=== PATIENT | female | born 1960 | race Caucasian/White ===

== ENCOUNTER 2023-03-10 10:31 | Outpatient (OUT) | payer OTHER, SELFPAY ==
--- NOTE | 2023-03-10 10:33 | MM_ITS ---
Patient: VIRGILIO MOREL Exam Date: 03/10/2023 : 1960 Gender:F Ordering : DR JOHANA RIVAS M.D. Admission #: [id number] Family : Order #: [id number] CLICK HERE TO VIEW EXAM RADIOLOGY REPORT PROCEDURE: MM TOMOSYNTHESIS SCREENING BI COMPARISON: MG MAMM SCREEN ELI W CAD, 05/30/2017. MG MAMM ELI SCRN W CAD DIG, 12/04/2013. INDICATIONS: Screening Calculator Name NCI Breast Cancer Risk Assessment Tool 5 Year Breast Cancer Risk 2.00% Lifetime Breast Cancer Risk 9.00% Personal Breast Cancer No Personal Ovarian Cancer No Treatments None Family Cancers None LOCATION: [facility] BREAST COMPOSITION: Heterogeneously dense,which may obscure small masses. FINDINGS: DIAGNOSTIC CATEGORY 2--BENIGN FINDING: RIGHT BREAST: No significant suspicious finding. Scattered benign-appearing lymph nodes are present. No significant change has occurred. LEFT BREAST: No significant suspicious finding. Scattered benign-appearing lymph nodes are present. No significant change has occurred. RECOMMENDATIONS: ROUTINE MAMMOGRAM AND CLINICAL EVALUATION IN 12 MONTHS. PLEASE NOTE: A NORMAL MAMMOGRAM DOES NOT EXCLUDE THE POSSIBILITY OF BREAST CANCER. A CLINICALLY SUSPICIOUS PALPABLE LUMP SHOULD BE BIOPSIED. Dictated by: Eleazar Valle M.D. on 03/10/2023 at 14:29 Approved by: Eleazar Valle M.D. on 03/10/2023 at 14:32
== END 2023-03-10 10:32 | disposition home or self-care (01) ==
LOC: MAMMO 10:31
PROVIDERS: PCP Family Medicine; Visit Provider Family Medicine
DX: Z12.31 Encounter for screening mammogram for malignant neoplasm of breast (principal)
CPT/HCPCS: 77063; 77067

== ENCOUNTER 2024-03-24 07:43 | Outpatient (OUT) | payer OTHER, SELFPAY ==
[2024-03-24 08:22] LABS: Basophils Percent Auto 0.3 % (0.2-2.0); Eosinophils Absolute Auto 0.2 10^3/uL (0.0-0.7); Eosinophils Percent Auto 3.5 % (0.9-7.0); Hematocrit 32.8 % (36.0-48.0); Hemoglobin 10.8 g/dL (12.0-16.0); Immature Granulocytes Abs Auto 0.02 10^3/uL (0.00-0.03); Immature Granulocytes Pct Auto 0.3 % (0.0-0.5); Lymphocytes Absolute Auto 1.7 10^3/uL (1.2-3.8); Lymphocytes Percent Auto 28.7 % (20.5-60.0); Mean Corpuscular HGB Conc 32.9 g/dL (29.9-35.2); Mean Corpuscular Hemoglobin 29.9 pg (26.7-34.0); Mean Corpuscular Volume 90.9 fL (81.0-99.0); Mean Platelet Volume 9.5 fL (9.5-13.5); Monocytes Absolute Auto 0.5 10^3/uL (0.3-0.8); Monocytes Percent Auto 7.4 % (1.7-12.0); Neutrophils Absolute Auto 3.6 10^3/uL (1.4-6.5); Neutrophils Percent Auto 59.8 % (43.0-75.0); Platelet Count 251 10^3/uL (150-450); Red Blood Count 3.61 10^6/uL (4.20-5.40); Red Cell Distribution Width 12.9 % (11.0-15.0); White Blood Count 6.1 10^3/uL (4.0-11.0)
[2024-03-24 09:08] LABS: Free T4 0.78 ng/dL (0.76-1.46)
[2024-03-24 10:00] LABS: Alanine Aminotransferase 23 U/L (14-59); Albumin Globulin Ratio 1.1; Albumin Level 3.8 g/dL (3.4-5.0); Alkaline Phosphatase 81 U/L (46-116); Anion Gap 16.2; Aspartate Amino Transferase 19 U/L (15-37); BUN Creatinine Ratio 33.3; Bilirubin Total 0.4 mg/dL (0.2-1.0); Calcium 8.9 mg/dL (8.5-10.1); Carbon Dioxide 21.6 mmol/L (21.0-32.0); Chloride 105 mmol/L (98-107); Chol HDL Ratio 2.4; Cholesterol 149 mg/dL (<=200); Estimated GFR (African America >60 (>=60); Estimated GFR (Non-African Ame 53 (>=60); Globulin 3.5 g/dL; Glucose 125 mg/dL (74-106); HDL Cholesterol 61 mg/dL (40-60); Potassium 3.8 mmol/L (3.5-5.1); Sodium 139 mmol/L (136-145); Thyroid Stimulating Hormone 1.649 uIU/mL (0.358-3.740); Total Protein 7.3 g/dL (6.4-8.2); Triglycerides 117 mg/dL (<=150); VLDL CHOLESTEROL 23.4 mg/dL
== END 2024-03-24 07:44 | disposition home or self-care (01) ==
PROVIDERS: PCP Family Medicine; Visit Provider Registered Nurse
DX: E78.2 Mixed hyperlipidemia (principal); E11.9 Type 2 diabetes mellitus without complications; Z79.4 Long term (current) use of insulin; I10 Essential (primary) hypertension; E03.9 Hypothyroidism, unspecified
CPT/HCPCS: 36415; 80053; 80061; 84439; 84443; 85025

== ENCOUNTER 2025-01-08 03:44 | Emergency (ER) | payer OTHER, SELFPAY ==
[2025-01-08 03:46] VITALS: BP 196/69; PULSE 79; TEMP 36.7; O2SAT 100; BMI 33.5
--- NOTE | 2025-01-08 04:05 | XR_ITS ---
The [address] [address] Patient Name: VIRGILIO MOREL MRN: [id number] date: 1960 Sex: F Assigned Patient Location: ER Current Patient Location: ED.MAIN Accession/Order Number: [id number] Exam Date: 01/08/2025 06:11 Report Date: 01/08/2025 06:13 At the request of: RAQUEL MIXON MD Procedure: XR hand LT min 3V XR hand LT min 3V 01/08/2025 4:37 AM SIGNS AND SYMPTOMS: ^fall PROTOCOL: Frontal, lateral, and oblique radiographs of the left hand COMPARISON: None FINDINGS: There is a transversely oriented minimally displaced fracture at the base of the fifth metacarpal. There is minimal narrowing of the distal interphalangeal joints. The radiocarpal joint is preserved. Soft tissue swelling is noted at the base of the hand near the fifth metacarpal. XR/XR hand LT min 3V IMPRESSION: There is a transversely oriented minimally displaced fracture at the base of the fifth metacarpal. Impression dictated by: Koko Monge M.D. 01/08/2025 6:13 AM Dictation Location: [place] [address] Electronically authenticated by: [id number] Y Date: 01/08/2025 06:13
--- NOTE | 2025-01-08 04:05 | CT_ITS ---
[address] [address] Patient Name: VIRGILIO MOREL MRN: [id number] date: 1960 Sex: F Assigned Patient Location: ER Current Patient Location: .[facility] Accession/Order Number: [id number] Exam Date: 01/08/2025 06:13 Report Date: 01/08/2025 06:21 At the request of: RAQUEL MIXON MD Procedure: CT cervical spine wo con CT head/brain wo con, CT cervical spine wo con 01/08/2025 4:37 AM SIGNS AND SYMPTOMS: Fall hitting head and face on concrete floor with laceration to forehead above left eyebrow TECHNIQUE:Multi-detector CT axial slices of the brain and cervical spine were obtained without IV contrast. Helical,sagittal, coronal, and 3-D reconstructions of the cervical spine were performed. CT was performed with one or more of the following dose reduction techniques: Automated exposure control, adjustment of the mA and/or kV according to patient size, or use of iterative reconstruction technique. COMPARISON: None. FINDINGS: Noncontrast head CT: There is no shift of the midline structures, acute intracranial bleeding, mass effects, or evidence of acute ischemia. The ventricular system is normal in size. The brainstem and the cerebellum are unremarkable. The visualized intraorbital contents, the visualized paranasal sinuses, and the infratemporal soft tissues show no acute abnormality. The osseous structures in the skull base and the calvarium show no abnormality. Subcutaneous emphysema is noted along the superior rim of the left orbit consistent with the history of laceration. There is soft tissue swelling at the bridge of the nose. Cervical spine: There is preservation of the vertebral body heights. There is moderate disc height loss at C5-C6 with mild disc height loss at C6-C7 and C4-C5. No fractures or dislocations are seen. There is 3 mm of anterolisthesis of C4 upon C5 secondary to facet hypertrophy. There is partial bony fusion across the facets at C2-C3.. The craniocervical junction and atlantoaxial joint are within normal limits. The prevertebral soft tissues are within normal limits. The paraspinous soft tissues are within normal limits. The lung apices are unremarkable. CT/CT cervical spine wo con IMPRESSION: No acute intracranial pathology. Subcutaneous emphysema is noted along the superior rim of the left orbit consistent with the history of laceration. There is soft tissue swelling at the bridge of the nose. No acute cervical spine injury. Degenerative changes are noted in the cervical spine as above. Impression dictated by: Koko Monge M.D. 01/08/2025 6:21 AM Dictation Location: [place] [address] Electronically authenticated by: [id number] Y Date: 01/08/2025 06:21
--- NOTE | 2025-01-08 04:05 | CT_ITS ---
[address] [address] Patient Name: VIRGILIO MOREL MRN: [id number] date: 1960 Sex: F Assigned Patient Location: ER Current Patient Location: [facility] Accession/Order Number: [id number] Exam Date: 01/08/2025 06:13 Report Date: 01/08/2025 06:21 At the request of: RAQUEL MIXON MD Procedure: CT cervical spine wo con CT head/brain wo con, CT cervical spine wo con 01/08/2025 4:37 AM SIGNS AND SYMPTOMS: Fall hitting head and face on concrete floor with laceration to forehead above left eyebrow TECHNIQUE:Multi-detector CT axial slices of the brain and cervical spine were obtained without IV contrast. Helical,sagittal, coronal, and 3-D reconstructions of the cervical spine were performed. CT was performed with one or more of the following dose reduction techniques: Automated exposure control, adjustment of the mA and/or kV according to patient size, or use of iterative reconstruction technique. COMPARISON: None. FINDINGS: Noncontrast head CT: There is no shift of the midline structures, acute intracranial bleeding, mass effects, or evidence of acute ischemia. The ventricular system is normal in size. The brainstem and the cerebellum are unremarkable. The visualized intraorbital contents, the visualized paranasal sinuses, and the infratemporal soft tissues show no acute abnormality. The osseous structures in the skull base and the calvarium show no abnormality. Subcutaneous emphysema is noted along the superior rim of the left orbit consistent with the history of laceration. There is soft tissue swelling at the bridge of the nose. Cervical spine: There is preservation of the vertebral body heights. There is moderate disc height loss at C5-C6 with mild disc height loss at C6-C7 and C4-C5. No fractures or dislocations are seen. There is 3 mm of anterolisthesis of C4 upon C5 secondary to facet hypertrophy. There is partial bony fusion across the facets at C2-C3.. The craniocervical junction and atlantoaxial joint are within normal limits. The prevertebral soft tissues are within normal limits. The paraspinous soft tissues are within normal limits. The lung apices are unremarkable. CT/CT head/brain wo con IMPRESSION: No acute intracranial pathology. Subcutaneous emphysema is noted along the superior rim of the left orbit consistent with the history of laceration. There is soft tissue swelling at the bridge of the nose. No acute cervical spine injury. Degenerative changes are noted in the cervical spine as above. Impression dictated by: Koko Monge M.D. 01/08/2025 6:21 AM Dictation Location: [place] [address] Electronically authenticated by: [id number] Y Date: 01/08/2025 06:21
--- NOTE | 2025-01-08 04:11 | ED.HEATRA1 ---
HPI HPI - Head Injury General Chief complaint: Fall Stated complaint: FALL, HEAD INJURY Time Seen by Provider: 01/08/25 04:00 Source: patient Mode of arrival: ambulance Limitations: no limitations History of Present Illness HPI Narrative: walking down stairs at work and fell down last couple of stairs. Struck her forehead. no LOC. No neck pain. Also injured her left hand. No numbness or weakness or her extremities. No nausea or vomiting or dizziness Related Data Allergies Allergy/AdvReac Type Severity Reaction Status Date / Time Penicillins AdvReac Mild Rash Verified 01/08/25 03:51 Opioid HPI Opioid Management Most Recent Pain and Opioid Data: Last Pain Scale 7 Today, 03:46 Review of Systems ROS Status of ROS 10 or more systems reviewed and unremarkable except as noted in history and below PFSH PFSH Social History Little interest or pleasure in doing things: not at all Feeling down, depressed, or hopeless: not at all Exam Constitutional Vital Signs, click to edit/add: Last Vital Signs Temp 98.1 F 01/08/25 03:46 Pulse 79 01/08/25 03:46 Resp 20 01/08/25 03:46 BP 196/69 H 01/08/25 03:46 Pulse Ox 100 01/08/25 03:46 O2 Del Method Room Air 01/08/25 03:46 Common normals: no apparent distress, average body habitus, oriented x3, no limitations, healthy appearing, alert and well nourished [facility] Face and sinus images:  1. full thickness lac Eye Common normals: PERRL and EOMs intact bilaterally Neck & C-Spine Common normals: full ROM Chest Common normals: inspection of chest normal Respiratory Common normals: normal respiratory effort, no retractions, no use of accessory muscles and clear to auscultation bilaterally Cardio Common normals: regular rate, regular rhythm, S1 normal heart sound and S2 normal heart sound GI Common normals: Normal to inspection, nondistended, normoactive bowel sounds present Inspection: normal to inspection Extremity Other: mild swelling dorsum left hand Neuro Common normals: oriented x3, CN's II-XII intact bilaterally, moves all extremities and no focal motor deficits Psych Appearance: grossly normal Course Vital Signs Vital signs: Vital Signs Temperature 98.1 F 01/08/25 03:46 Pulse Rate 79 01/08/25 03:46 Respiratory Rate 20 01/08/25 03:46 Blood Pressure 196/69 H 01/08/25 03:46 Pulse Oximetry 100 01/08/25 03:46 Oxygen Delivery Method Room Air 01/08/25 03:46 Temperature 98.1 F 01/08/25 03:46 Pulse Rate 79 01/08/25 03:46 Respiratory Rate 20 01/08/25 03:46 Blood Pressure 196/69 H 01/08/25 03:46 Pulse Oximetry 100 01/08/25 03:46 Oxygen Delivery Method Room Air 01/08/25 03:46 MDM - Head Injury MDM Narrative Medical decision making narrative: fell on the stairs at work. Struck her forehead. lacerated forehead and injured left hand. No LOC. No neuro symptoms. no weakness, numbness, dizziness or visual complaints. CT brain and C-spine ordered as well as xray left hand. lac repaired as above. patient also given tetanus . xray with fracture proximal 5th metacarpal nondisplaced . Patient placed in splint. CT studies pending. CT with evidence of SQ emphysema at site of forehead lac. Patient given dose of clindamycin and discharged home with a prescription for clindamycin Imaging Data Chest x-ray: Radiologist's impression: ITS Impressions Cervical Spine CT 01/08/25 04:05 IMPRESSION: No acute intracranial pathology. Subcutaneous emphysema is noted along the superior rim of the left orbit consistent with the history of laceration. There is soft tissue swelling at the bridge of the nose. No acute cervical spine injury. Degenerative changes are noted in the cervical spine as above. Impression dictated by: Koko Monge M.D. 01/08/2025 6:21 AM Dictation Location: [employer] Electronically authenticated by: [id number] Y Date: 01/08/2025 06:21 Hand X-Ray 01/08/25 04:05 IMPRESSION: There is a transversely oriented minimally displaced fracture at the base of the fifth metacarpal. Impression dictated by: Koko Monge M.D. 01/08/2025 6:13 AM Dictation Location: [employer] Electronically authenticated by: [id number] Y Date: 01/08/2025 06:[address] 01/08/25 04:05 IMPRESSION: No acute intracranial pathology. Subcutaneous emphysema is noted along the superior rim of the left orbit consistent with the history of laceration. There is soft tissue swelling at the bridge of the nose. No acute cervical spine injury. Degenerative changes are noted in the cervical spine as above. Impression dictated by: Koko Monge M.D. 01/08/2025 6:21 AM Dictation Location: [place] [address] Electronically authenticated by: [id number] Y Date: 01/08/2025 06:21 Discharge Plan Discharge Chief Complaint: Fall Clinical Impression: Closed head injury, Facial laceration, Left hand fracture Patient Disposition: Home, Self-Care Print Language: Occitan Instructions: Laceration (ED), Hand Fracture (ED), Head Injury (ED) Additional Instructions: have wound rechecked in 2-3 days and stitches removed in 5-6 days. Follow up with orthopedics Dr Perdomo or with orthopedics industrial medicine. keep hand elevated Referrals: JOHANA RIVAS [Primary Care Provider, [facility]] - 1 week Procedures ED Procedure Instructions Procedures Procedures: 7cm lac SQ space forehead. 1% lido as local. Site cleaned with betadine. rinsed with saline. No FB seen. Repaired with #2 5.0 vicryl and # 8 5.0 nylon stitches. Tolerated well left hand fracture. ulnar gutter fiber glass splint fashioned onto her hand. Patient tolerated well. no complications. N/V intact
--- OUTSIDE RECORDS SUMMARY | 2025-01-08 04:24 | XMS_ITS | CCD ---
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 Name Role Phone Oswaldo Grewal MD Primary Care Provider Oswaldo Grewal Unavailable Unavailable Unavailable Kindra Peralta Unavailable MARY KATE Bhardwaj Primary Care Provider MD Josep Perdomo Attending Provider MD Jose Jordan Attending Provider Oswaldo Grewal Unavailable Lashon Longoria Unavailable Josep Perdomo Unavailable [phone] Abdiaziz Nash Unavailable Unavailable Amanda Saucedo Unavailable Unavailable Oswaldo Grewal MD Primary Care Provider MARY KATE Bhardwaj Primary Care Provider [phone] DO Spenser Canchola Attending Provider MARY KATE Bhardwaj Primary Care Provider DO Spenser [place]chola Attending Provider Oswaldo Grewal MD Primary Care Provider KEO Daniels Primary Care Provider KEO Daniels Attending Provider Josep Perdomo Unavailable VIOLET COMBS Admitting Unavailable VIOLET COMBS Attending Unavailable OSWALDO GREWAL Primary Care Unavailable Kiepert, Yajaira Admitting Unavailable Kiepert, Yajaira Attending Unavailable Kiepert, Yajaira Primary Care Unavailable Murcek, Spenser Attending Unavailable Murcek, Spenser Admitting Unavailable Cornwall, Noemi Primary Care Unavailable Kiepert, Yajaira Primary Care Unavailable Murcek, Spenser Attending Unavailable Murcek, Spenser Admitting Unavailable Kiepert, Yajaira Primary Care Unavailable Murcek, Spenser Admitting Unavailable Murcek, Spenser Attending Unavailable Kiepert, Yajaira Primary Care Unavailable Murcek, Spenser Attending Unavailable Murcek, Spenser Admitting Unavailable Cornwall, Noemi Admitting Unavailable Cornwall, Noemi Attending Unavailable Jeremiah, Noemi Primary Care Unavailable Murcek, Spenser Attending Unavailable Murcek, Spenser Admitting Unavailable Cornwall, Noemi Primary Care Unavailable Kiepert, Yajaira Primary Care Unavailable Attizzani, Jose Attending Unavailable Attizzani, Jose Admitting Unavailable Traboulssi, Mourhaf Attending Unavailable Kiepert, Yajaira Primary Care Unavailable Traboulssi, Mourhaf Admitting Unavailable Traboulssi, Mourhaf Attending Unavailable Kiepert, Yajaira Primary Care Unavailable Traboulssi, Mourhaf Admitting Unavailable Cornwall, INDUSTRIAL CHEMISTRY TEACHER Noemi Primary Care Provider Unavailab le MurdaniellaDO deborah Spenser Attending Provider Jeremiah, INDUSTRIAL CHEMISTRY TEACHER Noemi Attending Provider Unavailable JEREMIAH, NOEMI Admitting Unavailable JEREMIAH, NOEMI Attending Unavailable KIEPERT, YAJAIRA Primary Care Unavailable MISC, DR HUSSEIN Admitting Unavailable MISC, DR HUSSEIN Attending Unavailable KIEPERT, YAJAIRA Primary Care Unavailable MISC, DR HUSSEIN Consulting Unavailable JEREMIAH, NOEMI Admitting Unavailable JEREMIAH, NOEMI Attending Unavailable KIEPERT, YAJAIRA Primary Care Unavailable ZIEBER, DR YULIA Robins Consulting Unavailable JEREMIAH, NOEMI Consulting Unavailable REQUEST, DR NONE LISTED Admitting Unavaila ble REQUEST, DR WAHL LISTED Attending Unavaila ble KIEPERT, YAJAIRA Primary Care Unavailable MISC, DR HUSSEIN Consulting Unavailable MISC, DR HUSSEIN Admitting Unavailable MISC, DR HUSSEIN Attending Unavailable GREWAL, DR VAUGHN Primary Care Unavailable MISC, DR HUSSEIN Consulting Unavailable Traboulssi, Mourhaf A Unavailable [phone] Conor, Dr. Carrasco Attending Unavaila ble Grewal, Dr. Oswaldo Saini Primary Care Unavailab le Traboulssi, Dr. Carrasco Referring Unavaila ble Grewal, Dr. Oswaldo Saini Primary Care Unavailab Lashon Naranjo Attending Unavailable MD PAZ JORDAN Admitting Unavailable Traboulssi, Dr. Carrasco Referring Unavaila ble EFFIE SAUCEDO Attending Unavailable Grewal, Dr. Oswaldo Saini Primary Care Unavailab le Grewal, Dr. Oswaldo Saini Primary Care Unavailab Abdiaziz Watson Attending Unavailable Traboulssi, Dr. Carrasco Referring Unavaila ble Traboulssi, Dr. Carrasco Attending Unavaila ble Grewal, Dr. Oswaldo Saini Primary Care Unavailab le Traboulssi, Dr. Carrasco Attending Unavaila ble Grewal, Dr. Oswaldo Saini Primary Care Unavailab le Traboulssi, Dr. Carrasco Referring Unavaila ble Richardi Josep FLORES Unavailable GREWALOSWALDO Primary Care Unavailable SCOTCH, LUCAS Attending Unavailable GREWAL, OSWALDO SAINI Primary Care Unavailable SCOTCH, LUCAS Referring Unavailable GREWAL, OSWALDO SAINI Primary Care Unavailable VIOLET COMBS Attending Unavailable GREWAL, OSWALDO SAINI Primary Care Unavailable VIOLET COMBS Referring Unavailable GREWAL, OSWALDO SAINI Primary Care Unavailable GREWAL, OSWALDO SAINI Primary Care Unavailable SCOTCH, LUCAS Attending Unavailable SCOTCH, LUCAS Attending Unavailable GREWAL, OSWALDO SAINI Primary Care Unavailable VIOLET COMBS Attending Unavailable GREWAL, OSWALDO SAINI Primary Care Unavailable SCOTCH, LUCAS Referring Unavailable GREWAL, OSWALDO SAINI Primary Care Unavailable SCOTCH, LUCAS Attending Unavailable SCOTCH, LUCAS Referring Unavailable GREWAL, OSWALDO SAINI Primary Care Unavailable SELF Referring Unavailable SCOTCH, LUCAS Attending Unavailable GERWAL, OSWALDO SAINI Primary Care Unavailable Oswaldo Grewal MD Primary Care Provider JOSEP PERDOMO Attending Unavailable GREWALOSWALDO Primary Care Unavailable Oswaldo Grewal MD Primary Care Provider Oswaldo Grewal MD Primary Care Provider [phone] Lause INDUSTRIAL CHEMISTRY TEACHER, Guerline R Unavailable Kendall INDUSTRIAL CHEMISTRY TEACHER, Noemi Unavailable Violet Combs Attending Unavailable Violet Combs Admitting Unavailable OSWALDO GREWAL Primary Care Unavailable KENDALL, NOEMI Attending Unavailable GREGG, VALENTINA W Attending Unavailable GREGG, VALENTINA W Attending Unavailable GREGGMIKHAIL GUTIERREZNDAN W Attending Unavailable NOEMI ARGUETA Attending Unavailable DOLBIN BREWER Attending Unavailable DOLBIN BREWER Attending Unavailable DOLCE, BIN Ferreira Attending Unavailable DOLCE, BIN D Attending Unavailable DOLDANIELLA, BIN Ferreira Attending Unavailable GREGGVALENTINA GUTIERREZ W Attending Unavailable KENDALL, NOEMI Attending Unavailable Allergies Allergy Classification Reported Allergen(s) Allergy Type Date of Onset Reaction(s) Facility (20 sources) Latex; Translations: [LATEX] Drug Intolerance 06-18-20 13 Intolerance [facility] (11 sources) Penicillins; Translations: [PENICILLINS] Drug Allergy 06-18-20 13 Rash [facility] (20 sources) dorzolamide; Translations: [Trusopt] Drug Allergy 08-04-19 24 Unknown [place] [address] DO Work Phone: (20 sources) dorzolamide / Timolol; Translations: [Cosopt] Drug Allergy 08-04-19 24 Unknown [place] [address] DO Work Phone: (20 sources) Levalbuterol; Translations: [levalbuterol] Drug Allergy 08-04-19 24 Unknown [place] [address] DO Work Phone: (18 sources) Penicillins; Translations: [Penicillins] Allergy to drug (finding) Unknown [place] [address] DO Work Phone: (20 sources) Timolol; Translations: [timolol] Drug Allergy 08-04-19 Unknown [place] [address] DO Work Phone: (17 sources) Brimonidine Tartrate POWD; Translations: [Brimonidine Tartrate POWD] Allergy to drug (finding) [place] [address] DO Work Phone: (2 sources) Penicillin G Drug Allergy hives [facility] [employer] Other (8 sources) Elastic Propensity to adverse reactions 02-03-20 22 rash [facility] (1 source) brimonidine Drug Allergy Unknown [facility] (1 source) dorzolamide Drug Allergy Unknown [facility] (1 source) dorzolamide / Timolol Drug Allergy Unknown [facility] (20 sources) Penicillins Drug Allergy 06-18-20 13 Rash, Unknown [facility] (3 sources) Adhesive Tape Allergy to substance (finding) -[facility] DO Work Phone: (1 source) Penicillins Drug allergy (disorder) 06-26-20 15 [facility] Rep[facility] (3 sources) brimonidine; Translations: [BRIMONIDINE] Drug Allergy 08-04-19 24 Unknown [facility] Work Phone: (1 source) dorzolamide; Translations: [DORZOLAMIDE] Drug Allergy 08-04-19 24 [facility] Repository (1 source) dorzolamide / Timolol; Translations: [DORZOLAMIDE-TI MOLOL] Drug Allergy 08-04-19 24 [facility] Repository (20 sources) brimonidine Drug Allergy 08-04-19 24 Unknown [facility] (20 sources) Latex Propensity to adverse reactions 06-18-20 13 [facility] (20 sources) Penicillins Drug Allergy 06-18-20 13 Rash [facility] (20 sources) Other Allergy to substance 05-03-20 21 [facility] (1 source) quynh bandage; Translations: [Unknown] Propensity to adverse reactions to drug (disorder) [facility] Repository Medications Current Medications Medication Drug Class(es) Dates Sig (Normalized) Sig (Original) acetaminophen 500 mg oral tablet (20 sources) Start: 02-02-2022 take 500 mg by mouth every four to six hours Acetaminophen Active 500 MG PO EVERY 4-6 HOURS February 01, 2022 11:00pm Start: 02-05-2020 End: 07-29-2023 take 2 tablets by mouth every eight hours acetaminophen (TYLENOL) 500 mg tablet Take 2 tablets by mouth every 8 hours. 02/05/2020 07/29/2023 Discontinued (Course of therapy completed) Comment on above: Take 2 tablets by mo [facility] every 8 hours. acetaminophen 325 mg / HYDROcodone bitartrate 5 mg oral tablet (2 sources) Opioid Agonist Start: End: take 1 tablet by mouth every six hours as needed for pain HYDROcodone-acetamin ophen ([place]) 5-325 MG tablet Indications: Pain Take 1 tablet by mouth every 6 (six) hours if needed for moderate pain (PRN pain) for up to 5 days 10 tablet 05/22/2024 05/27/2024 Active 12 hr acetaZOLAMIDE 500 mg extended release oral capsule (20 sources) Carbonic Anhydrase Inhibitor Start: End: take 1 capsule by mouth twice daily acetaZOLAMIDE (Diamox) 500 MG 12 hr capsule TAKE 1 CAPSULE BY MOUTH TWICE DAILY DIRECTED 02/23/2023 08/03/2024 Discontinued (Therapy completed) Comment on above: Take 500 mg by mouth two times a day. amLODIPine 10 mg oral tablet (20 sources) Dihydropyridine Calcium Channel Radha Start: End: take 1 tablet by mouth once daily amLODIPine (Norvasc) 10 MG tablet Indications: Primary hypertension (CMS/HCC) Take 1 tablet (10 mg) by mouth Daily 08/03/2024 01/30/2025 Active Start: 10-06-2022 take 1 tablet by pernell th once daily amLODIPine Besylate 10 MG Oral Tablet TAKE 1 TABLET DAILY. Quantity: 90 Refills: 3 Ordered: 06-Oct-2022 Josep Perdomo MD Start : 06-Oct-2022 Active dose change Start: 06-20-2018 take 1 tablet by pernell th once daily amLODIPine (NORVASC) 5 mg tablet Take 5 mg by mouth once daily. 05/05/2022 Active Start: 06-25-2013 End: 08-05-2022 take 1 tablet by mouth once daily amLODIPine (NORVASC) 10 mg tablet Indications: Hypertension Take 1 tablet by mouth once daily. 0 06/25/2013 08/05/2022 Discontinued Comment on above: Take 1 tablet by pernell th once daily. Take 5 mg by mouth o nce daily. aspirin 81 mg delayed release oral tablet (20 sources) Platelet Aggregation Inhibitor, Nonsteroidal Anti-inflammatory Drug Start: 08-20-2022 End: 09-17-2024 aspirin 81 MG EC tablet 1 (one) time each day at the same time. 08/20/2022 09/17/2024 Discontinued (Patient refused) Start: 03-20-2022 End: 07-17-2022 take 1 tablet by mouth once daily Aspirin Low Dose 81 MG Oral Tablet Delayed Release Take 1 tablet daily Quantity: 90 Refills: 1 Ordered: 20-Mar-2022 DO Start : 20-Mar-2022 Active Start: 03-20-2022 take 1 tablet by pernell th twice daily Aspirin Low Dose 81 MG Oral Tablet Delayed Release Take 1 tablet twice daily Quantity: 180 Refills: 1 Ordered: 20-Mar-2022 DO Start : 20-Mar-2022 Active Start: 02-05-2020 End: 12-09-2021 take 1 tablet by mouth twice daily aspirin, enteric coated (ASPIRIN, ENTERIC COATED) 81 mg EC tablet Take 1 tablet by mouth twice daily. 84 tablet 02/05/2020 12/09/2021 Discontinued (Course of therapy completed) Comment on above: Take 1 tablet by pernell th twice daily for 4 weeks atorvastatin 10 mg oral tablet (20 sources) HMG-CoA Reductase Inhibitor Start: 03-22-20 End: 03-16-20 take 1 tablet by mouth once daily atorvastatin (Lipitor) 10 MG tablet Indications: Hypertriglyceridemia (CMS/HCC) Take 1 tablet (10 mg) by mouth Daily 08/03/2024 01/30/2025 Active Comment on above: TK 1 T PO QD brimonidine tartrate 2 mg/ml ophthalmic solution (20 sources) alpha-Adrenergic Agonist Start: 06-16-20 take 1 drop(s) into the eye(s) twice daily brimonidine (ALPHAGAN) 0.2 % ophthalmic solution Use 1 Drop in both eyes two times a day. 06/16/2023 Active Start: 02-15-2023 take 1 drop(s) into the eye(s) in the morning brimonidine (AlphaGAN P) 0.2 % ophthalmic solution Administer 1 drop into both eyes in the morning and 1 drop before bedtime. 02/15/2023 Active Comment on above: Use 1 Drop in both e yes two times a day. chlorthalidone 25 mg oral tablet (20 sources) Thiazide-like Diuretic Start: 2022 take 1 tablet by mouth once daily chlorthalidone (Hygroton) 25 MG tablet Take 25 mg by mouth Daily 11/30/2022 Active Comment on above: Take 1 tablet by pernell th every afternoon. dexamethasone 0.001 mg/mg / neomycin 0.0035 mg/mg / polymyxin b 10 unt/mg ophthalmic ointment (20 sources) Aminoglycoside Antibacterial, Polymyxin-class Antibacterial, Corticosteroid Start: 2023 End: 2024 [id number] exAMETHasone (Polydex) 3.5-27321-8.1 ointment ophthalmic ointment APPLY 1/2 INCH INTO BOTH EYES TWICE A DAY 11/14/2023 09/17/2024 Discontinued (Patient refused) dextromethorphan hydrobromide 30 mg / pyrilamine maleate 30 mg oral tablet (2 sources) Uncompetitive V-ipsdvf-Y-aspartate Receptor Antagonist, Sigma-1 Agonist Start: 2019 [place] DMT 30-30 MG as directed Orally every 6 hours as needed for cough for 5 days Jul, Active diclofenac sodium 50 mg delayed release oral tablet (20 sources) Nonsteroidal Anti-inflammatory Drug Start: 2023 End: 2024 diclofenac (Voltaren) 50 MG EC tablet 08/28/2023 09/17/2024 Discontinued (Patient refused) Comment on above: Take 1 tablet by pernell th two times a day with meals. dicyclomine hydrochloride 20 mg oral tablet (20 sources) Anticholinergic Start: 2015 End: 2024 take 1 tablet by mouth in the morning dicyclomine (Bentyl) 20 MG tablet Indications: Irritable bowel syndrome, unspecified type Take 1 tablet (20 mg) by mouth in the morning and 1 tablet (20 mg) before bedtime. 60 tablet 5 11/12/2024 05/11/2025 Active Comment on above: Take 20 mg by mouth twice daily. ferrous sulfate 325 mg delayed release oral tablet (4 sources) End: 2023 take 1 tablet by mouth three times daily at mealtime ferrous sulfate 325 (65 Fe) MG EC tablet Take 65 mg by mouth 3 times a day with meals. Do not crush, chew, or split. 0 09/09/2023 Discontinued (Therapy completed) take 1 tablet by mouth once ilsa Kerns 325 (65 Fe) MG Oral Tablet TAKE 1 TABLET DAILY DIRECTED. Quantity: 0 Refills: 0 Ordered: 06-Oct-2022 DO Active fluorouracil 50 mg/ml topical cream (11 sources) Nucleoside Metabolic Inhibitor Start: 05-15-2024 End: 06-14-2024 gabapentin 600 mg oral tablet (20 sources) Anti-epileptic Agent Start: 10-15-2024 End: 01-13-2025 take 0.5 tablet by mouth in the morning, then take 0.5 tablet by mouth in the evening, then take 0.5 tablet by mouth at bedtime gabapentin (Neurontin) 600 MG tablet Indications: Acute left-sided low back pain with left-sided sciatica Take 0.5 tablets (300 mg) by mouth in the morning and 0.5 tablets (300 mg) in the evening and 0.5 tablets (300 mg) before bedtime. 45 tablet 2 10/15/2024 01/13/2025 Active Start: 09-17-2024 End: 10-17-2024 take 1 tablet by mouth in the morning, then take 1 tablet by mouth in the evening, then take 1 tablet by mouth at bedtime gabapentin (Neurontin) 600 MG tablet Indications: Acute left-sided low back pain with left-sided sciatica Take 1 tablet (600 mg) by mouth in the morning and 1 tablet (600 mg) in the evening and 1 tablet (600 mg) before bedtime. 90 tablet 09/17/2024 10/15/2024 Discontinued (Reorder) Start: 06-26-2024 End: 09-17-2024 take 1 capsule by mouth in the morning, then take 1 capsule by mouth in the evening, then take 1 capsule by mouth at bedtime gabapentin (Neurontin) 300 MG capsule Indications: Restless legs syndrome Take 1 capsule (300 mg) by mouth in the morning and 1 capsule (300 mg) in the evening and 1 capsule (300 mg) before bedtime. 08/03/2024 09/17/2024 Discontinued Start: 02-22-2024 End: 04-19-2024 take 1 capsule by mouth in the morning, then take 1 capsule by mouth in the evening, then take 1 capsule by mouth at bedtime gabapentin (Neurontin) 300 MG capsule Indications: Restless legs syndrome Take 1 capsule (300 mg) by mouth in the morning and 1 capsule (300 mg) in the evening and 1 capsule (300 mg) before bedtime. 90 capsule 2 03/20/2024 04/19/2024 Active Start: 01-29-2022 take 200 mg by mouth twice risa ly Gabapentin Active 200 MG PO Twice daily January 28, 2022 11:00pm Start: 01-29-2022 take 100 mg by mouth four times daily Gabapentin Active 100 MG PO Four times daily January 29, 2022 12:00am Start: 10-17-2019 take 1 capsule by mo uth twice daily gabapentin (NEURONTIN) 100 mg capsule Take 1 capsule by mouth twice daily for 30 days. 60 capsule 10/17/2019 Active take 2 capsules by m outh twice daily gabapentin (Neurontin) 100 mg capsule Take 2 capsules (200 mg) by mouth 2 times a day. Active Gabapentin Activ e Comment on above: Take 1 capsule by mo uth twice daily for 30 days. ibuprofen 200 mg oral tablet (20 sources) Nonsteroidal Anti-inflammatory Drug Start: 05-19-2022 take 200 mg by mouth every six hours Ibuprofen Active 200 MG PO Q6H May 18, 2022 11:00pm Ibuprofen 200 MG Oral Tablet TAKE TABLET PRN Quantity: 0 Refills: 0 Ordered: 23-Dec-2021 DO Active Ibuprofen Active latanoprost 0.05 mg/ml ophthalmic solution (20 sources) Prostaglandin Analog Start: 07-17-2023 take 1 drop(s) into the eye(s) once daily latanoprost (XALATAN) 0.005 % ophthalmic solution Use 1 Drop in both eyes once daily. 07/17/2023 Active Start: 02-15-2023 take 1 drop(s) into the eye(s) at bedtime latanoprost (Xalatan) 0.005 % ophthalmic solution Administer 1 drop into both eyes at bedtime 02/15/2023 Active End: 08-05-2022 take 1 drop(s) into the eye(s) once daily at bedtime latanoprost (XALATAN) 0.005 % ophthalmic solution 1 Drop daily at bedtime. 08/05/2022 Discontinued Comment on above: 1 Drop daily at bedt ld. Use 1 Drop in both e yes once daily. levothyroxine sodium 0.1 mg oral tablet (20 sources) l-Thyroxine Start: 4 End: 5 take 1 tablet by mouth once daily before mealtime levothyroxine (Synthroid, Levoxyl) 100 MCG tablet TAKE 1 TABLET BY MOUTH EVERY MORNING BEFORE A MEAL 09/26/2024 Active Start: 07-09-2022 End: 03-21-2024 take 1 tablet by mouth before mealtime levothyroxine (Synthroid) 100 MCG tablet Indications: Hypothyroidism (acquired) (CMS/HCC) Take 1 tablet (100 mcg) by mouth in the morning. Take before meals. 90 tablet 1 09/23/2023 Active Comment on above: TAKE 1 TABLET BY PERNELL TH EVERY DAY IN THE MORNING ON AN EMPTY STOMACH losartan potassium 100 mg oral tablet (1 source) Angiotensin 2 Receptor Radha Start: 2 take 1 tablet by mouth once daily losartan 100 mg oral tablet ; 1 tab(s) orally once a day Quantity: 0 Refills: 0 Ordered: 20-Mar-2022 Sachin Brannon Start: 20-Mar-2022 Status: Discontinued Generic Substitution Allowed magnesium oxide 400 mg oral tablet (20 sources) Start: 4 End: 5 take 1 tablet by mouth in the morning magnesium oxide (Mag-Ox) 400 (240 Mg) MG tablet TAKE 1 TABLET BY MOUTH IN THE MORNING AND TAKE 1 TABLET BY MOUTH BEFORE BEDTIME 06/05/2024 09/17/2024 Discontinued (Patient refused) Start: 03-05-2024 End: 03-24-2024 take 1 tablet by mouth in the morning magnesium oxide (Mag-Ox) 400 (240 Mg) MG tablet TAKE 1 TABLET BY MOUTH IN THE MORNING AND TAKE 1 TABLET BY MOUTH BEFORE BEDTIME 03/05/2024 03/24/2024 Discontinued (Therapy completed) Start: 11-21-2023 End: 11-20-2024 take 1 tablet by mouth in the morning magnesium oxide (Mag-Ox) 400 mg tablet Indications: Restless legs syndrome , Other diabetic neurological complication associated with type 2 diabetes mellitus Take 1 tablet (400 mg) by mouth in the morning and 1 tablet (400 mg) before bedtime. 180 tablet 3 11/21/2023 11/20/2024 Active meloxicam 7.5 mg oral tablet (20 sources) Nonsteroidal Anti-inflammatory Drug Start: 03-24-2024 End: 08-03-2025 take 1 tablet by mouth once daily meloxicam (Mobic) 7.5 MG tablet Indications: Carpal tunnel syndrome, bilateral Take 1 tablet (7.5 mg) by mouth Daily 08/03/2024 08/03/2025 Active Start: 04-18-2018 End: 08-20-2022 take 1 tablet by mouth once daily at mealtime meloxicam (MOBIC) 15 mg tablet Take 1 tablet by mouth once daily. with food 30 tablet 1 10/17/2019 08/20/2022 Discontinued Start: 10-20-2013 take 1 tablet by pernell every twenty-four hours Meloxicam 7.5 MG 1 tablet Orally Once a day for 15 day(s) Oct, Active Comment on above: Take 1 tablet by pernell once daily. with food TAKE 1 TABLET BY PERNELL EVERY DAY WITH FOOD metFORMIN (1 source) Biguanide Metformin Active methylPREDNISolone 4 mg oral tablet (1 source) Corticosteroid Start: 2021 methylPREDNISolone 4 MG as directed Orally Once a day for 6 days Feb, Active nitrofurantoin, macrocrystals 25 mg / nitrofurantoin, monohydrate 75 mg oral capsule (1 source) Nitrofuran Antibacterial Start: 2021 End: 2021 take 1 capsule by mouth twice daily nitrofurantoin monohydrate and macrocrystal (MACROBID) 100 mg capsule Take 1 capsule by mouth twice daily for 7 days. 14 capsule 0 12/11/2021 12/18/2021 Active Comment on above: Take 1 capsule by mo [facility] twice daily for 7 days. oxyCODONE hydrochloride 5 mg oral tablet (20 sources) Opioid Agonist Start: 2022 oxyCODONE (Roxicodone) 5 MG immediate release tablet 08/20/2022 Active Start: 08-20-2022 End: 09-03-2022 take 1 tablet by mouth every four to six hours as needed oxyCODONE (Roxicodone) 5 MG immediate release tablet 1-2 tablet as needed Orally every 4-6 hrs 08/20/2022 Active Comment on above: take 1 every 4-6 karis rs as needed for pain Take 1-2 tablets by mouth every 4-6 hours as needed for pain. prednisoLONE acetate 10 mg/ml ophthalmic suspension (20 sources) Corticosteroid Start: 06-16-2023 prednisoLONE acetate (PRED FORTE) 1 % ophthalmic suspension Use 1 Drop in both eyes every Tuesday, Tuesday, and Tuesday. 06/16/2023 Active Start: 03-23-2023 prednisoLONE a cetate (Pred-Forte) 1 % ophthalmic suspension 03/23/2023 Active take 1 drop(s) into the eye(s) four times daily prednisoLONE acetate (Pred-Forte) 1 % ophthalmic suspension Administer 1 drop into both eyes 4 times a day. Active Comment on above: Use 1 Drop in both e yes every Tuesday, Tuesday, and Tuesday. predniSONE 20 mg oral tablet (8 sources) Start: 09-17-2024 predniSONE (Deltasone) 20 MG tablet Indications: Acute left-sided low back pain with left-sided sciatica Take two tablets (40 mg) daily for five days, then take one tablet (20 mg) daily for five days. Take with food. 15 tablet 09/17/2024 Active rOPINIRole 0.25 mg oral tablet (20 sources) Nonergot Dopamine Agonist Start: 02-13-2024 End: 08-03-2025 take 1 tablet by mouth at bedtime rOPINIRole (Requip) 1 MG tablet Indications: Restless Leg Syndrome Take 1 tablet (1 mg) by mouth at bedtime 90 tablet 3 08/03/2024 08/03/2025 Active Start: 09-12-2023 End: 11-09-2024 rOPINIRole (Requip) 0.25 MG tablet Indications: Restless Leg Syndrome Take 1 tablet (0.25 mg) by mouth 6 (six) times a day Patient states she takes it 1 in the morning, 1 at lunch, 2 in the evening and 2 at bed 180 tablet 11 10/10/2024 Active Start: 07-31-2018 take 1 tablet by pernell th three times daily rOPINIRole (REQUIP) 0.25 mg tablet Take 1 tablet by mouth three times daily. 10/17/2019 Active take 1 tablet by pernell th once in the morning, then take 1 tablet by mouth at lunch, then take 2 tablets by mouth in the evening, then take 2 tablets by mouth at bedtime rOPINIRole 0.25 mg oral tablet ; 1 tab orally in the morning, 1 during the lunch time, 2 tabs in evening and 2 tabs at bedtime. Quantity: 0 Refills: 0 Ordered: 19-Mar-2022 Narcisa Estevez Generic Substitution Allowed Comment on above: Take 1 tablet by pernell th three times daily. SITagliptin 25 mg oral tablet (20 sources) Dipeptidyl Peptidase 4 Inhibitor Start: 3 End: 5 take 1 tablet by mouth once daily SITagliptin (Januvia) 25 MG tablet Indications: Primary hypertension (CMS/HCC) , Mixed hyperlipidemia (CMS/HCC) , Type 2 diabetes mellitus with stage 3a chronic kidney disease, without long-term current use of insulin (HCC) (CMS/HCC) Take 1 tablet (25 mg) by mouth Daily 90 tablet 1 09/23/2023 08/03/2024 Discontinued (Therapy completed) Comment on above: Take 25 mg by mouth once daily. terbinafine 250 mg oral tablet (20 sources) Allylamine Antifungal Start: 3 End: terbinafine (LamISIL) 250 MG tablet 1 (one) time each day at the same time. 08/02/2022 09/17/2024 Discontinued (Patient refused) tiZANidine 4 mg oral tablet (20 sources) Central alpha-2 Adrenergic Agonist Start: 5 End: 5 take 1 tablet by mouth at bedtime tiZANidine (Zanaflex) 4 MG tablet Indications: Acute left-sided low back pain with left-sided sciatica Take 1 tablet (4 mg) by mouth at bedtime 30 tablet 3 11/16/2024 12/16/2024 Active Start: 08-06-2021 End: 03-24-2024 tiZANidine (Zanaflex) 4 MG t ablet 1 tablet as needed Orally at bedtime 07/24/2022 03/24/2024 Discontinued (Therapy completed) End: 09-09-2023 tiZANidine (Zanaflex) 4 mg c apsule Take 1 capsule (4 mg) by mouth once daily at bedtime. 1/2-1 tablet 0 09/09/2023 Discontinued (Therapy completed) Comment on above: Take 2-4 mg by mouth daily at bedtime. valACYclovir 1000 mg oral tablet (20 sources) Herpesvirus Nucleoside Analog DNA Polymerase Inhibitor, Herpes Simplex Virus Nucleoside Analog DNA Polymerase Inhibitor, Herpes Zoster Virus Nucleoside Analog DNA Polymerase Inhibitor Start: 3 valACYclovir (Valtrex) 1 g tablet Take 1,000 mg by mouth Daily as directed 04/04/2023 Active valsartan 320 mg oral tablet (20 sources) Angiotensin 2 Receptor Radha Start: 3 End: 5 take 1 tablet by mouth once daily valsartan (Diovan) 320 MG tablet Indications: Irritable bowel syndrome, unspecified type Take 1 tablet (320 mg) by mouth Daily 08/03/2024 01/30/2025 Active Start: 04-01-2022 take 160 mg by mouth once daily at bedtime Valsartan Active 160 MG PO Daily at bedtime May 18, 2022 11:00pm Comment on above: Take 320 mg by mouth once daily. Completed/Discontinued Medications Medication Drug Class(es) Dates Sig (Normalized) Sig (Original) azithromycin 500 mg oral tablet (6 sources) Macrolide Antimicrobial Start: 2 Azithromycin 500 MG Oral Tablet TAKE 1 TABLET 30-60 mins before your dental procedure Quantity: 1 Refills: 6 Ordered: 13-May-2022 Abdiaziz Momin Start : 13-May-2022 Active clindamycin 300 mg oral capsule (17 sources) Lincosamide Antibacterial Start: 2 End: 3 clindamycin (CLEOCIN HCL) 300 mg capsule Indications: S/P right unicompartmental knee replacement , Status post left knee replacement TWO TABS ONE HOUR PRIOR TO DENTAL PROCEDURE AND TWO TABS SIX HOURS AFTER THE DENTAL PROCEDURE 4 capsule 1 11/12/2021 03/02/2023 Discontinued Comment on above: TWO TABS ONE HOUR OH IOR TO DENTAL PROCEDURE AND TWO TABS SIX HOURS AFTER THE DENTAL PROCEDURE docusate sodium 100 mg oral capsule (16 sources) Start: 0 End: 4 take 1 capsule by mouth every twelve hours as needed docusate sodium (COLACE) 100 mg capsule Take 1 capsule by mouth twice daily as needed for Constipation. 60 capsule 02/05/2020 07/29/2023 Discontinued (Course of therapy completed) Comment on above: Take 1 capsule by mo [facility] twice daily as needed for Constipation. doxycycline monohydrate 100 mg oral capsule (8 sources) Tetracycline-clas s Drug Start: 4 End: 4 doxycycline (Monodox) 100 MG capsule Indications: Abscess , Skin and Soft Tissue Infection Take 1 capsule (100 mg) by mouth in the morning and 1 capsule (100 mg) before bedtime. Do all this for 10 days. Take with at least 8 ounces (large glass) of water, do not lie down for 30 minutes after. 20 capsule 05/23/2024 06/02/2024 furosemide 20 mg oral tablet (3 sources) Loop Diuretic Start: 2 Furosemide 20 MG Oral Tablet TAKE 1 TABLET DAILY NEEDED for increased shortness, increased leg swelling, and / or weight gain (3lbs in 24hrs or 5lbs in 48hrs) Quantity: 30 Refills: 1 Ordered: 26-Jul-2022 Abdiaziz Momin Start : 13-May-2022 Active hydroCHLOROthiazide 25 mg / lisinopril 20 mg oral tablet (9 sources) Thiazide Diuretic, Angiotensin Converting Enzyme Inhibitor End: 3 take 1 tablet by mouth once daily lisinopril-hydrochlo rothiazide 20-25 mg per tablet Take 1 tablet by mouth once daily. 08/05/2022 Discontinued Comment on above: Take 1 tablet by [facility] once daily. hydroCHLOROthiazide 25 mg / losartan potassium 100 mg oral tablet (20 sources) Thiazide Diuretic, Angiotensin 2 Receptor Radha Start: 8 End: 3 take 1 tablet by mouth once daily losartan-hydrochloro thiazide (HYZAAR) 100-25 mg per tablet TK 1 T PO QD 5 03/22/2018 08/05/2022 Discontinued Comment on above: TK 1 T PO QD mupirocin 0.02 mg/mg topical ointment (2 sources) RNA Synthetase Inhibitor Antibacterial Start: 3 mupirocin (BACTROBAN) 2 % ointment Indications: Preop examination Apply 0.5 inch with cotton swab (Q-tip) to each nostril in the morning and evening for 5 days prior to and including day of surgery. 22 g 0 08/05/2022 Active Comment on above: Apply 0.5 inch with cotton swab (Q-tip) to each nostril in the morning and evening for 5 days prior to and including day of surgery. Problems Active Problems Problem Classification Problem Date Documented Date Episodic/Chronic Anxiety disorders (1 source) Anxiety disorder, unspecified; Translations: [Anxiety disorder, unspecified] Onset: 03-20-2022 Chronic Bacterial infection; unspecified site (2 sources) Methicillin resistant Staphylococcus aureus infection; Translations: [Methicillin resistant Staphylococcus aureus infection, unspecified site] Episodic Cataract (20 sources) Nuclear sclerotic cataract; Translations: [Senile nuclear sclerosis] Onset: 08-04-2023 08-04-2023 Chronic Chronic kidney disease (2 sources) Chronic kidney disease stage 3A ; Translations: [Chronic kidney disease, stage 3a (HCC) ([facility]/HCC)] 08-03-2024 Chronic Chronic ulcer of skin (6 sources) Non-pressure chronic ulcer of other part of right foot with fat layer exposed; Translations: [Ulcer of other part of foot] 05-29-2024 Chronic Diabetes mellitus with complications (8 sources) Type 2 diabetes mellitus with ulcer; Translations: [Type 2 diabetes mellitus with foot ulcer] 08-03-2024 Chronic Diabetes mellitus without complication (20 sources) Type 2 diabetes mellitus without complication; Translations: [Type 2 diabetes mellitus without complications] Onset: 05-10-2017 12-19-2022 Chronic Disorders of lipid metabolism (20 sources) Hyperlipidemia; Translations: [Hyperlipidemia, unspecified] Onset: 05-12-2015 Resolved: 02-25-2023 02-04-2020 Chronic Esophageal disorders (1 source) Gastro-esophageal reflux disease without esophagitis; Translations: [Gastro-esophageal reflux disease without esophagitis] Onset: 03-20-2022 Chronic Essential hypertension (20 sources) Hypertensive disorder; Translations: [Essential (primary) hypertension] Onset: 05-12-2015 Resolved: 02-25-2023 02-04-2020 Chronic Glaucoma (20 sources) Primary open angle glaucoma; Translations: [Primary open angle glaucoma] Onset: 03-20-2022 08-04-2023 Chronic Immunizations and screening for infectious disease (3 sources) Contact with and (suspected) exposure to other viral communicable diseases; Translations: [Immunization due] Onset: 09-07-2021 Resolved: 09-07-2021 Episodic Neoplasms of unspecified nature or uncertain behavior (6 sources) Neoplasm of uncertain behavior of skin; Translations: [Neoplasm of uncertain behavior of skin] 05-15-2024 Episodic Nutritional deficiencies (20 sources) Vitamin D deficiency; Translations: [Vitamin D deficiency, unspecified] Onset: 06-21-2016 12-19-2022 Chronic Other and unspecified benign neoplasm (2 sources) Benign tumor of unknown origin; Translations: [Benign neoplasm, unspecified site] 05-15-2024 Episodic Other congenital anomalies (4 sources) Porokeratosis; Translations: [Other specified congenital malformations of skin] 05-15-2024 Chronic Other connective tissue disease (4 sources) Presence of right artificial knee joint; Translations: [S/P right unicompartmental knee replacement] Onset: 03-27-2021 Chronic Other connective tissue disease (1 source) Presence of left artificial knee joint; Translations: [Status post left knee replacement] Onset: 04-30-2020 Chronic Other connective tissue disease (4 sources) Pain in right foot; Translations: [Pain in right foot] 05-15-2024 Episodic Other diseases of veins and lymphatics (4 sources) Peripheral venous insufficiency; Translations: [Venous insufficiency (chronic) (peripheral)] 05-29-2024 Episodic Other hereditary and degenerative nervous system conditions (20 sources) Restless legs; Translations: [Restless legs syndrome] Onset: 06-21-2016 Resolved: 02-07-2023 08-05-2022 Chronic Other hereditary and degenerative nervous system conditions (5 sources) Restless legs syndrome; Translations: [RESTLESS LEGS SYNDROME] Onset: 03-20-2022 Chronic Other lower respiratory disease (1 source) Cough; Translations: [Cough, unspecified type] Episodic Other lower respiratory disease (2 sources) Dyspnea, unspecified; Translations: [Dyspnea, unspecified] Onset: 08-04-2023 Episodic Other nervous system disorders (20 sources) Bilateral carpal tunnel syndrome; Translations: [Carpal tunnel syndrome, bilateral upper limbs] Onset: 04-14-2023 04-14-2023 Chronic Other nervous system disorders (20 sources) Chronic pain; Translations: [Other chronic pain] Onset: 10-11-2018 Resolved: 02-07-2023 02-07-2023 Chronic Other nervous system disorders (1 source) Other acute postprocedural pain; Translations: [Post-op pain] Onset: 08-19-2022 Episodic Other nervous system disorders (1 source) Postoperative pain ; Translations: [Other acute postprocedural pain] Episodic Other nutritional; endocrine; and metabolic disorders (1 source) Body mass index (BMI) 40.0-44.9, adult; Translations: [Body mass index [BMI] 40.0-44.9, adult] Onset: 03-20-2022 Chronic Other nutritional; endocrine; and metabolic disorders (1 source) Morbid (severe) obesity due to excess calories; Translations: [Morbid (severe) obesity due to excess calories] Onset: 03-20-2022 Chronic Other nutritional; endocrine; and metabolic disorders (2 sources) Body mass index (BMI) 35.0-35.9, adult; Translations: [Body mass index (BMI) 35.0-35.9, adult] Onset: 09-09-2023 Chronic Other nutritional; endocrine; and metabolic disorders (20 sources) Morbid obesity; Translations: [Morbid (severe) obesity due to excess calories] Onset: 12-19-2022 12-19-2022 Chronic Other nutritional; endocrine; and metabolic disorders (2 sources) Hypomagnesemia; Translations: [Hypomagnesemia] 03-30-2024 Chronic Peripheral and visceral atherosclerosis (2 sources) Atherosclerosis of aorta; Translations: [Atherosclerosis of aorta] 03-30-2024 Chronic Residual codes; unclassified (1 source) Pain; Translations: [Pain, unspecified] 02-02-2021 Episodic Skin and subcutaneous tissue infections (8 sources) Abscess of right foot; Translations: [Cutaneous abscess of right foot] 05-22-2024 Episodic Spondylosis; intervertebral disc disorders; other back problems (20 sources) Disorder of right sciatic nerve; Translations: [Sciatica, right side] Onset: 11-14-2018 Resolved: 02-07-2023 02-07-2023 Episodic Thyroid disorders (20 sources) Hypothyroidism; Translations: [Hypothyroidism, unspecified] Onset: 03-18-2022 Resolved: 02-07-2023 08-05-2022 Chronic Unclassified (2 sources) AORTIC STENOSIS/ CPT- 44477 03-11-2022 Comment on above: AORTIC STENOSIS/ CPT - 87980 Unclassified (2 sources) Primary hypertension 03-19-2022 Unclassified (1 source) 1 MONTH F/U POST TAVR 03-10-2022 Comment on above: 1 MONTH F/U POST TAV R Unclassified (1 source) [facility] [place] OP CATH AORTIC STENOSIS MT 12-23-2021 Comment on above: [facility] OP CATH AORTIC STENOSIS MT Unclassified (1 source) Severe calcific aortic valve stenosis 03-18-2022 Unclassified (1 source) S/P TAVR (transcatheter aortic valve replacement) 03-18-2022 Unclassified (1 source) Nontoxic goiter, unspecified; Translations: [Nontoxic goiter, unspecified] Onset: 06-28-2022 Unclassified (1 source) R01.1 - Cardiac murmur, unspecified; Translations: [R01.1 - Cardiac murmur, unspecified] Onset: 12-17-2021 Viral infection (2 sources) Verruca plantaris; Translations: [Plantar wart] 05-15-2024 Episodic Past or Other Problems Problem Classification Problem Date Documented Da te Episodic/Chronic Complication of device; implant or graft (20 sources) Prosthetic joint mechanical failure; Translations: [Broken internal joint prosthesis, other site, sequela] Onset: 3 Resolved: Episodic Complications of surgical procedures or medical care (20 sources) Postprocedural hypothyroidism; Translations: [History of subtotal thyroidectomy] Onset: 3 Resolved: 3 02-07-2023 Chronic Deficiency and other anemia (20 sources) Anemia; Translations: [Anemia, unspecified] Onset: 3 Resolved: 3 08-20-2022 Episodic Diabetes mellitus without complication (20 sources) Impaired fasting glycemia; Translations: [Impaired fasting glucose] Onset: 5 Resolved: 3 02-07-2023 Episodic Heart valve disorders (20 sources) Aortic stenosis, non-rheumatic ; Translations: [Aortic valve disorders] Onset: 2 Resolved: 3 03-18-2022 Chronic Malaise and fatigue (20 sources) Asthenia; Translations: [Weakness] Onset: 3 04-14-2023 Episodic Menopausal disorders (20 sources) Postmenopausal bleeding; Translations: [Postmenopausal bleeding] Onset: 7 Resolved: 3 02-07-2023 Chronic Osteoarthritis (20 sources) Osteoarthritis of knee; Translations: [Unilateral primary osteoarthritis, unspecified knee] Onset: 3 Resolved: 3 06-08-2013 Chronic Other aftercare (20 sources) Patient encounter status; Translations: [Aftercare following joint replacement surgery] Onset: 3 Resolved: 3 11-29-2022 Chronic Other aftercare (1 source) MCFP (current) use of non-steroidal anti-inflammatories (NSAID); Translations: [MCFP (current) use of non-steroidal non-inflam (NSAID)] Onset: 2 Episodic Other connective tissue disease (20 sources) History of total knee arthroplasty; Translations: [Presence of left artificial knee joint] Onset: 4 Resolved: 3 04-30-2020 Chronic Other connective tissue disease (20 sources) History of prosthetic unicompartmental arthroplasty of right knee; Translations: [Presence of right artificial knee joint] Onset: 1 Resolved: 3 03-27-2021 Chronic Other connective tissue disease (20 sources) History of revision of right total knee arthroplasty; Translations: [Presence of right artificial knee joint] Onset: 1 Resolved: 3 Chronic Other connective tissue disease (20 sources) Artificial knee joint present; Translations: [Presence of unspecified artificial knee joint] Onset: 3 Resolved: 3 02-07-2023 Chronic Other connective tissue disease (20 sources) Bursitis of shoulder; Translations: [Bursitis of unspecified shoulder] Onset: 4 Resolved: 3 09-19-2013 Episodic Other gastrointestinal disorders (20 sources) Irritable bowel syndrome; Translations: [Irritable bowel syndrome without diarrhea] Onset: 3 Resolved: 3 02-04-2020 Chronic Other gastrointestinal disorders (1 source) Constipation, unspecified; Translations: [Constipation, unspecified] Onset: 2 Episodic Other lower respiratory disease (20 sources) Dyspnea; Translations: [Other respiratory abnormalities] Onset: 4 09-09-2023 Episodic Other nervous system disorders (20 sources) Difficulty walking; Translations: [Difficulty in walking, not elsewhere classified] Onset: 0 Resolved: 3 02-07-2023 Chronic Other nervous system disorders (20 sources) Numbness; Translations: [Anesthesia of skin] Onset: 3 04-14-2023 Episodic Other non-traumatic joint disorders (20 sources) Pain in unspecified knee; Translations: [Pain in joint, lower leg] Onset: 3 Resolved: 3 07-05-2013 Episodic Other non-traumatic joint disorders (16 sources) Effusion of joint of left knee; Translations: [Effusion, left knee] Onset: 0 Resolved: 3 04-30-2020 Episodic Other non-traumatic joint disorders (20 sources) Effusion of right knee joint; Translations: [Effusion, right knee] Onset: 1 Resolved: 3 03-27-2021 Episodic Other non-traumatic joint disorders (20 sources) Bilateral stiffness of knee joints; Translations: [Stiffness of right knee, not elsewhere classified] Onset: 4 07-29-2023 Episodic Other nutritional; endocrine; and metabolic disorders (20 sources) Obesity; Translations: [Obesity, unspecified] Onset: 8 Resolved: 3 01-08-2020 Chronic Other nutritional; endocrine; and metabolic disorders (20 sources) Obese class II; Translations: [Obesity, unspecified] Onset: 5 Resolved: 3 02-03-2020 Chronic Other nutritional; endocrine; and metabolic disorders (20 sources) Body mass index 30+ - obesity; Translations: [Body mass index (BMI) 35.0-35.9, adult] Onset: 3 Resolved: 3 09-09-2023 Chronic Other nutritional; endocrine; and metabolic disorders (20 sources) Obese class I; Translations: [Class 1 obesity] Onset: 9 Resolved: 3 02-07-2023 Chronic Residual codes; unclassified (20 sources) Never smoked tobacco; Translations: [Other specified health status] Onset: 4 03-24-2024 Episodic Unclassified (17 sources) Never smoked tobacco; Translations: [Never a smoker] Unclassified (1 source) Cough, unspecified type R05.9 Onset: 2 Resolved: 2 Urinary tract infections (4 sources) Acute cystitis; Translations: [Acute cystitis without hematuria] Onset: 3 Resolved: 3 08-19-2022 Episodic Viral infection (1 source) COVID-19 Onset: 2 Resolved: 2 Results Test Name Value Interpretation Reference Range Facility HbA1c (Bld) [Mass fraction]O rdered By: Flor Velasco on 08-03-2024 Interpretation and review of laboratory results Normal [facility] - Hematology and Cell countsOrdered By: Flor Velasco on 08-03-2024 HbA1c (Bld) [Mass fraction] 6.1 % [facility] HbA1c (Bld) [Mass fraction]o n 03-30-2024 Interpretation and review of laboratory results Normal [facility] - Chemistry and C hemistry - challengeon 03-30-2024 Albumin DL <= 20 mg/L (U) [Mass/Vol] 300 mg/dL [facility] Comment on above: moderately increased Laboratory - Hematology and Cell countson 03-30-2024 HbA1c (Bld) [Mass fraction] 6.2 % [facility] No Panel Informationon 03-30 Interpretation and review of laboratory results Abnormal [facility] ALL CBC WITH AUTO DIFFon BASOPHILS ABSOLUTE AUTO 0.0 [facility] Basophils/100 WBC (Bld) 0.3 % 0.2 - 2.0 % [facility] Eosinophils/100 WBC (Bld) 3.5 % 0.9 - 7.0 % [facility] Erythrocyte distribution width (RBC) [Ratio] 12.9 % 11.0 - 15.0 % [facility] Hematocrit (Bld) [Volume fraction] 32.8 % Low 36.0 - 48.0 % [facility] Hemoglobin (Bld) [Mass/Vol] 10.8 g/dL Low 12.0 - 16.0 g/dL [facility] IMMATURE GRANULOCYTES ABS AUTO 0.02 [facility] Immature granulocytes/100 WBC (Bld) 0.3 % 0.0 - 0.5 % [facility] Interpretation and review of laboratory results Abnormal [facility] LYMPHOCYTES ABSOLUTE AUTO 1.7 [facility] Lymphocytes/100 WBC (Bld) 28.7 % 20.5 - 60.0 % [facility] MCH (RBC) [Entitic mass] 29.9 pg 26.7 - 34.0 pg [facility] MCHC (RBC) [Mass/Vol] 32.9 g/dL 29.9 - 35.2 g/dL [facility] MCV (RBC) [Entitic vol] 90.9 fL 81.0 - 99.0 fL [facility] MONOCYTES ABSOLUTE AUTO 0.5 [facility] Monocytes/100 WBC (Bld) 7.4 % 1.7 - 12.0 % [facility] NEUTROPHILS ABSOLUTE AUTO 3.6 [facility] Neutrophils/100 WBC (Bld) 59.8 % 43.0 - 75.0 % [facility] Platelet mean volume (Bld) [Entitic vol] 9.5 fL 9.5 - 13.5 fL [facility] TBH EO # 0.2 [facility] TBH PLT 251 [facility] TB RBC 3.61 Low [facility] TB WBC 6.1 [facility] CNOVon 09-02-2023 [facility] Office Visit (LOORRM ) -------- VIRGILIO JOHNSON ([id number]) 1960 F Date Time Provider Department 09/02/23 10:00 AM LUCAS LEVY During your visit today, we recorded the following information about you: Lucas Levy PA-C 09/02/2023 10:42 AM Signed This document has been created with the use of voice recognition technology. It may contain inaccuracies such as misspellings, inaccurate syntax or word sense that escaped review. Chief complaint: Recheck of right knee Revision right TKR 08/29/2022 (1 year) Left TKR 02/03/2022 (1-1/2 years) HISTORY: Virgilio is a 63 year old female. Patient comes in today for follow up of her right knee postoperatively. She reports she is doing great. She states pain is well controlled with no medication other than Voltaren. Made good progress with physical therapy. 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 Get some soreness in her back but notes with stiffness in the knee is gone and is not having any knee pain complaints. She has also lost 25 pounds since April and continues to be motivated to increase weight loss. Pain level 0/10. No other musculoskeletal complaints PAST MEDICAL HISTORY Diagnosis Date HLD (hyperlipidemia) HTN (hypertension) IBS (irritable bowel syndrome) OA (osteoarthritis) of knee Obesity RLS (restless legs syndrome) PAST SURGICAL HISTORY Procedure Laterality Date ARTHROSCOPY KNEE DIAGNOSTIC W/WO SYNOVIAL BX SPX right knee Arthroscopy, knee ARTHRP KNE CONDYLEANDPLATU MEDIALANDLAT COMPARTMENTS Right 2012 partial UCKR COLONOSCOPY SCREENING EYE SURGERY HX PAST SURGICAL HISTORY OF 03/18/2022 History of Aortic valve replacement PAST SURGICAL HISTORY OF lasik surgery PAST SURGICAL HISTORY OF Laser gonioplasty PAST SURGICAL HISTORY OF Left 05/2022 thyroidectomy Medications reviewed. ALLERGIES Allergen Reactions Latex Intolerance States she cannot have anything with elastic or latex, She gets a severe rash and areas of breakdown and pus. Penicillins Rash Had rash once years ago and does not remember if she has had PCN since then. Social History Tobacco Use Smoking status: Never Smokeless tobacco: Never Vaping Use Vaping Use: Never used Substance Use Topics Alcohol use: No Drug use: Never EXAMINATION: GENERAL: Appears healthy, well-nourished, no deformities. ORIENTATION: Alert and oriented to person place and time HABITUS: Normal GAIT: Ambulating with a normal brisk gait On physical exam of the right knee today, Appearance: No warmth or redness, wound is well-healed with no sign of infection. Calf is soft and nontender. Negative Homans. Tenderness: None Swelling: No swelling of the knee itself, no swelling distally Range of motion: 0-120 degrees easily, with just tightness at extremes Excellent quadriceps conditioning bilaterally. RADIOGRAPHS: None needed today IMPRESSION: Encounter Diagnosis ICD-10-CM 1. Aftercare following right knee joint replacement surgery Z47.1 Z96.651 2. 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 Status post left knee replacement Z96.652 She is doing quite well and is extremely pleased with her progress. Her weight loss continues to improve and she is motivated to continue this. We discussed limitations. We discussed the importance of keeping her strength up and her weight down for longevity of the knees. Follow-up in 1 year for annual recheck. Sooner if problems arise. Lucas Levy PA-C September 02, 2023 10:36 AM Referring Provider: SELF [[id number]] Allergies As of Date: 09/02/2023 Noted Allergy Reaction LATEX 06/18/2013 5 - Intolerance Comments: States she cannot have anything with elastic or latex, She gets a severe rash and areas of breakdown and pus. PENICILLINS 06/18/2013 2 - Rash Comments: Had rash once years ago and does not remember if she has had PCN since then. Date Reviewed: 09/02/2023 Reviewed by: Lucas Levy PA-C - Fully Assessed Reason for Visit: Established Patient [175] Follow Up [171] Knee Replacement [363] Knee Replacement [363] Primary Visit Diagnosis:Aftercare following right knee joint replacement surgery [Z47.1, Z96.651] Other Visit Diagnoses:Status post revision of total knee, 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] Status post left knee replacement [Z96.652] Prescriptions as of 09/02/2023 - acetaZOLAMIDE SR (DIAMOX SEQUELS) 500 mg capsule Take 500 mg by mouth two times a day. - brimonidine (ALPHAGAN) 0.2 % ophthalmic solution Use 1 Drop in both eyes two times a day. - chlorthalidone (HYGROTON) 25 mg tablet Take 1 tablet by mouth every afternoon. - latanoprost (XALATAN) 0.005 % ophthalmic solution Use 1 Drop in both eyes once daily. - prednisoLONE acetate (PRED FORTE) 1 % ophthalmic suspension Use 1 Drop in both eyes every Mon (more content not included)... Normal [facility] CNOVon 07-29-2023 CNOV Office Visit (LOORRM ) -------- VIRGILIO JOHNSON ([id number]) 1960 F Date Time Provider Department 07/29/23 10:00 AM BEBO LUCAS JENNYFERKathryn During your visit today, we recorded the following information about you: Weight 106.1 kg Lucas Levy PA-C 07/29/2023 12:44 PM Signed This document has been created with the use of voice recognition technology. It may contain inaccuracies such as misspellings, inaccurate syntax or word sense that escaped review. Chief complaint: Recheck of stiffness in right and left knees Revision right TKR 08/29/2022 (11 months) Left TKR 02/03/2022 (1-2 years) HISTORY: Virgilio is a 63 year old female. Patient comes in today for follow up of her right and left knees with complaints of significant stiffness and swelling at the end of her day. She reports that any significant activities seem to irritate it if she is on her feet a long time such as work. She also notes it is worse in the cold weather. She states pain is well controlled with meloxicam but it does not seem to be helping as much as it used to and will occasionally supplement with ibuprofen. Made good progress with physical therapy. She has been working on weight loss and is down 20 pounds in the last few months. 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 She notes that her current job is a little bit easier than what she has had in the past as she gets a few more breaks throughout her workday where she can sit down for half hour at a time. This has helped some. Denies any real pain complaints, just significant stiffness. Pain level 0/10. No other musculoskeletal complaints PAST MEDICAL HISTORY Diagnosis Date HLD (hyperlipidemia) HTN (hypertension) IBS (irritable bowel syndrome) OA (osteoarthritis) of knee Obesity RLS (restless legs syndrome) PAST SURGICAL HISTORY Procedure Laterality Date ARTHROSCOPY KNEE DIAGNOSTIC W/WO SYNOVIAL BX SPX right knee Arthroscopy, knee ARTHRP KNE CONDYLEANDPLATU MEDIALANDLAT COMPARTMENTS Right 2012 partial UCKR COLONOSCOPY SCREENING EYE SURGERY HX PAST SURGICAL HISTORY OF 03/18/2022 History of Aortic valve replacement PAST SURGICAL HISTORY OF lasik surgery PAST SURGICAL HISTORY OF Laser gonioplasty PAST SURGICAL HISTORY OF Left 05/2022 thyroidectomy Medications reviewed. ALLERGIES Allergen Reactions Latex Intolerance States she cannot have anything with elastic or latex, She gets a severe rash and areas of breakdown and pus. Penicillins Rash Had rash once years ago and does not remember if she has had PCN since then. Social History Tobacco Use Smoking status: Never Smokeless tobacco: Never Vaping Use Vaping Use: Never used Substance Use Topics Alcohol use: No Drug use: Never EXAMINATION: GENERAL: Appears healthy, well-nourished, no deformities. ORIENTATION: Alert and oriented to person place and time HABITUS: Normal GAIT: Ambulating with a relatively normal gait today On physical exam of the knees today, Appearance: No warmth or redness, wound is well-healed with no sign of infection. Calf is soft and nontender. Negative Homans. Tenderness: No significant tenderness about the knee Swelling: Minimal swelling of the knee itself today, no swelling distally Range of motion: 0 to 130 degrees on the left and 0- 120 degrees easily on the right, with just tightness at extremes Quadriceps conditioning is improving nicely. RADIOGRAPHS: Personally reviewed by myself and with the patient today demonstrating right and left TKR components in satisfactory position with good interfaces noted. No evidence of wear or loosening. Good general alignment. Level patella tracking on skyline view. No other osseous abnormalities. IMPRESSION: Encounter Diagnosis ICD-10-CM 1. 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 Status post left knee replacement Z96.652 XR KNEE POST OP 3V AP/LAT/MERCHANT BILATERAL PARKING FOR HANDICAPPED 3. S/P right unicompartmental knee replacement Z96.651 4. Knee joint stiffness, bilateral M25.661 PARKING FOR HANDICAPPED M25.662 We discussed that the stiffness is likely from a bit of swelling that she gets as the day goes on which is not surprising giving her physical job. For now she is tolerating it but might improve her symptoms with the different anti-inflammatory since she has been taking the meloxicam for quite some time. Will switch to Voltaren 50 mg twice a day which she should take with food as well and will discontinue the meloxicam. Will see how she does with this. She cannot tolerate any bracing on the knee without significant skin irritation. Follow-up in 1 month for annual recheck of her right knee. Discussed that I see no problems with the prosthesis himself and her strength is good. The intermittent inflam (more content not included)... Normal [facility] XR KNEE 3V AP/LAT/XAVIER BILon 07-29-2023 XR KNEE 3V AP/LAT/XAVIER CAMPOS * * *Final Report* * * DATE OF EXAM: Jul 29 2023 10:37AM LZX 5635 - XR KNEE 3V AP/LAT/XAVIER CAMPOS / PROCEDURE REASON: multiple diagnoses * * * * Physician Interpretation * * * * EXAM: XR KNEE 3V AP/LAT/XAVIER CAMPOS HISTORY: Status post revision of total knee, right Status post left knee replacement . BILATERAL KNEE PAIN, POST OP STATUS OF BILATERAL KNEE REPLACEMENTS TECHNIQUE: XR KNEE 3V AP/LAT/XAVIER CAMPOS Laterality: NOT APPLICABLE Number of different views (projections): 3 COMPARISON: 02/28/2023. RESULT: BONES: Normal bone density. Bilateral total knee arthroplasties. Right knee arthroplasty is constrained. No perihardware lucency or fracture. JOINT SPACES: Maintained. No dislocation. No erosion. Small bilateral suprapatellar joint effusions. SOFT TISSUES: Unremarkable. IMPRESSION: Stable bilateral knee arthroplasties. Agency Manager: [employer] Transcribe Date/Time: Jul 29 2023 3:07P Dictated by : JAIR JOSHUA MD This examination was interpreted and the report reviewed and electronically signed by: JAIR JOSHUA MD on Jul 29 2023 3:13PM EST [id number] Normal [facility] XR Knee - bilateral 3 Viewso n 07-29-2023 IMPRESSION: Stable bilateral knee arthroplasties. Agency Manager: [employer] Transcribe Date/Time: Jul 29 2023 3:07P Dictated by : JAIR JOSHUA MD This examination was interpreted and the report reviewed and electronically signed by: JAIR JOSHUA MD on Jul 29 2023 3:13PM EST DIVISION OF RADIOLOGY * * *Final Report* * * DATE OF EXAM: Jul 29 2023 10:37AM LZX 5635 - XR KNEE 3V AP/LAT/XAVIER CAMPOS / PROCEDURE REASON: multiple diagnoses * * * * Physician Interpretation * * * * EXAM: XR KNEE 3V AP/LAT/XAVIER CAMPOS HISTORY: Status post revision of total knee, right Status post left knee replacement . BILATERAL KNEE PAIN, POST OP STATUS OF BILATERAL KNEE REPLACEMENTS TECHNIQUE: XR KNEE 3V AP/LAT/XAVIER CAMPOS Laterality: NOT APPLICABLE Number of different views (projections): 3 COMPARISON: 02/28/2023. RESULT: BONES: Normal bone density. Bilateral total knee arthroplasties. Right knee arthroplasty is constrained. No perihardware lucency or fracture. JOINT SPACES: Maintained. No dislocation. No erosion. Small bilateral suprapatellar joint effusions. SOFT TISSUES: Unremarkable. DIVISION OF RADIOLOGY Provider, [facility] - 07/29/2023 * * *Final Report* * * DATE OF EXAM: Jul 29 2023 10:37AM LZX 5635 - XR KNEE 3V AP/LAT/XAVIER CAMPOS / PROCEDURE REASON: multiple diagnoses * * * * Physician Interpretation * * * * EXAM: XR KNEE 3V AP/LAT/XAVIER CAMPOS HISTORY: Status post revision of total knee, right Status post left knee replacement . BILATERAL KNEE PAIN, POST OP STATUS OF BILATERAL KNEE REPLACEMENTS TECHNIQUE: XR KNEE 3V AP/LAT/XAVIER CAMPOS Laterality: NOT APPLICABLE Number of different views (projections): 3 COMPARISON: 02/28/2023. RESULT: BONES: Normal bone density. Bilateral total knee arthroplasties. Right knee arthroplasty is constrained. No perihardware lucency or fracture. JOINT SPACES: Maintained. No dislocation. No erosion. Small bilateral suprapatellar joint effusions. SOFT TISSUES: Unremarkable. IMPRESSION IMPRESSION: Stable bilateral knee arthroplasties. Agency Manager: [facility] Transcribe Date/Time: Jul 29 2023 3:07P Dictated by : JAIR JOSHUA MD This examination was interpreted and the report reviewed and electronically signed by: JAIR JOSHUA MD on Jul 29 2023 3:13PM [facility] Radiology Study observation (narrative) [facility] XR Knee - bilateral 3 ViewsO rdered By: [facility] Provider on 07-29-2023 [facility] Office Visit (Cardiology)on 03-17-2023 Follow-up visit Diagnoses/Problems Assessed S/P TAVR (transcatheter aortic valve replacement) (V43.3) (Z95.2) Essential hypertension, benign (401.1) (I10) Orders S/P TAVR (transcatheter aortic valve replacement) Echocardiogram; Status:Hold For - Scheduling; Requested for:[id number]; Chief Complaint VIRGILIO JOHNSON is being seen for a cardiovascular evaluation . one year s/p TAVR follow-up. A telephone visit (audio only) between the patient (at the originating site) and the provider (at the distant site) was utilized to provide this telehealth service. Verbal consent was requested and obtained from VIRGILIO JOHNSON on this date, 03/17/2023 09:00 AM , for a telehealth visit. History of Present IllnessThe patient is NYHA functional Class I. Symptoms: denies lower extremity edema, stable dyspnea on exertion, stable fatigue, stable exercise intolerance, denies orthopnea and denies paroxysmal nocturnal dyspnea. Associated symptoms include no chest pain, no syncope, no palpitations, no recent weight gain and no recent weight loss. Medications: the patient is adherent with her medication regimen. She denies medication side effects. Disease Management: the patient is doing well with her heart failure goals. Due For: an echocardiogram. Active Problems Problems Cataract, nuclear sclerotic, both eyes (366.16) (H25.13) Chronic pain of both knees (719.46,338.29) (M25.561,M25.562,G89.29) Class 2 obesity with body mass index (BMI) of 38.0 to 38.9 in adult (278.00,V85.38) (E66.9,Z68.38) Dyspnea (786.09) (R06.00) Essential hypertension, benign (401.1) (I10) Hyperlipidemia (272.4) (E78.5) Never a smoker Preop cardiovascular exam (V72.81) (Z01.810) Primary open angle glaucoma (POAG) of both eyes, mild stage (365.11,365.71) (H40.1131) S/P TAVR (transcatheter aortic valve replacement) (V43.3) (Z95.2) Surgical History Problems History of Aortic valve replacement History of Complete colonoscopy Managed By: Abraham Sparrow MD (Gastroenterology) History of Corneal lasik History of Eye surgery History of Knee replacement History of Knee replacement partial History of Laser gonioplasty Past Medical History Problems History of Glaucoma of both eyes (365.9) (H40.9) History of Nonrheumatic aortic valve stenosis (424.1) (I35.0) Resolved Date: 13 May 2022 Current Meds Medication NameInstruction amLODIPine Besylate 10 MG Oral TabletTAKE 1 TABLET DAILY. Aspirin Low Dose 81 MG Oral Tablet Delayed ReleaseTake 1 tablet twice daily Atorvastatin Calcium 10 MG Oral TabletTAKE 1 TABLET Bedtime Azithromycin 500 MG Oral TabletTAKE 1 TABLET 30-60 mins before your dental procedure Chlorthalidone 25 MG Oral TabletTAKE 1 TABLET DAILY. Dicyclomine HCl - 20 MG Oral TabletTAKE 1 TABLET TWICE DAILY. FeroSul 325 (65 Fe) MG Oral TabletTAKE 1 TABLET DAILY DIRECTED. Gabapentin 100 MG Oral CapsuleTAKE 2 CAPSULE Twice daily Levothyroxine Sodium 100 MCG Oral TabletTAKE 1 TABLET BY MOUTH EVERY DAY IN THE MORNING ON AN EMPTY STOMACH Meloxicam 15 MG Oral TabletTAKE 1 TABLET DAILY. rOPINIRole HCl - 0.25 MG Oral Tablet1 in am, 1 lunch, 2 pm, 2 bedtime tiZANidine HCl - 4 MG Oral TabletTAKE 1/2 TO 1 TABLET BY MOUTH AT BEDTIME Tylenol Extra Strength 500 MG Oral TabletTAKE 1 TABLET EVERY 4 TO 6 HOURS NEEDED. Valsartan 320 MG Oral TabletTAKE 1 TABLET DAILY. Allergies Medication Brimonidine Tartrate POWD Recorded By: Heather Larson; 01/10/2019 9:23:16 AM Cosopt Recorded By: Heather Larson; 01/10/2019 9:23:16 AM levalbuterol Recorded By: Heather Larson; 01/10/2019 9:23:16 AM Penicillins Recorded By: Heather Larson; 01/10/2019 9:23:16 AM timolol Recorded By: Heather Larson; 01/10/2019 9:23:16 AM Trusopt Recorded By: Heather Larson; 01/10/2019 9:23:16 AM NonMedication Adhesive Tape Recorded By: Vanessa Da Silva; 10/06/2022 3:59:12 PM Family History Mother Family history of congestive heart failure (V17.49) (Z82.49) Family history of glaucoma (V19.11) (Z83.511) Father Family history of cerebrovascular accident (CVA) (V17.1) (Z82.3) Family history of glaucoma (V19.11) (Z83.511) Sister Family history of heart murmur (V17.49) (Z82.49) Social History Problems Caffeine use (V49.89) (Z78.9) 2-3 cups coffee daily Never a smoker No alcohol use No illicit drug use Review of Systems Constitutional: not feeling tired. Eyes: eyesight problems. ENT: no hearing loss and no nosebleeds. Cardiovascular: no intermittent leg claudication and as noted in HPI. Respiratory: shortness of breath during exertion, but no chronic cough and no shortness of breath. Gastrointestinal: no change in bowel habits and no blood in stools. Genitourinary: no urinary frequency. Skin: no skin rashes. Neurological: no seizures and no frequent falls. Psychiatric: no depression and not suicidal. All other systems have been reviewed and are negative for complaint. Scores and Scales [place] Cardiomyopathy Ques (more content not included)... Normal [email or web address] 02[facility] CNOV Office Visit (LOORRM ) -------- VIRGILIO JOHNSON ([id number]) 1960 F Date Time Provider Department 02/28/23 10:30 AM VIOLET COMBS During your visit today, we recorded the following information about you: Violet Combs MD 03/06/2023 3:04 PM Signed see dictated note Violet Combs II, MD Referring Provider: SELF [200] Allergies As of Date: 02/28/2023 Noted Allergy Reaction LATEX 06/18/2013 5 - Intolerance Comments: States she cannot have anything with elastic or latex, She gets a severe rash and areas of breakdown and pus. PENICILLINS 06/18/2013 2 - Rash Comments: Had rash once years ago and does not remember if she has had PCN since then. Date Reviewed: 02/28/2023 Reviewed by: Regina Reyes MA - Fully Assessed Reason for Visit: Follow Up [171] Established Patient [175] Knee Replacement [363] Primary Visit Diagnosis:Status post revision of total knee, 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] Other Visit Diagnosis:Status post left knee replacement [Z96.652] Order(s):XR KNEE POST OP 3V AP/LAT/MERCHANT BILATERAL [[id number]] Order #: [id number] FUTURE Prescriptions as of 03/06/2023 - clindamycin (CLEOCIN HCL) 300 mg capsule TWO TABS ONE HOUR PRIOR TO DENTAL PROCEDURE AND TWO TABS SIX HOURS AFTER THE DENTAL PROCEDURE - meloxicam (MOBIC) 15 mg tablet TAKE 1 TABLET BY MOUTH EVERY DAY WITH FOOD - oxyCODONE IR (ROXICODONE) 5 mg immediate release tablet take 1 every 4-6 hours as needed for pain - aspirin, enteric coated (ASPIRIN, ENTERIC COATED) 81 mg EC tablet Take 1 tablet by mouth twice daily for 4 weeks - levothyroxine (SYNTHROID) 100 mcg tablet TAKE 1 TABLET BY MOUTH EVERY DAY IN THE MORNING ON AN EMPTY STOMACH - terbinafine HCl (LAMISIL) 250 mg tablet - tiZANidine (ZANAFLEX) 4 mg tablet Take 2-4 mg by mouth daily at bedtime. - valsartan (DIOVAN) 320 mg tablet Take 320 mg by mouth once daily. - amLODIPine (NORVASC) 5 mg tablet Take 5 mg by mouth once daily. - acetaminophen (TYLENOL) 500 mg tablet Take 2 tablets by mouth every 8 hours. - docusate sodium (COLACE) 100 mg capsule Take 1 capsule by mouth twice daily as needed for Constipation. - rOPINIRole (REQUIP) 0.25 mg tablet Take 1 tablet by mouth three times daily. - gabapentin (NEURONTIN) 100 mg capsule Take 1 capsule by mouth twice daily for 30 days. - atorvastatin (LIPITOR) 10 mg tablet TK 1 T PO QD - dicyclomine 20 mg tablet Take 20 mg by mouth twice daily. Problem List As Of Date 02/28/2023 Noted Resolved OA (osteoarthritis) of knee [M17.9] 06/08/2013 Knee pain [M25.569] 07/05/2013 08/19/2022 Acute shoulder bursitis [M75.50] 09/19/2013 Status post left knee replacement [Z96.652] 09/19/2013 S/P TKR o/90 days [Z96.659] 07/03/2014 HTN (hypertension) [I10] IBS (irritable bowel syndrome) [K58.9] HLD (hyperlipidemia) [E78.5] Obesity [E66.9] Obesity, Class II, BMI 35-39.9 [E66.9] 02/03/2020 Primary osteoarthritis of left knee [M17.12] 02/04/2020 Effusion of left knee [M25.462] 04/30/2020 08/19/2022 Patellofemoral arthritis of right knee [M17.11] 03/27/2021 S/P revision of total knee, 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] 03/27/2021 Knee effusion, right [M25.461] 03/27/2021 Aortic valve stenosis [I35.0] 08/05/2022 RLS (restless legs syndrome) [G25.81] 08/05/2022 Hypothyroidism [E03.9] 08/05/2022 Acute cystitis without hematuria [N30.00] 08/09/2022 08/19/2022 Failed total knee, 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] 08/19/2022 Failed total knee arthroplasty, initial encount*08/19/2022 Postoperative anemia [D64.9] 08/20/2022 Status post revision of total knee, right [Z96.*11/11/2022 Aftercare following right knee joint replacemen*11/29/2022 Encounter Status:Closed by VIOLET COMBS II on 03/06/23 [facility] XR KNEE 3V AP/LAT/XAVIER BILon 02-28-2023 XR KNEE 3V AP/LAT/XAVIER CAMPOS * * *Final Report* * * DATE OF EXAM: Feb 28 2023 10:39AM LZX 5635 - XR KNEE 3V AP/LAT/XAVIER CAMPOS / PROCEDURE REASON: multiple diagnoses * * * * Physician Interpretation * * * * HISTORY (as given from clinical provider): Status post revision of total knee, right Status post left knee replacement . Additional history provided by the performing technologist (if any): Post op TECHNIQUE: XR KNEE 3V AP/LAT/XAVIER CAMPOS COMPARISON: 09/07/2022 RESULT: Status post bilateral total knee arthroplasty. Normal postoperative appearance bilaterally. No other significant abnormality. Agency Manager: [facility] Transcribe Date/Time: Feb 28 2023 12:02P Dictated by : RACHEAL BENITEZ MD This examination was interpreted and the report reviewed and electronically signed by: RACHEAL BENITEZ MD on Feb 28 2023 12:02PM EST [id number] Normal [facility] XR KNEE POST OP 3V AP/LAT/ME RCHANT BILATERALon 02-28-2023 [facility] XR Knee - bilateral 3 Viewso n 02-28-2023 * * *Final Report* * * DATE OF EXAM: Feb 28 2023 10:39AM LZX 5635 - XR KNEE 3V AP/LAT/XAVIER CAPMOS / PROCEDURE REASON: multiple diagnoses * * * * Physician Interpretation * * * * HISTORY (as given from clinical provider): Status post revision of total knee, right Status post left knee replacement . Additional history provided by the performing technologist (if any): Post op TECHNIQUE: XR KNEE 3V AP/LAT/XAVIER CAMPOS COMPARISON: 09/07/2022 RESULT: Status post bilateral total knee arthroplasty. Normal postoperative appearance bilaterally. No other significant abnormality. Agency Manager: [facility] Transcribe Date/Time: Feb 28 2023 12:02P Dictated by : RACHEAL BENITEZ MD This examination was interpreted and the report reviewed and electronically signed by: RACHEAL BENITEZ MD on Feb 28 2023 12:02PM [facility] DIVISION OF RADIOLOGY Provider, [facility] - 02/28/2023 * * *Final Report* * * DATE OF EXAM: Feb 28 2023 10:39AM LZX 5635 - XR KNEE 3V AP/LAT/XAVIER CAMPOS / PROCEDURE REASON: multiple diagnoses * * * * Physician Interpretation * * * * HISTORY (as given from clinical provider): Status post revision of total knee, right Status post left knee replacement . Additional history provided by the performing technologist (if any): Post op TECHNIQUE: XR KNEE 3V AP/LAT/XAVIER CAMPOS COMPARISON: 09/07/2022 RESULT: Status post bilateral total knee arthroplasty. Normal postoperative appearance bilaterally. No other significant abnormality. Agency Manager: [facility] Transcribe Date/Time: Feb 28 2023 12:02P Dictated by : RACHEAL BENITEZ MD This examination was interpreted and the report reviewed and electronically signed by: RACHEAL BENITEZ MD on Feb 28 2023 12:02PM EST [facility] Radiology Study observation (narrative) [facility] XR Knee - bilateral 3 ViewsO rdered By: [facility] Provider on 02-28-2023 [facility] Office Visit (Cardiology)on 11-30-2022 Follow-up visit Diagnoses/Problems Assessed Essential hypertension, benign (401.1) (I10) Orders Essential hypertension, benign Start: Chlorthalidone 25 MG Oral Tablet; TAKE 1 TABLET DAILY Basic Metabolic Panel; Status:Active - Retrospective Authorization; Requested for:11Jan2023; Patient Instructions Please bring all medicines, vitamins, and herbal supplements with you when you come to the office. Prescriptions will not be filled unless you are compliant with your follow up appointments or have a follow up appointment scheduled as per instruction of your physician. Refills should be requested at the time of your visit. Blood Pressure Follow Up In 6 weeks Keep follow-up appt as scheduled Chief Complaint VIRGILIO JOHNSON is being seen for hypertension. History of Present Illness Patient is here for follow-up continue management for hypertension. Recently several adjustment were made for her medication including increasing amlodipine and valsartan. Despite this the blood pressure remains elevated. Patient is asymptomatic. Assessment 1. Uncontrolled hypertension Plan We will start chlorthalidone 25 mg once daily and do a blood pressure check and a BMP in 6 weeks Current Meds Medication NameInstruction amLODIPine Besylate 10 MG Oral TabletTAKE 1 TABLET DAILY. Aspirin Low Dose 81 MG Oral Tablet Delayed ReleaseTake 1 tablet twice daily Atorvastatin Calcium 10 MG Oral TabletTAKE 1 TABLET Bedtime Azithromycin 500 MG Oral TabletTAKE 1 TABLET 30-60 mins before your dental procedure Dicyclomine HCl - 20 MG Oral TabletTAKE 1 TABLET TWICE DAILY. FeroSul 325 (65 Fe) MG Oral TabletTAKE 1 TABLET DAILY DIRECTED. Gabapentin 100 MG Oral CapsuleTAKE 2 CAPSULE Twice daily Levothyroxine Sodium 100 MCG Oral TabletTAKE 1 TABLET BY MOUTH EVERY DAY IN THE MORNING ON AN EMPTY STOMACH Meloxicam 15 MG Oral TabletTAKE 1 TABLET DAILY. rOPINIRole HCl - 0.25 MG Oral Tablet1 in am, 1 lunch, 2 pm, 2 bedtime tiZANidine HCl - 4 MG Oral TabletTAKE 1/2 TO 1 TABLET BY MOUTH AT BEDTIME Tylenol Extra Strength 500 MG Oral TabletTAKE 1 TABLET EVERY 4 TO 6 HOURS NEEDED. Valsartan 320 MG Oral TabletTAKE 1 TABLET DAILY. Allergies Medication Brimonidine Tartrate POWD Recorded By: Heather Larson; 01/10/2019 9:23:16 AM Cosopt Recorded By: Heather Larson; 01/10/2019 9:23:16 AM levalbuterol Recorded By: Heather Larson; 01/10/2019 9:23:16 AM Penicillins Recorded By: Heather Larson; 01/10/2019 9:23:16 AM timolol Recorded By: Heather Larson; 01/10/2019 9:23:16 AM Trusopt Recorded By: Heather Larson; 01/10/2019 9:23:16 AM NonMedication Adhesive Tape Recorded By: Vanessa Da Silva; 10/06/2022 3:59:12 PM Vitals Vital Signs Recorded: [id number] 01:11PMRecorded: [id number] 01:08PM Izlmddod281, LUE, Hvynckc073, RUE, Sitting Fmyetknxh90, LUE, Erknniw51, RUE, Sitting Heart Rate80, R Radial Height5 ft 8 in Wrvzet384 lb BMI Iwmgwmvyxa38.53 kg/m2 BSA Calculated2.28 Signatures Electronically signed by : Josep Perdomo MD; Nov 30 2022 7:06PM EST (Author) Normal [facility]works Bacteria Fld Culton 11-30-19 Bacteria identified Cx Nom (Body fld) CULTURE, BODY FLD: No growth GRAM STAIN: No organisms seen Rare Polymorphonuclear leukocytes Rare Mononuclear cells Gram stain from primary specimen Normal [facility] Comment on above: Performed By: #### 6 11-4 ####[facility] LABCLIA [id number] [address] OF [facility] CNOVon 11-29-2022 CNOV Office Visit (LOORRM ) -------- VIRGILIO JOHNSON ([id number]) 1960 F Date Time Provider Department 11/29/22 12:00 PM LUCAS LEVY During your visit today, we recorded the following information about you: Lucas Levy PA-C 11/29/2022 5:10 PM Signed This document has been created with the use of voice recognition technology. It may contain inaccuracies such as misspellings, inaccurate syntax or word sense that escaped review. Chief complaint: Recheck of right knee Revision right TKR 08/19/2022 (3+ months) HISTORY: Virgilio is a 62 year old female. Patient comes in today for follow up of her right knee postoperatively. She reports that her strength is improving with therapy but she still gets significant tightness. She felt really good after her 2 water therapy sessions and is scheduled for more over the next few weeks. Also scheduled for [place] therapy sessions. She states pain is well controlled with Tylenol and meloxicam and needs a new prescription for meloxicam today. She reports that she is trying to walk for exercise but has increased swelling which is bothersome. The knee always feels tight. Pain level 2 with more tightness than anything/10. No other musculoskeletal complaints PAST MEDICAL HISTORY Diagnosis Date HLD (hyperlipidemia) HTN (hypertension) IBS (irritable bowel syndrome) OA (osteoarthritis) of knee Obesity RLS (restless legs syndrome) PAST SURGICAL HISTORY Procedure Laterality Date ARTHROSCOPY KNEE DIAGNOSTIC W/WO SYNOVIAL BX SPX right knee Arthroscopy, knee ARTHRP KNE CONDYLEANDPLATU MEDIALANDLAT COMPARTMENTS Right 2012 partial UCKR COLONOSCOPY SCREENING EYE SURGERY HX PAST SURGICAL HISTORY OF 03/18/2022 History of Aortic valve replacement PAST SURGICAL HISTORY OF lasik surgery PAST SURGICAL HISTORY OF Laser gonioplasty PAST SURGICAL HISTORY OF Left 05/2022 thyroidectomy Medications reviewed. ALLERGIES Allergen Reactions Latex Intolerance States she cannot have anything with elastic or latex, She gets a severe rash and areas of breakdown and pus. Penicillins Rash Had rash once years ago and does not remember if she has had PCN since then. Social History Tobacco Use Smoking status: Never Smokeless tobacco: Never Vaping Use Vaping Use: Never used Substance Use Topics Alcohol use: No Drug use: Never EXAMINATION: GENERAL: Appears healthy, well-nourished, no deformities. ORIENTATION: Alert and oriented to person place and time HABITUS: Normal GAIT: Ambulates with an antalgic stifflegged gait On physical exam of the right knee today, Appearance: No warmth or redness, wound is healing satisfactorily with no sign of infection. Calf is soft and nontender. Negative Homans. Tenderness: Minimal tenderness about the knee Swellin+ effusion of the knee itself, no swelling distally Range of motion: 5-120 degrees easily, but with tightness at extremes Quadriceps conditioning is improving nicely. RADIOGRAPHS: None needed today IMPRESSION: Encounter Diagnosis ICD-10-CM 1. 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 Aftercare following right knee joint replacement surgery Z47.1 Z96.651 3. Knee effusion, right M25.461 Large Joint Arthro/Inj: R knee joint She is making good progress with therapy but the knee is still quite tight and making it difficult for her to walk for exercise to build her stamina. I feel that the swelling that she currently has is interfering with her ability to rehab this knee. Discussed risk benefits and alternatives to aspiration of the knee including the risk of infection in the joint replacement and she wishes to proceed. We discussed the use of ice for postinjection pain. She will continue with her water and land therapy. Continue to try to build her stamina by walking twice a day. Her gait dramatically improved after aspiration. We will plan return to work on 12/17/2022 with no restrictions. Follow-up in 3 months for recheck. Sooner if problems arise. Her prescription for meloxicam was refilled today. Large Joint Arthro/Inj: R knee joint Informed Consent Consent Obtained: Written [place] Protocol A moment to CARE was completed. SIGN IN Personnel directly involved with the procedure wore the appropriate PPE. Special Equipment: N/A Patient/Surrogate Stated/Verified: Patient name, Date of , Relevant allergies and Intended procedure TIME OUT Intended patient and procedure match the source document(s). Consent documented and matches the intended procedure. Relevant labs, photos, and/or imaging studies have been reviewed. Correct side/site marked and visible. Medications required for procedure verified. No fire risk assessment and interventions applicable. No implant(s) inserted. 11/29/2022 1:41 PM The procedure site was prepped in the usual sterile fashion. Site: R (more content not included)... Normal [facility] SYNOVIAL FL,CRYSTAL ID/STAFF REVon 11-29-2022 CRYSTAL PRELIM, SF PRELIMINARY REPORT N o diagnostic crystals seen. SEE FINAL SF PATH REVIEW Normal [facility] Comment on above: Order Comment: Speci men Type: BODY FLUID SPECIMENOrdering Facility: [facility] Address: [address] [place] [address] Performed By: #### SHERRON POLOD ####[facility] LABORATORYIA [id number] [address] LABCLIA [id number] [address]#### [id number] ####[facility] LABCLIA [id number] [address] CRYSTAL REVIEW Reviewed by Kavya Sultana MD [facility] Comment on above: Order Comment: Speci men Type: BODY FLUID SPECIMENOrdering Facility: [facility] Address: [address] [place] [address] Performed By: #### R NIHARIKA SFCRID ####[facility] LABORATORYCLIA [id number] [address] LABCLIA [id number] [address]#### [id number] ####[facility] LABCLIA [id number] [address] Crystals LM Nom (Syn fld) None seen Normal None seen [facility] Comment on above: Order Comment: Speci men Type: BODY FLUID SPECIMENOrdering Facility: [facility] Address: [address] [place], [place] Performed By: #### R SHERRON BUNDYD ####[facility] LABORATORYCLIA [id number] [place] [address] [place] [facility] LABCLIA [id number] [place] [address] [place]#### [id number] ####[facility] LABCLIA [id number] [place] [address] [place] SYNOVIAL FLUID MANUAL DIFFon 11-29-2022 DIF TTL, SYNOVIAL FLUID 100 cells counted Normal [facility] Comment on above: Order Comment: Speci men Type: BODY FLUID SPECIMENOrdering Facility: [facility] Address: [address] [place], [place] Performed By: #### MAYTE POLO ####[facility] LABORATORYCLIA [id number] [place] [address] [place] [facility] LABCLIA [id number] [place] [address] [place]#### [id number] ####[facility] LABCLIA [id number] [place] [id number] [place] EOSIN %, SF 3 Normal [facility] Comment on above: Order Comment: Speci men Type: BODY FLUID SPECIMENOrdering Facility: [facility] Address: [address] [place], [place] Performed By: #### R SHERRON BUNDYD ####[facility] LABORATORYCLIA [id number] [place] [address] [place] [facility] LABCLIA [id number] [address] [address] [place]#### [id number] ####[facility] LABCLIA [id number] [facility] [address] [address] [place] LYMPH%, SF 57 Normal [facility] Comment on above: Order Comment: Speci men Type: BODY FLUID SPECIMENOrdering Facility: [facility] Address: [address] [place] [address] Performed By: #### MAYTE POLO ####[facility] LABORATORYCLIA [id number] [place] [address] [place] [facility] LABCLIA [id number] [facility] [place] [id number] [place]#### [id number] ####[facility] LABCLIA [id number] [address] [address] [place] MACRO%, SF 5 Normal [facility] Comment on above: Order Comment: Speci men Type: BODY FLUID SPECIMENOrdering Facility: [facility] Address: [address] [place] [id number] Performed By: #### MAYTE POLO ####[facility] LABORATORYCLIA [id number] [place] [address] [place] [facility] LABCLIA [id number] [address] [address] [place]#### [id number] ####[facility] LABCLIA [id number] [facility] [address] [address] [place] MONO%, SF 2 Normal [facility] Comment on above: Order Comment: Speci men Type: BODY FLUID SPECIMENOrdering Facility: [facility] Address: [address] [place] [id number] Performed By: #### MAYTE POLO ####[facility] LABORATORYCLIA [id number] [facility] [place] [address] [place] [facility] LABCLIA [id number] [place] [address] [place]#### [id number] ####[facility] LABCLIA [id number] [place] [address] [place] NEUT% 33 High 0-<25 [facility] Comment on above: Order Comment: Speci men Type: BODY FLUID SPECIMENOrdering Facility: [facility] Address: [address] [place] [address] Performed By: #### R MATYE BUNDY ####[facility] LABORATORYCLIA [id number] [address] LABCLIA [id number] [place] [address] [place]#### [id number] ####[facility] LABCLIA [id number] [place] [address] [place] SYNOVIAL FLUID, ROUTINEon Clarity (Unsp spec) Clear Normal [facility] Comment on above: Order Comment: Speci men Type: BODY FLUID SPECIMENOrdering Facility: [facility] Address: [address] [place] [address] Performed By: #### R PRADEEP BUNDYCRID ####[facility] LABORATORYCLIA [id number] [place], [place] [id number] [place] [address] STATES OF [facility] LABCLIA [id number] [place] [address] [place]#### [id number] ####[facility] LABCLIA [id number] [place] [address] [place] Color (Syn fld) Simran Abnormal Yellow [facility] Comment on above: Order Comment: Speci men Type: BODY FLUID SPECIMENOrdering Facility: [facility] Address: [address] [place], [place] [id number] Performed By: #### R MAYTE BUNDY ####[facility] LABORATORYCLIA [id number] [place], [place] [id number] [place] [address] LABCLIA [id number] [place] [address] [place]#### [id number] ####[facility] LABCLIA [id number] [place] [address] [place] RBC Manual cnt (Syn fld) [#/Vol] 58583 /uL High <2000 [facility] Comment on above: Order Comment: Speci men Type: BODY FLUID SPECIMENOrdering Facility: [facility] Address: [address] [place] [address] Performed By: #### MAYTE POLO ####[facility] [id number] [address] LABCLIA [id number] [place] [address] [place]#### [id number] ####[facility] LABIA [id number] [address] [place] Specimen source Nom (Unsp spec) KNEE RIGHT SYNOVIAL FLUID Normal [facility] Comment on above: Order Comment: Speci men Type: BODY FLUID SPECIMENOrdering Facility: [facility] Address: [address] [place] [address] Performed By: #### R PRADEEP BUNDYCRID ####[facility] LABORATORYCLIA [id number] [place] [address] [facility] LABCLIA [id number] [place] [address] [place]#### [id number] ####[facility] LABCLIA [id number] [place] [address] [place] WBC Manual cnt (Syn fld) [#/Vol] 496 /uL High 0-200 [facility] Comment on above: Order Comment: Speci men Type: BODY FLUID SPECIMENOrdering Facility: [facility] Address: [address] [place], [place] [address] [phone] Performed By: #### R MAYTE BUNDY ####[facility] LABORATORYCLIA [id number] [place] [id number] [facility] LABCLIA [id number] [address]#### [id number] ####[facility] LABIA [id number] [address] CNOVon 11-03-2022 CNOV Office Visit (LOORRM ) -------- VIRGILIO JOHNSON ([id number]) 1960 F Date Time Provider Department 11/03/22 10:30 AM LUCAS LEVY During your visit today, we recorded the following information about you: Lucas Levy PA-C 11/11/2022 5:16 PM Signed This document has been created with the use of voice recognition technology. It may contain inaccuracies such as misspellings, inaccurate syntax or word sense that escaped review. Chief complaint: Recheck of right knee Revision right TKR 08/19/2022 (2-1/2 months) HISTORY: Virgilio is a 62 year old female. Patient comes in today for follow up of her right knee postoperatively. She reports that overall she is making progress, particularly with water therapy. She notes that she still gets a great deal of swelling if she walks any significant period of time. She states pain is well controlled with Tylenol. Making good progress with physical therapy, particularly water therapy. No other musculoskeletal complaints PAST MEDICAL HISTORY Diagnosis Date HLD (hyperlipidemia) HTN (hypertension) IBS (irritable bowel syndrome) OA (osteoarthritis) of knee Obesity RLS (restless legs syndrome) PAST SURGICAL HISTORY Procedure Laterality Date ARTHROSCOPY KNEE DIAGNOSTIC W/WO SYNOVIAL BX SPX right knee Arthroscopy, knee ARTHRP KNE CONDYLEANDPLATU MEDIALANDLAT COMPARTMENTS Right 2012 partial UCKR COLONOSCOPY SCREENING EYE SURGERY HX PAST SURGICAL HISTORY OF 03/18/2022 History of Aortic valve replacement PAST SURGICAL HISTORY OF lasik surgery PAST SURGICAL HISTORY OF Laser gonioplasty PAST SURGICAL HISTORY OF Left 05/2022 thyroidectomy Medications reviewed. ALLERGIES Allergen Reactions Latex Intolerance States she cannot have anything with elastic or latex, She gets a severe rash and areas of breakdown and pus. Penicillins Rash Had rash once years ago and does not remember if she has had PCN since then. Social History Tobacco Use Smoking status: Never Smokeless tobacco: Never Vaping Use Vaping Use: Never used Substance Use Topics Alcohol use: No Drug use: Never EXAMINATION: GENERAL: Appears healthy, well-nourished, no deformities. ORIENTATION: Alert and oriented to person place and time HABITUS: Normal GAIT: Ambulating with a slight antalgic gait on start up and then normal gait thereafter. On physical exam of the right knee today, Appearance: No warmth or redness, wound is healing satisfactorily with no sign of infection. Calf is soft and nontender. Negative Homans. Tenderness: No significant tenderness. Swelling: Minimal swelling of the knee itself, no swelling distally Range of motion: Near 0-120 degrees easily, with just tightness at extremes Quadriceps conditioning is improving but still lacking compared to her left leg. RADIOGRAPHS: None needed today IMPRESSION: Encounter Diagnosis ICD-10-CM 1. 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 She should continue with her strengthening exercises as well as water therapy. We discussed walking twice a day for exercise to help build her stamina. Follow-up in 1 month for recheck and determine whether she will be ready to return to work thereafter. She agrees with this plan. Lucas Levy PA-C November 03, 2022 11:08 AM Referring Provider: SELF [200] Allergies As of Date: 11/03/2022 Noted Allergy Reaction LATEX 06/18/2013 5 - Intolerance Comments: States she cannot have anything with elastic or latex, She gets a severe rash and areas of breakdown and pus. PENICILLINS 06/18/2013 2 - Rash Comments: Had rash once years ago and does not remember if she has had PCN since then. Date Reviewed: 11/03/2022 Reviewed by: Lucas Levy PA-C - Fully Assessed Reason for Visit: Post Op [174] Primary Visit Diagnosis:Status post revision of total knee, 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] Other Visit Diagnosis:Aftercare following right knee joint replacement surgery [Z47.1, Z96.651] Order(s):CONSULT TO PHYSICAL THERAPY [9032] Order #: [id number]: 1 Prescriptions as of 11/11/2022 - oxyCODONE IR (ROXICODONE) 5 mg immediate release tablet take 1 every 4-6 hours as needed for pain - aspirin, enteric coated (ASPIRIN, ENTERIC COATED) 81 mg EC tablet Take 1 tablet by mouth twice daily for 4 weeks - levothyroxine (SYNTHROID) 100 mcg tablet TAKE 1 TABLET BY MOUTH EVERY DAY IN THE MORNING ON AN EMPTY STOMACH - terbinafine HCl (LAMISIL) 250 mg tablet - tiZANidine (ZANAFLEX) 4 mg tablet Take 2-4 mg by mouth daily at bedtime. - valsartan (DIOVAN) 320 mg tablet Take 320 mg by mouth once daily. - amLODIPine (NORVASC) 5 mg tablet Take 5 mg by mouth once daily. - clindamycin (CLEOCIN HCL) 300 mg capsule TWO TABS ONE HOUR PRIOR TO DENTAL PROCEDURE AND TWO (more content not included)... Normal [facility] CNOVon 10-15-2022 CNOV Office Visit (LOORRM ) -------- VIRGILIO JOHNSON ([id number]) 1960 F Date Time Provider Department 10/15/22 11:00 AM VIOLET COMBS During your visit today, we recorded the following information about you: Violet Combs II, MD 10/15/2022 2:27 PM Signed see dictated note Violet Combs II, MD Referring Provider: SELF [200] Allergies As of Date: 10/15/2022 Noted Allergy Reaction LATEX 06/18/2013 5 - Intolerance Comments: States she cannot have anything with elastic or latex, She gets a severe rash and areas of breakdown and pus. PENICILLINS 06/18/2013 2 - Rash Comments: Had rash once years ago and does not remember if she has had PCN since then. Date Reviewed: 10/15/2022 Reviewed by: Violet Combs MD - Fully Assessed Reason for Visit: Established Patient [175] Follow Up [171] Knee Replacement [363] Primary Visit Diagnosis:Status post revision of total knee, 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] Order(s):AQUATIC COMMUNITY EXERCISE [52782YQL] Order #: [id number] Prescriptions as of 10/15/2022 - oxyCODONE IR (ROXICODONE) 5 mg immediate release tablet take 1 every 4-6 hours as needed for pain - aspirin, enteric coated (ASPIRIN, ENTERIC COATED) 81 mg EC tablet Take 1 tablet by mouth twice daily for 4 weeks - levothyroxine (SYNTHROID) 100 mcg tablet TAKE 1 TABLET BY MOUTH EVERY DAY IN THE MORNING ON AN EMPTY STOMACH - terbinafine HCl (LAMISIL) 250 mg tablet - tiZANidine (ZANAFLEX) 4 mg tablet Take 2-4 mg by mouth daily at bedtime. - valsartan (DIOVAN) 320 mg tablet Take 320 mg by mouth once daily. - amLODIPine (NORVASC) 5 mg tablet Take 5 mg by mouth once daily. - clindamycin (CLEOCIN HCL) 300 mg capsule TWO TABS ONE HOUR PRIOR TO DENTAL PROCEDURE AND TWO TABS SIX HOURS AFTER THE DENTAL PROCEDURE - acetaminophen (TYLENOL) 500 mg tablet Take 2 tablets by mouth every 8 hours. - docusate sodium (COLACE) 100 mg capsule Take 1 capsule by mouth twice daily as needed for Constipation. - rOPINIRole (REQUIP) 0.25 mg tablet Take 1 tablet by mouth three times daily. - gabapentin (NEURONTIN) 100 mg capsule Take 1 capsule by mouth twice daily for 30 days. - atorvastatin (LIPITOR) 10 mg tablet TK 1 T PO QD - dicyclomine 20 mg tablet Take 20 mg by mouth twice daily. Problem List As Of Date 10/15/2022 Noted Resolved OA (osteoarthritis) of knee [M17.9] 06/08/2013 Knee pain [M25.569] 07/05/2013 08/19/2022 Acute shoulder bursitis [M75.50] 09/19/2013 Status post left knee replacement [Z96.652] 09/19/2013 S/P TKR o/90 days [Z96.659] 07/03/2014 HTN (hypertension) [I10] IBS (irritable bowel syndrome) [K58.9] HLD (hyperlipidemia) [E78.5] Obesity [E66.9] Obesity, Class II, BMI 35-39.9 [E66.9] 02/03/2020 Primary osteoarthritis of left knee [M17.12] 02/04/2020 Effusion of left knee [M25.462] 04/30/2020 08/19/2022 Patellofemoral arthritis of right knee [M17.11] 03/27/2021 S/P revision of total knee, 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] 03/27/2021 Effusion of right knee [M25.461] 03/27/2021 08/19/2022 Aortic valve stenosis [I35.0] 08/05/2022 RLS (restless legs syndrome) [G25.81] 08/05/2022 Hypothyroidism [E03.9] 08/05/2022 Acute cystitis without hematuria [N30.00] 08/09/2022 08/19/2022 Failed total knee, 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] 08/19/2022 Failed total knee arthroplasty, initial encount*08/19/2022 Postoperative anemia [D64.9] 08/20/2022 Encounter Status:Closed by VIOLET COMBS II on 10/15/22 Normal [facility] Office Visit (Cardiology)on 10-06-2022 Follow-up visit Diagnoses/Problems Assessed Dyspnea (786.09) (R06.00) S/P TAVR (transcatheter aortic valve replacement) (V43.3) (Z95.2) Essential hypertension, benign (401.1) (I10) Never a smoker Class 2 obesity with body mass index (BMI) of 38.0 to 38.9 in adult (278.00,V85.38) (E66.9,Z68.38) Hyperlipidemia (272.4) (E78.5) Orders Class 2 obesity with body mass index (BMI) of 38.0 to 38.9 in adult Healthy Weight Tips; Status:Complete - Retrospective Authorization; Done: 06Oct2022 Some eating tips that can help you lose weight.; Status:Complete - Retrospective Authorization; Done: 06Oct2022 Essential hypertension, benign Start: amLODIPine Besylate 10 MG Oral Tablet; TAKE 1 TABLET DAILY SocHx: Never a smoker Tobacco Use Screening; Status:Complete; Done: 06Oct2022 Unlinked Stop: amLODIPine Besylate 5 MG Oral Tablet Patient Instructions Please bring all medicines, vitamins, and herbal supplements with you when you come to the office. Prescriptions will not be filled unless you are compliant with your follow up appointments or have a follow up appointment scheduled as per instruction of your physician. Refills should be requested at the time of your visit Blood Pressure Follow Up In 8 weeks Follow up in [ 9] months Chief Complaint VIRGILIO JOHNSON is being seen for a 6 month follow-up of. History of Present Illness Patient here for follow-up and management for aortic valve disease status post recent TAVR, hypertension, obesity./Dermatology denies cardiac complaint. She reports he underwent knee surgery without any issues. Blood pressure seems to be elevated. She denies lightheadedness, dizziness or syncope. Assessment 1. Aortic stenosis status post TAVR done without any complication 2. Hypertension suboptimally controlled 3. Hyperlipidemia 4. Obesity 5.. I discussed with her endocarditis prophylaxis at great length Plan 1. I advised patient to increase her amlodipine to 10 mg daily. She is to continue this medication and increase her losartan to 20 2. I advised Conor her treatment BMP and a previous 3. I encouraged her to lose weight, exercise and diet and improved address her risk factor aggressively 4. Endocarditis prophylaxis 5. Return back in 9 months Current Meds Medication NameInstruction amLODIPine Besylate 5 MG Oral TabletTake 1 tablet daily Aspirin Low Dose 81 MG Oral Tablet Delayed ReleaseTake 1 tablet twice daily Atorvastatin Calcium 10 MG Oral TabletTAKE 1 TABLET Bedtime Azithromycin 500 MG Oral TabletTAKE 1 TABLET 30-60 mins before your dental procedure Dicyclomine HCl - 20 MG Oral TabletTAKE 1 TABLET TWICE DAILY. FeroSul 325 (65 Fe) MG Oral TabletTAKE 1 TABLET DAILY DIRECTED. Gabapentin 100 MG Oral CapsuleTAKE 2 CAPSULE Twice daily Levothyroxine Sodium 100 MCG Oral TabletTAKE 1 TABLET BY MOUTH EVERY DAY IN THE MORNING ON AN EMPTY STOMACH Meloxicam 15 MG Oral TabletTAKE 1 TABLET DAILY. rOPINIRole HCl - 0.25 MG Oral Tablet1 in am, 1 lunch, 2 pm, 2 bedtime tiZANidine HCl - 4 MG Oral TabletTAKE 1/2 TO 1 TABLET BY MOUTH AT BEDTIME Tylenol Extra Strength 500 MG Oral TabletTAKE 1 TABLET EVERY 4 TO 6 HOURS NEEDED. Valsartan 320 MG Oral TabletTAKE 1 TABLET DAILY. Allergies Medication Brimonidine Tartrate POWD Recorded By: Heather Larson; 01/10/2019 9:23:16 AM Cosopt Recorded By: Heather Larson; 01/10/2019 9:23:16 AM levalbuterol Recorded By: Heather Larson; 01/10/2019 9:23:16 AM Penicillins Recorded By: Heather Larson; 01/10/2019 9:23:16 AM timolol Recorded By: Heather Larson; 01/10/2019 9:23:16 AM Trusopt Recorded By: Heather Larson; 01/10/2019 9:23:16 AM NonMedication Adhesive Tape Recorded By: Vanessa Da Silva; 10/06/2022 3:59:12 PM Social History Problems Caffeine use (V49.89) (Z78.9) 2-3 cups coffee daily Never a smoker No alcohol use No illicit drug use Review of Systems Constitutional: not feeling tired. Cardiovascular: no intermittent leg claudication and as noted in HPI. Respiratory: no cough and no shortness of breath. Gastrointestinal: no change in bowel habits and no blood in stools. Integumentary: no skin rashes. Neurological: no seizures and no frequent falls. All other systems have been reviewed and are negative for complaint. Vitals Vital Signs Recorded: 06Oct2022 03:59PM Heart Rate80, L Radial Ahjoygjh797, LUE, Sitting Ukvtuqtoq25, LUE, Sitting Height5 ft 8 in Rnqiud426 lb BMI Lhjobpmovz70.01 kg/m2 BSA Calculated2.25 Tobacco Useb) No PHQ-2 #1. Over the last 2 weeks have you felt down, depressed or hopeless? (If yes, answer PHQ-9 below)No PHQ-2 #2. Over the last 2 weeks have you felt little interest or pleasure in doing things? (If yes, answer PHQ-9 below)No Physical Exam Constitutional: alert and in no acute distress. Neck: neck is supple, symmetric, trachea midline, no masses and no thyromegaly . Pulmonary: no increased work of breathing or signs of respiratory distress and l (more content not included)... Normal [facility] Tobacco Screening.on 023 Adult depression screening assessment No [facility] y 250 DO Work Phone: Tobacco use status CPHS b) No [facility] y 250 DO Work Phone: MAGNESIUMon 10-01-2022 Magnesium [Mass/Vol] 1.7 mg/dL Critically low 1.8-2.4 [facility] Comment on above: Performed By: #### Kathryn Crouch, PHOS #### [facility] [address] [place] [address] Dr. Luh Brown PHOSPHORUSon 10-01-2022 Phosphate [Mass/Vol] 4.5 mg/dL Normal 2.6-4.7 [facility] Comment on above: Performed By: #### Kathryn Crouch, PHOS #### [facility] [address] [place] [address] Dr. Luh Brown VIT B12 AND FOLATEon 023 Cobalamin (Vitamin B12) [Mass/Vol] 316.0 pg/mL Normal 193.0-986. 0 [facility] Comment on above: Performed By: #### B 12FOL #### [facility] [address] [place] [address] Dr. Luh Brown FOLATE 16.70 ng/mL Normal 8.60-58.90 [facility] Comment on above: Performed By: #### B 12FOL #### [facility] [address] [place] [address] Dr. uLh Brown No Panel InformationOrdered By: Spenser Canchola on 09-17-2022 Total Triiodothyronine 1.33 ng/mL 0.87-1.78 [facility] TSH DL <= 0.005 mIU/L QnOrde red By: Spenser Canchola on 09-17-2022 TSH Qn 2.74 m[IU]/L 0.45-5.33 [facility] Thyroid Stimulating Hormoneo n 09-17-2022 TSH Qn 2.74 m[IU]/L Normal 0.45-5.33 [facility] Comment on above: Order Comment: Reaso n for Exam Status post partial thyroidectomy Result Comment: PERF ORMED BY: [place] [address] PATHOLOGIST 3RD PRESSMAN DORA ALLISON M.D. Performed By: #### B MP #### [facility] [address] [place] [address] Thyroxine (T4) Totalon 09-17 T4 [Mass/Vol] 7.73 ug/dL Normal 5.39-11.82 [facility] Comment on above: Order Comment: Reaso n for Exam Status post partial thyroidectomy Performed By: #### B MP #### [facility] [address] [place] [address] Thyroxine (T4) [Mass/volume] in Serum or PlasmaOrdered By: Spenser Canchola on 09-17-2022 T4 [Mass/Vol] 7.73 ug/dL 5.39-11.82 [facility] Triiodothyronine (T3) Totalo n 09-17-2022 Triiodothyronine (T3) Total 1.33 ng/mL Normal 0.87-1.78 [facility] Comment on above: Order Comment: Reaso n for Exam Status post partial thyroidectomy Performed By: #### B MP #### [facility] [address] [place] [address] CNOVon 09-07-2022 CNOV Office Visit (LOORRM ) -------- VIRGILIO JOHNSON ([id number]) 1960 F Date Time Provider Department 09/07/22 2:00 PM LUCAS LEVY LOORRKathryn During your visit today, we recorded the following information about you: Lucas Levy PA-C 09/07/2022 2:53 PM Signed Continue Physical Therapy Walk twice a day for exercise paying attention to your gait. Heel to toe and longer strides. You may wash the incision and treat like normal skin. Tissue massage to the skin around the incision to loosen it up, 2 minutes multiple times a day. You may use lotion on the incision/glue several times a day to soften the glue. Do not pick at the scabs. Let them fall off on their own. You may use heat on a low setting to relax tissues. Use Ice after activity/exercise. Heat loosen things up, Ice quiets things down. Lucas Levy PA-C 09/07/2022 4:27 PM Signed This document has been created with the use of voice recognition technology. It may contain inaccuracies such as misspellings, inaccurate syntax or word sense that escaped review. Chief complaint: Recheck of right knee Right revision TKR 08-19-22 (3 weeks) Left TKR 02/03/2022 (7 months) HISTORY: Virgilio is a 62 year old female. Patient comes in today for follow up of her right knee postoperatively. She reports that overall she is doing fairly well. Making progress with physical therapy but sore afterwards. She states pain is well controlled with occasional oxycodone and Tylenol. Pain level 0-6/10. No other musculoskeletal complaints PAST MEDICAL HISTORY Diagnosis Date HLD (hyperlipidemia) HTN (hypertension) IBS (irritable bowel syndrome) OA (osteoarthritis) of knee Obesity RLS (restless legs syndrome) PAST SURGICAL HISTORY Procedure Laterality Date ARTHROSCOPY KNEE DIAGNOSTIC W/WO SYNOVIAL BX SPX right knee Arthroscopy, knee ARTHRP KNE CONDYLEANDPLATU MEDIALANDLAT COMPARTMENTS Right 2013 partial UCKR COLONOSCOPY SCREENING EYE SURGERY HX PAST SURGICAL HISTORY OF 03/18/2022 History of Aortic valve replacement PAST SURGICAL HISTORY OF lasik surgery PAST SURGICAL HISTORY OF Laser gonioplasty PAST SURGICAL HISTORY OF Left 05/2022 thyroidectomy Medications reviewed. ALLERGIES Allergen Reactions Latex Intolerance States she cannot have anything with elastic or latex, She gets a severe rash and areas of breakdown and pus. Penicillins Rash Had rash once years ago and does not remember if she has had PCN since then. Social History Tobacco Use Smoking status: Never Smokeless tobacco: Never Vaping Use Vaping Use: Never used Substance Use Topics Alcohol use: No Drug use: Never EXAMINATION: GENERAL: Appears healthy, well-nourished, no deformities. ORIENTATION: Alert and oriented to person place and time HABITUS: Normal GAIT: Ambulatory Aid: a walker ambulating with a flat-footed short stance gait though she can correct this when she concentrates and ambulate with a relatively normal gait and should be ready for a cane at this point. On physical exam of the right knee today, Appearance: No warmth or redness, wound is healing satisfactorily with no sign of infection. Calf is soft and nontender. Negative Homans. Tenderness: Moderate tightness across the anterior knee and distal quadriceps Swelling: Moderate swelling of the knee itself, no swelling distally Range of motion: Near 0-95 degrees easily, with just tightness at extremes Does have difficulty with active extension though can hold extension when brought there. RADIOGRAPHS: Personally reviewed by myself and with the patient today demonstrating right revision TKR components in satisfactory position with good interfaces noted. No evidence of wear or loosening. Level patellar tracking on skyline view. No other osseous abnormalities. IMPRESSION: Encounter Diagnosis ICD-10-CM 1. S/P revision of total knee, right Z96.651 XR KNEE POST OP 3V AP/LAT/MERCHANT RIGHT Overall she is doing fairly well and better than she think she is. We discussed the importance of walking now twice a day for exercise paying attention to her gait and may advance to a cane as tolerated. Discussed tricks to work on active and passive extension. Follow-up in 3 weeks for 6-week recheck. Lucas Levy PA-C September 07, 2022 4:22 PM Referring Provider: LUCAS LEVY [[id number]] Allergies As of Date: 09/07/2022 Noted Allergy Reaction LATEX 06/18/2013 5 - Intolerance Comments: States she cannot have anything with elastic or latex, She gets a severe rash and areas of breakdown and pus. PENICILLINS 06/18/2013 2 - Rash Comments: Had rash once years ago and does not remember if she has had PCN since then. Date Reviewed: 09/07/2022 Reviewed by: Regina Reyes MA - Fully Assessed Reason for Visit: Established Patient [175] Follow Up [171] Knee Replacement [363] Primary Visit Diagnosis:S (more content not included)... Normal [facility] XR KNEE 3V AP/LAT/MERCHANT R Ton 09-07-2022 XR KNEE 3V AP/LAT/MERCHANT RT * * *Final Report* * * DATE OF EXAM: Sep 07 2022 2:08PM LZX 5209 - XR KNEE 3V AP/LAT/MERCHANT RT / PROCEDURE REASON: S/P revision of total knee, right * * * * Physician Interpretation * * * * EXAMINATION / TECHNIQUE: XR KNEE 3V AP/LAT/MERCHANT RT HISTORY: post op revision of right total knee replacement S/P revision of total knee, right COMPARISON: 08/19/2022 RESULT: Right total knee semiconstrained arthroplasty with patellar resurfacing. There is no periprosthetic fracture or lucency. No acute fracture or dislocation. No malalignment. Moderate joint effusion. Resolution of postoperative soft tissue gas. Left knee arthroplasty without complication. IMPRESSION: Arthroplasty without complication Agency Manager: [employer] Transcribe Date/Time: Sep 07 2022 3:30P Dictated by : CHARITY WEST MD This examination was interpreted and the report reviewed and electronically signed by: CHARITY WEST MD on Sep 07 2022 8:49PM EST [id number] Normal [facility] XR KNEE POST OP 3V AP/LAT/ME RCHANT RIGHTon 09-07-2022 [facility] XR Knee AP and Lateral and M erchantson 09-07-2022 IMPRESSION: Arthroplasty without complication Agency Manager: [employer] Transcribe Date/Time: Sep 07 2022 3:30P Dictated by : CHARITY WEST MD This examination was interpreted and the report reviewed and electronically signed by: CHARITY WEST MD on Sep 07 2022 8:49PM EST DIVISION OF RADIOLOGY * * *Final Report* * * DATE OF EXAM: Sep 07 2022 2:08PM LZX 5209 - XR KNEE 3V AP/LAT/MERCHANT RT / PROCEDURE REASON: S/P revision of total knee, right * * * * Physician Interpretation * * * * EXAMINATION / TECHNIQUE: XR KNEE 3V AP/LAT/MERCHANT RT HISTORY: post op revision of right total knee replacement S/P revision of total knee, right COMPARISON: 08/19/2022 RESULT: Right total knee semiconstrained arthroplasty with patellar resurfacing. There is no periprosthetic fracture or lucency. No acute fracture or dislocation. No malalignment. Moderate joint effusion. Resolution of postoperative soft tissue gas. Left knee arthroplasty without complication. DIVISION OF RADIOLOGY Provider, [facility] - 09/07/2022 * * *Final Report* * * DATE OF EXAM: Sep 07 2022 2:08PM LZX 5209 - XR KNEE 3V AP/LAT/MERCHANT RT / PROCEDURE REASON: S/P revision of total knee, right * * * * Physician Interpretation * * * * EXAMINATION / TECHNIQUE: XR KNEE 3V AP/LAT/MERCHANT RT HISTORY: post op revision of right total knee replacement S/P revision of total knee, right COMPARISON: 08/19/2022 RESULT: Right total knee semiconstrained arthroplasty with patellar resurfacing. There is no periprosthetic fracture or lucency. No acute fracture or dislocation. No malalignment. Moderate joint effusion. Resolution of postoperative soft tissue gas. Left knee arthroplasty without complication. IMPRESSION IMPRESSION: Arthroplasty without complication Agency Manager: [facility] Transcribe Date/Time: Sep 07 2022 3:30P Dictated by : CHARITY WEST MD This examination was interpreted and the report reviewed and electronically signed by: CHARITY WEST MD on Sep 07 2022 8:49PM EST [facility] Radiology Study observation (narrative) [facility] XR Knee AP and Lateral and M erchantsOrdered By: Ccf Provider on 09-07-2022 [facility] Basic metabolic 2000 panelon 08-20-2022 Anion gap [Moles/Vol] 12 mmol/L Normal 9-18 [facility] Comment on above: Order Comment: Speci men Type: BLOOD SPECIMENOrdering Facility: [facility] Address: [address] [address] Performed By: #### 2 4321-2 ####[facility] [id number] [place] [address] [place] Calcium [Mass/Vol] 8.6 mg/dL Normal 8.5-10.2 [facility] Comment on above: Order Comment: Speci men Type: BLOOD SPECIMENOrdering Facility: [facility] Address: [address] [address] Performed By: #### 2 4321-2 ####[facility] [id number] [place] [address] [place] Chloride [Moles/Vol] 106 mmol/L High 97-105 [facility] Comment on above: Order Comment: Speci men Type: BLOOD SPECIMENOrdering Facility: [facility] Address: [address] [place] [address] Performed By: #### 2 4321-2 ####[facility] [id number] [place] [address] [place] CO2 [Moles/Vol] 20 mmol/L Low 22-30 [facility] Comment on above: Order Comment: Speci men Type: BLOOD SPECIMENOrdering Facility: [facility] Address: [address] [address] Performed By: #### 2 4321-2 ####[facility] [id number] [place] [address] [place] Creatinine [Mass/Vol] 1.14 mg/dL High 0.58-0.96 [facility] Comment on above: Order Comment: Speci men Type: BLOOD SPECIMENOrdering Facility: [facility] Address: [address] [address] Performed By: #### 2 4321-2 ####[facility] [id number] [place] [address] [place] ESTIMATED GLOMERULAR FILTRATION RATE 55 mL/min/1.73m??? Low >=60 [facility] Comment on above: Order Comment: Symone fraire Type: BLOOD SPECIMENOrdering Facility: [facility] Address: [address] [place] [address] Result Comment: Jt mated Glomerular Filtration Rate (eGFR) is calculated using the 2020 CKD-EPI creatinine equation. This equation utilizes serum creatinine, sex, and age as parameters. The creatinine assay has traceable calibration to isotope dilution-mass spectrometry. Refer to KDIGO guidelines for clinical interpretation. In patients with unstable renal function, e.g. those with acute kidney injury, the eGFR may not accurately reflect actual GFR. Performed By: #### 2 4321-2 ####[facility] [id number] [place] [address] [place] Glucose [Mass/Vol] 127 mg/dL High 74-99 [facility]spital Comment on above: Order Comment: Symone fraire Type: BLOOD SPECIMENOrdering Facility: [facility] Address: [address] [place], [place] [address] Result Comment: The Canadian Diabetes Association (ADA) provides guidance for cutoff values for fasting glucose and random glucose. The ADA defines fasting as no caloric intake for at least 8 hours. Fasting plasma glucose results between 100 to 125 mg/dL indicate increased risk for diabetes (prediabetes). Fasting plasma glucose results greater than or equal to 126 mg/dL meet the criteria for diagnosis of diabetes. In the absence of unequivocal hyperglycemia, results should be confirmed by repeat testing. In a patient with classic symptoms of hyperglycemia or hyperglycemic crisis, random plasma glucose results greater than or equal to 200 mg/dL meet the criteria for diagnosis of diabetes. Reference: Standards of Medical Care in Diabetes 2016, Canadian Diabetes Association. Diabetes Care. 2016.39(Suppl 1). Performed By: #### 2 4321-2 ####[facility] [id number] [place] [address] [place] Potassium [Moles/Vol] 4.9 mmol/L Normal 3.7-5.1 [facility] Comment on above: Order Comment: Symone fraire Type: BLOOD SPECIMENOrdering Facility: [facility] Address: [address] [address] Performed By: #### 2 4321-2 ####[facility] [id number] [address] [id number] [place] [facility] Sodium [Moles/Vol] 138 mmol/L Normal 136-144 [facility] ospital Comment on above: Order Comment: Speci men Type: BLOOD SPECIMENOrdering Facility: [facility] Address: [address] [address] Performed By: #### 2 4321-2 ####[facility] [id number] [address] [place] Urea nitrogen [Mass/Vol] 27 mg/dL High 7- [facility] Comment on above: Order Comment: Speci men Type: BLOOD SPECIMENOrdering Facility: [facility] Address: [address] [address] Performed By: #### 2 4321-2 ####[facility] [id number] [address] [place] CBC panel Auto (Bld)on 08-20 Erythrocyte distribution width (RBC) [Ratio] 13.8 % Normal 11.5-15.0 [facility] Comment on above: Order Comment: Speci men Type: BLOOD SPECIMENOrdering Facility: [facility] Address: [address] [address] Performed By: #### 5 8410-2 ####[facility] [id number] [address] [place] Hematocrit (Bld) [Volume fraction] 26.3 % Low 36.0-46.0 [facility] Comment on above: Order Comment: Speci men Type: BLOOD SPECIMENOrdering Facility: [facility] Address: [address] [address] Performed By: #### 5 8410-2 ####[facility] [id number] [place] [address] [place] Hemoglobin (Bld) [Mass/Vol] 8.8 g/dL Low 11.5-15.5 [facility] Comment on above: Order Comment: Speci men Type: BLOOD SPECIMENOrdering Facility: [facility] Address: [address] [address] Performed By: #### 5 8410-2 ####[facility] [id number] [address] [place] MCH (RBC) [Entitic mass] 29.2 pg Normal 26.0-34.0 [facility] Comment on above: Order Comment: Speci men Type: BLOOD SPECIMENOrdering Facility: [facility] Address: [address] [address] Performed By: #### 5 8410-2 ####[facility] [id number] [address] [place] MCHC (RBC) [Mass/Vol] 33.5 g/dL Normal 30.5-36.0 [facility] Comment on above: Order Comment: Speci men Type: BLOOD SPECIMENOrdering Facility: [facility] Address: [address] [address] Performed By: #### 5 8410-2 ####[facility] [id number] [address] [place] MCV (RBC) [Entitic vol] 87.4 fL Normal 80.0-100.0 [facility] Comment on above: Order Comment: Speci men Type: BLOOD SPECIMENOrdering Facility: [facility] Address: [address] [address] Performed By: #### 5 8410-2 ####[facility] [id number] [address] [place] Nucleated RBC (Bld) [#/Vol] 10*3/uL Normal <0.01 [facility] Comment on above: Order Comment: Speci men Type: BLOOD SPECIMENOrdering Facility: [facility] Address: [address] [address] Performed By: #### 5 8410-2 ####[facility] [id number] [place] [address] [place] Platelet mean volume (Bld) [Entitic vol] 9.5 fL Normal 9.0-12.7 [facility] Comment on above: Order Comment: Speci men Type: BLOOD SPECIMENOrdering Facility: [facility] Address: [address] [place], [place] [address] Performed By: #### 5 8410-2 ####[facility] [id number] [place] [address] [place] Platelets (Bld) [#/Vol] 247 10*3/uL Normal 150-400 [facility] Comment on above: Order Comment: Speci men Type: BLOOD SPECIMENOrdering Facility: [facility] Address: [address] [place], [place] [address] Performed By: #### 5 8410-2 ####[facility] [id number] [place] [address] [place] RBC (Bld) [#/Vol] 3.01 10*6/uL Low 3.90-5.20 [facility] Comment on above: Order Comment: Speci men Type: BLOOD SPECIMENOrdering Facility: [facility] Address: [address] [place], [place] [address] Performed By: #### 5 8410-2 ####[facility] [id number] [address] [id number] [place] WBC (Bld) [#/Vol] 10.89 10*3/uL Normal 3.70-11.00 [facility] Comment on above: Order Comment: Speci men Type: BLOOD SPECIMENOrdering Facility: [facility] Address: [address] [place], [place] [address] Performed By: #### 5 8410-2 ####[facility] [id number] [place] [address] [facility] [place] CNDSon 08-20-2022 CNDS HNO ID: [id number] Author: Jennifer Herring PA-C Service: Orthopaedic Surgery Author Type: Physician Agriculture Engineer Type: Discharge Summary Filed: 08/20/2022 1:21 PM Note Text: -------- Attestation signed by Violet Combs MD at 08/20/2022 2:03 PM I have personally performed face to face diagnostic evaluation on this patient. I have examined the patient and reviewed radiographic studies and agree with plan as outlined above. Violet Combs II, MD August 20, 2022 2:03 PM -------- DISCHARGE SUMMARY Patient Name: Virgilio Johnson : 1960 ADMISSION DATE: 08/19/2022 DISCHARGE DATE: 08/20/2022 Attending Physician: Violet Combs MD Primary Diagnosis: S/P right unicompartmental knee replacement [Z96.651] Primary osteoarthritis of right knee [M17.11] Failed total knee arthroplasty, initial encounter ([facility]) [T84.018A, Z96.659] Operations During Hospitalization: Procedure(s) (LRB): REVISION JOINT TOTAL KNEE FEMORAL AND ENTIRE TIBIAL COMPONENT LORETTA (Right) Procedures During Hospitalization: No procedures performed Hospital Course: Virgilio is a 62 year old female complaining of right Knee pain not responsive to a comprehensive course of conservative treatment. Right knee revision total arthroplasty was proposed and the patient wishes to proceed and was medically cleared prior to the procedure. Patient underwent a Right knee revision total arthroplasty and was transferred to the PACU in stable condition, She was then admitted to the hospital. Post operatively She did well. Post-operative HgB was stable and within acceptable range and remained there throughout the hospital stay not requiring transfusion. Wound was without sign of infection. She was able to actively participate in a physical and occupational therapy program for gait training and mobilization. Patient's serum creatinine noted to be mildly elevated from baseline. Valsartan held this morning. Outpatient CMP and CBC ordered per hospital medicine in 1 week to confirm back to baseline. Due to the operative findings and procedure performed which is consistent with a major orthopedic procedure, the postoperative analgesia will exceed the allowable morphine equivalent dose. PHYSICAL EXAM: General Appearance: Well appearing, alert, in no acute distress, well-hydrated, well nourished. Right Lower Extremity: Dorsalis pedis pulses palpable. Posterior tibial pulses palpable. Dorsi flexion 5/5. Plantar flexion 5/5. Extensor hallucis extension: 5/5. Sensory intact to light touch L1-S1. Dressing clean, dry, and intact. Surgical site Silverlon intact. Patient Condition at Discharge: Stable Discharge Disposition: Home with Self Care DISCHARGE MEDICATION: Current Discharge Medication List START taking these medications aspirin, enteric coated (ASPIRIN, ENTERIC COATED) 81 mg EC tablet Take 1 tablet by mouth twice daily for 4 weeks Qty: 56 tablet Refills: 0 oxyCODONE IR (ROXICODONE) 5 mg immediate release tablet Take 1-2 tablets by mouth every 4-6 hours as needed for pain. Qty: 50 tablet Refills: 0 Associated Diagnoses:Post-op pain CONTINUE these medications which have NOT CHANGED levothyroxine (SYNTHROID) 100 mcg tablet TAKE 1 TABLET BY MOUTH EVERY DAY IN THE MORNING ON AN EMPTY STOMACH tiZANidine (ZANAFLEX) 2-4 mg Take 2-4 mg by mouth daily at bedtime. valsartan (DIOVAN) 320 mg Take 320 mg by mouth once daily. amLODIPine (NORVASC) 5 mg Take 5 mg by mouth once daily. rOPINIRole (REQUIP) 0.25 mg Take 0.25 mg by mouth three times daily. gabapentin (NEURONTIN) 100 mg Take 100 mg by mouth twice daily. Qty: 60 capsule Refills: 0 atorvastatin (LIPITOR) 10 mg tablet TK 1 T PO QD Refills: 5 dicyclomine (BENTYL) 20 mg Take 20 mg by mouth twice daily. terbinafine HCl (LAMISIL) 250 mg tablet clindamycin (CLEOCIN HCL) 300 mg capsule TWO TABS ONE HOUR PRIOR TO DENTAL PROCEDURE AND TWO TABS SIX HOURS AFTER THE DENTAL PROCEDURE Qty: 4 capsule Refills: 1 Associated Diagnoses:S/P right unicompartmental knee replacement; Status post left knee replacement acetaminophen (TYLENOL) 1,000 mg Take 1,000 mg by mouth every 8 hours. Qty: docusate sodium (COLACE) 100 mg Take 100 mg by mouth twice daily as needed for constipation. Qty: 60 capsule Refills: 0 STOP taking these medications mupirocin (BACTROBAN) 2 % ointment Comments: Reason for Stopping: meloxicam (MOBIC) 15 mg Comments: Reason for Stopping: Patient underwent major orthopedic surgery with joint replacement and will require more than allocated 30MED for acute pain management. Future Appointments: Appointments for Next 60 Days Date Time Provider Location Dept Phone 09/10/2022 10:30 AM [facility] Bailey [phone] 09/29/2022 2:00 PM OLIVIA (more content not included)... [facility] CONSULT PROGon 08-20-2022 CONSULT PROG HNO ID: [id number] Author: Lashya Burnett APRN.PRINCIPAL WEB DEVELOPER Service: Hospital Medicine Author Type: Nurse Practitioner Type: Consult Progress Note Filed: 08/20/2022 1:04 PM Note Text: DEPARTMENT OF HOSPITAL MEDICINE CONSULT PROGRESS NOTE SERVICE DATE: 08/20/2022 SERVICE TIME: 1:03 PM Primary Care Physician: Oswaldo Grewal MD NIGHT AND WEEKEND COVERAGE: [place] COVERAGE: Days: [phone], please contact via [employer] Nights: [phone] - floor: please page Hospitalist night cover [phone] - 4th floor: please page Hospitalist night cover [phone] - 5th floor: please page Hospitalist night cover [phone] Subjective INTERVAL HPI: patient awake in chair at bedside, was just seen by PT/OT. Her knee pain is stable. She is tolerating her diet. She denies any NÚÑEZ, CP, or SOB. Denies any nausea. Her BP's have been stable. Valsartan held this morning for acute rise in Creat today. She is s/p AV replacement in March. Some post op anemia noted in CBC today. She was agreeable to getting repeat lab work in 1 week. Planning for DC to home today with outpt PT. Travel Screening No screening recorded since 08/18/22 0837 Travel History Travel since 07/20/22 No documented travel since 07/20/22 Current Facility-Administered Medications Medication Dose Route Frequency dicyclomine 20 mg tab(s) (BENTYL) 20 mg ORAL BID atorvastatin 10 mg tab(s) (LIPITOR) 10 mg ORAL AT BEDTIME amLODIPine 5 mg tab(s) (NORVASC) 5 mg ORAL DAILY tiZANidine 2-4 mg tab(s) (ZANAFLEX) 2-4 mg ORAL AT BEDTIME levothyroxine 100 mcg tab(s) (SYNTHROID) 100 mcg ORAL DAILY (6 AM) aspirin, enteric coated 81 mg tab(s) 81 mg ORAL BID lactated ringers iv infusion 100 mL/hr INTRAVENOUS CONTINUOUS acetaminophen 1,000 mg tab(s) (TYLENOL) 1,000 mg ORAL q 8 H oxyCODONE IR 5 mg tab(s) (ROXICODONE) 5 mg ORAL q 3 H PRN morphine 2 mg injection 2 mg INTRAVENOUS q 2 H PRN ondansetron 4 mg tab(s) (ZOFRAN) 4 mg ORAL q 6 H PRN Or ondansetron (PF) 4 mg injection (ZOFRAN) 4 mg INTRAVENOUS q 6 H PRN magnesium hydroxide 400 mg/5 mL 30 mL (MOM) 30 mL ORAL DAILY PRN [START ON 08/21/2022] bisacodyl EC 10 mg tab(s) (DULCOLAX) 10 mg ORAL DAILY aluminum-magnesium hydroxide-simethicone 200-200-20 mg/5 mL 30 mL (MAALOX,MYLANTA,MAG-AL PLUS) 30 mL ORAL q 2 H PRN ascorbic acid (vitamin C) 500 mg tab(s) (VITAMIN C) 500 mg ORAL BID w MEALS docusate sodium 100 mg cap(s) (COLACE) 100 mg ORAL BID senna 17.2 mg tab(s) (SENOKOT) 17.2 mg ORAL AT BEDTIME NaCl 0.9% iv flush bag 20 mL INTRAVENOUS PRN gabapentin 200 mg cap(s) (NEURONTIN) 200 mg ORAL BID rOPINIRole 0.5 mg tab(s) (REQUIP) 0.5 mg ORAL 2 times per day rOPINIRole 0.25 mg tab(s) (REQUIP) 0.25 mg ORAL 2 times per day Objective PHYSICAL EXAM: BP 138/50 Pulse 61 Temp (Src) 97.9 (Oral) Resp 18 Ht 5' 7.992 (1.73m) Wt 254 lb (115.2kg) SpO2 98% BMI 38.63 kg/(m2). O2 Therapy: Room Air Physical Exam Performed: GENERAL: Alert, no distress, cooperative, Obese SKIN: Skin color, texture, turgor normal. No rashes or lesions. HEAD/SINUSES: No significant findings NECK: No jugulovenous distention, No carotid bruits, Carotid pulse normal contour, Supple BACK: Back symmetric, Normal curvature, ROM normal, No CVAT. LUNGS: Lungs clear to auscultation, Good diaphragmatic excursion, no cough on exam CARDIAC: RRR, + aortic murmur throughout, soft blowing ABDOMEN: Abdomen soft, non-tender, BS normal, No masses or organomegaly EXTREMITIES: right knee surgical dressing intact, 2 ice packs on knee. Right toes warms to touch with sensation intact and movement intact. NEURO: Grossly normal cognition, motor function, and cranial nerves III-XII PULSES: 2+ radial, 2+ dorsalis pedis Lines, Drains, and Airways Line Duration Peripheral 08/19/22 0925 Right Hand 20 Gauge 1 day Reviewed lines and needs to be continued: REASONS: post op DATA: Diagnostic tests reviewed for today's visit: Most recent labs Most recent imaging CBC, Coags, BMP, Mg, Phos Recent Labs 08/20/22 0436 WBC 10.89 HB 8.8* HCT 26.3* PLT 247 NA 138 K 4.9 CHLOR 106* CO2 20* BUN 27* CREAT 1.14* GLUC 127* CA 8.6 Liver Function, Amylase, AND Lipase Glom Filtration Rate ISIDORO, and AA Assessment/Plan Problem List Failed total knee, right (HCC) POA: Yes HTN (hypertension) POA: Yes IBS (irritable bowel syndrome) POA: Yes HLD (hyperlipidemia) POA: Yes Obesity, Class II, BMI 35-39.9 POA: Yes Aortic valve stenosis POA: Yes RLS (restless legs syndrome) POA: Yes Hypothyroidism POA: Yes Postoperative anemia POA: No HOSPITAL COURSE: Virgilio Johnson is a 62 year old female presented with past medical history of osteoarthritis, hypertension, hyperlipidemia, aortic valve stenosis, hypothyroidism, irritable bowel syndrome, and restless leg syndrome. Patient seen at bedside. Patient appears to be significantly uncomfortable having pain related to her restless leg syndrome. Further review of (more content not included)... [facility] THERAPY NTon 08-20-2022 THERAPY NT HNO ID: [id number] Author: Christin Serrato, OTR/L Service: Occupational Therapy Author Type: Occupational Therapist Type: Therapy (PT/OT/Speech/Resp) Filed: 08/20/2022 12:19 PM Note Text: Occupational Therapy Evaluation SERVICE DATE: 08/20/2022 SERVICE TIME: 1135 to 1213 ROOM: [place] [address] Patient demonstrated good understanding of precautions during ADL session and is cleared to go home from OT standpoint. Education provided to call for assistance when needing to get up with call mccray and phone within patients reach. TOMY Deleon aware of status. Recommended Discharge Disposition: Home Anticipated Discharge Needs: Physical Assist at Home Physical Assist at Home for: Cleaning, Laundry, Meals, Stairs, Safety, Self Care, Shopping, Transportation OT 6 Clicks Score: 23 Precautions/Activity Restrictions: Fall Risk, Total Knee Replacement, Weight Bearing Restrictions Extremity With Weight Bearing Restricted: Right Lower Extremity Right Lower Extremity Weight Bearing Status: WBAT Current Hospital Course: s/p R TKA Dr. Combs (previously uni knee R) Reason for Hospital Admission: uni knee revision to TKA Relevant Past Medical History: R uni knee, L TKA, HTN, IBS, OA, obesity, RLS Response to Therapy Interventions: Good participation in activities, On-track to achieve discharge goals Continue skilled needs due to: (d/c OT) Occupational Therapy Problem List: Education Deficit, Edema, Pain, Safety Deficits, Impaired Self Care, Decreased Activity Tolerance, Functional Mobility Impairment, Balance Impaired Cognition/Communication Deficits Responsiveness: Alert, Awake Follows Commands: 2-step Commands Treatment Interventions: Education, Self Care / Home Management, Energy Conservation Training, Functional Mobility Training, Balance Training Plan for next visit: (d/c OT) Home Environment Patient Lives With: Spouse, Family Assistance Available: 24-Hour Entry To Home: Stairs, With Rail Number Of Stairs Into Home: 4 Number Of Stairs To Bed/Bath: 16 (1/2 bath on 1st) Stairs to Bed/Bath with: Bilateral Rail Tub/Shower Type: tub shower Laundry: 10 steps down Equipment Owned: Elevated Toilet Seat, Commode- Raised, Cane, Walker- Standard Prior Functional Level: Within Functional Limits Prior Functional Level Comments: amb with cane (at times) in house and community, still working (on feet), indep with ADLs and iADLs Baseline Cognition: Oriented to situation, Oriented to time, Oriented to place, Oriented to self 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 [employer] Highest Level of Education: High School Occupational Factors Life Roles: Friend, Family Member, Parent, Spouse/Significant Other, Employed Identified Strengths: Access to Healthcare, Problem-Solving Skills, Follows Multi-Step Commands, Memory/Attention, Safety Awareness, Health Literacy, Motivation, Open to Adaptive Equipment/Strategies, Strong Awareness of Deficit(s), Effective Communication Skills, Self-Regulation, Involvement in Hobbies/Leisure Activities, Good Support System, Positive Coping Strategies Identified Barriers: Managing Pain Patient Report: I was uncomfortable on my back so I am trying to sleep on my side CURRENT FUNCTIONAL STATUS: Most recent performance Current Activities of Daily Living Assist Level Additional Information Feeding Set Up Grooming Set Up Bathing Upper Body Set Up Bathing Lower Body Stand By Assistance Dressing Upper Body Set Up Dressing Lower Body Minimal Assistance Toileting Stand By Assistance Instrumental Activities of Daily Living Assist Level Additional Information Meal/Beverage Prep Cleaning Laundry Medication Management with Strategies Functional Mobility Assist Level Additional Information Rolling Supine to Sit Independent Sit to Supine Independent Scooting Independent Sit to Stand Stand By Assistance Stand to Sit Stand By Assistance Bed to Chair Stand By Assistance Stepping Standard Walker Toilet/Commode Shower Functional Mobility Stand By Assistance Standard Walker Blank peterson indicate activity not attempted Activity Tolerance: Standing Activity Standing Activity: grooming Standing Activity Tolerance (in minutes): 3 Learning/Educational Needs: Discharge Plan, Self Care, Safety, Rehabilitation Techniques and Procedures, Precautions, Plan of Care, Functional Activities/Mobility, Family Education/Training, Equipment Goals for Plan of Care: Patient/Caregiver Goals: Reduce ADL/IADL barriers Goals: Patient will demonstrate progress with self-care, cognitive and/or coping needs identified to allow safe discharge to home with available support and/or physical assistance. Rehab Potential: Excellent Patient will be discontinued from Occupational Therapy when no further skilled needs are identified in this setting. PLAN: OT Frequency: Discontinue therapy services Reasons Therapy Services Discontinued: Goals met (more content not included)... [facility] THERAPY NT HNO ID: [id number] Author: Luz Johnson, PT Service: Physical Therapy Author Type: Physical Therapist Type: Therapy (PT/OT/Speech/Resp) Filed: 08/20/2022 11:24 AM Note Text: Physical Therapy Evaluation SERVICE DATE: 08/20/2022 SERVICE TIME: 955 to 1052 ROOM: [place] [address] Recommended Discharge Disposition: Outpatient Physical Therapy Recommended Discharge Disposition Comments: pt reports she already has outpt PT appointment scheduled Anticipated Discharge Needs: Physical Assist at Home Physical Assist at Home for: Cleaning, Laundry, Meals, Stairs, Safety, Self Care, Shopping, Transportation PT 6 Clicks Score: 23 - pt mobilizes with steady gait on level surfaces with own walker and is able to ascend/descend stairs with contact guard and verbal cues. Pt verbalizes correct pattern for stairs and when walking with walker, but is unable to consistently observe. (Additional PT intervention not likely to correct as pt is easily distracted./able to indep recite correct sequence) Cleared for d/c with spouse assist and outpt PT. Precautions/Activity Restrictions: Fall Risk, Total Knee Replacement, Weight Bearing Restrictions Extremity With Weight Bearing Restricted: Right Lower Extremity Right Lower Extremity Weight Bearing Status: WBAT Current Hospital Course: s/p R TKA Dr. Combs (previously uni knee R) Reason for Hospital Admission: uni knee revision to TKA Relevant Past Medical History: R uni knee, L TKA, HTN, IBS, OA, obesity, RLS Response to Therapy Interventions: Good participation in activities, On-track to achieve discharge goals, Pain Continue skilled needs due to: Functional mobility/skill impairments Physical Therapy Problem List: Pain, Edema, Safety Deficits, Impaired Self Care, Decreased Activity Tolerance, Decreased Range Of Motion, Decreased Strength, Balance Impaired, Functional Mobility Impairment, Sensory Deficit, Decreased Skin Integrity Treatment Interventions: Education, Joint Mobility, Self Care / Home Management, Strengthening, Functional Mobility Training Home Environment Entry To Home: Stairs, With Rail Laundry: 10 steps down Equipment Owned: Elevated Toilet Seat, Commode- Raised, Cane, Walker- Standard Prior Functional Level: Within Functional Limits Prior Functional Level Comments: amb with cane (at times) in house and community, still working (on feet), indep with ADLs and iADLs Patient Report: I have restless leg syndrome and I didn't sleep very good last night CURRENT FUNCTIONAL STATUS: Most recent performance Current Functional Mobility Assist Level Additional Information Rolling Supine to Sit Modified Independent Sit to Supine Modified Independent Scooting Modified Independent Sit to Stand Supervision Stand to Sit Supervision Bed to Chair Supervision Bed To Chair Transfer Type: Stepping Bed To Chair Transfer Equipment: Standard Walker Toilet/Commode Gait Verbal Cues Only (repeated verbal cues for proper sequencing. Pt able to verbalize/recall proper sequence, but when distracted, pt resorts to walker, left leg, right leg pattern.) Gait Device: Standard Walker Gait Distance (feet): 75' x 2 Stairs Contact Guard Assistance Stairs Device: Cane, Rail (2 rails, then cane/rail) Number of Stairs: 8 (4 steps x 2 trials) Curb Step Stand By Assistance (with verbal cues - pt able to recite proper sequence, but has difficulty following correct pattern.) Device: Walker Car Transfer Blank peterson indicate activity not attempted General Deviations/Observations: Celine decreased, Step length decreased (step to gait pattern, steady, no knee buckling/instability noted. Pt able to verbally recall proper sequencing, but has difficulty consistently mobilizing with proper gait pattern.) -HLM: 7: Walk 25 feet or more Learning/Educational Needs: Discharge Plan, Equipment, Functional Activities/Mobility, Plan of Care, Changes in Plan of Care, Precautions, Rehabilitation Techniques and Procedures, Safety Goals for Plan of Care: Patient /Caregiver Goals: Walk, Go Home, Care For Self Goals: Patient will demonstrate progress with functional mobility to allow safe discharge to home with available support and/or physical assistance. Rehab Potential: Good Patient will be discontinued from Physical Therapy when no further skilled needs are identified in this setting. PLAN: PT Frequency: PRN (as needed) Plan of Care developed with: Patient TREATMENT INTERVENTIONS: Therapy Diagnosis: Reduced mobility-other, Decreased activities of daily living (ADL), Muscle Weakness (generalized), Abnormalities of gait and mobility-other, Difficulty walking-musculoskeletal Interventions Provided: Evaluation, Therapeutic Exercise (08034), Gait Training (68741) $ Evaluation-Low (98055) Billed Units: 1 unit Therapeutic Exercise (17445) Treatment Minutes: 15 $ Therapeutic Exercise (94139) Billed Units: 1 unit Review of written HEP for TKA (more content not included)... [facility] ANES POSTPROC EVALon 023 ANES POSTPROC EVAL HNO ID: [id number] Author: Guerline Botello MD Service: Anesthesiology Author Type: Anesthesiologist Type: Anesthesia Postprocedure Evaluation Filed: 08/19/2022 2:48 PM Note Text: POST ANESTHESIA EVALUATION NOTE : 1960 Procedure Summary Date: 08/19/22 Room / Location: OR04 / AV OR Anesthesia Start: 1047 Anesthesia Stop: 1355 Procedure: REVISION JOINT TOTAL KNEE FEMORAL AND ENTIRE TIBIAL COMPONENT LORETTA (Right: Knee) Diagnosis: S/P right unicompartmental knee replacement Primary osteoarthritis of right knee (S/P right unicompartmental knee replacement [Z96.651]) (Primary osteoarthritis of right knee [M17.11]) Surgeons: Violet Combs MD Responsible Provider: Guerline Botello MD Anesthesia Type: spinal, regional ASA Status: 3 Anesthesia Type: spinal, regional Last Vitals Vitals Value Taken Time BP 148/63 08/19/22 1440 Temp 36.2 ?C (97.1 ?F) 08/19/22 1400 Pulse 77 08/19/22 1448 Resp 23 08/19/22 1448 SpO2 94 % 08/19/22 1448 Vitals shown include unvalidated device data. Post Anesthesia Patient Status Patient Evaluation: PACU. Neurological Status: aware and responsive. Pulmonary Status: breathing comfortably on room air Airway Control: returned to baseline unsupported. Cardiovascular Status: stable. Pain Management: clinically adequate Postoperative Hydration: acceptable. Intraoperative Events: no significant anesthesia events Post Operative Nausea/Vomiting Status: no significant post operative nausea or vomiting Recommendation: continue current plan of care. Anesthesia Observations No Documentation SIGNATURE: GUERLINE BOTELLO MD PATIENT NAME: Virgilio Johnson DATE: August 19, 2022 TIME: 2:48 PM CSN: [id number] [facility] ANES PRE-OPon 08-19-2022 ANES PRE-OP HNO ID: [id number] Author: Guerline Botello MD Service: Anesthesiology Author Type: Anesthesiologist Type: Anesthesia Preprocedure Evaluation Filed: 08/19/2022 10:18 AM Note Text: ANESTHESIOLOGY DAY OF SURGERY NOTE : 1960 Procedure Information Date/Time: 08/19/22 1028 Procedure: REVISION JOINT TOTAL KNEE FEMORAL AND ENTIRE TIBIAL COMPONENT LORETTA (Right: Knee) Location: AV OR04 / AV OR Surgeons: Violte Combs MD Estimated body mass index is 38.62 kg/m? as calculated from the following: Height as of 08/05/22: 172.7 cm (5' 8 ). Weight as of 08/05/22: 115.2 kg (254 lb). Most recent hematocrit and potassium results: Hematocrit 35.2 08/05/2022 Potassium 4.2 08/05/2022 Relevant Problems CARDIO (+) Aortic valve stenosis (+) HTN (hypertension) ENDO (+) Hypothyroidism Other (+) Patellofemoral arthritis of right knee CBC with diff: WBC 5.93 08/05/2022 RBC 4.02 08/05/2022 Hemoglobin 11.6 08/05/2022 Hematocrit 35.2 08/05/2022 MCV 87.6 08/05/2022 MCH 28.9 08/05/2022 MCHC 33.0 08/05/2022 RDW-CV 13.6 08/05/2022 Platelet Count 265 08/05/2022 MPV 10.2 08/05/2022 Neut% 59.4 12/09/2021 Lymph% 29.7 12/09/2021 Waldo% 8.1 12/09/2021 Eosin% 2.8 01/08/2020 Baso% 0.3 12/09/2021 Abs Neut (ANC) 4.01 12/09/2021 Abs Waldo 0.55 12/09/2021 Abs Eosin 0.15 12/09/2021 Abs Baso <0.03 12/09/2021 I - PHYSICAL EVALUATION AIRWAY Patient intubated: No. Tracheostomy tube not present Mallampati: II. TM distance: >3 FB. Neck ROM: full ROM without neurological symptoms. Mouth opening: adequate. Short neck: no. Thick neck: no DENTAL Normal dental observations. Dental findings: teeth intact. II - ANESTHESIA PLAN ASA Score: 3 Anesthetic Plan: spinal and regional NPO Status: adequate Anesthetic plan additional comments: (pre op adductor canal block) + MAC Sedation TAVR in March for severe . . Beta Radha Monitoring Plan Monitoring plan: Standard ASA. Post Procedure Analgesic Plan Postoperative analgesic plan: parenteral or oral opioids, multimodal analgesia and peripheral nerve block. Informed Consent Anesthetic risks, benefits, alternatives, personnel and consent discussed: yes. Patient / Responsible Green Party agrees to proceed: yes Patient / Surrogate agrees to blood products: yes DNR status not reviewed with patient and/or family prior to surgery. Significant changes in the patient condition since the History and Physical, not otherwise documented in primary service progress note: no. Potential Anesthesia issues that may suggest increased risk of complications or contraindication to planned procedure: none. No vitals data found for the desired time range. Facility-Administered Medications as of 08/19/2022 Medication Dose Route Frequency - acetaminophen 1,000 mg tab(s) (TYLENOL) 1,000 mg ORAL Pre-Op Once - meloxicam 7.5 mg tab(s) (MOBIC) 7.5 mg ORAL Pre-Op Once - lidocaine (PF) 10 mg/mL (1 %) 1-2 mg injection (XYLOCAINE) 0.1-0.2 mL INTRADERMAL PRN - lactated ringers iv infusion 5-30 mL/hr INTRAVENOUS CONTINUOUS - NaCl 0.9% iv flush bag 20 mL INTRAVENOUS PRN - ceFAZolin iv piggyback 2 g in D5W (iso-osmotic) 100 mL (ANCEF) 2 g INTRAVENOUS Pre-Op Once - tranexamic acid (CYKLOKAPRON) in NaCl 0.7% 1,000 mg 100 mL 1,000 mg INTRAVENOUS Pre-Op Once - tranexamic acid (CYKLOKAPRON) in NaCl 0.7% 1,000 mg 100 mL 1,000 mg INTRAVENOUS ONCE - dexAMETHasone sodium phosphate (PF) 8 mg injection (DECADRON) 8 mg INTRAVENOUS Pre-Op Once - promethazine 12.5 mg tab(s) (PHENERGAN) 12.5 mg ORAL Pre-Op Once Outpatient Medications as of 08/19/2022 Medication Sig - amLODIPine (NORVASC) 5 mg tablet Take 5 mg by mouth once daily. - clindamycin (CLEOCIN HCL) 300 mg capsule TWO TABS ONE HOUR PRIOR TO DENTAL PROCEDURE AND TWO TABS SIX HOURS AFTER THE DENTAL PROCEDURE - acetaminophen (TYLENOL) 500 mg tablet Take 2 tablets by mouth every 8 hours. - docusate sodium (COLACE) 100 mg capsule Take 1 capsule by mouth twice daily as needed for Constipation. - meloxicam (MOBIC) 15 mg tablet Take 1 tablet by mouth once daily. with food - rOPINIRole (REQUIP) 0.25 mg tablet Take 1 tablet by mouth three times daily. - gabapentin (NEURONTIN) 100 mg capsule Take 1 capsule by mouth twice daily for 30 days. - atorvastatin (LIPITOR) 10 mg tablet TK 1 T PO QD - dicyclomine 20 mg tablet Take 20 mg by mouth twice daily. I have interviewed and examined the patient. I have reviewed the medical record and/or the pre-anesthesia evaluation, pertinent labs, and test results. This contains updated information obtained within 48 hours of Surgery/Procedure. SIGNATURE: GUERLINE BOTELLO MD PATIENT NAME: Virgilio Johnson DATE: August 19, 2022 TIME: 8:52 AM CSN: [id number] [facility] CONSULTon 08-19-2022 CONSULT HNO ID: [id number] Author: Arlin Kwok APRN.PRINCIPAL WEB DEVELOPER Service: Hospital Medicine Author Type: Nurse Practitioner Type: Consults Filed: 08/19/2022 8:51 PM Note Text: DEPARTMENT OF HOSPITAL MEDICINE INITIAL CONSULT SERVICE DATE: 08/19/2022 SERVICE TIME: 8:38 PM Primary Care Physician: Oswaldo Grewal MD NIGHT AND WEEKEND COVERAGE: [place] COVERAGE: : , please contact via [employer] Nights: - floor: please page Hospitalist night cover [phone] - 4th floor: please page Hospitalist night cover [phone] - 5th floor: please page Hospitalist night cover [phone] REASON FOR CONSULT: Medical management REQUESTING PHYSICIAN: Lucas AHN Subjective CHIEF COMPLAINT: Status post right total knee replacement HPI: This is a 62 year old female who presents following elective right total knee replacement. Patient has past medical history of osteoarthritis, hypertension, hyperlipidemia, aortic valve stenosis, hypothyroidism, irritable bowel syndrome, and restless leg syndrome. Patient seen at bedside. Patient appears to be significantly uncomfortable having pain related to her restless leg syndrome. Further review of records as well as discussion with patient patient takes Requip point 5 in the AM 0.25 at lunch 2.25 at dinner and 0.5 at at bedtime. Patient also takes gabapentin 200 mg p.o. twice daily. Per PDMP as well as recent prescription fills this does appear to be appropriate. Patient complains of restless leg syndrome, pain severe, no aggravating or alleviating factors. Estimates provider if she could sit up on the side of the bed. Is the Patient Experiencing Pain: Yes: PAIN CHARACTER: Burning/aching pain from restless leg syndrome. PAST MEDICAL HISTORY Diagnosis Date HLD (hyperlipidemia) HTN (hypertension) IBS (irritable bowel syndrome) OA (osteoarthritis) of knee Obesity RLS (restless legs syndrome) PAST SURGICAL HISTORY Procedure Laterality Date ARTHROSCOPY KNEE DIAGNOSTIC W/WO SYNOVIAL BX SPX right knee Arthroscopy, knee ARTHRP KNE CONDYLEANDPLATU MEDIALANDLAT COMPARTMENTS Right 2012 partial UCKR COLONOSCOPY SCREENING EYE SURGERY HX PAST SURGICAL HISTORY OF 03/18/2022 History of Aortic valve replacement PAST SURGICAL HISTORY OF lasik surgery PAST SURGICAL HISTORY OF Laser gonioplasty PAST SURGICAL HISTORY OF Left 05/2022 thyroidectomy FAMILY HISTORY Problem Relation Age of Onset Heart disease Mother Heart disease Father Social History Tobacco Use Smoking status: Never Smokeless tobacco: Never Vaping Use Vaping Use: Never used Substance Use Topics Alcohol use: No Drug use: Never MEDICATIONS: Reviewed levothyroxine (SYNTHROID) 100 mcg tablet, TAKE 1 TABLET BY MOUTH EVERY DAY IN THE MORNING ON AN EMPTY STOMACH, Disp: , Rfl: , 08/19/2022 tiZANidine (ZANAFLEX) 4 mg tablet, Take 2-4 mg by mouth daily at bedtime., Disp: , Rfl: , Past Week valsartan (DIOVAN) 320 mg tablet, Take 320 mg by mouth once daily., Disp: , Rfl: , 08/18/2022 amLODIPine (NORVASC) 5 mg tablet, Take 5 mg by mouth once daily., Disp: , Rfl: , 08/19/2022 rOPINIRole (REQUIP) 0.25 mg tablet, Take 1 tablet by mouth three times daily. (Patient taking differently: Take 0.25 mg by mouth three times daily. takes 2 in am , 1 with lunch, 1 with dinner and 2 @ HS), Disp: , Rfl: , 08/18/2022 gabapentin (NEURONTIN) 100 mg capsule, Take 1 capsule by mouth twice daily for 30 days. (Patient taking differently: Take 200 mg by mouth twice daily.), Disp: 60 capsule, Rfl: 0, 08/19/2022 atorvastatin (LIPITOR) 10 mg tablet, TK 1 T PO QD, Disp: , Rfl: 5, 08/18/2022 dicyclomine 20 mg tablet, Take 20 mg by mouth twice daily., Disp: , Rfl: , 08/18/2022 terbinafine HCl (LAMISIL) 250 mg tablet, , Disp: , Rfl: mupirocin (BACTROBAN) 2 % ointment, Apply 0.5 inch with cotton swab (Q-tip) to each nostril in the morning and evening for 5 days prior to and including day of surgery., Disp: 22 g, Rfl: 0 clindamycin (CLEOCIN HCL) 300 mg capsule, TWO TABS ONE HOUR PRIOR TO DENTAL PROCEDURE AND TWO TABS SIX HOURS AFTER THE DENTAL PROCEDURE, Disp: 4 capsule, Rfl: 1, Unknown acetaminophen (TYLENOL) 500 mg tablet, Take 2 tablets by mouth every 8 hours., Disp: , Rfl: docusate sodium (COLACE) 100 mg capsule, Take 1 capsule by mouth twice daily as needed for Constipation., Disp: 60 capsule, Rfl: 0 meloxicam (MOBIC) 15 mg tablet, Take 1 tablet by mouth once daily. with food, Disp: 30 tablet, Rfl: 1 Current Facility-Administered Medications Medication Dose Route Frequency dicyclomine 20 mg tab(s) (BENTYL) 20 mg ORAL BID atorvastatin 10 mg tab(s) (LIPITOR) 10 mg ORAL AT BEDTIME valsartan 320 mg tab(s) (DIOVAN) 320 mg ORAL DAILY [START ON 08/20/2022] amLODIPine 5 mg tab(s) (NORVASC) 5 mg ORAL DAILY tiZANidine 2-4 mg tab(s) (ZANAFLEX) 2-4 mg ORAL AT BEDTIME [START ON 08/20/2022] levothyroxine 100 mcg tab(s) (SYNTHROID) 100 mcg ORAL DAILY (6 AM) [START ON (more content not included)... [facility] NURSING PROGon 08-19-2022 NURSING PROG HNO ID: [id number] Author: Chavez Cartagena RN Service: ? Author Type: Registered Nurse Type: Nursing Progress Note Filed: 08/19/2022 2:28 PM Note Text: Continues rocking in bed. Unable to obtain v/s d/t movement. Continues to deny c/o pain. Continues repeating my leg my leg. I need to move it. It won't stop moving . [facility] NURSING PROG HNO ID: [id number] Author: Chavez Cartagena RN Service: ? Author Type: Registered Nurse Type: Nursing Progress Note Filed: 08/19/2022 2:18 PM Note Text: Pt to room. Restless and thrashing in bed. Anesthesia at bedside. Side rails padded. Pt wants to lay on side. Denies c/o pain. Pt sobbing. Rocking back and forth. Continously states my leg, my leg. I can't lay in this position. Medicated with ativan 2mg at 1406 with no effect. [facility] OPERATIVE NOon 08-19-2022 OPERATIVE NO HNO ID: [id number] Author: Violet Combs MD Service: Orthopaedic Surgery Author Type: Physician Type: Operative Report Filed: 08/19/2022 1:26 PM Note Text: [facility] OPERATIVE REPORT PATIENT NAME: Virgilio Johnson AGE: [age] year old LOG ID: [id number] Surgery Date: 08/19/2022 SURGEON: Violet Combs MD HUMIDIFIER ATTENDANT: Lucas Levy PA-C, SA, her assistance consisted of assistance with retraction, positioning and closing of the wound No resident physicians were available to participate in the case. PROCEDURE:RIGHT TOTAL KNEE REPLACEMENT-POSTERIOR STABILIZED Anesthesia: Choice - Anesthesia Consult Preop Diagnosis: Pre-Op Diagnosis Codes: * S/P right unicompartmental knee replacement [Z96.651] * Primary osteoarthritis of right knee [M17.11] Progressive Arthritis Medial and Patellofemoral Compartments Rt. knee Postop Diagnosis: Same as Pre-Op Diagnosis Codes: * S/P right unicompartmental knee replacement [Z96.651] * Primary osteoarthritis of right knee [M17.11] Same BMI: Estimated body mass index is 38.63 kg/m? as calculated from the following: Height as of this encounter: 172.7 cm (5' 7.99 ). Weight as of this encounter: 115.2 kg (254 lb). INDICATIONS: This is a 62 year old year old female with remote Lateral Compartment Partial knee replacement 15 years ago developed osteoarthritis of the medial and patella compartments of the right knee.She was having severe pain globally in the right knee. Nonoperative management with anti-inflammatory and analgesic medication, cortisone and lubricant injections, activity modification, use of ambulatory aides and physical therapy has been exhausted. The pain has started to interfere with activities of daily living. The decision was made to proceed with a revision total knee arthroplasty. Risks, benefits, and alternatives were discussed. She expressed understanding and consented to the procedure as outlined above. The patient was seen by [facility] Medicine for pre-operative optimization. Iris-operative blood management and the potential for blood transfusion were discussed with risks and options clearly outlined. The patient has consented to the use of banked allogenic blood if medically necessary. IMPLANTS: [employer] Total Knee System SIZE TYPE Posterior Stabilized Femur 5 standard / narrow [place] / Triathalon Tibia 5 Loretta Patella 33 mm Loretta Polyethylene 11mm TS Loretta OPERATIVE FINDINGS: There was complete loss of cartilaginous surface from the patellofemoral, medial compartments of the right knee. OPERATIVE PROCEDURE: The patient was identified and brought into the Operating Room by the anesthesia and nursing team. Anesthesia was successfully performed. The patient was then positioned supine on the operating room table. Intravenous antibiotic prophylaxis dosing was confirmed. The right lower extremity was then prepped and draped in the usual sterile fashion with Chloraprep scrub. Tranexamic acid was given prior to incision and again at the time of closure for blood conservation. A surgical time-out was performed immediately preceding the incision with all personnel in the operating room; the patient identity was again confirmed, the surgical site and extremity were identified and confirmed, X-rays were reviewed, and availability of the appropriate surgical equipment was established. The knee was approached through a 5 inch midline incision. Dissection was carried down. The extensor mechanism was opened in modified median parapatellar fashion. The kneecap was identified and everted. We debrided circumferentially about the kneecap removing the synovium and releasing laterally. We then osteotomized the undersurface of the patella and utilized a 33 mm patellar button, which was medialized for better patellar tracking. A partial lateral facetectomy was also accomplished. Attention was then turned to the knee and a total synovectomy was accomplished. We then removed osteophytes circumferentially about the medial and lateral femoral condyle. The knee was flexed to 90 degrees and an intramedullary guide was inserted, which allowed us then to cut the distal femur at 4-5 degrees from the long axis of the femur. We then brought the knee into extension and osteotomized the proximal tibia parallel to the distal femoral cut. With this accomplished, we then debrided the area and removed the remains of the medial meniscus and the posterior horn of the medial meniscus and remains of the cruciate ligaments and the lateral meniscus. We then put in our FuAlephDon ligament testing gauge, which showed that the extension gap was in neutral valgus-varus position. We flexed the knee to 90 degrees and inserted the tensionmeter. We measured the femur prosthetic size as a 5 loretta. We marked our 2 drill holes for the chamfer cuts. We then put a size [address] (more content not included)... [facility] SARS-CoV-2 RNA Resp Ql ISIDORO+p robeon 08-19-2022 SARS-CoV-2 (COVID-19) RNA ISIDORO+probe Ql (Resp) COVID 19 RESULT: Not detected The method used is RT-PCR or an equivalent NAAT method. Reference Range(the expected result in uninfected individuals): Not detected [facility] Comment on above: Performed By: #### 9 [id number] ####[facility] [id number] [facility].[address] OF [facility] SURGICAL PATHOLOGYon 023 CASE REPORT [facility] Comment on above: Order Comment: Speci men Type: DEVICE SPECIMENOrdering Facility: [facility] Address: [address] [place] [id number] Result Comment: [facility] Pathology Report Case: [id number] Authorizing Provider: Violet Combs MD Collected: 08/19/2022 01:42 PM Ordering Location: [facility] Surgery Received: 08/19/2022 02:18 PM Pathologist: Abhishek Bey MD, PhD Specimen: HARDWARE, right knee hardware for gross Performed By: #### S ####[facility] LABCLIA [id number] [address] CLINICAL HISTORY [facility] Comment on above: Order Comment: Speci men Type: DEVICE SPECIMENOrdering Facility: [facility] Address: [address] [place] [address] Result Comment: Pre- op diagnosis: S/P right unicompartmental knee replacement [Z96.651] Primary osteoarthritis of right knee [M17.11] Performed By: #### S ####[facility] LABCLIA [id number] [address] FINAL DIAGNOSIS [facility] Comment on above: Order Comment: Speci men Type: DEVICE SPECIMENOrdering Facility: [facility] Address: [address] [place] [address] Result Comment: A. R ight knee, orthopedic hardware, removal: - Surgical hardware, for gross examination only. VIDHYA/FROYLAN 08/20/22 1:33 PM Performed By: #### S ####[facility] LABCLIA [id number] [address] FINAL PERFORMING LAB [facility] Comment on above: Order Comment: Speci men Type: DEVICE SPECIMENOrdering Facility: [facility] Address: [address] [place], [place] [id number] Result Comment: Diag nostic interpretation performed at [facility], [address] [address] CLIA# [id number] Consultant Electronics: Floyd Barbour M.D. Performed By: #### S ####[facility] LABCLIA [id number] [address] GROSS DESCRIPTION A. HARDWARE [facility] Comment on above: Order Comment: Speci men Type: DEVICE SPECIMENOrdering Facility: [facility] Address: [address] [place] [address] Result Comment: Rece ived fresh, labeled right knee hardware for gross are components of a knee arthroplasty, consisting of a stewart metallic femoral component, with a scant amount of adherent bone cement and no visible inscriptions. Also received in the container is a stewart metallic tibial component with an adherent polyethylene spacer, with moderate signs of wear, to include peripheral fragmentation and fragmentation of the articulating aspect. A moderate amount of bone cement is present. Inscriptions are not grossly identified. The specimen is for gross examination only. The specimen is reviewed with Dr. Bey. FROYLAN August 20, 2022 1:32 PM Gross examination performed at [facility], [address] [place] [address] Performed By: #### S ####[facility] LABCLIA [id number] [facility] [id number] THERAPY NTon 08-19-2022 THERAPY NT HNO ID: [id number] Author: Luz Johnson PT Service: Physical Therapy Author Type: Physical Therapist Type: Therapy (PT/OT/Speech/Resp) Filed: 08/19/2022 5:22 PM Note Text: PHYSICAL THERAPY MISSED VISIT SERVICE DATE: 08/19/2022 SERVICE TIME: 1627- 1635 ROOM: [place] [address] Patient not seen due to Sleeping -pt too drowsy to participate. Briefly wakes up to stimulation, but falls back to sleep/snoring loudly. RN aware/notified. Will re-attempt in AM when pt able to actively participate in therapy session. SIGNATURE: Luz Johnson PT PATIENT NAME: Virgilio Johnson DATE: August 19, 2022 TIME: 5:20 PM [facility] XR KNEE 2V AP/LAT RTon 08-19 XR KNEE 2V AP/LAT RT * * *Final Report* * * DATE OF EXAM: Aug 19 2022 2:52PM VHX [id number] - XR KNEE 2V AP/LAT RT / PROCEDURE REASON: Post-operative / post-procedure assessment, asymptomatic * * * * Physician Interpretation * * * * EXAMINATION: XR KNEE 2V AP/LAT RT Clinical history: Post-operative / post-procedure assessment, asymptomatic RIGHT KNEE POST OP RESULT: Comparison is made to May 2022 Demonstration of a semiconstrained right total knee arthroplasty, with cemented tibial component and patellar resurfacing. No periprosthetic fracture or abnormal lucency. IMPRESSION: Normal appearance and alignment of total knee arthroplasty Agency Manager: PSCBasim Transcribe Date/Time: Aug 20 2022 9:52A Dictated by : QI LEMA MD This examination was interpreted and the report reviewed and electronically signed by: QI LEMA MD on Aug 20 2022 9:52AM EST [id number] [facility] Basic metabolic 2000 panelon 08-05-2022 Anion gap [Moles/Vol] 10 mmol/L 9 - 18 mmol/L [facility] Calcium [Mass/Vol] 9.6 mg/dL 8.5 - 10. 2 mg/dL [facility] Chloride [Moles/Vol] 106 mmol/L High 97 - 10 5 mmol/L [facility] CO2 [Moles/Vol] 25 mmol/L 22 - 30 mmol/L [facility] Creatinine [Mass/Vol] 0.89 mg/dL 0.58 - 0.96 mg/dL [facility] Estimated Glomerular Filtration Rate 74 mL/min/1.73m >=60 mL/min/1.7 3m [facility] Glucose [Mass/Vol] 106 mg/dL High 74 - 99 mg/dL [facility] Potassium [Moles/Vol] 4.2 mmol/L 3.7 - 5.1 mmol/L [facility] Sodium [Moles/Vol] 141 mmol/L 136 - 144 mmol/L [facility] Urea nitrogen [Mass/Vol] 20 mg/dL 7 - 21 mg/dL [facility] CBC panel Auto (Bld)on 08-05 Erythrocyte distribution width (RBC) [Ratio] 13.6 % 11.5 - 15.0 % [facility] Hematocrit (Bld) [Volume fraction] 35.2 % Low 36.0 - 46.0 % [facility] Hemoglobin (Bld) [Mass/Vol] 11.6 g/dL 11.5 - 15.5 g/dL [facility] MCH (RBC) [Entitic mass] 28.9 pg 26.0 - 34.0 pg [facility] MCHC (RBC) [Mass/Vol] 33.0 g/dL 30.5 - 36.0 g/dL [facility] MCV (RBC) [Entitic vol] 87.6 fL 80.0 - 100.0 fL [facility] Nucleated RBC (Bld) [#/Vol] <0.01 k/uL [facility] Platelet mean volume (Bld) [Entitic vol] 10.2 fL 9.0 - 12.7 fL [facility] Platelets (Bld) [#/Vol] 265 10*3/uL 150 - 400 k/uL [facility] RBC (Bld) [#/Vol] 4.02 10*6/uL 3.90 - 5.20 m/uL [facility] WBC (Bld) [#/Vol] 5.93 10*3/uL 3.70 - 11.00 k/uL [facility] FERRITIN BLDon 08-05-2022 Ferritin [Mass/Vol] 194.0 ng/mL 14.7 - 205.1 ng/mL [facility] Iron and Iron binding capaci ty panelon 08-05-2022 Iron [Mass/Vol] 57 ug/dL 41 - 186 ug/dL [facility] Iron binding capacity [Mass/Vol] 298 ug/dL 232 - 386 ug/dL [facility] Iron/TIBC [Molar ratio] 19.1 % 15.0 - 57.0 % [facility] STAPH AUREUS PCRon S. aureus and MRSA panel ISIDORO+probe (Nose) Positive Abnormal Negative [facility] S. aureus and MRSA panel ISIDORO+probe (Nose) Negative Negative [facility] Basic Metabolic Panelon 06-17 Anion gap [Moles/Vol] 19.3 mmol/L High 6.0-15.0 [facility] Comment on above: Order Comment: PT IS NON FASTING Performed By: #### B MP #### [address] Calcium [Mass/Vol] 9.2 mg/dL Normal 8.2-10.2 [facility] Comment on above: Order Comment: PT IS NON FASTING Result Comment: PERF ORMED BY: [place] [address] PATHOLOGIST 3RD PRESSMAN DORA ALLISON M.D. Performed By: #### B MP #### [address] Chloride [Moles/Vol] 104 mmol/L Normal 95-114 [facility] Comment on above: Order Comment: PT IS NON FASTING Performed By: #### B MP #### [address] CO2 [Moles/Vol] 20.1 mmol/L Low 22.0-30.0 [facility] Comment on above: Order Comment: PT IS NON FASTING Performed By: #### B MP #### [address] Creatinine [Mass/Vol] 1.09 mg/dL High 0.44-1.03 [facility] Comment on above: Order Comment: PT IS NON FASTING Performed By: #### B MP #### [address] Estimated GFR ( Jose J > 60 [facility] Comment on above: Order Comment: PT IS NON FASTING Result Comment: GFR estimated reference range: According to KDOQI guidelines, <60 ml/min/1.73m2 is sufficient to diagnose a patient with chronic kidney disease. Performed By: #### B MP #### [address] Estimated GFR (Non- Am 51 [facility] Comment on above: Order Comment: PT IS NON FASTING Performed By: #### B MP #### [address] Glucose [Mass/Vol] 154 mg/dL High 70-100 [facility] Comment on above: Order Comment: PT IS NON FASTING Result Comment: [place] Glucose Reference Range is dependent on time and content of last meal. Glucose of more than 200 mg/dL in a nonstressed, ambulatory subject supports the diagnosis of Diabetes Mellitus. ADA recommended reference range Performed By: #### B MP #### [facility] [address] Potassium [Moles/Vol] 4.4 mmol/L Normal 3.5-5.1 [facility] Comment on above: Order Comment: PT IS NON FASTING Performed By: #### B MP #### [facility] [address] Sodium [Moles/Vol] 139 mmol/L Normal 136-146 [facility] Comment on above: Order Comment: PT IS NON FASTING Performed By: #### B MP #### [facility] [address] Urea nitrogen [Mass/Vol] 21 mg/dL Normal 9-23 [facility] Comment on above: Order Comment: PT IS NON FASTING Performed By: #### B MP #### [facility] [address] Creatinine and Glomerular fi ltration rate.predicted panel (S/P/Bld)Ordered By: Noemi Daniels on 06-28-2022 Creatinine [Mass/Vol] 1.09 mg/dL 0.44-1.03 [facility] Estimated glomerular filtrat ion rate (GFR) non- AmericanOrdered By: Noemi Daniels on 06-28-2022 GFR/1.73 sq M.predicted among non-blacks MDRD (S/P/Bld) [Vol rate/Area] 51 mL/Min [facility] No Panel InformationOrdered By: Noemi Daniels on 06-28-2022 Estimated GFR () > 60 mL/Min [facility] Comment on above: GFR estimated refere nce range: According to KDOQI guidelines, <60 ml/min/1.73m2 is sufficient to diagnose a patient with chronic kidney disease. Pharmacy Creatinine Clearance (Chem N/A [facility] Serum or plasma anion gap de terminationOrdered By: Noemi Daniels on 06-28-2022 Anion gap [Moles/Vol] 19.3 mmol/L 6.0-15.0 [facility] Serum or plasma calcium jeane urement (mass/volume)Ordered By: Noemi aDniels on 06-28-2022 Calcium [Mass/Vol] 9.2 mg/dL 8.2-10.2 [facility] Serum or plasma chloride thomas surement (moles/volume)Ordered By: Noemi Daniels on 06-28-2022 Chloride [Moles/Vol] 104 mmol/L 95-114 [facility] Serum or plasma glucose jeane urement (mass/volume)Ordered By: Noemi Daniels on 06-28-2022 Glucose [Mass/Vol] 154 mg/dL 70-100 [facility] Comment on above: ADA recommended refe rence rangeRandom Glucose Reference Range is dependent on time and content of last meal. Glucose of more than 200 mg/dL in a nonstressed, ambulatory subject supports the diagnosis of Diabetes Mellitus. Serum or plasma potassium me asurement (moles/volume)Ordered By: Noemi Daniels on 06-28-2022 Potassium [Moles/Vol] 4.4 mmol/L 3.5-5.1 [facility] Serum or plasma sodium measu rement (moles/volume)Ordered By: Noemi Daniels on 06-28-2022 Sodium [Moles/Vol] 139 mmol/L 136-146 [facility] Serum or plasma total carbon dioxide measurement (moles/volume)Ordered By: Noemi Daniels on 06-28-2022 CO2 [Moles/Vol] 20.1 mmol/L 22.0-30.0 [facility] Serum or plasma urea nitroge n measurement (mass/volume)Ordered By: Noemi Daniels on 06-28-2022 Urea nitrogen [Mass/Vol] 21 mg/dL 9-23 [facility] TSH DL <= 0.005 mIU/L QnOrde red By: Spenser Canchola on 06-28-2022 TSH Qn 12.21 m[IU]/L 0.45-5.33 [facility] Thyroid Stimulating Hormoneo n 06-28-2022 TSH Qn 12.21 m[IU]/L High 0.45-5.33 [facility] Comment on above: Order Comment: PT IS NON FASTING Reason for Exam Substernal goiter Result Comment: PERF ORMED BY: [place] [address] PATHOLOGIST 3RD PRESSMAN DORA ALLISON M.D. Performed By: #### B MP #### [place] [id number] [facility] Glucose Glucometer (BldC) [M ass/Vol]Ordered By: Spenser Canchola on 06-02-2022 Glucose [Mass/Vol] 145 mg/dL [facility] Comment on above: Random Glucose Refer ence Range is dependent on time and content of last meal. Glucose of more than 200 mg/dL in a nonstressed, ambulatory subject supports the diagnosis of Diabetes Mellitus. Glucose Poct Glucometerson 1 08-02-2021 Glucose [Mass/Vol] 145 mg/dL Normal [facility] Comment on above: Result Comment: [place] om Glucose Reference Range is dependent on time and content of last meal. Glucose of more than 200 mg/dL in a nonstressed, ambulatory subject supports the diagnosis of Diabetes Mellitus. PERFORMED BY: [place] [address] PATHOLOGIST 3RD PRESSMAN DORA ALLISON M.D. Performed By: #### B MP #### [place] [id number] [facility] Rikki 06-02-2022 L ---- Specimen: [id number] Received: 06/02/22 Status: CON Cardenas Num: [id number] Spec Type: Surgical Subm Dr: Spenser Canchola,DO Tissues: A THYROID - Lobe (LT SUBSTERNAL THYROID) Procedures: HE/8, Gross/Micro L5 Age/ Patient Sex Location Account Attending Physician Virgilio Johnson 62/F [place] [id number] Spenser Canchola DO SPEC NUM: [id number] RECD: 06/02/22 STATUS: CON OWENSIsabell NUM: [id number] LAURA: 06/02/224 [facility] DR: Spenser Canchola DO ENTERED: 06/02/22 [facility]: MIKEL TYPE: Surgical DEPT: S ORDERED: HE/8, Gross/Micro L5 ORDERED: 8, Gross/Micro L5 Pathological Diagnosis Left substernal thyroid, left thyroidectomy: - Benign adenomatoid nodules. - One benign lymph node. Clinical Information Left substernal goiter Gross Description Received in formalin labeled with the patient's name, number and left substernal thyroid is a 26 g, 5.7 x 4.2 x 3.7 cm unoriented lobe of thyroid which has been previously partially incised. The capsule is smooth to shaggy and yi-stewart. The specimen is inked and sectioned revealing multiple well-circumscribed yi stewart rubbery nodules with focal induration measuring up to 2.5 cm. The remaining cut surface is firm and red brown. Additionally received within the container is a 1.6 x 1.0 x 0.4 cm rubbery yi-red tissue with a smooth to shaggy yi-red capsule. The cut surface is glistening and yi-stewart. Law Secretary sections are submitted in 8 cassettes as follows: B1-B7 - Law Secretary thyroid lobe B8 - Detached tissue in its entirety Specimen: [id number] Received: 06/02/22 Status: CON Cardenas Num: [id number] Spec Type: Surgical Subm Dr: Spenser Canchola DO Tissues: A THYROID - Lobe (LT SUBSTERNAL THYROID) Procedures: HERIBERTO/Ariela, Gross/Micro L5 Patient: Virgilio Johnson [id number] (Continued) Specimen: [id number] Received: 06/02/22 (Continued) Signed (signature on file) Galo Gan MD 06/06/22 1221 Specimen: [id number] Received: 06/02/22 Status: CON Cardenas Num: [id number] Spec Type: Surgical Subm Dr: Spenser Canchola DO Tissues: A THYROID - Lobe (LT SUBSTERNAL THYROID) Procedures: , Gross/Micro L5 Patient: Jaqui Johnsonrafiq Conroy [id number] (Continued) Specimen: [id number] Received: 06/02/22 (Continued) Microscopic Description Eight glass slides with H E stained material have been examined. The microscopic findings support the above pathologic diagnosis. CPT Codes 67078 Specimen: [id number] Received: 06/02/22 Status: CNO Cardenas Num: [id number] Spec Type: Surgical Subm Dr: Spenser Canchola DO Tissues: A THYROID - Lobe (LT SUBSTERNAL THYROID) Procedures: , Gross/Micro L5 Patient: Virgilio Johnson [id number] (Continued) Signed (signature on file) Galo Gan MD 06/06/22 1221 [facility] [place] COVID-19 Antigenon 2 COVID-19 Antigen Healthcare Worker?: N Reference Range: Negative Negative results, from patients with symptom onset beyond five days, should be treated as presumptive and confirmation with a molecular assay, if necessary, for patient management, may be performed. Negative results do not rule out COVID-19 and should not be used as the sole basis for treatment or patient management decisions, including infection control decisions. Negative results should be considered in the context of a patient's recent exposures, history and the presence of clinical signs and symptoms consistent with COVID-19. The Yun SARS Antigen WILBERT does not differentiate between SARS-CoV and SARS-CoV-2. This test was developed and its performance characteristic determined by [facility]velstay and validated at [facility]. This test has not been FDA cleared or approved. This test has been authorized by FDA under an Emergency Use Authorization (EUA). This test has been validated in accordance with the FDA's Guidance Document (Policy for Diagnostics Testing in Laboratories Certified to Perform High Complexity Testing under CLIA prior to Emergency Use Authorization for Coronavirus Disease-2019 during the Public Health Emergency) issued on October 18, 2019. This test is only authorized for the duration of time the declaration that circumstances exist justifying the authorization of the emergency use of in vitro diagnostic tests for detection of SARS-CoV-2 virus and/or diagnosis of COVID-19 infection under section 564(b)(1) of the Act, 21 U.S.C. 360bbb-3(b)(1), unless the authorization is terminated or revoked sooner. SARS-CoV+SARS-CoV-2 (COVID-19) Ag [Presence] in Respiratory specimen by Rapid immunoassay Negative for SARS Antigen by WILBERT PERFORMED BY: [place] [address] PATHOLOGIST 3RD PRESSMAN DORA ALLISON M.D. [facility] [place] Comment on above: Performed By: #### B #### [address] COVID-19 SOFIAOrdered By: Guilherme Canchola on 05-31-2022 SARS-CoV+SARS-CoV-2 (COVID-19) Ag IA.rapid Ql (Resp) Negative Negative [facility] Comment on above: This is a duplicate Yun SARS Antigen (WILBERT) result to be used for statistical tracking purpose only. No Panel InformationOrdered By: Spenser Canchola on 05-31-2022 SARS Antigen (LFIA) [facility] Yun Ag Negativeon 05-31-20 22 Yun Ag Negative Negative Normal Negative [facility] Comment on above: Result Comment: This is a duplicate Yun SARS Antigen (WILBERT) result to be used for statistical tracking purpose only. PERFORMED BY: [place] [address] PATHOLOGIST 3RD PRESSMAN DORA ALLISON M.D. Performed By: #### B #### [address] XR KNEE GENERAL 4V AP BOTH/P A BOTH/LAT/MERC BILATERALon 05-31-2022 [facility] XR Knee - bilateral 4 Viewso n 05-31-2022 IMPRESSION: POSTOPERATIVE AND DEGENERATIVE CHANGES DESCRIBED IN THE RIGHT KNEE. EXPECTED POSTSURGICAL APPEARANCE OF THE LEFT KNEE. Agency Manager: TRINITY Transcribe Date/Time: May 31 2022 12:13P Dictated by : RACHEAL BENITEZ MD This examination was interpreted and the report reviewed and electronically signed by: RACHEAL BENITEZ MD on May 31 2022 12:14PM [facility] DIVISION OF RADIOLOGY * * *Final Report* * * DATE OF EXAM: May 31 2022 11:48AM LZX 5618 - XR KNEE 4V AP/PA/LAT/MERCH CAMPOS / PROCEDURE REASON: multiple diagnoses * * * * Physician Interpretation * * * * HISTORY (as given from clinical provider): S/P right unicompartmental knee replacement Primary osteoarthritis of right knee . Additional history provided by the performing technologist (if any): campos knee pain TECHNIQUE: XR KNEE 4V AP/PA/LAT/MERCH CAMPOS COMPARISON: 12/09/2021 RESULT: Right: Status post lateral unicondylar knee arthroplasty. Normal postoperative appearance. Severe medial and patellofemoral compartment osteoarthritis. Left: Status post total knee arthroplasty. No evidence of implant failure. No other significant abnormality. DIVISION OF RADIOLOGY Provider, Agueda Portillo - 05/31/2022 * * *Final Report* * * DATE OF EXAM: May 31 2022 11:48AM LZX 5618 - XR KNEE 4V AP/PA/LAT/MERCH CAMPOS / PROCEDURE REASON: multiple diagnoses * * * * Physician Interpretation * * * * HISTORY (as given from clinical provider): S/P right unicompartmental knee replacement Primary osteoarthritis of right knee . Additional history provided by the performing technologist (if any): campos knee pain TECHNIQUE: XR KNEE 4V AP/PA/LAT/MERCH CAMPOS COMPARISON: 12/09/2021 RESULT: Right: Status post lateral unicondylar knee arthroplasty. Normal postoperative appearance. Severe medial and patellofemoral compartment osteoarthritis. Left: Status post total knee arthroplasty. No evidence of implant failure. No other significant abnormality. IMPRESSION IMPRESSION: POSTOPERATIVE AND DEGENERATIVE CHANGES DESCRIBED IN THE RIGHT KNEE. EXPECTED POSTSURGICAL APPEARANCE OF THE LEFT KNEE. Agency Manager: TRINITY Transcribe Date/Time: May 31 2022 12:13P Dictated by : RACHEAL BENITEZ MD This examination was interpreted and the report reviewed and electronically signed by: RACHEAL BENITEZ MD on May 31 2022 12:14PM [facility] Radiology Study observation (narrative) [facility] XR Knee - bilateral 4 ViewsO rdered By: Ccf Provider on 05-31-2022 [facility] Basic Metabolic Panelon 11-0 Anion gap [Moles/Vol] 15.4 mmol/L High 6.0-15.0 [facility] Comment on above: Performed By: #### C OVID-19 YUN, SOFIANEG #### [facility] [address] [place] [address] [place] Calcium [Mass/Vol] 9.5 mg/dL Normal 8.2-10.2 [facility] Comment on above: Performed By: #### C OVID-19 YUN, SOFIANEG #### [facility] [address] [place] [id number] [place] Chloride [Moles/Vol] 104 mmol/L Normal 95-114 [facility] Comment on above: Performed By: #### C OVID-19 YUN, SOFIANEG #### [facility] [address] [place] [address] [place] CO2 [Moles/Vol] 23.0 mmol/L Normal 22.0-30.0 [facility] Comment on above: Performed By: #### C OVID-19 YUN, SOFIANEG #### [facility] [address] [place] [address] [place] Creatinine [Mass/Vol] 0.99 mg/dL Normal 0.44-1.03 [facility] Comment on above: Performed By: #### C OVID-19 YUN, SOFIANEG #### [facility] [address] Estimated GFR ( Jose J > 60 [facility] Comment on above: Result Comment: GFR estimated reference range: According to KDOQI guidelines, <60 ml/min/1.73m2 is sufficient to diagnose a patient with chronic kidney disease. Performed By: #### C OVID-19 YUN, SOFIANEG #### [facility] [address] [place] [address] [place] Estimated GFR (Non- Am 57 [facility] Comment on above: Performed By: #### C OVID-19 YUN, SOFIANEG #### [facility] [address] Glucose [Mass/Vol] 90 mg/dL Normal 70-100 [facility] Comment on above: Result Comment: [place] Glucose Reference Range is dependent on time and content of last meal. Glucose of more than 200 mg/dL in a nonstressed, ambulatory subject supports the diagnosis of Diabetes Mellitus. ADA recommended reference range Performed By: #### C OVID-19 YUN, SOFIANEG #### [facility] [address] [place] [address] [place] Potassium [Moles/Vol] 4.4 mmol/L Normal 3.5-5.1 [facility] Comment on above: Performed By: #### C OVID-19 YUN, SOFIANEG #### [facility] [address] Sodium [Moles/Vol] 138 mmol/L Normal 136-146 [facility] Comment on above: Performed By: #### C OVID-19 YUN, SOFIANEG #### [facility] [address] Urea nitrogen [Mass/Vol] 18 mg/dL Normal 9-23 [facility] Comment on above: Performed By: #### C OVID-19 YUN, SOFIANEG #### [facility] [address] [place] [address] [place] Basophils Auto (Bld) [#/Vol] Ordered By: Spenser Canchola on 05-19-2022 Basophils (Bld) [#/Vol] 0.0 10*3/uL 0.0-0.2 [facility] Basophils/100 WBC Auto (Bld) Ordered By: Spenser Canchola on 05-19-2022 Basophils/100 WBC (Bld) 0.4 % . [facility] Complete Blood Count Auto Di ffon 05-19-2022 Basophils (Bld) [#/Vol] 0.0 10*3/uL Normal 0.0-0.2 [facility] Comment on above: Result Comment: PERF ORMED BY: [place] [address] PATHOLOGIST 3RD PRESSMAN DORA ALLISON M.D. Performed By: #### C BC #### [place] [address] [place] Basophils/100 WBC (Bld) 0.4 % Normal . [facility] Comment on above: Performed By: #### C BC #### [facility] [address] [place] [address] [place] Eosinophils (Bld) [#/Vol] 0.2 10*3/uL Normal 0.0-0.45 [facility] Comment on above: Performed By: #### C BC #### [place] [address] [place] Eosinophils/100 WBC (Bld) 2.2 % Normal . [facility] Comment on above: Performed By: #### C BC #### [facility] [address] Erythrocyte distribution width (RBC) [Ratio] 13.5 % Normal 11.9-15.3 [facility] Comment on above: Performed By: #### C BC #### [facility] [address] Hematocrit (Bld) [Volume fraction] 36.1 % Normal 34.0-46.4 [facility] Comment on above: Performed By: #### C BC #### [address] Hemoglobin (Bld) [Mass/Vol] 12.0 g/dL Normal 11.8-15.4 [facility] Comment on above: Performed By: #### C BC #### [address] Lymphocytes (Bld) [#/Vol] 1.9 10*3/uL Normal 1.00-4.8 [facility] Comment on above: Performed By: #### C BC #### [address] Lymphocytes/100 WBC (Bld) 24.8 % Normal . [facility] Comment on above: Performed By: #### C BC #### [address] MCH (RBC) [Entitic mass] 29.0 pg Normal 24.7-34.3 [facility] Comment on above: Performed By: #### C BC #### [address] MCV (RBC) [Entitic vol] 87.7 fL Normal 80-100 [facility] Comment on above: Performed By: #### C BC #### [address] Mean Corpuscular HGB Conc 33.1 g/dL Normal 32.0-35.0 [facility] Comment on above: Performed By: #### C BC #### [place] [address] [place] Monocytes (Bld) [#/Vol] 0.6 10*3/uL Normal 0.0-0.8 [facility] Comment on above: Performed By: #### C BC #### [facility] [address] [place] [address] [place] Monocytes/100 WBC (Bld) 7.3 % Normal . [facility] Comment on above: Performed By: #### C BC #### [facility] [address] Neutrophils (Bld) [#/Vol] 5.1 10*3/uL Normal 1.8-7.7 [facility] Comment on above: Performed By: #### C BC #### [address] Neutrophils/100 WBC (Bld) 65.3 % Normal . [facility] Comment on above: Performed By: #### C BC #### [address] Nucleated RBC/100 WBC (Bld) [Ratio] 0.0 % Normal 0-0.5 [facility] Comment on above: Performed By: #### C BC #### [address] Platelet mean volume (Bld) [Entitic vol] 7.9 fL Normal 6.3-10.7 [facility] Comment on above: Performed By: #### C BC #### [place] [address] [place] Platelets (Bld) [#/Vol] 316 10*3/uL Normal 150-450 [facility] Comment on above: Performed By: #### C BC #### [place] [address] [place] RBC (Bld) [#/Vol] 4.12 10*6/uL Normal 3.60-5.00 [facility] Comment on above: Performed By: #### C BC #### [place] [address] [place] WBC (Bld) [#/Vol] 7.8 10*3/uL Normal 4.5-11.0 [facility] Comment on above: Performed By: #### C BC #### [facility] [address] Creatinine and Glomerular fi ltration rate.predicted panel (S/P/Bld)Ordered By: Spenser Canchola on 05-19-2022 Creatinine [Mass/Vol] 0.99 mg/dL 0.44-1.03 [facility] Eosinophils Auto (Bld) [#/Vo l]Ordered By: Spenser Canchola on 05-19-2022 Eosinophils (Bld) [#/Vol] 0.2 10*3/uL 0.0-0.45 [facility] Eosinophils/100 WBC Auto (Bl d)Ordered By: Spenser Canchola on 05-19-2022 Eosinophils/100 WBC (Bld) 2.2 % . [facility] Erythrocyte distribution wid th Auto (RBC) [Ratio]Ordered By: Spenser Canchola on 05-19-2022 Erythrocyte distribution width (RBC) [Ratio] 13.5 % 11.9-15.3 [facility] Estimated glomerular filtrat ion rate (GFR) non- AmericanOrdered By: Spenser Canchola on 05-19-2022 GFR/1.73 sq M.predicted among non-blacks MDRD (S/P/Bld) [Vol rate/Area] 57 mL/Min [facility] Hematocrit Auto (Bld) [Volum e fraction]Ordered By: Spenser Canchola on 05-19-2022 Hematocrit (Bld) [Volume fraction] 36.1 % 34.0-46.4 [facility] Hemoglobin [Mass/volume] in BloodOrdered By: Spenser Canchola on 05-19-2022 Hemoglobin (Bld) [Mass/Vol] 12.0 g/dL 11.8-15.4 [facility] Laboratory - Hematology and Cell countsOrdered By: Spenser Canchola on 05-19-2022 Nucleated RBC/100 WBC (Bld) [Ratio] 0.0 % 0-0.5 [facility] Leukocytes [#/volume] in Blo od by Automated countOrdered By: Spenser Canchola on 05-19-2022 WBC (Bld) [#/Vol] 7.8 10*3/uL 4.5-11.0 [facility] Lymphocytes Auto (Bld) [#/Vo l]Ordered By: Spenser Canchola on 05-19-2022 Lymphocytes (Bld) [#/Vol] 1.9 10*3/uL 1.00-4.8 [facility] Lymphocytes/100 WBC Auto (Bl d)Ordered By: Spenser Canchola on 05-19-2022 Lymphocytes/100 WBC (Bld) 24.8 % . [facility] MCH Auto (RBC) [Entitic mass ]Ordered By: Spenser Canchola on 05-19-2022 MCH (RBC) [Entitic mass] 29.0 pg 24.7-34.3 [facility] MCHC Auto (RBC) [Mass/Vol]Or dered By: Spenser Canchola on 05-19-2022 MCHC (RBC) [Mass/Vol] 33.1 g/dL 32.0-35.0 [facility] MCV Auto (RBC) [Entitic vol] Ordered By: Spenser Canchola on 05-19-2022 MCV (RBC) [Entitic vol] 87.7 fL 80-100 [facility] Monocytes Auto (Bld) [#/Vol] Ordered By: Spenser Canchola on 05-19-2022 Monocytes (Bld) [#/Vol] 0.6 10*3/uL 0.0-0.8 [facility] Monocytes/100 WBC Auto (Bld) Ordered By: Spenser Canchola on 05-19-2022 Monocytes/100 WBC (Bld) 7.3 % . [facility] Neutrophils Auto (Bld) [#/Vo l]Ordered By: Spenser Canchola on 05-19-2022 Neutrophils (Bld) [#/Vol] 5.1 10*3/uL 1.8-7.7 [facility] Neutrophils/100 WBC Auto (Bl d)Ordered By: Spenser Canchola on 05-19-2022 Neutrophils/100 WBC (Bld) 65.3 % . [facility] No Panel InformationOrdered By: Spenser Canchola on 05-19-2022 25-Hydroxy Vitamin D Total 19.7 ng/mL 30-100 [facility] Comment on above: VITAMIN D STATUS 25( [place])VITAMIN D RANGE (ng/mL) Deficient <20 Insufficient 20 to <30Sufficient 30 to 100Reference: Babita MF,Audelia NC, John NÚÑEZ, et al. Evaluation,treatment, and prevention of vitamin D deficiency; an Endocrine Society clinical practice guideline. JCEM. 2010; 96(7):1911-30. Estimated GFR () > 60 mL/Min [facility] Comment on above: GFR estimated refere nce range: According to KDOQI guidelines, <60 ml/min/1.73m2 is sufficient to diagnose a patient with chronic kidney disease. Pharmacy Creatinine Clearance (Chem N/A [facility] Parathyroid Hormone Intacton 05-19-2022 Parathyroid Hormone Intact 51.6 pg/mL Normal - [facility] Comment on above: Result Comment: PERF ORMED BY: [facility] [address] [place] [address] PATHOLOGIST 3RD PRESSMAN DORA ALLISON M.D. Performed By: #### C OVID-19 VANGIE MALCOLMEG #### [facility] [address] Platelet mean volume Auto (B ld) [Entitic vol]Ordered By: Spenser Canchola on 05-19-2022 Platelet mean volume (Bld) [Entitic vol] 7.9 fL 6.3-10.7 [facility] Platelets Auto (Bld) [#/Vol] Ordered By: Spenser Canchola on 05-19-2022 Platelets (Bld) [#/Vol] 316 10*3/uL 150-450 [facility] RBC Auto (Bld) [#/Vol]Ordere d By: Spenser Canchola on 05-19-2022 RBC (Bld) [#/Vol] 4.12 10*6/uL 3.60-5.00 [facility] Serum or plasma anion gap de terminationOrdered By: Spenser Canchola on 05-19-2022 Anion gap [Moles/Vol] 15.4 mmol/L 6.0-15.0 [facility] Serum or plasma calcium jeane urement (mass/volume)Ordered By: Spenser Canchola on 05-19-2022 Calcium [Mass/Vol] 9.5 mg/dL 8.2-10.2 [facility] Serum or plasma chloride thomas surement (moles/volume)Ordered By: Spenser Canchola on 05-19-2022 Chloride [Moles/Vol] 104 mmol/L 95-114 [facility] Serum or plasma glucose jeane urement (mass/volume)Ordered By: Spenser Canchola on 05-19-2022 Glucose [Mass/Vol] 90 mg/dL 70-100 [facility] Comment on above: ADA recommended refe rence rangeRandom Glucose Reference Range is dependent on time and content of last meal. Glucose of more than 200 mg/dL in a nonstressed, ambulatory subject supports the diagnosis of Diabetes Mellitus. Serum or plasma intact parat hyroid hormone measurement (mass/volume)Ordered By: Spenser Canchola on 05-19-2022 Parathyrin.intact [Mass/Vol] 51.6 pg/mL [facility] Serum or plasma potassium me asurement (moles/volume)Ordered By: Spenser Canchola on 05-19-2022 Potassium [Moles/Vol] 4.4 mmol/L 3.5-5.1 [facility] Serum or plasma sodium measu rement (moles/volume)Ordered By: Spenser Canchola on 05-19-2022 Sodium [Moles/Vol] 138 mmol/L 136-146 [facility] Serum or plasma total carbon dioxide measurement (moles/volume)Ordered By: Spenser Canchola on 05-19-2022 CO2 [Moles/Vol] 23.0 mmol/L 22.0-30.0 [facility] Serum or plasma urea nitroge n measurement (mass/volume)Ordered By: Spenser Canchola on 05-19-2022 Urea nitrogen [Mass/Vol] 18 mg/dL 04-09 [facility] TSH DL <= 0.005 mIU/L QnOrde red By: Spenser Canchola on 05-19-2022 TSH Qn 0.74 m[IU]/L 0.45-5.33 [facility] Thyroid Stimulating Hormoneo n 05-19-2022 TSH Qn 0.74 m[IU]/L Normal 0.45-5.33 [facility] Comment on above: Performed By: #### C OVID-19 SIMÓN MALCOLM #### [facility] [address] [place] [address] [facility] Vitamin D 25 Hydroxy Totalon 05-19-2022 Vitamin D 25 Hydroxy Total 19.7 ng/mL Low 30-100 [facility] Comment on above: Result Comment: MARINA MIN D STATUS 25([place])VITAMIN D RANGE (ng/mL) Deficient <20 Insufficient 20 to <30 Sufficient 30 to 100 Reference: Babita MF,Audelia NC, John NÚÑEZ, et al. Evaluation,treatment, and prevention of vitamin D deficiency; an Endocrine Society clinical practice guideline. JCEM. 2010; 96(7):1911-30. Performed By: #### C OVID-19 SIMÓN MALCOLM #### [place] [id number] [facility] Office Visit (Cardiology)on 05-13-2022 Follow-up visit Diagnoses/Problems Assessed S/P TAVR (transcatheter aortic valve replacement) (V43.3) (Z95.2) Essential hypertension, benign (401.1) (I10) Chronic pain of both knees (719.46,338.29) (M25.561,M25.562,G89.29) Orders Chronic pain of both knees, S/P TAVR (transcatheter aortic valve replacement) Physical Therapy - Aquatic Referral Evaluation and Treatment Evaluate AND Treat Status: Hold For - Scheduling Requested for: 13May2022 Essential hypertension, benign, S/P TAVR (transcatheter aortic valve replacement) Start: Furosemide 20 MG Oral Tablet; TAKE 1 TABLET DAILY NEEDED for increased shortness, increased leg swelling, and / or weight gain (3lbs in 24hrs or 5lbs in 48hrs) S/P TAVR (transcatheter aortic valve replacement) Start: Azithromycin 500 MG Oral Tablet; TAKE 1 TABLET 30-60 mins before your dental procedure Chief Complaint VIRGILIO JOHNSON is being seen for a cardiovascular evaluation . 1 month s/p TAVR. A telephone visit (audio only) between the patient (at the originating site) and the provider (at the distant site) was utilized to provide this telehealth service. Verbal consent was requested and obtained from VIRGILIO JOHNSON on this date, 05/13/2022 03:00 PM , for a telehealth visit. History of Present IllnessThe patient is NYHA functional Class II. Symptoms: stable lower extremity edema, improved dyspnea on exertion, stable fatigue, stable exercise intolerance, denies orthopnea and denies paroxysmal nocturnal dyspnea. Associated symptoms include no chest pain, no syncope and no palpitations. Home Monitoring: The patient checks her weight regularly. Weight control has been good. Medications: the patient is adherent with her medication regimen. the patient complains of medication side effects. Disease Management: the patient is doing well with her heart failure goals. Due For: an echocardiogram. Active Problems Problems Cataract, nuclear sclerotic, both eyes (366.16) (H25.13) Class 2 obesity with body mass index (BMI) of 38.0 to 38.9 in adult (278.00,V85.38) (E66.9,Z68.38) Dyspnea (786.09) (R06.00) Essential hypertension, benign (401.1) (I10) Never a smoker Preop cardiovascular exam (V72.81) (Z01.810) Primary open angle glaucoma (POAG) of both eyes, mild stage (365.11,365.71) (H40.1131) S/P TAVR (transcatheter aortic valve replacement) (V43.3) (Z95.2) Surgical History Problems History of Aortic valve replacement History of Complete colonoscopy Managed By: Kyara FLORES, Abraham Leary (Gastroenterology) History of Corneal lasik History of Eye surgery History of Knee replacement History of Knee replacement partial History of Laser gonioplasty Past Medical History Problems History of Glaucoma of both eyes (365.9) (H40.9) History of Nonrheumatic aortic valve stenosis (424.1) (I35.0) Current Meds Medication NameInstruction amLODIPine Besylate 5 MG Oral TabletTake 1 tablet daily Aspirin Low Dose 81 MG Oral Tablet Delayed ReleaseTake 1 tablet daily Atorvastatin Calcium 10 MG Oral TabletTAKE 1 TABLET Bedtime Dicyclomine HCl - 20 MG Oral TabletTAKE 1 TABLET TWICE DAILY. Gabapentin 100 MG Oral CapsuleTAKE 2 CAPSULE Twice daily Ibuprofen 200 MG Oral TabletTAKE TABLET PRN Meloxicam 15 MG Oral TabletTAKE 1 TABLET DAILY. rOPINIRole HCl - 0.25 MG Oral Tablet1 in am, 1 lunch, 2 pm, 2 bedtime tiZANidine HCl - 4 MG Oral TabletTAKE 1/2 TO 1 TABLET BY MOUTH AT BEDTIME Tylenol Extra Strength 500 MG Oral TabletTAKE 1 TABLET EVERY 4 TO 6 HOURS NEEDED. Valsartan 160 MG Oral TabletTAKE 1 TABLET DAILY. Allergies Medication Brimonidine Tartrate POWD Recorded By: Heather Larson; 01/10/2019 9:23:16 AM Cosopt Recorded By: Heather Larson; 01/10/2019 9:23:16 AM levalbuterol Recorded By: Heather Larson; 01/10/2019 9:23:16 AM Penicillins Recorded By: Heather Larson; 01/10/2019 9:23:16 AM timolol Recorded By: Heather Larson; 01/10/2019 9:23:16 AM Trusopt Recorded By: Heather Larson; 01/10/2019 9:23:16 AM Family History Mother Family history of congestive heart failure (V17.49) (Z82.49) Family history of glaucoma (V19.11) (Z83.511) Father Family history of cerebrovascular accident (CVA) (V17.1) (Z82.3) Family history of glaucoma (V19.11) (Z83.511) Sister Family history of heart murmur (V17.49) (Z82.49) Social History Problems Caffeine use (V49.89) (Z78.9) 2-3 cups coffee daily Never a smoker No alcohol use No illicit drug use Review of Systems Constitutional: feeling tired, but not feeling poorly, no fever and no chills. Cardiovascular: lower extremity edema, but no chest pain and no palpitations. Respiratory: shortness of breath and shortness of breath during exertion, but no cough, no wheezing, no orthopnea and no PND. Musculoskeletal: arthralgias, joint swelling and joint stiffness. Neurological: no dizziness and no fainting. All other systems have been reviewed and are negative for complaint. Scores and Scales [place] [facility] (more content not included)... [facility] (Cardiology)on 04-01-2022 Follow-up visit Diagnoses/Problems Assessed Nonrheumatic aortic valve stenosis (424.1) (I35.0) S/P TAVR (transcatheter aortic valve replacement) (V43.3) (Z95.2) Dyspnea (786.09) (R06.00) Essential hypertension, benign (401.1) (I10) Never a smoker Class 2 obesity with body mass index (BMI) of 38.0 to 38.9 in adult (278.00,V85.38) (E66.9,Z68.38) Preop cardiovascular exam (V72.81) (Z01.810) Orders Class 2 obesity with body mass index (BMI) of 38.0 to 38.9 in adult Healthy Weight Tips; Status:Complete - Retrospective Authorization; Done: [id number] Essential hypertension, benign Start: Valsartan 160 MG Oral Tablet (Diovan); TAKE 1 TABLET DAILY SocHx: Never a smoker Tobacco Use Screening; Status:Complete; Done: [id number] Unlinked Stop: Losartan Potassium-HCTZ 100-25 MG Oral Tablet Patient Instructions Please bring all medicines, vitamins, and herbal supplements with you when you come to the office. Prescriptions will not be filled unless you are compliant with your follow up appointments or have a follow up appointment scheduled as per instruction of your physician. Refills should be requested at the time of your visit. Follow up in 6 months Patient may have an additional 2 weeks off RTW 04-19-2022 Patient may proceed with knee surgery in July 2022- Dr. Caban Chief Complaint DAMON cath results. History of Present Illness Patient is here for follow-up continue management for recent evaluation for severe aortic stenosis. She was referred for TAVR which was performed. Apparently she had some issue with sedation requiring the procedure to be done under general anesthesia because of restless leg syndrome. Her procedure done without any complication. I was able to review and discussed with her all her recent diagnostic testing including cardiac catheterization and echo etc. Patient is doing well. She denies any complaint. She requesting to extend hallux stay off work for 2 more weeks. She also entertaining the idea of proceeding with knee surgery. Assessment 1. Aortic stenosis status post recent successful TAVR done without any complication 2. Patient requesting preoperative risk assessment for knee surgery. I advised that she can proceed with surgery after new year in 3 months 3. Hypertension suboptimally controlled 1 4. Obesity 5. I advised the patient to delay her dental work for 2 months 6. I discussed with her endocarditis prophylaxis at great length Plan 1. Patient was given an note to extend her stay off work for a total of 4 weeks from the time of her procedure 2. Patient was advised to delay her dental work for 2 months and I advised that she can proceed with her knee surgery after new year 3. I encouraged her to lose weight, exercise and diet and improved address her risk factor aggressively 4. Endocarditis prophylaxis 5. Advised her to switch her losartan to valsartan 160 mg daily and if blood pressure remains elevated to notify me 6. 1 Follow-up in 6-month1 1 Amended By: Josep Perdomo; Apr 01 2022 4:36 PM ESTSurgical History Problems History of Aortic valve replacement History of Complete colonoscopy Managed By: Kyara FLORES, Abraham Leary (Gastroenterology) History of Corneal lasik History of Eye surgery History of Knee replacement History of Knee replacement partial History of Laser gonioplasty Current Meds Medication NameInstruction amLODIPine Besylate 5 MG Oral TabletTake 1 tablet daily Aspirin Low Dose 81 MG Oral Tablet Delayed ReleaseTake 1 tablet daily Atorvastatin Calcium 10 MG Oral TabletTAKE 1 TABLET Bedtime Dicyclomine HCl - 20 MG Oral TabletTAKE 1 TABLET TWICE DAILY. Gabapentin 100 MG Oral CapsuleTAKE 2 CAPSULE Twice daily Ibuprofen 200 MG Oral TabletTAKE TABLET PRN Losartan Potassium-HCTZ 100-25 MG Oral TabletTAKE 1 TABLET DAILY. Meloxicam 15 MG Oral TabletTAKE 1 TABLET DAILY. rOPINIRole HCl - 0.25 MG Oral Tablet1 in am, 1 lunch, 2 pm, 2 bedtime tiZANidine HCl - 4 MG Oral TabletTAKE 1/2 TO 1 TABLET BY MOUTH AT BEDTIME Tylenol Extra Strength 500 MG Oral TabletTAKE 1 TABLET EVERY 4 TO 6 HOURS NEEDED. Allergies Medication Brimonidine Tartrate POWD Recorded By: Heather Larson; 01/10/2019 9:23:16 AM Cosopt Recorded By: Heather Larson; 01/10/2019 9:23:16 AM levalbuterol Recorded By: Heather Larson; 01/10/2019 9:23:16 AM Penicillins Recorded By: Heather Larson; 01/10/2019 9:23:16 AM timolol Recorded By: Heather Larson; 01/10/2019 9:23:16 AM Trusopt Recorded By: Heather Larson; 01/10/2019 9:23:16 AM Social History Problems Caffeine use (V49.89) (Z78.9) 2-3 cups coffee daily Never a smoker No alcohol use No illicit drug use Review of Systems Constitutional: not feeling tired. Cardiovascular: fast heart rate, but no intermittent leg claudication and as noted in HPI. Respiratory: shortness of breath during exertion, but no cough and no shortness of breath. Gastrointestinal: no change in bowel habits and no blood in stools. (more content not included)... Normal [facility] Tobacco Screening.on 022 Tobacco use status CP b) No -[facility] y 89 DO Work Phone: CBC AUTO DIFFon 03-25-2022 BASO # 0.0 103/ul Normal 0.0-0.1 [facility] Comment on above: Performed By: #### C BC #### [facility] [address] [address] [address] Luh Brown Basophils/100 WBC (Bld) 0.4 % Normal 0.2-2.0 [facility] Comment on above: Performed By: #### C BC #### [facility] [address] [address] [address] Luh Brown EO # 0.2 103/ul Normal 0.0-0.7 [facility] Comment on above: Performed By: #### C BC #### [facility] [address] [address] [address] Luh Brown Eosinophils/100 WBC (Bld) 2.5 % Normal 0.9-7.0 [facility] Comment on above: Performed By: #### C BC #### [facility] [address] [address] [address] Luh Brown Erythrocyte distribution width (RBC) [Ratio] 13.0 % Normal 11.0-15.0 [facility] Comment on above: Performed By: #### C BC #### [facility] [address] [place] [address] Dr. Luh Brown Hematocrit (Bld) [Volume fraction] 32.7 % Critically low 36.0-48.0 [facility] Comment on above: Performed By: #### C BC #### [facility] [address] [address] [address] Luh Brown Hemoglobin (Bld) [Mass/Vol] 10.8 g/dL Critically low 12.0-16.0 [facility] Comment on above: Performed By: #### C BC #### [facility] [address] [address] [address] Luh Brown IG # 0.05 10e3/ul Critically high 0.00-0.03 [facility] Comment on above: Performed By: #### C BC #### [facility] [address] [address] [address] Luh Brown IG % 0.6 % Critically high 0.0-0.5 [facility] Comment on above: Performed By: #### C BC #### [facility] [address] [place] [address] Dr. Luh Brown LYMPH # 2.0 103/ul Normal 1.2-3.8 [facility] Comment on above: Performed By: #### C BC #### [facility] [address] [place] [address] Dr. Luh Brown Lymphocytes/100 WBC (Bld) 24.0 % Normal 20.5-60.0 [facility] Comment on above: Performed By: #### C BC #### [facility] [address] [place] [address] Dr. Luh Brown MANUAL DIFF REQ NO Normal [facility] Comment on above: Performed By: #### C BC #### [facility] [address] [address] [address] Luh Brown MCH (RBC) [Entitic mass] 29.3 pg Normal 26.7-34.0 [facility] Comment on above: Performed By: #### C BC #### [facility] [address] [place] [address] Dr. Luh Brown MCHC (RBC) [Mass/Vol] 33.0 g/dL Normal 29.9-35.2 [facility] Comment on above: Performed By: #### C BC #### [facility] [address] [address] [address] Luh Brown MCV (RBC) [Entitic vol] 88.9 fL Normal 81.0-99.0 [facility] Comment on above: Performed By: #### C BC #### [facility] [address] [address] [address] Luh Brown MONO # 0.6 103/ul Normal 0.3-0.8 [facility] Comment on above: Performed By: #### C BC #### [facility] [address] [address] [address] Luh Brown Monocytes/100 WBC (Bld) 7.9 % Normal 1.7-12.0 [facility] Comment on above: Performed By: #### C BC #### [facility] [address] [address] [address] Luh Brown NEUT # 5.3 103/ul Normal 1.4-6.5 [facility] Comment on above: Performed By: #### C BC #### [facility] [address] [place] [address] Dr. Luh Brown Neutrophils/100 WBC (Bld) 64.6 % Normal 43.0-75.0 [facility] Comment on above: Performed By: #### C BC #### [facility] [address] [place] [address] Dr. Luh Brown Platelet mean volume (Bld) [Entitic vol] 9.2 fL Critically low 9.5-13.5 [facility] Comment on above: Performed By: #### C BC #### [facility] [address] [place] [address] Dr. Luh Brown PLT 291 103/ul Normal 150-450 [facility] Comment on above: Performed By: #### C BC #### [facility] [address] [address] [address] Luh Brown RBC 3.68 106/ul Critically low 4.20-5.40 [facility] Comment on above: Performed By: #### C BC #### [facility] [address] [address] [address] Luh Brown WBC 8.1 103/ul Normal 4.0-11.0 [facility] Comment on above: Performed By: #### C BC #### [facility] [address] [address] [address] Luh Brown PROF CHEM 8 (BAS METB)on Anion gap [Moles/Vol] 14.6 mmol/L Normal Th [facility] Comment on above: Performed By: #### B MP #### [facility] [address] [place] [address] Dr. Luh Brown Calcium [Mass/Vol] 9.1 mg/dL Normal 8.5-10.1 [facility] Comment on above: Performed By: #### B MP #### [facility] [address] [place] [address] Dr. Luh Brown Chloride [Moles/Vol] 101 mmol/L Normal 98-107 [facility] Comment on above: Performed By: #### B MP #### [facility] [address] [place] [address] Dr. Luh Brown CO2 [Moles/Vol] 27.7 mmol/L Normal 21.0-32.0 [facility] Comment on above: Performed By: #### B MP #### [facility] [address] [place] [address] Dr. Luh Brown Creatinine [Mass/Vol] 0.90 mg/dL Normal 0.55-1.02 [facility] Comment on above: Performed By: #### B MP #### [facility] [address] [place] [address] Dr. Luh Brown EGFR-AF FRENCH >60 Normal >=60 [facility] Comment on above: Performed By: #### B MP #### [facility] [address] [place] [address] Dr. Luh Brown EGFR-NON AF FRENCH >60 Normal >=60 [facility] Comment on above: Performed By: #### B MP #### [facility] [address] [place], [place] [id number] Dr. Luh Brown Glucose [Mass/Vol] 121 mg/dL Critically high 74-106 [facility] Comment on above: Performed By: #### B MP #### [facility] [address] [address] [address] Luh Brown Potassium [Moles/Vol] 4.3 mmol/L Normal 3.5-5.1 [facility] Comment on above: Performed By: #### B MP #### [facility] [address] [address] [address] Luh Brown Sodium [Moles/Vol] 139 mmol/L Normal 136-145 [facility] Comment on above: Performed By: #### B MP #### [facility] [address] [address] [address] Luh Brown Urea nitrogen [Mass/Vol] 18.0 mg/dL Normal 7.0-18.0 [facility] Comment on above: Performed By: #### B MP #### [facility] [address] [place] [address] Dr. Luh Brown Urea nitrogen/Creatinine [Mass ratio] 20.0 mg/mg Normal [facility] Comment on above: Performed By: #### B MP #### [facility] [address] [address] [address] Luh Brown PROTIMEon 03-25-2022 INR Coag (PPP) [Relative time] 0.94 {INR} Normal [facility] Comment on above: Performed By: #### P T #### [facility] [address] [place] [address] Dr. Luh Brown INR GUIDELINES SEE BELOW Normal [facility] Comment on above: Result Comment: DELISA RED INR: 2.0 - 3.0 CONDITIONS NOT LISTED BELOW 2.5 - 3.5 FOR PROSTHETIC HEART VALVE REPLACEMENT 2.5 - 3.5 RECURRENT THROMBOSIS Performed By: #### P T #### [facility] [address] [place] [address] Dr. Luh Brown PT Coag (PPP) [Time] 10.2 s Normal 9.0-11.6 [facility] Comment on above: Performed By: #### P T #### [facility] [address] [place], [place] [address] Dr. Luh Brown CBCon 03-22-2022 HCT Canceled Normal [facility] Comment on above: Order Comment: TEST CBC WAS CANCELLED, 03/22/2022 08:56 NO SPECIMEN RECEIVED IN LAB. Performed By: #### C BC #### [facility] [address] [place] [address] HGB Canceled Normal [facility] Comment on above: Order Comment: TEST CBC WAS CANCELLED, 03/22/2022 08:56 NO SPECIMEN RECEIVED IN LAB. Performed By: #### C BC #### [facility] [address] [place] [address] MCHC Canceled Normal [facility] Comment on above: Order Comment: TEST CBC WAS CANCELLED, 03/22/2022 08:56 NO SPECIMEN RECEIVED IN LAB. Performed By: #### C BC #### [facility] [address] [place] [address] MCV Canceled Normal [facility] Comment on above: Order Comment: TEST CBC WAS CANCELLED, 03/22/2022 08:56 NO SPECIMEN RECEIVED IN LAB. Performed By: #### C BC #### [facility] [address] [place] [address] NUCLEATED RBC Canceled Normal [facility] Comment on above: Order Comment: TEST CBC WAS CANCELLED, 03/22/2022 08:56 NO SPECIMEN RECEIVED IN LAB. Performed By: #### C BC #### [facility] [address] [place] [address] PLT Canceled Normal [facility] Comment on above: Order Comment: TEST CBC WAS CANCELLED, 03/22/2022 08:56 NO SPECIMEN RECEIVED IN LAB. Performed By: #### C BC #### [facility] [address] [place] [address] RBC Canceled Normal [facility] Comment on above: Order Comment: TEST CBC WAS CANCELLED, 03/22/2022 08:56 NO SPECIMEN RECEIVED IN LAB. Performed By: #### C BC #### [facility] [address] [place] [address] RDW-CV Canceled Normal [facility] Comment on above: Order Comment: TEST CBC WAS CANCELLED, 03/22/2022 08:56 NO SPECIMEN RECEIVED IN LAB. Performed By: #### C BC #### [facility] [address] [place] [address] WBC Canceled Normal [facility] Comment on above: Order Comment: TEST CBC WAS CANCELLED, 03/22/2022 08:56 NO SPECIMEN RECEIVED IN LAB. Performed By: #### C BC #### [facility] [address] [place] [address] CBCon 03-21-2022 HCT Canceled Normal [facility] Comment on above: Order Comment: TEST CBC WAS CANCELLED, 03/22/2022 08:56 NO SPECIMEN RECEIVED IN LAB. Performed By: #### C BC #### [facility] [address] [place] [address] HGB Canceled Normal [facility] Comment on above: Order Comment: TEST CBC WAS CANCELLED, 03/22/2022 08:56 NO SPECIMEN RECEIVED IN LAB. Performed By: #### C BC #### [facility] [address] [place] [address] MCHC Canceled Normal [facility] Comment on above: Order Comment: TEST CBC WAS CANCELLED, 03/22/2022 08:56 NO SPECIMEN RECEIVED IN LAB. Performed By: #### C BC #### [facility] [address] [place] [address] MCV Canceled Normal [facility] Comment on above: Order Comment: TEST CBC WAS CANCELLED, 03/22/2022 08:56 NO SPECIMEN RECEIVED IN LAB. Performed By: #### C BC #### [facility] [address] [place] [address] NUCLEATED RBC Canceled Normal [facility] Comment on above: Order Comment: TEST CBC WAS CANCELLED, 03/22/2022 08:56 NO SPECIMEN RECEIVED IN LAB. Performed By: #### C BC #### [facility] [address] [place] [address] PLT Canceled Normal [facility] Comment on above: Order Comment: TEST CBC WAS CANCELLED, 03/22/2022 08:56 NO SPECIMEN RECEIVED IN LAB. Performed By: #### C BC #### [facility] [address] [place] [address] RBC Canceled Normal [facility] Comment on above: Order Comment: TEST CBC WAS CANCELLED, 03/22/2022 08:56 NO SPECIMEN RECEIVED IN LAB. Performed By: #### C BC #### [facility] [address] [place] [address] RDW-CV Canceled Normal [facility] Comment on above: Order Comment: TEST CBC WAS CANCELLED, 03/22/2022 08:56 NO SPECIMEN RECEIVED IN LAB. Performed By: #### C BC #### [facility] [address] [place] [address] WBC Canceled Normal [facility] Comment on above: Order Comment: TEST CBC WAS CANCELLED, 03/22/2022 08:56 NO SPECIMEN RECEIVED IN LAB. Performed By: #### C BC #### [facility] [address] [place] [address] COAGULATION SCREENon 022 APTT Canceled Normal [facility] Comment on above: Order Comment: TEST COAGULATION SCREEN WAS CANCELLED, 03/21/2022 05:17 Result Comment: THE APTT IS NO LONGER USED FOR MONITORING UNFRACTIONATED HEPARIN THERAPY. FOR MONITORING HEPARIN THERAPY, USE THE HEPARIN ASSAY. Performed By: #### C OAGS #### [place] [address] [place] [address] PROTHROMBIN TIME Canceled Normal [facility] Comment on above: Order Comment: TEST COAGULATION SCREEN WAS CANCELLED, 03/21/2022 05:17 Performed By: #### C OAGS #### [facility] [address] [place] [address] PT, INR Canceled Normal [facility] Comment on above: Order Comment: TEST COAGULATION SCREEN WAS CANCELLED, 03/21/2022 05:17 Performed By: #### C OAGS #### [facility] [address] [place] [address] MAGNESIUMon 03-21-2022 MAGNESIUM Canceled Normal [facility] Comment on above: Order Comment: TEST MAGNESIUM WAS CANCELLED, 03/21/2022 05:17 Performed By: #### M G #### [facility] [address] [place] [address] RENAL FUNCTION PANELon 03-21 ALBUMIN Canceled Normal [facility] Comment on above: Order Comment: TEST RENAL FUNCTION PANEL WAS CANCELLED, 03/21/2022 05:17 Performed By: #### R ENAL #### [facility] [address] [place] [address] ANION GAP Canceled Normal [facility] Comment on above: Order Comment: TEST RENAL FUNCTION PANEL WAS CANCELLED, 03/21/2022 05:17 Performed By: #### R ENAL #### [facility] [address] [place] [address] BICARBONATE Canceled Normal [facility] Comment on above: Order Comment: TEST RENAL FUNCTION PANEL WAS CANCELLED, 03/21/2022 05:17 Performed By: #### R ENAL #### [facility] [address] [place] [address] CALCIUM Canceled Normal [facility] Comment on above: Order Comment: TEST RENAL FUNCTION PANEL WAS CANCELLED, 03/21/2022 05:17 Performed By: #### R ENAL #### [facility] [address] [place] [address] CHLORIDE Canceled Normal [facility] Comment on above: Order Comment: TEST RENAL FUNCTION PANEL WAS CANCELLED, 03/21/2022 05:17 Performed By: #### R ENAL #### [facility] [address] [place] [address] CREATININE Canceled Normal [facility] Comment on above: Order Comment: TEST RENAL FUNCTION PANEL WAS CANCELLED, 03/21/2022 05:17 Performed By: #### R ENAL #### [facility] [address] [place] [address] eGFR FEMALE Canceled Normal [facility] Comment on above: Order Comment: TEST RENAL FUNCTION PANEL WAS CANCELLED, 03/21/2022 05:17 Result Comment: CALC ULATIONS OF ESTIMATED GFR ARE PERFORMED USING THE 2020 CKD-EPI STUDY REFIT EQUATION WITHOUT THE RACE VARIABLE FOR THE IDMS-TRACEABLE CREATININE METHODS. https://jasn.asnjournals.org/content/early/ASN.09807 92665 Performed By: #### R ENAL #### [facility] [address] [place] [address] eGFR MALE Canceled Normal [facility] Comment on above: Order Comment: TEST RENAL FUNCTION PANEL WAS CANCELLED, 03/21/2022 05:17 Result Comment: CALC ULATIONS OF ESTIMATED GFR ARE PERFORMED USING THE 2020 CKD-EPI STUDY REFIT EQUATION WITHOUT THE RACE VARIABLE FOR THE IDMS-TRACEABLE CREATININE METHODS. https://jasn.asnjournals.org/content//ASN.34245 07905 Performed By: #### R ENAL #### [place] [address] [place] [address] GLUCOSE Canceled Normal [facility] Comment on above: Order Comment: TEST RENAL FUNCTION PANEL WAS CANCELLED, 03/21/2022 05:17 Performed By: #### R ENAL #### [facility] [address] [place] [address] PHOSPHORUS Canceled Normal [facility] Comment on above: Order Comment: TEST RENAL FUNCTION PANEL WAS CANCELLED, 03/21/2022 05:17 Result Comment: The performance characteristics of phosphorus testing in heparinized plasma have been validated by the individual laboratory site where testing is performed. Testing on heparinized plasma is not approved by the FDA; however, such approval is not necessary. Performed By: #### R ENAL #### [facility] [address] [place] [address] POTASSIUM Canceled Normal [facility] Comment on above: Order Comment: TEST RENAL FUNCTION PANEL WAS CANCELLED, 03/21/2022 05:17 Performed By: #### R ENAL #### [facility] [address] [place] [address] SODIUM Canceled Normal [facility] Comment on above: Order Comment: TEST RENAL FUNCTION PANEL WAS CANCELLED, 03/21/2022 05:17 Performed By: #### R ENAL #### [facility] [address] [place] [address] UREA NITROGEN Canceled Normal [facility] Comment on above: Order Comment: TEST RENAL FUNCTION PANEL WAS CANCELLED, 03/21/2022 05:17 Performed By: #### R ENAL #### [facility] [address] [place] [address] CBCon 03-20-2022 HCT Canceled Normal [facility] Comment on above: Order Comment: TEST CBC WAS CANCELLED, 03/22/2022 08:56 NO SPECIMEN RECEIVED IN LAB. Performed By: #### C BC #### [facility] [address] [place] [address] HGB Canceled Normal [facility] Comment on above: Order Comment: TEST CBC WAS CANCELLED, 03/22/2022 08:56 NO SPECIMEN RECEIVED IN LAB. Performed By: #### C BC #### [facility] [address] [place] [address] MCHC Canceled Normal [facility] Comment on above: Order Comment: TEST CBC WAS CANCELLED, 03/22/2022 08:56 NO SPECIMEN RECEIVED IN LAB. Performed By: #### C BC #### [facility] [address] [place] [address] MCV Canceled Normal [facility] Comment on above: Order Comment: TEST CBC WAS CANCELLED, 03/22/2022 08:56 NO SPECIMEN RECEIVED IN LAB. Performed By: #### C BC #### [facility] [address] [place] [address] NUCLEATED RBC Canceled Normal [facility] Comment on above: Order Comment: TEST CBC WAS CANCELLED, 03/22/2022 08:56 NO SPECIMEN RECEIVED IN LAB. Performed By: #### C BC #### [facility] [address] [place] [address] PLT Canceled Normal [facility] Comment on above: Order Comment: TEST CBC WAS CANCELLED, 03/22/2022 08:56 NO SPECIMEN RECEIVED IN LAB. Performed By: #### C BC #### [facility] [address] [place] [address] RBC Canceled Normal [facility] Comment on above: Order Comment: TEST CBC WAS CANCELLED, 03/22/2022 08:56 NO SPECIMEN RECEIVED IN LAB. Performed By: #### C BC #### [facility] [address] [place] [address] RDW-CV Canceled Normal [facility] Comment on above: Order Comment: TEST CBC WAS CANCELLED, 03/22/2022 08:56 NO SPECIMEN RECEIVED IN LAB. Performed By: #### C BC #### [facility] [address] [place] [address] WBC Canceled Normal [facility] Comment on above: Order Comment: TEST CBC WAS CANCELLED, 03/22/2022 08:56 NO SPECIMEN RECEIVED IN LAB. Performed By: #### C BC #### [facility] [address] [place] [address] CBC AND DIFFERENTIALon 03-20 % AUTOMATED IMMATURE GRAN 0.8 % Normal 0.0 - 0.9 [facility] Comment on above: Result Comment: Adrienne ture Granulocyte Count (IG) includes promyelocytes, myelocytes and metamyelocytes but does not include bands. Percent differential counts (%) should be interpreted in the context of the absolute cell counts (cells/L). Performed By: #### C OAGS #### [facility] [address] [place] [address] Basophils (Bld) [#/Vol] 0.02 10*3/uL Normal 0.00 - 0.10 [facility] Comment on above: Performed By: #### C OAGS #### [facility] [address] [place] [address] Basophils/100 WBC (Bld) 0.2 % Normal 0.0 - 2.0 [facility] Comment on above: Performed By: #### C OAGS #### [facility] [address] [place] [address] Eosinophils (Bld) [#/Vol] 0.07 10*3/uL Normal 0.00 - 0.70 [facility] Comment on above: Performed By: #### C OAGS #### [facility] [address] [place] [address] Eosinophils/100 WBC (Bld) 0.8 % Normal 0.0 - 6.0 [facility] Comment on above: Performed By: #### C OAGS #### [facility] [address] [place] [address] Erythrocyte distribution width (RBC) [Ratio] 13.4 % Normal 11.5 - 14.5 [facility] Comment on above: Performed By: #### C OAGS #### [facility] [address] [place] [address] Hematocrit (Bld) [Volume fraction] 31.6 % Low 36.0 - 46.0 [facility] Comment on above: Performed By: #### C OAGS #### [facility] [address] [place] [address] Hemoglobin (Bld) [Mass/Vol] 10.4 g/dL Low 12.0 - 16.0 [facility] Comment on above: Performed By: #### C OAGS #### [facility] [address] [place] [address] Lymphocytes (Bld) [#/Vol] 1.30 10*3/uL Normal 1.20 - 4.80 [facility] Comment on above: Performed By: #### C OAGS #### [facility] [address] [place] [address] Lymphocytes/100 WBC (Bld) 15.5 % Normal 13.0 - 44.0 [facility] Comment on above: Performed By: #### C OAGS #### [facility] [address] [place] [address] MCHC (RBC) [Mass/Vol] 32.9 g/dL Normal 32.0 - 36.0 [facility] Comment on above: Performed By: #### C OAGS #### [facility] [address] [place] [address] MCV (RBC) [Entitic vol] 91 fL Normal 80 - 100 [facility] Comment on above: Performed By: #### C OAGS #### [facility] [address] [place] [address] Monocytes (Bld) [#/Vol] 0.71 10*3/uL Normal 0.10 - 1.00 [facility] Comment on above: Performed By: #### C OAGS #### [facility] [address] [place] [address] Monocytes/100 WBC (Bld) 8.5 % Normal 2.0 - 10.0 [facility] Comment on above: Performed By: #### C OAGS #### [facility] [address] [place] [address] Neutrophils (Bld) [#/Vol] 6.21 10*3/uL Normal 1.20 - 7.70 [facility] Comment on above: Performed By: #### C OAGS #### [facility] [address] [place] [address] Neutrophils/100 WBC (Bld) 74.2 % Normal 40.0 - 80.0 [facility] Comment on above: Performed By: #### C OAGS #### [facility] [address] [place] [address] NUCLEATED RBC 0.0 /100 WBC Normal 0.0-0.0 [facility] Comment on above: Performed By: #### C OAGS #### [facility] [address] [place] [address] Platelets (Bld) [#/Vol] 235 10*3/uL Normal 150 - 450 [facility] Comment on above: Performed By: #### C OAGS #### [facility] [address] [place] [address] RBC 3.49 x10E12/L Low 4.00 - 5.20 [facility] Comment on above: Performed By: #### C OAGS #### [facility] [address] [place] [address] WBC (Bld) [#/Vol] 8.4 10*3/uL Normal 4.4 - 11.3 [facility] Comment on above: Performed By: #### C OAGS #### [facility] [address] [place] [address] COAGULATION SCREENon 022 aPTT Coag (Bld) [Time] 17 s Low 26 - 39 [facility] Comment on above: Result Comment: THE APTT IS NO LONGER USED FOR MONITORING UNFRACTIONATED HEPARIN THERAPY. FOR MONITORING HEPARIN THERAPY, USE THE HEPARIN ASSAY. Performed By: #### C OAGS #### [facility] [address] [address] [place], [place] PT Coag (PPP) [Time] 11.4 s Normal 9.8 - 13.4 [facility] Comment on above: Performed By: #### C OAGS #### [facility] [address] [place] [address] [place], [place] PT, INR 1.0 Normal 0.9 - 1.1 [facility] Comment on above: Performed By: #### C OAGS #### [facility] [address] [place] [address] [place], [place] Complete Blood Count + Diffe rentialon 03-20-2022 Basophils/100 WBC (Bld) 0.2 % 0.0 - 2.0 [facility] [employer] 250 DO Work Phone: Erythrocyte distribution width (RBC) [Ratio] 13.4 % See Below [facility] [employer] 250 DO Work Phone: Comment on above: Reference Range: 11. 5 - 14.5 Hematocrit (Bld) [Volume fraction] 31.6 % below low threshold See Below [facility] [employer] 250 DO Work Phone: Comment on above: Reference Range: 36. 0 - 46.0 Hemoglobin (Bld) [Mass/Vol] 10.4 g/dL below low threshold See Below [facility] [employer] 250 DO Work Phone: Comment on above: Reference Range: 12. 0 - 16.0 Lymphocytes/100 WBC (Bld) 15.5 % See Below [facility] Arpita franz 250 DO Work Phone: Comment on above: Reference Range: 13. 0 - 44.0 MCHC (RBC) [Mass/Vol] 32.9 g/dL See Below [facility] Arpita franz 250 DO Work Phone: Comment on above: Reference Range: 32. 0 - 36.0 MCV (RBC) [Entitic vol] 91 fL 80 - 100 [facility] Arpita franz 250 DO Work Phone: Monocytes/100 WBC (Bld) 8.5 % 2.0 - 10.0 [facility] Arpita franz 250 DO Work Phone: Neutrophils/100 WBC (Bld) 74.2 % See Below [facility] Arpita franz 250 DO Work Phone: Comment on above: Reference Range: 40. 0 - 80.0 Platelets (Bld) [#/Vol] 235 10*3/uL 150 - 450 [facility] Arpita franz 250 DO Work Phone: RBC (Bld) [#/Vol] 3.49 {x10E12/L} below low threshold See Below [facility] Arpita franz 250 DO Work Phone: Comment on above: Reference Range: 4.0 0 - 5.20 WBC (Bld) [#/Vol] 8.4 10*3/uL 4.4 - 11.3 [facility] Arpita y 250 DO Work Phone: Complete Blood Count + Differential 0.02 {x10E9/L} See Below [facility] Arpita franz 250 DO Work Phone: Comment on above: Reference Range: 0.0 0 - 0.10 Complete Blood Count + Differential 0.07 {x10E9/L} See Below [facility] Arpita franz 250 DO Work Phone: Comment on above: Reference Range: 0.0 0 - 0.70 Complete Blood Count + Differential 0.71 {x10E9/L} See Below [facility] 250 DO Work Phone: Comment on above: Reference Range: 0.1 0 - 1.00 Complete Blood Count + Differential 1.30 {x10E9/L} See Below [facility] 250 DO Work Phone: Comment on above: Reference Range: 1.2 0 - 4.80 Complete Blood Count + Differential 6.21 {x10E9/L} See Below [facility] 250 DO Work Phone: Comment on above: Reference Range: 1.2 0 - 7.70 Complete Blood Count + Differential 0.8 % 0.0 - 0.9 [place] [address] DO Work Phone: Comment on above: Immature Granulocyte Count (IG) includes promyelocytes, myelocytes and metamyelocytes but does not include bands. Percent differential counts (%) should be interpreted in the context of the absolute cell counts (cells/L). Complete Blood Count + Differential 0.0 {/100_WBC} 0.0-0.0 [place] [address] DO Work Phone: Daily Progress Note-Sebasur al Heart/ TAVRon 03-20-2022 Daily Progress Note-Structural Heart/ TAVR Service: Structural Heart/ TAVR Subjective Data: VIRGILIO JOHNSON is a 62 year old Female who is Hospital Day # 2. Additional Information: The patient was seen and examined. She reports feeling well without any overnight issues. She denies any dyspnea, orthopnea PND, angina or palpitations. RN reports no critical events overnight. Objective Data: Objective Information: T PRBPMAPSpO2 [id number]/[id number]% Date/Time03/20 12:009 13: 13: 13: 13: 8:00 Range(35.9C - 36.6C ) (57 - 85 ) (13 - 31 ) (101 - 186 )/ (34 - 84 ) (54 - 110 ) (91% - 100% ) As of 20-Mar-2022 00:00:00, patient is on 2 L/min of oxygen via room air. Pain reported at 03/20 12:00: 0 = None ---- Intake and Output ----- Mn[facility]Dy/[facility] Mar 20, 2022 6:00 [id number] Mar 19, 2022 10:00 [id number] The Intake and Output Totals for the last 24 hours are: [facility] [id number] Physical Exam Narrative: Physical Exam: [V] Reviewed [GEN] NAD, laying in bed comfortably, pleasant. [HEENT] NTAC. PERRL. [HEENT] Normal estimated JVP. Kussmaul negative. No HJR. [CHEST] Chest wall intact w/o ecchymosis, lesion, abrasion. Nontender. [CARD] RRR, no MRG, No LE edema [PULM] CTAB [ABD] NTND w/ NABS. No rigidity or guarding. [EXT] Warm. Dry. No lower extremity edema. [SKIN] Intact without visible significant rash, lesion, ecchymosis [NEURO] AOx3. CN II-XII grossly intact. Access sites without any hematoma, ecchymoses or active bleeding. Medication: Medications: Continuous Medications -------- 1. dexmedeTOMIDine 400 microgram/ NaCL 0.9% 100 mL Premix Infusion with Bolus from Ba.2 mcg/kg/hr IntraVenous Scheduled Medications -------- 1. amLODIPine (NORVASC): 5 mg Oral Daily 2. Aspirin Enteric Coated: 81 mg Oral Daily 3. Atorvastatin: 10 mg Oral At Bedtime 4. Dicyclomine: 20 mg Oral 2 Times a Day Before Meals 5. Docusate: 100 mg Oral 2 Times a Day 6. Gabapentin: 200 mg Oral 2 Times a Day 7. Heparin SubCutaneous: 5000 unit(s) SubCutaneous Every 8 Hours 8. hydroCHLOROthiazide: 25 mg Oral Daily 9. Losartan: 100 mg Oral Daily 10. Pantoprazole: 40 mg Oral Daily 11. rOPINIRole (REQUIP): 0.25 mg Oral 12. rOPINIRole (REQUIP): 0.5 mg Oral 13. tiZANidine: 4 mg Oral At Bedtime 14. Vancomycin IV Piggy Back: 1000 mg IntraVenous Piggyback Once PRN Medications -------- 1. Acetaminophen: 650 mg Oral Every 6 Hours 2. Atropine Injectable: 1 mg IntraVenous Push Once 3. Ondansetron Injectable: 4 mg IntraVenous Push Every 8 Hours 4. Polyethylene Glycol: 17 gram(s) Oral Daily 5. Sodium Chloride 0.9% Injectable Flush: 3 mL IntraVenous Flush Every 8 Hours and as Needed 6. traMADol: 50 mg Oral Every 6 Hours Conditional Medication Orders -------- 1. Perflutren Lipid Microsphere (Activated) 1.3 mL / NaCL 0.9% T.V. 10 mL Injectable: 0.5 mL IntraVenous Push Once 2. Perflutren Lipid Microsphere (Activated) 1.3 mL / NaCL 0.9% T.V. 10 mL Injectable: 0.5 mL IntraVenous Push Once Recent Lab Results: Results: CBC: 03/20/2022 11:24 \ Hgb / \ Canceled / WBC Plt Canceled Canceled / Hct \ / Canceled \ RBC: Canceled MCV: Canceled Neutrophil %: 74.2 RFP: 03/20/2022 02:26 NA+ Cl- BUN / 140 106 15 / -------- Glucose --- 127 H K+ HCO3- Creat \ 4.2 24 0.98 \ Calcium : 8.8Anion Gap : 14 Albumin : 4.0 Phos : 5.0 H Coagulation: 03/20/2022 02:26 PT / 11.4 / -------< INR < 1.0 PTT\ 17 L \ Radiology Results: Results: No Results have been selected. Please select Results from the Available Results list before marking as Reviewed. Impression: 1. Better inspiratory effort resulting in improvement lung aeration. Mild bibasilar presumed atelectasis with or without small right pleural effusion. 2. Status post TAVR. Xray Chest 1 View [Mar 20 2022 11:01AM] Conclusion: CONCLUSIONS: 1. Left ventricular systolic function is normal with a 60-65%estimated ejection fraction. 2. Spectral Doppler shows a pseudonormal pattern of left ventricular diastolic filling. 3. Mildly elevated RVSP. 4. There is a transcatheter aortic valve replacement. QUANTITATIVE DATA SUMMARY: 2D MEASUREMENTS: Normal Ranges: IVSd: 1.50 cm (0.6-1.1cm) LVPWd: 1.00 cm (0.6-1.1cm) LVIDd: 5.20 cm (3.9-5.9cm) LVIDs: 3.50 cm LV Mass Index: 119.7 g/m2 LV % FS 32.7 % LA VOLUME: Normal Ranges: LA Vol A4C: 82.1 ml (22+/-6mL/m2) LA Vol A2C: 70.6 ml LA Vol BP: 77.2 ml LA Vol Index A4C: 37.3ml/m2 LA Vol Index A2C: 32.1 ml/m2 LA Vol Index BP: 35.1 ml/m2 LA Area A4C: 23.5 cm2 LA Area A2C: 22.1 cm2 LA Major Chichester A4C: 5.7 cm LA Major Chichester A2C: 5.9 cm LA Volume Index: 32.4 ml/m2 RA VOLUME BY A/L METHO (more content not included)... Normal [facility] Echocardiogramon 03-20-2022 Echocardiography [facility], [address] [place] [address] and TRANSTHORACIC ECHOCARDIOGRAM REPORT Patient Name: VIRGILIO Goel Physician: [id number] Oswaldo Willoughby MD Study Date: 03/20/2022 Referring ABDIAZIZ NASH Physician: MRN/PID: [id number] PCP: Accession/Order#: [id number] [facility] Location: Date of : 1960 Fellow: Gender: F Nurse: Admit Date: 03/19/2022 Decontaminator: David Bowens RDCS Admission Status: Inpatient - Time Additional Staff: Critical Height: 165.10 cm CC Report to: CICU [facility] Weight: 116.58 kg Study Type: Echocardiogram BSA: 2.20 m2 Blood Pressure: 168 /72 mmHg Diagnosis/ICD: 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 Restless leg syndrome, s/p 29 Evolut FX TAVR on 03/19/22. Study Detail: The following Echo studies were performed: Doppler, 2D, M-Mode and color flow. Technically challenging study due to body habitus. PHYSICIAN INTERPRETATION: Left Ventricle: The left ventricular systolic function is normal, with an estimated ejection fraction of 60-65%. There are no regional wall motion abnormalities. The left ventricular cavity size is normal. There is mild concentric left ventricular hypertrophy. Spectral Doppler shows a pseudonormal pattern of left ventricular diastolic filling. Left Atrium: The left atrium is mildly dilated. Right Ventricle: The right ventricle is slightly enlarged. There is normal right ventricular global systolic function. Right Atrium: The right atrium is mildly dilated. Aortic Valve: There is a prosthetic aortic valve present. There are increased aortic valve velocities due to increased flow/dynamic ejection. The aortic valve dimensionless index is 0.68. There is a Medtronic transcatheter aortic valve replacement, with a 29 mm reported size. The peak aortic velocity was obtained from the right parasternal view. There is no evidence of aortic valve regurgitation. The peak instantaneous gradient of the aortic valve is 31.6 mmHg. The mean gradient of the aortic valve is 18.0 mmHg. Mitral Valve: The mitral valve is mildly thickened. There is mild mitral annular calcification. There is trace to mild mitral valve regurgitation. Tricuspid Valve: The tricuspid valve is structurally normal. There is trace to mild tricuspid regurgitation. The Doppler estimated RVSP is mildly elevated at 38.7 mmHg. Pulmonic Valve: The pulmonic valve is not well visualized. The pulmonic valve regurgitation was not well visualized. Pericardium: There is no pericardial effusion noted. Aorta: The aortic root is normal. Systemic Veins: The inferior vena cava appears mildly dilated. In comparison to the previous echocardiogram(s): Compared with study from 03/19/2022, the peak and mean aortic gradients are increased (were 23 and 12 mmHg). CONCLUSIONS: 1. Left ventricular systolic function is normal with a 60-65% estimated ejection fraction. 2. Spectral Doppler shows a pseudonormal pattern of left ventricular diastolic filling. 3. Mildly elevated RVSP. 4. There is a transcatheter aortic valve replacement. QUANTITATIVE DATA SUMMARY: 2D MEASUREMENTS: Normal Ranges: IVSd: 1.50 cm (0.6-1.1cm) LVPWd: 1.00 cm (0.6-1.1cm) LVIDd: 5.20 cm (3.9-5.9cm) LVIDs: 3.50 cm LV Mass Index: 119.7 g/m2 LV % FS 32.7 % LA VOLUME: Normal Ranges: LA Vol A4C: 82.1 ml (22+/-6mL/m2) LA Vol A2C: 70.6 ml LA Vol BP: 77.2 ml LA Vol Index A4C: 37.3ml/m2 LA Vol Index A2C: 32.1 ml/m2 LA Vol Index BP: 35.1 ml/m2 LA Area A4C: 23.5 cm2 LA Area A2C: 22.1 cm2 LA Major Chichester A4C: 5.7 cm LA Major Chichester A2C: 5.9 cm LA Volume Index: 32.4 ml/m2 RA VOLUME BY A/L METHOD: Normal Ranges: RA Area A4C: 21.5 cm2 M-MODE MEASUREMENTS: Normal Ranges: Ao Root: 3.30 cm (2.0-3.7cm) LAs: 4.20 cm (2.7-4.0cm) LV SYSTOLIC FUNCTION BY 2D PLANIMETRY (MOD): Normal Ranges: EF-A4C View: 59.8 % (>55%) EF-A2C View: 67.8 % EF-Biplane: 62.3 % LV DIASTOLIC FUNCTION: Normal Ranges: MV Peak E: 1.26 m/s (0.7-1.2 m/s) MV Peak A: 1.16 m/s (0.42-0.7 m/s) E/A Ratio: 1.09 (1.0-2.2) MV e' 0.08 m/s (>8.0) MV lateral e' 0.08 m/s MV medial e' 0.07 m/s E/e' Ratio: 16.80 (<8.0) a' 0.10 m/s MV DT: 217 msec (150-240 msec) PulmV Sys Gianfranco: 71.30 cm/s PulmV Munson Gianfranco: 51.90 cm/s PulmV S/D Gianfranco: 1.40 PulmV A Revs Gianfranco: 41.50 cm/s PulmV A Revs Dur: 124.00 msec MITRAL VALVE: Normal Ranges: MV Vmax: 1.10 m/s (<1.3m/s) MV peak P.8 mmHg (<5mmHg) MV mean P.0 mmHg (<2mmHg) MV VTI: 38.60 cm (10-13cm) MV DT: 217 msec (150-240msec) AORTIC VALVE: Normal Ranges: AoV Vmax: 2.81 m/s (<1.7m/s) AoV Peak P.6 mmHg (<20mmHg) AoV Mean P.0 mmHg (1.7-11.5mmHg) LVOT Max Gianfranco: 1.89 m/s (<1.1m/s) AoV VTI: 52.80 cm (18-25cm) LVOT VTI: 36.00 cm LVOT Diameter: 1.90 cm (1.8-2.4cm) AoV Area, VTI: 1.93 cm2 (2.5-5.5cm2) (more content not included)... Normal [facility] Electrocardiogram 12 Leadon 03-20-2022 Electrocardiogram 12 Lead Ventricular Rate 68 Atrial Rate 68 P-R Interval 228 QRS Duration 92 Q-T Interval 428 QTC Calculation(Bazett) 455 P Chichester 60 R Chichester -12 T Chichester 167 QRS Count 11 Q Onset 223 P Onset 109 P Offset 163 T Offset 437 QTC Fredericia 446 Diagnosis Class Abnormal Diagnosis Sinus rhythm with 1st degree A-V block Voltage criteria for left ventricular hypertrophy T wave abnormality, consider lateral ischemia Abnormal ECG When compared with ECG of 19-MAR-2022 15:16, Fusion complexes are no longer Present Premature ventricular complexes are no longer Present Confirmed by Vinay Wright ([id number]) on 03/23/2022 4:58:30 PM Normal [facility] Laboratory - Coagulationon 0 03-20-2022 aPTT Coag (PPP) [Time] 17 s below low threshold 26 - 39 Kacie Palm y 250 DO Work Phone: Comment on above: THE APTT IS NO LONGE R USED FOR MONITORING UNFRACTIONATED HEPARIN THERAPY. FOR MONITORING HEPARIN THERAPY, USE THE HEPARIN ASSAY. INR Coag (PPP) [Relative time] 1.0 {INR} 0.9 - 1.1 Luis Donato 250 DO Work Phone: PT Coag (PPP) [Time] 11.4 s 9.8 - 13.4 ANTONIO Donato 250 DO Work Phone: MAGNESIUMon 03-20-2022 Magnesium [Mass/Vol] 1.64 mg/dL Normal 1.60 - 2.40 [facility] Comment on above: Performed By: #### C BC #### [facility] [address] [place] [address] Magnesium, Serumon Magnesium [Mass/Vol] 1.64 mg/dL See Below Sandeep weber [place] Arpita franz 250 DO Work Phone: Comment on above: Reference Range: 1.6 0 - 2.40 No Panel Informationon 03-20 [email or web address]& Date=09-23-2021&Time=02% 3a39%3a36%3a00&TestType= ECG&Site=1&OutputType=PD F&Ext=PDF [facility] Arpita franz 250 DO Work Phone: Sinus rhythm with 1s t degree A-V block Luis [place] Arpita franz 250 DO Work Phone: Abnormal [facility] Arpita franz 250 DO Work Phone: [phone] Luis [place] Arpita franz 250 DO Work Phone: [phone] -[facility] y 250 DO Work Phone: [phone] -[facility] 250 DO Work Phone: [phone] -[facility] 250 DO Work Phone: [phone] -[facility] 250 DO Work Phone: [phone] -[facility] 250 DO Work Phone: [phone] -[facility] 250 DO Work Phone: [phone] -[facility] 250 DO Work Phone: [phone] -[facility] 250 DO Work Phone: [phone] [facility] 250 DO Work Phone: [phone] [facility] 250 DO Work Phone: [phone] -[facility] 250 DO Work Phone: [phone] -[facility] 250 DO Work Phone: [phone] -[facility] 250 DO Work Phone: [phone] Order Reconciliationon 03-20 Order Reconciliation Page 1 Discharge Reconciliation Document Reconciliation Type: Discharge requested on behalf of Sachin Brannon (Resident) done by Sachin Brannon (Resident)) Discharge - Reconciliation: 20-Mar-2022 12:37 by: Sachin Brannon (Resident)) Discharge - Reset to Incomplete: 20-Mar-2022 15:56 by: Sachin Brannon (Resident)) Discharge - Reconciliation: 20-Mar-2022 15:56 by: Sachin Brannon (Resident)) Discharge - Reset to Incomplete: 20-Mar-2022 16:09 by: Sachin Brannon ( (Resident)) Discharge - Reconciliation: 20-Mar-2022 16:09 by: Sachin Brannon ( (Resident)) Home Medications EnteredHOME MEDICATIONS AT DISCHARGE DateReconciliation Comment/ Additional Information amLODIPine 5 mg oral tablet 1 tab(s) orally once a day 19-Mar-2022 10:54 amLODIPine 5 mg oral tablet 1 tab(s) orally once a day 19-Mar-2022 10:54 amLODIPine 5 mg oral tablet is continued as amLODIPine 5 mg oral tablet atorvastatin 10 mg oral tablet 1 tab(s) orally once a day 19-Mar-2022 10:55 atorvastatin 10 mg oral tablet 1 tab(s) orally once a day 19-Mar-2022 10:55 atorvastatin 10 mg oral tablet is continued as atorvastatin 10 mg oral tablet dicyclomine 20 mg oral tablet 1 tab(s) orally 2 times a day 19-Mar-2022 10:56 dicyclomine 20 mg oral tablet 1 tab(s) orally 2 times a day 19-Mar-2022 10:56 dicyclomine 20 mg oral tablet is continued as dicyclomine 20 mg oral tablet gabapentin 100 mg oral capsule 2 cap(s) orally 2 times a day 19-Mar-2022 10:59 gabapentin 100 mg oral capsule 2 cap(s) orally 2 times a day 19-Mar-2022 10:59 gabapentin 100 mg oral capsule is continued as gabapentin 100 mg oral capsule ibuprofen 200 mg oral tablet 1 tab(s) orally 2 times a day, As Needed 19-Mar-2022 11:15 ibuprofen 200 mg oral tablet 1 tab(s) orally 2 times a day, As Needed 19-Mar-2022 11:15 ibuprofen 200 mg oral tablet is continued as ibuprofen 200 mg oral tablet losartan-hydrochlorothia zide 100 mg-25 mg oral tablet 1 tab(s) orally once a day 19-Mar-2022 11:00 losartan-hydrochlorothia zide 100 mg-25 mg oral tablet 1 tab(s) orally once a day 19-Mar-2022 11:00 losartan-hydrochlorothia zide 100 mg-25 mg oral tablet is continued as losartan-hydrochlorothia zide 100 mg-25 mg oral tablet meloxicam 15 mg oral tablet 1 tab(s) orally once a day 02-Sep-2022 11:01 meloxicam 15 mg oral tablet 1 tab(s) orally once a day 19-Mar-2022 11:01 meloxicam 15 mg oral tablet is continued as meloxicam 15 mg oral tablet rOPINIRole 0.25 mg oral tablet 1 tab orally in the morning, 1 during the lunch time, 2 tabs in evening and 2 tabs at bedtime. 19-Mar-2022 11:04 rOPINIRole 0.25 mg oral tablet 1 tab orally in the morning, 1 during the lunch time, 2 tabs in evening and 2 tabs at bedtime. 19-Mar-2022 11:04 rOPINIRole 0.25 mg oral tablet is continued as rOPINIRole 0.25 mg oral tablet tiZANidine 4 mg oral tablet 0.5 to 1 tab(s) orally once a day (at bedtime) 19-Mar-2022 11:08 tiZANidine 4 mg oral tablet 0.5 to 1 tab(s) orally once a day (at bedtime) 19-Mar-2022 11:08 tiZANidine 4 mg oral tablet is continued as tiZANidine 4 mg oral tablet Current OrdersDateHOME MEDICATIONS AT DISCHARGE DateReconciliation Comment/ Additional Information Acetaminophen Tablet (TYLENOL)DOSE = 650 mg Oral Every 6 Hours, PRN Pain - Mild (1-3)Clinician Notes: When tolerating PO 18-Mar-2022 10:04 Acetaminophen is not required amLODIPine (NORVASC) TabletDOSE = 5 mg Oral Daily 19-Mar-2022 18:27 amLODIPine 5 mg oral tablet 1 tab(s) orally once a day amLODIPine (NORVASC) reconciled with the existing amLODIPine 5 mg oral tablet Aspirin Enteric Coated Enteric Coated Tablet (ECOTRIN)DOSE = 81 mg Oral Daily 18-Mar-2022 10:04 aspirin 81 mg oral delayed release tablet 1 tab(s) orally once a day -.Meds to Beds - .ADOD (03/20) 20-Mar-2022 12:35 Prescription is created for aspirin 81 mg oral delayed release tablet Atorvastatin Tablet (LIPITOR)DOSE = 10 mg Oral At Bedtime 19-Mar-2022 12:24 atorvastatin 10 mg oral tablet 1 tab(s) orally once a day Atorvastatin reconciled with the existing atorvastatin 10 mg oral tablet Atropine Injectable DOSE = 1 mg IntraVenous Push Once, PRN Vagal Reaction 18-Mar-2022 10:04 Atropine Injectable is not required dexmedeTOMIDine 400 microgram/ NaCL 0.9% 100 mL Premix Infusion with Bolus from Bag (PRECEDEX)IntraVenous Initial Dose Rate: 0.2 mcg/kg/hrMAX DOSE Rate = 1.5 mcg/kg/hrTitration Goal 1: RASS between 0 and -2Bidirectional Titration D 19-Mar-2022 18:27 dexmedeTOMIDine 400 microgram/ NaCL 0.9% 100 mL Premix Infusion with Bolus from Bag is not required Dicyclomine Tablet (BENTYL)DOSE = 20 mg Oral 2 Times a Day Before Meals 19-Mar-2022 12:24 dicyclomine 20 mg oral tablet 1 tab(s) orally 2 times a day Dicyclomine reconciled with the existing dicyclomine 20 mg oral tablet Docusate Capsule (COLACE)DOSE = 100 mg Oral 2 Times a Day 18-Mar-2022 10:04 Docusate is not required Gabapentin CapsuleDOSE = 200 mg Oral 2 Times a Day (more content not included)... Normal [facility] RENAL FUNCTION PANELon 03-20 Albumin [Mass/Vol] 4.0 g/dL Normal 3.4 - 5.0 [facility] Comment on above: Performed By: #### C BC #### [facility] [id number] [place] [address] Anion gap [Moles/Vol] 14 mmol/L Normal 10 - 20 [facility] Comment on above: Performed By: #### C BC #### [facility] [address] [place] [address] Calcium [Mass/Vol] 8.8 mg/dL Normal 8.6 - 10.6 [facility] Comment on above: Performed By: #### C BC #### [facility] [address] [place] [address] Chloride [Moles/Vol] 106 mmol/L Normal 98 - 107 [facility] Comment on above: Performed By: #### C BC #### [facility] [address] [place] [address] Creatinine [Mass/Vol] 0.98 mg/dL Normal 0.50 - 1.05 [facility] Comment on above: Performed By: #### C BC #### [facility] [address] [place] [address] GFR/1.73 sq M.predicted among non-blacks MDRD (S/P/Bld) [Vol rate/Area] 66 mL/min/{1.73_m2} Normal >90 [facility] Comment on above: Result Comment: CALC ULATIONS OF ESTIMATED GFR ARE PERFORMED USING THE 2020 CKD-EPI STUDY REFIT EQUATION WITHOUT THE RACE VARIABLE FOR THE IDMS-TRACEABLE CREATININE METHODS. https://jasn.asnjournals.org/content/early//ASN.53408 67376 Performed By: #### C BC #### [facility] [address] [place] [address] Glucose [Mass/Vol] 127 mg/dL High 74 - 99 [facility] Comment on above: Performed By: #### C BC #### [facility] [address] [place] [address] HCO3 (Bld) [Moles/Vol] 24 mmol/L Normal 21 - 32 [facility] Comment on above: Performed By: #### C BC #### [facility] [address] [place] [address] Phosphate [Mass/Vol] 5.0 mg/dL High 2.5 - 4.9 [facility] Comment on above: Result Comment: The performance characteristics of phosphorus testing in heparinized plasma have been validated by the individual laboratory site where testing is performed. Testing on heparinized plasma is not approved by the FDA; however, such approval is not necessary. Performed By: #### C BC #### [place] [address] [place] [address] Potassium [Moles/Vol] 4.2 mmol/L Normal 3.5 - 5.3 [facility] Comment on above: Performed By: #### C BC #### [facility] [address] [place] [address] Sodium [Moles/Vol] 140 mmol/L Normal 136 - 145 [facility] Comment on above: Performed By: #### C BC #### [facility] [address] [place] [address] Urea nitrogen [Mass/Vol] 15 mg/dL Normal 6 - 23 [facility] Comment on above: Performed By: #### C BC #### [facility] [address] [place] [address] Radiologyon 03-20-2022 XR Chest Single view Normal -N [facility] [facility] [address] DO Work Phone: Renal Function Panelon 03-20 Albumin BCP dye [Mass/Vol] 4.0 g/dL 3.4 - 5.0 [facility] [facility] [address] DO Work Phone: [phone] Anion gap [Moles/Vol] 14 mmol/L 10 - 20 [facility] [facility] [address] DO Work Phone: [phone] Calcium [Mass/Vol] 8.8 mg/dL 8.6 - 10.6 [facility] [facility] [address] DO Work Phone: [phone] Chloride [Moles/Vol] 106 mmol/L 98 - 107 -[facility] [facility] [address] DO Work Phone: [phone] CO2 [Moles/Vol] 24 mmol/L 21 - 32 [facility] [facility] [address] DO Work Phone: [phone] Creatinine [Mass/Vol] 0.98 mg/dL See Below [facility] [address] DO Work Phone: Comment on above: Reference Range: 0.5 0 - 1.05 Glucose [Mass/Vol] 127 mg/dL above high threshold 74 - 99 [facility] DO Work Phone: Phosphate [Mass/Vol] 5.0 mg/dL above high threshold 2.5 - 4.9 [facility] DO Work Phone: [phone] Comment on above: The performance missy acteristics of phosphorus testing in heparinized plasma have been validated by the individual laboratory site where testing is performed. Testing on heparinized plasma is not approved by the FDA; however, such approval is not necessary. Potassium [Moles/Vol] 4.2 mmol/L 3.5 - 5.3 [facility] [facility] [address] DO Work Phone: Sodium [Moles/Vol] 140 mmol/L 136 - 145 [facility] [facility] 250 DO Work Phone: Urea nitrogen [Mass/Vol] 15 mg/dL 6 - 23 [facility] Work Phone: Renal Function Panel 66 {mL/min/1.73m2} >[address] [facility] [address] DO Work Phone: Comment on above: CALCULATIONS OF JT MATED GFR ARE PERFORMED USING THE 2020 CKD-EPI STUDY REFIT EQUATION WITHOUT THE RACE VARIABLE FOR THE IDMS-TRACEABLE CREATININE METHODS.https://jasn.asnjournals.org/content//A SN.2608216975 TH CHEST 1 VIEWon 03-20-2022 TH CHEST 1 VIEW Patient Name: VIRGILIO JOHNSON STUDY: CHEST 1 VIEW; 03/20/2022 6:56 am INDICATION: s/p TAVR . COMPARISON: Chest radiograph dated 03/19/2022nd CT scan 03/08/22 ACCESSION NUMBER(S): [id number] ORDERING CLINICIAN: ABDIAZIZ NASH FINDINGS: AP radiograph of the chest. There is better patient centering on present examination. Interval extubation. Status post TAVR with poorly visualized aortic stent graft. CARDIOMEDIASTINAL SILHOUETTE: The cardiomediastinal silhouette is mildly enlarged and grossly unchanged, allowing for differences in patient positioning. No evidence of pneumomediastinum. LUNGS: Better inspiratory effort on present examination resulting in improvement of bronchovascular crowding. There is no surya pulmonary edema. There is improved but residual mild bibasilar presumed atelectasis. Small right pleural effusion is not excluded. ABDOMEN: No remarkable upper abdominal findings. BONES: No acute osseous abnormality. IMPRESSION: 1. Better inspiratory effort resulting in improvement lung aeration. Mild bibasilar presumed atelectasis with or without small right pleural effusion. 2. Status post TAVR. Electronically signed by: RUPERTO CROWELL MD Normal [facility] ACT-LOW RANGEon 03-19-2022 ACT-LOW RANGE 292 SECONDS High 89 - 169 [facility] Comment on above: Result Comment: Note new reference range as of 10/20/2018. Target ACT range will vary based on the patient population, clinical status, and surgical intervention occurring. Performed By: #### A CTLR #### [facility] [address] [place] [address] ACT-LOW RANGE 209 SECONDS High 89 - 169 [facility] Comment on above: Result Comment: Note new reference range as of 10/20/2018. Target ACT range will vary based on the patient population, clinical status, and surgical intervention occurring. Performed By: #### A CTLR #### [facility] [address] [place] [address] Admission Risk Screen - Adul ton 03-19-2022 Admission Risk Screen - Adult Allergies: Allergies: Brimonidine Tartrate: Unknown Cosopt: Unknown levalbuterol: Unknown penicillin: Unknown timolol: Unknown Trusopt: Unknown Patient Verification: New W ID Band Applied in my Departmentyes Patient Identity Verified Bydriver's license/state ID ID Band FULL Name, include Middle, spelling matches patient's ID used for verificationyes ID Band Matches Patient ID used for Verficationyes ID Band MRN Matches EMR MRNyes Visitor Restriction: Coronavirus Visitor Restriction: Reasonable restrictions to in-person visitors will be observed due to current coronavirus pandemic. Travel History: COVID-19 Screening Completedno exposure or symptoms Travel or Exposure Past 30 DaysNO travel to International locations in the past 30 days Ebola AlertFor Ebola-like Symptoms: Isolate Patient and Notify Provider/Care Management Coordinator For Contact: Notify Provider/Care Management Coordinator Advance Directive: Advance Directive/DNRno Advance Directive Information Givenpatient/family declined [place] Fall Screen: History of falling (immediate or previous)yes (25) Secondary Diagnosisyes (15) Intravenous Therapy/ Heparin/Saline Lockyes (20) Gait/Transferringnormal/ bedrest/wheelchair (0) Ambulatory Aidsnone/bedrest/nurse assist (0) Mental Statusoriented to own ability (0) Score: Low risk (<25). Moderate risk (25-44). High risk (>44).60 [place] InterventionsHIGH INTERVENTIONS *Low and Moderate Interventions Plus: * supervised toileting at all times Family Violence Screen: Are you or have you been threatened or abused physically, emotionally, or sexually by anyoneunable to assess Do you feel UNSAFE going back to the place where you are livingunable to assess Clinical assessment: Are there any apparent signs of injuries/behaviors that could be related to abuse/neglectunable to assess Social Service Consult for abuse/neglect needed this visitno Functional Screen: Functional Screen: In the recent/past 2-4 weeks, patient or family have noticedno issues that require a speech/language consult at this time AM-PAC- Basic Mobility/Daily Activity: Patient baseline bedboundno Learning Assessment (Patient): Patient is Able to be Assessed for Learningno Reason Unable to Assessintubated Learning Assessment (Other Learner): Other learner availableno Depression Screen: During the past month, have you often been bothered by feeling down, depressed or hopelessunable to assess During the past month, have you often had little interest or pleasure in doing thingsunable to assess Have you had any thoughts of harming anyone elseunable to assess [place] Suicide: Risk Screen Not Applicable/Able to Answerable to be screened In the Past Month: Have you wished you were or could go to sleep and not wake upno In the Past Month: Have you had any actual thoughts of killing yourselfno Lifetime: Have you ever done, started to do, or prepared to do anything to end your lifeno [place] Suicide Risknegative Adult Nutrition Screen: Have you recently lost weight without tryingunsure Have you been eating poorly because of a decreased appetiteyes Malnutrition Screening Tool Score3 Malnutrition Screening Tool RiskMST = 0 or 1 Not at risk. Eating well with little or no weight loss Nutrition Consult needed this visitno Can Patient Participate in Room Serviceyes Patient requires Paper Dishes/Plastic Utensilsno Pain Screen: Pain ScaleCognitively Impaired Pain Assessment Tool Pain Scale Educationunable to educate Reasons for inability to educatecurrent condition Current Pain Level0 = None Acceptable Pain Level0 = None Expression of Pain (nonverbal)none Chronic Painunable to assess Spiritual Screen: Are there any cultural, spiritual, yazidi practices/values/needs that are important for us to knowunable to assess CAGE: Is this an injured patient at a Trauma Center ([facility]/[place] /[place]): no Vaccinations: Vaccination - Influenza Vaccination Screen: Is it flu season (between and October 15)Yes Screening for identified contraindications to influenza vaccinationpatient already received vaccine this season Vaccination - Pneumonia Vaccination Screen: Patient has received a previous pneumonia vaccine:no/unknown... Immunocompetent persons with underlying chronic conditions or reside in oil heaterman care facilitiesnone of these conditions Persons with Functional or Anatomic Asplenianone of these conditions Immunocompromised Personsnone of these conditions Pneumonia vaccine NOT indicated due to:patient DOES NOT have a condition that indicates vaccination Remi: Skin - Remi Scale: Remi: Sensory Perception (response to environment)(2) very limited Remi: Moisture (degree skin exposed to moisture)(4) rarely moist Remi: Activity (ability to walk)(1) bedfast Remi: Mobility (amount/contr (more content not included)... Normal [facility] CBCon 03-19-2022 Erythrocyte distribution width (RBC) [Ratio] 13.6 % Normal 11.5 - 14.5 [facility] Comment on above: Performed By: #### C BC ####[id number] [place] [address] Hematocrit (Bld) [Volume fraction] 31.4 % Low 36.0 - 46.0 [facility] Comment on above: Performed By: #### C BC ####[id number] [place] [address] Hemoglobin (Bld) [Mass/Vol] 10.6 g/dL Low 12.0 - 16.0 [facility] Comment on above: Performed By: #### C BC ####[id number] [place] [address] MCHC (RBC) [Mass/Vol] 33.8 g/dL Normal 32.0 - 36.0 [facility] Comment on above: Performed By: #### C BC ####[id number] [place] [address] MCV (RBC) [Entitic vol] 88 fL Normal 80 - 100 [facility] Comment on above: Performed By: #### C BC ####[id number] [place] [address] NUCLEATED RBC 0.0 /100 WBC Normal 0.0-0.0 [facility] Comment on above: Performed By: #### C BC ####[id number] [place] [address] Platelets (Bld) [#/Vol] 257 10*3/uL Normal 150 - 450 [facility] Comment on above: Performed By: #### C BC ####[id number] [place] [address] RBC 3.56 x10E12/L Low 4.00 - 5.20 [facility] Comment on above: Performed By: #### C BC ####[id number] [place] [address] WBC (Bld) [#/Vol] 10.7 10*3/uL Normal 4.4 - 11.3 [facility] Comment on above: Performed By: #### C BC ####[id number] [place] [address] COAGULATION SCREENon 022 aPTT Coag (Bld) [Time] 28 s Normal 26 - 39 [facility] Comment on above: Result Comment: THE APTT IS NO LONGER USED FOR MONITORING UNFRACTIONATED HEPARIN THERAPY. FOR MONITORING HEPARIN THERAPY, USE THE HEPARIN ASSAY. Performed By: #### C OAGS ####[id number] [place] [address] PT Coag (PPP) [Time] 11.9 s Normal 9.8 - 13.4 [facility] Comment on above: Performed By: #### C OAGS ####[id number] [place] [address] PT, INR 1.0 Normal 0.9 - 1.1 [facility] Comment on above: Performed By: #### C OAGS ####[id number] [place] [address] Clinical Event Note-s/p succ essful 29 mm evolut FXon 03-19-2022 Clinical Event Note-s/p successful 29 mm evolut FX Clinical Event: Clinical Event Note: Topics/p successful 29 mm evolut FX Details Indication: Severe Access 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 s/p successful 29 mm evolut FX LVEDP 18 mild PVL No effusion Conclusion Extubation in the CICU after groin recovery followed by 324mg by mouth aspirin once able to safely swallow. Monitor tele Monitor access sites for bleeding SAPT upon discharge TTE tomorrow page structural team for any concerning clinical events. Electronic Signatures: Sharon Martin ( (Fellow)) (Signed 19-Mar-2022 14:57) Authored: Clinical Event Note Last Updated: 19-Mar-2022 14:57 by Sharon Martin ( (Fellow)) Normal [facility] Echocardiogramon 03-19-2022 Echocardiography [facility], [address] [place] [address] and TRANSTHORACIC ECHOCARDIOGRAM REPORT Patient Name: VIRGILIO Conroy ELIZABETH Reading Physician: [id number] Tru Reyes MD Study Date: 03/19/2022 Referring ABDIAZIZ NASH Physician: MRN/PID: [id number] PCP: Accession/Order#: [id number] [facility] [employer] Location: Date of : 1960 Fellow: Gender: F Nurse: Admit Date: 03/19/2022 Decontaminator: David Bowens [facility] Admission Status: Inpatient - Additional Staff: Routine Height: 172.72 cm CC Report to: CICU [facility] Weight: 114.31 kg Study Type: Echocardiogram BSA: 2.25 m2 Blood Pressure: 162 /55 mmHg Diagnosis/ICD: I35.0-Nonrheumatic aortic (valve) stenosis Indication: TAVR Periprocedure Procedure/CPT: Echo Limited-77501; Color Doppler-64284; Doppler Limited-24802 Patient History: Valve Disorders: Aortic Stenosis. Pertinent History: Dyspnea and HTN. Study Detail: The following Echo studies were performed: 2D, M-Mode, Doppler and color flow. Technically challenging study due to body habitus and patient lying in supine position. The patient is intubated. PHYSICIAN INTERPRETATION: Left Ventricle: The left ventricular systolic function is normal, with an estimated ejection fraction of 60%. The left ventricular cavity size is normal. There is mild concentric left ventricular hypertrophy. Abnormal (paradoxical) septal motion, consistent with an intraventricular conduction delay. Left ventricular diastolic filling was not assessed. Left Atrium: The left atrium is enlarged. Right Ventricle: The right ventricle is normal in size. There is normal right ventricular global systolic function. Right Atrium: The right atrium is normal in size. Aortic Valve: The aortic valve is probably trileaflet. There is moderate aortic valve cusp calcification. There is evidence of moderate to severe aortic valve stenosis. There is mild aortic valve regurgitation. The peak instantaneous gradient of the aortic valve is 52.4 mmHg. The mean gradient of the aortic valve is 33.0 mmHg. Mitral Valve: The mitral valve is normal in structure. There is mild mitral annular calcification. There is mild mitral valve regurgitation. Tricuspid Valve: The tricuspid valve is structurally normal. There is mild tricuspid regurgitation. Pulmonic Valve: The pulmonic valve is not well visualized. There is trace pulmonic valve regurgitation. Pericardium: There is a trivial pericardial effusion. Aorta: The aortic root was not well visualized. There is mild dilatation of the ascending aorta. There is no dilatation of the aortic root. Post Transcatheter Aortic Valve Placement (TAVR): The peak instantaneous gradient of the aortic valve is 23.2 mmHg. The mean gradient of the aortic valve is 12.0 mmHg. There is a Medtronic transcatheter aortic valve replacement, with a 29 mm reported size. The left ventricular systolic function is normal. The left ventricular cavity size is normal. There is mild mitral valve regurgitation. There is no prosthetic aortic valve regurgitation. There is mild iris-prosthetic aortic valve regurgitation. There is a trivial pericardial effusion. CONCLUSIONS: 1. Poorly visualized anatomical structures due to suboptimal image quality. 2. Left ventricular systolic function is normal with a 60% estimated ejection fraction. 3. There is moderate aortic valve cusp calcification. 4. Moderate to severe aortic valve stenosis. 5. Mild aortic valve regurgitation. 6. Post TAVR - there is a transcatheter aortic valve replacement. QUANTITATIVE DATA SUMMARY: 2D MEASUREMENTS: Normal Ranges: IVSd: 1.40 cm (0.6-1.1cm) LVPWd: 1.20 cm (0.6-1.1cm) LVIDd: 5.00 cm (3.9-5.9cm) LVIDs: 3.70 cm LV Mass Index: 116.1 g/m2 LV % FS 26.0 % M-MODE MEASUREMENTS: Normal Ranges: Ao Root: 3.30 cm (2.0-3.7cm) LAs: 4.10 cm (2.7-4.0cm) AORTA MEASUREMENTS: Normal Ranges: Ao Sinus, d: 3.40 cm (2.1-3.5cm) Asc Ao, d: 3.70 cm (2.1-3.4cm) LV SYSTOLIC FUNCTION BY 2D PLANIMETRY (MOD): Normal Ranges: EF-A4C View: 57.7 % (>55%) EF-A2C View: 70.1 % EF-Biplane: 64.7 % AORTIC VALVE: Normal Ranges: AoV Vmax: 3.62 m/s (<1.7m/s) AoV Vmax Post TAVR: 2.41 m/s (<1.7m/s) AoV Peak P.4 mmHg (<20mmHg) AoV Peak PG Post TAVR: 23.2 mmHg (<20mmHg) AoV Mean P.0 mmHg (1.7-11.5mmHg) AoV Mean PG Post TAVR: 12.0 mmHg (1.7-11.5mmHg) LVOT Max Gianfranco: 1.52 m/s (<1.1m/s) LVOT Max Gianfranco Post TAVR: 1.93 m/s (<1.1m/s) AoV VTI: 92.00 cm (18-25cm) AoV VTI Post TAVR: 53.40 cm (18-25cm) LVOT VTI: 31.60 cm LVOT VTI Post TAVR: 39.30 cm LVOT Diameter: 2.00 cm (1.8-2.4cm) LVOT Diameter Post TAVR: 2.00 cm (1.8-2.4cm) AoV Area, VTI: 1.08 cm2 (2.5-5.5cm2) AoV Area, VTI Post TAVR: 2.31 cm2 (2.5-5.5cm2) AoV Area,Vmax: 1.32 cm2 (2.5-4.5cm2) AoV Area,Vmax Post TAVR: 2.52 cm2 (2.5-4.5cm2) AoV Dimensionless Index: 0.34 AoV Dimensionless Index Post TAVR: 0.74 [id number] Tru Reyes MD Electronically si (more content not included)... Normal [facility] Electrocardiogram 12 Leadon 03-19-2022 Electrocardiogram 12 Lead Ventricular Rate 69 Atrial Rate 300 QRS Duration 100 Q-T Interval 388 QTC Calculation(Bazett) 415 P Chichester 56 R Chichester -12 T Chichester 112 QRS Count 11 Q Onset 219 P Onset 118 P Offset 178 T Offset 413 QTC Fredericia 406 Diagnosis Class Abnormal Diagnosis Normal sinus rhythm LVH with repolarization abnormality Nonspecific ST abnormality Abnormal ECG When compared with ECG of 19-MAR-2022 15:15, Atrial flutter has replaced Sinus rhythm ST less elevated in Inferior leads ST no longer depressed in Anterior-lateral leads Nonspecific T wave abnormality has replaced inverted T waves in Inferior leads QT has shortened Confirmed by Jack Wrighto ([id number]) on 03/23/2022 4:57:26 PM Normal [facility] Electrocardiogram 12 Lead Ventricular Rate 88 Atrial Rate 88 P-R Interval 220 QRS Duration 90 Q-T Interval 434 QTC Calculation(Bazett) 525 R Chichester -1 T Chichester -29 QRS Count 14 Q Onset 220 P Onset 110 P Offset 194 T Offset 437 QTC Fredericia 493 Diagnosis Class Abnormal Diagnosis Poor data quality Sinus rhythm with 1st degree A-V block LVH with repolarization abnormality ST elevation consider inferior injury or acute infarct Prolonged QT interval or tu fusion, consider myocardial disease, electrolyte imbalance, or drug effects ACUTE OH / STEMI Abnormal ECG When compared with ECG of 19-MAR-2022 09:48, Significant changes have occurred Confirmed by Thal Vinay ([id number]) on 03/23/2022 4:57:14 PM Normal [facility] Electrocardiogram 12 Lead Ventricular Rate 64 Atrial Rate 64 P-R Interval 212 QRS Duration 108 Q-T Interval 454 QTC Calculation(Bazett) 468 P Chichester 63 R Chichester -5 T Chichester -66 QRS Count 11 Q Onset 210 P Onset 104 P Offset 163 T Offset 437 QTC Fredericia 463 Diagnosis Class Abnormal Diagnosis Sinus rhythm with 1st degree A-V block Voltage criteria for left ventricular hypertrophy Nonspecific T wave abnormality Abnormal ECG When compared with ECG of 22-AUG-2022 10:18, No significant change was found Confirmed by Mundo Emery ([id number]) on 03/24/2022 5:38:44 PM Normal [facility] Laboratory - Coagulationon 0 03-19-2022 aPTT Coag (PPP) [Time] 28 s 26 - 39 [facility] Arpita franz 250 DO Work Phone: Comment on above: THE APTT IS NO LONGE R USED FOR MONITORING UNFRACTIONATED HEPARIN THERAPY. FOR MONITORING HEPARIN THERAPY, USE THE HEPARIN ASSAY. INR Coag (PPP) [Relative time] 1.0 {INR} 0.9 - 1.1 [facility] Arpita franz 250 DO Work Phone: PT Coag (PPP) [Time] 11.9 s 9.8 - 13.4 [facility] Arpita franz 250 DO Work Phone: Laboratory - Hematology and Cell countson 03-19-2022 Erythrocyte distribution width (RBC) [Ratio] 13.6 % See Below [facility] Arpita Eugene DO Work Phone: Comment on above: Reference Range: 11. 5 - 14.5 Hematocrit (Bld) [Volume fraction] 31.4 % below low threshold See Below [facility] Arpita Eugene DO Work Phone: Comment on above: Reference Range: 36. 0 - 46.0 Hemoglobin (Bld) [Mass/Vol] 10.6 g/dL below low threshold See Below [facility] Arpita Eugene DO Work Phone: Comment on above: Reference Range: 12. 0 - 16.0 MCHC (RBC) [Mass/Vol] 33.8 g/dL See Below [facility] Arpita Eugene DO Work Phone: Comment on above: Reference Range: 32. 0 - 36.0 MCV (RBC) [Entitic vol] 88 fL 80 - 100 [facility] Arpita Eugene DO Work Phone: Platelets (Bld) [#/Vol] 257 10*3/uL 150 - 450 [facility] 250 DO Work Phone: RBC (Bld) [#/Vol] 3.56 {x10E12/L} below low threshold See Below [facility] 250 DO Work Phone: Comment on above: Reference Range: 4.0 0 - 5.20 WBC (Bld) [#/Vol] 10.7 10*3/uL 4.4 - 11.3 MP-No rth [place] [facility] 250 DO Work Phone: MAGNESIUMon 03-19-2022 Magnesium [Mass/Vol] 1.43 mg/dL Low 1.60 - 2.40 [facility] Comment on above: Performed By: #### C OAGS #### [facility] [address] [place] [address] Magnesium, Serumon 2 Magnesium [Mass/Vol] 1.43 mg/dL below low threshold See Below [facility] 250 DO Work Phone: Comment on above: Reference Range: 1.6 0 - 2.40 No Panel Informationon 03-19 0.0 {/100_WBC} 0.0-0.[address] [facility] 250 DO Work Phone: [email or web address] [email or web address]: [email or web address]?RetrieveTestByDateT ld?[email or web address]=[id number]& Date=08-26-2021&Time=15% 3a16%3a03%3a00&TestType= ECG&Site=1&OutputType=PD F&Ext=PDF [facility] 250 DO Work Phone: Normal sinus rhythm -No rth [place] [facility] 250 DO Work Phone: Abnormal [facility] 250 DO Work Phone: [phone] [facility] 250 DO Work Phone: [phone] [facility] 250 DO Work Phone: [phone] [facility] 250 DO Work Phone: [phone] [facility] 250 DO Work Phone: [phone] 1 [facility] 250 DO Work Phone: [phone] [facility] 250 DO Work Phone: [phone] 1 [facility] 250 DO Work Phone: [phone] [facility] 250 DO Work Phone: [phone] 1 [facility] 250 DO Work Phone: [phone] 1 [facility] 250 DO Work Phone: [phone] 1 [facility] 250 DO Work Phone: [phone] 1 [facility] 250 DO Work Phone: [phone] 1 [facility] 250 DO Work Phone: [phone] 1 [facility] 250 DO Work Phone: [phone] [email or web address]: [email or web address] .[email or web address]?RetrieveTestByDateT ld?ZvzzxseUQ=[id number]& Date=08-26-2021&Time=15% 3a15%3a04%3a00&TestType= ECG&Site=1&OutputType=PD F&Ext=PDF [facility] 250 DO Work Phone: [phone] Poor data quality [facility] 250 DO Work Phone: [phone] Abnormal [facility] 250 DO Work Phone: [phone] [facility] 250 DO Work Phone: [phone] 1 -[facility] 250 DO Work Phone: [phone] 1 -[facility] 250 DO Work Phone: [phone] 1 [facility] 250 DO Work Phone: [phone] 1 [facility] 250 DO Work Phone: [phone] 1 [facility] 250 DO Work Phone: [phone] -[facility] 250 DO Work Phone: [phone] [facility] 250 DO Work Phone: [phone] 1 [facility] 250 DO Work Phone: [phone] [facility] 250 DO Work Phone: [phone] 1 [facility] 250 DO Work Phone: [phone] 1 [facility] 250 DO Work Phone: [phone] {SECONDS} above high threshold 89 - 169 -[facility] 250 DO Work Phone: [phone] Comment on above: Note new reference r sara as of 10/20/2018. Target ACT range will vary based on the patient population, clinical status, and surgical intervention occurring. 209 {SECONDS} above high threshold 89 - 169 -[facility] 250 DO Work Phone: Comment on above: Note new reference r sara as of 10/20/2018. Target ACT range will vary based on the patient population, clinical status, and surgical intervention occurring. [facility] 250 DO Work Phone: [email or web address] [email or web address]: [email or web address]?RetrieveTestByDateT ld?[email or web address]=[id number]& Date=08-26-2021&Time=09% 3a48%3a09%3a00&TestType= ECG&Site=1&OutputType=PD F&Ext=PDF [facility] 250 DO Work Phone: [phone] Sinus rhythm with 1s t degree A-V block [facility] 250 DO Work Phone: [phone] Abnormal [facility] 250 DO Work Phone: [phone] [facility] 250 DO Work Phone: [phone] 1 [facility] 250 DO Work Phone: [phone] 1 [facility] 250 DO Work Phone: [phone] 1 [facility] 250 DO Work Phone: [phone] 1 [facility] 250 DO Work Phone: [phone] 1 [facility] 250 DO Work Phone: [phone] [facility] 250 DO Work Phone: [phone] [facility] 250 DO Work Phone: [phone] 1 [facility] 250 DO Work Phone: [phone] 1 [facility] 250 DO Work Phone: [phone] 1 [facility] 250 DO Work Phone: [phone] 1 [facility] 250 DO Work Phone: [phone] 1 [facility] 250 DO Work Phone: [phone] 1 [facility] 250 DO Work Phone: [phone] Order Reconciliationon 03-19 Order Reconciliation Page 1 Admission Reconciliation Document Reconciliation Type: Admission requested on behalf of Abdiaziz Nash (Advanced Practice Nurse) done by Abdiaziz Nash ([facility]) Admission - Reconciliation: 19-Mar-2022 12:25 by: Abdiaizz Nash ([facility]) Home MedicationsEnteredLast Dose TakenReconciled with current Order Reconciliation Comment/ Additional Information amLODIPine 5 mg oral tablet 1 tab(s) orally once a [id number] 2 8:00 AM Reviewed and Held atorvastatin 10 mg oral tablet 1 tab(s) orally once a [id number]-Mar-2022 8:00 PM Atorvastatin Tablet (LIPITOR)DOSE = 10 mg Oral At Bedtimeatorvastatin 10 mg oral tablet continued as the inpatient order Atorvastatin dicyclomine 20 mg oral tablet 1 tab(s) orally 2 times a [id number]-Mar-2022 8:00 PM Dicyclomine Tablet (BENTYL)DOSE = 20 mg Oral 2 Times a Day Before Mealsdicyclomine 20 mg oral tablet continued as the inpatient order Dicyclomine gabapentin 100 mg oral capsule 2 cap(s) orally 2 times a [id number]-Mar-2022 8:00 PM Gabapentin CapsuleDOSE = 200 mg Oral 2 Times a Day gabapentin 100 mg oral capsule continued as the inpatient order Gabapentin ibuprofen 200 mg oral tablet 1 tab(s) orally 2 times a day, As Needed Reviewed and Held losartan-hydrochlorothia zide 100 mg-25 mg oral tablet 1 tab(s) orally once a [id number]-851 2 8:00 AM Reviewed and Held meloxicam 15 mg oral tablet 1 tab(s) orally once a [id number]-228 2 8:00 AM Reviewed and Held rOPINIRole 0.25 mg oral tablet 1 tab orally in the morning, 1 during the lunch time, 2 tabs in evening and 2 tabs at bedtime. 8:00 PM rOPINIRole (REQUIP) TabletDOSE = 0.25 mg Oral ( every 1 day: 08:00, 12:00 )rOPINIRole 0.25 mg oral tablet continued as the inpatient order rOPINIRole (REQUIP) tiZANidine 4 mg oral tablet 1 tab(s) orally once a day (at bedtime)19-Mar-2022 8:00 PM tiZANidine Tablet (ZANAFLEX)DOSE = 4 mg Oral At Bedtime tiZANidine 4 mg oral tablet continued as the inpatient order tiZANidine Additional Current Orders Acetaminophen Tablet (TYLENOL)DOSE = 650 mg Oral Every 6 Hours, PRN Pain - Mild (1-3)Clinician Notes: When tolerating PO Aspirin Enteric Coated Enteric Coated Tablet (ECOTRIN)DOSE = 81 mg Oral Daily Atropine Injectable DOSE = 1 mg IntraVenous Push Once, PRN Vagal Reaction Diet 3 grams Sodium Special Instructions: advance as tolerated s/p TAVR Docusate Capsule (COLACE)DOSE = 100 mg Oral 2 Times a Day Heparin SubCutaneous DOSE = 5,000 unit(s) SubCutaneous Every 8 Hours Lactated Ringers Infusion IV Bag Volume = 1,000 mL Run at: 75 mL/hr IntraVenous May Participate in Room Service Yes Ondansetron Injectable (ZOFRAN)DOSE = 4 mg IntraVenous Push Every 8 Hours, PRN Nausea Pantoprazole Enteric Coated Tablet (PROTONIX)DOSE = 40 mg Oral Daily Perflutren Lipid Microsphere (Activated) 1.3 mL / NaCL 0.9% T.V. 10 mL Injectable DOSE = 0.5 mL IntraVenous Push OnceClinician Notes: 1. Dilute 1.3 mL of activated DEFINITY with 8.7 mL of normal saline in a 10 mL syringe.2. Inject 0.5 mL of diluted DEFINITY when notified the images/film are unclear to enhance view of Left Ventricular borders.3. Repeat 0.5 mL of DEFINITY until clear images are obtained, not to exceed 10 mLs.4. Once images are obtained or limit of medication is reached, flush line with 10 mL of Normal Saline. Perflutren Lipid Microsphere (Activated) 1.3 mL / NaCL 0.9% T.V. 10 mL Injectable DOSE = 0.5 mL IntraVenous Push OnceClinician Notes: 1. Dilute 1.3 mL of activated DEFINITY with 8.7 mL of normal saline in a 10 mL syringe.2. Inject 0.5 mL of diluted DEFINITY when notified the images/film are unclear to enhance view of Left Ventricular borders.3. Repeat 0.5 mL of DEFINITY until clear images are obtained, not to exceed 10 mLs.4. Once images are obtained or limit of medication is reached, flush line with 10 mL of Normal Saline. rOPINIRole (REQUIP) TabletDOSE = 0.5 mg Oral ( every 1 day: 17:00, 22:00 ) Sodium Chloride 0.9% Injectable Flush via Peripheral LineVolume = 3 mL IntraVenous Flush Every 8 Hours and as Needed traMADol Tablet (ULTRAM)DOSE = 50 mg Oral Every 6 Hours, PRN Pain - Mod (4-6) Vancomycin IV Piggy Back in Sodium Chloride 0.9% 250 mLDOSE = 1,000 mg OnceRecommended Infusion Time: 1 hour(s) Normal [facility] Patient Profile - Adult v2on 03-19-2022 Patient Profile - Adult v2 Profile: Initial Info: How to be Addressedteresa Spoken Language PreferredEnglish Stated Reason for Admissionuta Wants Family/Rep Notified of Admissionn/a; family present Notify PCPdeferred, unable to answer Informed of Patient Visiting Rightsdeferred Arrived Fromhospital Patient Belongingsnone Medications Brought to Hospitalno General Health: Weight in kg117 kilogram(s) Weight in tom689.9 pound(s) Weight Methodstated Scale Typebed Height in cm165.1 centimeter(s) Height in feet5 feet Height in inches5 inch(es) Height Methodestimated BMI (kg/m2)42.923 square meter RSP Based Care: How would you like to participate in your careuta What is the number one concern for you during this hospitalizationuta What is the most important thing we can do to support you during this hospitalizationuta Is there anything we need to know to best care for youuta Substance: Smoking Statusunable to assess Health Mgmt: Symptoms/Conditions Managed at Homenone Barriers to Managing Healthnone Relationship/Environ: Significant Exposurenone Resource/Environmental Concernsnone Primary Source of Support/Comfortparent Lives Withalone Living Arrangementshouse Services Anticipated at Transitionnone Anticipated Transition Tohome Significant IndicatorsComplete Information Review: Allergies, Home Meds and Significant Events have been Reviewed and Verified with Patient/Familyyes ALLERGY, INTOLERANCE, ADVERSE EVENT: Allergies: Brimonidine Tartrate: Drug, Unknown, Active Cosopt: Drug, Unknown, Active levalbuterol: Drug, Unknown, Active penicillin: Drug, Unknown, Active timolol: Drug, Unknown, Active Trusopt: Drug, Unknown, Active Problem List: Additional Dx: Primary hypertension: Catalog Name: Essential (primary) hypertension S/P TAVR (transcatheter aortic valve replacement): Catalog Name: Presence of prosthetic heart valve Severe calcific aortic valve stenosis: Catalog Name: Nonrheumatic aortic (valve) stenosis Aortic valve stenosis: Onset Date: 08-Mar-2022, Catalog Name: Nonrheumatic aortic (valve) stenosis Electronic Signatures: Akilah Villa (TOMY) (Signed 19-Mar-2022 18:02) Authored: Initial Info, General Health, [facility] Based Care, Substance, Health Mgmt, Relationship/Environ, Additional Information Last Updated: 19-Mar-2022 18:02 by Akilah Villa (TOMY) Normal [facility] RENAL FUNCTION PANELon 03-19 Albumin [Mass/Vol] 3.8 g/dL Normal 3.4 - 5.0 [facility] Comment on above: Performed By: #### R ENAL #### [facility] [address] [place] [address] Anion gap [Moles/Vol] 17 mmol/L Normal 10 - 20 [facility] Comment on above: Performed By: #### R ENAL #### [facility] [address] [place] [address] Calcium [Mass/Vol] 8.5 mg/dL Low 8.6 - 10.6 [facility] Comment on above: Performed By: #### R ENAL #### [facility] [address] [place] [address] Chloride [Moles/Vol] 105 mmol/L Normal 98 - 107 [facility] Comment on above: Performed By: #### R ENAL #### [facility] [address] [place] [address] Creatinine [Mass/Vol] 0.76 mg/dL Normal 0.50 - 1.05 [facility] Comment on above: Performed By: #### R ENAL #### [facility] [address] [place] [address] GFR/1.73 sq M.predicted among non-blacks MDRD (S/P/Bld) [Vol rate/Area] 89 mL/min/{1.73_m2} Normal >90 [facility] Comment on above: Result Comment: CALC ULATIONS OF ESTIMATED GFR ARE PERFORMED USING THE 2020 CKD-EPI STUDY REFIT EQUATION WITHOUT THE RACE VARIABLE FOR THE IDMS-TRACEABLE CREATININE METHODS. https://jasn.asnjournals.org/content//ASN.32789 32700 Performed By: #### R ENAL #### [facility] [address] [place] [address] Glucose [Mass/Vol] 112 mg/dL High 74 - 99 [facility] Comment on above: Performed By: #### R ENAL #### [place] [address] [place] [address] HCO3 (Bld) [Moles/Vol] 21 mmol/L Normal 21 - 32 [facility] Comment on above: Performed By: #### R ENAL #### [facility] [address] [place] [address] Phosphate [Mass/Vol] 4.3 mg/dL Normal 2.5 - 4.9 [facility] Comment on above: Result Comment: The performance characteristics of phosphorus testing in heparinized plasma have been validated by the individual laboratory site where testing is performed. Testing on heparinized plasma is not approved by the FDA; however, such approval is not necessary. Performed By: #### R ENAL #### [facility] [address] [place] [address] Potassium [Moles/Vol] 3.5 mmol/L Normal 3.5 - 5.3 [facility] Comment on above: Performed By: #### R ENAL #### [facility] [address] [place] [address] Sodium [Moles/Vol] 139 mmol/L Normal 136 - 145 [facility] Comment on above: Performed By: #### R ENAL #### [facility] [address] [place] [address] Urea nitrogen [Mass/Vol] 14 mg/dL Normal 6 - 23 [facility] Comment on above: Performed By: #### R ENAL #### [facility] [address] [place] [address] Radiologyon 03-19-2022 XR Chest Single view Normal [facility] Arpita franz 250 DO Work Phone: Renal Function Panelon 03-19 Albumin BCP dye [Mass/Vol] 3.8 g/dL 3.4 - 5.0 [facility] Work Phone: Anion gap [Moles/Vol] 17 mmol/L 10 - 20 [facility] Work Phone: Calcium [Mass/Vol] 8.5 mg/dL below low threshold 8.6 - 10.6 [facility] Work Phone: Chloride [Moles/Vol] 105 mmol/L 98 - 107 [facility] Work Phone: CO2 [Moles/Vol] 21 mmol/L 21 - 32 [facility] DO Work Phone: Creatinine [Mass/Vol] 0.76 mg/dL See Below [facility] Work Phone: Comment on above: Reference Range: 0.5 0 - 1.05 Glucose [Mass/Vol] 112 mg/dL above high threshold 74 - 99 [facility] Work Phone: Phosphate [Mass/Vol] 4.3 mg/dL 2.5 - 4.9 [facility] Work Phone: Comment on above: The performance missy acteristics of phosphorus testing in heparinized plasma have been validated by the individual laboratory site where testing is performed. Testing on heparinized plasma is not approved by the FDA; however, such approval is not necessary. Potassium [Moles/Vol] 3.5 mmol/L 3.5 - 5.3 [facility] Work Phone: Sodium [Moles/Vol] 139 mmol/L 136 - 145 [facility] 250 DO Work Phone: Urea nitrogen [Mass/Vol] 14 mg/dL 6 - 23 [facility] 250 DO Work Phone: Renal Function Panel 89 {mL/min/1.73m2} >[address] [facility] [address] [facility] DO Work Phone: Comment on above: CALCULATIONS OF JT MATED GFR ARE PERFORMED USING THE 2020 CKD-EPI STUDY REFIT EQUATION WITHOUT THE RACE VARIABLE FOR THE IDMS-TRACEABLE CREATININE METHODS.https://jasn.asnjournals.org/content//A SN.2944777791 TAVRon 03-19-2022 TAVR [facility], [employer], [address] [place] [address] Cardiovascular Catheterization Report Patient Name: VIRGILIO Rafiq Performing Physician: [id number] Roxann Winchester MD ELIZABETH Study Date: 03/19/2022 Verifying Physician: [id number] oRxann Winchester MD MRN/PID: [id number] 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 Procedure Description Comments: Mrs Johnson is a 62 year old female with symptomatic severe aortic stenosis diagnosed during work up for iris-operarive risk stratification for knee arthroplasty. CTA showed anatomic suitability for TAVR with a 29mm Evolut FX with low risk of coronary obstruction. This was preferred due to aorto-mitral calcification extending into the left ventricular outflow tract. She has resteless leg sndrome but tolerated coronary angiograms. After a multidisciplinary team discussion TAVR was offered. She presented for the procedure and while access was being obtained, she was tearful and kicking ker legs stating that she cannot keep them still for the procedure. This increased after bilateral femoral accesses and right internal jugular vein accesses were placed. Attemps to hold the legs and prevent harm to her were met with increased kicking and crying. We felt it was unsafe to continue the procedure and such, consent was obtained from her for elective intubation to safely allow TAVR under general anesthesia. After she was intubated and anesthetized and paralyzed. The 8F sheath in the RCFA was upsized to a 14F dry seal sheath. The coplanar and cusp overlap views were verfieied fluororscopically. The aortic valve was crossed in a standard fashion and through pigtail, Safari wire was delivered into the left ventricle. Balloon aortic valvuloplasty was perormed with a 18mm true balloon. Thereafter the 29mm Evolut FX was deployed at about 3mm depth. There was no conduction abnormalities during valve deployment. Transthoracic echocardiogram showed mean gradient 8mmHg, mild paravalvular regurgitation, no pericardial effusiion. All catheters and wires were removed. There was no apparent complications. She will be intubated for the durzation of her bedrest to minimze risk to herself from the arteriotomies with excessive lower extremity movements. Transcatheter Aortic Valve Replacement (TAVR): The right femoral artery was accessed using the transfemoral method. A 6 Fr sheath was inserted followed by the deployment of 2 Proglides. A 14 F [place] Sheath was inserted and sutured. The left femoral artery was accessed percutaneously and a 6 Vietnamese contralateral sheath was placed. A 7 Vietnamese temporary pacemaker was inserted through the right jugular vein and advanced to the right ventricular apex. Adequate pacing thresholds were obtained. After crossing the stenotic aortic valve, balloon aortic valvuloplasty was performed with an 18 x 45 mm True Dilatation. Evolut Fx 29 mm valve was successfully deployed under rapid ventricular pacing at 140 BPM. Transthoracic echo performed post valve deployment revealed trace/trivial mitral insufficiency and trace/trivial central aortic insufficiency and trace/trivial paravalvular aortic insufficiency. No device related events. No bleeding events occurred during the procedure. No vascular access complications were revealed. Access site was closed using 2 ProGlide devices. Hemostasis was achieved in the left femoral artery using a ProGlide device. Temporary pacing wire was removed in lab. Hemo Personnel: + -+ + Name Duty + -+ + Roxann Winchester MD, MD 1 + -+ + Keily Moon RN PROC NURSE 1 + -+ + Eugenie Haynes RT PROC DECISION SCIENCE ANALYST 1 + -+ + Negra Cruz RT PROC DECISION SCIENCE ANALYST 2 + -+ + Wiliam Jeffries MD FELLOW PHYS 1 + -+ + Sharon Martin MD FELLOW PHYS 2 + -+ + Sedation Time: + -+ + Sedation Start/End Times Time + -+ + Start 03/19/2022 11:55:55 + -+ + Drugs Fentanyl 50 mcg IV per physician for sed + -+ + End 03/19/2022 14:26:04 + -+ + Equipment Used: + (more content not included)... Normal [facility] TH CHEST 1 VIEWon 03-19-2022 TH CHEST 1 VIEW Patient Name: VIRGILIO JOHNSON STUDY: CHEST 1 VIEW; 03/19/2022 4:31 pm INDICATION: s/p TAVR . COMPARISON: CT 03/08/2022. ACCESSION NUMBER(S): [id number] ORDERING CLINICIAN: ABDIAZIZ NASH FINDINGS: AP radiograph of the chest was provided. Endotracheal tube terminating 4.5 cm above the juliane. Patient is status post TAVR. CARDIOMEDIASTINAL SILHOUETTE: Cardiomediastinal silhouette is slightly enlarged in size and configuration. LUNGS: There is left greater than right perihilar prominence which is likely due to vascular prominence. There is also left greater than right bibasilar hazy opacities with air bronchograms within it. There are coarse interstitial markings. No evidence of pneumothorax or sizable pleural effusion. ABDOMEN: No remarkable upper abdominal findings. BONES: No acute osseous changes. IMPRESSION: Perihilar and left infrahilar edema status post BARB. No pneumothorax. 1. . I personally reviewed the images/study and I agree with the findings as stated. This study was interpreted at [facility], [place], [place]. Electronically signed by: Julienne COOK MD Normal [facility] US THYROIDon 03-18-2022 US THYROID EXAMINATION: US THYR OID HISTORY: Non-toxic uninodular goiter COMPARISON: No relevant comparison available. FINDINGS: RIGHT LOBE: Normal size and echotexture; containing a 7 mm colloid cyst. Lobe size: 4.7 x 1.3 x 1.3 cm LEFT LOBE: Heterogeneous echotexture and contains a 25 x 25 x 22 mm TR 5 nodule within mid body and a 6 mm TR 3 nodule within superior pole. Lobe size: 5.3 x 2.7 x 2.4 cm ISTHMUS: Thickened and slightly heterogeneous. Thickness: 11 mm Other: Oval hypoechoic area anterior lateral to the carotid artery and jugular vein, 16 x 5 x 4 mm; possible lymph node. IMPRESSION: 1. Left thyroid lobe suspicious 2.5 cm TR 5 nodule. Ultrasound-guided tissue sampling is recommended. 2. Nonspecific hypoechoic structure anterior lateral to the carotid artery and jugular vein; suspected to represent an elongated, thin lymph node. Consider follow-up ultrasound evaluation in 3-4 months. The [employer] TI-RADS committee's white paper recommendations for thyroid lesions classified as TR5 (highly suspicious) are listed below: > 0.5 cm. Annual ultrasound follow-up for up to 5 years. > 1.0 cm. FNA. J. Am Laura Radiol 2017;14:587-595. Electronically authenticated by: YULIA AGUILA Date: 2022-03-18 10:01 Normal [facility] CBC AUTO DIFFon 03-12-2022 BASO # 0.0 103/ul Normal 0.0-0.1 [facility] Comment on above: Performed By: #### C BC #### [facility] [address] [address] [address] Luh Brown Basophils/100 WBC (Bld) 0.3 % Normal 0.2-2.0 [facility] Comment on above: Performed By: #### C BC #### [facility] [address] [place] [address] Dr. Luh Brown EO # 0.1 103/ul Normal 0.0-0.7 [facility] Comment on above: Performed By: #### C BC #### [facility] [address] [place] [address] Dr. Luh Brown Eosinophils/100 WBC (Bld) 2.1 % Normal 0.9-7.0 [facility] Comment on above: Performed By: #### C BC #### [facility] [address] [place] [address] Dr. Luh Brown Erythrocyte distribution width (RBC) [Ratio] 13.3 % Normal 11.0-15.0 [facility] Comment on above: Performed By: #### C BC #### [facility] [address] [place] [address] Dr. Luh Brown Hematocrit (Bld) [Volume fraction] 34.3 % Critically low 36.0-48.0 [facility] Comment on above: Performed By: #### C BC #### [facility] [address] [place] [address] Dr. Luh Brown Hemoglobin (Bld) [Mass/Vol] 11.3 g/dL Critically low 12.0-16.0 [facility] Comment on above: Performed By: #### C BC #### [facility] [address] [place] [address] Dr. Luh Brown IG # 0.03 10e3/ul Normal 0.00-0.03 [facility] Comment on above: Performed By: #### C BC #### [facility] [address] [place] [address] Dr. Luh Brown IG % 0.5 % Normal 0.0-0.5 [facility] Comment on above: Performed By: #### C BC #### [facility] [address] [place] [address] Dr. Luh Brown LYMPH # 1.6 103/ul Normal 1.2-3.8 [facility] Comment on above: Performed By: #### C BC #### [facility] [address] [place] [address] Dr. Luh Brown Lymphocytes/100 WBC (Bld) 24.0 % Normal 20.5-60.0 [facility] Comment on above: Performed By: #### C BC #### [facility] [address] [place] [address] Dr. Luh Brown MANUAL DIFF REQ NO Normal [facility] Comment on above: Performed By: #### C BC #### [facility] [address] [place] [address] Dr. Luh Brown MCH (RBC) [Entitic mass] 29.3 pg Normal 26.7-34.0 [facility] Comment on above: Performed By: #### C BC #### [facility] [address] [place] [address] Dr. Luh Brown MCHC (RBC) [Mass/Vol] 32.9 g/dL Normal 29.9-35.2 [facility] Comment on above: Performed By: #### C BC #### [facility] [address] [place] [address] Dr. Luh Brown MCV (RBC) [Entitic vol] 88.9 fL Normal 81.0-99.0 [facility] Comment on above: Performed By: #### C BC #### [facility] [address] [place] [address] Dr. Luh Brown MONO # 0.6 103/ul Normal 0.3-0.8 [facility] Comment on above: Performed By: #### C BC #### [facility] [address] [place] [address] Dr. Luh Brown Monocytes/100 WBC (Bld) 9.4 % Normal 1.7-12.0 [facility] Comment on above: Performed By: #### C BC #### [facility] [address] [place] [address] Dr. Luh Brown NEUT # 4.2 103/ul Normal 1.4-6.5 [facility] Comment on above: Performed By: #### C BC #### [facility] [address] [address] [address] Luh Brown Neutrophils/100 WBC (Bld) 63.7 % Normal 43.0-75.0 [facility] Comment on above: Performed By: #### C BC #### [facility] [address] [address] [address] Luh Brown Platelet mean volume (Bld) [Entitic vol] 8.9 fL Critically low 9.5-13.5 [facility] Comment on above: Performed By: #### C BC #### [facility] [address] [address] [address] Luh Brown PLT 247 103/ul Normal 150-450 [facility] Comment on above: Performed By: #### C BC #### [facility] [address] [place] [address] Dr. Luh Brown RBC 3.86 106/ul Critically low 4.20-5.40 [facility] Comment on above: Performed By: #### C BC #### [facility] [address] [place] [address] Dr. Luh Brown WBC 6.6 103/ul Normal 4.0-11.0 [facility] Comment on above: Performed By: #### C BC #### [facility] [address] [place] [address] Dr. Luh Brown PROTIMEon 03-12-2022 INR Coag (PPP) [Relative time] 0.94 {INR} Normal [facility] Comment on above: Performed By: #### P T #### [facility] [address] [place] [address] Dr. Luh Brown INR GUIDELINES SEE BELOW Normal [facility] Comment on above: Result Comment: DELISA RED INR: 2.0 - 3.0 CONDITIONS NOT LISTED BELOW 2.5 - 3.5 FOR PROSTHETIC HEART VALVE REPLACEMENT 2.5 - 3.5 RECURRENT THROMBOSIS Performed By: #### P T #### [facility] [address] [place] [address] Dr. Luh Brown PT Coag (PPP) [Time] 10.2 s Normal 9.0-11.6 [facility] Comment on above: Performed By: #### P T #### [facility] [address] [address] [address] TAVR Full Contrast CH/ABD /Pelvison 03-08-2022 CT TAVR Full Contrast CH/ABD/Pelvis FINAL REPORT Interpreted by: RUPERTO CROWELL MD and SOULEYMANE DESIR DO 03/08/22 14:35 Patient Name: VIRGILIO JOHNSON STUDY: TH CT TAVR FULL CONTRAST CHEST/ABD/PELVIS; 03/08/2022 12:30 pm INDICATION: KELLEY I35.0: Aortic stenosis. Same scott Normal [facility] [address] [place] Work Phone: No Panel Informationon 03-08 [email or web address]& Date=08-03-2022&Time=10% 3a18%3a34%3a00&TestType= ECG&Site=1&OutputType=PD F&Ext=PDF [facility] [facility] [address] [place] Work Phone: Normal sinus rhythm [facility] [facility] [address] [place] Work Phone: Abnormal [facility] [address] [place] Work Phone: [phone] [facility] [address] [place] Work Phone: [phone] [facility] [facility] [address] [place] Work Phone: 173 1 [facility] [facility] [address] [place] Work Phone: 124 1 [facility] [facility] [address] [place] Work Phone: 220 1 [facility] [address] [place] Work Phone: 12 1 [facility] [address] [place] Work Phone: 78 1 [facility] [address] [place] Work Phone: 2 1 [facility] [address] [place] Work Phone: 60 1 [facility] [facility] [address] [place] Work Phone: 430 1 [facility] [facility] [address] [place] Work Phone: 396 1 [facility] [facility] [address] [place] Work Phone: 96 1 [facility] [address] [place] Work Phone: 192 1 [facility] [address] [place] Work Phone: 71 1 [facility] [address] [place] Work Phone: Tobacco Screening.on 022 Fall risk assessment a) No falls within the last year [facility] [address] [place] Work Phone: Tobacco use status [facility] b) No [facility] [address] [place] Work Phone: Basic Metabolic Panelon 02-15 Calcium [Mass/Vol] 9.2 mg/dL Normal 8.2-10.2 [facility] Comment on above: Result Comment: PERF ORMED BY: [address] [place] [address] PATHOLOGIST 3RD PRESSMAN DORA ALLISON M.D. Performed By: #### B MP #### [facility] [address] [place] [address] [place] Chloride [Moles/Vol] 100 mmol/L Normal 95-114 [facility] [place] Comment on above: Performed By: #### B MP #### [facility] [address] [place] [address] [place] CO2 [Moles/Vol] 26.7 mmol/L Normal 22.0-30.0 [facility] Comment on above: Performed By: #### B MP #### [facility] [address] Creatinine [Mass/Vol] 0.97 mg/dL Normal 0.44-1.03 [facility] Comment on above: Performed By: #### B MP #### [facility] [address] [place] [address] [place] Estimated GFR ( Jose J > 60 Normal [facility] Comment on above: Result Comment: GFR estimated reference range: According to KDOQI guidelines, <60 ml/min/1.73m2 is sufficient to diagnose a patient with chronic kidney disease. Performed By: #### B MP #### [facility] [address] [place] [address] [place] Estimated GFR (Non- Am 59 [facility] Comment on above: Performed By: #### B MP #### [address] Glucose [Mass/Vol] 114 mg/dL High 70-100 [facility] Comment on above: Result Comment: [place] Glucose Reference Range is dependent on time and content of last meal. Glucose of more than 200 mg/dL in a nonstressed, ambulatory subject supports the diagnosis of Diabetes Mellitus. ADA recommended reference range Performed By: #### B MP #### [address] Potassium [Moles/Vol] 4.5 mmol/L Normal 3.5-5.1 [facility] Comment on above: Performed By: #### B MP #### [place] [address] [place] Sodium [Moles/Vol] 136 mmol/L Normal 136-146 [facility] Comment on above: Performed By: #### B MP #### [address] Urea nitrogen [Mass/Vol] 22 mg/dL Normal 9-23 [facility] Comment on above: Performed By: #### B MP #### [place] [address] [place] Creatinine and Glomerular fi ltration rate.predicted panel (S/P/Bld)Ordered By: Jose Jordan on 03-02-2022 Creatinine [Mass/Vol] 0.97 mg/dL 0.44-1.03 [facility] Estimated glomerular filtrat ion rate (GFR) non- AmericanOrdered By: Jose Jordan on 03-02-2022 GFR/1.73 sq M.predicted among non-blacks MDRD (S/P/Bld) [Vol rate/Area] 59 mL/Min [facility] No Panel InformationOrdered By: Jose Jordan on 03-02-2022 Estimated GFR () > 60 mL/Min [facility] Comment on above: GFR estimated refere nce range: According to KDOQI guidelines, <60 ml/min/1.73m2 is sufficient to diagnose a patient with chronic kidney disease. Pharmacy Creatinine Clearance (Chem N/A [facility] Serum or plasma calcium jeane urement (mass/volume)Ordered By: Jose Jordan on 03-02-2022 Calcium [Mass/Vol] 9.2 mg/dL 8.2-10.2 [facility] Serum or plasma chloride thomas surement (moles/volume)Ordered By: Jose Jordan on 03-02-2022 Chloride [Moles/Vol] 100 mmol/L 95-114 [facility] [place] Serum or plasma glucose jeane urement (mass/volume)Ordered By: Jose Jordan on 03-02-2022 Glucose [Mass/Vol] 114 mg/dL 70-100 [facility] Comment on above: ADA recommended refe rence range Random Glucose Reference Range is dependent on time and content of last meal. Glucose of more than 200 mg/dL in a nonstressed, ambulatory subject supports the diagnosis of Diabetes Mellitus. ADA recommended refe rence rangeRandom Glucose Reference Range is dependent on time and content of last meal. Glucose of more than 200 mg/dL in a nonstressed, ambulatory subject supports the diagnosis of Diabetes Mellitus. Serum or plasma potassium me asurement (moles/volume)Ordered By: Jose Jordan on 03-02-2022 Potassium [Moles/Vol] 4.5 mmol/L 3.5-5.1 [facility] Serum or plasma sodium measu rement (moles/volume)Ordered By: Jose Jordan on 03-02-2022 Sodium [Moles/Vol] 136 mmol/L 136-146 [facility] Serum or plasma total carbon dioxide measurement (moles/volume)Ordered By: Jose Jordan on 03-02-2022 CO2 [Moles/Vol] 26.7 mmol/L 22.0-30.0 [facility] Serum or plasma urea nitroge n measurement (mass/volume)Ordered By: Jose Jordan on 03-02-2022 Urea nitrogen [Mass/Vol] 22 mg/dL 9- [facility] SARS-CoV-2 (COVID-19) RNA NA A+probe Ql (Resp)on 02-22-2022 SARS-CoV-2 (COVID-19) RNA ISIDORO+probe Ql (Unsp spec) Positive [employer] Other [facility] echo transesophageal DAMON on 02-02-2022 [facility] echo transesophageal DAMON [facility] [place] [address] [place] [address] Echocardiogram Signed Patient: Virgilio Johnson MR#: [id number] : 1960 Acct:[id number] Age/Sex: 61 / F ADM Date: 02/02/22 Loc: Room: [facility] Attending Dr: Josep Perdomo MD Ordering Provider: Josep Perdomo MD Date of Service: 02/02/22/ [facility] transesophageal DAMON: AORTIC STENOSIS Copies to: Josep Perdomo MD HR: 74 Reason For Study: AORTIC STENOSIS History: HTN, DM Interpretation Summary Mild concentric left ventricular hypertrophy. Ejection Fraction = 60-65%. Aortic valve is calcified with appearance of aortic stenosis. Peak gradient around 64 mmHg. Mean gradient around 38 mmHg. Calculated aortic valve area is 0.8 centimeters square consistent with severe aortic stenosis. By color-flow Doppler there is mild aortic regurgitation Mild aortic regurgitation. There is mild mitral regurgitation. There is mild tricuspid regurgitation. Right ventricular systolic pressure is elevated at 30-40mmHg. Right ventricular systolic pressure is consistent with mild pulmonary hypertension. Patient patient symptoms of exercise-induced shortness of breath and limited exercise tolerance and the finding of severe aortic stenosis. Patient should be evaluated for TAVR Procdure: A two-dimensional transesophageal echocardiogram with color flow and Doppler was performed. A two-dimensional transesophageal echocardiogram with color flow and Doppler was performed. Informed consent for Transesophageal Echocardiogram was obtained prior to the procedure. The patient was brought to the procedure room in a fasting state. An intravenous line was placed. A topical anesthetic agent was used for oropharangeal anesthesia. A bite block was inserted. A total of 2 mg of Versed was given. A total of 90 mg of Propafol was given. A multifrequency, multiplane transesopheageal echocardiographic endoscope was inserted and manipulated in the standard fashion to achieve multiplane views. The probe was passed without difficulty. The usual views were obtained; basal, mid-esophageal, transgastric and aortic views. The patient's vital signs including blood pressure, heart rate, pulse oximetry and cardiac rhythm were monitored throughout the procedure and remained stable. Contrast injection with agitated saline was performed. There were no complications. Resting heart rate is 77 bpm. Resting blood pressure is 132/88 mmHg. A multifrequency, multiplane transesopheageal echocardiographic endoscope was inserted and manipulated in the standard fashion to achieve multiplane views. The transesophageal probe was passed without difficulty. The usual views were obtained; basal, mid-esophageal, transgastric and aortic views. The patient's vital signs, including blood pressure, heart rate, pulse oximetry and cardiac rhythm were monitored throughout the procedure and remained stable. Contrast injection with agitated saline was performed. Left Ventricle: The left ventricular size is normal. Mild concentric left ventricular hypertrophy. Ejection Fraction = 60-65%. Left Atrium: The left atrium appears normal in size. The atrial septum appears normal. Right Atrium: The right atrium appears normal in size. Right Ventricle: The right ventricular size, thickness and function are normal. Aortic Valve: Aortic valve is calcified with appearance of aortic stenosis. Peak gradient around 64 mmHg. Mean gradient around 38 mmHg. Calculated aortic valve area is 0.8 centimeters square consistent with severe aortic stenosis. By color-flow Doppler there is mild aortic regurgitation. Mild aortic regurgitation. Mitral Valve: The mitral valve is mildly sclerotic. There is mild mitral regurgitation. Tricuspid Valve: The tricuspid valve is normal in structure and function. There is mild tricuspid regurgitation. Right ventricular systolic pressure is elevated at 30-40mmHg. Right ventricular systolic pressure is consistent with mild pulmonary hypertension. Pulmonic Valve: The pulmonic valve is not well visualized. There is no pulmonic valve regurgitation. Arteries: The aortic root is normal size. Venous: The inferior vena cava is normal in size, with a normal collapsibility index. Effusions: No pericardial effusion seen. There is no pleural effusion. Patient patient symptoms of exercise-induced shortness of breath and limited exercise tolerance and the finding of severe aortic stenosis. Patient should be evaluated for TAVR. Transcribed By: SCV Performed At: 02/02/22 8460 Signed By: Josep Perdomo MD 02/02/22 1138 Normal [facility] No Panel Informationon 02-02 -[facility] [facility] [address] DO Work Phone: Activated partial thrombopla stin time (aPTT) in platelet poor plasma by coagulation aOrdered By: Josep Perdomo on 01-29-2022 aPTT Coag (PPP) [Time] 29.5 s 25.1-36.5 [facility] Basophils Auto (Bld) [#/Vol] Ordered By: Josep Perdomo on 01-29-2022 Basophils (Bld) [#/Vol] 0.0 10*3/uL 0.0-0.2 [facility] Basophils/100 WBC Auto (Bld) Ordered By: Josep Perdomo on 01-29-2022 Basophils/100 WBC (Bld) 0.3 % . [facility] Blood Urea Nitrogenon 2021 Urea nitrogen [Mass/Vol] 27 mg/dL High 9-23 [facility] Comment on above: Performed By: #### C REAT, PP, LYTES, BUN, CBC, LIPID #### [facility] [address] Blood hemoglobin measurement (mass/volume)Ordered By: Josep Perdomo on 01-29-2022 Hemoglobin (Bld) [Mass/Vol] 11.5 g/dL 11.8-15.4 [facility] Blood leukocytes automated c ount (number/volume)Ordered By: Josep Perdomo on 01-29-2022 WBC (Bld) [#/Vol] 6.6 10*3/uL 4.5-11.0 [facility] COVID-19 Antigenon 2 COVID-19 Antigen Healthcare Worker?: N Reference Range: Negative Negative results, from patients with symptom onset beyond five days, should be treated as presumptive and confirmation with a molecular assay, if necessary, for patient management, may be performed. Negative results do not rule out COVID-19 and should not be used as the sole basis for treatment or patient management decisions, including infection control decisions. Negative results should be considered in the context of a patient's recent exposures, history and the presence of clinical signs and symptoms consistent with COVID-19. The Yun SARS Antigen WILBERT does not differentiate between SARS-CoV and SARS-CoV-2. This test was developed and its performance characteristic determined by [facility] and validated at [facility]. This test has not been FDA cleared or approved. This test has been authorized by FDA under an Emergency Use Authorization (EUA). This test has been validated in accordance with the FDA's Guidance Document (Policy for Diagnostics Testing in Laboratories Certified to Perform High Complexity Testing under CLIA prior to Emergency Use Authorization for Coronavirus Disease-2019 during the Public Health Emergency) issued on October 18, 2019. This test is only authorized for the duration of time the declaration that circumstances exist justifying the authorization of the emergency use of in vitro diagnostic tests for detection of SARS-CoV-2 virus and/or diagnosis of COVID-19 infection under section 564(b)(1) of the Act, 21 U.S.C. 360bbb-3(b)(1), unless the authorization is terminated or revoked sooner. SARS-CoV+SARS-CoV-2 (COVID-19) Ag [Presence] in Respiratory specimen by Rapid immunoassay Negative for SARS Antigen by WILBERT PERFORMED BY: [place] [address] PATHOLOGIST 3RD PRESSMAN DORA ALLISON M.D. Normal [facility] Comment on above: Performed By: #### C OVID-19 YUN, SOFIANEG #### [address] COVID-19 SOFIAOrdered By: Ramses Perdomo on 01-29-2022 SARS-CoV+SARS-CoV-2 (COVID-19) Ag IA.rapid Ql (Resp) Negative Negative [facility] Comment on above: This is a duplicate Yun SARS Antigen (WILBERT) result to be used for statistical tracking purpose only. Cholesterol [Mass/volume] in Serum or PlasmaOrdered By: Josep Perdomo on 01-29-2022 Cholesterol [Mass/Vol] 163 mg/dL 140-200 [facility] Comment on above: Chol less than 200 m g/dl low risk Chol 201-239 mg/dl borderline risk Chol 240 mg/dl and greater high risk Cholesterol in LDL Calc [Mas s/Vol]Ordered By: Josep Perdomo on 01-29-2022 Cholesterol in LDL [Mass/Vol] 84 mg/dL 0-100 [facility] Comment on above: LDL ATP III CLASSIFI CATION LDL less than 100 mg/dL Optimal LDL 100-129 mg/dL Near or above optimal LDL 130-159 mg/dL Borderline high LDL 160-189 mg/dL High LDL greater than 189 mg/dL Very high Cholesterol in VLDL Calc [Ma ss/Vol]Ordered By: Josep Perdomo on 01-29-2022 Cholesterol in VLDL [Mass/Vol] 18 mg/dL [facility] Coagulation Profileon 2021 aPTT Coag (Bld) [Time] 29.5 s Normal 25.1-36.5 [facility] Comment on above: Result Comment: PERF ORMED BY: [place] [address] PATHOLOGIST 3RD PRESSMAN DORA ALLISON M.D. Performed By: #### C REAT, PP, LYTES, BUN, CBC, LIPID #### [address] INR Coag (PPP) [Relative time] 0.9 {INR} Normal [facility] Comment on above: Result Comment: INR Therapeutic Range A) Pre- and Peroperative OAT started two weeks before surgery. NOT HIP SURGERY: 1.5 - 2.5 HIP SURGERY: 2 - 3 B) Primary and secondary prevention of venous THROMBOSIS: 2 - 3 C) Active venous thrombosis, pulmonary embolism and prevention of recurrent venous thrombosis: 2 - 3 D) Prevention of arterial thromboembolism including patients with mechanical heart valves: 3 - 4.5 Performed By: #### C REAT, PP, LYTES, BUN, CBC, LIPID #### [address] PT Coag (PPP) [Time] 10.3 s Normal 9.0-12.9 [facility] Comment on above: Performed By: #### C REAT, PP, LYTES, BUN, CBC, LIPID #### [address] Complete Blood Count Auto Di ffon 01-29-2022 Basophils (Bld) [#/Vol] 0.0 10*3/uL Normal 0.0-0.2 [facility] Comment on above: Result Comment: PERF ORMED BY: [place] [address] PATHOLOGIST 3RD PRESSMAN DORA ALLISON M.D. Performed By: #### C REAT, PP, LYTES, BUN, CBC, LIPID #### [address] Basophils/100 WBC (Bld) 0.3 % Normal . [facility] Comment on above: Performed By: #### C REAT, PP, LYTES, BUN, CBC, LIPID #### [address] Eosinophils (Bld) [#/Vol] 0.2 10*3/uL Normal 0.0-0.45 [facility] Comment on above: Performed By: #### C REAT, PP, LYTES, BUN, CBC, LIPID #### [address] Eosinophils/100 WBC (Bld) 2.4 % Normal . [facility] Comment on above: Performed By: #### C REAT, PP, LYTES, BUN, CBC, LIPID #### [address] Erythrocyte distribution width (RBC) [Ratio] 13.8 % Normal 11.9-15.3 [facility] Comment on above: Performed By: #### C REAT, PP, LYTES, BUN, CBC, LIPID #### [address] Hematocrit (Bld) [Volume fraction] 33.8 % Low 34.0-46.4 [facility] Comment on above: Performed By: #### C REAT, PP, LYTES, BUN, CBC, LIPID #### [address] Hemoglobin (Bld) [Mass/Vol] 11.5 g/dL Low 11.8-15.4 [facility] Comment on above: Performed By: #### C REAT, PP, LYTES, BUN, CBC, LIPID #### [address] Lymphocytes (Bld) [#/Vol] 1.8 10*3/uL Normal 1.00-4.8 [facility] Comment on above: Performed By: #### C REAT, PP, LYTES, BUN, CBC, LIPID #### [address] Lymphocytes/100 WBC (Bld) 27.5 % Normal . [facility] Comment on above: Performed By: #### C REAT, PP, LYTES, BUN, CBC, LIPID #### [address] MCH (RBC) [Entitic mass] 29.8 pg Normal 24.7-34.3 [facility] Comment on above: Performed By: #### C REAT, PP, LYTES, BUN, CBC, LIPID #### [address] MCV (RBC) [Entitic vol] 88.0 fL Normal 80-100 [facility] Comment on above: Performed By: #### C REAT, PP, LYTES, BUN, CBC, LIPID #### [address] Mean Corpuscular HGB Conc 33.9 g/dL Normal 32.0-35.0 [facility] Comment on above: Performed By: #### C REAT, PP, LYTES, BUN, CBC, LIPID #### [address] Monocytes (Bld) [#/Vol] 0.5 10*3/uL Normal 0.0-0.8 [facility] Comment on above: Performed By: #### C REAT, PP, LYTES, BUN, CBC, LIPID #### [address] Monocytes/100 WBC (Bld) 8.2 % Normal . [facility] Comment on above: Performed By: #### C REAT, PP, LYTES, BUN, CBC, LIPID #### [address] Neutrophils (Bld) [#/Vol] 4.1 10*3/uL Normal 1.8-7.7 [facility] Comment on above: Performed By: #### C REAT, PP, LYTES, BUN, CBC, LIPID #### [address] Neutrophils/100 WBC (Bld) 61.6 % Normal . [facility] Comment on above: Performed By: #### C REAT, PP, LYTES, BUN, CBC, LIPID #### [address] Nucleated RBC/100 WBC (Bld) [Ratio] 0.0 % Normal 0-0.5 [facility] Comment on above: Performed By: #### C REAT, PP, LYTES, BUN, CBC, LIPID #### [address] Platelet mean volume (Bld) [Entitic vol] 7.6 fL Normal 6.3-10.7 [facility] Comment on above: Performed By: #### C REAT, PP, LYTES, BUN, CBC, LIPID #### [address] Platelets (Bld) [#/Vol] 281 10*3/uL Normal 150-450 [facility] Comment on above: Performed By: #### C REAT, PP, LYTES, BUN, CBC, LIPID #### [address] RBC (Bld) [#/Vol] 3.84 10*6/uL Normal 3.60-5.00 [facility] Comment on above: Performed By: #### C REAT, PP, LYTES, BUN, CBC, LIPID #### [address] WBC (Bld) [#/Vol] 6.6 10*3/uL Normal 4.5-11.0 [facility] Comment on above: Performed By: #### C REAT, PP, LYTES, BUN, CBC, LIPID #### [address] Creatinineon 01-29-2022 Creatinine [Mass/Vol] 1.03 mg/dL Normal 0.44-1.03 [facility] Comment on above: Performed By: #### C REAT, PP, LYTES, BUN, CBC, LIPID #### [address] Estimated GFR ( Jose J > 60 Normal [facility] Comment on above: Result Comment: GFR estimated reference range: According to KDOQI guidelines, <60 ml/min/1.73m2 is sufficient to diagnose a patient with chronic kidney disease. Performed By: #### C REAT, PP, LYTES, BUN, CBC, LIPID #### [facility] [address] Estimated GFR (Non- Am 55 Normal [facility] Comment on above: Performed By: #### C REAT, PP, LYTES, BUN, CBC, LIPID #### [facility] [address] Creatinine and Glomerular fi ltration rate.predicted panel (S/P/Bld)Ordered By: Josep Perdomo on 01-29-2022 Creatinine [Mass/Vol] 1.03 mg/dL 0.44-1.03 [facility] ECG 12 lead ECGon 01-29-2022 ECG 12 lead ECG [facility] [place] [address] [place] [address] Electrocardiograph Report Signed Patient: Virgilio Johnson MR#: [id number] : 1960 Acct:[id number] Age/Sex: 61 / F ADM Date: 01/29/22 Loc: Room: Type: [facility] Attending Dr: Josep Perdomo MD Ordering Provider: Josep Perdomo MD Date of Service: 01/29/22 ECG/ECG 12 lead ECG: Pre op Copies to: Test Reason : Blood Pressure : / mmHG Vent. Rate : 062 BPM Atrial Rate : 062 BPM P-R Int : 222 ms QRS Dur : 092 ms QT Int : 436 ms P-R-T Axes : 053 -07 002 degrees QTc Int : 442 ms Sinus rhythm with 1st degree AV block Voltage criteria for left ventricular hypertrophy Nonspecific T wave abnormality Abnormal ECG When compared with ECG of 05-APR-2012 09:04, No significant change was found Confirmed by TESSA BRENNAN MD ([id number]) on 01/29/2022 12:29:32 PM Referred By: CONOR Electronically Signed By:TESSA BRENNAN MD Transcribed By: MUS Signed By Tessa Brennan MD [id number] Normal [facility] Electrolyteson 01-29-2022 Chloride [Moles/Vol] 105 mmol/L Normal 95-114 [facility] Comment on above: Performed By: #### C REAT, PP, LYTES, BUN, CBC, LIPID #### [facility] [address] CO2 [Moles/Vol] 21.7 mmol/L Low 22.0-30.0 [facility] Comment on above: Performed By: #### C REAT, PP, LYTES, BUN, CBC, LIPID #### [facility] [address] Potassium [Moles/Vol] 3.7 mmol/L Normal 3.5-5.1 [facility] Comment on above: Performed By: #### C REAT, PP, LYTES, BUN, CBC, LIPID #### [facility] [address] Sodium [Moles/Vol] 137 mmol/L Normal 136-146 [facility] Comment on above: Performed By: #### C REAT, PP, LYTES, BUN, CBC, LIPID #### [facility] [address] Eosinophils Auto (Bld) [#/Vo l]Ordered By: Josep Perdomo on 01-29-2022 Eosinophils (Bld) [#/Vol] 0.2 10*3/uL 0.0-0.45 [facility] Eosinophils/100 WBC Auto (Bl d)Ordered By: Josep Perdomo on 01-29-2022 Eosinophils/100 WBC (Bld) 2.4 % . [facility] Erythrocyte distribution wid th Auto (RBC) [Ratio]Ordered By: Josep Perdomo on 01-29-2022 Erythrocyte distribution width (RBC) [Ratio] 13.8 % 11.9-15.3 [facility] Estimated glomerular filtrat ion rate (GFR) non- AmericanOrdered By: Josep Perdomo on 01-29-2022 GFR/1.73 sq M.predicted among non-blacks MDRD (S/P/Bld) [Vol rate/Area] 55 mL/Min [facility] Hematocrit Auto (Bld) [Volum e fraction]Ordered By: Josep Perdomo on 01-29-2022 Hematocrit (Bld) [Volume fraction] 33.8 % 34.0-46.4 [facility] Laboratory - Chemistry and C hemistry - challengeon 01-29-2022 Cholesterol [Mass/Vol] 163\S\163 Normal 140-200 [facility] y 250 DO Work Phone: Comment on above: Chol less than 200 m g/dl low risk Chol 201-239 mg/dl borderline risk Chol 240 mg/dl and greater high risk Cholesterol in LDL [Mass/Vol] 84\S\84 Normal 0-100 [facility] 250 DO Work Phone: Comment on above: LDL ATP III CLASSIFI CATION LDL less than 100 mg/dL Optimal LDL 100-129 mg/dL Near or above optimal LDL 130-159 mg/dL Borderline high LDL 160-189 mg/dL High LDL greater than 189 mg/dL Very high Laboratory - CoagulationOrde red By: Josep Perdomo on 01-29-2022 PT Coag (PPP) [Time] 10.3 s 9.0-12.9 [facility] Laboratory - Hematology and Cell countsOrdered By: Josep Perdomo on 01-29-2022 Nucleated RBC/100 WBC (Bld) [Ratio] 0.0 % 0-0.5 [facility] Laboratory - Microbiology an d Antimicrobial susceptibilityon 01-29-2022 SARS-CoV-2 (COVID-19) RNA ISIDORO+probe Ql (Unsp spec) [facility] y 250 DO Work Phone: Lipid Panelon 01-29-2022 Cholesterol [Mass/Vol] 163 mg/dL Normal 140-200 [facility] Comment on above: Result Comment: Chol less than 200 mg/dl low risk Chol 201-239 mg/dl borderline risk Chol 240 mg/dl and greater high risk Performed By: #### C REAT, PP, LYTES, BUN, CBC, LIPID #### [facility] [address] Cholesterol in HDL [Mass/Vol] 61 mg/dL Normal 35-85 [facility] Comment on above: Result Comment: HDL CHOL ATP-III CLASSIFICATION Cardiovascular Risk HDL > or equal to 60 mg/dL LOW HDL < 40 mg/dL HIGH Performed By: #### C REAT, PP, LYTES, BUN, CBC, LIPID #### [facility] [address] Cholesterol.total/Chol esterol in HDL [Mass ratio] 2.7 {ratio} Normal <5.0 [facility] Comment on above: Result Comment: PERF ORMED BY: [place] [address] PATHOLOGIST 3RD PRESSMAN DORA ALLISON M.D. Performed By: #### C REAT, PP, LYTES, BUN, CBC, LIPID #### [address] LDL Cholesterol,Calculated 84 mg/dL Normal 0-100 [facility] Comment on above: Result Comment: LDL ATP III CLASSIFICATION LDL less than 100 mg/dL Optimal LDL 100-129 mg/dL Near or above optimal LDL 130-159 mg/dL Borderline high LDL 160-189 mg/dL High LDL greater than 189 mg/dL Very high Performed By: #### C REAT, PP, LYTES, BUN, CBC, LIPID #### [address] Triglyceride w/Reflex 92 mg/dL Normal 35-149 [facility] Comment on above: Result Comment: TRIG ATP III CLASSIFICATION TRIG less than 150 mg/dL Normal TRIG 150-199 mg/dL Borderline high TRIG 200-500 mg/dL High TRIG greater than 500 mg/dL Very high Standard traceable to the Center for Disease Conrtrol and Prevention (CDC) test method. Performed By: #### C REAT, PP, LYTES, BUN, CBC, LIPID #### [facility] [address] VLDL CHOLESTEROL 18 mg/dL Normal [facility] Comment on above: Performed By: #### C REAT, PP, LYTES, BUN, CBC, LIPID #### [facility] [address] Lymphocytes Auto (Bld) [#/Vo l]Ordered By: Josep Perdomo on 01-29-2022 Lymphocytes (Bld) [#/Vol] 1.8 10*3/uL 1.00-4.8 [facility] Lymphocytes/100 WBC Auto (Bl d)Ordered By: Josep Perdomo on 01-29-2022 Lymphocytes/100 WBC (Bld) 27.5 % . [facility] MCH Auto (RBC) [Entitic mass ]Ordered By: Josep Perdomo on 01-29-2022 MCH (RBC) [Entitic mass] 29.8 pg 24.7-34.3 [facility] MCHC Auto (RBC) [Mass/Vol]Or dered By: Josep Perdomo on 01-29-2022 MCHC (RBC) [Mass/Vol] 33.9 g/dL 32.0-35.0 [facility] MCV Auto (RBC) [Entitic vol] Ordered By: Josep Perdomo on 01-29-2022 MCV (RBC) [Entitic vol] 88.0 fL 80-100 [facility] Monocytes Auto (Bld) [#/Vol] Ordered By: Josep Perdomo on 01-29-2022 Monocytes (Bld) [#/Vol] 0.5 10*3/uL 0.0-0.8 [facility] Monocytes/100 WBC Auto (Bld) Ordered By: Josep Perdomo on 01-29-2022 Monocytes/100 WBC (Bld) 8.2 % . [facility] Neutrophils Auto (Bld) [#/Vo l]Ordered By: Josep Perdomo on 01-29-2022 Neutrophils (Bld) [#/Vol] 4.1 10*3/uL 1.8-7.7 [facility] Neutrophils/100 WBC Auto (Bl d)Ordered By: Josep Perdomo on 01-29-2022 Neutrophils/100 WBC (Bld) 61.6 % . [facility] No Panel Informationon 01-29 Negative Normal Negative -[facility] 250 DO Work Phone: [phone] Comment on above: This is a duplicate Yun SARS Antigen (WILBERT) result to be used for statistical tracking purpose only.PERFORMED BY:[facility] [place], [place] [phone] MEDICAL DIRECTORDORA ALLISON M.D. 61.6\S\61.6 Normal . [facility] 250 DO Work Phone: [phone] 7.6\S\7.6 Normal 6.3-10.7 -[facility] 250 DO Work Phone: [phone] 281\S\281 Normal 150-450 [facility] 250 DO Work Phone: 13.8\S\13.8 Normal 11.9-15.3 -[facility] 250 DO Work Phone: [phone] 33.9\S\33.9 Normal 32.0-35.0 -[facility] 250 DO Work Phone: 29.8\S\29.8 Normal 24.7-34.3 -[facility] 250 DO Work Phone: [phone] 4.1\S\4.1 Normal 1.8-7.7 [facility] 250 DO Work Phone: [phone] 0.0\S\0.0 Normal 0.0-0.2 -[facility] 250 DO Work Phone: [phone] Comment on above: PERFORMED BY:[facility] [place] [id number] MEDICAL DIRECTORDORA ALLISON M.D. 0.3\S\0.3 Normal . -[facility] 250 DO Work Phone: [phone] 2.4\S\2.4 Normal . [facility] 250 DO Work Phone: [phone] 8.2\S\8.2 Normal . [facility] 250 DO Work Phone: [phone] 27.5\S\27.5 Normal . [facility] 250 DO Work Phone: [phone] 0.2\S\0.2 Normal 0.0-0.45 [facility] 250 DO Work Phone: [phone] 0.5\S\0.5 Normal 0.0-0.8 [facility] 250 DO Work Phone: [phone] 1.8\S\1.8 Normal 1.00-4.8 [facility] 250 DO Work Phone: [phone] 88.0\S\88.0 Normal 80-100 [facility] 250 DO Work Phone: [phone] 33.8\S\33.8 below low threshold 34.0-46.4 [facility] 250 DO Work Phone: [phone] 11.5\S\11.5 below low threshold 11.8-15.4 [facility] 250 DO Work Phone: [phone] 3.84\S\3.84 Normal 3.60-5.00 [facility] 250 DO Work Phone: [phone] 6.6\S\6.6 Normal 3.8-11.6 [facility] 250 DO Work Phone: [phone] 29.5\S\29.5 Normal 25.1-36.5 [facility] 250 DO Work Phone: [phone] Comment on above: PERFORMED BY:[place] [address] [place] [id number] MEDICAL DIRECTORDORA ALLISON M.D. 0.9\S\0.9 [facility] Work Phone: Comment on above: INR Therapeutic Rang e A) Pre- and Peroperative OAT started two weeks before surgery. NOT HIP SURGERY: 1.5 - 2.5 HIP SURGERY: 2 - 3 B) Primary and secondary prevention of venous THROMBOSIS: 2 - 3 C) Active venous thrombosis, pulmonary embolism and prevention of recurrent venous thrombosis: 2 - 3 D) Prevention of arterial thromboembolism including patients with mechanical heart valves: 3 - 4.5 10.3\S\10.3 Normal 9.0-12.9 [facility] Arpita franz 250 DO Work Phone: [phone] 21.7\S\21.7 below low threshold 22.0-30.0 [facility] Arpita franz 250 DO Work Phone: [phone] 105\S\105 Normal 95-114 [facility] Arpita franz 250 DO Work Phone: [phone] 3.7\S\3.7 Normal 3.5-5.1 [facility] Arpita franz 250 DO Work Phone: [phone] 137\S\137 Normal 136-146 [facility] Arpita franz 250 DO Work Phone: [phone] 27\S\27 above high threshold 9-23 [facility] Arpita franz 250 DO Work Phone: [phone] > 60 Normal [facility] Arpita franz 250 DO Work Phone: Comment on above: GFR estimated refere nce range: According to KDOQI guidelines, <60 ml/min/1.73m2 is sufficient to diagnose a patient with chronic kidney disease. 55\S\55 Normal [facility] Arpita franz 250 DO Work Phone: [phone] 1.03\S\1.03 Normal 0.44-1.03 [facility] Arpita franz 250 DO Work Phone: 2.7\S\2.7 Normal <5.0 [facility] 250 DO Work Phone: Comment on above: PERFORMED BY:[facility] [place], [place] [phone] MEDICAL DIRECTORDORA ALLISON M.D. 18\S\18 Normal [facility] y 250 DO Work Phone: 92\S\92 Normal 35-149 [facility] y 250 DO Work Phone: Comment on above: TRIG ATP III CLASSIF ICATION TRIG less than 150 mg/dL Normal TRIG 150-199 mg/dL Borderline high TRIG 200-500 mg/dL High TRIG greater than 500 mg/dL Very high Standard traceable to the Center for Disease Conrtrol and Prevention (CDC) test method. 61\S\61 Normal 35-85 [facility] y 250 DO Work Phone: Comment on above: HDL CHOL ATP-III CLA SSIFICATION Cardiovascular Risk HDL > or equal to 60 mg/dL LOW HDL < 40 mg/dL HIGH No Panel InformationOrdered By: Josep Perdomo on 01-29-2022 Estimated GFR () > 60 mL/Min [facility] Comment on above: GFR estimated refere nce range: According to KDOQI guidelines, <60 ml/min/1.73m2 is sufficient to diagnose a patient with chronic kidney disease. Pharmacy Creatinine Clearance (Chem N/A [facility] SARS Antigen (LFIA) [facility] Platelet mean volume Auto (B ld) [Entitic vol]Ordered By: Josep Perdomo on 01-29-2022 Platelet mean volume (Bld) [Entitic vol] 7.6 fL 6.3-10.7 [facility] Platelet poor plasma interna tional normalized ratio (INR) by coagulation assay (relatOrdered By: Josep Perdomo on 01-29-2022 INR Coag (PPP) [Relative time] 0.9 {INR} [facility] Comment on above: INR Therapeutic Rang e A) Pre- and Peroperative OAT started two weeks before surgery. NOT HIP SURGERY: 1.5 - 2.5 HIP SURGERY: 2 - 3 B) Primary and secondary prevention of venous THROMBOSIS: 2 - 3 C) Active venous thrombosis, pulmonary embolism and prevention of recurrent venous thrombosis: 2 - 3 D) Prevention of arterial thromboembolism including patients with mechanical heart valves: 3 - 4.5 Platelets Auto (Bld) [#/Vol] Ordered By: Josep Perdomo on 01-29-2022 Platelets (Bld) [#/Vol] 281 10*3/uL 150-450 [facility] RBC Auto (Bld) [#/Vol]Ordere d By: Josep Perdomo on 01-29-2022 RBC (Bld) [#/Vol] 3.84 10*6/uL 3.60-5.00 [facility] Serum or plasma chloride thomas surement (moles/volume)Ordered By: Josep Perdomo on 01-29-2022 Chloride [Moles/Vol] 105 mmol/L 95-114 [facility] Serum or plasma high density lipoprotein (HDL) cholesterol measurementOrdered By: Josep Perdomo on 01-29-2022 Cholesterol in HDL [Mass/Vol] 61 mg/dL 35-85 [facility] Comment on above: HDL CHOL ATP-III CLA SSIFICATION Cardiovascular Risk HDL > or equal to 60 mg/dL LOW HDL < 40 mg/dL HIGH Serum or plasma potassium me asurement (moles/volume)Ordered By: Josep Perdomo on 01-29-2022 Potassium [Moles/Vol] 3.7 mmol/L 3.5-5.1 [facility] Serum or plasma sodium measu rement (moles/volume)Ordered By: Josep Perdomo on 01-29-2022 Sodium [Moles/Vol] 137 mmol/L 136-146 [facility] Serum or plasma total carbon dioxide measurement (moles/volume)Ordered By: Josep Perdomo on 01-29-2022 CO2 [Moles/Vol] 21.7 mmol/L 22.0-30.0 [facility] Serum or plasma total choles terol/high density lipoprotein (HDL) cholesterol mass ratOrdered By: Josep Perdomo on 01-29-2022 Cholesterol.total/Chol esterol in HDL [Mass ratio] 2.7 {ratio} <5.0 [facility] Serum or plasma urea nitroge n measurement (mass/volume)Ordered By: Josep Perdomo on 01-29-2022 Urea nitrogen [Mass/Vol] 27 mg/dL 9-23 [facility] Yun Ag Negativeon 01-30-20 22 Yun Ag Negative Negative Normal Negative [facility] Comment on above: Result Comment: This is a duplicate Yun SARS Antigen (WILBERT) result to be used for statistical tracking purpose only. PERFORMED BY: [place] [address] PATHOLOGIST 3RD PRESSMAN DORA ALLISON M.D. Performed By: #### C OVID-19 YUN, SOFIANEG #### [address] Triglyceride [Mass/volume] i n Serum or PlasmaOrdered By: Josep Perdomo on 01-29-2022 Triglyceride [Mass/Vol] 92 mg/dL 35-149 [facility] Comment on above: TRIG ATP III CLASSIF ICATION TRIG less than 150 mg/dL Normal TRIG 150-199 mg/dL Borderline high TRIG 200-500 mg/dL High TRIG greater than 500 mg/dL Very high Standard traceable to the Center for Disease Conrtrol and Prevention (CDC) test method. Tobacco Screening.on 022 Adult depression screening assessment No [facility] 250 DO Work Phone: Tobacco use status [facility] b) No [facility] 250 DO Work Phone: ECH echo transthoracicon ECH echo transthoracic [facility] Main [place] [address] [place] [phone] Echocardiogram Signed Patient: Virgilio Johnson MR#: [id number] : 1960 Acct:[id number] Age/Sex: 61 / F ADM Date: 12/17/21 Loc: Room: Type: [facility] Attending Dr: TANNA Cleary APRN Ordering Provider: Yajaira Bhardwaj APRN, CNP Date of Service: 12/17/2109/08/848 ECH/ECH echo transthoracic: murmur, dyspnea;Cardiac murmur Copies to: Yajaira Bhardwaj APRN, CNP William Patrick McGuinn, MD BSA: 2.2 m2 BP: 165/66 mmHg HR: 66 Reason For Study: murmur, dyspnea;Cardiac murmur History: HTN, DM Interpretation Summary Mild to moderate concentric left ventricular hypertrophy. Ejection Fraction = 60-65%. The left atrium appears mildly dilated. Severe valvular aortic stenosis. Mild aortic regurgitation. There is mild tricuspid regurgitation. Procedure/Quality: A two-dimensional transthoracic echocardiogram with color flow and Doppler was performed. The study was technically good in quality. Left Ventricle: The left ventricular size is normal. Mild to moderate concentric left ventricular hypertrophy. Ejection Fraction = 60-65%. No left ventricular thrombus or mass is seen. Left Atrium: The left atrium appears mildly dilated. The atrial septum appears normal. Right Atrium: The right atrium appears normal in size. Right Ventricle: The right ventricular size, thickness and function are normal. Aortic Valve: The aortic valve is moderately calcified. Severe valvular aortic stenosis. Mild aortic regurgitation. Mitral Valve: The mitral valve is mildly sclerotic. Tricuspid Valve: The tricuspid valve is normal. There is mild tricuspid regurgitation. Pulmonic Valve: The pulmonic valve is not well visualized. Arteries: The aortic root is normal size. Mildly dilated ascending aorta. Pericardium/Pleura: No pericardial effusion seen. There is no pleural effusion. IVC/Hepatic Viens: The inferior vena cava is normal in size, with a normal collapsibility index. Measurements with Normals IVSd: 1.4 cm (0.7-1.1 cm)LVIDd: 5.0 cm (3.7-5.4 cm) LVPWd: 1.3 cm (0.7-1.1 cm)LVIDs: 3.2 cm (2.3-3.6 cm) LA dimension: 4.4 cm (2.3-4.0 cm)Ao root diam: 3.1 cm(2.0-3.6 cm) asc Aorta Diam: 3.7 cm(2.1-3.4cm) Doppler with Normals RVSP(TR): 28.9 mmHg (18-35mmHg) LV V1 max: 159.4 cm/sec (0.7-1.7m/s)MV E max gianfranco: 104.0 cm/sec(0.8-1.3m/s) MV A max gianfranco: 109.9 cm/sec(0.0-0.0m/s) MV E/A: 0.95 (<1.5) MMode/2D Measurements Calculations RVDd: 2.8 cm FS: 34.6 % Ao root area: LVOT diam: 2.2 cm TAPSE: 2.8 cm EDV(Teich): 7.4 cm2 LVOT area: 3.9 cm2 115.6 ml ESV(Teich): 42.2 ml EF(Teich): 63.5 % __ LVLd ap4: 9.4 cm SV(MOD-sp4): LAV(MOD-sp4): LA A2 area: 27.8 cm2 EDV(MOD-sp4): 101.4 ml 92.2 ml 156.0 ml LAV(MOD-sp2): LA A4 area: 26.7 cm2 LVLs ap4: 7.2 cm 88.2 ml LA length (vol): ESV(MOD-sp4): 6.1 cm 54.6 ml LA vol: 102.6 ml EF(MOD-sp4): 65.0 % LA vol index: 46.1 ml/m2 Doppler Measurements Calculations MV dec time: E/E' lat: 13.9 MV dec slope: Ao V2 max: 0.29 sec E/E' med: 15.4 419.1 cm/sec 357.5 cm/sec2 Ao max P.3 mmHg Ao mean P.5 mmHg Ao V2 mean: 281.1 cm/sec Ao V2 VTI: 104.7 cm NICOLE(I,D): 1.3 cm2 NICOLE(V,D): 1.5 cm2 __ AI max gianfranco: LV V1 max PG: TV max P.0 mmHg TR max gianfranco: 437.2 cm/sec 10.2 mmHg 244.3 cm/sec AI max P.5 mmHg LV V1 mean PG: TR max PG: AI dec slope: 5.5 mmHg 23.9 mmHg 273.3 cm/sec2 LV V1 mean: RAP systole: AI P1/2t: 468.6 msec 110.2 cm/sec 5.0 mmHg LV V1 VTI: 36.5 cm Transcribed By: SCV Performed At: 12/17/21 0854 Signed By: Galo Birmingham MD 12/17/21 1434 [facility] [place] XR Knee AP and Lateral and [facility] 12-09-2021 IMPRESSION: Postoperative and degenerative findings as described. No acute osseous findings. Agency Manager: [employer] Transcribe Date/Time: Dec 09 2021 11:37A Dictated by : EVANGELISTA LIMON MD This examination was interpreted and the report reviewed and electronically signed by: EVANGELISTA LIMON MD on Dec 09 2021 11:39AM [email or web address] E_DIVISION OF RADIOLOGY * * *Final Report* * * DATE OF EXAM: Dec 09 2021 11:31AM LZX 5209 - XR KNEE 3V AP/LAT/MERCHANT RT / PROCEDURE REASON: multiple diagnoses * * * * Physician Interpretation * * * * EXAMINATION: XR KNEE 3V AP/LAT/MERCHANT RT PATIENT/TECHNOLOGIST PROVIDED HISTORY: f/u rt uni knee replacement.pain CLINICAL INFORMATION ( PROVIDED BY ORDERING CLINICIAN) : S/P right unicompartmental knee replacement Pain due to unicompartmental arthroplasty of knee, subsequent encounter Pain due to unicompartmental arthroplasty of knee, subsequent encounter TECHNIQUE: XR KNEE 3V AP/LAT/MERCHANT RT Laterality: RIGHT Number of different views (projections): 3 M: XB_1 COMPARISON: 08/03/2021 RESULT: No acute fracture or dislocation. Lateral compartment unicondylar arthroplasty of the right knee is again noted without evidence of hardware-related complication. Severe degenerative changes in the patellofemoral and medial compartments are similar to the prior exam. No cement joint effusion. Left total knee arthroplasty is unremarkable on the given projections. [email or web address] E_DIVISION OF RADIOLOGY Provider, Agueda Mayer [facility] - 12/09/2021 * * *Final Report* * * DATE OF EXAM: Dec 09 2021 11:31AM LZX 5209 - XR KNEE 3V AP/LAT/MERCHANT RT / PROCEDURE REASON: multiple diagnoses * * * * Physician Interpretation * * * * EXAMINATION: XR KNEE 3V AP/LAT/MERCHANT RT PATIENT/TECHNOLOGIST PROVIDED HISTORY: f/u rt uni knee replacement.pain CLINICAL INFORMATION ( PROVIDED BY ORDERING CLINICIAN) : S/P right unicompartmental knee replacement Pain due to unicompartmental arthroplasty of knee, subsequent encounter Pain due to unicompartmental arthroplasty of knee, subsequent encounter TECHNIQUE: XR KNEE 3V AP/LAT/MERCHANT RT Laterality: RIGHT Number of different views (projections): 3 M: XB_1 COMPARISON: 08/03/2021 RESULT: No acute fracture or dislocation. Lateral compartment unicondylar arthroplasty of the right knee is again noted without evidence of hardware-related complication. Severe degenerative changes in the patellofemoral and medial compartments are similar to the prior exam. No cement joint effusion. Left total knee arthroplasty is unremarkable on the given projections. IMPRESSION IMPRESSION: Postoperative and degenerative findings as described. No acute osseous findings. Agency Manager: [employer] Transcribe Date/Time: Dec 09 2021 11:37A Dictated by : EVANGELISTA LIMON MD This examination was interpreted and the report reviewed and electronically signed by: EVANGELISTA LIMON MD on Dec 09 2021 11:39AM EST [facility] Radiology Study observation (narrative) [facility] XR Knee AP and Lateral and M erchantsOrdered By: Ccf Provider on 12-09-2021 [facility] COVID Quick Testingon 2021 Result Negative [facility] Other XR Knee - bilateral 3 Viewso n 08-03-2021 IMPRESSION: 1. Unremarkable left total knee arthroplasty. 2. Right knee lateral compartment arthroplasty and severe degenerative arthritis. Agency Manager: [employer] Transcribe Date/Time: Aug 03 2021 9:42A Dictated by : KEMAR WONG MD This examination was interpreted and the report reviewed and electronically signed by: KEMAR WONG MD on Aug 03 2021 9:45AM [facility] DIVISION OF RADIOLOGY * * *Final Report* * * DATE OF EXAM: Aug 03 2021 9:38AM LZX 5635 - XR KNEE 3V AP/LAT/XAVIER CAMPOS / PROCEDURE REASON: multiple diagnoses * * * * Physician Interpretation * * * * HISTORY: f/u knee replacement. Status post left knee replacement S/P right unicompartmental knee replacement . TECHNIQUE: XR KNEE 3V AP/LAT/XAVIER CAMPOS Laterality: BILATERAL Number of different views (projections): 3 each COMPARISON: March 2021 RESULT: On the left status post total knee arthroplasty with a metal-backed patellar component in place. Satisfactory alignment. No fracture identified. Small effusion. On the right status post arthroplasty of the lateral compartment. Severe degenerative changes in the medial compartment and patellofemoral articulation. No fracture. No gross effusion. DIVISION OF RADIOLOGY Provider, [facility] - 08/03/2021 * * *Final Report* * * DATE OF EXAM: Aug 03 2021 9:38AM LZX 5635 - XR KNEE 3V AP/LAT/XAVIER CAMPOS / PROCEDURE REASON: multiple diagnoses * * * * Physician Interpretation * * * * HISTORY: f/u knee replacement. Status post left knee replacement S/P right unicompartmental knee replacement . TECHNIQUE: XR KNEE 3V AP/LAT/XAVIER CAMPOS Laterality: BILATERAL Number of different views (projections): 3 each COMPARISON: March 2021 RESULT: On the left status post total knee arthroplasty with a metal-backed patellar component in place. Satisfactory alignment. No fracture identified. Small effusion. On the right status post arthroplasty of the lateral compartment. Severe degenerative changes in the medial compartment and patellofemoral articulation. No fracture. No gross effusion. IMPRESSION IMPRESSION: 1. Unremarkable left total knee arthroplasty. 2. Right knee lateral compartment arthroplasty and severe degenerative arthritis. [facility] Transcribe Date/Time: Aug 03 2021 9:42A Dictated by : KEMAR WONG MD This examination was interpreted and the report reviewed and electronically signed by: KEMAR WONG MD on Aug 03 2021 9:45AM EST [facility] Radiology Study observation (narrative) [facility] XR Knee - bilateral 3 ViewsO rdered By: Ccf Provider on 08-03-2021 [facility] XR Knee - bilateral 3 Viewso n 03-27-2021 IMPRESSION: POSTOPERATIVE AND DEGENERATIVE FINDINGS, CONSISTENT WITH THE PRIOR. Agency Manager: [facility] Transcribe Date/Time: Mar 27 2021 11:18A Dictated by : GINETTE ORTEGA MD This examination was interpreted and the report reviewed and electronically signed by: GINETTE ORTEGA MD on Mar 27 2021 11:20AM EST DIVISION OF RADIOLOGY * * *Final Report* * * DATE OF EXAM: Mar 27 2021 9:06AM LZX 5635 - XR KNEE 3V AP/LAT/XAVIER CAMPOS / PROCEDURE REASON: multiple diagnoses * * * * Physician Interpretation * * * * HISTORY: Status post left knee replacement S/P right unicompartmental knee replacement TECHNOLOGIST PROVIDED HISTORY (if applicable): bilateral knee replacement check TECHNIQUE: XR KNEE 3V AP/LAT/XAVIER CAMPOS RESULT: Bilateral 3 view knee series, compared with February 02. RIGHT: Again seen to have had resurfacing arthroplasty of the lateral compartment. Hardware without signs of loosening or failure. Advanced joint space narrowing with osteophytes, subchondral cysts and articular surface remodeling in the lateral patellofemoral compartment. Chondrocalcinosis in the medial compartment with preserved joint spaces and small osteophytes. LEFT: Again seen to have had total knee arthroplasty without signs of complication or failure. No effusion, fracture or dislocation. DIVISION OF RADIOLOGY Provider, [facility] - 03/27/2021 * * *Final Report* * * DATE OF EXAM: Mar 27 2021 9:06AM LZX 5635 - XR KNEE 3V AP/LAT/XAVIER CAMPOS / PROCEDURE REASON: multiple diagnoses * * * * Physician Interpretation * * * * HISTORY: Status post left knee replacement S/P right unicompartmental knee replacement TECHNOLOGIST PROVIDED HISTORY (if applicable): bilateral knee replacement check TECHNIQUE: XR KNEE 3V AP/LAT/XAVIER CAMPOS RESULT: Bilateral 3 view knee series, compared with February 02. RIGHT: Again seen to have had resurfacing arthroplasty of the lateral compartment. Hardware without signs of loosening or failure. Advanced joint space narrowing with osteophytes, subchondral cysts and articular surface remodeling in the lateral patellofemoral compartment. Chondrocalcinosis in the medial compartment with preserved joint spaces and small osteophytes. LEFT: Again seen to have had total knee arthroplasty without signs of complication or failure. No effusion, fracture or dislocation. IMPRESSION IMPRESSION: POSTOPERATIVE AND DEGENERATIVE FINDINGS, CONSISTENT WITH THE PRIOR. Agency Manager: [facility] Transcribe Date/Time: Mar 27 2021 11:18A Dictated by : GINETTE ORTEGA MD This examination was interpreted and the report reviewed and electronically signed by: GINETTE ORTEGA MD on Mar 27 2021 11:20AM EST [facility] Radiology Study observation (narrative) [facility] XR Knee - bilateral 3 ViewsO rdered By: Ccf Provider on 03-27-2021 [facility] XR Knee - left 4 Viewson IMPRESSION: Left total knee arthroplasty in place with no evidence of complications. Agency Manager: [facility] Transcribe Date/Time: Feb 02 2021 10:37A Dictated by : ELLEN HANEY MD This examination was interpreted and the report reviewed and electronically signed by: ELLEN HANEY MD on Feb 02 2021 10:38AM [facility] DIVISION OF RADIOLOGY * * *Final Report* * * DATE OF EXAM: Feb 02 2021 10:03AM LZX 5202 - XR KNEE 4V AP/PA BOTH+LAT/XAVIER LT / PROCEDURE REASON: Pain * * * * Physician Interpretation * * * * HISTORY: Pain . lt knee pain TECHNIQUE: XR KNEE 4V AP/PA BOTH+LAT/XAVIER LT Laterality: LEFT Number of different views (projections): 4 COMPARISON: Radiographs dated 02/27/2020 RESULT: Left total knee arthroplasty in place with no evidence of hardware failure or loosening. Right lateral unicompartmental arthroplasty in place with incomplete evaluation of the hardware. There is no acute fracture or dislocation. There is a small left knee joint effusion. There is no soft tissue swelling. No other significant abnormality. DIVISION OF RADIOLOGY Provider, Agueda [facility] - 02/02/2021 * * *Final Report* * * DATE OF EXAM: Feb 02 2021 10:03AM LZX 5202 - XR KNEE 4V AP/PA BOTH+LAT/XAVIER LT / PROCEDURE REASON: Pain * * * * Physician Interpretation * * * * HISTORY: Pain . lt knee pain TECHNIQUE: XR KNEE 4V AP/PA BOTH+LAT/XAVIER LT Laterality: LEFT Number of different views (projections): 4 COMPARISON: Radiographs dated 02/27/2020 RESULT: Left total knee arthroplasty in place with no evidence of hardware failure or loosening. Right lateral unicompartmental arthroplasty in place with incomplete evaluation of the hardware. There is no acute fracture or dislocation. There is a small left knee joint effusion. There is no soft tissue swelling. No other significant abnormality. IMPRESSION IMPRESSION: Left total knee arthroplasty in place with no evidence of complications. Agency Manager: [employer] Transcribe Date/Time: Feb 02 2021 10:37A Dictated by : ELLEN HANEY MD This examination was interpreted and the report reviewed and electronically signed by: ELLEN HANEY MD on Feb 02 2021 10:38AM [facility] Radiology Study observation (narrative) [facility] XR Knee - left 4 ViewsOrdere d By: Ccf Provider on 02-02-2021 [facility] XR Knee AP and Lateral and M ofe 02-27-2020 IMPRESSION: STABLE POSTSURGICAL CHANGE OF TOTAL KNEE ARTHROPLASTY Agency Manager: [facility] Transcribe Date/Time: Feb 27 2020 10:45A Dictated by : ANN AU MD This examination was interpreted and the report reviewed and electronically signed by: ANN AU MD on Feb 27 2020 10:46AM [facility] DIVISION OF RADIOLOGY * * *Final Report* * * DATE OF EXAM: Feb 27 2020 10:08AM LZX 5208 - XR KNEE 3V AP/LAT/MERCHANT LT / PROCEDURE REASON: Status post left knee replacement * * * * Physician Interpretation * * * * HISTORY: Status post left knee replacement TECHNIQUE: 3 views left knee COMPARISON: 02/04/2020 RESULT: There is unchanged appearing total knee arthroplasty with satisfactory alignment. No acute fracture or evidence of hardware failure. There is soft tissue swelling anteriorly. Postoperative soft tissue gas has resolved. DIVISION OF RADIOLOGY Provider, Agueda crouch Harmans - 02/27/2020 * * *Final Report* * * DATE OF EXAM: Feb 27 2020 10:08AM LZX 5208 - XR KNEE 3V AP/LAT/MERCHANT LT / PROCEDURE REASON: Status post left knee replacement * * * * Physician Interpretation * * * * HISTORY: Status post left knee replacement TECHNIQUE: 3 views left knee COMPARISON: 02/04/2020 RESULT: There is unchanged appearing total knee arthroplasty with satisfactory alignment. No acute fracture or evidence of hardware failure. There is soft tissue swelling anteriorly. Postoperative soft tissue gas has resolved. IMPRESSION IMPRESSION: STABLE POSTSURGICAL CHANGE OF TOTAL KNEE ARTHROPLASTY Agency Manager: [facility] Transcribe Date/Time: Feb 27 2020 10:45A Dictated by : ANN AU MD This examination was interpreted and the report reviewed and electronically signed by: ANN AU MD on Feb 27 2020 10:46AM EST [facility] Radiology Study observation (narrative) [facility] XR Knee AP and Lateral and M erchantsOrdered By: Ccf Provider on 02-27-2020 [facility] Vital Signs Date Time Vital Sign Value Performing Clinician Facility 11-16-2024 08:08-0400 Body height 172.7 cm Valentina Gregg MD Work Phone: [facility] 11-16-2024 08:08-0400 Body mass index (BMI) [Ratio] 34.52 kg/m2 Valentina Gregg MD Work Phone: [facility] 11-16-2024 08:08-0400 Body weight 102.97 kg Valentina Gregg MD Work Phone: [facility] 09-17-2024 08:03-0500 Body height 172.7 cm Noemi Argueta NP Work Phone: [facility] 09-17-2024 08:03-0500 Body mass index (BMI) [Ratio] 34.52 kg/m2 Noemi Warchol INDUSTRIAL CHEMISTRY TEACHER Work Phone: [facility] 09-17-2024 08:03-0500 Body temperature 97.11 [degF] Noemi Warchol INDUSTRIAL CHEMISTRY TEACHER Work Phone: [facility] 09-17-2024 08:03-0500 Body weight 102.97 kg Noemi Warchol INDUSTRIAL CHEMISTRY TEACHER Work Phone: [facility] 09-17-2024 08:03-0500 Diastolic blood pressure 60 mm[Hg] Noemi Warchol INDUSTRIAL CHEMISTRY TEACHER Work Phone: [facility] 09-17-2024 08:03-0500 Heart rate 76 /min Noemi Warchol INDUSTRIAL CHEMISTRY TEACHER Work Phone: [facility] 09-17-2024 08:03-0500 Respiratory rate 20 /min Noemi Warchol INDUSTRIAL CHEMISTRY TEACHER Work Phone: [facility] 09-17-2024 08:03-0500 SaO2% (BldA) [Mass fraction] 97 % Noemi Warchol INDUSTRIAL CHEMISTRY TEACHER Work Phone: [facility] 09-17-2024 08:03-0500 Systolic blood pressure 126 mm[Hg] Noemi Warchol INDUSTRIAL CHEMISTRY TEACHER Work Phone: [facility] 08-03-2024 08:55-0500 Body height 172.7 cm Noemi Warchol INDUSTRIAL CHEMISTRY TEACHER Work Phone: [facility] 08-03-2024 08:55-0500 Body mass index (BMI) [Ratio] 34.82 kg/m2 Noemi Warchol INDUSTRIAL CHEMISTRY TEACHER Work Phone: [facility] 08-03-2024 08:55-0500 Body weight 103.87 kg Noemi Warchol INDUSTRIAL CHEMISTRY TEACHER Work Phone: [facility] 08-03-2024 08:55-0500 Diastolic blood pressure 70 mm[Hg] Noemi Warchol INDUSTRIAL CHEMISTRY TEACHER Work Phone: [facility] 08-03-2024 08:55-0500 Heart rate 65 /min Noemi Warchol INDUSTRIAL CHEMISTRY TEACHER Work Phone: [facility] 08-03-2024 08:55-0500 Respiratory rate 16 /min Noemi Warchol INDUSTRIAL CHEMISTRY TEACHER Work Phone: [facility] 08-03-2024 08:55-0500 SaO2% (BldA) [Mass fraction] 97 % Noemi Argueta INDUSTRIAL CHEMISTRY TEACHER Work Phone: [facility] 08-03-2024 08:55-0500 Systolic blood pressure 122 mm[Hg] Noemi Argueta INDUSTRIAL CHEMISTRY TEACHER Work Phone: [facility] 07-07-2024 08:57-0500 Body height 172.7 cm Valentina Gregg MD Work Phone: [facility] 07-07-2024 08:57-0500 Body mass index (BMI) [Ratio] 34.06 kg/m2 Valentina Gregg MD Work Phone: [facility] 07-07-2024 08:57-0500 Body weight 101.61 kg Valentina Gregg MD Work Phone: [facility] 07-07-2024 08:57-0500 Diastolic blood pressure 80 mm[Hg] Valentina Gregg MD Work Phone: [facility] 07-07-2024 08:57-0500 Systolic blood pressure 160 mm[Hg] Valentina Gregg MD Work Phone: [facility] 06-20-2024 08:26-0500 Body height 172.7 cm Bin Bradford DPM FACFAS Work Phone: [facility] 06-20-2024 08:26-0500 Body mass index (BMI) [Ratio] 34.21 kg/m2 Bin Bradford DPM FACFAS Work Phone: [facility] 06-20-2024 08:26-0500 Body weight 102.06 kg Bin Bradford DPM FACFAS Work Phone: [facility] 06-20-2024 08:26-0500 Diastolic blood pressure 71 mm[Hg] Bin Bradford DPM FACFAS Work Phone: [facility] 06-20-2024 08:26-0500 Heart rate 68 /min Bin Bradford DPM FACFAS Work Phone: [facility] 06-20-2024 08:26-0500 Systolic blood pressure 128 mm[Hg] Bin Dolce DPM FACFAS Work Phone: [facility] 06-06-2024 08:31-0500 Body height 172.7 cm Bin Dolce DPM FACFAS Work Phone: [facility] 06-06-2024 08:31-0500 Body mass index (BMI) [Ratio] 34.21 kg/m2 Bin Dolce DPM FACFAS Work Phone: [facility] 06-06-2024 08:31-0500 Body weight 102.06 kg Bin Dolce DPM FACFAS Work Phone: [facility] 06-06-2024 08:31-0500 Diastolic blood pressure 67 mm[Hg] Bin Dolce DPM FACFAS Work Phone: [facility] 06-06-2024 08:31-0500 Heart rate 70 /min Bin Dolce DPM FACFAS Work Phone: [facility] 06-06-2024 08:31-0500 Systolic blood pressure 132 mm[Hg] Bin Dolce DPM FACFAS Work Phone: [facility] 05-29-2024 09:01-0500 Body height 172.7 cm Bin Dolce DPM FACFAS Work Phone: [facility] 05-29-2024 09:01-0500 Body mass index (BMI) [Ratio] 34.21 kg/m2 Bin Dolce DPM FACFAS Work Phone: [facility] 05-29-2024 09:01-0500 Body weight 102.06 kg Bin Dolce DPM FACFAS Work Phone: [facility] 05-29-2024 09:01-0500 Diastolic blood pressure 68 mm[Hg] Bin Dolce DPM FACFAS Work Phone: [facility] 05-29-2024 09:01-0500 Heart rate 70 /min Bin Dolce DPM FACFAS Work Phone: [facility] 05-29-2024 09:01-0500 Systolic blood pressure 130 mm[Hg] Bin Dolce DPM FACFAS Work Phone: [facility] 05-22-2024 11:33-0500 Body height 172.7 cm Bin Dolce DPM FACFAS Work Phone: [facility] 05-22-2024 11:33-0500 Body mass index (BMI) [Ratio] 34.21 kg/m2 Bin Dolce DPM FACFAS Work Phone: [facility] 05-22-2024 11:33-0500 Body weight 102.06 kg Bin Dolce DPM FACFAS Work Phone: [facility] 05-22-2024 11:33-0500 Diastolic blood pressure 67 mm[Hg] Bin Dolce DPM FACFAS Work Phone: [facility] 05-22-2024 11:33-0500 Heart rate 68 /min Bin Dolce DPM FACFAS Work Phone: [facility] 05-22-2024 11:33-0500 Systolic blood pressure 132 mm[Hg] Bin Dolce DPM FACFAS Work Phone: [facility] 05-15-2024 09:38-0400 Body height 172.7 cm Bin Dolce DPM FACFAS Work Phone: [facility] 05-15-2024 09:38-0400 Body mass index (BMI) [Ratio] 34.21 kg/m2 Bin Dolce DPM FACFAS Work Phone: [facility] 05-15-2024 09:38-0400 Body weight 102.06 kg Bin Dolce DPM FACFAS Work Phone: [facility] 05-15-2024 09:38-0400 Diastolic blood pressure 64 mm[Hg] Bin Dolce DPM FACFAS Work Phone: [facility] 05-15-2024 09:38-0400 Heart rate 69 /min Bin Dolce DPM FACFAS Work Phone: [facility] 05-15-2024 09:38-0400 Systolic blood pressure 131 mm[Hg] Bin Bradford DPM FACFAS Work Phone: [facility] 03-30-2024 08:47-0400 Body height 172.7 cm Noemi Cruzchol INDUSTRIAL CHEMISTRY TEACHER Work Phone: [facility] 03-30-2024 08:47-0400 Body mass index (BMI) [Ratio] 34.3 kg/m2 Noemi Warchol INDUSTRIAL CHEMISTRY TEACHER Work Phone: [facility] 03-30-2024 08:47-0400 Body temperature 97.3 [degF] Noemi Warchol INDUSTRIAL CHEMISTRY TEACHER Work Phone: [facility] 03-30-2024 08:47-0400 Body weight 102.33 kg Noemi Warchol INDUSTRIAL CHEMISTRY TEACHER Work Phone: [facility] 03-30-2024 08:47-0400 Diastolic blood pressure 62 mm[Hg] Noemi Warchol INDUSTRIAL CHEMISTRY TEACHER Work Phone: [facility] 03-30-2024 08:47-0400 Heart rate 68 /min Noemi Warchol INDUSTRIAL CHEMISTRY TEACHER Work Phone: [facility] 03-30-2024 08:47-0400 SaO2% (BldA) [Mass fraction] 98 % Noemi Warchol INDUSTRIAL CHEMISTRY TEACHER Work Phone: [facility] 03-30-2024 08:47-0400 Systolic blood pressure 130 mm[Hg] Noemi Warchol INDUSTRIAL CHEMISTRY TEACHER Work Phone: [facility] 03-24-2024 09:07-0400 Body height 172.7 cm Valentina Gregg MD Work Phone: [facility] 03-24-2024 09:07-0400 Body mass index (BMI) [Ratio] 34.06 kg/m2 Valentina Gregg MD Work Phone: [facility] 03-24-2024 09:07-0400 Body weight 101.61 kg Valentina Gregg MD Work Phone: [facility] 03-24-2024 09:07-0400 Diastolic blood pressure 98 mm[Hg] Valentina Gregg MD Work Phone: [facility] 03-24-2024 09:07-0400 Systolic blood pressure 172 mm[Hg] Valentina Gregg MD Work Phone: [facility] 03-16-2024 10:01-0400 Body height 175.3 cm Josep Perdomo MD Work Phone: [facility] 03-16-2024 10:01-0400 Body mass index (BMI) [Ratio] 33.58 kg/m2 Josep Perdomo MD Work Phone: [facility] 03-16-2024 10:01-0400 Body weight 103.15 kg Josep Perdomo MD Work Phone: [facility] 03-16-2024 10:01-0400 Diastolic blood pressure 64 mm[Hg] Josep Perdomo MD Work Phone: [facility] 03-16-2024 10:01-0400 Heart rate 64 /min Josep Perdomo MD Work Phone: [facility] 03-16-2024 10:01-0400 Systolic blood pressure 138 mm[Hg] Josep Perdomo MD Work Phone: [facility] 09-09-2023 11:55-0500 Diastolic blood pressure 68 mm[Hg] Josep Perdomo MD Work Phone: [facility] 09-09-2023 11:55-0500 Systolic blood pressure 138 mm[Hg] Josep Perdomo MD Work Phone: [facility] 09-09-2023 11:40-0500 Body height 172.7 cm Josep Perdomo MD Work Phone: [facility] 09-09-2023 11:40-0500 Body mass index (BMI) [Ratio] 35.28 kg/m2 Josep Perdomo MD Work Phone: [facility] 09-09-2023 11:40-0500 Body weight 105.23 kg Josep Perdomo MD Work Phone: [facility] 09-09-2023 11:40-0500 Heart rate 72 /min Josep Perdomo MD Work Phone: [facility] 11-30-2022 13:11-0400 Diastolic blood pressure 64 mm[Hg] Oswaldo Conroy [employer] Work Phone: [facility] DO Work Phone: 11-30-2022 13:11-0400 Systolic blood pressure 150 mm[Hg] Oswaldo Conroy [employer] Work Phone: [facility] DO Work Phone: 11-30-2022 13:08-0400 Body height 172.72 cm Oswaldo Conroy [employer] Work Phone: [facility] DO Work Phone: 11-30-2022 13:08-0400 Body mass index (BMI) [Ratio] 39.53 kg/m2 Oswaldo Conroy [employer] Work Phone: [facility] DO Work Phone: 11-30-2022 13:08-0400 Body surface area Derived from formula 2.28 m2 Oswaldo Conroy [employer] Work Phone: [facility] DO Work Phone: 11-30-2022 13:08-0400 Body weight 117.94 kg Oswaldo Conroy [employer] Work Phone: [facility] DO Work Phone: 11-30-2022 13:08-0400 Diastolic blood pressure 70 mm[Hg] Oswaldo Conroy [employer] Work Phone: [facility] DO Work Phone: 11-30-2022 13:08-0400 Heart rate 80 /min Oswaldo A Grewal Work Phone: [facility] DO Work Phone: 11-30-2022 13:08-0400 Systolic blood pressure 150 mm[Hg] Oswaldo A Grewal Work Phone: [facility] DO Work Phone: 10-06-2022 15:59-0400 Body height 172.72 cm Oswaldo A Grewal Work Phone: [facility] DO Work Phone: 10-06-2022 15:59-0400 Body mass index (BMI) [Ratio] 38.01 kg/m2 Oswaldo A [employer] Work Phone: [facility] DO Work Phone: 10-06-2022 15:59-0400 Body surface area Derived from formula 2.25 m2 Oswaldo A [employer] Work Phone: [facility] DO Work Phone: 10-06-2022 15:59-0400 Body weight 113.4 kg Oswaldo A Grewal Work Phone: [facility] DO Work Phone: 10-06-2022 15:59-0400 Diastolic blood pressure 70 mm[Hg] Oswaldo A Grewal Work Phone: [facility] DO Work Phone: 10-06-2022 15:59-0400 Heart rate 80 /min Oswaldo A Grewal Work Phone: [facility] DO Work Phone: 10-06-2022 15:59-0400 Systolic blood pressure 170 mm[Hg] Oswaldo A Grewal Work Phone: [facility] DO Work Phone: 08-05-2022 08:37-0500 Body height 172.7 cm Pacc 4 Work Phone: [facility] 08-05-2022 08:37-0500 Body temperature 97.5 [degF] Pacc 4 Work Phone: [facility] 08-05-2022 08:37-0500 Body weight 115.21 kg Pacc 4 Work Phone: [facility] 08-05-2022 08:37-0500 Diastolic blood pressure 62 mm[Hg] Pacc 4 Work Phone: [facility] 08-05-2022 08:37-0500 Heart rate 65 /min Pacc 4 Work Phone: [facility] 08-05-2022 08:37-0500 Respiratory rate 16 /min Pacc 4 Work Phone: [facility] 08-05-2022 08:37-0500 SaO2% (BldA) [Mass fraction] 99 % Pacc 4 Work Phone: [facility] 08-05-2022 08:37-0500 Systolic blood pressure 159 mm[Hg] Pacc 4 Work Phone: [facility] 06-02-2022 12:50-0500 Diastolic blood pressure 77 mm[Hg] CURATOR OF PHOTOGRAPHY AND PRINTS Yajaira Kiepert Work Phone: [facility] 06-02-2022 12:50-0500 Heart rate 62 /min CURATOR OF PHOTOGRAPHY [employer] PRINTS Yajaira Kiepert Work Phone: [facility] 06-02-2022 12:50-0500 Respiratory rate 16 /min CURATOR OF PHOTOGRAPHY [employer] PRINTS Yajaira Kiepert Work Phone: [facility] 06-02-2022 12:50-0500 SaO2% (BldA) [Mass fraction] 94 % CURATOR OF PHOTOGRAPHY [employer] PRINTS Yajaira Kiepert Work Phone: [facility] 06-02-2022 12:50-0500 Systolic blood pressure 170 mm[Hg] MARY KATE Chackoepert Work Phone: [facility] 06-02-2022 12:20-0500 Inhaled oxygen flow rate 1 L/min MARY KATE Chackoepert Work Phone: [facility] 06-02-2022 10:44-0500 Body height 172.72 cm MARY KATE Chackoepert Work Phone: [facility] 06-02-2022 10:44-0500 Body mass index (BMI) [Ratio] 38.9 kg/m2 MARY KATE Chackoepert Work Phone: [facility] 06-02-2022 10:44-0500 Body weight 116 kg MARY KATE Chackoepert Work Phone: [facility] 06-02-2022 10:40-0500 Body temperature 97.7 [degF] MARY KATE Eddyt Work Phone: [facility] 04-01-2022 16:36-0400 Diastolic blood pressure 87 mm[Hg] Oswaldo Rafiq [employer] Work Phone: [facility] DO Work Phone: 04-01-2022 16:36-0400 Systolic blood pressure 139 mm[Hg] Oswaldo Rafiq [employer] Work Phone: [facility] DO Work Phone: 04-01-2022 14:50-0400 Body height 172.72 cm Oswaldo A Grewal Work Phone: [facility] DO Work Phone: 04-01-2022 14:50-0400 Body mass index (BMI) [Ratio] 38.32 kg/m2 Oswaldo A Grewal Work Phone: [facility] DO Work Phone: 04-01-2022 14:50-0400 Body surface area Derived from formula 2.25 m2 Oswaldo Conroy Grewal Work Phone: [facility] DO Work Phone: 04-01-2022 14:50-0400 Body weight 114.31 kg Oswaldo A Grewal Work Phone: [facility] DO Work Phone: 04-01-2022 14:50-0400 Diastolic blood pressure 72 mm[Hg] Oswaldo A Grewal Work Phone: [facility] DO Work Phone: 04-01-2022 14:50-0400 Heart rate 72 /min Oswaldo Conroy Grewal Work Phone: [facility] DO Work Phone: 04-01-2022 14:50-0400 Systolic blood pressure 162 mm[Hg] Oswaldo A Grewal Work Phone: [facility] DO Work Phone: 03-20-2022 18:00-0400 Body temperature 97.52 [degF] Oswaldolily Samter Other Phone: [facility] 03-20-2022 18:00-0400 Diastolic blood pressure 61 mm[Hg] Oswaldo Grewal Other Phone: [facility] 03-20-2022 18:00-0400 Heart rate 87 /min Oswaldo Grewal Other Phone: [facility] 03-20-2022 18:00-0400 Respiratory rate 25 /min Oswaldo Grewal Other Phone: [facility] 03-20-2022 18:00-0400 SaO2% (BldA) [Mass fraction] 95 % Oswaldo Grewal Other Phone: [facility] 03-20-2022 18:00-0400 Systolic blood pressure 153 mm[Hg] Oswaldo Grewal Other Phone: [facility] 03-08-2022 10:28-0400 Body height 172.72 cm Oswaldo Conroy [employer] Work Phone: UK-Jfipcnsuyz-SZL [facility] [address] [place] Work Phone: 03-08-2022 10:28-0400 Body mass index (BMI) [Ratio] 38.32 kg/m2 Oswaldo Conroy [employer] Work Phone: KI-Sorlcqwxbx-QXO [facility] [address] [place] Work Phone: 03-08-2022 10:28-0400 Body surface area Derived from formula 2.25 m2 Oswaldo Conroy [employer] Work Phone: KS-Vkwcxklptm-BRS [facility] [address] [place] Work Phone: 03-08-2022 10:28-0400 Body weight 114.31 kg Oswaldo Conroy [employer] Work Phone: EP-Blvktntmpg-RZG [facility] [address] [place] Work Phone: 03-08-2022 10:28-0400 Diastolic blood pressure 66 mm[Hg] Oswaldo Conroy [employer] Work Phone: RY-Puehiwwpvx-SLF [facility] [address] [place] Work Phone: 03-08-2022 10:28-0400 Heart rate 72 /min Oswaldo Conroy [employer] Work Phone: MH-Nokcqefdxx-LSG [facility] [address] [place] Work Phone: 03-08-2022 10:28-0400 SaO2% (BldA) [Mass fraction] 98 % Oswaldo Conroy [employer] Work Phone: LS-Msxsrkdhcj-RWT [facility] [address] [place] Work Phone: 03-08-2022 10:28-0400 Systolic blood pressure 157 mm[Hg] Oswaldo Conroy [employer] Work Phone: AH-Dwhlqbaovn-IOF [facility] [address] [place] Work Phone: 03-08-2022 10:28-0400 0 1 Oswaldo Rafiq Grewal Work Phone: [facility] [address] [place] Work Phone: Comment on above: [employer] 02-22-2022 11:00-0400 Body height 176.53 cm Kindra De Jesusault Other [employer] Other 02-22-2022 11:00-0400 Body mass index (BMI) [Ratio] 36.39 kg/m2 Kindra De Jesusault Other [employer] Other 02-22-2022 11:00-0400 Body temperature 98.1 [degF] Kindra De Jesusault Other [employer] Other 02-22-2022 11:00-0400 Body weight 113.4 kg Kindra Peralta Other [employer] Other 02-22-2022 11:00-0400 Respiratory rate 18 /min Kindra Peralta Other [employer] Other 02-22-2022 11:00-0400 SaO2% (BldA) [Mass fraction] 98 % Kindra De Jesusault Other [employer] Other 02-02-2022 16:25-0400 60 1 Oswaldo A Grewal Work Phone: [facility] DO Work Phone: Comment on above: [id number] 02-02-2022 15:32-0400 Body temperature 97.8 [degF] CURATOR OF PHOTOGRAPHY AND PRINTS Yajaira Kiepert Work Phone: [facility] 02-02-2022 15:32-0400 Diastolic blood pressure 62 mm[Hg] CURATOR [employer]OTOGR[employer]HY [employer]INTS Yajaira Kiepert Work Phone: [facility] 02-02-2022 15:32-0400 Heart rate 68 /min CURATOR [employer]OTOGR[employer]HY [employer]IN[employer] Yajaira Kiepert Work Phone: [facility] 02-02-2022 15:32-0400 Respiratory rate 16 /min CURATOR [employer] PHOTOGRAPHY [employer]INTS Yajaira Kiepert Work Phone: [facility] 02-02-2022 15:32-0400 SaO2% (BldA) [Mass fraction] 96 % CURATOR [employer] PHOTOGR[employer]HY [employer]INTS Yajaira Kiepert Work Phone: [facility] 02-02-2022 15:32-0400 Systolic blood pressure 142 mm[Hg] CURATOR OF PHOTOGRAPHY [employer]INTS Yajaira Kiepert Work Phone: [facility] 02-02-2022 10:57-0400 Body height 172.72 cm CURATOR OF [employer]OTOGR[employer]HY [employer]IN[employer] Yajaira Kiepert Work Phone: [facility] 02-02-2022 10:57-0400 Body mass index (BMI) [Ratio] 38.2 kg/m2 CURATOR [employer]OTO[employer]HY [employer]IN[employer] Yajaira Kiepert Work Phone: [facility] 02-02-2022 10:57-0400 Body weight 114 kg CURATOR OF PHOTOGRAPHY [employer] PRINTS Yajaira Chackoepert Work Phone: [facility] 02-02-2022 00:00-0400 65 1 Oswaldo Conroy [employer] Work Phone: [facility] DO Work Phone: Comment on above: [id number] 12-23-2021 14:35-0400 Body height 172.72 cm Oswaldo Conroy [employer] Work Phone: [facility] DO Work Phone: 12-23-2021 14:35-0400 Body mass index (BMI) [Ratio] 37.86 kg/m2 Oswaldo Conroy Grewal Work Phone: [facility] DO Work Phone: 12-23-2021 14:35-0400 Body surface area Derived from formula 2.24 m2 Oswaldo A [employer] Work Phone: [facility] DO Work Phone: 12-23-2021 14:35-0400 Body weight 112.95 kg Oswaldo A [employer] Work Phone: [facility] DO Work Phone: 12-23-2021 14:35-0400 Diastolic blood pressure 70 mm[Hg] Oswaldo A [employer] Work Phone: [facility] DO Work Phone: 12-23-2021 14:35-0400 Heart rate 69 /min Oswaldo A [employer] Work Phone: [facility] DO Work Phone: 12-23-2021 14:35-0400 Systolic blood pressure 161 mm[Hg] Oswaldo A [employer] Work Phone: [facility] DO Work Phone: 12-23-2021 14:32-0400 Body height 172.72 cm Oswaldo A [employer] Work Phone: [facility] DO Work Phone: 12-23-2021 14:32-0400 Body mass index (BMI) [Ratio] 37.86 kg/m2 Oswaldo A [employer] Work Phone: [facility] DO Work Phone: 12-23-2021 14:32-0400 Body surface area Derived from formula 2.24 m2 Oswaldo A [employer] Work Phone: [facility] DO Work Phone: 12-23-2021 14:32-0400 Body weight 112.95 kg Oswaldo A [employer] Work Phone: [facility] DO Work Phone: 12-23-2021 14:32-0400 Diastolic blood pressure 78 mm[Hg] Oswaldo Conroy [employer] Work Phone: [facility] DO Work Phone: 12-23-2021 14:32-0400 Heart rate 69 /min Oswaldo Conroy [employer] Work Phone: [facility] DO Work Phone: 12-23-2021 14:32-0400 Systolic blood pressure 162 mm[Hg] Oswaldo Conroy [employer] Work Phone: [facility] DO Work Phone: 12-17-2021 00:00-0400 65 1 Oswaldo Conroy [employer] Work Phone: [facility] DO Work Phone: Comment on above: [id number] 09-07-2021 10:45-0500 Body height 176.53 cm Kindra Peralta Other [employer] Other 09-07-2021 10:45-0500 Body mass index (BMI) [Ratio] 33.77 kg/m2 Kindra Peralta Other [employer] Other 09-07-2021 10:45-0500 Body temperature 97.7 [degF] Kindra Peralta Other [employer] Other 09-07-2021 10:45-0500 Body weight 105.24 kg Kindra Peralta Other [employer] Other 09-07-2021 10:45-0500 SaO2% (BldA) [Mass fraction] 95 % Kindra Peralta Other [facility] [employer] Other Encounters Encounter Date Encounter Type Care Provider Facility Start: 11-16-2024 End: 11-16-2024 Bamboo [employer] Valentina Gregg MD Work Phone: [facility] Start: 11-16-2024 End: 11-16-2024 [employer] Valentina Gregg MD Work Phone: [facility] Start: 11-16-2024 End: 11-16-2024 Office outpatient visit 25 minutes Valentina Gregg MD Work Phone: [facility] Comment on above: Acute left-sided low back pain with left-sided sciatica; RLS (restless legs syndrome); Carpal tunnel syndrome, bilateral Start: 11-16-2024 End: 11-16-2024 ambulatory VALENTINA GREGG Not Available Start: 11-12-2024 End: 11-12-2024 Refill Guerline R Lause [employer]MI[employer] TEACHER Work Phone: [facility] Comment on above: Irritable bowel synd karlee, unspecified type Start: 10-15-2024 End: 10-15-2024 Refill Guerline R Lause INDUSTRI[employer] CHEMISTRY TEACHER Work Phone: [facility] Comment on above: Acute left-sided low back pain with left-sided sciatica Start: 10-10-2024 End: 10-10-2024 Telephone encounter Valentina Gregg MD Work Phone: [facility] Start: 09-17-2024 End: 09-17-2024 ambulatory NOEMI ARGUETA Not Available Start: 09-17-2024 End: 09-17-2024 Office outpatient visit 25 minutes Noemi Argueta INDUSTRIAL CHEMISTRY TEACHER Work Phone: [facility] Comment on above: Acute left-sided low back pain with left-sided sciatica (Primary Dx) Start: 08-03-2024 End: 08-03-2024 Bamboo flowsheet Noemi Argueta INDUSTRIAL CHEMISTRY TEACHER Work Phone: [facility] Start: 08-03-2024 End: 08-03-2024 Bamboo flowsheet Noemi Argueta INDUSTRIAL CHEMISTRY TEACHER Work Phone: [facility] Start: 08-03-2024 End: 08-03-2024 Office outpatient visit 25 minutes Noemi Argueta INDUSTRIAL CHEMISTRY TEACHER Work Phone: [facility] Comment on above: Type 2 diabetes jewel itus with foot ulcer (CODE) ([facility]) (Primary Dx); Non-pressure chronic ulcer of other part of right foot with fat layer exposed ([facility]); Type 2 diabetes mellitus with diabetic chronic kidney disease ([facility]); Chronic kidney disease, stage 3a (HCC) ([facility]); Type 2 diabetes mellitus with diabetic cataract ([facility]); Carpal tunnel syndrome, bilateral; Irritable bowel syndrome, unspecified type; Restless legs syndrome; Hypothyroidism (acquired) ([facility]); Primary hypertension ([facility] Hypertriglyceridemia ([facility]); Type 2 diabetes mellitus with diabetic cataract, without long-term current use of insulin ([facility]) [E11.36] Start: 08-03-2024 End: 08-03-2024 ambulatory NOEMI ARGUETA Not Available Start: 07-07-2024 End: 07-07-2024 Bamboo flowsheet Valentina Gregg MD Work Phone: [facility] Start: 07-07-2024 End: 07-07-2024 Bamboo flowsheet Valentina Gregg MD Work Phone: [facility] Start: 07-07-2024 End: 07-07-2024 Office outpatient visit 25 minutes Valentina Gregg MD Work Phone: [facility] Comment on above: RLS (restless legs s yndrome); Carpal tunnel syndrome, bilateral Start: 07-07-2024 End: 07-07-2024 ambulatory VALENTINA GREGG Not Available Start: 06-26-2024 End: 06-26-2024 Telephone encounter Valentina Gregg MD Work Phone: [facility] Start: 06-20-2024 End: 06-20-2024 Bamboo flowsheet Bin D Dolce DPM FACFAS Work Phone: [facility] Start: 06-20-2024 End: 06-20-2024 Bamboo flowsheet Bin D Dolce DPM FACFAS Work Phone: [facility] Start: 06-20-2024 End: 06-20-2024 Office outpatient visit 15 minutes Bin D Dolce DPM FAC[employer] Work Phone: [facility] Comment on above: Neoplasm of uncertai n behavior of skin (Primary Dx); Porokeratosis Start: 06-20-2024 End: 06-20-2024 ambulatory BIN D DOLCE Not Available Start: 06-06-2024 End: 06-06-2024 Bamboo flowsheet Bin D Dolce DPM FACFAS Work Phone: [facility] Start: 06-06-2024 End: 06-06-2024 Bamboo flowsheet Bin D Dolce DPM FACFAS Work Phone: [facility] Start: 06-06-2024 End: 06-06-2024 Office outpatient visit 15 minutes Bin D Dolce DPM FACFAS Work Phone: [facility] Comment on above: Neoplasm of uncertai n behavior of skin (Primary Dx); Venous insufficiency (chronic) (peripheral); Chronic foot ulcer, right, with fat layer exposed (CMS/HCC); Cellulitis of foot, right Start: 06-06-2024 End: 06-06-2024 ambulatory BIN D DOLCE Not Available Start: 05-29-2024 End: 05-29-2024 Bamboo flowsheet Bin D Dolce DPM FACFAS Work Phone: [facility] Start: 05-29-2024 End: 05-29-2024 Bamboo flowsheet Bin D Dolce DPM FACFAS Work Phone: [facility] Start: 05-29-2024 End: 05-29-2024 ambulatory BIN D DOLCE Not Available Start: 05-29-2024 End: 05-29-2024 Office outpatient visit 15 minutes Bin D Dolce DPM FAC[employer]AS Work Phone: [facility] Comment on above: Cellulitis of foot, right (Primary Dx); Chronic foot ulcer, right, with fat layer exposed (CMS/HCC); Venous insufficiency (chronic) (peripheral) Start: 05-22-2024 End: 05-22-2024 Bamboo flowsheet Bin D Dolce DPM FACFAS Work Phone: [facility] Start: 05-22-2024 End: 05-22-2024 Bamboo flowsheet Bin D Dolce DPM FACFAS Work Phone: [facility] Start: 05-22-2024 End: 05-22-2024 ambulatory BIN D DOLCE Not Available Start: 05-22-2024 End: 05-22-2024 Office outpatient visit 15 minutes Bin D Dolce DPM FACFAS Work Phone: [facility] Comment on above: Cellulitis of foot, right (Primary Dx); Abscess of right foot; Right foot pain Start: 05-15-2024 End: 05-15-2024 Bamboo flowsheet Bin D Dolce DPM FACFAS Work Phone: [facility] Start: 05-15-2024 End: 05-15-2024 Bamboo flowsheet Bin D Dolce DPM FACFAS Work Phone: [facility] Start: 05-15-2024 End: 05-15-2024 ambulatory BIN D DOLCE Not Available Start: 05-15-2024 End: 05-15-2024 Office outpatient new 30 minutes Bin D Dolce DPM FACFAS Work Phone: [facility] Comment on above: Neoplasm of uncertai n behavior of skin (Primary Dx); Verruca plantaris; Right foot pain; Porokeratosis; Benign neoplasm of unknown origin Start: 05-14-2024 End: 05-14-2024 Refill Noemi Argueta INDUSTRIAL CHEMISTRY TEACHER Work Phone: [facility] Comment on above: Irritable bowel synd karlee, unspecified type Start: 03-30-2024 End: 03-30-2024 Office outpatient visit 25 minutes Noemi Argueta INDUSTRIAL CHEMISTRY TEACHER Work Phone: [facility] Comment on above: Adult general medica l examination (Primary Dx); Atherosclerosis of aorta ([facility]/HCC); Type 2 diabetes mellitus without complication, unspecified whether oil heaterman insulin use (CMS/HCC); Immunization due; Primary hypertension (CMS/HCC); Anemia, unspecified type; Hypomagnesemia Start: 03-30-2024 End: 03-30-2024 Patient encounter status Noemi Argueta INDUSTRIAL CHEMISTRY TEACHER Work Phone: [facility] Work Phone: Start: 03-30-2024 End: 03-30-2024 ambulatory NOEMI ARGUETA Not Available Start: 03-24-2024 End: 03-24-2024 Clinisync Result Encounter Generic External Data Provider [facility] External Department Unsolicited Start: 03-24-2024 End: 03-24-2024 Clinisync Result Encounter Generic External Data Provider [facility] External Department Unsolicited Start: 03-24-2024 End: 03-24-2024 ambulatory VALENTINA GREGG Not Available Start: 03-24-2024 End: 03-24-2024 Office outpatient visit 25 minutes Valentina Gregg MD Work Phone: [facility] Comment on above: Carpal tunnel syndro me, bilateral (Primary Dx); RLS (restless legs syndrome) Start: 03-20-2024 End: 03-20-2024 Telephone encounter Valentina Gregg MD Work Phone: [facility] Start: 03-16-2024 End: 03-16-2024 Office outpatient visit 25 minutes Josep Perdomo MD Work Phone: [facility] Comment on above: Mixed hyperlipidemia (Primary Dx); Essential hypertension, benign; BMI 35.0-35.9,adult; Dyspnea, unspecified type; S/P TAVR (transcatheter aortic valve replacement); Never smoked tobacco Start: 03-15-2024 End: 03-15-2024 Telephone encounter Guerline Escobar INDUSTRIAL CHEMISTRY TEACHER Work Phone: [facility] Start: 12-16-2023 End: 12-16-2023 ambulatory VALENTINA GREGG Not Available Start: 09-09-2023 End: 09-09-2023 ambulatory [facility] Amb[facility] Start: 09-09-2023 End: 09-09-2023 Office outpatient visit 15 minutes Josep Perdomo MD Work Phone: [facility] Comment on above: Essential hypertensi on, benign (Primary Dx); S/P TAVR (transcatheter aortic valve replacement); Mixed hyperlipidemia; Dyspnea, unspecified type; BMI 35.0-35.9,adult Start: 09-02-2023 End: 09-02-2023 ambulatory SELF Facility:[facility] Start: 09-02-2023 End: 09-02-2023 Patient encounter procedure Lucas Levy PA-C Work Phone: Orthopaedics Comment on above: Aftercare following right knee joint replacement surgery (Primary Dx); Status post revision of total knee, right; Status post left knee replacement Start: 07-29-2023 End: 07-29-2023 ambulatory OSWALDO GREWAL Facility:[facility] Start: 07-29-2023 End: 07-29-2023 Subsequent hospital visit by physician Ricky Combs 1 Work Phone: Radiology Comment on above: Status post revision of total knee, 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] Start: 03-17-2023 Office outpatient vi sit 15 minutes Oswaldo Grewal Work Phone: [id number] Work Phone: Start: 03-17-2023 ambulatory EFFIE LUCERO SHERYL [facility] ility:[id number] Start: 03-02-2023 Refill Lucas Levy PA-C Work Phone: Orthopaedics Start: 02-28-2023 End: 02-28-2023 ambulatory VIOLET COMBS Facility:[facility] Start: 02-28-2023 End: 02-28-2023 Patient encounter procedure Violet Combs MD Work Phone: Orthopaedics Comment on above: Status post revision of total knee, right (Primary Dx); Status post left knee replacement Start: 02-28-2023 End: 02-28-2023 Subsequent hospital visit by physician Ricky Pennington Work Phone: Radiology Comment on above: Status post revision of total knee, 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 Work Phone: Start: 11-30-[address] Josep Perdomo Facility: Start: 11-29-2022 End: 11-29-2022 ambulatory OSWALDO GREWAL Facility:[facility] Start: 11-03-2022 End: 11-03-2022 ambulatory LUCAS LEVY Facility:[facility] Start: 10-15-2022 End: 10-15-2022 ambulatory VIOLET COMBS Facility:[facility] Start: 10-15-2022 End: 10-15-2022 Patient encounter procedure Violet Combs MD Work Phone: Orthopaedics Comment on above: Status post revision of total knee, right (Primary Dx) Start: 10-06-2022 Office outpatient vi sit 25 minutes Oswaldo A [facility]al [facility] Work Phone: Start: 10-06-[address] Josep Perdomo Facility: Start: 10-01-2022 End: 10-02-[address] DOCTOR JANSEN Facility: Start: 09-17-2022 End: 09-17-2022 ambulatory Spenser Canchola Facility:[facility] Start: 09-17-2022 End: 09-17-[address] [facility] Work Phone: Start: 09-17-2022 End: 09-17-2022 Patient encounter procedure [facility] [place] Work Phone: Start: 09-07-2022 End: 09-07-2022 ambulatory Shala Aguilar RT(R) Radiology Comment on above: Radiology XR Start: 09-07-2022 End: 09-07-2022 Patient encounter procedure Shala Aguilar RT(R) DANISHA URBANO Comment on above: S/P revision of tota l knee, right (Primary Dx) Start: 09-07-2022 End: 09-07-2022 Subsequent hospital visit by physician Ricky Combs 1 Work Phone: Radiology Comment on above: S/P revision of tota l knee, 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] Start: 09-03-2022 Refill Lucas Levy PA-C Work Phone: Orthopaedics Start: 08-23-2022 Chart Update Oswaldo Grewal Work Phone: [facility] 250 DO Work Phone: Start: 08-19-2022 End: 08-20-2022 Evaluation and management of inpatient VIOLET COMBS Facility:[facility] Start: 08-05-2022 End: 08-05-2022 Patient encounter procedure Violet Combs MD Work Phone: Orthopaedics Comment on above: MRSA (methicillin re sistant Staphylococcus aureus) (Primary Dx); S/P right unicompartmental knee replacement; Failed total knee arthroplasty, sequela Start: 08-05-2022 End: 08-05-2022 Admission to establishment [place] [id number] Work Phone: [place] Start: 08-05-2022 End: 08-05-2022 ambulatory [facility] Work Phone: Pre Anesthesia Comment on above: Preop examination (P rimary Dx); Primary hypertension; Mixed hyperlipidemia; Irritable bowel syndrome, unspecified type; Obesity, Class II, BMI 35-39.9; Aortic valve stenosis, etiology of cardiac valve disease unspecified; RLS (restless legs syndrome); Hypothyroidism, unspecified type Start: 08-05-2022 End: 08-05-2022 [facility] Work Phone: Pre An[facility] Start: 08-04-2022 ambulatory Aline David RN Orthopaed ics Start: 07-26-2022 AUDIT Oswaldo Grewal Work Phone: [facility] [address] [address] [place] Work Phone: Start: 06-29-2022 End: 06-29-2022 ambulatory Noemi Wrightck Facility:[facility] Start: 06-29-2022 End: 06-29-2022 ambulatory CURATOR OF [employer]OTOGR[employer]HY [employer]IN[employer] Yajaira Kiepert Work Phone: [facility] Work Phone: Start: 06-29-2022 End: 06-29-2022 Patient encounter procedure [employer]ATOR [employer] Yajaira Kiepert Work Phone: [facility] [place] Start: 06-28-2022 End: 06-28-2022 ambulatory Spenser Readar Facility:[facility] Start: 06-28-2022 End: 06-28-2022 ambulatory [employer]ATOR [employer]IN[employer] Yajaira Kiepert Work Phone: [facility] Work Phone: Start: 06-28-2022 End: 06-28-2022 Patient encounter procedure [employer]ATOR OF [employer]HY [employer] Yajaira Kiepert Work Phone: [facility] [place] Start: 06-02-2022 End: 06-02-2022 ambulatory Yajaira Kiepert Facility:[facility] Start: 06-02-2022 End: 06-02-2022 Admission to same day surgery center CURATOR OF PHOTOGR[employer]HY [employer]IN[employer] Yajaira Kiepert Work Phone: [facility] [place] Start: 05-31-2022 End: 05-31-2022 ambulatory Yajaira Kiepert Facility:[facility] Start: 05-31-2022 End: 05-31-2022 ambulatory [employer] Yajaira Kiepert Work Phone: [facility] Work Phone: Start: 05-31-2022 End: 05-31-2022 Patient encounter procedure [employer]ATOR [employer] Yajaira Kiepert Work Phone: [facility] Rti-Tbr-Psiaplmn Testing Start: 05-31-2022 End: 05-31-2022 Patient encounter procedure Violet Combs MD Work Phone: Orthopaedics Comment on above: S/P right unicompart mental knee replacement (Primary Dx); Primary osteoarthritis of right knee; Pre-op testing; MRSA (methicillin resistant Staphylococcus aureus) Start: 05-31-2022 End: 05-31-2022 Patient encounter status Voilet Combs MD Work Phone: Orthopaedics Start: 05-31-2022 End: 05-31-2022 Subsequent hospital visit by physician Ricky Comsb 1 Work Phone: Radiology Comment on above: S/P right unicompart mental knee replacement [Z96.651] Start: 05-19-2022 End: 05-19-2022 ambulatory Yajaira Bhardwaj Facility:[facility] Start: 05-19-2022 End: 05-19-2022 ambulatory MARY KATE Bhardwaj Work Phone: [facility] Work Phone: Start: 05-19-2022 End: 05-19-2022 Patient encounter procedure MARY KATE Bhardwaj Work Phone: [facility] Bla-Gbn-Krwtbrcd Testing Start: 05-13-2022 Phys/qhp telephone evaluation 21-30 min Oswaldo Grewal Work Phone: EA-Yxdqcdqxlv-Yqlfpin Work Phone: Start: 05-13-[address] Oswaldo Grewal Facility:[id number] Start: 04-01-2022 Office outpatient vi sit 25 minutes Oswaldo Grewal Work Phone: [facility] DO Work Phone: Start: 04-01-[address] Josep Perdomo Facility: Start: 04-01-2022 Telephone encounter Violet Combs MD Work Phone: Orthopaedics Comment on above: Forms (Extend FMLA) Start: 03-25-2022 End: 03-26-2022 ambulatory NONE LISTED REQUEST Facility:[facility] Start: 03-19-2022 End: 03-20-2022 Evaluation and management of inpatient Lashon Longoria [facility] Rm 09 Start: 03-18-2022 AUDIT Oswaldo Conroy [employer] Work Phone: RK-Srzjhhqumd-DAH [facility] [address] [place] Work Phone: Start: 03-18-2022 End: 03-19-2022 ambulatory NOEMI DANIELS Facility:[facility] Start: 03-17-2022 Chart Update Oswaldo Conroy [employer] Work Phone: XP-Shwybkxxdi-DJO [facility] [address] [place] Work Phone: Start: 03-12-2022 End: 03-13-[address] DOCTOR JANSEN Facility:[facility] Start: 03-08-2022 Current tobacco non- user cad cap copd pv dm Oswaldo Conroy [employer] Work Phone: MB-Yzlfdnokrp-ZBS [facility] [address] [place] Work Phone: Start: 03-02-2022 End: 03-02-2022 ambulatory Yajaira Bhardwaj Facility:[facility] Start: 03-02-2022 End: 03-02-2022 Patient encounter procedure [employer]ATOR [employer]OTOGR[employer]HY [employer]IN[employer] Yajaira Bhardwaj Work Phone: [facility] [place] Start: 02-25-2022 AUDIT Oswaldo Conroy [employer] Work Phone: MT-Kqbtuayoje-CHY [facility] [address] [place] Work Phone: Start: 02-22-2022 End: 02-22-2022 ambulatory Kindra Peralta Other [facility] [employer] Other Start: 02-22-2022 Office outpatient vi sit 25 minutes Kindra Peralta [facility] Start: 02-02-2022 Chart Update Oswaldo Conroy [employer] Work Phone: [facility] DO Work Phone: Start: 02-02-2022 [facility] Provider: Josep Perdomo, Status: Pen, Time: 12:00 PM Oswaldo Grewal Work Phone: [facility] DO Work Phone: Start: 02-02-2022 [facility], Provider: Josep Perdomo, Status: Pen, Time: 10:00 AM Oswaldo Grewal Work Phone: [facility] 250 DO Work Phone: Start: 02-02-2022 End: 02-02-2022 ambulatory Ramsesdeion Saigefrancinei Facility:[facility] Start: 02-02-2022 End: 02-02-2022 Admission to same day surgery center MARY KATE Bhardwaj Work Phone: [facility] Start: 02-01-2022 Chart Update Oswaldo Grewal Work Phone: [facility] DO Work Phone: Start: 01-29-2022 End: 01-29-2022 ambulatory Ramsesdeion Saigefrancinei Facility:[facility] Start: 01-29-2022 End: 01-29-2022 Patient encounter procedure MARY KATE Bhardwaj Work Phone: [facility] Qae-Nhf-Hmbywqsp Testing Start: 12-23-2021 Office consultation new/estab patient 80 min Sowaldo Rafiq Grewal Work Phone: [facility] DO Work Phone: Start: 12-21-2021 ambulatory Aline David RN Orthopaed ics Start: 12-17-2021 End: 12-17-2021 ambulatory Yajaira Kianujat Facility:[facility] Start: 12-11-2021 Telephone encounter Yudith Mercedes APRN.CNP Work Phone: Pre Anesthesia Comment on above: Results Start: 12-09-2021 End: 12-09-2021 Subsequent hospital visit by physician Ricky Combs 1 Work Phone: Radiology Comment on above: S/P right unicompart mental knee replacement [Z96.651] Start: 09-07-2021 End: 09-07-2021 ambulatory Kindra Kathryn Other [facility] [employer] Other Start: 09-07-2021 Office outpatient vi sit 15 minutes Kindra Peralta [facility] Start: 08-03-2021 End: 08-03-2021 Subsequent hospital visit by physician Ricky Combs 1 Work Phone: Radiology Comment on above: Status post left kne e replacement [Z96.652] Start: 03-27-2021 End: 03-27-2021 Subsequent hospital visit by physician Ricky Combs 1 Work Phone: Radiology Comment on above: Status post left kne e replacement [Z96.652] Start: 02-02-2021 End: 02-02-2021 Subsequent hospital visit by physician Ricky Combs 1 Work Phone: Radiology Comment on above: Pain [R52] Start: 02-27-2020 End: 02-27-2020 Subsequent hospital visit by physician Ricky Combs 1 Work Phone: Radiology Comment on above: Status post left kne e replacement [Z96.652] Start: 02-01-2020 End: 02-01-2020 ambulatory Violet Combs Facility:[facility] Patient encounter status Oswaldo Grewal Work Phone: [facility] DO Work Phone: Procedures Date Procedure Procedure Detail Performing Clinician Start: 08-03-2024 Hemoglobin glycosylated a1c Noemi Argueta INDUSTRIAL CHEMISTRY TEACHER Work Phone: Start: 03-30-2024 End: 03-30-2024 Hemoglobin glycosylated a1c Noemi Argueta INDUSTRIAL CHEMISTRY TEACHER Work Phone: Start: 03-24-2024 ALL CBC WITH AUTO DIFF Generic External Data Provider Start: 07-29-2023 Radiologic examination knee 3 views Lucas Scotch PA-C Work Phone: Start: 03-14-2023 Mammography Guerline Escobar INDUSTRIAL CHEMISTRY TEACHER Work Phone: Start: 02-28-2023 Radiologic examination knee 3 views Violet Combs MD Work Phone: Start: 09-07-2022 Radiologic examination knee 3 views Lucas Scotch PA-C Work Phone: Start: 08-05-2022 Iadna s aureus amplified probe tq Violet Combs MD Work Phone: Start: 06-02-2022 Lobectomy of thyroid gland MARY KATE sarahpert Work Phone: Start: 05-31-2022 Radiologic exam knee complete 4/more views Violet Combs MD Work Phone: Start: 03-20-2022 Echocardiography Oswaldo Conroy Grewal Work Phone: Start: 03-19-2022 Echocardiography Oswaldo Conroy Grewal Work Phone: Start: 02-02-2022 CL LHC & COR Angio (Right) MARY KATE pratt Work Phone: Start: 08-03-2021 Radiologic examination knee 3 views Lucas Scotch PA-C Work Phone: Start: 03-27-2021 History of operative procedure on knee S/P right unicompartmental knee replacement Yudith Hobson CURATOR OF PHOTOGRAPHY AND PRINTS.EFFIE Work Phone: Start: 03-27-2021 Radiologic examination knee 3 views Lucas Scotch PA-C Work Phone: Start: 02-02-2021 Radiologic exam knee complete 4/more views Violet Combs MD Work Phone: Start: 02-27-2020 Radiologic examination knee 3 views Violet Combs MD Work Phone: Start: 01-25-2018 Colonoscopy Guerline Escobar INDUSTRIAL CHEMISTRY TEACHER Work Phone: Start: 07-18-2015 Total colonoscopy Oswaldo Grewal Work Phone: Start: 07-03-2014 H/O: artificial joint S/P TKR o/90 days Yudithalpesh Hobson APRN.CNP Work Phone: Arthroplasty of knee Oswaldo Conroy Grewal Work Phone: Laser assisted in si tu keratomileusis Oswaldo Conroy Grewal Work Phone: Laser gonioplasty Oswaldo Conroy Ba xter Work Phone: Replacement of aorti c valve Oswaldo Conroy Grewal Work Phone: SARS Antigen (LFIA) CURATOR OF PHOTOGRAPHY AND PRINTS Car socorro Poxelepert Work Phone: SARS Antigen (LFIA) CURATOR OF PHOTOGRAPHY AND PRINTS Car socorro Poxelepert Work Phone: Surgical procedure o n eye proper Oswaldo Conroy Grewal Work Phone: Plan of Treatment Date Care Activity Detail Author Start: 2036 RSV Vaccine (1 - 1-dose 75+ series) RSV Vaccine (1 - 1-dose 75+ series) [facility] Start: 01-26-2028 Screening for malignant neoplasm of colon [facility] Start: 02-17-2026 DIABETES SCREEN DIABETES SCREEN [facility] Start: 02-17-2026 Diabetes Screening Diabetes Screening [facility] Start: 08-20-2025 DIABETES SCREEN DIABETES SCREEN [facility] Start: 08-05-2025 DIABETES SCREEN DIABETES SCREEN [facility] Start: 06-14-2025 Screening for malignant neoplasm of breast Mammogram [facility] Start: 03-30-2025 Urine screening for protein Diabetes: Urine Protein Screening [facility] Start: 03-16-2025 End: 03-16-2026 US Heart Transthoracic Transthoracic Echo Complete Echocardiography Routine Essential hypertension, benign S/P TAVR (transcatheter aortic valve replacement) Expected: 03/16/2025 (Approximate), Expires: 03/16/2026 [facility] Work Phone: Comment on above: Expected: 03/16/2025 (Approximate), Expi res: 03/16/2026 Start: 02-22-2025 End: 02-22-2025 Patient encounter procedure 02/22/2025 8:30 AM EDT Office Visit [facility] [address] [facility] [address] [place] [address] Valentina Gregg MD [address] [address] [facility] Start: 02-20-2025 Glaucoma screening Diabetes: Retinopathy Screening [facility] Start: 01-31-2025 End: 01-31-2025 Patient encounter procedure [facility] Start: 12-09-2024 Diabetes mellitus screening Diabetes Screening [facility] Start: 12-09-2024 DIABETES SCREEN DIABETES SCREEN [facility] Start: 11-16-2024 End: 11-16-2024 Patient encounter procedure [facility] Comment on above: Arrived Start: 11-01-2024 Hemoglobin A1c measurement Diabetes: Hemoglobin A1C [facility] Start: 10-03-2024 End: 10-03-2024 Patient encounter procedure 10/03/2024 8:30 AM EDT Office Visit [facility] [address] [address] Gretel Barajas, INDUSTRIAL CHEMISTRY TEACHER [address] [id number] [facility] Start: 09-22-2024 Screening for malignant neoplasm of cervix Cervical Cancer Screening [facility] Comment on above: Postponed from 1991 (Patient Refus ed) Start: 08-03-2024 End: 08-03-2024 Patient encounter procedure [facility] Comment on above: Type 2 diabetes mellitus with foot ulcer (CODE) (CMS/HCC); Non-pressure chronic ulcer of other part of right foot with fat layer exposed (CMS/HCC); Type 2 diabetes mellitus with diabetic chronic kidney disease (CMS/HCC); Chronic kidney disease, stage 3a (HCC) (CMS/HCC); Type 2 diabetes mellitus with diabetic cataract (CMS/HCC) Start: 07-07-2024 End: 07-07-2024 Patient encounter procedure 07/07/2024 8:50 AM EST Office Visit [facility] [address] [facility] [address] [place] [address] Valentina Gregg MD [address] [facility] [address] [place] [id number] Arrived [facility] Comment on above: Arrived Start: 06-29-2024 Hemoglobin A1c measurement Diabetes: Hemoglobin A1C [facility] Start: 06-29-2024 End: 06-29-2024 Patient encounter procedure 06/29/2024 8:30 AM EST Office Visit [facility] [address] [facility] [address] [place] [address] Valentina Gregg MD [address] [facility] [address] [place] [address] [place] [address], [place] [id number] [facility] Start: 06-20-2024 End: 06-20-2024 Patient encounter procedure [facility] Comment on above: Arrived Start: 06-18-2024 End: 03-30-2025 CBC W Auto Differential panel - Blood CBC auto differential Lab Routine Anemia, unspecified type Expected: 06/18/2024 (Approximate), Expires: 03/30/2025 [facility] Work Phone: Comment on above: Expected: 06/18/2024 (Approximate), Expi res: 03/30/2025 Start: 06-18-2024 End: 03-30-2025 Cobalamin (Vitamin B12) [Mass/volume] in Serum or Plasma Vitamin B12 Lab Routine Anemia, unspecified type Expected: 06/18/2024 (Approximate), Expires: 03/30/2025 [facility] Comment on above: Expected: 06/18/2024 (Approximate), Expi res: 03/30/2025 Start: 06-18-2024 End: 03-30-2025 Ferritin [Mass/volume] in Serum or Plasma Ferritin Lab Routine Anemia, unspecified type Expected: 06/18/2024 (Approximate), Expires: 03/30/2025 [facility] Comment on above: Expected: 06/18/2024 (Approximate), Expi res: 03/30/2025 Start: 06-18-2024 End: 03-30-2025 Folate [Mass/volume] in Serum or Plasma Folate Lab Routine Anemia, unspecified type Expected: 06/18/2024, Expires: 03/30/2025 [facility] Comment on above: Expected: 06/18/2024, Expires: Start: 06-18-2024 End: 03-30-2025 Iron and Iron binding capacity panel - Serum or Plasma Iron and TIBC Lab Routine Anemia, unspecified type Expected: 06/18/2024 (Approximate), Expires: 03/30/2025 [facility] Comment on above: Expected: 06/18/2024 (Approximate), Expi res: 03/30/2025 Start: 06-18-2024 End: 03-30-2025 Magnesium [Mass/volume] in Serum or Plasma Magnesium Lab Routine Hypomagnesemia Expected: 06/18/2024 (Approximate), Expires: 03/30/2025 [facility] Comment on above: Expected: 06/18/2024 (Approximate), Expi res: 03/30/2025 Start: 06-06-2024 End: 06-06-2024 Patient encounter procedure [facility] Comment on above: Arrived Start: 05-29-2024 End: 05-29-2024 Patient encounter procedure [facility] Start: 05-15-2024 End: 05-15-2024 Patient encounter procedure 05/15/2024 9:30 AM EDT Office Visit [facility] [address] [place] [address] Bin Bradford, DPM FACFAS [address] [place] [address] [facility] Start: 03-30-2024 End: 03-30-2024 Patient encounter procedure 03/30/2024 8:40 AM EDT Office Visit [facility] [address] [place] [phone] Noemi Argueta, INDUSTRIAL CHEMISTRY TEACHER [address] [place] [address] [facility] Start: 03-24-2024 End: 03-24-2024 Patient encounter procedure 03/24/2024 8:40 AM EDT Office Visit [facility] [address] [place] [address] Valentina Gregg MD [address] [facility] [address] [id number] [facility] Start: 03-18-2024 Covid-19 Vaccine ( season) Covid-19 Vaccine ( season) [facility] Start: 03-18-2024 Covid-19 Vaccine ( season) Covid-19 Vaccine ( season) [facility] Start: 03-18-2024 Influenza vaccination Influenza Vaccine (#1) [facility] Start: 03-16-2024 End: 03-16-2025 Alanine aminotransferase [Enzymatic activity/volume] in Serum or Plasma by With P-5'-P Alanine Aminotransferase Lab Routine Mixed hyperlipidemia Expected: 03/16/2024 (Approximate), Expires: 03/16/[address] [facility] Service Area Work Phone: Comment on above: Expected: 03/16/2024 (Approximate), Expi res: 03/16/2025 Start: 03-16-2024 End: 03-16-2025 Aspartate aminotransferase [Enzymatic activity/volume] in Serum or Plasma by With P-5'-P Aspartate Aminotransferase Lab Routine Mixed hyperlipidemia Expected: 03/16/2024 (Approximate), Expires: 03/16/2025 [facility] Work Phone: Comment on above: Expected: 03/16/2024 (Approximate), Expi res: 03/16/2025 Start: 03-16-2024 End: 03-16-2025 Basic metabolic 2000 panel - Serum or Plasma Basic Metabolic Panel Lab Routine Essential hypertension, benign Expected: 03/16/2024 (Approximate), Expires: 03/16/2025 [facility] Work Phone: Comment on above: Expected: 03/16/2024 (Approximate), Expi res: 03/16/2025 Start: 03-16-2024 End: 03-16-2025 Lipid 1996 panel - Serum or Plasma Lipid Panel Lab Routine Mixed hyperlipidemia Expected: 03/16/2024 (Approximate), Expires: 03/16/2025 [facility] Work Phone: Comment on above: Expected: 03/16/2024 (Approximate), Expi res: 03/16/2025 Start: 03-16-2024 End: 03-16-2024 Patient encounter procedure 03/16/2024 10:10 AM EDT Office Visit [facility] [address] [facility] [address] [place] [address] Josep Perdomo MD [address] [facility] [address] [place] [address] [facility] Start: 03-14-2024 Screening for malignant neoplasm of breast Mammogram [facility] Start: 12-24-2023 Hemoglobin A1c measurement Diabetes: Hemoglobin A1C [facility] Start: 07-18-2023 Depression Assessment Depression Assessment [facility] Start: 06-21-2023 FUV, Provider: Josep Perdomo, Status: Pen, Time: 1:50 PM FUV, Provider: Josep Perdomo, Status: Pen, Time: 1:50 PM [facility] 250 DO Work Phone: Start: 06-08-2023 Urine screening for protein Diabetes: Urine Protein Screening [facility] Start: 03-18-2023 Covid-19 Vaccine ( season) Covid-19 Vaccine () [facility] Start: 03-18-2023 Influenza vaccination [facility] Start: 03-17-2023 Patient encounter procedure Outpatient Cardiology [place] [address] Start: 17-Mar-2023 9:00 Amanda Saucedo [facility] Start: 03-17-2023 VIRFUVCARINA, Provider: Amanda Saucedo, Status: Pen, Time: 9:00 AM VIRFUVHOME, Provider: Amanda Saucedo, Status: Pen, Time: 9:00 AM [facility]-[place] MAC2 [address] [place] Work Phone: Start: 01-07-2023 NURSEVST, Provider: NAJMA VIRAMONTES PAN SHOVER 1,[id number], Status: Pen, Time: 10:00 AM NURSEVST, Provider: NAJMA VIRAMONTES PAN SHOVER 1,[id number], Status: Pen, Time: 10:00 AM [facility] [place] Work Phone: Start: 11-30-2022 NURSEVST, Provider: NAJMA VIRAMONTES PAN SHOVER 1,[id number], Status: Pen, Time: 1:00 PM NURSEVST, Provider: NAJMA VIRAMONTES PAN SHOVER 1,[id number], Status: Pen, Time: 1:00 PM [facility] 250 DO Work Phone: Start: 10-06-2022 FUV, Provider: Josep Perdomo, Status: Pen, Time: 3:50 PM FUV, Provider: Josep Perdomo, Status: Pen, Time: 3:50 PM [facility] [address] DO Work Phone: Start: 08-22-2022 End: 10-22-2022 TYPE AND SCREEN,30 DAY TYPE AND SCREEN,30 DAY Blood Bank Routine Pre-op testing Expected: 08/22/2022 (Approximate), Expires: 10/22/2022 [facility] Work Phone: Comment on above: Expected: 08/22/2022 (Approximate), Expi res: 10/22/2022 Start: 08-19-2022 End: 10-19-2022 Bacteria identified in Urine by Culture URINE CULTURE Microbiology Routine Pre-op testing Expected: 08/19/2022 (Approximate), Expires: 10/19/2022 [facility] Work Phone: Comment on above: Expected: 08/19/2022 (Approximate), Expi res: 10/19/2022 Start: 08-19-2022 End: 10-19-2022 STAPH AUREUS PCR STAPH AUREUS PCR Lab Routine MRSA (methicillin resistant Staphylococcus aureus) Expected: 08/19/2022, Expires: 10/19/2022 [facility] Work Phone: Comment on above: Expected: 08/19/2022, Expires: 3 Start: 07-18-2022 DEPRESSION ASSESSMENT DEPRESSION ASSESSMENT [facility] Start: 06-02-2022 End: 06-02-2022 [facility] Start: 06-01-2022 End: 08-01-2022 Basic metabolic 2000 panel - Serum or Plasma BASIC METABOLIC PNL Lab Routine Pre-op testing Expected: 06/01/2022, Expires: 08/01/2022 [facility] Work Phone: Comment on above: Expected: 06/01/2022, Expires: 3 Start: 06-01-2022 End: 08-01-2022 CBC W Auto Differential panel - Blood CBC + DIFF Lab Routine Pre-op testing Expected: 06/01/2022, Expires: 08/01/2022 [facility] Work Phone: Comment on above: Expected: 06/01/2022, Expires: 3 Start: 06-01-2022 End: 08-01-2022 Hemoglobin A1c in Blood HGB A1C Lab Routine Pre-op testing Expected: 06/01/2022, Expires: 08/01/2022 [facility] Work Phone: Comment on above: Expected: 06/01/2022, Expires: 3 Start: 06-01-2022 End: 08-01-2022 Urinalysis complete panel - Urine URINALYSIS, WITH MICROSCOPIC Lab Routine Pre-op testing Expected: 06/01/2022, Expires: 08/01/2022 [facility] Work Phone: Comment on above: Expected: 06/01/2022, Expires: Start: 05-13-2022 VIRFURYAN, Provider: Abdiaziz Nash, Status: Pen, Time: 3:00 PM ANUPAMA, Provider: Abdiaziz Nash, Status: Pen, Time: 3:00 PM [facility] 250 DO Work Phone: Start: 04-22-2022 Patient encounter procedure [facility] Start: 04-22-2022 VIRSINDI, Provider: Abdiaziz Nash, Status: Pen, Time: 9:00 AM VIRFUVCARINA, Provider: Abdiaziz Nash, Status: Pen, Time: 9:00 AM [facility] [facility] 205 [place] Work Phone: Start: 04-01-2022 FUV, Provider: Josep Perdomo, Status: Pen, Time: 2:40 PM FUV, Provider: Josep Perdomo, Status: Pen, Time: 2:40 PM [facility] DO Work Phone: Start: 04-01-2022 Patient encounter procedure [facility] Cardiology Kiki Start: 03-19-2022 End: 03-20-2023 dexmedeTOMIDine 400 microgram/ NaCL 0.9% 100 mL Premix Infusion with Bolus from Bag . ; (PRECEDEX)IntraVenous Initial Dose Rate: 0.2 mcg/kg/hrMAX DOSE Rate = 1.5 mcg/kg/hrTitration Goal 1: RASS between 0 and -2Bidirectional Titration Dose: 25 % Every 30 MinutesNotes from Pharmacy: Initial DOSE Rate = 0.2 mcg/kg/hr = 5.85 mL/hr. Start: 19-Mar-2022 End: 19-Mar-2023 Ordered: 19-Mar-2022 Sachin Brannon Intent [facility] Start: 03-19-2022 End: 03-20-2023 [facility] Comment on above: 1. Dilute 1.3 mL of activated DEFINITY w ith 8.7 mL of normal saline in a 10 mL syringe.2. Inject 0.5 mL of diluted DEFINITY when notified the images/film are unclear to enhance view of Left Ventricular borders.3. Repeat 0.5 mL of DEFINITY until clear images are obtained, not to exceed 10 mLs.4. Once images are obtained or limit of medication is reached, flush line with 10 mL of Normal Saline. When tolerating PO Start: 03-19-2022 End: 03-20-2023 [facility] Start: 03-19-2022 End: 03-20-2023 [facility] Start: 03-18-2022 Influenza vaccination [facility] Start: 02-02-2022 SURGNON, Provider: Josep Perdomo, Status: Pen, Time: 12:00 PM SURGNON, Provider: Josep Perdomo, Status: Pen, Time: 12:00 PM [facility] DO Work Phone: Start: 02-02-2022 [facility] Work Phone: Start: 02-02-2022 SURGNON, Provider: Josep Perdomo, Status: Pen, Time: 10:00 AM SURGNONUH, Provider: Josep Perdomo, Status: Pen, Time: 10:00 AM [facility] DO Work Phone: Start: 11-05-2021 COVID-19 VACCINE (4 - Booster for Moderna series) COVID-19 VACCINE (4 - Booster for Moderna series) [facility] Start: 09-01-2021 COVID-19 VACCINE (4 - Booster for Moderna series) COVID-19 VACCINE (4 - Booster for Moderna series) [facility] Start: 09-01-2021 COVID-19 VACCINE (4 - Moderna series) COVID-19 VACCINE (4 - Moderna series) [facility] Start: 07-18-2021 DEPRESSION ASSESSMENT DEPRESSION ASSESSMENT [facility] Start: 2021 RSV patients and/or patients aged 60+ years (1 - 1-dose 60+ series) RSV patients and/or patients aged 60+ years (1 - 1-dose 60+ series) [facility] Start: 2021 RSV Vaccine (1 - 1-dose 60+ series) RSV Vaccine (1 - 1-dose 60+ series) [facility] Start: 2011 SHINGRIX VACCINE (1 of 2) SHINGRIX VACCINE (1 of 2) [facility] Start: 2011 Zoster Vaccines (1 of 2) Zoster Vaccines (1 of 2) [facility] Start: 08-13-2010 DTaP/Tdap/Td Vaccines (1 - Tdap) DTaP/Tdap/Td Vaccines (1 - Tdap) [facility] Start: 08-13-2010 Urine microalbumin profile DTaP,Tdap,Td Vaccine (1 - Tdap) [facility] Start: 2006 COLOGUARD (FIT-DNA) COLOGUARD (FIT-DNA) [facility] Start: 2006 Colonoscopy COLONOSCOPY [facility] Start: 2006 COLORECTAL CANCER SCREENING COLORECTAL CANCER SCREENING [facility] Start: [address] COLONOGRAPHY [facility] Start: 2006 FECAL OCCULT BLOOD FECAL OCCULT BLOOD [facility] Start: 2006 Lipid panel Lipid Screening [facility] Start: 2006 LIPID SCREEN LIPID SCREEN [facility] Start: 2006 Screening for malignant neoplasm of colon [facility] Start: 2006 SIGMOIDOSCOPY SIGMOIDOSCOPY [facility] Start: 2001 Mammography MAMMOGRAM [facility] Start: 2001 Screening for malignant neoplasm of breast [facility] Start: 1991 HPV TESTING HPV TESTING [facility] Start: 1991 Screening for malignant neoplasm of cervix [facility] Start: 1982 PAP TESTING PAP TESTING [facility] Start: 1982 Screening for malignant neoplasm of cervix [facility] Start: 1980 Urine microalbumin profile DTAP,TDAP,TD (1 - Tdap) [facility] Start: 1979 ANNUAL PCP TEAM CHRONIC DISEASE VISIT ANNUAL PCP TEAM CHRONIC DISEASE VISIT [facility] Start: 1979 Anxiety Screening Anxiety Screening [facility] Start: 1979 BP CONTROLLED (<130/80) BP CONTROLLED (<130/80) [facility] Start: 1979 Depression Screening Depression Screening [facility] Start: 1979 HEPATITIS C SCREENING HEPATITIS C SCREENING [facility] Start: 1979 Hepatitis C screening Hepatitis C Screening [facility] Start: 1979 HIV SCREENING HIV SCREENING [facility] Start: 1979 HIV screening HIV Screening [facility] Start: 1973 Adult depression screening assessment DEPRESSION SCREENING [facility] Start: 1962 MMR Vaccines (1 of 1 - Standard series) MMR Vaccines (1 of 1 - Standard series) [facility] Start: 1961 HIV screening HIV Screening [facility] Start: 1961 Lipid panel Lipid Panel [facility] Start: 1961 Screening for malignant neoplasm of colon [facility] Start: 1961 Thyroid stimulating hormone measurement TSH Level [facility] Start: 1961 Yearly Adult Physical Yearly Adult Physical [facility] Patient Education Aortic Valve R eplacement, Transcatheter (DC) [facility] Work Phone: Patient referral [facility] Work Phone: Ther px 1/> areas ea ch 15 min aqua ther w/xerss [employer] EXERCISE Procedures Routine Status post revision of total knee, right Ordered: 10/15/2022 [facility] Work Phone: Comment on above: Ordered: 10/15/2022 [facility] Immunizations Immunization Date Immunization Notes Care Provider Spencer bryson 03-30-2024 Influenza, injectabl e, [place]in [place] Canine Kidney, preservative free, quadrivalent Noemi Argueta INDUSTRIAL [employer]MI[employer]Y TEACHER Work Phone: [facility] 07-07-2021 Pfizer-BioNTech COVID-19 Vacc 30 MCG/0.3ML Intramuscular Suspension Oswaldo Grewal Work Phone: [facility] 10-30-2020 Moderna COVID-19 Vaccine 100 MCG/0.5ML Intramuscular Suspension Oswaldo Conroy Grewal Work Phone: [facility] 10-29-2020 Moderna SARS-CoV-2 Vaccination Guerline Lause INDUSTRIAL CHEMISTRY TEACHER Work Phone: [facility] 10-03-2020 Moderna COVID-19 Vaccine 100 MCG/0.5ML Intramuscular Suspension Oswaldo A Grewal Work Phone: [facility] 10-02-2020 Moderna SARS-CoV-2 Vaccination Guerline Lause INDUSTRIAL CHEMISTRY TEACHER Work Phone: [facility] 05-15-2014 influenza virus vaccine, split virus (incl. purified surface antigen) Guerline Lause [employer]MI[employer] TE[employer]ER Work Phone: [facility] 05-15-2014 influenza virus vaccine, unspecified formulation Lucas Levy PA-C Work Phone: [facility] 05-15-2013 seasonal influenza, intradermal, preservative free Guerline Lause INDUSTRI[employer] CHEMISTRY TEACHER Work Phone: [facility] 08-12-2010 tetanus and diphther ia toxoids, adsorbed, preservative free, for adult use (2 Lf of tetanus toxoid and 2 Lf of diphtheria toxoid) Guerline Lause INDUSTRIAL CHEMISTRY TEACHER Work Phone: [facility] Payers Date Payer Category Payer Unknown 2021 Self-pay [id number] 2021 Private Health Insurance [facility] [employer] [id number] 2021-Present NA [address] [address] [place] [address] PPO [id number] 2009 Private Health Insurance [id number]. [id number] 1961 Unknown [id number] 2.16.840.1.794090.3.579. 2.593 1961 Unknown [id number] 2.16.840.1.248688.3.579. 2.593 1961 Unknown [id number] 2.16.840.1.177869.3.579. 2.593 1961 Unknown [id number] 2.16.840.1.417555.3.579. 2.593 1961 Unknown [id number] 2.16.840.1.951219.3.579. 2.593 1961 Unknown [id number] 2.16.840.1.053797.3.579. 2.356 1961 Unknown [id number] 2.16.840.1.650367.3.579. 2.356 1961 Unknown [id number] 2.16.840.1.834062.3.579. 2.356 1961 Unknown [id number] 2.840.1.789070.3.579. 2.356 1961 Unknown [id number] 2.16.840.1.672211.3.579. 2.356 1961 Unknown [id number] 2.16.840.1.674178.3.579. 2.356 1961 Unknown [id number] 2.840.1.013493.3.579. 2.1244 1961 Unknown [id number] 2.840.1.285846.3.579. 2.718 1961 Unknown [id number] 2.16.840.1.166789.3.579. 2.1259 1961 Unknown [id number] 2.16.840.1.643705.3.579. 2.1259 1961 Unknown [id number] 2.16.840.1.611091.3.579. 2.1259 1961 Unknown [id number] 2.16.840.1.549583.3.579. 2.1259 1961 Unknown [id number] 2.16.840.1.499171.3.579. 2.1259 1961 Unknown [id number] 2.16.840.1.597060.3.579. 2.1258 1961 Unknown [id number] 2.16.840.1.913670.3.579. 2.9 1961 Unknown [id number] 2.16.840.1.470665.3.579. 2.1258 1961 Unknown [id number] 2.16.840.1.460309.3.579. 2.1258 1961 Unknown [id number] 2.16.840.1.706051.3.579. 2.1258 1961 Unknown [id number] 2.16.840.1.526683.3.579. 2.1258 1961 Unknown [id number] 2.16.840.1.908458.3.579. 2.1259 1959 Unknown [id number] 2.16.840.1.224125.19 1959 Unknown [id number] Unknown [id number] 2.16.840.1.670923.3.579. 2.531 Unknown [id number] 2.16.840.1.779127.3.579. 2.531 Social History Date Type Detail Facility Start: 06-12-2013 End: 02-07-2023 Tobacco smoking status [facility] Never smoked tobacco [facility] Start: 06-12-2013 End: 02-07-2023 Tobacco use and exposure Smokeless tobacco non-user [facility] Start: 02-05-2020 End: 12-09-2021 Alcohol intake Current non-drinker of alcohol (finding) [facility] Start: 02-05-2020 History SDOH Financial 5 [facility] Start: 02-05-2020 History SDOH Food Worry 1 [facility] Start: 02-05-2020 History SDOH Transpo rt Med 2 [facility] Start: 1960 Sex Assigned At Not on file [facility] Start: 01-28-2020 End: 03-16-2024 Exposure to SARS-CoV-2 (event) Not sure [facility] Start: 02-28-2023 End: 09-17-2024 Caffeine use Caffeine use [facility] Comment on above: 2-3 cups coffee ilsa y; Start: 02-28-2023 End: 09-17-2024 Sex Assigned At [facility] Start: 1960 Sex Assigned At Female F [facility] Tobacco smoking consumption unknown [facility] How hard is it for y ou to pay for the very basics like food, housing, medical care, and heating Not hard at all [facility] (I/We) worried corazon er (my/our) food would run out before (I/we) got money to buy more. Never true [facility] Start: 09-09-2023 End: 09-17-2024 Alcohol intake Lifetime non-drinker (finding) [facility] Work Phone: How often to you hav e a drink containing alcohol? Never [facility] Start: 11-25-2022 Alcohol Comment caffeine: 1-2 cups per day coffee, tea [facility] Medical Equipment Procedure Code Equipment Code Equipment Origin al Text Equipment Identifier Dates Omar Bn Co Hv 40g m - [id number] Start: 07-05-2013 Comment on above: Description: cobalt hv bone cement 40/20 Mxn-Cr-K-Kind Implant - [id number] Start: 07-05-2013 Comment on above: Description: oxford twin pegged femoral Fmg-Ne-Z-Kind Implant - [id number] Start: 07-05-2013 Comment on above: Description: LIZA Ferreira M SERIES Insert Triathlon 5 10mm Tibial Bearing Condylar Stabilize Sterile Knee - [id number] Start: 02-04-2020 Baseplate Triathlon Tritanium 5 Tibial Knee - [id number] Start: 02-04-2020 Component Triathlon 33mm Tritanium 9mm Patellar Metal Backed Symmetric - [id number] Start: 02-04-2020 Component Triathlon 5 Pa Femoral Cruciate Retain Bead Knee Left - [id number] Start: 02-04-2020 Cement Simplex Bone High Viscosity - [id number] Start: 08-19-2022 Imp Knee Tib Ins Tri Sz5 11mm [id number] Start: 08-19-2022 Baseplate Triathlon 5 Sheridan Cocr Tibial Total Stabilize Cemented Knee - [id number] Start: 08-19-2022 Cement Simplex Bone High Viscosity - [id number] Start: 08-19-2022 Component Triathlon 33mm X3 9mm Patellar Symmetric Knee Superior - [id number] Start: 08-19-2022 Component Triathlon 5 Femoral Cemented Posterior Stabilize Knee Right - [id number] Start: 08-19-2022 Peg Triathlon Fixation Modular Distal Femur Knee - [id number] Start: 08-19-2022 Goals Date Patient Goal Desired Activity /State Functional Status Date Assessment Result Facility 02-02-2022 Functional status Patient at Baseline [facility] Work Phone: Functional observable [facility] Mental Status Date Assessment Result Facility 03-18-2022 Cognitive functi ons [id number] [facility] 02-02-2022 Cognitive function Cognitive Sta tus Patient at Baseline [facility] Work Phone: Clinical Notes 03-18-2012 to 11-16-2024 Valentina Gregg MD - 11/16/2024 8:00 AM EDTTelephone Encounter - Jim Luna - 11/12/2024 3:37 PM EDTTelephone Encounter - Jim Luna - 11/12/2024 3:37 PM Maria Ines Argueta NP - 09/17/2024 8:00 AM EST Note Date & Type Note Facility 11-16-2024 History of Presen t illness Narrative Images from the original note were not included. CHIEF COMPLAINT REASON FOR VISIT: FOLLOW UP HPI: Virgilio Johnson is a 64 y.o. female who presents for a follow up. She is good on refills. She states she still has her days with her restless leg. She states she is doing fine on the magnesium, gabapentin, and ropinirole. She states it does help hjer go to sleep. She states she does have to take the 0.25 mg throughout the day due to the restless leg. She states on the weekends it does get more towards the evening time and has to take a little more. Denies any other concerns. CURRENT MEDICATIONS: ALLERGIES/DISCONTINUE MEDICATIONS Current Outpatient Medications Medication Instructions amLODIPine (NORVASC) 10 mg, Oral, Daily atorvastatin (LIPITOR) 10 mg, Oral, Daily brimonidine (AlphaGAN P) 0.2 % ophthalmic solution 1 drop, 2 times daily chlorthalidone (HYGROTON) 25 mg, Daily dicyclomine (BENTYL) 20 mg, Oral, 2 times daily gabapentin (NEURONTIN) 300 mg, Oral, 3 times daily latanoprost (Xalatan) 0.005 % ophthalmic solution 1 drop, Nightly magnesium oxide (MAG-OX) 400 mg, Oral, 2 times daily meloxicam (MOBIC) 7.5 mg, Oral, Daily oxyCODONE (Roxicodone) 5 MG immediate release tablet 1-2 tablet as needed Orally every 4-6 hrs prednisoLONE acetate (Pred-Forte) 1 % ophthalmic suspension predniSONE (Deltasone) 20 MG tablet Take two tablets (40 mg) daily for five days, then take one tablet (20 mg) daily for five days. Take with food. rOPINIRole (REQUIP) 1 mg, Oral, Nightly rOPINIRole (REQUIP) 0.25 mg, Oral, 6 times daily, Patient states she takes it 1 in the morning, 1 at lunch, 2 in the evening and 2 at bed tiZANidine (ZANAFLEX) 4 mg, Oral, Every 8 hours PRN valACYclovir (VALTREX) 1,000 mg, Daily valsartan (DIOVAN) 320 mg, Oral, Daily Allergies Allergen Reactions Brimonidine Unknown Dorzolamide Unknown Dorzolamide Hcl-Timolol Mal Other Reaction(s): Unknown Latex Other Reaction(s): Intolerance States she cannot have anything with elastic or latex, She gets a severe rash and areas of breakdown and pus. Levalbuterol Unknown Other Other Reaction(s): Rash Timolol Unknown Penicillins Rash Had rash once years ago and does not remember if she has had PCN since then. There are no discontinued medications. PAST MEDICAL HISTORY: SURGICAL/SOCIAL/FAMILY HISTORY DEPRESSION SCREEN: Past Medical History: Diagnosis Date Arthritis Contact dermatitis bilateral eyelids-sinusitis Folliculitis RIGHT KNEE Glaucoma (CMS/HCC) 2007 History of transcatheter aortic valve replacement (TAVR) 03/20/2022 Hypertension (CMS/HCC) Irritable bowel disease Irritable bowel syndrome 2006 Osteoarthritis 2012 RLS (restless legs syndrome) Past Surgical History: Procedure Laterality Date COLONOSCOPY 2004 COLONOSCOPY 01/16/2018 Normal EYE SURGERY 10/16/2017 pressure removal EYE SURGERY 10/2018 KNEE ARTHROPLASTY KNEE SURGERY 2012 Arthroscopy OTHER SURGICAL HISTORY laser treatment TAVR 03/20/2022 Dr. Nolasco THYROID SURGERY Left 05/2022 L thyroid gland removed Social History Tobacco Use Smoking status: Never Smokeless tobacco: Never Vaping Use Vaping status: Never Used Substance Use Topics Alcohol use: Never Comment: caffeine: 1-2 cups per day coffee, tea Drug use: Never Family History Problem Relation Name Age of Onset Heart failure Mother Yazmin at 75 y/o Diabetes Mother Yazmin Kidney disease Mother Yazmin Diabetes Father Art at 80 y/o Heart failure Father Art Thyroid disease Sister Mely 1958 Other (back disability) Sister Mely No Known Problems Brother Wu 1964 No Known Problems Daughter Eugenie 20 y/o No Known Problems Son Artis 34 y/o Depression: Not at risk (09/17/2024) PHQ-2 PHQ-2 Score: 0 REVIEW OF SYMPTOMS: Review of Systems Constitutional: Negative for chills, diaphoresis, fatigue and fever. HENT: Negative for ear pain, tinnitus and trouble swallowing. Eyes: Negative for photophobia and visual disturbance. Respiratory: Negative for cough and shortness of breath. Cardiovascular: Negative for palpitations and leg swelling. Gastrointestinal: Negative for abdominal pain and nausea. Genitourinary: Negative for difficulty urinating and urgency. Musculoskeletal: Negative for arthralgias, back pain, myalgias, neck pain and neck stiffness. Neurological: Negative for tremors, weakness, light-headedness and numbness. Psychiatric/Behavioral: Negative for agitation, confusion and suicidal ideas. OBJECTIVE: 09/17/2024 8:03 AM 08/03/2024 8:55 AM 07/07/2024 8:57 AM Vitals BMI 34.52 kg/m2 34.82 kg/m2 34.06 kg/m2 BSA (m2) 2.22 m2 2.23 m2 2.21 m2 Systolic 126 122 160 Diastolic 60 70 80 Heart Rate 76 65 SpO2 97 % 97 % Temp 97.1 F Resp 20 16 Height (in) 5' 8 5' 8 5' 8 Weight (lb) 227 229 224 Visit Report Report Report EXAM: Neurological Exam Mental Status Awake, alert and oriented to person, place and time. Oriented to person, place and time. Recent and remote memory are intact. Speech is normal. Language is fluent with no aphasia. Attention and concentration are normal. Cranial Nerves CN II: Visual acuity is normal. Visual peterson full to confrontation. CN III, IV, : Extraocular movements intact bilaterally. Normal lids and orbits bilaterally. Pupils equal round and reactive to light bilaterally. CN V: Facial sensation is normal. CN VII: Full and symmetric facial movement. CN VIII: Hearing is normal. CN XII: Tongue midline without atrophy or fasciculations. Motor Normal muscle bulk throughout. Normal muscle tone. Right Left Wrist flexion 5 5 Wrist extension 5 5 Right Left Deltoid 5 5 Biceps 5 5 Triceps 5 5 Wrist flexor 5 5 Wrist extensor 5 5 Glutei 5 5 Iliopsoas 5 5 Quadriceps 5 5 Gastrocnemius 5 5 Anterior tibialis 5 5 Posterior tibialis 5 5 Sensory Light touch is normal in upper and lower extremities. Pinprick is normal in upper and lower extremities. Vibration is normal in upper and lower extremities. Reflexes Right Left Brachioradialis 2+ 2+ Biceps 2+ 2+ Patellar 2+ 2+ Achilles 2+ 2+ Right Plantar: downgoing Left Plantar: downgoing Right pathological reflexes: Carrol's absent. Ankle clonus absent. Left pathological reflexes: Carrol's absent. Ankle clonus absent. Coordination Yypyba-[id number], rapid alternating movements and eevc-[id number] normal bilaterally without dysmetria. Gait Normal casual, toe, heel and tandem gait. Romberg is absent. PROCEDURE: NONE ASSESSMENT AND PLAN: Virgilio Johnson is a 64 year old female with sensory disturbance in the distal lower extremities manifested predominantly as numbness and paresthesia in his bilateral feet which have been progressive over the past 8 months, Possible etiologies would include a generalized process affecting large fibers such as peripheral neuropathy, lumbar radiculopathy, or lumbosacral plexopathy. I cannot exclude a small fiber neuropathy contributing to predominantly sensory symptoms in the lower extremities, I cannot exclude it medical condition or metabolic process contributing to peripheral nerve dysfunction including polyneuropathy. Diagnoses and all orders for this visit: Acute left-sided low back pain with left-sided sciatica Start tizanidine (Zanaflex) 4 MG tablet; Take 1 tablet (4 mg) by mouth at bedtime to help with muscle cramps/spasms. Carpal tunnel syndrome, bilateral Continue meloxicam (Mobic) 7.5 MG tablet; Take 1 tablet (7.5 mg) by mouth Daily left cock-up wrist splint RLS (restless legs syndrome) Continue with Gabapentin 300 mg TID Continue magnesium 400 mg BID, Continue ropinirole 1 mg at bedtime in addtion to the 0.25 mg 6 times daily. I counseled the patient on the possible side effects and interactions of medications. Follow up 3 months. This note was scribed by RENETTA Kumar acting under the direction of Valentina Gregg MD. The content has been reviewed and confirmed for accuracy by Valentina Gregg MD documented in this encounter [facility] 11-12-2024 Telephone encounter Note 11/12/24 pt requesting med refill be sent to [facility] 11-12-2024 Miscellaneous Notes 11/12/24 pt requesting med refill be sent to [facility] documented in this encounter [facility] 10-15-2024 Telephone encounter Note Patient states that she seen Noemi in September and she increased her Gabapentin to 600mg 3 times a day for a month and that she should call for refill after a month and go back to her Gabapentin 300mg 3 times a day. [facility] 10-15-2024 Miscellaneous Notes Patient states that she seen Noemi in September and she increased her Gabapentin to 600mg 3 times a day for a month and that she should call for refill after a month and go back to her Gabapentin 300mg 3 times a day. [facility] documented in this encounter [facility] 10-10-2024 Telephone encounter Note Patient left message requesting refill of Ropinirole 0.25mg to be sent to [facility]. [facility] 10-10-2024 Miscellaneous Notes Patient left message requesting refill of Ropinirole 0.25mg to be sent to [facility]. documented in this encounter [facility] 09-17-2024 History of Presen t illness Narrative SUBJECTIVE Virgilio Johnson is a 64 y.o. female who presents with complaints of low back pain which radiates to the left hip and down the left lateral leg to the knee for 1.5 weeks. Patient does not recall any injury or fall, but does state she went to the chiropractor a week prior to the start of her symptoms. Denying numbness or tingling. CURRENT MEDICATIONS Current Outpatient Medications: amLODIPine (Norvasc) 10 MG tablet, Take 1 tablet (10 mg) by mouth Daily, Disp: , Rfl: atorvastatin (Lipitor) 10 MG tablet, Take 1 tablet (10 mg) by mouth Daily, Disp: , Rfl: brimonidine (AlphaGAN P) 0.2 % ophthalmic solution, Administer 1 drop into both eyes in the morning and 1 drop before bedtime., Disp: , Rfl: chlorthalidone (Hygroton) 25 MG tablet, Take 25 mg by mouth in the morning., Disp: , Rfl: dicyclomine (Bentyl) 20 MG tablet, Take 1 tablet (20 mg) by mouth in the morning and 1 tablet (20 mg) before bedtime., Disp: , Rfl: latanoprost (Xalatan) 0.005 % ophthalmic solution, Administer 1 drop into both eyes at bedtime., Disp: , Rfl: magnesium oxide (Mag-Ox) 400 mg tablet, Take 1 tablet (400 mg) by mouth in the morning and 1 tablet (400 mg) before bedtime., Disp: 180 tablet, Rfl: 3 meloxicam (Mobic) 7.5 MG tablet, Take 1 tablet (7.5 mg) by mouth Daily, Disp: , Rfl: oxyCODONE (Roxicodone) 5 MG immediate release tablet, 1-2 tablet as needed Orally every 4-6 hrs, Disp: , Rfl: prednisoLONE acetate (Pred-Forte) 1 % ophthalmic suspension, , Disp: , Rfl: rOPINIRole (Requip) 0.25 MG tablet, Take 1 tablet (0.25 mg) by mouth 6 (six) times a day Patient states she takes it 1 in the morning, 1 at lunch, 2 in the evening and 2 at bed, Disp: , Rfl: rOPINIRole (Requip) 1 MG tablet, Take 1 tablet (1 mg) by mouth at bedtime, Disp: 90 tablet, Rfl: 3 valACYclovir (Valtrex) 1 g tablet, Take 1,000 mg by mouth in the morning. as directed., Disp: , Rfl: valsartan (Diovan) 320 MG tablet, Take 1 tablet (320 mg) by mouth Daily, Disp: , Rfl: gabapentin (Neurontin) 600 MG tablet, Take 1 tablet (600 mg) by mouth in the morning and 1 tablet (600 mg) in the evening and 1 tablet (600 mg) before bedtime., Disp: 90 tablet, Rfl: 0 predniSONE (Deltasone) 20 MG tablet, Take two tablets (40 mg) daily for five days, then take one tablet (20 mg) daily for five days. Take with food., Disp: 15 tablet, Rfl: 0 tiZANidine (Zanaflex) 4 MG tablet, Take 1 tablet (4 mg) by mouth every 8 (eight) hours if needed for muscle spasms for up to 10 days, Disp: 30 tablet, Rfl: 0 RECENT VITAL SIGNS 05/22/2024 11:33 AM 05/29/2024 9:01 AM 06/06/2024 8:31 AM 06/20/2024 8:26 AM 07/07/2024 8:57 AM 08/03/2024 8:55 AM 09/17/2024 8:03 AM Vitals BMI 34.21 kg/m2 34.21 kg/m2 34.21 kg/m2 34.21 kg/m2 34.06 kg/m2 34.82 kg/m2 34.52 kg/m2 BSA (m2) 2.21 m2 2.21 m2 2.21 m2 2.21 m2 2.21 m2 2.23 m2 2.22 m2 Systolic 132 130 132 128 160 122 126 Diastolic 67 68 67 71 80 70 60 Heart Rate 68 70 70 68 65 76 SpO2 97 % 97 % Temp 97.1 F Resp 16 20 Height (in) 5' 8 5' 8 5' 8 5' 8 5' 8 5' 8 5' 8 Weight (lb) 225 225 225 225 224 229 227 Visit Report Report Report Report Report Report Report OBJECTIVE Physical Exam Vitals and nursing note reviewed. Constitutional: Appearance: Normal appearance. She is normal weight. HENT: Head: Normocephalic and atraumatic. Right Ear: Tympanic membrane, ear canal and external ear normal. Left Ear: Tympanic membrane, ear canal and external ear normal. Nose: Nose normal. Mouth/Throat: Mouth: Mucous membranes are moist. Eyes: Pupils: Pupils are equal, round, and reactive to light. Cardiovascular: Rate and Rhythm: Normal rate and regular rhythm. Pulses: Normal pulses. Heart sounds: Murmur heard. Pulmonary: Effort: Pulmonary effort is normal. Breath sounds: Normal breath sounds. Abdominal: General: Bowel sounds are normal. Palpations: Abdomen is soft. Musculoskeletal: General: Normal range of motion. Cervical back: Normal range of motion. Comments: Ataxic gait observed favoring the right side. Left leg strength 4/5. Skin: General: Skin is warm and dry. Capillary Refill: Capillary refill takes less than 2 seconds. Neurological: General: No focal deficit present. Mental Status: She is alert and oriented to person, place, and time. Psychiatric: Mood and Affect: Mood normal. ASSESSMENT/PLAN Diagnoses and all orders for this visit: Acute left-sided low back pain with left-sided sciatica - predniSONE (Deltasone) 20 MG tablet; Take two tablets (40 mg) daily for five days, then take one tablet (20 mg) daily for five days. Take with food. - gabapentin (Neurontin) 600 MG tablet; Take 1 tablet (600 mg) by mouth in the morning and 1 tablet (600 mg) in the evening and 1 tablet (600 mg) before bedtime. - tiZANidine (Zanaflex) 4 MG tablet; Take 1 tablet (4 mg) by mouth every 8 (eight) hours if needed for muscle spasms for up to 10 days FOLLOW-UP Follow up in about 4 months (around 01/17/2025) for Next scheduled follow-up: CIM. documented in this encounter [facility] 09-17-2024 Instructions Noemi Argueta NP - 09/17/2024 8:00 AM EST PATIENT EDUCATION: Low back pain Encouraged to follow up with meds, heat/ice, and exercises as provided. Encouraged to avoid strenuous activities that may worsen symptoms but continue with being physically active. Avoid laying/sitting for long periods of time as this will worsen muscle aches/spasms and back pain. Encouraged to use stretching. Core strengthening and proper lifting mechanics ar important. Complete imaging if ordered. Notify office or go to ER if saddle paresthesia presents or if patient develop difficulties voiding, passing stool, or new onset incontinence. [place] reviewed as necessary for use of controlled substances. Steroids Take medications as prescribed. Please take steroids with food. Potential common side effects include increased appetite, mood swings, and GI upset. Do not to take any other anti-inflammatories while on steroid. documented in this encounter [facility] 08-03-2024 History of Presen t illness Narrative SUBJECTIVE Virgilio Johnson is a 64 y.o. female who presents for a chronic illness management visit. CURRENT MEDICATIONS Current Outpatient Medications: aspirin 81 MG EC tablet, 1 (one) time each day at the same time., Disp: , Rfl: brimonidine (AlphaGAN P) 0.2 % ophthalmic solution, Administer 1 drop into both eyes in the morning and 1 drop before bedtime., Disp: , Rfl: chlorthalidone (Hygroton) 25 MG tablet, Take 25 mg by mouth in the morning., Disp: , Rfl: diclofenac (Voltaren) 50 MG EC tablet, , Disp: , Rfl: latanoprost (Xalatan) 0.005 % ophthalmic solution, Administer 1 drop into both eyes at bedtime., Disp: , Rfl: magnesium oxide (Mag-Ox) 400 (240 Mg) MG tablet, TAKE 1 TABLET BY MOUTH IN THE MORNING AND TAKE 1 TABLET BY MOUTH BEFORE BEDTIME, Disp: , Rfl: magnesium oxide (Mag-Ox) 400 mg tablet, Take 1 tablet (400 mg) by mouth in the morning and 1 tablet (400 mg) before bedtime., Disp: 180 tablet, Rfl: 3 [id number] e (Polydex) 3.5-70691-0.1 ointment ophthalmic ointment, APPLY 1/2 INCH INTO BOTH EYES TWICE A DAY, Disp: , Rfl: oxyCODONE (Roxicodone) 5 MG immediate release tablet, 1-2 tablet as needed Orally every 4-6 hrs, Disp: , Rfl: prednisoLONE acetate (Pred-Forte) 1 % ophthalmic suspension, , Disp: , Rfl: terbinafine (LamISIL) 250 MG tablet, 1 (one) time each day at the same time., Disp: , Rfl: valACYclovir (Valtrex) 1 g tablet, Take 1,000 mg by mouth in the morning. as directed., Disp: , Rfl: amLODIPine (Norvasc) 10 MG tablet, Take 1 tablet (10 mg) by mouth Daily, Disp: , Rfl: atorvastatin (Lipitor) 10 MG tablet, Take 1 tablet (10 mg) by mouth Daily, Disp: , Rfl: dicyclomine (Bentyl) 20 MG tablet, Take 1 tablet (20 mg) by mouth in the morning and 1 tablet (20 mg) before bedtime., Disp: , Rfl: gabapentin (Neurontin) 300 MG capsule, Take 1 capsule (300 mg) by mouth in the morning and 1 capsule (300 mg) in the evening and 1 capsule (300 mg) before bedtime., Disp: , Rfl: levothyroxine (Synthroid) 100 MCG tablet, Take 1 tablet (100 mcg) by mouth in the morning. Take before meals., Disp: , Rfl: meloxicam (Mobic) 7.5 MG tablet, Take 1 tablet (7.5 mg) by mouth Daily, Disp: , Rfl: rOPINIRole (Requip) 0.25 MG tablet, Take 1 tablet (0.25 mg) by mouth 6 (six) times a day Patient states she takes it 1 in the morning, 1 at lunch, 2 in the evening and 2 at bed, Disp: , Rfl: rOPINIRole (Requip) 1 MG tablet, Take 1 tablet (1 mg) by mouth at bedtime, Disp: 90 tablet, Rfl: 3 valsartan (Diovan) 320 MG tablet, Take 1 tablet (320 mg) by mouth Daily, Disp: , Rfl: RECENT VITAL SIGNS 05/15/2024 9:38 AM 05/22/2024 11:33 AM 05/29/2024 9:01 AM 06/06/2024 8:31 AM 06/20/2024 8:26 AM 07/07/2024 8:57 AM 08/03/2024 8:55 AM Vitals BMI 34.21 kg/m2 34.21 kg/m2 34.21 kg/m2 34.21 kg/m2 34.21 kg/m2 34.06 kg/m2 34.82 kg/m2 BSA (m2) 2.21 m2 2.21 m2 2.21 m2 2.21 m2 2.21 m2 2.21 m2 2.23 m2 Systolic 131 132 130 132 128 160 122 Diastolic 64 67 68 67 71 80 70 Heart Rate 69 68 70 70 68 65 SpO2 97 % Resp 16 Height (in) 5' 8 5' 8 5' 8 5' 8 5' 8 5' 8 5' 8 Weight (lb) 225 225 225 225 225 224 229 Visit Report Report Report Report Report Report Report Report OBJECTIVE Physical Exam Vitals and nursing note reviewed. Constitutional: Appearance: Normal appearance. She is normal weight. HENT: Head: Normocephalic and atraumatic. Right Ear: Tympanic membrane, ear canal and external ear normal. Left Ear: Tympanic membrane, ear canal and external ear normal. Nose: Nose normal. Mouth/Throat: Mouth: Mucous membranes are moist. Eyes: Pupils: Pupils are equal, round, and reactive to light. Cardiovascular: Rate and Rhythm: Normal rate and regular rhythm. Pulses: Normal pulses. Heart sounds: Murmur heard. Pulmonary: Effort: Pulmonary effort is normal. Breath sounds: Normal breath sounds. Abdominal: General: Bowel sounds are normal. Palpations: Abdomen is soft. Musculoskeletal: General: Normal range of motion. Cervical back: Normal range of motion. Skin: General: Skin is warm and dry. Capillary Refill: Capillary refill takes less than 2 seconds. Neurological: General: No focal deficit present. Mental Status: She is alert and oriented to person, place, and time. Psychiatric: Mood and Affect: Mood normal. ASSESSMENT/PLAN Diagnoses and all orders for this visit: Type 2 diabetes mellitus with foot ulcer (CODE) ([facility]) - POCT glycosylated hemoglobin (Hb A1C) docked device Non-pressure chronic ulcer of other part of right foot with fat layer exposed ([facility]) Type 2 diabetes mellitus with diabetic chronic kidney disease ([facility]) Chronic kidney disease, stage 3a (HCC) [place] Type 2 diabetes mellitus with diabetic cataract ([facility]) Carpal tunnel syndrome, bilateral - meloxicam (Mobic) 7.5 MG tablet; Take 1 tablet (7.5 mg) by mouth Daily Irritable bowel syndrome, unspecified type - valsartan (Diovan) 320 MG tablet; Take 1 tablet (320 mg) by mouth Daily - dicyclomine (Bentyl) 20 MG tablet; Take 1 tablet (20 mg) by mouth in the morning and 1 tablet (20 mg) before bedtime. Restless legs syndrome - gabapentin (Neurontin) 300 MG capsule; Take 1 capsule (300 mg) by mouth in the morning and 1 capsule (300 mg) in the evening and 1 capsule (300 mg) before bedtime. - rOPINIRole (Requip) 1 MG tablet; Take 1 tablet (1 mg) by mouth at bedtime - rOPINIRole (Requip) 0.25 MG tablet; Take 1 tablet (0.25 mg) by mouth 6 (six) times a day Patient states she takes it 1 in the morning, 1 at lunch, 2 in the evening and 2 at bed Hypothyroidism (acquired) ([facility]) - levothyroxine (Synthroid) 100 MCG tablet; Take 1 tablet (100 mcg) by mouth in the morning. Take before meals. Primary hypertension (CMS/HCC) - amLODIPine (Norvasc) 10 MG tablet; Take 1 tablet (10 mg) by mouth Daily Hypertriglyceridemia (CMS/HCC) - atorvastatin (Lipitor) 10 MG tablet; Take 1 tablet (10 mg) by mouth Daily FOLLOW-UP Follow up in about 6 months (around 01/31/2025) for Next scheduled follow-up: CIM. documented in this encounter [facility] 08-03-2024 Instructions Noemi Argueta NP - 08/03/2024 9:00 AM EST PATIENT EDUCATION: DM Prior to your visit today, our team reviewed your chart and outlined testing and treatment needed for your care. Possible complications of diabetes include possible loss of vision, increased risks of heart attack and stroke, and kidney failure. Your goals for your diabetic management are to keep your HgbA1c less than 7.0, your BP less than 130/80, and to maintain a healthy weight with a BMI of less than 26. We are working together to achieve these goals with the following plan of healthier diet, increased physical activity level, and medication understanding and compliance. Barriers to these goals have been discussed. Hypothyroidism The symptoms of hypothyroidism include fatigue, weakness, weight gain, muscle aches, constipation, depressed mood, dry skin, intolerance of cold temperatures, and heavy menstrual periods. Since absorption of this medication is increased on an empty stomach, take your thyroid medicine on an empty stomach 60 minutes before breakfast. Do not stop taking the medication even if you feel better. Do not take your thyroid medication at the same time as fiber supplements, calcium, iron, multivitamins, or aluminum hydroxide antacids or any medications that bind bile acids. Take your thyroid medication and these medications at least 4 hours apart. Continue with diet and exercise. Repeat labs in specified time frame as discussed during your appointment. Patient understands treatment plan. HTN Possible complications of uncontrolled hypertension include stroke, congestive heart failure, heart attack, loss of vision, and kidney failure. Please complete labs as directed and call our office in one week if you have not received your lab results. Patient is encouraged to reduce salt in diet and to exercise at least 150 minutes per week. Avoid tobacco use and alcohol consumption. Please take all medications as prescribed. HLD Reviewed most recent lipid panel or ordered new labs if needed. It is important to maintain LDL at specified goal. The risks associated with hyperlipidemia including stroke and heart attack. Take medications as directed. Dietary modifications include decreasing red meat consumption, decreasing alcohol consumption, avoiding fried fatty foods and cakes, cookies, and sweets. You are encouraged to increase fiber in your diet and eat a diet rich in omega-3. You are encouraged to exercise at least 150 minutes weekly. Barriers to the plan of care have been addressed. Obtain labs as directed and call our office if you have not received the lab results within one week. Follow up as directed. Patient has been given a copy of the plan of care. documented in this encounter [facility] 07-07-2024 History of Presen t illness Narrative Images from the original note were not included. CHIEF COMPLAINT REASON FOR VISIT : RLS, Left wrist HPI: Virgilio Johnson is a 64 y.o. female who presents for a follow up. She Is wondering if her gabapentin can be changed to a 90 day supply next time. She states regarding her left wrist, she is wearing a wrist strap that she is wearing to help support the wrist. 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 She states she is not having any problems with it now. She states she does get restless leg here and there. She states during the week it is not bad. But she states it gets worse on the weekend when her legs are settling down and relaxing. She states she takes about 6 a day of the quarter ones. The 1 mg she will take that after work before bed. Denies any other concerns. CURRENT MEDICATIONS: ALLERGIES/DISCONTINUE MEDICATIONS Current Outpatient Medications Medication Instructions acetaZOLAMIDE (Diamox) 500 MG 12 hr capsule TAKE 1 CAPSULE BY MOUTH TWICE DAILY DIRECTED amLODIPine (NORVASC) 10 mg, Oral, Daily aspirin 81 MG EC tablet Every 24 hours atorvastatin (LIPITOR) 10 mg, Oral, Daily brimonidine (AlphaGAN P) 0.2 % ophthalmic solution 1 drop, Both Eyes, 2 times daily chlorthalidone (HYGROTON) 25 mg, Oral, Daily diclofenac (Voltaren) 50 MG EC tablet dicyclomine (BENTYL) 20 mg, Oral, 2 times daily gabapentin (NEURONTIN) 300 mg, Oral, 3 times daily latanoprost (Xalatan) 0.005 % ophthalmic solution 1 drop, Both Eyes, Nightly levothyroxine (SYNTHROID) 100 mcg, Oral, Daily before breakfast magnesium oxide (Mag-Ox) 400 (240 Mg) MG tablet TAKE 1 TABLET BY MOUTH IN THE MORNING AND TAKE 1 TABLET BY MOUTH BEFORE BEDTIME magnesium oxide (MAG-OX) 400 mg, Oral, 2 times daily meloxicam (MOBIC) 7.5 mg, Oral, Daily yrqklhrg-lsegmdlwr-eijKQPMAxmix e (Polydex) 3.5-98118-2.1 ointment ophthalmic ointment APPLY 1/2 INCH INTO BOTH EYES TWICE A DAY oxyCODONE (Roxicodone) 5 MG immediate release tablet 1-2 tablet as needed Orally every 4-6 hrs prednisoLONE acetate (Pred-Forte) 1 % ophthalmic suspension rOPINIRole (REQUIP) 0.25 mg, Oral, 6 times daily, Patient states she takes it 1 in the morning, 1 at lunch, 2 in the evening and 2 at bed rOPINIRole (REQUIP) 1 mg, Oral, Nightly SITagliptin (JANUVIA) 25 mg, Oral, Daily terbinafine (LamISIL) 250 MG tablet Every 24 hours valACYclovir (VALTREX) 1,000 mg, Oral, Daily, as directed valsartan (DIOVAN) 320 mg, Oral, Daily Allergies Allergen Reactions Brimonidine Unknown Dorzolamide Unknown Dorzolamide Hcl-Timolol Mal Other Reaction(s): Unknown Latex Other Reaction(s): Intolerance States she cannot have anything with elastic or latex, She gets a severe rash and areas of breakdown and pus. Levalbuterol Unknown Other Other Reaction(s): Rash Timolol Unknown Penicillins Rash Had rash once years ago and does not remember if she has had PCN since then. There are no discontinued medications. PAST MEDICAL HISTORY: SURGICAL/SOCIAL/FAMILY HISTORY DEPRESSION SCREEN: Past Medical History: Diagnosis Date Arthritis Contact dermatitis bilateral eyelids-sinusitis Folliculitis RIGHT KNEE Glaucoma ([facility]) 2007 History of transcatheter aortic valve replacement (TAVR) 03/20/2022 [facility] Hypertension (CMS/HCC) Irritable bowel disease Irritable bowel syndrome 2006 Osteoarthritis 2012 RLS (restless legs syndrome) Past Surgical History: Procedure Laterality Date COLONOSCOPY 2004 COLONOSCOPY 01/16/2018 Normal EYE SURGERY 10/16/2017 pressure removal EYE SURGERY 10/2018 KNEE ARTHROPLASTY KNEE SURGERY 2012 Arthroscopy OTHER SURGICAL HISTORY laser treatment TAVR 03/20/2022 Dr. Nolasco THYROID SURGERY Left 05/2022 L thyroid gland removed Social History Tobacco Use Smoking status: Never Smokeless tobacco: Never Vaping Use Vaping status: Never Used Substance Use Topics Alcohol use: Never Comment: caffeine: 1-2 cups per day coffee, tea Drug use: Never Family History Problem Relation Name Age of Onset Heart failure Mother Yazmin at 75 y/o Diabetes Mother Yazmin Kidney disease Mother Yazmin Diabetes Father Art at 80 y/o Heart failure Father Art Thyroid disease Sister Mely 195 Other (back disability) Sister Mely No Known Problems Brother Wu 1964 No Known Problems Daughter Eugenie 20 y/o No Known Problems Son Artis 34 y/o Depression: Not at risk (03/30/2024) PHQ-2 PHQ-2 Score: 0 REVIEW OF SYMPTOMS: Review of Systems Constitutional: Negative for chills, diaphoresis, fatigue and fever. HENT: Negative for ear pain, tinnitus and trouble swallowing. Eyes: Negative for photophobia and visual disturbance. Respiratory: Negative for cough and shortness of breath. Cardiovascular: Negative for palpitations and leg swelling. Gastrointestinal: Negative for abdominal pain and nausea. Genitourinary: Negative for difficulty urinating and urgency. Musculoskeletal: Negative for arthralgias, back pain, myalgias, neck pain and neck stiffness. Neurological: Negative for tremors, weakness, light-headedness and numbness. Psychiatric/Behavioral: Negative for agitation, confusion and suicidal ideas. OBJECTIVE: 07/07/2024 8:57 AM 06/20/2024 8:26 AM 06/06/2024 8:31 AM Vitals BMI 34.06 kg/m2 34.21 kg/m2 34.21 kg/m2 BSA (m2) 2.21 m2 2.21 m2 2.21 m2 Systolic 160 128 132 Diastolic 80 71 67 Heart Rate 68 70 Height (in) 5' 8 5' 8 5' 8 Weight (lb) 224 225 225 Visit Report Report Report Report EXAM: Neurological Exam Mental Status Awake, alert and oriented to person, place and time. Oriented to person, place and time. Recent and remote memory are intact. Speech is normal. Language is fluent with no aphasia. Attention and concentration are normal. Cranial Nerves CN II: Visual acuity is normal. Visual peterson full to confrontation. CN III, IV, : Extraocular movements intact bilaterally. Normal lids and orbits bilaterally. Pupils equal round and reactive to light bilaterally. CN V: Facial sensation is normal. CN VII: Full and symmetric facial movement. CN VIII: Hearing is normal. CN XII: Tongue midline without atrophy or fasciculations. Motor Normal muscle bulk throughout. Normal muscle tone. Right Left Wrist flexion 5 5 Wrist extension 5 5 Right Left Deltoid 5 5 Biceps 5 5 Triceps 5 5 Wrist flexor 5 5 Wrist extensor 5 5 Glutei 5 5 Iliopsoas 5 5 Quadriceps 5 5 Gastrocnemius 5 5 Anterior tibialis 5 5 Posterior tibialis 5 5 Sensory Light touch is normal in upper and lower extremities. Pinprick is normal in upper and lower extremities. Vibration is normal in upper and lower extremities. Reflexes Right Left Brachioradialis 2+ 2+ Biceps 2+ 2+ Patellar 2+ 2+ Achilles 2+ 2+ Right Plantar: downgoing Left Plantar: downgoing Right pathological reflexes: Carrol's absent. Ankle clonus absent. Left pathological reflexes: Carrol's absent. Ankle clonus absent. Coordination Dfycbq-cw-avik, rapid alternating movements and [id number]-kk-axxc normal bilaterally without dysmetria. Gait Normal casual, toe, heel and tandem gait. Romberg is absent. PROCEDURE: NONE ASSESSMENT AND PLAN: Diagnoses and all orders for this visit: Carpal tunnel syndrome, bilateral Continue meloxicam (Mobic) 7.5 MG tablet; Take 1 tablet (7.5 mg) by mouth Daily left cock-up wrist splint RLS (restless legs syndrome) Continue with Gabapentin 300 mg TID Continue magnesium 400 mg BID, Continue ropinirole 1 mg at bedtime in addtion to the 0.25 mg 6 times daily. I counseled the patient on the possible side effects and interactions of medications. Follow up 3 months. documented in this encounter [facility] 06-26-2024 Telephone encounter Note Voicemail Received: I come in and see Dr Gregg on Tuesday, but I ran out of my DEBI [place] there. The milligrams are 300 mg and I take them 3 times a day. I need that called in to [facility]. I am going to run out before I come and see him on Tuesday. So I Wondered if you could call it into [employer] [facility] 06-26-2024 Miscellaneous Notes Voicemail Received: I come in and see Dr Gregg on Tuesday, but I ran out of my DEBI [place] there. The milligrams are 300 mg and I take them 3 times a day. I need that called in to [facility]. I am going to run out before I come and see him on Tuesday. So I Wondered if you could call it into [facility] documented in this encounter [facility] 06-20-2024 History of Presen t illness Narrative Images from the original note were not included. Patient: Virgilio Johnson : 1960 PCP: Oswaldo Grewal MD SUBJECTIVE This is a 64 y.o. female that presents today for a follow up she is doing very well no complaints Allergies: Allergies Allergen Reactions Brimonidine Unknown Dorzolamide Unknown Dorzolamide Hcl-Timolol Mal Other Reaction(s): Unknown Latex Other Reaction(s): Intolerance States she cannot have anything with elastic or latex, She gets a severe rash and areas of breakdown and pus. Levalbuterol Unknown Other Other Reaction(s): Rash Timolol Unknown Penicillins Rash Had rash once years ago and does not remember if she has had PCN since then. Past Medical History: Past Medical History: Diagnosis Date Arthritis Contact dermatitis bilateral eyelids-sinusitis Folliculitis RIGHT KNEE Glaucoma ([facility]) 2008 History of transcatheter aortic valve replacement (TAVR) 03/20/2022 [facility] Hypertension ([facility]) Irritable bowel disease Irritable bowel syndrome 2006 Osteoarthritis 2013 RLS (restless legs syndrome) Medications: Current Outpatient Medications: acetaZOLAMIDE (Diamox) 500 MG 12 hr capsule, TAKE 1 CAPSULE BY MOUTH TWICE DAILY DIRECTED, Disp: , Rfl: amLODIPine (Norvasc) 10 MG tablet, Take 1 tablet (10 mg) by mouth Daily, Disp: 90 tablet, Rfl: 1 aspirin 81 MG EC tablet, 1 (one) time each day at the same time., Disp: , Rfl: atorvastatin (Lipitor) 10 MG tablet, Take 1 tablet (10 mg) by mouth Daily, Disp: 90 tablet, Rfl: 1 brimonidine (AlphaGAN P) 0.2 % ophthalmic solution, Administer 1 drop into both eyes in the morning and 1 drop before bedtime., Disp: , Rfl: chlorthalidone (Hygroton) 25 MG tablet, Take 25 mg by mouth in the morning., Disp: , Rfl: diclofenac (Voltaren) 50 MG EC tablet, , Disp: , Rfl: dicyclomine (Bentyl) 20 MG tablet, Take 1 tablet (20 mg) by mouth in the morning and 1 tablet (20 mg) before bedtime., Disp: 180 tablet, Rfl: 1 gabapentin (Neurontin) 300 MG capsule, Take 1 capsule (300 mg) by mouth in the morning and 1 capsule (300 mg) in the evening and 1 capsule (300 mg) before bedtime., Disp: 90 capsule, Rfl: 2 latanoprost (Xalatan) 0.005 % ophthalmic solution, Administer 1 drop into both eyes at bedtime., Disp: , Rfl: levothyroxine (Synthroid) 100 MCG tablet, Take 1 tablet (100 mcg) by mouth in the morning. Take before meals., Disp: 90 tablet, Rfl: 1 magnesium oxide (Mag-Ox) 400 mg tablet, Take 1 tablet (400 mg) by mouth in the morning and 1 tablet (400 mg) before bedtime., Disp: 180 tablet, Rfl: 3 meloxicam (Mobic) 7.5 MG tablet, Take 1 tablet (7.5 mg) by mouth Daily, Disp: 30 tablet, Rfl: 11 jpgcrhtv-bgankejsv-bwjJTQKTukho e (Polydex) 3.5-93822-0.1 ointment ophthalmic ointment, APPLY 1/2 INCH INTO BOTH EYES TWICE A DAY, Disp: , Rfl: oxyCODONE (Roxicodone) 5 MG immediate release tablet, 1-2 tablet as needed Orally every 4-6 hrs, Disp: , Rfl: prednisoLONE acetate (Pred-Forte) 1 % ophthalmic suspension, , Disp: , Rfl: rOPINIRole (Requip) 0.25 MG tablet, Take 1 tablet (0.25 mg) by mouth 6 (six) times a day Patient states she takes it 1 in the morning, 1 at lunch, 2 in the evening and 2 at bed, Disp: 180 tablet, Rfl: 11 rOPINIRole (Requip) 1 MG tablet, Take 1 tablet (1 mg) by mouth at bedtime, Disp: 90 tablet, Rfl: 3 SITagliptin (Januvia) 25 MG tablet, Take 1 tablet (25 mg) by mouth Daily (Patient not taking: Reported on 03/30/2024), Disp: 90 tablet, Rfl: 1 terbinafine (LamISIL) 250 MG tablet, 1 (one) time each day at the same time., Disp: , Rfl: valACYclovir (Valtrex) 1 g tablet, Take 1,000 mg by mouth in the morning. as directed., Disp: , Rfl: valsartan (Diovan) 320 MG tablet, Take 1 tablet (320 mg) by mouth Daily, Disp: 90 tablet, Rfl: 1 ROS: Constitutional: Denies fever, chills, nausea, vomiting GI: Denies abdominal pain, cramping, loose stool, gastric ulcers Musculoskeletal: Denies low back pain, knee pain, systemic arthritis Neurologic: Denies burning, tingling, transient paralysis OBJECTIVE Physical examination: Vascular: Dorsalis pedis posterior tibial pulses are palpable bilateral, no edema noted Neuro: [place] 5.07 monofilament intact, vibratory sensation intact Derm: The lesion has resolved no signs of infection. 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 Porokeratosis PLAN Patient is doing well follow up p.r.n. MALINA Kraft documented in this encounter [facility] 06-06-2024 History of Presen t illness Narrative Images from the original note were not included. Patient: Virgilio Johnson : 1960 PCP: Oswaldo Grewal MD SUBJECTIVE This is a 64 y.o. 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 The area has improved less red wound is open the level subcutaneous tissue feeling significantly better. Allergies: Allergies Allergen Reactions Brimonidine Unknown Dorzolamide Unknown Dorzolamide Hcl-Timolol Mal Other Reaction(s): Unknown Latex Other Reaction(s): Intolerance States she cannot have anything with elastic or latex, She gets a severe rash and areas of breakdown and pus. Levalbuterol Unknown Other Other Reaction(s): Rash Timolol Unknown Penicillins Rash Had rash once years ago and does not remember if she has had PCN since then. Past Medical History: Past Medical History: Diagnosis Date Arthritis Contact dermatitis bilateral eyelids-sinusitis Folliculitis RIGHT KNEE Glaucoma ([facility]) 2007 History of transcatheter aortic valve replacement (TAVR) 03/20/2022 [facility] Hypertension ([facility]) Irritable bowel disease Irritable bowel syndrome 2006 Osteoarthritis 2013 RLS (restless legs syndrome) Medications: Current Outpatient Medications: acetaZOLAMIDE (Diamox) 500 MG 12 hr capsule, TAKE 1 CAPSULE BY MOUTH TWICE DAILY DIRECTED, Disp: , Rfl: amLODIPine (Norvasc) 10 MG tablet, Take 1 tablet (10 mg) by mouth Daily, Disp: 90 tablet, Rfl: 1 aspirin 81 MG EC tablet, 1 (one) time each day at the same time., Disp: , Rfl: atorvastatin (Lipitor) 10 MG tablet, Take 1 tablet (10 mg) by mouth Daily, Disp: 90 tablet, Rfl: 1 brimonidine (AlphaGAN P) 0.2 % ophthalmic solution, Administer 1 drop into both eyes in the morning and 1 drop before bedtime., Disp: , Rfl: chlorthalidone (Hygroton) 25 MG tablet, Take 25 mg by mouth in the morning., Disp: , Rfl: diclofenac (Voltaren) 50 MG EC tablet, , Disp: , Rfl: dicyclomine (Bentyl) 20 MG tablet, Take 1 tablet (20 mg) by mouth in the morning and 1 tablet (20 mg) before bedtime., Disp: 180 tablet, Rfl: 1 fluorouracil (Efudex) 5 % cream, Apply 1 application topically in the morning and 1 application before bedtime. APPLIED TO AFFECTED AREA WITH Q-TIP AND COVER WITH A BAND-AID WERE DUCT TAPE BID., Disp: 30 g, Rfl: 1 gabapentin (Neurontin) 300 MG capsule, Take 1 capsule (300 mg) by mouth in the morning and 1 capsule (300 mg) in the evening and 1 capsule (300 mg) before bedtime., Disp: 90 capsule, Rfl: 2 latanoprost (Xalatan) 0.005 % ophthalmic solution, Administer 1 drop into both eyes at bedtime., Disp: , Rfl: levothyroxine (Synthroid) 100 MCG tablet, Take 1 tablet (100 mcg) by mouth in the morning. Take before meals., Disp: 90 tablet, Rfl: 1 magnesium oxide (Mag-Ox) 400 mg tablet, Take 1 tablet (400 mg) by mouth in the morning and 1 tablet (400 mg) before bedtime., Disp: 180 tablet, Rfl: 3 meloxicam (Mobic) 7.5 MG tablet, Take 1 tablet (7.5 mg) by mouth Daily, Disp: 30 tablet, Rfl: 11 qioekfpu-qvsriyycs-ctsOBZIYzscw e (Polydex) 3.5-16111-0.1 ointment ophthalmic ointment, APPLY 1/2 INCH INTO BOTH EYES TWICE A DAY, Disp: , Rfl: oxyCODONE (Roxicodone) 5 MG immediate release tablet, 1-2 tablet as needed Orally every 4-6 hrs, Disp: , Rfl: prednisoLONE acetate (Pred-Forte) 1 % ophthalmic suspension, , Disp: , Rfl: rOPINIRole (Requip) 0.25 MG tablet, Take 1 tablet (0.25 mg) by mouth 6 (six) times a day Patient states she takes it 1 in the morning, 1 at lunch, 2 in the evening and 2 at bed, Disp: 180 tablet, Rfl: 11 rOPINIRole (Requip) 1 MG tablet, Take 1 tablet (1 mg) by mouth at bedtime, Disp: 90 tablet, Rfl: 3 SITagliptin (Januvia) 25 MG tablet, Take 1 tablet (25 mg) by mouth Daily (Patient not taking: Reported on 03/30/2024), Disp: 90 tablet, Rfl: 1 terbinafine (LamISIL) 250 MG tablet, 1 (one) time each day at the same time., Disp: , Rfl: valACYclovir (Valtrex) 1 g tablet, Take 1,000 mg by mouth in the morning. as directed., Disp: , Rfl: valsartan (Diovan) 320 MG tablet, Take 1 tablet (320 mg) by mouth Daily, Disp: 90 tablet, Rfl: 1 ROS: Constitutional: Denies fever, chills, nausea, vomiting GI: Denies abdominal pain, cramping, loose stool, gastric ulcers Musculoskeletal: Denies low back pain, knee pain, systemic arthritis Neurologic: Denies burning, tingling, transient paralysis OBJECTIVE Physical examination: Vascular: Dorsalis pedis posterior tibial pulses are palpable bilateral, no edema noted Neuro: [place] 5.07 monofilament intact, vibratory sensation intact Derm: All hair growth noted skin temperature is warm to cool knees to toes abscess noted to the right wart site ascending cellulitis ascending cellulitis noted abscess noted. Mild drainage noted on the right. Wound measures 0.3 cm x 0.3 cm x 4 mm deep is 10 percent fibrotic 90 percent granular cellulitis has resolved Musculoskeletal: Muscle strength +5/5 all intrinsic and extrinsic muscles tested ASSESSMENT 1. Venous insufficiency (chronic) (peripheral) 2. Chronic foot ulcer, right, with fat layer exposed (CMS/HCC) 3. Cellulitis of foot, right PLAN Patient is to continue her doxycycline 100 mg b.I.d. today the wound was debrided the level of subcutaneous tissue via sharp debridement. Recommended she apply Medihoney which was dispensed to her today. Wound debrided via sharp debridement to level of subcutaneous tissue compression was utilized for hemostasis follow up with me 2 week for reassessment she is going to attempt to offload the area MALINA Kraft documented in this encounter [facility] 05-29-2024 History of Presen t illness Narrative Images from the original note were not included. Patient: Virgilio Johnson : 1960 PCP: Osawldo Grewal MD SUBJECTIVE This is a 64 y.o. 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 The area has improved less red wound is open the level subcutaneous tissue Allergies: Allergies Allergen Reactions Brimonidine Unknown Dorzolamide Unknown Dorzolamide Hcl-Timolol Mal Other Reaction(s): Unknown Latex Other Reaction(s): Intolerance States she cannot have anything with elastic or latex, She gets a severe rash and areas of breakdown and pus. Levalbuterol Unknown Other Other Reaction(s): Rash Timolol Unknown Penicillins Rash Had rash once years ago and does not remember if she has had PCN since then. Past Medical History: Past Medical History: Diagnosis Date Arthritis Contact dermatitis bilateral eyelids-sinusitis Folliculitis RIGHT KNEE Glaucoma ([facility]) 2007 History of transcatheter aortic valve replacement (TAVR) 03/20/2022 [facility] Hypertension ([facility]) Irritable bowel disease Irritable bowel syndrome 2005 Osteoarthritis 2012 RLS (restless legs syndrome) Medications: Current Outpatient Medications: acetaZOLAMIDE (Diamox) 500 MG 12 hr capsule, TAKE 1 CAPSULE BY MOUTH TWICE DAILY DIRECTED, Disp: , Rfl: amLODIPine (Norvasc) 10 MG tablet, Take 1 tablet (10 mg) by mouth Daily, Disp: 90 tablet, Rfl: 1 aspirin 81 MG EC tablet, 1 (one) time each day at the same time., Disp: , Rfl: atorvastatin (Lipitor) 10 MG tablet, Take 1 tablet (10 mg) by mouth Daily, Disp: 90 tablet, Rfl: 1 brimonidine (AlphaGAN P) 0.2 % ophthalmic solution, Administer 1 drop into both eyes in the morning and 1 drop before bedtime., Disp: , Rfl: chlorthalidone (Hygroton) 25 MG tablet, Take 25 mg by mouth in the morning., Disp: , Rfl: diclofenac (Voltaren) 50 MG EC tablet, , Disp: , Rfl: dicyclomine (Bentyl) 20 MG tablet, Take 1 tablet (20 mg) by mouth in the morning and 1 tablet (20 mg) before bedtime., Disp: 180 tablet, Rfl: 1 doxycycline (Monodox) 100 MG capsule, Take 1 capsule (100 mg) by mouth in the morning and 1 capsule (100 mg) before bedtime. Do all this for 10 days. Take with at least 8 ounces (large glass) of water, do not lie down for 30 minutes after., Disp: 20 capsule, Rfl: 0 doxycycline (Monodox) 100 MG capsule, Take 1 capsule (100 mg) by mouth in the morning and 1 capsule (100 mg) before bedtime. Do all this for 10 days. Take with at least 8 ounces (large glass) of water, do not lie down for 30 minutes after., Disp: 20 capsule, Rfl: 0 fluorouracil (Efudex) 5 % cream, Apply 1 application topically in the morning and 1 application before bedtime. APPLIED TO AFFECTED AREA WITH Q-TIP AND COVER WITH A BAND-AID WERE DUCT TAPE BID., Disp: 30 g, Rfl: 1 gabapentin (Neurontin) 300 MG capsule, Take 1 capsule (300 mg) by mouth in the morning and 1 capsule (300 mg) in the evening and 1 capsule (300 mg) before bedtime., Disp: 90 capsule, Rfl: 2 latanoprost (Xalatan) 0.005 % ophthalmic solution, Administer 1 drop into both eyes at bedtime., Disp: , Rfl: levothyroxine (Synthroid) 100 MCG tablet, Take 1 tablet (100 mcg) by mouth in the morning. Take before meals., Disp: 90 tablet, Rfl: 1 magnesium oxide (Mag-Ox) 400 mg tablet, Take 1 tablet (400 mg) by mouth in the morning and 1 tablet (400 mg) before bedtime., Disp: 180 tablet, Rfl: 3 meloxicam (Mobic) 7.5 MG tablet, Take 1 tablet (7.5 mg) by mouth Daily, Disp: 30 tablet, Rfl: 11 fjyjulax-hrulyjeyf-aagEAEPYctlm e (Polydex) 3.5-64788-6.1 ointment ophthalmic ointment, APPLY 1/2 INCH INTO BOTH EYES TWICE A DAY, Disp: , Rfl: oxyCODONE (Roxicodone) 5 MG immediate release tablet, 1-2 tablet as needed Orally every 4-6 hrs, Disp: , Rfl: prednisoLONE acetate (Pred-Forte) 1 % ophthalmic suspension, , Disp: , Rfl: rOPINIRole (Requip) 0.25 MG tablet, Take 1 tablet (0.25 mg) by mouth 6 (six) times a day Patient states she takes it 1 in the morning, 1 at lunch, 2 in the evening and 2 at bed, Disp: 180 tablet, Rfl: 11 rOPINIRole (Requip) 1 MG tablet, Take 1 tablet (1 mg) by mouth at bedtime, Disp: 90 tablet, Rfl: 3 SITagliptin (Januvia) 25 MG tablet, Take 1 tablet (25 mg) by mouth Daily (Patient not taking: Reported on 03/30/2024), Disp: 90 tablet, Rfl: 1 terbinafine (LamISIL) 250 MG tablet, 1 (one) time each day at the same time., Disp: , Rfl: valACYclovir (Valtrex) 1 g tablet, Take 1,000 mg by mouth in the morning. as directed., Disp: , Rfl: valsartan (Diovan) 320 MG tablet, Take 1 tablet (320 mg) by mouth Daily, Disp: 90 tablet, Rfl: 1 ROS: Constitutional: Denies fever, chills, nausea, vomiting GI: Denies abdominal pain, cramping, loose stool, gastric ulcers Musculoskeletal: Denies low back pain, knee pain, systemic arthritis Neurologic: Denies burning, tingling, transient paralysis OBJECTIVE Physical examination: Vascular: Dorsalis pedis posterior tibial pulses are palpable bilateral, no edema noted Neuro: [place] 5.07 monofilament intact, vibratory sensation intact Derm: All hair growth noted skin temperature is warm to cool knees to toes abscess noted to the right wart site ascending cellulitis ascending cellulitis noted abscess noted. Mild drainage noted on the right. Wound measures 0.5 cm x 0.5 cm x 4 mm deep is 80 percent fibrotic 20 percent granular cellulitis has resolved Musculoskeletal: Muscle strength +5/5 all intrinsic and extrinsic muscles tested ASSESSMENT 1. Cellulitis of foot, right 2. Chronic foot ulcer, right, with fat layer exposed (CMS/HCC) 3. Venous insufficiency (chronic) (peripheral) PLAN Patient is to continue her doxycycline 100 mg b.I.d. today the wound was debrided the level of subcutaneous tissue via sharp debridement. Recommended she apply Medihoney which was dispensed to her today. Wound debrided via sharp debridement to level of subcutaneous tissue compression was utilized for hemostasis follow up with me 1 week for reassessment she is going to attempt to offload the area Bin Bradford DPM FACFAS documented in this encounter [facility] 05-22-2024 History of Presen t illness Narrative Images from the original note were not included. Patient: Virgilio Johnson : 1960 PCP: Oswaldo Grewal MD SUBJECTIVE This is a 64 y.o. 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 Areas red warm and swollen with slight ascending cellulitis. Denies fever chills nausea vomiting. On a scale of 1-10 the patient rates the pain as an 8 with 10 being the worst pain of the lives. Allergies: Allergies Allergen Reactions Brimonidine Unknown Dorzolamide Unknown Dorzolamide Hcl-Timolol Mal Other Reaction(s): Unknown Latex Other Reaction(s): Intolerance States she cannot have anything with elastic or latex, She gets a severe rash and areas of breakdown and pus. Levalbuterol Unknown Other Other Reaction(s): Rash Timolol Unknown Penicillins Rash Had rash once years ago and does not remember if she has had PCN since then. Past Medical History: Past Medical History: Diagnosis Date Arthritis Contact dermatitis bilateral eyelids-sinusitis Folliculitis RIGHT KNEE Glaucoma ([facility]) 2007 History of transcatheter aortic valve replacement (TAVR) 03/20/2022 Hypertension ([facility]) Irritable bowel disease Irritable bowel syndrome 2005 Osteoarthritis 2012 RLS (restless legs syndrome) Medications: Current Outpatient Medications: acetaZOLAMIDE (Diamox) 500 MG 12 hr capsule, TAKE 1 CAPSULE BY MOUTH TWICE DAILY DIRECTED, Disp: , Rfl: amLODIPine (Norvasc) 10 MG tablet, Take 1 tablet (10 mg) by mouth Daily, Disp: 90 tablet, Rfl: 1 aspirin 81 MG EC tablet, 1 (one) time each day at the same time., Disp: , Rfl: atorvastatin (Lipitor) 10 MG tablet, Take 1 tablet (10 mg) by mouth Daily, Disp: 90 tablet, Rfl: 1 brimonidine (AlphaGAN P) 0.2 % ophthalmic solution, Administer 1 drop into both eyes in the morning and 1 drop before bedtime., Disp: , Rfl: chlorthalidone (Hygroton) 25 MG tablet, Take 25 mg by mouth in the morning., Disp: , Rfl: diclofenac (Voltaren) 50 MG EC tablet, , Disp: , Rfl: dicyclomine (Bentyl) 20 MG tablet, Take 1 tablet (20 mg) by mouth in the morning and 1 tablet (20 mg) before bedtime., Disp: 180 tablet, Rfl: 1 doxycycline (Monodox) 100 MG capsule, Take 1 capsule (100 mg) by mouth in the morning and 1 capsule (100 mg) before bedtime. Do all this for 10 days. Take with at least 8 ounces (large glass) of water, do not lie down for 30 minutes after., Disp: 20 capsule, Rfl: 0 fluorouracil (Efudex) 5 % cream, Apply 1 application topically in the morning and 1 application before bedtime. APPLIED TO AFFECTED AREA WITH Q-TIP AND COVER WITH A BAND-AID WERE DUCT TAPE BID., Disp: 30 g, Rfl: 1 gabapentin (Neurontin) 300 MG capsule, Take 1 capsule (300 mg) by mouth in the morning and 1 capsule (300 mg) in the evening and 1 capsule (300 mg) before bedtime., Disp: 90 capsule, Rfl: 2 HYDROcodone-acetaminophen ([place]) 5-325 MG tablet, Take 1 tablet by mouth every 6 (six) hours if needed for moderate pain (PRN pain) for up to 5 days, Disp: 10 tablet, Rfl: 0 latanoprost (Xalatan) 0.005 % ophthalmic solution, Administer 1 drop into both eyes at bedtime., Disp: , Rfl: levothyroxine (Synthroid) 100 MCG tablet, Take 1 tablet (100 mcg) by mouth in the morning. Take before meals., Disp: 90 tablet, Rfl: 1 magnesium oxide (Mag-Ox) 400 mg tablet, Take 1 tablet (400 mg) by mouth in the morning and 1 tablet (400 mg) before bedtime., Disp: 180 tablet, Rfl: 3 meloxicam (Mobic) 7.5 MG tablet, Take 1 tablet (7.5 mg) by mouth Daily, Disp: 30 tablet, Rfl: 11 sdlqzeoa-zoereesnq-mvjNNIVVecnm e (Polydex) 3.5-78279-4.1 ointment ophthalmic ointment, APPLY 1/2 INCH INTO BOTH EYES TWICE A DAY, Disp: , Rfl: oxyCODONE (Roxicodone) 5 MG immediate release tablet, 1-2 tablet as needed Orally every 4-6 hrs, Disp: , Rfl: prednisoLONE acetate (Pred-Forte) 1 % ophthalmic suspension, , Disp: , Rfl: rOPINIRole (Requip) 0.25 MG tablet, Take 1 tablet (0.25 mg) by mouth 6 (six) times a day Patient states she takes it 1 in the morning, 1 at lunch, 2 in the evening and 2 at bed, Disp: 180 tablet, Rfl: 11 rOPINIRole (Requip) 1 MG tablet, Take 1 tablet (1 mg) by mouth at bedtime, Disp: 90 tablet, Rfl: 3 SITagliptin (Januvia) 25 MG tablet, Take 1 tablet (25 mg) by mouth Daily (Patient not taking: Reported on 03/30/2024), Disp: 90 tablet, Rfl: 1 terbinafine (LamISIL) 250 MG tablet, 1 (one) time each day at the same time., Disp: , Rfl: valACYclovir (Valtrex) 1 g tablet, Take 1,000 mg by mouth in the morning. as directed., Disp: , Rfl: valsartan (Diovan) 320 MG tablet, Take 1 tablet (320 mg) by mouth Daily, Disp: 90 tablet, Rfl: 1 ROS: Constitutional: Denies fever, chills, nausea, vomiting GI: Denies abdominal pain, cramping, loose stool, gastric ulcers Musculoskeletal: Denies low back pain, knee pain, systemic arthritis Neurologic: Denies burning, tingling, transient paralysis OBJECTIVE Physical examination: Vascular: Dorsalis pedis posterior tibial pulses are palpable bilateral, no edema noted Neuro: [place] 5.07 monofilament intact, vibratory sensation intact Derm: All hair growth noted skin temperature is warm to cool knees to toes abscess noted to the right wart site ascending cellulitis ascending cellulitis noted abscess noted. Mild drainage noted on the right. Musculoskeletal: Muscle strength +5/5 all intrinsic and extrinsic muscles tested ASSESSMENT 1. Abscess of right foot 2. Cellulitis of foot, right 3. Right foot pain PLAN I recommended the patient discontinue the Efudex at this time performed an incision and drainage of the abscess of the lateral aspect of the right foot started the patient on doxycycline 100 mg b.I.d. empirically. Recommended she apply Betadine daily dispensed Betadine for 2 applied daily and gave her a prescription for Vicodin for pain follow up 1 week MALINA Kraft documented in this encounter [facility] 05-15-2024 History of Presen t illness Narrative Patient: Virgilio Johnson : 1960 PCP: Oswaldo Grewal MD SUBJECTIVE This is a 64 y.o. female that presents today with a chief complaint of a painful lesion plantar aspect of the foot. They state the lesion has been slow growing and has multipled. The area is painful and causes marked limitation in ambulation secondary to the pain. They have attempted lmse-oxf-dwqgxdy anti-inflammatory medications as well as rwho-onh-omdsdsj wart treatment to no avail. Painful as the styloid process of the right 5th metatarsal. 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 Allergies: Allergies Allergen Reactions Brimonidine Unknown Dorzolamide Unknown Dorzolamide Hcl-Timolol Mal Other Reaction(s): Unknown Latex Other Reaction(s): Intolerance States she cannot have anything with elastic or latex, She gets a severe rash and areas of breakdown and pus. Levalbuterol Unknown Other Other Reaction(s): Rash Timolol Unknown Penicillins Rash Had rash once years ago and does not remember if she has had PCN since then. Past Medical History: Past Medical History: Diagnosis Date Arthritis Contact dermatitis bilateral eyelids-sinusitis Folliculitis RIGHT KNEE Glaucoma ([facility]) 2007 History of transcatheter aortic valve replacement (TAVR) 03/20/2022 Hypertension ([facility]) Irritable bowel disease Irritable bowel syndrome 2006 Osteoarthritis 2013 RLS (restless legs syndrome) Medications: Current Outpatient Medications: acetaZOLAMIDE (Diamox) 500 MG 12 hr capsule, TAKE 1 CAPSULE BY MOUTH TWICE DAILY DIRECTED, Disp: , Rfl: amLODIPine (Norvasc) 10 MG tablet, Take 1 tablet (10 mg) by mouth Daily, Disp: 90 tablet, Rfl: 1 aspirin 81 MG EC tablet, 1 (one) time each day at the same time., Disp: , Rfl: atorvastatin (Lipitor) 10 MG tablet, Take 1 tablet (10 mg) by mouth Daily, Disp: 90 tablet, Rfl: 1 brimonidine (AlphaGAN P) 0.2 % ophthalmic solution, Administer 1 drop into both eyes in the morning and 1 drop before bedtime., Disp: , Rfl: chlorthalidone (Hygroton) 25 MG tablet, Take 25 mg by mouth in the morning., Disp: , Rfl: diclofenac (Voltaren) 50 MG EC tablet, , Disp: , Rfl: dicyclomine (Bentyl) 20 MG tablet, Take 1 tablet (20 mg) by mouth in the morning and 1 tablet (20 mg) before bedtime., Disp: 180 tablet, Rfl: 1 fluorouracil (Efudex) 5 % cream, Apply 1 application topically in the morning and 1 application before bedtime. APPLIED TO AFFECTED AREA WITH Q-TIP AND COVER WITH A BAND-AID WERE DUCT TAPE BID., Disp: 30 g, Rfl: 1 gabapentin (Neurontin) 300 MG capsule, Take 1 capsule (300 mg) by mouth in the morning and 1 capsule (300 mg) in the evening and 1 capsule (300 mg) before bedtime., Disp: 90 capsule, Rfl: 2 latanoprost (Xalatan) 0.005 % ophthalmic solution, Administer 1 drop into both eyes at bedtime., Disp: , Rfl: levothyroxine (Synthroid) 100 MCG tablet, Take 1 tablet (100 mcg) by mouth in the morning. Take before meals., Disp: 90 tablet, Rfl: 1 magnesium oxide (Mag-Ox) 400 mg tablet, Take 1 tablet (400 mg) by mouth in the morning and 1 tablet (400 mg) before bedtime., Disp: 180 tablet, Rfl: 3 meloxicam (Mobic) 7.5 MG tablet, Take 1 tablet (7.5 mg) by mouth Daily, Disp: 30 tablet, Rfl: 11 [id number] e (Polydex) 3.5-82657-7.1 ointment ophthalmic ointment, APPLY 1/2 INCH INTO BOTH EYES TWICE A DAY, Disp: , Rfl: oxyCODONE (Roxicodone) 5 MG immediate release tablet, 1-2 tablet as needed Orally every 4-6 hrs, Disp: , Rfl: prednisoLONE acetate (Pred-Forte) 1 % ophthalmic suspension, , Disp: , Rfl: rOPINIRole (Requip) 0.25 MG tablet, Take 1 tablet (0.25 mg) by mouth 6 (six) times a day Patient states she takes it 1 in the morning, 1 at lunch, 2 in the evening and 2 at bed, Disp: 180 tablet, Rfl: 11 rOPINIRole (Requip) 1 MG tablet, Take 1 tablet (1 mg) by mouth at bedtime, Disp: 90 tablet, Rfl: 3 SITagliptin (Januvia) 25 MG tablet, Take 1 tablet (25 mg) by mouth Daily (Patient not taking: Reported on 03/30/2024), Disp: 90 tablet, Rfl: 1 terbinafine (LamISIL) 250 MG tablet, 1 (one) time each day at the same time., Disp: , Rfl: valACYclovir (Valtrex) 1 g tablet, Take 1,000 mg by mouth in the morning. as directed., Disp: , Rfl: valsartan (Diovan) 320 MG tablet, Take 1 tablet (320 mg) by mouth Daily, Disp: 90 tablet, Rfl: 1 Review of systems: Constitutional: Denies fever, chills, nausea, vomiting GI: Denies abdominal pain, cramping, loose stool, gastric ulcers Musculoskeletal: Denies low back pain, knee pain, systemic arthritis Neurologic: Denies burning, tingling, transient paralysis OBJECTIVE Physical Examination: DERM: Positive hair growth to b/l feet with good skin turgor noted. Negative openings in skin. There is pinpoint bleeding noted upon debridement. Pain with lateral compression. No skin lines running through the lesion. The lesions are multiple and sporadic. Small core noted at the center of the lesion VASC: DP /PT were palpable bilateral. Capillary refill time < 3 seconds Digits 1-5 bilateral NEURO: [place] 5.07 monofilament was intact B/L. Vibratory sensation was intact B/L Musculoskeletal: Muscle strength was +5 over 5 all intrinsic and extrinsic muscles tested. Radiographs: AP/MO/LAT: Diagnostic ultrasound: ASSESSMENT 1. Neoplasm of uncertain behavior of skin 2. Verruca plantaris 3. Right foot pain 4. Porokeratosis 5. Benign neoplasm of unknown origin PLAN Patient was educated on the etiology of the plantar neoplasm. We discussed surgical versus conservative options. From a surgical standpoint we discussed excision with pathological examination versus Chemo -lytic treatment. Today I debrided the lesions to the level of pinpoint bleeding. I applied an application of 60 percent salicylic acid to the lesions. Covered with an occlusive dressing. Recommended the patient start Efudex twice daily under occlusion follow up with me in 2 weeks for reassessment. MALINA Kraft documented in this encounter [facility] 05-14-2024 Telephone encounter Note 05/14/24 sent to nurse to review and send pt needs med sent to Liliam Garcia [facility] 05-14-2024 Miscellaneous Notes 05/14/24 sent to nurse to review and send pt needs med sent to Liliam Garcai documented in this encounter [facility] 03-30-2024 History of Presen t illness Narrative Images from the original note were not included. SUBJECTIVE Virgilio Johnson is a 64 y.o. female who presents for an annual wellness exam and chronic illness management visit. CURRENT MEDICATIONS Current Outpatient Medications: aspirin 81 MG EC tablet, 1 (one) time each day at the same time., Disp: , Rfl: atorvastatin (Lipitor) 10 MG tablet, Take 1 tablet (10 mg) by mouth Daily, Disp: 90 tablet, Rfl: 1 brimonidine (AlphaGAN P) 0.2 % ophthalmic solution, Administer 1 drop into both eyes in the morning and 1 drop before bedtime., Disp: , Rfl: chlorthalidone (Hygroton) 25 MG tablet, Take 25 mg by mouth in the morning., Disp: , Rfl: dicyclomine (Bentyl) 20 MG tablet, Take 1 tablet (20 mg) by mouth in the morning and 1 tablet (20 mg) before bedtime., Disp: 180 tablet, Rfl: 0 gabapentin (Neurontin) 300 MG capsule, Take 1 capsule (300 mg) by mouth in the morning and 1 capsule (300 mg) in the evening and 1 capsule (300 mg) before bedtime., Disp: 90 capsule, Rfl: 2 latanoprost (Xalatan) 0.005 % ophthalmic solution, Administer 1 drop into both eyes at bedtime., Disp: , Rfl: levothyroxine (Synthroid) 100 MCG tablet, Take 1 tablet (100 mcg) by mouth in the morning. Take before meals., Disp: 90 tablet, Rfl: 1 magnesium oxide (Mag-Ox) 400 mg tablet, Take 1 tablet (400 mg) by mouth in the morning and 1 tablet (400 mg) before bedtime., Disp: 180 tablet, Rfl: 3 meloxicam (Mobic) 7.5 MG tablet, Take 1 tablet (7.5 mg) by mouth Daily, Disp: 30 tablet, Rfl: 11 [id number]-rdptafjiv-apsEIHSOnmxg e (Polydex) 3.5-82314-4.1 ointment ophthalmic ointment, APPLY 1/2 INCH INTO BOTH EYES TWICE A DAY, Disp: , Rfl: prednisoLONE acetate (Pred-Forte) 1 % ophthalmic suspension, , Disp: , Rfl: rOPINIRole (Requip) 0.25 MG tablet, Take 1 tablet (0.25 mg) by mouth 6 (six) times a day Patient states she takes it 1 in the morning, 1 at lunch, 2 in the evening and 2 at bed, Disp: 180 tablet, Rfl: 11 rOPINIRole (Requip) 1 MG tablet, Take 1 tablet (1 mg) by mouth at bedtime, Disp: 90 tablet, Rfl: 3 valsartan (Diovan) 320 MG tablet, Take 1 tablet (320 mg) by mouth Daily, Disp: 90 tablet, Rfl: 1 acetaZOLAMIDE (Diamox) 500 MG 12 hr capsule, TAKE 1 CAPSULE BY MOUTH TWICE DAILY DIRECTED, Disp: , Rfl: amLODIPine (Norvasc) 10 MG tablet, Take 1 tablet (10 mg) by mouth Daily, Disp: 90 tablet, Rfl: 1 diclofenac (Voltaren) 50 MG EC tablet, , Disp: , Rfl: oxyCODONE (Roxicodone) 5 MG immediate release tablet, 1-2 tablet as needed Orally every 4-6 hrs, Disp: , Rfl: SITagliptin (Januvia) 25 MG tablet, Take 1 tablet (25 mg) by mouth Daily (Patient not taking: Reported on 03/30/2024), Disp: 90 tablet, Rfl: 1 terbinafine (LamISIL) 250 MG tablet, 1 (one) time each day at the same time., Disp: , Rfl: valACYclovir (Valtrex) 1 g tablet, Take 1,000 mg by mouth in the morning. as directed., Disp: , Rfl: RECENT VITAL SIGNS 06/15/2023 10:20 AM 09/12/2023 8:43 AM 09/23/2023 9:31 AM 12/16/2023 8:16 AM 02/06/2024 3:47 PM 03/24/2024 9:07 AM 03/30/2024 8:47 AM Vitals BMI 36.19 kg/m2 35.52 kg/m2 34.97 kg/m2 34.82 kg/m2 34.06 kg/m2 34.3 kg/m2 BSA (m2) 2.28 m2 2.26 m2 2.23 m2 2.23 m2 2.21 m2 2.21 m2 Systolic 155 162 132 142 142 172 130 Diastolic 82 82 82 76 76 98 62 Heart Rate 77 68 SpO2 98 % 98 % Temp 97 F 97.3 F Resp 16 Height (in) 5' 8 5' 8 5' 8 Weight (lb) 238 233.6 230 229 224 225.6 Visit Report Report Report Report RECENT LABS Recent Results (from the past 1008 hour(s)) ALL CBC WITH AUTO DIFF Collection Time: 03/24/24 8:11 AM Result Value Ref Range [facility] WBC 6.1 4.0 - 11.0 10 3/uL [facility] RBC 3.61 (L) 4.20 - 5.40 10 6/uL [facility] HGB 10.8 (L) 12.0 - 16.0 g/dL [facility] HCT 32.8 (L) 36.0 - 48.0 % [facility] MCV 90.9 81.0 - 99.0 fL [facility] MCH 29.9 26.7 - 34.0 pg [facility] MCHC 32.9 29.9 - 35.2 g/dL [facility] RDW 12.9 11.0 - 15.0 % [facility] PLT 251 150 - 450 10 3/uL [facility] MPV 9.5 9.5 - 13.5 fL NEUTROPHILS PERCENT AUTO 59.8 43.0 - 75.0 % LYMPHOCYTES PERCENT AUTO 28.7 20.5 - 60.0 % MONOCYTES PERCENT AUTO 7.4 1.7 - 12.0 % [facility] EO % 3.5 0.9 - 7.0 % BASOPHILS PERCENT AUTO 0.3 0.2 - 2.0 % IMMATURE GRANULOCYTES PCT AUTO 0.3 0.0 - 0.5 % NEUTROPHILS ABSOLUTE AUTO 3.6 1.4 - 6.5 10 3/uL LYMPHOCYTES ABSOLUTE AUTO 1.7 1.2 - 3.8 10 3/uL MONOCYTES ABSOLUTE AUTO 0.5 0.3 - 0.8 10 3/uL TBH EO # 0.2 0.0 - 0.7 10 3/uL BASOPHILS ABSOLUTE AUTO 0.0 0.0 - 0.1 10 3/uL IMMATURE GRANULOCYTES ABS AUTO 0.02 0.00 - 0.03 10 3/uL ALL THYROXINE (T4) FREE Collection Time: 03/24/24 8:11 AM Result Value Ref Range FREE T4 0.78 0.76 - 1.46 ng/dL [facility] CMP (CMP) (FOR REMOTE [facility] USE) Collection Time: 03/24/24 8:11 AM Result Value Ref Range SODIUM 139 136 - 145 mmol/L POTASSIUM 3.8 3.5 - 5.1 mmol/L CHLORIDE 105 98 - 107 mmol/L CARBON DIOXIDE 21.6 21.0 - 32.0 mmol/L ANION GAP 16.2 GLUCOSE 125 (H) 74 - 106 mg/dL BLOOD UREA NITROGEN 35.0 (H) 7.0 - 18.0 mg/dL CREATININE 1.05 (H) 0.55 - 1.02 mg/dL TB EGFR-AF FRENCH >60 >=60 TBH EGFR-NON AF FRENCH 53 (L) >=60 BUN CREATININE RATIO 33.3 CALCIUM 8.9 8.5 - 10.1 mg/dL BILIRUBIN TOTAL 0.4 0.2 - 1.0 mg/dL ASPARTATE AMINO TRANSFERASE 19 15 - 37 U/L ALANINE AMINOTRANSFERASE 23 14 - 59 U/L ALKALINE PHOSPHATASE 81 46 - 116 U/L TOTAL PROTEIN 7.3 6.4 - 8.2 g/dL ALBUMIN LEVEL 3.8 3.4 - 5.0 g/dL GLOBULIN 3.5 g/dL ALBUMIN GLOBULIN RATIO 1.1 ALL LIPID PROFILE (FASTING) Collection Time: 03/24/24 8:11 AM Result Value Ref Range TRIGLYCERIDES 117 <=150 mg/dL CHOLESTEROL 149 <=200 mg/dL HDL CHOLESTEROL 61 (H) 40 - 60 mg/dL LDL CHOLESTEROL CALCULATED 65.0 mg/dL VLDL CHOLESTEROL 23.4 mg/dL CHOL HDL RATIO 2.4 ALL THYROID STIM HORMONE Collection Time: 03/24/24 8:11 AM Result Value Ref Range THYROID STIMULATING HORMONE 1.649 0.358 - 3.740 uIU/mL POCT glycosylated hemoglobin (Hb A1C) docked device Collection Time: 03/30/24 8:55 AM Result Value Ref Range Hemoglobin A1C 6.2 POCT microalbumin manually resulted Collection Time: 03/30/24 9:00 AM Result Value Ref Range MICROALBUMIN, URINE 300 OBJECTIVE Physical Exam Vitals and nursing note reviewed. Constitutional: Appearance: Normal appearance. She is normal weight. HENT: Head: Normocephalic and atraumatic. Right Ear: Tympanic membrane, ear canal and external ear normal. Left Ear: Tympanic membrane, ear canal and external ear normal. Nose: Nose normal. Mouth/Throat: Mouth: Mucous membranes are moist. Eyes: Pupils: Pupils are equal, round, and reactive to light. Cardiovascular: Rate and Rhythm: Normal rate and regular rhythm. Pulses: Normal pulses. Heart sounds: Murmur heard. Pulmonary: Effort: Pulmonary effort is normal. Breath sounds: Normal breath sounds. Abdominal: General: Bowel sounds are normal. Palpations: Abdomen is soft. Musculoskeletal: General: Normal range of motion. Cervical back: Normal range of motion. Skin: General: Skin is warm and dry. Capillary Refill: Capillary refill takes less than 2 seconds. Neurological: General: No focal deficit present. Mental Status: She is alert and oriented to person, place, and time. Psychiatric: Mood and Affect: Mood normal. ASSESSMENT/PLAN Diagnoses and all orders for this visit: Adult general medical examination Atherosclerosis of aorta (CMS/[facility], [facility]) Type 2 diabetes mellitus without complication, unspecified whether oil heaterman insulin use (CMS/[facility], [facility]) - POCT glycosylated hemoglobin (Hb A1C) docked device - POCT microalbumin manually resulted Immunization due - Flu vaccine, MDCK, quadrivalent, PF ([id number]) (Flucelvax single dose syringe) Primary hypertension (CMS/HCC) - amLODIPine (Norvasc) 10 MG tablet; Take 1 tablet (10 mg) by mouth Daily Anemia, unspecified type - CBC auto differential; Future - Iron and TIBC; Future - Ferritin; Future - Vitamin B12; Future - Folate; Future Hypomagnesemia - Magnesium; Future FOLLOW-UP Follow up in about 4 months (around 07/30/2024) for Next scheduled follow-up: CIM . documented in this encounter [facility] 03-30-2024 Instructions Noemi Argueta NP - 03/30/2024 8:40 AM EDT PATIENT EDUCATION: ADULT WELLNESS Wellness performed at office visit today. Height, weight, BMI, problem list, and immunizations records reviewed. Encourage annual vision screenings and semi-annual dental care. Encourage to eat a diet that is rich in plant-based foods and lean protein. Encourage regular periods of exercise. Limit or eliminate junk food and sources of excess calories. Encourage to maintain open communication with provider regarding any changes in condition. Encourage 150 minutes of exercise weekly or amount appropriate to current level of function. Identify family/friend/social support and maintaining emotional connections. Follow-up as discussed. Patient verbalized importance of keeping open communication with health care providers. DM Prior to your visit today, our team reviewed your chart and outlined testing and treatment needed for your care. Possible complications of diabetes include possible loss of vision, increased risks of heart attack and stroke, and kidney failure. Your goals for your diabetic management are to keep your HgbA1c less than 7.0, your BP less than 130/80, and to maintain a healthy weight with a BMI of less than 26. We are working together to achieve these goals with the following plan of healthier diet, increased physical activity level, and medication understanding and compliance. Barriers to these goals have been discussed. HTN Possible complications of uncontrolled hypertension include stroke, congestive heart failure, heart attack, loss of vision, and kidney failure. Please complete labs as directed and call our office in one week if you have not received your lab results. Patient is encouraged to reduce salt in diet and to exercise at least 150 minutes per week. Avoid tobacco use and alcohol consumption. Please take all medications as prescribed. documented in this encounter [facility] 03-24-2024 History of Presen t illness Narrative Images from the original note were not included. CHIEF COMPLAINT REASON FOR VISIT: RLS HPI: Virgilio Johnson is a 64 y.o. female who presents for a follow up. She states she works night and after work she will take a ropinirole with the magnesium and gabapentin and then she will go to sleep. Before work she will take a gabapentin and two of the quarter ropinirole. She states the RLS will act up at work and she will take another gabapentin. 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 CURRENT MEDICATIONS: ALLERGIES/DISCONTINUE MEDICATIONS Current Outpatient Medications Medication Instructions acetaZOLAMIDE (Diamox) 500 MG 12 hr capsule TAKE 1 CAPSULE BY MOUTH TWICE DAILY DIRECTED amLODIPine (NORVASC) 10 mg, Oral, Daily aspirin 81 MG EC tablet Every 24 hours atorvastatin (LIPITOR) 10 mg, Oral, Daily brimonidine (AlphaGAN P) 0.2 % ophthalmic solution 1 drop, Both Eyes, 2 times daily chlorthalidone (HYGROTON) 25 mg, Oral, Daily diclofenac (Voltaren) 50 MG EC tablet dicyclomine (BENTYL) 20 mg, Oral, 2 times daily gabapentin (NEURONTIN) 300 mg, Oral, 3 times daily latanoprost (Xalatan) 0.005 % ophthalmic solution 1 drop, Both Eyes, Nightly levothyroxine (SYNTHROID) 100 mcg, Oral, Daily before breakfast magnesium oxide (MAG-OX) 400 mg, Oral, 2 times daily [id number]-wkikawtbh-glfWLSILxpcr e (Polydex) 3.5-47833-3.1 ointment ophthalmic ointment APPLY 1/2 INCH INTO BOTH EYES TWICE A DAY oxyCODONE (Roxicodone) 5 MG immediate release tablet 1-2 tablet as needed Orally every 4-6 hrs prednisoLONE acetate (Pred-Forte) 1 % ophthalmic suspension rOPINIRole (REQUIP) 0.25 mg, Oral, 6 times daily, Patient states she takes it 1 in the morning, 1 at lunch, 2 in the evening and 2 at bed rOPINIRole (REQUIP) 1 mg, Oral, Nightly SITagliptin (JANUVIA) 25 mg, Oral, Daily terbinafine (LamISIL) 250 MG tablet Every 24 hours tiZANidine (Zanaflex) 4 MG tablet 1 tablet as needed Orally at bedtime valACYclovir (VALTREX) 1,000 mg, Oral, Daily, as directed valsartan (DIOVAN) 320 mg, Oral, Daily Allergies Allergen Reactions Brimonidine Unknown Dorzolamide Unknown Dorzolamide Hcl-Timolol Mal Other Reaction(s): Unknown Latex Other Reaction(s): Intolerance States she cannot have anything with elastic or latex, She gets a severe rash and areas of breakdown and pus. Levalbuterol Unknown Other Other Reaction(s): Rash Timolol Unknown Penicillins Rash Had rash once years ago and does not remember if she has had PCN since then. Medications Discontinued During This Encounter Medication Reason magnesium oxide (Mag-Ox) 400 (240 Mg) MG tablet Therapy completed PAST MEDICAL HISTORY: SURGICAL/SOCIAL/FAMILY HISTORY DEPRESSION SCREEN: Past Medical History: Diagnosis Date Arthritis Contact dermatitis bilateral eyelids-sinusitis Folliculitis RIGHT KNEE Glaucoma (CMS/HCC) 2007 History of transcatheter aortic valve replacement (TAVR) 03/20/2022 Hypertension (CMS/HCC) Irritable bowel disease Irritable bowel syndrome 2005 Osteoarthritis 2012 RLS (restless legs syndrome) Past Surgical History: Procedure Laterality Date COLONOSCOPY 2004 COLONOSCOPY 01/16/2018 Normal EYE SURGERY 10/16/2017 pressure removal EYE SURGERY 10/2018 KNEE ARTHROPLASTY KNEE SURGERY 2012 Arthroscopy OTHER SURGICAL HISTORY laser treatment TAVR 03/20/2022 Dr. Nolasco THYROID SURGERY Left 05/2022 L thyroid gland removed Social History Tobacco Use Smoking status: Never Smokeless tobacco: Never Vaping Use Vaping status: Never Used Substance Use Topics Alcohol use: Never Comment: caffeine: 1-2 cups per day coffee, tea Drug use: Never Family History Problem Relation Name Age of Onset Heart failure Mother Yazmin at 75 y/o Diabetes Mother Yazmin Kidney disease Mother Yazmin Diabetes Father Art at 80 y/o Heart failure Father Art Thyroid disease Sister Mely 1958 Other (back disability) Sister Mely No Known Problems Brother Wu 1964 No Known Problems Daughter Eugenie 20 y/o No Known Problems Son Artis 34 y/o Depression: Not at risk (03/25/2023) PHQ-2 PHQ-2 Score: 0 REVIEW OF SYMPTOMS: Review of Systems Constitutional: Negative for chills, diaphoresis, fatigue and fever. HENT: Negative for ear pain, tinnitus and trouble swallowing. Eyes: Negative for photophobia and visual disturbance. Respiratory: Negative for cough and shortness of breath. Cardiovascular: Negative for palpitations and leg swelling. Gastrointestinal: Negative for abdominal pain and nausea. Genitourinary: Negative for difficulty urinating and urgency. Musculoskeletal: Negative for arthralgias, back pain, myalgias, neck pain and neck stiffness. Neurological: Negative for tremors, weakness, light-headedness and numbness. Psychiatric/Behavioral: Negative for agitation, confusion and suicidal ideas. OBJECTIVE: 03/24/2024 9:07 AM 02/06/2024 3:47 PM 12/16/2023 8:16 AM Vitals BMI 34.06 kg/m2 34.82 kg/m2 BSA (m2) 2.21 m2 2.23 m2 Systolic 172 142 142 Diastolic 98 76 76 Height (in) 5' 8 5' 8 Weight (lb) 224 229 Visit Report Report Report EXAM: Neurological Exam Mental Status Awake, alert and oriented to person, place and time. Oriented to person, place and time. Recent and remote memory are intact. Speech is normal. Language is fluent with no aphasia. Attention and concentration are normal. Cranial Nerves CN II: Visual acuity is normal. Visual peterson full to confrontation. CN III, IV, : Extraocular movements intact bilaterally. Normal lids and orbits bilaterally. Pupils equal round and reactive to light bilaterally. CN V: Facial sensation is normal. CN VII: Full and symmetric facial movement. CN VIII: Hearing is normal. CN XII: Tongue midline without atrophy or fasciculations. Motor Normal muscle bulk throughout. Normal muscle tone. Right Left Wrist flexion 5 5 Wrist extension 5 5 Right Left Deltoid 5 5 Biceps 5 5 Triceps 5 5 Wrist flexor 5 5 Wrist extensor 5 5 Glutei 5 5 Iliopsoas 5 5 Quadriceps 5 5 Gastrocnemius 5 5 Anterior tibialis 5 5 Posterior tibialis 5 5 Sensory Light touch is normal in upper and lower extremities. Pinprick is normal in upper and lower extremities. Vibration is normal in upper and lower extremities. Reflexes Right Left Brachioradialis 2+ 2+ Biceps 2+ 2+ Patellar 2+ 2+ Achilles 2+ 2+ Right Plantar: downgoing Left Plantar: downgoing Right pathological reflexes: Carrol's absent. Ankle clonus absent. Left pathological reflexes: Carrol's absent. Ankle clonus absent. Coordination Kwxhqs-[id number], rapid alternating movements and [id number] normal bilaterally without dysmetria. Gait Normal casual, toe, heel and tandem gait. Romberg is absent. PROCEDURE: NONE ASSESSMENT AND PLAN: Diagnoses and all orders for this visit: Carpal tunnel syndrome, bilateral Start meloxicam (Mobic) 7.5 MG tablet; Take 1 tablet (7.5 mg) by mouth Daily I will order left cock-up wrist splint RLS (restless legs syndrome) Continue with Gabapentin 300 mg TID Continue magnesium 400 mg BID, Continue ropinirole 1 mg at bedtime in addtion to the 0.25 mg 6 times daily. Follow up 3 months. documented in this encounter [facility] 03-20-2024 Telephone encounter Note PATIENT NEEDS REFILL OF GABAPENTIN BEFORE SAT APPOINTMENT SHE WILL NOT HAVE ENOUGH TO GET HER THROUGH UNTIL THEN. WAS ORIGINALLY SCHEDULED FOR THIS AST TUESDAY FOR F/U. [facility] 03-20-2024 Miscellaneous Notes PATIENT NEEDS REFILL OF GABAPENTIN BEFORE SAT APPOINTMENT SHE WILL NOT HAVE ENOUGH TO GET HER THROUGH UNTIL THEN. WAS ORIGINALLY SCHEDULED FOR THIS AST TUESDAY FOR F/U. documented in this encounter [facility] 03-16-2024 History of Presen t illness Narrative Subjective Virgilio Johnson is a 64 y.o. female Chief Complaint Follow-up HPI Patient is here for follow-up continue management for history of aortic valve replacement, hypertension, hyperlipidemia and obesity. Since last time I saw her she denies any change in cardiac status or symptoms. She remains active. She denies chest pain, palpitation, lightheadedness, dizziness or syncope. She described functional class II. Her activity is hampered by bilateral bilateral knee surgery. Assessment 1. Aortic stenosis status post TAVR done without any compli 2 years ago 2. Hypertension controlled 3. Hyperlipidemia no recent lab 4. Obesity with recent 5 pound weight loss 5.. I discussed with her endocarditis prophylaxis at great length Plan 1. I advised patient to continue present medical regimen 2. I advised her to repeat her lab work 3. I encouraged her to lose weight, exercise and diet and improved address her risk factor aggressively 4. Endocarditis prophylaxis 5. I will see her back in 1 year we will plan to repeat her echo before next office visit Review of Systems All other systems reviewed and are negative. Vitals: 03/16/24 1001 BP: 138/64 BP Location: Left arm Patient Position: Sitting Pulse: 64 Weight: 103 kg (227 lb 6.4 oz) Height: 1.753 m (5' 9 ) Objective Physical Exam Constitutional: Appearance: Normal appearance. HENT: Nose: Nose normal. Neck: Vascular: No carotid bruit. Cardiovascular: Rate and Rhythm: Normal rate. Pulses: Normal pulses. Heart sounds: Murmur heard. Systolic murmur is present with a grade of 2/6. Pulmonary: Effort: Pulmonary effort is normal. Abdominal: General: Bowel sounds are normal. Palpations: Abdomen is soft. Musculoskeletal: General: Normal range of motion. Cervical back: Normal range of motion. Right lower leg: No edema. Left lower leg: No edema. Skin: General: Skin is warm and dry. Neurological: General: No focal deficit present. Mental Status: She is alert. Psychiatric: Mood and Affect: Mood normal. Behavior: Behavior normal. Thought Content: Thought content normal. Judgment: Judgment normal. Allergies Brimonidine, Dorzolamide, Dorzolamide-timolol, Levalbuterol, Penicillins, and Timolol Current Medications Current Outpatient Medications: acetaminophen (Tylenol) 500 mg tablet, Take 1 tablet (500 mg) by mouth every 6 hours if needed for mild pain (1 - 3)., Disp: , Rfl: amLODIPine (Norvasc) 10 mg tablet, Take 1 tablet (10 mg) by mouth once daily., Disp: , Rfl: aspirin 81 mg EC tablet, Take 1 tablet (81 mg) by mouth once daily., Disp: , Rfl: brimonidine (AlphaGAN) 0.2 % ophthalmic solution, Administer 1 drop into both eyes 2 times a day., Disp: , Rfl: chlorthalidone (Hygroton) 25 mg tablet, TAKE 1 TABLET BY MOUTH DAILY, Disp: 90 tablet, Rfl: 3 dicyclomine (Bentyl) 20 mg tablet, Take 1 tablet (20 mg) by mouth 2 times a day., Disp: , Rfl: gabapentin (Neurontin) 100 mg capsule, Take 2 capsules (200 mg) by mouth 2 times a day., Disp: , Rfl: latanoprost (Xalatan) 0.005 % ophthalmic solution, Administer 1 drop into both eyes once daily at bedtime., Disp: , Rfl: levothyroxine (Synthroid, Levoxyl) 100 mcg tablet, Take 1 tablet (100 mcg) by mouth once daily in the morning. Take before meals., Disp: , Rfl: meloxicam (Mobic) 15 mg tablet, Take 1 tablet (15 mg) by mouth once daily., Disp: , Rfl: prednisoLONE acetate (Pred-Forte) 1 % ophthalmic suspension, Administer 1 drop into both eyes 4 times a day., Disp: , Rfl: rOPINIRole (Requip) 0.25 mg tablet, Take 1 tablet (0.25 mg) by mouth see administration instructions. Take 1 in the am, 1 at lunch, 2 at dinner and 2 at bedtime, Disp: , Rfl: atorvastatin (Lipitor) 10 mg tablet, Take 1 tablet (10 mg) by mouth once daily., Disp: 90 tablet, Rfl: 3 valsartan (Diovan) 320 mg tablet, Take 1 tablet (320 mg) by mouth once daily., Disp: 90 tablet, Rfl: 3 Assessment/Plan 1. Mixed hyperlipidemia atorvastatin (Lipitor) 10 mg tablet Alanine Aminotransferase Aspartate Aminotransferase Lipid Panel Alanine Aminotransferase Aspartate Aminotransferase Lipid Panel 2. Essential hypertension, benign Follow Up In Cardiology valsartan (Diovan) 320 mg tablet Basic Metabolic Panel Follow Up In Cardiology Transthoracic Echo Complete Basic Metabolic Panel 3. BMI 35.0-35.9,adult 4. Dyspnea, unspecified type 5. S/P TAVR (transcatheter aortic valve replacement) Transthoracic Echo Complete 6. Never smoked tobacco Scribe Attestation By signing my name below, Yue Alonso LPN, Scribe attest that this documentation has been prepared under the direction and in the presence of Josep Perdomo MD. Provider Attestation - Scribe documentation All medical record entries made by the Scribe were at my direction and personally dictated by me. I have reviewed the chart and agree that the record accurately reflects my personal performance of the history, physical exam, discussion and plan. documented in this encounter [facility] Work Phone: 03-16-2024 Instructions Yue Hall LPN - 03/16/2024 10:10 AM EDT Please bring all medicines, vitamins, and herbal supplements with you when you come to the office. Prescriptions will not be filled unless you are compliant with your follow up appointments or have a follow up appointment scheduled as per instruction of your physician. Refills should be requested at the time of your visit. BMI was above normal measurement. Current weight: 103 kg (227 lb 6.4 oz) Weight change since last visit (-) denotes wt loss -4.6 lbs Weight loss needed to achieve BMI 25: 58.5 Lbs Weight loss needed to achieve BMI 30: 24.7 Lbs Provided instructions on dietary changes Provided instructions on exercise. Echo one year and follow up afterwards Lab work documented in this encounter [facility] Work Phone: 03-15-2024 Telephone encounter Note Please contact patient and have her complete lab work prior to her next office visit. She is also due for urine microalbumin. [facility] Work Phone: 03-15-2024 Miscellaneous Notes Please contact patient and have her complete lab work prior to her next office visit. She is also due for urine microalbumin. documented in this encounter [facility] 09-09-2023 History of Presen t illness Narrative Evelyn Johnson is a 63 y.o. female Chief Complaint Follow-up; Hypertension Patient is here for follow-up continue management for hypertension, hyperlipidemia, obesity and aortic valve replacement. Since last time I saw her she denies any cardiac complaint. She has lost close to 20 pounds. She feels much better. She denies lightheadedness, dizziness or syncope. She remains active. Assessment 1. Aortic stenosis status post TAVR done without any complication 2. Hypertension seems to have improved with better control 3. Hyperlipidemia 4. Obesity she lost close to 30 pounds 5.. I discussed with her endocarditis prophylaxis at great length Plan 1. I advised patient to continue present medical regimen 2. I reviewed her previous lab 3. I encouraged her to lose weight, exercise and diet and improved address her risk factor aggressively 4. Endocarditis prophylaxis 5. Return back in 6 months Hypertension Review of Systems All other systems reviewed and are negative. Vitals: 09/09/23 1140 09/09/23 1155 BP: 144/66 138/68 BP Location: Left arm Left arm Patient Position: Sitting Sitting Pulse: 72 Weight: 105 kg (232 lb) Height: 1.727 m (5' 8 ) Objective Physical Exam Constitutional: Appearance: Normal appearance. She is normal weight. HENT: Nose: Nose normal. Neck: Vascular: No carotid bruit. Cardiovascular: Rate and Rhythm: Normal rate. Pulses: Normal pulses. Heart sounds: Normal heart sounds. Pulmonary: Effort: Pulmonary effort is normal. Abdominal: General: Bowel sounds are normal. Palpations: Abdomen is soft. Genitourinary: Rectum: Normal. Musculoskeletal: General: Normal range of motion. Cervical back: Normal range of motion. Right lower leg: No edema. Left lower leg: No edema. Skin: General: Skin is warm and dry. Neurological: General: No focal deficit present. Mental Status: She is alert. Psychiatric: Mood and Affect: Mood normal. Behavior: Behavior normal. Thought Content: Thought content normal. Judgment: Judgment normal. Allergies Brimonidine, Dorzolamide, Dorzolamide-timolol, Levalbuterol, Penicillins, and Timolol Current Medications Current Outpatient Medications: acetaminophen (Tylenol) 500 mg tablet, Take 1 tablet (500 mg) by mouth every 6 hours if needed for mild pain (1 - 3)., Disp: , Rfl: amLODIPine (Norvasc) 10 mg tablet, Take 1 tablet (10 mg) by mouth once daily., Disp: , Rfl: aspirin 81 mg EC tablet, Take 1 tablet (81 mg) by mouth once daily., Disp: , Rfl: atorvastatin (Lipitor) 10 mg tablet, Take 1 tablet (10 mg) by mouth once daily., Disp: , Rfl: brimonidine (AlphaGAN) 0.2 % ophthalmic solution, Administer 1 drop into both eyes 2 times a day., Disp: , Rfl: chlorthalidone (Hygroton) 25 mg tablet, Take 1 tablet (25 mg) by mouth once daily., Disp: , Rfl: dicyclomine (Bentyl) 20 mg tablet, Take 1 tablet (20 mg) by mouth 2 times a day., Disp: , Rfl: gabapentin (Neurontin) 100 mg capsule, Take 2 capsules (200 mg) by mouth 2 times a day., Disp: , Rfl: latanoprost (Xalatan) 0.005 % ophthalmic solution, Administer 1 drop into both eyes once daily at bedtime., Disp: , Rfl: levothyroxine (Synthroid, Levoxyl) 100 mcg tablet, Take 1 tablet (100 mcg) by mouth once daily in the morning. Take before meals., Disp: , Rfl: meloxicam (Mobic) 15 mg tablet, Take 1 tablet (15 mg) by mouth once daily., Disp: , Rfl: prednisoLONE acetate (Pred-Forte) 1 % ophthalmic suspension, Administer 1 drop into both eyes 4 times a day., Disp: , Rfl: rOPINIRole (Requip) 0.25 mg tablet, Take 1 tablet (0.25 mg) by mouth see administration instructions. Take 1 in the am, 1 at lunch, 2 at dinner and 2 at bedtime, Disp: , Rfl: SITagliptin phosphate (Januvia) 25 mg tablet, Take 1 tablet (25 mg) by mouth once daily., Disp: , Rfl: valsartan (Diovan) 320 mg tablet, Take 1 tablet (320 mg) by mouth once daily., Disp: , Rfl: Assessment/Plan 1. Essential hypertension, benign Follow Up In Cardiology 2. S/P TAVR (transcatheter aortic valve replacement) 3. Mixed hyperlipidemia 4. Dyspnea, unspecified type 5. BMI 35.0-35.9,adult Scribe Attestation By signing my name below, Virgilio Alonso LPN , Scribe attest that this documentation has been prepared under the direction and in the presence of Josep Perdomo MD. Provider Attestation - Scribe documentation All medical record entries made by the Scribe were at my direction and personally dictated by me. I have reviewed the chart and agree that the record accurately reflects my personal performance of the history, physical exam, discussion and plan. documented in this encounter [facility] Work Phone: 09-09-2023 Instructions Virgilio Euceda LPN - 09/09/2023 11:30 AM EST Please bring all medicines, vitamins, and herbal supplements with you when you come to the office. Prescriptions will not be filled unless you are compliant with your follow up appointments or have a follow up appointment scheduled as per instruction of your physician. Refills should be requested at the time of your visit. BMI was above normal measurement. Current weight: 105 kg (232 lb) Weight change since last visit (-) denotes wt loss -28 lbs Weight loss needed to achieve BMI 25: 67.9 Lbs Weight loss needed to achieve BMI 30: 35.1 Lbs Provided instructions on dietary changes. documented in this encounter [facility] Work Phone: 09-02-2023 Note HNO ID: [id number] Author: LUCAS LEVY PA-C Service: ? Author Type: Physician Agriculture Engineer Type: Progress Notes Filed: 09/02/2023 10:42 Note Text: This document has been created with the use of voice recognition technology. It may contain inaccuracies such as misspellings, inaccurate syntax or word sense that escaped review. Chief complaint: Recheck of right knee Revision right TKR 08/29/2022 (1 year) Left TKR 02/03/2022 (1-1/2 years) HISTORY: Virgilio is a 63 year old female. Patient comes in today for follow up of her right knee postoperatively. She reports she is doing great. She states pain is well controlled with no medication other than Voltaren. Made good progress with physical therapy. 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 Get some soreness in her back but notes with stiffness in the knee is gone and is not having any knee pain complaints. She has also lost 25 pounds since April and continues to be motivated to increase weight loss. Pain level 0/10. No other musculoskeletal complaints PAST MEDICAL HISTORY Diagnosis Date HLD (hyperlipidemia) HTN (hypertension) IBS (irritable bowel syndrome) OA (osteoarthritis) of knee Obesity RLS (restless legs syndrome) PAST SURGICAL HISTORY Procedure Laterality Date ARTHROSCOPY KNEE DIAGNOSTIC W/WO SYNOVIAL BX SPX right knee Arthroscopy, knee ARTHRP KNE CONDYLEANDPLATU MEDIALANDLAT COMPARTMENTS Right 2012 partial UCKR COLONOSCOPY SCREENING EYE SURGERY HX PAST SURGICAL HISTORY OF 03/18/2022 History of Aortic valve replacement PAST SURGICAL HISTORY OF lasik surgery PAST SURGICAL HISTORY OF Laser gonioplasty PAST SURGICAL HISTORY OF Left 05/2022 thyroidectomy Medications reviewed. ALLERGIES Allergen Reactions Latex Intolerance States she cannot have anything with elastic or latex, She gets a severe rash and areas of breakdown and pus. Penicillins Rash Had rash once years ago and does not remember if she has had PCN since then. Social History Tobacco Use Smoking status: Never Smokeless tobacco: Never Vaping Use Vaping Use: Never used Substance Use Topics Alcohol use: No Drug use: Never EXAMINATION: GENERAL: Appears healthy, well-nourished, no deformities. ORIENTATION: Alert and oriented to person place and time HABITUS: Normal GAIT: Ambulating with a normal brisk gait On physical exam of the right knee today, Appearance: No warmth or redness, wound is well-healed with no sign of infection. Calf is soft and nontender. Negative Homans. Tenderness: None Swelling: No swelling of the knee itself, no swelling distally Range of motion: 0-120 degrees easily, with just tightness at extremes Excellent quadriceps conditioning bilaterally. RADIOGRAPHS: None needed today IMPRESSION: Encounter Diagnosis ICD-10-CM 1. Aftercare following right knee joint replacement surgery Z47.1 Z96.651 2. 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 Status post left knee replacement Z96.652 She is doing quite well and is extremely pleased with her progress. Her weight loss continues to improve and she is motivated to continue this. We discussed limitations. We discussed the importance of keeping her strength up and her weight down for longevity of the knees. Follow-up in 1 year for annual recheck. Sooner if problems arise. Lucas Levy PA-C September 02, 2023 10:36 AM [facility] 09-02-2023 History of Presen t illness Narrative This document has been created with the use of voice recognition technology. It may contain inaccuracies such as misspellings, inaccurate syntax or word sense that escaped review. Chief complaint: Recheck of right knee Revision right TKR 08/29/2022 (1 year) Left TKR 02/03/2022 (1-07/19 years) HISTORY: Virgilio is a 63 year old female. Patient comes in today for follow up of her right knee postoperatively. She reports she is doing great. She states pain is well controlled with no medication other than Voltaren. Made good progress with physical therapy. 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 Get some soreness in her back but notes with stiffness in the knee is gone and is not having any knee pain complaints. She has also lost 25 pounds since April and continues to be motivated to increase weight loss. Pain level 0/10. No other musculoskeletal complaints PAST MEDICAL HISTORY Diagnosis Date HLD (hyperlipidemia) HTN (hypertension) IBS (irritable bowel syndrome) OA (osteoarthritis) of knee Obesity RLS (restless legs syndrome) PAST SURGICAL HISTORY Procedure Laterality Date ARTHROSCOPY KNEE DIAGNOSTIC W/WO SYNOVIAL BX SPX right knee Arthroscopy, knee ARTHRP KNE CONDYLE&PLATU MEDIAL&LAT COMPARTMENTS Right 2012 partial KR COLONOSCOPY SCREENING EYE SURGERY HX PAST SURGICAL HISTORY OF 03/18/2022 History of Aortic valve replacement PAST SURGICAL HISTORY OF lasik surgery PAST SURGICAL HISTORY OF Laser gonioplasty PAST SURGICAL HISTORY OF Left 05/2022 thyroidectomy Medications reviewed. ALLERGIES Allergen Reactions Latex Intolerance States she cannot have anything with elastic or latex, She gets a severe rash and areas of breakdown and pus. Penicillins Rash Had rash once years ago and does not remember if she has had PCN since then. Social History Tobacco Use Smoking status: Never Smokeless tobacco: Never Vaping Use Vaping Use: Never used Substance Use Topics Alcohol use: No Drug use: Never EXAMINATION: GENERAL: Appears healthy, well-nourished, no deformities. ORIENTATION: Alert and oriented to person place and time HABITUS: Normal GAIT: Ambulating with a normal brisk gait On physical exam of the right knee today, Appearance: No warmth or redness, wound is well-healed with no sign of infection. Calf is soft and nontender. Negative Homans. Tenderness: None Swelling: No swelling of the knee itself, no swelling distally Range of motion: 0-120 degrees easily, with just tightness at extremes Excellent quadriceps conditioning bilaterally. RADIOGRAPHS: None needed today IMPRESSION: Encounter Diagnosis ICD-10-CM 1. Aftercare following right knee joint replacement surgery Z47.1 Z96.651 2. 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 Status post left knee replacement Z96.652 She is doing quite well and is extremely pleased with her progress. Her weight loss continues to improve and she is motivated to continue this. We discussed limitations. We discussed the importance of keeping her strength up and her weight down for longevity of the knees. Follow-up in 1 year for annual recheck. Sooner if problems arise. Lucas Levy PA-C September 02, 2023 10:36 AM documented in this encounter [facility] 07-29-2023 Note HNO ID: [id number] Author: LUCAS LEVY PA-C Service: ? Author Type: Physician Agriculture Engineer Type: Progress Notes Filed: 07/29/2023 12:44 Note Text: This document has been created with the use of voice recognition technology. It may contain inaccuracies such as misspellings, inaccurate syntax or word sense that escaped review. Chief complaint: Recheck of stiffness in right and left knees Revision right TKR 08/29/2022 (11 months) Left TKR 02/03/2022 (1-1/2 years) HISTORY: Virgilio is a 63 year old female. Patient comes in today for follow up of her right and left knees with complaints of significant stiffness and swelling at the end of her day. She reports that any significant activities seem to irritate it if she is on her feet a long time such as work. She also notes it is worse in the cold weather. She states pain is well controlled with meloxicam but it does not seem to be helping as much as it used to and will occasionally supplement with ibuprofen. Made good progress with physical therapy. She has been working on weight loss and is down 20 pounds in the last few months. 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 She notes that her current job is a little bit easier than what she has had in the past asshe gets a few more breaks throughout her workday where she can sit down for half hour at a time. This has helped some. Denies any real pain complaints, just significant stiffness. Pain level 0/10. No other musculoskeletal complaints PAST MEDICAL HISTORY Diagnosis Date HLD (hyperlipidemia) HTN (hypertension) IBS (irritable bowel syndrome) OA (osteoarthritis) of knee Obesity RLS (restless legs syndrome) PAST SURGICAL HISTORY Procedure Laterality Date ARTHROSCOPY KNEE DIAGNOSTIC W/WO SYNOVIAL BX SPX right knee Arthroscopy, knee ARTHRP KNE CONDYLEANDPLATU MEDIALANDLAT COMPARTMENTS Right 2012 partial UCKR COLONOSCOPY SCREENING EYE SURGERY HX PAST SURGICAL HISTORY OF 03/18/2022 History of Aortic valve replacement PAST SURGICAL HISTORY OF lasik surgery PAST SURGICAL HISTORY OF Laser gonioplasty PAST SURGICAL HISTORY OF Left 05/2022 thyroidectomy Medications reviewed. ALLERGIES Allergen Reactions Latex Intolerance States she cannot have anything with elastic or latex, She gets a severe rash and areas of breakdown and pus. Penicillins Rash Had rash once years ago and does not remember if she has had PCN since then. Social History Tobacco Use Smoking status: Never Smokeless tobacco: Never Vaping Use Vaping Use: Never used Substance Use Topics Alcohol use: No Drug use: Never EXAMINATION: GENERAL: Appears healthy, well-nourished, no deformities. ORIENTATION: Alert and oriented to person place and time HABITUS: Normal GAIT: Ambulating with a relatively normal gait today On physical exam of the knees today, Appearance: No warmth or redness, wound is well-healed with no sign of infection. Calf is soft and nontender. Negative Homans. Tenderness: No significant tenderness about the knee Swelling: Minimal swelling of the knee itself today, no swelling distally Range of motion: 0 to 130 degrees on the left and 0- 120 degrees easily on the right, with just tightness at extremes Quadriceps conditioning is improving nicely. RADIOGRAPHS: Personally reviewed by myself and with the patient today demonstrating right and left TKR components in satisfactory position with good interfaces noted. No evidence of wear or loosening. Good general alignment. Level patella tracking on skyline view. No other osseous abnormalities. IMPRESSION: Encounter Diagnosis ICD-10-CM 1. 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 Status post left knee replacement Z96.652 XR KNEE POST OP 3V AP/LAT/MERCHANT BILATERAL PARKING FOR HANDICAPPED 3. S/P right unicompartmental knee replacement Z96.651 4. Knee joint stiffness, bilateral M25.661 PARKING FOR HANDICAPPED M25.662 We discussed that the stiffness is likely from a bit of swelling that she gets as the day goes on which is not surprising giving her physical job. For now she is tolerating it but might improve her symptoms with the different anti-inflammatory since she has been taking the meloxicam for quite some time. Will switch to Voltaren 50 mg twice a day which she should take with food as well and will discontinue the meloxicam. Will see how she does with this. She cannot tolerate any bracing on the knee without significant skin irritation. Follow-up in 1 month for annual recheck of her right knee. Discussed that I see no problems with the prosthesis himself and her strength is good. The intermittent inflammation may just be something we have to deal with until she is able to retire. Lucas Levy PA-C July 29, 2023 11:08 AM [facility] 07-29-2023 Note HNO ID: [id number] Author: BHUMIKA CASIANO RT(R) Service: ? Author Type: Technologist Type: Progress Notes Filed: 07/29/2023 10:36 Note Text: Radiology Service Progress Note PATIENT NAME: Virgilio Johnson DATE OF SERVICE: July 29, 2023 TIME: 10:36 AM PATIENT IDENTITY VERIFICATION COMPLETED USING TWO (2) IDENTIFIERS: Name and Date of confirmed by patient verbally. FALL SCREENING: Has the patient had 2 falls in the last year or 1 fall with injury or currently using an Ambulatory Assistive Device (Walker, Cane, Wheelchair, Crutches, etc.)? No PATIENT GENDER DATA: Female. status: : No status: NO. PATIENT RELEVANT IMPLANT DATA REVIEWED: Not Applicable RADIOLOGY DEPARTMENT: General X-ray: Exam(s) Completed: Lower Extremity X-Ray(s): Knee, AP / Lat / Merchant Bilateral and Wt. Bearing PERIPHERAL IV DATA: Not applicable SIGNED BY: RT Lauren(R) July 29, 2023 10:36 AM [facility] 03-17-2023 Chief complaint Narrative - Reported VIRGILIO JOHNSON is being seen for a cardiovascular evaluation . one year s/p TAVR follow-up.A telephone visit (audio only) between the patient (at the originating site) and the provider (at the distant site) was utilized to provide this telehealth service.Verbal consent was requested and obtained from VIRGILIO JOHNSON on this date, 03/17/2023 09:00 AM , for a telehealth visit. [facility] Work Phone: 03-06-2023 Note HNO ID: [id number] Author: Violet Combs MD Service: ? Author Type: Physician Type: Progress Notes Filed: 03/06/2023 3:04 PM Note Text: see dictated note Violet Combs II, MD [facility] 03-06-2023 History of Presen t illness Narrative see dictated note Violet Combs II, MD documented in this encounter [facility] 03-02-2023 Miscellaneous Notes [facility] patient notified Lucas Levy PA-C documented in this encounter [facility] 02-28-2023 Note HNO ID: [id number] Author: Violet Combs MD Service: Orthopaedic Surgery Author Type: Physician Type: Progress Notes Filed: 2023 4:47 PM Note Text: [facility] [address] [place] [address] CLINIC NOTE Department of Orthopaedics - Dilan Combs II, M.D. NAME: VIRGILIO JOHNSON CLINIC NO.: [id number] DATE OF SERVICE: 02/28/2023 CHIEF COMPLAINT: Recheck of right knee. Left TKR 02/03/2022 - 1 year. Right lateral [facility] 07/05/2013. Revision right TKR 08/29/2022 - 6 months. The patient is complaining of stiffness in her right revision TKR. This is a 62-year-old 5-foot 8-inch, 250-pound female. Has good range of motion of her hips. Has motion of her right knee 4 degrees to 115 degrees. X-RAYS: AP of both knees shows a cemented right total knee replacement and a cementless left total knee replacement. Both in excellent position. I have instructed exercise program for the patient's left knee and she understands this and will do this. She should improve considerably. Dictated By: Violet Combs II, M.D. Date Dictated: 03/04/2023 Date Typed: [facility] 03/04/2023 JOB# [id number] [facility] 02-28-2023 Note HNO ID: [id number] Author: Radha Le RT(R) Service: ? Author Type: Technologist Type: Progress Notes Filed: 02/28/2023 10:38 AM Note Text: Radiology Service Progress Note PATIENT NAME: Virgilio Johnson DATE OF SERVICE: February 28, 2023 TIME: 10:38 AM PATIENT IDENTITY VERIFICATION COMPLETED USING TWO (2) IDENTIFIERS: Name and Date of confirmed by patient verbally. FALL SCREENING: Has the patient had 2 falls in the last year or 1 fall with injury or currently using an Ambulatory Assistive Device (Walker, Cane, Wheelchair, Crutches, etc.)? No PATIENT GENDER DATA: Female. status: : No status: NO. PATIENT RELEVANT IMPLANT DATA REVIEWED: Not Applicable RADIOLOGY DEPARTMENT: General X-ray: Exam(s) Completed: Lower Extremity X-Ray(s): Knee, AP / Lat / Merchant Bilateral and Wt. Bearing PERIPHERAL IV DATA: Not applicable SIGNED BY: RT Aarti(R) February 28, 2023 10:38 AM [facility] 11-29-2022 Note HNO ID: [id number] Author: Lucas Levy PA-C Service: ? Author Type: Physician Agriculture Engineer Type: Progress Notes Filed: 11/29/2022 5:10 PM Note Text: This document has been created with the use of voice recognition technology. It may contain inaccuracies such as misspellings, inaccurate syntax or word sense that escaped review. Chief complaint: Recheck of right knee Revision right TKR 08/19/2022 (3+ months) HISTORY: Virgilio is a 62 year old female. Patient comes in today for follow up of her right knee postoperatively. She reports that her strength is improving with therapy but she still gets significant tightness. She felt really good after her 2 water therapy sessions and is scheduled for more over the next few weeks. Also scheduled for [place] therapy sessions. She states pain is well controlled with Tylenol and meloxicam and needs a new prescription for meloxicam today. She reports that she is trying to walk for exercise but has increased swelling which is bothersome. The knee always feels tight. Pain level 2 with more tightness than anything/10. No other musculoskeletal complaints PAST MEDICAL HISTORY Diagnosis Date HLD (hyperlipidemia) HTN (hypertension) IBS (irritable bowel syndrome) OA (osteoarthritis) of knee Obesity RLS (restless legs syndrome) PAST SURGICAL HISTORY Procedure Laterality Date ARTHROSCOPY KNEE DIAGNOSTIC W/WO SYNOVIAL BX SPX right knee Arthroscopy, knee ARTHRP KNE CONDYLEANDPLATU MEDIALANDLAT COMPARTMENTS Right 2012 partial UCKR COLONOSCOPY SCREENING EYE SURGERY HX PAST SURGICAL HISTORY OF 03/18/2022 History of Aortic valve replacement PAST SURGICAL HISTORY OF lasik surgery PAST SURGICAL HISTORY OF Laser gonioplasty PAST SURGICAL HISTORY OF Left 05/2022 thyroidectomy Medications reviewed. ALLERGIES Allergen Reactions Latex Intolerance States she cannot have anything with elastic or latex, She gets a severe rash and areas of breakdown and pus. Penicillins Rash Had rash once years ago and does not remember if she has had PCN since then. Social History Tobacco Use Smoking status: Never Smokeless tobacco: Never Vaping Use Vaping Use: Never used Substance Use Topics Alcohol use: No Drug use: Never EXAMINATION: GENERAL: Appears healthy, well-nourished, no deformities. ORIENTATION: Alert and oriented to person place and time HABITUS: Normal GAIT: Ambulates with an antalgic stifflegged gait On physical exam of the right knee today, Appearance: No warmth or redness, wound is healing satisfactorily with no sign of infection. Calf is soft and nontender. Negative Homans. Tenderness: Minimal tenderness about the knee Swellin+ effusion of the knee itself, no swelling distally Range of motion: 5-120 degrees easily, but with tightness at extremes Quadriceps conditioning is improving nicely. RADIOGRAPHS: None needed today IMPRESSION: Encounter Diagnosis ICD-10-CM 1. 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 Aftercare following right knee joint replacement surgery Z47.1 Z96.651 3. Knee effusion, right M25.461 Large Joint Arthro/Inj: R knee joint She is making good progress with therapy but the knee is still quite tight and making it difficult for her to walk for exercise to build her stamina. I feel that the swelling that she currently has is interfering with her ability to rehab this knee. Discussed risk benefits and alternatives to aspiration of the knee including the risk of infection in the joint replacement and she wishes to proceed. We discussed the use of ice for postinjection pain. She will continue with her water and land therapy. Continue to try to build her stamina by walking twice a day. Her gait dramatically improved after aspiration. We will plan return to work on 12/17/2022 with no restrictions. Follow-up in 3 months for recheck. Sooner if problems arise. Her prescription for meloxicam was refilled today. Large Joint Arthro/Inj: R knee joint Informed Consent Consent Obtained: Written [place] Protocol A moment to CARE was completed. SIGN IN Personnel directly involved with the procedure wore the appropriate PPE. Special Equipment: N/A Patient/Surrogate Stated/Verified: Patient name, Date of , Relevant allergies and Intended procedure TIME OUT Intended patient and procedure match the source document(s). Consent documented and matches the intended procedure. Relevant labs, photos, and/or imaging studies have been reviewed. Correct side/site marked and visible. Medications required for procedure verified. No fire risk assessment and interventions applicable. No implant(s) inserted. 11/29/2022 1:41 PM The procedure site was prepped in the usual sterile fashion. Site: R knee joint Aspirate: 30 mL clear, yellow and blood-tinged Outcome: Tolerated well, no immediate complications Post-injection instructions were reviewed with the patient and (more content not included)... [facility] 11-03-2022 Note HNO ID: [id number] Author: Lucas Levy PA-C Service: ? Author Type: Physician Agriculture Engineer Type: Progress Notes Filed: 11/11/2022 5:16 PM Note Text: This document has been created with the use of voice recognition technology. It may contain inaccuracies such as misspellings, inaccurate syntax or word sense that escaped review. Chief complaint: Recheck of right knee Revision right TKR 08/19/2022 (2-1/2 months) HISTORY: Virgilio is a 62 year old female. Patient comes in today for follow up of her right knee postoperatively. She reports that overall she is making progress, particularly with water therapy. She notes that she still gets a great deal of swelling if she walks any significant period of time. She states pain is well controlled with Tylenol. Making good progress with physical therapy, particularly water therapy. No other musculoskeletal complaints PAST MEDICAL HISTORY Diagnosis Date HLD (hyperlipidemia) HTN (hypertension) IBS (irritable bowel syndrome) OA (osteoarthritis) of knee Obesity RLS (restless legs syndrome) PAST SURGICAL HISTORY Procedure Laterality Date ARTHROSCOPY KNEE DIAGNOSTIC W/WO SYNOVIAL BX SPX right knee Arthroscopy, knee ARTHRP KNE CONDYLEANDPLATU MEDIALANDLAT COMPARTMENTS Right 2012 partial KR COLONOSCOPY SCREENING EYE SURGERY HX PAST SURGICAL HISTORY OF 03/18/2022 History of Aortic valve replacement PAST SURGICAL HISTORY OF lasik surgery PAST SURGICAL HISTORY OF Laser gonioplasty PAST SURGICAL HISTORY OF Left 05/2022 thyroidectomy Medications reviewed. ALLERGIES Allergen Reactions Latex Intolerance States she cannot have anything with elastic or latex, She gets a severe rash and areas of breakdown and pus. Penicillins Rash Had rash once years ago and does not remember if she has had PCN since then. Social History Tobacco Use Smoking status: Never Smokeless tobacco: Never Vaping Use Vaping Use: Never used Substance Use Topics Alcohol use: No Drug use: Never EXAMINATION: GENERAL: Appears healthy, well-nourished, no deformities. ORIENTATION: Alert and oriented to person place and time HABITUS: Normal GAIT: Ambulating with a slight antalgic gait on start up and then normal gait thereafter. On physical exam of the right knee today, Appearance: No warmth or redness, wound is healing satisfactorily with no sign of infection. Calf is soft and nontender. Negative Homans. Tenderness: No significant tenderness. Swelling: Minimal swelling of the knee itself, no swelling distally Range of motion: Near 0-120 degrees easily, with just tightness at extremes Quadriceps conditioning is improving but still lacking compared to her left leg. RADIOGRAPHS: None needed today IMPRESSION: Encounter Diagnosis ICD-10-CM 1. 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 She should continue with her strengthening exercises as well as water therapy. We discussed walking twice a day for exercise to help build her stamina. Follow-up in 1 month for recheck and determine whether she will be ready to return to work thereafter. She agrees with this plan. Lucas Levy PA-C November 03, 2022 11:08 AM [facility] 10-15-2022 Note HNO ID: [id number] Author: Violet Combs MD Service: ? Author Type: Physician Type: Progress Notes Filed: 10/15/2022 2:27 PM Note Text: see dictated note Violet Combs II, MD [facility] 10-15-2022 History of Presen t illness Narrative see dictated note Violet Combs II, MD documented in this encounter [facility] 10-15-2022 Note HNO ID: [id number] Author: Violet Combs MD Service: Orthopaedic Surgery Author Type: Physician Type: Progress Notes Filed: 10/18/2022 5:08 PM Note Text: [facility] [address] [place], [place] [address] CLINIC NOTE Department of Orthopaedics - Dilan Combs II, M.D. NAME: VIRGILIO JOHNSON CLINIC NO.: [id number] DATE OF SERVICE: 10/15/2022 CHIEF COMPLAINT: Recheck of right knee. Right revision TKR, 08/29/2022. Left TKR, 02/03/2022. The patient has excellent motion with her left total knee. ROM is 0 to 120 degrees. Right knee has flexion to 115 degrees, but lacks 7 to 10 degrees to full extension. Recommend we get her into some water therapy. Recommend water therapy at [facility], for stretching and strengthening exercises. She is scheduled to go back to work in about a month. We will see her back in 3 weeks. Dictated By: Violet Combs II, M.D. Date Dictated: 10/15/2022 Date Typed: [facility] 10/15/2022 JOB# [id number] [facility] 09-07-2022 Note HNO ID: [id number] Author: Lucas Levy PA-C Service: ? Author Type: Physician Agriculture Engineer Type: Progress Notes Filed: 09/07/2022 4:27 PM Note Text: This document has been created with the use of voice recognition technology. It may contain inaccuracies such as misspellings, inaccurate syntax or word sense that escaped review. Chief complaint: Recheck of right knee Right revision TKR 08-19-22 (3 weeks) Left TKR 02/03/2022 (7 months) HISTORY: Virgilio is a 62 year old female. Patient comes in today for follow up of her right knee postoperatively. She reports that overall she is doing fairly well. Making progress with physical therapy but sore afterwards. She states pain is well controlled with occasional oxycodone and Tylenol. Pain level 0-6/10. No other musculoskeletal complaints PAST MEDICAL HISTORY Diagnosis Date HLD (hyperlipidemia) HTN (hypertension) IBS (irritable bowel syndrome) OA (osteoarthritis) of knee Obesity RLS (restless legs syndrome) PAST SURGICAL HISTORY Procedure Laterality Date ARTHROSCOPY KNEE DIAGNOSTIC W/WO SYNOVIAL BX SPX right knee Arthroscopy, knee ARTHRP KNE CONDYLEANDPLATU MEDIALANDLAT COMPARTMENTS Right 2012 partial UCKR COLONOSCOPY SCREENING EYE SURGERY HX PAST SURGICAL HISTORY OF 03/18/2022 History of Aortic valve replacement PAST SURGICAL HISTORY OF lasik surgery PAST SURGICAL HISTORY OF Laser gonioplasty PAST SURGICAL HISTORY OF Left 05/2022 thyroidectomy Medications reviewed. ALLERGIES Allergen Reactions Latex Intolerance States she cannot have anything with elastic or latex, She gets a severe rash and areas of breakdown and pus. Penicillins Rash Had rash once years ago and does not remember if she has had PCN since then. Social History Tobacco Use Smoking status: Never Smokeless tobacco: Never Vaping Use Vaping Use: Never used Substance Use Topics Alcohol use: No Drug use: Never EXAMINATION: GENERAL: Appears healthy, well-nourished, no deformities. ORIENTATION: Alert and oriented to person place and time HABITUS: Normal GAIT: Ambulatory Aid: a walker ambulating with a flat-footed short stance gait though she can correct this when she concentrates and ambulate with a relatively normal gait and should be ready for a cane at this point. On physical exam of the right knee today, Appearance: No warmth or redness, wound is healing satisfactorily with no sign of infection. Calf is soft and nontender. Negative Homans. Tenderness: Moderate tightness across the anterior knee and distal quadriceps Swelling: Moderate swelling of the knee itself, no swelling distally Range of motion: Near 0-95 degrees easily, with just tightness at extremes Does have difficulty with active extension though can hold extension when brought there. RADIOGRAPHS: Personally reviewed by myself and with the patient today demonstrating right revision TKR components in satisfactory position with good interfaces noted. No evidence of wear or loosening. Level patellar tracking on skyline view. No other osseous abnormalities. IMPRESSION: Encounter Diagnosis ICD-10-CM 1. S/P revision of total knee, right Z96.651 XR KNEE POST OP 3V AP/LAT/MERCHANT RIGHT Overall she is doing fairly well and better than she think she is. We discussed the importance of walking now twice a day for exercise paying attention to her gait and may advance to a cane as tolerated. Discussed tricks to work on active and passive extension. Follow-up in 3 weeks for 6-week recheck. Lucas Levy PA-C September 07, 2022 4:22 PM [facility] 09-07-2022 History of Presen t illness Narrative This document has been created with the use of voice recognition technology. It may contain inaccuracies such as misspellings, inaccurate syntax or word sense that escaped review. Chief complaint: Recheck of right knee Right revision TKR 08-19-22 (3 weeks) Left TKR 02/03/2022 (7 months) HISTORY: Virgilio is a 62 year old female. Patient comes in today for follow up of her right knee postoperatively. She reports that overall she is doing fairly well. Making progress with physical therapy but sore afterwards. She states pain is well controlled with occasional oxycodone and Tylenol. Pain level 0-6/10. No other musculoskeletal complaints PAST MEDICAL HISTORY Diagnosis Date HLD (hyperlipidemia) HTN (hypertension) IBS (irritable bowel syndrome) OA (osteoarthritis) of knee Obesity RLS (restless legs syndrome) PAST SURGICAL HISTORY Procedure Laterality Date ARTHROSCOPY KNEE DIAGNOSTIC W/WO SYNOVIAL BX SPX right knee Arthroscopy, knee ARTHRP KNE CONDYLE&PLATU MEDIAL&LAT COMPARTMENTS Right 2012 partial UCKR COLONOSCOPY SCREENING EYE SURGERY HX PAST SURGICAL HISTORY OF 03/18/2022 History of Aortic valve replacement PAST SURGICAL HISTORY OF lasik surgery PAST SURGICAL HISTORY OF Laser gonioplasty PAST SURGICAL HISTORY OF Left 05/2022 thyroidectomy Medications reviewed. ALLERGIES Allergen Reactions Latex Intolerance States she cannot have anything with elastic or latex, She gets a severe rash and areas of breakdown and pus. Penicillins Rash Had rash once years ago and does not remember if she has had PCN since then. Social History Tobacco Use Smoking status: Never Smokeless tobacco: Never Vaping Use Vaping Use: Never used Substance Use Topics Alcohol use: No Drug use: Never EXAMINATION: GENERAL: Appears healthy, well-nourished, no deformities. ORIENTATION: Alert and oriented to person place and time HABITUS: Normal GAIT: Ambulatory Aid: a walker ambulating with a flat-footed short stance gait though she can correct this when she concentrates and ambulate with a relatively normal gait and should be ready for a cane at this point. On physical exam of the right knee today, Appearance: No warmth or redness, wound is healing satisfactorily with no sign of infection. Calf is soft and nontender. Negative Homans. Tenderness: Moderate tightness across the anterior knee and distal quadriceps Swelling: Moderate swelling of the knee itself, no swelling distally Range of motion: Near 0-95 degrees easily, with just tightness at extremes Does have difficulty with active extension though can hold extension when brought there. RADIOGRAPHS: Personally reviewed by myself and with the patient today demonstrating right revision TKR components in satisfactory position with good interfaces noted. No evidence of wear or loosening. Level patellar tracking on skyline view. No other osseous abnormalities. IMPRESSION: Encounter Diagnosis ICD-10-CM 1. S/P revision of total knee, right Z96.651 XR KNEE POST OP 3V AP/LAT/MERCHANT RIGHT Overall she is doing fairly well and better than she think she is. We discussed the importance of walking now twice a day for exercise paying attention to her gait and may advance to a cane as tolerated. Discussed tricks to work on active and passive extension. Follow-up in 3 weeks for 6-week recheck. Lucas Levy PA-C September 07, 2022 4:22 PM documented in this encounter [facility] 09-07-2022 Note HNO ID: [id number] Author: RT Ashlee(R) Service: ? Author Type: Technologist Type: Progress Notes Filed: 09/07/2022 2:06 PM Note Text: Radiology Service Progress Note PATIENT NAME: Virgilio Johnson DATE OF SERVICE: September 07, 2022 TIME: 2:05 PM PATIENT IDENTITY VERIFICATION COMPLETED USING TWO (2) IDENTIFIERS: Name and Date of confirmed by patient verbally. FALL SCREENING: Has the patient had 2 falls in the last year or 1 fall with injury or currently using an Ambulatory Assistive Device (Walker, Cane, Wheelchair, Crutches, etc.)? Yes, Patient High Risk for Falls What interventions were put in place to prevent falls during this visit? Instructed Patient to Call for Help if Needed, Offered Assistance with Transfers/Clothing, Instructed Patient to Remain Seated (Not on Exam Table) Until Exam, and Increased Observations by Caregivers PATIENT GENDER DATA: Female. status: : No status: NO. PATIENT RELEVANT IMPLANT DATA REVIEWED: Not Applicable RADIOLOGY DEPARTMENT: General X-ray: Exam(s) Completed: Lower Extremity X-Ray(s): Knee, AP / Lat / Merchant Right PERIPHERAL IV DATA: Not applicable SIGNED BY: RT Binta(R) September 07, 2022 2:05 PM [facility] 09-07-2022 Instructions Lucas Levy PA-C - 09/07/2022 2:53 PM EST Continue Physical Therapy Walk twice a day for exercise paying attention to your gait. Heel to toe and longer strides. You may wash the incision and treat like normal skin. Tissue massage to the skin around the incision to loosen it up, 2 minutes multiple times a day. You may use lotion on the incision/glue several times a day to soften the glue. Do not pick at the scabs. Let them fall off on their own. You may use heat on a low setting to relax tissues. Use Ice after activity/exercise. Heat loosen things up, Ice quiets things down. documented in this encounter [facility] 09-07-2022 History of Presen t illness Narrative Radiology Service Progress Note PATIENT NAME: Virgilio Johnson DATE OF SERVICE: September 07, 2022 TIME: 2:05 PM PATIENT IDENTITY VERIFICATION COMPLETED USING TWO (2) IDENTIFIERS: Name and Date of confirmed by patient verbally. FALL SCREENING: Has the patient had 2 falls in the last year or 1 fall with injury or currently using an Ambulatory Assistive Device (Walker, Cane, Wheelchair, Crutches, etc.)? Yes, Patient High Risk for Falls What interventions were put in place to prevent falls during this visit? Instructed Patient to Call for Help if Needed, Offered Assistance with Transfers/Clothing, Instructed Patient to Remain Seated (Not on Exam Table) Until Exam, and Increased Observations by Caregivers PATIENT GENDER DATA: Female. status: : No status: NO. PATIENT RELEVANT IMPLANT DATA REVIEWED: Not Applicable RADIOLOGY DEPARTMENT: General X-ray: Exam(s) Completed: Lower Extremity X-Ray(s): Knee, AP / Lat / Merchant Right PERIPHERAL IV DATA: Not applicable SIGNED BY: RT Binta(R) September 07, 2022 2:05 PM documented in this encounter [facility] 09-03-2022 Miscellaneous Notes patient requesting a refill of her oxy ir. She is 2 weeks postop revision TKR. Trying to taper down use. Discussed with the patient the benefits and risks regarding opioid pain medication. This patient underwent major orthopedic surgery which will require the dose of daily narcotic pain medication to exceed the 30 MED/day regulation and non-opioid pain medication alone will not be enough to control pain in the immediate post operative period. This patient will require 1 tablet every 4-6 hours short-term postoperatively for pain control. Will taper as tolerated to Tylenol. OARRS evaluation was appropriate. Rx sent to [facility]. documented in this encounter [facility] 08-20-2022 Note HNO ID: [id number] Author: Ella Pagan (Glass Sander Belt) Service: ? Author Type: ? Type: Plan of Care Filed: 08/20/2022 3:02 PM Note Text: The following medications were delivered to the patient: Medication List START taking these medications X aspirin, enteric coated 81 mg EC tablet Commonly known as: ASPIRIN, ENTERIC COATED Take 1 tablet by mouth twice daily for 4 weeks X oxyCODONE IR 5 mg immediate release tablet Commonly known as: ROXICODONE Take 1-2 tablets by mouth every 4-6 hours as needed for pain. CHANGE how you take these medications gabapentin 100 mg capsule Commonly known as: NEURONTIN Take 1 capsule by mouth twice daily for 30 days. What changed: how much to take CONTINUE taking these medications acetaminophen 500 mg tablet Commonly known as: TYLENOL Take 2 tablets by mouth every 8 hours. amLODIPine 5 mg tablet Commonly known as: NORVASC atorvastatin 10 mg tablet Commonly known as: LIPITOR clindamycin 300 mg capsule Commonly known as: Cleocin HCL TWO TABS ONE HOUR PRIOR TO DENTAL PROCEDURE AND TWO TABS SIX HOURS AFTER THE DENTAL PROCEDURE dicyclomine 20 mg tablet Commonly known as: BENTYL docusate sodium 100 mg capsule Commonly known as: COLACE Take 1 capsule by mouth twice daily as needed for Constipation. levothyroxine 100 mcg tablet Commonly known as: SYNTHROID terbinafine HCl 250 mg tablet Commonly known as: LamISIL tiZANidine 4 mg tablet Commonly known as: ZANAFLEX valsartan 320 mg tablet Commonly known as: DIOVAN You might also be taking other medications not listed above. If you have questions about any of your other medications, talk to the person who prescribed them or your Primary Care Provider. STOP taking these medications meloxicam 15 mg tablet Commonly known as: MOBIC mupirocin 2 % ointment Commonly known as: BACTROBAN ASK your doctor about these medications rOPINIRole 0.25 mg tablet Commonly known as: REQUIP Take 1 tablet by mouth three times daily. Ella Ej (Glass Sander Belt) PAGER: [email or web address] August 20, 2022 3:01 PM [facility] 08-20-2022 Note HNO ID: [id number] Author: Jennifer Herring PA-C Service: Orthopaedic Surgery Author Type: Physician Agriculture Engineer Type: Progress Notes Filed: 08/20/2022 10:08 AM Note Text: ORTHOPAEDIC POSTOP PROGRESS NOTE SERVICE DATE: 08/20/2022 SERVICE TIME: 8:30am Subjective Patient states that they are comfortable Well Controlled knee(s) pain. Denies incisional pain. Objective VITAL SIGNS: BP 138/50 Pulse 61 Temp 36.6 ?C (97.9 ?F) (Oral) Resp 18 Ht 172.7 cm (5' 7.99 ) Wt 115.2 kg (254 lb) SpO2 98% BMI 38.63 kg/m? INTAKE AND OUTPUT: Intake/Output Summary (Last 24 hours) at 08/20/2022 1006 Last data filed at 08/20/2022 0826 Gross per 24 hour Intake 3440 ml Output 1300 ml Net 2140 ml PHYSICAL EXAMINATION: Right Lower Extremity: Dorsalis pedis pulses palpable. Posterior tibial pulses palpable. Dorsi flexion 5/5. Plantar flexion 5/5. Extensor hallucis extension: 5/5. Sensory intact to light touch L1-S1. Dressing clean, dry, and intact. Surgical site Silverlon intact. Problem Review and Assessment: Patient monitored, no new events overnight. LABS: Recent Labs 08/20/22 0436 HB 8.8* HCT 26.3* DATA: Diagnostic tests reviewed for today's visit: Most recent labs Assessment/Plan S/P Procedure(s) (LRB): REVISION JOINT TOTAL KNEE FEMORAL AND ENTIRE TIBIAL COMPONENT [place] (Right) on 08/19/2022 POSTOP PLAN: Doing well postoperatively, pain controlled, hgb stable PT/OT eval- home PT WBAT DVT prophylaxis: with aspirin, additional anticoagulant is contraindicated due to bleeding risk and Intermittent pneumatic compression device (IPCD) Pain control Antibiotics: Discontinuing Antibiotics after 24 hours Case Management for discharge planning Anticipate dc home today once cleared by PT, OT AND Hosp medicine ACTIVE PROBLEM LIST Oa (Osteoarthritis) of Knee Acute Shoulder Bursitis Status Post Left Knee Replacement S/P TKR o/90 days Htn (Hypertension) Ibs (Irritable Bowel Syndrome) Hld (Hyperlipidemia) Obesity Obesity, Class II, Bmi 35-39.9 Primary Osteoarthritis of Left Knee Patellofemoral Arthritis of 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 Aortic Valve Stenosis Rls (Restless Legs Syndrome) Hypothyroidism Failed Total Knee, Right (Hcc) Failed Total Knee Arthroplasty, Initial Encounter ([facility]) Medication and Non-Pharmacologic VTE Prophylaxis/Anticoagulants Anticoagulant AND Antiplatelet Medications (From admission, onward) Start Dose Route Frequency Last Action Ordered Stop 08/20/22 0900 aspirin, enteric coated 81 mg tab(s) (Surgical Risk Categories) 81 mg ORAL 2 TIMES DAILY Given, 08/20 0824 08/19/22 1607 -- 08/19/22 1615 graduated compression stockings ([place] 08/19/22 1615 graduated compression stockings [place] 08/19/22 1615 activity - mobilize patient ([place] VTE Prophylaxis: VTE prophylaxis appropriate POST OPERATIVE COMPLICATIONS: Complicated by: uneventful/none SIGNATURE: Jennifer Herring PA-C PATIENT NAME: Virgilio Johnson DATE: August 20, 2022 TIME: 10:06 AM [facility] 08-20-2022 Note HNO ID: [id number] Author: Roma Ospina RN Service: Care Management Author Type: Registered Nurse Type: Care Mgt Initial Assessment Filed: 08/20/2022 9:55 AM Note Text: CARE MANAGEMENT: ASSESSMENT AND DISCHARGE PLAN SERVICE DATE: August 20, 2022 SERVICE TIME: 9:53 AM PRIMARY CARE PHYSICIAN: Oswaldo Grewal MD Primary Contact: Extended Emergency Contact Information Primary Emergency Contact: Artis Sanches Address: [address] [place] [address] Mobile Relation: Spouse ADMISSION STATUS: Inpatient Insurance Provider: [facility] [employer] GENERIC NEEDS PRIOR TO DISCHARGE Needs Prior to Discharge: OT/PT Evaluation POTENTIAL TRANSITION PLANS Outpatient Therapy Based on clinical judgement, Care Management will address the following needs: Medical Patient's perception of need for this admission: necessary ADVANCE DIRECTIVES Current Advance Directive: None Asphalt Roller Operator Attempted to Assist with AD Completion: Yes Action: Education Provided MS/BEHAVIOR Baseline Mental Status Prior to this Illness what was the patient's Baseline Mental Status?: Alert AND Oriented Prior to this illness, has anyone described the patient having any of the following behaviors?: Not Applicable Relationship of the informant to the patient:: Self READMISSION Last Discharge Date: 02/05/20 Is this Within the Past 30 days? 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 Grewal Last Known Visit: a few weeks ago Does the patient have transportation upon discharge?: Yes Situation: Use of any community resources?: No Does the patient have a stable and supportive living arrangement and home setting?: Yes Situation: lives with spouse and adult son Are there any potential risks or gaps identified by risk/functional/fall,etc. scores in the EMR?: No Any potential risks related to substance abuse and/or behavioral health?: No Based on clinical judgement, Care Management will address the following needs: Medical CAREGIVER ASSESSMENT Caregiver is ready, willing and able to meet the patient's needs as recommended by the inter-professional team:: Yes Name of Caregiver: spouse and son Patient's transition needs and plan for meeting these needs: return home, outpatient PT is plan MEDICAL Health Issues Impacting Discharge Plan: Chronic;Newly diagnosed Newly Diagnosed: s/p right total knee replacement Chronic: osteoarthritis, hypertension, hyperlipidemia, aortic valve stenosis, hypothyroidism, irritable bowel syndrome, and restless leg syndrome. No social discharge barriers identified at this time. No behavioral/cognitive discharge barriers identified at this time. No functional discharge barriers identified at this time. FREEDOM OF CHOICE EXPLAINED: [place] Choice Given: No Reason Not Given: No placements necessary Are you interested in bedside delivery of your medications? Yes ASSESSMENT AND PLAN: Met with patient at bedside. She was sitting in chair. She is s/p total right knee replacement. She is from home with spouse and an adult son. She has necessary DME (walker). She has an appointment for outpatient PT August 24 near [facility]. Her will transport her home at [facility] to follow. SIGNATURE: Roma Ospina RN PATIENT NAME: Virgilio Johnson DATE: August 20, 2022 TIME: 9:53 AM CONTACT #: [phone] [facility] 08-19-2022 Note HNO ID: [id number] Author: Chavez Cartagena RN Service: ? Author Type: Registered Nurse Type: Nursing Progress Note Filed: 08/19/2022 3:03 PM Note Text: Pt and family aware of pending admission to [address] [place] [address] 08-19-2022 Note HNO ID: [id number] Author: Alina Limon APRN.CRNA Service: Anesthesiology Author Type: Nurse Shorthand Reporter Type: Anesthesia Procedure Notes Filed: 08/19/2022 11:00 AM Note Text: ANESTHESIOLOGY PROCEDURE NOTE Peripheral Nerve Block General Information Procedure Start Time/Medication Administration: 08/19/2022 10:59 AM Procedure End time: 08/19/2022 10:59 AM Patient location during procedure: OR Timeout Performed Pre-procedure: timeout performed Consent Obtained: Yes 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, care steam press tender and patient sedated or unresponsive Reason for block: post-op pain management/at surgeon's request Staffing Anesthesiologist: Guerline Botello MD Performed by: anesthesiologist Preparation Sterility Preparation: hand hygiene performed prior to procedure, surgical cap used, mask used, sterile drape used during line insertion, skin prep agent completely dried prior to procedure Site Prep: Chloraprep Pre-Procedure Neuro Exam Location: RLE Sensory: sensory deficit Motor: pre-existing condition Procedure Details Patient Position: supine Monitoring: Pulse OX, EKG and NIBP Block Type Lower Extremity: distal femoral (adductor canal) Laterality: right Injection Technique: single-shot Ultrasound Guided: Yes Image in Chart: yes Local Infiltration: Yes Needle Needle Type: echogenic Needle Gauge: 22 G Needle Length: 100 mm Needle Localization: ultrasound Assessment Injection assessment: negative aspiration, no paresthesia on injection, incremental injection and local visualized surrounding nerve on ultrasound Post-Procedure Neuro Exam Expected Regional Anesthesia: Yes Medications Administered ropivacaine (PF) 5 mg/mL (0.5 %) injection (NAROPIN) - peripheral nerve block 20 mL - 08/19/2022 10:59:00 AM SIGNATURE: Alina Limon APRN.PRE ALGEBRA TEACHER PATIENT NAME: Virgilio Johnson DATE: August 19, 2022 TIME: 10:59 AM CSN: [id number] [facility] 08-19-2022 Note HNO ID: [id number] Author: Alina Limon APRN.PRE ALGEBRA TEACHER Service: Anesthesiology Author Type: Nurse Shorthand Reporter Type: Anesthesia Procedure Notes Filed: 08/19/2022 11:21 AM Note Text: ANESTHESIOLOGY PROCEDURE NOTE Spinal Block General Information Procedure Start Time/Medication Administration: 08/19/2022 10:50 AM Procedure End time: 08/19/2022 10:59 AM Patient location during procedure: OR Timeout Performed Pre-procedure: timeout performed Consent Obtained: Yes 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 and patient Reason for Block: primary surgical anesthetic Staffing Anesthesiologist: Guerline Botello MD PRE ALGEBRA TEACHER: Alina Limon APRN.PRE ALGEBRA TEACHER Performed by: anesthesiologist and PRE ALGEBRA TEACHER Preparation Sterility Preparation: hand hygiene performed prior to procedure, surgical cap used, mask used, sterile drape used during line insertion, skin prep agent completely dried prior to procedure Site Prep: Duraprep Procedure Details Patient Position: sitting Monitoring: Pulse Ox and NIBP Approach: Midline Location: L3-4 and L4-5 Injection Technique: single-shot Needle Needle Type: pencil-tip Needle Gauge: 25 G Needle Length: 3.5 in Assessment Events: tolerated well Medications Administered bupivacaine-dextrose 0.75 % (7.5 mg/mL) injection (SENSORCAINE MPF SPINAL) - INTRASPINAL 1.5 mL - 08/19/2022 10:50:00 AM SIGNATURE: Alina Limon APRN.PRE ALGEBRA TEACHER PATIENT NAME: Virgilio Johnson DATE: August 19, 2022 TIME: 10:49 AM CSN: [id number] [facility] 08-09-2022 History of Past i llness Narrative Problem Noted Date Resolved Date Acute cystitis without hematuria 08/09/2022 08/19/2022 Last Assessment & Plan: Assessment: per Urine Culture, Pt. treated per susceptibility Pt. notified; Pt. reports is Asymptomatic Effusion of right knee 03/27/2021 Effusion of left knee 04/30/2020 08/19/2022 Knee pain 07/05/2013 08/19/2022 documented as of this encounter (statuses as of 09/03/2022) [facility]01-23-2023 History of Past illness Narrative* Problem Noted Date Resolved Date Acute cystitis without hematuria 08/09/2022 08/19/2022 Last Assessment & Plan: Assessment: per Urine Culture, Pt. treated per susceptibility Pt. notified; Pt. reports is Asymptomatic Effusion of right knee 03/27/2021 3 Effusion of left knee 04/30/2020 08/19/2022 Knee pain 07/05/2013 08/19/2022 documented as of this encounter (statuses as of 09/07/2022) [facility]2023 History of Past illness Narrative* Problem Noted Date Resolved Date Acute cystitis without hematuria 08/09/2022 08/19/2022 Last Assessment & Plan: Assessment: per Urine Culture, Pt. treated per susceptibility Pt. notified; Pt. reports is Asymptomatic Effusion of right knee 03/27/2021 3 Effusion of left knee 04/30/2020 08/19/2022 Knee pain 07/05/2013 08/19/2022 documented as of this encounter (statuses as of 09/08/2022) [facility] History of Past illness Narrative* Problem Noted Date Resolved Date Acute cystitis without hematuria 08/09/2022 08/19/2022 Last Assessment & Plan: Assessment: per Urine Culture, Pt. treated per susceptibility Pt. notified; Pt. reports is Asymptomatic Effusion of right knee 03/27/2021 3 Effusion of left knee 04/30/2020 08/19/2022 Knee pain 07/05/2013 08/19/2022 documented as of this encounter (statuses as of 10/15/2022) [facility]20[facility] History of Past illness Narrative* Problem Noted Date Diagnosed Date Resolved Date Acute cystitis without hematuria 08/09/2022 08/19/2022 Last Assessment & Plan: Assessment: per Urine Culture, Pt. treated per susceptibility Pt. notified; Pt. reports is Asymptomatic Effusion of left knee 04/30/20202022 Knee pain 07/05/2013 08/19/2022 documented as of this encounter (statuses as of 03/02/2023) [facility] History of Past illness Narrative* Problem Noted Date Diagnosed Date Resolved Date Acute cystitis without hematuria 08/09/2022 08/19/2022 Last Assessment & Plan: Assessment: per Urine Culture, Pt. treated per susceptibility Pt. notified; Pt. reports is Asymptomatic Effusion of left knee 04/30/20202022 Knee pain 07/05/2013 08/19/2022 documented as of this encounter (statuses as of 03/06/2023) [facility] History of Past illness Narrative* Problem Noted Date Diagnosed Date Resolved Date Acute cystitis without hematuria 08/09/2022 08/19/2022 Last Assessment & Plan: Assessment: per Urine Culture, Pt. treated per susceptibility Pt. notified; Pt. reports is Asymptomatic Effusion of left knee 04/30/20202022 Knee pain 07/05/2013 08/19/2022 documented as of this encounter (statuses as of 09/02/2023) [facility]-19[facility]2023 History of Present illness Narrative* Violet Combs MD - 08/05/2022 12:10 PM EST SEE DICTATED NOTE Violet Combs II, MD documented in [facility] History and physical note * Rosa Stoddard APRN.EFFIE - 08/05/2022 8:30 AM EST Images from the original note were not included. HISTORY AND PHYSICAL EXAMINATION SERVICE DATE: 08/05/2022 SERVICE TIME: 8:30 AM PRIMARY CARE PHYSICIAN: Oswaldo Grewal MD REASON FOR VISIT: Virgilio Johnson is a 62 year old female who is scheduled for REVISION JOINT TOTAL KNEE FEMORAL AND ENTIRE TIBIAL COMPONENT LORETTA ( RIGHT) at the request of Dr. Violet Combs for consultation.My final recommendation will be communicated back to the requesting physician by way of shared medical record or letter. Subjective CHIEF COMPLAINT: right knee HPI: Pt. presenting with history of osteoarthritis of right knee S/P right unicompartmental knee replacement experiencing intermittent sharp pain while standing especially at work affecting activity level and quality of life. Pt. is currently taking Tylenol at this time. Pt. is recommended for surgery. PAST MEDICAL HISTORY Diagnosis Date HLD (hyperlipidemia) HTN (hypertension) IBS (irritable bowel syndrome) OA (osteoarthritis) of knee Obesity RLS (restless legs syndrome) PAST SURGICAL HISTORY Procedure Laterality Date ARTHROSCOPY KNEE DIAGNOSTIC W/WO SYNOVIAL BX SPX right knee Arthroscopy, knee ARTHRP KNE CONDYLE&PLATU MEDIAL&LAT COMPARTMENTS Right 2012 partial UCKR COLONOSCOPY SCREENING EYE SURGERY HX PAST SURGICAL HISTORY OF 03/18/2022 History of Aortic valve replacement PAST SURGICAL HISTORY OF lasik surgery PAST SURGICAL HISTORY OF Laser gonioplasty PAST SURGICAL HISTORY OF Left 05/2022 thyroidectomy FAMILY HISTORY Problem Relation Age of Onset Heart disease Mother Heart disease Father SOCIAL HISTORY: Social History Tobacco Use Smoking status: Never Smokeless tobacco: Never Vaping Use Vaping Use: Never used Substance Use Topics Alcohol use: No Drug use: Never Prior to Admission medications as of 08/05/22 1555 Medication Sig Last Dose Taking levothyroxine (SYNTHROID) 100 mcg tablet TAKE 1 TABLET BY MOUTH EVERY DAY IN THE MORNING ON AN EMPTY STOMACH Taking Yes terbinafine HCl (LAMISIL) 250 mg tablet Taking Yes tiZANidine (ZANAFLEX) 4 mg tablet Take 2-4 mg by mouth daily at bedtime. Taking Yes valsartan (DIOVAN) 320 mg tablet Take 320 mg by mouth once daily. Taking Yes amLODIPine (NORVASC) 5 mg tablet Take 5 mg by mouth once daily. Taking Yes clindamycin (CLEOCIN HCL) 300 mg capsule TWO TABS ONE HOUR PRIOR TO DENTAL PROCEDURE AND TWO TABS SIX HOURS AFTER THE DENTAL PROCEDURE Taking Yes acetaminophen (TYLENOL) 500 mg tablet Take 2 tablets by mouth every 8 hours. Taking Yes docusate sodium (COLACE) 100 mg capsule Take 1 capsule by mouth twice daily as needed for Constipation. Taking Yes meloxicam (MOBIC) 15 mg tablet Take 1 tablet by mouth once daily. with food Taking Yes rOPINIRole (REQUIP) 0.25 mg tablet Take 1 tablet by mouth three times daily. Taking Yes gabapentin (NEURONTIN) 100 mg capsule Take 1 capsule by mouth twice daily for 30 days. Taking Yes atorvastatin (LIPITOR) 10 mg tablet TK 1 T PO QD Taking Yes dicyclomine 20 mg tablet Take 20 mg by mouth twice daily. Taking Yes mupirocin (BACTROBAN) 2 % ointment Apply 0.5 inch with cotton swab (Q-tip) to each nostril in the morning and evening for 5 days prior to and including day of surgery. No medication comments found. ALLERGIES Allergen Reactions Latex Intolerance States she cannot have anything with elastic or latex, She gets a severe rash and areas of breakdown and pus. Penicillins Rash Had rash once years ago and does not remember if she has had PCN since then. COVID VACCINATION STATUS: Fully vaccinated REVIEW OF SYSTEMS: PAIN ASSESSMENT: General: No weight loss, malaise or fevers. Neuro: No history of TIA's, stroke, LASER BEAM CUTTER tumor, impaired sensorium, hemiplegia, paraplegia or quadraplegia. (+) RLS Respiratory: No history of current cough or dyspnea, or pneumonia in the past 6 weeks. No history of respiratory/pulmonary symptoms or problems. Cardiovascular: Negative for Arrhythmia, CAD, Chest Pain, CHF, PVD, DVT/PE(+) HTN,HLD, s/p TAVR GI: Negative for Nausea, Vomiting, Abdominal pain, Difficulty swallowing, Liver disease, Pancreatitis(+) IBS : No history of dysuria, frequency or incontinence,, stones or chronic kidney disease CHASSIS DRIVER: Negative for abnormal vaginal bleeding, abnormal vaginal discharge. : N/A, No LMP recorded. Patient is postmenopausal. Endocrine: Hypothyroidism, Prediabetes Hematology: No history of bleeding or clotting disorder. Pt is not taking anti- coagulation or platelet medications. No history of hematological symptoms or problems. Oncology: No history of CA metastasis, chemo within 30 days, or radiotherapy within 90 days. Has not lost 10% of body wt in 6 months. No history of oncological symptoms or problems. Psych: No history of psychiatric symptoms or problems. Musculoskeletal: See HPI Skin: Negative for lesions, rash and itching. Objective PHYSICAL EXAM: VITALS: BP 159/62 Pulse 65 Temp (Src) 97.5 (Temporal Artery) Resp 16 Ht 5' 8 (1.73m) Wt 254 lb (115.2kg) SpO2 99% BMI 38.63 kg/(m^2). General: Alert and oriented, No acute distress, Obese Skin: Normal color, no rash, no lesions. HEENT: EOM, pupils equal, round and reactive. Oropharynx clear. Neck Supple Cardiovascular: Normal S1 & S2, 3/6 SHEA heard throughout precordium, no rubs or gallops. No JVD. Pulse regular. Lungs: Normal breath sounds, no wheezes or crackles., No chest deformities or chest wall tenderness. Abdomen: Soft, non-tender, no rigidity., No masses or organomegaly. Extremities: No deformity, no edema or tenderness, no joint swelling or clubbing. , except right knee- detailed deferred to surgeon Neurological: Normal cognition and motor skills. TALAVERA 5/5, Antalgic gait Pulses: Carotid and radial pulses normal +2. Pedal pulses normal +2. Diagnostic tests reviewed for today's visit: Lab Value Units Date High Low HB 11.6 g/dL 08/05/2022 15.5 11.5 HCT 35.2 % 08/05/2022 46.0 36.0 WBC 5.93 k/uL 08/05/2022 11.00 3.70 PLT 265 k/uL 08/05/2022 400 150 NA 141 mmol/L 08/05/2022 144 136 K 4.2 mmol/L 08/05/2022 5.1 3.7 GLUC 106 mg/dL 08/05/2022 99 74 BUN 20 mg/dL 08/05/2022 21 7 CREAT 0.89 mg/dL 08/05/2022 0.96 0.58 PTSEC No results within date range. INR No results within date range. APTT No results within date range. ALT No results within date range. AST No results within date range. TBILI No results within date range. TSH No results within date range. Lab Value Units Date High Low HCGQT No results within date range. UHCG No results within date range. HCG, BODY* No results within date range. Lab Value Units Date High Low ABORHD No results within date range. ABSCREEN No results within date range. Hemoglobin A1C (%) Date Value 12/09/2021 6.3 01/08/2020 5.9 EKG:Procedure Date : Dec 09 2021 09:45:28 Edit Date : Dec 10 2021 14:18:00 Diagnosis: SINUS BRADYCARDIA WITH 1ST DEGREE AV BLOCK NONSPECIFIC T WAVE ABNORMALITY ABNORMAL ECG Outside 12/23/2021 EKG- scanned into [facility] 03/20/2022 ECHO Assessment/Plan HTN (hypertension) Assessment: Managed with med Date: BP: 08/05/2022 159/62 Stable. HLD (hyperlipidemia) Assessment: managed with statin IBS (irritable bowel syndrome) Assessment: Pt. reports stable with medication Obesity, Class II, BMI 35-39.9 Assessment: Body mass index is 38.62 kg/m . Weight reduction encouraged. Aortic valve stenosis Assessment: s/p TAVR (03/19/2022- ) Follows with Cardiology Dr. Josep Perdomo, ( last visit 04/01/2022, next visit 02/2023) Per office Visit: Patient requesting preoperative risk assessment for knee surgery. I advised that she can proceed with surgery after new year in 3 months Asymptomatic RLS (restless legs syndrome) Assessment: Controlled with med Hypothyroidism Assessment: s/p left thyroidectomy 05/2022 Managed with med Monitored by PCP METS: Climb a flight of stairs or walk up a hill (5.50 METs) Patient denies any chest pain or undue shortness of breath with the above physical activity. Climbs stairs at home ASA Class: 3 ANESTHESIA FINDINGS: Intubation History: No history of difficult intubation Significant Anesthesia Considerations: None Airway Exam: General: obese appearance Mallampati Score is CLASS III ULBT: Class II - Lower incisors can bite the upper lip below the jorge line Neck: Thick neck, Distance from hyoid to mentum during neck extension is at least 3 finger breaths Mouth: Normal tongue size and Mouth opening greater than 2 finger breaths Dentition: Intact and Caps/crowns Airway History: No abnormal airway history STOP BANG Score: Criteria: Snoring Hypertension Age over 50 (62 year old) Score = 3 PLAN This patient is optimally prepared for surgery pending consult CONSULTS: >Follows with Cardiology Dr. Josep Perdomo ( last visit 04/01/2022 [facility], next visit 02/2023)Per office Visit: Patient requesting preoperative risk assessment for knee surgery. I advised that she can proceed with surgery after new year in 3 months . [LETTER] for Cardiac Risk Assessment sent. >PCP for medical Risk Assessment(last visit 08/02/2022) [LETTER] [07/26/2022 LETTER] scanned into [facility] re: BP The Following Tests/Procedures Have Been Initiated: Labs ordered in Epic per Surgeon ( dated 06/01/2022) + Orders Placed This Encounter BMP Standing Status: Future Number of Occurrences: 1 Standing Expiration Date: 10/05/2022 CBC Standing Status: Future Number of Occurrences: 1 Standing Expiration Date: 10/05/2022 IRON + TIBC Standing Status: Future Number of Occurrences: 1 Standing Expiration Date: 10/05/2022 FERRITIN BLD Standing Status: Future Number of Occurrences: 1 Standing Expiration Date: 10/05/2022 levothyroxine (SYNTHROID) 100 mcg tablet Sig: TAKE 1 TABLET BY MOUTH EVERY DAY IN THE MORNING ON AN EMPTY STOMACH terbinafine HCl (LAMISIL) 250 mg tablet tiZANidine (ZANAFLEX) 4 mg tablet Sig: Take 2-4 mg by mouth daily at bedtime. valsartan (DIOVAN) 320 mg tablet Sig: Take 320 mg by mouth once daily. amLODIPine (NORVASC) 5 mg tablet Sig: Take 5 mg by mouth once daily. mupirocin (BACTROBAN) 2 % ointment Sig: Apply 0.5 inch with cotton swab (Q-tip) to each nostril in the morning and evening for 5 days prior to and including day of surgery. Dispense: 22 g Refill: 0 Planned Anesthetic: Per anesthesia choice Instructions Given to Patient: Instructions located in the after visit summary. Patient given verbal and written preop instructions and voices comprehension and compliance. SIGNATURE: Rosa Stoddard APRN.CNP PATIENT NAME: Virgilio Johnson DATE: August 05, 2022 TIME: 8:30 AM [facility] Instructions* Patient Instructions* Rosa Stoddard APRN.CNP - 08/04/2022 1:56 PM EST PATIENT PREOPERATIVE INSTRUCTIONS Violet Combs MD has scheduled you for your procedure at this surgery center: [facility]: [phone] --[id number] [place] [address]. Please enter through the entrance closest to [facility]. Please read below carefully for your personalized instructions. Dietary Restrictions: - No solid food after midnight. - You may have 12 ounces of clear liquids (water, clear juices such as apple juice or gatorade, carbonated beverages, clear tea, black coffee, jello) until 2 hours before scheduled arrival at facility. Medications: Unless instructed differently below, stay on all of your prescription medications until your surgery. Approved medications to take the morning of surgery with a sip of water: levothyroxine,gabapentin, amlodipine DO NOT TAKE YOUR valsartan THE NIGHT BEFORE OR MORNING OF SURGERY If you start any new medications after today's visit, please contact the surgeon's office. Blood Thinning Medications: - Stop NSAIDS (Ibuprofen, Advil, Aleve, Motrin, Celebrex, Mobic, etc.) 7 days before surgery, as directed by your surgeon. - Stop Aspirin 7 days before surgery, as directed by your surgeon. - Do NOT stop aspirin or other anticoagulants without consulting with your brief writer or prescribing physician. - Stop Vitamin E, ALL multi-vitamins, herbals and dietary supplements 7 days before surgery. - You may take Tylenol (Acetaminophen) or any of your pain medications that do not contain aspirin or NSAIDS as needed. Important Reminders: - Candy, mints, and tobacco products are NOT permitted the morning of surgery. - Hearing aids, dentures and glasses may be worn the morning of surgery. - NO jewelry, body piercings, makeup, hairpins or contacts are to be worn the day of surgery. If you develop symptoms such as a fever, cold, or flu, or have other changes to your health within TWO DAYS of scheduled surgery or the morning of surgery, please contact the surgery center above. Personal Belongings: -Please have photo ID and insurance cards. -If you do not have a copy of advance directives on file with us, please bring a copy with you on the day of surgery. - Leave ALL valuables and money at home or with family members. For Outpatient Procedures: - YOU MUST HAVE A RESPONSIBLE TECHNICAL SUPPORT COORDINATOR TAKE YOU HOME. A WHEELCHAIR VAN DRIVER OR CUSTOMER CONSULTANT CANNOT BE MADE A RESPONSIBLE TECHNICAL SUPPORT COORDINATOR. - We recommend that a responsible person stays with you overnight to take care of you. - You cannot stay in a hotel alone after outpatient surgery. You will not be permitted to have yoursurgery, if you do not have someone to take care of you. Arrival Time for Surgery: - The Surgery Center or hospital where you are having surgery will call the afternoon before surgery (or Tuesday for Tuesday surgery) with a scheduled arrival time. - If you have not heard by 4 pm, please contact the surgery center above. Please be aware that emergency situations arise, which may delay or change your surgical time. If this happens, we will notify you as soon as possible and regret any inconvenience. If you already have an Advance Directive, please fax a copy to [phone] or email to for it to be added to your chart. If you do not have an Advance Directive, you can find the appropriate form and more information at [email or web address]. We recommend that youcomplete the Advance Directive form found on the website and bring it with you the day of your surgery. It can be witnessed and scanned into your chart that day. documented in this encounterK[facility]-18-[facility] Nurse Note* Aline David RN - 08/04/2022 9:32 AM EST ORTHOPAEDIC SURGERY PRE-OP PATIENT Virgilio Johnson is a 62 year old female PROCEDURE: Revision of right Total Knee PROCEDURE DATE: 08/19/22 CHECKLIST: Informed Consent: Yes- In FiscalNote [facility]: No Pre-op Skin Preparation Cloths & Instructions of Use given to patient: Reviewed with pt and herhusband during this phone encounter. Nasal Swab completed for patient: PACC in the future. EDUCATION: READINESS TO LEARN COGNITIVE ABILITY: Alert and oriented MOTIVATION TO LEARN: Interested FAMILY SUPPORT: Unable to assess - Family not present joined conversation over the phone. INSTRUCTION PROVIDED TO: Patient and family member FACTORS AFFECTING LEARNING: None PHYSICAL LIMITATIONS AFFECTING LEARNING: None ISSUES REVIEWED: EDUCATION TOPIC/ TEACHING POINTS: -Day of Surgery (see below) -Hospital Course -Incision Care -Home PT -Home pain Medication: Refill Protocol, Side Effects -Afterhours Number Given- page ortho resident pest control supervisor at [phone] METHOD OF INSTRUCTION: Individual instruction, Written instruction - handouts, and Verbal instruction PRE-OPERATIVE INSTRUCTIONS REVIEWED: -Arrival time/location -NPO after midnight -Advanced Directives -ID + insurance card -Bring to hospital: Bipap, Cpap, Non-skid shoes, hearing aids -Do not bring: Excessive money, valuables, jewelry, medications (unless instructed) -Stop NSAIDS 7 days prior to surgery -Stop Aspirin and herbal supplements 10-14 days prior -Reviewed patient handout instructions for Preop Skin Preparation POST-OPERATIVE INSTRUCTIONS: -Call office if questions/concerns -Afterhour for resident pest control supervisor INFECTION MANAGEMENT: -Signs and symptoms of an infection -Importance of contacting the physician MEDICATION SIDE EFFECTS: -Side effects associated with the medication that warrant a call to the physician WOUND CARE: -Correct procedure to perform wound care DISCHARGE PLAN: -Patient referred to rapid recovery program and [place] Choice was offered to Patient about Rehab facility/ SNF/ Home care. SUPPLEMENTAL MATERIAL GIVEN: Yes RISK FACTORS: HVR,Hypertension,RLS,Hyperlipidemia and IBS FOLLOW-UP PLAN: Patient instructed to call with any further issues If any questions or concerns arise before the surgery, the patient was instructed to call the office for assistance. If there are no further questions or issues, the patient will be seen the day of the procedure, prior to proceeding with surgery. Aline David RN Patient in for Revision Right Total Knee Arthroplasty with Dr. Combs, medical consult per PACC. Cardiac clearance needed at this time:No Dental clearance needed at this time?No Patient is identified by name and birthdate: Yes Allergies reviewed: Yes Medication- prescribed and OTC reviewed and updated: Yes Latex allergy: yes Does the patient have a metal allergy? No Is the patient having any pain?: Yes: Location of pain is in the right knee globally. Pain Scale: 8on a scale from 0-10 Pain Character: aching, sharp, stabbing, and throbbing Duration: (How long have you had the pain?) several years Frequency: (How often does the pain occur?) occurs daily Pt. instructed to stop meds per PACC and will take the following meds per anesthesia guidelines perPACC Anticoagulation therapy consisting of ASA 81 mg twice a day for 6 weeks postop, gatito hose, compression wraps, and exercise discussed with patient. Pt. has prescription drug coverage. Autologous donation discussed with patient, Pt will receive acid.. Patient lives with her and plans to go home with OP[facility]PT at [facility]. Patient has walker Yes , cane Yes , shower bench No elevated toilet seat No Patient is 248 lbs 0 oz and is Height (cm or in): 5'8 Guide to recovery, follow your pathway to recovery after joint replacement surgery materials given to patient prior to end of session. Pt. had no other questions or concerns at this time. Aline David RN documented in this encounterK[facility]11-15-2022 History of Present illness Narrative* Violet Combs MD - 06/01/2022 7:48 AM EST see dictated note Violet Combs II, MD documented in this encounterK[facility]10-27-2022 Chief complaint Narrative - Reported* VRIGILIO JOHNSON is being seen for a cardiovascular evaluation . 1 month s/p TAVR. * A telephone visit (audio only) between the patient (at the originating site) and the provider (at the distant site) was utilized to provide this telehealth service. * Verbal consent was requested and obtained from VIRGILIO JOHNSON on this date, 05/13/2022 03:00 PM , for a telehealth visit. PN-Kcrqvmeccx-Hlfpawd Work Phone: 1(218) 815-296109-27-2022 Miscellaneous Notes* Telephone Encounter - Ann Hunter - 04/13/2022 4:02 PM EDT Resolved. Spoke with pt today. Form is revised and faxed today to [facility]. See FYI for details. * Telephone Encounter - Aleida Mckenzie - 04/01/2022 11:57 AM EDT Patient calling. She would request her intermittent FMLA be extended again while her cardiac issuesare being addressed. Please call her at [phone] to advise. Thank you. PHYLLIS Dejesus, VEHICLE BODY BUILDER ([facility]) [facility] [employer] Please note: Please do not re-route phone encounters back to this agent, please send to appropriateoffice pool. Agent works in call center and cannot complete patient specific tasks. documented in this encounterK[facility]09-03-2022 NoteSend Summary: Discharge Summary Providers: Provider RoleProvider Name ReferringJosep Perdomo AttendingLashon Longoria Brian A Note Recipients: Oswaldo Grewal MD - [id number] [] Lashon Longoria MD Traboulssi, Mourhaf, MD - [id number] [preferred] Discharge: Summary: Admission Date: .19-Mar-2022 08:18:00 Discharge Date: 20-Mar-2022 Attending Physician at Discharge: Lashon Longoria Admission Reason: -s/p TAVR w/ c/f injury to catheterization sites in s/o restless leg syndrome (now sedated requiring intubation)(1) Final Discharge Diagnoses: S/P TAVR (transcatheter aortic valve replacement) Procedures: TAVR (03/19) Condition at Discharge: Satisfactory Disposition at Discharge: .Home Vital Signs: T PRBPMAPSpO2 [id number]/025326% Date/Time03/20 16:009/3 13:009/3 13:009/3 13:009/3 13:009/3 8:00 Range(35.9C - 36.6C ) (57 - 85 ) (13 - 31 ) (101 - 186 )/ (34 - 84 ) (54 - 110 ) (91% - 100% ) As of 20-Mar-2022 00:00:00, patient is on 2 L/min of oxygen via room air. Date: Weight/Scale Type:Height: 19-Mar-2022 17:53251 kg / jiu365.1 cm Physical Exam: General: no acute distress, grossly oriented, no tenderness/bleeding/erythema at b/l femoral and R IJ access sites HEENT: normocephalic Cardiac: normal rate, regular rhythm, no S3/S4, systolic murmur, no rubs/gallops Volume: no LE pitting edema, no JVD, mucous membranes moist Pulses: posterior tibial pulses palpable b/l Pulmonary: non-labored, breath sounds equal b/l, no crackles/wheezing/stridor, no accessory muscle usage Gastrointestinal: soft, non-tender, no masses Musculoskeletal: grossly full active ROM throughout Integumentary: skin grossly intact, no apparent lesions/wounds, no rash Neurological: cranial nerves grossly intact, extremities moving symmetrically, restless legs Psychological: appropriate affect Hospital Course: Ms. Virgilio Johnson is a 62 yo F w/ PMH pertinent for now s/p TAVR (03/19), restless leg syndrome, and HTN. Initially presented to [facility] (03/19) for scheduled TAVR for severe symptomatic w/ exertional dyspnea. Underwent successful TAVR w/ 29mm evolut FX. Access w/ R femoral artery s/p 2 proglide and L femoral artery (6french) s/p 1 proglide. TVP via R IJ vein (7french). Was sedated and intubated for procedure given c/f movement during procedure in s/o restless leg syndrome. After surgery, admitted to CICU for continued sedation and intubation until at least 2hours post-procedure to limit movement to protect femoral access sites. Arrived to CICU on propofol and was transitioned to fentanyl ggt and midazolam ggt for adequate sedation w/ RASS goal -2. R/L knee immobilizers also placed. No evidence bleed from femoral sites at time. Weaned from sedation and successfully extubated overnight without complication. In the morning, Ms. Johnson was without complaints aside from mild pain at her right femoral access site. No chest pain or SOB. Tolerating PO intake of water without nausea/emesis. Ambulating well. Passing gas. Vitals WNL. No bleeding or tenderness at access sites. Hb stable. ECG post-procedure without LBBB. CXR post-procedure shows placed artificial valve w/o evidence pneumothorax. TTE post-procedure consistent with successfully placed artificial aortic valve. Given typical protocol for evolut FX artifical aortic valve, CT BARB was requested of CICU team to assess placement of artifical valve (would be noted but would not mold insert changer regardless of findings). This was ordered but unable to be obtained given limited CT access on the weekend and extensive emergent CTs ordered from ED. Given CT BARB was unlikely to happen on day of anticipated discharge and results would not mold insert changer, Ms. Johnson was discharged home. Cleared for discharge by structural heart team (03/20). After discharge, Ms. Johnson will START aspirin 81mg daily for her artificial aortic valve. No other medication changes. Ms. Johnson will SCHEDULE/FOLLOW-UP with cardiology Kiki (04/01) (TAVR f/u), cardiology Andra (04/22) (TAVR f/u), and her PCP (post-hospitalization f/u). Discharge Information: and Continuing Care: Lab Results - Pending: None Radiology Results - Pending: None Discharge Instructions: Activity: activity as tolerated. You are advised to go directly home from the hospital DO NOT lift anything heavier than 10 pounds for one week, this allows for proper healing of the groin No excessive exercise or treadmill use for one week. You may walk and do stairs, slowly No sexual activities for 24 hours after you arrive home Balance activity with rest, gradually increase your activity as tolerated Exercise as prescribed by your physician Nutrition/Diet: resume normal diet You may resume your normal diet. However it is better to start with liquids such as juices then soup and crackers, and gradually work up to solid food (more content not included)...[facility] Note Service: Critical Care Service: ServiceCICU History of Present Illness: Admission Reason: -s/p TAVR w/ c/f injury to catheterization sites in s/o restless leg syndrome (now sedated requiring intubation) HPI: CHIEF COMPLAINT -s/p TAVR w/ c/f injury to catheterization sites in s/o restless leg syndrome (now sedated requiring intubation) HISTORY OF PRESENT ILLNESS Ms. Virgilio Johnson is a 62 yo F w/ PMH pertinent for now s/p TAVR (03/19), restless leg syndrome, and HTN. Initially presented to [facility] (03/19) for scheduled TAVR for severe symptomatic w/ exertional dyspnea. Underwent successful TAVR w/ 29mm evolut FX. Access w/ R femoral artery s/p 2 proglide and L femoral artery (6french) s/p 1 proglide. TVP via R IJ vein (7french). Was sedated and intubated for procedure given c/f movement during procedure in s/o restless leg syndrome. After surgery, admitted to CICU for continued sedation and intubation until at least 2hours post-procedure (~6PM) to limit movement to protect femoral access sites. Arrived to CICU on propofol and was transitioned to fentanyl ggt and midazolam ggt for adequate sedation w/ RASS goal -2. R/L knee immobilizers also placed. On evidence bleed from femoral sites at this time. at bedside and updated on plan. REVIEW OF SYSTEMS 10point ROS otherwise negative except for above. PAST MEDICAL HISTORY -see HPI MEDICATIONS -per chart PAST SURGICAL HISTORY -TAVR (03/2022) -knee arthroplasty SOCIAL HISTORY -tobacco: not assessed (intubated) -alcohol: not assessed (intubated) -substance: not assessed (intubated) -barriers to healthcare: not assessed (intubated) -code status: full -surrogate decision maker: Artis Johnson () FAMILY MEDICAL HISTORY -reviewed (non-contributory) Comorbidities: Comorbidites: Comorbid Conditionshypertension Social History: Social History: Smoking Statusunable to assess (1) Allergies: Brimonidine Tartrate: Unknown Cosopt: Unknown levalbuterol: Unknown penicillin: Unknown timolol: Unknown Trusopt: Unknown Medications Prior to Admission: amLODIPine 5 mg oral tablet: 1 tab(s) orally once a day atorvastatin 10 mg oral tablet: 1 tab(s) orally once a day dicyclomine 20 mg oral tablet: 1 tab(s) orally 2 times a day gabapentin 100 mg oral capsule: 2 cap(s) orally 2 times a day losartan-hydrochlorothiazide 100 mg-25 mg oral tablet: 1 tab(s) orally once a day meloxicam 15 mg oral tablet: 1 tab(s) orally once a day rOPINIRole 0.25 mg oral tablet: 1 tab orally in the morning, 1 during the lunch time, 2 tabs in evening and 2 tabs at bedtime. tiZANidine 4 mg oral tablet: 1 tab(s) orally once a day (at bedtime) ibuprofen 200 mg oral tablet: 1 tab(s) orally 2 times a day, As Needed. Objective: Objective Information: Objective Information T PRBPMAPSpO2 [id number]% Date/Time03/19 16:009 18:009 18: 18:009 18:009 18:00 Range(35.9C - 35.9C ) (61 - 69 ) (14 - 14 ) (150 - 161 )/ (61 - 62 ) (86 - 89 ) (95% - 97% ) As of 19-Mar-2022 16:30:00, patient is on 30% oxygen via ventilator assisted. Pain reported at 03/19 16:30: 5 = Moderate Date: Weight/Scale Type: 19-Mar-2022 17:97325 kg / bed Physical Exam Narrative: Physical Exam: General: intubated, sedated, b/l knee immobilizers, R/L femoral artery access sites (s/p TAVR) cleanly dressed w/o bleeding HEENT: normocephalic Cardiac: normal rate, regular rhythm, no S3/S4, no rubs/murmurs/gallops Volume: no LE pitting edema, no JVD, mucous membranes moist Pulses: posterior tibial pulses palpable b/l Pulmonary: non-labored, breath sounds equal b/l, no crackles/wheezing/stridor, no accessory muscle usage Gastrointestinal: soft, non-tender, no masses Musculoskeletal: grossly full active ROM throughout Integumentary: skin grossly intact, no apparent lesions/wounds, no rash Neurological: cranial nerves grossly intact, extremities moving symmetrically Psychological: sedated Medications: Medications: Continuous Medications 1. fentaNYL 1000 microgram/ NaCL 0.9% 100 mL Infusion with Bolus from Ba mcg/hr IntraVenous 2. Lactated Ringers Infusion: 1000 mL IntraVenous 3. Midazolam 100 mg/ D5W 100 mL Infusion with Bolus from Ba mg/hr IntraVenous Scheduled Medications 1. Atorvastatin: 10 mg Oral At Bedtime 2. Dicyclomine: 20 mg Oral 2 Times a Day Before Meals 3. Docusate: 100 mg Oral 2 Times a Day 4. Gabapentin: 200 mg Oral 2 Times a Day 5. Pantoprazole: 40 mg Oral Daily 6. rOPINIRole (REQUIP): 0.25 mg Oral 7. rOPINIRole (REQUIP): 0.5 mg Oral 8. tiZANidine: 4 mg Oral At Bedtime 9. Vancomycin IV Piggy Back: 1000 mg IntraVenous Piggyback Once PRN Medications 1. Acetaminophen: 650 mg Oral Every 6 Hours 2. Atropine Injectable: (more content not included)...[facility] NoteDate of Procedure: March 19, 2022 Pre-operative Diagnosis: 1. Symptomatic severe aortic stenosis 2. Hypertension 3. Morbid obesity 4. Glaucoma Post-Operative Diagnosis: 1. Symptomatic severe aortic stenosis 2. Hypertension 3. Morbid obesity 4. Glaucoma Procedure: 1) Transcatheter Aortic Valve Replacement (29 mm Medtronic Evolut FX SN: [id number]) via right femoral artery 2) Percutaneous placement of balloon tipped pacing catheter (Right internal jugular vein) 3) Left heart catheterization including left ventricular end diastolic pressure 4) Percutaneous balloon aortic valvuloplasty (18 mm True Balloon) 5) Percutaneous pre-close of the right and left common femoral artery Surgeon: Mal Hargrove MD Kiln Transfer Operator: Roxann Winchester MD; Wiliam Jeffries MD; Sharon Esparza MD Indications: Mrs Johnson is an 62 year old woman who is a patient of Dr. Oswaldo Grewal; Dr. Perdomo is their brief writer, The patient presents with need for reoperative knee replacement. Her cardiovascular evaluation showed severe . They have NYHA II symptoms. An echocardiogram showed an LVEF of 60-65% NICOLE 1.0 cm2, mean AV gradient of 37 mmHg. They were referred for TAVR, were discussed at the structural heart selection committee, and found to be an candidate for transcatheter treatment. Intra-operative findings: Patient with restless leg syndrome, she was quit upset and her anxiety was uncontrollable, even with versed and fentanyl sedation. We asked the anesthesia service for help with elective, urgent intubation and anesthesia care. She was intubated, and the plan is to remain intubated for her bedrest period. Severe calcification of the aortic valve leaflets. Tri-leaflet valve. Implant height at 3mm on the non-coronary annulus and 5 mm on the left coronary annulus, there was commisural alignment Post-deployment transthoracic echocardiography showed that there was trivial paravalvular leak, and the mean gradient across the valve was 6 mHg. There was no heart block throughout the case. Co-Planar view: CAMBODIAN 15; BOAT CAMP OPERATOR 20 Cusp overlap view: DOOLEY 1; CAU 10 Procedure details: After informed consent was obtained, and all questions asked and answered to the patient's satisfaction, they were brought back to the cardiology catheterization laboratory and placed on the Cattle Farmer table. A timeout was performed with the correct patient, correct procedure, the correct laterality, timing and dosage of antibiotics, the availability of blood products, and all correct equipment was verified as being present prior to beginning the case. Ultrasound guidance was utilized to place a 7 Vietnamese locking sheath in the right internal jugular vein. This was done using a modified Seldinger technique. A balloon tipped pacing wire was then floated through to the right ventricle and locked into place. Next an 6 Fr sheath was placed in the left common femoral artery using a modified Seldinger technique. A 6 Fr pigtail was placed over a wire into the non-coronary sinus. Next attention was placed to the right femoral artery, and using fluoroscopic guidance and a micropuncture needle, the right common femoral artery was accessed using modified Seldinger technique. This was exchanged for an 8 Vietnamese sheath, and then 2 Pro-glide Perclose sutures were placed. At this point we electively, urgently intubated the patient. Next the right common femoral artery was dilated to a 14 Vietnamese size, and a 14 Vietnamese sheath was placed in the right common femoral artery under direct fluoroscopic guidance using a Supercore wire. The patient was then systemically heparinized. An 180 cm J-wire was then used to place an JR-4 catheter in the ascending aorta and a floppy tip straight wire was utilized to cross the aortic valve and JR-4 catheter was moved into the left ventricle. An 180 cm exchange length J-wire was then utilized over the through the JR-4 catheter, this was exchanged for a pigtail catheter, hemodynamics were measured. A safari wire was placed through the pigtail catheter into the left ventricle. The evolute valve was then checked to ensure that it was loaded correctly on the sheath using fluoroscopy. The Balloon was tracked over the safari wire, into the LVOT. Rapid pacing was initiated at 180 BPM, after decrement in ejection and blood pressure, the balloon was inflated and deflated rapidly. Rapid pacing was then stopped, and the balloon was removed from the body. Next the 14 Vietnamese sheath was removed from the right common femoral artery, over the safari wire, and the delivery system and valve replaced bareback into the right common femoral artery. The valve was then advanced on the delivery system through to the ascending aorta, and we verified our correct projection. The evolute valve was then advanced across the kaibab aortic valve, and slowly this was deployed as the pacemaker was set at 15 (more content not included)... [facility]2022 NoteClinical Note - Pharmacy v2: Education: Document TopicMedication Education MedicationMeds to Beds: Patient accepts Meds to Beds service at discharge, please send prescriptions to [facility]. Sources used to confirm home medication list: Patient interview Aspirin: none Statin: atorvastatin 10 mg daily P2Y12 inhibitor: none Anticoagulant: none Medication reconciliation complete Please reach out via [employer]covery for questions Narcisa Estevez, PGY-1 Logging Assistant [facility] - [facility] and Amb[facility] Is This Intervention Medication Reconciliation Relatedyes Time [id number] minutes Additional NotesDrug Name: amLODIPine 5 mg oral tablet Instructions: 1 tab(s) orally once a day Drug Name: atorvastatin 10 mg oral tablet Instructions: 1 tab(s) orally once a day Drug Name: dicyclomine 20 mg oral tablet Instructions: 1 tab(s) orally 2 times a day Drug Name: gabapentin 100 mg oral capsule Instructions: 2 cap(s) orally 2 times a day Drug Name: losartan-hydrochlorothiazide 100 mg-25 mg oral tablet Instructions: 1 tab(s) orally once a day Drug Name: meloxicam 15 mg oral tablet Instructions: 1 tab(s) orally once a day Drug Name: rOPINIRole 0.25 mg oral tablet Instructions: 1 tab orally in the morning, 1 during the lunch time, 2 tabs in evening and 2 tabs at bedtime. Drug Name: tiZANidine 4 mg oral tablet Instructions: 1 tab(s) orally once a day (at bedtime) Drug Name: ibuprofen 200 mg oral tablet Instructions: 1 tab(s) orally 2 times a day, As Needed Allergy: Allergies Summary Allergy Allergen: Brimonidine Tartrate Type: Drug Reaction: Unknown Allergen: Cosopt Type: Drug Reaction: Unknown Allergen: levalbuterol Type: Drug Reaction: Unknown Allergen: penicillin Type: Drug Reaction: Unknown Allergen: timolol Type: Drug Reaction: Unknown Allergen: Trusopt Type: Drug Reaction: Unknown Electronic Signatures: Funmi Wyman (FORMERLY [facility]) (Signed 20-Mar-2022 08:14) Co-Signer: Angelina, Allergy Narcisa Estevez ([facility]ERLY [facility]) (Signed 19-Mar-2022 16:30) Authored: Education, Allergy Last Updated: 20-Mar-2022 08:14 by Funmi Wyman (FORMERLY [facility]22 NoteHistory of Present Illness: HPI: Cardio: Dr. Perdomo Patient 62yo female referred for evaluation of aortic stenosis. Patient reports that she has a heart murmur for a long time but now she will need a knee surgery, and during the pre-procedural work up, the aortic disease was deemd to be severe. She endorses progressively worsening shortness of breath and fatigue for the 6 months (climbing stairs, walking from her door to the garage) that improves by resting, associated with leg edema. She denies orthopnea, PND, dizziness, chest pain or syncope. Prior h/o HTN, morbid obesity. Denies smoking, reports social drinking. Crea 0.96, GFR 55. NYHA: Class 2 Frailty score: 0/3 (no Hb, no albumin, mobility OK, mental OK) EKG: NSR, 1 degree AV block - Adelfo 212, QRS 94 Echo (12/17/2021): LVEF 60-65%, Gianfranco 3.54, NICOLE 1.04, Grad peak/mean 70/37, DI 0.32 LHC (02/02/2022): No CAD CT: 03/08/2022 MRI: 03/08/2022 Dental assessment: Regular appointments STS Score - AVR: Risk of mortality: 1.58% Comorbidities: Comorbidites: Comorbid Conditionshypertension Allergies: Brimonidine Tartrate: Unknown Cosopt: Unknown levalbuterol: Unknown penicillin: Unknown timolol: Unknown Trusopt: Unknown Medications Prior to Admission: Admission Medication Reconciliation has not been completed for this patient. Objective: Physical Exam by System: Constitutional: Well developed, awake/alert/oriented x3, no distress, alert and cooperative Head/Neck: Neck supple, no apparent injury, thyroid without mass or tenderness, No JVD, trachea midline, no bruits Respiratory/Thorax: Patent airways, CTAB, normal breath sounds with good chest expansion, thorax symmetric Cardiovascular: Regular, rate and rhythm, 3/6 ejection systolic murmurs, 2+ equal pulses of the extremities, normal S 1and S 2 Gastrointestinal: Nondistended, soft, non-tender, no rebound tenderness or guarding, no masses palpable, no organomegaly, +BS, no bruits Musculoskeletal: ROM intact, no joint swelling, normal strength Extremities: normal extremities, no cyanosis edema, contusions or wounds, no clubbing Neurological: alert and oriented x3, intact senses, motor, response and reflexes, normal strength Psychological: Anxious and tearful Skin: Warm and dry, no lesions, no rashes Assessment and Plan: Assessment: Proposal: The natural history of was discussed with the patient. The treatment options including SAVR vs TAVR were discussed with the patient. RBAs of the procedure discussed. All questions were answered. Given the patient's young age and comorbidities, both TAVR and surgery would be reasonable approaches if the patient is candidate. After discussion with the patient, she endorses that she wants to undergo the percutaneous procedure. Access: Good bilaterally. Both mid bifurcations. RFP, LFS. P 76 A 420 D 23 LCA 12 RCA 15 SOV / STJ 29/28 LVOT 20 CAMBODIAN 15 CRAN 12 Attestation: Note Completion: I am a: Resident/Fellow Attending AttestationI saw and evaluated the patient. I personally obtained the connor and critical portions of the history and physical exam or was physically present for connor and critical portions performed by the resident/fellow. I reviewed the resident/fellows documentation and discussed the patient with the resident/fellow. I agree with the resident/fellows medical decision making as documented in the note. I personally evaluated the patient Comments/ Additional Findings 1. Severe aortic stenosis 2. resteless leg syndrome 3. Anxiety 4. Degenerative disorder of knee Ms Johnson is here for elective TAVR. The rationale and risks have been described and she is willing to proceed. Unfortunately despite a reported well tolerated cardiac catheterization with consious sedation she was very anxious, tearful and crying during the procedures and continually kicked her legs around during and after access. It was deemed unsafe to continue with that degree of agitation despite consious sedation and elective intubation was performed with consent from her . Electronic Signatures: Sharon Martin (Fellow)) (Signed 19-Mar-2022 11:04) Authored: History of Present Illness, Comorbidities, Allergies, Medications Prior to Admission, Objective, Assessment and Plan, Note Completion Roxann Winchester) (Signed 20-Mar-2022 08:14) Authored: Objective, Assessment and Plan, Note Completion Co-Signer: History of Present Illness, Comorbidities, Allergies, Medications Prior to Admission, Objective, Assessment and Plan, Note Completion Last Updated: 20-Mar-2022 08:14 by Roxann Winchester)[facility]08-08-2022 Evaluation note* Encounter Date Diagnosis Assessment Notes Treatment Notes Treatment Clinical Notes Feb, Cough, unspecified type (ICD-10 - R05.9) Feb, COVID-19 (ICD-10 - U07.1) Today you tested positive for the COVID virus. This mean you need to follow all CDC quarantine guidelines found at coronavirus.[email or web address] ov. It is important to rest, increase fluids, and stay at home. Recommend contacting primary care provider and discussing best course of action if you have chronic health conditions. COVID POSITIVE education handout discharge instructions. given. [employer] Other 06-06-2022 Nurse Note* Aline David RN - 12/21/2021 10:48 AM EDT ORTHOPAEDIC SURGERY PRE-OP PATIENT Virgilio Johnson is a 61 year old female PROCEDURE: Revision of right Total Knee PROCEDURE DATE: 01/05/22 CHECKLIST: Informed Consent: Yes- In [facility]: No Pre-op Skin Preparation Cloths & Instructions of Use given to patient: Reviewed with pt during this phone encounter. Nasal Swab completed for patient: not treated EDUCATION: READINESS TO LEARN COGNITIVE ABILITY: Alert and oriented MOTIVATION TO LEARN: Interested FAMILY SUPPORT: Unable to assess - Family not present INSTRUCTION PROVIDED TO: Patient FACTORS AFFECTING LEARNING: None PHYSICAL LIMITATIONS AFFECTING LEARNING: None ISSUES REVIEWED: EDUCATION TOPIC/ TEACHING POINTS: -Day of Surgery (see below) -Hospital Course -Incision Care -Home PT -Home pain Medication: Refill Protocol, Side Effects -Afterhours Number Given- page ortho resident pest control supervisor at [phone] METHOD OF INSTRUCTION: Individual instruction, Written instruction - handouts and Verbal instruction PRE-OPERATIVE INSTRUCTIONS REVIEWED: -Arrival time/location -NPO after midnight -Advanced Directives -ID + insurance card -Bring to hospital: Bipap, Cpap, Non-skid shoes, hearing aids -Do not bring: Excessive money, valuables, jewelry, medications (unless instructed) -Stop NSAIDS 7 days prior to surgery -Stop Aspirin and herbal supplements 10-14 days prior -Reviewed patient handout instructions for Preop Skin Preparation POST-OPERATIVE INSTRUCTIONS: -Call office if questions/concerns -Afterhour for resident pest control supervisor INFECTION MANAGEMENT: -Signs and symptoms of an infection -Importance of contacting the physician MEDICATION SIDE EFFECTS: -Side effects associated with the medication that warrant a call to the physician WOUND CARE: -Correct procedure to perform wound care DISCHARGE PLAN: -Patient referred to rapid recovery program and [place] of Choice was offered to Patient about Rehab facility/ SNF/ Home care. SUPPLEMENTAL MATERIAL GIVEN: Yes RISK FACTORS: Hypertension and Hyperlipidemia FOLLOW-UP PLAN: Patient instructed to call with any further issues If any questions or concerns arise before the surgery, the patient was instructed to call the office for assistance. If there are no further questions or issues, the patient will be seen the day of the procedure, prior to proceeding with surgery. Patient in for Revision Right Total Knee Arthroplasty with Dr. Combs, medical consult per [facility]. Cardiac clearance needed at this time:Pt needs repeat Echo Dental clearance needed at this time?No Patient is identified by name and birthdate: Yes Allergies reviewed: Yes Medication- prescribed and OTC reviewed and updated: Yes Latex allergy: yes Does the patient have a metal allergy? No Is the patient having any pain?: Yes: Location of pain is in the right knee globally. Pain Scale: 6-7 on a scale from 0-10 Pain Character: stabbing Duration: (How long have you had the pain?) 6 months Frequency: (How often does the pain occur?) occurs constantly Pt. instructed to stop meds per [facility] and will take the following meds per anesthesia guidelines perPACC Anticoagulation therapy consisting of ASA 81 mg twice a day for 6 weeks postop, gatito hose, compression wraps, and exercise discussed with patient. Pt. has prescription drug coverage. Autologous donation discussed with patient, Pt will receive acid.. Patient lives with her and plans to go home with OP[facility]PT at [facility]. Patient has walker Yes , cane Yes , shower bench No elevated toilet seat No Patient is 248 lbs 0 oz and is Height (cm or in): 5'8 Guide to recovery, follow your pathway to recovery after joint replacement surgery materials given to patient prior to end of session. Pt. had no other questions or concerns at this time. Aline David RN [facility] Miscellaneous Notes* Telephone Encounter - Emy Bunn LPN - 12/15/2021 11:46 AM EDT Patient aware of below. Emy Bunn LPN December 15, 2021 11:47 AM * Telephone Encounter - Yudith Hobson APRN.CNP - 12/11/2021 9:40 AM EDT Reviewed patients labs she is positive for a UTI. No symptoms present. Sent atb to her preferred pharmacy. Patient is also scheduled for ECHO on 12/17 at [facility] for heart murmur. This was ordered byNP in PCP office. Will need to obtain results prior to procedure. Procedure is 01/05/22 in [facility]. Yudith Hobson APRN.CNP documented in this encounterK[facility]-06-20[facility] Evaluation note* Constitutional: Well developed, awake/alert/oriented x3, no distress, alert and cooperativeSkin: Warm and dry, no lesions, no rashesHead/Neck: Neck supple, no apparent injury, thyroid without mass ortenderness, No JVD, trachea midline, no bruitsRespiratory/Thorax: Patent airways, CTAB, normal breath sounds with good chest expansion, thorax symmetricCardiovascular: Regular, rate and rhythm, 3/6 ejection systolic murmurs, 2+ equal pulses of the extremities, normal S 1and S 2Gastrointestinal: Nondistended, soft, non- tender, no rebound tenderness or guarding, no masses palpable, no organomegaly,+BS, no bruitsMusculoskeletal: ROM intact, no joint swelling, normal strengthExtremities: normal extremities, no cyanosis edema, contusions or wounds, no clubbingNeurological: alert and oriented x3, intact senses, motor, response and reflexes, normal strengthPsychological: Anxious and tearful [facility]02-21-2022 Evaluation note* Encounter Date Diagnosis Assessment Notes Treatment Notes Treatment Clinical Notes Aug, Contact with and (suspected) exposure to other viral communicable diseases (ICD-10 - Z20.828) sb Today test was performed in office. Results are currently negative. That does not mean that you will not develop COVID or do not currently have a low viral count of COVID. The rapid test works best if symptoms have been over 72 hours and the results can vary if you are asymptomatic There is a higher chance of false negative results to occur if testing is performed too soon. It is recommended that even if results are negative and you have been exposed to someone that has COVID that you follow current CDC recommendations. These can be found at CDC.GOV. Follow up with primary care provider if symptoms persist or do not improve *VIRAL URI HANOUT GIVEN ON OTC TREATMENTS, FOLLOW UP AND WHEN TO SEEK EMERGENCY TREATMENT Aug, Other Additional time spent conducting pre-visit phone call, screening for symptoms, instructions on social distancing, application and removal of PPE, and cleaning of examination room, equipment and supplies was preformed. Patient education given for testing methodology and results. Patient care instructions given in writting by CDC Care At Home document. [facility] Other 07-19-2021 History of Present illness Narrative* Aline Stone RT(R) - 02/02/2021 9:50 AM EDT Radiology Service Progress Note PATIENT NAME: Virgilio Johnson DATE OF SERVICE: February 02, 2021 TIME: 10:01 AM PATIENT IDENTITY VERIFICATION COMPLETED USING TWO (2) IDENTIFIERS: Name and Date of confirmedby patient verbally. FALL SCREENING: Has the patient had 2 falls in the last year or 1 fall with injury or currently using an Ambulatory Assistive Device (Walker, Cane, Wheelchair, Crutches, etc.)? No PATIENT GENDER DATA: Female. status: : No status: NO. PATIENT RELEVANT IMPLANT DATA REVIEWED: Not Applicable RADIOLOGY DEPARTMENT: General X-ray: Exam(s) Completed: Lower Extremity X- Ray(s): Knee, AP / Lat / Tunne / Merchant Left and Wt. Bearing PERIPHERAL IV DATA: Not applicable SIGNED BY: RT Casandra(R) February 02, 2021 10:01 AM documented in this encounterK[facility]08-12-2020 History of Present illness Narrative* Thanh Thorne (Rt), Valentin - 02/27/2020 9:40 AM EDT Radiology Service Progress Note PATIENT NAME: Virgilio Johnson DATE OF SERVICE: February 27, 2020 TIME: 10:09 AM PATIENT IDENTITY VERIFICATION COMPLETED USING TWO (2) IDENTIFIERS: Name and Date of confirmedby patient verbally. FALL SCREENING: Has the patient had 2 falls in the last year or 1 fall with injury or currently using an Ambulatory Assistive Device (Walker, Cane, Wheelchair, Crutches, etc.)? Yes, Patient High Riskfor Falls What interventions were put in place to prevent falls during this visit? [place] Risk Wristband Applied PATIENT GENDER DATA: Female. status: : No status: NO. PATIENT RELEVANT IMPLANT DATA REVIEWED: Not Applicable RADIOLOGY DEPARTMENT: General X-ray: Exam(s) Completed: Lower Extremity X- Ray(s): Knee, AP / Lat / Merchant Left: PERIPHERAL IV DATA: Not applicable SIGNED BY: RT Miles February 27, 2020 10:09 AM documented in this encounterK[facility]-2012 History general Narrative - Reported* Type Description Date Medical History Heart Murmur Medical History Pure hypercholesterolemia Medical History Benign essential HTN Medical History restless leg syndrome Surgical History right knee ARTHROSCOPY 03/2012 Surgical History Partial RT knee replacement 2012 Hospitalization History see above hx [employer] Other Evaluation noteNo assessment information available [facility] Work Phone: Evaluation note* Diagnosis S/P right unicompartmental knee replacement- Primary Knee joint replacement by other means Primary osteoarthritis of right knee Primary localized osteoarthrosis, lower leg Pre-op testing Preoperative examination, unspecified MRSA (methicillin resistant Staphylococcus aureus) Methicillin resistant Staphylococcus aureus in conditions classified elsewhere and of unspecified site S/P right unicompartmental knee replacement Knee joint replacement by other means Primary osteoarthritis of right knee Primary localized osteoarthrosis, lower leg [facility]* Diagnosis MRSA (methicillin resistant Staphylococcus aureus)- Primary Methicillin resistant Staphylococcus aureus in conditions classified elsewhere and of unspecified site S/P right unicompartmental knee replacement Knee joint replacement by other means Failed total knee arthroplasty, sequela S/P right unicompartmental knee replacement Knee joint replacement by other means Primary osteoarthritis of right knee Primary localized osteoarthrosis, lower leg [facility]* Diagnosis Preop examination- Primary Preoperative examination, unspecified Primary hypertension Unspecified essential hypertension Mixed hyperlipidemia Irritable bowel syndrome, unspecified type Obesity, Class II, BMI 35-39.9 Obesity, unspecified Aortic valve stenosis, etiology of cardiac valve disease unspecified RLS (restless legs syndrome) Restless legs syndrome (RLS) Hypothyroidism, unspecified type S/P right unicompartmental knee replacement Knee joint replacement by other means Primary osteoarthritis of right knee Primary localized osteoarthrosis, lower leg [facility]* Diagnosis S/P revision of total knee, right- Primary Postoperative pain Other acute postoperative pain [facility]* Diagnosis S/P revision of total knee, right- Primary [facility]* Diagnosis Status post revision of total knee, right- Primary [facility]* Diagnosis S/P right unicompartmental knee replacement Knee joint replacement by other means Status post left knee replacement [facility]* Diagnosis Status post revision of total knee, right- Primary Status post left knee replacement [facility]* Diagnosis Aftercare following right knee joint replacement surgery- Primary Status post revision of total knee, right Status post left knee replacement [facility]* Diagnosis Essential hypertension, benign- Primary S/P TAVR (transcatheter aortic valve replacement) Mixed hyperlipidemia Dyspnea, unspecified type BMI 35.0-35.9,adult documented in this encounter [facility] Work Phone: Evaluation note* Diagnosis Preop examination- Primary Preoperative examination, unspecified Primary osteoarthritis of left knee Primary localized osteoarthrosis, lower leg Essential hypertension Unspecified essential hypertension Irritable bowel syndrome, unspecified type Hyperlipidemia, unspecified hyperlipidemia type Class 2 obesity with body mass index (BMI) of 36.0 to 36.9 in adult, unspecified obesity type, unspecified whether serious comorbidity present Urinary tract infection without hematuria, site unspecified Pre-op evaluation- Primary Preoperative examination, unspecified Chronic pain of right knee Mixed hyperlipidemia Primary hypertension Unspecified essential hypertension Irritable bowel syndrome, unspecified type Obesity, Class II, BMI 35-39.9 Obesity, unspecified Preop examination- Primary Preoperative examination, unspecified Primary hypertension Unspecified essential hypertension Mixed hyperlipidemia Irritable bowel syndrome, unspecified type Obesity, Class II, BMI 35-39.9 Obesity, unspecified Aortic valve stenosis, etiology of cardiac valve disease unspecified RLS (restless legs syndrome) Restless legs syndrome (RLS) Hypothyroidism, unspecified type Acute cystitis without hematuria Acute cystitis Status post revision of total knee, right Status post left knee replacement [facility]* Diagnosis Preop examination- Primary Preoperative examination, unspecified Primary osteoarthritis of left knee Primary localized osteoarthrosis, lower leg Essential hypertension Unspecified essential hypertension Irritable bowel syndrome, unspecified type Hyperlipidemia, unspecified hyperlipidemia type Class 2 obesity with body mass index (BMI) of 36.0 to 36.9 in adult, unspecified obesity type, unspecified whether serious comorbidity present Urinary tract infection without hematuria, site unspecified Pre-op evaluation- Primary Preoperative examination, unspecified Chronic pain of right knee Mixed hyperlipidemia Primary hypertension Unspecified essential hypertension Irritable bowel syndrome, unspecified type Obesity, Class II, BMI 35-39.9 Obesity, unspecified Preop examination- Primary Preoperative examination, unspecified Primary hypertension Unspecified essential hypertension Mixed hyperlipidemia Irritable bowel syndrome, unspecified type Obesity, Class II, BMI 35-39.9 Obesity, unspecified Aortic valve stenosis, etiology of cardiac valve disease unspecified RLS (restless legs syndrome) Restless legs syndrome (RLS) Hypothyroidism, unspecified type Acute cystitis without hematuria Acute cystitis Status post revision of total knee, right Status post left knee replacement documented in this encounter [facility] note* Diagnosis Preop examination- Primary Preoperative examination, unspecified Primary osteoarthritis of left knee Primary localized osteoarthrosis, lower leg Essential hypertension Unspecified essential hypertension Irritable bowel syndrome, unspecified type Hyperlipidemia, unspecified hyperlipidemia type Class 2 obesity with body mass index (BMI) of 36.0 to 36.9 in adult, unspecified obesity type, unspecified whether serious comorbidity present Urinary tract infection without hematuria, site unspecified Pre-op evaluation- Primary Preoperative examination, unspecified Chronic pain of right knee Mixed hyperlipidemia Primary hypertension Unspecified essential hypertension Irritable bowel syndrome, unspecified type Obesity, Class II, BMI 35-39.9 Obesity, unspecified Preop examination- Primary Preoperative examination, unspecified Primary hypertension Unspecified essential hypertension Mixed hyperlipidemia Irritable bowel syndrome, unspecified type Obesity, Class II, BMI 35-39.9 Obesity, unspecified Aortic valve stenosis, etiology of cardiac valve disease unspecified RLS (restless legs syndrome) Restless legs syndrome (RLS) Hypothyroidism, unspecified type Acute cystitis without hematuria Acute cystitis S/P revision of total knee, right documented in this encounter [facility] note* Diagnosis Preop examination- Primary Preoperative examination, unspecified Primary osteoarthritis of left knee Primary localized osteoarthrosis, lower leg Essential hypertension Unspecified essential hypertension Irritable bowel syndrome, unspecified type Hyperlipidemia, unspecified hyperlipidemia type Class 2 obesity with body mass index (BMI) of 36.0 to 36.9 in adult, unspecified obesity type, unspecified whether serious comorbidity present Urinary tract infection without hematuria, site unspecified Pre-op evaluation- Primary Preoperative examination, unspecified Chronic pain of right knee Mixed hyperlipidemia Primary hypertension Unspecified essential hypertension Irritable bowel syndrome, unspecified type Obesity, Class II, BMI 35-39.9 Obesity, unspecified S/P right unicompartmental knee replacement Knee joint replacement by other means Primary osteoarthritis of right knee Primary localized osteoarthrosis, lower leg Preop examination- Primary Preoperative examination, unspecified Primary hypertension Unspecified essential hypertension Mixed hyperlipidemia Irritable bowel syndrome, unspecified type Obesity, Class II, BMI 35-39.9 Obesity, unspecified Aortic valve stenosis, etiology of cardiac valve disease unspecified RLS (restless legs syndrome) Restless legs syndrome (RLS) Hypothyroidism, unspecified type Acute cystitis without hematuria Acute cystitis documented in this encounter [facility] note* Diagnosis Preop examination- Primary Preoperative examination, unspecified Primary osteoarthritis of left knee Primary localized osteoarthrosis, lower leg Essential hypertension Unspecified essential hypertension Irritable bowel syndrome, unspecified type Hyperlipidemia, unspecified hyperlipidemia type Class 2 obesity with body mass index (BMI) of 36.0 to 36.9 in adult, unspecified obesity type, unspecified whether serious comorbidity present Urinary tract infection without hematuria, site unspecified Status post left knee replacement S/P right unicompartmental knee replacement Knee joint replacement by other means Pre-op evaluation- Primary Preoperative examination, unspecified Chronic pain of right knee Mixed hyperlipidemia Primary hypertension Unspecified essential hypertension Irritable bowel syndrome, unspecified type Obesity, Class II, BMI 35-39.9 Obesity, unspecified Preop examination- Primary Preoperative examination, unspecified Primary hypertension Unspecified essential hypertension Mixed hyperlipidemia Irritable bowel syndrome, unspecified type Obesity, Class II, BMI 35-39.9 Obesity, unspecified Aortic valve stenosis, etiology of cardiac valve disease unspecified RLS (restless legs syndrome) Restless legs syndrome (RLS) Hypothyroidism, unspecified type Acute cystitis without hematuria Acute cystitis documented in this encounter [facility] note* Diagnosis Preop examination- Primary Preoperative examination, unspecified Primary osteoarthritis of left knee Primary localized osteoarthrosis, lower leg Essential hypertension Unspecified essential hypertension Irritable bowel syndrome, unspecified type Hyperlipidemia, unspecified hyperlipidemia type Class 2 obesity with body mass index (BMI) of 36.0 to 36.9 in adult, unspecified obesity type, unspecified whether serious comorbidity present Urinary tract infection without hematuria, site unspecified Pain Generalized pain Pre-op evaluation- Primary Preoperative examination, unspecified Chronic pain of right knee Mixed hyperlipidemia Primary hypertension Unspecified essential hypertension Irritable bowel syndrome, unspecified type Obesity, Class II, BMI 35-39.9 Obesity, unspecified Preop examination- Primary Preoperative examination, unspecified Primary hypertension Unspecified essential hypertension Mixed hyperlipidemia Irritable bowel syndrome, unspecified type Obesity, Class II, BMI 35-39.9 Obesity, unspecified Aortic valve stenosis, etiology of cardiac valve disease unspecified RLS (restless legs syndrome) Restless legs syndrome (RLS) Hypothyroidism, unspecified type Acute cystitis without hematuria Acute cystitis [facility]* Diagnosis Preop examination- Primary Preoperative examination, unspecified Primary osteoarthritis of left knee Primary localized osteoarthrosis, lower leg Essential hypertension Unspecified essential hypertension Irritable bowel syndrome, unspecified type Hyperlipidemia, unspecified hyperlipidemia type Class 2 obesity with body mass index (BMI) of 36.0 to 36.9 in adult, unspecified obesity type, unspecified whether serious comorbidity present Urinary tract infection without hematuria, site unspecified Status post left knee replacement S/P right unicompartmental knee replacement Knee joint replacement by other means Pre-op evaluation- Primary Preoperative examination, unspecified Chronic pain of right knee Mixed hyperlipidemia Primary hypertension Unspecified essential hypertension Irritable bowel syndrome, unspecified type Obesity, Class II, BMI 35-39.9 Obesity, unspecified Preop examination- Primary Preoperative examination, unspecified Primary hypertension Unspecified essential hypertension Mixed hyperlipidemia Irritable bowel syndrome, unspecified type Obesity, Class II, BMI 35-39.9 Obesity, unspecified Aortic valve stenosis, etiology of cardiac valve disease unspecified RLS (restless legs syndrome) Restless legs syndrome (RLS) Hypothyroidism, unspecified type Acute cystitis without hematuria Acute cystitis documented in this encounter [facility] note* Diagnosis Preop examination- Primary Preoperative examination, unspecified Primary osteoarthritis of left knee Primary localized osteoarthrosis, lower leg Essential hypertension Unspecified essential hypertension Irritable bowel syndrome, unspecified type Hyperlipidemia, unspecified hyperlipidemia type Class 2 obesity with body mass index (BMI) of 36.0 to 36.9 in adult, unspecified obesity type, unspecified whether serious comorbidity present Urinary tract infection without hematuria, site unspecified Status post left knee replacement Pre-op evaluation- Primary Preoperative examination, unspecified Chronic pain of right knee Mixed hyperlipidemia Primary hypertension Unspecified essential hypertension Irritable bowel syndrome, unspecified type Obesity, Class II, BMI 35-39.9 Obesity, unspecified Preop examination- Primary Preoperative examination, unspecified Primary hypertension Unspecified essential hypertension Mixed hyperlipidemia Irritable bowel syndrome, unspecified type Obesity, Class II, BMI 35-39.9 Obesity, unspecified Aortic valve stenosis, etiology of cardiac valve disease unspecified RLS (restless legs syndrome) Restless legs syndrome (RLS) Hypothyroidism, unspecified type Acute cystitis without hematuria Acute [facility]stitis [facility] Diagnosis Irritable bowel syndrome, unspecified type documented in this encounter [facility]* Diagnosis Neoplasm of uncertain behavior of skin- Primary Verruca plantaris Plantar wart Right foot pain Pain in soft tissues of limb 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 Benign neoplasm of unknown origin documented in this encounter [facility]* Diagnosis Cellulitis of foot, right- Primary Abscess of right foot Cellulitis and abscess of foot, except toes Right foot pain Pain in soft tissues of limb documented in this encounter [facility]* Diagnosis Cellulitis of foot, right- Primary Chronic foot ulcer, right, with fat layer exposed (CMS/HCC) Venous insufficiency (chronic) (peripheral) Unspecified venous (peripheral) insufficiency documented in this encounter [facility]* Diagnosis Neoplasm of uncertain behavior of skin- Primary Venous insufficiency (chronic) (peripheral) Unspecified venous (peripheral) insufficiency Chronic foot ulcer, right, with fat layer exposed (CMS/HCC) Cellulitis of foot, right documented in this encounter [facility]* Diagnosis Neoplasm of uncertain behavior of skin- Primary 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 documented in this encounter [facility]* Diagnosis Mixed hyperlipidemia- Primary Essential hypertension, benign BMI 35.0-35.9,adult Dyspnea, unspecified type S/P TAVR (transcatheter aortic valve replacement) Never smoked tobacco documented in this encounter [facility] Work Phone: Evaluation note* Diagnosis Restless legs syndrome Restless legs syndrome (RLS) documented in this encounter [facility]* Diagnosis Carpal tunnel syndrome, bilateral- Primary Carpal tunnel syndrome RLS (restless legs syndrome) Restless legs syndrome (RLS) documented in this encounter [facility]* Diagnosis Adult general medical examination- Primary Unspecified general medical examination Atherosclerosis of aorta ([facility]/HCC) Atherosclerosis of aorta Type 2 diabetes mellitus without complication, unspecified whether oil heaterman insulin use ([facility]) Immunization due Primary hypertension ([facility]) Unspecified essential hypertension Anemia, unspecified type Hypomagnesemia Disorders of magnesium metabolism documented in this encounter [facility]* Diagnosis RLS (restless legs syndrome) Restless legs syndrome (RLS) Carpal tunnel syndrome, bilateral Carpal tunnel syndrome documented in this encounter [facility]* Diagnosis Type 2 diabetes mellitus with foot ulcer (CODE) ([facility])- Primary Non-pressure chronic ulcer of other part of right foot with fat layer exposed ([facility]) Type 2 diabetes mellitus with diabetic chronic kidney disease ([facility]) Chronic kidney disease, stage 3a (HCC) ([facility]) Type 2 diabetes mellitus with diabetic cataract ([facility]) Type II or unspecified type diabetes mellitus with ophthalmic manifestations, not stated as uncontrolled Carpal tunnel syndrome, bilateral Carpal tunnel syndrome Irritable bowel syndrome, unspecified type Restless legs syndrome Restless legs syndrome (RLS) Hypothyroidism (acquired) ([facility]) Unspecified hypothyroidism Primary hypertension ([facility]) Unspecified essential hypertension Hypertriglyceridemia ([facility]) Pure hyperglyceridemia Type 2 diabetes mellitus with diabetic cataract, without long-term current use of insulin ([facility]) [E11.36] documented in this encounter [facility]* Diagnosis Acute left-sided low back pain with left-sided sciatica- Primary documented in this [facility]* Diagnosis Restless legs syndrome Restless legs syndrome (RLS) documented in this [facility]* Diagnosis Acute left-sided low back pain with left-sided sciatica documented in this encounter [facility]* Diagnosis Irritable bowel syndrome, unspecified type documented in this encounter [facility]* Diagnosis Acute left-sided low back pain with left-sided sciatica RLS (restless legs syndrome) Restless legs syndrome (RLS) Carpal tunnel syndrome, bilateral Carpal tunnel syndrome documented [facility]* Patient is here for vascular evaluation for preoperative risk assessment and aortic stenosis. Patient is 63-year-old white female with known history of cardiac murmur who recently was seen by her family physician and being evaluated for suitability to proceed with surgery. She was observed to have a loud aortic murmur and an echocardiogram was done this raised concern about severe aortic stenosisbased on peak gradient of 70 mmHg however it appears that the aortic valve area was not accurately measured and was around 1.2 sonometer. Patient reports limited exercise tolerance and dyspnea on exertion mainly due to combination of being overweight and degenerative joint disease but she definitely describes symptoms of shortness of breath. She denies chest pain she denies lightheadedness, dizziness or syncope. Her echocardiogram noted and reviewed. * Assessment * 1. Recent echocardiogram suggestive of severe aortic stenosis. Patient appears to describe mild shortness of breath unclear whether it is related to sedentary lifestyle and obesity versus aortic stenosis * 2. Patient requesting preoperative risk assessment for knee surgery * 3. Hypertension * 4. Obesity * 5. Degenerative joint disease of the knee * Plan * 1. I discussed with the patient the results of recent echo and I told her there is concern about severe aortic stenosis. With symptoms of shortness of breath is difficult to determine whether it is safe to proceed with knee surgery without further cardiac work-up. I recommend proceeding transesophag eal echocardiogram if this confirms severe aortic stenosis then cardiac catheterization was performed and she was needed aortic valve replacement prior to that. 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 I encouraged her to see her dentist to be sure no dental issue that may interfere with her aortic valve replacement * 3. I encouraged her to lose weight, exercise and diet and improved address her risk factor aggressively * 4. Follow-up after testing is done [facility] [employer] DO Work Phone: History of Present illness Narrative* Cardio: Dr. Perdomo * Patient 62yo female referred for evaluation of aortic stenosis. Patient reports that she has a heart murmur for a long time but now she will need a knee surgery, and during the pre-procedural work up, the aortic disease was deemd to be severe. She endorses progressively worsening shortness of breath and fatigue for the 6 months (climbing stairs, walking from her door to the garage) that improves by resting, associated with leg edema. She denies orthopnea, PND, dizziness, chest pain or syncope. Prior h/o HTN, morbid obesity. Denies smoking, reports social drinking. Crea 0.96, GFR 55. * NYHA: Class 2 * Frailty score: 0/3 (no Hb, no albumin, mobility OK, mental OK) * EKG: NSR, 1 degree AV block - Adelfo 212, QRS 94 * Echo (12/17/2021): LVEF 60-65%, Gianfranco 3.54, NICOLE 1.04, Grad peak/mean 70/37, DI 0.32 * [facility] (02/02/2022): No CAD * CT: 03/08/2022 * MRI: 03/08/2022 * Dental assessment: Regular appointments * STS Score - AVR: Risk of mortality: 1.58% [id number] Hong Carmen [address] [place] Work Phone: History of Present illness Narrative* Cardio: Dr. Perdomo * Patient 62yo female referred for evaluation of aortic stenosis. Patient reports that she has a heart murmur for a long time but now she will need a knee surgery, and during the pre-procedural work up, the aortic disease was deemd to be severe. She endorses progressively worsening shortness of breath and fatigue for the 6 months (climbing stairs, walking from her door to the garage) that improves by resting, associated with leg edema. She denies orthopnea, PND, dizziness, chest pain or syncope. Prior h/o HTN, morbid obesity. Denies smoking, reports social drinking. Crea 0.96, GFR 55. * NYHA: Class 2 * Frailty score: 0/3 (no Hb, no albumin, mobility OK, mental OK) * EKG: NSR, 1 degree AV block - Adelfo 212, QRS 94 * Echo (12/17/2021): LVEF 60-65%, Gianfranco 3.54, NICOLE 1.04, Grad peak/mean 70/37, DI 0.32 * [facility] (02/02/2022): No CAD * CT: 03/08/2022 * MRI: 03/08/2022 * Dental assessment: Regular appointments * STS Score - AVR: Risk of mortality: 1.58% [facility] [facility] [address] [place] Work Phone: History of Present illness Narrative* Cardio: Dr. Perdomo * Patient 62yo female referred for evaluation of aortic stenosis. Patient reports that she has a heart murmur for a long time but now she will need a knee surgery, and during the pre-procedural work up, the aortic disease was deemd to be severe. She endorses progressively worsening shortness of breath and fatigue for the 6 months (climbing stairs, walking from her door to the garage) that improves by resting, associated with leg edema. She denies orthopnea, PND, dizziness, chest pain or syncope. Prior h/o HTN, morbid obesity. Denies smoking, reports social drinking. Crea 0.96, GFR 55. * NYHA: Class 2 * Frailty score: 0/3 (no Hb, no albumin, mobility OK, mental OK) * EKG: NSR, 1 degree AV block - Adelfo 212, QRS 94 * Echo (12/17/2021): LVEF 60-65%, Gianfranco 3.54, NICOLE 1.04, Grad peak/mean 70/37, DI 0.32 * [facility] (02/02/2022): No CAD * CT: 03/08/2022 * MRI: 03/08/2022 * Dental assessment: Regular appointments * STS Score - AVR: Risk of mortality: 1.58% [id number] Hong Kermit [address] [place] Work Phone: History of Present illness Narrative* Patient is here for follow-up continue management for recent evaluation for severe aortic stenosis.She was referred for TAVR which was performed. Apparently she had some issue with sedation requiring the procedure to be done under general anesthesia because of restless leg syndrome. Her procedure done without any complication. I was able to review and discussed with her all her recent diagnostictesting including cardiac catheterization and echo etc. Patient is doing well. She denies any complaint. She requesting to extend hallux stay off work for 2 more weeks. She also entertaining the ideaof proceeding with knee surgery. * Assessment * 1. Aortic stenosis status post recent successful TAVR done without any complication * 2. Patient requesting preoperative risk assessment for knee surgery. I advised that she can proceedwith surgery after new year in 3 months * 3. Hypertension suboptimally controlled * 4. Obesity * 5. I advised the patient to delay her dental work for 2 months * 6. I discussed with her endocarditis prophylaxis at great length * Plan * 1. Patient was given an note to extend her stay off work for a total of 4 weeks from the time of her procedure * 2. Patient was advised to delay her dental work for 2 months and I advised that she can proceed with her knee surgery after new year * 3. I encouraged her to lose weight, exercise and diet and improved address her risk factor aggressively * 4. Endocarditis prophylaxis * 5. Advised her to switch her losartan to valsartan 160 mg daily and if blood pressure remains elevated to notify me * 6. Follow-up in 6-month [facility] [facility] Work Phone: history of Present illness Narrative* The patient is NYHA functional Class II. * Symptoms: stable lower extremity edema, improved dyspnea on exertion, stable fatigue, stable exercise intolerance, denies orthopnea and denies paroxysmal nocturnal dyspnea. Associated symptoms include no chest pain, no syncope and no palpitations. * Home Monitoring: The patient checks her weight regularly. Weight control has been good. * Medications: the patient is adherent with her medication regimen. the patient complains of medication side effects. * Disease Management: the patient is doing well with her heart failure goals. Due For: an echocardiogram. [facility] Work Phone: Hiscswr of Present illness Narrative* Patient here for follow-up and management for aortic valve disease status post recent TAVR, hypertension, obesity./Dermatology denies cardiac complaint. She reports he underwent knee surgery without any issues. Blood pressure seems to be elevated. She denies lightheadedness, dizziness or syncope. * Assessment * 1. Aortic stenosis status post TAVR done without any complication * 2. Hypertension suboptimally controlled * 3. Hyperlipidemia * 4. Obesity * 5.. I discussed with her endocarditis prophylaxis at great length * Plan * 1. I advised patient to increase her amlodipine to 10 mg daily. She is to continue this medication and increase her losartan to 20 * 2. I advised Conor her treatment BMP and a previous * 3. I encouraged her to lose weight, exercise and diet and improved address her risk factor aggressively * 4. Endocarditis prophylaxis * 5. Return back in 9 months [facility] [employer] DO Work Phone: History of Present illness Narrative* Patient is here for follow-up continue management for hypertension. Recently several adjustment were made for her medication including increasing amlodipine and valsartan. Despite this the blood pressure remains elevated. Patient is asymptomatic. * Assessment * 1. Uncontrolled hypertension * Plan * We will start chlorthalidone 25 mg once daily and do a blood pressure check and a BMP in 6 weeks [facility] [address] DO Work Phone: History of Present illness Narrative* The patient is NYHA functional Class I. * Symptoms: denies lower extremity edema, stable dyspnea on exertion, stable fatigue, stable exerciseintolerance, denies orthopnea and denies paroxysmal nocturnal dyspnea. Associated symptoms include no chest pain, no syncope, no palpitations, no recent weight gain and no recent weight loss. * Medications: the patient is adherent with her medication regimen. She denies medication side effects. * Disease Management: the patient is doing well with her heart failure goals. Due For: an echocardiogram. [id number] Work Phone: Hospital Discharge instructions* Activity:activity as tolerated. * Additional Orders:Additional Instructions: Ms. Johnson, you came to the hospital for your scheduled aortic valve replacement. For your procedure, your surgery team sedated you to help your restless leg syndrome during your procedure. We kept you sedated until it was safe to have you move your legs ag ain. Since your procedure, you have met all post-procedure goals.It was a pleasure taking care of you!Please START:-aspirin to keep your artifical mitral valve healthy and protect against blood clotsthat can cause strokePlease SCHEDULE/FOLLOW-UP: -cardiology for your artificial mitral valve- PCP for your recent hospitalizationPlease weigh yourself daily and keep recordPlease take blood pressure 2times (at least 60 min AFTER you take your meds) a day and recordBring these to follow up Valve procedure follow-up appointments.A lab requisition has been provided for you to draw a CBC, BMP, and PT/INR. Please take this rec to your local lab to have your labs drawn between 4-7 days post discharge. You will have 2 appointments that are vital to your post procedure care, these will be scheduled for you IF YOU NEED TO CHANGE YOUR APPOINTMENT TIME/DATE, PLEASE CALL Please follow up with your PCP within 7-14 days of dischargeYou will follow up with your primary brief writer in 6-10 weeksYou have been given the order requisition for the 1 month ECHO at the time of your discharge.Please call and schedule this ECHO at your LOCAL center (no sooner than 23 days after your procedure date).No elective dental procedures or cleanings for 3 months post procedureYou will need dental prophylaxis (oral antibiotic) prior to dental work/cleanings for life. * Call Provider If:Breathing faster than normal. Breathing harder than normal or having retractions. Fever of 100.4 F (38 C) or higher. Chills. Drinking less than normal. Urinating less than normal, over 1 day. Acting very sleepy and difficult to awaken. Vomiting (throwing up) and not able to eat or drink for 12 hours. 3 or more loose, watery bowel movements in 24 hours (diarrhea). Any new concerning symptoms. * Patient Instructions, Next 24 hours:DO NOT drink any alcoholic drinks or take any non-prescriptive medications that contain alcohol for the first 24 hours. DO NOT make any important decisions for thefirst 24 hours. * Activity:You are advised to go directly home from the hospital. DO NOT lift anything heavier than 10 pounds for one week, this allows for proper healing of the groin. No excessive exercise or treadmill use for one week. You may walk and do stairs, slowly. No sexual activities for 24 hours after youarrive home. * Wound Care:If slight bleeding should occur at site, lie down and have someone apply firm pressure just above the puncture site for 5 minutes. If it continues or is profuse, call 911. Always notify your doctor if bleeding occurs. Keep site clean and dry. Let air dry or you may use a simple bandaid. Gently cleanse the puncture site in your groin with soap and water only. You may experience some tenderness, bruising or minimal inflammation. If you have any concerns, you may contact the [employer] orif any of these symptoms become excessive, contact your brief writer or go to the emergency room. No tub baths, soaking, or swimming for one week. May shower the next day after your procedure. * Other Instructions:If you develop diffficulty breathing, rash, hives, severe nausea, vomiting, light-headedness or any signs of infection, immediately contact your doctor and go to the nearest emergency room. * Patient Instructions:- CALL 911 IF YOU HAVE ANY OF THE SIGNS AND SYMPTOMS OF HEART FAILURE: 1. Chest pain 2. Significant Shortness of breath 3. Fainting. - Notify your physician immediately if you have shortness of breath; weight gain of 3 lbs. or more; fatigue and loss of energy; swelling of lower extremities or abdomen; dizziness or fainting; change of appetite; and frequent coughing. - Patientreceived Living With Heart Failure book. - Daily weight on the same scale, same time after voiding and before eating. - Maintain daily weight log. * Activity (Heart Failure):- Balance activity with rest, gradually increase your activity as tolerated. - Exercise as prescribed by your physician. 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 Please call and schedule this ECHO at your LOCAL center (no sooner than 23 days after your procedure date). * Follow Up Appointment 3:Physician/Dept/Service: 1 year Structural Heart INDUSTRIAL CHEMISTRY TEACHER follow-upScheduled Date/Time: 17-Mar-2023 09:00Location: [facility] ( [employer] ) (if you need to change the appointment) [facility] - Pending Review Specialty Diagnoses / Procedures Referred By Contac t Referred To Contact Physical Therapy Diagnoses S/P right unicompartmental knee replacement Primary osteoarthritis of right knee Procedures CONSULT TO PHYSICAL THERAPY Violet Combs MD [address] [place] [address] Referral ID Status Reason Start Date Expiration Date V isits Requested Visits Authorized [id number] Pending Review 06/01/2022 08/30/2022 1 1 * Diagnostic Procedure Only (Routine) - Closed Specialty Diagnoses / Procedures Referred By Contac t Referred To Contact XR IMAGING Diagnoses S/P right unicompartmental knee replacement Primary osteoarthritis of right knee Procedures XR KNEE GENERAL 4V AP BOTH/PA BOTH/LAT/MERC BILATERAL RADIOLOGIC EXAM KNEE COMPLETE 4/MORE VIEWS Violet Combs MD [address] [place] [address] Xr Imaging Referral ID Status Reason Start Date Expiration Date V isits Requested Visits Authorized [id number] Closed Auto-Generate d Referral 05/26/2022 06/25/2023 1 1 [facility] for referral (narrative)* Diagnostic Procedure Only (Routine) - Closed Specialty Diagnoses / Procedures Referred By Contac t Referred To Contact XR IMAGING Diagnoses S/P revision of total knee, right Procedures XR KNEE POST OP 3V AP/LAT/MERCHANT RIGHT RADIOLOGIC EXAMINATION KNEE 3 VIEWS Lucas Levy PA-C [address] [place] [address] Xr Imaging Referral ID Status Reason Start Date Expiration Date V isits Requested Visits Authorized [id number] Closed Auto-Generate d Referral 09/06/2022 10/06/2023 1 1 [facility] for referral (narrative)* Diagnostic Procedure Only (Routine) - Closed Specialty Diagnoses / Procedures Referred By Contac t Referred To Contact XR IMAGING Diagnoses Status post revision of total knee, right Status post left knee replacement Procedures XR KNEE POST OP 3V AP/LAT/MERCHANT BILATERAL RADIOLOGIC EXAMINATION KNEE 3 VIEWS Violet Combs MD [address] [place] [address] [place] [address] Referral ID Status Reason Start Date Expiration Date V isits Requested Visits Authorized [id number] Closed Auto-Generate d Referral 02/25/2023 03/26/2024 1 1 [facility] for referral (narrative)* Consultation (Routine) - Authorized Specialty Diagnoses / Procedures Referred By Contac t Referred To Contact Cardiology Diagnoses Essential hypertension, benign Procedures Follow Up In Cardiology Josep Perdomo MD [address] [facility] [address] [place] [address] Josep Perdomo MD [address] [facility] [address] [place] [address] Referral ID Status Reason Start Date Expiration Date V isits Requested Visits Authorized [id number] Authorized 09/09/2023 09/08/2024 1 1 [facility] Work Phone: [facility] for referral (narrative)* Diagnostic Procedure Only (Routine) - Closed Specialty Diagnoses / Procedures Referred By Contac t Referred To Contact XR IMAGING Diagnoses Status post revision of total knee, right Status post left knee replacement Procedures XR KNEE POST OP 3V AP/LAT/MERCHANT BILATERAL RADIOLOGIC EXAMINATION KNEE 3 VIEWS Lucas Levy PA-C [address] [place] [address] [place] [address] Referral ID Status Reason Start Date Expiration Date V isits Requested Visits Authorized [id number] Closed Auto-Generate d Referral 07/27/2023 08/25/2024 1 1 [facility] for referral (narrative)* Diagnostic Procedure Only (Routine) - Closed Specialty Diagnoses / Procedures Referred By Contac t Referred To Contact XR IMAGING Diagnoses Status post revision of total knee, right Status post left knee replacement Procedures XR KNEE POST OP 3V AP/LAT/MERCHANT BILATERAL RADIOLOGIC EXAMINATION KNEE 3 VIEWS Violet Combs MD [address] [place] [address] [place] [address] Referral ID Status Reason Start Date Expiration Date V isits Requested Visits Authorized [id number] Closed Auto-Generate d Referral 02/25/2023 03/26/2024 1 1 [facility] for referral (narrative)* Diagnostic Procedure Only (Routine) - Closed Specialty Diagnoses / Procedures Referred By Contac t Referred To Contact XR IMAGING Diagnoses S/P revision of total knee, right Procedures XR KNEE POST OP 3V AP/LAT/MERCHANT RIGHT RADIOLOGIC EXAMINATION KNEE 3 VIEWS Lucas Levy PA-C [address] [place] [address] [place] [address] Referral ID Status Reason Start Date Expiration Date V isits Requested Visits Authorized [id number] Closed Auto-Generate d Referral 09/06/2022 10/06/2023 1 1 [facility] for referral (narrative)* Diagnostic Procedure Only (Routine) - Closed Specialty Diagnoses / Procedures Referred By Contac t Referred To Contact XR IMAGING Diagnoses S/P right unicompartmental knee replacement Primary osteoarthritis of right knee Procedures XR KNEE GENERAL 4V AP BOTH/PA BOTH/LAT/MERC BILATERAL RADIOLOGIC EXAM KNEE COMPLETE 4/MORE VIEWS Violet Combs MD [address] [place] [address] [place] [address] Referral ID Status Reason Start Date Expiration Date V isits Requested Visits Authorized [id number] Closed Auto-Generate d Referral 05/26/2022 06/25/2023 1 1 [facility] for referral (narrative)* Diagnostic Procedure Only (Routine) - Closed Specialty Diagnoses / Procedures Referred By Contac t Referred To Contact XR IMAGING Diagnoses Status post left knee replacement S/P right unicompartmental knee replacement Procedures XR KNEE POST OP 3V AP/LAT/MERCHANT BILATERAL X-RAY KNEE 3+ VW Lucas Levy PA-C [address] [place] [address] [place] [address] Referral ID Status Reason Start Date Expiration Date V isits Requested Visits Authorized [id number] Closed Auto-Generate d Referral 08/02/2021 09/01/2022 1 1 [facility] for referral (narrative)* Diagnostic Procedure Only (Routine) - Closed Specialty Diagnoses / Procedures Referred By Contac t Referred To Contact XR IMAGING Diagnoses Status post left knee replacement S/P right unicompartmental knee replacement Procedures XR KNEE POST OP 3V AP/LAT/MERCHANT BILAT X-RAY KNEE 3+ VW Lucas Levy PA-C [address] [place] [address] [place] [address] Referral ID Status Reason Start Date Expiration Date V isits Requested Visits Authorized Closed Auto-Generate d Referral 03/26/2021 04/25/2022 1 1 [facility] for visit Narrative* Diagnostic Procedure Only (Routine) - Closed Specialty Diagnoses / Procedures Referred By Contac t Referred To Contact XR IMAGING Diagnoses Status post revision of total knee, right Status post left knee replacement Procedures XR KNEE POST OP 3V AP/LAT/MERCHANT BILATERAL RADIOLOGIC EXAMINATION KNEE 3 VIEWS Lucas Levy PA-C [address] [place] [address] [place] [address] Referral ID Status Reason Start Date Expiration Date V isits Requested Visits Authorized [id number] Closed Auto-Generate d Referral 07/27/2023 08/25/2024 1 1 [facility] for visit Narrative* Diagnostic Procedure Only (Routine) - Closed Specialty Diagnoses / Procedures Referred By Contac t Referred To Contact XR IMAGING Diagnoses Status post revision of total knee, right Status post left knee replacement Procedures XR KNEE POST OP 3V AP/LAT/MERCHANT BILATERAL RADIOLOGIC EXAMINATION KNEE 3 VIEWS Violet Combs MD [address] [place] [address] [place] [address] Referral ID Status Reason Start Date Expiration Date V isits Requested Visits Authorized [id number] Closed Auto-Generate d Referral 02/25/2023 03/26/2024 1 1 [facility] for visit Narrative* Diagnostic Procedure Only (Routine) - Closed Specialty Diagnoses / Procedures Referred By Contac t Referred To Contact XR IMAGING Diagnoses S/P revision of total knee, right Procedures XR KNEE POST OP 3V AP/LAT/MERCHANT RIGHT RADIOLOGIC EXAMINATION KNEE 3 VIEWS Lucas Levy PA-C [address] [place] [address] [place] [address] Referral ID Status Reason Start Date Expiration Date V isits Requested Visits Authorized [id number] Closed Auto-Generate d Referral 09/06/2022 10/06/2023 1 1 [facility] for visit Narrative* Diagnostic Procedure Only (Routine) - Closed Specialty Diagnoses / Procedures Referred By Contac t Referred To Contact XR IMAGING Diagnoses S/P right unicompartmental knee replacement Pain due to unicompartmental arthroplasty of knee, subsequent encounter Procedures XR KNEE POST OP 3V AP/LAT/MERCHANT RIGHT RADIOLOGIC EXAMINATION KNEE 3 VIEWS Violet Combs MD [address] [place] [address] [place] [address] Referral ID Status Reason Start Date Expiration Date V isits Requested Visits Authorized [id number] Closed Auto-Generate d Referral 12/09/2021 07/17/2022 1 1 [facility] for visit Narrative* Diagnostic Procedure Only (Routine) - Closed Specialty Diagnoses / Procedures Referred By Contac t Referred To Contact XR IMAGING Diagnoses Status post left knee replacement S/P right unicompartmental knee replacement Procedures XR KNEE POST OP 3V AP/LAT/MERCHANT BILAT X-RAY KNEE 3+ VW Lucas Levy PA-C [address] [place] [address] [place] [address] Referral ID Status Reason Start Date Expiration Date V isits Requested Visits Authorized [id number] Closed Auto-Generate d Referral 03/26/2021 04/25/2022 1 1 [facility] for visit Narrative* Diagnostic Procedure Only (Routine) - Closed Specialty Diagnoses / Procedures Referred By Dany manrique Referred To Contact Radiology / RADIO [facility] Diagnoses xray Procedures XR [facility] Violet Monterroso MD [address] [place] [address] [facility] [place] [address] [place] [address] Referral ID Status Reason Start Date Expiration Date Visits Re quested Visits Authorized [id number] Closed 02/27/2020 03/17/2020 1 1 [facility] Advance Directives No Advanced Directives Records FoundDocuments on File Type Date Recorded Patient Law Secretary Expl anation Advance Directive(s) 02/04/2020 11:42 AM Advance Directive Response Recorded Date/ Time Advance Directives No December 09 2 1:18pm Advance Directive Response Recorded Date/ Time Advance Directives No December 09 2 12:18pm Chief Complaint VIRGLIIO JOHNSON is being seen for follow-up of a hospitalization for abnormal test(s) results.DAMON cath results.VIRGILIO JOHNSON is being seen for a 6 month follow-up of.VIRGILIO JOHNSON is being seen for hypertension. Family History No Family History Records FoundUnknown Family Member Name Dates Details Family history of glaucoma: Mother, Father(V19.11, Z83.511) Status:Active Family history of congestive heart failure: Mother(V17.49, Z82.49) Status:Active Family history of heart murm ur: Sister(V17.49, Z82.49) Status:Active Family history of cerebrovas cular accident (CVA): Father(V17.1, Z82.3) Status:Active Unknown Family Member Name Dates Details Family history of glaucoma: Mother, Father(V19.11, Z83.511) Status:Active Family history of congestive heart failure: Mother(V17.49, Z82.49) Status:Active Family history of heart murm ur: Sister(V17.49, Z82.49) Status:Active Family history of cerebrovas cular accident (CVA): Father(V17.1, Z82.3) Status:Active Unknown Family Member Name Dates Details Family history of glaucoma: Mother, Father(V19.11, Z83.511) Status:Active Family history of congestive heart failure: Mother(V17.49, Z82.49) Status:Active Family history of heart murm ur: Sister(V17.49, Z82.49) Status:Active Family history of cerebrovas cular accident (CVA): Father(V17.1, Z82.3) Status:Active Unknown Family Member Name Dates Details Family history of glaucoma: Mother, Father(V19.11, Z83.511) Status:Active Family history of congestive heart failure: Mother(V17.49, Z82.49) Status:Active Family history of heart murm ur: Sister(V17.49, Z82.49) Status:Active Family history of cerebrovas cular accident (CVA): Father(V17.1, Z82.3) Status:Active Unknown Family Member Name Dates Details Family history of glaucoma: Mother, Father(V19.11, Z83.511) Status:Active Family history of congestive heart failure: Mother(V17.49, Z82.49) Status:Active Family history of heart murm ur: Sister(V17.49, Z82.49) Status:Active Family history of cerebrovas cular accident (CVA): Father(V17.1, Z82.3) Status:Active Unknown Family Member Name Dates Details Family history of glaucoma: Mother, Father(V19.11, Z83.511) Status:Active Family history of congestive heart failure: Mother(V17.49, Z82.49) Status:Active Family history of heart murm ur: Sister(V17.49, Z82.49) Status:Active Family history of cerebrovas cular accident (CVA): Father(V17.1, Z82.3) Status:Active Unknown Family Member Name Dates Details Family history of glaucoma: Mother, Father(V19.11, Z83.511) Status:Active Family history of congestive heart failure: Mother(V17.49, Z82.49) Status:Active Family history of heart murm ur: Sister(V17.49, Z82.49) Status:Active Family history of cerebrovas cular accident (CVA): Father(V17.1, Z82.3) Status:Active Unknown Family Member Name Dates Details Family history of glaucoma: Mother, Father(V19.11, Z83.511) Status:Active Family history of congestive heart failure: Mother(V17.49, Z82.49) Status:Active Family history of heart murm ur: Sister(V17.49, Z82.49) Status:Active Family history of cerebrovas cular accident (CVA): Father(V17.1, Z82.3) Status:Active Unknown Family Member Name Dates Details Family history of glaucoma: Mother, Father(V19.11, Z83.511) Status:Active Family history of congestive heart failure: Mother(V17.49, Z82.49) Status:Active Family history of heart murm ur: Sister(V17.49, Z82.49) Status:Active Family history of cerebrovas cular accident (CVA): Father(V17.1, Z82.3) Status:Active Relationship Condition Age at Onset Recorded Date/T ld Not Specified Hypertension Unknown Unknown Congestive heart failure Unknown father Hypertension Unknown Legal blindness Unknown Unknown Family Member Name Dates Details Family history of glaucoma: Mother, Father(V19.11, Z83.511) Status:Active Family history of congestive heart failure: Mother(V17.49, Z82.49) Status:Active Family history of heart murm ur: Sister(V17.49, Z82.49) Status:Active Family history of cerebrovas cular accident (CVA): Father(V17.1, Z82.3) Status:Active Unknown Family Member Name Dates Details Family history of glaucoma: Mother, Father(V19.11, Z83.511) Status:Active Family history of congestive heart failure: Mother(V17.49, Z82.49) Status:Active Family history of heart murm ur: Sister(V17.49, Z82.49) Status:Active Family history of cerebrovas cular accident (CVA): Father(V17.1, Z82.3) Status:Active Relationship Condition Age at Onset Recorded Date/T ld Not Specified Congestive heart failure Unknown Unknown Hypertension Unknown father Legal blindness Unknown Heart valve disease Unknown sister Disorder of thyroid Unknown Unknown Family Member Name Dates Details Family history of glaucoma: Mother, Father(V19.11, Z83.511) Status:Active Family history of congestive heart failure: Mother(V17.49, Z82.49) Status:Active Family history of heart murm ur: Sister(V17.49, Z82.49) Status:Active Family history of cerebrovas cular accident (CVA): Father(V17.1, Z82.3) Status:Active Unknown Family Member Name Dates Details Family history of glaucoma: Mother, Father(V19.11, Z83.511) Status:Active Family history of congestive heart failure: Mother(V17.49, Z82.49) Status:Active Family history of heart murm ur: Sister(V17.49, Z82.49) Status:Active Family history of cerebrovas cular accident (CVA): Father(V17.1, Z82.3) Status:Active Unknown Family Member Name Dates Details Family history of glaucoma: Mother, Father(V19.11, Z83.511) Status:Active Family history of cerebrovas cular accident (CVA): Father(V17.1, Z82.3) Status:Active Family history of heart murm ur: Sister(V17.49, Z82.49) Status:Active Family history of congestive heart failure: Mother(V17.49, Z82.49) Status:Active Unknown Family Member Name Dates Details Family history of glaucoma: Mother, Father(V19.11, Z83.511) Status:Active Family history of congestive heart failure: Mother(V17.49, Z82.49) Status:Active Family history of heart murm ur: Sister(V17.49, Z82.49) Status:Active Family history of cerebrovas cular accident (CVA): Father(V17.1, Z82.3) Status:Active Unknown Family Member Name Dates Details Family history of glaucoma: Mother, Father(V19.11, Z83.511) Status:Active Family history of congestive heart failure: Mother(V17.49, Z82.49) Status:Active Family history of heart murm ur: Sister(V17.49, Z82.49) Status:Active Family history of cerebrovas cular accident (CVA): Father(V17.1, Z82.3) Status:Active Chief Complaint and Reason for Visit Chief Complaint Aortic Stenosis Aortic Stenosis i35.0 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 Substernal Goiter Substernal Goiter labs Chief 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 Chief Complaint labs LABS E89.0 Summary Purpose Reason for Referral Specialty Diagnoses / Procedures Referred By Contac t Referred To Contact Cardiology Diagnoses Essential hypertension, benign S/P TAVR (transcatheter aortic valve replacement) Procedures Transthoracic Echo Complete [place] ECHO TTHRC R-T 2D W/WOM-MODE COMPL SPEC&COLR D Josep Perdomo MD [address] [facility] [address], [address] [address] Referral ID Status Reason Start Date Expiration Date Visits Requested Visits Authorized [id number] Pending Review Perform Procedure 03/16/2024 03/16/2025 1 1 Specialty Diagnoses / Procedures Referred By Contac t Referred To Contact Cardiology Diagnoses Essential hypertension, benign Procedures Follow Up In Cardiology Josep Perdomo MD [address] [facility] [address], [address] [address] Josep Perdomo MD [address] [facility] [address], [address] [address] Referral ID Status Reason Start Date Expiration Date V isits Requested Visits Authorized [id number] Authorized 03/16/2024 03/16/2025 1 1 Additional Source Comments Source Comments (unrecognize d section and content) In the event this informatio n is protected by the Federal Confidentiality of Alcohol and Drug Abuse Patient Records regulations: The Federal rules restrict any use of the information to criminally investigate or prosecute any alcohol or drug abuse patient.[facility] the event this information is protected by the Federal Confidentiality of Alcohol and Drug Abuse Patient Records regulations: The Federal rules restrict any use of the information to criminally investigate or prosecute any alcohol or drug abuse patient.[facility] the event this information is protected by the Federal Confidentiality of Alcohol and Drug Abuse Patient Records regulations: The Federal rules restrict any use of the information to criminally investigate or prosecute any alcohol or drug abuse patient.[facility] the event this information is protected by the Federal Confidentiality of Alcohol and Drug Abuse Patient Records regulations: The Federal rules restrict any use of the information to criminally investigate or prosecute any alcohol or drug abuse patient.[facility] Township[facility] the event this information is protected by the Federal Confidentiality of Alcohol and Drug Abuse Patient Records regulations: The Federal rules restrict any use of the information to criminally investigate or prosecute any alcohol or drug abuse patient.[facility] the event this information is protected by the Federal Confidentiality of Alcohol and Drug Abuse Patient Records regulations: The Federal rules restrict any use of the information to criminally investigate or prosecute any alcohol or drug abuse patient.[facility] the event this information is protected by the Federal Confidentiality of Alcohol and Drug Abuse Patient Records regulations: The Federal rules restrict any use of the information to criminally investigate or prosecute any alcohol or drug abuse patient.[facility] the event this information is protected by the Federal Confidentiality of Alcohol and Drug Abuse Patient Records regulations: The Federal rules restrict any use of the information to criminally investigate or prosecute any alcohol or drug abuse patient.[facility] the event this information is protected by the Federal Confidentiality of Alcohol and Drug Abuse Patient Records regulations: The Federal rules restrict any use of the information to criminally investigate or prosecute any alcohol or drug abuse patient.[facility] the event this information is protected by the Federal Confidentiality of Alcohol and Drug Abuse Patient Records regulations: The Federal rules restrict any use of the information to criminally investigate or prosecute any alcohol or drug abuse patient.[facility] the event this information is protected by the Federal Confidentiality of Alcohol and Drug Abuse Patient Records regulations: The Federal rules restrict any use of the information to criminally investigate or prosecute any alcohol or drug abuse patient.[facility] the event this information is protected by the Federal Confidentiality of Alcohol and Drug Abuse Patient Records regulations: The Federal rules restrict any use of the information to criminally investigate or prosecute any alcohol or drug abuse patient.[facility] the event this information is protected by the Federal Confidentiality of Alcohol and Drug Abuse Patient Records regulations: The Federal rules restrict any use of the information to criminally investigate or prosecute any alcohol or drug abuse patient.[facility] the event this information is protected by the Federal Confidentiality of Alcohol and Drug Abuse Patient Records regulations: The Federal rules restrict any use of the information to criminally investigate or prosecute any alcohol or drug abuse patient.[facility] the event this information is protected by the Federal Confidentiality of Alcohol and Drug Abuse Patient Records regulations: The Federal rules restrict any use of the information to criminally investigate or prosecute any alcohol or drug abuse patient.[facility] the event this information is protected by the Federal Confidentiality of Alcohol and Drug Abuse Patient Records regulations: The Federal rules restrict any use of the information to criminally investigate or prosecute any alcohol or drug abuse patient.[facility] TownshipIn the event this information is protected by the Federal Confidentiality of Alcohol and Drug Abuse Patient Records regulations: The Federal rules restrict any use of the information to criminally investigate or prosecute any alcohol or drug abuse patient.[facility] TownshipIn the event this information is protected by the Federal Confidentiality of Alcohol and Drug Abuse Patient Records regulations: The Federal rules restrict any use of the information to criminally investigate or prosecute any alcohol or drug abuse patient.[facility] TownshipIn the event this information is protected by the Federal Confidentiality of Alcohol and Drug Abuse Patient Records regulations: The Federal rules restrict any use of the information to criminally investigate or prosecute any alcohol or drug abuse patient.[facility] TownshipIn the event this information is protected by the Federal Confidentiality of Alcohol and Drug Abuse Patient Records regulations: The Federal rules restrict any use of the information to criminally investigate or prosecute any alcohol or drug abuse patient.[facility] TownshipIn the event this information is protected by the Federal Confidentiality of Alcohol and Drug Abuse Patient Records regulations: The Federal rules restrict any use of the information to criminally investigate or prosecute any alcohol or drug abuse patient.[facility] TownshipIn the event this information is protected by the Federal Confidentiality of Alcohol and Drug Abuse Patient Records regulations: The Federal rules restrict any use of the information to criminally investigate or prosecute any alcohol or drug abuse patient.[facility] TownshipIn the event this information is protected by the Federal Confidentiality of Alcohol and Drug Abuse Patient Records regulations: The Federal rules restrict any use of the information to criminally investigate or prosecute any alcohol or drug abuse patient.[facility] TownshipIn the event this information is protected by the Federal Confidentiality of Alcohol and Drug Abuse Patient Records regulations: The Federal rules restrict any use of the information to criminally investigate or prosecute any alcohol or drug abuse patient.[facility] Reason for Visit (unrecogniz ed section and content) Reason Comments Radiology XR Specialty Diagnoses / Procedures Referred By Contac t Referred To Contact Radiology / RADIO GEN [facility] Diagnoses left tkr - 1 year follow up Procedures XR LIBRADO Violet Monterroso MD [address] [place] [address] [facility] [address] [place] [address] Referral ID Status Reason Start Date Expiration Date Visits Re quested Visits Authorized [id number] Closed 02/09/2021 05/10/2021 99 99 Reason Comments Results Reason Comments Forms Extend FMLA Specialty Diagnoses / Procedures Referred By Contac t Referred To Contact Orthopedics / ORTHOPAEDIC SURGERY Diagnoses Encounter for general adult medical examination without abnormal findings DISCUSS SURGERY- REVISION RIGHT TKR Procedures OFFICE/OUTPATIENT ESTABLISHED MOD MDM 30-39 MIN LIBRADO ESTABLISH Self Violet Combs MD [address] [place] [address] Referral ID Status Reason Start Date Expiration Date Visits Re quested Visits Authorized [id number] Closed 05/31/2022 07/17/2022 1 1 Reason Comments New Specialty Diagnoses / Procedures Referred By Contac t Referred To Contact Orthopedics / ORTHOPAEDIC SURGERY Diagnoses SEE DR. COMBS PRIOR TO SURGERY 08/19/22 Procedures OFFICE/OUTPATIENT ESTABLISHED MOD MDM 30-39 MIN LIBRADO ESTABLISH Self Violet Combs MD [address] [place] [address] Referral ID Status Reason Start Date Expiration Date Visits Re quested Visits Authorized [id number] Closed 08/05/2022 07/17/2023 1 1 Reason Comments Established Patient Follow Up Knee Replacement Specialty Diagnoses / Procedures Referred By Contac t Referred To Contact ORTHOPAEDIC SURGERY Diagnoses Encounter for follow-up examination after completed treatment for conditions other than malignant neoplasm Procedures FOLLOW-UP/REASSESSMENT Post Op Revision Knee Lucas Levy PA-C [address] [place] [address] Danisha Rodriguezain [address] [place] [id number] Referral ID Status Reason Start Date Expiration Date Visits Re quested Visits Authorized [id number] Closed 09/06/2022 12/05/2022 1 0 Reason Comments Established Patient Follow Up Knee Replacement Specialty Diagnoses / Procedures Referred By Contac t Referred To Contact Orthopedics / ORTHOPAEDIC SURGERY Diagnoses Follow-up examination POST OP REVISION KNEE Procedures OFFICE/OUTPATIENT ESTABLISHED MOD MDM 30-39 MIN POST OP Self Violet Combs MD [address] [place] [address] Referral ID Status Reason Start Date Expiration Date Visits Re quested Visits Authorized [id number] Closed 09/29/2022 12/28/2022 1 0 Reason Comments Follow Up Established Patient Knee Replacement Specialty Diagnoses / Procedures Referred By Contac t Referred To Contact Orthopedics / ORTHOPAEDIC SURGERY Diagnoses Follow-up examination Follow up right knee - surgery Aug 2022 Procedures OFFICE/OUTPATIENT ESTABLISHED MOD MDM 30-39 MIN LIBRADO ESTABLISH Self Violet Combs MD [address] [place] [address] Referral ID Status Reason Start Date Expiration Date Visits Re quested Visits Authorized [id number] Closed 02/28/2023 07/17/2023 1 1 Specialty Diagnoses / Procedures Referred By Contac t Referred To Contact Orthopedics / ORTHOPAEDIC SURGERY Diagnoses Status post revision of total knee, right Status post left knee replacement BILATERAL KNEE PAIN FOLLOW UP Procedures OFFICE/OUTPATIENT ESTABLISHED MOD MDM 30 MIN LIBRADO ESTABLISH Self Lucas Levy PA-C [address] [place] [address] Referral ID Status Reason Start Date Expiration Date Visits Re quested Visits Authorized [id number] Closed 07/29/2023 07/17/2024 1 1 Reason Comments Follow-up Hypertension Specialty Diagnoses / Procedures Referred By Contac t Referred To Contact Radiology / RADIO GEN [facility] Diagnoses Status post revision of total knee, right Status post left knee replacement BILATERAL KNEE XRAYS ORDER NEEDS LINKED Procedures RADIOLOGIC EXAMINATION KNEE 3 VIEWS XR LIBRADO GENERAL Self Radio [facility] [address] [place] [address] Referral ID Status Reason Start Date Expiration Date Visits Re quested Visits Authorized [id number] Closed 07/29/2023 07/17/2024 1 1 Reason Comments Radiology XR Specialty Diagnoses / Procedures Referred By Contac t Referred To Contact XR IMAGING Diagnoses S/P right unicompartmental knee replacement Primary osteoarthritis of right knee Procedures XR KNEE GENERAL 4V AP BOTH/PA BOTH/LAT/MERC BILATERAL RADIOLOGIC EXAM KNEE COMPLETE 4/MORE VIEWS Violet Combs MD [address] [place] [address] [place] [address] Referral ID Status Reason Start Date Expiration Date V isits Requested Visits Authorized [id number] Closed Auto-Generate d Referral 05/26/2022 06/25/2023 1 1 Specialty Diagnoses / Procedures Referred By Contac t Referred To Contact XR IMAGING Diagnoses Status post left knee replacement S/P right unicompartmental knee replacement Procedures XR KNEE POST OP 3V AP/LAT/MERCHANT BILATERAL X-RAY KNEE 3+ VW Lucas Levy PA-C [address] [place] [address] [place] [address] Referral ID Status Reason Start Date Expiration Date V isits Requested Visits Authorized [id number] Closed Auto-Generate d Referral 08/02/2021 09/01/2022 1 1 Reason Comments Foot Pain Rt foot pain on oute r edge - possible lesion Reason Comments Plantar Warts F/U Rt foot lesion Reason Comments Foot Wound Check 1 wk F/U RT foot wou nd Reason Comments Foot Wound Check F/U RT foot ulcer Reason Comments Plantar Warts F/U RT foot lesion Reason Comments Follow-up 6 month Specialty Diagnoses / Procedures Referred By Dany t Referred To Contact Cardiology Diagnoses Essential hypertension, benign Procedures Follow Up In Cardiology Josep Perdomo MD [address] [place] [address] 2, [address] [address] Josep Perdomo MD [address] [facility] 2, [address] [place] [address] Referral ID Status Reason Start Date Expiration Date V isits Requested Visits Authorized [id number] Authorized 09/09/2023 09/08/2024 1 1 Reason Onset Date Comments Med Refill 10/15/2024 Reason Onset Date Comments Med Refill 11/12/2024 Care Teams (unrecognized sec tion and content) [employer] Plant Supervisor Relationship Specialty Start Date End Date Oswaldo Grewal MD [address] [place] [address] PCP - General Family Practice 06/09/18 [employer] Plant Supervisor Relationship Specialty Start Date End Date Oswaldo Grewal MD [address] [place] [address] PCP - General Family Practice 06/09/18 Team Status: Inactive Member Role Status Dates Yajaira Bhardwaj APRN INDUSTRIAL CHEMISTRY TEACHER-C Primary Care Provider Activ e Josep Perdomo MD Attending Provider Active Team Status: Inactive Member Role Status Dates Yajaira Bhardwaj APRN INDUSTRIAL CHEMISTRY TEACHER-C Primary Care Provider Activ e Jose Jordan MD Attending Provider Active Team Status: Active Member Role Status Dates Yajaira Bhardwaj APRN INDUSTRIAL CHEMISTRY TEACHER-C Primary Care Provider Activ e [employer] Plant Supervisor Relationship Specialty Start Date End Date Oswaldo Grewal MD [address] [place] [phone] PCP - General Family Medicine 06/09/18 Team Status: Inactive Member Role Status Dates Yajaira Bhardwaj APRN INDUSTRIAL CHEMISTRY TEACHER-C Primary Care Provider Activ e Spenser Canchola DO Attending Provider Active Con[employer] Block Plant Supervisor Relationship Specialty Start Date End Date Oswaldo Grewal MD [address] [place] [phone] PCP - General Family Medicine 06/09/18 Team Status: Inactive Member Role Status Dates Noemi Daniels NP Primary Care Provider Active Spenser Canchola DO Attending Provider Active Team Status: Active Member Role Status Dates Noemi Daniels NP Primary Care Provider Active Team Status: Inactive Member Role Status Dates Noemi Daniels NP Primary Care Provider, Attending Pro vider Active [employer] Plant Supervisor Relationship Specialty Start Date End Date Oswaldo Grewal MD [address] [place] [phone] PCP - General Family Medicine 06/09/18 [employer]crete Block Plant Supervisor Relationship Specialty Start Date End Date Oswaldo Grewal MD [address] [place] [address] PCP - General Family Medicine 06/09/18 Quoc Perdomohaf A [address] [place] [address] Cardiology 08/04/22 Concrete Block Plant Supervisor Relationship Specialty Start Date End Date Oswaldo Grewal MD [address] [place] [address] PCP - General Family Medicine 06/09/18 Quoc Perdomohaf A [address] [place] [address] Cardiology 08/04/22 Concrete Block Plant Supervisor Relationship Specialty Start Date End Date Oswaldo Grewal MD [address] [place] [address] PCP - General Family Medicine 06/09/18 Quoc Perdomohaf A [address] [place] [address] Cardiology 08/04/22 Concrete Block Plant Supervisor Relationship Specialty Start Date End Date Oswaldo Grewal MD [address] [place] [address] PCP - General Family Medicine 06/09/18 Quoc Perdomohaf A [address] [place] [address] Cardiology 08/04/22 Concrete Block Plant Supervisor Relationship Specialty Start Date End Date Oswaldo Grewal MD [address] [place] [address] PCP - General Family Medicine 06/09/18 Quoc Perdomohaf A [address] [place] [address] Cardiology 08/04/22 Concrete Block Plant Supervisor Relationship Specialty Start Date End Date Oswaldo Grewal MD [address] [place] [address] PCP - General Family Medicine 06/09/18 Josep Perdomo [address] [place] [phone] Cardiology 08/04/22 Concrete Block Plant Supervisor Relationship Specialty Start Date End Date Oswaldo Grewal MD [address] [place] [address] PCP - General Family Medicine 06/09/18 Josep Perdomo [address] [place] [phone] Cardiology 08/04/22 Concrete Block Plant Supervisor Relationship Specialty Start Date End Date Oswaldo Grewal MD [address] [place] [address] PCP - General Family Medicine 06/09/18 Josep Perdomo [address] [place] [phone] Cardiology 08/04/22 Concrete Block Plant Supervisor Relationship Specialty Start Date End Date Oswaldo Grewal MD [address] [place] [address] PCP - General Family Medicine 06/09/18 Josep Perdomo MD [address] [place] [address] Cardiology 08/04/22 Concrete Block Plant Supervisor Relationship Specialty Start Date End Date Oswaldo Grewal MD [facility] [place] [address] PCP - General 12/18/18 Concrete Block Plant Supervisor Relationship Specialty Start Date End Date Oswaldo Grewal MD [address] [place] [address] PCP - General Family Medicine 06/09/18 Josep Perdomo MD [address] [place] [address] Cardiology 08/04/22 Concrete Block Plant Supervisor Relationship Specialty Start Date End Date Oswaldo Grewal MD [address] [place] [address] PCP - General Family Medicine 06/09/18 Josep Perdomo MD [address] [place] [address] Cardiology 08/04/22 Concrete Block Plant Supervisor Relationship Specialty Start Date End Date Oswaldo Grewal MD [address] [place] [address] PCP - General Family Medicine 06/09/18 Josep Perdomo MD [address] [place] [address] Cardiology 08/04/22 Concrete Block Plant Supervisor Relationship Specialty Start Date End Date Oswaldo Grewal MD [address] [place] [address] PCP - General Family Medicine 06/09/18 Josep Perdomo MD [address] [place] [address] Cardiology 08/04/22 Concrete Block Plant Supervisor Relationship Specialty Start Date End Date Oswaldo Grewal MD [address] [place] [address] PCP - General Family Medicine 06/09/18 Concrete Block Plant Supervisor Relationship Specialty Start Date End Date Oswaldo Grewal MD [address] [place] [address] PCP - General Family Medicine 06/09/18 Concrete Block Plant Supervisor Relationship Specialty Start Date End Date Oswaldo Grewal MD [address] [place] [address] PCP - General Family Medicine 06/09/18 Concrete Block Plant Supervisor Relationship Specialty Start Date End Date Oswaldo Grewal MD [address] [place] [address] PCP - General Family Medicine 06/09/18 Concrete Block Plant Supervisor Relationship Specialty Start Date End Date Oswaldo Grewal MD [address] [place] [address] PCP - General Family Medicine 06/09/18 Concrete Block Plant Supervisor Relationship Specialty Start Date End Date Oswaldo Grewal MD [address] [place] [address] PCP - General Family Medicine 06/09/18 Concrete Block Plant Supervisor Relationship Specialty Start Date End Date Oswaldo Grewal MD [address] [place] [address] PCP - General Family Medicine 12/04/22 Guerline Escobar NP [address] [place] [address] Nurse Practitioner Pulmonary Disease 09/20/23 Noemi Argueta NP [address] [place] [address] Nurse Practitioner Family Medicine 09/20/23 Concrete Block Plant Supervisor Relationship Specialty Start Date End Date Oswaldo Grewal MD [address] [place] [address] PCP - General Family Medicine 12/04/22 Guerline Escobar NP [address] [place] [address] Nurse Practitioner Pulmonary Disease 09/20/23 Noemi Argueta NP [address] [place] [address] Nurse Practitioner Family Medicine 09/20/23 Concrete Block Plant Supervisor Relationship Specialty Start Date End Date Oswaldo Grewal MD [address] [place] [address] PCP - General Family Medicine 12/04/22 Guerline Escobar NP [address] [place] [address] Nurse Practitioner Pulmonary Disease 09/20/23 Noemi Argueta, KEO [address] [place] [address] Nurse Practitioner Family Medicine 09/20/23 Concrete Block Plant Supervisor Relationship Specialty Start Date End Date Osawldo Grewal MD [address] [place] [address] PCP - General Family Medicine 12/04/22 Guerline Escobar NP [address] [place] [address] Nurse Practitioner Pulmonary Disease 09/20/23 Noemi Argueta NP [address] [place] [address] Nurse Practitioner Family Medicine 09/20/23 Concrete Block Plant Supervisor Relationship Specialty Start Date End Date Oswaldo Grewal MD [address] [place] [address] PCP - General Family Medicine 12/04/22 Guerline Escobar NP [address] [place] [address] Nurse Practitioner Pulmonary Disease 09/20/23 Noemi Argueta NP [address] [place] [address] Nurse Practitioner Family Medicine 09/20/23 Concrete Block Plant Supervisor Relationship Specialty Start Date End Date Oswaldo Grewal MD [address] [place] [address] PCP - General Family Medicine 12/04/22 Guerline Escobar NP [address] [place] [address] Nurse Practitioner Pulmonary Disease 09/20/23 Noemi Argueta NP [address] [place] [address] Nurse Practitioner Family Medicine 09/20/23 Concrete Block Plant Supervisor Relationship Specialty Start Date End Date Oswaldo Grewal MD [address] [place] [address] PCP - General Family Medicine 12/04/22 Guerline Escobar NP [address] [place] [address] Nurse Practitioner Pulmonary Disease 09/20/23 Noemi Argueta NP [address], [facility] Nurse Practitioner Family Medicine 09/20/23 Concrete Block Plant Supervisor Relationship Specialty Start Date End Date Oswaldo Grewal MD [address] [place] [address] PCP - General Family Medicine 12/04/22 Guerline Escobar NP [address] [place] [address] Nurse Practitioner Pulmonary Disease 09/20/23 Noemi Argueta NP [address] [place] [address] Nurse Practitioner Family Medicine 09/20/23 Concrete Block Plant Supervisor Relationship Specialty Start Date End Date Oswaldo Grewal MD [facility] [place] [address] PCP - General 12/18/18 Concrete Block Plant Supervisor Relationship Specialty Start Date End Date Oswaldo Grewal MD [address] [place] [address] PCP - General Family Medicine 12/04/22 Guerline Escobar NP [address] [place] [address] Nurse Practitioner Pulmonary Disease 09/20/23 Noemi Argueta NP [address] [place] [address] Nurse Practitioner Family Medicine 09/20/23 Concrete Block Plant Supervisor Relationship Specialty Start Date End Date Oswaldo Grewal MD [address] [place] [address] PCP - General Family Medicine 12/04/22 Guerline Escobar NP [address] [place] [address] Nurse Practitioner Pulmonary Disease 09/20/23 Noemi Argueta NP [address] [place] [address] Nurse Practitioner Family Medicine 09/20/23 Concrete Block Plant Supervisor Relationship Specialty Start Date End Date Oswaldo Grewal MD [address] [place] [address] PCP - General Family Medicine 12/04/22 Guerline Escobar NP [address] [place] [address] Nurse Practitioner Pulmonary Disease 09/20/23 Noemi Argueta NP [address] [place] [address] Nurse Practitioner Family Medicine 09/20/23 Concrete Block Plant Supervisor Relationship Specialty Start Date End Date Oswaldo Grewal MD [address] [place] [address] PCP - General Family Medicine 12/04/22 Guerline Escobar NP [address] [place] [address] Nurse Practitioner Pulmonary Disease 09/20/23 Noemi Argueta NP [address] [place] [address] Nurse Practitioner Family Medicine 09/20/23 Concrete Block Plant Supervisor Relationship Specialty Start Date End Date Oswaldo Grewal MD [address] [place] [address] PCP - General Family Medicine 12/04/22 Guerline Escobar NP [address] [place] [address] Nurse Practitioner Pulmonary Disease 09/20/23 Noemi Argueta NP [address] [place] [address] Nurse Practitioner Family Medicine 09/20/23 Concrete Block Plant Supervisor Relationship Specialty Start Date End Date Oswaldo Grewal MD [address] [place] [address] PCP - General Family Medicine 12/04/22 Guerline Escobar NP [address] [place] [address] Nurse Practitioner Pulmonary Disease 09/20/23 Noemi Argueta NP [address] [place] [address] Nurse Practitioner Family Medicine 09/20/23 Concrete Block Plant Supervisor Relationship Specialty Start Date End Date Oswaldo Grewal MD [address] [place] [address] PCP - General Family Medicine 12/04/22 Guerline Escobar NP [address] [place] [place] [address] Nurse Practitioner Pulmonary Disease 09/20/23 Noemi Argueta NP [address] [place] [address] Nurse Practitioner Family Medicine 09/20/23 Concrete Block Plant Supervisor Relationship Specialty Start Date End Date Oswaldo Grewal MD [address] [place] [address] PCP - General Family Medicine 12/04/22 Guerline Escobar NP [address] [place] [address] Nurse Practitioner Pulmonary Disease 09/20/23 Noemi Argueta NP [address] [place] [address] Nurse Practitioner Family Medicine 09/20/23 Concrete Block Plant Supervisor Relationship Specialty Start Date End Date Oswaldo Grewal MD [address] [place] [address] PCP - General Family Medicine 12/04/22 Guerline Escobar INDUSTRIAL CHEMISTRY TEACHER [address] [place] [address] Nurse Practitioner Pulmonary Disease 09/20/23 Noemi Argueta NP [address] [place] [address] Nurse Practitioner Family Medicine 09/20/23 <item> Privacy Markings (unrecogniz ed section and content) Section Author: Meagan Mabry PROHIBITION ON REDISCLOSURE OF CONFIDENTIAL INFORMATION This notice accompanies a disclosure of information concerning a client made to you with the consent of such client. Goals (unrecognized section and content) Goals may be documented in a n alternate section INFORMATION SOURCE (unrecogn ized section and content) DATE CREATED AUTHOR 08/21/2022 [facility] DATE CREATED AUTHOR AUTHOR'S ORGANIZ ATION 09/19/2022 [facility] DATE CREATED AUTHOR AUTHOR'S ORGANIZ ATION 10/10/2022 [facility] DATE CREATED AUTHOR AUTHOR'S ORGANIZ ATION 03/18/2023 [facility] DATE CREATED AUTHOR AUTHOR'S ORGANIZ ATION 03/18/2023 [employer] DATE CREATED AUTHOR AUTHOR'S ORGANIZ ATION 09/04/2023 [facility] DATE CREATED AUTHOR AUTHOR'S ORGANIZ ATION 09/17/2023 [facility] DATE CREATED AUTHOR AUTHOR'S ORGANIZ ATION 08/08/2024 [facility] DATE CREATED AUTHOR AUTHOR'S ORGANIZ ATION 11/21/2024 [facility] d[facility] Specialists EPIC FOR RECORDS PERTAINING TO PATIENTS WHO ARE OR HAVE BEEN ENROLLED IN A CHEMICAL DEPENDENCY/SUBSTANCEABUSE PROGRAM, SOME INFORMATION MAY BE OMITTED. This clinical summary was aggregated from multiple sources. Caution should be exercised in using it in the provision of clinical care. This summary normalizes information from multiple sources, and as a consequence, information in this document may materially change the coding, format and clinical context of patient data. In addition, data may be omitted in some cases. CLINICAL DECISIONS SHOULD BE BASED ON THE PRIMARY CLINICAL RECORDS. [facility] [employer] provides no warranty or guarantee of the accuracy or completeness of information in this document.
[2025-01-08] MEDS: ADACEL DIPH,PERTUSS(ACELL),TET VAC/PF 0.5 ML ADULT SYRINGE IM (06:17)
[2025-01-08] MEDS: BACITRACIN 0.9 GM PACKET 1 PACKET TOPICAL (06:18)
[2025-01-08] MEDS: LIDOCAINE HCL 1% 100 MG/10 ML MDV INJ (06:24)
== END 2025-01-08 07:41 | disposition home or self-care (01) ==
PROVIDERS: Emergency Provider Internal Medicine; PCP Family Medicine
DX: S01.81XA Laceration without foreign body of other part of head, initial encounter (principal); S62.317A Displaced fracture of base of fifth metacarpal bone, left hand, initial encounter for closed fracture; W10.8XXA Fall (on) (from) other stairs and steps, initial encounter; Z23 Encounter for immunization; S09.8XXA Other specified injuries of head, initial encounter
CPT/HCPCS: 12014; 29125; 70450; 72125; 73130; 90471; 90715; 99285

== ENCOUNTER 2025-04-06 08:39 | Outpatient (OUT) | payer OTHER, SELFPAY ==
--- OUTSIDE RECORDS SUMMARY | 2025-01-29 07:53 | XMS_ITS | Encounter Summary ---
Author Organization [facility] Address [address] [place] [address] Care Team Providers Care Verification Lead Name Role Phone Oswaldo Grewal MD Primary Care Provider [phone] Danilo Cage MD Unavailable [phone] Source Comments In the event this information is protected by the Federal Confidentiality of Alcohol and Drug AbusePatient Records regulations: The Federal rules restrict any use of the information to criminally investigate or prosecute any alcohol or drug abuse patient.[facility] Encounter Details Date Type Department Care Team (Late st Contact Info) Description 05/31/2022 Radiology Radiology [address] [place] [address] Aline Stone, RT(R) Social History Tobacco Use Types Packs/Day Years Used Date Smoking Tobacco: Never Smokeless Tobacco: Never Alcohol Use Standard Drinks/Week Comments No 0 (1 standard drink = 0.6 oz pur e alcohol) Overall Financial Resource Strain (CARDIA) Answe r Date Recorded How hard is it for you to pa y for the very basics like food, housing, medical care, and heating? Not hard at all 02/05/2020 Hunger Vital Sign Answer Date Recorded Within the past 12 months, y ou worried that your food would run out before you got the money to buy more. Never true 02/05/20 20 Within the past 12 months, t he food you bought just didn't last and you didn't have money to get more. Never true 02/05/2020 PRAPARE - Transportation Answer Date Re corded In the past 12 months, has l ack of transportation kept you from medical appointments or from getting medications? No 01/16 In the past 12 months, has l ack of transportation kept you from meetings, work, or from getting things needed for daily living? No 02/05/2020 Area Deprivation Index Answer Date Misha rded National Score (1-100), lower number is lower ri sk 82 12/09/2021 State Score (1-10), lower number is lower risk N ot on file 12/09/2021 Data from: https://www.neighborhoodatlas.medicine.[facility].edu/. Last address used for calculation [address] 12/09/2021 Comments No Sex and Gender Information Value Date Recorded Sex Assigned at Not on file Legal Sex Female 9:57 AM EDT Gender Identity Not on file Sexual Orientation Not on file COVID-19 Exposure Response Date Recorded In the last 10 days, have yo u been in contact with someone who was confirmed or suspected to have Coronavirus/COVID-19? No / Unsure 05/31/2022 11:23 AM EST documented as of this encounter Functional Status * Are you deaf or do you have serious difficulty hearing? Answer Date of Assessment Author No 07/03/2014 9:39 AM EST Regina Reyes MA * Are you blind or do you have serious difficulty seeing, even when wearing glasses? Answer Date of Assessment Author No 07/03/2014 9:39 AM EST Regina Reyes MA * Do you have serious difficulty walking or climbing stairs? Answer Date of Assessment Author No 07/03/2014 9:39 AM Regina Hale MA * Do you have difficulty dressing or bathing? Answer Date of Assessment Author No 07/03/2014 9:39 AM EST Regina Reyes MA * Because of a physical, mental, or emotional condition, do you have difficulty doing errands alone such as visiting a doctor's office or shopping? Answer Date of Assessment Author No 07/03/2014 9:39 AM Regina Hale MA documented as of this encounter Mental Status * Because of a physical, mental, or emotional condition, do you have serious difficulty concentrating, remembering, or making decisions? Answer Entry Date Author No 07/03/2014 9:39 AM Regina Hale MA documented in this encounter Progress Notes * Aline Stone RT(R) - 05/31/2022 11:40 AM EST Radiology Service Progress Note PATIENT NAME: Ledy Johsnon DATE OF SERVICE: May 31, 2022 TIME: 11:40 AM PATIENT IDENTITY VERIFICATION COMPLETED USING TWO [...] AP / Lat / Tunne / Merchant Bilateral and Wt. Bearing PERIPHERAL IV DATA: Not applicable SIGNED BY: RT Casandra(R) May 31, 2022 11:40 AM documented in this encounter Plan of Treatment Not on file documented as of this encounter Visit Diagnoses Not on filedocumented in this encounter Additional Health Concerns Infection Onset Date Last Indicated Resolved Time COVID-19 Rule-Out 08/19/2022 08/19/2022 08/19/2022 4:20 PM EST documented as of this encounter Care Teams Verification Lead Relationship Specialty Start Date End Date Oswaldo Grewal MD [address] [place] [address] PCP - General Family Medicine 06/09/18 Danilo Cage MD [address] [place] [address] Cardiology 08/04/22 documented as of this encounter
--- OUTSIDE RECORDS SUMMARY | 2025-01-29 07:53 | XMS_ITS | Encounter Summary ---
Author Organization [facility] Address [address] [place] [address] Care Team Providers Care Entry Level Receptionist Name Role Phone Oswaldo Grewal MD Primary Care Provider [phone] Guerline Escobar ASSURANCE SOURCING MANAGER Unavailable [phone] Noemi Ramirez NP Unavailable Reason for Visit * Reason Comments Med Refill Encounter Details Date Type Department Care Team (Late st Contact Info) Description 02/07/2023 Refill [facility] [address] [place] [phone] Guerline Escobar ASSURANCE SOURCING MANAGER [address] [place] [place] [address] Hypertriglyceridemia Social History Tobacco Use Types Packs/Day Years Used Date Smoking Tobacco: Never Smokeless Tobacco: Never Alcohol Use Standard Drinks/Week Comments Never 0 (1 standard drink = 0.6 oz pure alcohol) caffeine: 1-2 cups per day coffee, tea Comments Unknown Sex and Gender Information Value Date Recorded Sex Assigned at Not on file Legal Sex Female 7:13 PM EDT Gender Identity Not on file Sexual Orientation Not on file documented as of this encounter Miscellaneous Notes * Telephone Encounter - Guerline Escobar NP - 02/08/2023 4:58 PM EDT Approving, but needs appt for additional refills. documented in this encounter Plan of Treatment Upcoming Encounters Date Type Department Care Team (Late st Contact Info) Description 01/31/2025 9:00 AM EDT Office Visit [facility] [address] [place] [address] Guerline Escobar NP [address] [place] [address] 02/22/2025 8:30 AM EDT Office Visit [facility] [address] [place] [address] Christiano Gregg MD [address] [facility] [address] [phone] documented as of this encounter Visit Diagnoses Diagnosis Hypertriglyceridemia Pure hyperglyceridemia documented in this encounter Care Teams Entry Level Receptionist Relationship Specialty Start Date End Date Oswaldo Grewal MD [address] [place] [address] PCP - General Family Medicine 12/04/22 Guerline Escobar, ASSURANCE SOURCING MANAGER [address] [place] [address] Nurse Practitioner Pulmonary Disease 09/20/23 Noemi Ramirez NP [address] [place] [phone] Nurse Practitioner Family Medicine 09/20/23 01/12/25 documented as of this encounter
--- OUTSIDE RECORDS SUMMARY | 2025-01-29 07:53 | XMS_ITS | Encounter Summary ---
Author Organization [facility] Address [address] [facility] [place] [address] Care Team Providers Care Main Line Assembler Name Role Phone Oswaldo Grewal MD Primary Care Provider [phone] Guerline Escobar NUCLEAR TECHNICIAN Unavailable [phone] Noemi Ramirez NP Unavailable Reason for Visit * Reason Comments Med Refill Encounter Details Date Type Department Care Team (Late st Contact Info) Description 06/27/2023 Refill [facility] [address] [place] [address] Noemi Ramirez NP [address] [place] [address] Primary osteoarthritis involving multiple joints Social History Tobacco Use Types Packs/Day Years Used Date Smoking Tobacco: Never Smokeless Tobacco: Never Alcohol Use Standard Drinks/Week Comments Never 0 (1 standard drink = 0.6 oz pure alcohol) caffeine: 1-2 cups per day coffee, tea AUDIT-C Answer Date Recorded Q1: How often do you have a drink containing alcohol? Never 03/25/2023 Q2: How many drinks containi ng alcohol do you have on a typical day when you are drinking? Patient does not drink Q3: How often do you have si x or more drinks on one occasion? Never 03/25/2023 PHQ-2 Answer Date Recorded Patient Health Questionnaire-2 Score 0 03/25/2023 Comments No Sex and Gender Information Value Date Recorded Sex Assigned at Not on file Legal Sex Female 7:13 PM EDT Gender Identity Not on file Sexual Orientation Not on file documented as of this encounter Plan of Treatment Upcoming Encounters Date Type Department Care Team (Late st Contact Info) Description 01/31/2025 9:00 AM EDT Office Visit [facility] [address] [place] [address] Guerline Escobar NP [address] [place] [address] 02/22/2025 8:30 AM EDT Office Visit [facility] [address] [place] [address] Christiano Gregg MD [address] [facility] [address] [phone] documented as of this encounter Visit Diagnoses Diagnosis Primary osteoarthritis involving multiple joints documented in this encounter Care Teams Main Line Assembler Relationship Specialty Start Date End Date Oswaldo Grewal MD [address] [place] [address] PCP - General Family Medicine 12/04/22 Guerline Escobar, NUCLEAR TECHNICIAN [address] [place] [address] Nurse Practitioner Pulmonary Disease 09/20/23 Noemi Ramirez NP [address] [place] [address] Nurse Practitioner Family Medicine 09/20/23 01/12/25 documented as of this encounter
--- OUTSIDE RECORDS SUMMARY | 2025-01-29 07:53 | XMS_ITS | Clinical Summary ---
Author Organization [facility] Address [address] [place] [address] Care Team Providers Care Spray Gun Repairer Helper Name Role Phone Oswaldo Grewal MD Primary Care Provider [phone] Guerline Escobar HAND ENDBAND CUTTER Unavailable [phone] Allergies Active Allergy Reactions Criticality Noted Date Comments Brimonidine Unknown 08/04/2023 Dorzolamide Unknown 08/04/2023 Dorzolamide Hcl-Timolol Mal 08/04/19 24 Other Reaction(s): Unknown Latex 06/18/2013 Other Reaction(s): Intolerance States she cannot have anything with elastic or latex, She gets a severe rash and areas of breakdown and pus. Levalbuterol Unknown 08/04/2023 Other 05/03/2021 Other Reaction(s): Rash Penicillins Rash Low 06/18/2013 Had rash once years ago and does not remember if she has had PCN since then. Timolol Unknown 08/04/2023 Medications oxyCODONE (Roxicodone) 5 MG immediate release tablet 3 Active chlorthalidone (Hygroton) 25 MG tablet Take 25 mg by mouth Daily 3 Active brimonidine (AlphaGAN P) 0.2 % ophthalmic solution Administer 1 drop into both eyes in the morning and 1 drop before bedtime. 3 Active latanoprost (Xalatan) 0.005 % ophthalmic solution Administer 1 drop into both eyes at bedtime 3 Active prednisoLONE acetate (Pred-Forte) 1 % ophthalmic suspension 3 Active valACYclovir (Valtrex) 1 g tablet Take 1,000 mg by mouth Daily as directed 3 Active meloxicam (Mobic) 7.5 MG tabletIndication s:Carpal tunnel syndrome, bilateral Take 1 tablet (7.5 mg) by mouth Daily 5 026 Active amLODIPine (Norvasc) 10 MG tabletIndication s:Primary hypertension Take 1 tablet (10 mg) by mouth Daily 5 025 Active atorvastatin (Lipitor) 10 MG tabletIndication s:Hypertriglycer idemia Take 1 tablet (10 mg) by mouth Daily 5 025 Active rOPINIRole (Requip) 1 MG tabletIndication s:Restless Leg Syndrome Take 1 tablet (1 mg) by mouth at bedtime 90 tablet 3 5 026 Active predniSONE (Deltasone) 20 MG tabletIndication s:Acute left-sided low back pain with left-sided sciatica Take two tablets (40 mg) daily for five days, then take one tablet (20 mg) daily for five days. Take with food. 15 tablet 5 Active rOPINIRole (Requip) 0.25 MG tabletIndication s:Restless Leg Syndrome Take 1 tablet (0.25 mg) by mouth 6 (six) times a day Patient states she takes it 1 in the morning, 1 at lunch, 2 in the evening and 2 at bed 180 tablet 11 5 Active dicyclomine (Bentyl) 20 MG tabletIndication s:Irritable bowel syndrome, unspecified type Take 1 tablet (20 mg) by mouth in the morning and 1 tablet (20 mg) before bedtime. 60 tablet 5 5 025 Active levothyroxine (Synthroid, Levoxyl) 100 MCG tablet TAKE 1 TABLET BY MOUTH EVERY MORNING BEFORE A MEAL 5 Active tiZANidine (Zanaflex) 4 MG tabletIndication s:Acute left-sided low back pain with left-sided sciatica Take 1 tablet (4 mg) by mouth at bedtime 30 tablet 3 5 Active valsartan (Diovan) 320 MG tabletIndication s:Irritable bowel syndrome, unspecified type Take 1 tablet (320 mg) by mouth Daily 30 tablet 1 5 Active magnesium oxide (Mag-Ox) 400 mg tabletIndication s:RLS (restless legs syndrome) Take 1 tablet (400 mg) by mouth in the morning and 1 tablet (400 mg) before bedtime. 180 tablet 3 5 026 Active gabapentin (Neurontin) 300 MG capsuleIndicatio ns:RLS (restless legs syndrome) Take 1 capsule (300 mg) by mouth in the morning and 1 capsule (300 mg) in the evening and 1 capsule (300 mg) before bedtime. 270 capsule 1 5 025 Active gabapentin (Neurontin) 600 MG tabletIndication s:Acute left-sided low back pain with left-sided sciatica Take 0.5 tablets (300 mg) by mouth in the morning and 0.5 tablets (300 mg) in the evening and 0.5 tablets (300 mg) before bedtime. 45 tablet 2 5 025 Discontin ued(Thera py completed ) Active Problems Problem Noted Date Diagnosed Date Never smoked tobacco 03/16/2024 Restless legs syndrome 12/19/2023 Chronic pain of both knees 08/04/2023 Cataract, nuclear sclerotic, both eyes 4 Dyspnea 08/04/2023 Primary open angle glaucoma (POAG) of both eyes, mild stage 08/04/2023 Knee joint stiffness, bilateral 07/29/2023 Carpal tunnel syndrome, bilateral 04/14/2023 Numbness 04/14/2023 Weakness 04/14/2023 HTN (hypertension) 02/25/2023 Overview (02/25/2023): Last Assessment & Plan: Assessment: Managed with med Date: BP: 08/05/2022 159/62 Stable. Morbid obesity 12/19/2022 Hypothyroidism (acquired) 08/05/2022 Overview (12/19/2022): Last Assessment & Plan: Assessment: s/p left thyroidectomy 05/2022 Managed with med Monitored by PCP RLS (restless legs syndrome) 08/05/2022 Overview (02/25/2023): Last Assessment & Plan: Assessment: Controlled with med Hypertriglyceridemia 12/19/2018 Type 2 diabetes mellitus without complication Vitamin D deficiency 06/21/2016 Mixed hyperlipidemia 05/12/2015 Resolved Problems Problem Noted Date Diagnosed Date Resolved Date HLD (hyperlipidemia) 02/25/2023 023 Overview (02/25/2023): Last Assessment & Plan: Assessment: managed with statin Artificial knee joint present 12/19/2022 02/07/2023 IBS (irritable bowel syndrome) 12/19/2022 02/07/2023 Overview (12/19/2022): Last Assessment & Plan: Assessment: Pt. 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 Danilo Cage, ( last visit 04/01/2022, next visit 02/2023) Per office Visit: Patient requesting preoperative risk assessment for knee surgery. I advised that she can proceed with surgery after new year in 3 months Asymptomatic Arthritis of right knee 03/27/202101/16 Knee effusion, right 03/27/2021 023 History of revision of total replacement of right knee joint 03/27/2021 02/07/2023 Difficulty walking 02/07/2020 3 Primary osteoarthritis of left knee 02/04/2020 02/07/2023 Obesity, Class II, BMI 35-39.9 02/03/2020 02/07/2023 Overview (12/19/2022): Last Assessment & Plan: Assessment: Body mass index is 38.62 kg/m . Weight reduction encouraged. Generalized osteoarthritis of multiple sites 0 02/07/2023 Sciatica, right side 11/14/2018 023 Neuralgia of right sciatic nerve 11/14/2018 02/07/2023 Class 1 obesity 10/11/2018 02/07/2023 Other chronic pain 10/11/2018 3 Obesity 12/21/2017 02/07/2023 Overview (12/19/2022): Last Assessment & Plan: Assessment: BMI 36.35 Postmenopausal bleeding 05/05/201701/16 Restless legs syndrome 06/21/201602/07 Overview (12/19/2022): Last Assessment & Plan: Assessment: Controlled with med Hyperlipidemia 12/08/2015 02/07/2023 Overview (12/19/2022): Last Assessment & Plan: Assessment: managed with statin Impaired fasting glucose 06/02/2015 Class 2 obesity 06/02/2015 02/07/2023 Essential hypertension 05/12/201502/25 Overview (12/19/2022): Last Assessment & Plan: Assessment: Managed with med Date: BP: 08/05/2022 159/62 Stable. Acute shoulder bursitis 09/19/201301/16 Status post left knee replacement 09/19/2013 02/07/2023 OA (osteoarthritis) of knee 06/08/2013 02/07/2023 Encounters Date Type Department Care Team Description 01/14/2025 Orders Only [facility] [address] [place] [address] Oswaldo Grewal MD RLS (restless legs syndrome) (Primary Dx) 01/14/2025 Telephone [facility] [address] [place] [address] Oswaldo Grewal MD Med Refill 01/13/2025 Abstract [facility] [address] [place] [address] Guerline Escobar NP 01/08/2025 Abstract [facility] [address] [place] [address] Guerline Escobar NP 01/08/2025 Abstract [facility] [address] [place] [address] Oswaldo Grewal MD 12/28/2024 Refill [facility] [address] [place] [address] Noemi Ramirez NP 12/11/2024 Telephone [facility] [address] [place] [address], [place] [address] Christiano Gregg MD 12/06/2024 Telephone [facility] [address] [facility] [place] [address] [place] [address] Christiano Gregg MD 11/19/2024 Refill [facility] [address] [place] [address] Guerline Escobar, HAND ENDBAND CUTTER Irritable bowel syndrome, unspecified type 11/19/2024 Refill [facility] [address] [place] [address] Guerline Escobar, HAND ENDBAND CUTTER Irritable bowel syndrome, unspecified type 11/16/2024 8:00 AM EDT Office Visit [facility] [address] [facility] [place] [address] [place] [address] Christiano Gregg MD Acute left-sided low back pain with left-sided sciatica; RLS (restless legs syndrome); Carpal tunnel syndrome, bilateral 11/16/2024 Bamboo flowsheet [facility] [address] [place] [address] Christiano Gregg MD 11/16/2024 Travel 11/12/2024 Refill [facility] [address] [place] [address] Guerline Escobar, HAND ENDBAND CUTTER Irritable bowel syndrome, unspecified type 11/02/2024 Telephone [facility] [address] [place] [address] Oswaldo Grewal MD from Last 3 Months Immunizations Immunization Administration Dates Next Due Influenza, Split (incl. purified surface antigen ) 05/15/2014 Influenza, injectable, MDCK, preservative free, quadrivalent 03/30/2024 Influenza, seasonal, intradermal, preservative f ree 05/15/2013 Moderna SARS-CoV-2 Vaccination 10/29/2020,2020 TD (adult), 2 Lf tetanus tox oid, preservative free, adsorbed 08/12/2010 Tdap 01/08/2025 Family History Medical History Relation Name Comments No Known Problems Brother Wu 1964 No Known Problems Daughter Eugenie 20 y/o Diabetes Father Art at 80 y/o Heart failure Father Art Diabetes Mother Yazmin Heart failure Mother Yazmin at 75 y/o Kidney disease Mother Yazmin Thyroid disease Sister Mely 1958 back disability Sister Mely No Known Problems Son Artis 34 y/o Relation Name Status Comments Brother Wu Daughter Eugenie Alive Father Art Mother Yazmin Sister Mely Son Artis Alive Social History Tobacco Use Types Packs/Day Years Used Date Smoking Tobacco: Never Smokeless Tobacco: Never Tobacco Cessation:Counseling Given: Not Answered Alcohol Use Standard Drinks/Week Comments Never 0 [...] Date Recorded Patient Health Questionnaire-2 Score 0 09/17/2024 Comments No Sex and Gender Information Value Date Recorded Sex Assigned at Not on file Legal Sex Female 7:13 PM EDT Gender Identity Not on file Sexual Orientation Not on file Last Filed Vital Signs Vital Sign Reading Time Taken Comments Blood Pressure 126/60 09/17/2024 8:03 AM EST Pulse 76 09/17/2024 8:03 AM EST Temperature 36.2 C (97.1 F) 09/17/2024 8:03 AM EST Respiratory Rate 20 09/17/2024 8:03 AM EST Oxygen Saturation 97% 09/17/2024 8:03 AM EST Inhaled Oxygen Concentration - - Weight 103 kg (227 lb) 11/16/2024 8:08 AM EDT Height 172.7 cm (5' 8 ) 11/16/2024 8:08 AM EDT Body Mass Index 34.52 11/16/2024 8:08 AM EDT Plan of Treatment Upcoming Encounters Date Type Department Care Team (Late st Contact Info) Description 01/31/2025 9:00 AM EDT Office Visit [facility] [address] [place] [address] Guerline Escobar, HAND ENDBAND CUTTER [address] [place] [address] 02/22/2025 8:30 AM EDT Office Visit [facility] [address] [place] [address] [place] [address] Christiano Gregg MD [address] [facility] [address] [address] Health Maintenance Due Date Last Done Comments CT Colonography 1961 FIT-DNA 1961 FIT 1961 FOBT 1961 Sigmoidoscopy 1961 Pap Smear 1982 Cervical Cancer Screening 1991 HPV/Cotest 1991 Diabetes: Hemoglobin A1C 11/01/2024 025, 03/30/2024, 09/23/2023, Additional history exists Diabetes: Retinopathy Screening 02/20/2025 02/20/2023, 01/21/2023, 12/08/2021, Additional history exists Influenza Vaccine (#1) 2025 , 05/15/2014, 05/15/2013 Diabetes: Urine Protein Screening 03/30/2025 03/30/2024, 06/08/2022, 01/08/2020, Additional history exists Mammogram 06/14/2025 03/14/2023 Colonoscopy 01/26/2028 01/25/2018, 01/16/2018 Colorectal Cancer Screening 01/26/2028 Procedures Procedure Name Priority Date/Time Associated Diagnosis Comments POCT GLYCOSYLATED HEMOGLOBIN (HGB A1C) Routine 08/03/2024 9:03 AM EST Type 2 diabetes mellitus with foot ulcer (CODE) (HCC) POCT MICROALBUMIN Routine 03/30/2024 9:0 0 AM EDT Type 2 diabetes mellitus without complication, unspecified whether fci insulin use (HCC) BI MAMMOGRAM SCREENING BILATERAL Routine 03/14/2023 4:25 PM EDT Screening mammogram for breast cancer DIABETIC RETINOPATHY SCREENING - OU - BOTH EYES Routine 02/20/2023 4:14 PM EDT COLONOSCOPY Routine 01/25/2018 12:00 PM EDT from Last 3 Months or Most Recently Relevant to Health Maintenance Results * POCT glycosylated hemoglobin (Hb A1C) docked device (08/03/2024 9:03 AM EST) Hemoglobin A1C 6.1 Blood Venous blood specimen / Unknown 08/03/2024 9:03 AM EST us Noemi Ramirez NP POINT OF CARE TEST ENTER/EDIT OR DERABLES Final Result * (ABNORMAL) POCT microalbumin manually resulted (03/30/2024 9:00 AM EDT) MICROALBUMIN, URINE 300 Comment:moderately increased Urine 03/30/2024 9:00 AM EDT us Noemi Ramirez NP POINT OF CARE TEST ENTER/EDIT OR DERABLES Final Result * Bilateral screening mammogram (03/14/2023 4:25 PM EDT) us Noemi Ramirez NP IMG BI PROCEDURES Final Result Performing Organization Address [facility]/State/[facility] Co de Phone Number [address] [address], * Diabetic Retinopathy Screening - OU - Both Eyes (02/20/2023 4:14 PM EDT) RESULTS NDR Comment:Nromal Anatomical Region Laterality Modality Head Other us Noemi Ramirez NP OPHTH PHOTOGRAPHY Final Result * Colonoscopy (01/25/2018 12:00 PM EDT) Anatomical Region Laterality Modality Endoscopy 01/25/2018 12:0 0 PM EDT Narrative 01/25/2018 12:00 PM EDT PERFORMED AT [facility] LOCATION:[id number] Normal Procedure Note CONVERSION, GENERIC - 12/01/2022 PERFORMED AT [facility] LOCATION:[id number] Normal us Oswaldo Grewal MD ENDOSCOPY PROCEDURE ORDERABLES Final Result from Last 3 Months or Most Recently Relevant to Health Maintenance Insurance [employer] Care Teams Spray Gun Repairer Helper Relationship Specialty Start Date End Date Oswaldo Grewal MD [address] [place] [address] PCP - General Family Medicine 12/04/22 Guerline Escobar NP [address] [place] [address] Nurse Practitioner Pulmonary Disease 09/20/23
--- OUTSIDE RECORDS SUMMARY | 2025-01-29 07:53 | XMS_ITS | Encounter Summary ---
Author Organization [facility] Address [address] [place] [address] Care Team Providers Care Salt Machine Operator Name Role Phone Oswaldo Grewal MD Primary Care Provider [phone] Guerline Escobar RAIL CAR UNLOADER Unavailable [phone] Noemi Ramirez RAIL CAR UNLOADER Unavailable Encounter Details Date Type Department Care Team ([facility] Contact Info) Description 02/28/2023 Clinisync Result Encounter [facility] External Department Unsolicited Provider, Generic External Data Social History Tobacco Use Types Packs/Day Years Used Date Smoking Tobacco: Never Smokeless Tobacco: Never Alcohol Use Standard Drinks/Week Comments Never 0 (1 standard drink = 0.6 oz pure alcohol) caffeine: 1-2 cups per day coffee, tea AUDIT-C Answer Date Recorded Q1: How often do you have a drink containing alcohol? Never 02/17/2023 Q2: How many drinks containi ng alcohol do you have on a typical day when you are drinking? Patient does not drink Q3: How often do you have si x or more drinks on one occasion? Never 02/17/2023 PHQ-2 Answer Date Recorded Patient Health Questionnaire-2 Score 0 02/17/2023 Comments No Sex and Gender Information Value Date Recorded Sex Assigned at Not on file Legal Sex Female 7:13 PM EDT Gender Identity Not on file Sexual Orientation Not on file documented as of this encounter Plan of Treatment Upcoming Encounters Date Type Department Care Team ([facility] Contact Info) Description 01/31/2025 9:00 AM EDT Office Visit [facility] [address] [place] [address] Guerline Escobar, RAIL CAR UNLOADER [address] [place] [address] 02/22/2025 8:30 AM EDT Office Visit [facility] [address] [place] [address] Christiano Gregg MD [address] [facility] [address] [address] documented as of this encounter Procedures Procedure Name Priority Date/Time Associated Diagnosis Comments XR KNEE 3V AP/LAT/XAVIER ELI 02/28/2023 10:39 AM EDT documented in this encounter Results * XR KNEE 3V AP/LAT/XAVIER ELI (02/28/2023 10:39 AM EDT) Anatomical Region Laterality Modality Other 02/28/2023 10:3 9 AM EDT Narrative 02/28/2023 12:05 PM EDT * * *Final Report* * * DATE OF EXAM: Feb 28 2023 10:39AM [id number] - XR KNEE 3V AP/LAT/XAVIER ELI / PROCEDURE REASON: multiple diagnoses * * * * Physician Interpretation * * * * HISTORY (as given from clinical provider): Status post revision of total knee, right Status post left knee replacement . Additional history provided by the performing technologist (if any): Post op TECHNIQUE: XR KNEE 3V AP/LAT/XAVIER ELI COMPARISON: 09/07/2022 RESULT: Status post bilateral total knee arthroplasty. Normal postoperative appearance bilaterally. No other significant abnormality. Instructor Dancing: PSCB Transcribe Date/Time: Feb 28 2023 12:02P Dictated by : RACHEAL BENITEZ MD This examination was interpreted and the report reviewed and electronically signed by: RACHEAL BENITEZ MD on Feb 28 2023 12:02PM EST [id number] Procedure Note Radiology, Radiologist, - 02/28/2023 * * *Final Report* * * DATE OF EXAM: Feb 28 2023 10:39AM [id number] - XR KNEE 3V AP/LAT/XAVIER ELI / PROCEDURE REASON: multiple diagnoses * * * * Physician Interpretation * * * * HISTORY (as given from clinical provider): Status post revision of total knee, right Status post left knee replacement . Additional history provided by the performing technologist (if any): Post op TECHNIQUE: XR KNEE 3V AP/LAT/XAVIER ELI COMPARISON: 09/07/2022 RESULT: Status post bilateral total knee arthroplasty. Normal postoperative appearance bilaterally. No other significant abnormality. Instructor Dancing: PSCB Transcribe Date/Time: Feb 28 2023 12:02P Dictated by : RACHEAL BENITEZ MD This examination was interpreted and the report reviewed and electronically signed by: RACHEAL BENITEZ MD on Feb 28 2023 12:02PM EST [id number]^ACN us Generic External Data Provider [facility] Final Result documented in this encounter Visit Diagnoses Not on filedocumented in this encounter Care Teams Salt Machine Operator Relationship Specialty Start Date End Date Oswaldo Grewal MD [address] [place] [address] PCP - General Family Medicine 12/04/22 Guerline Escobar NP [address] [place] [address] Nurse Practitioner Pulmonary Disease 09/20/23 Noemi Ramirez NP [address] [place] [address] Nurse Practitioner Family Medicine 09/20/23 01/12/25 documented as of this encounter
--- OUTSIDE RECORDS SUMMARY | 2025-01-29 07:53 | XMS_ITS | Encounter Summary ---
Author Organization [facility] Address [address] [place] [address] Care Team Providers Care Lotus Notes Developer Name Role Phone Oswaldo Grewal MD Primary Care Provider [phone] Danilo Cage MD Unavailable [phone] Source Comments In the event this information is protected by the Federal Confidentiality of Alcohol and Drug AbusePatient Records regulations: The Federal rules restrict any use of the information to criminally investigate or prosecute any alcohol or drug abuse patient.[facility] Reason for Visit * Reason Comments Radiology XR Encounter Details Date Type Department Care Team (Late st Contact Info) Description 07/29/2023 Radiology Radiology [address] [place] [address] Dafne Davenport, RT(R) Radiology XR Social History Tobacco Use Types Packs/Day Years [...] (1-100), lower number is lower ri sk 91 11/29/2022 State Score (1-10), lower number is lower risk 9 11/29/2022 Data from: https://www.neighborhoodatlas.medicine.[facility].edu/. Last address used for calculation [address] 11/29/2022 Comments No Sex and Gender Information Value Date Recorded Sex Assigned at Not on file Legal Sex Female 9:57 AM EDT Gender Identity Not on file Sexual Orientation Not on file documented as of this encounter Functional Status * Are you deaf or do you have serious difficulty hearing? Answer Date of Assessment Author No 07/03/2014 9:39 AM Regina Hale MA * Are you blind or do you have serious difficulty seeing, even when wearing glasses? Answer Date of Assessment Author No 07/03/2014 9:39 AM Regina Hale MA * Do you have serious difficulty walking or climbing stairs? Answer Date of Assessment Author No 07/03/2014 9:39 AM Regina Hale MA * Do you have difficulty dressing or bathing? Answer Date of Assessment Author No 07/03/2014 9:39 AM Regina Hale MA * Because of a physical, mental, [...] Entry Date Author No 07/03/2014 9:39 AM EST Regina Reyes MA documented in this encounter Progress Notes * Dafne Davenport RT(R) - 07/29/2023 10:36 AM EST Radiology Service Progress Note PATIENT NAME: Ledy Johnson DATE OF SERVICE: July 29, 2023 [...] Ray(s): Knee, AP / Lat / Merchant Bilateral and Wt. Bearing PERIPHERAL IV DATA: Not applicable SIGNED BY: RT Lauren(R) July 29, 2023 10:36 AM documented in this encounter Plan of Treatment Not on file documented as of this encounter Visit Diagnoses Not on filedocumented in this encounter Care Teams Lotus Notes Developer Relationship Specialty Start Date End Date Oswaldo Grewal MD [address] [place] [place] [address] PCP - General Family Medicine 06/09/18 Danilo Cage MD [address] [place] [address] Cardiology 08/04/22 documented as of this encounter
--- OUTSIDE RECORDS SUMMARY | 2025-01-29 07:53 | XMS_ITS | Encounter Summary ---
Author Organization [facility] Address [address] [facility] [place] [address] Care Team Providers Care Shop Teacher Name Role Phone Oswaldo Grewal MD Primary Care Provider [phone] Guerline Escobar INSTRUCTOR APPAREL MANUFACTURE Unavailable [phone] Noemi Ramirez INSTRUCTOR APPAREL MANUFACTURE Unavailable Encounter Details Date Type Department Care Team (Late st Contact Info) Description 01/08/2025 Abstract [facility] [address] [place] [address] Oswaldo Grewal MD [address] [place] [address] Social History Tobacco Use Types Packs/Day Years [...] Visit [facility] [address] [place] [address] Guerline Escobar, KEO [address] [place] [address] 02/22/2025 8:30 AM EDT Office Visit [facility] [address] [place] [address] Christiano Gregg MD [address] [facility] [address] [id number] documented as of this encounter Visit Diagnoses Not on filedocumented in this encounter Care Teams Shop Teacher Relationship Specialty Start Date End Date Oswaldo Grewal MD [address] [place] [id number] PCP - General Family Medicine 12/04/22 Guerline Escobar, INSTRUCTOR APPAREL MANUFACTURE [address] [place] [address] Nurse Practitioner Pulmonary Disease 09/20/23 Noemi Ramirez NP [address] [place] [address] Nurse Practitioner Family Medicine 09/20/23 01/12/25 documented as of this encounter
--- OUTSIDE RECORDS SUMMARY | 2025-01-29 07:53 | XMS_ITS | Encounter Summary ---
Author Organization [facility] Address [address] [facility] [place] [address] Care Team Providers Care Entry Level Installation Technician Name Role Phone Oswaldo Grewal MD Primary Care Provider [phone] Guerline Escobar MICA LAMINATING MACHINE FEEDER Unavailable [phone] Noemi Ramirez NP Unavailable Encounter Details Date Type Department Care Team (Late st Contact Info) Description 01/08/2025 Abstract [facility] [address] [place] [address] Guerline Escobar, MICA LAMINATING MACHINE FEEDER [address] [place] [address] Social History Tobacco Use Types Packs/Day Years [...] Visit [facility] FM [address] [place] [address] Guerline Escobar NP [address] [place] [address] 02/22/2025 8:30 AM EDT Office Visit [facility] [address] [place] [address] Christiano Gregg MD 7337 [facility] [address] [id number] documented as of this encounter Visit Diagnoses Not on filedocumented in this encounter Care Teams Entry Level Installation Technician Relationship Specialty Start Date End Date Oswaldo Grewal MD [address] [place] [address] PCP - General Family Medicine 12/04/22 Guerline Escobar NP [address] [place] [address] Nurse Practitioner Pulmonary Disease 09/20/23 Noemi Ramirez NP [address] [place] [address] Nurse Practitioner Family Medicine 09/20/23 01/12/25 documented as of this encounter
--- OUTSIDE RECORDS SUMMARY | 2025-01-29 07:53 | XMS_ITS | Encounter Summary ---
Author Organization [facility] Address [address] [place] [address] Care Team Providers Care Communication Lecturer Name Role Phone Oswaldo Grewal MD Primary Care Provider [phone] Danilo Cage MD Unavailable [phone] Source Comments In the event this information is protected by the Federal Confidentiality of Alcohol and Drug AbusePatient Records regulations: The Federal rules restrict any use of the information to criminally investigate or prosecute any alcohol or drug abuse patient.[facility] Reason for Visit * Reason Comments Radiology XR Encounter Details Date Type Department Care Team (Late st Contact Info) Description 08/03/2021 Radiology Radiology [address] [place] [address] Aline Stone, RT(R) Radiology XR Social History Tobacco Use [...] (1-100), lower number is lower ri sk Not on file 06/24/2020 State Score (1-10), lower number is lower risk N ot on file 06/24/2020 Data from: https://www.neighborhoodatlas.medicine.[facility].edu/. Last address used for calculation Not on file 06/24/2020 Comments No Sex and Gender Information Value Date Recorded Sex Assigned at Not on file Legal Sex Female 9:57 AM EDT Gender Identity Not on file Sexual Orientation Not on file COVID-19 Exposure Response Date Recorded In the last month, have you been in contact with someone who was confirmed or suspected to have Coronavirus / COVID-19? No / Unsure 08/03/2021 9:10 AM EST documented as of this encounter [...] Regina Reyes MA * Do you have difficulty dressing [...] Progress Notes * Aline Stone RT(R) - 08/03/2021 9:35 AM EST Radiology Service Progress Note PATIENT NAME: Ledy Johnson DATE OF SERVICE: August 03, 2021 TIME: 9:35 AM PATIENT IDENTITY VERIFICATION COMPLETED USING TWO [...] DATA: Not applicable SIGNED BY: RT Casandra(R) August 03, 2021 9:35 AM documented in this encounter Plan of Treatment Not on file documented as of this encounter Visit Diagnoses Not on filedocumented in this encounter Additional Health Concerns Infection Onset Date Last Indicated Resolved Time COVID-19 Rule-Out 08/19/2022 08/19/2022 08/19/2022 4:20 PM EST documented as of this encounter Care Teams Communication Lecturer Relationship Specialty Start Date End Date Oswaldo Grewal MD [address] [place] [address] PCP - General Family Medicine 06/09/18 Danilo Cage MD [address] [place] [address] Cardiology 08/04/22 documented as of this encounter
--- OUTSIDE RECORDS SUMMARY | 2025-01-29 07:53 | XMS_ITS | Encounter Summary ---
Author Organization [facility] Address [address] [facility] [place] [address] Care Team Providers Care Net Application Architect Name Role Phone Oswaldo Grewal MD Primary Care Provider [phone] Guerline Escobar COIL CONNECTOR REPAIRER Unavailable [phone] Encounter Details Date Type Department Care Team (Late Contact Info) Description 01/13/2025 Abstract [facility] [address] [place] [address] Guerline Escobar, COIL CONNECTOR REPAIRER [address] [place] [address] Social History Tobacco Use Types Packs/Day Years [...] Encounters Date Type Department Care Team (Late Contact Info) Description 01/31/2025 9:00 AM EDT Office Visit [facility] [address] [place] [address] Guerline Escobar, KEO [address] [place] [address] 02/22/2025 8:30 AM EDT Office Visit [facility] [address] [place] [address] Christiano Gregg MD 2440 [facility] [address] [address] documented as of this encounter Visit Diagnoses Not on filedocumented in this encounter Care Teams Net Application Architect Relationship Specialty Start Date End Date Oswaldo Grewal MD [address] [place] [address] PCP - General Family Medicine 12/04/22 Guerline Escobar, COIL CONNECTOR REPAIRER [address] [place] [address] Nurse Practitioner Pulmonary Disease 09/20/23 documented as of this encounter
--- OUTSIDE RECORDS SUMMARY | 2025-01-29 07:53 | XMS_ITS | Encounter Summary ---
Author Organization [facility] Address [address] [place] [address] Phone Care Team Providers Care Solutions Development Analyst Name Role Phone Oswaldo Grewal MD Primary Care Provider [phone] Encounter Details Date Type Department Care Team (Late st Contact Info) Description 03/02/2022 Orders Only [facility] [address] [place] [address] Conversion, Onbase Social History Tobacco Use Types Packs/Day Years Used Date Smoking Tobacco: Never Assessed Comments Unknown Sex and Gender Information Value Date Recorded Sex Assigned at Not on file Legal Sex Female 9:19 AM EST Gender Identity Not on file Sexual Orientation Not on file documented as of this encounter Plan of Treatment Upcoming Encounters Date Type Department Care Team (Late st Contact Info) Description 02/04/2025 8:45 AM EDT Appointment [address] [place] [address] 03/15/2025 9:00 AM EDT Office Visit [address] [place] [address] Danilo Cage MD 703 [facility] 2, [address] [address] Scheduled Orders Name Type Priority Associated Diagnoses Orde r Schedule OUTSIDE LAB SCAN Lab Ordered: 03/02/2022 documented as of this encounter Visit Diagnoses Not on filedocumented in this encounter Care Teams Solutions Development Analyst Relationship Specialty Start Date End Date Oswaldo Grewal MD [address] [place] [address] PCP - General 12/18/18 documented as of this encounter
--- OUTSIDE RECORDS SUMMARY | 2025-01-29 07:53 | XMS_ITS | Encounter Summary ---
Author Organization [facility] Address [address] [facility] [place] [address] Care Team Providers Care Sort Worker Name Role Phone Oswaldo Grewal MD Primary Care Provider [phone] Guerline Escobar MINIATURE SET BUILDER Unavailable [phone] Noemi Ramirez NP Unavailable Encounter Details Date Type Department Care Team (Late Contact Info) Description 11/25/2022 Abstract [facility] [address] [place] [address] Artis Sorensen, PT [address] [place] [address] Social History Tobacco Use Types Packs/Day Years Used Date Smoking Tobacco: Never Tobacco Cessation:Counseling Given: Not Answered [...] Visit [facility] [address] [place] [address] Guerline Escobar MINIATURE SET BUILDER [address] [place] [address] 02/22/2025 8:30 AM EDT Office Visit [facility] [address] [facility] [place] [address] Christiano Gregg MD [address] [facility] [address] [phone] documented as of this encounter Visit Diagnoses Not on filedocumented in this encounter Care Teams Sort Worker Relationship Specialty Start Date End Date Oswaldo Grewal MD [address] [place] [address] PCP - General Family Medicine 12/04/22 Guerline Escobar NP [address] [place] [address] Nurse Practitioner Pulmonary Disease 09/20/23 Noemi Ramirez NP [address] [place] [address] Nurse Practitioner Family Medicine 09/20/23 01/12/25 documented as of this encounter
--- OUTSIDE RECORDS SUMMARY | 2025-01-29 07:53 | XMS_ITS | Encounter Summary ---
Author Organization [facility] Address [address] [place] [address] Phone Care Team Providers Care Motel Clerk Name Role Phone Oswaldo Grewal MD Primary Care Provider [phone] Encounter Details Date Type Department Care Team (Late st Contact Info) Description 01/29/2022 Orders Only [facility] [address] [place] [address] Conversion, Onbase Social History Tobacco Use Types [...] Info) Description 02/04/2025 8:45 AM EDT Appointment [address] [place] [address] 03/15/2025 9:00 AM EDT Office Visit [address] [place] [address] Danilo Cage MD 703 [facility] 2, [address] [address] Scheduled Orders Name Type Priority Associated Diagnoses Orde r Schedule OUTSIDE LAB SCAN Lab Ordered: 01/29/2022 documented as of this encounter Visit Diagnoses Not on filedocumented in this encounter Care Teams Motel Clerk Relationship Specialty Start Date End Date Oswaldo Grewal MD [address] [place] [address] PCP - General 12/18/18 documented as of this encounter
--- OUTSIDE RECORDS SUMMARY | 2025-01-29 07:53 | XMS_ITS | Encounter Summary ---
Author Organization [facility] Address [address] [place] [address] Care Team Providers Care Stitcher Around Name Role Phone Oswaldo Grewal MD Primary Care Provider [phone] Guerline Escobar INSTRUCTOR ROBOTICS Unavailable [phone] Noemi Ramirez INSTRUCTOR ROBOTICS Unavailable Encounter Details Date Type Department Care Team ([facility] Contact Info) Description 07/29/2023 Clinisync Result Encounter [facility] External Department Unsolicited [...] Upcoming Encounters Date Type Department Care Team ([facility] Contact Info) Description 01/31/2025 9:00 AM EDT Office Visit [facility] [address] [place] [address] Guerline Escobar, INSTRUCTOR ROBOTICS [address] [place] [address] 02/22/2025 8:30 AM EDT Office Visit [facility] [address] [place] [address] Christiano Gregg MD 5316 [facility] [address], [place] [address] documented as of this encounter Procedures Procedure Name Priority Date/Time Associated Diagnosis Comments XR KNEE 3V AP/LAT/XAVIER ELI 07/29/2023 10:37 AM EST documented in this encounter Results * XR KNEE 3V AP/LAT/XAVIER ELI (07/29/2023 10:37 AM EST) Anatomical Region Laterality Modality Other 07/29/2023 10:3 7 AM EST Narrative 07/29/2023 3:15 PM EST * * *Final Report* * * DATE OF EXAM: Jul 29 2023 10:37AM [id number] - XR KNEE 3V AP/LAT/XAVIER ELI / PROCEDURE REASON: multiple diagnoses * * * * Physician Interpretation * * * * EXAM: XR KNEE 3V AP/LAT/XAVIER ELI HISTORY: Status post revision of total knee, right Status post left knee replacement . BILATERAL KNEE PAIN, POST OP STATUS OF BILATERAL KNEE REPLACEMENTS TECHNIQUE: XR KNEE 3V AP/LAT/XAVIER ELI Laterality: NOT APPLICABLE Number of different views (projections): 3 COMPARISON: 02/28/2023. RESULT: BONES: Normal bone density. Bilateral total knee arthroplasties. Right knee arthroplasty is constrained. No perihardware lucency or fracture. JOINT SPACES: Maintained. No dislocation. No erosion. Small bilateral suprapatellar joint effusions. SOFT TISSUES: Unremarkable. IMPRESSION: Stable bilateral knee arthroplasties. Ballet Company Member: [employer] Transcribe Date/Time: Jul 29 2023 3:07P Dictated by : JAIR JOSHUA MD This examination was interpreted and the report reviewed and electronically signed by: JAIR JOSHUA MD on Jul 29 2023 3:13PM EST [id number] Procedure Note Radiology, Radiologist, - 07/29/2023 * * *Final Report* * * DATE OF EXAM: Jul 29 2023 10:37AM [id number] - XR KNEE 3V AP/LAT/XAVIER ELI / PROCEDURE REASON: multiple diagnoses * * * * Physician Interpretation * * * * EXAM: XR KNEE 3V AP/LAT/XAVIER ELI HISTORY: Status post revision of total knee, right Status post left knee replacement . BILATERAL KNEE PAIN, POST OP STATUS OF BILATERAL KNEE REPLACEMENTS TECHNIQUE: XR KNEE 3V AP/LAT/XAVIER ELI Laterality: NOT APPLICABLE Number of different views (projections): 3 COMPARISON: 02/28/2023. RESULT: BONES: Normal bone density. Bilateral total knee arthroplasties. Right knee arthroplasty is constrained. No perihardware lucency or fracture. JOINT SPACES: Maintained. No dislocation. No erosion. Small bilateral suprapatellar joint effusions. SOFT TISSUES: Unremarkable. IMPRESSION: Stable bilateral knee arthroplasties. Ballet Company Member: [employer] Transcribe Date/Time: Jul 29 2023 3:07P Dictated by : JAIR JOSHUA MD This examination was interpreted and the report reviewed and electronically signed by: JAIR JOSHUA MD on Jul 29 2023 3:13PM EST [id number] us Generic External Data Provider [facility] Final Result documented in this encounter Visit Diagnoses Not on filedocumented in this encounter Care Teams Stitcher Around Relationship Specialty Start Date End Date Oswaldo Grewal MD [address] [place] [address] PCP - General Family Medicine 12/04/22 Guerline Escobar NP [address] [place] [address] Nurse Practitioner Pulmonary Disease 09/20/23 Noemi Ramirez NP [address] [place] [address] Nurse Practitioner Family Medicine 09/20/23 01/12/25 documented as of this encounter
--- OUTSIDE RECORDS SUMMARY | 2025-01-29 07:53 | XMS_ITS | Encounter Summary ---
Author Organization [facility] Address [address] [place] [address] Phone Care Team Providers Care Company Tanker Truck Driver Name Role Phone Oswaldo Grewal MD Primary Care Provider [phone] Reason for Visit * Reason Onset Date Comments Med Refill 01/25/2025 Encounter Details Date Type Department Care Team (Late st Contact Info) Description 01/25/2025 Refill [place] [address] [place] [address] Yue Hall LPN Essential hypertension, benign Social History Tobacco Use Types Packs/Day Years Used Date Smoking Tobacco: Never Alcohol Use Standard Drinks/Week Comments Never 0 (1 standard drink = 0.6 oz pur e alcohol) Comments Unknown Sex and Gender Information Value Date Recorded Sex Assigned at Not on file Legal Sex Female 9:19 AM EST Gender Identity Not on file Sexual Orientation Not on file documented as of this encounter Miscellaneous Notes * Telephone Encounter - Yue Hall LPN - 01/25/2025 3:35 PM EDT Rx sent to [facility]. Aug visit pendign documented in this encounter Plan of Treatment Upcoming Encounters Date Type Department Care Team (Late st Contact Info) Description 02/04/2025 8:45 AM EDT Appointment [address] [facility] [address] [place] [address] 03/15/2025 9:00 AM EDT Office Visit [facility] [address] [facility] [address] [place] [address] Danilo Cage MD [facility]03 [facility], [address] [place], [place] [phone] documented as of this encounter Visit Diagnoses Diagnosis Essential hypertension, benign documented in this encounter Care Teams Company Tanker Truck Driver Relationship Specialty Start Date End Date Oswaldo Grewal MD [address] [place] [address] PCP - General 12/18/18 documented as of this encounter
--- OUTSIDE RECORDS SUMMARY | 2025-01-29 07:53 | XMS_ITS | Clinical Summary ---
Author Organization [facility] Address [address] [place] [address] Phone Care Team Providers Care Gambling Counsellor Name Role Phone Oswaldo Grewal MD Primary Care Provider [phone] Allergies Active Allergy Reactions Criticality Noted Date Comments Brimonidine Unknown 08/04/2023 Dorzolamide Unknown 08/04/2023 Dorzolamide-Timolol Unknown 08/04/2023 Levalbuterol Unknown 08/04/2023 Penicillins Unknown 08/04/2023 Timolol Unknown 08/04/2023 Medications amLODIPine (Norvasc) 10 mg tablet Take 1 tablet (10 mg) by mouth once daily. Active aspirin 81 mg EC tablet Take 1 tablet (81 mg) by mouth once daily. Active dicyclomine (Bentyl) 20 mg tablet Take 1 tablet (20 mg) by mouth 2 times a day. Active gabapentin (Neurontin) 100 mg capsule Take 2 capsules (200 mg) by mouth 2 times a day. Active levothyroxine (Synthroid, Levoxyl) 100 mcg tablet Take 1 tablet (100 mcg) by mouth once daily in the morning. Take before meals. Active meloxicam (Mobic) 15 mg tablet Take 1 tablet (15 mg) by mouth once daily. Active rOPINIRole (Requip) 0.25 mg tablet Take 1 tablet (0.25 mg) by mouth see administration instructions. Take 1 in the am, 1 at lunch, 2 at dinner and 2 at bedtime Active acetaminophen (Tylenol) 500 mg tablet Take 1 tablet (500 mg) by mouth every 6 hours if needed for mild pain (1 - 3). Active prednisoLONE acetate (Pred-Forte) 1 % ophthalmic suspension Administer 1 drop into both eyes 4 times a day. Active brimonidine (AlphaGAN) 0.2 % ophthalmic solution Administer 1 drop into both eyes 2 times a day. Active latanoprost (Xalatan) 0.005 % ophthalmic solution Administer 1 drop into both eyes once daily at bedtime. Active chlorthalidone (Hygroton) 25 mg tabletIndications :Essential hypertension, benign TAKE 1 TABLET BY MOUTH DAILY 90 tablet 3 12/07/19 24 Active atorvastatin (Lipitor) 10 mg tabletIndications :Mixed hyperlipidemia Take 1 tablet (10 mg) by mouth once daily. 90 tablet 3 03/16/20 24 025 Active valsartan (Diovan) 320 mg tabletIndications :Essential hypertension, benign Take 1 tablet (320 mg) by mouth once daily. 90 tablet 1 01/26/20 25 026 Active valsartan (Diovan) 320 mg tabletIndications :Essential hypertension, benign Take 1 tablet (320 mg) by mouth once daily. 90 tablet 3 03/16/20 24 025 Disconti nued(Reo rder) Active Problems Problem Noted Date Diagnosed Date Never smoked tobacco 03/16/2024 BMI 35.0-35.9,adult 09/09/2023 Cataract, nuclear sclerotic, both eyes Chronic pain of both knees 08/04/2023 Dyspnea 08/04/2023 Essential hypertension, benign 08/04/2023 Primary open angle glaucoma (POAG) of both eyes, mild stage 08/04/2023 S/P TAVR (transcatheter aortic valve replacement ) 08/04/2023 Mixed hyperlipidemia 08/04/2023 Encounters Date Type Department Care Team Description 01/25/2025 [facility] [address] [place] [address] Yue Hall LPN Essential hypertension, benign from Last 3 Months Immunizations Immunization Administration Dates Next Due Moderna SARS-CoV-2 Vaccination 10/30/2020,2020 Pfizer Purple Cap SARS-CoV-2 07/07/2021 Family History Medical History Relation Name Comments Glaucoma Father Stroke Father Glaucoma Mother Heart failure Mother Heart murmur Sister Relation Name Status Comments Father Mother Sister Social History Tobacco Use Types Packs/Day Years [...] Sign Reading Time Taken Comments Blood Pressure 138/64 03/16/2024 10:01 AM EDT Pulse 64 03/16/2024 10:01 AM EDT Temperature - - Respiratory Rate - - Oxygen Saturation 98% 03/08/2022 10:28 AM EDT Inhaled Oxygen Concentration - - Weight 103 kg (227 lb 6.4 oz) 03/16/2024 10:01 A M EDT Height 175.3 cm (5' 9 ) 03/16/2024 10:01 AM EDT Body Mass Index 33.58 03/16/2024 10:01 AM EDT Plan of Treatment Upcoming Encounters Date Type Department Care Team (Late st Contact Info) Description 02/04/2025 8:45 AM EDT Appointment [address] [place] [phone] 03/15/2025 9:00 AM EDT Office Visit [address] [phone] Danilo Cage MD 703 [facility] 2, [address] [address] Health Maintenance Due Date Last Done Comments CT Colonography 1961 FIT-DNA (Cologuard) 1961 FIT 1961 HIV Screening 1961 Lipid Panel 1961 Sigmoidoscopy 1961 TSH Level 1961 MMR Vaccines (1 of 1 - Standard series) 1962 Hepatitis C Screening 1979 Cervical Cancer Screening 1982 HPV/Cotest 1982 Pap Smear 1982 DTaP/Tdap/Td Vaccines (1 - Tdap) 08/13/2010 08/12/2010 Pneumococcal Vaccine (1 of 1 - PCV) 2011 Zoster Vaccines (1 of 2) 2011 RSV High Risk: (Elderly (60+) or Population) (1 - Risk 60-74 years 1-dose series) 2021 Mammogram 03/14/2024 03/14/2023 COVID-19 Vaccine ( - season) 2024 07/07/2021, 10/30/2020, 10/03/2020 Yearly Adult Physical 04/21/2024 04/20/2023 Influenza Vaccine (#1) 2025 05/15/2014, 2012 Diabetes Screening 03/20/2025 03/20/2022, 0 03/19/2022, 12/09/2021, Additional history exists Colonoscopy 01/26/2028 01/25/2018 Colorectal Cancer Screening 01/26/2028 HIB Vaccines Aged Out No longer eligi ble based on patient's age to complete this topic HPV Vaccines (No Doses Required) Completed Hepatitis A Vaccines Aged Out No long er eligible based on patient's age to complete this topic Hepatitis B Vaccines Aged Out No long er eligible based on patient's age to complete this topic IPV Vaccines Aged Out No longer eligi ble based on patient's age to complete this topic Meningococcal Vaccine Aged Out No laila varsha eligible based on patient's age to complete this topic Rotavirus Vaccines Aged Out No longer eligible based on patient's age to complete this topic Procedures Procedure Name Priority Date/Time Associated Diagnosis Comments RENAL FUNCTION PANEL Routine 03/20/2022 2:26 AM EDT from Last 3 Months or Most Recently Relevant to Health Maintenance Results * (ABNORMAL) Renal Function Panel (03/20/2022 2:26 AM EDT) Glucose 127(H) 74 - 99 mg/dL [facility] Sodium 140 136 - 145 mmol/L [facility] Potassium 4.2 3.5 - 5.3 mmol/L [facility] Chloride 106 98 - 107 mmol/L [facility] Bicarbonate 24 21 - 32 mmol/L [facility] Anion Gap 14 10 - 20 mmol/L [facility] Urea Nitrogen 15 6 - 23 mg/dL [facility] Creatinine 0.98 0.50 - 1.05 mg/dL [facility] GFR Female 66 >90 mL/min/1. 73m2 [facility] Comment: CALCULATIONS OF ESTIMATED GFR ARE PERFORMED USING THE 2020 CKD-EPI STUDY REFIT EQUATION WITHOUT THE RACE VARIABLE FOR THE IDMS-TRACEABLE CREATININE METHODS. https://jasn.asnjournals.org/content/early/ASN.9775520080 Calcium 8.8 8.6 - 10.6 mg/dL [facility] Phosphorus 5.0(H) 2.5 - 4.9 mg/dL [facility] Comment: The performance characteristics of phosphorus testing in heparinized plasma have been validated by the individual laboratory site where testing is performed. Testing on heparinized plasma is not approved by the FDA; however, such approval is not necessary. Albumin 4.0 3.4 - 5.0 g/dL [facility] 03/20/2022 2:26 AM EDT 03/20/2022 3:08 AM EDT us Zafar Nash [employer] [facility] BLOOD ORDERABLES F inal Result [facility] [id number] from Last 3 Months or Most Recently Relevant to Health Maintenance Insurance [facility] [employer] [address] [employer] Care Teams Gambling Counsellor Relationship Specialty Start Date End Date Oswaldo Grewal MD [address] [place] [address] PCP - General 12/18/18
--- OUTSIDE RECORDS SUMMARY | 2025-01-29 07:53 | XMS_ITS | Encounter Summary ---
Author Organization [facility] Address [address] [place] [address] Phone Care Team Providers Care Poultry Tender Name Role Phone Oswaldo Grewal MD Primary Care Provider [phone] Encounter Details Date Type Department Care Team (Late st Contact Info) Description 09/17/2022 Orders Only [facility] [address] [place] [address] Conversion, Onbase Social History Tobacco Use Types [...] Info) Description 02/04/2025 8:45 AM EDT Appointment [address] [place] [phone] 03/15/2025 9:00 AM EDT Office Visit [address] [place] [phone] aDnilo Cage MD 703 [facility] 2, [address] [address] Scheduled Orders Name Type Priority Associated Diagnoses Orde r Schedule OUTSIDE LAB SCAN Lab Ordered: 09/17/2022 documented as of this encounter Visit Diagnoses Not on filedocumented in this encounter Care Teams Poultry Tender Relationship Specialty Start Date End Date Oswaldo Grewal MD [address] [place] [phone] PCP - General 12/18/18 documented as of this encounter
--- OUTSIDE RECORDS SUMMARY | 2025-01-29 07:53 | XMS_ITS | Clinical Summary ---
Author Organization [facility] Address [address] [place] [address] Care Team Providers Care Lace Cutter Name Role Phone Oswaldo Grewal MD Primary Care Provider [phone] Danilo Cage MD Unavailable [phone] Allergies Active Allergy Reactions Criticality Noted Date Comments Latex Intolerance 06/18/2013 States she cannot have anything with elastic or latex, She gets a severe rash and areas of breakdown and pus. Penicillins Rash 06/18/2013 Had rash once years ago and does not remember if she has had PCN since then. Medications dicyclomine 20 mg tablet Take 20 mg by mouth twice daily. Active atorvastatin (LIPITOR) 10 mg tablet TK 1 T PO QD 5 03/22/20 18 Active rOPINIRole (REQUIP) 0.25 mg tablet Take 1 tablet by mouth three times daily. 10/17/19 20 Active Additional Information Patient taking differently:0.25 mg ORAL 3 TIMES DAILY,takes 2 in am , 1 with lunch, 1 with dinner and 2 @ HS, Reported on 09/02/2023 gabapentin (NEURONTIN) 100 mg capsule Take 1 capsule by mouth twice daily for 30 days. 60 capsule 10/17/19 20 Active Additional Information Patient taking differently: 200 mgORAL 2 TIMES DAILY, Reported on 08/19/2022 levothyroxine (SYNTHROID) 100 mcg tablet TAKE 1 TABLET BY MOUTH EVERY DAY IN THE MORNING ON AN EMPTY STOMACH 07/09/20 22 Active terbinafine HCl (LAMISIL) 250 mg tablet 08/02/19 23 Active valsartan (DIOVAN) 320 mg tablet Take 320 mg by mouth once daily. 07/29/19 23 Active amLODIPine (NORVASC) 5 mg tablet Take 5 mg by mouth once daily. 05/05/20 22 Active clindamycin (CLEOCIN HCL) 300 mg capsuleIndications:S /P right unicompartmental knee replacement,Status post left knee replacement TWO TABS ONE HOUR PRIOR TO DENTAL PROCEDURE AND TWO TABS SIX HOURS AFTER THE DENTAL PROCEDURE 4 capsule 1 03/02/20 23 Active acetaZOLAMIDE SR (DIAMOX SEQUELS) 500 mg capsule Take 500 mg by mouth two times a day. 07/25/19 24 Active brimonidine (ALPHAGAN) 0.2 % ophthalmic solution Use 1 Drop in both eyes two times a day. 06/16/20 23 Active chlorthalidone (HYGROTON) 25 mg tablet Take 1 tablet by mouth every afternoon. 05/28/20 23 Active latanoprost (XALATAN) 0.005 % ophthalmic solution Use 1 Drop in both eyes once daily. 07/17/20 23 Active prednisoLONE acetate (PRED FORTE) 1 % ophthalmic suspension Use 1 Drop in both eyes every Tuesday, Tuesday, and Tuesday. 06/16/20 23 Active JANUVIA 25 mg tablet Take 25 mg by mouth once daily. 06/28/20 23 Active diclofenac, EC, (VOLTAREN) 50 mg EC tablet Take 1 tablet by mouth two times a day with meals. 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 Danilo Cage, ( last visit 04/01/2022, next visit 02/2023) Per office Visit: Patient requesting preoperative risk assessment for knee surgery. 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 Weight reduction encouraged. Assessment & Plan (12/09/2021 10:57 AM EDT): Assessment: Body mass index is 37.1 kg/m . S/P TKR o/90 days 07/03/2014 Acute shoulder bursitis 09/19/2013 Status post left knee replacement 09/19/2013 OA (osteoarthritis) of knee 06/08/2013 HTN (hypertension) Assessment & Plan (08/05/2022 9:04 AM EST): Assessment: Managed with med Date: BP: 08/05/2022 159/62 Stable. Assessment & Plan (12/09/2021 10:56 AM EDT): Assessment: Stable Continue current medications Assessment & Plan (01/08/2020 12:18 PM EDT): Assessment: BP 157/61- advised to take Amlodipine AM of surgery IBS (irritable bowel syndrome) Assessment & Plan (08/05/2022 9:05 AM EST): Assessment: Pt. reports stable with medication Assessment & Plan (12/09/2021 10:56 AM EDT): Assessment: Controlled on medication Assessment & Plan (01/08/2020 12:18 PM EDT): Assessment: on Bentyl HLD (hyperlipidemia) Assessment & Plan (08/05/2022 9:05 AM EST): Assessment: managed with statin Assessment & Plan (12/09/2021 10:55 AM EDT): Assessment: Stable Continue statin Assessment & Plan (01/08/2020 12:18 PM EDT): Assessment: on statin Obesity Assessment & Plan (01/08/2020 12:19 PM EDT): Assessment: BMI 36.35 Resolved Problems Problem Noted Date Diagnosed Date Resolved Date Acute cystitis without hematuria 08/09/2022 08/19/2022 Assessment & Plan (08/09/2022 12:58 PM EST): Assessment: per Urine Culture, Pt. treated per susceptibility Pt. notified; Pt. reports is Asymptomatic Effusion of left knee 04/30/20202022 Knee pain 07/05/2013 08/19/2022 Family History Medical History Relation Comments Heart disease Father Heart disease Mother Relation Status Comments Father Mother Social History Tobacco Use Types Packs/Day Years [...] is lower risk 9 11/29/2022 Data from: https://www.neighborhoodatlas.medicine.[facility].edu/. Last address used for calculation [address] 11/29/2022 Comments No Sex and Gender Information Value Date Recorded Sex Assigned at Not on file Legal Sex Female 9:57 AM EDT Gender Identity Not on file Sexual Orientation Not on file Last Filed Vital Signs Vital Sign Reading Time Taken Comments Blood Pressure 138/50 08/20/2022 7:32 AM EST Pulse 61 08/20/2022 7:32 AM EST Temperature 36.6 C (97.9 F) 08/20/2022 7:32 AM EST Respiratory Rate 18 08/20/2022 7:32 AM EST Oxygen Saturation 98% 08/20/2022 7:32 AM EST Inhaled Oxygen Concentration - - Weight 106.1 kg (234 lb) 07/29/2023 12:30 PM EST Height 172.7 cm (5' 7.99 ) 08/19/2022 9:03 AM ES T Body Mass Index 35.59 08/19/2022 9:03 AM EST Plan of Treatment Health Maintenance Due Date Last Done Comments Annual PCP Team Chronic Dise ase Visit 1979 Anxiety Screening 1979 Depression Screening 1979 HIV Screening 1979 Hepatitis C Screening 1979 Cervical Cancer Screening [address] Colonography 2006 Cologuard (FIT-DNA) 2006 Colonoscopy 2006 Colorectal Cancer Screening 2006 Fecal Occult Blood 2006 Lipid Screening 2006 Sigmoidoscopy 2006 DTaP,Tdap,Td Vaccine (1 - Tdap) 08/13/2010 1 Pneumococcal Vaccine: 50+ (1 of 1 - PCV) 2011 Shingrix Vaccine (1 of 2) 2011 Covid-19 Vaccine (4 - 2023-2 5 season) 2024 07/07/2021, 10/30/2020, 10/03/2020 Influenza Vaccine (#1) 2025 05/15/2014, 2012 Diabetes Screening 02/17/2026 02/17/2023, 0 08/20/2022, 08/05/2022, Additional history exists RSV Vaccine (1 - 1-dose 75+ series) 2036 Medical Devices Implanted Type Area Holistic Health Practitioner Device Identifier Shelf Expiration Date Model / Serial / Lot Omar Bn Co Hv 40gm - [id number] Implanted:Qty : 1 on 07/05/2013 at [facility] Cement / Putty Right: Bone - Knee BIOMET 01/14/2015 [id number] / / [id number] Description:cobalt hv bone c ement 40/20 Cement Simplex Bone High Viscosity - [id number] Implanted:Qty : 1 on 08/19/2022 at [facility] Cement / Putty Right: Bone - Knee [employer] 12/16/2023 [id number] / / [id number] Cement Simplex Bone High Viscosity - [id number] Implanted:Qty : 1 on 08/19/2022 at [facility] Cement / Putty Right: Bone - Knee [employer] 12/16/2023 [id number] / / [id number] Luq-Et-W-Kind Implant - [id number] Implanted:Qty : 1 on 07/05/2013 at [facility] Implant Right: Bone - Knee BIOMET [id number] / / [id number] Description:oxford twin pegg ed femoral Spi-Di-W-Kind Implant - [id number] Implanted:Qty : 1 on 07/05/2013 at [facility] Implant Right: Bone - Knee BIOMET [id number] / / [id number] Description:STEPHANIE COTO S Imp Knee Tib Ins Tri Sz5 11mm [id number] Implanted:Qty : 1 on 08/19/2022 at [facility] Implant Right: Bone - Knee LORETTA 06/21/2027 [id number]- [id number] / / [id number] Component Triathlon 5 Pa Femoral Cruciate Retain Bead Knee Left - [id number] Implanted: at [facility] (Quantity not on file) Joint - Knee Left: Bone - Knee [employer] [employer] 11/05/2024 [id number]-[id number] / / [id number] Insert Triathlon 5 10mm Tibial Bearing Condylar Stabilize Sterile Knee - [id number] Implanted: at [facility] (Quantity not on file) Joint - Knee Left: Bone - Knee [employer] [employer] 06/01/2023 5531-G-[id number]- [id number] / / [id number] Baseplate Triathlon Tritanium 5 Tibial Knee - [id number] Implanted: at [facility] (Quantity not on file) Joint - Knee Left: Bone - Knee [employer] [employer] 09/12/2024 5536-B-500 / / [id number] Component Triathlon 33mm Tritanium 9mm Patellar Metal Backed Symmetric - [id number] Implanted: at [facility] (Quantity not on file) Joint - Knee Left: Bone - Knee [employer] [employer] 08/05/2024 [id number] / / [id number] Component Triathlon 33mm X3 9mm Patellar Symmetric Knee Superior - [id number] Implanted:Qty : 1 on 08/19/2022 at [facility] Joint - Knee Right: Bone - Knee [employer] [employer] 04/25/2027 5550-L-339 / / [id number] Component Triathlon 5 Femoral Cemented Posterior Stabilize Knee Right - [id number] Implanted:Qty : 1 on 08/19/2022 at [facility] Joint - Knee Right: Bone - Knee [employer] [employer] 04/18/2027 [id number] / / [id number] Peg Triathlon Fixation Modular Distal Femur Knee - [id number] Implanted:Qty : 1 on 08/19/2022 at [facility] Joint - Knee Right: Bone - Knee [employer] [employer] 03/03/2027 5575-X-000 / / [id number] Baseplate Triathlon 5 Pomaria Cocr Tibial Total Stabilize Cemented Knee - [id number] Implanted:Qty : 1 on 08/19/2022 at [facility] Joint - Knee Right: Bone - Knee [employer] [employer] 01/27/2027 [id number] / / [id number] Procedures Procedure Name Priority Date/Time Associated Diagnosis Comments BASIC METABOLIC PANEL Routine 08/20/2022 4:36 AM EST from Last 3 Months or Most Recently Relevant to Health Maintenance Results * (ABNORMAL) BASIC METABOLIC PNL (08/20/2022 4:36 AM EST) [facility] Signature Glucose 127(H) 74 - 99 mg/dL 08/20/2022 5:20 AM [facility] Comment: The [place] Diabetes Association (ADA) provides guidance for cutoff [...] Standards of Medical Care in Diabetes 2016, [place] Diabetes Association. Diabetes Care. 2016.39(Suppl 1). BUN 27(H) 7 - 21 mg/dL 08/20/2022 5:20 AM [facility] Creatinine 1.14(H) 0.58 - 0.96 mg/dL 08/20/2022 5:20 AM [facility] Sodium 138 136 - 144 mmol/L 08/20/2022 5:20 AM [facility] Potassium 4.9 3.7 - 5.1 mmol/L 08/20/2022 5:20 AM [facility] Chloride 106(H) 97 - 105 mmol/L 08/20/2022 5:20 AM [facility] CO2 20(L) 22 - 30 mmol/L 08/20/2022 5:20 AM [facility] Anion Gap 12 9 - 18 mmol/L 08/20/2022 5:20 AM [facility] Calcium, Total 8.6 8.5 - 10.2 mg/dL 08/20/2022 5:20 AM [facility] Estimated Glomerular Filtration Rate 55(L) >=60 mL/min/1. 73m 08/20/2022 5:20 AM [facility] Comment:Estimated Glomerular Filtration Rate (eGFR) is calculated using the 2020 CKD-EPI creatinine equation. This equation utilizes serum creatinine, sex, and age as parameters. The creatinine assay has traceable calibration to isotope dilution- mass spectrometry. Refer to KDIGO guidelines for clinical interpretation. In patients with unstable renal function, e.g. those with acute kidney injury, the eGFR may not accurately reflect actual GFR. Blood BLOOD SPECIMEN / Unknown Venipuncture / Unknown 08/20/2022 4:36 AM EST 08/20/2022 4:40 AM EST us Eli Levy PA-C LABORATORY Final Result [facility] [address] [place] [address], from Last 3 Months or Most Recently Relevant to Health Maintenance Insurance [facility] Care Teams Lace Cutter Relationship Specialty Start Date End Date Oswaldo Grewal MD [address] [place] [address] PCP - General Family Medicine 06/09/18 Danilo Cage MD [address] [place] [address] Cardiology 08/04/22
--- OUTSIDE RECORDS SUMMARY | 2025-01-29 07:53 | XMS_ITS | Encounter Summary ---
Author Organization [facility] Address [address] [place] [address] Care Team Providers Care Sole Tacker Name Role Phone Oswaldo Grewal MD Primary Care Provider [phone] Guerline Escobar PHARMACIST MANAGER Unavailable [phone] Noemi Ramirez NP Unavailable Encounter Details Date Type Department Care Team (Late st Contact Info) Description 02/20/2023 Orders Only [facility] [address] [place] [address] Noemi Ramirez NP [address] [facility] [address] [place] [address] Social History Tobacco Use Types Packs/Day Years [...] Visit [facility] [address] [place] [address] Guerline Escobar NP [address] [place] [address] 02/22/2025 8:30 AM EDT Office Visit [facility] [address] [place] [address] Christiano Gregg MD [address] [address] documented as of this encounter Procedures Procedure Name Priority Date/Time Associated Diagnosis Comments DIABETIC RETINOPATHY SCREENING - OU - BOTH EYES Routine 02/20/2023 4:14 PM EDT documented in this encounter Results * Diabetic Retinopathy Screening - OU - Both Eyes (02/20/2023 4:14 PM EDT) RESULTS NDR Comment:Nromal Anatomical Region Laterality Modality Head Other Noemi Ramirez NP OPHTH PHOTOGRAPHY Final Result documented in this encounter Visit Diagnoses Not on filedocumented in this encounter Care Teams Sole Tacker Relationship Specialty Start Date End Date Oswaldo Grewal MD [address] [place] [address] PCP - General Family Medicine 12/04/22 Guerline Escobar, PHARMACIST MANAGER [address] [place] [address] Nurse Practitioner Pulmonary Disease 09/20/23 Noemi Ramirez NP [address] [place] [address] Nurse Practitioner Family Medicine 09/20/23 01/12/25 documented as of this encounter
--- OUTSIDE RECORDS SUMMARY | 2025-01-29 07:53 | XMS_ITS | Encounter Summary ---
Author Organization [facility] Address [address] [facility] [place] [address] Care Team Providers Care Longwall Foreman Name Role Phone Oswaldo Grewal MD Primary Care Provider [phone] Guerline Escobar METAL WASHING MACHINE OPERATOR Unavailable [phone] Noemi Ramirez METAL WASHING MACHINE OPERATOR Unavailable Encounter Details Date Type Department Care Team (Late st Contact Info) Description 03/29/2023 Abstract [facility] [address], [place] [address] Christiano Gregg MD [address] [place] [address] Social History Tobacco Use Types Packs/Day Years [...] [facility] [address] [place] [address] Guerline Escobar, KEO [address] [place] [address] 02/22/2025 8:30 AM EDT Office Visit [facility] [address] [place] [address] Christiano Gregg MD 2035 [facility] [address] [id number] documented as of this encounter Visit Diagnoses Not on filedocumented in this encounter Care Teams Longwall Foreman Relationship Specialty Start Date End Date Oswaldo Grewal MD [address] [place] [address] PCP - General Family Medicine 12/04/22 Guerline Escobar, METAL WASHING MACHINE OPERATOR [address] [place] [address] Nurse Practitioner Pulmonary Disease 09/20/23 Noemi Ramirez NP [address] [place] [address] Nurse Practitioner Family Medicine 09/20/23 01/12/25 documented as of this encounter
--- OUTSIDE RECORDS SUMMARY | 2025-01-29 07:53 | XMS_ITS | Encounter Summary ---
Author Organization [facility] Address [address] [place] [address] Care Team Providers Care Loan Funder Name Role Phone Oswaldo Grewal MD Primary Care Provider [phone] Danilo Cage MD Unavailable [phone] Source Comments In the event this information is protected by the Federal Confidentiality of Alcohol and Drug AbusePatient Records regulations: The Federal rules restrict any use of the information to criminally investigate or prosecute any alcohol or drug abuse patient.[facility] Reason for Visit * Reason Comments Radiology XR Encounter Details Date Type Department Care Team (Late st Contact Info) Description 02/28/2023 Radiology Radiology [address] [place] [address] Radha Le, RT(R) Radiology XR Social History Tobacco Use [...] is lower risk 9 11/29/2022 Data from: https://www.neighborhoodatlas.medicine.[facility]/. Last address used for calculation [address] [...] documented in this encounter Progress Notes * Radha Le RT(R) - 02/28/2023 10:38 AM EDT Radiology Service Progress Note PATIENT NAME: Ledy Johnson DATE OF SERVICE: February 28, 2023 [...] RT Aarti(R) February 28, 2023 10:38 AM documented in this encounter Plan of Treatment Not on file documented as of this encounter Visit Diagnoses Not on filedocumented in this encounter Care Teams Loan Funder Relationship Specialty Start Date End Date Oswaldo Grewal MD [address] [place] [address] PCP - General Family Medicine 06/09/18 Danilo Cage MD [address] [place] [address] Cardiology 08/04/22 documented as of this encounter
--- OUTSIDE RECORDS SUMMARY | 2025-01-29 07:53 | XMS_ITS | Encounter Summary ---
Author Organization [facility] Address [address] [facility] [place] [address] Care Team Providers Care Equipment Records Supervisor Name Role Phone Oswaldo Grewal MD Primary Care Provider [phone] Guerline Escobar ACTIVITY SPECIALIST Unavailable [phone] Noemi Ramirez NP Unavailable Encounter Details Date Type Department Care Team (Late st Contact Info) Description 04/02/2024 Abstract [facility] [address] [place] [address] Noemi Ramirez NP [address] [facility] [address] [place] [address] Social History Tobacco Use Types Packs/Day Years [...] Date Recorded Patient Health Questionnaire-2 Score 0 03/30/2024 Comments No Sex and Gender Information Value Date Recorded Sex Assigned at Not on file Legal Sex Female 7:13 PM EDT Gender Identity Not on file Sexual Orientation Not on file documented as of this encounter Plan of Treatment Upcoming Encounters Date Type Department Care Team (Late st Contact Info) Description 01/31/2025 9:00 AM EDT Office Visit [facility] [address] [place] [address] Guerline Escobar, KEO [address] [place] [address] 02/22/2025 8:30 AM EDT Office Visit [facility] [address] [place] [address] Christiano Gregg MD 5[address] [facility] [address] [address] documented as of this encounter Visit Diagnoses Not on filedocumented in this encounter Care Teams Equipment Records Supervisor Relationship Specialty Start Date End Date Oswaldo Grewal MD [address] [place] [id number] PCP - General Family Medicine 12/04/22 Guerline Escobar, ACTIVITY SPECIALIST [address] [place] [address] Nurse Practitioner Pulmonary Disease 09/20/23 Noemi Ramirez NP [address] [place] [address] Nurse Practitioner Family Medicine 09/20/23 01/12/25 documented as of this encounter
--- OUTSIDE RECORDS SUMMARY | 2025-01-29 07:53 | XMS_ITS | Encounter Summary ---
Author Organization [facility] Address [address] [place] [address] Phone Care Team Providers Care Wrapping Machine Tender Name Role Phone Oswaldo Grewal MD Primary Care Provider [phone] Encounter Details Date Type Department Care Team (Late st Contact Info) Description 03/12/2022 Orders Only [facility] [address] [place] [address] Conversion, Onbase Social History Tobacco Use Types [...] Info) Description 02/04/2025 8:45 AM EDT Appointment [address] [place] [address] 03/15/2025 9:00 AM EDT Office Visit [address] [place] [address] Danilo Cage MD 703 [facility] 2, [address] [address] Scheduled Orders Name Type Priority Associated Diagnoses Orde r Schedule OUTSIDE LAB SCAN Lab Ordered: 03/12/2022 documented as of this encounter Visit Diagnoses Not on filedocumented in this encounter Care Teams Wrapping Machine Tender Relationship Specialty Start Date End Date Oswaldo Grewal MD [address] [place] [address] PCP - General 12/18/18 documented as of this encounter
--- OUTSIDE RECORDS SUMMARY | 2025-04-06 08:45 | XMS_ITS | Encounter Summary ---
Author Organization [facility] Address [address] [place] [address] Care Team Providers Care Baggageman Name Role Phone Oswaldo Grewal MD Primary Care Provider [phone] Guerline Escobar MONTESSORI PARAPROFESSIONAL Unavailable [phone] Encounter Details Date Type Department Care Team (Late st Contact Info) Description 03/25/2025 Telephone [facility] [address] [place] [address] Oswaldo Grewal MD [address] [place] [address] Social History Tobacco Use Types Packs/Day Years [...] Date Recorded Patient Health Questionnaire-2 Score 0 01/31/2025 Comments No Sex and Gender Information Value Date Recorded Sex Assigned at Not on file Legal Sex Female 7:13 PM EDT Gender Identity Not on file Sexual Orientation Not on file documented as of this encounter Miscellaneous Notes * Telephone Encounter - Jim Luna - 03/25/2025 9:58 AM EDT 03/25/25 Called [facility] pt had DM eye apt 03/05/25 they will fax exam over documented in this encounter Plan of Treatment Upcoming Encounters Date Type Department Care Team (Late st Contact Info) Description 08/01/2025 9:00 AM EST Office Visit [facility] [address] [place] [address] Guerline Escobar, MONTESSORI PARAPROFESSIONAL [address] [place] [address] documented as of this encounter Visit Diagnoses Not on filedocumented in this encounter Care Teams Baggageman Relationship Specialty Start Date End Date Oswaldo Grewal MD [address] [place] [address] PCP - General Family Medicine 12/04/22 Guerline Escobar, MONTESSORI PARAPROFESSIONAL [address] [place] [address] Nurse Practitioner Pulmonary Disease 09/20/23 documented as of this encounter
--- OUTSIDE RECORDS SUMMARY | 2025-04-06 08:45 | XMS_ITS | Clinical Summary ---
Author Organization [facility] Address [address] [place] [address] Care Team Providers Care Installer Soft Top Name Role Phone Unavailable Primary Care Provider Unavailabl e Social History Tobacco Use Types Packs/Day Years Used Date Smoking Tobacco: Never Assessed Comments Unknown Sex and Gender Information Value Date Recorded Sex Assigned at Not on file Legal Sex Female 12:28 AM EDT Gender Identity Not on file Sexual Orientation Not on file Plan of Treatment Not on file
--- OUTSIDE RECORDS SUMMARY | 2025-04-06 08:45 | XMS_ITS | Encounter Summary ---
Author Organization [facility] Address [address] [facility] [place] [address] Care Team Providers Care Director Of Construction Name Role Phone Oswaldo Grewal MD Primary Care Provider [phone] Guerline Escobar SEED ANALYSIS LABORATORY ASSISTANT Unavailable [phone] Encounter Details Date Type Department Care Team (Late st Contact Info) Description 01/29/2025 Abstract [facility] [address] [place] [address] Guerline Escobar NP [address] [place] [address] Social History Tobacco Use Types [...] as of this encounter Functional Status * Over the past 2 weeks, how often have you been bothered by any of the following problems? Question Answer Date of Assessment Author Little interest or pleasure in doing things Not at all 01/31/2025 9:07 AM EDT Rogerio Pardo MA Feeling down, depressed, or hopeless Not at all 01/31/2025 9:07 AM EDT Rogerio Pardo MA Patient Health Questionnaire-2 Score 0 01/31/2025 9:07 AM EDT Kimber Pardo MA documented as of this encounter Plan of Treatment Upcoming Encounters Date Type Department Care Team (Late st Contact Info) Description 08/01/2025 9:00 AM EST [facility] [address] [place] [address] Guerline Escobar, SEED ANALYSIS LABORATORY ASSISTANT [address] [place] [address] documented as of this encounter Visit Diagnoses Not on filedocumented in this encounter Care Teams Director Of Construction Relationship Specialty Start Date End Date Oswaldo Grewal MD [address] [place] [address] PCP - General Family Medicine 12/04/22 Guerline Escobar, KEO [address] [place] [address] Nurse Practitioner Pulmonary Disease 09/20/23 documented as of this encounter
--- OUTSIDE RECORDS SUMMARY | 2025-04-06 08:45 | XMS_ITS | Encounter Summary ---
Author Organization [facility] Address [address] [facility] [place] [address] Care Team Providers Care Stone Gluer Name Role Phone Oswaldo Grewal MD Primary Care Provider [phone] Guerline Escobar SLAB DEPILER OPERATOR Unavailable [phone] Encounter Details Date Type Department Care Team (Late Contact Info) Description 03/20/2025 Abstract [facility] [address] [place] [address] Guerline Escobar NP [address] [place] [address] Social History Tobacco Use Types [...] Department Care Team (Late Contact Info) Description 08/01/2025 9:00 AM EST Office Visit [facility] [address] [place] [address] Guerline Escobar, KEO [address] [place] [address] documented as of this encounter Visit Diagnoses Not on filedocumented in this encounter Care Teams Stone Gluer Relationship Specialty Start Date End Date Oswaldo Grewal MD [address] [place] [address] PCP - General Family Medicine 12/04/22 Guerline Escobar NP [address] [place] [address] Nurse Practitioner Pulmonary Disease 09/20/23 documented as of this encounter
--- OUTSIDE RECORDS SUMMARY | 2025-04-06 08:45 | XMS_ITS | Encounter Summary ---
Author Organization [facility] Address [address] [facility] [place] [address] Care Team Providers Care Data Programmer Name Role Phone Oswaldo Grewal MD Primary Care Provider [phone] Guerline Escobar CLINICAL CYTOPATHOLOGIST Unavailable [phone] Encounter Details Date Type Department Care Team (Late Contact Info) Description 04/01/2025 Orders Only [facility] [address] [place] [address] Guerline Escobar NP [address] [place] [address] Social History Tobacco Use Types [...] Description 08/01/2025 9:00 AM EST Office Visit [facility] [address] [place] [address] Guerline Escobar NP [address] [place] [address] documented as of this encounter Procedures Procedure Name Priority Date/Time Associated Diagnosis Comments DIABETIC RETINOPATHY SCREENING - OU - BOTH EYES Routine 04/01/2025 4:10 PM EDT documented in this encounter Results * Diabetic Retinopathy Screening - OU - Both Eyes (04/01/2025 4:10 PM EDT) Anatomical Region Laterality Modality Head Other us Guerline Escobar NP OPHTH PHOTOGRAPHY Final Resul t documented in this encounter Visit Diagnoses Not on filedocumented in this encounter Care Teams Data Programmer Relationship Specialty Start Date End Date Oswaldo Gerwal MD [address] [place] [address] PCP - General Family Medicine 12/04/22 Guerline Escobar NP [address] [place] [address] Nurse Practitioner Pulmonary Disease 09/20/23 documented as of this encounter
--- OUTSIDE RECORDS SUMMARY | 2025-04-06 08:45 | XMS_ITS | Clinical Summary ---
Author Organization [facility] Address [address] [place] [address] Care Team Providers Care Physics Instructor Name Role Phone Oswaldo Grewal MD Primary Care Provider [phone] Danilo Cage MD Unavailable [phone] Allergies Active Allergy Reactions Criticality Noted Date [...] is lower risk 9 11/29/2022 Data from: https://www.neighborhoodatlas.medicine.[facility].edu/. Last address used for calculation [...] 2011 Shingrix Vaccine (1 of 2) 2011 Influenza Vaccine (#1) 2025 05/15/2014, 2012 Diabetes Screening 02/17/2026 02/17/2023, 0 08/20/2022, 08/05/2022, Additional history exists RSV Vaccine (1 - 1-dose 75+ series) 2036 Medical Devices Implanted Type Area Pot Fluxer Device Identifier Shelf Expiration Date Model / Serial / Lot Omar Bn Co Hv 40gm - [id number] Implanted:Qty : 1 on 07/05/2013 at [facility] Cement / Putty Right: Bone - Knee BIOMET 01/14/2015 [id number] / / [id number] Description:cobalt hv bone c ement 40/20 Cement Simplex Bone High Viscosity - [id number] Implanted:Qty : 1 on 08/19/2022 at [facility] Cement / Putty Right: Bone - Knee [employer] 12/16/2023 [id number] / / [id number] Cement Simplex Bone High Viscosity - [id number] Implanted:Qty : 1 on 08/19/2022 at [facility] Cement / Putty Right: Bone - Knee [employer] 12/16/2023 [id number] / / [id number] Woe-Bi-U-Kind Implant - [id number] Implanted:Qty : 1 on 07/05/2013 at [facility] Implant Right: Bone - Knee BIOMET [id number] / / [id number] Description:oxford twin pegg ed femoral Lrb-Ny-C-Kind Implant - [id number] Implanted:Qty : 1 on 07/05/2013 at [facility] Implant Right: Bone - Knee BIOMET [id number] / / [id number] Description:STEPHANIE COTO S Imp Knee Tib Ins Tri Sz5 11mm [id number] Implanted:Qty : 1 on 08/19/2022 at [facility] Implant Right: Bone - Knee LORETTA 06/21/2027 5537-G-511- E / / [id number] Component Triathlon 5 Pa Femoral Cruciate Retain Bead Knee Left - [id number] Implanted: at [facility] (Quantity not on file) Joint - Knee Left: Bone - Knee [employer] 11/05/2024 5517-F-501 / / [id number] Insert Triathlon 5 10mm Tibial Bearing Condylar Stabilize Sterile Knee - [id number] Implanted: at [facility] (Quantity not on file) Joint - Knee Left: Bone - Knee [employer] 06/01/2023 5531-G-510- E / / [id number] Baseplate Triathlon Tritanium 5 Tibial Knee - [id number] Implanted: at [facility] (Quantity not on file) Joint - Knee Left: Bone - Knee [employer] 09/12/2024 5536-B-500 / / [id number] Component Triathlon 33mm Tritanium 9mm Patellar Metal Backed Symmetric - [id number] Implanted: at [facility] (Quantity not on file) Joint - Knee Left: Bone - Knee [employer] 08/05/2024 5556-L-339 / / [id number] Component Triathlon 33mm X3 9mm Patellar Symmetric Knee Superior - [id number] Implanted:Qty : 1 on 08/19/2022 at [facility] Joint - Knee Right: Bone - Knee [employer] 04/25/2027 5550-L-339 / / [id number] Component Triathlon 5 Femoral Cemented Posterior Stabilize Knee Right - [id number] Implanted:Qty : 1 on 08/19/2022 at [facility] Joint - Knee Right: Bone - Knee [employer] 04/18/2027 [id number] / / [id number] Peg Triathlon Fixation Modular Distal Femur Knee - [id number] Implanted:Qty : 1 on 08/19/2022 at [facility] Joint - Knee Right: Bone - Knee [employer] 03/03/2027 5575-X-000 / / [id number] Baseplate Triathlon 5 Nora Cocr Tibial Total Stabilize Cemented Knee - [id number] Implanted:Qty : 1 on 08/19/2022 at [facility] Joint - Knee Right: Bone - Knee [employer] 01/27/2027 [id number] / / [id number] Procedures Procedure Name Priority Date/Time Associated Diagnosis Comments BASIC METABOLIC PANEL Routine 08/20/2022 4:36 AM EST from Last 3 Months or Most Recently Relevant to Health Maintenance Results * (ABNORMAL) BASIC METABOLIC PNL (08/20/2022 4:36 AM EST) Glucose 127(H) 74 - 99 mg/dL 08/20/2022 5:20 AM [facility] Comment: The [place] Diabetes Association (ADA) provides guidance for cutoff [...] Standards of Medical Care in Diabetes 2016, [place] Diabetes Association. Diabetes Care. 2016.39(Suppl 1). BUN 27(H) 7 - 21 mg/dL 08/20/2022 5:20 AM [facility] Creatinine 1.14(H) 0.58 - 0.96 mg/dL 08/20/2022 5:20 AM [facility] Sodium 138 136 - 144 mmol/L 08/20/2022 5:20 AM [facility] Potassium 4.9 3.7 - 5.1 mmol/L 08/20/2022 5:20 AM [facility] Chloride 106(H) 97 - 105 mmol/L 08/20/2022 5:20 AM [facility] CO2 20(L) 22 - 30 mmol/L 08/20/2022 5:20 AM [facility] Anion Gap 12 9 - 18 mmol/L 08/20/2022 5:20 AM [facility] Calcium, Total 8.6 8.5 - 10.2 mg/dL 08/20/2022 5:20 AM [facility] Estimated Glomerular Filtration Rate 55(L) >=60 mL/min/1. 73m 08/20/2022 5:20 AM EST [facility] Comment:Estimated Glomerular Filtration Rate (eGFR) is [...] us Eli Levy PA-C LABORATORY Final Result [facility] [address] [facility] [address], [place] from Last 3 Months or Most Recently Relevant to Health Maintenance Insurance [facility] Care Teams Physics Instructor Relationship Specialty Start Date End Date Oswaldo Grewal MD [address] [place] [address] PCP - General Family Medicine 06/09/18 Danilo Cage MD [address] [place] [address] Cardiology 08/04/22
--- OUTSIDE RECORDS SUMMARY | 2025-04-06 08:45 | XMS_ITS | Encounter Summary ---
Author Organization [facility] Address [address] [facility] [place] [address] Care Team Providers Care Java Manager Name Role Phone Oswaldo Grewal MD Primary Care Provider [phone] Guerline Escobar RADIOLOGIST DIAGNOSTIC Unavailable [phone] Noemi Ramirez RADIOLOGIST DIAGNOSTIC Unavailable Encounter Details Date Type Department Care Team (Late st Contact Info) Description 03/29/2023 Abstract [facility] [place] [facility] [address] [place] [address] Christiano Gregg MD [address], [place] [address] Social History Tobacco Use Types Packs/Day Years [...] [facility] [address] [place] [address] Guerline Escobar NP [address] [place] [address] documented as of this encounter Visit Diagnoses Not on filedocumented in this encounter Care Teams Java Manager Relationship Specialty Start Date End Date Oswaldo Grewal MD [address] [place] [address] PCP - General Family Medicine 12/04/22 Guerline Escobar NP [address] [place] [address] Nurse Practitioner Pulmonary Disease 09/20/23 Noemi Ramirez NP [address] [place] [address] Nurse Practitioner Family Medicine 09/20/23 01/12/25 documented as of this encounter
--- OUTSIDE RECORDS SUMMARY | 2025-04-06 08:45 | XMS_ITS | Encounter Summary ---
Author Organization [facility] Address [address] [place] [address] Care Team Providers Care Workforce Management Manager Name Role Phone Oswaldo Grewal MD Primary Care Provider [phone] Guerline Escobar REVENUE SPECIALIST Unavailable [phone] Noemi Ramirez NP Unavailable Encounter Details Date Type Department Care Team (Late Contact Info) Description 11/25/2022 Abstract [facility] [address] [place] [address] Artis Sorensen, PT [address] [place] [address] Social History Tobacco Use Types Packs/Day Years [...] [facility] [address] [place] [address] Guerline Escobar REVENUE SPECIALIST [address] [place] [address] documented as of this encounter Visit Diagnoses Not on filedocumented in this encounter Care Teams Workforce Management Manager Relationship Specialty Start Date End Date Oswaldo Grewal MD [address] [place] [address] PCP - General Family Medicine 12/04/22 Guerline Escobar REVENUE SPECIALIST [address] [place] [address] Nurse Practitioner Pulmonary Disease 09/20/23 Noemi Ramirez NP [address] [place] [address] Nurse Practitioner Family Medicine 09/20/23 01/12/25 documented as of this encounter
--- OUTSIDE RECORDS SUMMARY | 2025-04-06 08:45 | XMS_ITS | Encounter Summary ---
Author Organization [facility] Address [address] [facility] [place] [address] Care Team Providers Care Foreign Food Cook Specialty Name Role Phone Oswaldo Grewal MD Primary Care Provider [phone] Guerline Escobar NP Unavailable [phone] Noemi Ramirez NP Unavailable Reason for Visit * Reason Comments Med Refill Encounter Details Date Type Department Care Team (Late st Contact Info) Description 02/07/2023 Refill [facility] [address] [place] [address] Guerline Escobar ORACLE SECURITY CONSULTANT [address] [place] [address] Hypertriglyceridemia Social History Tobacco Use Types Packs/Day [...] [facility] [address] [place] [address] Guerline Escobar NP [address] [place] [address] documented as of this encounter Visit Diagnoses Diagnosis Hypertriglyceridemia Pure hyperglyceridemia documented in this encounter Care Teams Foreign Food Cook Specialty Relationship Specialty Start Date End Date Oswaldo Grewal MD [address] [place] [address] PCP - General Family Medicine 12/04/22 Guerline Escobar NP [address] [address] Nurse Practitioner Pulmonary Disease 09/20/23 Noemi Ramirez NP [address] [place] [address] Nurse Practitioner Family Medicine 09/20/23 01/12/25 documented as of this encounter
--- OUTSIDE RECORDS SUMMARY | 2025-04-06 08:45 | XMS_ITS | Encounter Summary ---
Author Organization [facility] Address [address] [place] [address] Care Team Providers Care Material Cutter Name Role Phone Oswaldo Grewal MD Primary Care Provider [phone] Guerline Escobar CUPOLA TENDER HELPER Unavailable [phone] Noemi Ramirez NP Unavailable Encounter Details Date Type Department Care Team (Late st Contact Info) Description 02/20/2023 Orders Only [facility] [address] [place] [address] Noemi Ramirez NP [address] [facility] [address] [place] [address] Social History Tobacco Use Types Packs/Day Years [...] 08/01/2025 9:00 AM EST Office Visit [facility] [address] [place] [address] Guerline Escobar NP [address] [place] [phone] documented as of this encounter Procedures Procedure Name Priority Date/Time Associated Diagnosis Comments DIABETIC RETINOPATHY SCREENING - OU - BOTH EYES Routine 02/20/2023 4:14 PM EDT documented in this encounter Results * Diabetic Retinopathy Screening - OU - Both Eyes (02/20/2023 4:14 PM EDT) RESULTS NDR Comment:Nromal Anatomical Region Laterality Modality Head Other Noemi Ramirez CUPOLA TENDER HELPER OPHTH PHOTOGRAPHY Final Result documented in this encounter Visit Diagnoses Not on filedocumented in this encounter Care Teams Material Cutter Relationship Specialty Start Date End Date Oswaldo Grewal MD [address] [place] [address] PCP - General Family Medicine 12/04/22 Guerline Escobar NP [address] [place] [address] Nurse Practitioner Pulmonary Disease 09/20/23 Noemi Ramirez NP [address] [place] [address] Nurse Practitioner Family Medicine 09/20/23 01/12/25 documented as of this encounter
--- OUTSIDE RECORDS SUMMARY | 2025-04-06 08:45 | XMS_ITS | Encounter Summary ---
Author Organization [facility] Address [address] [facility] [place] [address] Care Team Providers Care Meat Selector Name Role Phone Oswaldo Grewal MD Primary Care Provider [phone] Guerline Escobar ADJUSTER ELECTRICAL CONTACTS Unavailable [phone] Encounter Details Date Type Department Care Team (Late Contact Info) Description 02/20/2025 Abstract [facility] [address] [place] [place] [address] Guerline Escobar NP [address] [place] [address] Social History Tobacco Use Types [...] Description 08/01/2025 9:00 AM EST Office Visit [facility] [address] [place] [place] [phone] Guerline Escobar, KEO [address] [place] [address] documented as of this encounter Visit Diagnoses Not on filedocumented in this encounter Care Teams Meat Selector Relationship Specialty Start Date End Date Oswaldo Grewal MD [address] [place] [place] [address] PCP - General Family Medicine 12/04/22 Guerline Escobar NP [address] [place] [place] [address] Nurse Practitioner Pulmonary Disease 09/20/23 documented as of this encounter
--- OUTSIDE RECORDS SUMMARY | 2025-04-06 08:45 | XMS_ITS | Encounter Summary ---
Author Organization [facility] Address [address] [place] [address] Care Team Providers Care Used Car Sales Manager Name Role Phone Oswaldo Grewal MD Primary Care Provider Guerline Escobar SIGNAL MAINTAINER Unavailable [phone] Reason for Visit * Reason Comments Med Refill Encounter Details Date Type Department Care Team (Late st Contact Info) Description 03/25/2025 Refill [facility] [address] [facility] [address] [place] [address] Christiano Gregg MD [address] [facility] [address] [address] Carpal tunnel syndrome, bilateral (Primary Dx) Social History Tobacco Use Types Packs/Day Years [...] 08/01/2025 9:00 AM EST Office Visit [facility] [address] [place] [address] Guerline Escobar NP [address] [place] [address] documented as of this encounter Visit Diagnoses Diagnosis Carpal tunnel syndrome, bilateral- Primary Carpal tunnel syndrome documented in this encounter Care Teams Used Car Sales Manager Relationship Specialty Start Date End Date Oswaldo Grewal MD [address] [place] [address] PCP - General Family Medicine 12/04/22 Guerline Escobar NP [address] [place] [address] Nurse Practitioner Pulmonary Disease 09/20/23 documented as of this encounter
--- OUTSIDE RECORDS SUMMARY | 2025-04-06 08:45 | XMS_ITS | Encounter Summary ---
Author Organization [facility] Address [address] [facility] [place] [address] Care Team Providers Care Casting Associate Name Role Phone Oswaldo Grewal MD Primary Care Provider [phone] Guerline Escobar STEEL MANAGER Unavailable [phone] Encounter Details Date Type Department Care Team (Late st Contact Info) Description 01/31/2025 Abstract [facility] [address] [place] [address] Guerline Escobar NP [address] [place] [address] Social History Tobacco Use Types [...] Description 08/01/2025 9:00 AM EST [facility] [address] [place] [address] Guerline Escobar, STEEL MANAGER [address] [place] [address] documented as of this encounter Visit Diagnoses Not on filedocumented in this encounter Care Teams Casting Associate Relationship Specialty Start Date End Date Oswaldo Grewal MD [address] [place] [address] PCP - General Family Medicine 12/04/22 Guerline Escobar, KEO [address] [place] [address] Nurse Practitioner Pulmonary Disease 09/20/23 documented as of this encounter
--- OUTSIDE RECORDS SUMMARY | 2025-04-06 08:45 | XMS_ITS | Encounter Summary ---
Author Organization [facility] Address [address] [place] [address] Care Team Providers Care Curb Hop Name Role Phone Oswaldo Grewal MD Primary Care Provider [phone] Guerline Escobar BIZTALK DEVELOPER Unavailable [phone] Noemi Ramirez BIZTALK DEVELOPER Unavailable Encounter Details Date Type Department Care Team ([facility] Contact Info) Description 02/28/2023 Clinisync Result Encounter [...] Upcoming Encounters Date Type Department Care Team ([facility] Contact Info) Description 08/01/2025 9:00 AM EST Office Visit [facility] [address] [place] [address] Guerline Escobar, BIZTALK DEVELOPER [address] [place] [address] documented as of this encounter Procedures Procedure [...] postoperative appearance bilaterally. No other significant abnormality. Customs Examiner: TRINITY Transcribe Date/Time: Feb 28 2023 12:02P Dictated by : RACHEAL BENITEZ MD This examination was interpreted and the report reviewed and electronically signed by: RACHEAL BENITEZ MD on Feb 28 2023 12:02PM EST [id number]^SI^ACN Procedure Note Radiology, Radiologist, - 02/28/2023 * [...] postoperative appearance bilaterally. No other significant abnormality. Customs Examiner: LYNNETTEB Transcribe Date/Time: Feb 28 2023 12:02P Dictated by : RACHEAL BENITEZ MD This examination was interpreted and the report reviewed and electronically signed by: RACHEAL BENITEZ MD on Feb 28 2023 12:02PM EST [id number]^SI^ACN us Generic External Data Provider [facility] Final Result documented in this encounter Visit Diagnoses Not on filedocumented in this encounter Care Teams Curb Hop Relationship Specialty Start Date End Date Oswaldo Grewal MD [address] [place] [address] PCP - General Family Medicine 12/04/22 Guerline Escobar NP [address] [place] [address] Nurse Practitioner Pulmonary Disease 09/20/23 Noemi Ramirez NP [address] [place] [address] Nurse Practitioner Family Medicine 09/20/23 01/12/25 documented as of this encounter
--- OUTSIDE RECORDS SUMMARY | 2025-04-06 08:46 | XMS_ITS | Encounter Summary ---
Author Organization [facility] Address [address] [place] [address] Care Team Providers Care Inspector Watch Assembly Name Role Phone Oswaldo Grewal MD Primary Care Provider [phone] Guerline Escobar MAKER UP FOLDING Unavailable [phone] Noemi Ramirez MAKER UP FOLDING Unavailable Encounter Details Date Type Department Care Team ([facility] Contact Info) Description 07/29/2023 Clinisync Result Encounter [...] Upcoming Encounters Date Type Department Care Team ([facility] Contact Info) Description 08/01/2025 9:00 AM EST Office Visit [facility] [address] [place] [address] Guerline Escobar, MAKER UP FOLDING [address] [place] [address] documented as of this encounter [...] TISSUES: Unremarkable. IMPRESSION: Stable bilateral knee arthroplasties. Oral Hygienist: TRINITY Transcribe Date/Time: Jul 29 2023 3:07P Dictated by : JAIR JOSHUA MD This examination was interpreted and the report reviewed and electronically signed by: JAIR JOSHUA MD on Jul 29 2023 3:13PM EST [id number]^SI^ACN Procedure Note Radiology, Radiologist, - 07/29/2023 * [...] TISSUES: Unremarkable. IMPRESSION: Stable bilateral knee arthroplasties. Oral Hygienist: TRINITY Transcribe Date/Time: Jul 29 2023 3:07P Dictated by : JAIR JOSHUA MD This examination was interpreted and the report reviewed and electronically signed by: JAIR JOSHUA MD on Jul 29 2023 3:13PM EST [id number]^[id number]^SI^ACN us Generic External Data Provider [facility] Final Result documented in this encounter Visit Diagnoses Not on filedocumented in this encounter Care Teams Inspector Watch Assembly Relationship Specialty Start Date End Date Oswaldo Grewal MD [address] [place] [address] PCP - General Family Medicine 12/04/22 Guerline Escobar MAKER UP FOLDING [address] [place] [address] Nurse Practitioner Pulmonary Disease 09/20/23 Noemi Ramirez NP [address] [place] [address] Nurse Practitioner Family Medicine 09/20/23 01/12/25 documented as of this encounter
--- OUTSIDE RECORDS SUMMARY | 2025-04-06 08:46 | XMS_ITS | Clinical Summary ---
Author Organization [facility] Address [address] [place] [address] Phone Care Team Providers Care Credit Assessment Analyst Name Role Phone Oswaldo Grewal MD Primary Care Provider [phone] Allergies Active Allergy Reactions Criticality Noted Date [...] in the morning. Take before meals. Active rOPINIRole (Requip) 0.25 mg tablet Take 1 tablet (0.25 mg) by mouth see administration instructions. Take 1 in the am, 1 at lunch, 2 at dinner and 2 at bedtime Active acetaminophen (Tylenol) 500 mg tablet Take 1 tablet (500 mg) by mouth every 6 hours if needed for mild pain (1 - 3). Active brimonidine (AlphaGAN) 0.2 % ophthalmic solution Administer 1 drop into both eyes 2 times a day. Active latanoprost (Xalatan) 0.005 % ophthalmic solution Administer 1 drop into both eyes once daily at bedtime. Active atorvastatin (Lipitor) 10 mg tabletIndications :Mixed hyperlipidemia Take 1 tablet (10 mg) by mouth once daily. 90 tablet 3 03/16/20 24 Active valsartan (Diovan) 320 mg tabletIndications :Essential hypertension, benign Take 1 tablet (320 mg) by mouth once daily. 90 tablet 1 01/26/20 25 026 Active meloxicam (Mobic) 7.5 mg tablet 1 tablet (7.5 mg) once daily. 02/19/20 25 Active rOPINIRole (Requip) 1 mg tablet 1 tablet (1 mg) once daily at bedtime. 12/21/19 25 Active loteprednol (Lotemax) 0.5 % ophthalmic suspension INSTILL 1 DROP INTO LEFT EYE TWICE A DAY DIRECTED 12/13/19 25 Active lubricating eye drops ophthalmic solution 1 drop. 3-4 times daily Active acetaZOLAMIDE (Diamox) 500 mg 12 hr capsule Take 1 capsule (500 mg) by mouth twice a day. 07/25/19 24 Active valACYclovir (Valtrex) 500 mg tablet 1 tablet (500 mg) 2 times a day. 02/21/20 25 Active chlorthalidone (Hygroton) 25 mg tabletIndications :Essential hypertension, benign Take 1 tablet (25 mg) by mouth once daily. 90 tablet 3 03/15/20 25 Active gabapentin (Neurontin) 100 mg capsule Take 2 capsules (200 mg) by mouth 2 times a day. 025 Disconti nued(The rapy complete d) meloxicam (Mobic) 15 mg tablet Take 1 tablet (15 mg) by mouth once daily. 025 Disconti nued(Dos e adjustme nt) prednisoLONE acetate (Pred-Forte) 1 % ophthalmic suspension Administer 1 drop into both eyes 4 times a day. Disconti nued(The rapy complete d) chlorthalidone (Hygroton) 25 mg tabletIndications :Essential hypertension, benign TAKE 1 TABLET BY MOUTH DAILY 90 tablet 3 12/07/19 24 025 Disconti nued(Reo rder) Active Problems Problem Noted Date Diagnosed Date Never smoked tobacco 03/16/2024 BMI 34.0-34.9,adult 09/09/2023 Cataract, nuclear sclerotic, both eyes Chronic pain of both knees 08/04/2023 Dyspnea 08/04/2023 Essential hypertension, benign 08/04/2023 Primary open angle glaucoma (POAG) of both eyes, mild stage 08/04/2023 S/P TAVR (transcatheter aortic valve replacement ) 08/04/2023 Mixed hyperlipidemia 08/04/2023 Encounters Date Type Department Care Team Description 03/15/2025 9:00 AM EDT Office Visit [facility] [address] [facility] [address] [place] [phone] Danilo Cage MD S/P TAVR (transcatheter aortic valve replacement) (Primary Dx); Essential hypertension, benign; Mixed hyperlipidemia; BMI 34.0-34.9,adult; Never smoked tobacco Discharge Disposition: Home 03/15/2025 Travel 02/04/2025 8:43 AM EDT - 02/04/2025 11:59 PM EDT Hospital Encounter [facility] [address] [facility] [address] [place] [phone] Essential hypertension, benign; S/P TAVR (transcatheter aortic valve replacement) Discharge Disposition: Home 02/04/2025 Results Follow-Up [place] [id number] [facility] [address] [place] [address] Ledy Euceda LPN Transthoracic Echo Complete 02/04/2025 Travel 01/25/2025 [facility] [address] [place] [address] Yue Hall LPN Essential hypertension, benign from Last 3 Months Immunizations Immunization Administration Dates Next Due Flu vaccine, quadrivalent, n o egg protein, age 6 month or greater (FLUCELVAX) 03/30/2024 Moderna SARS-CoV-2 Vaccination 10/30/2020,2020 Pfizer Purple Cap SARS-CoV-2 07/07/2021 Tdap vaccine, age 7 year and older (BOOSTRIX, AD ACEL) 01/08/2025 Family History Medical History Relation Name [...] Sign Reading Time Taken Comments Blood Pressure 132/58 03/15/2025 9:19 AM EDT Pulse 60 03/15/2025 9:19 AM EDT Temperature - - Respiratory Rate - - Oxygen Saturation 98% 03/08/2022 10:28 AM EDT Inhaled Oxygen Concentration - - Weight 107 kg (236 lb) 03/15/2025 9:19 AM EDT Height 175.3 cm (5' 9 ) 03/15/2025 9:19 AM EDT Body Mass Index 34.85 03/15/2025 9:19 AM EDT Plan of Treatment Upcoming Encounters Date Type Department Care Team (Late st Contact Info) Description 04/11/2026 9:50 AM EDT Office Visit [facility] [address] [address] Danilo Cage MD [address] [facility] [address] [place] [address] Health Maintenance Due Date Last Done Comments CT Colonography 1961 FIT-DNA (Cologuard) 1961 FIT 1961 HIV Screening 1961 Lipid Panel 1961 Sigmoidoscopy 1961 TSH Level 1961 MMR Vaccines (1 of 1 - Standard series) 1962 Hepatitis C Screening 1979 Cervical Cancer Screening 1982 HPV/Cotest 1982 Pap Smear 1982 Pneumococcal Vaccine (1 of 1 - PCV) 2011 Zoster Vaccines (1 of 2) 2011 RSV High Risk: (Elderly (60+) or Population) (1 - Risk 60-74 years 1-dose series) 2021 Mammogram 03/14/2024 03/14/2023 Yearly Adult Physical 04/21/2024 04/20/2023 COVID-19 Vaccine ( - season) 2025 07/07/2021, 10/30/2020, 10/03/2020 Influenza Vaccine (#1) 2025 03/30/2024 Diabetes Screening 03/20/2025 03/20/2022, 0 03/19/2022, 12/09/2021, Additional history exists Colonoscopy 01/26/2028 01/25/2018 Colorectal Cancer Screening 01/26/2028 DTaP/Tdap/Td Vaccines (2 - Td or Tdap) 01/08/2035 01/08/2025 HIB Vaccines Aged Out No longer eligi ble based on patient's age to complete this topic HPV Vaccines Aged Out No longer eligi ble based on patient's age to complete this topic Hepatitis A Vaccines Aged Out No long [...] Procedure Name Priority Date/Time Associated Diagnosis Comments TRANSTHORACIC ECHO (TTE) COMPLETE Routine 02/04/2025 9:39 AM EDT Essential hypertension, benign S/P TAVR (transcatheter aortic valve replacement) RENAL FUNCTION PANEL Routine 03/20/2022 2:26 AM EDT from Last 3 Months or Most Recently Relevant to Health Maintenance Results * TRANSTHORACIC ECHO (TTE) COMPLETE (02/04/2025 9:39 AM EDT) AV mn grad 16 mmHg SYNGO AV pk lowell 2.67 m/s SYNGO LV Biplane EF 71 % SYNGO LVOT diam 2.09 cm SYNGO MV E/A ratio 0.76 SYNGO Tricuspid annular plane systolic excursion 1.5 cm SYNGO MV avg E/e' ratio 11.38 SYNGO LA vol index A/L 29.0 ml/m2 SYNGO LV EF 63 % SYNGO RV free wall pk S' 15.45 cm/s SYNGO RVSP 22 mmHg SYNGO LVIDd 5.31 cm SYNGO Aortic Valve Area by Continuity of Peak Velocity 1.37 cm2 SYNGO AV pk grad 28 mmHg SYNGO Aortic Valve Area by Continuity of VTI 1.49 cm2 SYNGO LV A4C EF 75.7 SYNGO 02/04/2025 8:45 AM EDT Narrative SYNGO - 02/04/2025 3:14 PM EDT [address], [address] [address] TRANSTHORACIC ECHOCARDIOGRAM REPORT Patient Name: LEDY Conroy ADRIEL Reading Physician: [id number] Cage MD Study Date: 02/04/2025 Ordering Provider: [id number] CAGE MRN/PID: [id number] Fellow: Nurse: Date of /Age: 8 1960 Retouching Operator: Heide srivastava RDCS, RVT Gender Assigned at F Additional Staff: : Height: 175.26 cm Admit Date: Weight: 102.97 kg Admission Status: Outpatient BSA / BMI: 2.18 m2 / 33.52 Department Location: [facility] kg/[address] Blood Pressure: 142 /68 mmHg Study Type: TRANSTHORACIC ECHO (TTE) COMPLETE Diagnosis/ICD: Essential (primary) hypertension-I10; Presence of prosthetic heart valve-Z95.2 Indication: #29 Evolut FX TAVR-03/19/2022, Hyperlipidemia, 2/6 Sytolic Murmur, Obesity CPT Codes: Echo Complete w Full Doppler-[id number] Study Detail: The following Echo studies were performed: 2D, M-Mode, Doppler and color flow. PHYSICIAN INTERPRETATION: Left Ventricle: The left ventricular systolic function is normal with a visually estimated ejection fraction of 60-65%. There is mild concentric left ventricular hypertrophy. There are no regional wall motion abnormalities. The left ventricular cavity size is normal. There is mild increased septal and mildly increased posterior left ventricular wall thickness. Spectral Doppler shows a Grade I (impaired relaxation pattern) of left ventricular diastolic filling. Mild LVH. Left Atrium: The left atrial size is normal. Right Ventricle: The right ventricle is normal in size. There is normal right ventricular global systolic function. Right Atrium: The right atrial size is normal. Aortic Valve: There is a prosthetic aortic valve present. The aortic valve area by VTI is 1.49 cm with a peak velocity of 2.67 m/s. The peak and mean gradients are 27 mmHg and 16 mmHg, respectively, with a dimensionless index of 0.44. There is no evidence of aortic valve regurgitation. The aortic valve is bioprosthetic. Peak gradient measured around 28 mmHg. Mean gradient around 15 mmHg. Calculated aortic valve area is 1.4 cm consistent with good valve function. Mitral Valve: The mitral valve is normal in structure. There is mild mitral valve regurgitation. The E Vmax is 0.76 m/s. Tricuspid Valve: The tricuspid valve is structurally normal. There is trace to mild tricuspid regurgitation. The Doppler estimated right ventricular systolic pressure (RVSP) is within normal limits at 27 mmHg. Pulmonic Valve: The pulmonic valve is structurally normal. There is no indication of pulmonic valve regurgitation. Pericardium: No pericardial effusion noted. Aorta: The aortic root is normal. CONCLUSIONS: 1. The left ventricular systolic function is normal with a visually estimated ejection fraction of 60-65%. 2. Spectral Doppler shows a Grade I (impaired relaxation pattern) of left ventricular diastolic filling. 3. Mild LVH. 4. There is normal right ventricular global systolic function. 5. Mild mitral valve regurgitation. 6. The Doppler estimated RVSP is within normal limits at 27 mmHg. 7. Trace to mild tricuspid regurgitation. 8. The aortic valve is bioprosthetic. Peak gradient measured around 28 mmHg. Mean gradient around 15 mmHg. Calculated aortic valve area is 1.4 cm consistent with good valve function. 9. No significant changes noted when compared to previous study. QUANTITATIVE DATA SUMMARY: 2D MEASUREMENTS: Normal Ranges: Ao Root s: 2.70 cm LAs: 3.62 cm (2.7-4.0cm) RVIDd: 2.93 cm (0.9-3.6cm) IVSd: 1.28 cm (0.6-1.1cm) LVPWd: 1.20 cm (0.6-1.1cm) LVIDd: 5.31 cm (3.9-5.9cm) LVIDs: 3.21 cm LV Mass Index: 123.2 g/m2 LVEDV Index: 50.24 ml/m2 LV % FS 39.6 % LEFT ATRIUM: Normal Ranges: LA Vol A4C: 62.8 ml (22+/-6mL/m2) LA Vol A2C: 57.6 ml LA Vol BP: 63.3 ml LA Vol Index A4C: 28.8ml/m2 LA Vol Index A2C: 26.4 ml/m2 LA Vol Index BP: 29.0 ml/m2 LA Vol A4C: 57.1 ml LA Vol A2C: 53.4 ml LA Vol Index BSA: 25.3 ml/m2 LV SYSTOLIC FUNCTION: Normal Ranges: EF-A4C View: 76 % (>=55%) EF-A2C View: 67 % EF-Biplane: 71 % EF-Visual: 63 % LV EF Reported: 63 % LV DIASTOLIC FUNCTION: Normal Ranges: MV Peak E: 0.76 m/s (0.7-1.2 m/s) MV Peak A: 1.00 m/s (0.42-0.7 m/s) E/A Ratio: 0.76 (1.0-2.2) MV e' 0.068 m/s (>8.0) MV lateral e' 0.07 m/s MV medial e' 0.07 m/s E/e' Ratio: 11.12 (<8.0) MITRAL VALVE: Normal Ranges: MV DT: 317 msec (150-240msec) MITRAL INSUFFICIENCY: Normal Ranges: MR Vmax: 472.60 cm/s AORTIC VALVE: Normal Ranges: AoV Vmax: 2.67 m/s (<=1.7m/s) AoV Peak P.5 mmHg (<20mmHg) AoV Mean P.8 mmHg (1.7-11.5mmHg) LVOT Max Lowell: 1.07 m/s (<=1.1m/s) AoV VTI: 66.71 cm (18-25cm) LVOT VTI: 29.06 cm LVOT Diameter: 2.09 cm (1.8-2.4cm) AoV Area, VTI: 1.49 cm2 (2.5-5.5cm2) AoV Area,Vmax: 1.37 cm2 (2.5-4.5cm2) AoV Dimensionless Index: 0.44 RIGHT VENTRICLE: RV Basal 4.01 cm RV Mid 4.00 cm RV Major 5.6 cm TAPSE: 15.2 mm RV s' 0.15 m/s TRICUSPID VALVE/RVSP: Normal Ranges: Peak TR Velocity: 2.17 m/s Est. RA Pressure: 8 mmHg RV Syst Pressure: 27 mmHg (< 30mmHg) IVC Diam: 2.42 cm PULMONIC VALVE: Normal Ranges: RVOT Vmax: 1.09 m/s (0.6-0.9m/s) AORTA: Asc Ao Diam 3.53 cm [id number] Danilo Cage MD Electronically signed on 02/04/2025 at 3:14:48 PM Final Procedure Note Danilo Cage MD - 02/04/[address], [address] [place] [address] TRANSTHORACIC ECHOCARDIOGRAM REPORT Patient Name: LEDY Goel Physician: [id number] Leonard Study Date: 02/04/2025 Ordering Provider: GABINO CAGE MRN/PID: [id number] Fellow: Nurse: Date of /Age: 8 1960 Retouching Operator: Prabhjot srivastava RDCS, RVT Gender Assigned at F Additional Staff: : Height: 175.26 cm Admit Date: Weight: 102.97 kg Admission Status: Outpatient BSA / BMI: 2.18 m2 / 33.52 Department Location: [facility]/[address] Blood Pressure: 142 /68 mmHg Study Type: TRANSTHORACIC ECHO (TTE) COMPLETE Diagnosis/ICD: Essential (primary) hypertension-I10; Presence ofprosthetic heart valve-Z95.2 Indication: #29 Evolut FX TAVR-03/19/2022, Hyperlipidemia, 2/6 SytolicMurmur, Obesity CPT Codes: Echo Complete w Full Doppler-[id number] Study Detail: The following Echo studies were performed: 2D, M-Mode,Doppler and color flow. PHYSICIAN INTERPRETATION: Left Ventricle: The left ventricular systolic function is normal with avisually estimated ejection fraction of 60-65%. There is mild concentricleft ventricular hypertrophy. There are no regional wall motionabnormalities. The left ventricular cavity size is normal. There is mildincreased septal and mildly increased posterior left ventricular wallthickness. Spectral Doppler shows a Grade I (impaired relaxation pattern)of left ventricular diastolic filling. Mild LVH. Left Atrium: The left atrial size is normal. Right Ventricle: The right ventricle is normal in size. There is normalright ventricular global systolic function. Right Atrium: The right atrial size is normal. Aortic Valve: There is a prosthetic aortic valve present. The aortic valvearea by VTI is 1.49 cm with a peak velocity of 2.67 m/s. The peak andmean gradients are 27 mmHg and 16 mmHg, respectively, with a dimensionlessindex of 0.44. There is no evidence of aortic valve regurgitation. Theaortic valve is bioprosthetic. Peak gradient measured around 28 mmHg. Meangradient around 15 mmHg. Calculated aortic valve area is 1.4 cm consistent with good valve function. Mitral Valve: The mitral valve is normal in structure. There is mildmitral valve regurgitation. The E Vmax is 0.76 m/s. Tricuspid Valve: The tricuspid valve is structurally normal. There istrace to mild tricuspid regurgitation. The Doppler estimated rightventricular systolic pressure (RVSP) is within normal limits at 27 mmHg. Pulmonic Valve: The pulmonic valve is structurally normal. There is noindication of pulmonic valve regurgitation. Pericardium: No pericardial effusion noted. Aorta: The aortic root is normal. CONCLUSIONS: 1. The left ventricular systolic function is normal with a visuallyestimated ejection fraction of 60-65%. 2. Spectral Doppler shows a Grade I (impaired relaxation pattern) of leftventricular diastolic filling. 3. Mild LVH. 4. There is normal right ventricular global systolic function. 5. Mild mitral valve regurgitation. 6. The Doppler estimated RVSP is within normal limits at 27 mmHg. 7. Trace to mild tricuspid regurgitation. 8. The aortic valve is bioprosthetic. Peak gradient measured around 28mmHg. Mean gradient around 15 mmHg. Calculated aortic valve area is 1.4cm consistent with good valve function. 9. No significant changes noted when compared to previous study. QUANTITATIVE DATA SUMMARY: 2D MEASUREMENTS: Normal Ranges: Ao Root s: 2.70 cm LAs: 3.62 cm (2.7-4.0cm) RVIDd: 2.93 cm (0.9-3.6cm) IVSd: 1.28 cm (0.6-1.1cm) LVPWd: 1.20 cm (0.6-1.1cm) LVIDd: 5.31 cm (3.9-5.9cm) LVIDs: 3.21 cm LV Mass Index: 123.2 g/m2 LVEDV Index: 50.24 ml/m2 LV % FS 39.6 % LEFT ATRIUM: Normal Ranges: LA Vol A4C: 62.8 ml (22+/-6mL/m2) LA Vol A2C: 57.6 ml LA Vol BP: 63.3 ml LA Vol Index A4C: 28.8ml/m2 LA Vol Index A2C: 26.4 ml/m2 LA Vol Index BP: 29.0 ml/m2 LA Vol A4C: 57.1 ml LA Vol A2C: 53.4 ml LA Vol Index BSA: 25.3 ml/m2 LV SYSTOLIC FUNCTION: Normal Ranges: EF-A4C View: 76 % (>=55%) EF-A2C View: 67 % EF-Biplane: 71 % EF-Visual: 63 % LV EF Reported: 63 % LV DIASTOLIC FUNCTION: Normal Ranges: MV Peak E: 0.76 m/s (0.7-1.2 m/s) MV Peak A: 1.00 m/s (0.42-0.7 m/s) E/A Ratio: 0.76 (1.0-2.2) MV e' 0.068 m/s (>8.0) MV lateral e' 0.07 m/s MV medial e' 0.07 m/s E/e' Ratio: 11.12 (<8.0) MITRAL VALVE: Normal Ranges: MV DT: 317 msec (150-240msec) MITRAL INSUFFICIENCY: Normal Ranges: MR Vmax: 472.60 cm/s AORTIC VALVE: Normal Ranges: AoV Vmax: 2.67 m/s (<=1.7m/s) AoV Peak P.5 mmHg (<20mmHg) AoV Mean P.8 mmHg (1.7-11.5mmHg) LVOT Max Lowell: 1.07 m/s (<=1.1m/s) AoV VTI: 66.71 cm (18-25cm) LVOT VTI: 29.06 cm LVOT Diameter: 2.09 cm (1.8-2.4cm) AoV Area, VTI: 1.49 cm2 (2.5-5.5cm2) AoV Area,Vmax: 1.37 cm2 (2.5-4.5cm2) AoV Dimensionless Index: 0.44 RIGHT VENTRICLE: RV Basal 4.01 cm RV Mid 4.00 cm RV Major 5.6 cm TAPSE: 15.2 mm RV s' 0.15 m/s TRICUSPID VALVE/RVSP: Normal Ranges: Peak TR Velocity: 2.17 m/s Est. RA Pressure: 8 mmHg RV Syst Pressure: 27 mmHg (< 30mmHg) IVC Diam: 2.42 cm PULMONIC VALVE: Normal Ranges: RVOT Vmax: 1.09 m/s (0.6-0.9m/s) AORTA: Asc Ao Diam 3.53 cm [id number] Danilo Cage MD Electronically signed on 02/04/2025 at 3:14:48 PM Final us Danilo Cage MD CV ECHO PROCEDURES Final R esult SYNGO * (ABNORMAL) Renal Function Panel (03/20/2022 2:26 AM EDT) Glucose 127(H) 74 - 99 mg/dL [facility] Sodium 140 136 - 145 mmol/L [facility] Potassium 4.2 3.5 - 5.3 mmol/L [facility] Chloride 106 98 - 107 mmol/L [facility] Bicarbonate 24 21 - 32 mmol/L [facility] Anion Gap 14 10 - 20 mmol/L [facility] Urea Nitrogen 15 6 - 23 mg/dL [facility] Creatinine 0.98 0.50 - 1.05 mg/dL [facility] GFR Female 66 >90 mL/min/1. 73m2 [facility] Comment: CALCULATIONS OF ESTIMATED GFR ARE PERFORMED USING THE 2020 CKD-EPI STUDY REFIT EQUATION WITHOUT THE RACE VARIABLE FOR THE IDMS-TRACEABLE CREATININE METHODS. https://jasn.asnjournals.org/content/early/ASN.9317422351 Calcium 8.8 8.6 - 10.6 mg/dL [facility] Phosphorus 5.0(H) 2.5 - 4.9 mg/dL [facility] Comment: The performance characteristics of phosphorus testing in heparinized plasma have been validated by the individual laboratory site where testing is performed. Testing on heparinized plasma is not approved by the FDA; however, such approval is not necessary. 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
--- OUTSIDE RECORDS SUMMARY | 2025-04-06 08:46 | XMS_ITS | Encounter Summary ---
Author Organization [facility] Address [address] [place] [address] Care Team Providers Care Motor And Generator Brush Maker Name Role Phone Oswaldo Grewal MD Primary Care Provider [phone] Danilo Cage MD Unavailable [phone] Source Comments In the event this information is protected by the Federal Confidentiality of Alcohol and Drug AbusePatient Records regulations: The Federal rules restrict any use of the information to criminally investigate or prosecute any alcohol or drug abuse patient.[facility] Encounter Details Date Type Department Care Team (Late st Contact Info) Description 05/31/2022 Radiology Radiology [address] [place] [address] Aline Stone, RT(R) Social History Tobacco Use [...] N ot on file 12/09/2021 Data from: [email or web address].medicine.[email or web address].[email or web address] Last address used for calculation [address] [...] PATIENT NAME: Ledy Johnson DATE OF SERVICE: May 31, 2022 TIME: [...] documented as of this encounter Care Teams Motor And Generator Brush Maker Relationship Specialty Start Date End Date Oswaldo Grewal MD [address] [place] [address] PCP - General Family Medicine 06/09/18 Danilo Cage MD [address] [place] [address] Cardiology 08/04/22 documented as of this encounter
--- OUTSIDE RECORDS SUMMARY | 2025-04-06 08:46 | XMS_ITS | Encounter Summary ---
Author Organization [facility] Address [address] [place] [address] Care Team Providers Care Vein Pumper Name Role Phone Oswaldo Grewal MD Primary Care Provider [phone] Guerline Escobar MATERIAL ASSEMBLER Unavailable [phone] Noemi Ramirez MATERIAL ASSEMBLER Unavailable Encounter Details Date Type Department Care Team (Late st Contact Info) Description 01/08/2025 Abstract [facility] [address] [place] [phone] Oswaldo Grewal MD [address] [place] [address] Social History Tobacco Use Types [...] [facility] [address] [place] [address] Guerline Escobar, KEO [address] [place] [address] documented as of this encounter Visit Diagnoses Not on filedocumented in this encounter Care Teams Vein Pumper Relationship Specialty Start Date End Date Oswaldo Grewal MD [address] [place] [address] PCP - General Family Medicine 12/04/22 Guerline Escobar, MATERIAL ASSEMBLER [address] [place] [address] Nurse Practitioner Pulmonary Disease 09/20/23 Noemi Ramirez NP [address] [place] [place] [phone] Nurse Practitioner Family Medicine 09/20/23 01/12/25 documented as of this encounter
--- OUTSIDE RECORDS SUMMARY | 2025-04-06 08:46 | XMS_ITS | Encounter Summary ---
Author Organization [facility] Address [address] [place] [address] Phone Care Team Providers Care Lab Nurse Name Role Phone Oswaldo Grewal MD Primary Care Provider [phone] Encounter Details Date Type Department Care Team (Late st Contact Info) Description 01/29/2022 Orders Only [facility] [address] [place] [address] Conversion, Onbase Social History Tobacco Use Types [...] Description 04/11/2026 9:50 AM EDT Office Visit [facility] [address] [facility] [address] [place] [address] Danilo Cage MD [address] [facility] [address] [place] [address] Scheduled Orders Name Type Priority Associated Diagnoses Orde r Schedule OUTSIDE LAB SCAN Lab Ordered: 01/29/2022 documented as of this encounter Visit Diagnoses Not on filedocumented in this encounter Care Teams Lab Nurse Relationship Specialty Start Date End Date Oswaldo Grewal MD [address] [place] [address] PCP - General 12/18/18 documented as of this encounter
--- OUTSIDE RECORDS SUMMARY | 2025-04-06 08:46 | XMS_ITS | Encounter Summary ---
Author Organization [facility] Address [address] [place] [address] Care Team Providers Care Supervisor Tank Storage Name Role Phone Oswaldo Grewal MD Primary Care Provider [phone] Danilo Cage MD Unavailable [phone] Source Comments In the event this information is protected by the Federal Confidentiality of Alcohol and Drug AbusePatient Records regulations: The Federal rules restrict any use of the information to criminally investigate or prosecute any alcohol or drug abuse patient.[facility] Reason for Visit * Reason Comments Radiology XR Encounter Details Date Type Department Care Team (Late st Contact Info) Description 08/03/2021 Radiology Radiology [address] [place] [address] Aline Stone, RT(R) Radiology XR Social History [...] N ot on file 06/24/2020 Data from: https://www.neighborhoodatlas.medicine.[facility].edu/. Last address used for calculation Not [...] Author No 07/03/2014 9:39 AM EST Regina eRyes MA * Do you have serious difficulty [...] documented as of this encounter Care Teams Supervisor Tank Storage Relationship Specialty Start Date End Date Oswaldo Grewal MD [address] [place] [address] PCP - General Family Medicine 06/09/18 Danilo Cage MD [address] [place] [address] Cardiology 08/04/22 documented as of this encounter
--- OUTSIDE RECORDS SUMMARY | 2025-04-06 08:46 | XMS_ITS | Encounter Summary ---
Author Organization [facility] Address [address] [place] [address] Phone Care Team Providers Care Office Runner Name Role Phone Oswaldo Grewal MD Primary Care Provider [phone] Encounter Details Date Type Department Care Team (Late st Contact Info) Description 09/17/2022 Orders Only [facility] [address] [place] [address] Conversion, Onbase Social History Tobacco Use Types [...] Description 04/11/2026 9:50 AM EDT Office Visit [facility] [address] [facility] [address] [place] [address] Danilo Cage MD [address] [facility] [address] [place] [address] Scheduled Orders Name Type Priority Associated Diagnoses Orde r Schedule OUTSIDE LAB SCAN Lab Ordered: 09/17/2022 documented as of this encounter Visit Diagnoses Not on filedocumented in this encounter Care Teams Office Runner Relationship Specialty Start Date End Date Oswaldo Grewal MD [address] [place] [address] PCP - General 12/18/18 documented as of this encounter
--- OUTSIDE RECORDS SUMMARY | 2025-04-06 08:46 | XMS_ITS | Encounter Summary ---
Author Organization [facility] Address [address] [place] [address] Care Team Providers Care Inspector Final Assembly Mechanical Name Role Phone Oswaldo Grewal MD Primary Care Provider [phone] Danilo Cage MD Unavailable [phone] Source Comments In the event this information is protected by the Federal Confidentiality of Alcohol and Drug AbusePatient Records regulations: The Federal rules restrict any use of the information to criminally investigate or prosecute any alcohol or drug abuse patient.[facility] Reason for Visit * Reason Comments Radiology XR Encounter Details Date Type Department Care Team (Late st Contact Info) Description 02/28/2023 Radiology Radiology [address] [place] [address] Radha Le, RT(R) Radiology XR Social History [...] is lower risk 9 11/29/2022 Data from: https://www.neighborhoodatlas.medicine.[facility]/. Last address used for calculation [address] [...] filedocumented in this encounter Care Teams Inspector Final Assembly Mechanical Relationship Specialty Start Date End Date Oswaldo Grewal MD [address] [place] [address] PCP - General Family Medicine 06/09/18 Danilo Cage MD [address] [place] [address] Cardiology 08/04/22 documented as of this encounter
--- OUTSIDE RECORDS SUMMARY | 2025-04-06 08:46 | XMS_ITS | Encounter Summary ---
Author Organization [facility] Address [address] [place] [address] Care Team Providers Care Insurance Examiner Name Role Phone Oswaldo Grewal MD Primary Care Provider [phone] Guerline Escobar WEAVE DEFECT CHARTING CLERK Unavailable [phone] Noemi Ramirez NP Unavailable Encounter Details Date Type Department Care Team (Late st Contact Info) Description 04/02/2024 Abstract [facility] [address] [place] [address] Noemi Ramirez NP [address] [facility] [address] [place] [address] Social History Tobacco Use Types Packs/Day Years [...] [facility] [address] [place] [address] Guerline Escobar, KEO [address] [place] [address] documented as of this encounter Visit Diagnoses Not on filedocumented in this encounter Care Teams Insurance Examiner Relationship Specialty Start Date End Date Oswaldo Grewal MD [address] [place] [address] PCP - General Family Medicine 12/04/22 Guerline Escobar, KEO [address] [place] [address] Nurse Practitioner Pulmonary Disease 09/20/23 Noemi Ramirez NP [address] [place] [address] Nurse Practitioner Family Medicine 09/20/23 01/12/25 documented as of this encounter
--- OUTSIDE RECORDS SUMMARY | 2025-04-06 08:46 | XMS_ITS | Encounter Summary ---
Author Organization [facility] Address [address] [facility] [place] [address] Care Team Providers Care Manager Market Development Name Role Phone Oswaldo Grewal MD Primary Care Provider [phone] Guerline Escobar CONTENT ANALYST Unavailable [phone] Encounter Details Date Type Department Care Team (Late Contact Info) Description 01/13/2025 Abstract [facility] [address] [place] [address] Guerline Escobar NP [address] [place] [address] Social History Tobacco Use Types [...] [facility] [address] [place] [address] Guerline Escobar, KEO [address] [place] [address] documented as of this encounter Visit Diagnoses Not on filedocumented in this encounter Care Teams Manager Market Development Relationship Specialty Start Date End Date Oswaldo Grewal MD [address] [place] [address] PCP - General Family Medicine 12/04/22 Guerline Escobar NP [address] [place] [address] Nurse Practitioner Pulmonary Disease 09/20/23 documented as of this encounter
--- OUTSIDE RECORDS SUMMARY | 2025-04-06 08:46 | XMS_ITS | Encounter Summary ---
Author Organization [facility] Address [address] [place] [address] Phone Care Team Providers Care Side Seam Tender Name Role Phone Oswaldo Grewal MD Primary Care Provider [phone] Encounter Details Date Type Department Care Team (Late st Contact Info) Description 03/02/2022 Orders Only [facility] [address] [place] [address] Conversion, Onbase Social History Tobacco Use Types [...] Description 04/11/2026 9:50 AM EDT Office Visit [facility] [address] [facility] [address] [place] [address] Danilo Cage MD [address] [facility] [address] [place] [address] Scheduled Orders Name Type Priority Associated Diagnoses Orde r Schedule OUTSIDE LAB SCAN Lab Ordered: 03/02/2022 documented as of this encounter Visit Diagnoses Not on filedocumented in this encounter Care Teams Side Seam Tender Relationship Specialty Start Date End Date Oswaldo Grewal MD [address] [place] [address] PCP - General 12/18/18 documented as of this encounter
--- OUTSIDE RECORDS SUMMARY | 2025-04-06 08:46 | XMS_ITS | Clinical Summary ---
Author Organization [facility] Address [address] [place] [address] Care Team Providers Care Principal Systems Engineer Name Role Phone sOwaldo Grewal MD Primary Care Provider [phone] Guerline Escobar SALES ASSISTANT INSTITUTIONAL SALES Unavailable [phone] Allergies Active Allergy Reactions Criticality Noted [...] oxyCODONE (Roxicodone) 5 MG immediate release tablet 08/20/19 23 Active chlorthalidone (Hygroton) 25 MG tablet Take 25 mg by mouth Daily 12/01/19 23 Active brimonidine (AlphaGAN P) 0.2 % ophthalmic solution Administer 1 drop into both eyes in the morning and 1 drop before bedtime. 02/16/20 23 Active latanoprost (Xalatan) 0.005 % ophthalmic solution Administer 1 drop into both eyes at bedtime 02/16/20 23 Active prednisoLONE acetate (Pred-Forte) 1 % ophthalmic suspension 03/23/20 23 Active valACYclovir (Valtrex) 1 g tablet Take 1,000 mg by mouth Daily as directed 04/04/20 23 Active predniSONE (Deltasone) 20 MG tabletIndication s:Acute left-sided low back pain with left-sided sciatica Take two tablets (40 mg) daily for five days, then take one tablet (20 mg) daily for five days. Take with food. 15 tablet 09/18/19 25 Active rOPINIRole (Requip) 0.25 MG tabletIndication s:Restless Leg Syndrome Take 1 tablet (0.25 mg) by mouth 6 (six) times a day Patient states she takes it 1 in the morning, 1 at lunch, 2 in the evening and 2 at bed 180 tablet 11 10/11/19 25 Active dicyclomine (Bentyl) 20 MG tabletIndication s:Irritable bowel syndrome, unspecified type Take 1 tablet (20 mg) by mouth in the morning and 1 tablet (20 mg) before bedtime. 60 tablet 5 11/13/19 25 025 Active levothyroxine (Synthroid, Levoxyl) 100 MCG tablet TAKE 1 TABLET BY MOUTH EVERY MORNING BEFORE A MEAL 09/27/19 25 Active tiZANidine (Zanaflex) 4 MG tabletIndication s:Acute left-sided low back pain with left-sided sciatica Take 1 tablet (4 mg) by mouth at bedtime 30 tablet 3 11/17/19 25 Active magnesium oxide (Mag-Ox) 400 mg tabletIndication s:RLS (restless legs syndrome) Take 1 tablet (400 mg) by mouth in the morning and 1 tablet (400 mg) before bedtime. 180 tablet 3 12/12/19 25 026 Active gabapentin (Neurontin) 300 MG capsuleIndicatio ns:RLS (restless legs syndrome) Take 1 capsule (300 mg) by mouth in the morning and 1 capsule (300 mg) in the evening and 1 capsule (300 mg) before bedtime. 270 capsule 1 01/15/20 25 025 Active amLODIPine (Norvasc) 10 MG tabletIndication s:Primary hypertension Take 1 tablet (10 mg) by mouth Daily 90 tablet 1 02/01/20 25 026 Active atorvastatin (Lipitor) 10 MG tabletIndication s:Hypertriglycer idemia Take 1 tablet (10 mg) by mouth Daily 90 tablet 1 02/01/20 25 026 Active rOPINIRole (Requip) 1 MG tabletIndication s:Restless Leg Syndrome Take 1 tablet (1 mg) by mouth in the morning and 1 tablet (1 mg) in the evening and 1 tablet (1 mg) before bedtime. 270 tablet 1 02/01/20 25 026 Active loteprednol (Lotemax) 0.5 % ophthalmic suspension INSTILL 1 DROP INTO LEFT EYE TWICE A DAY DIRECTED 12/13/19 25 Active acetaZOLAMIDE (Diamox) 500 MG 12 hr capsule TAKE 1 CAPSULE BY MOUTH TWICE A DAY DIRECTED 01/21/20 25 Active valsartan (Diovan) 320 MG tabletIndication s:Irritable bowel syndrome, unspecified type Take 1 tablet (320 mg) by mouth Daily 90 tablet 1 02/01/20 25 026 Active omeprazole (PriLOSEC) [address] capsuleIndicatio ns:Gastroesophag eal reflux disease without esophagitis Take 1 capsule (40 mg) by mouth in the morning. Take before meals. Do not crush or chew. 90 capsule 3 02/01/20 25 026 Active meloxicam (Mobic) 7.5 MG tabletIndication s:Carpal tunnel syndrome, bilateral TAKE 1 TABLET(7.5 MG) BY MOUTH DAILY 30 tablet 3 03/25/20 25 Active meloxicam (Mobic) 7.5 MG tabletIndication s:Carpal tunnel syndrome, bilateral Take 1 tablet (7.5 mg) by mouth Daily 08/03/19 25 025 Discontinued Active Problems Problem Noted Date Diagnosed Date [...] (03/19/2022- ) Follows with Cardiology Dr. Josep Cage, ( last visit 04/01/2022, next visit [...] Encounters Date Type Department Care Team Description 04/01/2025 Orders Only [facility] [address] [place] [address] Guerline Escobar NP 03/25/2025 Refill [facility] [address] [place] [address] Christiano Gregg MD Carpal tunnel syndrome, bilateral (Primary Dx) 03/25/2025 Telephone [facility] [address] [place] [address] Oswaldo Grewal MD 03/20/2025 Abstract [facility] [address] [place] [address] Guerline Escobar NP 03/19[facility] [address] [place] [address] Guerline Escobar NP Lab Orders (Needs Micro Urine. (Has other labs ordered, Not done)) 02/26/2025 Telephone [facility] [address] [place] [address] Christiano Gregg MD 02/20/2025 [facility] [address] [place] [address] Guerline Escobar NP 02/04/2025 Clinisync Result Encounter [facility] External Department Unsolicited Provider, Generic External Data 01/31/2025 9:00 AM EDT [facility] [address] [place] [address] Guerline Escobar NP Type 2 diabetes mellitus without complication, without long-term current use of insulin (HCC) (Primary Dx); Primary hypertension ; Hypertriglyceridemia ; Restless legs syndrome; Encounter for screening mammogram for breast cancer; Irritable bowel syndrome, unspecified type; Gastroesophageal reflux disease without esophagitis 01/31/2025 Abstract [facility] [address] [place] [address] Guerline Escobar NP 01/31/2025 Travel 01/29/2025 Abstract [facility] [address] [place] [address] Guerline Escobar NP 01/14/2025 Orders Only [facility] [address] [place] [address] Oswaldo Grewal MD RLS (restless legs syndrome) (Primary Dx) 01/14/2025 Telephone [facility] [address] [place] [address] Oswaldo Grewal MD Med Refill 01/13/2025 Abstract [facility] [address] [place] [address] Guerline Escobar NP 01/08/2025 Abstract [facility] [address] [place] [address] Guerline Escobar NP 01/08/2025 Abstract [facility] [address] [place] [address] Oswaldo Grewal MD from Last 3 Months [...] Artis 34 y/o Relation Name Status Comments Brothletha [place] Daughter Eugenie Alive Father Art Mother Yazmin [...] Sign Reading Time Taken Comments Blood Pressure 162/82 01/31/2025 8:58 AM EDT Pulse 74 01/31/2025 8:58 AM EDT Temperature 36.3 C (97.3 F) 01/31/2025 8:58 AM EDT Respiratory Rate 18 01/31/2025 8:58 AM EDT Oxygen Saturation 98% 01/31/2025 8:58 AM EDT Inhaled Oxygen Concentration - - Weight 108 kg (238 lb) 01/31/2025 8:58 AM EDT Height 172.7 cm (5' 8 ) 01/31/2025 8:58 AM EDT Body Mass Index 36.19 01/31/2025 8:58 AM EDT Plan of Treatment Upcoming Encounters Date Type Department Care Team (Late st Contact Info) Description 08/01/2025 9:00 AM EST Office Visit [facility] [address] [place] [address] Guerline Escobar, SALES ASSISTANT INSTITUTIONAL SALES [address] [place] [address] Health Maintenance Due Date Last Done Comments CT Colonography 1961 FIT-DNA 1961 FIT 1960 FOBT 1960 Sigmoidoscopy 1961 Pap Smear 1982 HPV/Cotest 1991 Influenza Vaccine (#1) 2025 , 05/15/2014, 05/15/2013 Diabetes: Urine Protein Screening 03/30/2025 03/30/2024, 06/08/2022, 01/08/2020, Additional history exists Mammogram 06/14/2025 03/14/2023 Diabetes: Hemoglobin A1C 08/03/2025 025, 08/03/2024, 03/30/2024, Additional history exists Cervical Cancer Screening 01/31/2026 Po stponed from 1991 (Patient Refused) Diabetes: Retinopathy Screening 04/01/2027 04/01/2025, 02/20/2023, 01/21/2023, Additional history exists Colonoscopy 01/26/2028 01/25/2018, 01/16/2018 Colorectal Cancer Screening 01/26/2028 Procedures Procedure Name Priority Date/Time Associated Diagnosis Comments DIABETIC RETINOPATHY SCREENING - OU - BOTH EYES Routine 04/01/2025 4:10 PM EDT TRANSTHORACIC ECHO (TTE) COMPLETE 02/04/2025 8:45 AM EDT POCT GLYCOSYLATED HEMOGLOBIN (HGB A1C) Routine 01/31/2025 9:21 AM EDT Type 2 diabetes mellitus without complication, without long-term current use of insulin (HCC) POCT MICROALBUMIN Routine 03/30/2024 9:0 0 AM EDT Type 2 diabetes mellitus without complication, unspecified whether prison insulin use (HCC) BI MAMMOGRAM SCREENING BILATERAL Routine 03/14/2023 4:25 PM EDT Screening mammogram for breast cancer COLONOSCOPY Routine 01/25/2018 12:00 PM EDT from Last 3 Months or Most Recently Relevant to Health Maintenance Results * Diabetic Retinopathy Screening - OU - Both Eyes (04/01/2025 4:10 PM EDT) Anatomical Region Laterality Modality Head Other us Guerline Escobar NP OPHTH PHOTOGRAPHY Final Resul t * Transthoracic echo (TTE) complete (02/04/2025 8:45 AM EDT) Anatomical Region Laterality Modality Ultrasound 02/04/2025 8:45 AM EDT Narrative 02/04/2025 3:14 PM EDT [address], Suite [facility], [place] [address] TRANSTHORACIC ECHOCARDIOGRAM REPORT Patient Name: LEDY MOREL Reading Physician: [id number] Josep Cage MD Study Date: 02/04/2025 Ordering Provider: [id number] JOSEP JENKINSCeleste MRN/PID: [id number] Fellow: Nurse: Date of /Age: 8 1960 [employer] Associate: Heied srivastava RDCS, RVT Gender Assigned at F Additional Staff: : Height: 175.26 cm Admit Date: Weight: 102.97 kg Admission Status: Outpatient BSA / BMI: 2.18 m2 / 33.52 Department Location: 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 with a peak velocity of 2.67 m/s. The peak and mean gradients are 27 mmHg and 16 mmHg, respectively, with a dimensionless index of 0.44. There is no evidence of aortic valve regurgitation. The aortic valve is bioprosthetic. Peak gradient measured around 28 mmHg. Mean gradient around 15 mmHg. Calculated aortic valve area is 1.4 cm??? consistent with good valve function. Mitral Valve: [...] mmHg. Calculated aortic valve area is 1.4 cm??? consistent with good valve function. 9. No [...] (0.6-0.9m/s) AORTA: Asc Ao Diam 3.53 cm [id number] Josep Cage MD Electronically signed on 02/04/2025 at 3:14:48 PM Final Procedure Note Radiology, Radiologist, - 02/04/2025 [facility] [address] [facility], [address], [place] [address] TRANSTHORACIC ECHOCARDIOGRAM REPORT Patient Name: LEDY MOREL Reading Physician: [id number] Leonard Study Date: 02/04/2025 Ordering Provider: [id number] CAGE MRN/PID: [id number] Fellow: Nurse: Date of /Age: 8 1960 Book Store Associate: Prabhjot srivastava RDCS, RVT Gender Assigned at F Additional Staff: : Height: 175.26 cm Admit Date: Weight: 102.97 kg Admission Status: Outpatient BSA / BMI: 2.18 m2 / 33.52 [facility] [place] Blood Pressure: 142 /68 mmHg Study Type: TRANSTHORACIC ECHO (TTE) COMPLETE Diagnosis/ICD: Essential (primary) hypertension-I10; Presence ofprosthetic heart valve-Z95.2 Indication: #29 Evolut FX TAVR-03/19/2022, Hyperlipidemia, 2/6 SytolicMurmur, Obesity CPT Codes: Echo Complete w Full Doppler-[id number] Study Detail: The following Echo studies were [...] The aortic valvearea by VTI is 1.49 cm??? with a peak velocity of 2.67 m/s. The peak andmean gradients are 27 mmHg and 16 mmHg, respectively, with a dimensionlessindex of 0.44. There is no evidence of aortic valve regurgitation. Theaortic valve is bioprosthetic. Peak gradient measured around 28 mmHg. Meangradient around 15 mmHg. Calculated aortic valve area is 1.4 cm???consistent with good valve function. Mitral Valve: The [...] 15 mmHg. Calculated aortic valve area is 1.4cm??? consistent with good valve function. 9. No [...] (0.6-0.9m/s) AORTA: Asc Ao Diam 3.53 cm [id number] Josep Cage MD Electronically signed on 02/04/2025 at 3:14:48 PM Final us Generic External Data Provider CV ECHO PROCEDURE S Final Result * POCT glycosylated hemoglobin (Hb A1C) docked device (01/31/2025 9:21 AM EDT) Hemoglobin A1C 5.8 Blood Venous blood specimen / Unknown 01/31/2025 9:21 AM EDT us Guerline Escobar SALES ASSISTANT INSTITUTIONAL SALES POINT OF CARE TEST ENTER/EDIT ORDERABLES Final Result * (ABNORMAL) POCT microalbumin manually resulted (03/30/2024 9:00 AM EDT) MICROALBUMIN, URINE 300 Comment:moderately increased Urine 03/30/2024 9:00 AM EDT us Noemi Ramriez NP POINT OF CARE TEST ENTER/EDIT OR DERABLES Final Result * Bilateral screening mammogram (03/14/2023 4:25 PM EDT) us Noemi Ramirez SALES ASSISTANT INSTITUTIONAL SALES IMG BI PROCEDURES Final Result Performing Organization Address City/State/[facility] Co de Phone Number [facility] [address] [place] [address], * Colonoscopy (01/25/2018 12:00 PM EDT) Anatomical Region Laterality Modality Endoscopy 01/25/2018 12:0 0 PM EDT Narrative 01/25/2018 12:00 PM EDT PERFORMED AT [facility] LOCATION:[id number] Normal Procedure Note CONVERSION, GENERIC - 12/01/2022 PERFORMED AT [facility] LOCATION:[id number] Normal us Oswaldo Grewal MD ENDOSCOPY PROCEDURE ORDERABLES Final Result from Last 3 Months or Most Recently Relevant to Health Maintenance Insurance [employer] Care Teams Principal Systems Engineer Relationship Specialty Start Date End Date Oswaldo Grewal MD [address] [place] [address] PCP - General Family Medicine 12/04/22 Guerline Escobar NP [address] [place] [address] Nurse Practitioner Pulmonary Disease 09/20/23
--- OUTSIDE RECORDS SUMMARY | 2025-04-06 08:46 | XMS_ITS | Encounter Summary ---
Author Organization [facility] Address [address] [facility] [place] [address] Care Team Providers Care Police Captain Precinct Name Role Phone Oswaldo Grewal MD Primary Care Provider [phone] Guerline Escobar CARBON FURNACE OPERATOR Unavailable [phone] Noemi Ramirez NP Unavailable Encounter Details Date Type Department Care Team (Late st Contact Info) Description 01/08/2025 Abstract [facility] [address] [place] [address] Guerline Escobar CARBON FURNACE OPERATOR [address] [place] [address] Social History Tobacco Use Types [...] [facility] [address] [place] [address] Guerline Escobar NP [address] [place] [address] documented as of this encounter Visit Diagnoses Not on filedocumented in this encounter Care Teams Police Captain Precinct Relationship Specialty Start Date End Date Oswaldo Grewal MD [address] [place] [address] PCP - General Family Medicine 12/04/22 Guerline Escobar NP [address] [place] [address] Nurse Practitioner Pulmonary Disease 09/20/23 Noemi Ramirez NP [address] [place] [address] Nurse Practitioner Family Medicine 09/20/23 01/12/25 documented as of this encounter
--- OUTSIDE RECORDS SUMMARY | 2025-04-06 08:46 | XMS_ITS | Encounter Summary ---
Author Organization [facility] Address [address] [place] [id number] Care Team Providers Care Chair Installer Name Role Phone Oswaldo Grewal MD Primary Care Provider [phone] Danilo Cage MD Unavailable [phone] Source Comments In the event this information is protected by the Federal Confidentiality of Alcohol and Drug AbusePatient Records regulations: The Federal rules restrict any use of the information to criminally investigate or prosecute any alcohol or drug abuse patient.[facility] Reason for Visit * Reason Comments Radiology XR Encounter Details Date Type Department Care Team (Late st Contact Info) Description 07/29/2023 Radiology Radiology [address] [place] [address] Dafne Davenport, RT(R) Radiology XR Social History [...] is lower risk 9 11/29/2022 Data from: https://www.neighborhoodatlas.medicine.[facility].edu/. Last address used for calculation [address] [...] on filedocumented in this encounter Care Teams Chair Installer Relationship Specialty Start Date End Date Oswaldo Grewal MD [address] [place] [phone] PCP - General Family Medicine 06/09/18 Danilo Cage MD [address] [place] [phone] Cardiology 08/04/22 documented as of this encounter
--- OUTSIDE RECORDS SUMMARY | 2025-04-06 08:46 | XMS_ITS | Encounter Summary ---
Author Organization [facility] Address [address] [facility] [place] [address] Care Team Providers Care Clinical Nurse Manager Name Role Phone Oswaldo Grewal MD Primary Care Provider [phone] Guerline Escobar MARKETING OPERATIONS COORDINATOR Unavailable [phone] Noemi Ramirez NP Unavailable Reason for Visit * Reason Comments Med Refill Encounter Details Date Type Department Care Team (Late st Contact Info) Description 06/27/2023 Refill [facility] [address] [place] [address] Noemi Ramirez NP [address] [place] [address] Primary osteoarthritis involving multiple joints Social History [...] 08/01/2025 9:00 AM EST Office Visit [facility] [address] [place] [phone] Guerline Escobar NP [address] [place] [phone] documented as of this encounter Visit Diagnoses Diagnosis Primary osteoarthritis involving multiple joints documented in this encounter Care Teams Clinical Nurse Manager Relationship Specialty Start Date End Date Oswaldo Grewal MD [address] [place] [address] PCP - General Family Medicine 12/04/22 Guerline Escobar NP [address] [place] [phone] Nurse Practitioner Pulmonary Disease 09/20/23 Noemi Ramirez NP [address] [place] [phone] Nurse Practitioner Family Medicine 09/20/23 01/12/25 documented as of this encounter
--- OUTSIDE RECORDS SUMMARY | 2025-04-06 08:46 | XMS_ITS | Encounter Summary ---
Author Organization [facility] Address [address] [place] [address] Phone Care Team Providers Care Java Lead Architect Name Role Phone Oswaldo Grewal MD Primary Care Provider [phone] Encounter Details Date Type Department Care Team (Late st Contact Info) Description 03/12/2022 Orders Only [facility] [address] [place] [address] Conversion, Onbase Social History Tobacco Use Types [...] Description 04/11/2026 9:50 AM EDT Office Visit [facility] [address] [facility] [address] [place] [address] Danilo Cage MD [address] [facility] [address] [place] [address] Scheduled Orders Name Type Priority Associated Diagnoses Orde r Schedule OUTSIDE LAB SCAN Lab Ordered: 03/12/2022 documented as of this encounter Visit Diagnoses Not on filedocumented in this encounter Care Teams Java Lead Architect Relationship Specialty Start Date End Date Oswaldo Grewal MD [address] [place] [phone] PCP - General 12/18/18 documented as of this encounter
--- OUTSIDE RECORDS SUMMARY | 2025-04-06 08:47 | XMS_ITS | CCD ---
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 Name Role Phone Oswaldo Grewal MD Primary Care Provider Oswaldo Grewal Unavailable Unavailable Unavailable Kindra Peralta Unavailable MARY KATE Bhardwaj Primary Care Provider MD Josep Perdomo Attending Provider MD Jose Jordan Attending Provider Oswaldo Grewal Unavailable Lashon Longoria Unavailable Josep Perdomo Unavailable [phone] Abdiaziz Nash Unavailable Unavailable Amanda Saucedo Unavailable Unavailable Oswaldo Grewal MD Primary Care Provider MARY KATE Bhardwaj Primary Care Provider DO Spenser Canchola Attending Provider MARY KATE Bhardwaj Primary Care Provider DO Spenser Canchola Attending Provider [phone] Oswaldo Grewal MD Primary Care Provider KEO Daniels Primary Care Provider KEO Daniels Attending Provider [phone] Josep Perdomo Unavailable VIOLET COMBS Admitting Unavailable VIOLET COMBS Attending Unavailable OSWALDO GREWAL Primary Care Unavailable KEO Daniels Primary Care Provider Unavailab le DO Spenser Canchola Attending Provider KEO Daniels Attending Provider Unavailable JEREMIAH, NOEMI Admitting Unavailable JEREMIAH, NOEMI Attending Unavailable KIEPERT, YAJAIRA Primary Care Unavailable MISC, DR HUSSEIN Admitting Unavailable MISC, DR HUSSEIN Attending Unavailable KIEPERT, YAJAIRA Primary Care Unavailable MISC, DOCTOR Consulting Unavailable JEREMIAH, NEOMI Admitting Unavailable JEREMIAH, NOEMI Attending Unavailable KIEPERT, YAJAIRA Primary Care Unavailable ZIEBER, DR YULIA Robins Consulting Unavailable JEREMIAH, NOEMI Consulting Unavailable REQUEST, NONE LISTED Admitting Unavaila ble REQUEST, NONE LISTED Attending Unavaila ble KIEPERT, YAJAIRA Primary Care Unavailable MISC, DR HUSSEIN Consulting Unavailable MISC, DR HUSSEIN Admitting Unavailable MISC, DR HUSSEIN Attending Unavailable GREWAL, DR VAUGHN Primary Care Unavailable MISC, DR HUSSEIN Consulting Unavailable Josep Perdomo Unavailable Conor, Dr. Carrasco Attending Unavaila ble Grewal, Dr. Oswaldo Collado Primary Care Unavailab le Traboulssi, Dr. Carrasco Referring Unavaila ble Grewal, Dr. Oswaldo Collado Primary Care Unavailab le Lashon Longoria Attending Unavailable MD PAZ JORDAN Admitting Unavailable Traboulssi, Dr. Carrasco Referring Unavaila ble SHERYL, EFFIE LUCERO Attending Unavailable Grewal, Dr. Oswaldo Collado Primary Care Unavailab le Grewal, Dr. Oswaldo Collado Primary Care Unavailab Abdiaziz Watson Attending Unavailable Trabouljacob, Dr. Carrasco Referring Unavaila ble Traboulssi, Dr. Carrasco Attending Unavaila ble Grewal, Dr. Oswaldo Collado Primary Care Unavailab le Traboulmayai, Dr. Carrasco Attending Unavaila ble Grewal, Dr. Oswaldo Collado Primary Care Unavailab le Traboulssi, Dr. Carrasco Referring Unavaila ble Josep Perdomo MD A Unavailable OSWALDO GREWAL Primary Care Unavailable SCOTCH, LUCAS Attending Unavailable GREWALOSWALDO Primary Care Unavailable SCOTCH, LUCAS Referring Unavailable GREWAL, OSWALDO YENY Primary Care Unavailable KOLCZUN, VIOLET C Attending Unavailable GREWAL, OSWALDO YENY Primary Care Unavailable KOLKENNYUN, VIOLET C Referring Unavailable GREWAL, OSWALDO YENY Primary Care Unavailable GREWAL, OSWALDO YENY Primary Care Unavailable SCOTCH, LUCAS Attending Unavailable SCOTCH, LUCAS Attending Unavailable GREWAL, OSWALDO YENY Primary Care Unavailable KOLCZUN, VIOLET C Attending Unavailable GREWAL, OSWALDO YENY Primary Care Unavailable SCOTCH, LUCAS Referring Unavailable GREWAL, OSWALDO YENY Primary Care Unavailable SCOTCH, LUCAS Attending Unavailable SCOTCH, LUCAS Referring Unavailable GREWAL, OSWALDO YENY Primary Care Unavailable SELF Referring Unavailable SCOTCH, LUCAS Attending Unavailable GREWAL, OSWALDO YENY Primary Care Unavailable Uri FLORES, Oswaldo Collado Primary Care Provider Oswaldo Grewal MD Primary Care Provider Oswaldo Grewal MD Primary Care Provider [phone] Shawn SIDING COREBOARD INSPECTOR, Guerline R Unavailable Ashley SIDING COREBOARD INSPECTOR, Noemi Unavailable Violet Combs Attending Unavailable Violet Combs C Admitting Unavailable GREWAL, OSWALDO A Primary Care Unavailable Esther Palomares MD Attending Provider Uri FLORES, Oswaldo Primary Care Provider WARSANTANA, NOEMI Attending Unavailable VALENTINA GREGG Attending Unavailable GREGGVALENTINA GUTIERREZ Attending Unavailable WARCHOL, NOEMI Attending Unavailable DOLBIN BREWER Attending Unavailable GUERLINE OBRIEN Attending Unavailable DOLBIN BREWER Attending Unavailable DOLCE, BIN Ferreira Attending Unavailable DOLCE, BIN Ferreira Attending Unavailable DOLCE, BIN Ferreira Attending Unavailable GREGGVALENTINA GUTIERREZ Attending Unavailable WARCHOL, NOEMI Attending Unavailable Oswaldo Grewal MD Primary Care Provider [phone] JOSEP PERDOMO Referring Unavailable GREWAL, OSWALDO YENY Primary Care Unavailable JOSEP PERDOMO Attending Unavailable JOSEP PERDOMO Referring Unavailable GREWAL, OSWALDO YENY Primary Care Unavailable Esther Palomares Attending Unavailable Grewal, Oswaldo Primary Care Unavailable Esther Palomares Admitting Unavailable Esther Palomares Attending Unavailable Grewal, Oswaldo Primary Care Unavailable Esther Palomares Admitting Unavailable Allergies Allergy Classification Reported Allergen(s) Allergy Type Date of Onset Reaction(s) Facility (20 sources) Latex; Translations: [LATEX] Drug Intolerance 3 Intolerance [facility] (12 sources) Penicillins; Translations: [PENICILLINS] Drug Allergy 3 Rash [facility] (20 sources) dorzolamide; Translations: [Trusopt] Drug Allergy [address] [facility] 250 DO Work Phone: (20 sources) dorzolamide / Timolol; Translations: [Cosopt] Drug Allergy [address] [facility] 250 DO Work Phone: (20 sources) Levalbuterol; Translations: [levalbuterol] Drug Allergy [address] [facility] 250 DO Work Phone: (18 sources) Penicillins; Translations: [Penicillins] Allergy to drug (finding) Unknown [facility] 250 DO Work Phone: (20 sources) Timolol; Translations: [timolol] Drug Allergy 4 Unknown [facility] 250 DO Work Phone: (17 sources) Brimonidine Tartrate POWD; Translations: [Brimonidine Tartrate POWD] Allergy to drug (finding) [facility] 250 DO Work Phone: (7 sources) Penicillin G Drug Allergy 5 [facility] (13 sources) Elastic Propensity to adverse reactions 2 [facility] Comment on above: [place] (1 source) brimonidine Drug Allergy Unknown [facility] (1 source) dorzolamide Drug Allergy Unknown [facility] (1 source) dorzolamide / Timolol Drug Allergy Unknown [facility] (20 sources) Penicillins Drug Allergy 3 Rash, Unknown [facility] (3 sources) Adhesive Tape Allergy to substance (finding) [facility] 250 DO Work Phone: (1 source) Penicillins Drug allergy (disorder) 5 [facility] Repository (6 sources) brimonidine; Translations: [BRIMONIDINE] Drug Allergy 4 Unknown [facility] Work Phone: (20 sources) brimonidine Drug Allergy 4 Unknown [facility] (20 sources) Latex Propensity to adverse reactions 3 [facility] (20 sources) Penicillins Drug Allergy 3 Rash [facility] (20 sources) Other Allergy to substance 1 [facility] (1 source) quynh bandage; Translations: [Unknown] Propensity to adverse reactions to drug (disorder) [facility] Repository (2 sources) Penicillins Drug Allergy 4 Unknown [facility] Work Phone: (2 sources) dorzolamide; Translations: [DORZOLAMIDE] Drug Allergy 4 [facility] Repository (2 sources) dorzolamide / Timolol; Translations: [DORZOLAMIDE-TI MOLOL] Drug Allergy 4 [facility] Medications Current Medications Medication Drug Class(es) Dates Sig (Normalized) Sig (Original) acetaminophen 500 mg oral tablet (20 sources) Start: 02-02-2022 take 1 tablet by mouth every four to six hours as needed for pain Acetaminophen 500 mg Tablet Active 500 MG PO EVERY 4-6 HOURS as needed for Pain February 02, 2022 12:00am Complies with drug therapy Start: 02-05-2020 End: 07-29-2023 take 2 tablets by mouth every eight hours acetaminophen (TYLENOL) 500 mg tablet Take 2 tablets by mouth every 8 hours. 02/05/2020 07/29/2023 Discontinued (Course of therapy completed) Comment on above: Take 2 tablets by mo [facility] every 8 hours. acetaminophen 325 mg / HYDROcodone bitartrate 5 mg oral tablet (2 sources) Opioid Agonist Start: 05-22-20 End: 05-27-20 take 1 tablet by mouth every six hours as needed for pain HYDROcodone-acetamin ophen (Weinert) 5-325 MG tablet Indications: Pain Take 1 tablet by mouth every 6 (six) hours if needed for moderate pain (PRN pain) for up to 5 days 10 tablet 05/22/2024 05/27/2024 Active 12 hr acetaZOLAMIDE 500 mg extended release oral capsule (20 sources) Carbonic Anhydrase Inhibitor Start: 02-24-20 End: 08-03-19 25 Acetazolamide 500 mg capsule, extended release Active MG PO February 23, 2024 12:00am Complies with drug therapy Comment on above: Take 500 mg by mouth two times a day. amLODIPine 10 mg oral tablet (20 sources) Dihydropyridine Calcium Channel Radha Start: 09-23-19 End: 07-30-19 26 take 1 tablet by mouth once daily amLODIPine (Norvasc) 10 MG tablet Indications: Primary hypertension Take 1 tablet (10 mg) by mouth Daily 90 tablet 1 01/31/2025 07/30/2025 Active Start: 10-06-2022 take 1 tablet by pernell th once daily amLODIPine Besylate 10 MG Oral Tablet TAKE 1 TABLET DAILY. Quantity: 90 Refills: 3 Ordered: 06-Oct-2022 Josep Perdomo MD Start : 06-Oct-2022 Active dose change Start: 06-20-2018 take 1 tablet by pernell th once daily at lunch Amlodipine 5 mg tablet Active 5 MG PO Daily with lunch January 29, 2022 12:00am Complies with drug therapy Start: 06-25-2013 End: 08-05-2022 take 1 tablet [...] Start: 03-20-2022 take 1 tablet by pernell twice daily Aspirin Low Dose 81 MG [...] on above: Take 1 tablet by pernell twice daily for 4 weeks atorvastatin 10 mg oral tablet (20 sources) HMG-CoA Reductase Inhibitor Start: 03-22-20 End: 07-30-19 26 take 1 tablet by mouth at bedtime Atorvastatin 10 mg tablet Active 10 MG PO Bedtime January 29, 2022 12:00am Complies with drug therapy Comment on above: TK 1 T PO QD chlorthalidone 25 mg oral tablet (20 sources) Thiazide-like Diuretic Start: 03-15-20 take 1 tablet by mouth once daily chlorthalidone (Hygroton) 25 mg tablet Indications: Essential hypertension, benign Take 1 tablet (25 mg) by mouth once daily. 90 tablet 3 03/15/2025 Active Start: 11-30-2022 End: 03-15-2025 Chlorthalidone 25 mg tablet Active MG PO February 23, 2024 12:00am Complies with drug therapy Comment on above: Take 1 tablet by eprnell every afternoon. dexamethasone 0.001 mg/mg / neomycin 0.0035 mg/mg / polymyxin b 10 unt/mg ophthalmic ointment (20 sources) Aminoglycoside Antibacterial, Polymyxin-class Antibacterial, Corticosteroid Start: 024 End: 025 neomycin-polymyxin -dexAMETHasone (Polydex) 3.5-05494-9.1 ointment ophthalmic ointment APPLY 1/2 INCH INTO BOTH EYES TWICE A DAY 11/14/2023 09/17/2024 Discontinued (Patient refused) dextromethorphan hydrobromide 30 mg / pyrilamine maleate 30 mg oral tablet (2 sources) Uncompetitive Y-bntbko-Q-aspartate Receptor Antagonist, Sigma-1 Agonist Start: Wyckoff DMT 30-30 MG as directed Orally every 6 hours as needed for cough for 5 days Jul, Active diclofenac sodium 50 mg delayed release oral tablet (20 sources) Nonsteroidal Anti-inflammatory Drug Start: End: diclofenac (Voltaren) 50 MG EC tablet 08/28/2023 09/17/2024 Discontinued (Patient refused) Comment on above: Take 1 tablet by pernell th two times a day with meals. dicyclomine hydrochloride 20 mg oral tablet (20 sources) Anticholinergic Start: End: take 1 tablet by mouth twice daily Dicyclomine 20 mg tablet Active 20 MG PO Twice daily January 29, 2022 12:00am Complies with drug therapy Comment on above: Take 20 mg by mouth twice daily. ferrous sulfate 325 mg delayed release oral tablet (4 sources) End: take 1 tablet by mouth three times daily at mealtime ferrous sulfate 325 (65 Fe) MG EC tablet Take 65 mg by mouth 3 times a day with meals. Do not crush, chew, or split. 0 09/09/2023 Discontinued (Therapy completed) take 1 tablet by mouth once ilsa y FeroSul 325 (65 Fe) MG Oral Tablet TAKE 1 TABLET DAILY DIRECTED. Quantity: 0 Refills: 0 Ordered: 06-Oct-2022 DO Active fluorouracil 50 mg/ml topical cream (11 sources) Nucleoside Metabolic Inhibitor Start: 05-15-2024 End: 06-14-2024 gabapentin 300 mg oral capsule (20 sources) Anti-epileptic Agent Start: 01-14-2025 End: 07-13-2025 take 1 capsule by mouth in the morning, then take 1 capsule by mouth in the evening, then take 1 capsule by mouth at bedtime gabapentin (Neurontin) 300 MG capsule Indications: RLS (restless legs syndrome) Take 1 capsule (300 mg) by mouth in the morning and 1 capsule (300 mg) in the evening and 1 capsule (300 mg) before bedtime. 270 capsule 1 01/14/2025 07/13/2025 Active Start: 06-25-2025 Gabapentin 600 mg tablet Active MG PO January 09, 2025 12:00am Complies with drug therapy Start: 10-15-2024 End: 01-14-2025 take 0.5 tablet by mouth in the [...] mg) before bedtime. 45 tablet 2 10/15/2024 01/14/2025 Discontinued (Therapy completed) Start: 09-17-2024 End: 10-17-2024 take 1 tablet [...] 90 tablet 09/17/2024 10/15/2024 Discontinued (Reorder) Start: 02-22-2024 End: 01-09-2025 Gabapentin 300 mg capsule Discontinued MG PO February 23, 2024 12:00am January 09, 2025 2:22pm Start: 01-29-2022 End: 03-15-2025 take 2 capsules by mouth twice daily Gabapentin 100 mg capsule Discontinued 200 MG PO Twice daily January 29, 2022 12:00am February 23, 2024 10:23am Start: 01-29-2022 take 200 mg by mouth twice risa ly Gabapentin Active 200 MG PO Twice daily January 28, 2022 11:00pm Start: 01-29-2022 take 100 mg by mouth four times daily Gabapentin Active 100 MG PO Four times daily January 29, 2022 12:00am Start: 10-17-2019 take 1 capsule by mo [facility] twice daily gabapentin (NEURONTIN) 100 mg capsule Take 1 capsule by mouth twice daily for 30 days. 60 capsule 10/17/2019 Active Gabapentin Activ e Comment on above: Take 1 capsule by mo [facility] twice daily for 30 days. gatifloxacin 5 mg/ml ophthalmic solution (5 sources) Quinolone Antimicrobial Start: 5 Gatifloxacin 0.5 % drops Active DROPS OPHTHALMIC January 09, 2025 12:00am Complies with drug therapy latanoprost 0.05 mg/ml ophthalmic solution (20 sources) Prostaglandin Analog Start: 3 take 1 drop(s) into the eye(s) once daily latanoprost (XALATAN) 0.005 % ophthalmic solution Use 1 Drop in both eyes once daily. 07/17/2023 Active Start: 02-15-2023 Latanoprost 0. 005 % drops Active DROPS OPHTHALMIC January 09, 2025 12:00am Complies with drug therapy End: 08-05-2022 take 1 drop(s) into the eye(s) once daily at bedtime latanoprost (XALATAN) 0.005 % ophthalmic solution 1 Drop daily at bedtime. 08/05/2022 Discontinued Comment on above: 1 Drop daily at bedt ld. Use 1 Drop in both e yes once daily. levothyroxine sodium 0.1 mg oral tablet (20 sources) l-Thyroxine Start: 07-09-20 End: 01-31-20 Levothyroxine 100 mcg tablet Active MCG PO February 23, 2024 12:00am Complies with drug therapy Comment on above: TAKE 1 TABLET BY PERNELL TH EVERY DAY IN THE MORNING ON AN EMPTY STOMACH losartan potassium 100 mg oral tablet (1 source) Angiotensin 2 Receptor Radha Start: 03-20-20 take 1 tablet by mouth once daily losartan 100 mg oral tablet ; 1 tab(s) orally once a day Quantity: 0 Refills: 0 Ordered: 20-Mar-2022 Sachin Brannon Start: 20-Mar-2022 Status: Discontinued Generic Substitution Allowed loteprednol etabonate 5 mg/ml ophthalmic suspension (10 sources) Start: 01-10-20 Loteprednol Etabonate 0.5 % drops,suspension Active DROPS OPHTHALMIC January 09, 2025 12:00am Complies with drug therapy Start: 12-12-2024 take 1 drop(s) into the eye(s) twice daily loteprednol (Lotemax) 0.5 % ophthalmic suspension INSTILL 1 DROP INTO LEFT EYE TWICE A DAY DIRECTED 12/12/2024 Active magnesium oxide 400 mg oral tablet (20 sources) Start: 01-09-2025 Magnesium Oxid e 400 mg (241.3 mg magnesium) tablet Active MG PO January 09, 2025 12:00am Complies with drug therapy Start: 12-11-2024 End: 12-06-2025 take 1 tablet by mouth in the morning magnesium oxide (Mag-Ox) 400 mg tablet Indications: RLS (restless legs syndrome) Take 1 tablet (400 mg) by mouth in the morning and 1 tablet (400 mg) before bedtime. 180 tablet 3 12/11/2024 12/06/2025 Active Start: 06-05-2024 End: 09-17-2024 take 1 tablet by mouth in the [...] Nonsteroidal Anti-inflammatory Drug Start: 03-24-2024 End: 08-03-2025 Meloxicam 7.5 mg tablet Active MG PO January 09, 2025 12:00am Complies with drug therapy Start: 04-18-2018 End: 03-15-2025 take 1 tablet by mouth once daily at lunch Meloxicam 15 mg tablet Discontinued 15 MG PO Daily with lunch January 29, 2022 12:00am January 09, 2025 2:21pm Start: 10-20-2013 take 1 tablet by pernell every twenty-four hours Meloxicam 7.5 MG 1 tablet Orally Once a day for 15 day(s) Oct, Active Comment on above: Take 1 tablet by pernell th once daily. with food TAKE 1 TABLET BY PERNELL TH EVERY DAY WITH FOOD metFORMIN (1 source) Biguanide Metformin Active methylPREDNISolone 4 mg oral tablet (1 source) Corticosteroid Start : 02-22 methylPREDNISolone 4 MG as directed Orally Once a day for 6 days Feb, Active nitrofurantoin, macrocrystals 25 mg / nitrofurantoin, monohydrate 75 mg oral capsule (1 source) Nitrofuran Antibacterial Start : 12-11 End: 12-18 take 1 capsule by mouth twice daily nitrofurantoin monohydrate and macrocrystal (MACROBID) 100 mg capsule Take 1 capsule by mouth twice daily for 7 days. 14 capsule 0 12/11/2021 12/18/2021 Active Comment on above: Take 1 capsule by mo [facility] twice daily for 7 days. omeprazole 40 mg delayed release oral capsule (4 sources) Proton Pump Inhibitor Start : 01-31 End: 01-31 take 1 capsule by mouth before mealtime omeprazole (PriLOSEC) [address] capsule Indications: Gastroesophageal reflux disease without esophagitis Take 1 capsule (40 mg) by mouth in the morning. Take before meals. Do not crush or chew. 90 capsule 3 01/31/2025 01/31/2026 Active oxyCODONE hydrochloride 5 mg oral tablet (20 sources) Opioid Agonist Start : 08-20 oxyCODONE (Roxicodone) 5 MG immediate release tablet [...] every 4-6 hours as needed for pain. polyvinyl alcohol 0.014 ml/ml / povidone 6 mg/ml ophthalmic solution (1 source) take 1 drop(s) into the eye(s) three to four times daily lubricating eye drops ophthalmic solution 1 drop. 3-4 times daily Active prednisoLONE acetate 10 mg/ml ophthalmic suspension (20 sources) Corticosteroid Start: 01-10-20 Prednisolone Acetate 1 % drops,suspension Active DROPS OPHTHALMIC January 09, 2025 12:00am Complies with drug therapy Start: 06-16-2023 prednisoLONE a cetate (PRED FORTE) 1 % ophthalmic suspension Use 1 Drop in both eyes every Tuesday, Tuesday, and Tuesday. 06/16/2023 Active Start: 03-23-2023 prednisoLONE a cetate (Pred-Forte) 1 % ophthalmic suspension 03/23/2023 Active End: 03-15-2025 take 1 drop(s) into the eye(s) four times daily prednisoLONE acetate (Pred-Forte) 1 % ophthalmic suspension Administer 1 drop into both eyes 4 times a day. 03/15/2025 Discontinued (Therapy completed) Comment on above: Use 1 Drop in both e yes every Tuesday, Tuesday, and Tuesday. predniSONE 20 mg oral tablet (14 sources) Start: 09-17-2024 predniSONE (Deltasone) 20 MG tablet Indications: Acute left-sided low back pain with left-sided sciatica Take two tablets (40 mg) daily for five days, then take one tablet (20 mg) daily for five days. Take with food. 15 tablet 09/17/2024 Active rOPINIRole 0.25 mg oral tablet (20 sources) Nonergot Dopamine Agonist Start: 01-09-2025 Ropinirole 0.25 mg tablet Active MG PO January 09, 2025 12:00am Complies with drug therapy Start: 02-13-2024 End: 08-03-2025 Ropinirole 1 mg tablet Disco ntinued MG PO February 23, 2024 12:00am January 09, 2025 2:22pm Start: 01-29-2022 End: 11-09-2024 Ropinirole 0.25 mg tablet Discontinued 0.25 MG PO As Directed January 29, 2022 12:00am February 23, 2024 10:24am 1 in AM, 1 at lunch, and 2 before bed Start: 07-31-2018 take 1 tablet by pernell [...] on above: Take 1 tablet by pernell three times daily. SITagliptin 25 mg oral [...] mouth at bedtime 30 tablet 3 11/16/2024 Active Start: 08-06-2021 End: 01-09-2025 take 2-4 mg by mouth once daily at bedtime Tizanidine 4 mg tablet Discontinued 2 - 4 MG PO Daily at bedtime January 29, 2022 12:00am January 09, 2025 2:23pm End: 09-09-2023 tiZANidine (Zanaflex) 4 mg c apsule Take 1 capsule (4 mg) by mouth once daily at bedtime. /2-1 tablet 0 09/09/2023 Discontinued (Therapy completed) Comment on above: Take 2-4 mg by mouth daily at bedtime. trifluridine 10 mg/ml ophthalmic solution (5 sources) Nucleoside Analog Antiviral, Nucleoside Metabolic Inhibitor Start: 01-09-2025 Trifluridine 1 % drops Active DROPS OPHTHALMIC January 09, 2025 12:00am Complies with drug therapy valACYclovir 500 mg oral tablet (20 sources) Herpesvirus Nucleoside Analog DNA Polymerase Inhibitor, Herpes Simplex Virus Nucleoside Analog DNA Polymerase Inhibitor, Herpes Zoster Virus Nucleoside Analog DNA Polymerase Inhibitor Start: 01-09-2025 Valacyclovir 500 mg tablet Active MG PO January 09, 2025 12:00am Complies with drug therapy Start: 04-04-2023 valACYclovir ( Valtrex) 1 g tablet Take 1,000 mg by mouth Daily as directed 04/04/2023 Active valsartan 320 mg oral tablet (20 sources) Angiotensin 2 Receptor Radha Start: 07-29-2022 End: 01-25-2026 Valsartan 320 mg tablet Active MG PO February 23, 2024 12:00am Complies with drug therapy Start: 04-01-2022 End: 02-23-2024 take 1 tablet by mouth once daily at bedtime Valsartan 160 mg tablet Discontinued 160 MG PO Daily at bedtime May 19, 2022 12:00am February 23, 2024 10:23am Comment on above: Take 320 mg by mouth once daily. Completed/Discontinued Medications Medication Drug Class(es) Dates Sig (Normalized) Sig (Original) azithromycin 500 mg oral tablet (6 sources) Macrolide Antimicrobial Start: 05-13-2022 Azithromycin 500 MG Oral Tablet TAKE 1 TABLET 30-60 mins before your dental procedure Quantity: 1 Refills: 6 Ordered: 13-May-2022 Abdiaziz Momin Start : 13-May-2022 Active brimonidine tartrate 2 mg/ml ophthalmic solution (20 sources) alpha-Adrenergic Agonist Start: 06-16-2023 take 1 drop(s) into the eye(s) twice daily brimonidine (ALPHAGAN) 0.2 % ophthalmic solution Use 1 Drop in both eyes two times a day. 06/16/2023 Active Start: 02-15-2023 End: 06-25-2025 Brimonidine 0.2 % drops Disc ontinued DROPS OPHTHALMIC February 23, 2024 12:00am January 09, 2025 2:25pm Comment on above: Use 1 Drop in both e yes two times a day. clindamycin 300 mg oral capsule (17 sources) Lincosamide Antibacterial Start: 2021 End: 2022 clindamycin (CLEOCIN HCL) 300 mg capsule Indications: S/P right unicompartmental knee replacement , Status post left knee replacement TWO TABS ONE HOUR PRIOR TO DENTAL PROCEDURE AND TWO TABS SIX HOURS AFTER THE DENTAL PROCEDURE 4 capsule 1 11/12/2021 03/02/2023 Discontinued Comment on above: TWO TABS ONE HOUR AK IOR TO DENTAL PROCEDURE AND TWO TABS SIX HOURS AFTER THE DENTAL PROCEDURE docusate sodium 100 mg oral capsule (16 sources) Start: 2019 End: 2023 take 1 capsule by mouth every twelve hours as needed docusate sodium (COLACE) 100 mg capsule Take 1 capsule by mouth twice daily as needed for Constipation. 60 capsule 02/05/2020 07/29/2023 Discontinued (Course of therapy completed) Comment on above: Take 1 capsule by [facility] twice daily as needed for Constipation. doxycycline monohydrate 100 mg oral capsule (8 sources) Tetracycline-class Drug Start: 2023 End: 2023 doxycycline (Monodox) 100 MG capsule Indications: Abscess [...] oral tablet (3 sources) Loop Diuretic Start: 2021 Furosemide 20 MG Oral Tablet TAKE 1 TABLET DAILY NEEDED for increased shortness, increased leg swelling, and / or weight gain (3lbs in 24hrs or 5lbs in 48hrs) Quantity: 30 Refills: 1 Ordered: 26-Jul-2022 Abdiaziz Momin Start : 13-May-2022 Active hydroCHLOROthiazide 25 mg / lisinopril 20 mg oral tablet (9 sources) Thiazide Diuretic, Angiotensin Converting Enzyme Inhibitor End: 2022 take 1 tablet by mouth once daily lisinopril-hydrochloro thiazide 20-25 mg per tablet Take 1 tablet by mouth once daily. 08/05/2022 Discontinued Comment on above: Take 1 tablet by pernell th once daily. hydroCHLOROthiazide 25 mg / losartan potassium 100 mg oral tablet (20 sources) Thiazide Diuretic, Angiotensin 2 Receptor Radha Start: 2017 End: 2022 take 1 tablet by mouth once daily at lunch Losartan-Hydrochloroth iazide 100-25 mg tablet Discontinued 1 TAB PO Daily with lunch January 29, 2022 12:00am May 19, 2022 4:53pm Comment on above: TK 1 T PO QD ibuprofen 200 mg oral tablet (20 sources) Nonsteroidal Anti-inflammatory Drug Start: 2021 End: 2024 take 1 tablet by mouth every six hours as needed for pain Ibuprofen 200 mg Tablet Discontinued 200 MG PO Q6H as needed for Pain May 19, 2022 12:00am January 09, 2025 2:23pm On Hold: Restart on Tuesday Ibuprofen 200 MG Oral Tablet TAKE TABLET PRN Quantity: 0 Refills: 0 Ordered: 23-Dec-2021 DO Active Ibuprofen Active mupirocin 0.02 mg/mg topical ointment (2 sources) RNA Synthetase Inhibitor Antibacterial Start: 08-05-2022 mupirocin (BACTR OBAN) 2 % ointment Indications: Preop examination Apply [...] cataract; Translations: [Senile nuclear sclerosis] Onset: 08-04-2023 4 Chronic Chronic kidney disease (2 sources) Chronic kidney disease stage 3A ; Translations: [Chronic kidney disease, stage 3a (HCC) ([facility]/HCC)] 08-03-2024 Chronic Chronic ulcer of skin (6 [...] 05-12-2015 Resolved: 02-25-2023 02-04-2020 Chronic Esophageal disorders (3 sources) Gastro-esophageal reflux disease without esophagitis; Translations: [Gastroesophageal reflux disease without esophagitis] Onset: 03-20-2022 01-31-2025 Chronic Essential hypertension (20 sources) Hypertensive disorder; Translations: [Essential (primary) hypertension] Onset: 05-12-2015 Resolved: 02-25-2023 02-04-2020 Chronic Fracture of upper limb (20 sources) Closed fracture of base of left fifth metacarpal; Translations: [Nondisplaced fracture of base of fifth metacarpal bone, left hand, initial encounter for closed fracture] Onset: 03-19-2025 01-09-2025 Episodic Glaucoma (20 sources) Primary open angle glaucoma; Translations: [Primary open angle glaucoma] Onset: 03-20-2022 08-04-2023 Chronic Heart valve disorders (20 sources) Aortic stenosis, non-rheumatic ; Translations: [Aortic valve disorders] Onset: 03-12-2022 Resolved: 02-07-2023 03-18-2022 Chronic Immunizations and screening for infectious disease [...] Cough; Translations: [Cough, unspecified type] Episodic Other nervous system disorders (20 sources) [...] [Body mass index (BMI) 35.0-35.9, adult] Onset: 12-19-2022 Resolved: 02-07-2023 09-09-2023 Chronic Other nutritional; endocrine; and metabolic disorders (20 sources) Morbid obesity; Translations: [Morbid (severe) obesity due to excess calories] Onset: 12-19-2022 12-19-2022 Chronic Other nutritional; endocrine; and metabolic disorders (2 sources) Hypomagnesemia; Translations: [Hypomagnesemia] 03-30-2024 Chronic Other nutritional; endocrine; and metabolic disorders (2 sources) Body mass index (BMI) 34.0-34.9, adult; Translations: [Body mass index (BMI) 34.0-34.9, adult] Onset: 03-15-2025 Chronic Other screening for suspected conditions (not mental disorders or infectious disease) (2 sources) Patient encounter status; Translations: [Encounter for screening mammogram for malignant neoplasm of breast] 01-31-2025 Episodic Peripheral and visceral atherosclerosis (2 sources) Atherosclerosis of aorta; Translations: [Atherosclerosis of aorta] 03-30-2024 Chronic Residual codes; unclassified (1 source) Pain; Translations: [Pain, unspecified] 02-02-2021 Episodic Residual codes; unclassified (20 sources) Never smoked tobacco; Translations: [Other specified health status] Onset: 03-16-2024 03-24-2024 Episodic Residual codes; unclassified (2 sources) Other specified health status; Translations: [Other specified health status] Onset: 03-16-2024 Episodic Skin and subcutaneous tissue infections (8 sources) Abscess of right foot; Translations: [Cutaneous abscess of right foot] 05-22-2024 Episodic Thyroid disorders (20 sources) Hypothyroidism; Translations: [Hypothyroidism, unspecified] Onset: 03-18-2022 Resolved: 02-07-2023 08-05-2022 Chronic Unclassified (2 sources) AORTIC STENOSIS/ CPT- 90811 03-11-2022 Comment on above: AORTIC STENOSIS/ CPT - 48211 Unclassified (2 sources) Primary hypertension 03-19-2022 Unclassified (1 source) 1 MONTH F/U POST TAVR 03-10-2022 Comment on above: 1 MONTH F/U POST TAV R Unclassified (1 source) [facility] OP CATH AORTIC STENOSIS MT 12-23-2021 Comment on above: [facility] OP CATH AORTIC STENOSIS MT Unclassified (1 source) Severe calcific aortic valve stenosis 03-18-2022 Unclassified (1 source) S/P TAVR (transcatheter aortic valve replacement) 03-18-2022 Viral infection (7 sources) Verruca plantaris; Translations: [Plantar wart] 05-15-2024 Episodic Comment on above: x 2 (2019 & 2021) Past or Other Problems Problem Classification Problem Date Documented Da te Episodic/Chronic Complication of device; implant or graft (20 sources) Prosthetic joint mechanical failure; Translations: [Broken internal joint prosthesis, other site, sequela] Onset: 3 Resolved: Episodic Complications of surgical procedures or medical care (20 sources) History of subtotal thyroidectomy; Translations: [Postprocedural hypothyroidism] Onset: 3 Resolved: 3 02-07-2023 Chronic Deficiency and other anemia (20 sources) Anemia; Translations: [Anemia, unspecified] Onset: 3 Resolved: 3 08-20-2022 Episodic Diabetes mellitus without complication (20 sources) Impaired fasting glycemia; Translations: [Impaired fasting glucose] Onset: 5 Resolved: 3 02-07-2023 Episodic Malaise and fatigue (20 sources) Asthenia; Translations: [...] 3 11-29-2022 Chronic Other aftercare (1 source) 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); Translations: [FDC (current) use of non-steroidal non-inflam (NSAID)] Onset: [...] obesity] Onset: 9 Resolved: 3 02-07-2023 Chronic Spondylosis; intervertebral disc disorders; other back problems (20 sources) Disorder of right sciatic nerve; Translations: [Sciatica, right side] Onset: 9 Resolved: 3 02-07-2023 Episodic Unclassified (17 sources) Never smoked tobacco; Translations: [Never a smoker] Unclassified (1 source) Cough, unspecified type R05.9 Onset: 2 Resolved: 2 Urinary tract infections (4 sources) Acute cystitis; Translations: [Acute cystitis without hematuria] Onset: 3 Resolved: 3 08-19-2022 Episodic Viral infection (1 source) COVID-19 Onset: 2 Resolved: 2 Results Test Name Value Interpretation Reference Range Facility X-ray reportOrdered By: Wu Peralta on 03-19-2025 Study report [facility] [address] [place] [address] XRay Report Signed Patient: Virgilio Johnson MR#: [id number] : 1960 Acct:[id number] Age/Sex: 65 / F ADM Date: 5 [place] [facility] [place]: Type: [facility] Attending Dr: Esther Palomares MD Copies to: Esther Palomares MD~ Ordering Provider: Esther Palomares MD Date of Service: 03/19/25 XR/XR hand LT min 3V*: S62.347A - Nondisplaced fracture of base of fifth metacar... 4 views left hand plain film COMPARISON: 02/13/2025 HISTORY: Status post left fifth metacarpal fracture ACUTE FINDINGS: Continued healing with stable alignment DEGENERATIVE CHANGE: Unremarkable SOFT TISSUE FINDINGS: Unremarkable JOINT EFFUSION: None POSTOP CHANGES: None BONY MINERALIZATION: Adequate XR/XR hand LT min 3V* IMPRESSION: Healing fracture with stable alignment Impression dictated by: Masood Peralta M.D. 03/19/2025 10:38 PM Dictation Location: [place] [address] Transcribed By: [facility] 03/19/252237 Dictated By: Masood Peralta DO 03/19/252236 Signed By: 03/19/252237 [facility] XR hand LT min 3V*on 025 XR hand LT min 3V* [facility] [place] [address] XRay Report Signed Patient: Virgilio Johnson MR#: [id number] : 1960 Acct:[id number] Age/Sex: 65 / F ADM Date: 03/19/25 [place] [facility] [place]: Type: [facility] Attending Dr: Esther Palomares MD Copies to: Esther Palomares MD Ordering Provider: Esther Palomares MD Date of Service: 03/19/25 XR/XR hand LT min 3V*: S62.347A - Nondisplaced fracture of base of fifth metacar... 4 views left hand plain film COMPARISON: 02/13/2025 HISTORY: Status post left fifth metacarpal fracture ACUTE FINDINGS: Continued healing with stable alignment DEGENERATIVE CHANGE: Unremarkable SOFT TISSUE FINDINGS: Unremarkable JOINT EFFUSION: None POSTOP CHANGES: None BONY MINERALIZATION: Adequate XR/XR hand LT min 3V* IMPRESSION: Healing fracture with stable alignment Impression dictated by: Masood Peralta M.D. 03/19/2025 10:38 PM Dictation Location: [place] [address] Transcribed By: [facility] 03/19/252237 Dictated By: Masood Peralta DO 03/19/252236 Signed By: 03/19/252237 Normal [facility] X-ray reportOrdered By: Koko Monge on 02-13-2025 Study report [facility] [address] [place] [address] XRay Report Signed Patient: Virgilio Johnson MR#: [id number] : 1960 Acct:[id number] Age/Sex: 64 / F ADM Date: 5 [place] [facility] [place]: [facility] Attending Dr: Esther Palomares MD Copies to: Esther Palomares MD~ Ordering Provider: Esther Palomares MD Date of Service: 02/13/25 XR/XR hand LT min 3V*: *out of cast* XR hand LT min 3V* 02/13/2025 12:04 PM SIGNS AND SYMPTOMS: Status post left fifth metacarpal fracture, follow-up PROTOCOL: Frontal, lateral, and oblique radiographs of the left hand COMPARISON: 620 10/25/2024 FINDINGS: There is a transverse aortic fracture at the base of the fifth metacarpal without change in alignment. There is increasing periosteal new bone formation consistent with healing. No additional fractures. There is narrowing of the interphalangeal joints. XR/XR hand LT min 3V* IMPRESSION: There is a transverse aortic fracture at the base of the fifth metacarpal without change in alignment. There is increasing periosteal new bone formation consistent with healing. Impression dictated by: Koko Monge M.D. 02/13/2025 5:00 PM Dictation Location: [place] [address] Transcribed By: [facility] 02/13/25 170 Dictated By: Koko Monge II, MD 02/13/25 165 Signed By: 02/13/25 170 [facility] Work Phone: XR hand LT min 3V*on 025 XR hand LT min 3V* [facility] [address] [place] [address] XRay Report Signed Patient: Virgilio Johnson MR#: [id number] : 1960 Acct:[id number] Age/Sex: 64 / F ADM Date: 02/13/25 [place] [facility] [place]: Type: [facility] Attending Dr: Esther Palomares MD Copies to: Esther Palomares MD Ordering Provider: Esther Palomares MD Date of Service: 02/13/25 XR/XR hand LT min 3V*: *out of cast* XR hand LT min 3V* 02/13/2025 12:04 PM SIGNS AND SYMPTOMS: Status post left fifth metacarpal fracture, follow-up PROTOCOL: Frontal, lateral, and oblique radiographs of the left hand COMPARISON: 620 10/25/2024 FINDINGS: There is a transverse aortic fracture at the base of the fifth metacarpal without change in alignment. There is increasing periosteal new bone formation consistent with healing. No additional fractures. There is narrowing of the interphalangeal joints. XR/XR hand LT min 3V* IMPRESSION: There is a transverse aortic fracture at the base of the fifth metacarpal without change in alignment. There is increasing periosteal new bone formation consistent with healing. Impression dictated by: Koko Monge M.D. 02/13/2025 5:00 PM Dictation Location: [facility]- Transcribed By: [facility] 02/13/25 1700 Dictated By: Koko Monge II, MD 02/13/25 621 Signed By: 02/13/25 1700 Normal [facility] TRANSTHORACIC ECHO (TTE) COM PLETEon 02-04-2025 TRANSTHORACIC ECHO (TTE) COMPLETE [facility] [address] [place] [address], [address], [place] [address] TRANSTHORACIC ECHOCARDIOGRAM REPORT Patient Name: VIRGILIO JOHNSON Reading Physician: [id number] Perdomo MD Study Date: 02/04/2025 Ordering Provider: Ceasar PERDOMO MRN/PID: [id number] Fellow: Nurse: Date of /Age: 8 1960 [employer] Supervisor: Heide srivastava RDCS, RVT Gender Assigned at Additional Staff: : Height: 175.26 cm Admit Date: Weight: 102.97 kg Admission Status: Outpatient BSA / BMI: 2.18 m2 / 33.52 Department Location: [facility] Heart kg/m2 [place] Blood Pressure: 142 /68 mmHg Study Type: TRANSTHORACIC ECHO (TTE) COMPLETE Diagnosis/ICD: Essential (primary) hypertension-I10; Presence of prosthetic heart valve-Z95.2 Indication: #29 Evolut FX TAVR-03/19/2022, Hyperlipidemia, 2/6 Sytolic Murmur, Obesity CPT Codes: Echo Complete w Full Doppler-00982 Study Detail: The following Echo studies were [...] AoV Mean P.8 mmHg (1.7-11.5mmHg) LVOT Max Gianfranco: 1.07 m/s (<=1.1m/s) AoV VTI: 66.71 cm (18-25cm) LVOT VTI: 29.06 cm LVOT Diameter: 2.09 cm (1.8-2.4cm) AoV Area, VTI: 1.49 cm2 (2.5-5.5cm2) AoV Area,Vmax: 1.37 cm2 (2.5-4.5cm2) AoV Dimensionless I (more content not included)... [facility] Transthoracic echo (TTE) com pleteon 02-04-2025 [facility] [place] [address] [facility], [address], [place] [address] TRANSTHORACIC ECHOCARDIOGRAM REPORT Patient Name: VIRGILIO JOHNSON Reading Physician: [id number] Josep Perdomo MD Study Date: 02/04/2025 Ordering Provider: [id number] JOSEP PERDOMO MRN/PID: [id number] Fellow: Nurse: Date of /Age: 8 1960 [employer] Supervisor: Heide srivastava RDCS, RVT Gender Assigned at F Additional Staff: : Height: 175.26 cm Admit Date: Weight: 102.97 kg Admission Status: Outpatient BSA / BMI: 2.18 m2 / 33.52 Department Location: [facility] Heart kg/m2 [place] Blood Pressure: 142 /68 mmHg Study Type: TRANSTHORACIC ECHO (TTE) COMPLETE Diagnosis/ICD: Essential (primary) hypertension-I10; Presence of prosthetic heart valve-Z95.2 Indication: #29 Evolut FX TAVR-03/19/2022, Hyperlipidemia, 2/6 Sytolic Murmur, Obesity CPT Codes: Echo Complete w Full Doppler-44015 Study Detail: The following Echo studies were [...] Reported: 63 % LV DIASTOLIC FUNCTION: Normal Ra (more content not included)... Radiology, Radiologi MD mike - 02/04/[address], [address], [place] [address] TRANSTHORACIC ECHOCARDIOGRAM REPORT Patient Name: VIRGILIO JOHNSON Reading Physician: Ceasar Perdomo MD Study Date: 02/04/2025 Ordering Provider: Ceasar PERDOMO MRN/PID: [id number] Fellow: Nurse: Date of /Age: 8 1960 [employer] Supervisor: Heide srivastava RDCS, RVT Gender Assigned at F Additional Staff: : Height: 175.26 cm Admit Date: Weight: 102.97 kg Admission Status: Outpatient BSA / BMI: 2.18 m2 / 33.52 Department Location: [facility] kg/m2 [place] Blood Pressure: 142 /68 mmHg Study Type: TRANSTHORACIC ECHO (TTE) COMPLETE Diagnosis/ICD: Essential (primary) hypertension-I10; Presence of prosthetic heart valve-Z95.2 Indication: #29 Evolut FX TAVR-03/19/2022, Hyperlipidemia, 2/6 Sytolic Murmur, Obesity CPT Codes: Echo Complete w Full Doppler-88761 Study Detail: The following Echo studies were [...] AoV Mean P.8 mmHg (1.7-11.5mmHg) LVOT Max Gianfranco: 1.07 m/s (<=1.1m/s) AoV VTI: 66.71 cm (18-25cm) LVOT VTI: 29.06 cm LVOT Diameter: 2 (more content not included)... [facility] Study observation (narrative) [facility] Transthoracic echo (TTE) com pleteOrdered By: Radiologist Radiology on 02-04-2025 [facility] Work Phone: Heart Transthoracicon Aortic Valve Area by Continuity of Peak Velocity 1.37 cm2 [facility] Work Phone: Aortic Valve Area by Continuity of VTI 1.49 cm2 [facility] Work Phone: [phone] AV mn grad 16 mmHg [facility] Work Phone: [phone] AV pk grad 28 mmHg [facility] Work Phone: [phone] AV pk gianfranco 2.67 m/s [facility] Work Phone: [phone] LA vol index A/L 29.0 ml/m2 [facility] Work Phone: [phone] LV A4C EF 75.7 [facility] Work Phone: [phone] LV Biplane EF 71 % [facility] Work Phone: [phone] LV EF 63 % [facility] Work Phone: [phone] LVIDd 5.31 cm [facility] Work Phone: [phone] LVOT diam 2.09 cm [facility] Work Phone: [phone] MV avg E/e' ratio 11.38 [facility] Work Phone: [phone] MV E/A ratio 0.76 [facility] Work Phone: [phone] RV free wall pk S' 15.45 cm/s [facility] Work Phone: [phone] RVSP 22 mmHg [facility] Work Phone: [phone] Tricuspid annular plane systolic excursion 1.5 cm [facility] Work Phone: [address], [address], [place] [address] TRANSTHORACIC ECHOCARDIOGRAM REPORT Patient Name: VIRGILIO Goel Physician: [id number] Josep Perdomo MD Study Date: 02/04/2025 Ordering Provider: [id number] JOSEP CONOR MRN/PID: [id number] Fellow: Nurse: Date of /Age: 8 1960 [employer] Supervisor: Heide srivastava RDCS, RVT Gender Assigned at F Additional Staff: : Height: 175.26 cm Admit Date: Weight: 102.97 kg Admission Status: Outpatient BSA / BMI: 2.18 m2 / 33.52 Department Location: [facility] Heart kg/m2 [place] Blood Pressure: 142 /68 mmHg Study Type: TRANSTHORACIC ECHO (TTE) COMPLETE Diagnosis/ICD: Essential (primary) hypertension-I10; Presence of prosthetic heart valve-Z95.2 Indication: #29 Evolut FX TAVR-03/19/2022, Hyperlipidemia, 2/6 Sytolic Murmur, Obesity CPT Codes: Echo Complete w Full Doppler-02509 Study Detail: The following Echo studies were [...] 63 % LV DIASTOLIC FUNCTION: Normal Ranges: (more content not included)... Josep Ramires MD - 02/04/2025 [facility] [address] [place] [address], [address], [place] [address] TRANSTHORACIC ECHOCARDIOGRAM REPORT Patient Name: VIRGILIO JOHNSON Reading Physician: [id number] Perdomo MD Study Date: 02/04/2025 Ordering Provider: Ceasar PERDOMO MRN/PID: [id number] Fellow: Nurse: Date of /Age: 8 1960 [employer] Supervisor: Heide srivastava RDCS, RVT Gender Assigned at F Additional Staff: : Height: 175.26 cm Admit Date: Weight: 102.97 kg Admission Status: Outpatient BSA / BMI: 2.18 m2 / 33.52 Department Location: [facility] kg/m2 [place] Blood Pressure: 142 /68 mmHg Study Type: TRANSTHORACIC ECHO (TTE) COMPLETE Diagnosis/ICD: Essential (primary) hypertension-I10; Presence of prosthetic heart valve-Z95.2 Indication: #29 Evolut FX TAVR-03/19/2022, Hyperlipidemia, 2/6 Sytolic Murmur, Obesity CPT Codes: Echo Complete w Full Doppler-[id number] Study Detail: The following Echo studies were [...] AoV Mean P.8 mmHg (1.7-11.5mmHg) LVOT Max Gianfranco: 1.07 m/s (<=1.1m/s) AoV VTI: 66.71 cm (18-25cm) LVOT VTI: 29.06 cm LVOT Diameter: 2.09 cm (1 (more content not included)... [facility] Work Phone: [facility] Work Phone: HbA1c (Bld) [Mass fraction]o n 01-31-2025 Interpretation and review of laboratory results Normal [facility] Laboratory - Hematology and Cell countson 01-31-2025 HbA1c (Bld) [Mass fraction] 5.8 % [facility] HbA1c (Bld) [Mass fraction]O rdered By: Flor Velasco on 08-03-2024 Interpretation and review of laboratory results Normal [facility] Laboratory - Hematology and Cell countsOrdered By: Flor Velasco on 08-03-2024 HbA1c (Bld) [Mass fraction] 6.1 % [facility] HbA1c (Bld) [Mass fraction]o n 03-30-2024 Interpretation and review of laboratory results Normal [facility] Laboratory - Chemistry and C hemistry - challengeon 03-30-2024 Albumin DL <= 20 mg/L (U) [Mass/Vol] 300 mg/dL [facility] Comment on above: moderately increased Laboratory - Hematology and Cell countson 03-30-2024 HbA1c (Bld) [Mass fraction] 6.2 % [facility] No Panel Informationon 03-30 Interpretation and review of laboratory results Abnormal [facility] ALL CBC WITH AUTO DIFFon BASOPHILS ABSOLUTE AUTO 0.0 [facility] Basophils/100 WBC (Bld) 0.3 % 0.2 - 2.0 % [facility] Eosinophils/100 WBC (Bld) 3.5 % 0.9 - 7.0 % [facility] Erythrocyte distribution width (RBC) [Ratio] 12.9 % 11.0 - 15.0 % [facility] Hematocrit (Bld) [Volume fraction] 32.8 % Low 36.0 - 48.0 % [facility] Hemoglobin (Bld) [Mass/Vol] 10.8 g/dL Low 12.0 - 16.0 g/dL [facility] IMMATURE GRANULOCYTES ABS AUTO 0.02 [facility] Immature granulocytes/100 WBC (Bld) 0.3 % 0.0 - 0.5 % [facility] Interpretation and review of laboratory results Abnormal [facility] LYMPHOCYTES ABSOLUTE AUTO 1.7 [facility] Lymphocytes/100 WBC (Bld) 28.7 % 20.5 - 60.0 % [facility] MCH (RBC) [Entitic mass] 29.9 pg 26.7 - 34.0 pg [facility] MCHC (RBC) [Mass/Vol] 32.9 g/dL 29.9 - 35.2 g/dL [facility] MCV (RBC) [Entitic vol] 90.9 fL 81.0 - 99.0 fL [facility] MONOCYTES ABSOLUTE AUTO 0.5 [facility] Monocytes/100 WBC (Bld) 7.4 % 1.7 - 12.0 % [facility] NEUTROPHILS ABSOLUTE AUTO 3.6 [facility] Neutrophils/100 WBC (Bld) 59.8 % 43.0 - 75.0 % [facility] Platelet mean volume (Bld) [Entitic vol] 9.5 fL 9.5 - 13.5 fL [facility] TB EO # 0.2 [facility] TB PLT [address] [facility] RBC 3.61 Low [facility] WBC 6.1 [facility] CNOVon 09-02-2023 CNOV Office Visit (LOORRM ) -------- VIRGILIO JOHNSON ([id number]) 1960 F Date Time Provider Department 09/02/23 [...] every Mon (more content not included)... Normal [facility] CNOVon 07-29-2023 CNOV Office Visit (LOORRM ) -------- VIRGILIO JOHNSON ([id number]) 1960 F Date Time Provider Department 07/29/23 10:00 AM LUCAS LEVY During your visit [...] last few months. 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 Normal [facility] XR KNEE 3V AP/LAT/XAVIER BILon 07-29-2023 XR [...] TISSUES: Unremarkable. IMPRESSION: Stable bilateral knee arthroplasties. Ice Cream Vendor: [employer] Transcribe Date/Time: Jul 29 2023 3:07P Dictated by : JAIR JOSHUA MD This examination was interpreted and the report reviewed and electronically signed by: JAIR JOSHUA MD on Jul 29 2023 3:13PM EST [id number] Normal [facility] XR Knee - bilateral 3 Viewso n 07-29-2023 IMPRESSION: Stable bilateral knee arthroplasties. Ice Cream Vendor: [employer] Transcribe Date/Time: Jul 29 2023 3:07P Dictated [...] SOFT TISSUES: Unremarkable. DIVISION OF RADIOLOGY Provider, Psychiatric Leyla [facility] - 07/29/2023 * * *Final Report* * [...] Unremarkable. IMPRESSION IMPRESSION: Stable bilateral knee arthroplasties. Ice Cream Vendor: [employer] Transcribe Date/Time: Jul 29 2023 3:07P Dictated by : JAIR JOSHUA MD This examination was interpreted and the report reviewed and electronically signed by: JAIR JOSHUA MD on Jul 29 2023 3:13PM EST [facility] Radiology Study observation (narrative) [facility] XR Knee - bilateral 3 ViewsO rdered By: Psychiatric Provider on 07-29-2023 [facility] Office Visit (Cardiology)on 03-17-2023 Follow-up visit Diagnoses/Problems Assessed S/P TAVR (transcatheter aortic valve replacement) (V43.3) (Z95.2) Essential hypertension, benign (401.1) (I10) Orders S/P TAVR (transcatheter aortic valve replacement) Echocardiogram; Status:Hold For - Scheduling; Requested for:[id number]; Chief Complaint VIRGILIO JOHNSON is being seen [...] are negative for complaint. Scores and Scales [place] Cardiomyopathy Ques (more content not included)... Normal [facility] CNOVon 02-28-2023 CNOV Office Visit (LOORRM ) -------- VIRGILIO JOHNSON ([id number]) 1960 F Date Time Provider Department 02/28/23 [...] Order(s):XR KNEE POST OP 3V AP/LAT/MERCHANT BILATERAL [[id number]] Order #: [id number] FUTURE Prescriptions as of 03/06/2023 - clindamycin [...] Status:Closed by VIOLET COMBS II on 03/06/23 Normal [facility] XR KNEE 3V AP/LAT/XAVIER BILon 02-28-2023 XR [...] postoperative appearance bilaterally. No other significant abnormality. Ice Cream Vendor: [employer] Transcribe Date/Time: Feb 28 2023 12:02P Dictated by : RACHEAL BENITEZ MD This examination was interpreted and the report reviewed and electronically signed by: RACHEAL BENITEZ MD on Feb 28 2023 12:02PM EST [id number] Normal [facility] XR KNEE POST OP 3V AP/LAT/ME RCHANT BILATERALon 02-28-2023 [facility] XR Knee - bilateral 3 Viewso n [...] postoperative appearance bilaterally. No other significant abnormality. Ice Cream Vendor: [facility] Transcribe Date/Time: Feb 28 2023 12:02P Dictated by : RACHEAL BENITEZ MD This examination was interpreted and the report reviewed and electronically signed by: RACHEAL BENITEZ MD on Feb 28 2023 12:02PM [facility] DIVISION OF RADIOLOGY Provider, [facility] - 02/28/2023 * * *Final Report* [...] postoperative appearance bilaterally. No other significant abnormality. Ice Cream Vendor: [employer] Transcribe Date/Time: Feb 28 2023 12:02P Dictated by : RACHEAL BENITEZ MD This examination was interpreted and the report reviewed and electronically signed by: RACHEAL BENITEZ MD on Feb 28 2023 12:02PM [facility] Radiology Study observation (narrative) [facility] XR Knee - bilateral 3 ViewsO rdered By: Psychiatric Provider on 02-28-2023 [facility] Office Visit (Cardiology)on 11-30-2022 Follow-up visit Diagnoses/Problems Assessed Essential hypertension, benign (401.1) (I10) Orders Essential hypertension, benign Start: Chlorthalidone 25 MG Oral Tablet; TAKE 1 TABLET DAILY Basic Metabolic Panel; Status:Active - Retrospective Authorization; Requested for:[id number]; Patient Instructions Please bring all medicines, vitamins, [...] 10/06/2022 3:59:12 PM Vitals Vital Signs Recorded: [id number] 01:11PMRecorded: 49Jcf9434 01:08PM Ycwglsot711, LUE, Ddlatif440, RUE, Sitting Lbgouxfmd20, LUE, Pxufblg74, RUE, Sitting Heart Rate80, R Radial Height5 ft 8 in Uhonow007 lb BMI Wogyeosxpm02.53 kg/m2 BSA Calculated2.28 Signatures Electronically signed by : Josep Perdomo MD; Nov 30 2022 7:06PM EST (Author) Normal [facility] Bacteria Fld Culton 11-30-19 23 Bacteria identified Cx Nom (Body fld) CULTURE, BODY FLD: No growth GRAM STAIN: No organisms seen Rare Polymorphonuclear leukocytes Rare Mononuclear cells Gram stain from primary specimen Normal [facility] Comment on above: Performed By: #### 6 11-4 ####[facility] LABCLIA [id number] [address] STATES OF [facility] CNOVon 11-29-2022 CNOV Office Visit (LOORRM ) -------- VIRGILIO JOHNSON ([id number]) 1960 F Date Time Provider Department 11/29/22 [...] the next few weeks. Also scheduled for [place] therapy sessions. She states pain is well [...] knee joint Informed Consent Consent Obtained: Written [place] Protocol A moment to CARE was completed. [...] in the usual sterile fashion. Site: R kn (more content not included)... Normal [facility] SYNOVIAL FL,CRYSTAL ID/STAFF REVon 11-29-2022 CRYSTAL PRELIM, SF PRELIMINARY REPORT N o diagnostic crystals seen. SEE FINAL SF PATH REVIEW Normal [facility] Comment on above: Order Comment: Speci men Type: BODY FLUID SPECIMENOrdering Facility: [facility] Address: [address] [place] [address] [place] [address] Performed By: #### R TSYNF, SFCRID ####[facility] LABORATORYCLIA [id number] [place] [address] [facility] LABCLIA [id number] [place] [address] [place]#### [id number] ####[facility] LABCLIA [id number] [place] [address] [place] CRYSTAL REVIEW Reviewed by Kavya Sultana MD Normal [facility] Comment on above: Order Comment: Speci men Type: BODY FLUID SPECIMENOrdering Facility: [facility] Address: [address] [place] [address] Performed By: #### MAYTE POLO ####[facility] LABORATORYCLIA [id number] [address] LABCLIA [id number] [place] [address] [place]#### [id number] ####[facility] LABCLIA [id number] [place] [address] [place] Crystals LM Nom (Syn fld) None seen Normal None seen [facility] Comment on above: Order Comment: Speci men Type: BODY FLUID SPECIMENOrdering Facility: [facility] Address: [address] [place], [place] [address] Performed By: #### MAYTE POLO ####[facility] LABORATORYCLIA [id number] [place] [address] [facility] LABCLIA [id number] [place] [address] [place]#### [id number] ####[facility] LABCLIA [id number] [place] [address] [place] SYNOVIAL FLUID MANUAL DIFFon 11-29-2022 DIF TTL, SYNOVIAL FLUID 100 cells counted Normal [facility] Comment on above: Order Comment: Speci men Type: BODY FLUID SPECIMENOrdering Facility: [facility] Address: [address] [place] [address] Performed By: #### MAYTE POLO ####[facility] LABORATORYCLIA [id number] [place] [address] [place] [address] LABCLIA [id number] [place] [address] [place]#### [id number] ####[facility] LABCLIA [id number] [place] [address] [place] EOSIN %, SF 3 Normal [facility] Comment on above: Order Comment: Speci men Type: BODY FLUID SPECIMENOrdering Facility: [facility] Address: [address] [place] Performed By: #### MAYTE POLO ####[facility] LABORATORYCLIA [id number] [place] [address] [place] [facility] LABCLIA [id number] [place] [address] [place]#### [id number] ####[facility] LABCLIA [id number] [place] [address] [place] LYMPH%, SF 57 Normal [facility] Comment on above: Order Comment: Speci men Type: BODY FLUID SPECIMENOrdering Facility: [facility] Address: [address] [place] [address] Performed By: #### MAYTE POLO ####[facility] LABORATORYCLIA [id number] [place] [address] [place] [facility] LABCLIA [id number] [facility] [address] [address] [place]#### [id number] ####[facility] LABCLIA [id number] [place] [address] [place] MACRO%, SF 5 Normal [facility] Comment on above: Order Comment: Speci men Type: BODY FLUID SPECIMENOrdering Facility: [facility] Address: [address] [id number] Performed By: #### MAYTE POLO ####[facility] LABORATORYCLIA [id number] [place] [address] [facility] LABCLIA [id number] [place] [address] [place]#### [id number] ####[facility] LABCLIA [id number] [place] [address] [place] MONO%, SF 2 Normal [facility] Comment on above: Order Comment: Speci men Type: BODY FLUID SPECIMENOrdering Facility: [facility] Address: [address] [place] [address] Performed By: #### MAYTE POLO ####[facility] LABORATORYCLIA [id number] [place] [address] [place] [facility] LABCLIA [id number] [place] [address] [place]#### [id number] ####[facility] LABCLIA [id number] [place] [address] [place] NEUT% 33 High 0-<25 [facility] Comment on above: Order Comment: Speci men Type: BODY FLUID SPECIMENOrdering Facility: [facility] Address: [address] [place] [address] Performed By: #### MAYTE POLO ####[facility] LABORATORYCLIA [id number] [place] [address] [place] [facility] LABCLIA [id number] [place] [address] [place]#### [id number] ####[facility] LABCLIA [id number] [place] [address] [place] SYNOVIAL FLUID, ROUTINEon Clarity (Unsp spec) Clear Normal Clear [facility] Comment on above: Order Comment: Speci men Type: BODY FLUID SPECIMENOrdering Facility: [facility] Address: [address] [place] [address] Performed By: #### MAYTE POLO ####[facility] LABORATORYIA [id number] [place] [address] [place] [facility] LABCLIA [id number] [place] [address] [place]#### [id number] ####[facility] LABCLIA [id number] [place] [address] [place] Color (Syn fld) Simran Abnormal Yellow [facility] Comment on above: Order Comment: Speci men Type: BODY FLUID SPECIMENOrdering Facility: [facility] Address: [address] [place], [place] [address] Performed By: #### MAYTE POLO ####[facility] LABORATORYCLIA [id number] [place] [address] [place] [facility] LABCLIA [id number] [place] [address] [place]#### [id number] ####[facility] LABCLIA [id number] [place] [address] [place] RBC Manual cnt (Syn fld) [#/Vol] 37583 /uL High <2000 [facility] Comment on above: Order Comment: Speci men Type: BODY FLUID SPECIMENOrdering Facility: [facility] Address: [address] [place] [address] Performed By: #### R DIANNAF, SFCRID ####[facility] LABORATORYCLIA [id number] [place], [place] [address] [place] [address] LABCLIA [id number] [place] [address] [place]#### [id number] ####[facility] LABCLIA [id number] [place] [address] [place] Specimen source Nom (Unsp spec) KNEE RIGHT SYNOVIAL FLUID Normal [facility] Comment on above: Order Comment: Speci men Type: BODY FLUID SPECIMENOrdering Facility: [facility] Address: [address] [place] [address] Performed By: #### MAYTE POLO ####[facility] LABORATORYCLIA [id number] [address] [facility] LABCLIA [id number] [place] [address] [place]#### [id number] ####[facility] LABCLIA [id number] [place] [address] [place] WBC Manual cnt (Syn fld) [#/Vol] 496 /uL High 0-200 [facility] Comment on above: Order Comment: Speci men Type: BODY FLUID SPECIMENOrdering Facility: [facility] Address: [address] [place] [address] Performed By: #### MAYTE POLO ####[facility] LABORATORYCLIA [id number] [address] STATES OF [facility] LABCLIA [id number] [place] [address] [place]#### [id number] ####[facility] LABCLIA [id number] [place] [address] [place] CNOVon 11-03-2022 CNOV Office Visit (LOORRM ) -------- VIRIGLIO JOHNSON ([id number]) 1960 F Date Time Provider Department 11/03/22 [...] KNE CONDYLEANDPLATU MEDIALANDLAT COMPARTMENTS Right 2013 partial KR COLONOSCOPY SCREENING EYE SURGERY HX [...] Order(s):CONSULT TO PHYSICAL THERAPY [9032] Order #: [id number]: 1 Prescriptions as of 11/11/2022 - oxyCODONE [...] AND TWO (more content not included)... Normal [facility] CNOVon 10-15-2022 CNOV Office Visit (LOORRM ) -------- VIRGILIO JOHNSON ([id number]) 1960 F Date Time Provider Department 10/15/22 [...] total knee, 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] Order(s):AQUATIC COMMUNITY EXERCISE [[id number]] Order #: [id number] Prescriptions as of 10/15/2022 - oxyCODONE IR [...] Postoperative anemia [D64.9] 08/20/2022 Encounter Status:Closed by VIOLTE COMBS II on 10/15/22 Normal [facility] Office Visit (Cardiology)on 10-06-2022 Follow-up visit Diagnoses/Problems [...] Recorded: 06Oct2022 03:59PM Heart Rate80, L Radial Djaowrnt541, LUE, Sitting Qmjabcjwy80, LUE, Sitting Height5 ft 8 in Tglfgs262 lb BMI Xvluikinaa25.01 kg/m2 BSA Calculated2.25 Tobacco Useb) No PHQ-2 [...] and l (more content not included)... Normal [facility] Tobacco Screening.on 023 Adult depression screening assessment No [facility] y 250 DO Work Phone: Tobacco use status CPHS b) No [facility] y 250 DO Work Phone: MAGNESIUMon 10-01-2022 Magnesium [Mass/Vol] 1.7 mg/dL Critically low 1.8-2.4 [facility] Comment on above: Performed By: #### M G, PHOS #### [facility] [address] [place] [address] Dr. Luh Brown PHOSPHORUSon 10-01-2022 Phosphate [Mass/Vol] 4.5 mg/dL Normal 2.6-4.7 [facility] Comment on above: Performed By: #### M G, PHOS #### [facility] [address] [place] [address] Dr. Luh Brown VIT B12 AND FOLATEon 023 Cobalamin (Vitamin B12) [Mass/Vol] 316.0 pg/mL Normal 193.0-986. 0 [facility] Comment on above: Performed By: #### B 12FOL #### [facility] [address] [place] [address] Dr. Luh Brown FOLATE 16.70 ng/mL Normal 8.60-58.90 [facility] Comment on above: Performed By: #### B 12FOL #### [facility] [address] [place] [address] Dr. Luh Brown No Panel InformationOrdered By: Spenser Canchola on 09-17-2022 Total Triiodothyronine 1.33 ng/mL 0.87-1.78 [facility] TSH DL <= 0.005 mIU/L QnOrde red By: Spenser Canchola on 09-17-2022 TSH Qn 2.74 m[IU]/L 0.45-5.33 [facility] Thyroxine (T4) [Mass/volume] in Serum or PlasmaOrdered By: Spenser Canchola on 09-17-2022 T4 [Mass/Vol] 7.73 ug/dL 5.39-11.82 [facility] CNOVon 09-07-2022 CNOV Office Visit (LOORRM ) -------- VIRGILIO JOHNSON ([id number]) 1960 F Date Time Provider Department 09/07/22 [...] 2022 4:22 PM Referring Provider: LUCAS LEVY [[id number]] Allergies As of Date: 09/07/2022 Noted Allergy [...] Visit Diagnosis:S (more content not included)... Normal [facility] XR KNEE 3V AP/LAT/MERCHANT R Ton 09-07-2022 [...] arthroplasty without complication. IMPRESSION: Arthroplasty without complication Ice Cream Vendor: [facility] Transcribe Date/Time: Sep 07 2022 3:30P Dictated by : CHARITY WEST MD This examination was interpreted and the report reviewed and electronically signed by: CHARITY WEST MD on Sep 07 2022 8:49PM EST [id number] Normal [facility] XR KNEE POST OP 3V AP/LAT/ME RCHANT RIGHTon 09-07-2022 [facility] XR Knee AP and Lateral and M erchantson 09-07-2022 IMPRESSION: Arthroplasty without complication Ice Cream Vendor: [facility] Transcribe Date/Time: Sep 07 2022 3:30P Dictated [...] arthroplasty without complication. DIVISION OF RADIOLOGY Provider, Psychiatric Leyla [facility] - 09/07/2022 * * *Final Report* * [...] without complication. IMPRESSION IMPRESSION: Arthroplasty without complication Ice Cream Vendor: [facility] Transcribe Date/Time: Sep 07 2022 3:30P Dictated by : CHARITY WEST MD This examination was interpreted and the report reviewed and electronically signed by: CHARITY WEST MD on Sep 07 2022 8:49PM EST [facility] Radiology Study observation (narrative) [facility] XR Knee AP and Lateral and M erchantsOrdered By: Ccf Provider on 09-07-2022 [facility] Basic metabolic 2000 panelon 08-20-2022 Anion gap [Moles/Vol] 12 mmol/L Normal 9-[address] [facility] Comment on above: Order Comment: Speci men Type: BLOOD SPECIMENOrdering Facility: [facility] Address: [address] [address] Performed By: #### 2 4321-2 ####[facility] LABORATORYIA [id number] [place] [address] [place] Calcium [Mass/Vol] 8.6 mg/dL Normal 8.5-10.2 [facility] Comment on above: Order Comment: Speci men Type: BLOOD SPECIMENOrdering Facility: [facility] Address: [address] [address] Performed By: #### 2 4321-2 ####[facility] CENTERIA [id number] [place] [address] [place] Chloride [Moles/Vol] 106 mmol/L High 97-105 [facility] Comment on above: Order Comment: Speci men Type: BLOOD SPECIMENOrdering Facility: [facility] Address: [address] [place] [address] Performed By: #### 2 4321-2 ####[facility] MED[facility] CENTERIA [id number] [place] [address] [place] CO2 [Moles/Vol] 20 mmol/L Low 22-30 [facility] Comment on above: Order Comment: Speci men Type: BLOOD SPECIMENOrdering Facility: [facility] Address: [address] [address] Performed By: #### 2 4321-2 ####[facility] LABORATORYIA [id number] [place] [address] [place] Creatinine [Mass/Vol] 1.14 mg/dL High 0.58-0.96 [facility] Comment on above: Order Comment: Speci men Type: BLOOD SPECIMENOrdering Facility: [facility] Address: [address] [address] Performed By: #### 2 4321-2 ####[facility] LABORATORYIA [id number] [place] [address] [place] ESTIMATED GLOMERULAR FILTRATION RATE 55 mL/min/1.73m??? Low >=60 [facility] Comment on above: Order Comment: Symone fraire Type: BLOOD SPECIMENOrdering Facility: [facility] Address: [address] [place] [address] Result Comment: Jt mated Glomerular Filtration Rate [...] actual GFR. Performed By: #### 2 4321-2 ####[facility] LABORATORYCLIA [id number] [place] [address] [place] Glucose [Mass/Vol] 127 mg/dL High 74-99 [facility] Comment on above: Order Comment: Symone fraire Type: BLOOD SPECIMENOrdering Facility: [facility] Address: [address] [place] [address] Result Comment: The [place] Diabetes Association (ADA) provides guidance for cutoff [...] Standards of Medical Care in Diabetes 2016, [place] Diabetes Association. Diabetes Care. 2016.39(Suppl 1). Performed By: #### 2 4321-2 ####[facility] LABORATORYCLIA [id number] [place] [address] [place] Potassium [Moles/Vol] 4.9 mmol/L Normal 3.7-5.1 [facility] Comment on above: Order Comment: Symone men Type: BLOOD SPECIMENOrdering Facility: [facility] Address: [address] [address] Performed By: #### 2 4321-2 ####[facility] CENTERIA [id number] [address] Sodium [Moles/Vol] 138 mmol/L Normal 136-144 [facility] Comment on above: Order Comment: Speci men Type: BLOOD SPECIMENOrdering Facility: [facility] Address: [address] [address] Performed By: #### 2 4321-2 ####[facility] CENTERIA [id number] [address] [place] [place] Urea nitrogen [Mass/Vol] 27 mg/dL High 7- [facility] Comment on above: Order Comment: Speci men Type: BLOOD SPECIMENOrdering Facility: [facility] Address: [address] [address] Performed By: #### 2 4321-2 ####[facility] MED[facility] CENTERIA [id number] [address] [place] CBC panel Auto (Bld)on 08-20 Erythrocyte distribution width (RBC) [Ratio] 13.8 % Normal 11.5-15.0 [facility] Comment on above: Order Comment: Speci men Type: BLOOD SPECIMENOrdering Facility: [facility] Address: [address] [address] Performed By: #### 5 8410-2 ####[facility] CENTERIA [id number] [address] OF [facility] Hematocrit (Bld) [Volume fraction] 26.3 % Low 36.0-46.0 [facility] Comment on above: Order Comment: Speci men Type: BLOOD SPECIMENOrdering Facility: [facility] Address: [address] [address] Performed By: #### 5 8410-2 ####[facility] LABORATORYIA [id number] [address] OF [facility] Hemoglobin (Bld) [Mass/Vol] 8.8 g/dL Low 11.5-15.5 [facility] Comment on above: Order Comment: Speci men Type: BLOOD SPECIMENOrdering Facility: [facility] Address: [address] [address] Performed By: #### 5 8410-2 ####[facility] LABORATORYIA [id number] [address] [place] [place] MCH (RBC) [Entitic mass] 29.2 pg Normal 26.0-34.0 [facility] Comment on above: Order Comment: Speci men Type: BLOOD SPECIMENOrdering Facility: [facility] Address: [address] [address] Performed By: #### 5 8410-2 ####[facility] CENTERIA [id number] [address] [place] [place] MCHC (RBC) [Mass/Vol] 33.5 g/dL Normal 30.5-36.0 [facility] Comment on above: Order Comment: Speci men Type: BLOOD SPECIMENOrdering Facility: [facility] Address: [address] [address] Performed By: #### 5 8410-2 ####[facility] LABORATORYIA [id number] [address] [place] MCV (RBC) [Entitic vol] 87.4 fL Normal 80.0-100.0 [facility] Comment on above: Order Comment: Speci men Type: BLOOD SPECIMENOrdering Facility: [facility] Address: [address] [address] Performed By: #### 5 8410-2 ####[facility] LABORATORYIA [id number] [address] OF [facility] Nucleated RBC (Bld) [#/Vol] 10*3/uL Normal <0.01 [facility] Comment on above: Order Comment: Speci men Type: BLOOD SPECIMENOrdering Facility: [facility] Address: [address] [place] [address] Performed By: #### 5 8410-2 ####[facility] LABORATORYIA [id number] [place] [address] [place] Platelet mean volume (Bld) [Entitic vol] 9.5 fL Normal 9.0-12.7 [facility] Comment on above: Order Comment: Speci men Type: BLOOD SPECIMENOrdering Facility: [facility] Address: [address] Performed By: #### 5 8410-2 ####[facility] [id number] [place] [id number] [place] Platelets (Bld) [#/Vol] 247 10*3/uL Normal 150-400 [facility] Comment on above: Order Comment: Speci men Type: BLOOD SPECIMENOrdering Facility: [facility] Address: [address] Performed By: #### 5 8410-2 ####[facility]ENTERIA [id number] [place] [address] [place] RBC (Bld) [#/Vol] 3.01 10*6/uL Low 3.90-5.20 [facility] Comment on above: Order Comment: Speci men Type: BLOOD SPECIMENOrdering Facility: [facility] Address: [address] Performed By: #### 5 8410-2 ####[facility] [id number] [place] [address] [place] WBC (Bld) [#/Vol] 10.89 10*3/uL Normal 3.70-11.00 [facility] Comment on above: Order Comment: Speci men Type: BLOOD SPECIMENOrdering Facility: [facility] Address: [address] Performed By: #### 5 8410-2 ####[facility] LABORATORYIA [id number] [place] [id number] [facility] CNDSon 08-20-2022 CNDS HNO ID: [id number] Author: Jennifer Herring PA-C Service: Orthopaedic Surgery Author Type: Physician Job Boss Type: Discharge Summary Filed: 08/20/2022 1:21 PM [...] [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 Normal [facility] CONSULT PROGon 08-20-2022 CONSULT PROG HNO ID: [id number] Author: Lashay Burnett APRN.TRUSS DRIVER HELPER Service: Hospital Medicine Author Type: Nurse Practitioner Type: Consult Progress Note Filed: 08/20/2022 1:04 PM Note Text: DEPARTMENT OF HOSPITAL MEDICINE CONSULT PROGRESS NOTE SERVICE DATE: 08/20/2022 SERVICE TIME: 1:03 PM Primary Care Physician: Oswaldo Grewal MD NIGHT AND WEEKEND COVERAGE: [place] COVERAGE: Days: [phone], please contact via [email or web address] Nights: - floor: please page Hospitalist night cover [phone] - 4th floor: please page Hospitalist night cover [phone] - 5th floor: please page Hospitalist night cover [phone] Subjective INTERVAL HPI: patient awake in chair [...] review of (more content not included)... 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 Normal [facility] THERAPY NT HNO ID: [id number] Author: Luz Johnson PT Service: Physical Therapy Author Type: Physical Therapist Type: Therapy (PT/OT/Speech/Resp) Filed: 08/20/2022 11:24 AM Note Text: Physical Therapy Evaluation SERVICE DATE: 08/20/2022 SERVICE TIME: 955 to 1052 ROOM: [place] [address] Recommended Discharge Disposition: Outpatient Physical Therapy Recommended [...] difficulty consistently mobilizing with proper gait pattern.) -M: 7: Walk 25 feet or more Learning/Educational [...] Difficulty walking-musculoskeletal Interventions Provided: Evaluation, Therapeutic Exercise (41083), Gait Training (06347) $ Evaluation-Low (36974) Billed Units: 1 unit Therapeutic Exercise (90522) Treatment Minutes: 15 $ Therapeutic Exercise (80924) Billed Units: 1 unit Review of written HEP for TKA (more content not included)... [facility] ANES POSTPROC EVALon 023 ANES POSTPROC EVAL HNO ID: [id number] Author: Guerline Botello MD Service: Anesthesiology Author [...] August 19, 2022 TIME: 2:48 PM CSN: [id number] [facility] ANES PRE-OPon 02-02-2023 ANES PRE-OP HNO ID: [id number] Author: Guerline Botello MD Service: Anesthesiology Author Type: Anesthesiologist Type: Anesthesia Preprocedure Evaluation Filed: 08/19/2022 10:18 AM Note Text: ANESTHESIOLOGY DAY OF SURGERY NOTE : 1960 Procedure Information Date/Time: 08/19/22 1028 Procedure: REVISION JOINT TOTAL KNEE FEMORAL AND ENTIRE TIBIAL COMPONENT LORETTA (Right: Knee) Location: AV OR04 / AV OR Surgeons: Violet Combs MD Estimated body mass index is [...] 08/05/2022 Neut% 59.4 12/09/2021 Lymph% 29.7 12/09/2021 Inyo% 8.1 12/09/2021 Eosin% 2.8 01/08/2020 Baso% 0.3 12/09/2021 Abs Neut (ANC) 4.01 12/09/2021 Abs Inyo 0.55 12/09/2021 Abs Eosin 0.15 12/09/2021 Abs [...] and consent discussed: yes. Patient / Responsible Republican agrees to proceed: yes Patient / Surrogate [...] August 19, 2022 TIME: 8:52 AM CSN: [id number] [facility] CONSULTon 08-19-2022 CONSULT HNO ID: [id number] Author: Arlin Kwok APRN.TRUSS DRIVER HELPER Service: Hospital Medicine Author Type: Nurse Practitioner Type: Consults Filed: 08/19/2022 8:51 PM Note Text: DEPARTMENT OF HOSPITAL MEDICINE INITIAL CONSULT SERVICE DATE: 08/19/2022 SERVICE TIME: 8:38 PM Primary Care Physician: Oswaldo Grewal MD NIGHT AND WEEKEND COVERAGE: [place] COVERAGE: Days: , please contact via [employer] Nights: - floor: please page Hospitalist night cover [phone] - 4th floor: please page Hospitalist night cover [phone] - 5th floor: please page Hospitalist night cover [phone] REASON FOR CONSULT: Medical management REQUESTING PHYSICIAN: [...] [START ON (more content not included)... Normal [facility] NURSING PROGon 08-19-2022 NURSING PROG HNO ID: [id number] Author: Chavez Cartagena RN Service: ? Author Type: Registered Nurse Type: Nursing Progress Note Filed: 08/19/2022 2:28 PM Note Text: Continues rocking in bed. Unable to obtain v/s d/t movement. Continues to deny c/o pain. Continues repeating my leg my leg. I need to move it. It won't stop moving . [facility] NURSING PROG HNO ID: [id number] Author: Chavez Cartagena RN Service: ? Author [...] ativan 2mg at 1406 with no effect. [facility] OPERATIVE NOon 08-19-2022 OPERATIVE NO HNO ID: [id number] Author: Violet Combs MD Service: Orthopaedic Surgery Author Type: Physician Type: Operative Report Filed: 08/19/2022 1:26 PM Note Text: [facility] OPERATIVE REPORT PATIENT NAME: Virgilio Johnson AGE: [age] year old LOG ID: [id number] Surgery Date: 08/19/2022 SURGEON: Violet Combs MD SLIDER ASSEMBLER: Lucas Levy PA-C, SA, her assistance consisted [...] Posterior Stabilized Femur 5 standard / narrow Loretta / Triathalon Tibia 5 Loretat Patella 33 mm Carroll Polyethylene 11mm TS Carroll OPERATIVE FINDINGS: There was complete loss of [...] lateral meniscus. We then put in our [employer] ligament testing gauge, which showed that the extension gap was in neutral valgus-varus position. We flexed the knee to 90 degrees and inserted the tensionmeter. We measured the femur prosthetic size as a 5 loretta. We marked our 2 drill holes for the chamfer cuts. We then put a size [address] (more content not included)... Normal [facility] SARS-CoV-2 RNA Resp Ql ISIDORO+p robeon 08-19-2022 SARS-CoV-2 (COVID-19) RNA ISIDORO+probe Ql (Resp) COVID 19 RESULT: Not detected The method used is RT-PCR or an equivalent NAAT method. Reference Range(the expected result in uninfected individuals): Not detected Normal [facility] Comment on above: Performed By: #### 9 4500-6 ####[facility] LABORATORYCLIA [id number] [facility].[address] SURGICAL PATHOLOGYon 023 CASE REPORT Normal [facility] Comment on above: Order Comment: Speci men Type: DEVICE SPECIMENOrdering Facility: [facility] Address: [facility] [place] [address] Result Comment: Surg [facility] Pathology Report Case: [id number] Authorizing Provider: Violet Combs MD Collected: 08/19/2022 01:42 PM Ordering Location: [facility] Surgery Received: 08/19/2022 02:18 PM Pathologist: Abhishek Bey MD, PhD Specimen: HARDWARE, right knee hardware for gross Performed By: #### S ####[facility] LABCLIA [id number] [address] CLINICAL HISTORY [facility] Comment on above: Order Comment: Speci men Type: DEVICE SPECIMENOrdering Facility: [facility] Address: [address] [place] [address] Result Comment: Pre- op diagnosis: S/P right unicompartmental knee replacement [Z96.651] Primary osteoarthritis of right knee [M17.11] Performed By: #### S ####[facility] LABCLIA [id number] [address] FINAL DIAGNOSIS Normal [facility] Comment on above: Order Comment: Speci men Type: DEVICE SPECIMENOrdering Facility: [facility] Address: [address] [place] [address] Result Comment: A. R ight knee, orthopedic hardware, removal: - Surgical hardware, for gross examination only. VIDHYA/FROYLAN 08/20/22 1:33 PM Performed By: #### S ####[facility] LABCLIA [id number] [address] FINAL PERFORMING LAB Normal [facility] Comment on above: Order Comment: Speci men Type: DEVICE SPECIMENOrdering Facility: [facility] Address: [address] [place] [address] Result Comment: Diag nostic interpretation performed at [facility], [address] [place] [address] CLIA# [id number] Energy Auditor: Floyd Barbour M.D. Performed By: #### S ####[facility] LABCLIA [id number] [address] GROSS DESCRIPTION A. HARDWARE Normal [facility] Comment on above: Order Comment: Speci men Type: DEVICE SPECIMENOrdering Facility: [facility] Address: [address] [place] [address] Result Comment: Rece ived fresh, labeled right [...] 2022 1:32 PM Gross examination performed at [facility], [address] [place] [address] Performed By: #### S ####[facility] LABCLIA [id number] [facility] [id number] [id number] [facility] THERAPY NTon 08-19-2022 THERAPY NT HNO ID: [id number] Author: Luz Johnson PT Service: Physical Therapy Author Type: Physical Therapist Type: Therapy (PT/OT/Speech/Resp) Filed: 08/19/2022 5:22 PM Note Text: PHYSICAL THERAPY MISSED VISIT SERVICE DATE: 08/19/2022 SERVICE TIME: 1627- 1635 ROOM: [place] [address] Patient not seen due to Sleeping -pt too drowsy to participate. Briefly wakes up to stimulation, but falls back to sleep/snoring loudly. RN aware/notified. Will re-attempt in AM when pt able to actively participate in therapy session. SIGNATURE: Luz Johnson PT PATIENT NAME: Virgilio Johnson DATE: August 19, 2022 TIME: 5:20 PM [facility] XR KNEE 2V AP/LAT RTon 08-19 [...] appearance and alignment of total knee arthroplasty Ice Cream Vendor: [facility] Transcribe Date/Time: Aug 20 2022 9:52A Dictated by : QI LEMA MD This examination was interpreted and the report reviewed and electronically signed by: QI LEMA MD on Aug 20 2022 9:52AM EST [id number] Normal [facility] Basic metabolic 2000 panelon 08-05-2022 Anion gap [Moles/Vol] 10 mmol/L 9 - 18 mmol/L [facility] Calcium [Mass/Vol] 9.6 mg/dL 8.5 - 10. 2 mg/dL [facility] Chloride [Moles/Vol] 106 mmol/L High 97 - 10 5 mmol/L [facility] CO2 [Moles/Vol] 25 mmol/L 22 - 30 mmol/L [facility] Creatinine [Mass/Vol] 0.89 mg/dL 0.58 - 0.96 mg/dL [facility] Estimated Glomerular Filtration Rate 74 mL/min/1.73m >=60 mL/min/1.7 3m [facility] Glucose [Mass/Vol] 106 mg/dL High 74 - 99 mg/dL [facility] Potassium [Moles/Vol] 4.2 mmol/L 3.7 - 5.1 mmol/L [facility] Sodium [Moles/Vol] 141 mmol/L 136 - 144 mmol/L [facility] Urea nitrogen [Mass/Vol] 20 mg/dL 7 - 21 mg/dL [facility] CBC panel Auto (Bld)on 08-05 Erythrocyte distribution width (RBC) [Ratio] 13.6 % 11.5 - 15.0 % [facility] Hematocrit (Bld) [Volume fraction] 35.2 % Low 36.0 - 46.0 % [facility] Hemoglobin (Bld) [Mass/Vol] 11.6 g/dL 11.5 - 15.5 g/dL [facility] MCH (RBC) [Entitic mass] 28.9 pg 26.0 - 34.0 pg [facility] MCHC (RBC) [Mass/Vol] 33.0 g/dL 30.5 - 36.0 g/dL [facility] MCV (RBC) [Entitic vol] 87.6 fL 80.0 - 100.0 fL [facility] Nucleated RBC (Bld) [#/Vol] <0.01 k/uL [facility] Platelet mean volume (Bld) [Entitic vol] 10.2 fL 9.0 - 12.7 fL [facility] Platelets (Bld) [#/Vol] 265 10*3/uL 150 - 400 k/uL [facility] RBC (Bld) [#/Vol] 4.02 10*6/uL 3.90 - 5.20 m/uL [facility] WBC (Bld) [#/Vol] 5.93 10*3/uL 3.70 - 11.00 k/uL [facility] FERRITIN BLDon 08-05-2022 Ferritin [Mass/Vol] 194.0 ng/mL 14.7 - 205.1 ng/mL [facility] Iron and Iron binding capaci ty panelon 08-05-2022 Iron [Mass/Vol] 57 ug/dL 41 - 186 ug/dL [facility] Iron binding capacity [Mass/Vol] 298 ug/dL 232 - 386 ug/dL [facility] Iron/TIBC [Molar ratio] 19.1 % 15.0 - 57.0 % [facility] STAPH AUREUS PCRon 3 S. aureus and MRSA panel ISIDORO+probe (Nose) Positive Abnormal Negative [facility] S. aureus and MRSA panel ISIDORO+probe (Nose) Negative Negative [facility] Creatinine and Glomerular fi ltration rate.predicted panel (S/P/Bld)Ordered By: Noemi Daniels on 06-28-2022 Creatinine [Mass/Vol] 1.09 mg/dL 0.44-1.03 [facility] Estimated glomerular filtrat ion rate (GFR) non- AmericanOrdered By: Noemi Daniels on 06-28-2022 GFR/1.73 sq M.predicted among non-blacks MDRD (S/P/Bld) [Vol rate/Area] 51 mL/Min [facility] No Panel InformationOrdered By: Noemi Daniels on 06-28-2022 Estimated GFR () > 60 mL/Min [facility] Comment on above: GFR estimated refere nce range: According to KDOQI guidelines, <60 ml/min/1.73m2 is sufficient to diagnose a patient with chronic kidney disease. Pharmacy Creatinine Clearance (Chem N/A [facility] Serum or plasma anion gap de terminationOrdered By: Noemi Daniels on 06-28-2022 Anion gap [Moles/Vol] 19.3 mmol/L 6.0-15.0 [facility] Serum or plasma calcium jeane urement (mass/volume)Ordered By: Noemi Daniels on 06-28-2022 Calcium [Mass/Vol] 9.2 mg/dL 8.2-10.2 [facility] Serum or plasma chloride thomas surement (moles/volume)Ordered By: Noemi Daniels on 06-28-2022 Chloride [Moles/Vol] 104 mmol/L 95-114 [facility] Serum or plasma glucose jeane urement (mass/volume)Ordered By: Noemi Daniels on 06-28-2022 Glucose [Mass/Vol] 154 mg/dL 70-100 [facility] Comment on above: ADA recommended refe rence rangeRandom Glucose Reference Range is dependent on time and content of last meal. Glucose of more than 200 mg/dL in a nonstressed, ambulatory subject supports the diagnosis of Diabetes Mellitus. Serum or plasma potassium me asurement (moles/volume)Ordered By: Noemi Daniels on 06-28-2022 Potassium [Moles/Vol] 4.4 mmol/L 3.5-5.1 [facility] Serum or plasma sodium measu rement (moles/volume)Ordered By: Noemi Daniels on 06-28-2022 Sodium [Moles/Vol] 139 mmol/L 136-146 [facility] Serum or plasma total carbon dioxide measurement (moles/volume)Ordered By: Noemi Daniels on 06-28-2022 CO2 [Moles/Vol] 20.1 mmol/L 22.0-30.0 [facility] Serum or plasma urea nitroge n measurement (mass/volume)Ordered By: Noemi Daniels on 06-28-2022 Urea nitrogen [Mass/Vol] 21 mg/dL 9-23 [facility] TSH DL <= 0.005 mIU/L QnOrde red By: Spenser Canchola on 06-28-2022 TSH Qn 12.21 m[IU]/L 0.45-5.33 [facility] Glucose Glucometer (BldC) [M ass/Vol]Ordered By: Spenser Canchola on 06-02-2022 Glucose [Mass/Vol] 145 mg/dL [facility] Comment on above: Random Glucose Refer ence Range is dependent on time and content of last meal. Glucose of more than 200 mg/dL in a nonstressed, ambulatory subject supports the diagnosis of Diabetes Mellitus. COVID-19 SOFIAOrdered By: Guilherme Canchola on 05-31-2022 SARS-CoV+SARS-CoV-2 (COVID-19) Ag IA.rapid Ql (Resp) Negative Negative [facility] Comment on above: This is a duplicate Kimberlee SARS Antigen (WILBERT) result to be used for statistical tracking purpose only. No Panel InformationOrdered By: Spenser Canchola on 05-31-2022 SARS Antigen (LFIA) [facility] XR KNEE GENERAL 4V AP BOTH/P A BOTH/LAT/MERC BILATERALon 05-31-2022 [facility] XR Knee - bilateral 4 Viewso n 05-31-2022 IMPRESSION: POSTOPERATIVE AND DEGENERATIVE CHANGES DESCRIBED IN THE RIGHT KNEE. EXPECTED POSTSURGICAL APPEARANCE OF THE LEFT KNEE. Ice Cream Vendor: [employer] Transcribe Date/Time: May 31 2022 12:13P Dictated by : RACHEAL BENITEZ MD This examination was interpreted and the report reviewed and electronically signed by: RACHEAL BENITEZ MD on May 31 2022 12:14PM [facility] DIVISION OF RADIOLOGY * * [...] other significant abnormality. DIVISION OF RADIOLOGY Provider, Psychiatric Leyla [facility] - 05/31/2022 * * *Final Report* * [...] EXPECTED POSTSURGICAL APPEARANCE OF THE LEFT KNEE. Ice Cream Vendor: [employer] Transcribe Date/Time: May 31 2022 12:13P Dictated by : RACHEAL BENITEZ MD This examination was interpreted and the report reviewed and electronically signed by: RACHEAL BENITEZ MD on May 31 2022 12:14PM EST [facility] Radiology Study observation (narrative) [facility] XR Knee - bilateral 4 ViewsO rdered By: [facility] Provider on 05-31-2022 [facility] Basophils Auto (Bld) [#/Vol] Ordered By: Spenser Canchola on 05-19-2022 Basophils (Bld) [#/Vol] 0.0 10*3/uL 0.0-0.2 [facility] Basophils/100 WBC Auto (Bld) Ordered By: Spenser Canchola on 05-19-2022 Basophils/100 WBC (Bld) 0.4 % . [facility] Creatinine and Glomerular fi ltration rate.predicted panel (S/P/Bld)Ordered By: Spenser Canchola on 05-19-2022 Creatinine [Mass/Vol] 0.99 mg/dL 0.44-1.03 [facility] Eosinophils Auto (Bld) [#/Vo l]Ordered By: Spenser Canchola on 05-19-2022 Eosinophils (Bld) [#/Vol] 0.2 10*3/uL 0.0-0.45 [facility] Eosinophils/100 WBC Auto (Bl d)Ordered By: Spenser Canchola on 05-19-2022 Eosinophils/100 WBC (Bld) 2.2 % . [facility] Erythrocyte distribution wid th Auto (RBC) [Ratio]Ordered By: Spenser Canchola on 05-19-2022 Erythrocyte distribution width (RBC) [Ratio] 13.5 % 11.9-15.3 [facility] Estimated glomerular filtrat ion rate (GFR) non- AmericanOrdered By: Spenser Canchola on 05-19-2022 GFR/1.73 sq M.predicted among non-blacks MDRD (S/P/Bld) [Vol rate/Area] 57 mL/Min [facility] Hematocrit Auto (Bld) [Volum e fraction]Ordered By: Spenser Canchola on 05-19-2022 Hematocrit (Bld) [Volume fraction] 36.1 % 34.0-46.4 [facility] Hemoglobin [Mass/volume] in BloodOrdered By: Spenser Canchola on 05-19-2022 Hemoglobin (Bld) [Mass/Vol] 12.0 g/dL 11.8-15.4 [facility] Laboratory - Hematology and Cell countsOrdered By: Spenser Canchola on 05-19-2022 Nucleated RBC/100 WBC (Bld) [Ratio] 0.0 % 0-0.5 [facility] Leukocytes [#/volume] in Blo od by Automated countOrdered By: Spenser Canchola on 05-19-2022 WBC (Bld) [#/Vol] 7.8 10*3/uL 4.5-11.0 [facility] Lymphocytes Auto (Bld) [#/Vo l]Ordered By: Spenser Canchola on 05-19-2022 Lymphocytes (Bld) [#/Vol] 1.9 10*3/uL 1.00-4.8 [facility] Lymphocytes/100 WBC Auto (Bl d)Ordered By: Spenser Canchola on 05-19-2022 Lymphocytes/100 WBC (Bld) 24.8 % . [facility] MCH Auto (RBC) [Entitic mass ]Ordered By: Spenser Canchola on 05-19-2022 MCH (RBC) [Entitic mass] 29.0 pg 24.7-34.3 [facility] MCHC Auto (RBC) [Mass/Vol]Or dered By: Spenser Canchola on 05-19-2022 MCHC (RBC) [Mass/Vol] 33.1 g/dL 32.0-35.0 [facility] MCV Auto (RBC) [Entitic vol] Ordered By: Spenser Canchola on 05-19-2022 MCV (RBC) [Entitic vol] 87.7 fL 80-100 [facility] Monocytes Auto (Bld) [#/Vol] Ordered By: Spenser Canchola on 05-19-2022 Monocytes (Bld) [#/Vol] 0.6 10*3/uL 0.0-0.8 [facility] Monocytes/100 WBC Auto (Bld) Ordered By: Spenser Canchola on 05-19-2022 Monocytes/100 WBC (Bld) 7.3 % . [facility] Neutrophils Auto (Bld) [#/Vo l]Ordered By: Spenser Canchola on 05-19-2022 Neutrophils (Bld) [#/Vol] 5.1 10*3/uL 1.8-7.7 [facility] Neutrophils/100 WBC Auto (Bl d)Ordered By: Spenser Canchola on 05-19-2022 Neutrophils/100 WBC (Bld) 65.3 % . [facility] No Panel InformationOrdered By: Spenser Canchola on 05-19-2022 25-Hydroxy Vitamin D Total 19.7 ng/mL 30-100 [facility] Comment on above: VITAMIN D STATUS 25( [place])VITAMIN D RANGE (ng/mL) Deficient <20 Insufficient 20 to <30Sufficient 30 to 100Reference: Babita MF,Audelia NC, John NÚÑEZ, et al. Evaluation,treatment, and prevention of vitamin D deficiency; an Endocrine Society clinical practice guideline. JCEM. 2010; 96(7):1911-30. Estimated GFR () > 60 mL/Min [facility] Comment on above: GFR estimated refere nce range: According to KDOQI guidelines, <60 ml/min/1.73m2 is sufficient to diagnose a patient with chronic kidney disease. Pharmacy Creatinine Clearance (Chem N/A [facility] Platelet mean volume Auto (B ld) [Entitic vol]Ordered By: Spenser Canchola on 05-19-2022 Platelet mean volume (Bld) [Entitic vol] 7.9 fL 6.3-10.7 [facility] Platelets Auto (Bld) [#/Vol] Ordered By: Spenser Canchola on 05-19-2022 Platelets (Bld) [#/Vol] 316 10*3/uL 150-450 [facility] RBC Auto (Bld) [#/Vol]Ordere d By: Spenser Canchola on 05-19-2022 RBC (Bld) [#/Vol] 4.12 10*6/uL 3.60-5.00 [facility] Serum or plasma anion gap de terminationOrdered By: Spenser Canchola on 05-19-2022 Anion gap [Moles/Vol] 15.4 mmol/L 6.0-15.0 [facility] Serum or plasma calcium jeane urement (mass/volume)Ordered By: Spenser Canchola on 05-19-2022 Calcium [Mass/Vol] 9.5 mg/dL 8.2-10.2 [facility] Serum or plasma chloride thomas surement (moles/volume)Ordered By: Spenser Canchola on 05-19-2022 Chloride [Moles/Vol] 104 mmol/L 95-114 [facility] Serum or plasma glucose jeane urement (mass/volume)Ordered By: Spenser Canchola on 05-19-2022 Glucose [Mass/Vol] 90 mg/dL 70-100 [facility] Comment on above: ADA recommended refe rence rangeRandom Glucose Reference Range is dependent on time and content of last meal. Glucose of more than 200 mg/dL in a nonstressed, ambulatory subject supports the diagnosis of Diabetes Mellitus. Serum or plasma intact parat hyroid hormone measurement (mass/volume)Ordered By: Spenser Canchola on 05-19-2022 Parathyrin.intact [Mass/Vol] 51.6 pg/mL [facility] Serum or plasma potassium me asurement (moles/volume)Ordered By: Spenser Canchola on 05-19-2022 Potassium [Moles/Vol] 4.4 mmol/L 3.5-5.1 [facility] Serum or plasma sodium measu rement (moles/volume)Ordered By: Spenser Canchola on 05-19-2022 Sodium [Moles/Vol] 138 mmol/L 136-146 [facility] Serum or plasma total carbon dioxide measurement (moles/volume)Ordered By: Spenser Canchola on 05-19-2022 CO2 [Moles/Vol] 23.0 mmol/L 22.0-30.0 [facility] Serum or plasma urea nitroge n measurement (mass/volume)Ordered By: Spenser Canchola on 05-19-2022 Urea nitrogen [Mass/Vol] 18 mg/dL 04-09 [facility] TSH DL <= 0.005 mIU/L QnOrde red By: Spenser Canchola on 05-19-2022 TSH Qn 0.74 m[IU]/L 0.45-5.33 [facility] Office Visit (Cardiology)on 05-13-2022 Follow-up visit Diagnoses/Problems [...] are negative for complaint. Scores and Scales [facility] (more content not included)... Normal [facility] Office Visit (Cardiology)on 04-01-2022 Follow-up visit Diagnoses/Problems [...] Weight Tips; Status:Complete - Retrospective Authorization; Done: [id number] Essential hypertension, benign Start: Valsartan 160 MG Oral Tablet (Diovan); TAKE 1 TABLET DAILY SocHx: Never a smoker Tobacco Use Screening; Status:Complete; Done: [id number] Unlinked Stop: Losartan Potassium-HCTZ 100-25 MG Oral [...] of Complete colonoscopy Managed By: Kyara FLORES, Abarham Leary (Gastroenterology) History of Corneal lasik History [...] in stools. (more content not included)... Normal [facility] Tobacco Screening.on 022 Tobacco use status [facility] b) No -[facility] Heart-[place] y 250 DO Work Phone: CBC AUTO DIFFon 03-25-2022 BASO # 0.0 103/ul Normal 0.0-0.1 [facility] Comment on above: Performed By: #### C BC #### [facility] [address] [address] [address] Luh Brown Basophils/100 WBC (Bld) 0.4 % Normal 0.2-2.0 [facility] Comment on above: Performed By: #### C BC #### [facility] [address] [address] [address] Luh Brown EO # 0.2 103/ul Normal 0.0-0.7 [facility] Comment on above: Performed By: #### C BC #### [facility] [address] [address] [address] Luh Brown Eosinophils/100 WBC (Bld) 2.5 % Normal 0.9-7.0 [facility] Comment on above: Performed By: #### C BC #### [facility] [address] [address] [address] Luh Brown Erythrocyte distribution width (RBC) [Ratio] 13.0 % Normal 11.0-15.0 [facility] Comment on above: Performed By: #### C BC #### [facility] [address] [place] [address] Dr. Luh Brown Hematocrit (Bld) [Volume fraction] 32.7 % Critically low 36.0-48.0 [facility] Comment on above: Performed By: #### C BC #### [facility] [address] [place] [address] Dr. Luh Brown Hemoglobin (Bld) [Mass/Vol] 10.8 g/dL Critically low 12.0-16.0 [facility] Comment on above: Performed By: #### C BC #### [facility] [address] [place] [address] Dr. Luh Brown IG # 0.05 10e3/ul Critically high 0.00-0.03 [facility] Comment on above: Performed By: #### C BC #### [facility] [address] [address] [address] Luh Brown IG % 0.6 % Critically high 0.0-0.5 [facility] Comment on above: Performed By: #### C BC #### [facility] [address] [address] [address] Luh Brown LYMPH # 2.0 103/ul Normal 1.2-3.8 [facility] Comment on above: Performed By: #### C BC #### [facility] [address] [place] [address] Dr. Luh Brown Lymphocytes/100 WBC (Bld) 24.0 % Normal 20.5-60.0 [facility] Comment on above: Performed By: #### C BC #### [facility] [address] [place] [address] Dr. Luh Brown MANUAL DIFF REQ NO Normal [facility] Comment on above: Performed By: #### C BC #### [facility] [address] [place] [address] Dr. Luh Brown MCH (RBC) [Entitic mass] 29.3 pg Normal 26.7-34.0 [facility] Comment on above: Performed By: #### C BC #### [facility] [address] [place] [address] Dr. Luh Brown MCHC (RBC) [Mass/Vol] 33.0 g/dL Normal 29.9-35.2 [facility] Comment on above: Performed By: #### C BC #### [facility] [address] [place] [address] Dr. Luh Brown MCV (RBC) [Entitic vol] 88.9 fL Normal 81.0-99.0 [facility] Comment on above: Performed By: #### C BC #### [facility] [address] [place] [address] Dr. Luh Brown MONO # 0.6 103/ul Normal 0.3-0.8 [facility] Comment on above: Performed By: #### C BC #### [facility] [address] [place] [address] Dr. Luh Brown Monocytes/100 WBC (Bld) 7.9 % Normal 1.7-12.0 [facility] Comment on above: Performed By: #### C BC #### [facility] [address] [place] [address] Dr. Luh Brown NEUT # 5.3 103/ul Normal 1.4-6.5 [facility] Comment on above: Performed By: #### C BC #### [facility] [address] [place] [address] Dr. Luh Brown Neutrophils/100 WBC (Bld) 64.6 % Normal 43.0-75.0 [facility] Comment on above: Performed By: #### C BC #### [facility] [address] [place] [address] Dr. Luh Brown Platelet mean volume (Bld) [Entitic vol] 9.2 fL Critically low 9.5-13.5 [facility] Comment on above: Performed By: #### C BC #### [facility] [address] [place] [address] Dr. Luh Brown PLT 291 103/ul Normal 150-450 [facility] Comment on above: Performed By: #### C BC #### [facility] [address] [place] [address] Dr. Luh Brown RBC 3.68 106/ul Critically low 4.20-5.40 [facility] Comment on above: Performed By: #### C BC #### [facility] [address] [place] [address] Dr. Luh Brown WBC 8.1 103/ul Normal 4.0-11.0 [facility] Comment on above: Performed By: #### C BC #### [facility] [address] [place] [address] Dr. Luh Brown PROF CHEM 8 (BAS METB)on Anion gap [Moles/Vol] 14.6 mmol/L Normal [facility] Comment on above: Performed By: #### B MP #### [facility] [address] [place] [address] Dr. Luh Brown Calcium [Mass/Vol] 9.1 mg/dL Normal 8.5-10.1 [facility] Comment on above: Performed By: #### B MP #### [facility] [address] [place] [address] Dr. Luh Brown Chloride [Moles/Vol] 101 mmol/L Normal 98-107 [facility] Comment on above: Performed By: #### B MP #### [facility] [address] [place] [address] Dr. Luh Brown CO2 [Moles/Vol] 27.7 mmol/L Normal 21.0-32.0 [facility] Comment on above: Performed By: #### B MP #### [facility] [address] [address] [address] Luh Brown Creatinine [Mass/Vol] 0.90 mg/dL Normal 0.55-1.02 [facility] Comment on above: Performed By: #### B MP #### [facility] [address] [address] [address] Luh Brown EGFR-AF BERMUDIAN >60 Normal >=60 [facility] Comment on above: Performed By: #### B MP #### [facility] [address] [place] [address] Dr. Luh Brown EGFR-NON AF BERMUDIAN >60 Normal >=60 [facility] Comment on above: Performed By: #### B MP #### [facility] [address] [address] [address] Luh Brown Glucose [Mass/Vol] 121 mg/dL Critically high 74-106 [facility] Comment on above: Performed By: #### B MP #### [facility] [address] [place] [address] Dr. Luh Brown Potassium [Moles/Vol] 4.3 mmol/L Normal 3.5-5.1 [facility] Comment on above: Performed By: #### B MP #### [facility] [address] [address] [address] Luh Brown Sodium [Moles/Vol] 139 mmol/L Normal 136-145 [facility] Comment on above: Performed By: #### B MP #### [facility] [address] [address] [address] Luh Brown Urea nitrogen [Mass/Vol] 18.0 mg/dL Normal 7.0-18.0 [facility] Comment on above: Performed By: #### B MP #### [facility] [address] [place] [address] Dr. Luh Brown Urea nitrogen/Creatinine [Mass ratio] 20.0 mg/mg Normal [facility] Comment on above: Performed By: #### B MP #### [facility] [address] [address] [address] Luh Brown PROTIMEon 03-25-2022 INR Coag (PPP) [Relative time] 0.94 {INR} Normal [facility] Comment on above: Performed By: #### P T #### [facility] [address] [address] [address] Luh Brown INR GUIDELINES SEE BELOW Normal [facility] Comment on above: Result Comment: DELISA RED INR: 2.0 - 3.0 CONDITIONS NOT LISTED BELOW 2.5 - 3.5 FOR PROSTHETIC HEART VALVE REPLACEMENT 2.5 - 3.5 RECURRENT THROMBOSIS Performed By: #### P T #### [facility] [address] [address] [address] Luh Brown PT Coag (PPP) [Time] 10.2 s Normal 9.0-11.6 [facility] Comment on above: Performed By: #### P T #### [facility] [address] [address] [address] Luh Brown CBCon 03-22-2022 HCT Canceled Normal [facility] Comment on above: Order Comment: TEST CBC WAS CANCELLED, 03/22/2022 08:56 NO SPECIMEN RECEIVED IN LAB. Performed By: #### C BC #### [facility] [address] [place] [address] HGB Canceled Normal [facility] Comment on above: Order Comment: TEST CBC WAS CANCELLED, 03/22/2022 08:56 NO SPECIMEN RECEIVED IN LAB. Performed By: #### C BC #### [facility] [address] [place] [address] MCHC Canceled Normal [facility] Comment on above: Order Comment: TEST CBC WAS CANCELLED, 03/22/2022 08:56 NO SPECIMEN RECEIVED IN LAB. Performed By: #### C BC #### [place] [address] [place] [address] MCV Canceled Normal [facility] Comment on above: Order Comment: TEST CBC WAS CANCELLED, 03/22/2022 08:56 NO SPECIMEN RECEIVED IN LAB. Performed By: #### C BC #### [facility] [address] [place] [address] NUCLEATED RBC Canceled Normal [facility] Comment on above: Order Comment: TEST CBC WAS CANCELLED, 03/22/2022 08:56 NO SPECIMEN RECEIVED IN LAB. Performed By: #### C BC #### [facility] [address] [place] [address] PLT Canceled Normal [facility] Comment on above: Order Comment: TEST CBC WAS CANCELLED, 03/22/2022 08:56 NO SPECIMEN RECEIVED IN LAB. Performed By: #### C BC #### [facility] [address] [place] [address] RBC Canceled Normal [facility] Comment on above: Order Comment: TEST CBC WAS CANCELLED, 03/22/2022 08:56 NO SPECIMEN RECEIVED IN LAB. Performed By: #### C BC #### [facility] [address] [place] [address] RDW-CV Canceled Normal [facility] Comment on above: Order Comment: TEST CBC WAS CANCELLED, 03/22/2022 08:56 NO SPECIMEN RECEIVED IN LAB. Performed By: #### C BC #### [facility] [address] [place] [address] WBC Canceled Normal [facility] Comment on above: Order Comment: TEST CBC WAS CANCELLED, 03/22/2022 08:56 NO SPECIMEN RECEIVED IN LAB. Performed By: #### C BC #### [facility] [address] [place] [address] CBCon 03-21-2022 HCT Canceled Normal [facility] Comment on above: Order Comment: TEST CBC WAS CANCELLED, 03/22/2022 08:56 NO SPECIMEN RECEIVED IN LAB. Performed By: #### C BC #### [facility] [address] [place] [address] HGB Canceled Normal [facility] Comment on above: Order Comment: TEST CBC WAS CANCELLED, 03/22/2022 08:56 NO SPECIMEN RECEIVED IN LAB. Performed By: #### C BC #### [facility] [address] [place] [address] MCHC Canceled Normal [facility] Comment on above: Order Comment: TEST CBC WAS CANCELLED, 03/22/2022 08:56 NO SPECIMEN RECEIVED IN LAB. Performed By: #### C BC #### [facility] [address] [place] [address] MCV Canceled Normal [facility] Comment on above: Order Comment: TEST CBC WAS CANCELLED, 03/22/2022 08:56 NO SPECIMEN RECEIVED IN LAB. Performed By: #### C BC #### [facility] [address] [place] [address] NUCLEATED RBC Canceled Normal [facility] Comment on above: Order Comment: TEST CBC WAS CANCELLED, 03/22/2022 08:56 NO SPECIMEN RECEIVED IN LAB. Performed By: #### C BC #### [facility] [address] [place] [address] PLT Canceled Normal [facility] Comment on above: Order Comment: TEST CBC WAS CANCELLED, 03/22/2022 08:56 NO SPECIMEN RECEIVED IN LAB. Performed By: #### C BC #### [facility] [address] [place] [address] RBC Canceled Normal [facility] Comment on above: Order Comment: TEST CBC WAS CANCELLED, 03/22/2022 08:56 NO SPECIMEN RECEIVED IN LAB. Performed By: #### C BC #### [facility] [address] [place] [address] RDW-CV Canceled Normal [facility] Comment on above: Order Comment: TEST CBC WAS CANCELLED, 03/22/2022 08:56 NO SPECIMEN RECEIVED IN LAB. Performed By: #### C BC #### [facility] [address] [place] [address] WBC Canceled Normal [facility] Comment on above: Order Comment: TEST CBC WAS CANCELLED, 03/22/2022 08:56 NO SPECIMEN RECEIVED IN LAB. Performed By: #### C BC #### [place] [address] [place] [address] COAGULATION SCREENon 022 APTT Canceled Normal [facility] Comment on above: Order Comment: TEST COAGULATION SCREEN WAS CANCELLED, 03/21/2022 05:17 Result Comment: THE APTT IS NO LONGER USED FOR MONITORING UNFRACTIONATED HEPARIN THERAPY. FOR MONITORING HEPARIN THERAPY, USE THE HEPARIN ASSAY. Performed By: #### C OAGS #### [facility] [address] [place] [address] PROTHROMBIN TIME Canceled Normal [facility] Comment on above: Order Comment: TEST COAGULATION SCREEN WAS CANCELLED, 03/21/2022 05:17 Performed By: #### C OAGS #### [facility] [address] [place] [address] PT, INR Canceled Normal [facility] Comment on above: Order Comment: TEST COAGULATION SCREEN WAS CANCELLED, 03/21/2022 05:17 Performed By: #### C OAGS #### [facility] [address] [place] [address] MAGNESIUMon 03-21-2022 MAGNESIUM Canceled Normal [facility] Comment on above: Order Comment: TEST MAGNESIUM WAS CANCELLED, 03/21/2022 05:17 Performed By: #### M G #### [facility] [address] [place] [address] RENAL FUNCTION PANELon 03-21 ALBUMIN Canceled Normal [facility] Comment on above: Order Comment: TEST RENAL FUNCTION PANEL WAS CANCELLED, 03/21/2022 05:17 Performed By: #### R ENAL #### [facility] [address] [place] [address] ANION GAP Canceled Normal [facility] Comment on above: Order Comment: TEST RENAL FUNCTION PANEL WAS CANCELLED, 03/21/2022 05:17 Performed By: #### R ENAL #### [facility] [address] [place] [address] BICARBONATE Canceled Normal [facility] Comment on above: Order Comment: TEST RENAL FUNCTION PANEL WAS CANCELLED, 03/21/2022 05:17 Performed By: #### R ENAL #### [facility] [address] [place] [address] CALCIUM Canceled Normal [facility] Comment on above: Order Comment: TEST RENAL FUNCTION PANEL WAS CANCELLED, 03/21/2022 05:17 Performed By: #### R ENAL #### [facility] [address] [place] [address] CHLORIDE Canceled Normal [facility] Comment on above: Order Comment: TEST RENAL FUNCTION PANEL WAS CANCELLED, 03/21/2022 05:17 Performed By: #### R ENAL #### [facility] [address] [place] [address] CREATININE Canceled Normal [facility] Comment on above: Order Comment: TEST RENAL FUNCTION PANEL WAS CANCELLED, 03/21/2022 05:17 Performed By: #### R ENAL #### [facility] [address] [place] [address] eGFR FEMALE Canceled Normal [facility] Comment on above: Order Comment: TEST RENAL FUNCTION PANEL WAS CANCELLED, 03/21/2022 05:17 Result Comment: CALC ULATIONS OF ESTIMATED GFR ARE PERFORMED USING THE 2020 CKD-EPI STUDY REFIT EQUATION WITHOUT THE RACE VARIABLE FOR THE IDMS-TRACEABLE CREATININE METHODS. https://jasn.asnjournals.org/content/early/ASN.46437 57155 Performed By: #### R ENAL #### [facility] [address] [place] [address] eGFR MALE Canceled Normal [facility] Comment on above: Order Comment: TEST RENAL FUNCTION PANEL WAS CANCELLED, 03/21/2022 05:17 Result Comment: CALC ULATIONS OF ESTIMATED GFR ARE PERFORMED USING THE 2020 CKD-EPI STUDY REFIT EQUATION WITHOUT THE RACE VARIABLE FOR THE IDMS-TRACEABLE CREATININE METHODS. https://jasn.asnjournals.org/content/early/ASN.10507 66967 Performed By: #### R ENAL #### [facility] [address] [place] [address] GLUCOSE Canceled Normal [facility] Comment on above: Order Comment: TEST RENAL FUNCTION PANEL WAS CANCELLED, 03/21/2022 05:17 Performed By: #### R ENAL #### [facility] [address] [place] [address] PHOSPHORUS Canceled Normal [facility] Comment on above: Order Comment: TEST RENAL FUNCTION PANEL WAS CANCELLED, 03/21/2022 05:17 Result Comment: The performance characteristics of phosphorus testing in heparinized plasma have been validated by the individual laboratory site where testing is performed. Testing on heparinized plasma is not approved by the FDA; however, such approval is not necessary. Performed By: #### R ENAL #### [place] [address] [place] [address] POTASSIUM Canceled Normal [facility] Comment on above: Order Comment: TEST RENAL FUNCTION PANEL WAS CANCELLED, 03/21/2022 05:17 Performed By: #### R ENAL #### [facility] [address] [place] [address] SODIUM Canceled Normal [facility] Comment on above: Order Comment: TEST RENAL FUNCTION PANEL WAS CANCELLED, 03/21/2022 05:17 Performed By: #### R ENAL #### [facility] [address] [place] [address] UREA NITROGEN Canceled Normal [facility] Comment on above: Order Comment: TEST RENAL FUNCTION PANEL WAS CANCELLED, 03/21/2022 05:17 Performed By: #### R ENAL #### [facility] [address] [place] [address] CBCon 03-20-2022 HCT Canceled Normal [facility] Comment on above: Order Comment: TEST CBC WAS CANCELLED, 03/22/2022 08:56 NO SPECIMEN RECEIVED IN LAB. Performed By: #### C BC #### [facility] [address] [place] [address] HGB Canceled Normal [facility] Comment on above: Order Comment: TEST CBC WAS CANCELLED, 03/22/2022 08:56 NO SPECIMEN RECEIVED IN LAB. Performed By: #### C BC #### [facility] [address] [place] [address] MCHC Canceled Normal [facility] Comment on above: Order Comment: TEST CBC WAS CANCELLED, 03/22/2022 08:56 NO SPECIMEN RECEIVED IN LAB. Performed By: #### C BC #### [facility] [address] [place] [address] MCV Canceled Normal [facility] Comment on above: Order Comment: TEST CBC WAS CANCELLED, 03/22/2022 08:56 NO SPECIMEN RECEIVED IN LAB. Performed By: #### C BC #### [facility] [address] [place] [address] NUCLEATED RBC Canceled Normal [facility] Comment on above: Order Comment: TEST CBC WAS CANCELLED, 03/22/2022 08:56 NO SPECIMEN RECEIVED IN LAB. Performed By: #### C BC #### [facility] [address] [place] [address] PLT Canceled Normal [facility] Comment on above: Order Comment: TEST CBC WAS CANCELLED, 03/22/2022 08:56 NO SPECIMEN RECEIVED IN LAB. Performed By: #### C BC #### [facility] [address] [place] [address] RBC Canceled Normal [facility] Comment on above: Order Comment: TEST CBC WAS CANCELLED, 03/22/2022 08:56 NO SPECIMEN RECEIVED IN LAB. Performed By: #### C BC #### [facility] [address] [place] [address] RDW-CV Canceled Normal [facility] Comment on above: Order Comment: TEST CBC WAS CANCELLED, 03/22/2022 08:56 NO SPECIMEN RECEIVED IN LAB. Performed By: #### C BC #### [facility] [address] [place] [address] WBC Canceled Normal [facility] Comment on above: Order Comment: TEST CBC WAS CANCELLED, 03/22/2022 08:56 NO SPECIMEN RECEIVED IN LAB. Performed By: #### C BC #### [facility] [address] [place] [address] CBC AND DIFFERENTIALon 03-20 % AUTOMATED IMMATURE GRAN 0.8 % Normal 0.0 - 0.9 [facility] Comment on above: Result Comment: Adrienne ture Granulocyte Count (IG) includes promyelocytes, myelocytes and metamyelocytes but does not include bands. Percent differential counts (%) should be interpreted in the context of the absolute cell counts (cells/L). Performed By: #### C OAGS #### [facility] [address] [place] [address] Basophils (Bld) [#/Vol] 0.02 10*3/uL Normal 0.00 - 0.10 [facility] Comment on above: Performed By: #### C OAGS #### [facility] [address] [place] [address] Basophils/100 WBC (Bld) 0.2 % Normal 0.0 - 2.0 [facility] Comment on above: Performed By: #### C OAGS #### [facility] [address] [place] [address] Eosinophils (Bld) [#/Vol] 0.07 10*3/uL Normal 0.00 - 0.70 [facility] Comment on above: Performed By: #### C OAGS #### [facility] [address] [place] [address] Eosinophils/100 WBC (Bld) 0.8 % Normal 0.0 - 6.0 [facility] Comment on above: Performed By: #### C OAGS #### [facility] [address] [place] [address] Erythrocyte distribution width (RBC) [Ratio] 13.4 % Normal 11.5 - 14.5 [facility] Comment on above: Performed By: #### C OAGS #### [facility] [address] [place] [address] Hematocrit (Bld) [Volume fraction] 31.6 % Low 36.0 - 46.0 [facility] Comment on above: Performed By: #### C OAGS #### [facility] [address] [place] [address] Hemoglobin (Bld) [Mass/Vol] 10.4 g/dL Low 12.0 - 16.0 [facility] Comment on above: Performed By: #### C OAGS #### [facility] [address] [place] [address] Lymphocytes (Bld) [#/Vol] 1.30 10*3/uL Normal 1.20 - 4.80 [facility] Comment on above: Performed By: #### C OAGS #### [facility] [address] [place] [address] Lymphocytes/100 WBC (Bld) 15.5 % Normal 13.0 - 44.0 [facility] Comment on above: Performed By: #### C OAGS #### [facility] [address] [place] [address] MCHC (RBC) [Mass/Vol] 32.9 g/dL Normal 32.0 - 36.0 [facility] Comment on above: Performed By: #### C OAGS #### [facility] [address] [place] [address] MCV (RBC) [Entitic vol] 91 fL Normal 80 - 100 [facility] Comment on above: Performed By: #### C OAGS #### [facility] [address] [place] [address] Monocytes (Bld) [#/Vol] 0.71 10*3/uL Normal 0.10 - 1.00 [facility] Comment on above: Performed By: #### C OAGS #### [facility] [address] [place] [address] Monocytes/100 WBC (Bld) 8.5 % Normal 2.0 - 10.0 [facility] Comment on above: Performed By: #### C OAGS #### [facility] [address] [place] [address] Neutrophils (Bld) [#/Vol] 6.21 10*3/uL Normal 1.20 - 7.70 [facility] Comment on above: Performed By: #### C OAGS #### [facility] [address] [place] [address] Neutrophils/100 WBC (Bld) 74.2 % Normal 40.0 - 80.0 [facility] Comment on above: Performed By: #### C OAGS #### [facility] [address] [place] [address] NUCLEATED RBC 0.0 /100 WBC Normal 0.0-0.0 [facility] Comment on above: Performed By: #### C OAGS #### [facility] [address] [place] [address] Platelets (Bld) [#/Vol] 235 10*3/uL Normal 150 - 450 [facility] Comment on above: Performed By: #### C OAGS #### [facility] [address] [place] [address] RBC 3.49 x10E12/L Low 4.00 - 5.20 [facility] Comment on above: Performed By: #### C OAGS #### [facility] [address] [place] [address] WBC (Bld) [#/Vol] 8.4 10*3/uL Normal 4.4 - 11.3 [facility] Comment on above: Performed By: #### C OAGS #### [facility] [address] [place] [address] COAGULATION SCREENon 022 aPTT Coag (Bld) [Time] 17 s Low 26 - 39 [facility] Comment on above: Result Comment: THE APTT IS NO LONGER USED FOR MONITORING UNFRACTIONATED HEPARIN THERAPY. FOR MONITORING HEPARIN THERAPY, USE THE HEPARIN ASSAY. Performed By: #### C OAGS #### [facility] [address] [place] [address] PT Coag (PPP) [Time] 11.4 s Normal 9.8 - 13.4 [facility] Comment on above: Performed By: #### C OAGS #### [facility] [address] [place] [address] PT, INR 1.0 Normal 0.9 - 1.1 [facility] Comment on above: Performed By: #### C OAGS #### [facility] [address] [place] [address] Complete Blood Count + Diffe anali 03-20-2022 Basophils/100 WBC (Bld) 0.2 % 0.0 - 2.0 [facility] [employer] franz 250 DO Work Phone: Erythrocyte distribution width (RBC) [Ratio] 13.4 % See Below [facility] Arpita franz 250 DO Work Phone: Comment on above: Reference Range: 11. 5 - 14.5 Hematocrit (Bld) [Volume fraction] 31.6 % below low threshold See Below [facility] Arpita franz 250 DO Work Phone: Comment on above: Reference Range: 36. 0 - 46.0 Hemoglobin (Bld) [Mass/Vol] 10.4 g/dL below low threshold See Below [facility] Arpita franz 250 DO Work Phone: Comment on above: Reference Range: 12. 0 - 16.0 Lymphocytes/100 WBC (Bld) 15.5 % See Below [facility] Arpita franz 250 DO Work Phone: Comment on above: Reference Range: 13. 0 - 44.0 MCHC (RBC) [Mass/Vol] 32.9 g/dL See Below [facility] Arpita franz 250 DO Work Phone: Comment on above: Reference Range: 32. 0 - 36.0 MCV (RBC) [Entitic vol] 91 fL 80 - 100 [facility] Arpita franz 250 DO Work Phone: Monocytes/100 WBC (Bld) 8.5 % 2.0 - 10.0 [facility] Arpita franz 250 DO Work Phone: Neutrophils/100 WBC (Bld) 74.2 % See Below [facility] Arpita franz 250 DO Work Phone: Comment on above: Reference Range: 40. 0 - 80.0 Platelets (Bld) [#/Vol] 235 10*3/uL 150 - 450 [facility] Arpita franz 250 DO Work Phone: RBC (Bld) [#/Vol] 3.49 {x10E12/L} below low threshold See Below [facility] Arpita franz 250 DO Work Phone: Comment on above: Reference Range: 4.0 0 - 5.20 WBC (Bld) [#/Vol] 8.4 10*3/uL 4.4 - 11.3 [facility] Arpita franz 250 DO Work Phone: Complete Blood Count + Differential 0.02 {x10E9/L} See Below [facility] Arpita Eugene DO Work Phone: Comment on above: Reference Range: 0.0 0 - 0.10 Complete Blood Count + Differential 0.07 {x10E9/L} See Below [facility] Arpita Eugene DO Work Phone: Comment on above: Reference Range: 0.0 0 - 0.70 Complete Blood Count + Differential 0.71 {x10E9/L} See Below [facility] Arpita Eugene DO Work Phone: Comment on above: Reference Range: 0.1 0 - 1.00 Complete Blood Count + Differential 1.30 {x10E9/L} See Below [facility] Arpita Eugene DO Work Phone: Comment on above: Reference Range: 1.2 0 - 4.80 Complete Blood Count + Differential 6.21 {x10E9/L} See Below [facility] Arpita Eugene DO Work Phone: Comment on above: Reference Range: 1.2 0 - 7.70 Complete Blood Count + Differential 0.8 % 0.0 - 0.9 [facility] Arpita Eugene DO Work Phone: Comment on above: Immature Granulocyte Count (IG) includes promyelocytes, myelocytes and metamyelocytes but does not include bands. Percent differential counts (%) should be interpreted in the context of the absolute cell counts (cells/L). Complete Blood Count + Differential 0.0 {/100_WBC} 0.0-0.0 -[facility]ora y 250 DO Work Phone: Daily Progress Note-Joycelyn al Heart/ TAVRon 03-20-2022 Daily Progress Note-Structural [...] overnight. Objective Data: Objective Information: T PRBPMAPSpO2 [id number]/[id number]% Date/Time03/20 12: 13: 13: 13: 13: 8:00 Range(35.9C - 36.6C ) (57 - 85 ) (13 - 31 ) (101 - 186 )/ (34 - 84 ) (54 - 110 ) (91% - 100% ) As of 20-Mar-2022 00:00:00, patient is on 2 L/min of oxygen via room air. Pain reported at 03/20 12:00: 0 = None ---- Intake and Output ----- Mn/Dy/Year TimeIntakeOutputNet Mar 20, 2022 6:00 [id number] Mar 19, 2022 10:00 [id number] The Intake and Output Totals for the last 24 hours are: [facility] [id number] Physical Exam Narrative: Physical Exam: [V] Reviewed [...] LA Area A2C: 22.1 cm2 LA Major Given A4C: 5.7 cm LA Major Given A2C: 5.9 cm LA Volume Index: 32.4 ml/m2 RA VOLUME BY A/L METHO (more content not included)... Normal [facility] Echocardiogramon 03-20-2022 Echocardiography [facility], [address] [place] [address] and TRANSTHORACIC ECHOCARDIOGRAM REPORT Patient Name: VIRGILIO JOHNSON Reading Physician: [id number] Oswaldo Willoughby MD Study Date: 03/20/2022 Referring ABDIAZIZ NASH Physician: MRN/PID: [id number] PCP: Accession/Order#: [id number] [facility] Location: Date of : 1960 Fellow: Gender: F Nurse: Admit Date: 03/19/2022 [employer] Supervisor: David Bowens RDCS Admission Status: Inpatient - Time Additional Staff: Critical Height: 165.10 cm [facility] Weight: 116.58 kg Study Type: Echocardiogram BSA: 2.20 m2 Blood Pressure: 168 /72 mmHg Diagnosis/ICD: Z95.2-Presence of prosthetic heart valve Indication: S/p TAVR Procedure/CPT: Echo Complete w Full Doppler-[id number] Patient History: Pertinent History: HTN. Restless leg [...] LA Area A2C: 22.1 cm2 LA Major Given A4C: 5.7 cm LA Major Given A2C: 5.9 cm LA Volume Index: 32.4 [...] cm2 (2.5-5.5cm2) (more content not included)... Normal [facility] Electrocardiogram 12 Leadon 03-20-2022 Electrocardiogram 12 Lead Ventricular Rate 68 Atrial Rate 68 P-R Interval 228 QRS Duration 92 Q-T Interval 428 QTC Calculation(Bazett) 455 P Given 60 R Given -12 T Given 167 QRS Count 11 Q Onset 223 [...] no longer Present Confirmed by Vinay Wright ([id number]) on 03/23/2022 4:58:30 PM Normal [facility] Laboratory - Coagulationon 0 03-20-2022 aPTT Coag (PPP) [Time] 17 s below low threshold 26 - 39 [facility] [employer] y 250 DO Work Phone: Comment on above: THE APTT IS NO LONGE R USED FOR MONITORING UNFRACTIONATED HEPARIN THERAPY. FOR MONITORING HEPARIN THERAPY, USE THE HEPARIN ASSAY. INR Coag (PPP) [Relative time] 1.0 {INR} 0.9 - 1.1 [facility] 250 DO Work Phone: PT Coag (PPP) [Time] 11.4 s 9.8 - 13.4 [facility] y 250 DO Work Phone: MAGNESIUMon 03-20-2022 Magnesium [Mass/Vol] 1.64 mg/dL Normal 1.60 - 2.40 [facility] Comment on above: Performed By: #### C #### [facility] [address] [place] [address] Magnesium, Serumon 2 Magnesium [Mass/Vol] 1.64 mg/dL See Below [facility] y 250 DO Work Phone: [phone] Comment on above: Reference Range: 1.6 0 - 2.40 No Panel Informationon 03-20 [email or web address]& Date=09-23-2021&Time=02% 3a39%3a36%3a00&TestType= ECG&Site=1&OutputType=PD F&Ext=PDF [facility] y 250 DO Work Phone: [phone] Sinus rhythm with 1s t degree A-V block [facility] 250 DO Work Phone: [phone] Abnormal [facility] 250 DO Work Phone: [phone] 1 [facility] 250 DO Work Phone: [phone] 1 [facility] 250 DO Work Phone: [phone] 1 [facility] 250 DO Work Phone: [phone] 1 [facility] 250 DO Work Phone: [phone] 1 [facility] 250 DO Work Phone: [phone] 1 [facility] 250 DO Work Phone: [phone] 1 [facility] 250 DO Work Phone: [phone] -12 1 [facility] 250 DO Work Phone: [phone] 1 [facility] 250 DO Work Phone: [phone] 1 [facility] 250 DO Work Phone: [phone] 1 [facility] 250 DO Work Phone: [phone] 1 [facility] 250 DO Work Phone: [phone] [facility] 250 DO Work Phone: [phone] [facility] 250 DO Work Phone: Order Reconciliationon 03-20 Order Reconciliation Page 1 Discharge Reconciliation Document Reconciliation Type: Discharge requested on behalf of Sachin Brannon (Resident) done by Sachin Brannon ( (Resident)) Discharge - Reconciliation: 20-Mar-2022 12:37 by: Sachin Brannon ( (Resident)) Discharge - Reset to Incomplete: 20-Mar-2022 15:56 by: Sachin Brannon ( (Resident)) Discharge - Reconciliation: 20-Mar-2022 15:56 by: Sachin Brannon ( (Resident)) Discharge - Reset to Incomplete: 20-Mar-2022 [...] 19-Mar-2022 11:01 meloxicam 15 mg oral tablet 1 [...] a Day (more content not included)... Normal [facility] RENAL FUNCTION PANELon 03-20 Albumin [Mass/Vol] 4.0 g/dL Normal 3.4 - 5.0 [facility] Comment on above: Performed By: #### C BC #### [facility] [address] [place] [address] Anion gap [Moles/Vol] 14 mmol/L Normal 10 - 20 [facility] Comment on above: Performed By: #### C BC #### [place] [address] [place] [address] Calcium [Mass/Vol] 8.8 mg/dL Normal 8.6 - 10.6 [facility] Comment on above: Performed By: #### C BC #### [facility] [address] [place] [address] Chloride [Moles/Vol] 106 mmol/L Normal 98 - 107 [facility] Comment on above: Performed By: #### C BC #### [place] [address] [place] [address] Creatinine [Mass/Vol] 0.98 mg/dL Normal 0.50 - 1.05 [facility] Comment on above: Performed By: #### C BC #### [facility] [address] [place] [address] GFR/1.73 sq M.predicted among non-blacks MDRD (S/P/Bld) [Vol rate/Area] 66 mL/min/{1.73_m2} Normal >90 [facility] Comment on above: Result Comment: CALC ULATIONS OF ESTIMATED GFR ARE PERFORMED USING THE 2020 CKD-EPI STUDY REFIT EQUATION WITHOUT THE RACE VARIABLE FOR THE IDMS-TRACEABLE CREATININE METHODS. https://jasn.asnjournals.org/content/early//ASN.95629 66396 Performed By: #### C BC #### [place] [address] [place] [address] Glucose [Mass/Vol] 127 mg/dL High 74 - 99 [facility] Comment on above: Performed By: #### C BC #### [facility] [address] [place] [address] HCO3 (Bld) [Moles/Vol] 24 mmol/L Normal 21 - 32 [facility] Comment on above: Performed By: #### C BC #### [facility] [address] [place] [address] Phosphate [Mass/Vol] 5.0 mg/dL High 2.5 - 4.9 [facility] Comment on above: Result Comment: The performance characteristics of phosphorus testing in heparinized plasma have been validated by the individual laboratory site where testing is performed. Testing on heparinized plasma is not approved by the FDA; however, such approval is not necessary. Performed By: #### C BC #### [facility] [address] [place] [address] Potassium [Moles/Vol] 4.2 mmol/L Normal 3.5 - 5.3 [facility] Comment on above: Performed By: #### C BC #### [facility] [address] [place] [address] Sodium [Moles/Vol] 140 mmol/L Normal 136 - 145 [facility] Comment on above: Performed By: #### C BC #### [facility] [address] [place] [address] Urea nitrogen [Mass/Vol] 15 mg/dL Normal 6 - 23 [facility] Comment on above: Performed By: #### C BC #### [facility] [address] [place] [address] Radiologyon 03-20-2022 XR Chest Single view Normal [facility] 250 DO Work Phone: Renal Function Panelon 03-20 Albumin BCP dye [Mass/Vol] 4.0 g/dL 3.4 - 5.0 [facility] 250 DO Work Phone: Anion gap [Moles/Vol] 14 mmol/L 10 - 20 [facility] 250 DO Work Phone: Calcium [Mass/Vol] 8.8 mg/dL 8.6 - 10.6 [facility] y 250 DO Work Phone: Chloride [Moles/Vol] 106 mmol/L 98 - 107 [facility] y 250 DO Work Phone: CO2 [Moles/Vol] 24 mmol/L 21 - 32 [facility] 250 DO Work Phone: Creatinine [Mass/Vol] 0.98 mg/dL See Below [employer] 250 DO Work Phone: Comment on above: Reference Range: 0.5 0 - 1.05 Glucose [Mass/Vol] 127 mg/dL above high threshold 74 - 99 [facility] 250 DO Work Phone: Phosphate [Mass/Vol] 5.0 mg/dL above high threshold 2.5 - 4.9 [place] [address] DO Work Phone: Comment on above: The performance missy acteristics of phosphorus testing in heparinized plasma have been validated by the individual laboratory site where testing is performed. Testing on heparinized plasma is not approved by the FDA; however, such approval is not necessary. Potassium [Moles/Vol] 4.2 mmol/L 3.5 - 5.3 [place] [address] DO Work Phone: Sodium [Moles/Vol] 140 mmol/L 136 - 145 [facility] 250 DO Work Phone: Urea nitrogen [Mass/Vol] 15 mg/dL 6 - 23 [place] [address] DO Work Phone: Renal Function Panel 66 {mL/min/1.73m2} >90 [place] [address] DO Work Phone: Comment on above: CALCULATIONS OF JT MATED GFR ARE PERFORMED USING THE 2020 CKD-EPI STUDY REFIT EQUATION WITHOUT THE RACE VARIABLE FOR THE IDMS-TRACEABLE CREATININE METHODS.https://jasn.asnjournals.org/content/early//A SN.4193937816 TH CHEST 1 VIEWon 03-20-2022 CHEST 1 VIEW Patient Name: VIRGILIO JOHNSON STUDY: CHEST 1 VIEW; 03/20/2022 6:56 am INDICATION: s/p TAVR . COMPARISON: Chest radiograph dated 03/19/2022nd CT scan 03/08/22 ACCESSION NUMBER(S): [id number] ORDERING CLINICIAN: ABDIAZIZ NASH FINDINGS: AP radiograph [...] Electronically signed by: RUPERTO CROWELL MD Normal [facility] ACT-LOW RANGEon 03-19-2022 ACT-LOW RANGE 292 SECONDS High 89 - 169 [facility] Comment on above: Result Comment: Note new reference range as of 10/20/2018. Target ACT range will vary based on the patient population, clinical status, and surgical intervention occurring. Performed By: #### A CTLR #### [facility] [address] [place] [address] ACT-LOW RANGE 209 SECONDS High 89 - 169 [facility] Comment on above: Result Comment: Note new reference range as of 10/20/2018. Target ACT range will vary based on the patient population, clinical status, and surgical intervention occurring. Performed By: #### A CTLR #### [facility] [address] [place] [address] Admission Risk Screen - Adul ton 03-19-2022 [...] AlertFor Ebola-like Symptoms: Isolate Patient and Notify Provider/Section Hand For Contact: Notify Provider/Section Hand Advance Directive: Advance Directive/DNRno Advance Directive Information [...] thoughts of harming anyone elseunable to assess [place] Suicide: Risk Screen Not Applicable/Able to Answerable to be screened In the Past Month: Have you wished you were or could go to sleep and not wake upno In the Past Month: Have you had any actual thoughts of killing yourselfno Lifetime: Have you ever done, started to do, or prepared to do anything to end your lifeno [place] Suicide Risknegative Adult Nutrition Screen: Have you [...] Spiritual Screen: Are there any cultural, spiritual, druze practices/values/needs that are important for us to knowunable to assess CAGE: Is this an injured patient at a Trauma Center ([facility]/[place] /[place]): no Vaccinations: Vaccination - Influenza Vaccination Screen: Is it flu season (between and October 15)Yes Screening for identified contraindications to influenza vaccinationpatient already received vaccine this season Vaccination - Pneumonia Vaccination Screen: Patient has received a previous pneumonia vaccine:no/unknown... Immunocompetent persons with underlying chronic conditions or reside in residential care facilitiesnone of these conditions Persons with [...] Mobility (amount/contr (more content not included)... Normal [facility] CBCon 03-19-2022 Erythrocyte distribution width (RBC) [Ratio] 13.6 % Normal 11.5 - 14.5 [facility] Comment on above: Performed By: #### C BC ####[id number] [place] [address] Hematocrit (Bld) [Volume fraction] 31.4 % Low 36.0 - 46.0 [facility] Comment on above: Performed By: #### C BC ####[id number] [place] [address] Hemoglobin (Bld) [Mass/Vol] 10.6 g/dL Low 12.0 - 16.0 [facility] Comment on above: Performed By: #### C BC ####[id number] [place] [address] MCHC (RBC) [Mass/Vol] 33.8 g/dL Normal 32.0 - 36.0 [facility] Comment on above: Performed By: #### C BC ####[id number] [place] [address] MCV (RBC) [Entitic vol] 88 fL Normal 80 - 100 [facility] Comment on above: Performed By: #### C BC ####[id number] [place] [address] NUCLEATED RBC 0.0 /100 WBC Normal 0.0-0.0 [facility] Comment on above: Performed By: #### C BC ####[id number] [place] [address] Platelets (Bld) [#/Vol] 257 10*3/uL Normal 150 - 450 [facility] Comment on above: Performed By: #### C BC ####[id number] [place] [address] RBC 3.56 x10E12/L Low 4.00 - 5.20 [facility] Comment on above: Performed By: #### C BC ####[id number] [place] [address] WBC (Bld) [#/Vol] 10.7 10*3/uL Normal 4.4 - 11.3 [facility] Comment on above: Performed By: #### C BC ####[id number] [place] [address] COAGULATION SCREENon 022 aPTT Coag (Bld) [Time] 28 s Normal 26 - 39 [facility] Comment on above: Result Comment: THE APTT IS NO LONGER USED FOR MONITORING UNFRACTIONATED HEPARIN THERAPY. FOR MONITORING HEPARIN THERAPY, USE THE HEPARIN ASSAY. 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 s/p successful 29 mm evolut FX LVEDP 18 mild PVL No effusion Conclusion Extubation in the CICU after groin recovery followed by 324mg by mouth aspirin once able to safely swallow. Monitor tele Monitor access sites for bleeding SAPT upon discharge TTE tomorrow page structural team for any concerning clinical events. Electronic Signatures: Sharon Martin (Fellow)) (Signed 19-Mar-2022 14:57) Authored: Clinical Event Note Last Updated: 19-Mar-2022 14:57 by Sharon Martin ( (Fellow)) Normal [facility] Echocardiogramon 03-19-2022 Echocardiography [facility], [address] [place] [address] and TRANSTHORACIC ECHOCARDIOGRAM REPORT Patient Name: VIRGILIO JOHNSON Reading Physician: [id number] Tru Reyes MD Study Date: 03/19/2022 Referring ABDIAZIZ NASH Physician: MRN/PID: [id number] PCP: Accession/Order#: [id number] [facility] Location: Date of : 1960 Fellow: Gender: F Nurse: Admit Date: 03/19/2022 [employer] Supervisor: David Bowens RDCS Admission Status: Inpatient - Additional Staff: Routine Height: 172.72 cm CC Report to: [facility] Weight: 114.31 kg Study Type: Echocardiogram BSA: 2.25 m2 Blood Pressure: 162 /55 mmHg Diagnosis/ICD: I35.0-Nonrheumatic aortic (valve) stenosis Indication: TAVR Periprocedure Procedure/CPT: Echo Limited-31904; Color Doppler-12010; Doppler Limited-77363 Patient History: Valve Disorders: Aortic Stenosis. Pertinent [...] 0.34 AoV Dimensionless Index Post TAVR: 0.74 [id number] Tru Reyes MD Electronically si (more content not included)... Normal [facility] Electrocardiogram 12 Leadon 03-19-2022 Electrocardiogram 12 Lead Ventricular Rate 69 Atrial Rate 300 QRS Duration 100 Q-T Interval 388 QTC Calculation(Bazett) 415 P Given 56 R Given -12 T Given 112 QRS Count 11 Q Onset 219 [...] Inferior leads QT has shortened Confirmed by Vinay Wright ([id number]) on 03/23/2022 4:57:26 PM Normal [facility] Electrocardiogram 12 Lead Ventricular Rate 88 Atrial Rate 88 P-R Interval 220 QRS Duration 90 Q-T Interval 434 QTC Calculation(Bazett) 525 R Given -1 T Given -29 QRS Count 14 Q Onset 220 P Onset 110 P Offset 194 T Offset 437 QTC Fredericia 493 Diagnosis Class Abnormal Diagnosis Poor data quality Sinus rhythm with 1st degree A-V block LVH with repolarization abnormality ST elevation consider inferior injury or acute infarct Prolonged QT interval or tu fusion, consider myocardial disease, electrolyte imbalance, or drug effects ACUTE CT / STEMI Abnormal ECG When compared with ECG of 19-MAR-2022 09:48, Significant changes have occurred Confirmed by Vinay Wright ([id number]) on 03/23/2022 4:57:14 PM Normal [facility] Electrocardiogram 12 Lead Ventricular Rate 64 Atrial Rate 64 P-R Interval 212 QRS Duration 108 Q-T Interval 454 QTC Calculation(Bazett) 468 P Given 63 R Given -5 T Given -66 QRS Count 11 Q Onset 210 P Onset 104 P Offset 163 T Offset 437 QTC Fredericia 463 Diagnosis Class Abnormal Diagnosis Sinus rhythm with 1st degree A-V block Voltage criteria for left ventricular hypertrophy Nonspecific T wave abnormality Abnormal ECG When compared with ECG of 08-MAR-2022 10:18, No significant change was found Confirmed by Mundo Emery ([id number]) on 03/24/2022 5:38:44 PM Normal [facility] Laboratory - Coagulationon 0 03-19-2022 aPTT Coag (PPP) [Time] 28 s 26 - 39 [facility] [employer] 250 DO Work Phone: Comment on above: THE APTT IS NO LONGE R USED FOR MONITORING UNFRACTIONATED HEPARIN THERAPY. FOR MONITORING HEPARIN THERAPY, USE THE HEPARIN ASSAY. INR Coag (PPP) [Relative time] 1.0 {INR} 0.9 - 1.1 [facility] [employer] 250 DO Work Phone: PT Coag (PPP) [Time] 11.9 s 9.8 - 13.4 [facility] [employer] 250 DO Work Phone: Laboratory - Hematology and Cell countson 03-19-2022 Erythrocyte distribution width (RBC) [Ratio] 13.6 % See Below [facility] 250 DO Work Phone: Comment on above: Reference Range: 11. 5 - 14.5 Hematocrit (Bld) [Volume fraction] 31.4 % below low threshold See Below [facility] Arpita franz 250 DO Work Phone: Comment on above: Reference Range: 36. 0 - 46.0 Hemoglobin (Bld) [Mass/Vol] 10.6 g/dL below low threshold See Below [facility] Arpita franz 250 DO Work Phone: Comment on above: Reference Range: 12. 0 - 16.0 MCHC (RBC) [Mass/Vol] 33.8 g/dL See Below [facility] 250 DO Work Phone: Comment on above: Reference Range: 32. 0 - 36.0 MCV (RBC) [Entitic vol] 88 fL 80 - 100 [facility] 250 DO Work Phone: Platelets (Bld) [#/Vol] 257 10*3/uL 150 - 450 [facility] 250 DO Work Phone: RBC (Bld) [#/Vol] 3.56 {x10E12/L} below low threshold See Below [facility] Hospital[facility] franz 250 DO Work Phone: Comment on above: Reference Range: 4.0 0 - 5.20 WBC (Bld) [#/Vol] 10.7 10*3/uL 4.4 - 11.3 -[facility] Arpita franz 250 DO Work Phone: MAGNESIUMon 03-19-2022 Magnesium [Mass/Vol] 1.43 mg/dL Low 1.60 - 2.40 [facility] Comment on above: Performed By: #### C OAGS #### [facility] [address] [place] [address] Magnesium, Serumon 2 Magnesium [Mass/Vol] 1.43 mg/dL below low threshold See Below [facility] 250 DO Work Phone: Comment on above: Reference Range: 1.6 0 - 2.40 No Panel Informationon 03-19 0.0 {/100_WBC} 0.0-0.0 [facility]en [facility] [facility] [address] DO Work Phone: [phone] [email or web address]: [email or web address]?RetrieveTestByDateT ld?[email or web address]=[email or web address]& Date=08-26-2021&Time=15% 3a16%3a03%3a00&TestType= ECG&Site=1&OutputType=PD F&Ext=PDF [facility] 250 DO Work Phone: [phone] Normal sinus rhythm [facility] [facility] 250 DO Work Phone: [phone] Abnormal [facility] 250 DO Work Phone: [phone] 1 [facility] 250 DO Work Phone: [phone] 1 [facility] 250 DO Work Phone: [phone] 1 [facility] 250 DO Work Phone: [phone] 1 [facility] 250 DO Work Phone: [phone] 1 [facility] 250 DO Work Phone: [phone] 1 [facility] 250 DO Work Phone: [phone] 1 [facility] 250 DO Work Phone: [phone] 1 [facility] 250 DO Work Phone: [phone] 1 [facility] 250 DO Work Phone: [phone] 1 [facility] 250 DO Work Phone: [phone] 1 [facility] 250 DO Work Phone: [phone] 1 [facility] 250 DO Work Phone: [phone] [facility] 250 DO Work Phone: [phone] 1 [facility] 250 DO Work Phone: [phone] [email or web address]: [email or web address] .[email or web address]?RetrieveTestByDateT ld?[email or web address]& Date=08-26-2021&Time=15% 3a15%3a04%3a00&TestType= ECG&Site=1&OutputType=PD F&Ext=PDF [facility] 250 DO Work Phone: [phone] Poor data quality [facility] 250 DO Work Phone: [phone] Abnormal [facility] [facility] 250 DO Work Phone: [phone] 1 [facility] 250 DO Work Phone: [phone] 1 [facility] 250 DO Work Phone: [phone] 1 [facility] 250 DO Work Phone: [phone] [facility] 250 DO Work Phone: [phone] 1 [facility] 250 DO Work Phone: [phone] 1 [facility] 250 DO Work Phone: [phone] 1 [facility] 250 DO Work Phone: [phone] 1 [facility] 250 DO Work Phone: [phone] 1 [facility] 250 DO Work Phone: [phone] 1 [facility] 250 DO Work Phone: [phone] 1 [facility] 250 DO Work Phone: [phone] [facility] 250 DO Work Phone: [phone] 292 {SECONDS} above high threshold 89 - 169 [facility] DO Work Phone: [phone] Comment on above: Note new reference r sara as of 10/20/2018. Target ACT range will vary based on the patient population, clinical status, and surgical intervention occurring. 209 {SECONDS} above high threshold 89 - 169 [facility] DO Work Phone: Comment on above: Note new reference r sara as of 10/20/2018. Target ACT range will vary based on the patient population, clinical status, and surgical intervention occurring. [facility] [facility] DO Work Phone: [email or web address]: [email or web address] .[email or web address]?RetrieveTestByDateT ld?[email or web address]& Date=08-26-2021&Time=09% 3a48%3a09%3a00&TestType= ECG&Site=1&OutputType=PD F&Ext=PDF [facility] 250 DO Work Phone: Sinus rhythm with 1s t degree A-V block [facility] [facility] 250 DO Work Phone: Abnormal [facility] [facility] 250 DO Work Phone: [phone] 1 [facility] [facility] 250 DO Work Phone: [phone] 1 [facility] 250 DO Work Phone: [phone] 1 [facility] 250 DO Work Phone: [phone] 1 [facility] 250 DO Work Phone: [phone] 1 [facility] 250 DO Work Phone: [phone] 1 [facility] 250 DO Work Phone: [phone] 1 [facility] [facility] 250 DO Work Phone: [phone] 1 [facility] 250 DO Work Phone: [phone] 1 [facility] 250 DO Work Phone: [phone] 1 [facility] 250 DO Work Phone: [phone] 1 [facility] 250 DO Work Phone: [phone] 1 [facility] 250 DO Work Phone: [phone] 1 [facility] 250 DO Work Phone: [phone] [facility] 250 DO Work Phone: Order Reconciliationon 03-19 Order Reconciliation Page 1 Admission Reconciliation Document Reconciliation Type: Admission requested on behalf of Abdiaziz Nash (Advanced Practice Nurse) done by Abdiaziz Nash (DECORATION CHECKER-TRUSS DRIVER HELPER) Admission - Reconciliation: 19-Mar-2022 12:25 by: Abdiaziz Nash (DECORATION CHECKER-TRUSS DRIVER HELPER) Home MedicationsEnteredLast Dose TakenReconciled with current Order Reconciliation Comment/ Additional Information amLODIPine 5 mg oral tablet 1 tab(s) orally once a [id number] 2 8:00 AM Reviewed and Held atorvastatin 10 mg oral tablet 1 tab(s) orally once a mxh42-[id number]-Mar-2022 8:00 PM Atorvastatin Tablet (LIPITOR)DOSE = 10 mg Oral At Bedtimeatorvastatin 10 mg oral tablet continued as the inpatient order Atorvastatin dicyclomine 20 mg oral tablet 1 tab(s) orally 2 times a [id number]-[id number]-Mar-2022 8:00 PM Dicyclomine Tablet (BENTYL)DOSE = 20 mg Oral 2 Times a Day Before Mealsdicyclomine 20 mg oral tablet continued as the inpatient order Dicyclomine gabapentin 100 mg oral capsule 2 cap(s) orally 2 times a sxm45-[id number]-Mar-2022 8:00 PM Gabapentin CapsuleDOSE = 200 mg Oral 2 Times a Day gabapentin 100 mg oral capsule continued as the inpatient order Gabapentin ibuprofen 200 mg oral tablet 1 tab(s) orally 2 times a day, As Needed Reviewed and Held losartan-hydrochlorothia zide 100 mg-25 mg oral tablet 1 tab(s) orally once a [id number]-402 2 8:00 AM Reviewed and Held meloxicam 15 mg oral tablet 1 tab(s) orally once a hax86-[id number]-Ero-476 2 8:00 AM Reviewed and Held rOPINIRole [...] mg OnceRecommended Infusion Time: 1 hour(s) Normal [facility] Patient Profile - Adult v2on 03-19-2022 Patient Profile - Adult v2 Profile: Initial Info: How to be Addressedteresa Spoken Language PreferredEnglish Stated Reason for Admissionuta Wants Family/Rep Notified of Admissionn/a; family present Notify PCPdeferred, unable to answer Informed of Patient Visiting Rightsdeferred Arrived Fromhospital Patient Belongingsnone Medications Brought to Hospitalno General Health: Weight in kg117 kilogram(s) Weight in fly969.9 pound(s) Weight Methodstated Scale Typebed Height in [...] Nonrheumatic aortic (valve) stenosis Electronic Signatures: Akilah Villa) (Signed 19-Mar-2022 18:02) Authored: Initial Info, General Health, RSP Based Care, Substance, Health Mgmt, Relationship/Environ, Additional Information Last Updated: 19-Mar-2022 18:02 by Akilah Villa (TOMY) Normal [facility] RENAL FUNCTION PANELon 03-19 Albumin [Mass/Vol] 3.8 g/dL Normal 3.4 - 5.0 [facility] Comment on above: Performed By: #### R ENAL #### [facility] [address] [place] [address] Anion gap [Moles/Vol] 17 mmol/L Normal 10 - 20 [facility] Comment on above: Performed By: #### R ENAL #### [place] [address] [place] [address] Calcium [Mass/Vol] 8.5 mg/dL Low 8.6 - 10.6 [facility] Comment on above: Performed By: #### R ENAL #### [place] [address] [place] [address] Chloride [Moles/Vol] 105 mmol/L Normal 98 - 107 [facility] Comment on above: Performed By: #### R ENAL #### [place] [address] [place] [address] Creatinine [Mass/Vol] 0.76 mg/dL Normal 0.50 - 1.05 [facility] Comment on above: Performed By: #### R ENAL #### [facility] [address] [place] [address] GFR/1.73 sq M.predicted among non-blacks MDRD (S/P/Bld) [Vol rate/Area] 89 mL/min/{1.73_m2} Normal >90 [facility] Comment on above: Result Comment: CALC ULATIONS OF ESTIMATED GFR ARE PERFORMED USING THE 2020 CKD-EPI STUDY REFIT EQUATION WITHOUT THE RACE VARIABLE FOR THE IDMS-TRACEABLE CREATININE METHODS. https://jasn.asnjournals.org/content/early//ASN.30172 68721 Performed By: #### R ENAL #### [facility] [address] [place] [address] Glucose [Mass/Vol] 112 mg/dL High 74 - 99 [facility] Comment on above: Performed By: #### R ENAL #### [facility] [address] [place] [address] HCO3 (Bld) [Moles/Vol] 21 mmol/L Normal 21 - 32 [facility] Comment on above: Performed By: #### R ENAL #### [facility] [address] [place] [address] Phosphate [Mass/Vol] 4.3 mg/dL Normal 2.5 - 4.9 [facility] Comment on above: Result Comment: The performance characteristics of phosphorus testing in heparinized plasma have been validated by the individual laboratory site where testing is performed. Testing on heparinized plasma is not approved by the FDA; however, such approval is not necessary. Performed By: #### R ENAL #### [facility] [address] [place] [address] Potassium [Moles/Vol] 3.5 mmol/L Normal 3.5 - 5.3 [facility] Comment on above: Performed By: #### R ENAL #### [facility] [address] [place] [address] Sodium [Moles/Vol] 139 mmol/L Normal 136 - 145 [facility] Comment on above: Performed By: #### R ENAL #### [facility] [address] [place] [address] Urea nitrogen [Mass/Vol] 14 mg/dL Normal 6 - 23 [facility] Comment on above: Performed By: #### R ENAL #### [facility] [address] [place] [address] Radiologyon 03-19-2022 XR Chest Single view Normal [facility] y 250 DO Work Phone: Renal Function Panelon 03-19 Albumin BCP dye [Mass/Vol] 3.8 g/dL 3.4 - 5.0 [facility] y 250 DO Work Phone: Anion gap [Moles/Vol] 17 mmol/L 10 - 20 [facility] y 250 DO Work Phone: Calcium [Mass/Vol] 8.5 mg/dL below low threshold 8.6 - 10.6 [facility] y 250 DO Work Phone: Chloride [Moles/Vol] 105 mmol/L 98 - 107 [facility] y 250 DO Work Phone: CO2 [Moles/Vol] 21 mmol/L 21 - 32 [facility] y 250 DO Work Phone: Creatinine [Mass/Vol] 0.76 mg/dL [facility] Work Phone: Comment on above: Reference Range: 0.5 0 - 1.05 Glucose [Mass/Vol] 112 mg/dL above high threshold 74 - 99 [facility] Work Phone: Phosphate [Mass/Vol] 4.3 mg/dL 2.5 - 4.9 [facility] Work Phone: Comment on above: The performance missy acteristics of phosphorus testing in heparinized plasma have been validated by the individual laboratory site where testing is performed. Testing on heparinized plasma is not approved by the FDA; however, such approval is not necessary. Potassium [Moles/Vol] 3.5 mmol/L 3.5 - 5.3 [place] [address] DO Work Phone: Sodium [Moles/Vol] 139 mmol/L 136 - 145 [facility] Work Phone: Urea nitrogen [Mass/Vol] 14 mg/dL 6 - 23 [place] [address] DO Work Phone: Renal Function Panel 89 {mL/min/1.73m2} >90 [place] [address] DO Work Phone: Comment on above: CALCULATIONS OF JT MATED GFR ARE PERFORMED USING THE 2020 CKD-EPI STUDY REFIT EQUATION WITHOUT THE RACE VARIABLE FOR THE IDMS-TRACEABLE CREATININE METHODS.https://jasn.asnjournals.org/content//A SN.1487049060 TAVRon 03-19-2022 TAVR [facility], Architectural Representative, [address] [place] [address] Cardiovascular Catheterization Report Patient Name: VIRGILIO Conroy Performing Physician: [id number] Roxann JOHNSON Study Date: 03/19/2022 Verifying Physician: [id number] Roxann Winchester MD MRN/PID: [id number] [employer] Reporter/Co-scrub: Accession/Order#: [id number] Fellow: [id number] Sharon Martin MD Date of : 1960 Fellow: [id number] Wiliam Jeffries MD Gender: F Referring Physician: JOSE JORDAN Admit Date: Referring Physician: zohra Surgeon: Beena FLORES Referring Physician: [id number] Josep Perdomo MD Study: TAVR Additional Study: [...] deployment of 2 Proglides. A 14 F Aurora Sheath was inserted and sutured. The left femoral artery was accessed percutaneously and a 6 Eritrean contralateral sheath was placed. A 7 Eritrean temporary pacemaker was inserted through the right [...] + -+ + Keily Moon RN PROC 1 + -+ + Eugenie Haynes RT PROC SOCIAL SERVICE COORDINATOR 1 + -+ + Negra Cruz RT PROC SOCIAL SERVICE COORDINATOR 2 + -+ + Wiliam Jeffries MD [...] Used: + (more content not included)... Normal [facility] TH CHEST 1 VIEWon 03-19-2022 TH CHEST 1 VIEW Patient Name: VIRGILIO JOHNSON STUDY: CHEST 1 VIEW; 03/19/2022 4:31 pm INDICATION: s/p TAVR . COMPARISON: CT 03/08/2022. ACCESSION NUMBER(S): [id number] ORDERING CLINICIAN: ABDIAZIZ NASH FINDINGS: AP radiograph [...] as stated. This study was interpreted at [facility], [place], [place]. Electronically signed by: Julienne COOK MD Normal [facility] US THYROIDon 03-18-2022 US THYROID EXAMINATION: US [...] follow-up ultrasound evaluation in 3-4 months. The [employer] TI-RADS committee's white paper recommendations for thyroid lesions classified as TR5 (highly suspicious) are listed below: > 0.5 cm. Annual ultrasound follow-up for up to 5 years. > 1.0 cm. FNA. J. Am Laura Radiol 2017;14:587-595. Electronically authenticated by: YULIA AUGILA Date: 2022-03-18 10:01 Normal [facility] CBC AUTO DIFFon 03-12-2022 BASO # 0.0 103/ul Normal 0.0-0.1 [facility] Comment on above: Performed By: #### C BC #### [facility] [address] [place] [address] Dr. Luh Brown Basophils/100 WBC (Bld) 0.3 % Normal 0.2-2.0 [facility] Comment on above: Performed By: #### C BC #### [facility] [address] [place] [address] [address] Luh Brown EO # 0.1 103/ul Normal 0.0-0.7 [facility] Comment on above: Performed By: #### C BC #### [facility] [address] [place] [address] Dr. Luh Brown Eosinophils/100 WBC (Bld) 2.1 % Normal 0.9-7.0 [facility] Comment on above: Performed By: #### C BC #### [facility] [address] [place] [address] [address] Luh Brown Erythrocyte distribution width (RBC) [Ratio] 13.3 % Normal 11.0-15.0 [facility] Comment on above: Performed By: #### C BC #### [facility] [address] [place] [address] Dr. Luh Brown Hematocrit (Bld) [Volume fraction] 34.3 % Critically low 36.0-48.0 [facility] Comment on above: Performed By: #### C BC #### [facility] [address] [place] [address] Dr. Luh Brown Hemoglobin (Bld) [Mass/Vol] 11.3 g/dL Critically low 12.0-16.0 [facility] Comment on above: Performed By: #### C BC #### [facility] [address] [place] [address] Dr. Luh Brown IG # 0.03 10e3/ul Normal 0.00-0.03 [facility] Comment on above: Performed By: #### C BC #### [facility] [address] [place] [address] Dr. Luh Brown IG % 0.5 % Normal 0.0-0.5 [facility] Comment on above: Performed By: #### C BC #### [facility] [address] [place] [address] Dr. Luh Brown LYMPH # 1.6 103/ul Normal 1.2-3.8 [facility] Comment on above: Performed By: #### C BC #### [facility] [address] [place] [address] Dr. Luh Brown Lymphocytes/100 WBC (Bld) 24.0 % Normal 20.5-60.0 [facility] Comment on above: Performed By: #### C BC #### [facility] [address] [place] [address] Dr. Luh Brown MANUAL DIFF REQ NO Normal [facility] Comment on above: Performed By: #### C BC #### [facility] [address] [place] [address] Dr. Luh Brown MCH (RBC) [Entitic mass] 29.3 pg Normal 26.7-34.0 [facility] Comment on above: Performed By: #### C BC #### [facility] [address] [place] [address] Dr. Luh Brown MCHC (RBC) [Mass/Vol] 32.9 g/dL Normal 29.9-35.2 [facility] Comment on above: Performed By: #### C BC #### [facility] [id number] Luh Brown MCV (RBC) [Entitic vol] 88.9 fL Normal 81.0-99.0 [facility] Comment on above: Performed By: #### C BC #### [facility] [address] [address] [address] Luh Brown MONO # 0.6 103/ul Normal 0.3-0.8 [facility] Comment on above: Performed By: #### C BC #### [facility] [address] [place] [address] [address] Luh Brown Monocytes/100 WBC (Bld) 9.4 % Normal 1.7-12.0 [facility] Comment on above: Performed By: #### C BC #### [facility] [address] [place] [address] Dr. Luh Brown NEUT # 4.2 103/ul Normal 1.4-6.5 [facility] Comment on above: Performed By: #### C BC #### [facility] [address] [place] [address] Dr. Luh Brown Neutrophils/100 WBC (Bld) 63.7 % Normal 43.0-75.0 [facility] Comment on above: Performed By: #### C BC #### [facility] [address] [place] [address] Dr. Luh Brown Platelet mean volume (Bld) [Entitic vol] 8.9 fL Critically low 9.5-13.5 [facility] Comment on above: Performed By: #### C BC #### [facility] [address] [place] [address] Dr. Luh Brown PLT 247 103/ul Normal 150-450 [facility] Comment on above: Performed By: #### C BC #### [facility] [address] [place] [address] Dr. Luh Brown RBC 3.86 106/ul Critically low 4.20-5.40 [facility] Comment on above: Performed By: #### C BC #### [facility] [address] [place] [address] Dr. Luh Brown WBC 6.6 103/ul Normal 4.0-11.0 [facility] Comment on above: Performed By: #### C BC #### [facility] [address] [address] [address] Luh Brown PROTIMEon 03-12-2022 INR Coag (PPP) [Relative time] 0.94 {INR} Normal [facility] Comment on above: Performed By: #### P T #### [facility] [address] [address] [address] Luh Brown INR GUIDELINES SEE BELOW Normal [facility] Comment on above: Result Comment: DELISA RED INR: 2.0 - 3.0 CONDITIONS NOT LISTED BELOW 2.5 - 3.5 FOR PROSTHETIC HEART VALVE REPLACEMENT 2.5 - 3.5 RECURRENT THROMBOSIS Performed By: #### P T #### [facility] [address] [address] [address] Luh Brown PT Coag (PPP) [Time] 10.2 s Normal 9.0-11.6 [facility] Comment on above: Performed By: #### P T #### [facility] [address] [address] [address] TAVR Full Contrast CH/ABD /Pelvison 03-08-2022 CT TAVR Full Contrast CH/ABD/Pelvis FINAL REPORT Interpreted by: RUPERTO CROWELL MD and SOULEYMANE DESIR, , DO 03/08/22 14:35 Patient Name: VIRGILIO JOHNSON STUDY: CT TAVR FULL CONTRAST CHEST/ABD/PELVIS; 03/08/2022 12:30 pm INDICATION: KELLEY I35.0: Aortic stenosis. Same scott Normal -Cardiology -[facility] [address] [place] Work Phone: No Panel Informationon 03-08 [email or web address] [email or web address]: [email or web address]/[email or web address] .[email or web address]?RetrieveTestByDateT ld?[id number]& Date=08-03-2022&Time=10% 3a18%3a34%3a00&TestType= ECG&Site=1&OutputType=PD F&Ext=PDF [facility] [facility] [address] [place] Work Phone: Normal sinus rhythm [facility] [address] [place] Work Phone: Abnormal [facility] [address] [place] Work Phone: [phone] [facility] [address] [place] Work Phone: [phone] [facility] [address] [place] Work Phone: [phone] [facility] 205 [place] Work Phone: 124 1 [facility] [address] [place] Work Phone: 220 1 [facility] [address] [place] Work Phone: 12 1 [facility] [address] [place] Work Phone: 78 1 [facility] [address] [place] Work Phone: 2 1 [facility] [address] [place] Work Phone: 60 1 [facility] [address] [place] Work Phone: [phone] [facility] [address] [place] Work Phone: [phone] 1 [facility] [address] [place] Work Phone: 96 1 [facility] [address] [place] Work Phone: 192 1 [facility] [address] [place] Work Phone: 71 1 [facility] [address] [place] Work Phone: Tobacco Screening.on 022 Fall risk assessment a) No falls within the last year [facility] [address] [place] Work Phone: Tobacco use status [facility] b) No [facility] [address] [place] [place] Work Phone: Creatinine and Glomerular fi ltration rate.predicted panel (S/P/Bld)Ordered By: Jose Jordan on 03-02-2022 Creatinine [Mass/Vol] 0.97 mg/dL 0.44-1.03 [facility] Estimated glomerular filtrat ion rate (GFR) non- AmericanOrdered By: Jose Jordan on 03-02-2022 GFR/1.73 sq M.predicted among non-blacks MDRD (S/P/Bld) [Vol rate/Area] 59 mL/Min [facility] No Panel InformationOrdered By: Jose Jordan on 03-02-2022 Estimated GFR () > 60 mL/Min [facility] Comment on above: GFR estimated refere nce range: According to KDOQI guidelines, <60 ml/min/1.73m2 is sufficient to diagnose a patient with chronic kidney disease. Pharmacy Creatinine Clearance (Chem N/A [facility] Serum or plasma calcium jeane urement (mass/volume)Ordered By: Jose Jordan on 03-02-2022 Calcium [Mass/Vol] 9.2 mg/dL 8.2-10.2 [facility] Serum or plasma chloride thomas surement (moles/volume)Ordered By: Jose Jordan on 03-02-2022 Chloride [Moles/Vol] 100 mmol/L 95-114 [facility] Serum or plasma glucose jeane urement (mass/volume)Ordered By: Jose Jordan on 03-02-2022 Glucose [Mass/Vol] 114 mg/dL 70-100 [facility] Comment on above: ADA recommended refe rence [...] on 03-02-2022 Potassium [Moles/Vol] 4.5 mmol/L 3.5-5.1 [facility] Serum or plasma sodium measu rement (moles/volume)Ordered By: Jose Jordan on 03-02-2022 Sodium [Moles/Vol] 136 mmol/L 136-146 [facility] Serum or plasma total carbon dioxide measurement (moles/volume)Ordered By: Jose Jordan on 03-02-2022 CO2 [Moles/Vol] 26.7 mmol/L 22.0-30.0 [facility] Serum or plasma urea nitroge n measurement (mass/volume)Ordered By: Jose Jordan on 03-02-2022 Urea nitrogen [Mass/Vol] 22 mg/dL 9-23 [facility] SARS-CoV-2 (COVID-19) RNA NA A+probe Ql (Resp)on 02-22-2022 SARS-CoV-2 (COVID-19) RNA ISIDORO+probe Ql (Unsp spec) Positive [facility] Other No Panel Informationon 02-02 [facility] y [address] DO Work Phone: Activated partial thrombopla stin time (aPTT) in platelet poor plasma by coagulation aOrdered By: Josep Perdomo on 01-29-2022 aPTT Coag (PPP) [Time] 29.5 s 25.1-36.5 [facility] Basophils Auto (Bld) [#/Vol] Ordered By: Josep Perdomo on 01-29-2022 Basophils (Bld) [#/Vol] 0.0 10*3/uL 0.0-0.2 [facility] Basophils/100 WBC Auto (Bld) Ordered By: Josep Perdomo on 01-29-2022 Basophils/100 WBC (Bld) 0.3 % . [facility] Blood hemoglobin measurement (mass/volume)Ordered By: Josep Perdomo on 01-29-2022 Hemoglobin (Bld) [Mass/Vol] 11.5 g/dL 11.8-15.4 [facility] Blood leukocytes automated c ount (number/volume)Ordered By: Josep Perdomo on 01-29-2022 WBC (Bld) [#/Vol] 6.6 10*3/uL 4.5-11.0 [facility] COVID-19 SOFIAOrdered By: Ramses Perdomo on 01-29-2022 SARS-CoV+SARS-CoV-2 (COVID-19) Ag IA.rapid Ql (Resp) Negative Negative [facility] Comment on above: This is a duplicate Kimberlee SARS Antigen (WILBERT) result to be used for statistical tracking purpose only. Cholesterol [Mass/volume] in Serum or PlasmaOrdered By: Josep Perdomo on 01-29-2022 Cholesterol [Mass/Vol] 163 mg/dL 140-200 [facility] Comment on above: Chol less than 200 m g/dl low risk Chol 201-239 mg/dl borderline risk Chol 240 mg/dl and greater high risk Cholesterol in LDL Calc [Mas s/Vol]Ordered By: Josep Perdomo on 01-29-2022 Cholesterol in LDL [Mass/Vol] 84 mg/dL 0-100 [facility] Comment on above: LDL ATP III CLASSIFI CATION LDL less than 100 mg/dL Optimal LDL 100-129 mg/dL Near or above optimal LDL 130-159 mg/dL Borderline high LDL 160-189 mg/dL High LDL greater than 189 mg/dL Very high Cholesterol in VLDL Calc [Ma ss/Vol]Ordered By: Josep Perdomo on 01-29-2022 Cholesterol in VLDL [Mass/Vol] 18 mg/dL [facility] Creatinine and Glomerular fi ltration rate.predicted panel (S/P/Bld)Ordered By: Josep Perdomo on 01-29-2022 Creatinine [Mass/Vol] 1.03 mg/dL 0.44-1.03 [facility] Eosinophils Auto (Bld) [#/Vo l]Ordered By: Josep Perdomo on 01-29-2022 Eosinophils (Bld) [#/Vol] 0.2 10*3/uL 0.0-0.45 [facility] Eosinophils/100 WBC Auto (Bl d)Ordered By: Josep Perdomo on 01-29-2022 Eosinophils/100 WBC (Bld) 2.4 % . [facility] Erythrocyte distribution wid th Auto (RBC) [Ratio]Ordered By: Josep Perdomo on 01-29-2022 Erythrocyte distribution width (RBC) [Ratio] 13.8 % 11.9-15.3 [facility] Estimated glomerular filtrat ion rate (GFR) non- AmericanOrdered By: Josep Perdomo on 01-29-2022 GFR/1.73 sq M.predicted among non-blacks MDRD (S/P/Bld) [Vol rate/Area] 55 mL/Min [facility] Hematocrit Auto (Bld) [Volum e fraction]Ordered By: Josep Perdomo on 01-29-2022 Hematocrit (Bld) [Volume fraction] 33.8 % 34.0-46.4 [facility] Laboratory - Chemistry and C hemistry - challengeon 01-29-2022 Cholesterol [Mass/Vol] 163\S\163 Normal 140-200 [facility] DO Work Phone: Comment on above: Chol less than 200 m g/dl low risk Chol 201-239 mg/dl borderline risk Chol 240 mg/dl and greater high risk Cholesterol in LDL [Mass/Vol] 84\S\84 Normal 0-100 [facility] DO Work Phone: Comment on above: LDL ATP III CLASSIFI CATION LDL less than 100 mg/dL Optimal LDL 100-129 mg/dL Near or above optimal LDL 130-159 mg/dL Borderline high LDL 160-189 mg/dL High LDL greater than 189 mg/dL Very high Laboratory - CoagulationOrde red By: Josep Perdomo on 01-29-2022 PT Coag (PPP) [Time] 10.3 s 9.0-12.9 [facility] Laboratory - Hematology and Cell countsOrdered By: Josep Perdomo on 01-29-2022 Nucleated RBC/100 WBC (Bld) [Ratio] 0.0 % 0-0.5 [facility] Laboratory - Microbiology an d Antimicrobial susceptibilityon 01-29-2022 SARS-CoV-2 (COVID-19) RNA ISIDORO+probe Ql (Unsp spec) [facility] 250 DO Work Phone: Lymphocytes Auto (Bld) [#/Vo l]Ordered By: Josep Perdomo on 01-29-2022 Lymphocytes (Bld) [#/Vol] 1.8 10*3/uL 1.00-4.8 [facility] Lymphocytes/100 WBC Auto (Bl d)Ordered By: Josep Perdomo on 01-29-2022 Lymphocytes/100 WBC (Bld) 27.5 % . [facility] MCH Auto (RBC) [Entitic mass ]Ordered By: Josep Perdomo on 01-29-2022 MCH (RBC) [Entitic mass] 29.8 pg 24.7-34.3 [facility] MCHC Auto (RBC) [Mass/Vol]Or dered By: Josep Perdomo on 01-29-2022 MCHC (RBC) [Mass/Vol] 33.9 g/dL 32.0-35.0 [facility] MCV Auto (RBC) [Entitic vol] Ordered By: Josep Perdomo on 01-29-2022 MCV (RBC) [Entitic vol] 88.0 fL 80-100 [facility] Monocytes Auto (Bld) [#/Vol] Ordered By: Josep Perdomo on 01-29-2022 Monocytes (Bld) [#/Vol] 0.5 10*3/uL 0.0-0.8 [facility] Monocytes/100 WBC Auto (Bld) Ordered By: Josep Perdomo on 01-29-2022 Monocytes/100 WBC (Bld) 8.2 % . [facility] Neutrophils Auto (Bld) [#/Vo l]Ordered By: Josep Perdomo on 01-29-2022 Neutrophils (Bld) [#/Vol] 4.1 10*3/uL 1.8-7.7 [facility] Neutrophils/100 WBC Auto (Bl d)Ordered By: Josep Perdomo on 01-29-2022 Neutrophils/100 WBC (Bld) 61.6 % . [facility] No Panel Informationon 01-29 Negative Normal Negative [facility] 250 DO Work Phone: [phone] Comment on above: This is a duplicate Kimberlee SARS Antigen (WILBERT) result to be used for statistical tracking purpose only.PERFORMED BY:[facility] [place], [place] [id number] MEDICAL DIRECTORDORA ALLISON M.D. 61.6\S\61.6 Normal . [facility] 250 DO Work Phone: [phone] 7.6\S\7.6 Normal 6.3-10.7 [facility] 250 DO Work Phone: [phone] 281\S\281 Normal 150-450 [facility] 250 DO Work Phone: [phone] 13.8\S\13.8 Normal 11.9-15.3 [facility] 250 DO Work Phone: [phone] 33.9\S\33.9 Normal 32.0-35.0 [facility] 250 DO Work Phone: [phone] 29.8\S\29.8 Normal 24.7-34.3 [facility] 250 DO Work Phone: [phone] 4.1\S\4.1 Normal 1.8-7.7 [facility] 250 DO Work Phone: [phone] 0.0\S\0.0 Normal 0.0-0.2 [facility] 250 DO Work Phone: [phone] Comment on above: PERFORMED BY:[facility] [place], [place] [phone] MEDICAL DIRECTORDORA ALLISON M.D. 0.3\S\0.3 Normal . [facility] 250 DO Work Phone: 2.4\S\2.4 Normal . [facility] 250 DO Work Phone: 8.2\S\8.2 Normal . [facility] 250 DO Work Phone: 27.5\S\27.5 Normal . [facility] 250 DO Work Phone: [phone] 0.2\S\0.2 Normal 0.0-0.45 [facility] 250 DO Work Phone: 0.5\S\0.5 Normal 0.0-0.8 [facility] DO Work Phone: 1.8\S\1.8 Normal 1.00-4.8 [facility] 250 DO Work Phone: 88.0\S\88.0 Normal 80-100 [facility] DO Work Phone: 33.8\S\33.8 below low threshold 34.0-46.4 [facility] DO Work Phone: 11.5\S\11.5 below low threshold 11.8-15.4 [facility] DO Work Phone: 3.84\S\3.84 Normal 3.60-5.00 [facility] 250 DO Work Phone: 6.6\S\6.6 Normal 3.8-11.6 [facility] 250 DO Work Phone: 29.5\S\29.5 Normal 25.1-36.5 [facility] 250 DO Work Phone: Comment on above: PERFORMED BY:[facility] [place], [place] [id number] MEDICAL DIRECTORDORA ALLISON M.D. 0.9\S\0.9 Normal [facility] DO Work Phone: Comment on above: INR [...] valves: 3 - 4.5 10.3\S\10.3 Normal 9.0-12.9 [facility] DO Work Phone: 21.7\S\21.7 below low threshold 22.0-30.0 [facility] DO Work Phone: [phone] 105\S\105 Normal 95-114 [facility] DO Work Phone: 3.7\S\3.7 Normal 3.5-5.1 [facility] DO Work Phone: [phone] 137\S\137 Normal 136-146 [facility] DO Work Phone: [phone] 27\S\27 above high threshold 9-23 [facility] DO Work Phone: > 60 Normal [facility] DO Work Phone: Comment on above: GFR estimated refere nce range: According to KDOQI guidelines, <60 ml/min/1.73m2 is sufficient to diagnose a patient with chronic kidney disease. 55\S\55 Normal [facility] DO Work Phone: 1.03\S\1.03 Normal 0.44-1.03 [facility] DO Work Phone: 2.7\S\2.7 Normal <5.0 [facility] DO Work Phone: Comment on above: PERFORMED BY:[facility] [place]ANTOSPacoKIKINOR[place], [place] [phone] MEDICAL DIRECTORDORA ALLISON M.D. 18\S\18 Normal [facility] DO Work Phone: 92\S\92 Normal 35-149 [facility] y 250 DO Work Phone: Comment on above: TRIG ATP III CLASSIF ICATION TRIG less than 150 mg/dL Normal TRIG 150-199 mg/dL Borderline high TRIG 200-500 mg/dL High TRIG greater than 500 mg/dL Very high Standard traceable to the Center for Disease Conrtrol and Prevention (CDC) test method. 61\S\61 Normal 35-85 [facility] Work Phone: Comment on above: HDL CHOL ATP-III CLA SSIFICATION Cardiovascular Risk HDL > or equal to 60 mg/dL LOW HDL < 40 mg/dL HIGH No Panel InformationOrdered By: Josep Perdomo on 01-29-2022 Estimated GFR () > 60 mL/Min [facility] Comment on above: GFR estimated refere nce range: According to KDOQI guidelines, <60 ml/min/1.73m2 is sufficient to diagnose a patient with chronic kidney disease. Pharmacy Creatinine Clearance (Chem N/A [facility] SARS Antigen (LFIA) [facility] Platelet mean volume Auto (B ld) [Entitic vol]Ordered By: Josep Perdomo on 01-29-2022 Platelet mean volume (Bld) [Entitic vol] 7.6 fL 6.3-10.7 [facility] Platelet poor plasma interna tional normalized ratio (INR) by coagulation assay (relatOrdered By: Josep Perdomo on 01-29-2022 INR Coag (PPP) [Relative time] 0.9 {INR} [facility] Comment on above: INR Therapeutic [...] 01-29-2022 Platelets (Bld) [#/Vol] 281 10*3/uL 150-450 [facility] RBC Auto (Bld) [#/Vol]Ordere d By: Josep Perdomo on 01-29-2022 RBC (Bld) [#/Vol] 3.84 10*6/uL 3.60-5.00 [facility] Serum or plasma chloride thomas surement (moles/volume)Ordered By: Josep Perdomo on 01-29-2022 Chloride [Moles/Vol] 105 mmol/L 95-114 [facility] Serum or plasma high density lipoprotein (HDL) cholesterol measurementOrdered By: Josep Perdomo on 01-29-2022 Cholesterol in HDL [Mass/Vol] 61 mg/dL 35-85 [facility] Comment on above: HDL CHOL ATP-III CLA SSIFICATION Cardiovascular Risk HDL > or equal to 60 mg/dL LOW HDL < 40 mg/dL HIGH Serum or plasma potassium me asurement (moles/volume)Ordered By: Josep Perdomo on 01-29-2022 Potassium [Moles/Vol] 3.7 mmol/L 3.5-5.1 [facility] Serum or plasma sodium measu rement (moles/volume)Ordered By: Josep Perdomo on 01-29-2022 Sodium [Moles/Vol] 137 mmol/L 136-146 [facility] Serum or plasma total carbon dioxide measurement (moles/volume)Ordered By: Josep Perdomo on 01-29-2022 CO2 [Moles/Vol] 21.7 mmol/L 22.0-30.0 [facility] Serum or plasma total choles terol/high density lipoprotein (HDL) cholesterol mass ratOrdered By: Josep Perdomo on 01-29-2022 Cholesterol.total/Chol esterol in HDL [Mass ratio] 2.7 {ratio} <5.0 [facility] Serum or plasma urea nitroge n measurement (mass/volume)Ordered By: Josep Perdomo on 01-29-2022 Urea nitrogen [Mass/Vol] 27 mg/dL 9-23 [facility] Triglyceride [Mass/volume] i n Serum or PlasmaOrdered By: Josep Perdomo on 01-29-2022 Triglyceride [Mass/Vol] 92 mg/dL 35-149 [facility] Comment on above: TRIG ATP III CLASSIF ICATION TRIG less than 150 mg/dL Normal TRIG 150-199 mg/dL Borderline high TRIG 200-500 mg/dL High TRIG greater than 500 mg/dL Very high Standard traceable to the Center for Disease Conrtrol and Prevention (CDC) test method. Tobacco Screening.on 022 Adult depression screening assessment No [facility] 250 DO Work Phone: Tobacco use status [facility] b) No [facility] 250 DO Work Phone: XR Knee AP and Lateral and M erchantson 12-09-2021 IMPRESSION: Postoperative and degenerative findings as described. No acute osseous findings. Ice Cream Vendor: [employer] Transcribe Date/Time: Dec 09 2021 11:37A [...] given projections. [id number] E_DIVISION OF RADIOLOGY Provider, [facility] - 12/09/2021 * * *Final Report* * [...] findings as described. No acute osseous findings. Ice Cream Vendor: [employer]SC[employer] Transcribe Date/Time: Dec 09 2021 11:37A Dictated by : EVANGELISTA LIMON MD This examination was interpreted and the report reviewed and electronically signed by: EVANGELISTA LIMON MD on Dec 09 2021 11:39AM EST [facility] Radiology Study observation (narrative) [facility] XR Knee AP and Lateral and M erchantsOrdered By: Ccf Provider on 12-09-2021 [facility] COVID Quick Testingon 2021 Result Negative [facility] Other XR Knee - bilateral 3 Viewso n 08-03-2021 IMPRESSION: 1. Unremarkable left total knee arthroplasty. 2. Right knee lateral compartment arthroplasty and severe degenerative arthritis. Ice Cream Vendor: PSCBasim Transcribe Date/Time: Aug 03 2021 9:42A Dictated by : KEMAR WONG MD This examination was interpreted and the report reviewed and electronically signed by: KEMAR WONG MD on Aug 03 2021 9:45AM EST DIVISION OF RADIOLOGY * * *Final [...] No gross effusion. DIVISION OF RADIOLOGY Provider, [facility] - 08/03/2021 * * *Final Report* [...] lateral compartment arthroplasty and severe degenerative arthritis. Ice Cream Vendor: [employer] Transcribe Date/Time: Aug 03 2021 9:42A Dictated by : KEMAR WONG MD This examination was interpreted and the report reviewed and electronically signed by: KEMAR WONG MD on Aug 03 2021 9:45AM EST [facility] Radiology Study observation (narrative) [facility] XR Knee - bilateral 3 ViewsO rdered By: Ccf Provider on 08-03-2021 [facility] XR Knee - bilateral 3 Viewso n 03-27-2021 IMPRESSION: POSTOPERATIVE AND DEGENERATIVE FINDINGS, CONSISTENT WITH THE PRIOR. Ice Cream Vendor: [facility] Transcribe Date/Time: Mar 27 2021 11:18A Dictated [...] fracture or dislocation. DIVISION OF RADIOLOGY Provider, Agueda Mayer [facility] - 03/27/2021 * * *Final Report* * [...] AND DEGENERATIVE FINDINGS, CONSISTENT WITH THE PRIOR. Ice Cream Vendor: [facility] Transcribe Date/Time: Mar 27 2021 11:18A Dictated by : GINETTE ORTEGA MD This examination was interpreted and the report reviewed and electronically signed by: GINETTE ORTEGA MD on Mar 27 2021 11:20AM EST [facility] Radiology Study observation (narrative) [facility] XR Knee - bilateral 3 ViewsO rdered By: Ccf Provider on 03-27-2021 [facility] XR Knee - left 4 Viewson IMPRESSION: Left total knee arthroplasty in place with no evidence of complications. Ice Cream Vendor: [facility] Transcribe Date/Time: Feb 02 2021 10:37A Dictated by : ELLEN HANEY MD This examination was interpreted and the report reviewed and electronically signed by: ELLEN HANEY MD on Feb 02 2021 10:38AM EST DIVISION OF RADIOLOGY * * *Final [...] other significant abnormality. DIVISION [facility] RADIOLOGY [facility] * * *Final Report* * [...] in place with no evidence of complications. Ice Cream Vendor: [employer] Transcribe Date/Time: Feb 02 2021 10:37A Dictated by : ELLEN HANEY MD This examination was interpreted and the report reviewed and electronically signed by: ELLEN HANEY MD on Feb 02 2021 10:38AM EST [facility] Radiology Study observation (narrative) [facility] XR Knee - left 4 ViewsOrdere d By: Ccf Provider on 02-02-2021 [facility] XR Knee AP and Lateral and Kathryn thakur 02-27-2020 IMPRESSION: STABLE POSTSURGICAL CHANGE OF TOTAL KNEE ARTHROPLASTY Ice Cream Vendor: [facility] Transcribe Date/Time: Feb 27 2020 10:45A Dictated by : ANN AU MD This examination was interpreted and the report reviewed and electronically signed by: ANN AU MD on Feb 27 2020 10:46AM EST DIVISION OF RADIOLOGY * * *Final [...] gas has resolved. DIVISION OF RADIOLOGY Provider, [facility] - 02/27/2020 * * *Final Report* * [...] STABLE POSTSURGICAL CHANGE OF TOTAL KNEE ARTHROPLASTY Ice Cream Vendor: [facility] Transcribe Date/Time: Feb 27 2020 10:45A Dictated by : ANN AU MD This examination was interpreted and the report reviewed and electronically signed by: ANN AU MD on Feb 27 2020 10:46AM EST [facility] Radiology Study observation (narrative) [facility] XR Knee AP and Lateral and M erchantsOrdered By: Ccf Provider on 02-27-2020 [facility] Vital Signs Date Time Vital Sign Value Performing Clinician Facility 03-15-2025 09:0400 Body height 175.3 cm Josep Perdomo MD Work Phone: [facility] 03-15-2025 09:0400 Body mass index (BMI) [Ratio] 34.85 kg/m2 Josep Perdomo MD Work Phone: [facility] 03-15-2025 09:19-0400 Body weight 107.05 kg Josep Perdomo MD Work Phone: [facility] 03-15-2025 09:19-0400 Diastolic blood pressure 58 mm[Hg] Josep Perdomo MD Work Phone: [facility] 03-15-2025 09:19-0400 Heart rate 60 /min Josep Perdomo MD Work Phone: [facility] 03-15-2025 09:19-0400 Systolic blood pressure 132 mm[Hg] Josep Perdomo MD Work Phone: [facility] 02-04-2025 08:44-0400 Body height 175.[address] 02-04-2025 08:44-0400 Body mass index (BMI) [Ratio] 33.52 kg/m2 [address] 02-04-2025 08:44-0400 Body weight 102.[address] 02-04-2025 08:44-0400 Diastolic blood pressure 68 mm[Hg] [address] 02-04-2025 08:44-0400 Systolic blood pressure 142 mm[Hg] [address] 01-31-2025 08:58-0400 Body height 172.7 cm Guerline Lause [employer]ING [employer]ARD INSPECTOR Work Phone: [facility] 01-31-2025 08:58-0400 Body mass index (BMI) [Ratio] 36.19 kg/m2 Guerline Lause [employer]ING C[employer]BOARD INSPECTOR Work Phone: [facility] 01-31-2025 08:58-0400 Body temperature 97.3 [degF] Guerline Lause [employer]ING C[employer]BOARD INSPECTOR Work Phone: [facility] 01-31-2025 08:58-0400 Body weight 107.96 kg Guerline Lause SIDING C[employer]BOARD INSPECTOR Work Phone: [facility] 01-31-2025 08:58-0400 Diastolic blood pressure 82 mm[Hg] Guerline Lause [employer]IDING C[employer]BOARD INSPECTOR Work Phone: [facility] 01-31-2025 08:58-0400 Heart rate 74 /min Guerline Lause [employer]IDING C[employer]BOARD INSPECTOR Work Phone: [facility] 01-31-2025 08:58-0400 Respiratory rate 18 /min Guerline Lause [employer]ING C[employer]BOARD INSPECTOR Work Phone: [facility] 01-31-2025 08:58-0400 SaO2% (BldA) [Mass fraction] 98 % Guerline Lause [employer]IDING C[employer]BOARD INSPECTOR Work Phone: [facility] 01-31-2025 08:58-0400 Systolic blood pressure 162 mm[Hg] Guerline Lause [employer]IDING C[employer]BOARD INSPECTOR Work Phone: [facility] 11-16-2024 08:08-0400 Body height 172.7 cm Valentina Gregg MD Work Phone: [facility] 11-16-2024 08:08-0400 Body mass index (BMI) [Ratio] 34.52 kg/m2 Valentina Gregg MD Work Phone: [facility] 11-16-2024 08:08-0400 Body weight 102.97 kg Valentina Gregg MD Work Phone: [facility] 09-17-2024 08:03-0500 Body height 172.7 cm Noemi Warchol [employer]ING C[employer]ARD INSPECTOR Work Phone: [facility] 09-17-2024 08:03-0500 Body mass index (BMI) [Ratio] 34.52 kg/m2 Noemi Warchol [employer]IDING C[employer]BOARD INSPECTOR Work Phone: [facility] 09-17-2024 08:03-0500 Body temperature 97.11 [degF] Noemi Warchol SIDING C[employer]BOARD INSPECTOR Work Phone: [facility] 09-17-2024 08:03-0500 Body weight 102.97 kg Noemi Warchol SIDING C[employer]BOARD INSPECTOR Work Phone: [facility] 09-17-2024 08:03-0500 Diastolic blood pressure 60 mm[Hg] Noemi Warchol SIDING C[employer]BOARD INSPECTOR Work Phone: [facility] 09-17-2024 08:03-0500 Heart rate 76 /min Noemi Warchol [employer]IDING C[employer]BOARD INSPECTOR Work Phone: [facility] 09-17-2024 08:03-0500 Respiratory rate 20 /min Noemi Warchol [employer]IDING C[employer]BOARD INSPECTOR Work Phone: [facility] 09-17-2024 08:03-0500 SaO2% (BldA) [Mass fraction] 97 % Noemi Warchol [employer]IDING C[employer]BOARD INSPECTOR Work Phone: [facility] 09-17-2024 08:03-0500 Systolic blood pressure 126 mm[Hg] Noemi Warchol SIDING C[employer]BOARD INSPECTOR Work Phone: [facility] 08-03-2024 08:55-0500 Body height 172.7 cm Noemi Warchol SIDING C[employer]BOARD INSPECTOR Work Phone: [facility] 08-03-2024 08:55-0500 Body mass index (BMI) [Ratio] 34.82 kg/m2 Noemi Warchol SIDING C[employer]BOARD INSPECTOR Work Phone: [facility] 08-03-2024 08:55-0500 Body weight 103.87 kg Noemi Warchol SIDING C[employer]BOARD INSPECTOR Work Phone: [facility] 08-03-2024 08:55-0500 Diastolic blood pressure 70 mm[Hg] Noemi Warchol SIDING C[employer]BOARD INSPECTOR Work Phone: [facility] 08-03-2024 08:55-0500 Heart rate 65 /min Noemi Warchol [employer]IDING C[employer]BOARD INSPECTOR Work Phone: [facility] 08-03-2024 08:55-0500 Respiratory rate 16 /min Noemi Warchol SIDING C[employer]BOARD INSPECTOR Work Phone: [facility] 08-03-2024 08:55-0500 SaO2% (BldA) [Mass fraction] 97 % Noemi Warchol [employer]IDING C[employer]BOARD INSPECTOR Work Phone: [facility] 08-03-2024 08:55-0500 Systolic blood pressure 122 mm[Hg] Noemi Warchol SIDING C[employer]BOARD INSPECTOR Work Phone: [facility] 07-07-2024 08:57-0500 Body height 172.7 cm Valentina Gregg MD Work Phone: [facility] 07-07-2024 08:57-0500 Body mass index (BMI) [Ratio] 34.06 kg/m2 Valentina Gregg MD Work Phone: [facility] 07-07-2024 08:57-0500 Body weight 101.61 kg Valentina Gregg MD Work Phone: [facility] 07-07-2024 08:57-0500 Diastolic blood pressure 80 mm[Hg] Valentina Gregg MD Work Phone: [facility] 07-07-2024 08:57-0500 Systolic blood pressure 160 mm[Hg] Valentina Gregg MD Work Phone: [facility] 06-20-2024 08:26-0500 Body height 172.7 cm Bin Dolce DPM FACFAS Work Phone: [facility] 06-20-2024 08:26-0500 Body mass index (BMI) [Ratio] 34.21 kg/m2 Bin Dolce DPM FACFAS Work Phone: [facility] 06-20-2024 08:26-0500 Body weight 102.06 kg Bin Dolce DPM FACFAS Work Phone: [facility] 06-20-2024 08:26-0500 Diastolic blood pressure 71 mm[Hg] Bin Dolce DPM FACFAS Work Phone: [facility] 06-20-2024 08:26-0500 Heart rate 68 /min Bin Dolce DPM FACFAS Work Phone: [facility] 06-20-2024 08:26-0500 Systolic blood pressure 128 mm[Hg] Bin Dolce DPM FACFAS Work Phone: [facility] 06-06-2024 08:31-0500 Body height 172.7 cm Bin Dolce DPM FACFAS Work Phone: [facility] 11-20-2024 08:31-0500 Body mass index (BMI) [Ratio] 34.21 kg/m2 Bin Dolce DPM FACFAS Work Phone: [facility] 06-06-2024 08:31-0500 Body weight 102.06 kg Bin Dolce DPM FACFAS Work Phone: [facility] 06-06-2024 08:31-0500 Diastolic blood pressure 67 mm[Hg] Bin Dolce DPM FACFAS Work Phone: [facility] 06-06-2024 08:31-0500 Heart rate 70 /min Bin Dolce DPM FACFAS Work Phone: [facility] 06-06-2024 08:31-0500 Systolic blood pressure 132 mm[Hg] Bin Dolce DPM FACFAS Work Phone: [facility] 05-29-2024 09:01-0500 Body height 172.7 cm Bin Dolce DPM FACFAS Work Phone: [facility] 05-29-2024 09:01-0500 Body mass index (BMI) [Ratio] 34.21 kg/m2 Bin Dolce DPM FACFAS Work Phone: [facility] 05-29-2024 09:01-0500 Body weight 102.06 kg Bin Dolce DPM FACFAS Work Phone: [facility] 05-29-2024 09:01-0500 Diastolic blood pressure 68 mm[Hg] Bin Dolce DPM FACFAS Work Phone: [facility] 05-29-2024 09:01-0500 Heart rate 70 /min Bin Dolce DPM FACFAS Work Phone: [facility] 05-29-2024 09:01-0500 Systolic blood pressure 130 mm[Hg] Bin Dolce DPM FACFAS Work Phone: [facility] 05-22-2024 11:33-0500 Body height 172.7 cm Bin Dolce DPM FACFAS Work Phone: [facility] 05-22-2024 11:33-0500 Body mass index (BMI) [Ratio] 34.21 kg/m2 Bin Dolce DPM FACFAS Work Phone: [facility] 05-22-2024 11:33-0500 Body weight 102.06 kg Bin Dolce DPM FACFAS Work Phone: [facility] 05-22-2024 11:33-0500 Diastolic blood pressure 67 mm[Hg] Bin Dolce DPM FACFAS Work Phone: [facility] 05-22-2024 11:33-0500 Heart rate 68 /min Bin Dolce DPM FACFAS Work Phone: [facility] 05-22-2024 11:33-0500 Systolic blood pressure 132 mm[Hg] Bin Dolce DPM FACFAS Work Phone: [facility] 05-15-2024 09:38-0400 Body height 172.7 cm Bin Dolce DPM FACFAS Work Phone: [facility] 05-15-2024 09:38-0400 Body mass index (BMI) [Ratio] 34.21 kg/m2 Bin Dolce DPM FACFAS Work Phone: [facility] 05-15-2024 09:38-0400 Body weight 102.06 kg Bin Dolce DPM FACFAS Work Phone: [facility] 05-15-2024 09:38-0400 Diastolic blood pressure 64 mm[Hg] Bin Dolce DPM FACFAS Work Phone: [facility] 05-15-2024 09:38-0400 Heart rate 69 /min Bin Dolce DPM FACFAS Work Phone: [facility] 05-15-2024 09:38-0400 Systolic blood pressure 131 mm[Hg] Bin Dolce DPM FACFAS Work Phone: [facility] 03-30-2024 08:47-0400 Body height 172.7 cm Noemi Warchol SIDING COREBOARD INSPECTOR Work Phone: [facility] 03-30-2024 08:47-0400 Body mass index (BMI) [Ratio] 34.3 kg/m2 Noemi Warchol SIDING COREBOARD INSPECTOR Work Phone: [facility] 03-30-2024 08:47-0400 Body temperature 97.3 [degF] Noemi Cruzchol SIDING COREBOARD INSPECTOR Work Phone: [facility] 03-30-2024 08:47-0400 Body weight 102.33 kg Noemi Cruzchol SIDING COREBOARD INSPECTOR Work Phone: [facility] 03-30-2024 08:47-0400 Diastolic blood pressure 62 mm[Hg] Noemi Cruzchol SIDING COREBOARD INSPECTOR Work Phone: [facility] 03-30-2024 08:47-0400 Heart rate 68 /min Noemi Cruzchol SIDING COREBOARD INSPECTOR Work Phone: [facility] 03-30-2024 08:47-0400 SaO2% (BldA) [Mass fraction] 98 % Noemi Argueta SIDING COREBOARD INSPECTOR Work Phone: [facility] 03-30-2024 08:47-0400 Systolic blood pressure 130 mm[Hg] Noemi Argueta SIDING COREBOARD INSPECTOR Work Phone: [facility] 03-24-2024 09:07-0400 Body height 172.7 cm Valentina Gregg MD Work Phone: [facility] 03-24-2024 09:07-0400 Body mass index (BMI) [Ratio] 34.06 kg/m2 Valentina Gregg MD Work Phone: [facility] 03-24-2024 09:07-0400 Body weight 101.61 kg Valentina Gregg MD Work Phone: [facility] 03-24-2024 09:07-0400 Diastolic blood pressure 98 mm[Hg] Valentina Gregg MD Work Phone: [facility] 03-24-2024 09:07-0400 Systolic blood pressure 172 mm[Hg] Valentina Gregg MD Work Phone: [facility] 03-16-2024 10:01-0400 Body height 175.3 cm Josep Perdomo MD Work Phone: [facility] 03-16-2024 10:01-0400 Body mass index (BMI) [Ratio] 33.58 kg/m2 Josep Perdomo MD Work Phone: [facility] 03-16-2024 10:01-0400 Body weight 103.15 kg Josep Perdomo MD Work Phone: [facility] 03-16-2024 10:01-0400 Diastolic blood pressure 64 mm[Hg] Josep Perdomo MD Work Phone: [facility] 03-16-2024 10:01-0400 Heart rate 64 /min Josep Perdomo MD Work Phone: [facility] 03-16-2024 10:01-0400 Systolic blood pressure 138 mm[Hg] Josep Perdomo MD Work Phone: [facility] 09-09-2023 11:55-0500 Diastolic blood pressure 68 mm[Hg] Josep Perdomo MD Work Phone: [facility] 09-09-2023 11:55-0500 Systolic blood pressure 138 mm[Hg] Josep Perdomo MD Work Phone: [facility] 09-09-2023 11:40-0500 Body height 172.7 cm Josep Perdomo MD Work Phone: [facility] 09-09-2023 11:40-0500 Body mass index (BMI) [Ratio] 35.28 kg/m2 Josep Perdomo MD Work Phone: [facility] 09-09-2023 11:40-0500 Body weight 105.23 kg Josep Perdomo MD Work Phone: [facility] 09-09-2023 11:40-0500 Heart rate 72 /min Josep Perdomo MD Work Phone: [facility] 11-30-2022 13:11-0400 Diastolic blood pressure 64 mm[Hg] Oswaldo Rafiq WineDemon Work Phone: [facility] DO Work Phone: 11-30-2022 13:11-0400 Systolic blood pressure 150 mm[Hg] Oswaldo Conroy Grewal Work Phone: [facility] DO Work Phone: 11-30-2022 13:08-0400 Body height 172.72 cm Oswaldo A WineDemon Work Phone: [facility] DO Work Phone: 11-30-2022 13:08-0400 Body mass index (BMI) [Ratio] 39.53 kg/m2 Osawldo Conroy Wine[employer]on Work Phone: [facility] DO Work Phone: 11-30-2022 13:08-0400 Body surface area Derived from formula 2.28 m2 Oswaldo Rafiq [employer] Work Phone: [facility] DO Work Phone: 11-30-2022 13:08-0400 Body weight 117.94 kg Oswaldo A [employer] Work Phone: [facility] DO Work Phone: 11-30-2022 13:08-0400 Diastolic blood pressure 70 mm[Hg] Oswaldo Rafiq Grewal Work Phone: [facility] DO Work Phone: 11-30-2022 13:08-0400 Heart rate 80 /min Oswaldo A [employer] Work Phone: [facility] DO Work Phone: 11-30-2022 13:08-0400 Systolic blood pressure 150 mm[Hg] Oswaldo Conroy Grewal Work Phone: [facility] DO Work Phone: 10-06-2022 15:59-0400 Body height 172.72 cm Oswaldo Conroy [employer] Work Phone: [facility] DO Work Phone: 10-06-2022 15:59-0400 Body mass index (BMI) [Ratio] 38.01 kg/m2 Oswaldo Conroy [employer] Work Phone: [facility] DO Work Phone: 10-06-2022 15:59-0400 Body surface area Derived from formula 2.25 m2 Oswaldo Conroy [employer] Work Phone: [facility] DO Work Phone: 10-06-2022 15:59-0400 Body weight 113.4 kg Oswaldo Conroy [employer] Work Phone: [facility] DO Work Phone: 10-06-2022 15:59-0400 Diastolic blood pressure 70 mm[Hg] Oswaldo Conroy [employer] Work Phone: [facility] DO Work Phone: 10-06-2022 15:59-0400 Heart rate 80 /min Oswaldo Conroy [employer] Work Phone: [facility] DO Work Phone: 10-06-2022 15:59-0400 Systolic blood pressure 170 mm[Hg] Oswaldo Conroy Grewal Work Phone: [facility] DO Work Phone: 08-05-2022 08:37-0500 Body height 172.7 cm Pacc 4 Work Phone: [facility] 08-05-2022 08:37-0500 Body temperature 97.5 [degF] Pacc 4 Work Phone: [facility] 08-05-2022 08:37-0500 Body weight 115.21 kg Pacc 4 Work Phone: [facility] 08-05-2022 08:37-0500 Diastolic blood pressure 62 mm[Hg] Pacc 4 Work Phone: [facility] 08-05-2022 08:37-0500 Heart rate 65 /min Pacc 4 Work Phone: [facility] 08-05-2022 08:37-0500 Respiratory rate 16 /min Pacc 4 Work Phone: [facility] 08-05-2022 08:37-0500 SaO2% (BldA) [Mass fraction] 99 % Pacc 4 Work Phone: [facility] 08-05-2022 08:37-0500 Systolic blood pressure 159 mm[Hg] Pacc 4 Work Phone: [facility] 06-02-2022 12:50-0500 Diastolic blood pressure 77 mm[Hg] DECORATION CHECKER Yajaira Kiepert Work Phone: [facility] 06-02-2022 12:50-0500 Heart rate 62 /min DECORATION CHECKER Yajaira Kiepert Work Phone: [facility] 06-02-2022 12:50-0500 Respiratory rate 16 /min DECORATION CHECKER Yajaira Kiepert Work Phone: [facility] 06-02-2022 12:50-0500 SaO2% (BldA) [Mass fraction] 94 % DECORATION CHECKER Yajaira Kiepert Work Phone: [facility] 06-02-2022 12:50-0500 Systolic blood pressure 170 mm[Hg] DECORATION CHECKER Yajaira Kiepert Work Phone: [facility] 06-02-2022 12:20-0500 Inhaled oxygen flow rate 1 L/min DECORATION CHECKER Yajaira Kiepert Work Phone: [facility] 06-02-2022 10:44-0500 Body height 172.72 cm DECORATION CHECKER Yajaira Kiepert Work Phone: [facility] 06-02-2022 10:44-0500 Body mass index (BMI) [Ratio] 38.9 kg/m2 MARY KATE Bhardwaj Work Phone: [facility] 06-02-2022 10:44-0500 Body weight 116 kg MARY KATE Bhardwaj Work Phone: [facility] 06-02-2022 10:40-0500 Body temperature 97.7 [degF] MARY KATE Bhardwaj Work Phone: [facility] 04-01-2022 16:36-0400 Diastolic blood pressure 87 mm[Hg] Oswaldo Conroy Wine[employer] Work Phone: [facility] DO Work Phone: 04-01-2022 16:36-0400 Systolic blood pressure 139 mm[Hg] Oswaldo Conroy [employer] Work Phone: [facility] DO Work Phone: 04-01-2022 14:50-0400 Body height 172.72 cm Oswaldo Conroy Wine[employer] Work Phone: [facility] DO Work Phone: 04-01-2022 14:50-0400 Body mass index (BMI) [Ratio] 38.32 kg/m2 Oswaldo Conroy Wine[employer]on Work Phone: [facility] DO Work Phone: 04-01-2022 14:50-0400 Body surface area Derived from formula 2.25 m2 Oswaldo Conroy Wine[employer]on Work Phone: [facility] DO Work Phone: 04-01-2022 14:50-0400 Body weight 114.31 kg Oswaldo Conroy WineDemon Work Phone: [facility] DO Work Phone: 04-01-2022 14:50-0400 Diastolic blood pressure 72 mm[Hg] Oswaldo A Grewal Work Phone: [facility] DO Work Phone: 04-01-2022 14:50-0400 Heart rate 72 /min Oswaldo A Grewal Work Phone: [facility] DO Work Phone: 04-01-2022 14:50-0400 Systolic blood pressure 162 mm[Hg] Oswaldo A Grewal Work Phone: [facility] DO Work Phone: 03-20-2022 18:00-0400 Body temperature 97.52 [degF] Oswaldo Grewal Other Phone: [facility] 03-20-2022 18:00-0400 Diastolic blood pressure 61 mm[Hg] Oswaldo Grewal Other Phone: [facility] 03-20-2022 18:00-0400 Heart rate 87 /min Oswaldo Grewal Other Phone: [facility] 03-20-2022 18:00-0400 Respiratory rate 25 /min Oswaldo Grewal Other Phone: [facility] 03-20-2022 18:00-0400 SaO2% (BldA) [Mass fraction] 95 % Oswaldo Grewal Other Phone: [facility] 03-20-2022 18:00-0400 Systolic blood pressure 153 mm[Hg] Oswaldo Grewal Other Phone: [facility] 03-08-2022 10:28-0400 Body height 172.72 cm Oswaldo A Grewal Work Phone: [place] [address] [place] Work Phone: 03-08-2022 10:28-0400 Body mass index (BMI) [Ratio] 38.32 kg/m2 Oswaldo Conroy WineDemon Work Phone: OZ-Flapdgalzb-OOV [facility] [address] [place] Work Phone: 03-08-2022 10:28-0400 Body surface area Derived from formula 2.25 m2 Oswaldo Conroy Wine[employer]on Work Phone: YP-Grnqplbsqd-LWI [facility] [address] [place] Work Phone: 03-08-2022 10:28-0400 Body weight 114.31 kg Oswaldo Conroy [employer] Work Phone: UI-Yiybtszigq-MJK [facility] [address] [place] Work Phone: 03-08-2022 10:28-0400 Diastolic blood pressure 66 mm[Hg] Oswaldo Conroy [employer]on Work Phone: MA-Ljgousfcwi-MJW [facility] [address] [place] Work Phone: 03-08-2022 10:28-0400 Heart rate 72 /min Oswaldo Conroy [employer]on Work Phone: HK-Ntmajsbstw-XYW [facility] [address] [place] Work Phone: 03-08-2022 10:28-0400 SaO2% (BldA) [Mass fraction] 98 % Oswaldo Conroy [employer]on Work Phone: RE-Sioijavtgt-JEI [facility] [address] [place] Work Phone: 03-08-2022 10:28-0400 Systolic blood pressure 157 mm[Hg] Oswaldo Conroy WineDemon Work Phone: TR-Dnybgifrox-YCO [facility] [address] [place] Work Phone: 03-08-2022 10:28-0400 0 1 Oswaldo Conroy [employer] Work Phone: OD-Cuygxsbefg-UDV [facility] [address] [place] Work Phone: Comment on above: [employer] 02-22-2022 11:00-0400 Body height 176.53 cm Kindra Peralta Other [facility] Other 02-22-2022 11:00-0400 Body mass index (BMI) [Ratio] 36.39 kg/m2 Kindra Peralta Other [facility] Other 02-22-2022 11:00-0400 Body temperature 98.1 [degF] Kindra Peralta Other [facility] Other 02-22-2022 11:00-0400 Body weight 113.4 kg Kindra Peralta Other [facility] Other 02-22-2022 11:00-0400 Respiratory rate 18 /min Kindra Peralta Other [facility] Other 02-22-2022 11:00-0400 SaO2% (BldA) [Mass fraction] 98 % Kindra Peralta Other [facility] Other 02-02-2022 16:25-0400 60 1 Oswaldolily Grewal Work Phone: [facility] DO Work Phone: Comment on above: [id number] 02-02-2022 15:32-0400 Body temperature 97.8 [degF] DECORATION CHECKER Yajaira Kiepert Work Phone: [facility] 02-02-2022 15:32-0400 Diastolic blood pressure 62 mm[Hg] DECORATION CHECKER Yajaira Kiepert Work Phone: [facility] 02-02-2022 15:32-0400 Heart rate 68 /min DECORATION CHECKER Yajaira Kiepert Work Phone: [facility] 02-02-2022 15:32-0400 Respiratory rate 16 /min DECORATION CHECKER Yajaira Kiepert Work Phone: [facility] 02-02-2022 15:32-0400 SaO2% (BldA) [Mass fraction] 96 % DECORATION CHECKERAriadna Bhardwaj Work Phone: [facility] 02-02-2022 15:32-0400 Systolic blood pressure 142 mm[Hg] MARY KATE Eddyt Work Phone: [facility] 02-02-2022 10:57-0400 Body height 172.72 cm MARY KATE Bhardwaj Work Phone: [facility] 02-02-2022 10:57-0400 Body mass index (BMI) [Ratio] 38.2 kg/m2 MARY KATE Bhardwaj Work Phone: [facility] 02-02-2022 10:57-0400 Body weight 114 kg MARY KATE Bhardwaj Work Phone: [facility] 02-02-2022 00:00-0400 65 1 Oswaldo A WineDemon Work Phone: [facility] DO Work Phone: Comment on above: [id number] 12-23-2021 14:35-0400 Body height 172.72 cm Oswaldo Rafiq WineDemon Work Phone: [facility] DO Work Phone: 12-23-2021 14:35-0400 Body mass index (BMI) [Ratio] 37.86 kg/m2 Oswaldo A WineDemon Work Phone: [facility] DO Work Phone: 12-23-2021 14:35-0400 Body surface area Derived from formula 2.24 m2 Oswaldo Rafiq [employer]on Work Phone: [facility] DO Work Phone: 12-23-2021 14:35-0400 Body weight 112.95 kg Oswaldo Conroy [employer] Work Phone: [facility] DO Work Phone: 12-23-2021 14:35-0400 Diastolic blood pressure 70 mm[Hg] Oswaldo Conroy WineDemon Work Phone: [facility] DO Work Phone: 12-23-2021 14:35-0400 Heart rate 69 /min Oswaldo Conroy Wine[employer]on Work Phone: [facility] DO Work Phone: 12-23-2021 14:35-0400 Systolic blood pressure 161 mm[Hg] Oswaldo Conroy WineDemon Work Phone: [facility] DO Work Phone: 12-23-2021 14:32-0400 Body height 172.72 cm Oswaldo Conroy WineDemon Work Phone: [facility] DO Work Phone: 12-23-2021 14:32-0400 Body mass index (BMI) [Ratio] 37.86 kg/m2 Oswaldo Conroy WineDemon Work Phone: [facility] DO Work Phone: 12-23-2021 14:32-0400 Body surface area Derived from formula 2.24 m2 Oswaldo Conroy [employer] Work Phone: [facility] DO Work Phone: 12-23-2021 14:32-0400 Body weight 112.95 kg Oswaldo Conroy [employer]on Work Phone: [facility] DO Work Phone: 12-23-2021 14:32-0400 Diastolic blood pressure 78 mm[Hg] Oswaldo Conroy WineDemon Work Phone: [facility] DO Work Phone: 12-23-2021 14:32-0400 Heart rate 69 /min Oswaldo Grewal Work Phone: [facility] DO Work Phone: 12-23-2021 14:32-0400 Systolic blood pressure 162 mm[Hg] Oswaldo Samter Work Phone: [facility] DO Work Phone: 12-17-2021 00:00-0400 65 1 Oswaldo Grewal Work Phone: [facility] DO Work Phone: Comment on above: [id number] 09-07-2021 10:45-0500 Body height 176.53 cm Kindra Kathryn Other [facility] Other 09-07-2021 10:45-0500 Body mass index (BMI) [Ratio] 33.77 kg/m2 Kindra Kathryn Other [facility] Other 09-07-2021 10:45-0500 Body temperature 97.7 [degF] Kindra Kathryn Other [facility] Other 09-07-2021 10:45-0500 Body weight 105.24 kg Kindra Kathryn Other [facility] Other 09-07-2021 10:45-0500 SaO2% (BldA) [Mass fraction] 95 % Kindra Kathryn Other [facility] Other Encounters Encounter Date Encounter Type Care Provider Facility Start: 03-19-2025 End: 03-19-2025 ambulatory Oswaldo Grewal MD Work Phone: [facility] Work Phone: Start: 03-19-2025 End: 03-19-2025 Patient encounter procedure Esther Palomares MD -[facility] Work Phone: Start: 03-19-2025 End: 03-19-2025 Patient encounter procedure Esther Palomares MD -[facility] Start: 03-19-2025 End: 03-19-2025 ambulatory Oswaldo Grewal MD Work Phone: [facility] Work Phone: Start: 03-15-2025 End: 03-15-2025 ambulatory [facility] Start: 03-15-2025 End: 03-15-2025 Office outpatient visit 15 minutes Josep Perdomo MD Work Phone: [facility] Comment on above: S/P TAVR (transcathe ter aortic valve replacement) (Primary Dx); Essential hypertension, benign; Mixed hyperlipidemia; BMI 34.0-34.9,adult; Never smoked tobacco Start: 02-26-2025 End: 02-26-2025 Telephone encounter Valentina Grgeg MD Work Phone: [facility] Start: 02-13-2025 End: 02-13-2025 ambulatory Oswaldo Grewal MD Work Phone: [facility] Work Phone: Start: 02-13-2025 End: 02-13-2025 Patient encounter procedure Esther Palomares MD -[facility] Work Phone: Start: 02-13-2025 End: 02-13-2025 Patient encounter procedure Esther Palomares MD -[facility] Start: 02-13-2025 End: 02-13-2025 ambulatory Oswaldo Grewal MD Work Phone: [facility] Work Phone: Start: 02-04-2025 End: 02-04-2025 Clinisync Result Encounter Generic External Data Provider [facility] External Department Unsolicited Start: 02-04-2025 End: 02-04-2025 Clinisync Result Encounter Generic External Data Provider [facility] External Department Unsolicited Start: 02-04-2025 End: 02-04-2025 Subsequent hospital visit by physician Cheryl [facility] Echo/Vasc Room 2 [facility] Comment on above: Essential hypertensi on, benign; S/P TAVR (transcatheter aortic valve replacement) Start: 02-04-2025 End: 02-04-2025 ambulatory [facility] Start: 01-31-2025 End: 01-31-2025 Office outpatient visit 25 minutes Guerline Obrien SIDING COREBOARD INSPECTOR Work Phone: [facility] Comment on above: Type 2 diabetes jewel itus without complication, without long- term current use of insulin (HCC) (Primary Dx); Primary hypertension ; Hypertriglyceridemia ; Restless legs syndrome; Encounter for screening mammogram for breast cancer; Irritable bowel syndrome, unspecified type; Gastroesophageal reflux disease without esophagitis Start: 01-31-2025 End: 01-31-2025 ambulatory GUERLINE OBRIEN Not Available Start: 01-14-2025 End: 01-14-2025 Orders Only Oswaldo Grewal MD Work Phone: [facility] Comment on above: RLS (restless legs s yndrome) (Primary Dx) Med Refill Start: 01-09-2025 End: 01-09-2025 ambulatory Oswaldo Grewal MD Work Phone: [facility] Work Phone: Start: 01-09-2025 End: 01-09-2025 Patient encounter procedure Esther Palomares MD -[facility] Work Phone: Start: 11-16-2024 End: 11-16-2024 Bamboo flowsheet Valentina Gregg MD Work Phone: [facility] Start: 11-16-2024 End: 11-16-2024 Audrey flowsheet Valentina Gregg MD Work Phone: [facility] Start: 11-16-2024 End: 11-16-2024 Office outpatient visit 25 minutes Valentina Gregg MD Work Phone: [facility] Comment on above: Acute left-sided low back pain with left-sided sciatica; RLS (restless legs syndrome); Carpal tunnel syndrome, bilateral Start: 11-16-2024 End: 11-16-2024 ambulatory VALENTINA GREGG Not Available Start: 11-12-2024 End: 11-12-2024 Refill Guerline R Lause SIDING COREBOARD INSPECTOR Work Phone: [facility] Comment on above: Irritable bowel synd karlee, unspecified type Start: 10-15-2024 End: 10-15-2024 Refill Guerline R Lause SIDING COREBOARD INSPECTOR Work Phone: [facility] Comment on above: Acute left-sided low back pain with left-sided sciatica Start: 10-10-2024 End: 10-10-2024 Telephone encounter Valentina Gregg MD Work Phone: [facility] Start: 09-17-2024 End: 09-17-2024 ambulatory NOEMI ARGUETA Not Available Start: 09-17-2024 End: 09-17-2024 Office outpatient visit 25 minutes Noemi Argueta SIDING COREBOARD INSPECTOR Work Phone: [facility] Comment on above: Acute left-sided low back pain with left-sided sciatica (Primary Dx) Start: 08-03-2024 End: 08-03-2024 Bamboo flowsheet Noemi Argueta SIDING COREBOARD INSPECTOR Work Phone: [facility] Start: 08-03-2024 End: 08-03-2024 Bamboo flowsheet Noemi Cruzchol SIDING COREBOARD INSPECTOR Work Phone: [facility] Start: 08-03-2024 End: 08-03-2024 Office outpatient visit 25 minutes Noemi Argueta SIDING COREBOARD INSPECTOR Work Phone: [facility] Comment on above: Type 2 diabetes jewel itus with foot ulcer (CODE) ([facility]) (Primary Dx); Non-pressure chronic ulcer of other part of right foot with fat layer exposed ([facility]); Type 2 diabetes mellitus with diabetic chronic kidney disease ([facility]); Chronic kidney disease, stage 3a (HCC) ([facility]); Type 2 diabetes mellitus with diabetic cataract ([facility]); Carpal tunnel syndrome, bilateral; Irritable bowel syndrome, unspecified type; Restless legs syndrome; Hypothyroidism (acquired) ([facility]); Primary hypertension ([facility]); Hypertriglyceridemia ([facility]); Type 2 diabetes mellitus with diabetic cataract, without long-term current use of insulin ([facility]) [E11.36] Start: 08-03-2024 End: 08-03-2024 ambulatory NOEMI CRUZSANTANA Not Available Start: 07-07-2024 End: 07-07-2024 Bamboo flowsheet Valentina Gregg MD Work Phone: [facility] Start: 07-07-2024 End: 07-07-2024 Bamboo flowsheet Valentina Gregg MD Work Phone: [facility] Start: 07-07-2024 End: 07-07-2024 Office outpatient visit 25 minutes Valentina Gregg MD Work Phone: [facility] Comment on above: RLS (restless legs s yndrome); Carpal tunnel syndrome, bilateral Start: 07-07-2024 End: 07-07-2024 ambulatory VALENTINA GREGG Not Available Start: 06-26-2024 End: 06-26-2024 Telephone encounter Valentina Gregg MD Work Phone: [facility] Start: 06-20-2024 End: 06-20-2024 Bamboo flowsheet Bin Jhon Bradford DPM FACFAS Work Phone: [facility] Start: 06-20-2024 End: 06-20-2024 Bamboo flowsheet Bin D Dolce DPM FACFAS Work Phone: [facility] [facility] Start: 06-20-2024 End: 06-20-2024 Office outpatient visit 15 minutes Bin Jhon Bradford DPM FACFAS Work Phone: [facility] [...] Start: 05-14-2024 End: 05-14-2024 Refill Noemi Argueta SIDING COREBOARD INSPECTOR Work Phone: [employer] Comment on above: Irritable bowel synd karlee, unspecified type Start: 03-30-2024 End: 03-30-2024 Office outpatient visit 25 minutes Noemi Argueta SIDING COREBOARD INSPECTOR Work Phone: [employer] Comment on above: Adult general medica l examination (Primary Dx); Atherosclerosis of aorta (CMS/HCC); Type 2 diabetes mellitus without complication, unspecified whether joint terminal attack controller insulin use (CMS/HCC); Immunization due; Primary hypertension (CMS/HCC); Anemia, unspecified type; Hypomagnesemia Start: 03-30-2024 End: 03-30-2024 Patient encounter status Noemi Argueta SIDING COREBOARD INSPECTOR Work Phone: [facility] Work Phone: Start: 03-30-2024 End: 03-30-2024 ambulatory [...] 25 minutes Valentina Gregg MD Work Phone: [facility] Comment on above: Carpal tunnel syndro me, bilateral (Primary Dx); RLS (restless legs syndrome) Start: 03-20-2024 End: 03-20-2024 Telephone encounter Valentina Gregg MD Work Phone: [facility] Start: 03-16-2024 End: 03-16-2024 Office outpatient visit 25 minutes Josep Perdomo MD Work Phone: [facility] Comment on above: Mixed hyperlipidemia (Primary Dx); Essential hypertension, benign; BMI 35.0-35.9,adult; Dyspnea, unspecified type; S/P TAVR (transcatheter aortic valve replacement); Never smoked tobacco Start: 03-15-2024 End: 03-15-2024 Telephone encounter Guerline Obrien NP Work Phone: [facility] Start: 09-09-2023 End: 09-09-2023 Office outpatient visit 15 minutes Josep Perdomo MD Work Phone: [facility] Comment on above: Essential hypertensi on, benign (Primary Dx); S/P TAVR (transcatheter aortic valve replacement); Mixed hyperlipidemia; Dyspnea, unspecified type; BMI 35.0-35.9,adult Start: 09-02-2023 End: 09-02-2023 ambulatory SELF Facility:[facility] Start: 09-02-2023 End: 09-02-2023 Patient encounter procedure Lucas Levy PA-C Work Phone: Orthopaedics Comment on above: Aftercare following right knee joint replacement surgery (Primary Dx); Status post revision of total knee, right; Status post left knee replacement Start: 07-29-2023 End: 07-29-2023 ambulatory OSWALDO GREWAL Facility:[facility] Start: 07-29-2023 End: 07-29-2023 Subsequent hospital visit by physician Ricky Combs 1 Work Phone: Radiology Comment on above: Status post revision of total knee, 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] Start: 03-17-2023 Office outpatient vi sit 15 minutes Oswaldo Grewal Work Phone: [facility] Work Phone: Start: 03-17-2023 ambulatory EFFIE SAUCEDO [facility] ility:[id number] Start: 03-02-2023 Refill Lucas Levy PA-C Work Phone: Orthopaedics Start: 02-28-2023 End: 02-28-2023 ambulatory VIOLET COMBS Facility:[facility] Start: 02-28-2023 End: 02-28-2023 Patient encounter procedure Violet Combs MD Work Phone: Orthopaedics Comment on above: Status post revision of total knee, right (Primary Dx); Status post left knee replacement Start: 02-28-2023 End: 02-28-2023 Subsequent hospital visit by physician Ricky Combs 1 Work Phone: Radiology Comment on above: Status post revision of total knee, 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 250 DO Work Phone: Start: 11-30-[address] Josep Perdomo Facility: Start: 11-29-2022 End: 11-29-2022 ambulatory OSWALDO GREWAL Facility:[facility] Start: 11-03-2022 End: 11-03-2022 ambulatory LUCAS LEVY Facility:[facility] Start: 10-15-2022 End: 10-15-2022 ambulatory VIOLET COMBS Facility:[facility] Start: 10-15-2022 End: 10-15-2022 Patient encounter procedure Violet Combs MD Work Phone: Orthopaedics Comment on above: Status post revision of total knee, right (Primary Dx) Start: 10-06-2022 Office outpatient vi sit 25 minutes Oswaldo Grewal Work Phone: [facility] 250 DO Work Phone: Start: 10-06-[address] Josep Perdomo Facility: Start: 10-01-2022 End: 10-02-[address] DOCTOR JANSEN Facility:H1 Start: 09-17-2022 End: 09-17-2022 ambulatory SIDING COREBOARD INSPECTOR Noemi [facility] Work Phone: Start: 09-17-2022 End: 09-17-2022 Patient encounter procedure SIDING COREBOARD INSPECTOR [facility] [place] Work Phone: Start: 09-07-2022 End: 09-07-2022 ambulatory Shalacher Aguilar RT(R) Radiology Comment on above: Radiology XR Start: 09-07-2022 End: 09-07-2022 Patient encounter procedure Shala Aguilar RT(R) [facility] Comment on above: S/P revision of tota l knee, right (Primary Dx) Start: 09-07-2022 End: 09-07-2022 Subsequent hospital visit by physician Ricky Combs 1 Work Phone: Radiology Comment on above: S/P revision of tota l knee, 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] Start: 09-03-2022 Refill Lucas Levy PA-C Work Phone: Orthopaedics Start: 08-23-2022 Chart Update Oswaldo Grewal Work Phone: [facility] 250 DO Work Phone: Start: 08-19-2022 End: 08-20-2022 Evaluation and management of inpatient VIOLET COMBS Facility:[facility] Start: 08-05-2022 End: 08-05-2022 Patient encounter procedure Violet Combs MD Work Phone: Orthopaedics Comment on above: MRSA (methicillin re sistant Staphylococcus aureus) (Primary Dx); S/P right unicompartmental knee replacement; Failed total knee arthroplasty, sequela Start: 08-05-2022 End: 08-05-2022 Admission to [place] [address] Work Phone: [place] Start: 08-05-2022 End: 08-05-2022 ambulatory [facility] Work Phone: Pre Anesthesia Comment on above: Preop examination (P rimary Dx); Primary hypertension; Mixed hyperlipidemia; Irritable bowel syndrome, unspecified type; Obesity, Class II, BMI 35-39.9; Aortic valve stenosis, etiology of cardiac valve disease unspecified; RLS (restless legs syndrome); Hypothyroidism, unspecified type Start: 08-05-2022 End: 08-05-2022 Preprocedural examination done [facility] Work Phone: Pre Anesthesia Start: 08-04-2022 ambulatory Aline David RN Orthopaed ics Start: 07-26-2022 AUDIT Oswaldo Grewal Work Phone: [facility] [place] [address] [place] Work Phone: Start: 06-29-2022 End: 06-29-2022 ambulatory MARY KATE Bhardwaj Work Phone: [facility] Work Phone: Start: 06-29-2022 End: 06-29-2022 Patient encounter procedure MARY KATE Bhardwaj Work Phone: [facility] [place] Start: 06-28-2022 End: 06-28-2022 ambulatory MARY KATE Bhardwaj Work Phone: [facility] Work Phone: Start: 06-28-2022 End: 06-28-2022 Patient encounter procedure MARY KATE Bhardwaj Work Phone: [facility] [place] Start: 06-02-2022 End: 06-02-2022 Admission to same day surgery center MARY KATE Bhardwaj Work Phone: [facility] [place] Start: 05-31-2022 End: 05-31-2022 ambulatory MARY KATE Bhardwaj Work Phone: [facility] Work Phone: Start: 05-31-2022 End: 05-31-2022 Patient encounter procedure MARY KATE Bhardwaj Work Phone: [facility]-Pre-Surgical Testing Start: 05-31-2022 End: 05-31-2022 Patient encounter procedure Violet Combs MD Work Phone: Orthopaedics Comment on above: S/P right unicompart mental knee replacement (Primary Dx); Primary osteoarthritis of right knee; Pre-op testing; MRSA (methicillin resistant Staphylococcus aureus) Start: 05-31-2022 End: 05-31-2022 Patient encounter status Violet Combs MD Work Phone: Orthopaedics Start: 05-31-2022 End: 05-31-2022 Subsequent hospital visit by physician Ricky Combs 1 Work Phone: Radiology Comment on above: S/P right unicompart mental knee replacement [Z96.651] Start: 05-19-2022 End: 05-19-2022 ambulatory MARY KATE Bhardwaj Work Phone: [facility] Work Phone: Start: 05-19-2022 End: 05-19-2022 Patient encounter procedure MARY KATE Bhardwaj Work Phone: [facility]-Pre-Surgical Testing Start: 05-13-2022 Phys/qhp telephone evaluation 21-30 min Oswaldo Grewal Work Phone: [facility] Work Phone: Start: 05-13-[address] Oswaldo Grewal Facility:[id number] Start: 04-01-2022 Office outpatient vi sit 25 minutes Oswaldo Grewal Work Phone: -[facility] 250 DO Work Phone: Start: 04-01-[address] Josep Perdomo Facility: Start: 04-01-2022 Telephone encounter Violet Combs MD Work Phone: Orthopaedics Comment on above: Forms (Extend FMLA) Start: 03-25-2022 End: 03-26-[address] WAHL LISTED REQUEST Facility:H1 Start: 03-19-2022 End: 03-20-2022 Evaluation and management of inpatient Lashon Longoria [facility] C[facility] Rm 09 Start: 03-18-2022 AUDIT Oswaldo Grewal Work Phone: ER-Uarnzbwhsu-NNI [facility] [address] [place] Work Phone: Start: 03-18-2022 End: 03-19-2022 ambulatory NOEMI DANIELS Facility:H1 Start: 03-17-2022 Chart Update Oswaldo Grewal Work Phone: DT-Jsrrgambnz-NJA [facility] [address] [place] Work Phone: Start: 03-12-2022 End: 03-13-[address] DOCTOR JANSEN Facility:H1 Start: 03-08-2022 Current tobacco non- user cad cap copd pv dm Oswaldo Grewal Work Phone: VK-Hbbolznwta-OAX [facility] [address] [place] Work Phone: Start: 03-02-2022 End: 03-02-2022 Patient encounter procedure MARY KATE Bhardwaj Work Phone: [facility] [place] Start: 02-25-2022 AUDIT Oswaldo Grewal Work Phone: SI-Ythfdauues-VLQ [facility] [address] [place] Work Phone: Start: 02-22-2022 End: 02-22-2022 ambulatory Kindra Kathryn Other [facility] Other Start: 02-22-2022 Office outpatient vi sit 25 minutes Kindra Peralta [facility] [place] Start: 02-02-2022 Chart Update Oswaldo Conroy Grewal Work Phone: [facility] 250 DO Work Phone: Start: 02-02-2022 [facility]: Josep Per[facility]o, Status: Pen, Time: 12:00 PM Oswaldo Grewal Work Phone: [facility] 250 DO Work Phone: Start: 02-02-2022 [facility]: Josep Per[facility]o, Status: Pen, Time: 10:00 AM Oswaldo Conroy Grewal Work Phone: [facility] 250 DO Work Phone: Start: 02-02-2022 End: 02-02-2022 Admission to same day surgery center MARY KATE Bhardwaj Work Phone: [facility]-Architectural Representative Start: 02-01-2022 Chart Update Oswaldo Grewal Work Phone: [facility] 250 DO Work Phone: Start: 01-29-2022 End: 01-29-2022 Patient encounter procedure DECORATION CHECKER Yajairaamado Bhardwaj Work Phone: [facility] Fgr-Zib-Fbiudpnp Testing Start: 12-23-2021 Office consultation new/estab patient 80 min Oswaldo Grewal Work Phone: [facility] 250 DO Work Phone: Start: 12-21-2021 ambulatory Aline David RN Orthopaed ics Start: 12-11-2021 Telephone encounter Yudith Mercedes APRN.CNP Work Phone: Pre Anesthesia Comment on above: Results Start: 12-09-2021 End: 12-09-2021 Subsequent hospital visit by physician Ricky Combs 1 Work Phone: Radiology Comment on above: S/P right unicompart mental knee replacement [Z96.651] Start: 09-07-2021 End: 09-07-2021 ambulatory Kindra Peralta Other [facility] Other Start: 09-07-2021 Office outpatient vi sit 15 minutes Kindra Peralta [facility] [place] Start: 08-03-2021 End: 08-03-2021 [...] Start: 02-01-2020 End: 02-01-2020 ambulatory Violet Combs Facility:[facility] Patient encounter status Oswaldo Grewal Work Phone: [facility] 250 DO Work Phone: Procedures Date Procedure Procedure Detail Performing Clinician Start: 03-19-2025 Plain X-ray of left hand Oswaldo Grewal MD Work Phone: Start: 02-13-2025 Plain X-ray of left hand Oswaldo Grewal MD Work Phone: Start: 02-04-2025 End: 02-04-2025 Echo tthrc r-t 2d w/wom-mode compl spec&colr d Generic External Data Provider Start: 01-31-2025 Hemoglobin glycosylated a1c Guerline Obrien SIDING COREBOARD INSPECTOR Work Phone: Start: 08-03-2024 Hemoglobin glycosylated a1c Noemi Argueta SIDING COREBOARD INSPECTOR Work Phone: Start: 03-30-2024 End: 03-30-2024 Hemoglobin glycosylated a1c Noemi Argueta SIDING COREBOARD INSPECTOR Work Phone: Start: 03-24-2024 ALL CBC WITH AUTO DIFF Generic External Data Provider Start: 07-29-2023 Radiologic examination knee 3 views Lucas Scotch PA-C Work Phone: Start: 03-14-2023 Mammography Guerline Shawn SIDING COREBOARD INSPECTOR Work Phone: Start: 02-28-2023 Radiologic examination knee [...] MD Work Phone: Start: 03-20-2022 Echocardiography Oswaldo Grewal Work Phone: Start: 03-19-2022 Echocardiography Oswaldo A Grewal Work Phone: Start: 02-02-2022 CL [facility] COR Angio (Right) MARY KATE Ba iepert Work Phone: Start: 08-03-2021 Radiologic examination knee 3 views Lucas Scotch PA-C Work Phone: Start: 03-27-2021 History of operative procedure on knee S/P right unicompartmental knee replacement Yudith Hobson DECORATION CHECKER.TRUSS DRIVER HELPER Work Phone: Start: 03-27-2021 Radiologic examination knee 3 views Lucas Mildred LAY Work Phone: Start: 02-02-2021 Radiologic exam knee complete 4/more views Violet Combs MD Work Phone: Start: 02-27-2020 Radiologic examination knee 3 views Violet Combs MD Work Phone: Start: 01-25-2018 Colonoscopy Guerline Obrien SIDING COREBOARD INSPECTOR Work Phone: Start: 07-18-2015 Total colonoscopy Oswaldo Conroy Grewal Work Phone: Start: 07-03-2014 H/O: artificial joint S/P TKR o/90 days Yudith Hobson DECORATION CHECKER.TRUSS DRIVER HELPER Work Phone: Arthroplasty of knee Oswaldo Conroy Grewal Work Phone: Laser assisted in si tu keratomileusis Oswaldo Conroy Grewal Work Phone: Laser gonioplasty Oswaldo Conroy Ba xter Work Phone: Replacement of aorti c valve Oswaldo Conroy Grewal Work Phone: SARS Antigen (LFIA) DECORATION CHECKER Car socorro SiVerionepert Work Phone: SARS Antigen (LFIA) DECORATION CHECKER Car socorro [employer] Work Phone: Surgical procedure o n eye proper Oswaldo A Grewal Work Phone: Plan of Treatment Date Care Activity Detail Author Start: 2036 RSV Vaccine (1 - 1-dose 75+ series) RSV Vaccine (1 - 1-dose 75+ series) [facility] Start: 01-08-2035 DTaP/Tdap/Td Vaccines (2 - Td or Tdap) DTaP/Tdap/Td Vaccines (2 - Td or Tdap) [facility] Start: 01-26-2028 Screening for malignant neoplasm of colon [facility] Start: 04-11-2026 End: 04-11-2026 Patient encounter procedure 04/11/2026 9:50 AM EDT Office Visit [facility] [address] [place] [address] Josep Perdomo MD [address] [place] [address] [facility] Start: 02-17-2026 DIABETES SCREEN DIABETES SCREEN [facility] Start: 02-17-2026 Diabetes Screening Diabetes Screening [facility] Start: 01-31-2026 Screening for malignant neoplasm of cervix Cervical Cancer Screening [facility] Comment on above: Postponed from 1991 (Patient Refus ed) Start: 08-20-2025 DIABETES SCREEN DIABETES SCREEN [facility] Start: 08-05-2025 DIABETES SCREEN DIABETES SCREEN [facility] Start: 08-03-2025 Hemoglobin A1c measurement Diabetes: Hemoglobin A1C [facility] Start: 08-01-2025 End: 08-01-2025 Patient encounter procedure [facility] Start: 06-14-2025 Screening for malignant neoplasm of breast Mammogram [facility] Start: 03-30-2025 Urine screening for protein Diabetes: Urine Protein Screening [facility] Start: 03-20-2025 Diabetes mellitus screening Diabetes Screening [facility] Start: 03-19-2025 Plain X-ray of left hand XR hand LT min 3V* [facility] Start: 03-19-2025 XR Hand - left GE 3 Views [facility] Start: 03-18-2025 Influenza vaccination Influenza Vaccine (#1) [facility] Start: 03-16-2025 End: 03-16-2026 US Heart Transthoracic Transthoracic Echo Complete Echocardiography Routine Essential hypertension, benign S/P TAVR (transcatheter aortic valve replacement) Expected: 03/16/2025 (Approximate), Expires: 03/16/2026 [facility] Work Phone: Comment on above: Expected: 03/16/2025 (Approximate), Expi res: 03/16/2026 Start: 03-15-2025 End: 03-15-2026 Alanine aminotransferase [Enzymatic activity/volume] in Serum or Plasma by With P-5'-P Alanine Aminotransferase Lab Routine Mixed hyperlipidemia Expected: 03/15/2025 (Approximate), Expires: 03/15/2026 [facility] Service Area Work Phone: Comment on above: Expected: 03/15/2025 (Approximate), Expi res: 03/15/2026 Start: 03-15-2025 End: 03-15-2026 Aspartate aminotransferase [Enzymatic activity/volume] in Serum or Plasma by With P-5'-P Aspartate Aminotransferase Lab Routine Mixed hyperlipidemia Expected: 03/15/2025 (Approximate), Expires: 03/15/2026 [facility] Work Phone: Comment on above: Expected: 03/15/2025 (Approximate), Expi res: 03/15/2026 Start: 03-15-2025 End: 03-15-2026 Basic metabolic 2000 panel - Serum or Plasma Basic Metabolic Panel Lab Routine Essential hypertension, benign S/P TAVR (transcatheter aortic valve replacement) Expected: 03/15/2025 (Approximate), Expires: 03/15/2026 [facility] Work Phone: Comment on above: Expected: 03/15/2025 (Approximate), Expi res: 03/15/2026 Start: 03-15-2025 End: 03-15-2026 Lipid 1996 panel - Serum or Plasma Lipid Panel Lab Routine Mixed hyperlipidemia Expected: 03/15/2025 (Approximate), Expires: 03/15/2026 [facility] Work Phone: Comment on above: Expected: 03/15/2025 (Approximate), Expi res: 03/15/2026 Start: 03-15-2025 End: 03-15-2025 Patient encounter procedure 03/15/2025 9:00 AM EDT Office Visit [facility] [address] [place] [address] Josep Perdomo MD [address] [place] [address] [facility] Start: 02-28-2025 End: 02-28-2025 Patient encounter procedure 02/28/2025 8:30 AM EDT Office Visit [facility] [place] [facility] [address] [facility] [address] [place] [address] Guerline Amezcua APRN-TRUSS DRIVER HELPER [address] [place] [address] [facility] [place] [facility] Start: 02-22-2025 End: 02-22-2025 Patient encounter procedure 02/22/2025 8:30 AM EDT Office Visit [facility] [address] [place] [address] Valentina Gregg MD [address], [place] [id number] [facility] Start: 02-20-2025 Glaucoma screening Diabetes: Retinopathy Screening [facility] Start: 02-13-2025 Plain X-ray of left hand XR hand LT min 3V* [facility] Start: 02-13-2025 XR Hand - left GE 3 Views [facility] Start: 01-31-2025 End: 01-31-2025 Patient encounter procedure [facility] Start: 12-09-2024 Diabetes mellitus screening Diabetes Screening [facility] Start: 12-09-2024 DIABETES SCREEN DIABETES SCREEN [facility] Start: 11-16-2024 End: 11-16-2024 Patient encounter procedure [facility] Comment on above: Arrived Start: 11-01-2024 Hemoglobin A1c measurement Diabetes: Hemoglobin A1C [facility] Start: 10-03-2024 End: 10-03-2024 Patient encounter procedure 10/03/2024 8:30 AM EDT Office Visit [facility] [address] [facility] [address] [place] [address] Gretel Barajas, SIDING COREBOARD INSPECTOR [address], [address] [place] [address] [facility] Start: 09-22-2024 Screening for malignant neoplasm of cervix Cervical Cancer Screening [facility] Comment on above: Postponed from 1991 (Patient [...] [facility] [address] [facility] [address] [place] [phone] Valentina Gregg MD [address] [facility] [address] [place] [id number] Arrived [facility] Comment on above: Arrived Start: 06-29-2024 Hemoglobin A1c measurement Diabetes: Hemoglobin A1C [facility] Start: 06-29-2024 End: 06-29-2024 Patient encounter procedure 06/29/2024 8:30 AM EST Office Visit [facility] [address] [address] Valentina Gregg MD [address] [facility] [address] [place] [address] [facility] Start: 06-20-2024 End: 06-20-2024 Patient encounter procedure [facility] Comment on above: Arrived Start: 06-18-2024 End: 03-30-2025 CBC W Auto Differential panel - Blood CBC auto differential Lab Routine Anemia, unspecified type Expected: 06/18/2024 (Approximate), Expires: 03/30/2025 [facility] Work Phone: Comment on above: Expected: 06/18/2024 (Approximate), Expi res: 03/30/2025 Start: 06-18-2024 End: 03-30-2025 Cobalamin (Vitamin B12) [Mass/volume] in Serum or Plasma Vitamin B12 Lab Routine Anemia, unspecified type Expected: 06/18/2024 (Approximate), Expires: 03/30/2025 [facility] Comment on above: Expected: 06/18/2024 (Approximate), Expi res: 03/30/2025 Start: 06-18-2024 End: 03-30-2025 Ferritin [Mass/volume] in Serum or Plasma Ferritin Lab Routine Anemia, unspecified type Expected: 06/18/2024 (Approximate), Expires: 03/30/2025 [facility] Comment on above: Expected: 06/18/2024 (Approximate), Expi res: 03/30/2025 Start: 06-18-2024 End: 03-30-2025 Folate [Mass/volume] in Serum or Plasma Folate Lab Routine Anemia, unspecified type Expected: 06/18/2024, Expires: 03/30/2025 [facility] Comment on above: Expected: 06/18/2024, Expires: Start: 06-18-2024 End: 03-30-2025 Iron and Iron binding capacity panel - Serum or Plasma Iron and TIBC Lab Routine Anemia, unspecified type Expected: 06/18/2024 (Approximate), Expires: 03/30/2025 [facility] Comment on above: Expected: 06/18/2024 (Approximate), Expi res: 03/30/2025 Start: 06-18-2024 End: 03-30-2025 Magnesium [Mass/volume] in Serum or Plasma Magnesium Lab Routine Hypomagnesemia Expected: 06/18/2024 (Approximate), Expires: 03/30/2025 [facility] Comment on above: Expected: 06/18/2024 (Approximate), Expi res: 03/30/2025 Start: 06-06-2024 End: 06-06-2024 Patient encounter procedure [facility] Comment on above: Arrived Start: 05-29-2024 End: 05-29-2024 Patient encounter procedure [facility] Start: 05-15-2024 End: 05-15-2024 Patient encounter procedure 05/15/2024 9:30 AM EDT Office Visit [facility] [address] [place] [address] Bin Bradford, DPM FACFAS [address] [place] [address] [facility] Start: 04-21-2024 Yearly Adult Physical Yearly Adult Physical [facility] Start: 03-30-2024 End: 03-30-2024 Patient encounter procedure 03/30/2024 8:40 AM EDT Office Visit [facility] [address] [place] [phone] Noemi Argueta NP [address] [place] [address] [facility] Start: 03-24-2024 End: 03-24-2024 Patient encounter procedure 03/24/2024 8:40 AM EDT Office Visit [facility] [address] [facility] [address] [place] [phone] Valentina Gregg MD [address] [facility] [address] [address] [facility] Start: 03-18-2024 Covid-19 Vaccine ( season) Covid-19 Vaccine ( season) [facility] Start: 03-18-2024 Covid-19 Vaccine ( season) Covid-19 Vaccine ( season) [facility] Start: 03-18-2024 Influenza [facility] Start: 03-16-2024 End: 03-16-2025 Alanine aminotransferase [Enzymatic activity/volume] in Serum or Plasma by With P-5'-P Alanine Aminotransferase Lab Routine Mixed hyperlipidemia Expected: 03/16/2024 (Approximate), Expires: 03/16/2025 [facility] Service Area Work Phone: Comment on above: Expected: 03/16/2024 (Approximate), Expi res: 03/16/2025 Start: 03-16-2024 End: 03-16-2025 Aspartate aminotransferase [Enzymatic activity/volume] in Serum or Plasma by With P-5'-P Aspartate Aminotransferase Lab Routine Mixed hyperlipidemia Expected: 03/16/2024 (Approximate), Expires: 03/16/2025 [facility] Work Phone: Comment on above: Expected: 03/16/2024 (Approximate), Expi res: 03/16/2025 Start: 03-16-2024 End: 03-16-2025 Basic metabolic 2000 panel - Serum or Plasma Basic Metabolic Panel Lab Routine Essential hypertension, benign Expected: 03/16/2024 (Approximate), Expires: 03/16/2025 [facility] Work Phone: Comment on above: Expected: 03/16/2024 (Approximate), Expi res: 03/16/2025 Start: 03-16-2024 End: 03-16-2025 Lipid 1996 panel - Serum or Plasma Lipid Panel Lab Routine Mixed hyperlipidemia Expected: 03/16/2024 (Approximate), Expires: 03/16/2025 [facility] Work Phone: Comment on above: Expected: 03/16/2024 (Approximate), Expi res: 03/16/2025 Start: 03-16-2024 End: 03-16-2024 Patient encounter procedure 03/16/2024 10:10 AM EDT Office Visit [facility] [address] [id number] Josep Perdomo MD 703 [facility] 2, [place] [address] [place] [id number] [facility] Start: 03-14-2024 Screening for malignant neoplasm of breast Mammogram [facility] Start: 12-24-2023 Hemoglobin A1c measurement Diabetes: Hemoglobin A1C [facility] Start: 07-18-2023 Depression Assessment Depression Assessment [facility] Start: 06-21-2023 FUV, Provider: Josep Perdomo, Status: Pen, Time: 1:50 PM FUV, Provider: Josep Perdomo, Status: Pen, Time: 1:50 PM [facility] 250 DO Work Phone: Start: 06-08-2023 Urine screening for protein Diabetes: Urine Protein Screening [facility] Start: 03-18-2023 Covid-19 Vaccine () Covid-19 Vaccine () [facility] Start: 03-18-2023 Influenza vaccination [facility] Start: 03-17-2023 Patient encounter procedure [facility] [place] [id number] [facility] [id number] Start: 17-Mar-2023 9:00 Amanda Saucedo [facility] [place] Start: 03-17-2023 ANUPAMA, Provider: Amanda Saucedo, Status: Pen, Time: 9:00 AM VIRFUVPRASHANTHE, Provider: Amanda Saucedo, Status: Pen, Time: 9:00 AM [place] [address] [place] Work Phone: Start: 01-07-2023 NURSEVST, Provider: NAJMA VIRAMONTES POTATO CHIP PROCESSING SUPERVISOR 1,[id number], Status: Pen, Time: 10:00 AM NURSEVST, Provider: NAJMA VIRAMONTES POTATO CHIP PROCESSING SUPERVISOR 1,[id number], Status: Pen, Time: 10:00 AM [facility] 250 DO Work Phone: Start: 11-30-2022 NURSEVST, Provider: NAJMA VIRAMONTES POTATO CHIP PROCESSING SUPERVISOR 1,[id number], Status: Pen, Time: 1:00 PM NURSEVST, Provider: NAJMA VIRAMONTES POTATO CHIP PROCESSING SUPERVISOR 1,[id number], Status: Pen, Time: 1:00 PM [facility] 250 DO Work Phone: Start: 10-06-2022 FUV, Provider: Josep Perdomo, Status: Pen, Time: 3:50 PM FUV, Provider: Josep Perdomo, Status: Pen, Time: 3:50 PM [facility] 250 DO Work Phone: Start: 08-22-2022 End: 10-22-2022 TYPE AND SCREEN,30 DAY TYPE AND SCREEN,30 DAY Blood Bank Routine Pre-op testing Expected: 08/22/2022 (Approximate), Expires: 10/22/2022 [facility] Work Phone: Comment on above: Expected: 08/22/2022 (Approximate), Expi res: 10/22/2022 Start: 08-19-2022 End: 10-19-2022 Bacteria identified in Urine by Culture URINE CULTURE Microbiology Routine Pre-op testing Expected: 08/19/2022 (Approximate), Expires: 10/19/2022 [facility] Work Phone: Comment on above: Expected: 08/19/2022 (Approximate), Expi res: 10/19/2022 Start: 08-19-2022 End: 10-19-2022 STAPH AUREUS PCR STAPH AUREUS PCR Lab Routine MRSA (methicillin resistant Staphylococcus aureus) Expected: 08/19/2022, Expires: 10/19/2022 [facility] Work Phone: Comment on above: Expected: 08/19/2022, Expires: Start: 07-18-2022 DEPRESSION ASSESSMENT DEPRESSION ASSESSMENT [facility] Start: 06-02-2022 End: 06-02-2022 [facility] Start: 06-01-2022 End: 08-01-2022 Basic metabolic 2000 panel - Serum or Plasma BASIC METABOLIC PNL Lab Routine Pre-op testing Expected: 06/01/2022, Expires: 08/01/2022 [facility] Work Phone: Comment on above: Expected: 06/01/2022, Expires: Start: 06-01-2022 End: 08-01-2022 CBC W Auto Differential panel - Blood CBC + DIFF Lab Routine Pre-op testing Expected: 06/01/2022, Expires: 08/01/2022 [facility] Work Phone: Comment on above: Expected: 06/01/2022, Expires: 3 Start: 06-01-2022 End: 08-01-2022 Hemoglobin A1c in Blood HGB A1C Lab Routine Pre-op testing Expected: 06/01/2022, Expires: 08/01/2022 [facility] Work Phone: Comment on above: Expected: 06/01/2022, Expires: 3 Start: 06-01-2022 End: 08-01-2022 Urinalysis complete panel - Urine URINALYSIS, WITH MICROSCOPIC Lab Routine Pre-op testing Expected: 06/01/2022, Expires: 08/01/2022 [facility] Work Phone: Comment on above: Expected: 06/01/2022, Expires: 3 Start: 05-13-2022 VIRFUVCARINA, Provider: Abdiaziz Nash, Status: Pen, Time: 3:00 PM VIRFURYAN, Provider: Abdiaziz Nash, Status: Pen, Time: 3:[address] [facility] 250 DO Work Phone: Start: 04-22-2022 Patient encounter procedure [facility] [place] Start: 04-22-2022 VIRSINDI, Provider: Abdiaziz Nash, Status: Pen, Time: 9:00 AM VIRFUVHOME, Provider: Abdiaziz Nash, Status: Pen, Time: 9:00 AM [facility] 205 [place] Work Phone: Start: 04-01-2022 FUV, Provider: Josep Perdomo, Status: Pen, Time: 2:40 PM FUV, Provider: Josep Perdomo, Status: Pen, Time: 2:40 PM [facility] Work Phone: Start: 04-01-2022 Patient encounter procedure [facility] [place] Start: 03-19-2022 End: 03-20-2023 dexmedeTOMIDine 400 microgram/ NaCL 0.9% 100 mL Premix Infusion with Bolus from Bag . ; (PRECEDEX)IntraVenous Initial Dose Rate: 0.2 mcg/kg/hrMAX DOSE Rate = 1.5 mcg/kg/hrTitration Goal 1: RASS between 0 and -2Bidirectional Titration Dose: 25 % Every 30 MinutesNotes from Pharmacy: Initial DOSE Rate = 0.2 mcg/kg/hr = 5.85 mL/hr. Start: 19-Mar-2022 End: 19-Mar-2023 Ordered: 19-Mar-2022 Sachin Brannon [facility] Start: 03-19-2022 End: 03-20-2023 [facility] Comment on above: 1. Dilute 1.3 mL [...] When tolerating PO Start: 03-19-2022 End: 03-20-2023 [facility] Start: 03-19-2022 End: 03-20-2023 [facility] Start: 03-18-2022 Influenza vaccination [facility] Start: 02-02-2022 [facility], Provider: Josep Perdomo, Status: Pen, Time: 12:00 PM [facility], Provider: Josep Perdomo, Status: Pen, Time: 12:00 PM [facility] 250 DO Work Phone: Start: 02-02-2022 [facility] Work Phone: Start: 02-02-2022 [facility], Provider: Josep Perdomo, Status: Pen, Time: 10:00 AM [facility], Provider: Josep Perdomo, Status: Pen, Time: 10:00 AM [facility] 250 DO Work Phone: Start: 11-05-2021 COVID-19 VACCINE (4 - Booster for Moderna series) COVID-19 VACCINE (4 - Booster for Moderna series) [facility] Start: 09-01-2021 COVID-19 VACCINE (4 - Booster for Moderna series) COVID-19 VACCINE (4 - Booster for Moderna series) [facility] Start: 09-01-2021 COVID-19 VACCINE (4 - Moderna series) COVID-19 VACCINE (4 - Moderna series) [facility] Start: 07-18-2021 DEPRESSION ASSESSMENT DEPRESSION ASSESSMENT [facility] Start: 2021 RSV High Risk: (Elderly (60+) or Population) (1 - Risk 60-74 years 1-dose series) RSV High Risk: (Elderly (60+) or Population) (1 - Risk 60-74 years 1-dose series) [facility] Start: 2021 RSV patients and/or patients aged 60+ years (1 - 1-dose 60+ series) RSV patients and/or patients aged 60+ years (1 - 1-dose 60+ series) [facility] Start: 2021 RSV Vaccine (1 - 1-dose 60+ series) RSV Vaccine (1 - 1-dose 60+ series) [facility] Start: 2011 Pneumococcal vaccination Pneumococcal Vaccine (1 of 1 - PCV) [facility] Start: 2011 SHINGRIX VACCINE (1 of 2) SHINGRIX VACCINE (1 of 2) [facility] Start: 2011 Zoster Vaccines (1 of 2) Zoster Vaccines (1 of 2) [facility] Start: 08-13-2010 DTaP/Tdap/Td Vaccines (1 - Tdap) DTaP/Tdap/Td Vaccines (1 - Tdap) [facility] Start: 08-13-2010 Urine microalbumin profile DTaP,Tdap,Td Vaccine (1 - Tdap) [facility] Start: 2006 COLOGUARD (FIT-DNA) COLOGUARD (FIT-DNA) [facility] Start: 2006 Colonoscopy COLONOSCOPY [facility] Start: 2006 COLORECTAL CANCER SCREENING COLORECTAL CANCER SCREENING [facility] Start: [address] COLONOGRAPHY [facility] Start: 2006 FECAL OCCULT BLOOD FECAL OCCULT BLOOD [facility] Start: 2006 Lipid panel Lipid Screening [facility] Start: 2006 LIPID SCREEN LIPID SCREEN [facility] Start: 2006 Screening for malignant neoplasm of colon [facility] Start: 2006 SIGMOIDOSCOPY SIGMOIDOSCOPY [facility] Start: 2001 Mammography MAMMOGRAM [facility] Start: 2001 Screening for malignant neoplasm of breast [facility] Start: 1991 HPV TESTING HPV TESTING [facility] Start: 1991 Screening for malignant neoplasm of cervix [facility] Start: 1982 PAP TESTING PAP TESTING [facility] Start: 1982 Screening for malignant neoplasm of cervix [facility] Start: 1980 Urine microalbumin profile DTAP,TDAP,TD (1 - Tdap) [facility] Start: 1979 ANNUAL PCP TEAM CHRONIC DISEASE VISIT ANNUAL PCP TEAM CHRONIC DISEASE VISIT [facility] Start: 1979 Anxiety Screening Anxiety Screening [facility] Start: 1979 BP CONTROLLED (<130/80) BP CONTROLLED (<130/80) [facility] Start: 1979 Depression Screening Depression Screening [facility] Start: 1979 HEPATITIS C SCREENING HEPATITIS C SCREENING [facility] Start: 1979 Hepatitis C screening Hepatitis C Screening [facility] Start: 1979 HIV SCREENING HIV SCREENING [facility] Start: 1979 HIV screening HIV Screening [facility] Start: 1973 Adult depression screening assessment DEPRESSION SCREENING [facility] Start: 1962 MMR Vaccines (1 of 1 - Standard series) MMR Vaccines (1 of 1 - Standard series) [facility] Start: 1961 HIV screening HIV Screening [facility] Start: 1961 Lipid panel Lipid Panel [facility] Start: 1961 Screening for malignant neoplasm of colon [facility] Start: 1961 Thyroid stimulating hormone measurement TSH Level [facility] Start: 1961 Yearly Adult Physical Yearly Adult Physical [facility] MG Breast - bilatera l Screening Bilateral screening mammogram Imaging Routine Encounter for screening mammogram for breast cancer Ordered: 01/31/2025 [facility] [employer] Work Phone: Comment on above: Ordered: 01/31/2025 Patient Education Aortic Valve R eplacement, Transcatheter (DC) [facility] Work Phone: Patient referral [facility] Work Phone: Ther px 1/> areas ea ch 15 min aqua ther w/xerss [employer]QU[employer] COMMUNITY EXERCISE Procedures Routine Status post revision of total knee, right Ordered: 10/15/2022 [facility] Work Phone: Comment on above: Ordered: 10/15/2022 [facility] Immunizations Immunization Date Immunization Notes Care Provider Spencer bryson 01-08-2025 tetanus toxoid, redu sabrina diphtheria toxoid, and acellular pertussis vaccine, adsorbed Guerline Lause SIDING COREBOARD INSPECTOR Work Phone: [facility] 03-30-2024 Influenza, injectabl e, Madin [place] Canine Kidney, preservative free, quadrivalent Noemi Warchol SIDING COREBOARD INSPECTOR Work Phone: [facility] 03-30-2024 influenza virus vaccine, unspecified formulation Guerline Lause SIDING COREBOARD INSPECTOR Work Phone: [facility] 07-07-2021 Pfizer-BioNTech COVID-19 Vacc 30 MCG/0.3ML Intramuscular Suspension Oswaldo A Grewal Work Phone: [facility] 10-30-2020 Moderna COVID-19 Vaccine 100 MCG/0.5ML Intramuscular Suspension Oswaldo A Grewal Work Phone: [facility] 10-29-2020 Moderna SARS-CoV-2 Vaccination Guerline Lause SIDING COREBOARD INSPECTOR Work Phone: [facility] 10-03-2020 Moderna COVID-19 Vaccine 100 MCG/0.5ML Intramuscular Suspension Oswaldo A Grewla Work Phone: [facility] 10-02-2020 Moderna SARS-CoV-2 Vaccination Guerline Lause SIDING COREBOARD INSPECTOR Work Phone: [facility] 05-15-2014 influenza virus vaccine, split virus (incl. purified surface antigen) Guerline Obrien SIDING COREBOARD INSPECTOR Work Phone: [facility] 05-15-2014 influenza virus vaccine, unspecified formulation Lucas Levy PA-C Work Phone: [facility] 05-15-2013 seasonal influenza, intradermal, preservative free Guerline Obrien SIDING COREBOARD INSPECTOR Work Phone: [facility] 08-12-2010 tetanus and diphther ia toxoids, adsorbed, preservative free, for adult use (2 Lf of tetanus toxoid and 2 Lf of diphtheria toxoid) Guerline Obrien SIDING COREBOARD INSPECTOR Work Phone: [facility] Payers Date Payer Category Payer Managed Care (Private) [facility] [id number] 2022 Unknown 2021 Private Health Insurance [facility] [employer] [id number] 2021-Present [address] [address] [place] [address] PPO [id number] 2009 Private Health Insurance [id number] [id number] 1961 Unknown [id number] 2.16.840.1.588365.3.579. 2.593 1961 Unknown [id number] 2.16.840.1.572808.3.579. 2.593 1961 Unknown [id number] 2.16.840.1.088681.3.579. 2.593 1961 Unknown [id number] 2.16.840.1.840352.3.579. 2.593 1961 Unknown [id number] 2.16.840.1.884870.3.579. 2.593 1961 Unknown [id number] 2.16.840.1.753502.3.579. 2.356 1961 Unknown [id number] 2.16.840.1.063505.3.579. 2.356 1961 Unknown [id number] 2..840.1.818625.3.579. 2.356 1961 Unknown [id number] 2.840.1.357467.3.579. 2.356 1961 Unknown [id number] 2.840.1.553652.3.579. 2.356 1961 Unknown [id number] 2..840.1.149049.3.579. 2.356 1961 Unknown [id number] 2.840.1.318296.3.579. 2.718 1961 Unknown [id number] 2.840.1.348598.3.579. 2.1259 1961 Unknown [id number] 2.16840.1.183504.3.579. 2.1259 1961 Unknown [id number] 2.840.1.178049.3.579. 2.1259 1961 Unknown [id number] 2.16.840.1.601731.3.579. 2.1259 1961 Unknown [id number] 2.840.1.126475.3.579. 2.1259 1961 Unknown [id number] 2.16.840.1.085732.3.579. 2.1259 1961 Unknown [id number] 2.16.840.1.046434.3.579. 2.1259 1961 Unknown [id number] 2.16.840.1.423304.3.579. 2.1259 1961 Unknown [id number] 2.16.840.1.116208.3.579. 2.1259 1961 Unknown [id number] 2.16.840.1.488152.3.579. 2.1259 1961 Unknown [id number] 2.16.840.1.540963.3.579. 2.1259 1961 Unknown [id number] 2.16.840.1.993812.3.579. 2.1259 1961 Unknown [id number] 2.16.840.1.580008.3.579. 2.1246 1961 Unknown [id number] 2.16.840.1.889263.3.579. 2.1244 1959 Unknown [id number] 2.16.840.1.640438.19 1959 Unknown [id number] Self-pay Self Pay [id number] Unknown [employer] [id number] Unknown [employer] [id number] Social History Date Type Detail Facility Start: 06-12-2013 End: 01-09-2025 Tobacco smoking status NHIS Never smoked tobacco [facility] Start: 06-12-2013 End: 03-15-2025 Tobacco use and exposure Smokeless tobacco non-user [facility] Start: 02-05-2020 End: 12-09-2021 Alcohol intake Current non-drinker of alcohol (finding) [facility] Start: 02-05-2020 History SDOH Financial 5 [facility] Start: 02-05-2020 History SDOH Food Worry 1 [facility] Start: 02-05-2020 History SDOH Transpo rt Med 2 [facility] Start: 1960 Sex Assigned At Not on file [facility] Start: 01-28-2020 End: 03-16-2024 Exposure to SARS-CoV-2 (event) Not sure [facility] Start: 02-28-2023 End: 03-15-2025 Caffeine use Caffeine use [facility] Comment on above: 2-3 cups coffee ilsa y; Start: 02-28-2023 End: 03-15-2025 Sex Assigned At [facility] Start: 1960 Sex Assigned At Female F [facility] Tobacco smoking consumption unknown [facility] Start: 06-11-2022 How hard is it for y ou to pay for the very basics like food, housing, medical care, and heating Not hard at all [facility] (I/We) worried corazon er (my/our) food would run out before (I/we) got money to buy more. Never true [facility] Start: 09-09-2023 End: 03-15-2025 Alcohol intake Lifetime non-drinker (finding) [facility] Work Phone: How often to you hav e a drink containing alcohol? Never [facility] Start: 11-25-2022 Alcohol Comment caffeine: 1-2 cups per day coffee, tea [facility] Sex Female (finding) [facility] Medical Equipment Procedure Code Equipment Code Equipment Origin al Text Equipment Identifier Dates Omar Bn Co Hv 40g m - [id number] Start: 07-05-2013 Comment on above: Description: cobalt hv bone cement 40/20 Qct-Hu-L-Kind Implant - [id number] Start: 07-05-2013 Comment on above: Description: oxford twin pegged femoral Wip-Ts-I-Kind Implant - [id number] Start: 07-05-2013 Comment on above: Description: LIZA Peralta SERIES Insert Triathlon 5 10mm Tibial Bearing Condylar Stabilize Sterile Knee - [id number] Start: 02-04-2020 Baseplate Triathlon Tritanium 5 Tibial Knee - [id number] Start: 02-04-2020 Component Triathlon 33mm Tritanium 9mm Patellar Metal Backed Symmetric - [id number] Start: 02-04-2020 Component Triathlon 5 Pa Femoral Cruciate Retain Bead Knee Left - [id number] Start: 02-04-2020 Cement Simplex Bone High Viscosity - [id number] Start: 08-19-2022 Imp Knee Tib Ins Tri Sz5 11mm [id number] Start: 08-19-2022 Baseplate Triathlon 5 [place] Cocr Tibial Total Stabilize Cemented Knee - [id number] Start: 08-19-2022 Cement Simplex Bone High Viscosity - [id number] Start: 08-19-2022 Component Triathlon 33mm X3 9mm Patellar Symmetric Knee Superior - [id number] Start: 08-19-2022 Component Triathlon 5 Femoral Cemented Posterior Stabilize Knee Right - [id number] Start: 08-19-2022 Peg Triathlon Fixation Modular Distal Femur Knee - [id number] Start: 08-19-2022 Goals Date Patient Goal Desired Activity /State Functional Status Date Assessment Result Facility 01-31-2025 Patient Health Quest ionnaire 2 item (PHQ-2) [Reported] [facility] 02-02-2022 Functional status Patient at Baseline [facility] Work Phone: Functional observable [facility] Mental Status Date Assessment Result Facility 03-18-2022 Cognitive functi ons [id number] [facility] 02-02-2022 Cognitive function Cognitive Sta tus Patient at Baseline [facility] Work Phone: Clinical Notes 03-18-2012 to 03-15-2025 Josep Perdomo MD - 03/15/2025 9:00 AM EDTPatient InstructionsAttachmentsTelephone Encounter - Doris Plasencia - 02/26/2025 1:28 PM EDTTelephone Encounter - Doris Plasencia - 02/26/2025 1:28 PM EDT Note Date & Type Note Facility 03-15-2025 History of Presen t illness Narrative Chief Complaint Patient presents with Annual Exam 1 year follow up for Mixed hyperlipidemia Subjective Virgilio Johnson is a 65 y.o. female HPI Patient here for follow-up due to management for history of aortic valve disease status post TAVR 3 years ago, hypertension, hyperlipidemia and obesity. Since last time I saw her she denies any change in cardiac status or symptoms. She remains active. She denies chest pain, palpitation, lightheadedness, dizziness or syncope. Her last echocardiogram showed good valve function and normal LV systolic function. Assessment 1. Aortic stenosis status post TAVR back in 2021. Recent echo showed good valve function 2. Hypertension controlled with chlorthalidone and valsartan 3. Hyperlipidemia no recent lab 4. Obesity with BMI of 34 Plan 1. I advised patient to continue [...] other systems reviewed and are negative. Vitals: 03/15/25 0919 BP: 132/58 BP Location: Left arm Patient Position: Sitting Pulse: 60 Weight: 107 kg (236 lb) Height: 1.753 m (5' 9 ) Objective [...] Penicillins, and Timolol Current Medications Current Outpatient Medications Medication Instructions acetaminophen (TYLENOL) 500 mg, Every 6 hours PRN acetaZOLAMIDE (DIAMOX) 500 mg, 2 times daily amLODIPine (NORVASC) 10 mg, Daily aspirin 81 mg, Daily atorvastatin (LIPITOR) 10 mg, oral, Daily brimonidine (AlphaGAN) 0.2 % ophthalmic solution 1 drop, 2 times daily chlorthalidone (HYGROTON) 25 mg, oral, Daily dicyclomine (BENTYL) 20 mg, 2 times daily (0900,1400) latanoprost (Xalatan) 0.005 % ophthalmic solution 1 drop, Nightly levothyroxine (SYNTHROID, LEVOXYL) 100 mcg, Daily before breakfast loteprednol (Lotemax) 0.5 % ophthalmic suspension INSTILL 1 DROP INTO LEFT EYE TWICE A DAY DIRECTED lubricating eye drops ophthalmic solution 1 drop meloxicam (MOBIC) 7.5 mg, Daily rOPINIRole (REQUIP) 0.25 mg, See admin instructions rOPINIRole (REQUIP) 1 mg, Nightly valACYclovir (VALTREX) 500 mg, 2 times daily valsartan (DIOVAN) 320 mg, oral, Daily Assessment/Plan 1. S/P TAVR (transcatheter aortic valve replacement) Basic Metabolic Panel Basic Metabolic Panel 2. Essential hypertension, benign Follow Up In Cardiology Basic Metabolic Panel Follow Up In Cardiology chlorthalidone (Hygroton) 25 mg tablet Basic Metabolic Panel 3. Mixed hyperlipidemia Alanine Aminotransferase Aspartate Aminotransferase Lipid Panel Alanine Aminotransferase Aspartate Aminotransferase Lipid Panel 4. BMI 34.0-34.9,adult 5. Never smoked tobacco Scribe Attestation By signing my name below, Yue Harrison LPN, Scribe attest that this documentation has [...] discussion and plan. documented in this encounter [facility] Work Phone: 03-15-2025 Instructions Yue Hall LPN - 03/15/2025 9:00 AM EDT Please bring all medicines, vitamins, and herbal supplements with you when you come to the office. Prescriptions will not be filled unless you are compliant with your follow up appointments or have a follow up appointment scheduled as per instruction of your physician. Refills should be requested at the time of your visit. BMI was above normal measurement. Current weight: 107 kg (236 lb) Weight change since last visit (-) denotes wt loss 9 lbs Weight loss needed to achieve BMI 25: 67.1 Lbs Weight loss needed to achieve BMI 30: 33.3 Lbs Provided instructions on dietary changes Provided instructions on exercise. One year Labs Same medications. The following attachments cannot be sent through Care Everywhere.Diet and health (Kyrgyz)documented in this encounter [facility] Work Phone: 02-26-2025 Telephone encounter Note Called pt to RS no answer LMTCB [facility] 02-26-2025 Miscellaneous Notes Called pt to RS no answer LMTCB documented in this encounter [facility] 01-31-2025 History of Presen t illness Narrative Family Medicine Note Subjective: Chief Complaint: CIM HPI: Virgilio Johnson presents to the office today for chronic illness management visit. She is due for A1C check which will be completed in office today. She is also due for lab work which has been sent to [facility]. She is also requesting medication refills be sent to her pharmacy today. She denies further complaints or concerns at this time. Current Outpatient Medications: acetaZOLAMIDE (Diamox) 500 MG 12 hr capsule, TAKE 1 CAPSULE BY MOUTH TWICE A DAY DIRECTED, Disp: , Rfl: brimonidine (AlphaGAN P) 0.2 % ophthalmic solution, Administer 1 drop into both eyes in the morning and 1 drop before bedtime., Disp: , Rfl: chlorthalidone (Hygroton) 25 MG tablet, Take 25 mg by mouth Daily, Disp: , Rfl: dicyclomine (Bentyl) 20 MG tablet, Take 1 tablet (20 mg) by mouth in the morning and 1 tablet (20 mg) before bedtime., Disp: 60 tablet, Rfl: 5 gabapentin (Neurontin) 300 MG capsule, Take 1 capsule (300 mg) by mouth in the morning and 1 capsule (300 mg) in the evening and 1 capsule (300 mg) before bedtime., Disp: 270 capsule, Rfl: 1 latanoprost (Xalatan) 0.005 % ophthalmic solution, Administer 1 drop into both eyes at bedtime, Disp: , Rfl: levothyroxine (Synthroid, Levoxyl) 100 MCG tablet, TAKE 1 TABLET BY MOUTH EVERY MORNING BEFORE A MEAL, Disp: , Rfl: loteprednol (Lotemax) 0.5 % ophthalmic suspension, INSTILL 1 DROP INTO LEFT EYE TWICE A DAY DIRECTED, Disp: , Rfl: magnesium oxide (Mag-Ox) 400 [...] at bed, Disp: 180 tablet, Rfl: 11 valACYclovir (Valtrex) 1 g tablet, Take 1,000 mg by mouth Daily as directed, Disp: , Rfl: amLODIPine (Norvasc) 10 MG tablet, Take 1 tablet (10 mg) by mouth Daily, Disp: 90 tablet, Rfl: 1 atorvastatin (Lipitor) 10 MG tablet, Take 1 tablet (10 mg) by mouth Daily, Disp: 90 tablet, Rfl: 1 omeprazole (PriLOSEC) [address] capsule, Take 1 capsule (40 mg) by mouth in the morning. Take before meals. Do not crush or chew., Disp: 90 capsule, Rfl: 3 oxyCODONE (Roxicodone) 5 MG immediate release tablet, , Disp: , Rfl: prednisoLONE acetate (Pred-Forte) 1 % ophthalmic suspension, , Disp: , Rfl: predniSONE (Deltasone) 20 MG tablet, Take two tablets (40 mg) daily for five days, then take one tablet (20 mg) daily for five days. Take with food., Disp: 15 tablet, Rfl: 0 rOPINIRole (Requip) 1 MG tablet, Take 1 tablet (1 mg) by mouth in the morning and 1 tablet (1 mg) in the evening and 1 tablet (1 mg) before bedtime., Disp: 270 tablet, Rfl: 1 tiZANidine (Zanaflex) 4 MG tablet, Take 1 tablet (4 mg) by mouth at bedtime, Disp: 30 tablet, Rfl: 3 valsartan (Diovan) 320 MG tablet, Take 1 tablet (320 mg) by mouth Daily, Disp: 90 tablet, Rfl: 1 Medical History: Past Medical History: Diagnosis Date Arthritis Contact dermatitis bilateral eyelids-sinusitis Folliculitis RIGHT KNEE Glaucoma 2007 History of transcatheter aortic valve replacement (TAVR) 03/20/2022 Hypertension Irritable bowel disease Irritable bowel syndrome 2006 Osteoarthritis 2013 RLS (restless legs syndrome) Allergies: Allergies Allergen Reactions Brimonidine Unknown Dorzolamide [...] she has had PCN since then. Social History: Tobacco Use: Tobacco Use: Low Risk (01/31/2025) Patient History Smoking Tobacco Use: Never Smokeless Tobacco Use: Never Passive Exposure: Not on file Objective: Vitals: 01/31/25 0858 BP: 162/82 BP Location: Right arm Patient Position: Sitting Pulse: 74 Resp: 18 Temp: 97.3 F TempSrc: Temporal SpO2: 98% Weight: 238 lb Height: 5' 8 Physical Exam Vitals and nursing note reviewed. Constitutional: General: She is not in acute distress. Appearance: Normal appearance. She is not ill-appearing. HENT: Head: Normocephalic and atraumatic. Right Ear: External ear normal. Left Ear: External ear normal. Nose: Nose normal. Mouth/Throat: Mouth: Mucous membranes are moist. Eyes: Extraocular Movements: Extraocular movements intact. Pupils: Pupils are equal, round, and reactive to light. Cardiovascular: Rate and Rhythm: Normal rate. Pulses: Normal pulses. Heart sounds: No murmur heard. Pulmonary: Effort: Pulmonary effort is normal. Breath sounds: No wheezing, rhonchi or rales. Abdominal: General: Bowel sounds are normal. There is no distension. Tenderness: There is no abdominal tenderness. Musculoskeletal: Right wrist: Decreased range of motion. Cervical back: Normal range of motion. Comments: Wrist in cast Skin: General: Skin is warm and dry. Neurological: General: No focal deficit present. Mental Status: She is alert and oriented to person, place, and time. Psychiatric: Mood and Affect: Mood normal. Behavior: Behavior normal. Judgment: Judgment normal. Assessment: Assess/Plan Problem List Items Addressed This Visit Hypertriglyceridemia Relevant Medications atorvastatin (Lipitor) 10 MG tablet Medication as directed. Discussed importance of maintaining LDL at specified goal. Discussed risks associated with hyperlipidemia including stroke and heart attack. Medications as directed. Discussed dietary modifications, including decreasing red meat consumption, decreasing alcohol consumption, avoiding fried fatty foods and cakes, cookies, and sweets. Encouraged to increase fiber in diet and eat a diet rich in omega-3. Encouraged to exercise at least 150 minutes weekly. Barriers to the plan of care have been addressed. Obtain labs as directed and call our office if you have not received the lab results within one week. Follow up as directed. Type 2 diabetes mellitus without complication (HCC) - Primary Relevant Orders POCT glycosylated hemoglobin (Hb A1C) docked device (Completed) A1C readings reviewed with patient today in office. Results 5.8. Encouraged patient to continue working on lifestyle modifications with diet and exercise. Care plan was discussed with the patient today and reviewed changes to medications as well as A1c goals. Patient is to call with any questions or concerns. Patient voices understanding as well as risk for diabetes related complications if good glucose control is not obtained HTN (hypertension) Relevant Medications amLODIPine (Norvasc) 10 MG tablet Possible complications of uncontrolled hypertension include stroke, [...] consumption. Please take all medications as prescribed. Restless legs syndrome Relevant Medications rOPINIRole (Requip) 1 MG tablet Other Visit Diagnoses Encounter for screening mammogram for breast cancer Relevant Orders Bilateral screening mammogram Irritable bowel syndrome, unspecified type Relevant Medications valsartan (Diovan) 320 MG tablet Gastroesophageal reflux disease without esophagitis Relevant Medications omeprazole (PriLOSEC) [address] capsule The patient was advised on high acid food triggers such as caffeine products, fruits high in acid, spicy foods and to follow bland diet management measures for acute flare. Lifestyle changes include weight loss for overweight people; head-of-bed elevation; and avoidance of late-night eating if nocturnal symptoms are present. Take medication as prescribed. All questions answered. Please call the office with any other questions or concerns. Follow-up: Follow up in about 6 months (around 08/03/2025) for CIM . documented in this encounter [facility] 01-14-2025 Telephone encounter Note I sent the gabapentin 300 mg tid [facility] 01-14-2025 Miscellaneous Notes I sent the gabapentin 300 mg tid 01/14/25 pt requesting med refill be sent to [facility] pt asking for a 300 mg pill instead of 600 mg so pt doesn't have to cut pill in half pt states she takes 300 mg 3 times a day documented in this encounter [facility] 01-14-2025 Telephone encounter Note 01/14/25 pt requesting med refill be sent to [facility] pt asking for a 300 mg pill instead of 600 mg so pt doesn't have to cut pill in half pt states she takes 300 mg 3 times a day [facility] 01-09-2025 Evaluation note Diagnosis Onset Date Resolution Nondisplaced fracture of base of fifth metacarpal bone, left hand, initial acute January 09, 2025 2:00pm Nondisplaced fracture of base of fifth metacarpal bone, left hand, initial acute February 13, 2025 10:56am [facility] Work Phone: 1(457) 528-721106-25-2025 Evaluation note* Diagnosis Onset Date Resolution Status Admit Date Nondisplaced fracture of bas e of fifth metacarpal bone, left hand, initial acute January 09, 2025 2:00pm Nondisplaced fracture of bas e of fifth metacarpal bone, left hand, initial acute February 13, 2025 10:56am Nondisplaced fracture of bas e of fifth metacarpal bone, left hand, initial acute March 19, 2 025 4:09pm [facility] Work Phone: 1(898) 367-825305-02-2025 History of Present illness Narrative* Valentina Gregg MD - 11/16/2024 8:00 AM EDT Images from the original note were not [...] dermatitis bilateral eyelids-sinusitis Folliculitis RIGHT KNEE Glaucoma ([facility]/HCC) 2007 History of transcatheter aortic valve replacement (TAVR) 03/20/2022 Hypertension ([facility]/HCC) Irritable bowel disease Irritable bowel syndrome 2006 [...] Oriented to person, place and time. Recent andremote memory are intact. Speech is normal. Language [...] reflexes: Carrol's absent. Ankle clonus absent. Coordination Oncmmd-ur-kryt, rapid alternating movements and wunz-xh-gjmd normal bilaterally without dysmetria. Gait Normal casual, [...] by Valentina Gregg MD documented in this [facility]04-28-2025 Telephone encounter Note* Telephone Encounter - Jim Luna - 11/12/2024 3:37 PM EDT 11/12/24 pt requesting med refill be sent to [facility] [id number] Miscellaneous Notes* Telephone Encounter - Jim Luna - 11/12/2024 3:37 PM EDT 11/12/24 pt requesting med refill be sent to [facility] documented in this [facility]03-31-2025 Telephone encounter Note* Telephone Encounter - Fina Aguilera - 10/15/2024 10:20 AM EDT Patient states that she seen Noemi in September and she increased her Gabapentin to 600mg 3 times a day for a month and that she should call for refill after a month and go back to her Gabapentin 300mg 3 times a day. Liliam Garcia [facility] [id number] Miscellaneous Notes* Telephone Encounter - Fina Aguilera - 10/15/2024 10:20 AM EDT Patient states that she seen Noemi in September and she increased her Gabapentin to 600mg 3 times a day for a month and that she should call for refill after a month and go back to her Gabapentin 300mg 3 times a day. Liliam Garcia documented in this [facility]03-26-2025 Telephone encounter Note* Telephone Encounter - Heather Montoya - 10/10/2024 3:07 PM EDT Patient left message requesting refill of Ropinirole 0.25mg to be sent to [facility] in [place]. [facility] [id number] Miscellaneous Notes* Telephone Encounter - Heather Montoya - 10/10/2024 3:07 PM EDT Patient left message requesting refill of Ropinirole 0.25mg to be sent to [facility]. documented in this [facility]03-03-2025 History of Present illness Narrative* Noemi Argueta, [employer] - 09/17/2024 8:00 AM EST SUBJECTIVE Virgilio Johnson is a 64 y.o. female who presents with complaints of low back pain which radiates tothe left hip and down the left lateral [...] 1 drop into both eyes in the morningand 1 drop before bedtime., Disp: , Rfl: [...] by mouth in the morning and 1 tablet(400 mg) before bedtime., Disp: 180 tablet, Rfl: [...] by mouth in the morning and 1 tablet(600 mg) in the evening and 1 tablet (600 mg) before bedtime. - tiZANidine (Zanaflex) 4 MG tablet; Take 1 tablet (4 mg) by mouth every 8 (eight) hours if needed for muscle spasms for up to 10 days FOLLOW-UP Follow up in about 4 months (around 01/17/2025) for Next scheduled follow-up: CIM. documented in this encounterWashington [facility] HospitalEqoxsabicp95-49-2059 Instructions* Patient Instructions* Noemi Argueta NP - 09/17/2024 8:00 AM EST PATIENT EDUCATION: Low back pain Encouraged to follow up with meds, heat/ice, and exercises as provided. Encouraged to avoid strenuous activities that may worsen symptoms but continue with being physically active. Avoid laying/sitting for long periods of time as this will worsen muscle aches/spasms and back pain. Encouraged to usestretching. Core strengthening and proper lifting mechanics ar [...] Do not to take any other anti-inflammatories whileon steroid. documented in this encounterWashington County Memorial HospitalQokpqcrpsf90-45-0967 History of Present illness Narrative* Noemi Argueta NP - 08/03/2024 9:00 AM EST SUBJECTIVE Virgilio Johnson is a 64 y.o. female who presents for a chronic illness management visit. CURRENT MEDICATIONS Current Outpatient Medications: aspirin 81 MG EC tablet, 1 (one) time each day at the same time., Disp: , Rfl: brimonidine (AlphaGAN P) 0.2 % ophthalmic solution, Administer 1 drop into both eyes in the morningand 1 drop before bedtime., Disp: , Rfl: [...] by mouth in the morning and 1 tablet(400 mg) before bedtime., Disp: 180 tablet, Rfl: 3 rpmvvzvk-ikibcntiv-jhrULHIXetihd (Polydex) 3.5-82957-6.1 ointment ophthalmic ointment, APPLY 1/2 INCH INTO [...] 2 diabetes mellitus with foot ulcer (CODE) ([facility]) - POCT glycosylated hemoglobin (Hb A1C) docked device Non-pressure chronic ulcer of other part of right foot with fat layer exposed ([facility]) Type 2 diabetes mellitus with diabetic chronic kidney disease ([facility]) Chronic kidney disease, stage 3a (HCC) ([facility]) Type 2 diabetes mellitus with diabetic cataract ([facility]) Carpal tunnel syndrome, bilateral - meloxicam (Mobic) 7.5 MG tablet; Take 1 tablet (7.5 mg) by mouth Daily Irritable bowel syndrome, unspecified type - valsartan (Diovan) 320 MG tablet; Take 1 tablet (320 mg) by mouth Daily - dicyclomine (Bentyl) 20 MG tablet; Take 1 tablet (20 mg) by mouth in the morning and 1 tablet (20mg) before bedtime. Restless legs syndrome - gabapentin [...] evening and 2 at bed Hypothyroidism (acquired) (CMS/HCC) - levothyroxine (Synthroid) 100 MCG tablet; Take [...] Next scheduled follow-up: CIM. documented in this encounterWashington [facility] Memorial [id number] Instructions* Patient Instructions* Noemi Argueta NP - 08/03/2024 9:00 AM EST PATIENT EDUCATION: DM Prior to your visit today, our team reviewed your chart and outlined testing and treatment needed for your care. Possible complications of diabetes include possible loss of vision, increased risks ofheart attack and stroke, and kidney failure. Your [...] medication even if you feel better. Do nottake your thyroid medication at the same time [...] uncontrolled hypertension include stroke, congestive heart failure, heartattack, loss of vision, and kidney failure. Please complete labs as directed and call our office inone week if you have not received your [...] been addressed. Obtain labs as directed and callour office if you have not received the lab results within one week. Follow up as directed. Patienthas been given a copy of the plan of care. documented in this encounterWashington County Memorial HospitalZclvfmsjpq70-72-6175 History of Present illness Narrative* Valentina Gregg MD - 07/07/2024 8:50 AM EST Images from the original note were not included. CHIEF COMPLAINT REASON FOR VISIT : RLS, Left wrist HPI: Virgilio Johnson is a 64 y.o. female who presents for a follow up. She Is wondering if her gabapentin can be changed to a 90 day supply next time. She states regarding her left wrist, she is wearing awrist strap that she is wearing to help [...] daily meloxicam (MOBIC) 7.5 mg, Oral, Daily zuqxtyzv-xxrgdyhoq-wsaEVBYAcsjdd (Polydex) 3.5-68892-5.1 ointment ophthalmic ointment APPLY 1/2 INCH INTO [...] dermatitis bilateral eyelids-sinusitis Folliculitis RIGHT KNEE Glaucoma ([facility]/HCC) 2007 History of transcatheter aortic valve replacement (TAVR) 03/20/2022 Hypertension ([facility]) Irritable bowel disease Irritable bowel syndrome 2006 [...] Oriented to person, place and time. Recent andremote memory are intact. Speech is normal. Language [...] reflexes: Carrol's absent. Ankle clonus absent. Coordination Xxxmpc-nu-muno, rapid alternating movements and wmbg-aw-crow normal bilaterally without dysmetria. Gait Normal casual, [...] Follow up 3 months. documented in this encounterWashington County Memorial [id number] Telephone encounter Note* Telephone Encounter - Grace Gomez - 06/26/2024 8:36 AM EST Voicemail Received: I come in and see Dr Gregg on Tuesday, but I ran out of my DEBI Bolingbroke there. Themilligrams are 300 mg and I take them 3 times a day. I need that called in to [facility]. I am goingto run out before I come and see him on Tuesday. So I Wondered if you could call it into [facility] rob Garcia [facility] HospitalLnylmwywop74-93-0211 Miscellaneous Notes* Telephone Encounter - Grace Gomez - 06/26/2024 8:36 AM EST Voicemail Received: I come in and see Dr Gregg on Tuesday, but I ran out of my DEBI Bolingbroke there. Themilligrams are 300 mg and I take them 3 times a day. I need that called in to [facility]. I am goingto run out before I come and see him on Tuesday. So I Wondered if you could call it into [facility] documented in this encounterWashington County Memorial HospitalBxesutuluh30-26-2215 History of Present illness Narrative* Bin Bradford DPM FACFAS - 06/20/2024 8:30 AM EST Images from the original [...] dermatitis bilateral eyelids-sinusitis Folliculitis RIGHT KNEE Glaucoma ([facility]/HCC) 2007 History of transcatheter aortic valve replacement (TAVR) 03/20/2022 Hypertension ([facility]) Irritable bowel disease Irritable bowel syndrome 2006 Osteoarthritis 2013 RLS (restless legs syndrome) Medications: Current Outpatient Medications: acetaZOLAMIDE (Diamox) 500 MG 12 hr capsule, TAKE 1 CAPSULE BY MOUTH TWICE DAILY DIRECTED, Disp:, Rfl: amLODIPine (Norvasc) 10 MG tablet, Take [...] 1 drop into both eyes in the morningand 1 drop before bedtime., Disp: , Rfl: [...] by mouth in the morning and 1 tablet(400 mg) before bedtime., Disp: 180 tablet, Rfl: 3 meloxicam (Mobic) 7.5 MG tablet, Take 1 tablet (7.5 mg) by mouth Daily, Disp: 30 tablet, Rfl: 11 riodiarp-ybppugver-offBWKKSzlgmk (Polydex) 3.5-02270-6.1 ointment ophthalmic ointment, APPLY 1/2 INCH INTO [...] are palpable bilateral, no edema noted Neuro: Gibbon Glade-David 5.07 monofilament intact, vibratory sensation intact Derm: The lesion has resolved no signs of infection. 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 Porokeratosis PLAN Patient is doing well follow up p.r.n. MALINA Kraft documented in this encounterWashington County Memorial [id number] History of Present illness Narrative* MALINA Kraft - 06/06/2024 8:50 AM EST Images from the original note were not included. Patient: Virgilio Johnson : 1960 PCP: Oswaldo Grewla MD SUBJECTIVE This is a 64 y.o. female that presents today for a chief complaint of painful swollen lesion at thelateral aspect of the right foot secondary to [...] dermatitis bilateral eyelids-sinusitis Folliculitis RIGHT KNEE Glaucoma ([facility]) 2007 History of transcatheter aortic valve replacement (TAVR) 03/20/2022 [facility] Hypertension ([facility]) Irritable bowel disease Irritable bowel syndrome 2005 Osteoarthritis 2012 RLS (restless legs syndrome) Medications: Current Outpatient Medications: acetaZOLAMIDE (Diamox) 500 MG 12 hr capsule, TAKE 1 CAPSULE BY MOUTH TWICE DAILY DIRECTED, Disp:, Rfl: amLODIPine (Norvasc) 10 MG tablet, Take [...] 1 drop into both eyes in the morningand 1 drop before bedtime., Disp: , Rfl: [...] by mouth in the morning and 1 tablet(400 mg) before bedtime., Disp: 180 tablet, Rfl: 3 meloxicam (Mobic) 7.5 MG tablet, Take 1 tablet (7.5 mg) by mouth Daily, Disp: 30 tablet, Rfl: 11 rezliduw-kdzckufzz-jgyOFRAGxdmxf (Polydex) 3.5-90152-7.1 ointment ophthalmic ointment, APPLY 1/2 INCH INTO [...] are palpable bilateral, no edema noted Neuro: Gibbon Glade-David 5.07 monofilament intact, vibratory sensation intact Derm: [...] foot ulcer, right, with fat layer exposed ([facility]) 3. Cellulitis of foot, right PLAN Patient [...] the area MALINA Kraft documented in this encounterWashington County Memorial HospitalUypuksgkkd74-62-8541 History of Present illness Narrative* MALINA Kraft - 05/29/2024 8:10 AM EST Images from the original note [...] dermatitis bilateral eyelids-sinusitis Folliculitis RIGHT KNEE Glaucoma ([facility]) 2007 History of transcatheter aortic valve replacement (TAVR) 03/20/2022 [facility] Hypertension ([facility]) Irritable bowel disease Irritable bowel syndrome 2006 Osteoarthritis 2013 RLS (restless legs syndrome) Medications: Current Outpatient Medications: acetaZOLAMIDE (Diamox) 500 MG 12 hr capsule, TAKE 1 CAPSULE BY MOUTH TWICE DAILY DIRECTED, Disp:, Rfl: amLODIPine (Norvasc) 10 MG tablet, Take [...] 1 drop into both eyes in the morningand 1 drop before bedtime., Disp: , Rfl: [...] by mouth in the morning and 1 capsule(100 mg) before bedtime. Do all this for 10 days. Take with at least 8 ounces (large glass) of water, do not lie down for 30 minutes after., Disp: 20 capsule, Rfl: 0 doxycycline (Monodox) 100 MG capsule, Take 1 capsule (100 mg) by mouth in the morning and 1 capsule(100 mg) before bedtime. Do all this for [...] by mouth in the morning and 1 tablet(400 mg) before bedtime., Disp: 180 tablet, Rfl: 3 meloxicam (Mobic) 7.5 MG tablet, Take 1 tablet (7.5 mg) by mouth Daily, Disp: 30 tablet, Rfl: 11 ygfbljlp-xtpqnshkj-odnWLEGDszmlb (Polydex) 3.5-48644-1.1 ointment ophthalmic ointment, APPLY 1/2 INCH INTO [...] are palpable bilateral, no edema noted Neuro: Gibbon Glade-David 5.07 monofilament intact, vibratory sensation intact Derm: [...] the area MALINA Kraft documented in this encounterWashington County Memorial [id number] History of Present illness Narrative* MALINA Kraft - 05/22/2024 11:20 AM EST Images from the original note [...] dermatitis bilateral eyelids-sinusitis Folliculitis RIGHT KNEE Glaucoma ([facility]) 2007 History of transcatheter aortic valve replacement (TAVR) 03/20/2022 Hypertension ([facility]) Irritable bowel disease Irritable bowel syndrome 2005 Osteoarthritis 2012 RLS (restless legs syndrome) Medications: Current Outpatient Medications: acetaZOLAMIDE (Diamox) 500 MG 12 hr capsule, TAKE 1 CAPSULE BY MOUTH TWICE DAILY DIRECTED, Disp:, Rfl: amLODIPine (Norvasc) 10 MG tablet, Take [...] 1 drop into both eyes in the morningand 1 drop before bedtime., Disp: , Rfl: [...] by mouth in the morning and 1 capsule(100 mg) before bedtime. Do all this for [...] bedtime., Disp: 90 capsule, Rfl: 2 HYDROcodone-acetaminophen (Weinert) 5-325 MG tablet, Take 1 tablet by [...] by mouth in the morning and 1 tablet(400 mg) before bedtime., Disp: 180 tablet, Rfl: 3 meloxicam (Mobic) 7.5 MG tablet, Take 1 tablet (7.5 mg) by mouth Daily, Disp: 30 tablet, Rfl: 11 yopiyipn-efbytzgcg-yprADSOZijuow (Polydex) 3.5-84192-3.1 ointment ophthalmic ointment, APPLY 1/2 INCH INTO [...] are palpable bilateral, no edema noted Neuro: Gibbon Glade-David 5.07 monofilament intact, vibratory sensation intact Derm: [...] this time performed an incision and drainage ofthe abscess of the lateral aspect of the right foot started the patient on doxycycline 100 mg b.I.d. empirically. Recommended she apply Betadine daily dispensed Betadine for 2 applied daily and gave her a prescription for Vicodin for pain follow up 1 week MALINA Kraft documented in this encounterWashington County Memorial HospitalDmkiyeiyxh74-69-7720 History of Present illness Narrative* MALINA Kraft - 05/15/2024 9:30 AM EDT Patient: Virgilio Johnson : 1960 PCP: Oswaldo Grewal MD SUBJECTIVE This is a 64 y.o. female that presents today with a chief complaint of a painful lesion plantar aspect of the foot. They state the lesion has been slow growing and has multipled. The area is painful and causes marked limitation in ambulation secondary to the pain. They have attempted dksu-box-sksmung anti- inflammatory medications as well as uvrc-qky-goixpjg wart treatment to no avail. Painful as [...] dermatitis bilateral eyelids-sinusitis Folliculitis RIGHT KNEE Glaucoma ([facility]) 2007 History of transcatheter aortic valve replacement (TAVR) 03/20/2022 [facility] Hypertension ([facility]) Irritable bowel disease Irritable bowel syndrome 2005 Osteoarthritis 2012 RLS (restless legs syndrome) Medications: Current Outpatient Medications: acetaZOLAMIDE (Diamox) 500 MG 12 hr capsule, TAKE 1 CAPSULE BY MOUTH TWICE DAILY DIRECTED, Disp:, Rfl: amLODIPine (Norvasc) 10 MG tablet, Take [...] 1 drop into both eyes in the morningand 1 drop before bedtime., Disp: , Rfl: [...] by mouth in the morning and 1 tablet(400 mg) before bedtime., Disp: 180 tablet, Rfl: 3 meloxicam (Mobic) 7.5 MG tablet, Take 1 tablet (7.5 mg) by mouth Daily, Disp: 30 tablet, Rfl: 11 lqudxifj-zzxcwxtcf-rbpLARCYcuiqy (Polydex) 3.5-43394-5.1 ointment ophthalmic ointment, APPLY 1/2 INCH INTO [...] < 3 seconds Digits 1-5 bilateral NEURO: [place] David 5.07 monofilament was intact B/L. Vibratory [...] the level of pinpoint bleeding. I applied anapplication of 60 percent salicylic acid to the lesions. Covered with an occlusive dressing. Recommended the patient start Efudex twice daily under occlusion follow up with me in 2 weeks for reassessment. Bin Bradford DPM FACFAS documented in this encounterWashington County Memorial HospitalYktctwbvud69-48-5816 Telephone encounter Note* Telephone Encounter - Jim Luna - 05/14/2024 4:35 PM EDT 05/14/24 sent to nurse to review and send pt needs med sent to Liliam Garcia [facility] HospitalUujijaozbw39-41-2310 Miscellaneous Notes* Telephone Encounter - Jim Luna - 05/14/2024 4:35 PM EDT 05/14/24 sent to nurse to review and send pt needs med sent to Liliam Garcia documented in this encounterWashington County Memorial HospitalAgcuvjkkhj94-32-9195 History of Present illness Narrative* Noemi Argueta, SIDING COREBOARD INSPECTOR - 03/30/2024 8:40 AM EDT Images from the original note were not [...] 1 drop into both eyes in the morningand 1 drop before bedtime., Disp: , Rfl: [...] by mouth in the morning and 1 tablet(400 mg) before bedtime., Disp: 180 tablet, Rfl: 3 meloxicam (Mobic) 7.5 MG tablet, Take 1 tablet (7.5 mg) by mouth Daily, Disp: 30 tablet, Rfl: 11 rvfcnajl-cuqwswoin-lcoIWGJUsfxuk (Polydex) 3.5-65817-1.1 ointment ophthalmic ointment, APPLY 1/2 INCH INTO [...] 1 CAPSULE BY MOUTH TWICE DAILY DIRECTED, Disp:, Rfl: amLODIPine (Norvasc) 10 MG tablet, Take [...] 1.46 ng/dL [facility] CMP (CMP) (FOR REMOTE [facility] USE) Collection Time: 03/24/24 8:11 AM Result Value Ref Range SODIUM 139 136 - 145 mmol/L POTASSIUM 3.8 3.5 - 5.1 mmol/L CHLORIDE 105 98 - 107 mmol/L CARBON DIOXIDE 21.6 21.0 - 32.0 mmol/L ANION GAP 16.2 GLUCOSE 125 (H) 74 - 106 mg/dL BLOOD UREA NITROGEN 35.0 (H) 7.0 - 18.0 mg/dL CREATININE 1.05 (H) 0.55 - 1.02 mg/dL [facility] EGFR-AF BERMUDIAN >60 >=60 TBH EGFR-NON AF BERMUDIAN 53 (L) >=60 BUN CREATININE RATIO 33.3 [...] 6.2 POCT microalbumin manually resulted Collection Time: 09/13/24 9:00 AM Result Value Ref Range MICROALBUMIN, [...] Adult general medical examination Atherosclerosis of aorta (CMS/HCC) Type 2 diabetes mellitus without complication, unspecified whether joint terminal attack controller insulin use ([facility]) - POCT glycosylated hemoglobin (Hb A1C) docked device - POCT microalbumin manually resulted Immunization due - Flu vaccine, MDCK, quadrivalent, PF ([id number]) (Flucelvax single dose syringe) Primary hypertension (CMS/HCC) [...] scheduled follow-up: CIM . documented in this encounterWashington County Memorial HospitalGxcrkzejcq28-65-4018 Instructions* Patient Instructions* Noemi Argueta NP - 03/30/2024 8:40 AM EDT PATIENT EDUCATION: ADULT WELLNESS Wellness performed at office visit today. Height, weight, BMI, problem list, and immunizations records reviewed. Encourage annual vision screenings and semi- annual dental care. Encourage to eat a diet [...] include possible loss of vision, increased risks ofheart attack and stroke, and kidney failure. Your [...] uncontrolled hypertension include stroke, congestive heart failure, heartattack, loss of vision, and kidney failure. Please complete labs as directed and call our office inone week if you have not received your lab results. Patient is encouraged to reduce salt in diet and to exercise at least 150 minutes per week. Avoid tobacco use and alcohol consumption. Please take all medications as prescribed. documented in this encounterWashington County Memorial HospitalYalmgxkbaf82-84-5775 History of Present illness Narrative* Valentina Gregg MD - 03/24/2024 8:40 AM EDT Images from the original note were not included. CHIEF COMPLAINT REASON FOR VISIT: RLS HPI: Virgilio Johnson is a 64 y.o. female who presents for a follow up. She states she works night and after work she will take a ropinirole with the magnesium and gabapentin and then she will go to sleep.Before work she will take a gabapentin and two of the quarter ropinirole. She states the RLS will act up at work and she will take another gabapentin. 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 [...] (MAG-OX) 400 mg, Oral, 2 times daily ybufakyr-phwuduomo-ziaKIVYAiwlev (Polydex) 3.5-07924-9.1 ointment ophthalmic ointment APPLY 1/2 INCH INTO [...] 2006 Osteoarthritis 2013 RLS (restless legs syndrome) Past Surgical History: [...] Oriented to person, place and time. Recent andremote memory are intact. Speech is normal. Language [...] reflexes: Carrol's absent. Ankle clonus absent. Coordination Kufhhh-jx-oboc, rapid alternating movements and yazy-sc-atzi normal bilaterally without dysmetria. Gait Normal casual, [...] Follow up 3 months. documented in this [facility]09-03-2024 Telephone encounter Note* Telephone Encounter - Grace Dawsontace - 03/20/2024 3:47 PM EDT PATIENT NEEDS REFILL OF GABAPENTIN BEFORE SAT APPOINTMENT SHE WILL NOT HAVE ENOUGH TO GET HER THROUGH UNTIL THEN. WAS ORIGINALLY SCHEDULED FOR THIS AST TUESDAY FOR F/U. [facility] HospitalRzvttwmecu28-82-6879 Miscellaneous Notes* Telephone Encounter - Grace Jason - 03/20/2024 3:47 PM EDT PATIENT NEEDS REFILL OF GABAPENTIN BEFORE SAT APPOINTMENT SHE WILL NOT HAVE ENOUGH TO GET HER THROUGH UNTIL THEN. WAS ORIGINALLY SCHEDULED FOR THIS AST TUESDAY FOR F/U. documented in this [facility]08-30-2024 History of Present illness Narrative* Josep Perdomo MD - 03/16/2024 10:10 AM EDT Subjective Virgilio Johnson is a 64 y.o. [...] Attestation By signing my name below, Yue Harrison LPN , Scrsuman attest that this documentation has been prepared under the direction and in the presence of MD Jim. Provider Attestation - Scribe documentation All medical record entries made by the Scribe were at my direction and personally dictated by me. Rossana reviewed the chart and agree that the record accurately reflects my personal performance of the history, physical exam, discussion and plan. documented in this [facility] Work Phone: 1(714) 559-654108-30-2024 Instructions* Patient Instructions* Yue Hall LPN - 03/16/2024 10:10 AM [...] up afterwards Lab work documented in this [facility]Pro[facility] Work Phone: [phone]) 264-202908-29-2024 Telephone encounter Note* Telephone Encounter - Guerline Obrien NP - 03/15/2024 2:50 PM EDT Please contact patient and have her complete lab work prior to her next office visit. She is also due for urine microalbumin. [facility] Work Phone: 1(962) 973-594008-29-2024 Miscellaneous Notes* Telephone Encounter - Guerline Obrien NP - 03/15/2024 2:50 PM EDT Please contact patient and have her complete lab work prior to her next office visit. She is also due for urine microalbumin. 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 female Chief [...] Scribe Attestation By signing my name below, Celeste, Virgilio PeraltaAndres BHAGAT , Scribe attest that this documentation has been prepared under the direction and in the presence of MD Jim. Provider Attestation - Scribe documentation All medical record entries made by the Scribe were at my direction and personally dictated by me. Ihave reviewed the chart and agree that the record accurately reflects my personal performance of the history, physical exam, discussion and plan. documented in this encounterProMedica [facility] Hospital Work Phone: 1(808) 188-802102-23-2024 Instructions* Patient Instructions* Virgilio Euceda LPN - 09/09/2023 11:30 AM [...] instructions on dietary changes. documented in this encounterProMedica Memorial Hospital Work Phone: 1(643) 343-811202-16-2024 NoteHNO ID: [id number] Author: LUCAS LEVY PA-C Service: ? Author Type: Physician Job Boss Type: Progress Notes Filed: 09/02/2023 10:42 Note [...] Lucas Levy PA-C September 02, 2023 10:36 [facility]02-16-2024 History of Present illness Narrative* Lucas Levy PA-C - 09/02/2023 10:35 AM EST This document has been created with the use of voice recognition technology. It may contain inaccuracies such as misspellings, inaccurate syntax or word sense that escaped review. Chief complaint: Recheck of right knee Revision right TKR 08/29/2022 (1 year) Left TKR 02/03/2022 (1-2 years) HISTORY: Virgilio [...] 02, 2023 10:36 AM documented in this encounterKindred Healthcare01-12-2024 NoteHNO ID: [id number] Author: LUCAS LEVY PA-C Service: ? Author Type: Physician Job Boss Type: Progress Notes Filed: 07/29/2023 12:44 Note [...] last few months. 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 Author [...] BY: RT Lauren(R) July 29, 2023 10:36 [facility]08-31-2023 Chief complaint Narrative - Reported* VIRGILIO JOHNSON is being seen for a cardiovascular evaluation . one year s/p TAVR follow-up. * A telephone visit (audio only) between the patient (at the originating site) and the provider (at the distant site) was utilized to provide this telehealth service. * Verbal consent was requested and obtained from VIRGILIO JOHNSON on this date, 03/17/2023 09:00 AM , for a telehealth visit. [facility] Work Phone: [phone]) 403-179408-20-2023 NoteHNO ID: [id number] Author: Violet Combs MD Service: ? Author Type: Physician Type: Progress Notes Filed: 03/06/2023 3:04 PM Note Text: see dictated note Violet Combs II, [facility]08-20-2023 History of Present illness Narrative* Violet Combs MD - 03/06/2023 3:03 PM EDT see dictated note Violet Combs II, MD documented in this encounterKindred Healthcare08-16-2023 Miscellaneous Notes* Telephone Encounter - Lucas Levy PA-C - 03/02/2023 10:52 AM EDT rx sent to [facility] patient notified Lucas Levy PA-C documented in this encounterKindred Healthcare08-14-2023 NoteHNO ID: [id number] Author: Violet Combs MD Service: Orthopaedic Surgery Author Type: Physician Type: Progress Notes Filed: 2023 4:47 PM Note Text: [facility] [address] [place], [place] [address] CLINIC NOTE Department of Orthopaedics - [place] Violet Combs II, M.D. NAME: VIRGILIO JOHNSON CLINIC NO.: [id number] DATE OF SERVICE: 02/28/2023 CHIEF COMPLAINT: Recheck [...] II, M.D. Date Dictated: 03/04/2023 Date Typed: [facility] 03/04/2023 JOB# [id number]08-14-2023 NoteHNO ID: [id number] Author: Radha Le RT(R) Service: ? Author [...] BY: RT Aarti(R) February 28, 2023 10:38 [facility]05-15-2023 NoteHNO ID: [id number] Author: Lucas Levy PA-C Service: ? Author Type: Physician Job Boss Type: Progress Notes Filed: 11/29/2022 5:10 PM [...] the next few weeks. Also scheduled for [place] therapy sessions. She states pain is well [...] knee joint Informed Consent Consent Obtained: Written [place] Protocol A moment to CARE was completed. [...] with the patient and (more content not included)...[facility]04-19-2023 NoteHNO ID: [id number] Author: Lucas Levy PA-C Service: ? Author Type: Physician Job Boss Type: Progress Notes Filed: 11/11/2022 5:16 PM [...] Lucas Levy PA-C November 03, 2022 11:08 [facility]03-31-2023 NoteHNO ID: [id number] Author: Violet Combs MD Service: ? Author Type: Physician Type: Progress Notes Filed: 10/15/2022 2:27 PM Note Text: see dictated note Violet Combs II [facility]03-31-2023 History of Present illness Narrative* Violet Combs MD - 10/15/2022 2:24 PM EDT see dictated note Violet Combs II, MD documented in this encounterKindred Healthcare03-31-2023 NoteHNO ID: [id number] Author: Violet Combs MD Service: Orthopaedic Surgery Author Type: Physician Type: Progress Notes Filed: 10/18/2022 5:08 PM Note Text: [facility] [address] [place], [place] [address] CLINIC NOTE Department of Orthopaedics - Dilan Combs II, M.D. NAME: VIRGILIO JOHNSON CLINIC NO.: [id number] DATE OF SERVICE: 10/15/2022 CHIEF COMPLAINT: Recheck of right knee. Right revision TKR, 08/29/2022. Left TKR, 02/03/2022. The patient has excellent motion with her left total knee. ROM is 0 to 120 degrees. Right knee has flexion to 115 degrees, but lacks 7 to 10 degrees to full extension. Recommend we get her into some water therapy. Recommend water therapy at [facility], for stretching and strengthening exercises. She is scheduled to go back to work in about a month. We will see her back in 3 weeks. Dictated By: Violet Combs II, M.D. Date Dictated: 10/15/2022 Date Typed: [facility] 10/15/2022 JOB# [id number][facility]02-21-2023 NoteHNO ID: [id number] Author: Lucas Levy PA-C Service: ? Author Type: Physician Job Boss Type: Progress Notes Filed: 09/07/2022 4:27 PM [...] Lucas Levy PA-C September 07, 2022 4:[address] [facility]02-21-2023 History of Present illness Narrative * Lucas Levy PA-C - 09/07/2022 4:22 PM EST This document has been created with the [...] 07, 2022 4:22 PM documented in this encounterKindred Healthcare02-21-2023 NoteHNO ID: [id number] Author: Shala Aguilar RT(R) Service: ? Author Type: Technologist Type: [...] BY: RT Binta(R) September 07, 2022 2:[address] [facility]02-21-2023 Instructions* Patient Instructions* Lucas Levy PA-C - 09/07/2022 2:53 PM [...] Ice quiets things down. documented in this encounterKindred Healthcare02-21-2023 History of Present illness Narrative* RT Ashlee(R) - 09/07/2022 2:05 PM EST Radiology Service Progress Note PATIENT NAME: Virgilio [...] falls during this visit? Instructed Patient to Callfor Help if Needed, Offered Assistance with Transfers/Clothing, Instructed Patient to Remain Seated(Not on Exam Table) Until Exam, and Increased Observations by Caregivers PATIENT GENDER DATA: Female. status: : No status: NO. PATIENT RELEVANT IMPLANT DATA REVIEWED: Not Applicable RADIOLOGY DEPARTMENT: General X-ray: Exam(s) Completed: Lower Extremity X- Ray(s): Knee, AP / Lat / Merchant Right PERIPHERAL IV DATA: Not applicable SIGNED BY: Rona Nevarez RT(R) September 07, 2022 2:05 PM documented in this encounterKindred Healthcare02-17-2023 Miscellaneous Notes* Telephone Encounter - Lucas Levy PA-C - 09/03/2022 12:22 PM EST patient requesting a refill of her oxy [...] OARRS evaluation was appropriate. Rx sent to [facility]. documented in this encounterKindred Healthcare02-03-2023 NoteHNO ID: [id number] Author: Ella Pagan ([employer]) Service: ? Author Type: ? Type: Plan [...] tablet by mouth three times daily. Ella Pagan (Technical Sales Support Specialist) PAGER: raisa August 20, 2022 3:01 [facility]Pwrl[facility]ep[facility] NoteHNO ID: [id number] Author: Jennifer Herring PA-C Service: Orthopaedic Surgery Author Type: Physician Job Boss Type: Progress Notes Filed: 08/20/2022 10:08 AM [...] (Hcc) Failed Total Knee Arthroplasty, Initial Encounter ([facility]) Medication and Non-Pharmacologic VTE Prophylaxis/Anticoagulants Anticoagulant AND Antiplatelet Medications (From admission, onward) Start Dose Route Frequency Last Action Ordered Stop 08/20/22 0900 aspirin, enteric coated 81 mg tab(s) (Surgical Risk Categories) 81 mg ORAL 2 TIMES DAILY Given, 08/20 0824 08/19/22 1607 -- 08/19/22 1615 graduated compression stockings (ia,ky) 08/19/22 1615 graduated compression stockings (ia,ky) 08/19/22 1615 activity - mobilize patient ([place]) VTE Prophylaxis: VTE prophylaxis appropriate POST OPERATIVE COMPLICATIONS: Complicated by: uneventful/none SIGNATURE: Jennifer Herring PA-C PATIENT NAME: Virgilio Johnson DATE: August 20, 2022 TIME: 10:06 [facility]ws[facility]ixp77-72-1535 NoteHNO ID: [id number] Author: Roma Ospina RN Service: Care Management Author Type: Registered Nurse Type: Care Mgt Initial Assessment Filed: 08/20/2022 9:55 AM Note Text: CARE MANAGEMENT: ASSESSMENT AND DISCHARGE PLAN SERVICE DATE: August 20, 2022 SERVICE TIME: 9:53 AM PRIMARY CARE PHYSICIAN: Oswaldo Grewal MD Primary Contact: Extended Emergency Contact Information Primary Emergency Contact: Artis Sanches Address: [address] [place] [address] Mobile Relation: Spouse ADMISSION STATUS: Inpatient Insurance Provider: [facility] GENERIC NEEDS PRIOR TO DISCHARGE Needs Prior to Discharge: OT/PT Evaluation POTENTIAL TRANSITION PLANS Outpatient Therapy Based on clinical judgement, Care Management will address the following needs: Medical Patient's perception of need for this admission: necessary ADVANCE DIRECTIVES Current Advance Directive: None Ladle Handler Attempted to Assist with AD Completion: Yes [...] discharge within 30 days: No PATIENT SCREEN Patient/Access Representative Stated Goals: To return home to life [...] at this time. FREEDOM OF CHOICE EXPLAINED: [place] of Choice Given: No Reason Not Given: [...] appointment for outpatient PT August 24 near [facility]. Her will transport her home at [facility] to follow. SIGNATURE: Roma Ospina RN PATIENT NAME: Virgilio Johnson DATE: August 20, 2022 TIME: 9:53 AM CONTACT #: [id number] [id number] NoteHNO ID: [id number] Author: Chavez Cartagena RN Service: ? Author Type: Registered Nurse Type: Nursing Progress Note Filed: 08/19/2022 3:03 PM Note Text: Pt and family aware of pending admission to [address] [place], [place] [address]54002-02-2023 Note HNO ID: [id number] Author: Alina Limon APRN.CRNA Service: Anesthesiology Author Type: Nurse Insole Doubler Type: Anesthesia Procedure Notes Filed: 08/19/2022 11:00 AM Note Text: ANESTHESIOLOGY PROCEDURE NOTE Peripheral Nerve Block General Information Procedure Start Time/Medication Administration: 08/19/2022 10:59 AM Procedure End time: 08/19/2022 10:59 AM Patient location during procedure: OR Timeout Performed Pre-procedure: timeout performed Consent Obtained: Yes 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, care store team member and patient sedated or unresponsive Reason for [...] - 08/19/2022 10:59:00 AM SIGNATURE: Alina Limon APRN.PRODUCTION GENERALIST PATIENT NAME: Virgilio Johnson DATE: August 19, 2022 TIME: 10:59 AM CSN: [id number] NoteHNO ID: [id number] Author: Alina Limon APRN.PRODUCTION GENERALIST Service: Anesthesiology Author Type: Nurse Insole Doubler Type: Anesthesia Procedure Notes Filed: 08/19/2022 11:21 AM Note Text: ANESTHESIOLOGY PROCEDURE NOTE Spinal Block General Information Procedure Start Time/Medication Administration: 08/19/2022 10:50 AM Procedure End time: 08/19/2022 10:59 AM Patient location during procedure: OR Timeout Performed Pre-procedure: timeout performed Consent Obtained: Yes 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 and patient Reason for Block: primary surgical anesthetic Staffing Anesthesiologist: Guerline Botello MD PRODUCTION GENERALIST: Alina Limon APRN.PRODUCTION GENERALIST Performed by: anesthesiologist and PRODUCTION GENERALIST Preparation Sterility Preparation: hand hygiene performed prior [...] - 08/19/2022 10:50:00 AM SIGNATURE: Alina Limon APRN.CRNA PATIENT NAME: Virgilio Johnson DATE: August 19, 2022 TIME: 10:49 AM CSN: [id number] History of Past illness Narrative* Problem Noted Date Resolved Date Acute cystitis without hematuria 08/09/2022 08/19/2022 Last Assessment & Plan: Assessment: per Urine Culture, Pt. treated per susceptibility Pt. notified; Pt. reports is Asymptomatic Effusion of right knee 03/27/2021 3 Effusion of left knee 04/30/2020 08/19/2022 Knee pain 07/05/2013 08/19/2022 documented as of this encounter (statuses as of 09/03/2022) [facility] History of Past illness Narrative* Problem Noted Date Resolved Date Acute cystitis without hematuria 08/09/2022 08/19/2022 Last Assessment & Plan: Assessment: per Urine Culture, Pt. treated per susceptibility Pt. notified; Pt. reports is Asymptomatic Effusion of right knee 03/27/2021 3 Effusion of left knee 04/30/2020 08/19/2022 Knee pain 07/05/2013 08/19/2022 documented as of this encounter (statuses as of 09/07/2022) [facility] History of Past illness Narrative* Problem Noted Date Resolved Date Acute cystitis without hematuria 08/09/2022 08/19/2022 Last Assessment & Plan: Assessment: per Urine Culture, Pt. treated per susceptibility Pt. notified; Pt. reports is Asymptomatic Effusion of right knee 03/27/2021 3 Effusion of left knee 04/30/2020 08/19/2022 Knee pain 07/05/2013 08/19/2022 documented as of this encounter (statuses as of 09/08/2022) [facility] History of Past illness Narrative* Problem Noted Date Resolved Date Acute cystitis without hematuria 08/09/2022 08/19/2022 Last Assessment & Plan: Assessment: per Urine Culture, Pt. treated per susceptibility Pt. notified; Pt. reports is Asymptomatic Effusion of right knee 03/27/2021 Effusion of left knee 04/30/2020 08/19/2022 Knee pain 07/05/2013 08/19/2022 documented as of this encounter (statuses as of 10/15/2022) [facility] History of Past illness Narrative* Problem Noted Date Diagnosed Date Resolved Date Acute cystitis without hematuria 08/09/2022 08/19/2022 Last Assessment & Plan: Assessment: per Urine Culture, Pt. treated per susceptibility Pt. notified; Pt. reports is Asymptomatic Effusion of left knee 04/30/20202022 Knee pain 07/05/2013 08/19/2022 documented as of this encounter (statuses as of 03/02/2023) [facility] History of Past illness Narrative* Problem Noted Date Diagnosed Date Resolved Date Acute cystitis without hematuria 08/09/2022 08/19/2022 Last Assessment & Plan: Assessment: per Urine Culture, Pt. treated per susceptibility Pt. notified; Pt. reports is Asymptomatic Effusion of left knee 04/30/20202022 Knee pain 07/05/2013 08/19/2022 documented as of this encounter (statuses as of 03/06/2023) [facility] History of Past illness Narrative* Problem Noted Date Diagnosed Date Resolved Date Acute cystitis without hematuria 08/09/2022 08/19/2022 Last Assessment & Plan: Assessment: per Urine Culture, Pt. treated per susceptibility Pt. notified; Pt. reports is Asymptomatic Effusion of left knee 04/30/20202022 Knee pain 07/05/2013 08/19/2022 documented as of this encounter (statuses as of 09/02/2023) [facility] History of Present illness Narrative* Violet Combs MD - 08/05/2022 12:10 PM EST SEE DICTATED NOTE Violet Combs II, MD documented in this encounterKindred Healthcare01-19-2023 History and physical note * Rosa Stoddard [...] fevers. Neuro: No history of TIA's, stroke, SPINNING ROOM WORKER tumor, impaired sensorium, hemiplegia, paraplegia or quadraplegia. [...] or incontinence,, stones or chronic kidney disease COLLECTOR OF INTERNAL REVENUE: Negative for abnormal vaginal bleeding, abnormal vaginal [...] ABNORMAL ECG Outside 12/23/2021 EKG- scanned into Epic 03/20/2022 ECHO Assessment/Plan HTN (hypertension) Assessment: Managed [...] Dr. Josep Perdomo ( last visit 04/01/2022 [facility], next visit 02/2023)Per office Visit: Patient requesting preoperative risk assessment for knee surgery. I advised that she can proceed with surgery after new year in 3 months . [LETTER] for Cardiac Risk Assessment sent. >PCP for medical Risk Assessment(last visit 08/02/2022) [LETTER] [07/26/2022 LETTER] scanned into [facility] re: BP The Following Tests/Procedures Have Been Initiated: Labs ordered in [facility] per Surgeon ( dated 06/01/2022) + Orders [...] 2022 TIME: 8:30 AM documented in this encounterKindred Healthcare01-18-2023 Instructions* Patient Instructions* Rosa Stoddard APRN.CNP - 08/04/2022 1:56 PM EST PATIENT PREOPERATIVE INSTRUCTIONS Violet Combs MD has scheduled you for your procedure at this surgery center: [facility]: [phone] --[id number] [place] [address]. Please enter through the entrance closest to [...] or other anticoagulants without consulting with your sheet turner or prescribing physician. - Stop Vitamin E, [...] Procedures: - YOU MUST HAVE A RESPONSIBLE SLIDE ATTENDANT TAKE YOU HOME. A CLIENT SUCCESS MANAGER OR NATURAL RESOURCE OFFICER CANNOT BE MADE A RESPONSIBLE SLIDE ATTENDANT. - We recommend that a responsible person [...] Advance Directive, please fax a copy to [phone] or email to for it to be [...] your chart that day. documented in this encounterKindred Healthcare01-18-2023 Nurse Note* Aline David RN - 08/04/2022 9:32 AM EST ORTHOPAEDIC SURGERY PRE-OP PATIENT Virgilio Johnson is a 62 year old female PROCEDURE: Revision of right Total Knee PROCEDURE DATE: 08/19/22 CHECKLIST: Informed Consent: Yes- In [employer] [facility]: No Pre-op Skin Preparation Cloths & [...] Effects -Afterhours Number Given- page ortho resident forest fire prevention specialist at [phone] METHOD OF INSTRUCTION: Individual instruction, Written instruction [...] -Call office if questions/concerns -Afterhour for resident forest fire prevention specialist INFECTION MANAGEMENT: -Signs and symptoms of an infection -Importance of contacting the physician MEDICATION SIDE EFFECTS: -Side effects associated with the medication that warrant a call to the physician WOUND CARE: -Correct procedure to perform wound care DISCHARGE PLAN: -Patient referred to rapid recovery program and [place] [facility] [employer] was offered to Patient about [...] plans to go home with OP-PT at [facility]. Patient has walker Yes , cane Yes , shower bench No elevated toilet seat No Patient is 248 lbs 0 oz and is Height (cm or in): 5'8 Guide to recovery, follow your pathway to recovery after joint replacement surgery materials given to patient prior to end of session. Pt. had no other questions or concerns at this time. Aline David, RN documented in this encounterKindred Healthcare11-15-2022 History of Present illness Narrative* Violet Combs MD - 06/01/2022 7:48 AM EST see dictated note Violet Combs II, MD documented in this encounterKindred Healthcare10-27-2022 Chief complaint Narrative - Reported* VIRGILIO JOHNSON is being seen for a cardiovascular evaluation . 1 month s/p TAVR. * A telephone visit (audio only) between the patient (at the originating site) and the provider (at the distant site) was utilized to provide this telehealth service. * Verbal consent was requested and obtained from VIRGILIO JOHNSON on this date, 05/13/2022 03:00 PM , for a telehealth visit. [facility] Work Phone: [phone] Miscellaneous Notes* Telephone Encounter - Ann Hunter - 04/13/2022 4:02 PM EDT Resolved. Spoke with pt today. Form is revised and faxed today to [employer]. See FYI for details. * Telephone Encounter - Aleida Mckenzie - 04/01/2022 11:57 AM EDT Patient calling. She would request her intermittent FMLA be extended again while her cardiac issuesare being addressed. Please call her at [phone] to advise. Thank you. PHYLLIS Dejesus, [facility] Buyer Assistant Please note: Please do not re-route phone encounters back to this agent, please send to appropriateoffice pool. Agent works in call center and cannot complete patient specific tasks. documented in this encounterKindred Healthcare09-03-2022 NoteSend Summary: Discharge Summary Providers: Provider RoleProvider Name ReferringJosep Perdomo AttendingLashon Longoria Brian A Note Recipients: Oswaldo Grewal MD - [id number] [] Lashon Longoria MD Traboulssi, Mourhaf, MD - [id number] [preferred] Discharge: Summary: Admission Date: .19-Mar-2022 08:18:00 Discharge Date: 20-Mar-2022 Attending Physician at Discharge: Lashon Longoria Admission Reason: -s/p TAVR w/ c/f injury to catheterization sites in s/o restless leg syndrome (now sedated requiring intubation)(1) Final Discharge Diagnoses: S/P TAVR (transcatheter aortic valve replacement) Procedures: TAVR (03/19) Condition at Discharge: Satisfactory Disposition at Discharge: .Home Vital Signs: T PRBPMAPSpO2 [id number]/232807% Date/Time03/20 16:009 13:009 13:0093 13:0093 13:0093 8:00 Range(35.9C - 36.6C ) (57 - 85 ) (13 - 31 ) (101 - 186 )/ (34 - 84 ) (54 - 110 ) (91% - 100% ) As of 20-Mar-2022 00:00:00, patient is on 2 L/min of oxygen via room air. Date: Weight/Scale Type:Height: 19-Mar-2022 17:65833 kg / mrb128.1 cm Physical Exam: General: no acute distress, [...] leg syndrome, and HTN. Initially presented [facility] (03/19) for scheduled TAVR for severe symptomatic [...] valve (would be noted but would not foreign exchange position clerk regardless of findings). This was ordered but unable to be obtained given limited CT access on the weekend and extensive emergent CTs ordered from ED. Given CT BARB was unlikely to happen on day of anticipated discharge and results would not foreign exchange position clerk, Ms. Johnson was discharged home. Cleared for [...] up to solid food (more content not included)...[facility]09-02-2022 Note Service: Critical Care Service: ServiceCICU History [...] leg syndrome, and HTN. Initially presented to [facility] (03/19) for scheduled TAVR for severe symptomatic [...] Objective: Objective Information: Objective Information T PRBPMAPSpO2 [id number]/984689% Date/Time03/19 16: 18: 18: 18: 18: 18:00 Range(35.9C - 35.9C ) (61 - 69 ) (14 - 14 ) (150 - 161 )/ (61 - 62 ) (86 - 89 ) (95% - 97% ) As of 19-Mar-2022 16:30:00, patient is on 30% oxygen via ventilator assisted. Pain reported at 03/19 16:30: 5 = Moderate Date: Weight/Scale Type: 19-Mar-2022 17:08486 kg / bed Physical Exam Narrative: Physical [...] Hours 2. Atropine Injectable: (more content not included)...[facility]09-02-2022 NoteDate of Procedure: March 19, 2022 Pre-operative Diagnosis: 1. Symptomatic severe aortic stenosis 2. Hypertension 3. Morbid obesity 4. Glaucoma Post-Operative Diagnosis: 1. Symptomatic severe aortic stenosis 2. Hypertension 3. Morbid obesity 4. Glaucoma Procedure: 1) Transcatheter Aortic Valve Replacement (29 mm Medtronic Evolut FX SN: [id number]) via right femoral artery 2) Percutaneous placement of balloon tipped pacing catheter (Right internal jugular vein) 3) Left heart catheterization including left ventricular end diastolic pressure 4) Percutaneous balloon aortic valvuloplasty (18 mm True Balloon) 5) Percutaneous pre-close of the right and left common femoral artery Surgeon: Mal Hargrove MD Market News Reporter: Roxann Winchester MD; Wiilam Jeffries MD; Sharon Esparza MD Indications: Mrs Johnson is an 62 year old woman who is a patient of Dr. Oswaldo Grewal; Dr. Perdomo is their sheet turner, The patient presents with need for reoperative [...] heart block throughout the case. Co-Planar view: SRI LANKAN 15; GEOLOGIST PETROLEUM 20 Cusp overlap view: DOOLEY 1; CAU 10 Procedure details: After informed consent was obtained, and all questions asked and answered to the patient's satisfaction, they were brought back to the cardiology catheterization laboratory and placed on the Architectural Representative table. A timeout was performed with the correct patient, correct procedure, the correct laterality, timing and dosage of antibiotics, the availability of blood products, and all correct equipment was verified as being present prior to beginning the case. Ultrasound guidance was utilized to place a 7 Eritrean locking sheath in the right internal jugular [...] technique. This was exchanged for an 8 Eritrean sheath, and then 2 Pro-glide Perclose sutures were placed. At this point we electively, urgently intubated the patient. Next the right common femoral artery was dilated to a 14 Eritrean size, and a 14 Eritrean sheath was placed in the right common [...] removed from the body. Next the 14 Eritrean sheath was removed from the right common femoral artery, over the safari wire, and the delivery system and valve replaced bareback into the right common femoral artery. The valve was then advanced on the delivery system through to the ascending aorta, and we verified our correct projection. The evolute valve was then advanced across the eek aortic valve, and slowly this was deployed as the pacemaker was set at 15 (more content not included)... [facility]09-02-2022 NoteClinical Note - Pharmacy v2: Education: Document TopicMedication Education MedicationMeds to Beds: Patient accepts Meds to Beds service at discharge, please send prescriptions to [facility]. Sources used to confirm home medication list: Patient interview Aspirin: none Statin: atorvastatin 10 mg daily P2Y12 inhibitor: none Anticoagulant: none Medication reconciliation complete Please reach out via [employer] for questions Narcisa Estevez, PGY-1 Panel Machine Tender [facility] Is This Intervention Medication Reconciliation Relatedyes Time Tqphdmva10-08 minutes Additional NotesDrug Name: amLODIPine 5 mg [...] Reaction: Unknown Electronic Signatures: Funmi Wyman ([facility]) (Signed 20-Mar-2022 08:14) Co-Signer: Education, Allergy Narcisa Estevez ([facility]) (Signed 19-Mar-2022 16:30) Authored: Education, Allergy Last Updated: 20-Mar-2022 08:14 by Funmi Wyman ([facility]09-02-2022 NoteHistory of Present Illness: HPI: Cardio: Dr. [...] D 23 LCA 12 RCA 15 SOV STJ LVOT 20 SRI LANKAN 15 CRAN 12 Attestation: Note Completion: I [...] the note. I personally evaluated the patient [id number] Comments/ Additional Findings 1. Severe aortic stenosis [...] Completion Last Updated: 20-Mar-2022 08:14 by Roxann Winchester)[facility]08-08-2022 Evaluation note* Encounter Date Diagnosis Assessment Notes [...] COVID POSITIVE education handout discharge instructions. given. [facility] Other 06-06-2022 Nurse Note* Aline David RN - 12/21/2021 10:48 AM EDT ORTHOPAEDIC SURGERY PRE-OP PATIENT Virgilio Johnson is a 61 year old female PROCEDURE: Revision of right Total Knee PROCEDURE DATE: 01/05/22 CHECKLIST: Informed Consent: Yes- In [employer] [facility]: No Pre-op Skin Preparation Cloths & [...] Effects -Afterhours Number Given- page ortho resident forest fire prevention specialist at [phone] METHOD OF INSTRUCTION: Individual instruction, Written instruction [...] -Call office if questions/concerns -Afterhour for resident forest fire prevention specialist INFECTION MANAGEMENT: -Signs and symptoms of an infection -Importance of contacting the physician MEDICATION SIDE EFFECTS: -Side effects associated with the medication that warrant a call to the physician WOUND CARE: -Correct procedure to perform wound care DISCHARGE PLAN: -Patient referred to rapid recovery program and [place] [facility] Choice was offered to Patient about [...] plans to go home with OP-PT at [facility]. Patient has walker Yes , cane Yes [...] time. Aline David RN documented in this encounterKindred Healthcare05-31-2022 Miscellaneous Notes* Telephone Encounter - Emy Bunn LPN - 12/15/2021 11:46 AM EDT Patient aware of below. Emy Bunn LPN December 15, 2021 11:47 AM * Telephone Encounter - Yudith Hobson APRN.TRUSS DRIVER HELPER - 12/11/2021 9:40 AM EDT Reviewed patients labs she is positive for a UTI. No symptoms present. Sent atb to her preferred pharmacy. Patient is also scheduled for ECHO on 12/17 at [facility] for heart murmur. This was ordered byNP in PCP office. Will need to obtain results prior to procedure. [place]. Yudith Hobson APRN.EFFIE documented in this encounterKindred Healthcare03-06-2022 Evaluation note* Constitutional: Well developed, awake/alert/oriented x3, [...] and reflexes, normal strengthPsychological: Anxious and tearful [facility]02-21-2022 Evaluation note* Encounter Date Diagnosis Assessment Notes [...] Patient care instructions given in writting by [facility] Care At Home document. [facility] Other 07-19-2021 History of Present illness Narrative* [...] 02, 2021 10:01 AM documented in this encounterKindred Healthcare08-12-2020 History of Present illness Narrative* Thanh ThorneRt)Valentin - 02/27/2020 9:40 AM EDT Radiology Service [...] 27, 2020 10:09 AM documented in this encounterKindred Healthcare09-01-2012 History general Narrative - Reported* Type Description Date Medical History Heart Murmur Medical History Pure hypercholesterolemia Medical History Benign essential HTN Medical History restless leg syndrome Surgical History right knee ARTHROSCOPY 03/2012 Surgical History Partial RT knee replacement 2012 Hospitalization History see above hx [facility] Other Evaluation noteNo assessment information available [facility] Work Phone: Evaluslhmu note* Diagnosis S/P right unicompartmental knee replacement- [...] osteoarthrosis, lower leg [facility]* Diagnosis MRSA (methicillin resistant Staphylococcus aureus)- Primary Methicillin resistant Staphylococcus aureus in conditions classified elsewhere and of unspecified site S/P right unicompartmental knee replacement Knee joint replacement by other means Failed total knee arthroplasty, sequela S/P right unicompartmental knee replacement Knee joint replacement by other means Primary osteoarthritis of right knee Primary localized osteoarthrosis, lower leg [facility]* Diagnosis Preop examination- Primary Preoperative examination, [...] osteoarthrosis, lower leg documented in this encounter [facility] note* Diagnosis S/P revision of total knee, right- Primary Postoperative pain Other acute postoperative pain [facility]* Diagnosis S/P revision of total knee, right- Primary [facility]* Diagnosis Status post revision of total knee, right- Primary [facility]* Diagnosis S/P right unicompartmental knee replacement Knee joint replacement by other means Status post left knee replacement documented in this encounter [facility] note* Diagnosis Status post revision of total knee, right- Primary Status post left knee replacement [facility]* Diagnosis Aftercare following right knee joint replacement surgery- Primary Status post revision of total knee, right Status post left knee replacement documented in this encounter [facility] note* Diagnosis Essential hypertension, benign- Primary S/P TAVR (transcatheter aortic valve replacement) Mixed hyperlipidemia Dyspnea, unspecified type BMI 35.0-35.9,adult documented in this encounter [facility] Work Phone: Evaluation note* Diagnosis Preop examination- [...] left knee replacement documented in this encounter [facility] note* Diagnosis Preop examination- Primary Preoperative examination, [...] left knee replacement documented in this encounter [facility] note* Diagnosis Preop examination- Primary Preoperative examination, [...] total knee, right documented in this encounter [facility] note* Diagnosis Preop examination- Primary Preoperative examination, [...] hematuria Acute cystitis documented in this encounter [facility] note* Diagnosis Preop examination- Primary Preoperative examination, [...] hematuria Acute cystitis documented in this encounter [facility] note* Diagnosis Preop examination- Primary Preoperative examination, [...] hematuria Acute cystitis documented in this encounter [facility] note* Diagnosis Preop examination- Primary Preoperative examination, [...] hematuria Acute cystitis documented in this encounter [facility] note* Diagnosis Preop examination- Primary Preoperative examination, [...] hematuria Acute cystitis documented in this encounter [facility]* Diagnosis Irritable bowel syndrome, unspecified type documented in this encounter [facility]* Diagnosis Neoplasm of uncertain behavior of skin- Primary Verruca plantaris Plantar wart Right foot pain Pain in soft tissues of limb 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 Benign neoplasm of unknown origin documented in this encounter [facility]* Diagnosis Cellulitis of foot, right- Primary Abscess of right foot Cellulitis and abscess of foot, except toes Right foot pain Pain in soft tissues of limb documented in this encounter [facility]* Diagnosis Cellulitis of foot, right- Primary Chronic foot ulcer, right, with fat layer exposed (CMS/HCC) Venous insufficiency (chronic) (peripheral) Unspecified venous (peripheral) insufficiency documented in this encounter [facility]* Diagnosis Neoplasm of uncertain behavior of skin- Primary Venous insufficiency (chronic) (peripheral) Unspecified venous (peripheral) insufficiency Chronic foot ulcer, right, with fat layer exposed (CMS/HCC) Cellulitis of foot, right documented in this encounter [facility]* Diagnosis Neoplasm of uncertain behavior of skin- Primary 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 documented in this encounter [facility]* Diagnosis Mixed hyperlipidemia- Primary Essential hypertension, benign BMI 35.0-35.9,adult Dyspnea, unspecified type S/P TAVR (transcatheter aortic valve replacement) Never smoked tobacco documented in this encounter [facility] Work Phone: Evaluation note* Diagnosis Restless legs syndrome Restless legs syndrome (RLS) [facility]* Diagnosis Carpal tunnel syndrome, bilateral- Primary Carpal tunnel syndrome RLS (restless legs syndrome) Restless legs syndrome (RLS) documented [facility]* Diagnosis Adult general medical examination- Primary Unspecified general medical examination Atherosclerosis of aorta ([facility]) Atherosclerosis of aorta Type 2 diabetes mellitus without complication, unspecified whether joint terminal attack controller insulin use ([facility]) Immunization due Primary hypertension ([facility]) Unspecified essential hypertension Anemia, unspecified type Hypomagnesemia Disorders of magnesium metabolism [facility]* Diagnosis RLS (restless legs syndrome) Restless legs syndrome (RLS) Carpal tunnel syndrome, bilateral Carpal tunnel syndrome [facility]* Diagnosis Type 2 diabetes mellitus with foot ulcer (CODE) ([facility])- Primary Non-pressure chronic ulcer of other part of right foot with fat layer exposed ([facility]) Type 2 diabetes mellitus with diabetic chronic kidney disease ([facility]) Chronic kidney disease, stage 3a (HCC) ([facility]) Type 2 diabetes mellitus with diabetic cataract ([facility]) Type II or unspecified type diabetes mellitus with ophthalmic manifestations, not stated as uncontrolled Carpal tunnel syndrome, bilateral Carpal tunnel syndrome Irritable bowel syndrome, unspecified type Restless legs syndrome Restless legs syndrome (RLS) Hypothyroidism (acquired) ([facility]) Unspecified hypothyroidism Primary hypertension ([facility]) Unspecified essential hypertension Hypertriglyceridemia ([facility]) Pure hyperglyceridemia Type 2 diabetes mellitus with diabetic cataract, without long-term current use of insulin ([facility]) [E11.36] documented in [facility] [...] syndrome, unspecified type documented in this encounter [facility]* Diagnosis Acute left-sided low back pain with left-sided sciatica RLS (restless legs syndrome) Restless legs syndrome (RLS) Carpal tunnel syndrome, bilateral Carpal tunnel syndrome documented in this encounter [facility]* Diagnosis Onset Date Resolution Status Admit Date Nondisplaced fracture of bas e of fifth metacarpal bone, left hand, initial acute January 09, 2025 2:00pm [facility] Work Phone: Evaluation note* Diagnosis RLS (restless legs syndrome)- Primary Restless legs syndrome (RLS) documented in this encounter [facility]* Diagnosis Acute left-sided low back pain with left-sided sciatica documented in this encounter [facility]* Diagnosis Type 2 diabetes mellitus without complication, without long-term current use of insulin (HCC)- Primary Primary hypertension Unspecified essential hypertension Hypertriglyceridemia Pure hyperglyceridemia Restless legs syndrome Restless legs syndrome (RLS) Encounter for screening mammogram for breast cancer Irritable bowel syndrome, unspecified type Gastroesophageal reflux disease without esophagitis Esophageal reflux documented in this encounter [facility]* Diagnosis Essential hypertension, benign S/P TAVR (transcatheter aortic valve replacement) documented in this encounter [facility] Work Phone: Evaluation note* Diagnosis S/P TAVR (transcatheter aortic valve replacement)- Primary Essential hypertension, benign Mixed hyperlipidemia BMI 34.0-34.9,adult Never smoked tobacco documented in this encounter [facility] Work Phone: History of Present illness Narrative* [...] * 4. Follow-up after testing is done [facility] [employer] DO Work Phone: History of Present illness [...] 1.04, Grad peak/mean 70/37, DI 0.32 * [facility] (02/02/2022): No CAD * CT: 03/08/2022 * MRI: 03/08/2022 * Dental assessment: Regular appointments * STS Score - AVR: Risk of mortality: 1.58% VG-Jkepgshjnf-ZSM [place] [address] [place] Work Phone: History [...] 1.04, Grad peak/mean 70/37, DI 0.32 * [facility] (02/02/2022): No CAD * CT: 03/08/2022 * MRI: 03/08/2022 * Dental assessment: Regular appointments * STS Score - AVR: Risk of mortality: 1.58% -CT Surgery-[place] [facility] [address] [place] Work Phone: History of [...] Score - AVR: Risk of mortality: 1.58% DU-Ulrgzptedu-JIF [place] [address] [place] Work Phone: History of [...] notify me * 6. Follow-up in 6-month [facility] [address] DO Work Phone: history of Present illness [...] heart failure goals. Due For: an echocardiogram. [facility] Work Phone: History of Present illness Narrative* Patient here for [...] * 5. Return back in [address] [facility] 250 DO Work Phone: History of Present [...] check and a BMP in 6 weeks [facility] Heart-[place]iki 250 DO Work Phone: History of Present [...] heart failure goals. Due For: an echocardiogram. AA-Dvfitvhhhd-Kbaance Work Phone: Hospital Discharge instructions* Activity:activity as [...] dischargeYou will follow up with your primary sheet turner in 6-10 weeksYou have been given the [...] have any concerns, you may contact the Architectural Representative orif any of these symptoms become excessive, contact your sheet turner or go to the emergency room. No [...] Up Appointment 2:Physician/Dept/Service: 1 month Structural Heart SIDING COREBOARD INSPECTOR follow-upScheduled Date/Time: 22-Apr-2022 09:00Location: TeleHealth via griddig (MyAppConverter/[email or web address] ) (if you need to change the appointment)Comments: You have been given the order requisition for the 1 month ECHO at the time of your discharge. Please call and schedule this ECHO at your LOCAL center (no sooner than 23 days after your procedure date). * Follow Up Appointment 3:Physician/Dept/Service: 1 year Structural Heart SIDING COREBOARD INSPECTOR follow-upScheduled Date/Time: 17-Mar-2023 09:00Location: TeleHealth via griddig ( MyAppConverter/[email or web address] ) (if you need to change the appointment) [facility] - Pending Review Specialty Diagnoses / Procedures Referred By Contgena t Referred To Contact Physical Therapy Diagnoses S/P right unicompartmental knee replacement Primary osteoarthritis of right knee Procedures CONSULT TO PHYSICAL THERAPY Violet Combs MD [address] [place] [address] Referral ID Status Reason Start Date Expiration Date V isits Requested Visits Authorized [id number] Pending Review 06/01/2022 08/30/2022 1 1 * Diagnostic Procedure Only (Routine) - Closed Specialty Diagnoses / Procedures Referred By Contac t Referred To Contact XR IMAGING Diagnoses S/P right unicompartmental knee replacement Primary osteoarthritis of right knee Procedures XR KNEE GENERAL 4V AP BOTH/PA BOTH/LAT/MERC BILATERAL RADIOLOGIC EXAM KNEE COMPLETE 4/MORE VIEWS Violet Combs MD [address] [place] [address] Xr Imaging Referral ID Status Reason Start Date Expiration Date V isits Requested Visits Authorized [id number] Closed Auto-Generate d Referral 05/26/2022 06/25/2023 1 1 [facility] for referral (narrative)* Diagnostic Procedure Only (Routine) - Closed Specialty Diagnoses / Procedures Referred By Contac t Referred To Contact XR IMAGING Diagnoses S/P revision of total knee, right Procedures XR KNEE POST OP 3V AP/LAT/MERCHANT RIGHT RADIOLOGIC EXAMINATION KNEE 3 VIEWS Lucas Levy PA-C [address] [place] [address] Xr Imaging Referral ID Status Reason Start Date Expiration Date V isits Requested Visits Authorized [id number] Closed Auto-Generate d Referral 09/06/2022 10/06/2023 1 1 [facility] for referral (narrative)* Diagnostic Procedure Only (Routine) - Closed Specialty Diagnoses / Procedures Referred By Contac t Referred To Contact XR IMAGING Diagnoses Status post revision of total knee, right Status post left knee replacement Procedures XR KNEE POST OP 3V AP/LAT/MERCHANT BILATERAL RADIOLOGIC EXAMINATION KNEE 3 VIEWS Violet Combs MD [address] [place] [address] [place] [address] Referral ID Status Reason Start Date Expiration Date V isits Requested Visits Authorized [id number] Closed Auto-Generate d Referral 02/25/2023 03/26/2024 [address] [facility] for referral (narrative)* Consultation (Routine) - Authorized Specialty Diagnoses / Procedures Referred By Dany manrique Referred To Contact Cardiology Diagnoses Essential hypertension, benign Procedures Follow Up In Cardiology Josep Perdomo MD [address] [facility] [address], [address] [place] [address] Josep Perdomo MD [address] [facility] [address], [address] [place] [address] Referral ID Status Reason Start Date Expiration Date V isits Requested Visits Authorized [id number] Authorized 09/09/2023 09/08/2024 1 1 [facility] Work Phone: [facility] for referral (narrative)* Diagnostic Procedure Only (Routine) - Closed Specialty Diagnoses / Procedures Referred By Dany manrique Referred To Contact XR IMAGING Diagnoses Status post revision of total knee, right Status post left knee replacement Procedures XR KNEE POST OP 3V AP/LAT/MERCHANT BILATERAL RADIOLOGIC EXAMINATION KNEE 3 VIEWS Lucas Levy PA-C [address] [place] [address] [place] [address] Referral ID Status Reason Start Date Expiration Date V isits Requested Visits Authorized [id number] Closed Auto-Generate d Referral 07/27/2023 08/25/2024 1 1 [facility] for referral (narrative)* Diagnostic Procedure Only (Routine) - Closed Specialty Diagnoses / Procedures Referred By Dany manrique Referred To Contact XR IMAGING Diagnoses Status post revision of total knee, right Status post left knee replacement Procedures XR KNEE POST OP 3V AP/LAT/MERCHANT BILATERAL RADIOLOGIC EXAMINATION KNEE 3 VIEWS Violet Combs MD [address] [place] [address] [place] [address] Referral ID Status Reason Start Date Expiration Date V isits Requested Visits Authorized [id number] Closed Auto-Generate d Referral 02/25/2023 03/26/2024 [address] [facility] for referral (narrative)* Diagnostic Procedure Only (Routine) - Closed Specialty Diagnoses / Procedures Referred By Contac t Referred To Contact XR IMAGING Diagnoses S/P revision of total knee, right Procedures XR KNEE POST OP 3V AP/LAT/MERCHANT RIGHT RADIOLOGIC EXAMINATION KNEE 3 VIEWS Lucas Levy PA-C [address] [place] [address] [place] [address] Referral ID Status Reason Start Date Expiration Date V isits Requested Visits Authorized [id number] Closed Auto-Generate d Referral 09/06/2022 10/06/2023 1 1 [facility] for referral (narrative)* Diagnostic Procedure Only (Routine) - Closed Specialty Diagnoses / Procedures Referred By Contac t Referred To Contact XR IMAGING Diagnoses S/P right unicompartmental knee replacement Primary osteoarthritis of right knee Procedures XR KNEE GENERAL 4V AP BOTH/PA BOTH/LAT/MERC BILATERAL RADIOLOGIC EXAM KNEE COMPLETE 4/MORE VIEWS Violet Combs MD [address] [place] [address] [place] [address] Referral ID Status Reason Start Date Expiration Date V isits Requested Visits Authorized [id number] Closed Auto-Generate d Referral 05/26/2022 06/25/2023 1 1 [facility] for referral (narrative)* Diagnostic Procedure Only (Routine) - Closed Specialty Diagnoses / Procedures Referred By Contac t Referred To Contact XR IMAGING Diagnoses Status post left knee replacement S/P right unicompartmental knee replacement Procedures XR KNEE POST OP 3V AP/LAT/MERCHANT BILATERAL X-RAY KNEE 3+ VW Lucas Levy PA-C [address] [place] [address] [place] [address] Referral ID Status Reason Start Date Expiration Date V isits Requested Visits Authorized [id number] Closed Auto-Generate d Referral 08/02/2021 09/01/2022 1 1 [facility] for referral (narrative)* Diagnostic Procedure Only (Routine) - Closed Specialty Diagnoses / Procedures Referred By Contac t Referred To Contact XR IMAGING Diagnoses Status post left knee replacement S/P right unicompartmental knee replacement Procedures XR KNEE POST OP 3V AP/LAT/MERCHANT BILAT X-RAY KNEE 3+ VW Lucas Levy PA-C [address] [place] [address] [place] [address] Referral ID Status Reason Start Date Expiration Date V isits Requested Visits Authorized Closed Auto-Generate d Referral 03/26/2021 04/25/2022 1 1 [facility] for referral (narrative)No reason for referral information [facility] N[facility]* Diagnostic Procedure Only (Routine) - Closed Specialty Diagnoses / Procedures Referred By Contac t Referred To Contact XR IMAGING Diagnoses Status post revision of total knee, right Status post left knee replacement Procedures XR KNEE POST OP 3V AP/LAT/MERCHANT BILATERAL RADIOLOGIC EXAMINATION KNEE 3 VIEWS Lucas Levy PA-C [address] [place] [address] [place] [address] Referral ID Status Reason Start Date Expiration Date V isits Requested Visits Authorized [id number] Closed Auto-Generate d Referral 07/27/2023 08/25/2024 1 1 [facility] for visit Narrative* Diagnostic Procedure Only (Routine) - Closed Specialty Diagnoses / Procedures Referred By Contac t Referred To Contact XR IMAGING Diagnoses Status post revision of total knee, right Status post left knee replacement Procedures XR KNEE POST OP 3V AP/LAT/MERCHANT BILATERAL RADIOLOGIC EXAMINATION KNEE 3 VIEWS Violet Combs MD [address] [place] [address] [place] [address] Referral ID Status Reason Start Date Expiration Date V isits Requested Visits Authorized [id number] Closed Auto-Generate d Referral 02/25/2023 03/26/2024 1 1 [facility] for visit Narrative* Diagnostic Procedure Only (Routine) - Closed Specialty Diagnoses / Procedures Referred By Contac t Referred To Contact XR IMAGING Diagnoses S/P revision of total knee, right Procedures XR KNEE POST OP 3V AP/LAT/MERCHANT RIGHT RADIOLOGIC EXAMINATION KNEE 3 VIEWS Lucas Levy PA-C [address] [place] [address] [place] [address] Referral ID Status Reason Start Date Expiration Date V isits Requested Visits Authorized [id number] Closed Auto-Generate d Referral 09/06/2022 10/06/2023 1 1 [facility] for visit Narrative* Diagnostic Procedure Only (Routine) - Closed Specialty Diagnoses / Procedures Referred By Contac t Referred To Contact XR IMAGING Diagnoses S/P right unicompartmental knee replacement Pain due to unicompartmental arthroplasty of knee, subsequent encounter Procedures XR KNEE POST OP 3V AP/LAT/MERCHANT RIGHT RADIOLOGIC EXAMINATION KNEE 3 VIEWS Violet Combs MD [address] [place] [address] [place] [address] Referral ID Status Reason Start Date Expiration Date V isits Requested Visits Authorized [id number] Closed Auto-Generate d Referral 12/09/2021 07/17/2022 1 1 [facility] for visit Narrative* Diagnostic Procedure Only (Routine) - Closed Specialty Diagnoses / Procedures Referred By Contac t Referred To Contact XR IMAGING Diagnoses Status post left knee replacement S/P right unicompartmental knee replacement Procedures XR KNEE POST OP 3V AP/LAT/MERCHANT BILAT X-RAY KNEE 3+ VW Lucas Levy, PA-C [address] [place] [address] [place] [address] Referral ID Status Reason Start Date Expiration Date V isits Requested Visits Authorized Closed Auto-Generate d Referral 03/26/2021 04/25/2022 1 1 [facility] for visit Narrative* Diagnostic Procedure Only (Routine) - Closed Specialty Diagnoses / Procedures Referred By Dany manrique Referred To Contact Radiology / [facility] Diagnoses xray Procedures XR LIBRADO Violet Monterroso MD [address] [place] [address] [facility] [address] [place] [address] Referral ID Status Reason Start Date Expiration Date Visits Re quested Visits Authorized [id number] Closed 02/27/2020 03/17/2020 1 1 [facility] for visit Narrative* CV Imaging (Routine) - Authorized Specialty Diagnoses / Procedures Referred By Dany manrique Referred To Contact Cardiology Diagnoses Essential hypertension, benign S/P TAVR (transcatheter aortic valve replacement) Procedures Transthoracic Echo Complete [place] ECHO TTHRC R-T 2D W/WOM-MODE COMPL SPEC&COLR D Josep Perdomo MD [address] [facility] 2, [address] [address] Phone: tel: fax: Referral ID Status Reason Start Date Expiration Date Visits Requested Visits Authorized [id number] Authorized Perform Procedure 03/16/2024 03/16/2025 1 1 [facility] Work Phone: Advance Directives No Advanced Directives Records FoundDocuments on File Type Date Recorded Patient Access Representative Expl anation Advance Directive(s) 02/04/2020 11:42 AM Advance Directive Response Recorded Date/ Time Advance Directives No December 09 1:18pm Advance Directive Response Recorded Date/ Time Advance Directives No December 09 12:18pm Chief Complaint VIRGILIO JOHNSON is being seen for follow-up of [...] Condition Age at Onset Recorded Date/T ld mother Congestive heart failure Unknown Unknown Hypertension Unknown father Legal blindness Unknown Heart valve disease Unknown sister Disorder of thyroid Unknown father Unknown Heart disease Unknown Diabetes mellitus Unknown mother Heart disease Unknown Chief Complaint and Reason for Visit Chief Complaint Aortic Stenosis Aortic Stenosis i35.0 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 Substernal Goiter Substernal Goiter labs Chief 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 Chief Complaint labs LABS E89.0 Chief Complaint Admit Date [facility] DOI 01/08/25 LT HAND FX WX TBH December 172024 2:00pm Reason for Visit Admit Date Nondisplaced fracture of bas e of fifth metacarpal bone, left hand, initial January 09, 2025 2:00pm Chief Complaint Admit Date [facility] DOI 01/08/25 LT HAND FX WX TBH December 172024 2:00pm *out of cast* February 13, 2025 8:08 am *out of cast*5 WEEKS February 13, 2025 10: 56am Reason for Visit Admit Date Nondisplaced fracture of bas e of fifth metacarpal bone, left hand, initial January 09, 2025 2:00pm Nondisplaced fracture of bas e of fifth metacarpal bone, left hand, initial February 13, 2025 10:56am Chief Complaint Admit Date [facility] DOI 01/08/25 LT HAND FX WX TBH December 172024 2:00pm *out of cast* February 13, 2025 8:08 am *out of cast*5 WEEKS February 13, 2025 10: 56am S62.347A - Nondisplaced fracture of base of fifth March 19, 2025 11:52am 4-5 WEEKS March 19, 2025 4:09pm Reason for Visit Admit Date Nondisplaced fracture of bas e of fifth metacarpal bone, left hand, initial January 09, 2025 2:00pm Nondisplaced fracture of bas e of fifth metacarpal bone, left hand, initial February 13, 2025 10:56am Nondisplaced fracture of bas e of fifth metacarpal bone, left hand, initial March 19, 2025 4:09pm Summary Purpose Reason for Referral Specialty Diagnoses / Procedures Referred By Contac t Referred To Contact Cardiology Diagnoses Essential hypertension, benign S/P TAVR (transcatheter aortic valve replacement) Procedures Transthoracic Echo Complete [place] ECHO TTHRC R-T 2D W/WOM-MODE COMPL SPEC&COLR D Josep Perdomo MD [address] [place] [address] 2, [place] [id number] Referral ID Status Reason Start Date Expiration Date Visits Requested Visits Authorized [id number] Pending Review Perform Procedure 03/16/2024 03/16/2025 1 1 Specialty Diagnoses / Procedures Referred By Dany manrique Referred To Contact Cardiology Diagnoses Essential hypertension, benign Procedures Follow Up In Cardiology Josep Perdomo MD [address] [place], [place] [address] 2, [address] [address] Josep Perdomo MD [address] [place], [place] [address] 2, [address] [address] Referral ID Status Reason Start Date Expiration Date V isits Requested Visits Authorized [id number] Authorized 03/16/2024 03/16/2025 1 1 Additional Source Comments Source Comments (unrecognize d section and content) In the event this informatio n is protected by the Federal Confidentiality of Alcohol and Drug Abuse Patient Records regulations: The Federal rules restrict any use of the information to criminally investigate or prosecute any alcohol or drug abuse patient.[facility] HealthcareIn the event this information is protected by the Federal Confidentiality of Alcohol and Drug Abuse Patient Records regulations: The Federal rules restrict any use of the information to criminally investigate or prosecute any alcohol or drug abuse patient.[facility] HealthcareIn the event this information is protected by the Federal Confidentiality of Alcohol and Drug Abuse Patient Records regulations: The Federal rules restrict any use of the information to criminally investigate or prosecute any alcohol or drug abuse patient.[facility] HealthcareIn the event this information is protected by the Federal Confidentiality of Alcohol and Drug Abuse Patient Records regulations: The Federal rules restrict any use of the information to criminally investigate or prosecute any alcohol or drug abuse patient.[facility] HealthcareIn the event this information is protected by the Federal Confidentiality of Alcohol and Drug Abuse Patient Records regulations: The Federal rules restrict any use of the information to criminally investigate or prosecute any alcohol or drug abuse patient.[facility] HealthcareIn the event this information is protected by the Federal Confidentiality of Alcohol and Drug Abuse Patient Records regulations: The Federal rules restrict any use of the information to criminally investigate or prosecute any alcohol or drug abuse patient.[facility] HealthcareIn the event this information is protected by the Federal Confidentiality of Alcohol and Drug Abuse Patient Records regulations: The Federal rules restrict any use of the information to criminally investigate or prosecute any alcohol or drug abuse patient.[facility] HealthcareIn the event this information is protected by the Federal Confidentiality of Alcohol and Drug Abuse Patient Records regulations: The Federal rules restrict any use of the information to criminally investigate or prosecute any alcohol or drug abuse patient.[facility] HealthcareIn the event this information is protected by the Federal Confidentiality of Alcohol and Drug Abuse Patient Records regulations: The Federal rules restrict any use of the information to criminally investigate or prosecute any alcohol or drug abuse patient.[facility] HealthcareIn the event this information is protected by the Federal Confidentiality of Alcohol and Drug Abuse Patient Records regulations: The Federal rules restrict any use of the information to criminally investigate or prosecute any alcohol or drug abuse patient.[facility] HealthcareIn the event this information is protected by the Federal Confidentiality of Alcohol and Drug Abuse Patient Records regulations: The Federal rules restrict any use of the information to criminally investigate or prosecute any alcohol or drug abuse patient.[facility] HealthcareIn the event this information is protected by the Federal Confidentiality of Alcohol and Drug Abuse Patient Records regulations: The Federal rules restrict any use of the information to criminally investigate or prosecute any alcohol or drug abuse patient.[facility] HealthcareIn the event this information is protected by the Federal Confidentiality of Alcohol and Drug Abuse Patient Records regulations: The Federal rules restrict any use of the information to criminally investigate or prosecute any alcohol or drug abuse patient.[facility] HealthcareIn the event this information is protected by the Federal Confidentiality of Alcohol and Drug Abuse Patient Records regulations: The Federal rules restrict any use of the information to criminally investigate or prosecute any alcohol or drug abuse patient.[facility] HealthcareIn the event this information is protected by the Federal Confidentiality of Alcohol and Drug Abuse Patient Records regulations: The Federal rules restrict any use of the information to criminally investigate or prosecute any alcohol or drug abuse patient.[facility] HealthcareIn the event this information is protected by the Federal Confidentiality of Alcohol and Drug Abuse Patient Records regulations: The Federal rules restrict any use of the information to criminally investigate or prosecute any alcohol or drug abuse patient.[facility] HealthcareIn the event this information is protected by the Federal Confidentiality of Alcohol and Drug Abuse Patient Records regulations: The Federal rules restrict any use of the information to criminally investigate or prosecute any alcohol or drug abuse patient.[facility] HealthcareIn the event this information is protected by the Federal Confidentiality of Alcohol and Drug Abuse Patient Records regulations: The Federal rules restrict any use of the information to criminally investigate or prosecute any alcohol or drug abuse patient.[facility] HealthcareIn the event this information is protected by the Federal Confidentiality of Alcohol and Drug Abuse Patient Records regulations: The Federal rules restrict any use of the information to criminally investigate or prosecute any alcohol or drug abuse patient.[facility] HealthcareIn the event this information is protected by the Federal Confidentiality of Alcohol and Drug Abuse Patient Records regulations: The Federal rules restrict any use of the information to criminally investigate or prosecute any alcohol or drug abuse patient.[facility] HealthcareIn the event this information is protected by the Federal Confidentiality of Alcohol and Drug Abuse Patient Records regulations: The Federal rules restrict any use of the information to criminally investigate or prosecute any alcohol or drug abuse patient.[facility] HealthcareIn the event this information is protected by the Federal Confidentiality of Alcohol and Drug Abuse Patient Records regulations: The Federal rules restrict any use of the information to criminally investigate or prosecute any alcohol or drug abuse patient.[facility] HealthcareIn the event this information is protected by the Federal Confidentiality of Alcohol and Drug Abuse Patient Records regulations: The Federal rules restrict any use of the information to criminally investigate or prosecute any alcohol or drug abuse patient.[facility] HealthcareIn the event this information is protected by the Federal Confidentiality of Alcohol and Drug Abuse Patient Records regulations: The Federal rules restrict any use of the information to criminally investigate or prosecute any alcohol or drug abuse patient.[facility] Reason for Visit (unrecogniz ed section and content) Reason Comments Radiology XR Specialty Diagnoses / Procedures Referred By Contac t Referred To Contact Radiology / [facility] [place] 2[facility] Diagnoses left tkr - 1 year follow up Procedures XR LIBRADO Violet Monterroso MD [address] [place] [address] [facility] [address] [place] [address] Referral ID Status Reason Start Date Expiration Date Visits Re quested Visits Authorized [id number] Closed 02/09/2021 05/10/2021 99 99 Reason Comments Results Reason Comments Forms Extend FMLA Specialty Diagnoses / Procedures Referred By Contac t Referred To Contact Orthopedics / ORTHOPAEDIC SURGERY Diagnoses Encounter for general adult medical examination without abnormal findings DISCUSS SURGERY- REVISION RIGHT TKR Procedures OFFICE/OUTPATIENT ESTABLISHED MOD MDM 30-39 MIN LIBRADO ESTABLISH Self Violet Combs MD [address] [place] [address] Referral ID Status Reason Start Date Expiration Date Visits Re quested Visits Authorized [id number] Closed 05/31/2022 07/17/2022 1 1 Reason Comments New Specialty Diagnoses / Procedures Referred By Contac t Referred To Contact Orthopedics / ORTHOPAEDIC SURGERY Diagnoses SEE DR. COMBS PRIOR TO SURGERY 08/19/22 Procedures OFFICE/OUTPATIENT ESTABLISHED MOD MDM 30-39 MIN LIBRADO ESTABLISH Self Violet Combs MD [address] [place] [address] Referral ID Status Reason Start Date Expiration Date Visits Re quested Visits Authorized [id number] Closed 08/05/2022 07/17/2023 1 1 Reason Comments Established Patient Follow Up Knee Replacement Specialty Diagnoses / Procedures Referred By Contac t Referred To Contact ORTHOPAEDIC SURGERY Diagnoses Encounter for follow-up examination after completed treatment for conditions other than malignant neoplasm Procedures FOLLOW-UP/REASSESSMENT Post Op Revision Knee Lucas Levy PA-C [address] [place] [address] [facility] [address] [place] [address] Referral ID Status Reason Start Date Expiration Date Visits Re quested Visits Authorized [id number] Closed 09/06/2022 12/05/2022 1 0 Reason Comments Established Patient Follow Up Knee Replacement Specialty Diagnoses / Procedures Referred By Contac t Referred To Contact Orthopedics / ORTHOPAEDIC SURGERY Diagnoses Follow-up examination POST OP REVISION KNEE Procedures OFFICE/OUTPATIENT ESTABLISHED MOD MDM 30-39 MIN [place] [address] [place] [address] Referral ID Status Reason Start Date Expiration Date Visits Re quested Visits Authorized [id number] Closed 09/29/2022 12/28/2022 1 0 Reason Comments Follow Up Established Patient Knee Replacement Specialty Diagnoses / Procedures Referred By Contac t Referred To Contact Orthopedics / ORTHOPAEDIC SURGERY Diagnoses Follow-up examination Follow up right knee - surgery Aug 2022 Procedures OFFICE/OUTPATIENT ESTABLISHED MOD MDM 30-39 MIN [place]RADO [place] [address] [place] [address] Referral ID Status Reason Start Date Expiration Date Visits Re quested Visits Authorized [id number] Closed 02/28/2023 07/17/2023 1 1 Specialty Diagnoses / Procedures Referred By Contac t Referred To Contact Orthopedics / ORTHOPAEDIC SURGERY Diagnoses Status post revision of total knee, right Status post left knee replacement BILATERAL KNEE PAIN FOLLOW UP Procedures OFFICE/OUTPATIENT ESTABLISHED MOD MDM 30 MIN LIBRADO ESTABLISH Self Lucas Levy PA-C [address] [place] [address] Referral ID Status Reason Start Date Expiration Date Visits Re quested Visits Authorized [id number] Closed 07/29/2023 07/17/2024 1 1 Reason Comments Follow-up Hypertension Specialty Diagnoses / Procedures Referred By Contac t Referred To Contact Radiology / [facility] Diagnoses Status post revision of total knee, right Status post left knee replacement BILATERAL KNEE XRAYS ORDER NEEDS LINKED Procedures RADIOLOGIC EXAMINATION KNEE 3 VIEWS XR LIBRADO GENERAL Self [facility] [address] [place] [address] Referral ID Status Reason Start Date Expiration Date Visits Re quested Visits Authorized [id number] Closed 07/29/2023 07/17/2024 1 1 Reason Comments Radiology XR Specialty Diagnoses / Procedures Referred By Contac t Referred To Contact XR IMAGING Diagnoses S/P right unicompartmental knee replacement Primary osteoarthritis of right knee Procedures XR KNEE GENERAL 4V AP BOTH/PA BOTH/LAT/MERC BILATERAL RADIOLOGIC EXAM KNEE COMPLETE 4/MORE VIEWS Violet Combs MD [address] [place] [address] [place] [address] Referral ID Status Reason Start Date Expiration Date V isits Requested Visits Authorized [id number] Closed Auto-Generate d Referral 05/26/2022 06/25/2023 1 1 Specialty Diagnoses / Procedures Referred By Gavinac t Referred To Contact XR IMAGING Diagnoses Status post left knee replacement S/P right unicompartmental knee replacement Procedures XR KNEE POST OP 3V AP/LAT/MERCHANT BILATERAL X-RAY KNEE 3+ VW Lucas Levy, PA-C [address] [place] [address] [place] [address] Referral ID Status Reason Start Date Expiration Date V isits Requested Visits Authorized [id number] Closed Auto-Generate d Referral 08/02/2021 09/01/2022 1 [...] Up In Cardiology Josep Perdomo MD [address] [facility] 2, [address] [address] Josep Perdomo MD [address] [place] [address], [address] [address] Referral ID Status Reason Start Date Expiration Date V isits Requested Visits Authorized [id number] Authorized 09/09/2023 09/08/2024 1 1 Reason Onset Date Comments Med Refill 10/15/2024 Reason Onset Date Comments Med Refill 11/12/2024 Reason Onset Date Comments Med Refill 01/14/2025 Reason Comments Annual Exam 1 year follow up for Mixed hyperlipidemia Specialty Diagnoses / Procedures Referred By Contgena t Referred To Contact Cardiology Diagnoses Essential hypertension, benign Procedures Follow Up In Cardiology Josep Perdomo MD [address] [place] [address], [address] [address] Phone: tel: fax: Josep Perdomo MD [address] [place] [address], [address] [address] Phone: tel: fax: Referral ID Status Reason Start Date Expiration Date V isits Requested Visits Authorized [id number] Authorized 03/16/2024 03/16/2025 1 1 Care Teams (unrecognized sec tion and content) Mat Making Machine Tender Relationship Specialty Start Date End Date Oswaldo Grewal MD [address] [place] [address] PCP - General Family Practice 06/09/18 Mat Making Machine Tender Relationship Specialty Start Date End Date Oswaldo Grewal MD [address] [place] [address] PCP - General Family Practice 06/09/18 Team Status: Inactive Member Role Status Dates Yajaira Bhardwaj APRN SIDING COREBOARD INSPECTOR-C Primary Care Provider Natalya Perdomo MD Attending Provider Active Team Status: Inactive Member Role Status Dates Yajaira Bhardwaj APRN SIDING COREBOARD INSPECTOR-Leonardo Primary Care Provider Activ amado Jordan MD Attending Provider Active Team Status: Active Member Role Status Dates Yajaira Bhardwaj APRN SIDING COREBOARD INSPECTOR-C Primary Care Provider Activ e Mat Making Machine Tender Relationship Specialty Start Date End Date Oswaldo Grewal MD [address] [place] [phone] PCP - General Family Medicine 06/09/18 Team Status: Inactive Member Role Status Dates Yajaira Bhardwaj APRN SIDING COREBOARD INSPECTOR-C Primary Care Provider Activ e Spenser Canchola DO Attending Provider Active Mat Making Machine Tender Relationship Specialty Start Date End Date Oswaldo Grewal MD [address] [place] [address] PCP - General Family Medicine 06/09/18 Team Status: Inactive Member Role Status Dates Noemi Daniels NP Primary Care Provider Active Spenser Canchola DO Attending Provider Active Team Status: Active Member Role Status Dates Noemi Daniels NP Primary Care Provider Active Team Status: Inactive Member Role Status Dates Noemi Daniels NP Primary Care Provider, Attending Pro vider Active Mat Making Machine Tender Relationship Specialty Start Date End Date Oswaldo Grewal MD [address] [place] [phone] PCP - General Family Medicine 06/09/18 Mat Making Machine Tender Relationship Specialty Start Date End Date Oswaldo Grewal MD [address] [place] [phone] PCP - General Family Medicine 06/09/18 Josep Perdomo A [address] [place] [address], [place] [address] Cardiology 08/04/22 Mat Making Machine Tender Relationship Specialty Start Date End Date Oswaldo Grewal MD [address] [place] [phone] PCP - General Family Medicine 06/09/18 Sarah ePrdomof A [address] [place] [address], [place] [address] Cardiology 08/04/22 Mat Making Machine Tender Relationship Specialty Start Date End Date Oswaldo Grewal MD [address] [place] [phone] PCP - General Family Medicine 06/09/18 FlaquitamayaQuoc harrisonf A [address] [place] [address] Cardiology 08/04/22 Mat Making Machine Tender Relationship Specialty Start Date End Date Oswaldo Grewal MD [address] [place] [phone] PCP - General Family Medicine 06/09/18 Quoc Perdomof A [address] [place] [address] Cardiology 08/04/22 Mat Making Machine Tender Relationship Specialty Start Date End Date Oswaldo Grewal MD [address] [place] [address] PCP - General Family Medicine 06/09/18 [facility] [address] [place] [address] Cardiology 08/04/22 Mat Making Machine Tender Relationship Specialty Start Date End Date Oswaldo Grewal MD [address] [place] [address] PCP - General Family Medicine 06/09/18 [facility] [address] [place] [address] Cardiology 08/04/22 Mat Making Machine Tender Relationship Specialty Start Date End Date Oswaldo Grewal MD [address] [place] [phone] PCP - General Family Medicine 06/09/18 Josep Perdomo [address] [place] [phone] Cardiology 08/04/22 Mat Making Machine Tender Relationship Specialty Start Date End Date Oswaldo Grewal MD [address] [place] [address] PCP - General Family Medicine 06/09/18 Josep Perdomo [address] [place] [phone] Cardiology 08/04/22 Mat Making Machine Tender Relationship Specialty Start Date End Date Oswaldo Grewal MD [address] [place] [address] PCP - General Family Medicine 06/09/18 Josep Perdomo MD [address] [place] [address] Cardiology 08/04/22 Mat Making Machine Tender Relationship Specialty Start Date End Date Oswaldo Grewal MD [place] [address] [place] [phone] PCP - General 12/18/18 Mat Making Machine Tender Relationship Specialty Start Date End Date Oswaldo Grewal MD [address] [place] [address] PCP - General Family Medicine 06/09/18 Josep Perdomo MD [address] [place] [address] Cardiology 08/04/22 Mat Making Machine Tender Relationship Specialty Start Date End Date Oswaldo Grewal MD [address] [place] [address] PCP - General Family Medicine 06/09/18 Josep Perdomo MD [address] [place] [address] Cardiology 08/04/22 Mat Making Machine Tender Relationship Specialty Start Date End Date Oswaldo Grewal MD [address] [place] [address] PCP - General Family Medicine 06/09/18 Josep Perdomo MD [address] [place] [address] Cardiology 08/04/22 Mat Making Machine Tender Relationship Specialty Start Date End Date Oswaldo Grewal MD [address] [place] [address] PCP - General Family Medicine 06/09/18 Josep Perdomo MD [address] [place] [address] Cardiology 08/04/22 Mat Making Machine Tender Relationship Specialty Start Date End Date Oswaldo Grewal MD [address] [place] [address] PCP - General Family Medicine 06/09/18 Mat Making Machine Tender Relationship Specialty Start Date End Date Oswaldo Grewal MD [address] [place] [address] PCP - General Family Medicine 06/09/18 Mat Making Machine Tender Relationship Specialty Start Date End Date Oswaldo Grewal MD [address] [place] [address] PCP - General Family Medicine 06/09/18 Mat Making Machine Tender Relationship Specialty Start Date End Date Oswaldo Grewal MD [address] [place] [address] PCP - General Family Medicine 06/09/18 Mat Making Machine Tender Relationship Specialty Start Date End Date Oswaldo Grewal MD [address] [place] [address] PCP - General Family Medicine 06/09/18 Mat Making Machine Tender Relationship Specialty Start Date End Date Oswaldo Grewal MD [address] [place] [phone] PCP - General Family Medicine 06/09/18 Mat Making Machine Tender Relationship Specialty Start Date End Date Oswaldo Grewal MD [address] [place] [phone] PCP - General Family Medicine 12/04/22 Guerline Obrien NP [address] [place] [address] Nurse Practitioner Pulmonary Disease 09/20/23 Noemi Argueta NP [address] [place], [place] [phone] Nurse Practitioner Family Medicine 09/20/23 Mat Making Machine Tender Relationship Specialty Start Date End Date Oswaldo Grewal MD [address] [place] [address] PCP - General Family Medicine 12/04/22 Guerline Obrien SIDING COREBOARD INSPECTOR [address] [place] [address] Nurse Practitioner Pulmonary Disease 09/20/23 Noemi Argueta, SIDING COREBOARD INSPECTOR [address] [place] [address] Nurse Practitioner Family Medicine 09/20/23 Mat Making Machine Tender Relationship Specialty Start Date End Date Oswaldo Grewal MD [address] [place] [phone] PCP - General Family Medicine 12/04/22 Guerline Obrien NP [address] [place] [address] Nurse Practitioner Pulmonary Disease 09/20/23 Noemi Argueta, SIDING COREBOARD INSPECTOR [address] [place] [phone] Nurse Practitioner Family Medicine 09/20/23 Mat Making Machine Tender Relationship Specialty Start Date End Date Oswaldo Grewal MD [address] [place] [address] PCP - General Family Medicine 12/04/22 Guerline Obrien, SIDING COREBOARD INSPECTOR [address] [place] [address] Nurse Practitioner Pulmonary Disease 09/20/23 Noemi Argueta, KEO [address] [place] [address] Nurse Practitioner Family Medicine 09/20/23 Mat Making Machine Tender Relationship Specialty Start Date End Date Oswaldo Grewal MD [address] [place] [address] PCP - General Family Medicine 12/04/22 Guerline Obrien, SIDING COREBOARD INSPECTOR [address] [place] [address] Nurse Practitioner Pulmonary Disease 09/20/23 Noemi Argueta NP [address] [place] [address] Nurse Practitioner Family Medicine 09/20/23 Mat Making Machine Tender Relationship Specialty Start Date End Date Oswaldo Grewal MD [address] [place] [address] PCP - General Family Medicine 12/04/22 Guerline Obrien, SIDING COREBOARD INSPECTOR [address] [place] [address] Nurse Practitioner Pulmonary Disease 09/20/23 Noemi Argueta NP [address] [place] [address] Nurse Practitioner Family Medicine 09/20/23 Mat Making Machine Tender Relationship Specialty Start Date End Date Oswaldo Grewal MD [address] [place] [address] PCP - General Family Medicine 12/04/22 Guerline Obrien NP [address] [place] [address] Nurse Practitioner Pulmonary Disease 09/20/23 Noemi Argueta NP [address] [place] [address] Nurse Practitioner Family Medicine 09/20/23 Mat Making Machine Tender Relationship Specialty Start Date End Date Oswaldo Grewal MD [address] [place] [address] PCP - General Family Medicine 12/04/22 Guerline Obrien NP [address] [place] [address] Nurse Practitioner Pulmonary Disease 09/20/23 Noemi Argueta NP [address] [place] [address] Nurse Practitioner Family Medicine 09/20/23 Mat Making Machine Tender Relationship Specialty Start Date End Date Oswaldo Grewal MD [place] [address] [place] [phone] PCP - General 12/18/18 Mat Making Machine Tender Relationship Specialty Start Date End Date Oswaldo Grewal MD [address] [place] [address] PCP - General Family Medicine 12/04/22 Guerline Obrien NP [address] [place] [phone] Nurse Practitioner Pulmonary Disease 09/20/23 Noemi Argueta NP [address] [place] [address] Nurse Practitioner Family Medicine 09/20/23 Mat Making Machine Tender Relationship Specialty Start Date End Date Oswaldo Grewal MD [address] [place] [address] PCP - General Family Medicine 12/04/22 Guerline Obrien NP [address] [place] [address] Nurse Practitioner Pulmonary Disease 09/20/23 Noemi Argueta NP [address] [place] [address] Nurse Practitioner Family Medicine 09/20/23 Mat Making Machine Tender Relationship Specialty Start Date End Date Oswaldo Grewal MD [address] [place] [address] PCP - General Family Medicine 12/04/22 Guerline Obrien NP [address] [place] [address] Nurse Practitioner Pulmonary Disease 09/20/23 Noemi Argueta NP [address] [place] [address] Nurse Practitioner Family Medicine 09/20/23 Mat Making Machine Tender Relationship Specialty Start Date End Date Oswaldo Grewal MD [address] [place] [address] PCP - General Family Medicine 12/04/22 Guerline Obrien NP [address] [place] [address] Nurse Practitioner Pulmonary Disease 09/20/23 Noemi Argueta NP [address] [place] [address] Nurse Practitioner Family Medicine 09/20/23 Mat Making Machine Tender Relationship Specialty Start Date End Date Oswaldo Grewal MD [address] [place] [address] PCP - General Family Medicine 12/04/22 Guerline Obrien NP [address] [place] [address] Nurse Practitioner Pulmonary Disease 09/20/23 Noemi Argueta NP [address] [place] [address] Nurse Practitioner Family Medicine 09/20/23 Mat Making Machine Tender Relationship Specialty Start Date End Date Oswaldo Grewal MD [address] [place] [address] PCP - General Family Medicine 12/04/22 Guerline Obrien NP [address] [place] [phone] Nurse Practitioner Pulmonary Disease 09/20/23 Noemi Argueta NP [address] [place] [address] Nurse Practitioner Family Medicine 09/20/23 Mat Making Machine Tender Relationship Specialty Start Date End Date Oswaldo Grewal MD [address] [place] [address] PCP - General Family Medicine 12/04/22 Guerline Obrien NP [address] [place] [phone] Nurse Practitioner Pulmonary Disease 09/20/23 Noemi Argueta NP [address] [place] [address] Nurse Practitioner Family Medicine 09/20/23 Mat Making Machine Tender Relationship Specialty Start Date End Date Oswaldo Grewal MD [address] [place] [address] PCP - General Family Medicine 12/04/22 Guerline Obrien NP [address] [place] [address] Nurse Practitioner Pulmonary Disease 09/20/23 Noemi Argueta NP [address] [place] [address] Nurse Practitioner Family Medicine 09/20/23 Mat Making Machine Tender Relationship Specialty Start Date End Date Oswaldo Grewal MD [address] [place] [address] PCP - General Family Medicine 12/04/22 Guerline Obrien NP [address] [place] [address] Nurse Practitioner Pulmonary Disease 09/20/23 Noemi Argueta NP [address] [place] [address] Nurse Practitioner Family Medicine 09/20/23 Team Status: Active Member Role Status Dates Oswaldo Grewal MD Primary Care Provider Active Team Status: Inactive Member Role Status Dates Esther Palomares MD Attending Provider Active Start: January 09, 2025 End: January 09, 2025 Oswaldo Grewal MD Primary Care Provider Active S tart: January 09, 2025 End: January 09, 2025 Mat Making Machine Tender Relationship Specialty Start Date End Date Oswaldo Grewal MD [address] [place] [address] PCP - General Family Medicine 12/04/22 Guerline Obrien NP [address] [place] [address] Nurse Practitioner Pulmonary Disease 09/20/23 Mat Making Machine Tender Relationship Specialty Start Date End Date Oswaldo Grewal MD [address] [place] [address] PCP - General Family Medicine 12/04/22 Guerline Obrien NP [address] [place] [address] Nurse Practitioner Pulmonary Disease 09/20/23 Mat Making Machine Tender Relationship Specialty Start Date End Date Oswaldo Grewal MD [address] [place] [address] PCP - General Family Medicine 12/04/22 Guerline Obrien NP [address] [place] [address] Nurse Practitioner Pulmonary Disease 09/20/23 Mat Making Machine Tender Relationship Specialty Start Date End Date Oswaldo Grewal MD [address] [place] [address] PCP - General 12/18/18 Team Status: Active Member Role Status Dates Oswaldo Grewal MD Primary Care Provider Active S tart: February 13, 2025 Esther Palomares MD Attending Provider Active Start: February 13, 2025 Team Status: Inactive Member Role Status Dates Oswaldo Grewal MD Primary Care Provider Active S tart: February 13, 2025 End: February 13, 2025 Esther Palomares MD Attending Provider Active Start: February 13, 2025 End: February 13, 2025 Mat Making Machine Tender Relationship Specialty Start Date End Date Oswaldo Grewal MD [address] [place] [address] PCP - General Family Medicine 12/04/22 Guerline Obrien NP [address] [place] [address] Nurse Practitioner Pulmonary Disease 09/20/23 Mat Making Machine Tender Relationship Specialty Start Date End Date Oswaldo Grewal MD [address] [place] [address] PCP - General 12/18/18 Team Status: Active Member Role Status Dates Oswaldo Grewal MD Primary Care Provider Active S tart: March 19, 2025 Esther Palomares MD Attending Provider Active Start: March 19, 2025 Team Status: Inactive Member Role Status Dates Oswaldo Grewal MD Primary Care Provider Active S tart: March 19, 2025 End: March 19, 2025 Esther Palomares MD Attending Provider Active Start: March 19, 2025 End: March 19, 2025 <item> Privacy Markings (unrecogniz ed section and content) Section Author: Meagan Mabry PROHIBITION ON REDISCLOSURE OF CONFIDENTIAL INFORMATION This notice accompanies a disclosure of information concerning a client made to you with the consent of such client. Goals (unrecognized section and content) Goals may be documented in a n alternate section INFORMATION SOURCE (unrecogn ized section and content) DATE CREATED AUTHOR 08/21/2022 [facility] DATE CREATED AUTHOR AUTHOR'S ORGANIZ ATION 10/10/2022 [facility] DATE CREATED AUTHOR AUTHOR'S ORGANIZ ATION 03/18/2023 [facility] DATE CREATED AUTHOR AUTHOR'S ORGANIZ ATION 03/18/2023 [employer] DATE CREATED AUTHOR AUTHOR'S ORGANIZ ATION 09/04/2023 [facility] DATE CREATED AUTHOR AUTHOR'S ORGANIZ ATION 08/08/2024 [facility] DATE CREATED AUTHOR AUTHOR'S ORGANIZ ATION 02/03/2025 [facility] DATE CREATED AUTHOR AUTHOR'S ORGANIZ ATION 02/08/2025 [facility] DATE CREATED AUTHOR AUTHOR'S ORGANIZ ATION 03/17/2025 [facility] DATE CREATED AUTHOR AUTHOR'S ORGANIZ ATION 03/21/2025 [facility] FOR RECORDS PERTAINING TO PATIENTS WHO ARE [...] BE BASED ON THE PRIMARY CLINICAL RECORDS. [facility] [employer] [facility]. provides no warranty or guarantee of the accuracy or completeness of information in this document.
[2025-04-06 09:23] LABS: Hematocrit 34.0 % (36.0-48.0); Hemoglobin 11.2 g/dL (12.0-16.0); Immature Granulocytes Abs Auto 0.02 10^3/uL (0.00-0.03); Immature Granulocytes Pct Auto 0.3 % (0.0-0.5); Lymphocytes Absolute Auto 1.9 10^3/uL (1.2-3.8); Mean Corpuscular HGB Conc 32.9 g/dL (29.9-35.2); Mean Corpuscular Hemoglobin 30.6 pg (26.7-34.0); Mean Corpuscular Volume 92.9 fL (81.0-99.0); Platelet Count 250 10^3/uL (150-450); Red Blood Count 3.66 10^6/uL (4.20-5.40); White Blood Count 6.1 10^3/uL (4.0-11.0)
[2025-04-06 10:11] LABS: Alanine Aminotransferase 26 U/L (14-59); Albumin Globulin Ratio 1.0; Albumin Level 3.8 g/dL (3.4-5.0); Alkaline Phosphatase 90 U/L (46-116); Anion Gap 18.1; Aspartate Amino Transferase 16 U/L (15-37); Blood Urea Nitrogen 27.0 mg/dL (7.0-18.0); Calcium 8.6 mg/dL (8.5-10.1); Carbon Dioxide 19.6 mmol/L (21.0-32.0); Chloride 109 mmol/L (98-107); Cholesterol 180 mg/dL (<=200); Estimated GFR (African America >60 (>=60 mL/min/1.73m^2); Estimated GFR (Non-African Ame 57 (>=60 mL/min/1.73m^2); Globulin 3.7 g/dL; Glucose 116 mg/dL (74-106); HDL Cholesterol 62 mg/dL (40-60); Potassium 3.7 mmol/L (3.5-5.1); Sodium 143 mmol/L (136-145); Total Protein 7.5 g/dL (6.4-8.2); Triglycerides 121 mg/dL (<=150); VLDL CHOLESTEROL 24.2 mg/dL
[2025-04-06 10:22] LABS: Free T3 2.60 pg/mL (2.18-3.98); Magnesium 1.8 mg/dL (1.8-2.4); Thyroid Stimulating Hormone 12.340 uIU/mL (0.358-3.740)
[2025-04-06 10:32] LABS: Iron 63.0 ug/dL (50.0-170.0); Percent Iron Saturation 21.1 %; Total Iron Binding Capacity 299.0 ug/dL (250.0-450.0)
[2025-04-06 12:12] LABS: Folate 14.40 ng/mL (8.60-58.90)
== END 2025-04-06 08:40 | disposition home or self-care (01) ==
PROVIDERS: PCP Family Medicine; Visit Provider Family Medicine
DX: E83.42 Hypomagnesemia (principal); I10 Essential (primary) hypertension; E11.621 Type 2 diabetes mellitus with foot ulcer; E78.1 Pure hyperglyceridemia; E03.9 Hypothyroidism, unspecified; Z95.2 Presence of prosthetic heart valve; E78.2 Mixed hyperlipidemia
CPT/HCPCS: 36415; 80053; 80061; 82746; 83036; 83540; 83550; 83735; 84439; 84443; 84450; 84460; 84481; 85025

== ENCOUNTER 2025-04-06 08:45 | Outpatient (OUT) | payer OTHER, SELFPAY ==
--- OUTSIDE RECORDS SUMMARY | 2025-04-06 08:50 | XMS_ITS | CCD ---
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 Name Role Phone Oswaldo Grewal MD Primary Care Provider Oswaldo Grewal Unavailable Unavailable Unavailable Kindra Peralta Unavailable MARY KATE Bhardwaj Primary Care Provider MD Josep Perdomo Attending Provider MD Jose Jordan Attending Provider Oswaldo Grewal Unavailable Lashon Longoria Unavailable Josep Perdomo Unavailable Abdiaziz Nash Unavailable Unavailable Amanda Saucedo Unavailable Unavailable Oswaldo Grewal MD Primary Care Provider MARY KATE Bhardwaj Primary Care Provider DO Spensre Canchola Attending Provider MARY KATE Bhardwaj Primary Care Provider [phone] DO Spenser Canchola Attending Provider Oswaldo Grewal MD Primary Care Provider KEO Daniels Primary Care Provider KEO Daniels Attending Provider Josep Perdomo Unavailable [phone] VIOLET COMBS Admitting Unavailable VIOLET COMBS Attending Unavailable OSWALDO GREWAL Primary Care Unavailable KEO Daniels Primary Care Provider Unavailab le DO Spenser [place]chola Attending Provider KEO Daniels Attending Provider Unavailable JEREMIAH, NOEMI Admitting Unavailable JEREMIAH, NOEMI Attending Unavailable KIEPERT, YAJAIRA Primary Care Unavailable MISC, DR HUSSEIN Admitting Unavailable MISC, DR HUSSEIN Attending Unavailable KIEPERT, YAJAIRA Primary Care Unavailable MISC, DOCTOR Consulting Unavailable JEREMIAH, NOEMI Admitting Unavailable JEREMIAH, [...] DR HUSSEIN Consulting Unavailable Josep Perdomo Unavailable [phone] Conor, Dr. Carrasco Attending Unavaila ble Grewal, [...] Primary Care Unavailable SELF Referring Unavailable SCOTCH, LCUAS Attending Unavailable GREWAL, OSWALDO YENY Primary Care Unavailable Uri FLORES, Oswaldo Collado Primary Care Provider Oswaldo Grewal MD Primary Care Provider Oswaldo Grewal MD Primary Care Provider [phone] Shawn TIN CAN FEEDER, Guerline R Unavailable [phone] Ashley TIN CAN FEEDER, Noemi Unavailable Violet Combs Attending Unavailable Violet Combs C Admitting Unavailable GREWAL, OSWALDO A Primary Care Unavailable Esther Palomares MD Attending Provider [phone] Uri FLORES, Oswaldo Primary Care Provider WARSANTANA, [...] Grewal MD Primary Care Provider JOSEP PERDOMO Referring Unavailable GREWAL, OSWALDO YENY [...] Latex; Translations: [LATEX] Drug Intolerance 3 Intolerance [facility] (12 sources) Penicillins; Translations: [PENICILLINS] Drug Allergy 3 Rash [facility] (20 sources) dorzolamide; Translations: [Trusopt] Drug Allergy 4 Unknown [facility] 250 DO Work Phone: (20 sources) dorzolamide / Timolol; Translations: [Cosopt] Drug Allergy 4 Unknown [facility] 250 DO Work Phone: (20 sources) Levalbuterol; Translations: [levalbuterol] Drug Allergy 4 Unknown [facility] 250 DO Work Phone: (18 sources) Penicillins; Translations: [Penicillins] Allergy to drug (finding) Unknown [facility] 250 DO Work Phone: (20 sources) Timolol; Translations: [timolol] Drug Allergy 4 Unknown [facility] 250 DO Work Phone: (17 sources) Brimonidine Tartrate POWD; Translations: [Brimonidine Tartrate POWD] Allergy to drug (finding) [facility] 250 DO Work Phone: (7 sources) Penicillin G Drug Allergy 5 [facility] (13 sources) Elastic Propensity to adverse reactions 2 [facility] Comment on above: [place] (1 source) brimonidine Drug Allergy Unknown [facility] (1 source) dorzolamide Drug Allergy Unknown [facility] (1 source) dorzolamide / Timolol Drug Allergy Unknown [facility] (20 sources) Penicillins Drug Allergy 3 Rash, Unknown [facility] (3 sources) Adhesive Tape Allergy to substance (finding) [facility] 250 DO Work Phone: (1 source) Penicillins Drug allergy (disorder) 5 [facility] (6 sources) brimonidine; Translations: [BRIMONIDINE] Drug Allergy 4 Unknown [facility] Work Phone: (20 sources) brimonidine Drug Allergy 4 Unknown [facility] (20 sources) Latex Propensity to adverse reactions 3 [facility] (20 sources) Penicillins Drug Allergy 3 Rash [facility] (20 sources) Other Allergy to substance 1 [facility] (1 source) quynh bandage; Translations: [Unknown] Propensity to adverse reactions to drug (disorder) [facility] Repository (2 sources) Penicillins Drug Allergy 4 Unknown [facility] Work Phone: (2 sources) dorzolamide; Translations: [DORZOLAMIDE] Drug Allergy 4 [facility] Repository (2 sources) dorzolamide / Timolol; Translations: [DORZOLAMIDE-TI MOLOL] Drug Allergy 4 [facility] Medications Current Medications Medication Drug Class(es) [...] hours as needed for pain HYDROcodone-acetamin ophen (Salkum) 5-325 MG tablet Indications: Pain Take 1 [...] on above: Take 1 tablet by pernell every afternoon. dexamethasone 0.001 mg/mg / neomycin 0.0035 mg/mg / polymyxin b 10 unt/mg ophthalmic ointment (20 sources) Aminoglycoside Antibacterial, Polymyxin-class Antibacterial, Corticosteroid Start: 024 End: 025 neomycin-polymyxin -dexAMETHasone (Polydex) 3.5-22068-2.1 ointment ophthalmic ointment APPLY 1/2 INCH INTO BOTH EYES TWICE A DAY 11/14/2023 09/17/2024 Discontinued (Patient refused) dextromethorphan hydrobromide 30 mg / pyrilamine maleate 30 mg oral tablet (2 sources) Uncompetitive F-cdntqh-N-aspartate Receptor Antagonist, Sigma-1 Agonist Start: [place] DMT 30-30 MG as directed Orally every [...] Comment on above: TWO TABS ONE HOUR VT IOR TO DENTAL PROCEDURE AND TWO TABS [...] Comment on above: Take 1 capsule by [facility] twice daily as needed for Constipation. doxycycline [...] Comment on above: Take 1 tablet by prenell th once daily. hydroCHLOROthiazide 25 mg / [...] Translations: [Chronic kidney disease, stage 3a (HCC) ([facility]/HCC)] 08-03-2024 Chronic Chronic ulcer of skin (6 [...] Chronic Unclassified (2 sources) AORTIC STENOSIS/ CPT- 71376 03-11-2022 Comment on above: AORTIC STENOSIS/ CPT - 62745 Unclassified (2 sources) Primary hypertension 03-19-2022 Unclassified (1 source) 1 MONTH F/U POST TAVR 03-10-2022 Comment on above: 1 MONTH F/U POST TAV R Unclassified (1 source) [facility] [place] [place] OP CATH AORTIC STENOSIS MT 12-23-2021 Comment on above: [facility] [place] [place] OP CATH AORTIC STENOSIS MT Unclassified (1 [...] 3 11-29-2022 Chronic Other aftercare (1 source) intermediate designer (current) use of non-steroidal anti-inflammatories (NSAID); Translations: [halfway (current) use of non-steroidal non-inflam (NSAID)] Onset: [...] By: Wu Peralta on 03-19-2025 Study report [facility] [address] [place] [address] XRay Report Signed Patient: Virgilio Johnson MR#: [id number] : 1960 Acct:[id number] Age/Sex: 65 / F ADM Date: 5 Loc: [facility] Room: Type: [facility] Attending Dr: Esther Palomares MD Copies [...] Peralta M.D. 03/19/2025 10:38 PM Dictation Location: [place] [address] Transcribed By: [facility] 03/19/252237 Dictated By: Masood Peralta DO 03/19/252236 Signed By: 03/19/252237 [facility] XR hand LT min 3V*on 025 XR hand LT min 3V* [facility] [place] [address] XRay Report Signed Patient: Virgilio Johnson MR#: [id number] : 1960 Acct:[id number] Age/Sex: 65 / F ADM Date: 03/19/25 Loc: [facility] Room: Type: [facility] CLI Attending Dr: Esther Palomares MD Copies [...] Peralta M.D. 03/19/2025 10:38 PM Dictation Location: [place] [address] Transcribed By: [facility] 03/19/252237 Dictated By: Masood Peralta DO 03/19/252236 Signed By: 03/19/252237 Normal [facility] X-ray reportOrdered By: Koko Monge on 02-13-2025 Study report [facility] [address] [place] [address] XRay Report Signed Patient: Virgilio Johnson MR#: [id number] : 1960 Acct:[id number] Age/Sex: 64 / F ADM Date: 5 Loc: [facility]: [facility] Attending Dr: Esther Palomares MD Copies to: [...] Monge M.D. 02/13/2025 5:00 PM Dictation Location: [place] [address] Transcribed By: [facility] 02/13/25 170 Dictated By: Koko Monge II, MD 02/13/25 165 Signed By: 02/13/25 170 [facility] Work Phone: XR hand LT min 3V*on 025 XR hand LT min 3V* [facility] [address] [place] [address] XRay Report Signed Patient: Virgilio Johnson MR#: [id number] : 1960 Acct:[id number] Age/Sex: 64 / F ADM Date: 02/13/25 Loc: [facility] Room: Type: [facility] Attending Dr: Esther Palomares MD Copies [...] Monge M.D. 02/13/2025 5:00 PM Dictation Location: [facility] Transcribed By: [facility] 02/13/25 1700 Dictated By: Koko Monge II, MD 02/13/25 167 Signed By: 02/13/25 1700 Normal [facility] TRANSTHORACIC ECHO (TTE) COM PLETEon 02-04-2025 TRANSTHORACIC ECHO (TTE) COMPLETE [facility] [address] [place] [address], [address], [place] [address] TRANSTHORACIC ECHOCARDIOGRAM REPORT Patient Name: VIRGILIO JOHNSON Reading Physician: [id number] Perdomo MD Study Date: 02/04/2025 Ordering Provider: Ceasar PERDOMO MRN/PID: [id number] Fellow: Nurse: Date of /Age: 8 1960 Records Management Assistant: Heide srivastava RDCS, RVT Gender Assigned at Additional Staff: : Height: 175.26 cm Admit Date: Weight: 102.97 kg Admission Status: Outpatient BSA / BMI: 2.18 m2 / 33.52 Department Location: [facility] kg/m2 Hall Blood Pressure: 142 /68 mmHg Study Type: TRANSTHORACIC ECHO (TTE) COMPLETE Diagnosis/ICD: Essential (primary) hypertension-I10; Presence of prosthetic heart valve-Z95.2 Indication: #29 Evolut FX TAVR-03/19/2022, Hyperlipidemia, 2/6 Sytolic Murmur, Obesity CPT Codes: Echo Complete w Full Doppler-84715 Study Detail: The following Echo studies were [...] AoV Dimensionless I (more content not included)... [facility] Transthoracic echo (TTE) com pleteon 02-04-2025 [facility] [address] [facility], [address], [place] [address] TRANSTHORACIC ECHOCARDIOGRAM REPORT Patient Name: VIRGILIO JOHNSON Reading Physician: [id number] Josep Perdomo MD Study Date: 02/04/2025 Ordering Provider: [id number] JOSEP PERDOMO MRN/PID: [id number] Fellow: Nurse: Date of /Age: 8 1960 Records Management Assistant: Heide srivastava RDCS, RVT Gender Assigned at F Additional Staff: : Height: 175.26 cm Admit Date: Weight: 102.97 kg Admission Status: Outpatient BSA / BMI: 2.18 m2 / 33.52 Department Location: [facility] kg/m2 Hall Blood Pressure: 142 /68 mmHg Study Type: TRANSTHORACIC ECHO (TTE) COMPLETE Diagnosis/ICD: Essential (primary) hypertension-I10; Presence of prosthetic heart valve-Z95.2 Indication: #29 Evolut FX TAVR-03/19/2022, Hyperlipidemia, 2/6 Sytolic Murmur, Obesity CPT Codes: Echo Complete w Full Doppler-78865 Study Detail: The following Echo studies were [...] included)... Radiology, Radiologi MD mike - 02/04/[address], [address], [place] [address] TRANSTHORACIC ECHOCARDIOGRAM REPORT Patient Name: VIRGILIO JOHNSON Reading Physician: Ceasar Perdomo MD Study Date: 02/04/2025 Ordering Provider: Ceasar PERDOMO MRN/PID: [id number] Fellow: Nurse: Date of /Age: 8 1960 Records Management Assistant: Heide srivastava RDCS, RVT Gender Assigned at F Additional Staff: : Height: 175.26 cm Admit Date: Weight: 102.97 kg Admission Status: Outpatient BSA / BMI: 2.18 m2 / 33.52 Department Location: [facility] kg/m2 Hall Blood Pressure: 142 /68 mmHg Study Type: TRANSTHORACIC ECHO (TTE) COMPLETE Diagnosis/ICD: Essential (primary) hypertension-I10; Presence of prosthetic heart valve-Z95.2 Indication: #29 Evolut FX TAVR-03/19/2022, Hyperlipidemia, 2/6 Sytolic Murmur, Obesity CPT Codes: Echo Complete w Full Doppler-43922 Study Detail: The following Echo studies were [...] LVOT Diameter: 2 (more content not included)... [facility] Radiology Study observation (narrative) [facility] Transthoracic echo (TTE) com pleteOrdered By: Radiologist Radiology on 02-04-2025 [facility] Work Phone: Heart Transthoracicon Aortic Valve Area by Continuity of Peak Velocity 1.37 cm2 [facility] Work Phone: Aortic Valve Area by Continuity of VTI 1.49 cm2 [facility] Work Phone: [phone] AV mn grad 16 mmHg [facility] Work Phone: [phone] AV pk grad 28 mmHg [facility] Work Phone: [phone] AV pk gianfranco 2.67 m/s [facility] Work Phone: [phone] LA vol index A/L 29.0 ml/m2 [facility] Work Phone: [phone] LV A4C EF 75.7 [facility] Work Phone: [phone] LV Biplane EF 71 % [facility] Work Phone: [phone] LV EF 63 % [facility] Work Phone: [phone] LVIDd 5.31 cm [facility] Work Phone: [phone] LVOT diam 2.09 cm [facility] Work Phone: [phone] MV avg E/e' ratio 11.38 [facility] Work Phone: [phone] MV E/A ratio 0.76 [facility] Work Phone: [phone] RV free wall pk S' 15.45 cm/s [facility] Work Phone: [phone] RVSP 22 mmHg [facility] Work Phone: [phone] Tricuspid annular plane systolic excursion 1.5 cm [facility] Work Phone: [address], [address], [place] [address] TRANSTHORACIC ECHOCARDIOGRAM REPORT Patient Name: VIRGILIO Goel Physician: [id number] Josep Perdomo MD Study Date: 02/04/2025 Ordering Provider: [id number] JOSEP CONOR MRN/PID: [id number] Fellow: Nurse: Date of /Age: 8 1960 Records Management Assistant: Heide srivastava RDCS, RVT Gender Assigned at F Additional Staff: : Height: 175.26 cm Admit Date: Weight: 102.97 kg Admission Status: Outpatient BSA / BMI: 2.18 m2 / 33.52 Department Location: [facility] kg/m2 Hall Blood Pressure: 142 /68 mmHg Study Type: TRANSTHORACIC ECHO (TTE) COMPLETE Diagnosis/ICD: Essential (primary) hypertension-I10; Presence of prosthetic heart valve-Z95.2 Indication: #29 Evolut FX TAVR-03/19/2022, Hyperlipidemia, 2/6 Sytolic Murmur, Obesity CPT Codes: Echo Complete w Full Doppler-09680 Study Detail: The following Echo studies were [...] not included)... Josep Ramires MD - 02/04/2025 [facility] [address] [place] [address], [address], [place] [address] TRANSTHORACIC ECHOCARDIOGRAM REPORT Patient Name: VIRGILIO JOHNSON Reading Physician: [id number] Perdomo MD Study Date: 02/04/2025 Ordering Provider: Ceasar PERDOMO MRN/PID: [id number] Fellow: Nurse: Date of /Age: 8 1960 Records Management Assistant: Heide srivastava RDCS, RVT Gender Assigned at F Additional Staff: : Height: 175.26 cm Admit Date: Weight: 102.97 kg Admission Status: Outpatient BSA / BMI: 2.18 m2 / 33.52 Department Location: [facility] kg/m2 Hall Blood Pressure: 142 /68 mmHg Study Type: TRANSTHORACIC ECHO (TTE) COMPLETE Diagnosis/ICD: Essential (primary) hypertension-I10; Presence of prosthetic heart valve-Z95.2 Indication: #29 Evolut FX TAVR-03/19/2022, Hyperlipidemia, 2/6 Sytolic Murmur, Obesity CPT Codes: Echo Complete w Full Doppler-07894 Study Detail: The following Echo studies were [...] 2.09 cm (1 (more content not included)... [facility] Work Phone: [facility] Work Phone: HbA1c (Bld) [Mass fraction]o n 01-31-2025 Interpretation and review of laboratory results Normal [facility] Laboratory - Hematology and Cell countson 01-31-2025 HbA1c (Bld) [Mass fraction] 5.8 % [facility] HbA1c (Bld) [Mass fraction]O rdered By: Flor Velasco on 08-03-2024 Interpretation and review of laboratory results Normal [facility] Laboratory - Hematology and Cell countsOrdered By: Flor Velasco on 08-03-2024 HbA1c (Bld) [Mass fraction] 6.1 % [facility] HbA1c (Bld) [Mass fraction]o n 03-30-2024 Interpretation and review of laboratory results Normal [facility] Laboratory - Chemistry and C hemistry - challengeon 03-30-2024 Albumin DL <= 20 mg/L (U) [Mass/Vol] 300 mg/dL [facility] Comment on above: moderately increased Laboratory - Hematology and Cell countson 03-30-2024 HbA1c (Bld) [Mass fraction] 6.2 % [facility] No Panel Informationon 03-30 Interpretation and review of laboratory results Abnormal [facility] ALL CBC WITH AUTO DIFFon BASOPHILS ABSOLUTE AUTO 0.0 [facility] Basophils/100 WBC (Bld) 0.3 % 0.2 - 2.0 % [facility] Eosinophils/100 WBC (Bld) 3.5 % 0.9 - 7.0 % [facility] Erythrocyte distribution width (RBC) [Ratio] 12.9 % 11.0 - 15.0 % [facility] Hematocrit (Bld) [Volume fraction] 32.8 % Low 36.0 - 48.0 % [facility] Hemoglobin (Bld) [Mass/Vol] 10.8 g/dL Low 12.0 - 16.0 g/dL [facility] IMMATURE GRANULOCYTES ABS AUTO 0.02 [facility] Immature granulocytes/100 WBC (Bld) 0.3 % 0.0 - 0.5 % [facility] Interpretation and review of laboratory results Abnormal [facility] LYMPHOCYTES ABSOLUTE AUTO 1.7 [facility] Lymphocytes/100 WBC (Bld) 28.7 % 20.5 - 60.0 % [facility] MCH (RBC) [Entitic mass] 29.9 pg 26.7 - 34.0 pg [facility] MCHC (RBC) [Mass/Vol] 32.9 g/dL 29.9 - 35.2 g/dL [facility] MCV (RBC) [Entitic vol] 90.9 fL 81.0 - 99.0 fL [facility] MONOCYTES ABSOLUTE AUTO 0.5 [facility] Monocytes/100 WBC (Bld) 7.4 % 1.7 - 12.0 % [facility] NEUTROPHILS ABSOLUTE AUTO 3.6 [facility] Neutrophils/100 WBC (Bld) 59.8 % 43.0 - 75.0 % [facility] Platelet mean volume (Bld) [Entitic vol] 9.5 fL 9.5 - 13.5 fL [facility] TB EO # 0.2 [facility] TB PLT 251 [facility] RBC 3.61 Low [facility] WBC 6.1 [facility] CNOVon 09-02-2023 CNOV Office Visit (LOORRM ) -------- VIRGILIO JOHNSON ([id number]) 1960 F Date Time Provider Department 09/02/23 [...] every Mon (more content not included)... Normal [facility] CNOVon 07-29-2023 CNOV Office Visit (LOORRM ) -------- VIRGILIO JOHNSON ([id number]) 1960 F Date Time Provider Department 07/29/23 [...] last few months. 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 [...] intermittent inflam (more content not included)... Normal [facility] XR KNEE 3V AP/LAT/XAVIER BILon 07-29-2023 XR [...] TISSUES: Unremarkable. IMPRESSION: Stable bilateral knee arthroplasties. Design Agent: TRINITY Transcribe Date/Time: Jul 29 2023 3:07P Dictated by : JAIR JOSHUA MD This examination was interpreted and the report reviewed and electronically signed by: JAIR JOSHUA MD on Jul 29 2023 3:13PM EST [id number] Normal [facility] XR Knee - bilateral 3 Viewso n 07-29-2023 IMPRESSION: Stable bilateral knee arthroplasties. Design Agent: PSCViroXis Transcribe Date/Time: Jul 29 2023 3:07P Dictated [...] SOFT TISSUES: Unremarkable. DIVISION OF RADIOLOGY Provider, [facility] Leyla [facility] - 07/29/2023 * * *Final Report* [...] Unremarkable. IMPRESSION IMPRESSION: Stable bilateral knee arthroplasties. Design Agent: TRINITY Transcribe Date/Time: Jul 29 2023 3:07P Dictated by : JAIR JOSHUA MD This examination was interpreted and the report reviewed and electronically signed by: JAIR JOSHUA MD on Jul 29 2023 3:13PM EST [facility] Radiology Study observation (narrative) [facility] XR Knee - bilateral 3 ViewsO rdered By: [facility] Provider on 07-29-2023 [facility] Office Visit (Cardiology)on 03-17-2023 Follow-up visit Diagnoses/Problems Assessed S/P TAVR (transcatheter aortic valve replacement) (V43.3) (Z95.2) Essential hypertension, benign (401.1) (I10) Orders S/P TAVR (transcatheter aortic valve replacement) Echocardiogram; Status:Hold For - Scheduling; Requested for:[id number]; Chief Complaint VIRGILIO JOHNSON is being seen [...] are negative for complaint. Scores and Scales [place] Cardiomyopathy Ques (more content not included)... Normal [facility] CNOVon 02-28-2023 CNOV Office Visit (LOORRM ) -------- VIRGILIO JOHNSON ([id number]) 1960 F Date Time Provider Department 02/28/23 [...] Order(s):XR KNEE POST OP 3V AP/LAT/MERCHANT BILATERAL [[id number]] Order #: [id number] FUTURE Prescriptions as of 03/06/2023 - clindamycin [...] by VIOLET COMBS II on 03/06/23 Normal [facility] XR KNEE 3V AP/LAT/XAVIER BILon 02-28-2023 XR [...] postoperative appearance bilaterally. No other significant abnormality. Design Agent: PSCB Transcribe Date/Time: Feb 28 2023 12:02P Dictated by : RACHEAL BENITEZ MD This examination was interpreted and the report reviewed and electronically signed by: RACHEAL BENITEZ MD on Feb 28 2023 12:02PM EST [id number] Normal [facility] XR KNEE POST OP 3V AP/LAT/ME RCHANT BILATERALon 02-28-2023 [facility] XR Knee - bilateral 3 Viewso [...] postoperative appearance bilaterally. No other significant abnormality. Design Agent: [facility] H[facility]ITAL[facility]iroXis Transcribe Date/Time: Feb 28 2023 12:02P Dictated by : RACHEAL BENITEZ MD This examination was interpreted and the report reviewed and electronically signed by: RACHEAL BENITEZ MD on Feb 28 2023 12:02PM [facility] DIVISION OF RADIOLOGY Provider, [facility] - 02/28/2023 * * *Final Report* [...] postoperative appearance bilaterally. No other significant abnormality. Design Agent: ZoomyB Transcribe Date/Time: Feb 28 2023 12:02P Dictated by : RACHEAL BENITEZ MD This examination was interpreted and the report reviewed and electronically signed by: RACHEAL BENITEZ MD on Feb 28 2023 12:02PM [facility] Radiology Study observation (narrative) [facility] XR Knee - bilateral 3 ViewsO rdered By: [facility] Provider on 02-28-2023 [facility] Office Visit (Cardiology)on 11-30-2022 Follow-up visit Diagnoses/Problems Assessed Essential hypertension, benign (401.1) (I10) Orders Essential hypertension, benign Start: Chlorthalidone 25 MG Oral Tablet; TAKE 1 TABLET DAILY Basic Metabolic Panel; Status:Active - Retrospective Authorization; Requested for:[id number]; Patient Instructions Please bring all medicines, vitamins, [...] 10/06/2022 3:59:12 PM Vitals Vital Signs Recorded: [id number] 01:11PMRecorded: 19Xic0152 01:08PM Vkjesrkg897, LUE, Zylhqzh537, RUE, Sitting Afhuowgfx13, LUE, Uxksvgp36, RUE, Sitting Heart Rate80, R Radial Height5 ft 8 in Bfxhrb610 lb BMI Uhgznrfnqa46.53 kg/m2 BSA Calculated2.28 Signatures Electronically signed by : Josep Perdomo MD; Nov 30 2022 7:06PM EST (Author) [facility] Bacteria Fld Culton 11-30-19 23 Bacteria identified Cx Nom (Body fld) CULTURE, BODY FLD: No growth GRAM STAIN: No organisms seen Rare Polymorphonuclear leukocytes Rare Mononuclear cells Gram stain from primary specimen Normal [facility] Comment on above: Performed By: #### 6 11-4 ####[facility] LABCLIA [id number] [address] STATES OF [facility] CNOVon 11-29-2022 CNOV Office Visit (LOORRM ) -------- VIRGILIO JOHNSON ([id number]) 1960 F Date Time Provider Department 11/29/22 [...] the next few weeks. Also scheduled for [place] therapy sessions. She states pain is well [...] knee joint Informed Consent Consent Obtained: Written [place] Protocol A moment to CARE was completed. [...] R kn (more content not included)... Normal [facility] SYNOVIAL FL,CRYSTAL ID/STAFF REVon 11-29-2022 CRYSTAL PRELIM, SF PRELIMINARY REPORT N o diagnostic crystals seen. SEE FINAL SF PATH REVIEW Normal [facility] Comment on above: Order Comment: Speci men Type: BODY FLUID SPECIMENOrdering Facility: [facility] Address: [address] [place] [address] [place] [address] Performed By: #### R TSYNF, SFCRID ####[facility] LABORATORYCLIA [id number] [place] [address] [facility] LABCLIA [id number] [place] [address] [place]#### [id number] ####[facility] LABCLIA [id number] [place] [address] [place] CRYSTAL REVIEW Reviewed by Kavya Sultana MD Normal [facility] Comment on above: Order Comment: Speci men Type: BODY FLUID SPECIMENOrdering Facility: [facility] Address: [address] [place] [address] Performed By: #### MAYTE POLO ####[facility] LABORATORYCLIA [id number] [address] LABCLIA [id number] [place] [address] [place]#### [id number] ####[facility] LABCLIA [id number] [place] [address] [place] Crystals LM Nom (Syn fld) None seen Normal None seen [facility] Comment on above: Order Comment: Speci men Type: BODY FLUID SPECIMENOrdering Facility: [facility] Address: [address] [place], [place] [address] Performed By: #### MAYTE POLO ####[facility] LABORATORYCLIA [id number] [place] [address] [facility] LABCLIA [id number] [place] [address] [place]#### [id number] ####[facility] LABCLIA [id number] [place] [address] [place] SYNOVIAL FLUID MANUAL DIFFon 11-29-2022 DIF TTL, SYNOVIAL FLUID 100 cells counted Normal [facility] Comment on above: Order Comment: Speci men Type: BODY FLUID SPECIMENOrdering Facility: [facility] Address: [address] [place] [address] Performed By: #### MAYTE POLO ####[facility] LABORATORYCLIA [id number] [place] [address] [place] [facility] LABCLIA [id number] [facility] [address] [place]#### [id number] ####[facility] LABCLIA [id number] [facility] [address] [place] EOSIN %, SF 3 Normal [facility] Comment on above: Order Comment: Speci men Type: BODY FLUID SPECIMENOrdering Facility: [facility] Address: [address] [place] Performed By: #### MAYTE POLO ####[facility] LABORATORYCLIA [id number] [place] [address] [place] [facility] LABCLIA [id number] [facility] [address] [place]#### [id number] ####[facility] LABCLIA [id number] [facility] [address] [place] LYMPH%, SF 57 Normal [facility] Comment on above: Order Comment: Speci men Type: BODY FLUID SPECIMENOrdering Facility: [facility] Address: [address] [place] [address] Performed By: #### MAYTE POLO ####[facility] LABORATORYCLIA [id number] [place] [address] [place] [facility] LABCLIA [id number] [facility] [address] [address] [place]#### [id number] ####[facility] LABCLIA [id number] [facility] [address] [place] MACRO%, SF 5 Normal [facility] Comment on above: Order Comment: Speci men Type: BODY FLUID SPECIMENOrdering Facility: [facility] Address: [address] [place] [address] Performed By: #### MAYTE POLO ####[facility] LABORATORYCLIA [id number] [place] [address] [place] [facility] LABCLIA [id number] [place] [address] [place]#### [id number] ####[facility] LABCLIA [id number] [place] [address] [place] MONO%, SF 2 Normal [facility] Comment on above: Order Comment: Speci men Type: BODY FLUID SPECIMENOrdering Facility: [facility] Address: [address] [place] [address] Performed By: #### MAYTE POLO ####[facility] LABORATORYCLIA [id number] [place] [address] [place] [facility] LABCLIA [id number] [place] [address] [place]#### [id number] ####[facility] LABCLIA [id number] [place] [address] [place] NEUT% 33 High 0-<25 [facility] Comment on above: Order Comment: Speci men Type: BODY FLUID SPECIMENOrdering Facility: [facility] Address: [address] [place] [address] Performed By: #### MAYTE POLO ####[facility] LABORATORYCLIA [id number] [place] [address] [place] [facility] LABCLIA [id number] [place] [address] [place]#### [id number] ####[facility] LABCLIA [id number] [place] [address] [place] SYNOVIAL FLUID, ROUTINEon Clarity (Unsp spec) Clear Normal Clear [facility] Comment on above: Order Comment: Speci men Type: BODY FLUID SPECIMENOrdering Facility: [facility] Address: [address] [place] [address] Performed By: #### MAYTE POLO ####[facility] LABORATORYIA [id number] [place] [address] [place] [facility] LABCLIA [id number] [place] [address] [place]#### [id number] ####[facility] LABCLIA [id number] [place] [address] [place] Color (Syn fld) Simran Abnormal Yellow [facility] Comment on above: Order Comment: Speci men Type: BODY FLUID SPECIMENOrdering Facility: [facility] Address: [address] [place], [place] [address] Performed By: #### MAYTE POLO ####[facility] LABORATORYCLIA [id number] [place] [address] [place] [facility] LABCLIA [id number] [place] [address] [place]#### [id number] ####[facility] LABCLIA [id number] [place] [address] [place] RBC Manual cnt (Syn fld) [#/Vol] 36331 /uL High <2000 [facility] Comment on above: Order Comment: Speci men Type: BODY FLUID SPECIMENOrdering Facility: [facility] Address: [address] [place] [address] Performed By: #### R DIANNAF, SFCRID ####[facility] LABORATORYCLIA [id number] [place], [place] [address] [place] [address] LABCLIA [id number] [place] [address] [place]#### [id number] ####[facility] LABCLIA [id number] [place] [address] [place] Specimen source Nom (Unsp spec) KNEE RIGHT SYNOVIAL FLUID Normal [facility] Comment on above: Order Comment: Speci men Type: BODY FLUID SPECIMENOrdering Facility: [facility] Address: [address] [place] [address] Performed By: #### MAYTE POLO ####[facility] LABORATORYCLIA [id number] [address] STATES [facility] LABCLIA [id number] [place] [address] [place]#### [id number] ####[facility] LABCLIA [id number] [place] [address] [place] WBC Manual cnt (Syn fld) [#/Vol] 496 /uL High 0-200 [facility] Comment on above: Order Comment: Speci men Type: BODY FLUID SPECIMENOrdering Facility: [facility] Address: [address] [place] [address] Performed By: #### MAYTE POLO ####[facility] LABORATORYCLIA [id number] [address] STATES OF [facility] LABCLIA [id number] [place] [address] [place]#### [id number] ####[facility] LABCLIA [id number] [place] [address] [place] CNOVon 11-03-2022 CNOV Office Visit (LOORRM ) -------- VIRGILIO JOHNSON ([id number]) 1960 F Date Time Provider Department 11/03/22 [...] Order(s):CONSULT TO PHYSICAL THERAPY [9032] Order #: [id number]: 1 Prescriptions as of 11/11/2022 - oxyCODONE [...] AND TWO (more content not included)... Normal [facility] CNOVon 10-15-2022 CNOV Office Visit (LOORRM ) -------- VIRGILIO JOHNSON ([id number]) 1960 F Date Time Provider Department 10/15/22 [...] total knee, 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] Order(s):AQUATIC COMMUNITY EXERCISE [43952IQS] Order #: [id number] Prescriptions as of 10/15/2022 - oxyCODONE IR [...] by VIOLET COMBS II on 10/15/22 Normal [facility] Office Visit (Cardiology)on 10-06-2022 Follow-up visit Diagnoses/Problems [...] Recorded: 06Oct2022 03:59PM Heart Rate80, L Radial Mmhcemmm577, LUE, Sitting Leztrsuac72, LUE, Sitting Height5 ft 8 in Xubduj937 lb BMI Mrmhljrevo46.01 kg/m2 BSA Calculated2.25 Tobacco Useb) No PHQ-2 [...] Screening.on 023 Adult depression screening assessment No [facility] y 250 DO Work Phone: Tobacco use status CPHS b) No [facility] y 250 DO Work Phone: MAGNESIUMon 10-01-2022 Magnesium [Mass/Vol] 1.7 mg/dL Critically low 1.8-2.4 [facility] Comment on above: Performed By: #### M G, PHOS #### [facility] [address] [place] [address] Dr. Luh Brown PHOSPHORUSon 10-01-2022 Phosphate [Mass/Vol] 4.5 mg/dL Normal 2.6-4.7 [facility] Comment on above: Performed By: #### M G, PHOS #### [facility] [address] [place] [address] Dr. Luh Brown VIT B12 AND FOLATEon 023 Cobalamin (Vitamin B12) [Mass/Vol] 316.0 pg/mL Normal 193.0-986. 0 [facility] Comment on above: Performed By: #### B 12FOL #### [facility] [address] [place] [address] Dr. Luh Brown FOLATE 16.70 ng/mL Normal 8.60-58.90 [facility] Comment on above: Performed By: #### B 12FOL #### [facility] [address] [place] [address] Dr. Luh Brown No Panel InformationOrdered By: Spenser Canchola on 09-17-2022 Total Triiodothyronine 1.33 ng/mL 0.87-1.78 [facility] TSH DL <= 0.005 mIU/L QnOrde red By: Spenser Canchola on 09-17-2022 TSH Qn 2.74 m[IU]/L 0.45-5.33 [facility] Thyroxine (T4) [Mass/volume] in Serum or PlasmaOrdered By: Spenser Canchola on 09-17-2022 T4 [Mass/Vol] 7.73 ug/dL 5.39-11.82 [facility] CNOVon 09-07-2022 CNOV Office Visit (LOORRM ) -------- VIRGILIO JOHNSON ([id number]) 1960 F Date Time Provider Department 09/07/22 [...] 2022 4:22 PM Referring Provider: LUCAS LEVY [[id number]] Allergies As of Date: 09/07/2022 Noted Allergy [...] Visit Diagnosis:S (more content not included)... Normal [facility] XR KNEE 3V AP/LAT/MERCHANT R Ton 09-07-2022 [...] arthroplasty without complication. IMPRESSION: Arthroplasty without complication Design Agent: [facility] Transcribe Date/Time: Sep 07 2022 3:30P Dictated by : CHARITY WEST MD This examination was interpreted and the report reviewed and electronically signed by: CHARITY WEST MD on Sep 07 2022 8:49PM EST [id number] Normal [facility] XR KNEE POST OP 3V AP/LAT/ME RCHANT RIGHTon 09-07-2022 [facility] XR Knee AP and Lateral and M erchantson 09-07-2022 IMPRESSION: Arthroplasty without complication Design Agent: [facility] Transcribe Date/Time: Sep 07 2022 3:30P [...] arthroplasty without complication. DIVISION OF RADIOLOGY Provider, [facility] Leyla [facility] - 09/07/2022 * * *Final Report* [...] without complication. IMPRESSION IMPRESSION: Arthroplasty without complication Design Agent: [facility] Transcribe Date/Time: Sep 07 2022 3:30P Dictated by : CHARITY WEST MD This examination was interpreted and the report reviewed and electronically signed by: CHARITY WEST MD on Sep 07 2022 8:49PM EST [facility] Radiology Study observation (narrative) [facility] XR Knee AP and Lateral and M erchantsOrdered By: Ccf Provider on 09-07-2022 [facility] Basic metabolic 2000 panelon 08-20-2022 Anion gap [Moles/Vol] 12 mmol/L Normal 9-18 [facility] Comment on above: Order Comment: Speci men Type: BLOOD SPECIMENOrdering Facility: [facility] Address: [address] [place] [address] Performed By: #### 2 4321-2 ####[facility] LABORATORYIA [id number] [place] [address] [place] Calcium [Mass/Vol] 8.6 mg/dL Normal 8.5-10.2 [facility] Comment on above: Order Comment: Speci men Type: BLOOD SPECIMENOrdering Facility: [facility] Address: [address] [place] [place] [address] Performed By: #### 2 4321-2 ####[facility] [id number] [place] [address] [place] Chloride [Moles/Vol] 106 mmol/L High 97-105 [facility] Comment on above: Order Comment: Speci men Type: BLOOD SPECIMENOrdering Facility: [facility] Address: [address] [place] [address] Performed By: #### 2 4321-2 ####[facility] CENTER[facility] [id number] [place] [address] [place] CO2 [Moles/Vol] 20 mmol/L Low 22-30 [facility] Comment on above: Order Comment: Speci men Type: BLOOD SPECIMENOrdering Facility: [facility] Address: [address] [place] [address] Performed By: #### 2 4321-2 ####[facility] LABORATORYIA [id number] [place] [address] [place] Creatinine [Mass/Vol] 1.14 mg/dL High 0.58-0.96 [facility] Comment on above: Order Comment: Speci men Type: BLOOD SPECIMENOrdering Facility: [facility] Address: [address] [place] [place] [address] Performed By: #### 2 4321-2 ####[facility] LABORATORYIA [id number] [place] [address] [place] ESTIMATED GLOMERULAR FILTRATION RATE 55 mL/min/1.73m??? Low >=60 [facility] Comment on above: Order Comment: Symone fraire Type: BLOOD SPECIMENOrdering Facility: [facility] Address: [address] [place] [address] Result Comment: Jt mated Glomerular Filtration Rate [...] actual GFR. Performed By: #### 2 4321-2 ####[facility] LABORATORYCLIA [id number] [place] [address] [place] Glucose [Mass/Vol] 127 mg/dL High 74-99 [facility] Comment on above: Order Comment: Symone fraire Type: BLOOD SPECIMENOrdering Facility: [facility] Address: [address] [place] [address] Result Comment: The [place] Diabetes Association (ADA) provides guidance for cutoff [...] Standards of Medical Care in Diabetes 2016, [place] [employer]. Diabetes Care. 2016.39(Suppl 1). Performed By: #### 2 4321-2 ####[facility] LABORATORYCLIA [id number] [place] [address] [place] Potassium [Moles/Vol] 4.9 mmol/L Normal 3.7-5.1 [facility] Comment on above: Order Comment: Symone men Type: BLOOD SPECIMENOrdering Facility: [facility] Address: [address] [address] Performed By: #### 2 4321-2 ####[facility] [id number] [address] Sodium [Moles/Vol] 138 mmol/L Normal 136-144 [facility] ospital Comment on above: Order Comment: Speci men Type: BLOOD SPECIMENOrdering Facility: [facility] Address: [address] [address] Performed By: #### 2 4321-2 ####[facility]ENTER[facility] [id number] [address] [place] Urea nitrogen [Mass/Vol] 27 mg/dL High 7- [facility] Comment on above: Order Comment: Speci men Type: BLOOD SPECIMENOrdering Facility: [facility] Address: [address] [address] Performed By: #### 2 4321-2 ####[facility] CENTERIA [id number] [address] [place] CBC panel Auto (Bld)on 08-20 Erythrocyte distribution width (RBC) [Ratio] 13.8 % Normal 11.5-15.0 [facility] Comment on above: Order Comment: Speci men Type: BLOOD SPECIMENOrdering Facility: [facility] Address: [address] [address] Performed By: #### 5 8410-2 ####[facility] [id number] [address] OF [facility] Hematocrit (Bld) [Volume fraction] 26.3 % Low 36.0-46.0 [facility] Comment on above: Order Comment: Speci men Type: BLOOD SPECIMENOrdering Facility: [facility] Address: [address] [address] Performed By: #### 5 8410-2 ####[facility] LABORATORYIA [id number] [address] OF [facility] Hemoglobin (Bld) [Mass/Vol] 8.8 g/dL Low 11.5-15.5 [facility] Comment on above: Order Comment: Speci men Type: BLOOD SPECIMENOrdering Facility: [facility] Address: [address] [address] Performed By: #### 5 8410-2 ####[facility] LABORATORYIA [id number] [address] [place] MCH (RBC) [Entitic mass] 29.2 pg Normal 26.0-34.0 [facility] Comment on above: Order Comment: Speci men Type: BLOOD SPECIMENOrdering Facility: [facility] Address: [address] [address] Performed By: #### 5 8410-2 ####[facility]ENTERIA [id number] [address] [place] MCHC (RBC) [Mass/Vol] 33.5 g/dL Normal 30.5-36.0 [facility] Comment on above: Order Comment: Speci men Type: BLOOD SPECIMENOrdering Facility: [facility] Address: [address] [address] Performed By: #### 5 8410-2 ####[facility] LABORATORYIA [id number] [address] [place] MCV (RBC) [Entitic vol] 87.4 fL Normal 80.0-100.0 [facility] Comment on above: Order Comment: Speci men Type: BLOOD SPECIMENOrdering Facility: [facility] Address: [address] [address] Performed By: #### 5 8410-2 ####[facility] LABORATORYIA [id number] [address] OF [facility] Nucleated RBC (Bld) [#/Vol] 10*3/uL Normal <0.01 [facility] Comment on above: Order Comment: Speci men Type: BLOOD SPECIMENOrdering Facility: [facility] Address: [address] [place] [address] Performed By: #### 5 8410-2 ####[facility] LABORATORYIA [id number] [place] [address] [place] Platelet mean volume (Bld) [Entitic vol] 9.5 fL Normal 9.0-12.7 [facility] Comment on above: Order Comment: Speci men Type: BLOOD SPECIMENOrdering Facility: [facility] Address: [address] Performed By: #### 5 8410-2 ####[facility] [id number] [place] [address] [place] Platelets (Bld) [#/Vol] 247 10*3/uL Normal 150-400 [facility] Comment on above: Order Comment: Speci men Type: BLOOD SPECIMENOrdering Facility: [facility] Address: [address] Performed By: #### 5 8410-2 ####[facility]ENTERIA [id number] [place] [address] [place] RBC (Bld) [#/Vol] 3.01 10*6/uL Low 3.90-5.20 [facility] Comment on above: Order Comment: Speci men Type: BLOOD SPECIMENOrdering Facility: [facility] Address: [address] Performed By: #### 5 8410-2 ####[facility] [id number] [place] [address] [place] WBC (Bld) [#/Vol] 10.89 10*3/uL Normal 3.70-11.00 [facility] Comment on above: Order Comment: Speci men Type: BLOOD SPECIMENOrdering Facility: [facility] Address: [address] Performed By: #### 5 8410-2 ####[facility] LABORATORYIA [id number] [place] [address] [facility] CNDSon 08-20-2022 CNDS HNO ID: [id number] Author: Jennifer Herring PA-C Service: Orthopaedic Surgery Author Type: Physician Photo Stylist Type: Discharge Summary Filed: 08/20/2022 1:21 PM [...] total knee arthroplasty, initial encounter ([facility]) [T84.018A, Z96.659] Operations During Hospitalization: Procedure(s) [...] Dept Phone 09/10/2022 10:30 AM LUCAS LEVY [phone] 09/29/2022 2:00 PM OLIVIA (more content not included)... Normal [facility] CONSULT PROGon 08-20-2022 CONSULT PROG HNO ID: [id number] Author: Lashay Burnett APRN.BE[employer] SERVICE CAPTAIN Service: Hospital Medicine Author Type: Nurse Practitioner Type: Consult Progress Note Filed: 08/20/2022 1:04 PM Note Text: DEPARTMENT OF HOSPITAL MEDICINE CONSULT PROGRESS NOTE SERVICE DATE: 08/20/2022 SERVICE TIME: 1:03 PM Primary Care Physician: Oswaldo Grewal MD NIGHT AND WEEKEND COVERAGE: INKOM COVERAGE: Days: 0840-0941, please contact via PLUQsaOrchestrate Nights: - floor: please page Hospitalist night cover [phone] - 4th floor: please page Hospitalist night cover [phone] - 5th floor: please page Hospitalist night cover [phone] Subjective INTERVAL HPI: patient awake in chair [...] review of (more content not included)... 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 Normal [facility] THERAPY NT HNO ID: [id number] Author: Luz Johnson PT Service: Physical Therapy Author Type: Physical Therapist Type: Therapy (PT/OT/Speech/Resp) Filed: 08/20/2022 11:24 AM Note Text: Physical Therapy Evaluation SERVICE DATE: 08/20/2022 SERVICE TIME: 955 to 1052 ROOM: [place] [address] Recommended Discharge Disposition: Outpatient Physical Therapy Recommended [...] Difficulty walking-musculoskeletal Interventions Provided: Evaluation, Therapeutic Exercise (12971), Gait Training (22958) $ Evaluation-Low (04950) Billed Units: 1 unit Therapeutic Exercise (40669) Treatment Minutes: 15 $ Therapeutic Exercise (79761) Billed Units: 1 unit Review of written HEP for TKA (more content not included)... [facility] ANES POSTPROC EVALon 023 ANES POSTPROC EVAL HNO ID: [id number] Author: Guerline Botello MD Service: Anesthesiology Author [...] August 19, 2022 TIME: 2:48 PM CSN: [id number] [facility] ANES PRE-OPon 02-02-2023 ANES PRE-OP HNO ID: [id number] Author: Guerline Botello MD Service: Anesthesiology Author [...] 08/05/2022 Neut% 59.4 12/09/2021 Lymph% 29.7 12/09/2021 Glenn% 8.1 12/09/2021 Eosin% 2.8 01/08/2020 Baso% 0.3 12/09/2021 Abs Neut (ANC) 4.01 12/09/2021 Abs Glenn 0.55 12/09/2021 Abs Eosin 0.15 12/09/2021 Abs [...] August 19, 2022 TIME: 8:52 AM CSN: [id number] [facility] CONSULTon 08-19-2022 CONSULT HNO ID: [id number] Author: Arlin Kwok APRN.[employer] SERVICE CAPTAIN Service: Hospital Medicine Author Type: Nurse Practitioner Type: Consults Filed: 08/19/2022 8:51 PM Note Text: DEPARTMENT OF HOSPITAL MEDICINE INITIAL CONSULT SERVICE DATE: 08/19/2022 SERVICE TIME: 8:38 PM Primary Care Physician: Oswaldo Grewal MD NIGHT AND WEEKEND COVERAGE: INKOM COVERAGE: Days: , please contact via [employer] Nights: - floor: please page Hospitalist night cover [phone] - 4th floor: please page Hospitalist night cover [phone] - 5th floor: please page Hospitalist night cover [phone] REASON FOR CONSULT: Medical management REQUESTING PHYSICIAN: [...] [START ON (more content not included)... Normal [facility] NURSING PROGon 08-19-2022 NURSING PROG HNO ID: [id number] Author: Chavez Cartagena RN Service: ? Author Type: Registered Nurse Type: Nursing Progress Note Filed: 08/19/2022 2:28 PM Note Text: Continues rocking in bed. Unable to obtain v/s d/t movement. Continues to deny c/o pain. Continues repeating my leg my leg. I need to move it. It won't stop moving . [facility] NURSING PROG HNO ID: [id number] Author: Chavez Cartagena RN Service: ? Author [...] ativan 2mg at 1406 with no effect. [facility] OPERATIVE NOon 08-19-2022 OPERATIVE NO HNO ID: [id number] Author: Violet Combs MD Service: Orthopaedic Surgery Author Type: Physician Type: Operative Report Filed: 08/19/2022 1:26 PM Note Text: [facility] OPERATIVE REPORT PATIENT NAME: Virgilio Johnson AGE: [age] year old LOG ID: [id number] Surgery Date: 08/19/2022 SURGEON: Violet Combs MD CREW BOSS: Lucas Levy PA-C, SA, her assistance consisted [...] / narrow Loretta / Triathalon Tibia 5 Loretta Patella 33 mm [place] Polyethylene 11mm TS [place] OPERATIVE FINDINGS: There was complete loss of [...] lateral meniscus. We then put in our Pixelatedon ligament testing gauge, which showed that the extension gap was in neutral valgus-varus position. We flexed the knee to 90 degrees and inserted the tensionmeter. We measured the femur prosthetic size as a 5 loretta. We marked our 2 drill holes for the chamfer cuts. We then put a size [address] (more content not included)... Normal [facility] SARS-CoV-2 RNA Resp Ql ISIDORO+p robeon 08-19-2022 SARS-CoV-2 (COVID-19) RNA ISIDORO+probe Ql (Resp) COVID 19 RESULT: Not detected The method used is RT-PCR or an equivalent NAAT method. Reference Range(the expected result in uninfected individuals): Not detected Normal [facility] Comment on above: Performed By: #### 9 [id number] ####[facility] LABORATORYCLIA [id number] [facility].[address] SURGICAL PATHOLOGYon 023 CASE REPORT Normal [facility] Comment on above: Order Comment: Speci men Type: DEVICE SPECIMENOrdering Facility: [facility] Address: [facility] [place] [address] Result Comment: Surg [facility] Pathology Report Case: [id number] Authorizing Provider: Violet Combs MD Collected: 08/19/2022 01:42 PM Ordering Location: [facility] Surgery Received: 08/19/2022 02:18 PM Pathologist: Abhishek Bey MD, PhD Specimen: HARDWARE, right knee hardware for gross Performed By: #### S ####[facility] LABCLIA [id number] [address] CLINICAL HISTORY [facility] Comment on above: Order Comment: Speci men Type: DEVICE SPECIMENOrdering Facility: [facility] Address: [address] [place] [address] Result Comment: Pre- op diagnosis: S/P right unicompartmental knee replacement [Z96.651] Primary osteoarthritis of right knee [M17.11] Performed By: #### S ####[facility] LABCLIA [id number] [address] FINAL DIAGNOSIS [facility] Comment on above: Order Comment: Speci men Type: DEVICE SPECIMENOrdering Facility: [facility] Address: [address] [place] [address] Result Comment: A. R ight knee, orthopedic hardware, removal: - Surgical hardware, for gross examination only. VIDHYA/FROYLAN 08/20/22 1:33 PM Performed By: #### S ####[facility] LABCLIA [id number] [address] FINAL PERFORMING LAB Normal [facility] Comment on above: Order Comment: Speci men Type: DEVICE SPECIMENOrdering Facility: [facility] Address: [address] [place] [address] Result Comment: Diag nostic interpretation performed at [facility], [address] [address] CLIA# [id number] Customer Advisor: Floyd Barbour M.D. Performed By: #### S ####[facility] LABCLIA [id number] [address] GROSS DESCRIPTION A. HARDWARE [facility] Comment on above: Order Comment: Speci men Type: DEVICE SPECIMENOrdering Facility: [facility] Address: [address] [place] [address] Result Comment: Rece ived fresh, labeled right [...] 2022 1:32 PM Gross examination performed at [facility], [address] [place] [address] Performed By: #### S ####[facility] LABCLIA [id number] [facility] [address] [id number] [facility] THERAPY NTon 08-19-2022 THERAPY NT HNO ID: [id number] Author: Luz Johnson PT Service: Physical Therapy Author Type: Physical Therapist Type: Therapy (PT/OT/Speech/Resp) Filed: 08/19/2022 5:22 PM Note Text: PHYSICAL THERAPY MISSED VISIT SERVICE DATE: 08/19/2022 SERVICE TIME: 1627- 1635 ROOM: [place] [address] Patient not seen due to Sleeping -pt too drowsy to participate. Briefly wakes up to stimulation, but falls back to sleep/snoring loudly. RN aware/notified. Will re-attempt in AM when pt able to actively participate in therapy session. SIGNATURE: Luz Johnson PT PATIENT NAME: Virgilio Johnson DATE: August 19, 2022 TIME: 5:20 PM [facility] XR KNEE 2V AP/LAT RTon 08-19 [...] appearance and alignment of total knee arthroplasty Design Agent: [facility] Transcribe Date/Time: Aug 20 2022 9:52A Dictated by : QI LEMA MD This examination was interpreted and the report reviewed and electronically signed by: QI LEMA MD on Aug 20 2022 9:52AM EST [id number] Normal [facility] Basic metabolic 2000 panelon 08-05-2022 Anion gap [Moles/Vol] 10 mmol/L 9 - 18 mmol/L [facility] Calcium [Mass/Vol] 9.6 mg/dL 8.5 - 10. 2 mg/dL [facility] Chloride [Moles/Vol] 106 mmol/L High 97 - 10 5 mmol/L [facility] CO2 [Moles/Vol] 25 mmol/L 22 - 30 mmol/L [facility] Creatinine [Mass/Vol] 0.89 mg/dL 0.58 - 0.96 mg/dL [facility] Estimated Glomerular Filtration Rate 74 mL/min/1.73m >=60 mL/min/1.7 3m [facility] Glucose [Mass/Vol] 106 mg/dL High 74 - 99 mg/dL [facility] Potassium [Moles/Vol] 4.2 mmol/L 3.7 - 5.1 mmol/L [facility] Sodium [Moles/Vol] 141 mmol/L 136 - 144 mmol/L [facility] Urea nitrogen [Mass/Vol] 20 mg/dL 7 - 21 mg/dL [facility] CBC panel Auto (Bld)on 08-05 Erythrocyte distribution width (RBC) [Ratio] 13.6 % 11.5 - 15.0 % [facility] Hematocrit (Bld) [Volume fraction] 35.2 % Low 36.0 - 46.0 % [facility] Hemoglobin (Bld) [Mass/Vol] 11.6 g/dL 11.5 - 15.5 g/dL [facility] MCH (RBC) [Entitic mass] 28.9 pg 26.0 - 34.0 pg [facility] MCHC (RBC) [Mass/Vol] 33.0 g/dL 30.5 - 36.0 g/dL [facility] MCV (RBC) [Entitic vol] 87.6 fL 80.0 - 100.0 fL [facility] Nucleated RBC (Bld) [#/Vol] <0.01 k/uL [facility] Platelet mean volume (Bld) [Entitic vol] 10.2 fL 9.0 - 12.7 fL [facility] Platelets (Bld) [#/Vol] 265 10*3/uL 150 - 400 k/uL [facility] RBC (Bld) [#/Vol] 4.02 10*6/uL 3.90 - 5.20 m/uL [facility] WBC (Bld) [#/Vol] 5.93 10*3/uL 3.70 - 11.00 k/uL [facility] FERRITIN BLDon 08-05-2022 Ferritin [Mass/Vol] 194.0 ng/mL 14.7 - 205.1 ng/mL [facility] Iron and Iron binding capaci ty panelon 08-05-2022 Iron [Mass/Vol] 57 ug/dL 41 - 186 ug/dL [facility] Iron binding capacity [Mass/Vol] 298 ug/dL 232 - 386 ug/dL [facility] Iron/TIBC [Molar ratio] 19.1 % 15.0 - 57.0 % [facility] STAPH AUREUS PCRon 3 S. aureus and MRSA panel ISIDORO+probe (Nose) Positive Abnormal Negative [facility] S. aureus and MRSA panel ISIDORO+probe (Nose) Negative Negative [facility] Creatinine and Glomerular fi ltration rate.predicted panel (S/P/Bld)Ordered By: Noemi Daniels on 06-28-2022 Creatinine [Mass/Vol] 1.09 mg/dL 0.44-1.03 [facility] Estimated glomerular filtrat ion rate (GFR) non- AmericanOrdered By: Noemi Daniels on 06-28-2022 GFR/1.73 sq M.predicted among non-blacks MDRD (S/P/Bld) [Vol rate/Area] 51 mL/Min [facility] No Panel InformationOrdered By: Noemi Daniels on 06-28-2022 Estimated GFR () > 60 mL/Min [facility] Comment on above: GFR estimated refere nce range: According to KDOQI guidelines, <60 ml/min/1.73m2 is sufficient to diagnose a patient with chronic kidney disease. Pharmacy Creatinine Clearance (Chem N/A [facility] Serum or plasma anion gap de terminationOrdered By: Noemi Daniels on 06-28-2022 Anion gap [Moles/Vol] 19.3 mmol/L 6.0-15.0 [facility] Serum or plasma calcium jeane urement (mass/volume)Ordered By: Noemi Daniels on 06-28-2022 Calcium [Mass/Vol] 9.2 mg/dL 8.2-10.2 [facility] Serum or plasma chloride thomas surement (moles/volume)Ordered By: Noemi Daniels on 06-28-2022 Chloride [Moles/Vol] 104 mmol/L 95-114 [facility] Serum or plasma glucose jeane urement (mass/volume)Ordered By: Noemi Daniels on 06-28-2022 Glucose [Mass/Vol] 154 mg/dL 70-100 [facility] Comment on above: ADA recommended refe rence rangeRandom Glucose Reference Range is dependent on time and content of last meal. Glucose of more than 200 mg/dL in a nonstressed, ambulatory subject supports the diagnosis of Diabetes Mellitus. Serum or plasma potassium me asurement (moles/volume)Ordered By: Noemi Daniels on 06-28-2022 Potassium [Moles/Vol] 4.4 mmol/L 3.5-5.1 [facility] Serum or plasma sodium measu rement (moles/volume)Ordered By: Noemi Daniels on 06-28-2022 Sodium [Moles/Vol] 139 mmol/L 136-146 [facility] Serum or plasma total carbon dioxide measurement (moles/volume)Ordered By: Noemi Daniels on 06-28-2022 CO2 [Moles/Vol] 20.1 mmol/L 22.0-30.0 [facility] Serum or plasma urea nitroge n measurement (mass/volume)Ordered By: Noemi Daniels on 06-28-2022 Urea nitrogen [Mass/Vol] 21 mg/dL 9-23 [facility] TSH DL <= 0.005 mIU/L QnOrde red By: Spenser Canchola on 06-28-2022 TSH Qn 12.21 m[IU]/L 0.45-5.33 [facility] Glucose Glucometer (BldC) [M ass/Vol]Ordered By: Spenser Canchola on 06-02-2022 Glucose [Mass/Vol] 145 mg/dL [facility] Comment on above: Random Glucose Refer ence Range is dependent on time and content of last meal. Glucose of more than 200 mg/dL in a nonstressed, ambulatory subject supports the diagnosis of Diabetes Mellitus. COVID-19 SOFIAOrdered By: Guilherme Canchola on 05-31-2022 SARS-CoV+SARS-CoV-2 (COVID-19) Ag IA.rapid Ql (Resp) Negative Negative [facility] Comment on above: This is a duplicate Kimberlee SARS Antigen (WILBERT) result to be used for statistical tracking purpose only. No Panel InformationOrdered By: Spenser Canchola on 05-31-2022 SARS Antigen (LFIA) [facility] XR KNEE GENERAL 4V AP BOTH/P A BOTH/LAT/MERC BILATERALon 05-31-2022 [facility] XR Knee - bilateral 4 Viewso n 05-31-2022 IMPRESSION: POSTOPERATIVE AND DEGENERATIVE CHANGES DESCRIBED IN THE RIGHT KNEE. EXPECTED POSTSURGICAL APPEARANCE OF THE LEFT KNEE. Design Agent: PSCB Transcribe Date/Time: May 31 2022 12:13P Dictated by : RACHEAL BENITEZ MD This examination was interpreted and the report reviewed and electronically signed by: RACHEAL BENITEZ MD on May 31 2022 12:14PM [facility] DIVISION OF RADIOLOGY * * *Final Report* [...] other significant abnormality. DIVISION OF RADIOLOGY Provider, [facility] Leyla [facility] - 05/31/2022 * * *Final Report* * [...] EXPECTED POSTSURGICAL APPEARANCE OF THE LEFT KNEE. Design Agent: TRINITY Transcribe Date/Time: May 31 2022 12:13P Dictated by : RACHEAL BENITEZ MD This examination was interpreted and the report reviewed and electronically signed by: RACHEAL BENITEZ MD on May 31 2022 12:14PM EST [facility] Radiology Study observation (narrative) [facility] XR Knee - bilateral 4 ViewsO rdered By: [facility] Provider on 05-31-2022 [facility] Basophils Auto (Bld) [#/Vol] Ordered By: Spenser Canchola on 05-19-2022 Basophils (Bld) [#/Vol] 0.0 10*3/uL 0.0-0.2 [facility] Basophils/100 WBC Auto (Bld) Ordered By: Spenser Canchola on 05-19-2022 Basophils/100 WBC (Bld) 0.4 % . [facility] Creatinine and Glomerular fi ltration rate.predicted panel (S/P/Bld)Ordered By: Spenser Canchola on 05-19-2022 Creatinine [Mass/Vol] 0.99 mg/dL 0.44-1.03 [facility] Eosinophils Auto (Bld) [#/Vo l]Ordered By: Spenser Canchola on 05-19-2022 Eosinophils (Bld) [#/Vol] 0.2 10*3/uL 0.0-0.45 [facility] Eosinophils/100 WBC Auto (Bl d)Ordered By: Spenser Canchola on 05-19-2022 Eosinophils/100 WBC (Bld) 2.2 % . [facility] Erythrocyte distribution wid th Auto (RBC) [Ratio]Ordered By: Spenser Canchola on 05-19-2022 Erythrocyte distribution width (RBC) [Ratio] 13.5 % 11.9-15.3 [facility] Estimated glomerular filtrat ion rate (GFR) non- AmericanOrdered By: Spenser Canchola on 05-19-2022 GFR/1.73 sq M.predicted among non-blacks MDRD (S/P/Bld) [Vol rate/Area] 57 mL/Min [facility] Hematocrit Auto (Bld) [Volum e fraction]Ordered By: Spenser Canchola on 05-19-2022 Hematocrit (Bld) [Volume fraction] 36.1 % 34.0-46.4 [facility] Hemoglobin [Mass/volume] in BloodOrdered By: Spenser Canchola on 05-19-2022 Hemoglobin (Bld) [Mass/Vol] 12.0 g/dL 11.8-15.4 [facility] Laboratory - Hematology and Cell countsOrdered By: Spenser Canchola on 05-19-2022 Nucleated RBC/100 WBC (Bld) [Ratio] 0.0 % 0-0.5 [facility] Leukocytes [#/volume] in Blo od by Automated countOrdered By: Spenser Canchola on 05-19-2022 WBC (Bld) [#/Vol] 7.8 10*3/uL 4.5-11.0 [facility] Lymphocytes Auto (Bld) [#/Vo l]Ordered By: Spenser Canchola on 05-19-2022 Lymphocytes (Bld) [#/Vol] 1.9 10*3/uL 1.00-4.8 [facility] Lymphocytes/100 WBC Auto (Bl d)Ordered By: Spenser Canchola on 05-19-2022 Lymphocytes/100 WBC (Bld) 24.8 % . [facility] MCH Auto (RBC) [Entitic mass ]Ordered By: Spenser Canchola on 05-19-2022 MCH (RBC) [Entitic mass] 29.0 pg 24.7-34.3 [facility] MCHC Auto (RBC) [Mass/Vol]Or dered By: Spenser Canchola on 05-19-2022 MCHC (RBC) [Mass/Vol] 33.1 g/dL 32.0-35.0 [facility] MCV Auto (RBC) [Entitic vol] Ordered By: Spenser Canchola on 05-19-2022 MCV (RBC) [Entitic vol] 87.7 fL 80-100 [facility] Monocytes Auto (Bld) [#/Vol] Ordered By: Spenser Canchola on 05-19-2022 Monocytes (Bld) [#/Vol] 0.6 10*3/uL 0.0-0.8 [facility] Monocytes/100 WBC Auto (Bld) Ordered By: Spenser Canchola on 05-19-2022 Monocytes/100 WBC (Bld) 7.3 % . [facility] Neutrophils Auto (Bld) [#/Vo l]Ordered By: Spenser Canchola on 05-19-2022 Neutrophils (Bld) [#/Vol] 5.1 10*3/uL 1.8-7.7 [facility] Neutrophils/100 WBC Auto (Bl d)Ordered By: Spenser Canchola on 05-19-2022 Neutrophils/100 WBC (Bld) 65.3 % . [facility] No Panel InformationOrdered By: Spenser Canchola on 05-19-2022 25-Hydroxy Vitamin D Total 19.7 ng/mL 30-100 [facility] Comment on above: VITAMIN D STATUS 25( [place])VITAMIN D RANGE (ng/mL) Deficient <20 Insufficient 20 to <30Sufficient 30 to 100Reference: Babita MF,Audelia NC, John NÚÑEZ, et al. Evaluation,treatment, and prevention of vitamin D deficiency; an Endocrine Society clinical practice guideline. JCEM. 2010; 96(7):1911-30. Estimated GFR () > 60 mL/Min [facility] Comment on above: GFR estimated refere nce range: According to KDOQI guidelines, <60 ml/min/1.73m2 is sufficient to diagnose a patient with chronic kidney disease. Pharmacy Creatinine Clearance (Chem N/A [facility] Platelet mean volume Auto (B ld) [Entitic vol]Ordered By: Spenser Canchola on 05-19-2022 Platelet mean volume (Bld) [Entitic vol] 7.9 fL 6.3-10.7 [facility] Platelets Auto (Bld) [#/Vol] Ordered By: Spenser Canchola on 05-19-2022 Platelets (Bld) [#/Vol] 316 10*3/uL 150-450 [facility] RBC Auto (Bld) [#/Vol]Ordere d By: Spenser Canchola on 05-19-2022 RBC (Bld) [#/Vol] 4.12 10*6/uL 3.60-5.00 [facility] Serum or plasma anion gap de terminationOrdered By: Spenser Canchola on 05-19-2022 Anion gap [Moles/Vol] 15.4 mmol/L 6.0-15.0 [facility] Serum or plasma calcium jeane urement (mass/volume)Ordered By: Spenser Canchola on 05-19-2022 Calcium [Mass/Vol] 9.5 mg/dL 8.2-10.2 [facility] Serum or plasma chloride thomas surement (moles/volume)Ordered By: Spenser Canchola on 05-19-2022 Chloride [Moles/Vol] 104 mmol/L 95-114 [facility] Serum or plasma glucose jeane urement (mass/volume)Ordered By: Spenser Canchola on 05-19-2022 Glucose [Mass/Vol] 90 mg/dL 70-100 [facility] Comment on above: ADA recommended refe rence rangeRandom Glucose Reference Range is dependent on time and content of last meal. Glucose of more than 200 mg/dL in a nonstressed, ambulatory subject supports the diagnosis of Diabetes Mellitus. Serum or plasma intact parat hyroid hormone measurement (mass/volume)Ordered By: Spenser Canchola on 05-19-2022 Parathyrin.intact [Mass/Vol] 51.6 pg/mL [facility] Serum or plasma potassium me asurement (moles/volume)Ordered By: Spenser Canchola on 05-19-2022 Potassium [Moles/Vol] 4.4 mmol/L 3.5-5.1 [facility] Serum or plasma sodium measu rement (moles/volume)Ordered By: Spenser Canchola on 05-19-2022 Sodium [Moles/Vol] 138 mmol/L 136-146 [facility] Serum or plasma total carbon dioxide measurement (moles/volume)Ordered By: Spenser Canchola on 05-19-2022 CO2 [Moles/Vol] 23.0 mmol/L 22.0-30.0 [facility] Serum or plasma urea nitroge n measurement (mass/volume)Ordered By: Spenser Canchola on 05-19-2022 Urea nitrogen [Mass/Vol] 18 mg/dL 04-09 [facility] TSH DL <= 0.005 mIU/L QnOrde red By: Spenser Canchola on 05-19-2022 TSH Qn 0.74 m[IU]/L 0.45-5.33 [facility] Office Visit (Cardiology)on 05-13-2022 Follow-up visit Diagnoses/Problems [...] are negative for complaint. Scores and Scales [facility] (more content not included)... [facility] Office Visit (Cardiology)on 04-01-2022 Follow-up visit Diagnoses/Problems [...] Weight Tips; Status:Complete - Retrospective Authorization; Done: [id number] Essential hypertension, benign Start: Valsartan 160 MG Oral Tablet (Diovan); TAKE 1 TABLET DAILY SocHx: Never a smoker Tobacco Use Screening; Status:Complete; Done: [id number] Unlinked Stop: Losartan Potassium-HCTZ 100-25 MG Oral [...] in stools. (more content not included)... Normal [facility] Tobacco Screening.on 022 Tobacco use status [facility] b) No -[facility] [address] DO Work Phone: CBC AUTO DIFFon 03-25-2022 BASO # 0.0 103/ul Normal 0.0-0.1 [facility] Comment on above: Performed By: #### C BC #### [facility] [address] [address] [address] Luh Brown Basophils/100 WBC (Bld) 0.4 % Normal 0.2-2.0 [facility] Comment on above: Performed By: #### C BC #### [facility] [address] [address] [address] Luh Brown EO # 0.2 103/ul Normal 0.0-0.7 [facility] Comment on above: Performed By: #### C BC #### [facility] [address] [address] [address] Luh Brown Eosinophils/100 WBC (Bld) 2.5 % Normal 0.9-7.0 [facility] Comment on above: Performed By: #### C BC #### [facility] [address] [address] [address] Luh Brown Erythrocyte distribution width (RBC) [Ratio] 13.0 % Normal 11.0-15.0 [facility] Comment on above: Performed By: #### C BC #### [facility] [address] [place] [address] Dr. Luh Brown Hematocrit (Bld) [Volume fraction] 32.7 % Critically low 36.0-48.0 [facility] Comment on above: Performed By: #### C BC #### [facility] [address] [place] [address] Dr. Luh Brown Hemoglobin (Bld) [Mass/Vol] 10.8 g/dL Critically low 12.0-16.0 [facility] Comment on above: Performed By: #### C BC #### [facility] [address] [place] [address] Dr. Luh Brown IG # 0.05 10e3/ul Critically high 0.00-0.03 [facility] Comment on above: Performed By: #### C BC #### [facility] [address] [address] [address] Luh Brown IG % 0.6 % Critically high 0.0-0.5 [facility] Comment on above: Performed By: #### C BC #### [facility] [address] [address] [address] Luh Brown LYMPH # 2.0 103/ul Normal 1.2-3.8 [facility] Comment on above: Performed By: #### C BC #### [facility] [address] [place] [address] Dr. Luh Brown Lymphocytes/100 WBC (Bld) 24.0 % Normal 20.5-60.0 [facility] Comment on above: Performed By: #### C BC #### [facility] [address] [place] [address] Dr. Luh Brown MANUAL DIFF REQ NO Normal [facility] Comment on above: Performed By: #### C BC #### [facility] [address] [place] [address] Dr. Luh Brown MCH (RBC) [Entitic mass] 29.3 pg Normal 26.7-34.0 [facility] Comment on above: Performed By: #### C BC #### [facility] [address] [place] [address] Dr. Luh Brown MCHC (RBC) [Mass/Vol] 33.0 g/dL Normal 29.9-35.2 [facility] Comment on above: Performed By: #### C BC #### [facility] [address] [place] [address] Dr. Luh Brown MCV (RBC) [Entitic vol] 88.9 fL Normal 81.0-99.0 [facility] Comment on above: Performed By: #### C BC #### [facility] [address] [place] [address] Dr. Luh Brown MONO # 0.6 103/ul Normal 0.3-0.8 [facility] Comment on above: Performed By: #### C BC #### [facility] [address] [place] [address] Dr. Luh Brown Monocytes/100 WBC (Bld) 7.9 % Normal 1.7-12.0 [facility] Comment on above: Performed By: #### C BC #### [facility] [address] [place] [address] Dr. Luh Brown NEUT # 5.3 103/ul Normal 1.4-6.5 [facility] Comment on above: Performed By: #### C BC #### [facility] [address] [place] [address] Dr. Luh Brown Neutrophils/100 WBC (Bld) 64.6 % Normal 43.0-75.0 [facility] Comment on above: Performed By: #### C BC #### [facility] [address] [place] [address] Dr. Luh Brown Platelet mean volume (Bld) [Entitic vol] 9.2 fL Critically low 9.5-13.5 [facility] Comment on above: Performed By: #### C BC #### [facility] [address] [place] [address] Dr. Luh Brown PLT 291 103/ul Normal 150-450 [facility] Comment on above: Performed By: #### C BC #### [facility] [address] [place] [address] Dr. Luh Brown RBC 3.68 106/ul Critically low 4.20-5.40 [facility] Comment on above: Performed By: #### C BC #### [facility] [address] [place] [address] Dr. Luh Brown WBC 8.1 103/ul Normal 4.0-11.0 [facility] Comment on above: Performed By: #### C BC #### [facility] [address] [place] [address] Dr. Luh Brown PROF CHEM 8 (BAS METB)on Anion gap [Moles/Vol] 14.6 mmol/L Normal [facility] Comment on above: Performed By: #### B MP #### [facility] [address] [place] [address] Dr. Luh Brown Calcium [Mass/Vol] 9.1 mg/dL Normal 8.5-10.1 [facility] Comment on above: Performed By: #### B MP #### [facility] [address] [place] [address] Dr. Luh Brown Chloride [Moles/Vol] 101 mmol/L Normal 98-107 [facility] Comment on above: Performed By: #### B MP #### [facility] [address] [place] [address] Dr. Luh Brown CO2 [Moles/Vol] 27.7 mmol/L Normal 21.0-32.0 [facility] Comment on above: Performed By: #### B MP #### [facility] [address] [address] [address] Luh Brown Creatinine [Mass/Vol] 0.90 mg/dL Normal 0.55-1.02 [facility] Comment on above: Performed By: #### B MP #### [facility] [address] [address] [address] Luh Brown EGFR-AF GUYANESE >60 Normal >=60 [facility] Comment on above: Performed By: #### B MP #### [facility] [address] [place] [address] Dr. Luh Brown EGFR-NON AF GUYANESE >60 Normal >=60 [facility] Comment on above: Performed By: #### B MP #### [facility] [address] [address] [address] Luh Brown Glucose [Mass/Vol] 121 mg/dL Critically high 74-106 T [facility] Comment on above: Performed By: #### B MP #### [facility] [address] [place] [address] Dr. Luh Brown Potassium [Moles/Vol] 4.3 mmol/L Normal 3.5-5.1 [facility] Comment on above: Performed By: #### B MP #### [facility] [address] [address] [address] Luh Brown Sodium [Moles/Vol] 139 mmol/L Normal 136-145 [facility] Comment on above: Performed By: #### B MP #### [facility] [address] [address] [address] Luh Brown Urea nitrogen [Mass/Vol] 18.0 mg/dL Normal 7.0-18.0 [facility] Comment on above: Performed By: #### B MP #### [facility] [address] [place] [address] Dr. Luh Brown Urea nitrogen/Creatinine [Mass ratio] 20.0 mg/mg Normal [facility] Comment on above: Performed By: #### B MP #### [facility] [address] [address] [address] Luh Brown PROTIMEon 03-25-2022 INR Coag (PPP) [Relative time] 0.94 {INR} Normal [facility] Comment on above: Performed By: #### P T #### [facility] [address] [address] [address] Luh Brown INR GUIDELINES SEE BELOW Normal [facility] Comment on above: Result Comment: DELISA RED INR: 2.0 - 3.0 CONDITIONS NOT LISTED BELOW 2.5 - 3.5 FOR PROSTHETIC HEART VALVE REPLACEMENT 2.5 - 3.5 RECURRENT THROMBOSIS Performed By: #### P T #### [facility] [address] [address] [address] Luh Brown PT Coag (PPP) [Time] 10.2 s Normal 9.0-11.6 [facility] Comment on above: Performed By: #### P T #### [facility] [address] [address] [address] Luh Brown CBCon 03-22-2022 HCT Canceled Normal [facility] Comment on above: Order Comment: TEST CBC WAS CANCELLED, 03/22/2022 08:56 NO SPECIMEN RECEIVED IN LAB. Performed By: #### C BC #### [facility] [address] [place] [address] HGB Canceled Normal [facility] Comment on above: Order Comment: TEST CBC WAS CANCELLED, 03/22/2022 08:56 NO SPECIMEN RECEIVED IN LAB. Performed By: #### C BC #### [facility] [address] [place] [address] MCHC Canceled Normal [facility] Comment on above: Order Comment: TEST CBC WAS CANCELLED, 03/22/2022 08:56 NO SPECIMEN RECEIVED IN LAB. Performed By: #### C BC #### [place] [address] [place] [address] MCV Canceled Normal [facility] Comment on above: Order Comment: TEST CBC WAS CANCELLED, 03/22/2022 08:56 NO SPECIMEN RECEIVED IN LAB. Performed By: #### C BC #### [facility] [address] [place] [address] NUCLEATED RBC Canceled Normal [facility] Comment on above: Order Comment: TEST CBC WAS CANCELLED, 03/22/2022 08:56 NO SPECIMEN RECEIVED IN LAB. Performed By: #### C BC #### [facility] [address] [place] [address] PLT Canceled Normal [facility] Comment on above: Order Comment: TEST CBC WAS CANCELLED, 03/22/2022 08:56 NO SPECIMEN RECEIVED IN LAB. Performed By: #### C BC #### [facility] [address] [place] [address] RBC Canceled Normal [facility] Comment on above: Order Comment: TEST CBC WAS CANCELLED, 03/22/2022 08:56 NO SPECIMEN RECEIVED IN LAB. Performed By: #### C BC #### [facility] [address] [place] [address] RDW-CV Canceled Normal [facility] Comment on above: Order Comment: TEST CBC WAS CANCELLED, 03/22/2022 08:56 NO SPECIMEN RECEIVED IN LAB. Performed By: #### C BC #### [facility] [address] [place] [address] WBC Canceled Normal [facility] Comment on above: Order Comment: TEST CBC WAS CANCELLED, 03/22/2022 08:56 NO SPECIMEN RECEIVED IN LAB. Performed By: #### C BC #### [facility] [address] [place] [address] CBCon 03-21-2022 HCT Canceled Normal [facility] Comment on above: Order Comment: TEST CBC WAS CANCELLED, 03/22/2022 08:56 NO SPECIMEN RECEIVED IN LAB. Performed By: #### C BC #### [facility] [address] [place] [address] HGB Canceled Normal [facility] Comment on above: Order Comment: TEST CBC WAS CANCELLED, 03/22/2022 08:56 NO SPECIMEN RECEIVED IN LAB. Performed By: #### C BC #### [facility] [address] [place] [address] MCHC Canceled Normal [facility] Comment on above: Order Comment: TEST CBC WAS CANCELLED, 03/22/2022 08:56 NO SPECIMEN RECEIVED IN LAB. Performed By: #### C BC #### [facility] [address] [place] [address] MCV Canceled Normal [facility] Comment on above: Order Comment: TEST CBC WAS CANCELLED, 03/22/2022 08:56 NO SPECIMEN RECEIVED IN LAB. Performed By: #### C BC #### [facility] [address] [place] [address] NUCLEATED RBC Canceled Normal [facility] Comment on above: Order Comment: TEST CBC WAS CANCELLED, 03/22/2022 08:56 NO SPECIMEN RECEIVED IN LAB. Performed By: #### C BC #### [facility] [address] [place] [address] PLT Canceled Normal [facility] Comment on above: Order Comment: TEST CBC WAS CANCELLED, 03/22/2022 08:56 NO SPECIMEN RECEIVED IN LAB. Performed By: #### C BC #### [facility] [address] [place] [address] RBC Canceled Normal [facility] Comment on above: Order Comment: TEST CBC WAS CANCELLED, 03/22/2022 08:56 NO SPECIMEN RECEIVED IN LAB. Performed By: #### C BC #### [facility] [address] [place] [address] RDW-CV Canceled Normal [facility] Comment on above: Order Comment: TEST CBC WAS CANCELLED, 03/22/2022 08:56 NO SPECIMEN RECEIVED IN LAB. Performed By: #### C BC #### [facility] [address] [place] [address] WBC Canceled Normal [facility] Comment on above: Order Comment: TEST CBC WAS CANCELLED, 03/22/2022 08:56 NO SPECIMEN RECEIVED IN LAB. Performed By: #### C BC #### [place] [address] [place] [address] COAGULATION SCREENon 022 APTT Canceled Normal [facility] Comment on above: Order Comment: TEST COAGULATION SCREEN WAS CANCELLED, 03/21/2022 05:17 Result Comment: THE APTT IS NO LONGER USED FOR MONITORING UNFRACTIONATED HEPARIN THERAPY. FOR MONITORING HEPARIN THERAPY, USE THE HEPARIN ASSAY. Performed By: #### C OAGS #### [facility] [address] [place] [address] PROTHROMBIN TIME Canceled Normal [facility] Comment on above: Order Comment: TEST COAGULATION SCREEN WAS CANCELLED, 03/21/2022 05:17 Performed By: #### C OAGS #### [facility] [address] [place] [address] PT, INR Canceled Normal [facility] Comment on above: Order Comment: TEST COAGULATION SCREEN WAS CANCELLED, 03/21/2022 05:17 Performed By: #### C OAGS #### [facility] [address] [place] [address] MAGNESIUMon 03-21-2022 MAGNESIUM Canceled Normal [facility] Comment on above: Order Comment: TEST MAGNESIUM WAS CANCELLED, 03/21/2022 05:17 Performed By: #### M G #### [facility] [address] [place] [address] RENAL FUNCTION PANELon 03-21 ALBUMIN Canceled Normal [facility] Comment on above: Order Comment: TEST RENAL FUNCTION PANEL WAS CANCELLED, 03/21/2022 05:17 Performed By: #### R ENAL #### [facility] [address] [place] [address] ANION GAP Canceled Normal [facility] Comment on above: Order Comment: TEST RENAL FUNCTION PANEL WAS CANCELLED, 03/21/2022 05:17 Performed By: #### R ENAL #### [facility] [address] [place] [address] BICARBONATE Canceled Normal [facility] Comment on above: Order Comment: TEST RENAL FUNCTION PANEL WAS CANCELLED, 03/21/2022 05:17 Performed By: #### R ENAL #### [facility] [address] [place] [address] CALCIUM Canceled Normal [facility] Comment on above: Order Comment: TEST RENAL FUNCTION PANEL WAS CANCELLED, 03/21/2022 05:17 Performed By: #### R ENAL #### [facility] [address] [place] [address] CHLORIDE Canceled Normal [facility] Comment on above: Order Comment: TEST RENAL FUNCTION PANEL WAS CANCELLED, 03/21/2022 05:17 Performed By: #### R ENAL #### [facility] [address] [place] [address] CREATININE Canceled Normal [facility] Comment on above: Order Comment: TEST RENAL FUNCTION PANEL WAS CANCELLED, 03/21/2022 05:17 Performed By: #### R ENAL #### [facility] [address] [place] [address] eGFR FEMALE Canceled Normal [facility] Comment on above: Order Comment: TEST RENAL FUNCTION PANEL WAS CANCELLED, 03/21/2022 05:17 Result Comment: CALC ULATIONS OF ESTIMATED GFR ARE PERFORMED USING THE 2020 CKD-EPI STUDY REFIT EQUATION WITHOUT THE RACE VARIABLE FOR THE IDMS-TRACEABLE CREATININE METHODS. https://jasn.asnjournals.org/content/early/ASN.14242 79724 Performed By: #### R ENAL #### [facility] [address] [place] [address] eGFR MALE Canceled Normal [facility] Comment on above: Order Comment: TEST RENAL FUNCTION PANEL WAS CANCELLED, 03/21/2022 05:17 Result Comment: CALC ULATIONS OF ESTIMATED GFR ARE PERFORMED USING THE 2020 CKD-EPI STUDY REFIT EQUATION WITHOUT THE RACE VARIABLE FOR THE IDMS-TRACEABLE CREATININE METHODS. https://jasn.asnjournals.org/content/early/ASN.20984 15565 Performed By: #### R ENAL #### [facility] [address] [place] [address] GLUCOSE Canceled Normal [facility] Comment on above: Order Comment: TEST RENAL FUNCTION PANEL WAS CANCELLED, 03/21/2022 05:17 Performed By: #### R ENAL #### [facility] [address] [place] [address] PHOSPHORUS Canceled Normal [facility] Comment on above: Order Comment: TEST RENAL FUNCTION PANEL WAS CANCELLED, 03/21/2022 05:17 Result Comment: The performance characteristics of phosphorus testing in heparinized plasma have been validated by the individual laboratory site where testing is performed. Testing on heparinized plasma is not approved by the FDA; however, such approval is not necessary. Performed By: #### R ENAL #### [place] [address] [place] [address] POTASSIUM Canceled Normal [facility] Comment on above: Order Comment: TEST RENAL FUNCTION PANEL WAS CANCELLED, 03/21/2022 05:17 Performed By: #### R ENAL #### [facility] [address] [place] [address] SODIUM Canceled Normal [facility] Comment on above: Order Comment: TEST RENAL FUNCTION PANEL WAS CANCELLED, 03/21/2022 05:17 Performed By: #### R ENAL #### [facility] [address] [place] [address] UREA NITROGEN Canceled Normal [facility] Comment on above: Order Comment: TEST RENAL FUNCTION PANEL WAS CANCELLED, 03/21/2022 05:17 Performed By: #### R ENAL #### [facility] [address] [place] [address] CBCon 03-20-2022 HCT Canceled Normal [facility] Comment on above: Order Comment: TEST CBC WAS CANCELLED, 03/22/2022 08:56 NO SPECIMEN RECEIVED IN LAB. Performed By: #### C BC #### [facility] [address] [place] [address] HGB Canceled Normal [facility] Comment on above: Order Comment: TEST CBC WAS CANCELLED, 03/22/2022 08:56 NO SPECIMEN RECEIVED IN LAB. Performed By: #### C BC #### [facility] [address] [place] [address] MCHC Canceled Normal [facility] Comment on above: Order Comment: TEST CBC WAS CANCELLED, 03/22/2022 08:56 NO SPECIMEN RECEIVED IN LAB. Performed By: #### C BC #### [facility] [address] [place] [address] MCV Canceled Normal [facility] Comment on above: Order Comment: TEST CBC WAS CANCELLED, 03/22/2022 08:56 NO SPECIMEN RECEIVED IN LAB. Performed By: #### C BC #### [facility] [address] [place] [address] NUCLEATED RBC Canceled Normal [facility] Comment on above: Order Comment: TEST CBC WAS CANCELLED, 03/22/2022 08:56 NO SPECIMEN RECEIVED IN LAB. Performed By: #### C BC #### [facility] [address] [place] [address] PLT Canceled Normal [facility] Comment on above: Order Comment: TEST CBC WAS CANCELLED, 03/22/2022 08:56 NO SPECIMEN RECEIVED IN LAB. Performed By: #### C BC #### [facility] [address] [place] [address] RBC Canceled Normal [facility] Comment on above: Order Comment: TEST CBC WAS CANCELLED, 03/22/2022 08:56 NO SPECIMEN RECEIVED IN LAB. Performed By: #### C BC #### [facility] [address] [place] [address] RDW-CV Canceled Normal [facility] Comment on above: Order Comment: TEST CBC WAS CANCELLED, 03/22/2022 08:56 NO SPECIMEN RECEIVED IN LAB. Performed By: #### C BC #### [facility] [address] [place] [address] WBC Canceled Normal [facility] Comment on above: Order Comment: TEST CBC WAS CANCELLED, 03/22/2022 08:56 NO SPECIMEN RECEIVED IN LAB. Performed By: #### C BC #### [facility] [address] [place] [address] CBC AND DIFFERENTIALon 03-20 % AUTOMATED IMMATURE GRAN 0.8 % Normal 0.0 - 0.9 [facility] Comment on above: Result Comment: Adrienne ture Granulocyte Count (IG) includes promyelocytes, myelocytes and metamyelocytes but does not include bands. Percent differential counts (%) should be interpreted in the context of the absolute cell counts (cells/L). Performed By: #### C OAGS #### [facility] [address] [place] [address] Basophils (Bld) [#/Vol] 0.02 10*3/uL Normal 0.00 - 0.10 [facility] Comment on above: Performed By: #### C OAGS #### [facility] [address] [place] [address] Basophils/100 WBC (Bld) 0.2 % Normal 0.0 - 2.0 [facility] Comment on above: Performed By: #### C OAGS #### [facility] [address] [place] [address] Eosinophils (Bld) [#/Vol] 0.07 10*3/uL Normal 0.00 - 0.70 [facility] Comment on above: Performed By: #### C OAGS #### [facility] [address] [place] [address] Eosinophils/100 WBC (Bld) 0.8 % Normal 0.0 - 6.0 [facility] Comment on above: Performed By: #### C OAGS #### [facility] [address] [place] [address] Erythrocyte distribution width (RBC) [Ratio] 13.4 % Normal 11.5 - 14.5 [facility] Comment on above: Performed By: #### C OAGS #### [facility] [address] [place] [address] Hematocrit (Bld) [Volume fraction] 31.6 % Low 36.0 - 46.0 [facility] Comment on above: Performed By: #### C OAGS #### [facility] [address] [place] [address] Hemoglobin (Bld) [Mass/Vol] 10.4 g/dL Low 12.0 - 16.0 [facility] Comment on above: Performed By: #### C OAGS #### [facility] [address] [place] [address] Lymphocytes (Bld) [#/Vol] 1.30 10*3/uL Normal 1.20 - 4.80 [facility] Comment on above: Performed By: #### C OAGS #### [facility] [address] [place] [address] Lymphocytes/100 WBC (Bld) 15.5 % Normal 13.0 - 44.0 [facility] Comment on above: Performed By: #### C OAGS #### [facility] [address] [place] [address] MCHC (RBC) [Mass/Vol] 32.9 g/dL Normal 32.0 - 36.0 [facility] Comment on above: Performed By: #### C OAGS #### [facility] [address] [place] [address] MCV (RBC) [Entitic vol] 91 fL Normal 80 - 100 [facility] Comment on above: Performed By: #### C OAGS #### [facility] [address] [place] [address] Monocytes (Bld) [#/Vol] 0.71 10*3/uL Normal 0.10 - 1.00 [facility] Comment on above: Performed By: #### C OAGS #### [facility] [address] [place] [address] Monocytes/100 WBC (Bld) 8.5 % Normal 2.0 - 10.0 [facility] Comment on above: Performed By: #### C OAGS #### [facility] [address] [place] [address] Neutrophils (Bld) [#/Vol] 6.21 10*3/uL Normal 1.20 - 7.70 [facility] Comment on above: Performed By: #### C OAGS #### [facility] [address] [place] [address] Neutrophils/100 WBC (Bld) 74.2 % Normal 40.0 - 80.0 [facility] Comment on above: Performed By: #### C OAGS #### [facility] [address] [place] [address] NUCLEATED RBC 0.0 /100 WBC Normal 0.0-0.0 [facility] Comment on above: Performed By: #### C OAGS #### [facility] [address] [place] [address] Platelets (Bld) [#/Vol] 235 10*3/uL Normal 150 - 450 [facility] Comment on above: Performed By: #### C OAGS #### [facility] [address] [place] [address] RBC 3.49 x10E12/L Low 4.00 - 5.20 [facility] Comment on above: Performed By: #### C OAGS #### [facility] [address] [place] [address] WBC (Bld) [#/Vol] 8.4 10*3/uL Normal 4.4 - 11.3 [facility] Comment on above: Performed By: #### C OAGS #### [facility] [address] [place] [address] COAGULATION SCREENon 022 aPTT Coag (Bld) [Time] 17 s Low 26 - 39 [facility] Comment on above: Result Comment: THE APTT IS NO LONGER USED FOR MONITORING UNFRACTIONATED HEPARIN THERAPY. FOR MONITORING HEPARIN THERAPY, USE THE HEPARIN ASSAY. Performed By: #### C OAGS #### [facility] [address] [place] [address] PT Coag (PPP) [Time] 11.4 s Normal 9.8 - 13.4 [facility] Comment on above: Performed By: #### C OAGS #### [facility] [address] [place] [address] PT, INR 1.0 Normal 0.9 - 1.1 [facility] Comment on above: Performed By: #### C OAGS #### [facility] [address] [place] [address] Complete Blood Count + Diffe anali 03-20-2022 Basophils/100 WBC (Bld) 0.2 % 0.0 - 2.0 [facility] MyVRDulce franz 250 DO Work Phone: Erythrocyte distribution width (RBC) [Ratio] 13.4 % See Below [facility] Arpita franz 250 DO Work Phone: Comment on above: Reference Range: 11. 5 - 14.5 Hematocrit (Bld) [Volume fraction] 31.6 % below low threshold See Below [facility] Arpita franz 250 DO Work Phone: Comment on above: Reference Range: 36. 0 - 46.0 Hemoglobin (Bld) [Mass/Vol] 10.4 g/dL below low threshold See Below [facility] Arpita franz 250 DO Work Phone: Comment on above: Reference Range: 12. 0 - 16.0 Lymphocytes/100 WBC (Bld) 15.5 % See Below [facility] Arpita franz 250 DO Work Phone: Comment on above: Reference Range: 13. 0 - 44.0 MCHC (RBC) [Mass/Vol] 32.9 g/dL See Below [facility] Arpita franz 250 DO Work Phone: Comment on above: Reference Range: 32. 0 - 36.0 MCV (RBC) [Entitic vol] 91 fL 80 - 100 [facility] Arpita franz 250 DO Work Phone: Monocytes/100 WBC (Bld) 8.5 % 2.0 - 10.0 [facility] Arpita franz 250 DO Work Phone: Neutrophils/100 WBC (Bld) 74.2 % See Below [facility] Arpita frnaz 250 DO Work Phone: Comment on above: Reference Range: 40. 0 - 80.0 Platelets (Bld) [#/Vol] 235 10*3/uL 150 - 450 [facility] Arpita franz 250 DO Work Phone: RBC (Bld) [#/Vol] 3.49 {x10E12/L} below low threshold See Below [facility] Arpita franz 250 DO Work Phone: Comment on above: Reference Range: 4.0 0 - 5.20 WBC (Bld) [#/Vol] 8.4 10*3/uL 4.4 - 11.3 [facility] Arpita franz 250 DO Work Phone: Complete Blood Count + Differential 0.02 {x10E9/L} See Below [facility] Arpita Eugene DO Work Phone: Comment on above: Reference Range: 0.0 0 - 0.10 Complete Blood Count + Differential 0.07 {x10E9/L} See Below [facility] Arpita Eugene DO Work Phone: Comment on above: Reference Range: 0.0 0 - 0.70 Complete Blood Count + Differential 0.71 {x10E9/L} See Below [facility] Arpita Eugene DO Work Phone: Comment on above: Reference Range: 0.1 0 - 1.00 Complete Blood Count + Differential 1.30 {x10E9/L} See Below [facility] Arpita Eugene DO Work Phone: Comment on above: Reference Range: 1.2 0 - 4.80 Complete Blood Count + Differential 6.21 {x10E9/L} See Below [facility] Arpita Eugene DO Work Phone: Comment on above: Reference Range: 1.2 0 - 7.70 Complete Blood Count + Differential 0.8 % 0.0 - 0.9 [facility] Arpita Eugene DO Work Phone: Comment on above: Immature Granulocyte Count (IG) includes promyelocytes, myelocytes and metamyelocytes but does not include bands. Percent differential counts (%) should be interpreted in the context of the absolute cell counts (cells/L). Complete Blood Count + Differential 0.0 {/100_WBC} 0.0-0.0 -[facility] Heart-Lora y 250 DO Work Phone: Daily [...] overnight. Objective Data: Objective Information: T PRBPMAPSpO2 [id number]% Date/Time03/20 12: 13: 13: 13: 13: 8:00 [...] ----- Mn/Dy/Year TimeIntakeOutputNet Mar 20, 2022 6:00 [id number] Mar 19, 2022 10:00 [id number] The Intake and Output Totals for the last 24 hours are: [id number] Physical Exam Narrative: Physical Exam: [V] Reviewed [...] LA Area A2C: 22.1 cm2 LA [place] A4C: 5.7 cm LA [place] A2C: 5.9 cm LA Volume Index: 32.4 ml/m2 RA VOLUME BY A/L METHO (more content not included)... Normal [facility] Echocardiogramon 03-20-2022 Echocardiography [facility] [address] [place] [address] and TRANSTHORACIC ECHOCARDIOGRAM REPORT Patient Name: VIRGILIO JOHNSON Reading Physician: [id number] Oswaldo Willoughby MD Study Date: 03/20/2022 Referring ABDIAZIZ NASH Physician: MRN/PID: [id number] PCP: Accession/Order#: [id number] [facility] Location: Date of : 1960 Fellow: Gender: F Nurse: Admit Date: 03/19/2022 Records Management Assistant: David Bowens RDCS Admission Status: Inpatient - Time Additional Staff: Critical Height: 165.10 cm [facility] Weight: 116.58 kg Study Type: Echocardiogram BSA: 2.20 m2 Blood Pressure: 168 /72 mmHg Diagnosis/ICD: Z95.2-Presence of prosthetic heart valve Indication: S/p TAVR Procedure/CPT: Echo Complete w Full Doppler-[id number] Patient History: Pertinent History: HTN. Restless leg [...] LA Area A2C: 22.1 cm2 LA [place] A4C: 5.7 cm LA [place] A2C: 5.9 cm LA Volume Index: 32.4 [...] cm2 (2.5-5.5cm2) (more content not included)... Normal [facility] Electrocardiogram 12 Leadon 03-20-2022 Electrocardiogram 12 Lead Ventricular Rate 68 Atrial Rate 68 P-R Interval 228 QRS Duration 92 Q-T Interval 428 QTC Calculation(Bazett) 455 P [place] 60 R [place] -12 T [place] 167 QRS Count 11 Q Onset 223 [...] no longer Present Confirmed by Vinay Wright ([id number]) on 03/23/2022 4:58:30 PM Normal [facility] Laboratory - Coagulationon 0 03-20-2022 aPTT Coag (PPP) [Time] 17 s below low threshold 26 - 39 [facility] y 250 DO Work Phone: Comment on above: THE APTT IS NO LONGE R USED FOR MONITORING UNFRACTIONATED HEPARIN THERAPY. FOR MONITORING HEPARIN THERAPY, USE THE HEPARIN ASSAY. INR Coag (PPP) [Relative time] 1.0 {INR} 0.9 - 1.1 [facility] 250 DO Work Phone: PT Coag (PPP) [Time] 11.4 s 9.8 - 13.4 [facility] y 250 DO Work Phone: MAGNESIUMon 03-20-2022 Magnesium [Mass/Vol] 1.64 mg/dL Normal 1.60 - 2.40 [facility] Comment on above: Performed By: #### C #### [facility] [address] [place] [address] Magnesium, Serumon 2 Magnesium [Mass/Vol] 1.64 mg/dL See Below [facility] [place] [facility] 250 DO Work Phone: [phone] Comment on above: Reference Range: 1.6 0 - 2.40 No Panel Informationon 03-20 [email or web address]: [email or web address]?RetrieveTestByDateT ld?[email or web address]& Date=09-23-2021&Time=02% 3a39%3a36%3a00&TestType= ECG&Site=1&OutputType=PD F&Ext=PDF [facility] 250 DO Work Phone: [phone] Sinus rhythm with 1s t degree A-V block [facility] 250 DO Work Phone: [phone] Abnormal [facility] 250 DO Work Phone: [phone] 1 [facility] 250 DO Work Phone: [phone] 1 [facility] 250 DO Work Phone: [phone] 1 [facility] 250 DO Work Phone: [phone] 1 [facility] 250 DO Work Phone: [phone] 1 [facility] 250 DO Work Phone: [phone] 1 [facility] 250 DO Work Phone: [phone] 1 [facility] 250 DO Work Phone: [phone] [facility] 250 DO Work Phone: [phone] 1 [facility] 250 DO Work Phone: [phone] 1 [facility] 250 DO Work Phone: [phone] 1 [facility] 250 DO Work Phone: [phone] 1 [facility] 250 DO Work Phone: [phone] [facility] 250 DO Work Phone: [phone] [facility] 250 DO Work Phone: Order [...] a Day (more content not included)... Normal [facility] RENAL FUNCTION PANELon 03-20 Albumin [Mass/Vol] 4.0 g/dL Normal 3.4 - 5.0 [facility] Comment on above: Performed By: #### C BC #### [facility] [address] [place] [address] Anion gap [Moles/Vol] 14 mmol/L Normal 10 - 20 [facility] Comment on above: Performed By: #### C BC #### [place] [address] [place] [address] Calcium [Mass/Vol] 8.8 mg/dL Normal 8.6 - 10.6 [facility] Comment on above: Performed By: #### C BC #### [facility] [address] [place] [address] Chloride [Moles/Vol] 106 mmol/L Normal 98 - 107 [facility] Comment on above: Performed By: #### C BC #### [place] [address] [place] [address] Creatinine [Mass/Vol] 0.98 mg/dL Normal 0.50 - 1.05 [facility] Comment on above: Performed By: #### C BC #### [facility] [address] [place] [address] GFR/1.73 sq M.predicted among non-blacks MDRD (S/P/Bld) [Vol rate/Area] 66 mL/min/{1.73_m2} Normal >90 [facility] Comment on above: Result Comment: CALC ULATIONS OF ESTIMATED GFR ARE PERFORMED USING THE 2020 CKD-EPI STUDY REFIT EQUATION WITHOUT THE RACE VARIABLE FOR THE IDMS-TRACEABLE CREATININE METHODS. https://jasn.asnjournals.org/content/early//ASN.85450 92814 Performed By: #### C BC #### [place] [address] [place] [address] Glucose [Mass/Vol] 127 mg/dL High 74 - 99 [facility] Comment on above: Performed By: #### C BC #### [facility] [address] [place] [address] HCO3 (Bld) [Moles/Vol] 24 mmol/L Normal 21 - 32 [facility] Comment on above: Performed By: #### C BC #### [facility] [address] [place] [address] Phosphate [Mass/Vol] 5.0 mg/dL High 2.5 - 4.9 [facility] Comment on above: Result Comment: The performance characteristics of phosphorus testing in heparinized plasma have been validated by the individual laboratory site where testing is performed. Testing on heparinized plasma is not approved by the FDA; however, such approval is not necessary. Performed By: #### C BC #### [facility] [address] [place] [address] Potassium [Moles/Vol] 4.2 mmol/L Normal 3.5 - 5.3 [facility] Comment on above: Performed By: #### C BC #### [facility] [address] [place] [address] Sodium [Moles/Vol] 140 mmol/L Normal 136 - 145 [facility] Comment on above: Performed By: #### C BC #### [facility] [address] [place] [address] Urea nitrogen [Mass/Vol] 15 mg/dL Normal 6 - 23 [facility] Comment on above: Performed By: #### C BC #### [facility] [address] [place] [address] Radiologyon 03-20-2022 XR Chest Single view [facility] DO Work Phone: Renal Function Panelon 03-20 Albumin BCP dye [Mass/Vol] 4.0 g/dL 3.4 - 5.0 [facility] 250 DO Work Phone: Anion gap [Moles/Vol] 14 mmol/L 10 - 20 [facility] DO Work Phone: Calcium [Mass/Vol] 8.8 mg/dL 8.6 - 10.6 [facility] 250 DO Work Phone: Chloride [Moles/Vol] 106 mmol/L 98 - 107 [facility] 250 DO Work Phone: CO2 [Moles/Vol] 24 mmol/L 21 - 32 [facility] 250 DO Work Phone: Creatinine [Mass/Vol] 0.98 mg/dL See Below [facility] 250 DO Work Phone: Comment on above: Reference Range: 0.5 0 - 1.05 Glucose [Mass/Vol] 127 mg/dL above high threshold 74 - 99 [facility] 250 DO Work Phone: Phosphate [Mass/Vol] 5.0 mg/dL above high threshold 2.5 - 4.9 [place] [address] DO Work Phone: Comment on above: The performance missy acteristics of phosphorus testing in heparinized plasma have been validated by the individual laboratory site where testing is performed. Testing on heparinized plasma is not approved by the FDA; however, such approval is not necessary. Potassium [Moles/Vol] 4.2 mmol/L 3.5 - 5.3 [place] [address] DO Work Phone: Sodium [Moles/Vol] 140 mmol/L 136 - 145 [facility] 250 DO Work Phone: Urea nitrogen [Mass/Vol] 15 mg/dL 6 - 23 [place] [address] DO Work Phone: Renal Function Panel 66 {mL/min/1.73m2} >90 [place] [address] DO Work Phone: Comment on above: CALCULATIONS OF JT MATED GFR ARE PERFORMED USING THE 2020 CKD-EPI STUDY REFIT EQUATION WITHOUT THE RACE VARIABLE FOR THE IDMS-TRACEABLE CREATININE METHODS.https://jasn.asnjournals.org/content/early//A SN.0644587762 TH CHEST 1 VIEWon 03-20-2022 CHEST 1 VIEW Patient Name: VIRGILIO JOHNSON STUDY: CHEST 1 VIEW; 03/20/2022 6:56 am INDICATION: s/p TAVR . COMPARISON: Chest radiograph dated 03/19/2022nd CT scan 03/08/22 ACCESSION NUMBER(S): [id number] ORDERING CLINICIAN: ABDIAZIZ NASH FINDINGS: AP radiograph [...] Electronically signed by: RUPERTO CROWELL MD Normal [facility] ACT-LOW RANGEon 03-19-2022 ACT-LOW RANGE 292 SECONDS High 89 - 169 [facility] Comment on above: Result Comment: Note new reference range as of 10/20/2018. Target ACT range will vary based on the patient population, clinical status, and surgical intervention occurring. Performed By: #### A CTLR #### [facility] [address] [place] [address] ACT-LOW RANGE 209 SECONDS High 89 - 169 [facility] Comment on above: Result Comment: Note new reference range as of 10/20/2018. Target ACT range will vary based on the patient population, clinical status, and surgical intervention occurring. Performed By: #### A CTLR #### [facility] [address] [place] [address] Admission Risk Screen - Adul ton 03-19-2022 [...] AlertFor Ebola-like Symptoms: Isolate Patient and Notify Provider/Armhole Feller Handstitching Machine For Contact: Notify Provider/Armhole Feller Handstitching Machine Advance Directive: Advance Directive/DNRno Advance Directive Information [...] thoughts of harming anyone elseunable to assess [place] Suicide: Risk Screen Not Applicable/Able to Answerable to be screened In the Past Month: Have you wished you were or could go to sleep and not wake upno In the Past Month: Have you had any actual thoughts of killing yourselfno Lifetime: Have you ever done, started to do, or prepared to do anything to end your lifeno [place] Suicide Risknegative Adult Nutrition Screen: Have you [...] Spiritual Screen: Are there any cultural, spiritual, pentecostal practices/values/needs that are important for us to knowunable to assess CAGE: [place] an [place] [place] [facility] [place]/[place] /[place] no Vaccinations: Vaccination - Influenza Vaccination Screen: Is it flu season (between and October 15)Yes Screening for identified contraindications to influenza vaccinationpatient already received vaccine this season Vaccination - Pneumonia Vaccination Screen: Patient has received a previous pneumonia vaccine:no/unknown... Immunocompetent persons with underlying chronic conditions or reside in chcf care facilitiesnone of these conditions Persons with [...] Mobility (amount/contr (more content not included)... Normal [facility] CBCon 03-19-2022 Erythrocyte distribution width (RBC) [Ratio] 13.6 % Normal 11.5 - 14.5 [facility] Comment on above: Performed By: #### C BC ####[id number] [place] [address] Hematocrit (Bld) [Volume fraction] 31.4 % Low 36.0 - 46.0 [facility] Comment on above: Performed By: #### C BC ####[id number] [place] [address] Hemoglobin (Bld) [Mass/Vol] 10.6 g/dL Low 12.0 - 16.0 [facility] Comment on above: Performed By: #### C BC ####[id number] [place] [address] MCHC (RBC) [Mass/Vol] 33.8 g/dL Normal 32.0 - 36.0 [facility] Comment on above: Performed By: #### C BC ####[id number] [place] [address] MCV (RBC) [Entitic vol] 88 fL Normal 80 - 100 [facility] Comment on above: Performed By: #### C BC ####[id number] [place] [address] NUCLEATED RBC 0.0 /100 WBC Normal 0.0-0.0 [facility] Comment on above: Performed By: #### C BC ####[id number] [place] [address] Platelets (Bld) [#/Vol] 257 10*3/uL Normal 150 - 450 [facility] Comment on above: Performed By: #### C BC ####[id number] [place] [address] RBC 3.56 x10E12/L Low 4.00 - 5.20 [facility] Comment on above: Performed By: #### C BC ####[id number] [place] [address] WBC (Bld) [#/Vol] 10.7 10*3/uL Normal 4.4 - 11.3 [facility] Comment on above: Performed By: #### C BC ####[id number] [place] [address] COAGULATION SCREENon 022 aPTT Coag (Bld) [Time] 28 s Normal 26 - 39 [facility] Comment on above: Result Comment: THE APTT IS NO LONGER USED FOR MONITORING UNFRACTIONATED HEPARIN THERAPY. FOR MONITORING HEPARIN THERAPY, USE THE HEPARIN ASSAY. Performed By: #### C OAGS ####[id number] [place] [address] PT Coag (PPP) [Time] 11.9 s Normal 9.8 - 13.4 [facility] Comment on above: Performed By: #### C OAGS ####[id number] [place] [address] PT, INR 1.0 Normal 0.9 - 1.1 [facility] Comment on above: Performed By: #### C OAGS ####[id number] [place] [address] Clinical Event Note-s/p succ essful 29 mm evolut FXon 03-19-2022 Clinical Event Note-s/p successful 29 mm evolut FX Clinical Event: Clinical Event Note: Topics/p successful 29 mm evolut FX Details Indication: Severe Access Primary: right SECTION 8 PROPERTY MANAGER s/p 2 proglide Secondary: left SECTION 8 PROPERTY MANAGER 6 afghan s/p 1 proglide TVP: right IJ vein, 7 afghan, removed in the dental lab technician. s/p successful 29 mm evolut FX LVEDP [...] 14:57 by Sharon Martin ( (Fellow)) Normal [facility] Echocardiogramon 03-19-2022 Echocardiography [facility] ([facility] [address] [place] [address] and TRANSTHORACIC ECHOCARDIOGRAM REPORT Patient Name: VIRGILIO JOHNSON Reading Physician: [id number] Tru Reyes MD Study Date: 03/19/2022 Referring ABDIAZIZ NASH Physician: MRN/PID: [id number] PCP: Accession/Order[id number] [facility] Techn[facility] Location: Date of : 1960 Fellow: Gender: F Nurse: Admit Date: 03/19/2022 Records Management Assistant: David Bowens RDCS Admission Status: Inpatient - Additional Staff: Routine Height: 172.72 cm CC Report to: [facility] Weight: 114.31 kg Study Type: Echocardiogram BSA: 2.25 m2 Blood Pressure: 162 /55 mmHg Diagnosis/ICD: I35.0-Nonrheumatic aortic (valve) stenosis Indication: TAVR Periprocedure Procedure/CPT: Echo Limited-01745; Color Doppler-73759; Doppler Limited-14567 Patient History: Valve Disorders: Aortic Stenosis. Pertinent [...] 0.34 AoV Dimensionless Index Post TAVR: 0.74 [id number] Tru Reyes MD Electronically si (more content not included)... Normal [facility] Electrocardiogram 12 Leadon 03-19-2022 Electrocardiogram 12 Lead Ventricular Rate 69 Atrial Rate 300 QRS Duration 100 Q-T Interval 388 QTC Calculation(Bazett) 415 P [place] 56 R [place] -12 T [place] 112 QRS Count 11 Q Onset 219 [...] Wright ([id number]) on 03/23/2022 4:57:26 PM Normal [facility] Electrocardiogram 12 Lead Ventricular Rate 88 Atrial Rate 88 P-R Interval 220 QRS Duration 90 Q-T Interval 434 QTC Calculation(Bazett) 525 R [place] -1 T [place] -29 QRS Count 14 Q Onset 220 P Onset 110 P Offset 194 T Offset 437 QTC [place] 493 Diagnosis Class Abnormal Diagnosis Poor data quality Sinus rhythm with 1st degree A-V block LVH with repolarization abnormality ST elevation consider inferior injury or acute infarct Prolonged QT interval or tu fusion, consider myocardial disease, electrolyte imbalance, or drug effects ACUTE PA / STEMI Abnormal ECG When compared with ECG of 19-MAR-2022 09:48, Significant changes have occurred Confirmed by Vinay Wright ([id number]) on 03/23/2022 4:57:14 PM Normal [facility] Electrocardiogram 12 Lead Ventricular Rate 64 Atrial Rate 64 P-R Interval 212 QRS Duration 108 Q-T Interval 454 QTC Calculation(Bazett) 468 P [place] 63 R [place] -5 T [place] -66 QRS Count 11 Q Onset 210 [...] Emery ([id number]) on 03/24/2022 5:38:44 PM Normal [facility] Laboratory - Coagulationon 0 03-19-2022 aPTT Coag (PPP) [Time] 28 s 26 - 39 [facility] 250 DO Work Phone: Comment on above: THE APTT IS NO LONGE R USED FOR MONITORING UNFRACTIONATED HEPARIN THERAPY. FOR MONITORING HEPARIN THERAPY, USE THE HEPARIN ASSAY. INR Coag (PPP) [Relative time] 1.0 {INR} 0.9 - 1.1 [facility] 250 DO Work Phone: PT Coag (PPP) [Time] 11.9 s 9.8 - 13.4 [facility] 250 DO Work Phone: Laboratory - Hematology and Cell countson 03-19-2022 Erythrocyte distribution width (RBC) [Ratio] 13.6 % See Below [facility] 250 DO Work Phone: Comment on above: Reference Range: 11. 5 - 14.5 Hematocrit (Bld) [Volume fraction] 31.4 % below low threshold See Below [facility] Arpita franz 250 DO Work Phone: Comment on above: Reference Range: 36. 0 - 46.0 Hemoglobin (Bld) [Mass/Vol] 10.6 g/dL below low threshold See Below [facility] Arpita franz 250 DO Work Phone: Comment on above: Reference Range: 12. 0 - 16.0 MCHC (RBC) [Mass/Vol] 33.8 g/dL See Below [facility] 250 DO Work Phone: Comment on above: Reference Range: 32. 0 - 36.0 MCV (RBC) [Entitic vol] 88 fL 80 - 100 [facility] 250 DO Work Phone: Platelets (Bld) [#/Vol] 257 10*3/uL 150 - 450 [facility] DO Work Phone: RBC (Bld) [#/Vol] 3.56 {x10E12/L} below low threshold See Below [facility] 250 DO Work Phone: Comment on above: Reference Range: 4.0 0 - 5.20 WBC (Bld) [#/Vol] 10.7 10*3/uL 4.4 - 11.3 -[facility] with [facility] Arpita franz 250 DO Work Phone: MAGNESIUMon 03-19-2022 Magnesium [Mass/Vol] 1.43 mg/dL Low 1.60 - 2.40 [facility] Comment on above: Performed By: #### C OAGS #### [facility] [address] [place] [address] Magnesium, Serumon 2 Magnesium [Mass/Vol] 1.43 mg/dL below low threshold See Below [facility] franz 250 DO Work Phone: Comment on above: Reference Range: 1.6 0 - 2.40 No Panel Informationon 03-19 0.0 {/100_WBC} 0.0-0.0 [facility] [facility] 250 DO Work Phone: [phone] [email or web address]: [email or web address] .[email or web address]?RetrieveTestByDateT ld?TrimowqGZ=[email or web address]& Date=08-26-2021&Time=15% 3a16%3a03%3a00&TestType= ECG&Site=1&OutputType=PD F&Ext=PDF [facility] 250 DO Work Phone: [phone] Normal sinus rhythm [facility] 250 DO Work Phone: [phone] Abnormal [facility] 250 DO Work Phone: [phone] 1 [facility] 250 DO Work Phone: [phone] 1 [facility] 250 DO Work Phone: [phone] 1 [facility] 250 DO Work Phone: [phone] 1 [facility] 250 DO Work Phone: [phone] 1 [facility] 250 DO Work Phone: [phone] 1 [facility] 250 DO Work Phone: [phone] 1 [facility] 250 DO Work Phone: [phone] 1 [facility] 250 DO Work Phone: [phone] 1 [facility] 250 DO Work Phone: [phone] 1 [facility] 250 DO Work Phone: [phone] 1 [facility] 250 DO Work Phone: [phone] 1 [facility] 250 DO Work Phone: [phone] [facility] 250 DO Work Phone: [phone] 1 [facility] 250 DO Work Phone: [phone] [email or web address]: [email or web address] .[email or web address]?RetrieveTestByDateT ld?YhbeghkZF=[email or web address]& Date=08-26-2021&Time=15% 3a15%3a04%3a00&TestType= ECG&Site=1&OutputType=PD F&Ext=PDF [facility] 250 DO Work Phone: [phone] Poor data quality [facility] 250 DO Work Phone: [phone] Abnormal [facility] 250 DO Work Phone: [phone] 1 [facility] 250 DO Work Phone: [phone] 1 [facility] 250 DO Work Phone: [phone] 1 [facility] 250 DO Work Phone: [phone] [facility] 250 DO Work Phone: [phone] 1 [facility] 250 DO Work Phone: [phone] 1 [facility] 250 DO Work Phone: [phone] 1 [facility] 250 DO Work Phone: [phone] 1 [facility] 250 DO Work Phone: [phone] 1 [facility] 250 DO Work Phone: [phone] 1 [facility] 250 DO Work Phone: [phone] 1 [facility] 250 DO Work Phone: [phone] [facility] 250 DO Work Phone: [phone] 292 {SECONDS} above high threshold 89 - 169 [facility] 250 DO Work Phone: [phone] Comment on above: Note new reference r sara as of 10/20/2018. Target ACT range will vary based on the patient population, clinical status, and surgical intervention occurring. 209 {SECONDS} above high threshold 89 - 169 [facility] 250 DO Work Phone: [phone] Comment on above: Note new reference r sara as of 10/20/2018. Target ACT range will vary based on the patient population, clinical status, and surgical intervention occurring. [facility] 250 DO Work Phone: [email or web address]: [email or web address] .[email or web address]?RetrieveTestByDateT ld?CxshosaQY=[email or web address]& Date=08-26-2021&Time=09% 3a48%3a09%3a00&TestType= ECG&Site=1&OutputType=PD F&Ext=PDF [facility] 250 DO Work Phone: Sinus rhythm with 1s t degree A-V block [facility] 250 DO Work Phone: Abnormal [facility] 250 DO Work Phone: [phone] 1 [facility] 250 DO Work Phone: [phone] 1 [facility] 250 DO Work Phone: [phone] 1 [facility] 250 DO Work Phone: [phone] 1 [facility] 250 DO Work Phone: [phone] 1 [facility] 250 DO Work Phone: [phone] 1 [facility] 250 DO Work Phone: [phone] 1 [facility] 250 DO Work Phone: -[phone] 1 [facility] 250 DO Work Phone: [phone] 1 [facility] 250 DO Work Phone: [phone] 1 [facility] 250 DO Work Phone: [phone] 1 [facility] 250 DO Work Phone: [phone] 1 [facility] 250 DO Work Phone: [phone] 1 [facility] 250 DO Work Phone: [phone] [facility] 250 DO Work Phone: Order Reconciliationon 03-19 Order Reconciliation Page 1 Admission Reconciliation Document Reconciliation Type: Admission requested on behalf of Abdiaziz Nash (Advanced Practice Nurse) done by Abdiaziz Nash (DURABILITY ENGINEER-BELLHOP SERVICE CAPTAIN) Admission - Reconciliation: 19-Mar-2022 12:25 by: Abdiaziz Nash (DURABILITY ENGINEER-BELLHOP SERVICE CAPTAIN) Home MedicationsEnteredLast Dose TakenReconciled with current Order Reconciliation Comment/ Additional Information amLODIPine 5 mg oral tablet 1 tab(s) orally once a [id number] 2 8:00 AM Reviewed and Held atorvastatin 10 mg oral tablet 1 tab(s) orally once a [id number]-Mar-2022 8:00 PM Atorvastatin Tablet (LIPITOR)DOSE = 10 mg Oral At Bedtimeatorvastatin 10 mg oral tablet continued as the inpatient order Atorvastatin dicyclomine 20 mg oral tablet 1 tab(s) orally 2 times a [id number]-Mar-2022 8:00 PM Dicyclomine Tablet (BENTYL)DOSE = 20 mg Oral 2 Times a Day Before Mealsdicyclomine 20 mg oral tablet continued as the inpatient order Dicyclomine gabapentin 100 mg oral capsule 2 cap(s) orally 2 times a [id number]-Mar-2022 8:00 PM Gabapentin CapsuleDOSE = 200 mg Oral 2 Times a Day gabapentin 100 mg oral capsule continued as the inpatient order Gabapentin ibuprofen 200 mg oral tablet 1 tab(s) orally 2 times a day, As Needed Reviewed and Held losartan-hydrochlorothia zide 100 mg-25 mg oral tablet 1 tab(s) orally once a [id number] 8:00 AM Reviewed and Held meloxicam 15 mg oral tablet 1 tab(s) orally once a [id number] 8:00 AM Reviewed and Held rOPINIRole [...] mg OnceRecommended Infusion Time: 1 hour(s) Normal [facility] Patient Profile - Adult v2on 03-19-2022 Patient Profile - Adult v2 Profile: Initial Info: How to be Addressedteresa Spoken Language PreferredEnglish Stated Reason for Admissionuta Wants Family/Rep Notified of Admissionn/a; family present Notify PCPdeferred, unable to answer Informed of Patient Visiting Rightsdeferred Arrived Fromhospital Patient Belongingsnone Medications Brought to Hospitalno General Health: Weight in kg117 kilogram(s) Weight in msy388.9 pound(s) Weight Methodstated Scale Typebed Height in [...] 19-Mar-2022 18:02 by Akilah Villa (TOMY) Normal [facility] RENAL FUNCTION PANELon 03-19 Albumin [Mass/Vol] 3.8 g/dL Normal 3.4 - 5.0 [facility] Comment on above: Performed By: #### R ENAL #### [facility] [address] [place] [address] Anion gap [Moles/Vol] 17 mmol/L Normal 10 - 20 [facility] Comment on above: Performed By: #### R ENAL #### [place] [address] [place] [address] Calcium [Mass/Vol] 8.5 mg/dL Low 8.6 - 10.6 [facility] Comment on above: Performed By: #### R ENAL #### [place] [address] [place] [address] Chloride [Moles/Vol] 105 mmol/L Normal 98 - 107 [facility] Comment on above: Performed By: #### R ENAL #### [place] [address] [place] [address] Creatinine [Mass/Vol] 0.76 mg/dL Normal 0.50 - 1.05 [facility] Comment on above: Performed By: #### R ENAL #### [facility] [address] [place] [address] GFR/1.73 sq M.predicted among non-blacks MDRD (S/P/Bld) [Vol rate/Area] 89 mL/min/{1.73_m2} Normal >90 [facility] Comment on above: Result Comment: CALC ULATIONS OF ESTIMATED GFR ARE PERFORMED USING THE 2020 CKD-EPI STUDY REFIT EQUATION WITHOUT THE RACE VARIABLE FOR THE IDMS-TRACEABLE CREATININE METHODS. https://jasn.asnjournals.org/content/early//ASN.96513 12752 Performed By: #### R ENAL #### [facility] [address] [place] [address] Glucose [Mass/Vol] 112 mg/dL High 74 - 99 [facility] Comment on above: Performed By: #### R ENAL #### [facility] [address] [place] [address] HCO3 (Bld) [Moles/Vol] 21 mmol/L Normal 21 - 32 [facility] Comment on above: Performed By: #### R ENAL #### [facility] [address] [place] [address] Phosphate [Mass/Vol] 4.3 mg/dL Normal 2.5 - 4.9 [facility] Comment on above: Result Comment: The performance characteristics of phosphorus testing in heparinized plasma have been validated by the individual laboratory site where testing is performed. Testing on heparinized plasma is not approved by the FDA; however, such approval is not necessary. Performed By: #### R ENAL #### [facility] [address] [place] [address] Potassium [Moles/Vol] 3.5 mmol/L Normal 3.5 - 5.3 [facility] Comment on above: Performed By: #### R ENAL #### [facility] [address] [place] [address] Sodium [Moles/Vol] 139 mmol/L Normal 136 - 145 [facility] Comment on above: Performed By: #### R ENAL #### [facility] [address] [place] [address] Urea nitrogen [Mass/Vol] 14 mg/dL Normal 6 - 23 [facility] Comment on above: Performed By: #### R ENAL #### [facility] [address] [place] [address] Radiologyon 03-19-2022 XR Chest Single view Normal [facility] y [address] DO Work Phone: Renal Function Panelon 03-19 Albumin BCP dye [Mass/Vol] 3.8 g/dL 3.4 - 5.0 [facility] y 250 DO Work Phone: Anion gap [Moles/Vol] 17 mmol/L 10 - 20 [facility] y 250 DO Work Phone: Calcium [Mass/Vol] 8.5 mg/dL below low threshold 8.6 - 10.6 [facility] y 250 DO Work Phone: Chloride [Moles/Vol] 105 mmol/L 98 - 107 [facility] y 250 DO Work Phone: CO2 [Moles/Vol] 21 mmol/L 21 - 32 [facility] y 250 DO Work Phone: Creatinine [Mass/Vol] 0.76 mg/dL See Below [facility] Work Phone: Comment on above: Reference Range: 0.5 0 - 1.05 Glucose [Mass/Vol] 112 mg/dL above high threshold 74 - 99 [facility] Work Phone: Phosphate [Mass/Vol] 4.3 mg/dL 2.5 - 4.9 [facility] Work Phone: Comment on above: The performance missy acteristics of phosphorus testing in heparinized plasma have been validated by the individual laboratory site where testing is performed. Testing on heparinized plasma is not approved by the FDA; however, such approval is not necessary. Potassium [Moles/Vol] 3.5 mmol/L 3.5 - 5.3 [place] [address] DO Work Phone: Sodium [Moles/Vol] 139 mmol/L 136 - 145 [facility] Work Phone: Urea nitrogen [Mass/Vol] 14 mg/dL 6 - 23 [place] [address] DO Work Phone: Renal Function Panel 89 {mL/min/1.73m2} >90 [place] [address] DO Work Phone: Comment on above: CALCULATIONS OF JT MATED GFR ARE PERFORMED USING THE 2020 CKD-EPI STUDY REFIT EQUATION WITHOUT THE RACE VARIABLE FOR THE IDMS-TRACEABLE CREATININE METHODS.https://jasn.asnjournals.org/content//A SN.8499029364 TAVRon 03-19-2022 TAVR [facility] ([facility] Accessibility Lift Technician, [address] [place] [address] Cardiovascular Catheterization Report Patient Name: VIRGILIO Conroy Performing Physician: [id number] Roxann JOHNSON Study Date: 03/19/2022 Verifying Physician: [id number] Roxann Winchester MD MRN/PID: [id number] Fisherman Helper/Co-scrub: Accession/Order#: [id number] Fellow: [id number] Sharon Martin MD Date of : 1960 Fellow: [id number] Wiliam Jeffries MD Gender: F Referring Physician: JOSE JORDAN Admit Date: Referring Physician: zohra Surgeon: Beena FLORES Referring Physician: [id number] Josep Perdomo MD Study: TAVR Additional Study: [...] deployment of 2 Proglides. A 14 F [place] Sheath was inserted and sutured. The left femoral artery was accessed percutaneously and a 6 Maltese contralateral sheath was placed. A 7 Maltese temporary pacemaker was inserted through the right [...] + -+ + Eugenie Haynes RT PROC NEWSPAPER REPORTER 1 + -+ + Negra Cruz RT PROC NEWSPAPER REPORTER 2 + -+ + Wiliam Jeffries MD [...] Used: + (more content not included)... Normal [facility] TH CHEST 1 VIEWon 03-19-2022 TH CHEST 1 VIEW Patient Name: VIRGILIO JOHNSON STUDY: CHEST 1 VIEW; 03/19/2022 4:31 pm INDICATION: s/p TAVR . COMPARISON: CT 03/08/2022. ACCESSION NUMBER(S): [id number] ORDERING CLINICIAN: ABDIAZIZ NASH FINDINGS: AP radiograph [...] as stated. This study was interpreted at [facility], [place], [place]. Electronically signed by: Julienne COOK MD Normal [facility] US THYROIDon 03-18-2022 US THYROID EXAMINATION: US [...] follow-up ultrasound evaluation in 3-4 months. The [employer] [employer] TI-RADS committee's white paper recommendations for thyroid lesions classified as TR5 (highly suspicious) are listed below: > 0.5 cm. Annual ultrasound follow-up for up to 5 years. > 1.0 cm. FNA. J. Am Laura Radiol 2017;14:587-595. Electronically authenticated by: YULIA AGUILA Date: 2022-03-18 10:01 Normal [facility] CBC AUTO DIFFon 03-12-2022 BASO # 0.0 103/ul Normal 0.0-0.1 [facility] Comment on above: Performed By: #### C BC #### [facility] [address] [place] [address] Dr. Luh Brown Basophils/100 WBC (Bld) 0.3 % Normal 0.2-2.0 [facility] Comment on above: Performed By: #### C BC #### [facility] [address] [address] [address] Luh Brown EO # 0.1 103/ul Normal 0.0-0.7 [facility] Comment on above: Performed By: #### C BC #### [facility] [address] [place] [address] Dr. Luh Brown Eosinophils/100 WBC (Bld) 2.1 % Normal 0.9-7.0 [facility] Comment on above: Performed By: #### C BC #### [facility] [address] [address] [address] Luh Brown Erythrocyte distribution width (RBC) [Ratio] 13.3 % Normal 11.0-15.0 [facility] Comment on above: Performed By: #### C BC #### [facility] [address] [place] [address] Dr. Luh Brown Hematocrit (Bld) [Volume fraction] 34.3 % Critically low 36.0-48.0 [facility] Comment on above: Performed By: #### C BC #### [facility] [address] [place] [address] Dr. Luh Brown Hemoglobin (Bld) [Mass/Vol] 11.3 g/dL Critically low 12.0-16.0 [facility] Comment on above: Performed By: #### C BC #### [facility] [address] [place] [address] Dr. Luh Brown IG # 0.03 10e3/ul Normal 0.00-0.03 [facility] Comment on above: Performed By: #### C BC #### [facility] [address] [place] [address] Dr. Luh Brown IG % 0.5 % Normal 0.0-0.5 [facility] Comment on above: Performed By: #### C BC #### [facility] [address] [place] [address] Dr. Luh Brown LYMPH # 1.6 103/ul Normal 1.2-3.8 [facility] Comment on above: Performed By: #### C BC #### [facility] [address] [place] [address] Dr. Luh Brown Lymphocytes/100 WBC (Bld) 24.0 % Normal 20.5-60.0 [facility] Comment on above: Performed By: #### C BC #### [facility] [address] [place] [address] Dr. Luh Brown MANUAL DIFF REQ NO Normal [facility] Comment on above: Performed By: #### C BC #### [facility] [address] [place] [address] Dr. Luh Brown MCH (RBC) [Entitic mass] 29.3 pg Normal 26.7-34.0 [facility] Comment on above: Performed By: #### C BC #### [facility] [address] [place] [address] Dr. Luh Brown MCHC (RBC) [Mass/Vol] 32.9 g/dL Normal 29.9-35.2 [facility] Comment on above: Performed By: #### C BC #### [facility] [id number] Luh Brown MCV (RBC) [Entitic vol] 88.9 fL Normal 81.0-99.0 [facility] Comment on above: Performed By: #### C BC #### [facility] [address] [address] [address] Luh Brown MONO # 0.6 103/ul Normal 0.3-0.8 [facility] Comment on above: Performed By: #### C BC #### [facility] [address] [address] [address] Luh Brown Monocytes/100 WBC (Bld) 9.4 % Normal 1.7-12.0 [facility] Comment on above: Performed By: #### C BC #### [facility] [address] [place] [address] Dr. Luh Brown NEUT # 4.2 103/ul Normal 1.4-6.5 [facility] Comment on above: Performed By: #### C BC #### [facility] [address] [place] [address] Dr. Luh Brown Neutrophils/100 WBC (Bld) 63.7 % Normal 43.0-75.0 [facility] Comment on above: Performed By: #### C BC #### [facility] [address] [place] [address] Dr. Luh Brown Platelet mean volume (Bld) [Entitic vol] 8.9 fL Critically low 9.5-13.5 [facility] Comment on above: Performed By: #### C BC #### [facility] [address] [place] [address] Dr. Luh Brown PLT 247 103/ul Normal 150-450 [facility] Comment on above: Performed By: #### C BC #### [facility] [address] [place] [address] Dr. Luh Brown RBC 3.86 106/ul Critically low 4.20-5.40 [facility] Comment on above: Performed By: #### C BC #### [facility] [address] [place] [address] Dr. Luh Brown WBC 6.6 103/ul Normal 4.0-11.0 [facility] Comment on above: Performed By: #### C BC #### [facility] [address] [address] [address] Luh Brown PROTIMEon 03-12-2022 INR Coag (PPP) [Relative time] 0.94 {INR} Normal [facility] Comment on above: Performed By: #### P T #### [facility] [address] [address] [address] Luh Brown INR GUIDELINES SEE BELOW Normal [facility] Comment on above: Result Comment: DELISA RED INR: 2.0 - 3.0 CONDITIONS NOT LISTED BELOW 2.5 - 3.5 FOR PROSTHETIC HEART VALVE REPLACEMENT 2.5 - 3.5 RECURRENT THROMBOSIS Performed By: #### P T #### [facility] [address] [address] [address] Luh Brown PT Coag (PPP) [Time] 10.2 s Normal 9.0-11.6 [facility] Comment on above: Performed By: #### P T #### [facility] [address] [address] [address] TAVR Full Contrast CH/ABD /Pelvison 03-08-2022 CT TAVR Full Contrast CH/ABD/Pelvis FINAL REPORT Interpreted by: RUPERTO CROWELL MD and SOULEYMANE DESIR, , DO 03/08/22 14:35 Patient Name: VIRGILIO JOHNSON STUDY: CT TAVR FULL CONTRAST CHEST/ABD/PELVIS; 03/08/2022 12:30 pm INDICATION: KELLEY I35.0: Aortic stenosis. Same scott Normal [place] [address] [place] Work Phone: No Panel Informationon 03-08 [email or web address]& Date=08-03-2022&Time=10% 3a18%3a34%3a00&TestType= ECG&Site=1&OutputType=PD F&Ext=PDF [facility] [address] [place] Work Phone: Normal sinus rhythm [facility] [address] [place] Work Phone: Abnormal [facility] [address] [place] Work Phone: [phone] [facility] 205 [place] Work Phone: [phone] [facility] 205 [place] Work Phone: [phone] [facility] 205 [place] Work Phone: [phone] [facility] 205 [place] Work Phone: [phone] [facility] 205 [place] Work Phone: 12 1 [facility] 205 [place] Work Phone: [phone] [facility] 205 [place] Work Phone: 2 1 [facility] 205 [place] Work Phone: 60 1 [facility] 205 [place] Work Phone: [phone] [facility] 205 [place] Work Phone: [phone] [facility] 205 [place] Work Phone: 96 1 [facility] 205 [place] Work Phone: [phone] [facility] [address] [place] Work Phone: [phone] [facility] [address] [place] Work Phone: Tobacco Screening.on 022 Fall risk assessment a) No falls within the last year [facility] [place] [address] [place] Work Phone: Tobacco use status [facility] b) No [facility] [address] [place] [place] Work Phone: Creatinine and Glomerular fi ltration rate.predicted panel (S/P/Bld)Ordered By: Jose Jordan on 03-02-2022 Creatinine [Mass/Vol] 0.97 mg/dL 0.44-1.03 [facility] Estimated glomerular filtrat ion rate (GFR) non- AmericanOrdered By: Jose Jordan on 03-02-2022 GFR/1.73 sq M.predicted among non-blacks MDRD (S/P/Bld) [Vol rate/Area] 59 mL/Min [facility] No Panel InformationOrdered By: Jose Jordan on 03-02-2022 Estimated GFR () > 60 mL/Min [facility] Comment on above: GFR estimated refere nce range: According to KDOQI guidelines, <60 ml/min/1.73m2 is sufficient to diagnose a patient with chronic kidney disease. Pharmacy Creatinine Clearance (Chem N/A [facility] Serum or plasma calcium jeane urement (mass/volume)Ordered By: Jose Jordan on 03-02-2022 Calcium [Mass/Vol] 9.2 mg/dL 8.2-10.2 [facility] Serum or plasma chloride thomas surement (moles/volume)Ordered By: Jose Jordan on 03-02-2022 Chloride [Moles/Vol] 100 mmol/L 95-114 [facility] Serum or plasma glucose jeane urement (mass/volume)Ordered By: Jose Jordan on 03-02-2022 Glucose [Mass/Vol] 114 mg/dL 70-100 [facility] Comment on above: ADA recommended refe rence [...] on 03-02-2022 Potassium [Moles/Vol] 4.5 mmol/L 3.5-5.1 [facility] Serum or plasma sodium measu rement (moles/volume)Ordered By: Jose Jordan on 03-02-2022 Sodium [Moles/Vol] 136 mmol/L 136-146 [facility] Serum or plasma total carbon dioxide measurement (moles/volume)Ordered By: Jose Jordan on 03-02-2022 CO2 [Moles/Vol] 26.7 mmol/L 22.0-30.0 [facility] Serum or plasma urea nitroge n measurement (mass/volume)Ordered By: Joes Jordan on 03-02-2022 Urea nitrogen [Mass/Vol] 22 mg/dL 9-23 [facility] SARS-CoV-2 (COVID-19) RNA NA A+probe Ql (Resp)on 02-22-2022 SARS-CoV-2 (COVID-19) RNA ISIDORO+probe Ql (Unsp spec) Positive [employer] Other No Panel Informationon 02-02 [facility] y [address] DO Work Phone: Activated partial thrombopla stin time (aPTT) in platelet poor plasma by coagulation aOrdered By: Josep Perdomo on 01-29-2022 aPTT Coag (PPP) [Time] 29.5 s 25.1-36.5 [facility] Basophils Auto (Bld) [#/Vol] Ordered By: Josep Perdomo on 01-29-2022 Basophils (Bld) [#/Vol] 0.0 10*3/uL 0.0-0.2 [facility] Basophils/100 WBC Auto (Bld) Ordered By: Josep Perdomo on 01-29-2022 Basophils/100 WBC (Bld) 0.3 % . [facility] Blood hemoglobin measurement (mass/volume)Ordered By: Josep Perdomo on 01-29-2022 Hemoglobin (Bld) [Mass/Vol] 11.5 g/dL 11.8-15.4 [facility] Blood leukocytes automated c ount (number/volume)Ordered By: Josep Perdomo on 01-29-2022 WBC (Bld) [#/Vol] 6.6 10*3/uL 4.5-11.0 [facility] COVID-19 SOFIAOrdered By: Ramses Perdomo on 01-29-2022 SARS-CoV+SARS-CoV-2 (COVID-19) Ag IA.rapid Ql (Resp) Negative Negative [facility] Comment on above: This is a duplicate Kimberlee SARS Antigen (WILBERT) result to be used for statistical tracking purpose only. Cholesterol [Mass/volume] in Serum or PlasmaOrdered By: Josep Perdomo on 01-29-2022 Cholesterol [Mass/Vol] 163 mg/dL 140-200 [facility] Comment on above: Chol less than 200 m g/dl low risk Chol 201-239 mg/dl borderline risk Chol 240 mg/dl and greater high risk Cholesterol in LDL Calc [Mas s/Vol]Ordered By: Josep Perdomo on 01-29-2022 Cholesterol in LDL [Mass/Vol] 84 mg/dL 0-100 [facility] Comment on above: LDL ATP III CLASSIFI CATION LDL less than 100 mg/dL Optimal LDL 100-129 mg/dL Near or above optimal LDL 130-159 mg/dL Borderline high LDL 160-189 mg/dL High LDL greater than 189 mg/dL Very high Cholesterol in VLDL Calc [Ma ss/Vol]Ordered By: Josep Perdomo on 01-29-2022 Cholesterol in VLDL [Mass/Vol] 18 mg/dL [facility] Creatinine and Glomerular fi ltration rate.predicted panel (S/P/Bld)Ordered By: Josep Perdomo on 01-29-2022 Creatinine [Mass/Vol] 1.03 mg/dL 0.44-1.03 [facility] Eosinophils Auto (Bld) [#/Vo l]Ordered By: Josep Perdomo on 01-29-2022 Eosinophils (Bld) [#/Vol] 0.2 10*3/uL 0.0-0.45 [facility] Eosinophils/100 WBC Auto (Bl d)Ordered By: Josep Perdomo on 01-29-2022 Eosinophils/100 WBC (Bld) 2.4 % . [facility] Erythrocyte distribution wid th Auto (RBC) [Ratio]Ordered By: Josep Perdomo on 01-29-2022 Erythrocyte distribution width (RBC) [Ratio] 13.8 % 11.9-15.3 [facility] Estimated glomerular filtrat ion rate (GFR) non- AmericanOrdered By: Josep Perdomo on 01-29-2022 GFR/1.73 sq M.predicted among non-blacks MDRD (S/P/Bld) [Vol rate/Area] 55 mL/Min [facility] Hematocrit Auto (Bld) [Volum e fraction]Ordered By: Josep Perdomo on 01-29-2022 Hematocrit (Bld) [Volume fraction] 33.8 % 34.0-46.4 [facility] Laboratory - Chemistry and C hemistry - challengeon 01-29-2022 Cholesterol [Mass/Vol] 163\S\163 Normal 140-200 [facility] [address] DO Work Phone: Comment on above: Chol less than 200 m g/dl low risk Chol 201-239 mg/dl borderline risk Chol 240 mg/dl and greater high risk Cholesterol in LDL [Mass/Vol] 84\S\84 Normal 0-100 [facility] DO Work Phone: Comment on above: LDL ATP III CLASSIFI CATION LDL less than 100 mg/dL Optimal LDL 100-129 mg/dL Near or above optimal LDL 130-159 mg/dL Borderline high LDL 160-189 mg/dL High LDL greater than 189 mg/dL Very high Laboratory - CoagulationOrde red By: Josep Perdomo on 01-29-2022 PT Coag (PPP) [Time] 10.3 s 9.0-12.9 [facility] Laboratory - Hematology and Cell countsOrdered By: Josep Perdomo on 01-29-2022 Nucleated RBC/100 WBC (Bld) [Ratio] 0.0 % 0-0.5 [facility] - Microbiology an d Antimicrobial susceptibilityon 01-29-2022 SARS-CoV-2 (COVID-19) RNA ISIDORO+probe Ql (Unsp spec) [facility] 250 DO Work Phone: Lymphocytes Auto (Bld) [#/Vo l]Ordered By: Josep Perdomo on 01-29-2022 Lymphocytes (Bld) [#/Vol] 1.8 10*3/uL 1.00-4.8 [facility] Lymphocytes/100 WBC Auto (Bl d)Ordered By: Josep Perdomo on 01-29-2022 Lymphocytes/100 WBC (Bld) 27.5 % . [facility] MCH Auto (RBC) [Entitic mass ]Ordered By: Josep Perdomo on 01-29-2022 MCH (RBC) [Entitic mass] 29.8 pg 24.7-34.3 [facility] MCHC Auto (RBC) [Mass/Vol]Or dered By: Josep Perdomo on 01-29-2022 MCHC (RBC) [Mass/Vol] 33.9 g/dL 32.0-35.0 [facility] MCV Auto (RBC) [Entitic vol] Ordered By: Josep Perdomo on 01-29-2022 MCV (RBC) [Entitic vol] 88.0 fL 80-100 [facility] Monocytes Auto (Bld) [#/Vol] Ordered By: Josep Perdmoo on 01-29-2022 Monocytes (Bld) [#/Vol] 0.5 10*3/uL 0.0-0.8 [facility] Monocytes/100 WBC Auto (Bld) Ordered By: Josep Perdomo on 01-29-2022 Monocytes/100 WBC (Bld) 8.2 % . [facility] Neutrophils Auto (Bld) [#/Vo l]Ordered By: Josep Perdomo on 01-29-2022 Neutrophils (Bld) [#/Vol] 4.1 10*3/uL 1.8-7.7 [facility] Neutrophils/100 WBC Auto (Bl d)Ordered By: Josep Perdomo on 01-29-2022 Neutrophils/100 WBC (Bld) 61.6 % . [facility] No Panel Informationon 01-29 Negative Normal Negative [facility] [address] DO Work Phone: [phone] Comment on above: This is a duplicate Kimberlee SARS Antigen (WILBERT) result to be used for statistical tracking purpose only.PERFORMED BY:[facility] [place], [place] [phone] MEDICAL DIRECTORDORA ALLISON M.D. 61.6\S\61.6 Normal . [facility] [address] DO Work Phone: [phone] 7.6\S\7.6 Normal 6.3-10.7 [facility] [address] DO Work Phone: [phone] 281\S\281 Normal 150-450 [facility] [address] DO Work Phone: [phone] 13.8\S\13.8 Normal 11.9-15.3 -[facility] 250 DO Work Phone: [phone] 33.9\S\33.9 Normal 32.0-35.0 [facility] [address] DO Work Phone: [phone] 29.8\S\29.8 Normal 24.7-34.3 [facility] 250 DO Work Phone: [phone] 4.1\S\4.1 Normal 1.8-7.7 -[facility] [address] DO Work Phone: [phone] 0.0\S\0.0 Normal 0.0-0.2 -[facility] [address] DO Work Phone: [phone] Comment on above: PERFORMED BY:[facility] [place] [phone] MEDICAL DIRECTORDORA ALLISON M.D. 0.3\S\0.3 Normal . [facility] [address] DO Work Phone: 2.4\S\2.4 Normal . [facility] [address] DO Work Phone: 8.2\S\8.2 Normal . [facility] [address] DO Work Phone: 27.5\S\27.5 Normal . [facility] [address] DO Work Phone: [phone] 0.2\S\0.2 Normal 0.0-0.45 [facility] [address] DO Work Phone: 0.5\S\0.5 Normal 0.0-0.8 [facility] [address] DO Work Phone: 1.8\S\1.8 Normal 1.00-4.8 [facility] [facility] DO Work Phone: 88.0\S\88.0 Normal 80-100 [facility] 250 DO Work Phone: 33.8\S\33.8 below low threshold 34.0-46.4 [facility] 250 DO Work Phone: 11.5\S\11.5 below low threshold 11.8-15.4 [facility] 250 DO Work Phone: 3.84\S\3.84 Normal 3.60-5.00 [facility] 250 DO Work Phone: 6.6\S\6.6 Normal 3.8-11.6 [facility] 250 DO Work Phone: 29.5\S\29.5 Normal 25.1-36.5 [facility] 250 DO Work Phone: Comment on above: PERFORMED BY:[facility] [place] [phone] MEDICAL DIRECTORDORA ALLISON M.D. 0.9\S\0.9 Normal [facility] 250 DO Work Phone: Comment [...] valves: 3 - 4.5 10.3\S\10.3 Normal 9.0-12.9 [facility] franz 250 DO Work Phone: 21.7\S\21.7 below low threshold 22.0-30.0 [facility] 250 DO Work Phone: [phone] 105\S\105 Normal 95-114 [facility] franz 250 DO Work Phone: 3.7\S\3.7 Normal 3.5-5.1 [facility] 250 DO Work Phone: [phone] 137\S\137 Normal 136-146 [facility] franz 250 DO Work Phone: [phone] 27\S\27 above high threshold 9-23 [facility] 250 DO Work Phone: > 60 Normal [facility] 250 DO Work Phone: Comment on above: GFR estimated refere nce range: According to KDOQI guidelines, <60 ml/min/1.73m2 is sufficient to diagnose a patient with chronic kidney disease. 55\S\55 Normal [facility] 250 DO Work Phone: 1.03\S\1.03 Normal 0.44-1.03 [facility] 250 DO Work Phone: 2.7\S\2.7 Normal <5.0 [facility] 250 DO Work Phone: Comment on above: PERFORMED BY:[facility] [place]OSPacoKIK[place]WE[place], [place] [phone] MEDICAL DIRECTORDORA ALLISON M.D. 18\S\18 Normal [facility] 250 DO Work Phone: 92\S\92 Normal 35-149 [facility] y 250 DO Work Phone: Comment on above: TRIG ATP III CLASSIF ICATION TRIG less than 150 mg/dL Normal TRIG 150-199 mg/dL Borderline high TRIG 200-500 mg/dL High TRIG greater than 500 mg/dL Very high Standard traceable to the Center for Disease Conrtrol and Prevention (CDC) test method. 61\S\61 [facility] Work [facility]: Comment on above: HDL CHOL ATP-III CLA SSIFICATION Cardiovascular Risk HDL > or equal to 60 mg/dL LOW HDL < 40 mg/dL HIGH No Panel InformationOrdered By: Josep Perdomo on 01-29-2022 Estimated GFR () > 60 mL/Min [facility] Comment on above: GFR estimated refere nce range: According to KDOQI guidelines, <60 ml/min/1.73m2 is sufficient to diagnose a patient with chronic kidney disease. Pharmacy Creatinine Clearance (Chem N/A [facility] SARS Antigen (LFIA) [facility] Platelet mean volume Auto (B ld) [Entitic vol]Ordered By: Josep Perdomo on 01-29-2022 Platelet mean volume (Bld) [Entitic vol] 7.6 fL 6.3-10.7 [facility] Platelet poor plasma interna tional normalized ratio (INR) by coagulation assay (relatOrdered By: Josep Perdomo on 01-29-2022 INR Coag (PPP) [Relative time] 0.9 {INR} [facility] Comment on above: INR Therapeutic Rang e [...] 01-29-2022 Platelets (Bld) [#/Vol] 281 10*3/uL 150-450 [facility] RBC Auto (Bld) [#/Vol]Ordere d By: Josep Perdomo on 01-29-2022 RBC (Bld) [#/Vol] 3.84 10*6/uL 3.60-5.00 [facility] Serum or plasma chloride thomas surement (moles/volume)Ordered By: Josep Perdomo on 01-29-2022 Chloride [Moles/Vol] 105 mmol/L 95-114 [facility] Serum or plasma high density lipoprotein (HDL) cholesterol measurementOrdered By: Josep Perdomo on 01-29-2022 Cholesterol in HDL [Mass/Vol] 61 mg/dL 35-85 [facility] Comment on above: HDL CHOL ATP-III CLA SSIFICATION Cardiovascular Risk HDL > or equal to 60 mg/dL LOW HDL < 40 mg/dL HIGH Serum or plasma potassium me asurement (moles/volume)Ordered By: Josep Perdomo on 01-29-2022 Potassium [Moles/Vol] 3.7 mmol/L 3.5-5.1 [facility] Serum or plasma sodium measu rement (moles/volume)Ordered By: Josep Perdomo on 01-29-2022 Sodium [Moles/Vol] 137 mmol/L 136-146 [facility] Serum or plasma total carbon dioxide measurement (moles/volume)Ordered By: Josep Perdomo on 01-29-2022 CO2 [Moles/Vol] 21.7 mmol/L 22.0-30.0 [facility] Serum or plasma total choles terol/high density lipoprotein (HDL) cholesterol mass ratOrdered By: Josep Perdomo on 01-29-2022 Cholesterol.total/Chol esterol in HDL [Mass ratio] 2.7 {ratio} <5.0 [facility] Serum or plasma urea nitroge n measurement (mass/volume)Ordered By: Josep Perdomo on 01-29-2022 Urea nitrogen [Mass/Vol] 27 mg/dL 9-23 [facility] Triglyceride [Mass/volume] i n Serum or PlasmaOrdered By: Josep Perdomo on 01-29-2022 Triglyceride [Mass/Vol] 92 mg/dL 35-149 [facility] Comment on above: TRIG ATP III CLASSIF ICATION TRIG less than 150 mg/dL Normal TRIG 150-199 mg/dL Borderline high TRIG 200-500 mg/dL High TRIG greater than 500 mg/dL Very high Standard traceable to the Center for Disease Conrtrol and Prevention (CDC) test method. Tobacco Screening.on 022 Adult depression screening assessment No [facility] 250 DO Work Phone: Tobacco use status [facility] b) No [facility] 250 DO Work Phone: XR Knee AP and Lateral and M erchantson 12-09-2021 IMPRESSION: Postoperative and degenerative findings as described. No acute osseous findings. Design Agent: TRINITY Transcribe Date/Time: Dec 09 2021 11:37A [...] given projections. [id number] E_DIVISION OF RADIOLOGY Provider, [facility] - 12/09/2021 * * *Final Report* [...] findings as described. No acute osseous findings. Design Agent: PSCB Transcribe Date/Time: Dec 09 2021 11:37A Dictated by : EVANGELISTA LIMON MD This examination was interpreted and the report reviewed and electronically signed by: EVANGELISTA LIMON MD on Dec 09 2021 11:39AM EST [facility] Radiology Study observation (narrative) [facility] XR Knee AP and Lateral and M erchantsOrdered By: Ccf Provider on 12-09-2021 [facility] COVID Quick Testingon 2021 Result Negative [employer] Other XR Knee - bilateral 3 Viewso n 08-03-2021 IMPRESSION: 1. Unremarkable left total knee arthroplasty. 2. Right knee lateral compartment arthroplasty and severe degenerative arthritis. Design Agent: PSCBasim Transcribe Date/Time: Aug 03 2021 9:42A [...] No gross effusion. DIVISION OF RADIOLOGY Provider, [facility] - 08/03/2021 * * *Final Report* [...] lateral compartment arthroplasty and severe degenerative arthritis. Design Agent: TRINITY Transcribe Date/Time: Aug 03 2021 9:42A Dictated by : KEMAR WONG MD This examination was interpreted and the report reviewed and electronically signed by: KEMAR WONG MD on Aug 03 2021 9:45AM EST [facility] Radiology Study observation (narrative) [facility] XR Knee - bilateral 3 ViewsO rdered By: Ccf Provider on 08-03-2021 [facility] XR Knee - bilateral 3 Viewso n 03-27-2021 IMPRESSION: POSTOPERATIVE AND DEGENERATIVE FINDINGS, CONSISTENT WITH THE PRIOR. Design Agent: [facility] Transcribe Date/Time: Mar 27 2021 11:18A [...] dislocation. DIVISION OF RADIOLOGY Provider, Agueda Mayer [facility] - 03/27/2021 * * *Final Report* * [...] AND DEGENERATIVE FINDINGS, CONSISTENT WITH THE PRIOR. Design Agent: [facility] Transcribe Date/Time: Mar 27 2021 11:18A Dictated by : GINETTE ORTEGA MD This examination was interpreted and the report reviewed and electronically signed by: GINETTE ORTEGA MD on Mar 27 2021 11:20AM EST [facility] Radiology Study observation (narrative) [facility] XR Knee - bilateral 3 ViewsO rdered By: Ccf Provider on 03-27-2021 [facility] XR Knee - left 4 Viewson IMPRESSION: Left total knee arthroplasty in place with no evidence of complications. Design Agent: [facility] Transcribe Date/Time: Feb 02 2021 10:37A [...] other significant abnormality. DIVISION OF RADIOLOGY [facility] * * *Final Report* [...] in place with no evidence of complications. Design Agent: TRINITY Transcribe Date/Time: Feb 02 2021 10:37A Dictated by : ELLEN HANEY MD This examination was interpreted and the report reviewed and electronically signed by: ELLEN HANEY MD on Feb 02 2021 10:38AM EST [facility] Radiology Study observation (narrative) [facility] XR Knee - left 4 ViewsOrdere d By: Ccf Provider on 02-02-2021 [facility] XR Knee AP and Lateral and Kathryn thakur 02-27-2020 IMPRESSION: STABLE POSTSURGICAL CHANGE OF TOTAL KNEE ARTHROPLASTY Design Agent: [facility] Transcribe Date/Time: Feb 27 2020 10:45A [...] gas has resolved. DIVISION OF RADIOLOGY Provider, [facility] - 02/27/2020 * * *Final Report* [...] STABLE POSTSURGICAL CHANGE OF TOTAL KNEE ARTHROPLASTY Design Agent: [facility] Transcribe Date/Time: Feb 27 2020 10:45A Dictated by : ANN AU MD This examination was interpreted and the report reviewed and electronically signed by: ANN AU MD on Feb 27 2020 10:46AM EST [facility] Radiology Study observation (narrative) [facility] XR Knee AP and Lateral and M erchantsOrdered By: Ccf Provider on 02-27-2020 [facility] Vital Signs Date Time Vital Sign Value Performing Clinician Facility 03-15-2025 09:0400 Body height 175.3 cm Josep Perdomo MD Work Phone: [facility] 03-15-2025 09:0400 Body mass index (BMI) [Ratio] 34.85 kg/m2 Josep Perdomo MD Work Phone: [facility] 03-15-2025 09:19-0400 Body weight 107.05 kg Josep Perdomo MD Work Phone: [facility] 03-15-2025 09:19-0400 Diastolic blood pressure 58 mm[Hg] Josep Perdomo MD Work Phone: [facility] 03-15-2025 09:19-0400 Heart rate 60 /min Josep Perdomo MD Work Phone: [facility] 03-15-2025 09:19-0400 Systolic blood pressure 132 mm[Hg] Josep Perdomo MD Work Phone: [facility] 02-04-2025 08:44-0400 Body height 175.[address] 02-04-2025 08:44-0400 Body mass index (BMI) [Ratio] 33.52 kg/m2 [address] 02-04-2025 08:44-0400 Body weight 102.[address] 02-04-2025 08:44-0400 Diastolic blood pressure 68 mm[Hg] [address] 02-04-2025 08:44-0400 Systolic blood pressure 142 mm[Hg] [address] 01-31-2025 08:58-0400 Body height 172.7 cm Guerline Lause [employer] Work Phone: [facility] 01-31-2025 08:58-0400 Body mass index (BMI) [Ratio] 36.19 kg/m2 Guerline Lause [employer] Work Phone: [facility] 01-31-2025 08:58-0400 Body temperature 97.3 [degF] Guerline Lause [employer] Work Phone: [facility] 01-31-2025 08:58-0400 Body weight 107.96 kg Guerline Lause [employer] Work Phone: [facility] 01-31-2025 08:58-0400 Diastolic blood pressure 82 mm[Hg] Guerline Lause [employer] Work Phone: [facility] 01-31-2025 08:58-0400 Heart rate 74 /min Guerline Lause [employer] Work Phone: [facility] 01-31-2025 08:58-0400 Respiratory rate 18 /min Guerline Lause [employer] Work Phone: [facility] 01-31-2025 08:58-0400 SaO2% (BldA) [Mass fraction] 98 % Guerline Lause [employer] Work Phone: [facility] 01-31-2025 08:58-0400 Systolic blood pressure 162 mm[Hg] Guerline Lause [employer] Work Phone: [facility] 11-16-2024 08:08-0400 Body height 172.7 cm Valentina Gregg MD Work Phone: [facility] 11-16-2024 08:08-0400 Body mass index (BMI) [Ratio] 34.52 kg/m2 Valentina Gregg MD Work Phone: [facility] 11-16-2024 08:08-0400 Body weight 102.97 kg Valentina Gregg MD Work Phone: [facility] 09-17-2024 08:03-0500 Body height 172.7 cm Noemi Warchol [employer] Work Phone: [facility] 09-17-2024 08:03-0500 Body mass index (BMI) [Ratio] 34.52 kg/m2 Noemi Warchol [employer] Work Phone: [facility] 09-17-2024 08:03-0500 Body temperature 97.11 [degF] Noemi Warchol [employer] Work Phone: [facility] 09-17-2024 08:03-0500 Body weight 102.97 kg Noemi Warchol [employer] Work Phone: [facility] 09-17-2024 08:03-0500 Diastolic blood pressure 60 mm[Hg] Noemi Warchol [employer] Work Phone: [facility] 09-17-2024 08:03-0500 Heart rate 76 /min Noemi Warchol [employer] Work Phone: [facility] 09-17-2024 08:03-0500 Respiratory rate 20 /min Noemi Warchol [employer] Work Phone: [facility] 09-17-2024 08:03-0500 SaO2% (BldA) [Mass fraction] 97 % Noemi Warchol [employer] Work Phone: [facility] 09-17-2024 08:03-0500 Systolic blood pressure 126 mm[Hg] Noemi Warchol [employer] Work Phone: [facility] 08-03-2024 08:55-0500 Body height 172.7 cm Noemi Warchol [employer] Work Phone: [facility] 08-03-2024 08:55-0500 Body mass index (BMI) [Ratio] 34.82 kg/m2 Noemi Warchol [employer] Work Phone: [facility] 08-03-2024 08:55-0500 Body weight 103.87 kg Noemi Warchol [employer] Work Phone: [facility] 08-03-2024 08:55-0500 Diastolic blood pressure 70 mm[Hg] Noemi Warchol [employer] Work Phone: [facility] 08-03-2024 08:55-0500 Heart rate 65 /min Noemi Warchol [employer] Work Phone: [facility] 08-03-2024 08:55-0500 Respiratory rate 16 /min Noemi Warchol [employer] Work Phone: [facility] 08-03-2024 08:55-0500 SaO2% (BldA) [Mass fraction] 97 % Noemi Warchol [employer] Work Phone: [facility] 08-03-2024 08:55-0500 Systolic blood pressure 122 mm[Hg] Noemi Warchol [employer] Work Phone: [facility] 07-07-2024 08:57-0500 Body height 172.7 cm Valentina Gregg MD Work Phone: [facility] 07-07-2024 08:57-0500 Body mass index (BMI) [Ratio] 34.06 kg/m2 Vaelntina Gregg MD Work Phone: [facility] 07-07-2024 08:57-0500 Body weight 101.61 kg Valentina Gregg MD Work Phone: [facility] 07-07-2024 08:57-0500 Diastolic blood pressure 80 mm[Hg] Valentina Gregg MD Work Phone: [facility] 07-07-2024 08:57-0500 Systolic blood pressure 160 mm[Hg] Valentina Gregg MD Work Phone: [facility] 06-20-2024 08:26-0500 Body height 172.7 cm Bin Dolce DPM FACFAS Work Phone: [facility] 06-20-2024 08:26-0500 Body mass index (BMI) [Ratio] 34.21 kg/m2 Bin Dolce DPM FAC[employer] Work Phone: [facility] 06-20-2024 08:26-0500 Body weight 102.06 kg Bin Dolce DPM FACFAS Work Phone: [facility] 06-20-2024 08:26-0500 Diastolic blood pressure 71 mm[Hg] Bin Dolce DPM FACFAS Work Phone: [facility] 06-20-2024 08:26-0500 Heart rate 68 /min Bin Dolce DPM FACFAS Work Phone: [facility] 06-20-2024 08:26-0500 Systolic blood pressure 128 mm[Hg] Bin Dolce DPM FACFAS Work Phone: [facility] 06-06-2024 08:31-0500 Body height 172.7 cm Bin Dolce DPM FACFAS Work Phone: [facility] 11-20-2024 08:31-0500 Body mass index (BMI) [Ratio] 34.21 kg/m2 Bin Dolce DPM [employer]AC[employer] Work Phone: [facility] 06-06-2024 08:31-0500 Body weight 102.06 kg Bin Dolce DPM FAC[employer] Work Phone: [facility] 06-06-2024 08:31-0500 Diastolic blood pressure 67 mm[Hg] Bin Dolce DPM FAC[employer] Work Phone: [facility] 06-06-2024 08:31-0500 Heart rate 70 /min Bin Dolce DPM FAC[employer] Work Phone: [facility] 06-06-2024 08:31-0500 Systolic blood pressure 132 mm[Hg] Bin Dolce DPM FAC[employer] Work Phone: [facility] 05-29-2024 09:01-0500 Body height 172.7 cm Bin Dolce DPM FAC[employer] Work Phone: [facility] 05-29-2024 09:01-0500 Body mass index (BMI) [Ratio] 34.21 kg/m2 Bin Dolce DPM FAC[employer] Work Phone: [facility] 05-29-2024 09:01-0500 Body weight 102.06 kg Bin Dolce DPM FAC[employer]AS Work Phone: [facility] 05-29-2024 09:01-0500 Diastolic blood pressure 68 mm[Hg] Bin Dolce DPM FACFAS Work Phone: [facility] 05-29-2024 09:01-0500 Heart rate 70 /min Bin Dolce DPM FACFAS Work Phone: [facility] 05-29-2024 09:01-0500 Systolic blood pressure 130 mm[Hg] Bin Dolce DPM FACFAS Work Phone: [facility] 05-22-2024 11:33-0500 Body height 172.7 cm Bin Dolce DPM FACFAS Work Phone: [facility] 05-22-2024 11:33-0500 Body mass index (BMI) [Ratio] 34.21 kg/m2 Bin Dolce DPM FAC[employer] Work Phone: [facility] 05-22-2024 11:33-0500 Body weight 102.06 kg Bin Dolce DPM FACFAS Work Phone: [facility] 05-22-2024 11:33-0500 Diastolic blood pressure 67 mm[Hg] Bin Dolce DPM FAC[employer]AS Work Phone: [facility] 05-22-2024 11:33-0500 Heart rate 68 /min Bin Dolce DPM FACFAS Work Phone: [facility] 05-22-2024 11:33-0500 Systolic blood pressure 132 mm[Hg] Bin Dolce DPM FACFAS Work Phone: [facility] 05-15-2024 09:38-0400 Body height 172.7 cm Bin Dolce DPM FACFAS Work Phone: [facility] 05-15-2024 09:38-0400 Body mass index (BMI) [Ratio] 34.21 kg/m2 Bin Dolce DPM FAC[employer] Work Phone: [facility] 05-15-2024 09:38-0400 Body weight 102.06 kg Bin Dolce DPM FAC[employer] Work Phone: [facility] 05-15-2024 09:38-0400 Diastolic blood pressure 64 mm[Hg] Bin Dolce DPM FAC[employer] Work Phone: [facility] 05-15-2024 09:38-0400 Heart rate 69 /min Bin Dolce DPM FACF[employer] Work Phone: [facility] 05-15-2024 09:38-0400 Systolic blood pressure 131 mm[Hg] Bin Dolce DPM FACFAS Work Phone: [facility] 03-30-2024 08:47-0400 Body height 172.7 cm Noemi Warchol [employer] Work Phone: [facility] 03-30-2024 08:47-0400 Body mass index (BMI) [Ratio] 34.3 kg/m2 Noemi Warchol [employer] Work Phone: [facility] 03-30-2024 08:47-0400 Body temperature 97.3 [degF] Noemi Cruzchol [employer] Work Phone: [facility] 03-30-2024 08:47-0400 Body weight 102.33 kg Noemi Cruzchol [employer] Work Phone: [facility] 03-30-2024 08:47-0400 Diastolic blood pressure 62 mm[Hg] Noemi Cruzchol [employer] Work Phone: [facility] 03-30-2024 08:47-0400 Heart rate 68 /min Noemi Cruzchol [employer] Work Phone: [facility] 03-30-2024 08:47-0400 SaO2% (BldA) [Mass fraction] 98 % Noemi Argueta [employer] Work Phone: [facility] 03-30-2024 08:47-0400 Systolic blood pressure 130 mm[Hg] Noemi Argueta [employer] Work Phone: [facility] 03-24-2024 09:07-0400 Body height 172.7 cm Valentina Gregg MD Work Phone: [facility] 03-24-2024 09:07-0400 Body mass index (BMI) [Ratio] 34.06 kg/m2 Valentina Gregg MD Work Phone: [facility] 03-24-2024 09:07-0400 Body weight 101.61 kg Valentina Gregg MD Work Phone: [facility] 03-24-2024 09:07-0400 Diastolic blood pressure 98 mm[Hg] Valentina Gregg MD Work Phone: [facility] 03-24-2024 09:07-0400 Systolic blood pressure 172 mm[Hg] Valentina Gregg MD Work Phone: [facility] 03-16-2024 10:01-0400 Body height 175.3 cm Josep Perdomo MD Work Phone: [facility] 03-16-2024 10:01-0400 Body mass index (BMI) [Ratio] 33.58 kg/m2 Josep Perdomo MD Work Phone: [facility] 03-16-2024 10:01-0400 Body weight 103.15 kg Josep Perdomo MD Work Phone: [facility] 03-16-2024 10:01-0400 Diastolic blood pressure 64 mm[Hg] Josep Perdomo MD Work Phone: [facility] 03-16-2024 10:01-0400 Heart rate 64 /min Josep Perdomo MD Work Phone: [facility] 03-16-2024 10:01-0400 Systolic blood pressure 138 mm[Hg] Josep Perdomo MD Work Phone: [facility] 09-09-2023 11:55-0500 Diastolic blood pressure 68 mm[Hg] Josep Perdomo MD Work Phone: [facility] 09-09-2023 11:55-0500 Systolic blood pressure 138 mm[Hg] Josep Perdomo MD Work Phone: [facility] 09-09-2023 11:40-0500 Body height 172.7 cm Josep Perdomo MD Work Phone: [facility] 09-09-2023 11:40-0500 Body mass index (BMI) [Ratio] 35.28 kg/m2 Josep Perdomo MD Work Phone: [facility] 09-09-2023 11:40-0500 Body weight 105.23 kg Josep Perdomo MD Work Phone: [facility] 09-09-2023 11:40-0500 Heart rate 72 /min Josep Perdomo MD Work Phone: [facility] 11-30-2022 13:11-0400 Diastolic blood pressure 64 mm[Hg] Oswaldo Rafiq [employer] Work Phone: [facility] DO Work Phone: 11-30-2022 13:11-0400 Systolic blood pressure 150 mm[Hg] Oswaldo Conroy Grewal Work Phone: [facility] DO Work Phone: 11-30-2022 13:08-0400 Body height 172.72 cm Osawldo A [employer] Work Phone: [facility] DO Work Phone: 11-30-2022 13:08-0400 Body mass index (BMI) [Ratio] 39.53 kg/m2 Oswaldo Conroy [employer] Work Phone: [facility] DO Work Phone: 11-30-2022 13:08-0400 Body surface area Derived from formula 2.28 m2 Oswaldo Rafiq [employer] Work Phone: [facility] DO Work Phone: 11-30-2022 13:08-0400 Body weight 117.94 kg Oswaldo A [employer] Work Phone: [facility] DO Work Phone: 11-30-2022 13:08-0400 Diastolic blood pressure 70 mm[Hg] Oswaldo Rafiq Grewal Work Phone: [facility] DO Work Phone: 11-30-2022 13:08-0400 Heart rate 80 /min Oswaldo A [employer] Work Phone: [facility] DO Work Phone: 11-30-2022 13:08-0400 Systolic blood pressure 150 mm[Hg] Oswaldo Conroy Grewal Work Phone: [facility] DO Work Phone: 10-06-2022 15:59-0400 Body height 172.72 cm Oswaldo Conroy [employer] Work Phone: [facility] DO Work Phone: 10-06-2022 15:59-0400 Body mass index (BMI) [Ratio] 38.01 kg/m2 Oswaldo Conroy [employer] Work Phone: [facility] DO Work Phone: 10-06-2022 15:59-0400 Body surface area Derived from formula 2.25 m2 Oswaldo Conroy [employer] Work Phone: [facility] DO Work Phone: 10-06-2022 15:59-0400 Body weight 113.4 kg Oswaldo Conroy [employer] Work Phone: [facility] DO Work Phone: 10-06-2022 15:59-0400 Diastolic blood pressure 70 mm[Hg] Oswaldo Conroy [employer] Work Phone: [facility] DO Work Phone: 10-06-2022 15:59-0400 Heart rate 80 /min Oswaldo Conroy [employer] Work Phone: [facility] DO Work Phone: 10-06-2022 15:59-0400 Systolic blood pressure 170 mm[Hg] Oswaldo Conroy Grewal Work Phone: [facility] 250 DO Work Phone: 08-05-2022 08:37-0500 Body height 172.7 cm Pacc 4 Work Phone: [facility] 08-05-2022 08:37-0500 Body temperature 97.5 [degF] Pacc 4 Work Phone: [facility] 08-05-2022 08:37-0500 Body weight 115.21 kg Pacc 4 Work Phone: [facility] 08-05-2022 08:37-0500 Diastolic blood pressure 62 mm[Hg] Pacc 4 Work Phone: [facility] 08-05-2022 08:37-0500 Heart rate 65 /min Pacc 4 Work Phone: [facility] 08-05-2022 08:37-0500 Respiratory rate 16 /min Pacc 4 Work Phone: [facility] 08-05-2022 08:37-0500 SaO2% (BldA) [Mass fraction] 99 % Pacc 4 Work Phone: [facility] 08-05-2022 08:37-0500 Systolic blood pressure 159 mm[Hg] Pacc 4 Work Phone: [facility] 06-02-2022 12:50-0500 Diastolic blood pressure 77 mm[Hg] DURABILITY ENGINEER Yajaira Kiepert Work Phone: [facility] 06-02-2022 12:50-0500 Heart rate 62 /min DURABILITY ENGINEER Yajaira Kiepert Work Phone: [facility] 06-02-2022 12:50-0500 Respiratory rate 16 /min DURABILITY ENGINEER Yajaira Kiepert Work Phone: [facility] 06-02-2022 12:50-0500 SaO2% (BldA) [Mass fraction] 94 % DURABILITY ENGINEER Yajaira Kiepert Work Phone: [facility] 06-02-2022 12:50-0500 Systolic blood pressure 170 mm[Hg] DURABILITY ENGINEER Yajaira Kiepert Work Phone: [facility] 06-02-2022 12:20-0500 Inhaled oxygen flow rate 1 L/min DURABILITY ENGINEER Yajaira Kiepert Work Phone: [facility] 06-02-2022 10:44-0500 Body height 172.72 cm DURABILITY ENGINEER Yajaira Kiepert Work Phone: [facility] 06-02-2022 10:44-0500 Body mass index (BMI) [Ratio] 38.9 kg/m2 MARY KATE Bhardwaj Work Phone: [facility] 06-02-2022 10:44-0500 Body weight 116 kg MARY KATE Bhardwaj Work Phone: [facility] 06-02-2022 10:40-0500 Body temperature 97.7 [degF] MARY KATE Bhardwaj Work Phone: [facility] 04-01-2022 16:36-0400 Diastolic blood pressure 87 mm[Hg] Oswaldo Conroy [employer] Work Phone: [facility] 250 DO Work Phone: 04-01-2022 16:36-0400 Systolic blood pressure 139 mm[Hg] Oswaldo Conroy [employer] Work Phone: [facility] 250 DO Work Phone: 04-01-2022 14:50-0400 Body height 172.72 cm Oswaldo Conroy [employer] Work Phone: [facility] 250 DO Work Phone: 04-01-2022 14:50-0400 Body mass index (BMI) [Ratio] 38.32 kg/m2 Oswaldo Conroy [employer] Work Phone: [facility] 250 DO Work Phone: 04-01-2022 14:50-0400 Body surface area Derived from formula 2.25 m2 Oswaldo Conroy [employer] Work Phone: [facility] 250 DO Work Phone: 04-01-2022 14:50-0400 Body weight 114.31 kg Oswaldo Conroy [employer] Work Phone: [facility] 250 DO Work Phone: 04-01-2022 14:50-0400 Diastolic blood pressure 72 mm[Hg] Oswaldo A Grewal Work Phone: [facility] 250 DO Work Phone: 04-01-2022 14:50-0400 Heart rate 72 /min Oswaldo A Grewal Work Phone: [facility] 250 DO Work Phone: 04-01-2022 14:50-0400 Systolic blood pressure 162 mm[Hg] Oswaldo A Grewal Work Phone: [facility] 250 DO Work Phone: 03-20-2022 18:00-0400 Body temperature 97.52 [degF] Oswaldo Grewal Other Phone: [facility] 03-20-2022 18:00-0400 Diastolic blood pressure 61 mm[Hg] Oswaldo Grewal Other Phone: [facility] 03-20-2022 18:00-0400 Heart rate 87 /min Oswaldo Grewal Other Phone: [facility] 03-20-2022 18:00-0400 Respiratory rate 25 /min Oswaldo Grewal Other Phone: [facility] 03-20-2022 18:00-0400 SaO2% (BldA) [Mass fraction] 95 % Oswaldo Grewal Other Phone: [facility] 03-20-2022 18:00-0400 Systolic blood pressure 153 mm[Hg] Oswaldo Grewal Other Phone: [facility] 03-08-2022 10:28-0400 Body height 172.72 cm Oswaldo A Grewal Work Phone: [facility] [address] [place] Work Phone: 03-08-2022 10:28-0400 Body mass index (BMI) [Ratio] 38.32 kg/m2 Oswaldo Conroy [employer] Work Phone: PY-Dnfgadovme-HEN [facility] [address] [place] Work Phone: 03-08-2022 10:28-0400 Body surface area Derived from formula 2.25 m2 Oswaldo Conroy [employer] Work Phone: QQ-Cvsozytnds-XJU [facility] [address] [place] Work Phone: 03-08-2022 10:28-0400 Body weight 114.31 kg Oswaldo Conroy [employer] Work Phone: YG-Plrwfzmznh-ORC [facility] [address] [place] Work Phone: 03-08-2022 10:28-0400 Diastolic blood pressure 66 mm[Hg] Oswaldo Conroy [employer] Work Phone: UD-Dvzojgdotm-KWW [facility] [address] [place] Work Phone: 03-08-2022 10:28-0400 Heart rate 72 /min Oswaldo Conroy [employer] Work Phone: SZ-Vkufhdrddk-DGJ [facility] [address] [place] Work Phone: 03-08-2022 10:28-0400 SaO2% (BldA) [Mass fraction] 98 % Oswaldo Conroy [employer] Work Phone: JY-Bytusgylfr-DZV [facility] [address] [place] Work Phone: 03-08-2022 10:28-0400 Systolic blood pressure 157 mm[Hg] Oswaldo Conroy [employer] Work Phone: FK-Hthmihozqw-XED [facility] [address] [place] Work Phone: 03-08-2022 10:28-0400 0 1 Oswaldo Conroy [employer] Work Phone: PI-Xacjcdoquo-LJL [facility] [address] [place] Work Phone: Comment on above: [employer] 02-22-2022 11:00-0400 Body height 176.53 cm Kindra Peralta Other [employer] Other 02-22-2022 11:00-0400 Body mass index (BMI) [Ratio] 36.39 kg/m2 Kindra Peralta Other [employer] Other 02-22-2022 11:00-0400 Body temperature 98.1 [degF] Kindra Peralta Other [employer] Other 02-22-2022 11:00-0400 Body weight 113.4 kg Kindra Peralta Other [employer] Other 02-22-2022 11:00-0400 Respiratory rate 18 /min Kindra Peralta Other [employer] Other 02-22-2022 11:00-0400 SaO2% (BldA) [Mass fraction] 98 % Kindra Peralta Other [employer] Other 02-02-2022 16:25-0400 60 1 Oswaldolily Grewal Work Phone: [facility] 250 DO Work Phone: Comment on above: [id number] 02-02-2022 15:32-0400 Body temperature 97.8 [degF] DURABILITY ENGINEER Yajaira Kiepert Work Phone: [facility] 02-02-2022 15:32-0400 Diastolic blood pressure 62 mm[Hg] DURABILITY ENGINEER Yajaira Kiepert Work Phone: [facility] 02-02-2022 15:32-0400 Heart rate 68 /min DURABILITY ENGINEER Yajaira Kiepert Work Phone: [facility] 02-02-2022 15:32-0400 Respiratory rate 16 /min DURABILITY ENGINEER Yajaira Kiepert Work Phone: [facility] 02-02-2022 15:32-0400 SaO2% (BldA) [Mass fraction] 96 % DURABILITY ENGINEERAriadna Bhardwaj Work Phone: [facility] 02-02-2022 15:32-0400 Systolic blood pressure 142 mm[Hg] MARY KATE Eddyt Work Phone: [facility] 02-02-2022 10:57-0400 Body height 172.72 cm MARY KATE Bhardwaj Work Phone: [facility] 02-02-2022 10:57-0400 Body mass index (BMI) [Ratio] 38.2 kg/m2 MARY KATE Bhardwaj Work Phone: [facility] 02-02-2022 10:57-0400 Body weight 114 kg MARY KATE Bhardwaj Work Phone: [facility] 02-02-2022 00:00-0400 65 1 Oswaldo A [employer] Work Phone: [facility] 250 DO Work Phone: Comment on above: [id number] 12-23-2021 14:35-0400 Body height 172.72 cm Oswaldo Rafiq [employer] Work Phone: [facility] 250 DO Work Phone: 12-23-2021 14:35-0400 Body mass index (BMI) [Ratio] 37.86 kg/m2 Oswaldo A [employer] Work Phone: [facility] 250 DO Work Phone: 12-23-2021 14:35-0400 Body surface area Derived from formula 2.24 m2 Oswaldo Rafiq [employer] Work Phone: [facility] 250 DO Work Phone: 12-23-2021 14:35-0400 Body weight 112.95 kg Oswaldo Conroy [employer] Work Phone: [facility] 250 DO Work Phone: 12-23-2021 14:35-0400 Diastolic blood pressure 70 mm[Hg] Oswaldo [employer]roy [employer] Work Phone: [facility] 250 DO Work Phone: 12-23-2021 14:35-0400 Heart rate 69 /min Oswaldo [employer]roy [employer] Work Phone: [facility] 250 DO Work Phone: 12-23-2021 14:35-0400 Systolic blood pressure 161 mm[Hg] Oswaldo [employer]roy [employer] Work Phone: [facility] 250 DO Work Phone: 12-23-2021 14:32-0400 Body height 172.72 cm Oswaldo Conroy [employer] Work Phone: [facility] 250 DO Work Phone: 12-23-2021 14:32-0400 Body mass index (BMI) [Ratio] 37.86 kg/m2 Oswaldo Conroy [employer] Work Phone: [facility] 250 DO Work Phone: 12-23-2021 14:32-0400 Body surface area Derived from formula 2.24 m2 Oswaldo Conroy [employer] Work Phone: [facility] 250 DO Work Phone: 12-23-2021 14:32-0400 Body weight 112.95 kg Oswaldo Conroy [employer] Work Phone: [facility] 250 DO Work Phone: 12-23-2021 14:32-0400 Diastolic blood pressure 78 mm[Hg] Oswaldo [employer]roy [employer] Work Phone: [facility] 250 DO Work Phone: 12-23-2021 14:32-0400 Heart rate 69 /min Oswaldo Grewal Work Phone: [facility] 250 DO Work Phone: 12-23-2021 14:32-0400 Systolic blood pressure 162 mm[Hg] Oswaldo Samter Work Phone: [facility] 250 DO Work Phone: 12-17-2021 00:00-0400 65 1 Oswaldo Grewal Work Phone: [facility] 250 DO Work Phone: Comment on above: [id number] 09-07-2021 10:45-0500 Body height 176.53 cm Kindra Kathryn Other [employer] Other 09-07-2021 10:45-0500 Body mass index (BMI) [Ratio] 33.77 kg/m2 Kindra Kathryn Other [employer] Other 09-07-2021 10:45-0500 Body temperature 97.7 [degF] Kindra Kathryn Other [employer] Other 09-07-2021 10:45-0500 Body weight 105.24 kg Kindra Kathryn Other [employer] Other 09-07-2021 10:45-0500 SaO2% (BldA) [Mass fraction] 95 % Kindra Kathryn Other [employer] Other Encounters Encounter Date Encounter Type Care Provider Facility Start: 03-19-2025 End: 03-19-2025 ambulatory Oswaldo Grewal MD Work Phone: [facility] Work Phone: Start: 03-19-2025 End: 03-19-2025 Patient encounter procedure Esther Palomares MD -[facility] Work Phone: Start: 03-19-2025 End: 03-19-2025 Patient encounter procedure sEther Palomares MD -[facility] Start: 03-19-2025 End: 03-19-2025 ambulatory Oswaldo Grewal MD Work Phone: [facility] Work Phone: Start: 03-15-2025 End: 03-15-2025 ambulatory [facility] Start: 03-15-2025 End: 03-15-2025 Office outpatient visit 15 minutes Josep Perdomo MD Work Phone: [facility] Comment on above: S/P TAVR (transcathe ter aortic valve replacement) (Primary Dx); Essential hypertension, benign; Mixed hyperlipidemia; BMI 34.0-34.9,adult; Never smoked tobacco Start: 02-26-2025 End: 02-26-2025 Telephone encounter Valentina Gregg MD Work Phone: [facility] Start: 02-13-2025 End: 02-13-2025 ambulatory Oswaldo Grewal MD Work Phone: [facility] Work Phone: Start: 02-13-2025 End: 02-13-2025 Patient encounter procedure Esther Palomares MD -[facility] Work Phone: Start: 02-13-2025 End: 02-13-2025 Patient encounter procedure Esther Palomares MD -[facility] Start: 02-13-2025 End: 02-13-2025 ambulatory Oswaldo Grewal MD Work Phone: [facility] Work Phone: Start: 02-04-2025 End: 02-04-2025 Clinisync Result Encounter Generic External Data Provider [facility] External Department Unsolicited Start: 02-04-2025 End: 02-04-2025 Clinisync Result Encounter Generic External Data Provider [facility] External Department Unsolicited Start: 02-04-2025 End: 02-04-2025 Subsequent hospital visit by physician Cheryl [facility] Echo/Vasc Room 2 [facility] Comment on above: Essential hypertensi on, benign; S/P TAVR (transcatheter aortic valve replacement) Start: 02-04-2025 End: 02-04-2025 ambulatory [facility] Start: 01-31-2025 End: 01-31-2025 Office outpatient visit 25 minutes Geurline Obrien [employer] CAN [employer] Work Phone: [facility] Comment on above: Type 2 diabetes [...] Orders Only Oswaldo Grewal MD Work Phone: [facility] [employer] Comment on above: RLS (restless legs s yndrome) (Primary Dx) Med Refill Start: 01-09-2025 End: 01-09-2025 ambulatory Oswaldo Grewal MD Work Phone: [facility] Work Phone: Start: 01-09-2025 End: 01-09-2025 Patient encounter procedure Esther Palomares MD -[facility] Work Phone: Start: 11-16-2024 End: 11-16-2024 Bamboo flowsheet Valentina Gregg MD Work Phone: [facility] Start: 11-16-2024 End: 11-16-2024 Audrey flowsheet Valentina Gregg MD Work Phone: [facility] Start: 11-16-2024 End: 11-16-2024 Office outpatient visit 25 minutes Valentina Gregg MD Work Phone: [facility] Comment on above: Acute left-sided low back pain with left-sided sciatica; RLS (restless legs syndrome); Carpal tunnel syndrome, bilateral Start: 11-16-2024 End: 11-16-2024 ambulatory VALENTINA GREGG Not Available Start: 11-12-2024 End: 11-12-2024 Refill Guerline R Lause [employer] Work Phone: [facility] Comment on above: Irritable bowel synd karlee, unspecified type Start: 10-15-2024 End: 10-15-2024 Refill Guerline R Lause [employer] Work Phone: [facility] Comment on above: Acute left-sided low back pain with left-sided sciatica Start: 10-10-2024 End: 10-10-2024 Telephone encounter Valentina Gregg MD Work Phone: [facility] Start: 09-17-2024 End: 09-17-2024 ambulatory NOEMI ARGUETA Not Available Start: 09-17-2024 End: 09-17-2024 Office outpatient visit 25 minutes Noemi Argueta [employer] Work Phone: [facility] Comment on above: Acute left-sided low back pain with left-sided sciatica (Primary Dx) Start: 08-03-2024 End: 08-03-2024 Bamboo flowsheet Noemi Argueta [employer] Work Phone: [facility] Start: 08-03-2024 End: 08-03-2024 Bamboo flowsheet Noemi Cruzchol [employer]ER Work Phone: [facility] Start: 08-03-2024 End: 08-03-2024 Office outpatient visit 25 minutes Noemi Argueta [employer] Work Phone: [facility] Comment on above: Type 2 diabetes jewel itus with foot ulcer (CODE) ([facility]) (Primary Dx); Non-pressure chronic ulcer of other part of right foot with fat layer exposed ([facility]); Type 2 diabetes mellitus with diabetic chronic kidney disease ([facility]); Chronic kidney disease, stage 3a (HCC) ([facility]); Type 2 diabetes mellitus with diabetic cataract ([facility]); Carpal tunnel syndrome, bilateral; Irritable bowel syndrome, unspecified type; Restless legs syndrome; Hypothyroidism (acquired) ([facility]); Primary hypertension ([facility]); Hypertriglyceridemia ([facility]); Type 2 diabetes mellitus with diabetic cataract, without long-term current use of insulin ([facility]) [E11.36] Start: 08-03-2024 End: 08-03-2024 ambulatory [...] Start: 05-14-2024 End: 05-14-2024 Refill Noemi Argueta [employer] Work Phone: [email or web address] Comment on above: Irritable bowel synd karlee, unspecified type Start: 03-30-2024 End: 03-30-2024 Office outpatient visit 25 minutes Noemi Argueta [employer] Work Phone: [email or web address] [facility] Comment on above: Adult general medica l examination (Primary Dx); Atherosclerosis of aorta (CMS/HCC); Type 2 diabetes mellitus without complication, unspecified whether intermediate designer insulin use (CMS/HCC); Immunization due; Primary hypertension (CMS/HCC); Anemia, unspecified type; Hypomagnesemia Start: 03-30-2024 End: 03-30-2024 Patient encounter status Noemi Argueta [employer] Work Phone: [facility] Work Phone: Start: 03-30-2024 End: [...] 25 minutes Valentina Gregg MD Work Phone: [facility] Comment on above: Carpal tunnel syndro me, bilateral (Primary Dx); RLS (restless legs syndrome) Start: 03-20-2024 End: 03-20-2024 Telephone encounter Valentina Gregg MD Work Phone: [facility] Start: 03-16-2024 End: 03-16-2024 Office outpatient visit 25 minutes Josep Perdomo MD Work Phone: [facility] Comment on above: Mixed hyperlipidemia (Primary Dx); Essential hypertension, benign; BMI 35.0-35.9,adult; Dyspnea, unspecified type; S/P TAVR (transcatheter aortic valve replacement); Never smoked tobacco Start: 03-15-2024 End: 03-15-2024 Telephone encounter Guerline Obrien NP Work Phone: [facility] Start: 09-09-2023 End: 09-09-2023 Office outpatient visit 15 minutes Josep Perdomo MD Work Phone: [facility] Comment on above: Essential hypertensi on, benign (Primary Dx); S/P TAVR (transcatheter aortic valve replacement); Mixed hyperlipidemia; Dyspnea, unspecified type; BMI 35.0-35.9,adult Start: 09-02-2023 End: 09-02-2023 ambulatory SELF Facility:[facility] Start: 09-02-2023 End: 09-02-2023 Patient encounter procedure Lucas Levy PA-C Work Phone: Orthopaedics Comment on above: Aftercare following right knee joint replacement surgery (Primary Dx); Status post revision of total knee, right; Status post left knee replacement Start: 07-29-2023 End: 07-29-2023 ambulatory OSWALDO GREWAL Facility:[facility] Start: 07-29-2023 End: 07-29-2023 Subsequent hospital visit by physician Ricky Combs 1 Work Phone: Radiology Comment on above: Status post revision of total knee, 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] Start: 03-17-2023 Office outpatient vi sit 15 minutes Oswaldo Grewal Work Phone: [facility]Fwlqkfhcbh-Xtwrleu Work Phone: Start: 03-17-2023 ambulatory EFFIE SAUCEDO [facility] ility:[id number] Start: 03-02-2023 Refill Lucas Levy PA-C Work Phone: Orthopaedics Start: 02-28-2023 End: 02-28-2023 ambulatory VIOLET COMBS Facility:[facility] Start: 02-28-2023 End: 02-28-2023 Patient encounter procedure Violet oCmbs MD Work Phone: Orthopaedics Comment on above: Status post revision of total knee, right (Primary Dx); Status post left knee replacement Start: 02-28-2023 End: 02-28-2023 Subsequent hospital visit by physician Ricky Combs 1 Work Phone: Radiology Comment on above: Status post revision of total knee, 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 Josep Perdomo Facility: Start: 11-29-2022 End: 11-29-2022 ambulatory OSWALDO GREWAL Facility:[facility] Start: 11-03-2022 End: 11-03-2022 ambulatory LUCAS LEVY Facility:[facility] Start: 10-15-2022 End: 10-15-2022 ambulatory VIOLET COMBS Facility:[facility] Start: 10-15-2022 End: 10-15-2022 Patient encounter procedure Violet Combs MD Work Phone: Orthopaedics Comment on above: Status post revision of total knee, right (Primary Dx) Start: 10-06-2022 Office outpatient vi sit 25 minutes Oswaldo Grewal Work Phone: [facility] 250 DO Work Phone: Start: 10-06-[address] Josep Perdomo Facility: Start: 10-01-2022 End: 10-02-[address] DOCTOR JANSEN Facility:[facility] Start: 09-17-2022 End: 09-17-2022 ambulatory TIN [employer] Noemi [facility] Work Phone: Start: 09-17-2022 End: 09-17-2022 Patient encounter procedure TIN CAN FEEDER [facility] [place] Work Phone: Start: 09-07-2022 End: 09-07-2022 ambulatory [...] 08-23-2022 Chart Update Oswaldo Grewal Work Phone: [facility] 250 DO Work Phone: Start: 08-19-2022 End: 08-20-2022 Evaluation and management of inpatient VIOLET COMBS Facility:[facility] Start: 08-05-2022 End: 08-05-2022 Patient encounter procedure Violet Combs MD Work Phone: Orthopaedics Comment on above: MRSA (methicillin re sistant Staphylococcus aureus) (Primary Dx); S/P right unicompartmental knee replacement; Failed total knee arthroplasty, sequela Start: 08-05-2022 End: 08-05-2022 [place] [id number] Work Phone: [facility] Start: 08-05-2022 End: 08-05-2022 ambulatory [facility] Work Phone: Pre Anesthesia Comment on above: Preop examination (P rimary Dx); Primary hypertension; Mixed hyperlipidemia; Irritable bowel syndrome, unspecified type; Obesity, Class II, BMI 35-39.9; Aortic valve stenosis, etiology of cardiac valve disease unspecified; RLS (restless legs syndrome); Hypothyroidism, unspecified type Start: 08-05-2022 End: 08-05-2022 Preprocedural examination done [facility] Work Phone: Pre Anesthesia Start: 08-04-2022 ambulatory Aline David RN Orthopaed ics Start: 07-26-2022 AUDIT Oswaldo Grewal Work Phone: AO-Hgihbvqhea-LRZ [facility] [address] [place] Work Phone: Start: 06-29-2022 End: 06-29-2022 ambulatory MARY KATE Bhardwaj Work Phone: [facility] Work Phone: Start: 06-29-2022 End: 06-29-2022 Patient encounter procedure MARY KATE Bhardwaj Work Phone: [facility] [place] Start: 06-28-2022 End: 06-28-2022 ambulatory MARY KATE Bhardwaj Work Phone: [facility] Work Phone: Start: 06-28-2022 End: 06-28-2022 Patient encounter procedure MARY KATE Bhardwaj Work Phone: [facility] [place] Start: 06-02-2022 End: 06-02-2022 Admission to same day surgery center MARY KATE Bhardwaj Work Phone: [facility] [place] Start: 05-31-2022 End: 05-31-2022 ambulatory MARY KATE Bhardwaj Work Phone: [facility] Work Phone: Start: 05-31-2022 End: 05-31-2022 Patient encounter procedure MARY KATE Bhardwaj Work Phone: [facility]-Pre-Surgical [facility] Start: 05-31-2022 End: 05-31-2022 Patient [...] 05-19-2022 ambulatory MARY KATE Bhardwaj Work Phone: [facility] Work Phone: Start: 05-19-2022 End: 05-19-2022 Patient encounter procedure MARY KATE Bhardwaj Work Phone: [facility] Start: 05-13-2022 Phys/qhp telephone evaluation 21-30 min Oswaldo Grewal Work Phone: FT-Sfodbtmmrs-Ammbwlu Work Phone: Start: 05-13-[address] Oswaldo Grewal Facility:[id number] Start: 04-01-2022 Office outpatient vi sit 25 minutes Oswaldo Grewal Work Phone: [facility] 250 DO Work Phone: Start: 04-01-[address] Josep Perdomo Facility: Start: 04-01-2022 Telephone encounter Violet Combs MD Work Phone: Orthopaedics Comment on above: Forms (Extend FMLA) Start: 03-25-2022 End: 03-26-[address] WAHL LISTED REQUEST Facility:[facility] Start: 03-19-2022 End: 03-20-2022 Evaluation and management of inpatient Lashon Long[place] [facility] [place] [facility] Rm 09 Start: 03-18-2022 AUDIT Oswaldo Grewal Work Phone: PI-Elfvksquso-SYB [facility] [address] [place] Work Phone: Start: 03-18-2022 End: 03-19-2022 ambulatory NOEMI DANIELS Facility:[facility] Start: 03-17-2022 Chart Update Oswaldo Grewal Work Phone: VF-Jwexlzvtlu-MUJ [facility] [address] [place] Work Phone: Start: 03-12-2022 End: 03-13-[address] DOCTOR JANSEN Facility:[facility] Start: 03-08-2022 Current tobacco non- user cad cap copd pv dm Oswaldo Grewal Work Phone: ZL-Uifaxlvhuq-GWH [facility] [address] [place] Work Phone: Start: 03-02-2022 End: 03-02-2022 Patient encounter procedure MARY KATE Bhardwaj Work Phone: [facility] Ctr-Lab Main [place] Start: 02-25-2022 AUDIT Oswaldo Grewal Work Phone: [id number] [facility] [address] [place] Work Phone: Start: 02-22-2022 End: 02-22-2022 ambulatory Kindra Kathryn Other [facility] [employer] Other Start: 02-22-2022 Office outpatient vi sit 25 minutes Kindra Peralta [facility] [place] Start: 02-02-2022 Chart Update Oswaldo Conroy Grewal Work Phone: [facility] [address] [place] Work Phone: Start: 02-02-2022 [facility], Provider: Josep Perdomo, Status: Pen, Time: 12:00 PM Oswaldo Grewal Work Phone: [facility] [address] DO Work Phone: Start: 02-02-2022 [facility], Provider: Josep Perdomo, Status: Pen, Time: 10:00 AM Oswaldo Conroy Grewal Work Phone: [facility] [address] DO Work Phone: Start: 02-02-2022 End: 02-02-2022 Admission to same day surgery center MARY KATE Bhardwaj Work Phone: [facility] Ctr-Accessibility Lift Technician Start: 02-01-2022 Chart Update Oswaldo Grewal Work Phone: [facility] [address] DO Work Phone: Start: 01-29-2022 End: 01-29-2022 Patient encounter procedure DURABILITY ENGINEER Yajairaamado Bhardwaj Work Phone: [facility] Hwp-Tbi-Acfwqivz Testing Start: 12-23-2021 Office consultation new/estab patient 80 min Oswaldo Grewal Work Phone: [facility] [address] [place] Work Phone: Start: 12-21-2021 ambulatory Aline David RN Orthopaed ics Start: 12-11-2021 Telephone encounter Yudith Mercedes APRN.CNP Work Phone: Pre Anesthesia Comment on above: Results Start: 12-09-2021 End: 12-09-2021 Subsequent hospital visit by physician Ricky Combs 1 Work Phone: Radiology Comment on above: S/P right unicompart mental knee replacement [Z96.651] Start: 09-07-2021 End: 09-07-2021 ambulatory Kindra Peralta Other [facility] [employer] Other Start: 09-07-2021 Office outpatient vi sit 15 minutes Kindra Peralta [facility] [place] Start: 08-03-2021 End: 08-03-2021 [...] Start: 02-01-2020 End: 02-01-2020 ambulatory Violet Combs Facility:[facility] Patient encounter status Oswaldo Grewal Work Phone: [facility] [address] DO Work Phone: Procedures Date Procedure Procedure Detail Performing Clinician Start: 03-19-2025 Plain X-ray of left hand Oswaldo Grewal MD Work Phone: Start: 02-13-2025 Plain X-ray of left hand Oswaldo Grewal MD Work Phone: Start: 02-04-2025 End: 02-04-2025 Echo tthrc r-t 2d w/wom-mode compl spec&colr d Generic External Data Provider Start: 01-31-2025 Hemoglobin glycosylated a1c Guerline Obrien TIN CAN FEEDER Work Phone: Start: 08-03-2024 Hemoglobin glycosylated a1c Noemi Argueta TIN CAN FEEDER Work Phone: Start: 03-30-2024 End: 03-30-2024 Hemoglobin glycosylated a1c Noemi Argueta TIN CAN FEEDER Work Phone: Start: 03-24-2024 ALL CBC WITH AUTO DIFF Generic External Data Provider Start: 07-29-2023 Radiologic examination knee 3 views Lucas Scotch PA-C Work Phone: Start: 03-14-2023 Mammography Guerline Shawn TIN CAN FEEDER Work Phone: Start: 02-28-2023 Radiologic examination knee [...] S/P right unicompartmental knee replacement Yudith Hobson DURABILITY ENGINEER.BELLHOP SERVICE CAPTAIN Work Phone: Start: 03-27-2021 Radiologic examination knee 3 views Lucas Mildred LAY Work Phone: Start: 02-02-2021 Radiologic exam knee complete 4/more views Violet Combs MD Work Phone: Start: 02-27-2020 Radiologic examination knee 3 views Violet Combs MD Work Phone: Start: 01-25-2018 Colonoscopy Guerline Obrien TIN CAN FEEDER Work Phone: Start: 07-18-2015 Total colonoscopy Oswaldo Conroy Grewal Work Phone: Start: 07-03-2014 H/O: artificial joint S/P TKR o/90 days Yudith Hobson DURABILITY ENGINEER.BELLHOP SERVICE CAPTAIN Work Phone: Arthroplasty of knee Oswaldo Conroy Grewal Work Phone: Laser assisted in si tu keratomileusis Oswaldo Conroy Grewal Work Phone: Laser gonioplasty Oswaldo Conroy Ba xter Work Phone: Replacement of aorti c valve Oswaldo Conroy Grewal Work Phone: SARS Antigen (LFIA) DURABILITY ENGINEER Car socorro Viveraeepert Work Phone: SARS Antigen (LFIA) DURABILITY ENGINEER Car socorro Polisofiat Work Phone: Surgical procedure o n eye proper Oswaldo A Grewal Work Phone: Plan of Treatment Date Care Activity Detail Author Start: 2036 RSV Vaccine (1 - 1-dose 75+ series) RSV Vaccine (1 - 1-dose 75+ series) [facility] Start: 01-08-2035 DTaP/Tdap/Td Vaccines (2 - Td or Tdap) DTaP/Tdap/Td Vaccines (2 - Td or Tdap) [facility] Start: 01-26-2028 Screening for malignant neoplasm of colon [facility] Start: 04-11-2026 End: 04-11-2026 Patient encounter procedure 04/11/2026 9:50 AM EDT Office Visit [facility] [address] [place] [address] Josep Perdomo MD [address] [place] [address] [facility] Start: 02-17-2026 DIABETES SCREEN DIABETES SCREEN [facility] Start: 02-17-2026 Diabetes Screening Diabetes Screening [facility] Start: 01-31-2026 Screening for malignant neoplasm of cervix Cervical Cancer Screening [facility] Comment on above: Postponed from 1991 (Patient Refus ed) Start: 08-20-2025 DIABETES SCREEN DIABETES SCREEN [facility] Start: 08-05-2025 DIABETES SCREEN DIABETES SCREEN [facility] Start: 08-03-2025 Hemoglobin A1c measurement Diabetes: Hemoglobin A1C [facility] Start: 08-01-2025 End: 08-01-2025 Patient encounter procedure [facility] Start: 06-14-2025 Screening for malignant neoplasm of breast Mammogram [facility] Start: 03-30-2025 Urine screening for protein Diabetes: Urine Protein Screening [facility] Start: 03-20-2025 Diabetes mellitus screening Diabetes Screening [facility] Start: 03-19-2025 Plain X-ray of left hand XR hand LT min 3V* [facility] Start: 03-19-2025 XR Hand - left GE [address] [facility] Start: 03-18-2025 Influenza vaccination Influenza Vaccine (#1) [facility] Start: 03-16-2025 End: 03-16-2026 US Heart Transthoracic Transthoracic Echo Complete Echocardiography Routine Essential hypertension, benign S/P TAVR (transcatheter aortic valve replacement) Expected: 03/16/2025 (Approximate), Expires: 03/16/2026 [facility] Work Phone: Comment on above: Expected: 03/16/2025 (Approximate), Expi res: 03/16/2026 Start: 03-15-2025 End: 03-15-2026 Alanine aminotransferase [Enzymatic activity/volume] in Serum or Plasma by With P-5'-P Alanine Aminotransferase Lab Routine Mixed hyperlipidemia Expected: 03/15/2025 (Approximate), Expires: 03/15/2026 [facility] Service Area Work Phone: Comment on above: Expected: 03/15/2025 (Approximate), Expi res: 03/15/2026 Start: 03-15-2025 End: 03-15-2026 Aspartate aminotransferase [Enzymatic activity/volume] in Serum or Plasma by With P-5'-P Aspartate Aminotransferase Lab Routine Mixed hyperlipidemia Expected: 03/15/2025 (Approximate), Expires: 03/15/2026 [facility] Work Phone: Comment on above: Expected: 03/15/2025 (Approximate), Expi res: 03/15/2026 Start: 03-15-2025 End: 03-15-2026 Basic metabolic 2000 panel - Serum or Plasma Basic Metabolic Panel Lab Routine Essential hypertension, benign S/P TAVR (transcatheter aortic valve replacement) Expected: 03/15/2025 (Approximate), Expires: 03/15/2026 [facility] Work Phone: Comment on above: Expected: 03/15/2025 (Approximate), Expi res: 03/15/2026 Start: 03-15-2025 End: 03-15-2026 Lipid 1996 panel - Serum or Plasma Lipid Panel Lab Routine Mixed hyperlipidemia Expected: 03/15/2025 (Approximate), Expires: 03/15/2026 [facility] Work Phone: Comment on above: Expected: 03/15/2025 (Approximate), Expi res: 03/15/2026 Start: 03-15-2025 End: 03-15-2025 Patient encounter procedure 03/15/2025 9:00 AM EDT Office Visit [facility] [address] [place] [address] Josep Perdomo MD [address] [place] [address] [facility] Start: 02-28-2025 End: 02-28-2025 Patient encounter procedure 02/28/2025 8:30 AM EDT Office Visit [facility] [place] [facility] [address] [facility] [address] [place] [address] Guerline Amezcua APRN-BELLHOP SERVICE CAPTAIN [address] [place] [address] [facility] Start: 02-22-2025 End: 02-22-2025 Patient encounter procedure 02/22/2025 8:30 AM EDT Office Visit [facility] [address] [place] [address] Valentina Gregg MD [address], [place] [id number] [facility] Start: 02-20-2025 Glaucoma screening Diabetes: Retinopathy Screening [facility] Start: 02-13-2025 Plain X-ray of left hand XR hand LT min 3V* [facility] Start: 02-13-2025 XR Hand - left GE [address] [facility] Start: 01-31-2025 End: 01-31-2025 Patient encounter procedure [facility] Start: 12-09-2024 Diabetes mellitus screening Diabetes Screening [facility] Start: 12-09-2024 DIABETES SCREEN DIABETES SCREEN [facility] Start: 11-16-2024 End: 11-16-2024 Patient encounter procedure [facility] Comment on above: Arrived Start: 11-01-2024 Hemoglobin A1c measurement Diabetes: Hemoglobin A1C [facility] Start: 10-03-2024 End: 10-03-2024 Patient encounter procedure 10/03/2024 8:30 AM EDT Office Visit [facility] [address] [facility] [address] [place] [address] Gretel Barajas, TIN CAN FEEDER [address], [address] [place] [address] [facility] Start: 09-22-2024 Screening for malignant neoplasm of cervix Cervical Cancer Screening [facility] Comment on above: Postponed from 1991 (Patient [...] [facility] [address] [facility] [address] [place] [phone] Valentina Gregg MD [address] [facility] [address] [place] [address] [place] [id number] Arrived [facility] Comment on above: Arrived Start: 06-29-2024 Hemoglobin A1c measurement Diabetes: Hemoglobin A1C [facility] Start: 06-29-2024 End: 06-29-2024 Patient encounter procedure 06/29/2024 8:30 AM EST Office Visit [facility] [address] [address] Valentina Gregg MD [address] [facility] [address] [place] [address] [facility] Start: 06-20-2024 End: 06-20-2024 Patient encounter procedure [facility] Comment on above: Arrived Start: 06-18-2024 End: 03-30-2025 CBC W Auto Differential panel - Blood CBC auto differential Lab Routine Anemia, unspecified type Expected: 06/18/2024 (Approximate), Expires: 03/30/2025 [facility] Work Phone: Comment on above: Expected: 06/18/2024 (Approximate), Expi res: 03/30/2025 Start: 06-18-2024 End: 03-30-2025 Cobalamin (Vitamin B12) [Mass/volume] in Serum or Plasma Vitamin B12 Lab Routine Anemia, unspecified type Expected: 06/18/2024 (Approximate), Expires: 03/30/2025 [facility] Comment on above: Expected: 06/18/2024 (Approximate), Expi res: 03/30/2025 Start: 06-18-2024 End: 03-30-2025 Ferritin [Mass/volume] in Serum or Plasma Ferritin Lab Routine Anemia, unspecified type Expected: 06/18/2024 (Approximate), Expires: 03/30/2025 [facility] Comment on above: Expected: 06/18/2024 (Approximate), Expi res: 03/30/2025 Start: 06-18-2024 End: 03-30-2025 Folate [Mass/volume] in Serum or Plasma Folate Lab Routine Anemia, unspecified type Expected: 06/18/2024, Expires: 03/30/2025 [facility] Comment on above: Expected: 06/18/2024, Expires: Start: 06-18-2024 End: 03-30-2025 Iron and Iron binding capacity panel - Serum or Plasma Iron and TIBC Lab Routine Anemia, unspecified type Expected: 06/18/2024 (Approximate), Expires: 03/30/2025 [facility] Comment on above: Expected: 06/18/2024 (Approximate), [...] [facility] [address] [place] [address] Bin Bradford, DPM FACFAS [address] [place] [address] [facility] Start: 04-21-2024 Yearly Adult Physical Yearly Adult Physical [facility] Start: 03-30-2024 End: 03-30-2024 Patient encounter procedure 03/30/2024 8:40 AM EDT Office Visit [facility] [address] [place] [phone] Noemi Argueta NP [address] [place] [address] [facility] Start: 03-24-2024 End: 03-24-2024 Patient encounter procedure 03/24/2024 8:40 AM EDT Office Visit [facility] [address] [facility] [address] [place] [phone] Valentina Gregg MD [address] [facility] [address] [address] [facility] Start: 03-18-2024 Covid-19 Vaccine ( season) Covid-19 Vaccine ( season) [facility] Start: 03-18-2024 Covid-19 Vaccine ( season) Covid-19 Vaccine ( season) [facility] Start: 03-18-2024 Influenza vaccination Influ[facility] Start: 03-16-2024 End: 03-16-2025 Alanine aminotransferase [Enzymatic activity/volume] in Serum or Plasma by With P-5'-P Alanine Aminotransferase Lab Routine Mixed hyperlipidemia Expected: 03/16/2024 (Approximate), Expires: 03/16/2025 [facility] Service Area Work Phone: Comment on above: Expected: 03/16/2024 (Approximate), Expi res: 03/16/2025 Start: 03-16-2024 End: 03-16-2025 Aspartate aminotransferase [Enzymatic activity/volume] in Serum or Plasma by With P-5'-P Aspartate Aminotransferase Lab Routine Mixed hyperlipidemia Expected: 03/16/2024 (Approximate), Expires: 03/16/2025 [facility] Work Phone: Comment on above: Expected: 03/16/2024 (Approximate), Expi res: 03/16/2025 Start: 03-16-2024 End: 03-16-2025 Basic metabolic 2000 panel - Serum or Plasma Basic Metabolic Panel Lab Routine Essential hypertension, benign Expected: 03/16/2024 (Approximate), Expires: 03/16/2025 [facility] Work Phone: Comment on above: Expected: 03/16/2024 (Approximate), Expi res: 03/16/2025 Start: 03-16-2024 End: 03-16-2025 Lipid 1996 panel - Serum or Plasma Lipid Panel Lab Routine Mixed hyperlipidemia Expected: 03/16/2024 (Approximate), Expires: 03/16/2025 [facility] Work Phone: Comment on above: Expected: 03/16/2024 (Approximate), Expi res: 03/16/2025 Start: 03-16-2024 End: 03-16-2024 Patient encounter procedure 03/16/2024 10:10 AM EDT Office Visit [facility] [address] [phone] Josep Perdomo MD [address] [facility] [address] [place] [address] [facility] Start: 03-14-2024 Screening for malignant neoplasm of breast Mammogram [facility] Start: 12-24-2023 Hemoglobin A1c measurement Diabetes: Hemoglobin A1C [facility] Start: 07-18-2023 Depression Assessment Depression Assessment [facility] Start: 06-21-2023 FUV, Provider: Josep Perdomo, Status: Pen, Time: 1:50 PM FUV, Provider: Josep Perdomo, Status: Pen, Time: 1:50 PM [facility] 250 DO Work Phone: Start: 06-08-2023 Urine screening for protein Diabetes: Urine Protein Screening [facility] Start: 03-18-2023 Covid-19 Vaccine () Covid-19 Vaccine () [facility] Start: 03-18-2023 Influenza vaccination [facility] Start: 03-17-2023 Patient encounter procedure Outpatient Cardiology [place] [address] [facility] [address] Start: 17-Mar-2023 9:00 Amanda Saucedo [facility] [place] Start: 03-17-2023 ANUPAMA, Provider: Amanda Saucedo, Status: Pen, Time: 9:00 AM VIRFUVPRASHANTHE, Provider: Amanda Saucedo, Status: Pen, Time: 9:00 AM [place] [address] [place] Work Phone: Start: 01-07-2023 NURSEVST, Provider: NAJMA VIRAMONTES SHOE REPAIRER APPRENTICE 1,[id number], Status: Pen, Time: 10:00 AM NURSEVST, Provider: NAJMA VIRAMONTES SHOE REPAIRER APPRENTICE 1,[id number], Status: Pen, Time: 10:00 AM [facility] 250 DO Work Phone: Start: 11-30-2022 NURSEVST, Provider: NAJMA VIRAMONTES SHOE REPAIRER APPRENTICE 1,[id number], Status: Pen, Time: 1:00 PM NURSEVST, Provider: NAJMA VIRAMONTES SHOE REPAIRER APPRENTICE 1,[id number], Status: Pen, Time: 1:00 PM [facility] 250 DO Work Phone: Start: 10-06-2022 FUV, Provider: Josep Perdomo, Status: Pen, Time: 3:50 PM FUV, Provider: Josep Perdomo, Status: Pen, Time: 3:50 PM [facility] 250 DO Work Phone: Start: 08-22-2022 End: 10-22-2022 TYPE AND SCREEN,30 DAY TYPE AND SCREEN,30 DAY Blood Bank Routine Pre-op testing Expected: 08/22/2022 (Approximate), Expires: 10/22/2022 [facility] Work Phone: Comment on above: Expected: 08/22/2022 (Approximate), Expi res: 10/22/2022 Start: 08-19-2022 End: 10-19-2022 Bacteria identified in Urine by Culture URINE CULTURE Microbiology Routine Pre-op testing Expected: 08/19/2022 (Approximate), Expires: 10/19/2022 [facility] Work Phone: Comment on above: Expected: 08/19/2022 (Approximate), Expi res: 10/19/2022 Start: 08-19-2022 End: 10-19-2022 STAPH AUREUS PCR STAPH AUREUS PCR Lab Routine MRSA (methicillin resistant Staphylococcus aureus) Expected: 08/19/2022, Expires: 10/19/2022 [facility] Work Phone: Comment on above: Expected: 08/19/2022, Expires: Start: 07-18-2022 DEPRESSION ASSESSMENT DEPRESSION ASSESSMENT [facility] Start: 06-02-2022 End: 06-02-2022 [facility] Start: 06-01-2022 End: 08-01-2022 Basic metabolic 2000 panel - Serum or Plasma BASIC METABOLIC PNL Lab Routine Pre-op testing Expected: 06/01/2022, Expires: 08/01/2022 [facility] Work Phone: Comment on above: Expected: 06/01/2022, Expires: Start: 06-01-2022 End: 08-01-2022 CBC W Auto Differential panel - Blood CBC + DIFF Lab Routine Pre-op testing Expected: 06/01/2022, Expires: 08/01/2022 [facility] Work Phone: Comment on above: Expected: 06/01/2022, Expires: 3 Start: 06-01-2022 End: 08-01-2022 Hemoglobin A1c in Blood HGB A1C Lab Routine Pre-op testing Expected: 06/01/2022, Expires: 08/01/2022 [facility] Work Phone: Comment on above: Expected: 06/01/2022, Expires: 3 Start: 06-01-2022 End: 08-01-2022 Urinalysis complete panel - Urine URINALYSIS, WITH MICROSCOPIC Lab Routine Pre-op testing Expected: 06/01/2022, Expires: 08/01/2022 [facility] Work Phone: Comment on above: Expected: 06/01/2022, Expires: 3 Start: 05-13-2022 VIRFUVCARINA, Provider: Abdiaziz Nash, Status: Pen, Time: 3:00 PM VIRFURYAN, Provider: Abdiaziz Nash, Status: Pen, Time: 3:00 PM [facility] 250 DO Work Phone: Start: 04-22-2022 Patient encounter procedure [facility] [place] Start: 04-22-2022 VIRSINDI, Provider: Abdiaziz Nash, Status: Pen, Time: 9:00 AM VIRFUVHOME, Provider: Abdiaziz Nash, Status: Pen, Time: 9:00 AM [facility] [address] [place] Work Phone: Start: 04-01-2022 FUV, Provider: Josep Perdomo, Status: Pen, Time: 2:40 PM FUV, Provider: Josep Perdomo, Status: Pen, Time: 2:40 PM [facility] 250 DO Work Phone: Start: 04-01-2022 Patient encounter procedure [email or web address] Cardiology [place] Start: 03-19-2022 End: 03-20-2023 dexmedeTOMIDine 400 microgram/ NaCL 0.9% 100 mL Premix Infusion with Bolus from Bag . ; (PRECEDEX)IntraVenous Initial Dose Rate: 0.2 mcg/kg/hrMAX DOSE Rate = 1.5 mcg/kg/hrTitration Goal 1: RASS between 0 and -2Bidirectional Titration Dose: 25 % Every 30 MinutesNotes from Pharmacy: Initial DOSE Rate = 0.2 mcg/kg/hr = 5.85 mL/hr. Start: 19-Mar-2022 End: 19-Mar-2023 Ordered: 19-Mar-2022 Sachin Brannon [facility] Start: 03-19-2022 End: 03-20-2023 [facility] Comment on above: 1. Dilute 1.3 mL [...] When tolerating PO Start: 03-19-2022 End: 03-20-2023 [facility] Start: 03-19-2022 End: 03-20-2023 [facility] Start: 03-18-2022 Influenza vaccination [facility] Start: 02-02-2022 [facility], Provider: Josep Perdomo, Status: Pen, Time: 12:00 PM [facility], Provider: Josep Perdomo, Status: Pen, Time: 12:00 PM [facility] 250 DO Work Phone: Start: 02-02-2022 [facility] Work Phone: Start: 02-02-2022 [facility], Provider: Josep Perdomo, Status: Pen, Time: 10:00 AM [facility], Provider: Josep Perdomo, Status: Pen, Time: 10:00 AM [facility] 250 DO Work Phone: Start: 11-05-2021 COVID-19 VACCINE (4 - Booster for Moderna series) COVID-19 VACCINE (4 - Booster for Moderna series) [facility] Start: 09-01-2021 COVID-19 VACCINE (4 - Booster for Moderna series) COVID-19 VACCINE (4 - Booster for Moderna series) [facility] Start: 09-01-2021 COVID-19 VACCINE (4 - Moderna series) COVID-19 VACCINE (4 - Moderna series) [facility] Start: 07-18-2021 DEPRESSION ASSESSMENT DEPRESSION ASSESSMENT [facility] Start: 2021 RSV High Risk: (Elderly (60+) or Population) (1 - Risk 60-74 years 1-dose series) RSV High Risk: (Elderly (60+) or Population) (1 - Risk 60-74 years 1-dose series) [facility] Start: 2021 RSV patients and/or patients aged 60+ years (1 - 1-dose 60+ series) RSV patients and/or patients aged 60+ years (1 - 1-dose 60+ series) [facility] Start: 2021 RSV Vaccine (1 - 1-dose 60+ series) RSV Vaccine (1 - 1-dose 60+ series) [facility] Start: 2011 Pneumococcal vaccination Pneumococcal Vaccine (1 of 1 - PCV) [facility] Start: 2011 SHINGRIX VACCINE (1 of 2) SHINGRIX VACCINE (1 of 2) [facility] Start: 2011 Zoster Vaccines (1 of 2) Zoster Vaccines (1 of 2) [facility] Start: 08-13-2010 DTaP/Tdap/Td Vaccines (1 - Tdap) DTaP/Tdap/Td Vaccines (1 - Tdap) [facility] Start: 08-13-2010 Urine microalbumin profile DTaP,Tdap,Td Vaccine (1 - Tdap) [facility] Start: 2006 COLOGUARD (FIT-DNA) COLOGUARD (FIT-DNA) [facility] Start: 2006 Colonoscopy COLONOSCOPY [facility] Start: 2006 COLORECTAL CANCER SCREENING COLORECTAL CANCER SCREENING [facility] Start: [address] COLONOGRAPHY [facility] Start: 2006 FECAL OCCULT BLOOD FECAL OCCULT BLOOD [facility] Start: 2006 Lipid panel Lipid Screening [facility] Start: 2006 LIPID SCREEN LIPID SCREEN [facility] Start: 2006 Screening for malignant neoplasm of colon [facility] Start: 2006 SIGMOIDOSCOPY SIGMOIDOSCOPY [facility] Start: 2001 Mammography MAMMOGRAM [facility] Start: 2001 Screening for malignant neoplasm of breast [facility] Start: 1991 HPV TESTING HPV TESTING [facility] Start: 1991 Screening for malignant neoplasm of cervix [facility] Start: 1982 PAP TESTING PAP TESTING [facility] Start: 1982 Screening for malignant neoplasm of cervix [facility] Start: 1980 Urine microalbumin profile DTAP,TDAP,TD (1 - Tdap) [facility] Start: 1979 ANNUAL PCP TEAM CHRONIC DISEASE VISIT ANNUAL PCP TEAM CHRONIC DISEASE VISIT [facility] Start: 1979 Anxiety Screening Anxiety Screening [facility] Start: 1979 BP CONTROLLED (<130/80) BP CONTROLLED (<130/80) [facility] Start: 1979 Depression Screening Depression Screening [facility] Start: 1979 HEPATITIS C SCREENING HEPATITIS C SCREENING [facility] Start: 1979 Hepatitis C screening Hepatitis C Screening [facility] Start: 1979 HIV SCREENING HIV SCREENING [facility] Start: 1979 HIV screening HIV Screening [facility] Start: 1973 Adult depression screening assessment DEPRESSION SCREENING [facility] Start: 1962 MMR Vaccines (1 of 1 - Standard series) MMR Vaccines (1 of 1 - Standard series) [facility] Start: 1961 HIV screening HIV Screening [facility] Start: 1961 Lipid panel Lipid Panel [facility] Start: 1961 Screening for malignant neoplasm of colon [facility] Start: 1960 Thyroid stimulating hormone measurement TSH Level [facility] Start: 1960 Yearly Adult Physical Yearly Adult Physical [facility] MG Breast - bilatera l Screening Bilateral screening mammogram Imaging Routine Encounter for screening mammogram for breast cancer Ordered: 01/31/2025 [facility] [employer] Work Phone: Comment on above: Ordered: 01/31/2025 Patient Education Aortic Valve R eplacement, Transcatheter (DC) [facility] Work Phone: Patient referral [facility] Work Phone: Ther px 1/> areas ea ch 15 min aqua ther w/xerss [employer] EXERCISE Procedures Routine Status post revision of total knee, right Ordered: 10/15/2022 [facility] Work Phone: Comment on above: Ordered: 10/15/2022 [facility] Immunizations Immunization Date Immunization Notes Care Provider Spencer bryson 01-08-2025 tetanus toxoid, redu sabrina diphtheria toxoid, and acellular pertussis vaccine, adsorbed Guerline Lause [employer]IN CAN [employer]ED[employer] Work Phone: [facility] 03-30-2024 Influenza, injectabl e, Madin Nunda Canine Kidney, preservative free, quadrivalent Noemi Warchol [employer]IN CAN FEEDER Work Phone: [facility] 03-30-2024 influenza virus vaccine, unspecified formulation Guerline Lause [employer]IN CAN FEEDER Work Phone: [facility] 07-07-2021 Pfizer-BioNTech COVID-19 Vacc 30 MCG/0.3ML Intramuscular Suspension Oswaldo A Grewal Work Phone: [facility] 10-30-2020 Moderna COVID-19 Vaccine 100 MCG/0.5ML Intramuscular Suspension Oswaldo A Grewal Work Phone: [facility] 10-29-2020 Moderna SARS-CoV-2 Vaccination Guerline Lause TIN CAN FEEDER Work Phone: [facility] 10-03-2020 Moderna COVID-19 Vaccine 100 MCG/0.5ML Intramuscular Suspension Oswaldo A Grewal Work Phone: [facility] 10-02-2020 Moderna SARS-CoV-2 Vaccination Guerline Lause TIN CAN FEEDER Work Phone: [facility] 05-15-2014 influenza virus vaccine, split virus (incl. purified surface antigen) Guerline Obrien [employer]IN CAN FEEDER Work Phone: [facility] 05-15-2014 influenza virus vaccine, unspecified formulation Lucas Levy PA-C Work Phone: [facility] 05-15-2013 seasonal influenza, intradermal, preservative free Guerline Obrien [employer]IN CAN FEEDER Work Phone: [facility] 08-12-2010 tetanus and diphther ia toxoids, adsorbed, preservative free, for adult use (2 Lf of tetanus toxoid and 2 Lf of diphtheria toxoid) Guerline Obrien TIN CAN FEEDER Work Phone: [facility] Payers Date Payer Category Payer Managed Care (Private) [facility] [id number] 2022 Unknown 2021 Private Health Insurance [facility] [employer] [id number] 2021-Present [address] [address] [place] [address] PPO [id number] 2009 Private Health Insurance [id number] [id number] 1961 Unknown [id number] 2.16.840.1.321158.3.579. 2.593 1961 Unknown [id number] 2.16.840.1.316829.3.579. 2.593 1961 Unknown [id number] 2.16.840.1.802061.3.579. 2.593 1961 Unknown [id number] 2.16.840.1.419922.3.579. 2.593 1961 Unknown [id number] 2.16.840.1.719607.3.579. 2.593 1961 Unknown [id number] 2.16.840.1.834894.3.579. 2.356 1961 Unknown [id number] 2.16.840.1.179423.3.579. 2.356 1961 Unknown [id number] 2..840.1.426639.3.579. 2.356 1961 Unknown [id number] 2.840.1.658852.3.579. 2.356 1961 Unknown [id number] 2.840.1.048830.3.579. 2.356 1961 Unknown [id number] 2..840.1.294131.3.579. 2.356 1961 Unknown [id number] 2.840.1.663512.3.579. 2.718 1961 Unknown [id number] 2.840.1.540164.3.579. 2.1259 1961 Unknown [id number] 2.16840.1.464908.3.579. 2.1259 1961 Unknown [id number] 2.840.1.168344.3.579. 2.1259 1961 Unknown [id number] 2.16.840.1.493372.3.579. 2.1259 1961 Unknown [id number] 2.840.1.911793.3.579. 2.1259 1961 Unknown [id number] 2.16.840.1.081223.3.579. 2.1259 1961 Unknown [id number] 2.16.840.1.856718.3.579. 2.1259 1961 Unknown [id number] 2.16.840.1.971386.3.579. 2.1259 1961 Unknown [id number] 2.16.840.1.231523.3.579. 2.1259 1961 Unknown [id number] 2.16.840.1.034225.3.579. 2.1259 1961 Unknown [id number] 2.16.840.1.677190.3.579. 2.1259 1961 Unknown [id number] 2.16.840.1.584212.3.579. 2.1259 1961 Unknown [id number] 2.16.840.1.626700.3.579. 2.1246 1961 Unknown [id number] 2.16.840.1.228321.3.579. 2.1244 1959 Unknown [id number] 2.16.840.1.894003.19 1959 Unknown [id number] Self-pay Self Pay [id number] Unknown [employer] [id number] Unknown [employer] [id number] Social History Date Type Detail Facility Start: 06-12-2013 End: 01-09-2025 Tobacco smoking status NHIS Never smoked tobacco [facility] Start: 06-12-2013 End: 03-15-2025 Tobacco use and exposure Smokeless tobacco non-user [facility] Start: 02-05-2020 End: 12-09-2021 Alcohol intake Current non-drinker of alcohol (finding) [facility] Start: 02-05-2020 History SDOH Financial 5 [facility] Start: 02-05-2020 History SDOH Food Worry 1 [facility] Start: 02-05-2020 History SDOH Transpo rt Med 2 [facility] Start: 1960 Sex Assigned At Not on file C [facility] Start: 01-28-2020 End: 03-16-2024 Exposure to SARS-CoV-2 (event) Not sure [facility] Start: 02-28-2023 End: 03-15-2025 Caffeine use Caffeine use [facility] Comment on above: 2-3 cups coffee ilsa y; Start: 02-28-2023 End: 03-15-2025 Sex Assigned At [facility] Start: 1960 Sex Assigned At Female F [facility] Tobacco smoking consumption unknown [facility] Start: 06-11-2022 How hard is it for y ou to pay for the very basics like food, housing, medical care, and heating Not hard at all [facility] (I/We) worried corazon er (my/our) food would run out before (I/we) got money to buy more. Never true [facility] Start: 09-09-2023 End: 03-15-2025 Alcohol intake Lifetime non-drinker (finding) [facility] Work Phone: How often to you hav e a drink containing alcohol? Never [facility] Start: 11-25-2022 Alcohol Comment caffeine: 1-2 cups per day coffee, tea [facility] Sex Female (finding) [facility] Medical Equipment Procedure Code Equipment Code Equipment Origin al Text Equipment Identifier Dates Oamr Bn Co Hv 40g m - [id number] Start: 07-05-2013 Comment on above: Description: cobalt hv bone cement 40/20 Urm-Kh-J-Kind Implant - [id number] Start: 07-05-2013 Comment on above: Description: oxford twin pegged femoral Qrk-Rf-Y-Kind Implant - [id number] Start: 07-05-2013 Comment on above: Description: LIZA Peralta SERIES Insert Triathlon 5 10mm Tibial Bearing Condylar Stabilize Sterile Knee - [id number] Start: 02-04-2020 Baseplate Triathlon Tritanium 5 Tibial Knee - [id number] Start: 02-04-2020 Component Triathlon 33mm Tritanium 9mm Patellar Metal Backed Symmetric - [id number] Start: 02-04-2020 Component Triathlon 5 Pa Femoral Cruciate Retain Bead Knee Left - [id number] Start: 02-04-2020 Cement Simplex Bone High Viscosity - [id number] Start: 08-19-2022 Imp Knee Tib Ins Tri Sz5 11mm [id number] Start: 08-19-2022 Baseplate Triathlon 5 Claymont Cocr Tibial Total Stabilize Cemented Knee - [id number] Start: 08-19-2022 Cement Simplex Bone High Viscosity - [id number] Start: 08-19-2022 Component Triathlon 33mm X3 9mm Patellar Symmetric Knee Superior - [id number] Start: 08-19-2022 Component Triathlon 5 Femoral Cemented Posterior Stabilize Knee Right - [id number] Start: 08-19-2022 Peg Triathlon Fixation Modular Distal Femur Knee - [id number] Start: 08-19-2022 Goals Date Patient Goal Desired Activity /State Functional Status Date Assessment Result Facility 01-31-2025 Patient Health [facility] ionnaire 2 item (PHQ-2) [Reported] [facility] 02-02-2022 Functional status Patient at Baseline [facility] Work Phone: Functional observable [facility] Mental Status Date Assessment Result Facility 03-18-2022 Cognitive functi ons [id number] [facility] 02-02-2022 Cognitive function Cognitive Sta tus Patient at Baseline [facility] Work Phone: Clinical Notes 03-18-2012 to [...] discussion and plan. documented in this encounter [facility] Work Phone: 03-15-2025 Instructions Yue Hall LPN [...] be sent through Care Everywhere.Diet and health (German)documented in this encounter [facility] Work Phone: 02-26-2025 Telephone encounter Note Called pt to RS no answer LMTCB [facility] 02-26-2025 Miscellaneous Notes Called pt to RS no answer LMTCB documented in this encounter [facility] 01-31-2025 History of Presen t illness Narrative Family Medicine Note Subjective: Chief Complaint: CIM HPI: Virgilio Johnson presents to the office today for chronic illness management visit. She is due for A1C check which will be completed in office today. She is also due for lab work which has been sent to [facility]. She is also requesting medication refills be [...] for CIM . documented in this encounter [facility] 01-14-2025 Telephone encounter Note I sent the gabapentin 300 mg tid [facility] 01-14-2025 Miscellaneous Notes I sent the gabapentin 300 mg tid 01/14/25 pt requesting med refill be sent to [facility] pt asking for a 300 mg pill instead of 600 mg so pt doesn't have to cut pill in half pt states she takes 300 mg 3 times a day documented in this encounter [facility] 01-14-2025 Telephone encounter Note 01/14/25 pt requesting med refill be sent to [facility] pt asking for a 300 mg pill instead of 600 mg so pt doesn't have to cut pill in half pt states she takes 300 mg 3 times a day [facility] 01-09-2025 Evaluation note Diagnosis Onset Date Resolution Nondisplaced fracture of base of fifth metacarpal bone, left hand, initial acute January 09, 2025 2:00pm Nondisplaced fracture of base of fifth metacarpal bone, left hand, initial acute February 13, 2025 10:56am [facility] Work Phone: 1(277) 788-589106-25-2025 Evaluation note* Diagnosis Onset Date Resolution Status Admit Date Nondisplaced fracture of bas e of fifth metacarpal bone, left hand, initial acute January 09, 2025 2:00pm Nondisplaced fracture of bas e of fifth metacarpal bone, left hand, initial acute February 13, 2025 10:56am Nondisplaced fracture of bas e of fifth metacarpal bone, left hand, initial acute March 19, 2 025 4:09pm [facility] Work Phone: 1(354) 629-473405-02-2025 History of Present illness Narrative* Valentina Gregg [...] dermatitis bilateral eyelids-sinusitis Folliculitis RIGHT KNEE Glaucoma ([facility]/HCC) 2007 History of transcatheter aortic valve replacement (TAVR) 03/20/2022 Hypertension ([facility]/HCC) Irritable bowel disease Irritable bowel syndrome 2006 [...] reflexes: Carrol's absent. Ankle clonus absent. Coordination Kyrpwc-cd-pnxh, rapid alternating movements and xobc-gb-rpay normal bilaterally without dysmetria. Gait Normal casual, [...] by Valentina Gregg MD documented in this [facility]04-28-2025 Telephone encounter Note* Telephone Encounter - Jim Luna - 11/12/2024 3:37 PM EDT 11/12/24 pt requesting med refill be sent to [id number] Miscellaneous Notes* Telephone Encounter - Jim Luna - 11/12/2024 3:37 PM EDT 11/12/24 pt requesting med refill be sent to [facility] documented in this [facility]03-31-2025 Telephone encounter Note* Telephone Encounter - Fina Aguilera - 10/15/2024 10:20 AM EDT Patient states that she seen Noemi in September and she increased her Gabapentin to 600mg 3 times a day for a month and that she should call for refill after a month and go back to her Gabapentin 300mg 3 times a day. Liliam Garcia [facility] [id number] Miscellaneous Notes* Telephone Encounter - Fina Aguilera - 10/15/2024 10:20 AM EDT Patient states that she seen Noemi in September and she increased her Gabapentin to 600mg 3 times a day for a month and that she should call for refill after a month and go back to her Gabapentin 300mg 3 times a day. Liliam Garcia documented in this [facility]03-26-2025 Telephone encounter Note* Telephone Encounter - Heather Montoya - 10/10/2024 3:07 PM EDT Patient left message requesting refill of Ropinirole 0.25mg to be sent to [facility] in [place]. [facility] ChildrenTpgmslzodd73-41-7870 Miscellaneous Notes* Telephone Encounter - Heather Montoya - 10/10/2024 3:07 PM EDT Patient left message requesting refill of Ropinirole 0.25mg to be sent to [facility]. documented in this [facility]03-03-2025 History of Present illness Narrative* Noemi Argueta, TIN CAN FEEDER - 09/17/2024 8:00 AM EST SUBJECTIVE Virgilio [...] Next scheduled follow-up: CIM. documented in this encounterSh[facility]ers Hospitals for ChildrenOroyxvamau32-51-1328 Instructions* Patient Instructions* Noemi Argueta NP - [...] other anti-inflammatories whileon steroid. documented in this encounterShriners Hospitals for ChildrenYxquhbtmqi86-61-5904 History of Present illness Narrative* Noemi Argueta [...] before bedtime., Disp: 180 tablet, Rfl: 3 mggkjurg-uzbbxrtlm-rbyXAWBXxbelw (Polydex) 3.5-60449-8.1 ointment ophthalmic ointment, APPLY 1/2 INCH INTO [...] 2 diabetes mellitus with foot ulcer (CODE) ([facility]) - POCT glycosylated hemoglobin (Hb A1C) docked device Non-pressure chronic ulcer of other part of right foot with fat layer exposed ([facility]) Type 2 diabetes mellitus with diabetic chronic kidney disease ([facility]) Chronic kidney disease, stage 3a (HCC) ([facility]) Type 2 diabetes mellitus with diabetic cataract ([facility]) Carpal tunnel syndrome, bilateral - meloxicam [...] Next scheduled follow-up: CIM. documented in this encounterShriners Hospitals for ChildrenJiibpsggxz91-02-8675 Instructions* Patient Instructions* Noemi Argueta NP - [...] the plan of care. documented in this encounterShriners Hospitals for ChildrenSjxeqqjplp57-78-0733 History of Present illness Narrative* Valentina Gregg [...] daily meloxicam (MOBIC) 7.5 mg, Oral, Daily wmoojwbs-xscpklunj-usaVTGYGkegik (Polydex) 3.5-03039-8.1 ointment ophthalmic ointment APPLY 1/2 INCH INTO [...] dermatitis bilateral eyelids-sinusitis Folliculitis RIGHT KNEE Glaucoma ([facility]/HCC) 2007 History of transcatheter aortic valve replacement (TAVR) 03/20/2022 Hypertension ([facility]) Irritable bowel disease Irritable bowel syndrome [...] reflexes: Carrol's absent. Ankle clonus absent. Coordination Plkfms-dh-ldsp, rapid alternating movements and vdap-hg-obai normal bilaterally without dysmetria. Gait Normal casual, [...] Follow up 3 months. documented in this encounterShriners Hospitals for ChildrenKyundxpxrw07-01-1031 Telephone encounter Note* Telephone Encounter - Grace Gomez - 06/26/2024 8:36 AM EST Voicemail Received: I come in and see Dr Gregg on Tuesday, but I ran out of my DEBI [place] there. Themilligrams are 300 mg and I take them 3 times a day. I need that called in to [facility]. I am goingto run out before I come and see him on Tuesday. So I Wondered if you could call it into [facility] rob Garcia [facility] ChildrenGadjfnkexp34-03-7505 Miscellaneous Notes* Telephone Encounter - Grace Gomez - 06/26/2024 8:36 AM EST Voicemail Received: I come in and see Dr Gregg on Tuesday, but I ran out of my DEBI [place] there. Themilligrams are 300 mg and I take them 3 times a day. I need that called in to [facility]. I am goingto run out before I come and see him on Tuesday. So I Wondered if you could call it into [facility] documented in this encounterShriners Hospitals for ChildrenQkifxjfnrw36-03-2432 History of Present illness Narrative* Bin Bradford [...] dermatitis bilateral eyelids-sinusitis Folliculitis RIGHT KNEE Glaucoma ([facility]/HCC) 2007 History of transcatheter aortic valve replacement (TAVR) 03/20/2022 Hypertension ([facility]) Irritable bowel disease Irritable bowel syndrome [...] mouth Daily, Disp: 30 tablet, Rfl: 11 biklyvmj-xjapaaomi-zpqLIGSXymxef (Polydex) 3.5-57623-4.1 ointment ophthalmic ointment, APPLY 1/2 INCH INTO [...] are palpable bilateral, no edema noted Neuro: Cairo-David 5.07 monofilament intact, vibratory sensation intact Derm: The lesion has resolved no signs of infection. 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 Porokeratosis PLAN Patient is doing well follow up p.r.n. MALINA Kraft documented in this encounterShriners Hospitals for ChildrenIwktznsuwd66-15-7815 History of Present illness Narrative* MALINA Kraft [...] dermatitis bilateral eyelids-sinusitis Folliculitis RIGHT KNEE Glaucoma ([facility]) 2007 History of transcatheter aortic valve replacement (TAVR) 03/20/2022 [facility] Hypertension ([facility]) Irritable bowel disease Irritable bowel syndrome [...] mouth Daily, Disp: 30 tablet, Rfl: 11 qkawmkhn-sixlodyaz-korXTIFWzwxtt (Polydex) 3.5-08352-7.1 ointment ophthalmic ointment, APPLY 1/2 INCH INTO [...] are palpable bilateral, no edema noted Neuro: Cairo-David 5.07 monofilament intact, vibratory sensation intact Derm: [...] foot ulcer, right, with fat layer exposed ([facility]) 3. Cellulitis of foot, right PLAN [...] the area MALINA Kraft documented in this encounterShriners Hospitals for ChildrenMsvvxvknoq52-71-6787 History of Present illness Narrative* MALINA Kraft [...] dermatitis bilateral eyelids-sinusitis Folliculitis RIGHT KNEE Glaucoma ([facility]) 2007 History of transcatheter aortic valve replacement (TAVR) 03/20/2022 [facility] Hypertension ([facility]) Irritable bowel disease Irritable bowel syndrome [...] mouth Daily, Disp: 30 tablet, Rfl: 11 aogauyif-zxbxptedw-puiTCYULnralp (Polydex) 3.5-23932-9.1 ointment ophthalmic ointment, APPLY 1/2 INCH INTO [...] are palpable bilateral, no edema noted Neuro: Cairo-David 5.07 monofilament intact, vibratory sensation intact Derm: [...] the area MALINA Kraft documented in this encounterShriners Hospitals for ChildrenCwtyvgldxn25-15-5962 History of Present illness Narrative* MALINA Kraft [...] dermatitis bilateral eyelids-sinusitis Folliculitis RIGHT KNEE Glaucoma ([facility]) 2007 History of transcatheter aortic valve replacement (TAVR) 03/20/2022 Hypertension ([facility]) Irritable bowel disease Irritable bowel syndrome [...] bedtime., Disp: 90 capsule, Rfl: 2 HYDROcodone-acetaminophen (Salkum) 5-325 MG tablet, Take 1 tablet by [...] mouth Daily, Disp: 30 tablet, Rfl: 11 ybwwemnn-fjtxloxtf-kkkVODAUvqhlx (Polydex) 3.5-25109-5.1 ointment ophthalmic ointment, APPLY 1/2 INCH INTO [...] are palpable bilateral, no edema noted Neuro: Cairo-David 5.07 monofilament intact, vibratory sensation intact Derm: [...] 1 week MALINA Kraft documented in this encounterShriners Hospitals for ChildrenZthkmtmlct39-36-9309 History of Present illness Narrative* MALINA Kraft [...] secondary to the pain. They have attempted rgri-vjj-aemspui anti- inflammatory medications as well as posl-ufl-uzpodao wart treatment to no avail. Painful as [...] dermatitis bilateral eyelids-sinusitis Folliculitis RIGHT KNEE Glaucoma ([facility]) 2007 History of transcatheter aortic valve replacement (TAVR) 03/20/2022 [facility] Hypertension ([facility]) Irritable bowel disease Irritable bowel syndrome [...] mouth Daily, Disp: 30 tablet, Rfl: 11 uxhwloik-eagzwmwxu-hxkSFJSFoxpxo (Polydex) 3.5-54847-5.1 ointment ophthalmic ointment, APPLY 1/2 INCH INTO [...] < 3 seconds Digits 1-5 bilateral NEURO: Cairo David 5.07 monofilament was intact B/L. Vibratory [...] Bin Bradford DPM FACFAS documented in this encounterShriners Hospitals for ChildrenVvnzaeczyt82-57-2107 Telephone encounter Note* Telephone Encounter - Jim Luna - 05/14/2024 4:35 PM EDT 05/14/24 sent to nurse to review and send pt needs med sent to Liliam Garcia [facility] ChildrenFcnwoklrcj32-83-3350 Miscellaneous Notes* Telephone Encounter - Jim Luna - 05/14/2024 4:35 PM EDT 05/14/24 sent to nurse to review and send pt needs med sent to Liliam Garcia documented in this encounterShriners Hospitals for ChildrenXhlawovpaj08-57-3488 History of Present illness Narrative* Noemi Argueta, TIN CAN FEEDER - 03/30/2024 8:40 AM EDT Images from [...] mouth Daily, Disp: 30 tablet, Rfl: 11 nznadtxn-wbbxjzjjt-kbfUVHCRcltlw (Polydex) 3.5-13922-5.1 ointment ophthalmic ointment, APPLY 1/2 INCH INTO [...] 1.46 ng/dL [facility] CMP (CMP) (FOR REMOTE [facility] USE) Collection Time: 03/24/24 8:11 AM [...] (H) 0.55 - 1.02 mg/dL [facility] EGFR-AF GUYANESE >60 >=60 [facility] EGFR-NON AF GUYANESE 53 (L) >=60 BUN CREATININE RATIO 33.3 [...] 2 diabetes mellitus without complication, unspecified whether intermediate designer insulin use ([facility]) - POCT glycosylated hemoglobin (Hb A1C) docked device - POCT microalbumin manually resulted Immunization due - Flu vaccine, MDCK, quadrivalent, PF ([id number]) (Flucelvax single dose syringe) Primary hypertension (CMS/HCC) [...] scheduled follow-up: CIM . documented in this encounterShriners Hospitals for ChildrenNovppftpcv93-57-8863 Instructions* Patient Instructions* Noemi Argueta NP - [...] all medications as prescribed. documented in this encounterShriners Hospitals for ChildrenJfcebqesyt42-84-2976 History of Present illness Narrative* Valentina Gregg [...] (MAG-OX) 400 mg, Oral, 2 times daily ytigvswg-xlzzwrzeh-nhtQCUPJfhhhv (Polydex) 3.5-61585-3.1 ointment ophthalmic ointment APPLY 1/2 INCH INTO [...] reflexes: Carrol's absent. Ankle clonus absent. Coordination Awmegs-qf-fezd, rapid alternating movements and kudd-ab-darp normal bilaterally without dysmetria. Gait Normal casual, [...] Follow up 3 months. documented in this [facility]09-03-2024 Telephone encounter Note* Telephone Encounter - Grace Dawsontace - 03/20/2024 3:47 PM EDT PATIENT NEEDS REFILL OF GABAPENTIN BEFORE SAT APPOINTMENT SHE WILL NOT HAVE ENOUGH TO GET HER THROUGH UNTIL THEN. WAS ORIGINALLY SCHEDULED FOR THIS AST TUESDAY FOR F/U. [facility] ChildrenJurscelmue31-52-5567 Miscellaneous Notes* Telephone Encounter - Grace Jason - 03/20/2024 3:47 PM EDT PATIENT NEEDS REFILL OF GABAPENTIN BEFORE SAT APPOINTMENT SHE WILL NOT HAVE ENOUGH TO GET HER THROUGH UNTIL THEN. WAS ORIGINALLY SCHEDULED FOR THIS AST TUESDAY FOR F/U. documented in this [facility]08-30-2024 History of Present illness Narrative* Josep Perdomo [...] exam, discussion and plan. documented in this [facility] Work Phone: 1(429) 207-691108-30-2024 Instructions* Patient Instructions* Yue Hall LPN - [...] up afterwards Lab work [facility] Phone: 1(288) 571-134508-29-2024 Telephone encounter Note* Telephone Encounter - Guerline Obrien NP - 03/15/2024 2:50 PM EDT Please contact patient and have her complete lab work prior to her next office visit. She is also due for urine microalbumin. [facility] Work Phone: 1(814) 357-347208-29-2024 Miscellaneous Notes* Telephone Encounter - Guerline Obrien NP - 03/15/2024 2:50 PM EDT Please contact patient and have her complete lab work prior to her next office visit. She is also due for urine microalbumin. documented in this encounterShriners Hospitals for ChildrenEdvpsogebk98-21-2861 History of Present illness Narrative* Josep Perdomo [...] exam, discussion and plan. [facility] Work Phone: 1(884) 411-730302-23-2024 Instructions* Patient Instructions* Virgilio Euceda LPN - [...] instructions on dietary changes. documented in this encounterA[facility] Work Phone: 1(231) 822-954002-16-2024 NoteHNO ID: [id number] Author: LUCAS LEVY PA-C Service: ? Author Type: Physician Photo Stylist Type: Progress Notes Filed: 09/02/2023 10:42 Note [...] Lucas Levy PA-C September 02, 2023 10:36 [facility]02-16-2024 History of Present illness Narrative* Lucas [...] 02, 2023 10:36 AM documented in this encounterPomerene Hospital01-12-2024 NoteHNO ID: [id number] Author: LUCAS LEVY PA-C Service: ? Author Type: Physician Photo Stylist Type: Progress Notes Filed: 07/29/2023 12:44 Note [...] last few months. 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 [...] Lucas Levy PA-C July 29, 2023 11:08 [facility]01-12-2024 NoteHNO ID: [id number] Author: BHUMIKA CASIANO RT(R) Service: ? Author [...] BY: RT Lauren(R) July 29, 2023 10:36 [facility]08-31-2023 Chief complaint Narrative - Reported* VIRGILIO [...] 09:00 AM , for a telehealth visit. [facility] Work Phone: [phone]) 518-851808-20-2023 NoteHNO ID: [id number] Author: Violet Combs MD Service: ? Author Type: Physician Type: Progress Notes Filed: 03/06/2023 3:04 PM Note Text: see dictated note Violet Combs II, [facility]08-20-2023 History of Present illness Narrative* Violet Combs MD - 03/06/2023 3:03 PM EDT see dictated note Violet Combs II, MD documented in this encounterPomerene Hospital08-16-2023 Miscellaneous Notes* Telephone Encounter - Lucas Levy PA-C - 03/02/2023 10:52 AM EDT rx [facility] patient notified Lucas Levy PA-C documented in this encounterPomerene Hospital08-14-2023 NoteHNO ID: [id number] Author: Violet Combs MD Service: Orthopaedic Surgery Author Type: Physician Type: Progress Notes Filed: 2023 4:47 PM Note Text: [facility] [address] [place], [place] [address] CLINIC NOTE Department of Orthopaedics - [place] Violet Combs II, M.D. NAME: VIRGILIO JOHNSON CLINIC NO.: [id number] DATE OF SERVICE: 02/28/2023 CHIEF COMPLAINT: Recheck [...] II, M.D. Date Dictated: 03/04/2023 Date Typed: [facility] 03/04/2023 JOB# [id number] Campus Medical Center08-14-2023 NoteHNO ID: [id number] Author: Radha Le RT(R) Service: ? Author [...] BY: RT Aarti(R) February 28, 2023 10:38 [facility]05-15-2023 NoteHNO ID: [id number] Author: Lucas Levy PA-C Service: ? Author Type: Physician Photo Stylist Type: Progress Notes Filed: 11/29/2022 5:10 PM [...] the next few weeks. Also scheduled for [place] therapy sessions. She states pain is well [...] knee joint Informed Consent Consent Obtained: Written [place] Protocol A moment to CARE was completed. [...] with the patient and (more content not included)...[facility]04-19-2023 NoteHNO ID: [id number] Author: Lucas Levy PA-C Service: ? Author Type: Physician Photo Stylist Type: Progress Notes Filed: 11/11/2022 5:16 PM [...] Lucas Levy PA-C November 03, 2022 11:08 [facility]03-31-2023 NoteHNO ID: [id number] Author: Violet Combs MD Service: ? Author Type: Physician Type: Progress Notes Filed: 10/15/2022 2:27 PM Note Text: see dictated note Violet Combs II [facility]03-31-2023 History of Present illness Narrative* Violet Combs MD - 10/15/2022 2:24 PM EDT see dictated note Violet Combs II, MD documented in this encounterPomerene Hospital03-31-2023 NoteHNO ID: [id number] Author: Violet Combs MD Service: Orthopaedic Surgery Author Type: Physician Type: Progress Notes Filed: 10/18/2022 5:08 PM Note Text: [facility] [address] [place], [place] [address] CLINIC NOTE Department of Orthopaedics - Dilan Combs II, M.D. NAME: VIRGILIO JOHNSON CLINIC NO.: [id number] DATE OF SERVICE: 10/15/2022 CHIEF COMPLAINT: Recheck of right knee. Right revision TKR, 08/29/2022. Left TKR, 02/03/2022. The patient has excellent motion with her left total knee. ROM is 0 to 120 degrees. Right knee has flexion to 115 degrees, but lacks 7 to 10 degrees to full extension. Recommend we get her into some water therapy. Recommend water therapy at [facility], for stretching and strengthening exercises. She is scheduled to go back to work in about a month. We will see her back in 3 weeks. Dictated By: Violet Combs II, M.D. Date Dictated: 10/15/2022 Date Typed: [facility] 10/15/2022 JOB# [id number] [facility]02-21-2023 NoteHNO ID: [id number] Author: Lucas Levy PA-C Service: ? Author Type: Physician Photo Stylist Type: Progress Notes Filed: 09/07/2022 4:27 PM [...] Lucas Levy PA-C September 07, 2022 4:22 [facility]02-21-2023 History of Present illness Narrative * [...] 07, 2022 4:22 PM documented in this encounterPomerene Hospital02-21-2023 NoteHNO ID: [id number] Author: Shala Aguilar RT(R) Service: ? Author [...] BY: RT Binta(R) September 07, 2022 2:05 [facility]02-21-2023 Instructions* Patient Instructions* Lucas Levy PA-C [...] Ice quiets things down. documented in this encounterPomerene Hospital02-21-2023 History of Present illness Narrative* RT Ashlee(R) [...] 07, 2022 2:05 PM documented in this encounterPomerene Hospital02-17-2023 Miscellaneous Notes* Telephone Encounter - Lucas Levy [...] OARRS evaluation was appropriate. Rx sent to [facility]. documented in this encounterPomerene Hospital02-03-2023 NoteHNO ID: [id number] Author: Ella Pagan ([employer]) Service: ? Author Type: ? Type: Plan [...] by mouth three times daily. Ella Pagan ([employer]) PAGER: raisa August 20, 2022 3:01 [facility] DaytonBixzabxl45-06-4594 NoteHNO ID: [id number] Author: Jennifer Herring PA-C Service: Orthopaedic Surgery Author Type: Physician Photo Stylist Type: Progress Notes Filed: 08/20/2022 10:08 AM [...] (Hcc) Failed Total Knee Arthroplasty, Initial Encounter ([place], [facility]) Medication and Non-Pharmacologic VTE Prophylaxis/Anticoagulants Anticoagulant AND Antiplatelet Medications (From admission, onward) Start Dose Route Frequency Last Action Ordered Stop 08/20/22 0900 aspirin, enteric coated 81 mg tab(s) (Surgical Risk Categories) 81 mg ORAL 2 TIMES DAILY Given, 08/20 0824 08/19/22 1607 -- 08/19/22 1615 graduated compression stockings (az,ks) 08/19/22 1615 graduated compression stockings (az,ks) 08/19/22 1615 activity - mobilize patient ([place], [place]) VTE Prophylaxis: VTE prophylaxis appropriate POST OPERATIVE COMPLICATIONS: Complicated by: uneventful/none SIGNATURE: Jennifer Herring PA-C PATIENT NAME: Virgilio Johnson DATE: August 20, 2022 TIME: 10:06 [place] [facility] HospitalDxmoiafn47-94-0227 NoteHNO ID: [id number] Author: Roma Ospina RN Service: Care Management Author Type: Registered Nurse Type: Care Mgt Initial Assessment Filed: 08/20/2022 9:55 AM Note Text: CARE MANAGEMENT: ASSESSMENT AND DISCHARGE PLAN SERVICE DATE: August 20, 2022 SERVICE TIME: 9:53 AM PRIMARY CARE PHYSICIAN: Oswaldo Grewal MD Primary Contact: Extended Emergency Contact Information Primary Emergency Contact: Artis Sanches Address: [address] [place] [address] Mobile Relation: Spouse ADMISSION STATUS: Inpatient Insurance Provider: [facility] [employer] GENERIC NEEDS PRIOR TO DISCHARGE Needs Prior to Discharge: OT/PT Evaluation POTENTIAL TRANSITION PLANS Outpatient Therapy Based on clinical judgement, Care Management will address the following needs: Medical Patient's perception of need for this admission: necessary ADVANCE DIRECTIVES Current Advance Directive: None Warehouse Hand Attempted to Assist with AD Completion: Yes [...] discharge within 30 days: No PATIENT SCREEN Patient/B2B Account Executive Stated Goals: To return home to life [...] at this time. FREEDOM OF CHOICE EXPLAINED: [place] of Choice Given: No Reason Not Given: [...] appointment for outpatient PT August 24 near [facility]. Her will transport her home at [facility] to follow. SIGNATURE: Roma Ospina RN PATIENT NAME: Virgilio Johnson DATE: August 20, 2022 TIME: 9:53 AM CONTACT #: [phone] [id number] NoteHNO ID: [id number] Author: Chavez Cartagena RN Service: ? Author Type: Registered Nurse Type: Nursing Progress Note Filed: 08/19/2022 3:03 PM Note Text: Pt and family aware of pending admission to [address] [place], [place] [address]2-02-2023 Note HNO ID: [id number] Author: Alina Limon APRN.CRNA Service: Anesthesiology Author Type: Nurse Sonoscope Operator Type: Anesthesia Procedure Notes Filed: 08/19/2022 11:00 AM Note Text: ANESTHESIOLOGY PROCEDURE NOTE Peripheral Nerve Block General Information Procedure Start Time/Medication Administration: 08/19/2022 10:59 AM Procedure End time: 08/19/2022 10:59 AM Patient location during procedure: OR Timeout Performed Pre-procedure: timeout performed Consent Obtained: Yes 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, 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 Reason for [...] - 08/19/2022 10:59:00 AM SIGNATURE: Alina Limon APRN.AREA CLEANER PATIENT NAME: Virgilio Johnson DATE: August 19, 2022 TIME: 10:59 AM CSN: [id number] NoteHNO ID: [id number] Author: Alina Limon APRN.AREA CLEANER Service: Anesthesiology Author Type: Nurse Sonoscope Operator Type: Anesthesia Procedure Notes Filed: 08/19/2022 11:21 AM Note Text: ANESTHESIOLOGY PROCEDURE NOTE Spinal Block General Information Procedure Start Time/Medication Administration: 08/19/2022 10:50 AM Procedure End time: 08/19/2022 10:59 AM Patient location during procedure: OR Timeout Performed Pre-procedure: timeout performed Consent Obtained: Yes 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 and patient Reason for Block: primary surgical anesthetic Staffing Anesthesiologist: Guerline Botello MD AREA CLEANER: Alina Limon APRN.AREA CLEANER Performed by: anesthesiologist and AREA CLEANER Preparation Sterility Preparation: hand hygiene performed prior [...] August 19, 2022 TIME: 10:49 AM CSN: [id number] History of Past illness Narrative* Problem Noted Date Resolved Date Acute cystitis without hematuria 08/09/2022 08/19/2022 Last Assessment & Plan: Assessment: per Urine Culture, Pt. treated per susceptibility Pt. notified; Pt. reports is Asymptomatic Effusion of right knee 03/27/2021 3 Effusion of left knee 04/30/2020 08/19/2022 Knee pain 07/05/2013 08/19/2022 documented as of this encounter (statuses as of 09/03/2022) [facility]01-[facility] History of Past illness Narrative* Problem Noted Date Resolved Date Acute cystitis without hematuria 08/09/2022 08/19/2022 Last Assessment & Plan: Assessment: per Urine Culture, Pt. treated per susceptibility Pt. notified; Pt. reports is Asymptomatic Effusion of right knee 03/27/2021 3 Effusion of left knee 04/30/2020 08/19/2022 Knee pain 07/05/2013 08/19/2022 documented as of this encounter (statuses as of 09/07/2022) [facility]01-[facility] History of Past illness Narrative* Problem Noted Date Resolved Date Acute cystitis without hematuria 08/09/2022 08/19/2022 Last Assessment & Plan: Assessment: per Urine Culture, Pt. treated per susceptibility Pt. notified; Pt. reports is Asymptomatic Effusion of right knee 03/27/2021 3 Effusion of left knee 04/30/2020 08/19/2022 Knee pain 07/05/2013 08/19/2022 documented as of this encounter (statuses as of 09/08/2022) [facility]01-[facility] History of Past illness Narrative* Problem Noted Date Resolved Date Acute cystitis without hematuria 08/09/2022 08/19/2022 Last Assessment & Plan: Assessment: per Urine Culture, Pt. treated per susceptibility Pt. notified; Pt. reports is Asymptomatic Effusion of right knee 03/27/2021 Effusion of left knee 04/30/2020 08/19/2022 Knee pain 07/05/2013 08/19/2022 documented as of this encounter (statuses as of 10/15/2022) [facility]01-[facility] History of Past illness Narrative* Problem Noted Date Diagnosed Date Resolved Date Acute cystitis without hematuria 08/09/2022 08/19/2022 Last Assessment & Plan: Assessment: per Urine Culture, Pt. treated per susceptibility Pt. notified; Pt. reports is Asymptomatic Effusion of left knee 04/30/20202022 Knee pain 07/05/2013 08/19/2022 documented as of this encounter (statuses as of 03/02/2023) [facility] History of Past illness Narrative* Problem Noted Date Diagnosed Date Resolved Date Acute cystitis without hematuria 08/09/2022 08/19/2022 Last Assessment & Plan: Assessment: per Urine Culture, Pt. treated per susceptibility Pt. notified; Pt. reports is Asymptomatic Effusion of left knee 04/30/20202022 Knee pain 07/05/2013 08/19/2022 documented as of this encounter (statuses as of 03/06/2023) [facility]01-[facility] History of Past illness Narrative* Problem Noted Date Diagnosed Date Resolved Date Acute cystitis without hematuria 08/09/2022 08/19/2022 Last Assessment & Plan: Assessment: per Urine Culture, Pt. treated per susceptibility Pt. notified; Pt. reports is Asymptomatic Effusion of left knee 04/30/20202022 Knee pain 07/05/2013 08/19/2022 documented as of this encounter (statuses as of 09/02/2023) [facility]01-[facility] History of Present illness Narrative* Violet Combs MD - 08/05/2022 12:10 PM EST SEE DICTATED NOTE Violet Combs II, MD documented in this encounterPomerene Hospital01-19-2023 History and physical note * Rosa Stoddard [...] fevers. Neuro: No history of TIA's, stroke, DRY FINISHER tumor, impaired sensorium, hemiplegia, paraplegia or quadraplegia. [...] or incontinence,, stones or chronic kidney disease BUSINESS OFFICE ASSISTANT: Negative for abnormal vaginal bleeding, abnormal vaginal [...] Dr. Josep Perdomo ( last visit 04/01/2022 [facility], next visit 02/2023)Per office Visit: Patient requesting preoperative risk assessment for knee surgery. I advised that she can proceed with surgery after new year in 3 months . [LETTER] for Cardiac Risk Assessment sent. >PCP for medical Risk Assessment(last visit 08/02/2022) [LETTER] [07/26/2022 LETTER] scanned into [facility] re: BP The Following Tests/Procedures Have Been Initiated: Labs ordered in [facility] per Surgeon ( dated 06/01/2022) + Orders [...] 2022 TIME: 8:30 AM documented in this encounterPomerene Hospital01-18-2023 Instructions* Patient Instructions* Rosa Stoddard APRN.CNP - 08/04/2022 1:56 PM EST PATIENT PREOPERATIVE INSTRUCTIONS Violet Combs MD has scheduled you for your procedure at this surgery center: [facility]: [phone] --[address] [place] [address]. Please enter through the entrance closest to [...] or other anticoagulants without consulting with your global safety officer or prescribing physician. - Stop Vitamin E, [...] Procedures: - YOU MUST HAVE A RESPONSIBLE PIPE INSULATOR HELPER TAKE YOU HOME. A RETAIL BUYER OR FISCAL MANAGER CANNOT BE MADE A RESPONSIBLE PIPE INSULATOR HELPER. - We recommend that a responsible person [...] Advance Directive, please fax a copy to [phone] or email to for it to be [...] your chart that day. documented in this encounterPomerene Hospital01-18-2023 Nurse Note* Aline David RN - 08/04/2022 9:32 AM EST ORTHOPAEDIC SURGERY PRE-OP PATIENT Virgiilo Johnson is a 62 year old female PROCEDURE: Revision of right Total Knee PROCEDURE DATE: 08/19/22 CHECKLIST: Informed Consent: Yes- In [place]: No Pre-op Skin Preparation Cloths & [...] Effects -Afterhours Number Given- page ortho resident ceiling insulation blower at [phone] METHOD OF INSTRUCTION: Individual instruction, Written instruction [...] -Call office if questions/concerns -Afterhour for resident ceiling insulation blower INFECTION MANAGEMENT: -Signs and symptoms of an infection -Importance of contacting the physician MEDICATION SIDE EFFECTS: -Side effects associated with the medication that warrant a call to the physician WOUND CARE: -Correct procedure to perform wound care DISCHARGE PLAN: -Patient referred to rapid recovery program and Kent of Choice was offered to Patient about [...] plans to go home with OP-PT at [facility]. Patient has walker Yes , cane [...] time. Aline David, RN documented in this encounterPomerene Hospital11-15-2022 History of Present illness Narrative* Violet Combs MD - 06/01/2022 7:48 AM EST see dictated note Violet Combs II, MD documented in this encounterPomerene Hospital10-27-2022 Chief complaint Narrative - Reported* VIRGILIO JOHNSON [...] 03:00 PM , for a telehealth visit. [facility] Work Phone: [phone]) 146-926509-27-2022 Miscellaneous Notes* Telephone Encounter - Ann Hunter - 04/13/2022 4:02 PM EDT Resolved. Spoke with pt today. Form is revised and faxed today to [employer]. See FYI for details. * Telephone Encounter - Aleida Mckenzie - 04/01/2022 11:57 AM EDT Patient calling. She would request her intermittent FMLA be extended again while her cardiac issuesare being addressed. Please call her at [phone] to advise. Thank you. PHYLLIS Dejesus, [facility] Coordinate Measuring Machine Programmer Please note: Please do not re-route phone encounters back to this agent, please send to appropriateoffice pool. Agent works in call center and cannot complete patient specific tasks. documented in this encounterPomerene Hospital09-03-2022 NoteSend Summary: Discharge Summary Providers: Provider RoleProvider Name ReferringJosep Perdomo AttendingLashon Longoria Brian A Note Recipients: Oswaldo Grewal MD - [id number] [] Lashon Longoria MD Traboulssi, Mourhaf, MD - [phone] [preferred] Discharge: Summary: Admission Date: .19-Mar-2022 08:18:00 Discharge Date: 20-Mar-2022 Attending Physician at Discharge: Lashon Longoria Admission Reason: -s/p TAVR w/ c/f injury to catheterization sites in s/o restless leg syndrome (now sedated requiring intubation)(1) Final Discharge Diagnoses: S/P TAVR (transcatheter aortic valve replacement) Procedures: TAVR (03/19) Condition at Discharge: Satisfactory Disposition at Discharge: .Home Vital Signs: T PRBPMAPSpO2 Value36.14474217/170992% Date/Time03/20 16:009 13:009 13:0093 13:0093 13:0093 8:00 Range(35.9C - 36.6C ) (57 - 85 ) (13 - 31 ) (101 - 186 )/ (34 - 84 ) (54 - 110 ) (91% - 100% ) As of 20-Mar-2022 00:00:00, patient is on 2 L/min of oxygen via room air. Date: Weight/Scale Type:Height: 19-Mar-2022 17:60650 kg / tka306.1 cm Physical Exam: General: no acute distress, [...] leg syndrome, and HTN. Initially presented to [facility] (03/19) for scheduled TAVR for severe [...] valve (would be noted but would not global climate change analyst regardless of findings). This was ordered but unable to be obtained given limited CT access on the weekend and extensive emergent CTs ordered from ED. Given CT BARB was unlikely to happen on day of anticipated discharge and results would not global climate change analyst, Ms. Johnson was discharged home. Cleared for [...] up to solid food (more content not included)...[facility]09-02-2022 Note Service: Critical Care Service: ServiceCICU History [...] leg syndrome, and HTN. Initially presented to [facility] (03/19) for scheduled TAVR for severe [...] Objective: Objective Information: Objective Information T PRBPMAPSpO2 Value35.15249189/132018% Date/Time03/19 16: 18: 18: 18: 18: 18:00 Range(35.9C - 35.9C ) (61 - 69 ) (14 - 14 ) (150 - 161 )/ (61 - 62 ) (86 - 89 ) (95% - 97% ) As of 19-Mar-2022 16:30:00, patient is on 30% oxygen via ventilator assisted. Pain reported at 03/19 16:30: 5 = Moderate Date: Weight/Scale Type: 19-Mar-2022 17:72428 kg / bed Physical Exam Narrative: Physical [...] Hours 2. Atropine Injectable: (more content not included)...[facility]09-02-2022 NoteDate of Procedure: March 19, 2022 Pre-operative Diagnosis: 1. Symptomatic severe aortic stenosis 2. Hypertension 3. Morbid obesity 4. Glaucoma Post-Operative Diagnosis: 1. Symptomatic severe aortic stenosis 2. Hypertension 3. Morbid obesity 4. Glaucoma Procedure: 1) Transcatheter Aortic Valve Replacement (29 mm Medtronic Evolut FX SN: [id number]) via right femoral artery 2) Percutaneous placement of balloon tipped pacing catheter (Right internal jugular vein) 3) Left heart catheterization including left ventricular end diastolic pressure 4) Percutaneous balloon aortic valvuloplasty (18 mm True Balloon) 5) Percutaneous pre-close of the right and left common femoral artery Surgeon: Mal Hargrove MD Fisherman Helper: Roxann Winchester MD; Wiliam Jeffries MD; Sharon Esparza MD Indications: Mrs Johnson is an 62 year old woman who is a patient of Dr. Oswaldo Grewal; Dr. Perdomo is their global safety officer, The patient presents with need for reoperative [...] heart block throughout the case. Co-Planar view: SAUDI ARABIAN 15; WINDSHIELD TECHNICIAN 20 Cusp overlap view: DOOLEY 1; CAU 10 Procedure details: After informed consent was obtained, and all questions asked and answered to the patient's satisfaction, they were brought back to the cardiology catheterization laboratory and placed on the Accessibility Lift Technician table. A timeout was performed with the correct patient, correct procedure, the correct laterality, timing and dosage of antibiotics, the availability of blood products, and all correct equipment was verified as being present prior to beginning the case. Ultrasound guidance was utilized to place a 7 Maltese locking sheath in the right internal jugular [...] technique. This was exchanged for an 8 Maltese sheath, and then 2 Pro-glide Perclose sutures were placed. At this point we electively, urgently intubated the patient. Next the right common femoral artery was dilated to a 14 Maltese size, and a 14 Maltese sheath was placed in the right common [...] removed from the body. Next the 14 Maltese sheath was removed from the right common femoral artery, over the safari wire, and the delivery system and valve replaced bareback into the right common femoral artery. The valve was then advanced on the delivery system through to the ascending aorta, and we verified our correct projection. The evolute valve was then advanced across the knik aortic valve, and slowly this was deployed as the pacemaker was set at 15 (more content not included)... [facility]09-02-2022 NoteClinical Note - Pharmacy v2: Education: Document TopicMedication Education MedicationMeds to Beds: Patient accepts Meds to Beds service at discharge, please send prescriptions to [facility]. Sources used to confirm home medication list: Patient interview Aspirin: none Statin: atorvastatin 10 mg daily P2Y12 inhibitor: none Anticoagulant: none Medication reconciliation complete Please reach out via [employer] for questions Narcisa Estevez, PGY-1 Inpatient Pharmacist [facility] Is This Intervention Medication Reconciliation Relatedyes Time Mhaqwpin67-23 minutes Additional NotesDrug Name: amLODIPine 5 mg [...] Drug Reaction: Unknown Electronic Signatures: Funmi Wyman ([facility]) (Signed 20-Mar-2022 08:14) Co-Signer: Education, Allergy Narcisa Esetvez ([facility]) (Signed 19-Mar-2022 16:30) Authored: Education, Allergy Last Updated: 20-Mar-2022 08:14 by Funmi Wyman ([facility] [place])[facility]09-02-2022 NoteHistory of Present Illness: HPI: Cardio: Dr. [...] 12 RCA 15 SOV STJ LVOT 20 SAUDI ARABIAN 15 CRAN 12 Attestation: Note Completion: I [...] the note. I personally evaluated the patient [id number] Comments/ Additional Findings 1. Severe aortic stenosis [...] Completion Last Updated: 20-Mar-2022 08:14 by Roxann [place])[facility]08-08-2022 Evaluation note* Encounter Date Diagnosis Assessment Notes [...] COVID POSITIVE education handout discharge instructions. given. [employer] Other 06-06-2022 Nurse Note* Aline David RN - 12/21/2021 10:48 AM EDT ORTHOPAEDIC SURGERY PRE-OP PATIENT Virgilio Johnson is a 61 year old female PROCEDURE: Revision of right Total Knee PROCEDURE DATE: 01/05/22 CHECKLIST: Informed Consent: Yes- In [facility]: No Pre-op Skin Preparation Cloths & [...] Effects -Afterhours Number Given- page ortho resident ceiling insulation blower at [phone] METHOD OF INSTRUCTION: Individual instruction, Written instruction [...] -Call office if questions/concerns -Afterhour for resident ceiling insulation blower INFECTION MANAGEMENT: -Signs and symptoms of an infection -Importance of contacting the physician MEDICATION SIDE EFFECTS: -Side effects associated with the medication that warrant a call to the physician WOUND CARE: -Correct procedure to perform wound care DISCHARGE PLAN: -Patient referred to rapid recovery program and [place] [facility] [place] was offered to Patient about [...] plans to go home with OP-PT at [facility]. Patient has walker Yes , cane [...] time. Aline David RN [facility] Miscellaneous Notes* Telephone Encounter - Emy Bunn LPN - 12/15/2021 11:46 AM EDT Patient aware of below. Emy Bunn LPN December 15, 2021 11:47 AM * Telephone Encounter - Yudith Hobson APRN.BELLHOP SERVICE CAPTAIN - 12/11/2021 9:40 AM EDT Reviewed patients labs she is positive for a UTI. No symptoms present. Sent atb to her preferred pharmacy. Patient is also scheduled for ECHO on 12/17 at [facility] for heart murmur. This was ordered byNP in PCP office. Will need to obtain results prior to procedure. [place]. Yudith Hobson APRN.EFFIE documented in [facility]03-06-2022 Evaluation note* Constitutional: Well developed, awake/alert/oriented x3, [...] and reflexes, normal strengthPsychological: Anxious and tearful [facility]02-21-2022 Evaluation note* Encounter Date Diagnosis Assessment Notes [...] Patient care instructions given in writting by [facility] Home document. [employer] Other 07-19-2021 History of Present illness Narrative* [...] 02, 2021 10:01 AM documented in [facility]08-12-2020 History of Present illness Narrative* Thanh ThorneRt)Valentin [...] 27, 2020 10:09 AM documented [facility]09-[facility] History general Narrative - Reported* Type Description Date Medical History Heart Murmur Medical History Pure hypercholesterolemia Medical History Benign essential HTN Medical History restless leg syndrome Surgical History right knee ARTHROSCOPY 03/2012 Surgical History Partial RT knee replacement 2012 Hospitalization History see above hx [employer] Other Evaluation noteNo assessment information available [facility] Work Phone: Evalucndvc note* Diagnosis S/P right unicompartmental knee replacement- [...] osteoarthrosis, lower leg [facility]* Diagnosis MRSA (methicillin resistant Staphylococcus aureus)- Primary Methicillin resistant Staphylococcus aureus in conditions classified elsewhere and of unspecified site S/P right unicompartmental knee replacement Knee joint replacement by other means Failed total knee arthroplasty, sequela S/P right unicompartmental knee replacement Knee joint replacement by other means Primary osteoarthritis of right knee Primary localized osteoarthrosis, lower leg documented in this encounter [facility]* Diagnosis Preop examination- Primary Preoperative examination, [...] osteoarthrosis, lower leg documented in this encounter [facility] note* Diagnosis S/P revision of total knee, right- Primary Postoperative pain Other acute postoperative pain [facility] in this encounter [facility]* Diagnosis S/P revision of total knee, right- Primary documented in this encounter [facility]* Diagnosis Status post revision of total knee, right- Primary documented in this encounter [facility]* Diagnosis S/P right unicompartmental knee replacement Knee joint replacement by other means Status post left knee replacement documented in this encounter [facility] note* Diagnosis Status post revision of total knee, right- Primary Status post left knee replacement documented in [facility] encounter [facility]* Diagnosis Aftercare following right knee joint replacement surgery- Primary Status post revision of total knee, right Status post left knee replacement documented in this encounter [facility] note* Diagnosis Essential hypertension, benign- Primary S/P TAVR (transcatheter aortic valve replacement) Mixed hyperlipidemia Dyspnea, unspecified type BMI 35.0-35.9,adult documented in this encounter [facility] Work Phone: Evaluation note* [...] left knee replacement documented in this encounter [facility] note* Diagnosis Preop examination- Primary Preoperative [...] left knee replacement documented in this encounter [facility] note* Diagnosis Preop examination- Primary Preoperative [...] total knee, right documented in this encounter [facility] note* Diagnosis Preop examination- Primary Preoperative [...] hematuria Acute cystitis documented in this encounter [facility] note* Diagnosis Preop examination- Primary Preoperative [...] hematuria Acute cystitis documented in this encounter [facility] note* Diagnosis Preop examination- Primary Preoperative [...] hematuria Acute cystitis documented in this encounter [facility] note* Diagnosis Preop examination- Primary Preoperative [...] hematuria Acute cystitis documented in this encounter [facility] note* Diagnosis Preop examination- Primary Preoperative [...] hematuria Acute cystitis [facility] Diagnosis Irritable bowel syndrome, unspecified type documented in this encounter [facility]* Diagnosis Neoplasm of uncertain behavior of skin- Primary Verruca plantaris Plantar wart Right foot pain Pain in soft tissues of limb 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 Benign neoplasm of unknown origin documented in this encounter [facility]* Diagnosis Cellulitis of foot, right- Primary Abscess of right foot Cellulitis and abscess of foot, except toes Right foot pain Pain in soft tissues of limb documented in this encounter [facility]* Diagnosis Cellulitis of foot, right- Primary Chronic foot ulcer, right, with fat layer exposed (CMS/HCC) Venous insufficiency (chronic) (peripheral) Unspecified venous (peripheral) insufficiency documented in this encounter [facility]* Diagnosis Neoplasm of uncertain behavior of skin- Primary Venous insufficiency (chronic) (peripheral) Unspecified venous (peripheral) insufficiency Chronic foot ulcer, right, with fat layer exposed (CMS/HCC) Cellulitis of foot, right documented in this encounter [facility]* Diagnosis Neoplasm of uncertain behavior of skin- Primary 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 documented in this encounter [facility]* Diagnosis Mixed hyperlipidemia- Primary Essential hypertension, benign BMI 35.0-35.9,adult Dyspnea, unspecified type S/P TAVR (transcatheter aortic valve replacement) Never smoked tobacco documented in this encounter [facility] Work Phone: Evaluation note* Diagnosis Restless legs syndrome Restless legs syndrome (RLS) [facility]* Diagnosis Carpal tunnel syndrome, bilateral- Primary Carpal tunnel syndrome RLS (restless legs syndrome) Restless legs syndrome (RLS) documented [facility]* Diagnosis Adult general medical examination- Primary Unspecified general medical examination Atherosclerosis of aorta ([facility]) Atherosclerosis of aorta Type 2 diabetes mellitus without complication, unspecified whether intermediate designer insulin use ([facility]) Immunization due Primary hypertension ([facility]) Unspecified essential hypertension Anemia, unspecified type Hypomagnesemia Disorders of magnesium metabolism documented [facility]* Diagnosis RLS (restless legs syndrome) Restless legs syndrome (RLS) Carpal tunnel syndrome, bilateral Carpal tunnel syndrome documented [facility]* Diagnosis Type 2 diabetes mellitus with foot ulcer (CODE) ([facility])- Primary Non-pressure chronic ulcer of other part of right foot with fat layer exposed ([facility]) Type 2 diabetes mellitus with diabetic chronic kidney disease ([facility]) Chronic kidney disease, stage 3a (HCC) ([facility]) Type 2 diabetes mellitus with diabetic cataract ([facility]) Type II or unspecified type diabetes mellitus with ophthalmic manifestations, not stated as uncontrolled Carpal tunnel syndrome, bilateral Carpal tunnel syndrome Irritable bowel syndrome, unspecified type Restless legs syndrome Restless legs syndrome (RLS) Hypothyroidism (acquired) ([facility]) Unspecified hypothyroidism Primary hypertension ([facility]) Unspecified essential hypertension Hypertriglyceridemia ([facility]) Pure hyperglyceridemia Type 2 diabetes mellitus with diabetic cataract, without long-term current use of insulin ([facility]) [E11.36] documented in this encounter [facility] [...] syndrome, unspecified type documented in this encounter [facility]* Diagnosis Acute left-sided low back pain with left-sided sciatica RLS (restless legs syndrome) Restless legs syndrome (RLS) Carpal tunnel syndrome, bilateral Carpal tunnel syndrome documented in this encounter [facility]* Diagnosis Onset Date Resolution Status Admit Date Nondisplaced fracture of bas e of fifth metacarpal bone, left hand, initial acute January 09, 2025 2:00pm [facility] Work Phone: Evaluation note* Diagnosis RLS (restless legs syndrome)- Primary Restless legs syndrome (RLS) documented in this encounter [facility]* Diagnosis Acute left-sided low back pain with left-sided sciatica documented in this encounter [facility]* Diagnosis Type 2 diabetes mellitus without complication, without long-term current use of insulin (HCC)- Primary Primary hypertension Unspecified essential hypertension Hypertriglyceridemia Pure hyperglyceridemia Restless legs syndrome Restless legs syndrome (RLS) Encounter for screening mammogram for breast cancer Irritable bowel syndrome, unspecified type Gastroesophageal reflux disease without esophagitis Esophageal reflux documented in this encounter [facility]* Diagnosis Essential hypertension, benign S/P TAVR (transcatheter aortic valve replacement) documented in this encounter [facility] Work Phone: Evaluation note* Diagnosis S/P TAVR (transcatheter aortic valve replacement)- Primary Essential hypertension, benign Mixed hyperlipidemia BMI 34.0-34.9,adult Never smoked tobacco documented in this encounter [facility] Work Phone: History of Present illness Narrative* [...] * 4. Follow-up after testing is done [facility] [employer] DO Work Phone: History of Present illness [...] 1.04, Grad peak/mean 70/37, DI 0.32 * [facility] (02/02/2022): No CAD * CT: 03/08/2022 * MRI: 03/08/2022 * Dental assessment: Regular appointments * STS Score - AVR: Risk of mortality: 1.58% [id number] [place] [address] [place] Work Phone: History [...] 1.04, Grad peak/mean 70/37, DI 0.32 * [facility] (02/02/2022): No CAD * CT: 03/08/2022 * MRI: 03/08/2022 * Dental assessment: Regular appointments * STS Score - AVR: Risk of mortality: 1.58% -CT [facility] [address] [place] Work Phone: History of [...] Score - AVR: Risk of mortality: 1.58% LE-Hnppivzzvp-XNX [place] [address] [place] Work Phone: History of [...] notify me * 6. Follow-up in 6-month [facility] 250 DO Work Phone: history of Present [...] heart failure goals. Due For: an echocardiogram. [facility] Work Phone: History of Present illness [...] * 5. Return back in 9 months [facility] 250 DO Work Phone: History of [...] check and a BMP in 6 weeks [facility] [address] DO Work Phone: History of [...] heart failure goals. Due For: an echocardiogram. [facility] Work Phone: Hospital Discharge instructions* Activity:activity as [...] dischargeYou will follow up with your primary global safety officer in 6-10 weeksYou have been given the [...] have any concerns, you may contact the Accessibility Lift Technician orif any of these symptoms become excessive, contact your global safety officer or go to the emergency room. No [...] Up Appointment 2:Physician/Dept/Service: 1 month Structural Heart TIN CAN FEEDER follow-upScheduled Date/Time: 22-Apr-2022 09:00Location: [facility] [email or web address] ([place] [employer]tav[facility]alloway ) (if you need to change the appointment)Comments: You have been given the order requisition for the 1 month ECHO at the time of your discharge. Please call and schedule this ECHO at your LOCAL center (no sooner than 23 days after your procedure date). * Follow Up Appointment 3:Physician/Dept/Service: 1 year Structural Heart [employer]IN CAN FEEDER follow-upScheduled Date/Time: 17-Mar-2023 09:00Location: [facility] [email or web address] ( [place] [employer]/anniecnp ) (if you need to change the appointment) [facility] - Pending Review Specialty Diagnoses / Procedures Referred By Contgena t Referred To Contact Physical Therapy Diagnoses S/P right unicompartmental knee replacement Primary osteoarthritis of right knee Procedures CONSULT TO PHYSICAL THERAPY Violet Combs MD [address] [place] [address] Referral ID Status Reason Start Date Expiration Date V isits Requested Visits Authorized [id number] Pending Review 06/01/2022 08/30/2022 1 1 * Diagnostic Procedure Only (Routine) - Closed Specialty Diagnoses / Procedures Referred By Contac t Referred To Contact XR IMAGING Diagnoses S/P right unicompartmental knee replacement Primary osteoarthritis of right knee Procedures XR KNEE GENERAL 4V AP BOTH/PA BOTH/LAT/MERC BILATERAL RADIOLOGIC EXAM KNEE COMPLETE 4/MORE VIEWS Violet Combs MD [address] [place] [address] Xr Imaging Referral ID Status Reason Start Date Expiration Date V isits Requested Visits Authorized [id number] Closed Auto-Generate d Referral 05/26/2022 06/25/2023 1 1 [facility] for referral (narrative)* Diagnostic Procedure Only (Routine) - Closed Specialty Diagnoses / Procedures Referred By Contac t Referred To Contact XR IMAGING Diagnoses S/P revision of total knee, right Procedures XR KNEE POST OP 3V AP/LAT/MERCHANT RIGHT RADIOLOGIC EXAMINATION KNEE 3 VIEWS Lucas Levy PA-C [address] [place] [address] Xr Imaging Referral ID Status Reason Start Date Expiration Date V isits Requested Visits Authorized [id number] Closed Auto-Generate d Referral 09/06/2022 10/06/2023 1 1 [facility] for referral (narrative)* Diagnostic Procedure Only (Routine) - Closed Specialty Diagnoses / Procedures Referred By Contac t Referred To Contact XR IMAGING Diagnoses Status post revision of total knee, right Status post left knee replacement Procedures XR KNEE POST OP 3V AP/LAT/MERCHANT BILATERAL RADIOLOGIC EXAMINATION KNEE 3 VIEWS Violet Combs MD [address] [place] [address] [place] [address] Referral ID Status Reason Start Date Expiration Date V isits Requested Visits Authorized [id number] Closed Auto-Generate d Referral 02/25/2023 03/26/2024 1 1 [facility] for referral (narrative)* Consultation (Routine) - Authorized Specialty Diagnoses / Procedures Referred By Dany manrique Referred To Contact Cardiology Diagnoses Essential hypertension, benign Procedures Follow Up In Cardiology Josep Perdomo MD [address] [facility] [address] [place] [address] Josep Perdomo MD [address] [facility] [address] [place] [address] Referral ID Status Reason Start Date Expiration Date V isits Requested Visits Authorized [id number] Authorized 09/09/2023 09/08/2024 1 1 [facility] Work Phone: [facility] for referral (narrative)* Diagnostic Procedure Only (Routine) - Closed Specialty Diagnoses / Procedures Referred By Dany manrique Referred To Contact XR IMAGING Diagnoses Status post revision of total knee, right Status post left knee replacement Procedures XR KNEE POST OP 3V AP/LAT/MERCHANT BILATERAL RADIOLOGIC EXAMINATION KNEE 3 VIEWS Lucas Levy PA-C [address] [place] [address] [place] [address] Referral ID Status Reason Start Date Expiration Date V isits Requested Visits Authorized [id number] Closed Auto-Generate d Referral 07/27/2023 08/25/2024 1 1 [facility] for referral (narrative)* Diagnostic Procedure Only (Routine) - Closed Specialty Diagnoses / Procedures Referred By Dany manrique Referred To Contact XR IMAGING Diagnoses Status post revision of total knee, right Status post left knee replacement Procedures XR KNEE POST OP 3V AP/LAT/MERCHANT BILATERAL RADIOLOGIC EXAMINATION KNEE 3 VIEWS Violet Combs MD [address] [place] [address] [place] [address] Referral ID Status Reason Start Date Expiration Date V isits Requested Visits Authorized [id number] Closed Auto-Generate d Referral 02/25/2023 03/26/2024 1 1 [facility] for referral (narrative)* Diagnostic Procedure Only (Routine) - Closed Specialty Diagnoses / Procedures Referred By Contac t Referred To Contact XR IMAGING Diagnoses S/P revision of total knee, right Procedures XR KNEE POST OP 3V AP/LAT/MERCHANT RIGHT RADIOLOGIC EXAMINATION KNEE 3 VIEWS Lucas Levy PA-C [address] [place] [address] [place] [address] Referral ID Status Reason Start Date Expiration Date V isits Requested Visits Authorized [id number] Closed Auto-Generate d Referral 09/06/2022 10/06/2023 1 1 [facility] for referral (narrative)* Diagnostic Procedure Only (Routine) - Closed Specialty Diagnoses / Procedures Referred By Contac t Referred To Contact XR IMAGING Diagnoses S/P right unicompartmental knee replacement Primary osteoarthritis of right knee Procedures XR KNEE GENERAL 4V AP BOTH/PA BOTH/LAT/MERC BILATERAL RADIOLOGIC EXAM KNEE COMPLETE 4/MORE VIEWS Violet Combs MD [address] [place] [address] [place] [address] Referral ID Status Reason Start Date Expiration Date V isits Requested Visits Authorized [id number] Closed Auto-Generate d Referral 05/26/2022 06/25/2023 1 1 [facility] for referral (narrative)* Diagnostic Procedure Only (Routine) - Closed Specialty Diagnoses / Procedures Referred By Contac t Referred To Contact XR IMAGING Diagnoses Status post left knee replacement S/P right unicompartmental knee replacement Procedures XR KNEE POST OP 3V AP/LAT/MERCHANT BILATERAL X-RAY KNEE 3+ VW Lucas Levy PA-C [address] [place] [address] [place] [address] Referral ID Status Reason Start Date Expiration Date V isits Requested Visits Authorized [id number] Closed Auto-Generate d Referral 08/02/2021 09/01/2022 1 1 [facility] for referral (narrative)* Diagnostic Procedure Only (Routine) - Closed Specialty Diagnoses / Procedures Referred By Contac t Referred To Contact XR IMAGING Diagnoses Status post left knee replacement S/P right unicompartmental knee replacement Procedures XR KNEE POST OP 3V AP/LAT/MERCHANT BILAT X-RAY KNEE 3+ VW Lucas Levy PA-C [address] [place] [address] [place] [address] Referral ID Status Reason Start Date Expiration Date V isits Requested Visits Authorized Closed Auto-Generate d Referral 03/26/2021 04/25/2022 1 1 [facility] for referral (narrative)No reason for referral information [facility] N[facility]* Diagnostic Procedure Only (Routine) - Closed Specialty Diagnoses / Procedures Referred By Contac t Referred To Contact XR IMAGING Diagnoses Status post revision of total knee, right Status post left knee replacement Procedures XR KNEE POST OP 3V AP/LAT/MERCHANT BILATERAL RADIOLOGIC EXAMINATION KNEE 3 VIEWS Lucas Levy PA-C [address] [place] [address] [place] [address] Referral ID Status Reason Start Date Expiration Date V isits Requested Visits Authorized [id number] Closed Auto-Generate d Referral 07/27/2023 08/25/2024 1 1 [facility] for visit Narrative* Diagnostic Procedure Only (Routine) - Closed Specialty Diagnoses / Procedures Referred By Contac t Referred To Contact XR IMAGING Diagnoses Status post revision of total knee, right Status post left knee replacement Procedures XR KNEE POST OP 3V AP/LAT/MERCHANT BILATERAL RADIOLOGIC EXAMINATION KNEE 3 VIEWS Violet Combs MD [address] [place] [address] [place] [address] Referral ID Status Reason Start Date Expiration Date V isits Requested Visits Authorized [id number] Closed Auto-Generate d Referral 02/25/2023 03/26/2024 1 1 [facility] for visit Narrative* Diagnostic Procedure Only (Routine) - Closed Specialty Diagnoses / Procedures Referred By Contac t Referred To Contact XR IMAGING Diagnoses S/P revision of total knee, right Procedures XR KNEE POST OP 3V AP/LAT/MERCHANT RIGHT RADIOLOGIC EXAMINATION KNEE 3 VIEWS Lucas Levy PA-C [address] [place] [address] [place] [address] Referral ID Status Reason Start Date Expiration Date V isits Requested Visits Authorized [id number] Closed Auto-Generate d Referral 09/06/2022 10/06/2023 1 1 [facility] for visit Narrative* Diagnostic Procedure Only (Routine) - Closed Specialty Diagnoses / Procedures Referred By Contac t Referred To Contact XR IMAGING Diagnoses S/P right unicompartmental knee replacement Pain due to unicompartmental arthroplasty of knee, subsequent encounter Procedures XR KNEE POST OP 3V AP/LAT/MERCHANT RIGHT RADIOLOGIC EXAMINATION KNEE 3 VIEWS Violet Combs MD [address] [place] [address] [place] [address] Referral ID Status Reason Start Date Expiration Date V isits Requested Visits Authorized [id number] Closed Auto-Generate d Referral 12/09/2021 07/17/2022 1 1 [facility] for visit Narrative* Diagnostic Procedure Only (Routine) - Closed Specialty Diagnoses / Procedures Referred By Contac t Referred To Contact XR IMAGING Diagnoses Status post left knee replacement S/P right unicompartmental knee replacement Procedures XR KNEE POST OP 3V AP/LAT/MERCHANT BILAT X-RAY KNEE 3+ VW Lucas Levy, PA-C [address] [place] [address] [place] [address] Referral ID Status Reason Start Date Expiration Date V isits Requested Visits Authorized Closed Auto-Generate d Referral 03/26/2021 04/25/2022 1 1 [facility] for visit Narrative* Diagnostic Procedure Only (Routine) - Closed Specialty Diagnoses / Procedures Referred By Dany manrique Referred To Contact Radiology / [facility] Diagnoses xray Procedures XR LIBRADO Violet Monterroso MD [address] [place] [address] [facility] [address] [place] [address] Referral ID Status Reason Start Date Expiration Date Visits Re quested Visits Authorized [id number] Closed 02/27/2020 03/17/2020 1 1 [facility] for visit Narrative* CV Imaging (Routine) - Authorized Specialty Diagnoses / Procedures Referred By Dany manrique Referred To Contact Cardiology Diagnoses Essential hypertension, benign S/P TAVR (transcatheter aortic valve replacement) Procedures Transthoracic Echo Complete VT ECHO TTHRC R-T 2D W/WOM-MODE COMPL SPEC&COLR D Josep Perdomo MD [address] 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 Executive Expl anation Advance Directive(s) 02/04/2020 11:42 AM [...] labs LABS E89.0 Chief Complaint Admit Date [facility] DOI 01/08/25 LT HAND FX WX [facility] December 172024 2:00pm Reason for Visit Admit Date Nondisplaced fracture of bas e of fifth metacarpal bone, left hand, initial January 09, 2025 2:00pm Chief Complaint Admit Date [facility] DOI 01/08/25 LT HAND FX WX [...] 13, 2025 10:56am Chief Complaint Admit Date [facility] DOI 01/08/25 LT HAND FX WX [...] aortic valve replacement) Procedures Transthoracic Echo Complete VT ECHO TTHRC R-T 2D W/WOM-MODE COMPL SPEC&COLR D Josep Perdomo MD [address] [place] [address] 2, [place] [phone] Referral ID Status Reason Start Date Expiration Date Visits Requested Visits Authorized [id number] Pending Review Perform Procedure 03/16/2024 03/16/2025 1 1 Specialty Diagnoses / Procedures Referred By Dany manrique Referred To Contact Cardiology Diagnoses Essential hypertension, benign Procedures Follow Up In Cardiology Josep Perdomo MD [address] [place], [place] [address]er [facility] 2, [address] [address] Josep Perdomo MD [address] [place], [place] [address]er [facility] 2, [address] [address] Referral ID Status Reason Start Date Expiration Date V isits Requested Visits Authorized [id number] Authorized 03/16/2024 03/16/2025 1 1 Additional Source Comments Source Comments (unrecognize d section and content) In the event this informatio n is protected by the Federal Confidentiality of Alcohol and Drug Abuse Patient Records regulations: The Federal rules restrict any use of the information to criminally investigate or prosecute any alcohol or drug abuse patient.[facility] the event this information is protected by the Federal Confidentiality of Alcohol and Drug Abuse Patient Records regulations: The Federal rules restrict any use of the information to criminally investigate or prosecute any alcohol or drug abuse patient.[facility] HospitalIn the event this information is protected by the Federal Confidentiality of Alcohol and Drug Abuse Patient Records regulations: The Federal rules restrict any use of the information to criminally investigate or prosecute any alcohol or drug abuse patient.[facility] the event this information is protected by the Federal Confidentiality of Alcohol and Drug Abuse Patient Records regulations: The Federal rules restrict any use of the information to criminally investigate or prosecute any alcohol or drug abuse patient.[facility] HospitalIn the event this information is protected by the Federal Confidentiality of Alcohol and Drug Abuse Patient Records regulations: The Federal rules restrict any use of the information to criminally investigate or prosecute any alcohol or drug abuse patient.[facility] HospitalIn the event this information is protected by the Federal Confidentiality of Alcohol and Drug Abuse Patient Records regulations: The Federal rules restrict any use of the information to criminally investigate or prosecute any alcohol or drug abuse patient.[facility] HospitalIn the event this information is protected by the Federal Confidentiality of Alcohol and Drug Abuse Patient Records regulations: The Federal rules restrict any use of the information to criminally investigate or prosecute any alcohol or drug abuse patient.[facility] HospitalIn the event this information is protected by the Federal Confidentiality of Alcohol and Drug Abuse Patient Records regulations: The Federal rules restrict any use of the information to criminally investigate or prosecute any alcohol or drug abuse patient.[facility] HospitalIn the event this information is protected by the Federal Confidentiality of Alcohol and Drug Abuse Patient Records regulations: The Federal rules restrict any use of the information to criminally investigate or prosecute any alcohol or drug abuse patient.[facility] HospitalIn the event this information is protected by the Federal Confidentiality of Alcohol and Drug Abuse Patient Records regulations: The Federal rules restrict any use of the information to criminally investigate or prosecute any alcohol or drug abuse patient.[facility] HospitalIn the event this information is protected by the Federal Confidentiality of Alcohol and Drug Abuse Patient Records regulations: The Federal rules restrict any use of the information to criminally investigate or prosecute any alcohol or drug abuse patient.[facility] HospitalIn the event this information is protected by the Federal Confidentiality of Alcohol and Drug Abuse Patient Records regulations: The Federal rules restrict any use of the information to criminally investigate or prosecute any alcohol or drug abuse patient.[facility] HospitalIn the event this information is protected by the Federal Confidentiality of Alcohol and Drug Abuse Patient Records regulations: The Federal rules restrict any use of the information to criminally investigate or prosecute any alcohol or drug abuse patient.[facility] HospitalIn the event this information is protected by the Federal Confidentiality of Alcohol and Drug Abuse Patient Records regulations: The Federal rules restrict any use of the information to criminally investigate or prosecute any alcohol or drug abuse patient.[facility] HospitalIn the event this information is protected by the Federal Confidentiality of Alcohol and Drug Abuse Patient Records regulations: The Federal rules restrict any use of the information to criminally investigate or prosecute any alcohol or drug abuse patient.[facility] HospitalIn the event this information is protected by the Federal Confidentiality of Alcohol and Drug Abuse Patient Records regulations: The Federal rules restrict any use of the information to criminally investigate or prosecute any alcohol or drug abuse patient.[facility] HospitalIn the event this information is protected by the Federal Confidentiality of Alcohol and Drug Abuse Patient Records regulations: The Federal rules restrict any use of the information to criminally investigate or prosecute any alcohol or drug abuse patient.[facility] HospitalIn the event this information is protected by the Federal Confidentiality of Alcohol and Drug Abuse Patient Records regulations: The Federal rules restrict any use of the information to criminally investigate or prosecute any alcohol or drug abuse patient.[facility] HospitalIn the event this information is protected by the Federal Confidentiality of Alcohol and Drug Abuse Patient Records regulations: The Federal rules restrict any use of the information to criminally investigate or prosecute any alcohol or drug abuse patient.[facility] HospitalIn the event this information is protected by the Federal Confidentiality of Alcohol and Drug Abuse Patient Records regulations: The Federal rules restrict any use of the information to criminally investigate or prosecute any alcohol or drug abuse patient.[facility] HospitalIn the event this information is protected by the Federal Confidentiality of Alcohol and Drug Abuse Patient Records regulations: The Federal rules restrict any use of the information to criminally investigate or prosecute any alcohol or drug abuse patient.[facility] HospitalIn the event this information is protected by the Federal Confidentiality of Alcohol and Drug Abuse Patient Records regulations: The Federal rules restrict any use of the information to criminally investigate or prosecute any alcohol or drug abuse patient.[facility] HospitalIn the event this information is protected by the Federal Confidentiality of Alcohol and Drug Abuse Patient Records regulations: The Federal rules restrict any use of the information to criminally investigate or prosecute any alcohol or drug abuse patient.[facility] HospitalIn the event this information is protected by the Federal Confidentiality of Alcohol and Drug Abuse Patient Records regulations: The Federal rules restrict any use of the information to criminally investigate or prosecute any alcohol or drug abuse patient.[facility] Reason for Visit (unrecogniz ed section and content) Reason Comments Radiology XR Specialty Diagnoses / Procedures Referred By Contac t Referred To Contact Radiology / [facility] Diagnoses left tkr - 1 year follow up Procedures XR LIBRADO Violet Monterroso MD [address] [place] [address] [facility] [place] [address] [place] [address] Referral ID Status Reason Start Date Expiration Date Visits Re quested Visits Authorized [id number] Closed 02/09/2021 05/10/2021 99 99 Reason Comments Results Reason Comments Forms Extend FMLA Specialty Diagnoses / Procedures Referred By Contac t Referred To Contact Orthopedics / ORTHOPAEDIC SURGERY Diagnoses Encounter for general adult medical examination without abnormal findings DISCUSS SURGERY- REVISION RIGHT TKR Procedures OFFICE/OUTPATIENT ESTABLISHED MOD MDM 30-39 MIN LIBRADO ESTABLISH Self Violet Combs MD [address] [place] [address] Referral ID Status Reason Start Date Expiration Date Visits Re quested Visits Authorized [id number] Closed 05/31/2022 07/17/2022 1 1 Reason Comments New Specialty Diagnoses / Procedures Referred By Contac t Referred To Contact Orthopedics / ORTHOPAEDIC SURGERY Diagnoses SEE DR. COMBS PRIOR TO SURGERY 08/19/22 Procedures OFFICE/OUTPATIENT ESTABLISHED MOD MDM 30-39 MIN LIBRADO ESTABLISH Self Violet Combs MD [address] [place] [address] Referral ID Status Reason Start Date Expiration Date Visits Re quested Visits Authorized [id number] Closed 08/05/2022 07/17/2023 1 1 Reason Comments Established Patient Follow Up Knee Replacement Specialty Diagnoses / Procedures Referred By Contac t Referred To Contact ORTHOPAEDIC SURGERY Diagnoses Encounter for follow-up examination after completed treatment for conditions other than malignant neoplasm Procedures FOLLOW-UP/REASSESSMENT Post Op Revision Knee Lucas Levy PA-C [address] [place] [address] [address] [place] [address] [place] [address] Referral ID Status Reason Start Date Expiration Date Visits Re quested Visits Authorized [id number] Closed 09/06/2022 12/05/2022 1 0 Reason Comments Established Patient Follow Up Knee Replacement Specialty Diagnoses / Procedures Referred By Contac t Referred To Contact Orthopedics / ORTHOPAEDIC SURGERY Diagnoses Follow-up examination POST OP REVISION KNEE Procedures OFFICE/OUTPATIENT ESTABLISHED MOD MDM 30-39 MIN [place] [address] [place] [address] Referral ID Status Reason Start Date Expiration Date Visits Re quested Visits Authorized [id number] Closed 09/29/2022 12/28/2022 1 0 Reason Comments Follow Up Established Patient Knee Replacement Specialty Diagnoses / Procedures Referred By Contac t Referred To Contact Orthopedics / ORTHOPAEDIC SURGERY Diagnoses Follow-up examination Follow up right knee - surgery Aug 2022 Procedures OFFICE/OUTPATIENT ESTABLISHED MOD MDM 30-39 MIN [place]RAD[place] [address] [place] [address] Referral ID Status Reason Start Date Expiration Date Visits Re quested Visits Authorized [id number] Closed 02/28/2023 07/17/2023 1 1 Specialty Diagnoses / Procedures Referred By Contac t Referred To Contact Orthopedics / ORTHOPAEDIC SURGERY Diagnoses Status post revision of total knee, right Status post left knee replacement BILATERAL KNEE PAIN FOLLOW UP Procedures OFFICE/OUTPATIENT ESTABLISHED MOD MDM 30 MIN LIBRADO ESTABLISH Self Lucas Levy PA-C [address] [place] [address] Referral ID Status Reason Start Date Expiration Date Visits Re quested Visits Authorized [id number] Closed 07/29/2023 07/17/2024 1 1 Reason Comments Follow-up Hypertension Specialty Diagnoses / Procedures Referred By Contac t Referred To Contact Radiology / [facility] Diagnoses Status post revision of total knee, right Status post left knee replacement BILATERAL KNEE XRAYS ORDER NEEDS LINKED Procedures RADIOLOGIC EXAMINATION KNEE 3 VIEWS XR LIBRADO GENERAL Self [facility] [address] [place] [address] Referral ID Status Reason Start Date Expiration Date Visits Re quested Visits Authorized [id number] Closed 07/29/2023 07/17/2024 1 1 Reason Comments Radiology XR Specialty Diagnoses / Procedures Referred By Contac t Referred To Contact XR IMAGING Diagnoses S/P right unicompartmental knee replacement Primary osteoarthritis of right knee Procedures XR KNEE GENERAL 4V AP BOTH/PA BOTH/LAT/MERC BILATERAL RADIOLOGIC EXAM KNEE COMPLETE 4/MORE VIEWS Violet Combs MD [address] [place] [address] [place] [address] Referral ID Status Reason Start Date Expiration Date V isits Requested Visits Authorized [id number] Closed Auto-Generate d Referral 05/26/2022 06/25/2023 1 1 Specialty Diagnoses / Procedures Referred By Gavinac t Referred To Contact XR IMAGING Diagnoses Status post left knee replacement S/P right unicompartmental knee replacement Procedures XR KNEE POST OP 3V AP/LAT/MERCHANT BILATERAL X-RAY KNEE 3+ VW Lucas Levy, PA-C [address] [place] [address] [place] [address] Referral ID Status Reason Start Date Expiration Date V isits Requested Visits Authorized [id number] Closed Auto-Generate d Referral 08/02/2021 09/01/2022 1 [...] Up In Cardiology Josep Perdomo MD [address] [facility] 2, [address] [address] Josep Perdomo MD [address] [place] [address], [address] [address] Referral ID Status Reason Start Date Expiration Date V isits Requested Visits Authorized [id number] Authorized 09/09/2023 09/08/2024 1 1 Reason Onset Date Comments Med Refill 10/15/2024 Reason Onset Date Comments Med Refill 11/12/2024 Reason Onset Date Comments Med Refill 01/14/2025 Reason Comments Annual Exam 1 year follow up for Mixed hyperlipidemia Specialty Diagnoses / Procedures Referred By Contgena t Referred To Contact Cardiology Diagnoses Essential hypertension, benign Procedures Follow Up In Cardiology Josep Perdomo MD [address] [place] [address], [address] [address] Phone: tel: fax: Josep Perdomo MD [address] [place] [address], [address] [address] Phone: tel: fax: Referral ID Status Reason Start Date Expiration Date V isits Requested Visits Authorized [id number] Authorized 03/16/2024 03/16/2025 1 1 Care Teams (unrecognized sec tion and content) Ironing Machine Operator Relationship Specialty Start Date End Date Oswaldo Grewal MD [address] [place] [address] PCP - General Family Practice 06/09/18 Ironing Machine Operator Relationship Specialty Start Date End Date Oswaldo Grewal MD [address] [place] [address] PCP - General Family Practice 06/09/18 Team Status: Inactive Member Role Status Dates Yajaira Bhardwaj APRN [employer]IN CAN FEEDER-C Primary Care Provider Natalya Perdomo MD Attending Provider Active Team Status: Inactive Member Role Status Dates Yajaira Bhardwaj APRN [employer] CAN FEEDER-Leonardo Primary Care Provider Activ amado Jordan MD Attending Provider Active Team Status: Active Member Role Status Dates Yajaira Bhardwaj APRN [employer] CAN FEEDER-C Primary Care Provider Activ e Ironing Machine Operator Relationship Specialty Start Date End Date Oswaldo Grewal MD [address] [place] [phone] PCP - General Family Medicine 06/09/18 Team Status: Inactive Member Role Status Dates Yajaira Bhardwaj APRN [employer] FEEDER-C Primary Care Provider Activ e Spenser Canchola DO Attending Provider Active Ironing Machine Operator Relationship Specialty Start Date End Date Oswaldo Grewal MD [address] [place] [address] PCP - General Family Medicine 06/09/18 Team Status: Inactive Member Role Status Dates Noemi Daniels NP Primary Care Provider Active Spenser Canchola DO Attending Provider Active Team Status: Active Member Role Status Dates Noemi Daniels NP Primary Care Provider Active Team Status: Inactive Member Role Status Dates Noemi Daniels NP Primary Care Provider, Attending Pro vider Active Ironing Machine Operator Relationship Specialty Start Date End Date Oswaldo Grewal MD [address] [place] [phone] PCP - General Family Medicine 06/09/18 Ironing Machine Operator Relationship Specialty Start Date End Date Oswaldo Grewal MD [address] [place] [phone] PCP - General Family Medicine 06/09/18 Josep Perdomo A [address] [place] [address], [place] [address] Cardiology 08/04/22 Ironing Machine Operator Relationship Specialty Start Date End Date Oswaldo Grewal MD [address] [place] [phone] PCP - General Family Medicine 06/09/18 Sarah Perdomof A [address] [place] [address], [place] [address] Cardiology 08/04/22 Ironing Machine Operator Relationship Specialty Start Date End Date Oswaldo Grewal MD [address] [place] [phone] PCP - General Family Medicine 06/09/18 [facility] A [address] [place] [facility] [place] [address] Cardiology 08/04/22 Ironing Machine Operator Relationship Specialty Start Date End Date Oswaldo Grewal MD [address] [place] [address] PCP - General Family Medicine 06/09/18 Quoc Perdomof A [address] [place] [facility] [place] [address] Cardiology 08/04/22 Ironing Machine Operator Relationship Specialty Start Date End Date Oswaldo Grewal MD [address] [place] [address] PCP - General Family Medicine 06/09/18 [facility] [address] [place] [address] Cardiology 08/04/22 Ironing Machine Operator Relationship Specialty Start Date End Date Oswaldo Grweal MD [address] [place] [address] PCP - General Family Medicine 06/09/18 [facility] [address] [place] [facility] [place] [address] Cardiology 08/04/22 Ironing Machine Operator Relationship Specialty Start Date End Date Oswaldo Grewal MD [address] [place] [address] PCP - General Family Medicine 06/09/18 Josep Perdomo [address] [place] [phone] Cardiology 08/04/22 Ironing Machine Operator Relationship Specialty Start Date End Date Oswaldo Grewal MD [address] [place] [address] PCP - General Family Medicine 06/09/18 Josep Perdomo [address] [place] [phone] Cardiology 08/04/22 Ironing Machine Operator Relationship Specialty Start Date End Date Oswaldo Grewal MD [address] [place] [address] PCP - General Family Medicine 06/09/18 Josep Perdomo MD [address] [place] [address] Cardiology 08/04/22 Ironing Machine Operator Relationship Specialty Start Date End Date Oswaldo Grewal MD [place] [address] [place] [phone] PCP - General 12/18/18 Ironing Machine Operator Relationship Specialty Start Date End Date Oswaldo Grewal MD [address] [place] [address] PCP - General Family Medicine 06/09/18 Josep Perdomo MD [address] [place] [address] Cardiology 08/04/22 Ironing Machine Operator Relationship Specialty Start Date End Date Oswaldo Grewal MD [address] [place] [address] PCP - General Family Medicine 06/09/18 Josep Perdomo MD [address] [place] [address] Cardiology 08/04/22 Ironing Machine Operator Relationship Specialty Start Date End Date Oswaldo Grewal MD [address] [place] [address] PCP - General Family Medicine 06/09/18 Josep Perdomo MD [address] [place] [address] Cardiology 08/04/22 Ironing Machine Operator Relationship Specialty Start Date End Date Oswaldo Grewal MD [address] [place] [address] PCP - General Family Medicine 06/09/18 Josep Perdomo MD [address] [place] [address] Cardiology 08/04/22 Ironing Machine Operator Relationship Specialty Start Date End Date Oswaldo Grewal MD [address] [place] [address] PCP - General Family Medicine 06/09/18 Ironing Machine Operator Relationship Specialty Start Date End Date Oswaldo Grewal MD [address] [place] [address] PCP - General Family Medicine 06/09/18 Ironing Machine Operator Relationship Specialty Start Date End Date Oswaldo Grewal MD [address] [place] [address] PCP - General Family Medicine 06/09/18 Ironing Machine Operator Relationship Specialty Start Date End Date Oswaldo Grewal MD [address] [place] [address] PCP - General Family Medicine 06/09/18 Ironing Machine Operator Relationship Specialty Start Date End Date Oswaldo Grewal MD [address] [place] [address] PCP - General Family Medicine 06/09/18 Ironing Machine Operator Relationship Specialty Start Date End Date Oswaldo Grewal MD [address] [place] [phone] PCP - General Family Medicine 06/09/18 Ironing Machine Operator Relationship Specialty Start Date End Date Oswaldo Grewal MD [address] [place] [phone] PCP - General Family Medicine 12/04/22 Guerline Obrien NP [address] [place] [address] Nurse Practitioner Pulmonary Disease 09/20/23 Noemi Argueta NP [address] [place], [place] [phone] Nurse Practitioner Family Medicine 09/20/23 Ironing Machine Operator Relationship Specialty Start Date End Date Oswaldo Grewal MD [address] [place] [address] PCP - General Family Medicine 12/04/22 Guerline Obrien TIN CAN FEEDER [address] [place] [address] Nurse Practitioner Pulmonary Disease 09/20/23 Noemi Argueta, TIN CAN FEEDER [address] [place] [address] Nurse Practitioner Family Medicine 09/20/23 Ironing Machine Operator Relationship Specialty Start Date End Date Oswaldo Grewal MD [address] [place] [phone] PCP - General Family Medicine 12/04/22 Guerline Obrien NP [address] [place] [address] Nurse Practitioner Pulmonary Disease 09/20/23 Noemi Argueta, TIN CAN FEEDER [address] [place] [phone] Nurse Practitioner Family Medicine 09/20/23 Ironing Machine Operator Relationship Specialty Start Date End Date Oswaldo Grewal MD [address] [place] [address] PCP - General Family Medicine 12/04/22 Guerline Obrien, TIN CAN FEEDER [address] [place] [address] Nurse Practitioner Pulmonary Disease 09/20/23 Noemi Argueta, KEO [address] [place] [address] Nurse Practitioner Family Medicine 09/20/23 Ironing Machine Operator Relationship Specialty Start Date End Date Oswaldo Grewal MD [address] [place] [address] PCP - General Family Medicine 12/04/22 Guerline Obrien, TIN CAN FEEDER [address] [place] [address] Nurse Practitioner Pulmonary Disease 09/20/23 Noemi Argueta NP [address] [place] [address] Nurse Practitioner Family Medicine 09/20/23 Ironing Machine Operator Relationship Specialty Start Date End Date Oswaldo Grewal MD [address] [place] [address] PCP - General Family Medicine 12/04/22 Guerline Obrien, [employer] [address] [place] [phone] Nurse Practitioner Pulmonary Disease 09/20/23 Noemi Argueta NP [address] [place] [address] Nurse Practitioner Family Medicine 09/20/23 Ironing Machine Operator Relationship Specialty Start Date End Date Oswaldo Grewal MD [address] [place] [address] PCP - General Family Medicine 12/04/22 Guerline Obrien NP [address] [place] [phone] Nurse Practitioner Pulmonary Disease 09/20/23 Noemi Argueta NP [address] [place] [address] Nurse Practitioner Family Medicine 09/20/23 Ironing Machine Operator Relationship Specialty Start Date End Date Oswaldo Grewal MD [address] [place] [address] PCP - General Family Medicine 12/04/22 Guerline Obrien NP [address] [place] [address] Nurse Practitioner Pulmonary Disease 09/20/23 Noemi Argueta NP [address] [place] [address] Nurse Practitioner Family Medicine 09/20/23 Ironing Machine Operator Relationship Specialty Start Date End Date Oswaldo Grewal MD [place] [address] [place] [phone] PCP - General 12/18/18 Ironing Machine Operator Relationship Specialty Start Date End Date Oswaldo Grewal MD [address] [place] [address] PCP - General Family Medicine 12/04/22 Guerline Obrien NP [address] [place] [phone] Nurse Practitioner Pulmonary Disease 09/20/23 Noemi Argueta NP [address] [place] [address] Nurse Practitioner Family Medicine 09/20/23 Ironing Machine Operator Relationship Specialty Start Date End Date Oswaldo Grewal MD [address] [place] [address] PCP - General Family Medicine 12/04/22 Guerline Obrien NP [address] [place] [address] Nurse Practitioner Pulmonary Disease 09/20/23 Noemi Argueta NP [address] [place] [address] Nurse Practitioner Family Medicine 09/20/23 Ironing Machine Operator Relationship Specialty Start Date End Date Oswaldo Grewal MD [address] [place] [address] PCP - General Family Medicine 12/04/22 Guerline Obrien NP [address] [place] [address] Nurse Practitioner Pulmonary Disease 09/20/23 Noemi Argueta NP [address] [place] [address] Nurse Practitioner Family Medicine 09/20/23 Ironing Machine Operator Relationship Specialty Start Date End Date Oswaldo Grewal MD [address] [place] [address] PCP - General Family Medicine 12/04/22 Guerline Obrien NP [address] [place] [address] Nurse Practitioner Pulmonary Disease 09/20/23 Noemi Argueta NP [address] [place] [address] Nurse Practitioner Family Medicine 09/20/23 Ironing Machine Operator Relationship Specialty Start Date End Date Oswaldo Grewal MD [address] [place] [address] PCP - General Family Medicine 12/04/22 Guerline Obrien NP [address] [place] [address] Nurse Practitioner Pulmonary Disease 09/20/23 Noemi Argueta NP [address] [place] [address] Nurse Practitioner Family Medicine 09/20/23 Ironing Machine Operator Relationship Specialty Start Date End Date Oswaldo Grewal MD [address] [place] [address] PCP - General Family Medicine 12/04/22 Guerline Obrien NP [address] [place] [phone] Nurse Practitioner Pulmonary Disease 09/20/23 Noemi Argueta NP [address] [place] [address] Nurse Practitioner Family Medicine 09/20/23 Ironing Machine Operator Relationship Specialty Start Date End Date Oswaldo Grewal MD [address] [place] [address] PCP - General Family Medicine 12/04/22 Guerline Obrien NP [address] [place] [phone] Nurse Practitioner Pulmonary Disease 09/20/23 Noemi Argueta NP [address] [place] [address] Nurse Practitioner Family Medicine 09/20/23 Ironing Machine Operator Relationship Specialty Start Date End Date Oswaldo Grewal MD [address] [place] [address] PCP - General Family Medicine 12/04/22 Guerline Obrien NP [address] [place] [address] Nurse Practitioner Pulmonary Disease 09/20/23 Noemi Argueta NP [address] [place] [address] Nurse Practitioner Family Medicine 09/20/23 Ironing Machine Operator Relationship Specialty Start Date End Date Oswaldo Grewal MD [address] [place] [address] PCP - General Family Medicine 12/04/22 Guerline Obrien NP [address] [place] [phone] Nurse Practitioner Pulmonary Disease 09/20/23 Noemi Argueta NP [address] [place] [address] Nurse Practitioner Family Medicine 09/20/23 Team Status: Active Member Role Status Dates Oswaldo Grewal MD Primary Care Provider Active Team Status: Inactive Member Role Status Dates Esther Palomares MD Attending Provider Active Start: January 09, 2025 End: January 09, 2025 Oswaldo Grewal MD Primary Care Provider Active S tart: January 09, 2025 End: January 09, 2025 Ironing Machine Operator Relationship Specialty Start Date End Date Oswaldo Grewal MD [address] [place] [address] PCP - General Family Medicine 12/04/22 Guerline Obrien NP [address] [place] [phone] Nurse Practitioner Pulmonary Disease 09/20/23 Ironing Machine Operator Relationship Specialty Start Date End Date Oswaldo Grewal MD [address] [place] [address] PCP - General Family Medicine 12/04/22 Guerline Obrien NP [address] [place] [address] Nurse Practitioner Pulmonary Disease 09/20/23 Ironing Machine Operator Relationship Specialty Start Date End Date Oswaldo Grewal MD [address] [place] [address] PCP - General Family Medicine 12/04/22 Guerline Obrien NP [address] [place] [phone] Nurse Practitioner Pulmonary Disease 09/20/23 Ironing Machine Operator Relationship Specialty Start Date End Date Oswaldo Grewal MD [address] [place] [address] PCP - General 12/18/18 Team Status: Active [...] February 13, 2025 End: February 13, 2025 Ironing Machine Operator Relationship Specialty Start Date End Date Oswaldo Grewal MD [address] [place] [address] PCP - General Family Medicine 12/04/22 Guerline Obrien NP [address] [place] [address] Nurse Practitioner Pulmonary Disease 09/20/23 Ironing Machine Operator Relationship Specialty Start Date End Date Oswaldo Grewal MD [address] [place] [address] PCP - General 12/18/18 Team Status: Active Member Role Status Dates Oswaldo Grewal MD Primary Care Provider Active S tart: March 19, 2025 Esther Paloamres MD Attending Provider Active Start: March 19, [...] section and content) DATE CREATED AUTHOR 08/21/2022 [facility] DATE CREATED AUTHOR AUTHOR'S ORGANIZ ATION 10/10/2022 [facility] DATE CREATED AUTHOR AUTHOR'S ORGANIZ ATION 03/18/2023 [facility] DATE CREATED AUTHOR AUTHOR'S ORGANIZ ATION 03/18/2023 [employer] DATE CREATED AUTHOR AUTHOR'S ORGANIZ ATION 09/04/2023 [facility] DATE CREATED AUTHOR AUTHOR'S ORGANIZ ATION 08/08/2024 [facility] DATE CREATED AUTHOR AUTHOR'S ORGANIZ ATION 02/03/2025 [facility] DATE CREATED AUTHOR AUTHOR'S ORGANIZ ATION 02/08/2025 [facility] DATE CREATED AUTHOR AUTHOR'S ORGANIZ ATION 03/17/2025 [facility] DATE CREATED AUTHOR AUTHOR'S ORGANIZ ATION 03/21/2025 [facility] FOR RECORDS PERTAINING TO PATIENTS [...] BE BASED ON THE PRIMARY CLINICAL RECORDS. [employer] [facility] provides no warranty or guarantee of the accuracy or completeness of information in this document.
[2025-04-06 10:12] LABS: Alanine Aminotransferase 25 U/L (14-59); Aspartate Amino Transferase 16 U/L (15-37)
== END 2025-04-06 08:46 | disposition home or self-care (01) ==
LOC: LAB 08:47
PROVIDERS: PCP Family Medicine; Visit Provider Internal Medicine Cardiovascular Disease
DX: E78.2 Mixed hyperlipidemia (principal); I10 Essential (primary) hypertension; Z95.2 Presence of prosthetic heart valve
CPT/HCPCS: 36415; 84450; 84460